=== PATIENT | male | born 1950 | race Caucasian/White ===

== ENCOUNTER → 2016-03-21 | Outpatient (CLI) | payer MEDICARE ==
[2016-03-21 10:56] LABS: ALT 33 U/L (21-72); AST 23 U/L (17-59); Alkaline Phosphatase 71 U/L (38-126); Anion Gap 16 mmol/L; Blood Urea Nitrogen 18 mg/dL (9-20); Calcium 9.8 mg/dL (8.4-10.2); Carbon Dioxide 24 mmol/L (22-30); Chloride 104 mmol/L (98-107); Cholesterol 141 mg/dL (<200); Glucose 79 mg/dL (74-99); HDL Cholesterol 33 mg/dL (40-60); Non-African American GFR(MDRD) >60 (>60 ml/min/1.73 sqM); Potassium 4.3 mmol/L (3.5-5.1); Sodium 144 mmol/L (137-145); Total Bilirubin 0.4 mg/dL (0.2-1.3); Total Protein 7.3 g/dL (6.3-8.2); Triglycerides 223 mg/dL (<150)
[2016-03-21 10:58] LABS: Hemoglobin A1C 10.4 % (4.2-6.1)
== END | disposition home or self-care (01) ==
LOC: LABWHC1 09:54
PROVIDERS: ATTEND Internal Medicine Endocrinology, Diabetes & Metabolism
DX: E11.65 Type 2 diabetes mellitus with hyperglycemia (principal); E78.5 Hyperlipidemia, unspecified; I10 Essential (primary) hypertension
CPT/HCPCS: 36415; 80053; 80061; 82043; 83036

== ENCOUNTER → 2016-07-11 | Outpatient (CLI) | payer MEDICARE ==
[2016-07-11 10:37] LABS: Anion Gap 7 mmol/L; Blood Urea Nitrogen 21 mg/dL (9-20); Calcium 9.5 mg/dL (8.4-10.2); Carbon Dioxide 26 mmol/L (22-30); Chloride 104 mmol/L (98-107); Glucose 181 mg/dL (74-99); Non-African American GFR(MDRD) >60 (>60 ml/min/1.73 sqM); Potassium 4.9 mmol/L (3.5-5.1); Sodium 137 mmol/L (137-145)
[2016-07-11 11:50] LABS: Hemoglobin A1C 9.7 % (4.2-6.1)
== END ==
LOC: LABWHC1 09:33
PROVIDERS: ATTEND Internal Medicine
DX: E11.9 Type 2 diabetes mellitus without complications (principal); Z12.5 Encounter for screening for malignant neoplasm of prostate
CPT/HCPCS: 80048; 83036; 36415; G0103

== ENCOUNTER → 2016-11-08 | Outpatient (CLI) | payer MEDICARE ==
[2016-11-08 08:34] LABS: Anisocytosis Slight; Basophils % (A) 0 %; CH 29.5; CHCM 32.5; Eosinophils % (A) 1 %; HCT 38.9 % (39.0-53.0); HDW 2.77; HGB 12.3 gm/dL (13.0-17.5); Luc % (Auto) 2; Lymphocytes # (A) 1.4 k/uL (1.0-4.8); Lymphocytes % (A) 15 %; MCH 28.8 pg (25.0-35.0); MCHC 31.6 g/dL (31.0-37.0); MCV 91.2 fL (80.0-100.0); Mean Platelet Volume 8.7; Monocytes # (A) 0.4 k/uL (0-1.0); Monocytes % (A) 5 %; Neutrophils # (A) 7.2 k/uL (1.3-7.7); Neutrophils % (A) 77 %; RBC 4.27 m/uL (4.30-5.90); RDW 16.1 % (11.5-15.5); WBC 9.3 k/uL (3.8-10.6); WBC (Perox) 9.88
[2016-11-08 08:50] LABS: Anion Gap 11 mmol/L; Blood Urea Nitrogen 17 mg/dL (9-20); Calcium 8.7 mg/dL (8.4-10.2); Carbon Dioxide 27 mmol/L (22-30); Chloride 105 mmol/L (98-107); Cholesterol 158 mg/dL (<200); Glucose 71 mg/dL (74-99); HDL Cholesterol 37 mg/dL (40-60); Non-African American GFR(MDRD) >60 (>60 ml/min/1.73 sqM); Sodium 143 mmol/L (137-145)
[2016-11-08 14:36] LABS: Hemoglobin A1C 7.2 % (4.2-6.1)
== END | disposition home or self-care (01) ==
LOC: LABWHC1 08:07
PROVIDERS: ATTEND Podiatrist
DX: E13.621 Other specified diabetes mellitus with foot ulcer (principal); E78.5 Hyperlipidemia, unspecified
CPT/HCPCS: 36415; 80048; 80061; 83036; 84134; 85025

== ENCOUNTER → 2017-05-11 | Outpatient (CLI) | payer MEDICARE ==
--- NOTE | 2017-05-11 10:55 | US ---
LOWER EXTREMITY VENOUS INSUFFICIENCY SIDE PERFORMED: bilateral Morbidly obese patient with swelling bilateral worse on left. 1) Color flow is present and patency is documented in the following vessels. No DVT or SVT is noted . EIV Common Femoral Vein Deep Femoral Vein Femoral Vein Popliteal Vein Proximal Calf Veins-not seen due to obesity and swelling Greater Saph Vein Upper Small Saph Vein 2) There is venous reflux noted at the following venous levels: Right: mild in CFV Left: DFV, Popliteal v, SSV IMPRESSION: 1. No evidence of deep venous thrombosis or superficial venous thrombosis within the bilateral lower extremities. Note there is nonvisualization of the proximal calf veins due to patient body habitus. 2. Venous reflux noted on the right within the common femoral vein and on the left within the deep fe moral vein, popliteal vein and small saphenous vein.
--- NOTE | 2017-05-13 10:37 | P.ARTDOP ---
Arterial Doppler LOWER EXTREMITY ARTERIAL DOPPLER: DATE OF SERVICE: 05/11/2017 Reason for study: Ulcers bilateral lower extremities right foot and left leg. Doppler waveforms: Multiphasic bilaterally throughout. Pulse volume recording: Normal configuration. Pressure gradients: None. Ankle-brachial indices: Greater than 1 bilaterally. Toe pressures: [] on the right, [] on the left Impression: Normal study.
== END | disposition home or self-care (01) ==
LOC: RADUSWWP 08:56
PROVIDERS: ATTEND Podiatrist
DX: I87.8 Other specified disorders of veins (principal); M86.8X8 Other osteomyelitis, other site
CPT/HCPCS: 93923; 93970

== ENCOUNTER 2017-05-15 10:10 | Inpatient (IN) | payer MEDICARE ==
[2017-05-15] MEDS ORDERED: SODIUM CHLORIDE 0.9% 500 ML IV SCH (11:15)
[2017-05-15] MEDS ORDERED: PIPERACILLIN-TAZOBACTAM 3.375 GM in DEXTROSE/WATER 1 50ML.BAG IVPB STA (11:17)
--- NOTE | 2017-05-15 11:17 | ED ---
General Adult HPI - General Chief complaint: Wound/Laceration Stated complaint: INFECTION RT FOOT Time Seen by Provider: 05/15/17 10:40 Source: patient, family, RN notes reviewed Mode of arrival: wheelchair Limitations: physical limitation - History of Present Illness Initial comments: Patient is a pleasant [age]-year-old male presenting to the emergency Department with right foot infection. Patient does have history of multiple previous foot problems. Patient did have an ulcer. Patient does go regulate to wound center. Patient had also removed today and large amount of pus came out. Patient did have tracking to almost the midfoot on the plantar portion. Patient had the foot packed by Dr. Holley. Patient was advised come to the emergency department for IV antibiotics. - Related Data Home Medications Medication Instructions Recorded Confirmed Aspirin 81 mg PO DAILY 11/10/14 05/15/17 Benazepril/Hydrochlorothiazide 1 tab PO DAILY 11/10/14 05/15/17 [Lotensin Hct 20-12.5 mg Tablet] Insulin Aspart Protam & Aspart 83 unit SQ AC-TID 11/10/14 05/15/17 [NovoLOG MIX 70-30 Flexpen] diphenhydrAMINE HCL [Benadryl] 25 mg PO DAILY 11/10/14 05/15/17 metFORMIN HCL [Glucophage] 1,000 mg PO BID 11/10/14 05/15/17 Ibuprofen [Motrin] 800 mg PO TID PRN 04/03/17 05/15/17 Atorvastatin Calcium [Lipitor] 20 mg PO DAILY 05/15/17 05/15/17 Furosemide [Lasix] 20 mg PO DAILY 05/15/17 05/15/17 Allergies Allergy/AdvReac Type Severity Reaction Status Date / Time No Known Allergies Allergy Verified 05/15/17 10:45 Review of Systems ROS Statement: Those systems with pertinent positive or pertinent negative responses have been documented in the HPI. ROS Other: All systems not noted in ROS Statement are negative. Constitutional: Denies: fever, chills Eyes: Denies: eye pain ENT: Denies: ear pain Respiratory: Denies: cough Cardiovascular: Denies: chest pain Endocrine: Denies: fatigue Gastrointestinal: Denies: abdominal pain Genitourinary: Denies: dysuria Musculoskeletal: Denies: back pain Skin: Reports: rash Past Medical History Past Medical History: Diabetes Mellitus, Hyperlipidemia, Hypertension Additional Past Medical History / Comment(s): chronic wound History of Any Multi-Drug Resistant Organisms: MRSA Date of last positivie culture/infection: 12/22/2014 MDRO Source:: left leg Past Surgical History: Heart Catheterization, Hernia Repair Additional Past Surgical History / Comment(s): bilateral great toes amputated, 2nd toe lt foot partial amputation Past Anesthesia/Blood Transfusion Reactions: No Reported Reaction Past Psychological History: No Psychological Hx Reported Smoking Status: Light tobacco smoker Past Alcohol Use History: Occasional Past Drug Use History: None Reported - Past Family History Father Family Medical History: Cancer Additional Family Medical History / Comment(s): brain cancer Mother Additional Family Medical History / Comment(s): glaucoma General Exam Limitations: physical limitation General appearance: alert, in no apparent distress, obese Head exam: Present: atraumatic Eye exam: Present: normal appearance, PERRL ENT exam: Present: normal oropharynx Neck exam: Present: normal inspection Respiratory exam: Present: normal lung sounds bilaterally Cardiovascular Exam: Present: regular rate, normal rhythm Expanded Peripheral pulses: 1+: Dorsalis Pedis (R) GI/Abdominal exam: Present: soft. Absent: tenderness Extremities exam: Present: other (Right foot with cellulitis extending to the proximal foot on the dorsal side. Plantar lateral distal foot with ulcer with packing present. Patient does have previous amputations. Cap refill less than 2 seconds.) Neurological exam: Present: alert Psychiatric exam: Present: normal affect, normal mood Skin exam: Present: erythema Course Vital Signs 05/15/17 05/15/17 10:26 11:39 Temperature 97.6 F Pulse Rate 65 Respiratory 18 Rate Blood Pressure 210/79 155/65 O2 Sat by Pulse 99 Oximetry - Reevaluation(s) Reevaluation #1: 05/15/17 12:31 Patient does not meet sepsis criteria at this time. Medical Decision Making - Medical Decision Making Case discussed in detail with Dr. Benson, who will admit his patient with consult with Dr. Greco. He does recommend continuing Zosyn and adding vancomycin. Patient updated. - Lab Data Result diagrams: 05/15/17 11:02 05/15/17 11:02 Lab Results 05/15/17 05/15/17 05/15/17 Range/Units 11:02 11:02 11:02 WBC 8.8 (3.8-10.6) k/uL RBC 4.08 L (4.30-5.90) m/uL Hgb 11.7 L (13.0-17.5) gm/dL Hct 35.4 L (39.0-53.0) % MCV 86.6 (80.0-100.0) fL MCH 28.7 (25.0-35.0) pg MCHC 33.1 (31.0-37.0) g/dL RDW 15.2 (11.5-15.5) % Plt Count 255 (150-450) k/uL Neutrophils % 73 % Lymphocytes % 16 % Monocytes % 6 % Eosinophils % 3 % Basophils % 0 % Neutrophils # 6.4 (1.3-7.7) k/uL Lymphocytes # 1.4 (1.0-4.8) k/uL Monocytes # 0.5 (0-1.0) k/uL Eosinophils # 0.2 (0-0.7) k/uL Basophils # 0.0 (0-0.2) k/uL PT (9.0-12.0) sec INR (<1.2) APTT (22.0-30.0) sec Sodium 142 (137-145) mmol/L Potassium 5.2 H (3.5-5.1) mmol/L Chloride 105 (98-107) mmol/L Carbon Dioxide 26 (22-30) mmol/L Anion Gap 11 mmol/L BUN 25 H (9-20) mg/dL Creatinine 0.80 (0.66-1.25) mg/dL Est GFR (MDRD) Af Amer >60 (>60 ml/min/1.73 sqM) Est GFR (MDRD) Non-Af >60 (>60 ml/min/1.73 sqM) Glucose 199 H (74-99) mg/dL Plasma Lactic Acid Ata 1.8 (0.7-2.0) mmol/L Calcium 9.7 (8.4-10.2) mg/dL Total Bilirubin 0.4 (0.2-1.3) mg/dL AST 18 (17-59) U/L ALT 24 (21-72) U/L Alkaline Phosphatase 87 (38-126) U/L Total Protein 7.6 (6.3-8.2) g/dL Albumin 4.1 (3.5-5.0) g/dL 05/15/17 Range/Units 11:02 WBC (3.8-10.6) k/uL RBC (4.30-5.90) m/uL Hgb (13.0-17.5) gm/dL Hct (39.0-53.0) % MCV (80.0-100.0) fL MCH (25.0-35.0) pg MCHC (31.0-37.0) g/dL RDW (11.5-15.5) % Plt Count (150-450) k/uL Neutrophils % % Lymphocytes % % Monocytes % % Eosinophils % % Basophils % % Neutrophils # (1.3-7.7) k/uL Lymphocytes # (1.0-4.8) k/uL Monocytes # (0-1.0) k/uL Eosinophils # (0-0.7) k/uL Basophils # (0-0.2) k/uL PT 10.2 (9.0-12.0) sec INR 1.0 (<1.2) APTT 24.1 (22.0-30.0) sec Sodium (137-145) mmol/L Potassium (3.5-5.1) mmol/L Chloride (98-107) mmol/L Carbon Dioxide (22-30) mmol/L Anion Gap mmol/L BUN (9-20) mg/dL Creatinine (0.66-1.25) mg/dL Est GFR (MDRD) Af Amer (>60 ml/min/1.73 sqM) Est GFR (MDRD) Non-Af (>60 ml/min/1.73 sqM) Glucose (74-99) mg/dL Plasma Lactic Acid Ata (0.7-2.0) mmol/L Calcium (8.4-10.2) mg/dL Total Bilirubin (0.2-1.3) mg/dL AST (17-59) U/L ALT (21-72) U/L Alkaline Phosphatase (38-126) U/L Total Protein (6.3-8.2) g/dL Albumin (3.5-5.0) g/dL - Radiology Data Radiology results: image reviewed (X-ray right foot: Correlate for cellulitis.) Disposition Clinical Impression: Cellulitis Disposition: ADMITTED IP TO THIS [facility] Referrals: Roscoe Benson MD [Primary Care Provider] - 1-2 days Decision Time: 12:31
[2017-05-15 11:20] LABS: Basophils % (A) 0 %; Eosinophils # (A) 0.2 k/uL (0-0.7); Eosinophils % (A) 3 %; HCT 35.4 % (39.0-53.0); HGB 11.7 gm/dL (13.0-17.5); Lymphocytes # (A) 1.4 k/uL (1.0-4.8); Lymphocytes % (A) 16 %; MCH 28.7 pg (25.0-35.0); MCHC 33.1 g/dL (31.0-37.0); MCV 86.6 fL (80.0-100.0); Mean Platelet Volume 8.3; Monocytes # (A) 0.5 k/uL (0-1.0); Monocytes % (A) 6 %; Neutrophils # (A) 6.4 k/uL (1.3-7.7); Neutrophils % (A) 73 %; Platelet Count 255 k/uL (150-450); RBC 4.08 m/uL (4.30-5.90); RDW 15.2 % (11.5-15.5); WBC 8.8 k/uL (3.8-10.6)
[2017-05-15 11:30] LABS: ALT 24 U/L (21-72); AST 18 U/L (17-59); Albumin 4.1 g/dL (3.5-5.0); Alkaline Phosphatase 87 U/L (38-126); Anion Gap 11 mmol/L; Blood Urea Nitrogen 25 mg/dL (9-20); Calcium 9.7 mg/dL (8.4-10.2); Carbon Dioxide 26 mmol/L (22-30); Chloride 105 mmol/L (98-107); Glucose 199 mg/dL (74-99); Potassium 5.2 mmol/L (3.5-5.1); Sodium 142 mmol/L (137-145); Total Bilirubin 0.4 mg/dL (0.2-1.3); Total Protein 7.6 g/dL (6.3-8.2)
--- NOTE | 2017-05-15 11:48 | XR ---
EXAMINATION TYPE: XR foot complete RT DATE OF EXAM: 05/15/2017 COMPARISON: NONE HISTORY: Infection along the plantar surface of the foot TECHNIQUE: Three views are submitted. FINDINGS: Previous amputation of the first digit noted. There is marked deformity of the third digit which appe ars chronic. Diffuse soft tissue swelling noted. Soft tissue ossification adjacent to the base of the fifth digit. Appears to be a small ulceration adjacent to the fifth digit but no osseous destruction or cortical erosion. IMPRESSION: 1. Correlate for cellulitis.
[2017-05-15 12:11] LABS: Partial Thromboplastin Time 24.1 sec (22.0-30.0); Prothrombin Time 10.2 sec (9.0-12.0)
[2017-05-15] MEDS ORDERED: NALOXONE 0.4 MG/ML 1 ML VIAL IV PRN (12:31)
[2017-05-15] MEDS ORDERED: VANCOMYCIN IV PER PHARMACY 1 EACH MISC MISCELLANE PRN (12:32)
[2017-05-15] MEDS ORDERED: IBUPROFEN 800 MG TAB PO PRN (13:46)
[2017-05-15] MEDS ORDERED: diphenhydrAMINE 25 MG CAP PO PRN (13:46)
[2017-05-15 13:53] LABS: Glucose,Whole Blood 141 mg/dL (75-99)
[2017-05-15] MEDS: SODIUM CHLORIDE 0.9% 1,000 ML IV SCH (13:58)
[2017-05-15] MEDS: VANCOMYCIN 2,250 MG in SODIUM CHLORIDE 0.9% 500 ML IVPB SCH (15:28)
--- NOTE | 2017-05-15 16:53 | CONS ---
CONSULTATION DATE OF SERVICE: 05/15/2017 REASON FOR CONSULTATION: Right diabetic foot infection. HISTORY OF PRESENT ILLNESS: The patient is a 66-year-old male who currently is being followed at [facility] by Dr. Holley for a wound on the plantar aspect of his right foot at the base of the fifth toe that apparently has been going on for almost a month. The patient did develop a blister on the right foot lateral border at the base of the fifth toe for the last 2 days. It is not very clear how it started, with no new shoes. He also has significant swelling and redness on the dorsum of his right foot. The patient was evaluated by Dr. Holley in the wound care center today, and when he took the skin of the blister off, he noted a wound that was out significantly deep to almost 5 cm. Patient did have drainage of pus. Wound cultures were obtained. Because of cellulitis, patient was sent to the [facility] ER for admission. The patient was evaluated by the ER physician, where the patient had an x-ray which showed evidence of cellulitis but no bony changes. The patient denies any high-grade fever. He did have a low-grade fever of 99 in the ER and white count normal at 8.8. He was started on broad-spectrum antibiotics in the form of vancomycin and Zosyn because of previous history of MRSA infection and admitted to hospital. ID was consulted for further recommendations regarding antibiotic therapy. The patient does have underlying diabetic neuropathy and is unable to feel any sensation on the right foot; hence no pain. REVIEW OF SYSTEMS: CONSTITUTIONAL: Positive for weakness. No high-grade fever. EYES: No complaint. ENT: No complaint. RESPIRATORY: No complaint. CARDIOVASCULAR: No complaint. GENITOURINARY: No complaint. GASTROINTESTINAL: No complaint. MUSCULOSKELETAL: As per HPI. INTEGUMENTARY: As per HPI. PSYCHOLOGICAL: No complaint. ENDOCRINE: No complaint. NEUROLOGICAL: No complaint. PAST MEDICAL HISTORY: 1. Diabetes mellitus. 2. Hypertension. 3. Hyperlipidemia. 4. Previous diabetic foot infection. 5. MRSA. PAST SURGICAL HISTORY: 1. Hernia repair. 2. Heart catheterization. 3. Bilateral great toe amputations because of osteomyelitis. SOCIAL HISTORY: He is , lives with his . Patient drinks alcohol. Light tobacco smoker cigarettes per day. FAMILY HISTORY: Father with history of brain cancer. Mother with history of glaucoma. ALLERGIES: NO KNOWN DRUG ALLERGIES. MEDICATIONS: The patient is currently on: 1. Aspirin. 2. Lipitor. 3. Benadryl. 4. Lasix. 5. Zestoretic. 6. Motrin. 7. NovoLog. 8. Glucophage. 9. Piperacillin tazobactam. 10.Vancomycin, Pharmacy to dose. PHYSICAL EXAMINATION: Blood pressure is 154/67 with a pulse of 74, temperature 97.4. He is 95% on room air. General description is a middle-aged male up in the bed in no distress. No tachypnea or accessory muscle of respiration use. HEENT examination shows slight pallor. No scleral icterus. Oral mucosa membrane is moist. No pharyngeal erythema or thrush. NECK: Trachea is central. No thyromegaly. LUNGS: Unlabored breathing. Clear to auscultation. No wheeze or crackle. HEART: S1, S2. Regular rate and rhythm. No loud murmur. ABDOMEN: Soft. No tenderness. No organomegaly. EXTREMITIES: Some trace edema of feet. EXAMINATION OF THE RIGHT FOOT: On the plantar aspect he did have a wound at the base of the fifth toe. No purulence was noticed. Slight blood drainage on pressure. Not foul- smelling. Neurologically patient is awake, alert, oriented x3. Mood and affect normal. LABS: Hemoglobin is 11.7, white count 8.8 with a BUN of 25, creatinine 0.80. Wound culture obtained and currently pending. X-rays were negative for any bony changes. DIAGNOSTIC IMPRESSION AND PLAN: Patient with right diabetic foot infection with wound on the plantar aspect and abscess, status post drainage. The patient has a previous history of MRSA infection; could be either MRSA or underlying diabetes. A polymicrobial infection is not entirely excluded, including Gram-negatives. PLAN: 1. Local wound care with Aquacel Silver packing daily, depending upon the drainage. 2. Patient will be given vancomycin, Pharmacy to dose. Target trough of 15. Also Zosyn to cover for the possible pathogen. 3. Will need to monitor his kidney function very closely to prevent any nephrotoxicity with Vancomycin. 4. Depending upon his clinical response as well as cultures, we will determine his discharge antibiotics. Thank you for this consultation. Will follow this patient along with you. MMODL / IJN: [id number] /
[2017-05-15 17:28] LABS: Glucose,Whole Blood 167 mg/dL (75-99)
[2017-05-15] MEDS: INSULN ASP PRT/INSULIN ASPART 100 UNIT/ML 10 ML VIAL SQ SCH (17:44)
[2017-05-15] MEDS: metFORMIN 500 MG TAB PO SCH (21:19)
[2017-05-15] MEDS: PIPERACILLIN-TAZOBACTAM 3.375 GM in DEXTROSE/WATER 1 50ML.BAG IVPB SCH (21:19)
[2017-05-15 21:36] LABS: Glucose,Whole Blood 142 mg/dL (75-99)
[2017-05-16] MEDS: PIPERACILLIN-TAZOBACTAM 3.375 GM in DEXTROSE/WATER 1 50ML.BAG IVPB SCH ×3 (04:32→21:01)
[2017-05-16] MEDS: SODIUM CHLORIDE 0.9% 1,000 ML IV SCH ×2 (04:34→16:40)
[2017-05-16 07:32] LABS: Glucose,Whole Blood 180 mg/dL (75-99)
[2017-05-16] MEDS: VANCOMYCIN 2,250 MG in SODIUM CHLORIDE 0.9% 500 ML IVPB SCH ×2 (07:57→17:45)
[2017-05-16] MEDS: metFORMIN 500 MG TAB PO SCH ×2 (08:00→21:01)
[2017-05-16] MEDS: ATORVASTATIN 20 MG TAB PO SCH (08:00)
[2017-05-16] MEDS: ASPIRIN 81 MG PO SCH (08:00)
[2017-05-16] MEDS: FUROSEMIDE 20 MG TAB PO SCH (08:00)
[2017-05-16] MEDS: LISINOPRIL-HCTZ 20-12.5 MG 1 EACH TAB PO SCH (08:00)
[2017-05-16] MEDS: INSULN ASP PRT/INSULIN ASPART 100 UNIT/ML 10 ML VIAL SQ SCH ×3 (08:05→17:45)
[2017-05-16 10:48] LABS: Anion Gap 14 mmol/L; Blood Urea Nitrogen 20 mg/dL (9-20); Calcium 9.4 mg/dL (8.4-10.2); Carbon Dioxide 21 mmol/L (22-30); Chloride 101 mmol/L (98-107); Glucose 238 mg/dL (74-99); Potassium 4.9 mmol/L (3.5-5.1); Sodium 136 mmol/L (137-145)
--- NOTE | 2017-05-16 11:57 | HP ---
HISTORY AND PHYSICAL DATE OF SERVICE: 05/15/2017. CHIEF COMPLAINT: Infection, right foot. HISTORY OF PRESENT ILLNESS: This gentleman has had chronic ulcerations in the feet. His daughter noticed that the patient had a blister at the base of the right fifth toe. The patient is normally seen at the Wound Center on Thursday, then he was seen there by Dr. Holley, who apparently incised and there was significant drainage. The patient had purulent drainage. The patient had some packing done and sent to the ER for admission to the hospital for IV antibiotics. The patient has some evidence of cellulitis of the right foot. The patient has history of diabetes mellitus with associated peripheral neuropathy. He also has chronic ulcerations of the feet. He has an amputation of a toe on the left foot. The patient seen in the ER. X-ray shows no evidence to suggest osteomyelitis. Suggestion of inflammation of the tissues and cellulitis. The patient had no fever, chills. No leukocytosis. He does have chronic stasis changes in the lower leg. His left leg also has an ulceration for which he has an Unna boot wrapping. PAST MEDICAL HISTORY: Significant for chronic venostasis with venostasis ulcerations. The patient has had a history of diabetes, long-standing history of hypertension, long-standing. He has had a previous history of coronary arthrosclerosis with no major interventions. No history of any liver disease, kidney disease, ulcers, TB, hepatitis, rheumatic fever, myocardial infarction, CVA. The patient does have a history of degenerative arthritis and also has a history of peripheral neuropathy related to diabetes mellitus. Previous peripheral arterial circulation evaluation on 05/11/2017 had shown right brachial index to be 1.01, left side 0.89. PAST SURGICAL HISTORY: Significant surgery for the feet. Multiple debridements. The patient has had a right first digit amputation. PERSONAL HISTORY: Ex-smoker, alcohol none. ALLERGIES: None known. MEDICATIONS INCLUDE: 1. Ibuprofen 800 t.i.d. p.r.n. 2. Metformin 1000 b.i.d. 3. Benadryl 25 daily. 4. NovoLog 70/30 eighty-three units t.i.d. 5. Lasix 20 daily. 6. Benazepril hydrochlorothiazide 20-12.5 one daily. 7. Lipitor 20 daily. 8. Aspirin 81 daily. SOCIAL HISTORY: Patient is , lives at home with his daughter. She has his house. FAMILY MEDICAL HISTORY: Had a brother, recent sudden . REVIEW OF SYSTEMS: NEURO: Denies any headaches, dizziness. No double vision, blurred vision. No symptoms of TIA, syncope, seizures. PSYCH: No anxiety, depression. CARDIAC: No chest pain, angina, palpitation. RESPIRATORY: No shortness of breath, cough, hemoptysis. GI: No nausea, vomiting, abdominal pain, diarrhea, constipation. : No symptoms of dysuria, hematuria, urgency, frequency. EXTREMITIES: No pain. CONSTITUTIONAL: No fever, chills. PHYSICAL EXAMINATION: Pleasant gentleman in no distress. Vital signs revealed temperature 97.4, pulse 74, respirations 18, blood pressure 154/67, pulse ox of 95% on room air. HEENT: Normocephalic. NECK: Supple. No JVD. No carotid bruits. Chest examination is clear to auscultation and percussion. Mild generalized decreased air flow. CARDIAC: Distant heart sounds, S1, S2 with no gallops, murmurs. ABDOMEN: Soft, obese. Bowel sounds present. Extremities reveal chronic stasis changes right leg. The patient has dry scaly skin, almost about two-thirds the way up of proximal to the ankle. The right foot has some increased erythema. Wound is not inspected. It was just dressed by Dr. Del Rosario just prior to my evaluation. The patient has some warmth and erythema on the right foot; however, minimal tenderness. The patient does have evidence of peripheral neuropathy. He does have palpable pedal dorsalis pedis. Neurologically awake, alert, oriented x3 with well-coordinated movements. Left foot is in a dry dressing, Unna boot-type. LABORATORY ASSESSMENT: White count 8.8, hemoglobin 11.7, platelets normal. PT, PTT is normal. Potassium 5.2, BUN 25, creatinine 0.8, glucose 199. Liver enzymes normal. Albumin 4.1. ASSESSMENT: 1. Infected foot ulcer/diabetic ulcer. 2. Chronic venostasis. 3. Peripheral neuropathy. 4. Diabetes mellitus. 5. Hypertension. 6. Obesity. 7. Mild anemia. PLAN: The patient at present is started on Zosyn and vancomycin. Will continue this. ID has seen the patient and recommended the same antibiotics until culture results come back. The dressings done by Dr. Del Rosario today. He has recommended Aquacel AG packings. Patient's condition is discussed with the patient. I had a long serious discussion with the patient regarding his personal hygiene. He has been noted in the past also to wear very dirty socks which are wet at times. Patient's shoes also are not in good condition. The patient needs better personal hygiene and he is in agreement with that. The patient not offended with the discussion. He is willing to change that. His daughter has not been very helpful to him and he is going to have a discussion with her regarding that and I have told the patient that I would be willing to talk to the daughter too about it. MMODETTEL / IJN: [id number] /
[2017-05-16 12:24] LABS: Glucose,Whole Blood 167 mg/dL (75-99)
--- NOTE | 2017-05-16 15:54 | PN ---
PROGRESS NOTE DATE OF SERVICE: 05/16/2017 REASON FOR FOLLOWUP: Right diabetic foot infection with an abscess. INTERVAL HISTORY: The patient is afebrile, he is breathing comfortably. Denies having any chest pain, shortness of breath, cough. No abdominal pain with some in the right foot area. PHYSICAL EXAMINATION: Blood pressure is 122/85 with a pulse of 80, temperature of 98.5. He is 95% on room air. General description is a middle-aged male, lying in bed in no distress. RESPIRATORY SYSTEM: Unlabored breathing, clear to auscultation anteriorly. HEART: S1, S2. Regular rate and rhythm. ABDOMEN: Soft, no tenderness. Right foot is currently dressed up, no obvious drainage on the dressing. LABS: BUN of 20, creatinine 0.78. Blood culture negative. Culture done in the OR showing presumptive Staph aureus. DIAGNOSTIC IMPRESSION AND PLAN: Patient with right diabetic foot infection with an abscess. The culture now showing presumptive Staph aureus, could be like methicillin-resistant Staphylococcus aureus. Currently covered with vancomycin that will be continued, watching the kidney function closely. Obtain a bone scan to measure evidence of any lying bone function and need for outpatient IV antibiotic therapy. Continue supportive care. MMODL / IJN: [id number] /
[2017-05-16 17:13] LABS: Glucose,Whole Blood 153 mg/dL (75-99)
[2017-05-16 21:35] LABS: Glucose,Whole Blood 126 mg/dL (75-99)
[2017-05-17] MEDS: PIPERACILLIN-TAZOBACTAM 3.375 GM in DEXTROSE/WATER 1 50ML.BAG IVPB SCH ×2 (04:40→12:50)
[2017-05-17] MEDS: SODIUM CHLORIDE 0.9% 1,000 ML IV SCH ×2 (04:40→17:52)
[2017-05-17 07:05] LABS: Glucose,Whole Blood 92 mg/dL (75-99)
[2017-05-17] MEDS: ATORVASTATIN 20 MG TAB PO SCH (08:09)
[2017-05-17] MEDS: LISINOPRIL-HCTZ 20-12.5 MG 1 EACH TAB PO SCH (08:09)
[2017-05-17] MEDS: FUROSEMIDE 20 MG TAB PO SCH (08:09)
[2017-05-17] MEDS: VANCOMYCIN 2,250 MG in SODIUM CHLORIDE 0.9% 500 ML IVPB SCH ×2 (08:09→16:38)
[2017-05-17] MEDS: ASPIRIN 81 MG PO SCH (08:09)
[2017-05-17] MEDS: INSULN ASP PRT/INSULIN ASPART 100 UNIT/ML 10 ML VIAL SQ SCH ×3 (08:10→17:52)
[2017-05-17 09:23] LABS: HCT 33.5 % (39.0-53.0); HGB 10.8 gm/dL (13.0-17.5); MCH 28.8 pg (25.0-35.0); MCHC 32.3 g/dL (31.0-37.0); Mean Platelet Volume 7.4; Platelet Count 241 k/uL (150-450); RBC 3.76 m/uL (4.30-5.90); RDW 15.1 % (11.5-15.5); WBC 10.5 k/uL (3.8-10.6)
[2017-05-17 09:34] LABS: Anion Gap 12 mmol/L; Blood Urea Nitrogen 24 mg/dL (9-20); C Reactive Protein 53.5 mg/L (<10.0); Calcium 9.1 mg/dL (8.4-10.2); Carbon Dioxide 23 mmol/L (22-30); Chloride 103 mmol/L (98-107); Glucose 181 mg/dL (74-99); Potassium 4.1 mmol/L (3.5-5.1); Sodium 138 mmol/L (137-145)
[2017-05-17 11:24] LABS: Erythrocyte Sedimentation Rate 101 mm/hr (0-15)
[2017-05-17 11:51] LABS: Glucose,Whole Blood 202 mg/dL (75-99)
[2017-05-17] MEDS: metFORMIN 500 MG TAB PO SCH ×2 (12:50→22:29)
--- NOTE | 2017-05-17 13:15 | P.PN ---
Subjective Progress Note Date: 05/17/17 Principal diagnosis: Cellulitis right foot diabetic ulcer 66-year-old gentleman admitted to the hospital with a right foot ulcer with significant drainage and associated cellulitis. The patient's ulcer is at the base of the fifth toe. Some very small opening. There is no drainage on squeezing around however his dressing is soaked. There is no odor. Erythema is reduced and the patient has no increased warmth. He has no pain or tenderness on because of his neuropathy. The patient does ask edema lower legs. Blood sugars adequately controlled. Is undergoing a bone scan to rule out a osteomyelitis x-ray was not indicative of REVIEW OF SYSTEMS: Neuro: Denies any headaches dizziness. Psych: Denies anxiety depression feels oriented. Cardiac: Denies chest pain and angina palpitations. Respiratory: Denies shortness of breath cough. GI: Denies nausea vomiting or abdominal pain. No diarrhea or constipation, no bowel movement yet. : Denies dysuria hematuria. Extremities: Denies pain and some vomiting Skin: Right foot ulceration. Constitutional: No fever, chills. Objective - Vital Signs Vital signs: Vital Signs Temp 97.5 F L 05/17/17 07:00 Pulse 65 05/17/17 07:00 Resp 16 05/17/17 07:00 BP 140/76 05/17/17 07:00 Pulse Ox 95 05/17/17 07:00 Intake & Output 05/16/17 05/17/17 05/17/17 18:59 06:59 18:59 Intake Total 550 1000 Balance 550 1000 Intake: Intake, IV Titration 550 1000 Amount Piperacillin-Tazobactam 3 50 .375 gm In Dextrose/Water 1 50ml.bag @ 12.5 mls/hr IVPB Q8H SINDHU Rx#: [id number] Sodium Chloride 0.9% 1, 1000 000 ml @ 75 mls/hr IV . [id number] SINDHU Rx#:[id number] Vancomycin 2,250 mg In 500 Sodium Chloride 0.9% 500 ml @ 167 mls/hr IVPB BID@ 0800,1700 SINDHU Rx#: [id number] Other: Voiding Method Toilet # Voids 1 PHYSICAL EXAMINATION: Cooperative, at present in no acute distress. HEENT: Neck supple. No JVD. Chest: Clear to auscultation percussion. Cardiac: Normal S1-S2 no gallops no murmur . Abdomen: Soft bowel sounds present. Extremities: 1+ edema right lower leg. Lower Left leg has a compressed dressing right foot ulcer as described above no tenderness Neurologically: Awake, alert, oriented with well-coordinated movements. - Labs CBC & Chem 7: 05/17/17 09:01 05/17/17 09:01 Labs: Abnormal Lab Results - Last 24 Hours (Table) 05/16/17 05/16/17 05/17/17 Range/Units 17:10 21:10 09:01 RBC 3.76 L (4.30-5.90) m/uL Hgb 10.8 L (13.0-17.5) gm/dL Hct 33.5 L (39.0-53.0) % ESR 101 H (0-15) mm/hr BUN (9-20) mg/dL Glucose (74-99) mg/dL POC Glucose (mg/dL) 153 H 126 H (75-99) mg/dL C-Reactive Protein (<10.0) mg/L 05/17/17 05/17/17 Range/Units 09:01 11:48 RBC (4.30-5.90) m/uL Hgb (13.0-17.5) gm/dL Hct (39.0-53.0) % ESR (0-15) mm/hr BUN 24 H (9-20) mg/dL Glucose 181 H (74-99) mg/dL POC Glucose (mg/dL) 202 H (75-99) mg/dL C-Reactive Protein 53.5 H (<10.0) mg/L Microbiology - Last 24 Hours (Table) 05/15/17 11:02 Blood Culture - Preliminary Blood No Growth after 24 hours Assessment and Plan Assessment: ASSESSMENT: 1. Diabetic foot ulcer with cellulitis. 2. Peripheral neuropathy. 3. Chronic venous stasis. 4. Hypertension. 5. Obesity. PLAN: Continue present medical regimen with vancomycin and Zosyn. Patient's electrolytes BUN creatinine normal. General condition remains guarded blood sugars are controlled. The cellulitis is improved this is most because of the I &D await cultures results. Gram stain suggestive of Staphylococcus aureus. Await results of the bone scan
--- NOTE | 2017-05-17 15:00 | NM ---
EXAMINATION TYPE: NM bone 3 phase DATE OF EXAM: 05/17/2017 COMPARISON: NONE HISTORY: Right foot wound Triple phase bone scintigraphy was performed following the injection of25.8 mCi Tc 99m MDP. Immediat e images and 5 hours post injection images acquired. FINDINGS: The flow study shows some hyperemia of the right forefoot compared to the left. The delayed images do not show any significant bone uptake to suggest osteomyelitis. IMPRESSION: There is some hyperemia of the right forefoot suggestive of cellulitis. No evidence of osteomyelitis.
[2017-05-17] MEDS ORDERED: MINERAL OIL-WHITE PETROLATUM 120 GM JAR TOPICAL PRN (15:45)
[2017-05-17 17:54] LABS: Glucose,Whole Blood 77 mg/dL (75-99)
[2017-05-17 17:54] LABS: Glucose,Whole Blood 62 mg/dL (75-99)
[2017-05-17 21:41] LABS: Glucose,Whole Blood 112 mg/dL (75-99)
--- NOTE | 2017-05-17 23:01 | PN ---
PROGRESS NOTE DATE OF SERVICE: 05/17/2017. REASON FOR FOLLOWUP: Right diabetic foot infection with an abscess. INTERVAL HISTORY: The patient is afebrile, he seems to be breathing comfortably. Denies having any chest pain, shortness of breath, abdominal pain. The patient did have Coban dressing on his left leg, the blisters apparently got red when he was this morning. EXAMINATION: Blood pressure 149/66 with a pulse of 69, temperature 97.9, he is 96% on room air. GENERAL DESCRIPTION: A middle-aged male lying in bed in no distress. RESPIRATORY SYSTEM: Unlabored breathing. Clear to auscultation anteriorly. HEART: S1, S2. Regular rate and rhythm. ABDOMEN: Soft, no tenderness. LABS: Hemoglobin is 10.8, white count of 10.5, creatinine 0.90. Blood culture has been negative. Wound cultures obtained showing MRSA. DIAGNOSTIC IMPRESSION AND PLAN: 1. Patient with right diabetic foot infection with an abscess. Wound culture positive for MRSA for which the patient is continued on vancomycin, pharmacy to dose. Target of 15. Bone scan has been negative for osteomyelitis. Zosyn will be discontinued. Local wound care with Aquacel Silver dressing. 2. Left leg venous stasis ulcer with 3-layer dressing, with consult for possible aspiration of the leg and wound. Has been advised to remove the right dressing, apply Aquacel Silver to the open area, followed by an Colby wrap. Continue supportive care. MMODL / IJN: [id number] /
[2017-05-18] MEDS ORDERED: VANCOMYCIN TROUGH DUE 1 EACH MISC MISCELLANE ONE (07:00)
[2017-05-18 07:10] VITALS: PULSE 76; TEMP 97.4
[2017-05-18 07:55] LABS: Glucose,Whole Blood 94 mg/dL (75-99)
[2017-05-18] MEDS: INSULN ASP PRT/INSULIN ASPART 100 UNIT/ML 10 ML VIAL SQ SCH ×2 (08:02→12:33)
[2017-05-18] MEDS: FUROSEMIDE 20 MG TAB PO SCH (08:03)
[2017-05-18] MEDS: metFORMIN 500 MG TAB PO SCH (08:03)
[2017-05-18] MEDS: LISINOPRIL-HCTZ 20-12.5 MG 1 EACH TAB PO SCH (08:03)
[2017-05-18] MEDS: ATORVASTATIN 20 MG TAB PO SCH (08:03)
[2017-05-18] MEDS: ASPIRIN 81 MG PO SCH (08:04)
[2017-05-18] MEDS: VANCOMYCIN 2,250 MG in SODIUM CHLORIDE 0.9% 500 ML IVPB SCH (08:07)
[2017-05-18] MEDS: SODIUM CHLORIDE 0.9% 1,000 ML IV SCH (08:08)
[2017-05-18 12:27] LABS: Glucose,Whole Blood 105 mg/dL (75-99)
--- NOTE | 2017-05-18 14:44 | PN ---
PROGRESS NOTE DATE OF SERVICE: 05/18/2017 REASON FOR FOLLOWUP: Right diabetic foot infection with MRSA. INTERVAL HISTORY: The patient is afebrile, he is breathing comfortably. Denies having any chest pain. No cough. No abdominal pain or any pain in the right foot area and no drainage. who changed the dressing mentioned overall wound has decreased in size and no purulence. PHYSICAL EXAMINATION: Blood pressure is 143/75 with a pulse of 76, temperature is 97.4. He is 98% on room air. General description is a middle-aged male, lying in bed in no distress. RESPIRATORY SYSTEM: Unlabored breathing, clear to auscultation anteriorly. HEART: S1, S2. Regular rate and rhythm. ABDOMEN: Soft, no tenderness. Right foot wound plantar site at the base of the fifth toe is dried out with extensive dressing with no surrounding redness or any foul smelling drainage. LABS: No new labs have been obtained today. Wound culture finalized with MRSA. DIAGNOSTIC IMPRESSION AND PLAN: Patient with methicillin-resistant Staphylococcus aureus right diabetic foot infection with an abscess, status post drainage. Patient received about 3 to 4 days of IV vancomycin, he was switched over to Bactrim DS twice a day for another 10 days to 2 weeks with weekly monitoring of BMP and follow up in the office in 1 week. Local wound care with Aquacel Silver packing. MMODL / IJN: [id number] /
[2017-05-18 15:25] VITALS: BP 149/66; RESP 16
--- NOTE | 2017-05-18 20:56 | PN ---
PROGRESS NOTE ATTENDING PHYSICIAN: Dr. Fabio Benson. CHIEF COMPLAINT: Re-evaluation. HISTORY OF PRESENT ILLNESS: This is a 66-year-old gentleman who was admitted to the hospital with a right foot ulceration with cellulitis. The patient had a significant purulent drainage. The cultures have come back showing MRSA. The patient has been on vancomycin here. His erythema has resolved. The patient has minimal drainage of purulent drainage. Some serous drainage. The patient has had no fevers. He is actually feeling fairly well. REVIEW OF SYSTEMS: NEURO: Denies any headaches, dizziness, psych no anxiety. Cardiac no chest pain, angina, palpitations. Respiratory: No shortness of breath, cough, hemoptysis. GI no nausea, vomiting, abdominal pain, diarrhea. no symptoms of dysuria or hematuria. Extremities denies pain. Does have some mild chronic edema. Constitutional: No fever or chills. PHYSICAL EXAMINATION: Pleasant gentleman in no distress. Vital signs: Temperature 97.4, pulse 76, respirations 18, blood pressure 143/75, pulse ox 98% on room air. HEENT: Normocephalic. Neck no JVD. CHEST: Clear to auscultation and percussion. Cardiac: Normal S1, S2 with no gallops, murmurs. ABDOMEN: Soft. Bowel sounds present. Protuberant. Extremities reveal chronic edema. Chronic stasis changes. Left lower leg has an Colby wrapping/Unna boot. Right leg the patient has chronic venous stasis changes on the skin with significant scaling. At the foot area the patient has no erythema. As mentioned has serosanguineous drainage. The ulceration which was looked at yesterday was very small, less than 1 cm. LABORATORY ASSESSMENT: Was microbiology showed MRSA. The patient's blood sugars are well controlled. The patient's bone scan was reported negative. ASSESSMENT: 1. Cellulitis right foot. 2. Abscess drained. 3. Peripheral neuropathy. 4. Diabetes mellitus. 5. Obesity. 6. Hypertension. PLAN: The patient at present is stable. I will continue the present medical regimen. We will await ID the final plan upon discharge. If the patient is going to be requiring IV antibiotics, then will have a PICC line. Otherwise, the patient will be discharged home probably on Bactrim. The patient's condition is discussed with the patient. Also with the daughter yesterday regarding improved hygiene and patient care. The patient will follow up on the outpatient, discharge with me as well as continued to be seen at the Wound Center. KATERINA / IJN: [id number] /
[2017-05-19] MEDS ORDERED: VANCOMYCIN 2,000 MG in SODIUM CHLORIDE 0.9% 500 ML IVPB SCH ×2
--- NOTE | 2017-05-19 19:03 | P.DS ---
Providers Date of admission: 05/15/17 12:31 Expected date of discharge: 05/18/17 Attending physician: Roscoe Benson Consults: 05/15/17 13:45 Consult Physician Urgent Consulting Provider: Juan Del Rosario Consult Reason/Comments: Right foot DM ulcer Do you want consulting provider notified?: Already Contacted Primary care physician: Roscoe Benson [facility] Hospital Course: Hospital course: This 66-year-old gentleman was admitted to the hospital from the wound care center. The patient is under the care of Dr. Holley he referred the patient to the emergency room for admission for antibiotic. The patient had presented to him in the wound center with a sudden onset of a blister at the base of his right fifth toe with some erythema and swelling. He did drain the spot in the 1 center. The patient on a small incision had significant purulent drainage which was marked out. The patient has significant peripheral neuropathy and does not have much sense of pain. The patient is underlying history of diabetes mellitus but good pedal pulses. Patient is admitted to the hospital started on IV antibiotics which included vancomycin and Zosyn pending culture results. The patient was also seen by Dr. Cartagena from infectious disease. The patient continued to have some serosanguineous drainage but not purulent. The erythema resolved swelling improved. The patient results came back as MRSA. A bone scan revealed no evidence of osteomyelitis. Patient had no fever or white count. In view of this he is discharged home on Bactrim. He' ll be followed up in the wound Center and we'll see me in the outpatient. He the hospital stay revealed good talk with the patient and daughter regarding importance of hygiene. Patient advised to clean socks and shoes modified for him. Apparently a new pressures has been in work with Dr. Holley. Final diagnosis to include 1. Abscess and cellulitis right foot 2. Diabetic foot ulceration 3. Peripheral neuropathy 4. Essential hypertension 5. Obesity 6. Previous amputation right greater toe 7. Diabetes mellitus type 2 adequately controlled 8. Dyslipidemia Plan - Discharge Summary Discharge Rx Participant: No New Discharge Prescriptions: New Sulfamethox-Tmp 800-160Mg [Bactrim DS 800-160 mg] 1 tab PO Q12HR #28 tab Continue diphenhydrAMINE HCL [Benadryl] 25 mg PO DAILY Benazepril/Hydrochlorothiazide [Lotensin Hct 20-12.5 mg Tablet] 1 tab PO DAILY Aspirin 81 mg PO DAILY metFORMIN HCL [Glucophage] 1,000 mg PO BID Insulin Aspart Protam & Aspart [NovoLOG MIX 70-30 Flexpen] 83 unit SQ AC-TID Ibuprofen [Motrin] 800 mg PO TID PRN PRN Reason: Severe Pain Furosemide [Lasix] 20 mg PO DAILY Atorvastatin Calcium [Lipitor] 20 mg PO DAILY Discharge Medication List Aspirin 81 mg PO DAILY 11/10/14 [History] Benazepril/Hydrochlorothiazide [Lotensin Hct 20-12.5 mg Tablet] 1 tab PO DAILY 11/10/14 [History] Insulin Aspart Protam & Aspart [NovoLOG MIX 70-30 Flexpen] 83 unit SQ AC-TID [History] diphenhydrAMINE HCL [Benadryl] 25 mg PO DAILY 11/10/14 [History] metFORMIN HCL [Glucophage] 1,000 mg PO BID 11/10/14 [History] Ibuprofen [Motrin] 800 mg PO TID PRN 04/03/17 [History] Atorvastatin Calcium [Lipitor] 20 mg PO DAILY 05/15/17 [History] Furosemide [Lasix] 20 mg PO DAILY 05/15/17 [History] Sulfamethox-Tmp 800-160Mg [Bactrim DS 800-160 mg] 1 tab PO Q12HR #28 tab [Rx] Follow up Appointment(s)/Referral(s): Roscoe Benson MD [Primary Care Provider] - 05/20/17 8:45 am Juan Del Rosario MD [STAFF PHYSICIAN] - 05/28/17 9:30 am Ambulatory/Diagnostic Orders: Basic Metabolic Panel [LAB.AMB] Location: Determined By Patient Patient Instructions/Handouts: Cellulitis (DC), Type 2 Diabetes in Adults (DC) Discharge Disposition: HOME SELF-CARE
== END 2017-05-18 16:21 | disposition home or self-care (01) | DRG 638 ==
LOC: EC 10:10 → 4MS4W 12:31
PROVIDERS: ADMIT Internal Medicine; ATTEND Internal Medicine
DX: E11.621 Type 2 diabetes mellitus with foot ulcer (principal); L03.115 Cellulitis of right lower limb; L97.519 Non-pressure chronic ulcer of other part of right foot with unspecified severity; E11.42 Type 2 diabetes mellitus with diabetic polyneuropathy; E11.628 Type 2 diabetes mellitus with other skin complications; B95.62 Methicillin resistant Staphylococcus aureus infection as the cause of diseases classified elsewhere; D64.9 Anemia, unspecified; E66.9 Obesity, unspecified; E78.5 Hyperlipidemia, unspecified; F17.210 Nicotine dependence, cigarettes, uncomplicated; I10 Essential (primary) hypertension; I87.2 Venous insufficiency (chronic) (peripheral); M19.90 Unspecified osteoarthritis, unspecified site; R60.9 Edema, unspecified; Z68.42 Body mass index [BMI] 45.0-49.9, adult; Z79.899 Other long term (current) drug therapy; Z79.4 Long term (current) use of insulin; Z79.82 Long term (current) use of aspirin; Z86.14 Personal history of Methicillin resistant Staphylococcus aureus infection; Z89.412 Acquired absence of left great toe; Z89.411 Acquired absence of right great toe; Z89.432 Acquired absence of left foot
CPT/HCPCS: 10060; 36415; 78315; 80048; 80053; 80202; 83605; 85025; 85027; 85610; 85652; 85730; 86140; 87040; 87070; 87075; 87077; 87186; 87205; 96365; 97597; 99284

== ENCOUNTER → 2017-09-14 | Outpatient (CLI) | payer MEDICARE ==
[2017-09-14 14:14] LABS: HCT 32.8 % (39.0-53.0); HGB 10.8 gm/dL (13.0-17.5); MCH 29.5 pg (25.0-35.0); MCV 89.4 fL (80.0-100.0); Mean Platelet Volume 6.9; Platelet Count 366 k/uL (150-450); RBC 3.67 m/uL (4.30-5.90); RDW 14.4 % (11.5-15.5); WBC 11.1 k/uL (3.8-10.6)
[2017-09-14 14:37] LABS: Albumin 4.3 g/dL (3.5-5.0); Potassium 4.4 mmol/L (3.5-5.1); Total Bilirubin 0.2 mg/dL (0.2-1.3); Total Protein 7.5 g/dL (6.3-8.2)
[2017-09-14 23:43] LABS: Hemoglobin A1C 5.2 % (4.0-6.0)
== END | disposition home or self-care (01) ==
LOC: LABWHC1 12:24
PROVIDERS: ATTEND Surgery Vascular Surgery
DX: E13.620 Other specified diabetes mellitus with diabetic dermatitis (principal); E63.8 Other specified nutritional deficiencies; I87.2 Venous insufficiency (chronic) (peripheral)
CPT/HCPCS: 36415; 80053; 83036; 84134; 85027

== ENCOUNTER 2017-11-09 16:37 | Inpatient (IN) | payer MEDICARE ==
[2017-11-09] MEDS ORDERED: NALOXONE 0.4 MG/ML 1 ML VIAL IV PRN (17:29)
[2017-11-09] MEDS ORDERED: AMPICILLIN-SULBACTAM 3 GM in SODIUM CHLORIDE 0.9% 50 ML IVPB SCH (18:00)
[2017-11-09 18:29] LABS: Basophils # (A) 0.1 k/uL (0-0.2); Basophils % (A) 0 %; Eosinophils # (A) 0.3 k/uL (0-0.7); Eosinophils % (A) 2 %; HCT 31.7 % (39.0-53.0); HGB 9.8 gm/dL (13.0-17.5); Hypochromasia Slight; Lymphocytes # (A) 1.7 k/uL (1.0-4.8); Lymphocytes % (A) 16 %; MCHC 30.8 g/dL (31.0-37.0); MCV 87.6 fL (80.0-100.0); Mean Platelet Volume 6.9; Monocytes # (A) 0.6 k/uL (0-1.0); Monocytes % (A) 6 %; Neutrophils # (A) 7.8 k/uL (1.3-7.7); Neutrophils % (A) 73 %; Platelet Count 466 k/uL (150-450); RBC 3.62 m/uL (4.30-5.90); RDW 14.6 % (11.5-15.5); WBC 10.6 k/uL (3.8-10.6)
[2017-11-09 18:40] LABS: Albumin 3.9 g/dL (3.5-5.0); Calcium 9.6 mg/dL (8.4-10.2); Potassium 5.3 mmol/L (3.5-5.1); Total Bilirubin 0.4 mg/dL (0.2-1.3)
--- NOTE | 2017-11-09 18:48 | ED ---
General Adult HPI - General Chief complaint: Skin/Abscess/Foreign Body Stated complaint: Infection on foot-sent by wound center Time Seen by Provider: 11/09/17 17:11 Source: patient Mode of arrival: wheelchair Limitations: no limitations - History of Present Illness Initial comments: Reid Frost is a 67 yo male with extensive past medical history most significant for right lower extremity amputation and chronic wounds to the left lower extremity. Patient follows in the wound care clinic for his chronic wounds. He has noted progressively worsening redness and tenderness to the left foot which prompted his wound care doctor to send the ER today with the plan for admission for IV antibiotics. Patient reports that the wound is painful, the pain has become worse lately. He denies any fevers chills. Upon arrival the patient is somewhat irritated that he skin have to be admitted to the hospital again, and addition he states that he is hungry he hasn't gone to eat since breakfast because he was at the wound care doctor all day. - Related Data Home Medications Medication Instructions Recorded Confirmed metFORMIN HCL [Glucophage] 1,000 mg PO BID 11/10/14 11/09/17 Insuln Asp Prt/Insulin Aspart 60 unit SQ BID 09/07/17 11/09/17 [NovoLOG MIX 70-30 VIAL] Sulfamethox-Tmp 800-160Mg [Bactrim 1 tab PO Q12HR 11/02/17 11/09/17 DS 800-160 mg] Cetirizine HCl [Zyrtec] 10 mg PO DAILY 11/09/17 11/09/17 Escitalopram Oxalate [Lexapro] 10 mg PO DAILY 11/09/17 11/09/17 Metoclopramide HCl [Reglan] 10 mg PO DAILY 11/09/17 11/09/17 Naproxen Sodium [Aleve] 440 mg PO Q12HR PRN 11/09/17 11/09/17 Safe Tussin 10 ml PO BID PRN 11/09/17 11/09/17 traZODone HCL 25 - 50 mg PO HS 11/09/17 11/09/17 Allergies Allergy/AdvReac Type Severity Reaction Status Date / Time No Known Allergies Allergy Verified 11/09/17 18:23 Review of Systems ROS Statement: Those systems with pertinent positive or pertinent negative responses have been documented in the HPI. ROS Other: All systems not noted in ROS Statement are negative. 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 , states patient able to stand for only a couple minutes - otherwise he is in bed or in chair., occasional GERD., Daughter states current wound on left lower leg. History of Any Multi-Drug Resistant Organisms: MRSA Date of last positivie culture/infection: JUNE 2017 MDRO Source:: RIGHT LEG Past Surgical History: Heart Catheterization Additional Past Surgical History / Comment(s): bilateral great toes amputated, 2nd toe lt foot partial amputation, multiple debridements of venous ulcers, colonoscopy, surgery as a child for undescended testicle., ABOVE THE KNEE AMPUTATION RIGHT LEG (JUNE 2017-[facility]) Past Anesthesia/Blood Transfusion Reactions: No Reported Reaction Past Psychological History: Anxiety, Depression Smoking Status: Current some day smoker Past Alcohol Use History: Occasional Past Drug Use History: None Reported - Past Family History Father Family Medical History: Cancer Additional Family Medical History / Comment(s): Father from brain cancer Mother Family Medical History: Eye Disorder Additional Family Medical History / Comment(s): Glaucoma. Mother is . General Exam Limitations: no limitations General appearance: alert, in no apparent distress Head exam: Present: atraumatic, normocephalic Eye exam: Present: normal appearance, PERRL ENT exam: Present: normal exam Neck exam: Present: full ROM Respiratory exam: Absent: respiratory distress Cardiovascular Exam: Present: regular rate, normal rhythm GI/Abdominal exam: Present: soft. Absent: distended Rectal exam: Present: deferred Extremities exam: Present: other (Right lower extremity amputation, left lower extremity with chronic wounds, worsening redness) Neurological exam: Present: alert, oriented X3 Skin exam: Present: warm, erythema. Absent: normal color Course Vital Signs 11/09/17 11/09/17 11/09/17 16:47 19:04 21:06 Temperature 97.9 F 98.0 F Pulse Rate 68 76 76 Respiratory 18 17 18 Rate Blood Pressure 133/70 177/83 149/80 O2 Sat by Pulse 99 100 98 Oximetry Medical Decision Making - Medical Decision Making Patient care was discussed with Dr. Haddad the patient's wound care doctor who is very familiar with this patient has been providing care for a long period of time - reports the patients wound is worsening and patient needs to be admitted for IV unasyn Patient seen and evaluated, workup ordered fper Dr. Haddad's recommendation Unasyn ordered CT of the foot ordered Labs reviewed, no leukocytosis, chronic anemia, mildly elevated potassium will review the morning The patient noted to be mildly hypoglycemic, again complaining having all day. Patient was given a sandwich and juice Computed tomography scan reveals chronic changes and likely osteomyelitis but no acute gas-forming infection, no abscess Patient was admitted to Dr. Haddad with Dr. Benson on consult per Dr. Haddad's request - Lab Data Result diagrams: 11/09/17 17:22 11/09/17 17:22 Lab Results 11/09/17 11/09/17 Range/Units 17:22 17:22 WBC 10.6 (3.8-10.6) k/uL RBC 3.62 L (4.30-5.90) m/uL Hgb 9.8 L (13.0-17.5) gm/dL Hct 31.7 L (39.0-53.0) % MCV 87.6 (80.0-100.0) fL MCH 27.0 (25.0-35.0) pg MCHC 30.8 L (31.0-37.0) g/dL RDW 14.6 (11.5-15.5) % Plt Count 466 H (150-450) k/uL Neutrophils % 73 % Lymphocytes % 16 % Monocytes % 6 % Eosinophils % 2 % Basophils % 0 % Neutrophils # 7.8 H (1.3-7.7) k/uL Lymphocytes # 1.7 (1.0-4.8) k/uL Monocytes # 0.6 (0-1.0) k/uL Eosinophils # 0.3 (0-0.7) k/uL Basophils # 0.1 (0-0.2) k/uL Hypochromasia Slight Sodium 139 (137-145) mmol/L Potassium 5.3 H (3.5-5.1) mmol/L Chloride 104 (98-107) mmol/L Carbon Dioxide 21 L (22-30) mmol/L Anion Gap 14 mmol/L BUN 22 H (9-20) mg/dL Creatinine 1.20 (0.66-1.25) mg/dL Est GFR (CKD-EPI)AfAm 73 (>60 ml/min/1.73 sqM) Est GFR (CKD-EPI)NonAf 63 (>60 ml/min/1.73 sqM) Glucose 54 L (74-99) mg/dL Calcium 9.6 (8.4-10.2) mg/dL Total Bilirubin 0.4 (0.2-1.3) mg/dL AST 20 (17-59) U/L ALT 25 (21-72) U/L Alkaline Phosphatase 92 (38-126) U/L Total Protein 8.0 (6.3-8.2) g/dL Albumin 3.9 (3.5-5.0) g/dL Disposition Clinical Impression: Osteomyelitis, Diabetic neuropathy, Venous insufficiency of both lower extremities, Chronic ulcer of left leg, limited to breakdown of skin, Cellulitis Disposition: ADMITTED IP TO THIS HOSP
[2017-11-09] MEDS ORDERED: AMPICILLIN-SULBACTAM 3 GM in SODIUM CHLORIDE 0.9% 100 ML IVPB STA (20:08)
[2017-11-09] MEDS ORDERED: AMPICILLIN-SULBACTAM 3 GM in SODIUM CHLORIDE 0.9% 50 ML IVPB ONE (20:15)
--- NOTE | 2017-11-09 20:18 | CT ---
EXAMINATION TYPE: CT foot LT w con DATE OF EXAM: 11/09/2017 COMPARISON: None HISTORY: Left foot pain with redness CT DLP: 282.5 mGycm Automated exposure control for dose reduction was used. CONTRAST: Performed with IV Contrast, patient injected with 100 mL of Isovue 300. FINDINGS: There is moderate plantar and Achilles calcaneal spurring. There is spurring of the anterior talonavi cular joint. There is some thickening of the second metatarsal consistent with old healed fracture. I see no acute fracture. There is spurring at the tarsometatarsal joints. I see no focal bone destruct ion. Ankle mortise is anatomic. There is subcutaneous edema around the foot and ankle. There is some destructive change involving the posterior base of the proximal phalanx of the third toe. There is si gnificant destructive change of the middle phalanx and distal phalanx of the third toe. IMPRESSION: OSTEOARTHRITIC CHANGES. HYPERTROPHIC SPURRING. SUBCUTANEOUS EDEMA. DESTRUCTIVE CHANGES IN THE THIRD T OE COULD RELATE TO OSTEOMYELITIS..
[2017-11-09 22:03] LABS: Glucose,Whole Blood 139 mg/dL (75-99)
[2017-11-10] MEDS: traZODone HCL 50 MG TAB PO SCH ×2 (00:41→21:32)
[2017-11-10] MEDS: AMPICILLIN-SULBACTAM 1.5 GM in SODIUM CHLORIDE 0.9% 50 ML IVPB SCH ×2 (06:37→14:48)
[2017-11-10 07:32] LABS: Glucose,Whole Blood 110 mg/dL (75-99)
[2017-11-10] MEDS ORDERED: VANCOMYCIN IV PER PHARMACY 1 EACH MISC MISCELLANE PRN (08:13)
[2017-11-10] MEDS: ESCITALOPRAM 10 MG TAB PO SCH (08:15)
[2017-11-10] MEDS: INSULN ASP PRT/INSULIN ASPART 100 UNIT/ML 10 ML VIAL SQ SCH ×2 (08:15→18:03)
[2017-11-10] MEDS: LORATADINE 10 MG TAB PO SCH (08:15)
[2017-11-10] MEDS: INSULIN ASPART 100 UNIT/ML 1 ML 10 ML VIAL SQ SCH ×4 (08:16→21:31)
[2017-11-10] MEDS: VANCOMYCIN 1,750 MG in SODIUM CHLORIDE 0.9% 500 ML IVPB SCH ×2 (10:54→21:33)
[2017-11-10 12:08] LABS: Glucose,Whole Blood 95 mg/dL (75-99)
[2017-11-10 13:25] LABS: Hemoglobin A1C 5.4 % (4.0-6.0)
[2017-11-10 17:21] LABS: Glucose,Whole Blood 167 mg/dL (75-99)
[2017-11-10] MEDS: PIPERACILLIN-TAZOBACTAM 3.375 GM in DEXTROSE/WATER 1 50ML.BAG IVPB SCH (18:02)
[2017-11-10 20:42] LABS: Glucose,Whole Blood 180 mg/dL (75-99)
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
--- NOTE | 2017-11-10 23:44 | CONS ---
CONSULTATION DATE OF SERVICE: 11/10/2017. REASON FOR CONSULTATION: Left diabetic foot infection. HISTORY OF PRESENT ILLNESS: The patient is a 67-year-old man with a past medical history significant for a right diabetic foot infection and having hanyp-lpy-xnqy amputation. The patient did have amputation of his left big toe previously. Apparently over the last 2 weeks he has developed a wound on his left foot at the base of the . The wound opened up and the daughter mentioned that she expressed a lot of pus out. However, there is no clear history of any of that was cultured. The patient was on antibiotic therapy with the area becoming more swollen, red and painful. Described to more of a throbbing nature, worse when the foot is down. intensity was about 7 to 8/10, and no radiation with these symptoms. The patient has been evaluated by Dr. Reynolds in the wound care center with worsening cellulitis. He has been admitted hospital and the patient was started on Unasyn and vancomycin. The patient did have a CT of the left foot which did shows osteoarthritic changes, hypertrophic spurring, subcutaneous edema 2nd toe and the 3rd toe could be related to osteomyelitis. Infectious Disease was consulted for further recommendation regarding antibiotic therapy. REVIEW OF SYSTEMS: CONSTITUTIONAL: Positive for weakness, getting cold and chills. Denies any high-grade fever. EYES: No complaint. ENT: No complaint. RESPIRATORY: No complaint. CARDIOVASCULAR: No complaint. GENITOURINARY: No complaint. GASTROINTESTINAL: No complaint. MUSCULOSKELETAL: As per HPI. INTEGUMENTARY: As per HPI. PSYCHOLOGICAL: No complaint. ENDOCRINE: No complaint. NEUROLOGICAL: No complaint. PAST MEDICAL HISTORY: Diabetes mellitus, insulin dependent, hypertension, hyperlipidemia, diabetic foot infection, osteomyelitis and gangrene. PAST SURGICAL HISTORY: Hernia repair, heart catheterization by great toe amputation and right xemvu-sgf-ekyn amputation because of osteomyelitis and diabetic foot infection. SOCIAL HISTORY: The patient is to his . Socially drinks. Does admit to smoking. No drug use. FAMILY HISTORY: Father history of brain cancer. Mother history of glaucoma. ALLERGIES: No known drug allergies. MEDICATIONS: Include the patient is currently on Lexapro, NovoLog, Claritin, Narcan, Unasyn, trazodone and vancomycin pharmacy to dose. EXAMINATION: Blood pressure 149/72 with a pulse of 74, temperature 97.6. He is 97% on room air. General description is an elderly male lying in bed in no distress. No tachypnea or accessory muscle of respiration use. HEENT examination is slight pallor. No scleral icterus. Oral mucosa is moist. No pharyngeal erythema. NECK: Trachea central. No thyromegaly. LUNGS: Unlabored breathing, clear to auscultation anteriorly. No wheeze or crackle. HEART: S1, S2, regular rate and rhythm. ABDOMEN: Soft, no tenderness. No guarding or rigidity. EXTREMITIES: No edema of feet. Examination of the left foot did have a wound at the base of the toe with some purulent drainage, surrounding swelling and redness. No foul smelling odor. NEUROLOGICAL: The patient is awake, alert, oriented x3. Mood and affect normal. LABS: Hemoglobin 9.8, white count 10.6, BUN of 22, creatinine 1.20, potassium of 5.3. Liver enzymes are normal. Cultures are currently pending. Blood cultures so far pending. CT report as mentioned above. DIAGNOSTIC IMPRESSION AND PLAN: Patient with left diabetic foot infection with drainage of an abscess spontaneous now with evidence of destructive changes likely representing osteomyelitis involving the toe. The patient did have previous history of MRSA infection and could be related to MRSA. However, he has grown Enterobacter procidentia and other resistant gram negative and gram negative infection not entirely excluded. PLAN: 1. Vancomycin pharmacy to dose target of 15 while watching his kidney function closely. 2. Discontinue Unasyn and start the patient on Zosyn 3.375 g q.8 hours. 3. Await Vascular Surgery evaluation, possible debridement and deep cultures. 4. We will follow up on his clinical condition and culture to further adjust medication if needed. Thank you for this consultation. We will follow this patient along with you. MMODL / IJN: [id number] /
[2017-11-11] MEDS: PIPERACILLIN-TAZOBACTAM 3.375 GM in DEXTROSE/WATER 1 50ML.BAG IVPB SCH ×4 (00:40→23:36)
[2017-11-11 07:34] LABS: Glucose,Whole Blood 90 mg/dL (75-99)
[2017-11-11] MEDS: INSULIN ASPART 100 UNIT/ML 1 ML 10 ML VIAL SQ SCH ×4 (07:50→21:04)
[2017-11-11] MEDS: LORATADINE 10 MG TAB PO SCH (08:03)
[2017-11-11] MEDS: INSULN ASP PRT/INSULIN ASPART 100 UNIT/ML 10 ML VIAL SQ SCH ×2 (08:03→17:00)
[2017-11-11] MEDS: ESCITALOPRAM 10 MG TAB PO SCH (08:03)
[2017-11-11] MEDS: VANCOMYCIN 1,750 MG in SODIUM CHLORIDE 0.9% 500 ML IVPB SCH ×2 (08:10→21:12)
[2017-11-11 09:09] LABS: Calcium 9.1 mg/dL (8.4-10.2); Potassium 4.4 mmol/L (3.5-5.1)
[2017-11-11 12:03] LABS: Glucose,Whole Blood 148 mg/dL (75-99)
[2017-11-11] MEDS ORDERED: LIDOCAINE 1% INJ 10MG/ML (20 ML MDV) SQ ONE (16:36)
[2017-11-11 17:09] LABS: Glucose,Whole Blood 146 mg/dL (75-99)
--- NOTE | 2017-11-11 18:36 | OP ---
OPERATIVE REPORT PREOPERATIVE DIAGNOSIS: Abscess with cellulitis, left foot base of the big toe stump with some draining pus from the small opening from the stump site of the big toe. PROCEDURE PERFORMED: Incision and debridement of the wound down to subcutaneous tissue. This patient was seen in his room. Left foot was prepped and draped in the usual manner. This patient had a toe amputation done in the past. He developed marked swelling and redness and there was some small opening which was draining pus. Lidocaine 1% was infiltrated. An elliptical incision was made and deepened through skin and subcutaneous tissue. The skin was excised and subcutaneous tissue was excised. We took some deep culture. No active bleeding was noted. Wound was irrigated with saline and Aquacel Silver was applied to the wound. Dressing applied. Patient tolerated the procedure well. PLAN: Change the dressing every 48 hours. Continue with IV antibiotic. KATERINA / CAMILA: [id number] /
--- NOTE | 2017-11-11 18:54 | P.PN ---
Subjective Progress Note Date: 11/11/17 Principal diagnosis: Cellulitis left leg This 67-year-old gentleman was admitted to the hospital with cellulitis of the left foot. He has a history of recurrent cellulitis is due to severe chronic venous stasis. He also has had previous and dictation and foot ulcerations relating to diabetes and has a right above-knee amputation. Patient is obese poor compliant with diet. The patient's is actually been afebrile feeling much better the foot is being addressed by Dr. Haddad and ID. Patient is on vancomycin. Is also on Zosyn. The patient has had no fever or chills. He is feeling better with no nausea vomiting diarrhea. Denies much pain in the left leg. Blood sugars are adequately controlled REVIEW OF SYSTEMS: Neuro: Denies any headaches dizziness. Psych: Denies anxiety depression feels oriented. Cardiac: Denies chest pain and angina palpitations. Respiratory: Denies shortness of breath cough. GI: Denies nausea vomiting or abdominal pain. No diarrhea or constipation, no bowel movement yet. : Denies dysuria hematuria. Extremities: Denies pain. No edema. Skin: Left lower leg stasis dermatitis and cellulitis left foot. Constitutional: No fever, chills. Objective - Vital Signs Vital signs: Vital Signs Temp 98.0 F 11/11/17 14:12 Pulse 65 11/11/17 14:12 Resp 20 11/11/17 14:12 BP 144/72 11/11/17 14:12 Pulse Ox 100 11/11/17 14:12 Intake & Output 11/10/17 11/11/17 11/11/17 18:59 06:59 18:59 Intake Total 550 Output Total 1400 600 725 Balance -1400 -50 -725 Intake: Intake, IV Titration 550 Amount Piperacillin-Tazobactam 3 50 .375 gm In Dextrose/Water 1 50ml.bag @ 12.5 mls/hr IVPB Q8HR SINDHU Rx#: [id number] Vancomycin 1,750 mg In 500 Sodium Chloride 0.9% 500 ml @ 167 mls/hr IVPB Q12HR SINDHU Rx#:[id number] Output: Urine 1400 600 725 Other: Voiding Method Urinal # Voids 1 1 PHYSICAL EXAMINATION: Cooperative, at present in no acute distress. HEENT: Neck supple. No JVD. Chest: Clear to auscultation percussion. Cardiac: Normal S1-S2 no gallops no murmur . Abdomen: Soft and protuberantbowel sounds present. Extremities: Right below-knee amputee. Left lower leg chronic venous stasis dermatitis with scabbed areas. Left foot not inspected as dressed by the surgeon] Neurologically: Awake, alert, oriented with well-coordinated movements upper extremities. - Labs CBC & Chem 7: 11/09/17 17:22 11/11/17 08:19 Labs: Abnormal Lab Results - Last 24 Hours (Table) 11/10/17 11/11/17 11/11/17 Range/Units 20:32 08:19 12:01 Glucose 150 H (74-99) mg/dL POC Glucose (mg/dL) 180 H 148 H (75-99) mg/dL 11/11/17 Range/Units 16:48 Glucose (74-99) mg/dL POC Glucose (mg/dL) 146 H (75-99) mg/dL Microbiology - Last 24 Hours (Table) 11/09/17 17:22 Blood Culture - Preliminary Blood No Growth after 24 hours Assessment and Plan Assessment: ASSESSMENT: 1. Diabetes mellitus with blood sugars adequately controlled at present. 2. Cellulitis left foot. 3. Chronic venous stasis left leg. 4. Chronic venous hypertension. 5. Right above-knee of dictation. 6. Peripheral neuropathy. 7. Diabetic foot ulcerations. 8. Hypertension 9. Obesity. PLAN: Continue present medical regimen patient being followed by ID for the antibiotics. Wound care per Dr. Haddad.
[2017-11-11 20:29] LABS: Glucose,Whole Blood 178 mg/dL (75-99)
[2017-11-11] MEDS: traZODone HCL 50 MG TAB PO SCH (21:11)
--- NOTE | 2017-11-11 23:21 | PN ---
PROGRESS NOTE DATE OF SERVICE: 11/11/2017. REASON FOR FOLLOWUP: Left diabetic foot infection. . INTERVAL HISTORY: The patient is currently afebrile. He is breathing comfortably. Denies having any chest pain or shortness of breath or cough. No abdominal pain or any worsening pain to the left foot area. EXAMINATION: Blood pressure is 134/68 with a pulse of 68, temperature 98.1. He is 97% on room air. General description is an elderly male lying in bed in no distress. RESPIRATORY SYSTEM: Unlabored breathing. Clear to auscultation anteriorly. HEART: S1, S2. Regular rate and rhythm. ABDOMEN: Soft. No tenderness. Left foot is currently dressed up. No obvious drainage on the dressing. LABS: BUN of 15, creatinine 1.03. The wound cultures are currently pending. Blood culture so far negative. DIAGNOSTIC IMPRESSION AND PLAN: Patient with left diabetic infection with concern for underlying osteomyelitis, currently covered with vancomycin and Unasyn. Antibiotic will be adjusted further on the basis of the culture report. The patient will likely need a PICC line and outpatient antibiotic therapy in view of the bony destruction seen on the CT. Continue with supportive care. MMODL / IJN: [id number] /
[2017-11-12 07:28] LABS: Glucose,Whole Blood 77 mg/dL (75-99)
[2017-11-12] MEDS: INSULIN ASPART 100 UNIT/ML 1 ML 10 ML VIAL SQ SCH ×4 (07:43→20:59)
[2017-11-12] MEDS: INSULN ASP PRT/INSULIN ASPART 100 UNIT/ML 10 ML VIAL SQ SCH ×2 (07:48→17:31)
[2017-11-12] MEDS: PIPERACILLIN-TAZOBACTAM 3.375 GM in DEXTROSE/WATER 1 50ML.BAG IVPB SCH (07:48)
[2017-11-12] MEDS: LORATADINE 10 MG TAB PO SCH (07:49)
[2017-11-12] MEDS: ESCITALOPRAM 10 MG TAB PO SCH (07:49)
[2017-11-12] MEDS ORDERED: VANCOMYCIN TROUGH DUE 1 EACH MISC MISCELLANE ONE (08:00)
[2017-11-12 08:37] LABS: Anion Gap 10 mmol/L; Blood Urea Nitrogen 14 mg/dL (9-20); Calcium 9.1 mg/dL (8.4-10.2); Carbon Dioxide 24 mmol/L (22-30); Chloride 107 mmol/L (98-107); Glucose 118 mg/dL (74-99); Potassium 4.6 mmol/L (3.5-5.1); Sodium 141 mmol/L (137-145)
[2017-11-12] MEDS: VANCOMYCIN 1,750 MG in SODIUM CHLORIDE 0.9% 500 ML IVPB SCH (09:49)
[2017-11-12 11:33] LABS: Glucose,Whole Blood 91 mg/dL (75-99)
--- NOTE | 2017-11-12 15:04 | PN ---
PROGRESS NOTE DATE OF SERVICE: 11/12/2017 REASON FOR FOLLOWUP: Left foot MRSA osteomyelitis. INTERVAL HISTORY: The patient is currently afebrile. He is breathing comfortably. Denies having any chest pain, shortness of breath or cough. No abdominal pain. He did have debridement at the bedside of his left foot wound currently. Denies gross abdominal pain. PHYSICAL EXAMINATION: Blood pressure is 146/70 with a pulse of 53, temperature 98, he is 99% on room air. General description is an elderly male, up in the room in no distress. RESPIRATORY SYSTEM: Unlabored breathing, clear to auscultation anteriorly. HEART: S1, S2. Regular rate and rhythm. Positive left foot is currently dressed was drainage on the dressing. LABS: Vancomycin trough 21.7. Wound culture positive for present MRSA. DIAGNOSTIC IMPRESSION AND PLAN: Patient with left foot osteomyelitis, diabetic foot infection diagnosed 05/16, culture with marginal med. Vancomycin will continue pharmacy to dose target of 15 waiting for the final sent to this pathogen. He will need a PICC line for outpatient IV antibiotic therapy. We will get a baseline sed rate. Daughter was present at bedside. Questions were answered. MMODL / IJN: [id number] /
[2017-11-12 17:11] LABS: Glucose,Whole Blood 183 mg/dL (75-99)
[2017-11-12 20:43] LABS: Glucose,Whole Blood 83 mg/dL (75-99)
[2017-11-12] MEDS: VANCOMYCIN 1,500 MG in SODIUM CHLORIDE 0.9% 250 ML IVPB SCH (21:19)
[2017-11-12] MEDS: traZODone HCL 50 MG TAB PO SCH (21:19)
[2017-11-12] MEDS ORDERED: ACETAMINOPHEN TAB 325 MG TAB PO PRN (22:36)
[2017-11-13 06:05] LABS: Glucose,Whole Blood 62 mg/dL (75-99)
[2017-11-13 06:09] LABS: Glucose,Whole Blood 83 mg/dL (75-99)
--- NOTE | 2017-11-13 06:44 | PN ---
PROGRESS NOTE CHIEF COMPLAINT: Re-evaluation. HISTORY OF PRESENT ILLNESS: This is a 67-year-old who was admitted to the hospital with cellulitis of the left foot. The patient has significant chronic venous stasis and lymphangitic stasis with chronic venous hypertension left leg. The patient also has had previous right above- knee amputation for a similar problem. The patient has had a history of peripheral neuropathy associated with diabetes. The patient has history of longstanding diabetes mellitus with poor compliance. He has had diabetic foot ulcers and treated multiple times for infection in the feet. The patient has suggestion of possible osteomyelitis. The patient had some debridement today with deep wound cultures taken. The patient has been afebrile, feeling fairly well. Otherwise, patient has no other associated symptoms. REVIEW OF SYSTEMS: NEURO: Denies any headaches, dizziness. PSYCH: No anxiety. CARDIAC: No chest pain, angina, palpitation. RESPIRATORY: Denies shortness of breath, cough. GI: No nausea, vomiting, abdominal pain, diarrhea. No bowel movement yet. : No symptoms dysuria, hematuria. EXTREMITIES: Denies much pain. CONSTITUTIONAL: No fever, chills. HEMATOLOGICAL: Chronic anemia. PHYSICAL EXAMINATION: Pleasant gentleman at present in no distress. Vital signs reveal temperature 97.5, pulse 61, respirations 18, blood pressure 161/73, pulse ox 97% on room air. HEENT: Normocephalic. NECK: Supple. No JVD. CHEST: Clear to auscultation. CARDIAC: Normal S1, S2. No gallops, murmurs. ABDOMEN: Soft. Bowel sounds present. Extremities reveal the right [id number]-bmp-fzrr amputation. Left leg has significant dressing on the left foot which is not inspected as this is postsurgical wound with bedside debridement. NEUROLOGICALLY: Awake, alert, oriented with well-coordinated movements. LABORATORY ASSESSMENT: Laboratory assessment was electrolytes which are normal. BUN 14, creatinine 0.93. Glucose 118. ASSESSMENT: 1. Diabetes mellitus, adequately controlled. 2. Cellulitis, left foot. 3. Peripheral neuropathy secondary to diabetes mellitus. 4. Status post right above-knee amputation. 5. Obesity. PLAN: The patient is stable. Continue the present medical regimen. The patient's condition discussed with the patient. Prognosis guarded. The patient is also seen by ID and patient on antibiotic. MMODL / IJN: [id number] /
[2017-11-13 07:28] LABS: Glucose,Whole Blood 123 mg/dL (75-99)
[2017-11-13] MEDS: INSULIN ASPART 100 UNIT/ML 1 ML 10 ML VIAL SQ SCH ×4 (07:31→21:02)
[2017-11-13] MEDS: INSULN ASP PRT/INSULIN ASPART 100 UNIT/ML 10 ML VIAL SQ SCH ×2 (08:16→17:47)
[2017-11-13] MEDS: LORATADINE 10 MG TAB PO SCH (08:16)
[2017-11-13] MEDS: ESCITALOPRAM 10 MG TAB PO SCH (08:16)
[2017-11-13] MEDS: VANCOMYCIN 1,500 MG in SODIUM CHLORIDE 0.9% 250 ML IVPB SCH ×2 (08:17→20:37)
[2017-11-13 08:27] LABS: Anion Gap 10 mmol/L; Blood Urea Nitrogen 11 mg/dL (9-20); Calcium 9.2 mg/dL (8.4-10.2); Carbon Dioxide 26 mmol/L (22-30); Chloride 106 mmol/L (98-107); Glucose 118 mg/dL (74-99); Sodium 142 mmol/L (137-145)
[2017-11-13 12:05] LABS: Glucose,Whole Blood 162 mg/dL (75-99)
--- NOTE | 2017-11-13 15:38 | PN ---
PROGRESS NOTE DATE OF SERVICE: 11/13/2017 REASON FOR FOLLOWUP: Left diabetic foot infection, Bebe's grade 3 with MRSA osteomyelitis. INTERVAL HISTORY: The patient is currently afebrile. He is breathing comfortably. Denies having any chest pain. No shortness of breath, no cough, no abdominal pain. The patient did get a PICC line for outpatient IV antibiotic therapy. PHYSICAL EXAMINATION: Blood pressure 152/70 with a pulse of 63, temperature is 97.5, he is 97% on room air. General description is an elderly male, lying in bed in no distress. RESPIRATORY SYSTEM: Unlabored breathing, clear to auscultation anteriorly. HEART: S1, S2. Regular rate and rhythm. ABDOMEN: Soft, no tenderness. Left foot swelling and redness has decreased. No purulence was noticed or any foul- smelling drainage. LABS: BUN of 11, creatinine 0.84. DIAGNOSTIC IMPRESSION AND PLAN: Patient with left diabetic foot infection with acute osteomyelitis secondary to methicillin-resistant Staphylococcus aureus. The patient at this time will continue on vancomycin, pharmacy to dose at target of 15 for total of 6 weeks. Prescription has been written for the patient once antibiotic arranged. He should be able to go home from ID standpoint. MMODL / IJN: [id number] /
[2017-11-13 17:36] LABS: Glucose,Whole Blood 155 mg/dL (75-99)
[2017-11-13] MEDS: traZODone HCL 50 MG TAB PO SCH (20:37)
[2017-11-13 20:43] LABS: Glucose,Whole Blood 154 mg/dL (75-99)
--- NOTE | 2017-11-13 23:35 | PN ---
PROGRESS NOTE ATTENDING PHYSICIAN: Dr. Asad Haddad. CONSULTING PHYSICIAN: Dr. Sofia Benson. DATE OF SERVICE: 11/13/2017. CHIEF COMPLAINT: Re-evaluation. HISTORY OF PRESENT ILLNESS: A 67-year-old gentleman. The patient has admitted to the hospital with cellulitis, left lower leg. He had some debridement done. Cultures have been taken. The patient did have a PICC line. The patient had deep tissue infections and is scheduled for subsequently outpatient antibiotics. He is feeling actually fairly well. He has had no fever, chills. REVIEW OF SYSTEMS: NEURO: Denies any headaches, dizziness. PSYCH: No anxiety. CARDIAC: No chest pain, angina, palpitation. RESPIRATORY: No shortness of breath, cough, hemoptysis. GI: No nausea, vomiting, abdominal pain, diarrhea. : No symptoms of dysuria, hematuria. EXTREMITIES: Some pain in the right thigh. CONSTITUTIONAL: No fever or chills. PHYSICAL EXAMINATION: Pleasant gentleman, at present in no distress. Vital signs reveal temperature 97.5, pulse 63, respirations 20, blood pressure 152/70, pulse ox of 97% on room air. HEENT: Normocephalic. NECK: No JVD. CHEST: Clear to auscultation. CARDIAC: Normal S1, S2 with no gallop. Systolic murmur 2/6 left sternal border. ABDOMEN: Soft, protuberant. Bowel sounds active. Extremities reveal no edema. Right leg above-knee amputation. Left leg dressing below the knee. Neurologically awake, alert, oriented with well-coordinated movements both upper extremities. LABORATORY ASSESSMENT: Electrolytes which were normal. Renal function was normal. The patient's blood sugar is adequately controlled. ASSESSMENT: 1. Diabetes mellitus, adequately controlled. 2. Peripheral neuropathy. 3. Chronic venous stasis and venous hypertension with cellulitis, left lower leg. 4. Status post right above-knee amputation. 5. Obesity. 6. Hypertension. PLAN: The patient is stable. Continue present medical regimen. Patient's condition discussed with the patient. Prognosis is guarded. He is scheduled for a PICC line today. Potential discharge home subsequently. Continue present regimen. Dr. Bryant will be on-call covering for me, starting today. MMODL / IJN: [id number] /
[2017-11-14 07:48] LABS: Glucose,Whole Blood 147 mg/dL (75-99)
[2017-11-14] MEDS ORDERED: VANCOMYCIN TROUGH DUE 1 EACH MISC MISCELLANE ONE (08:00)
[2017-11-14] MEDS: VANCOMYCIN 1,500 MG in SODIUM CHLORIDE 0.9% 250 ML IVPB SCH (08:07)
[2017-11-14] MEDS: INSULN ASP PRT/INSULIN ASPART 100 UNIT/ML 10 ML VIAL SQ SCH ×2 (08:07→17:51)
[2017-11-14] MEDS: INSULIN ASPART 100 UNIT/ML 1 ML 10 ML VIAL SQ SCH ×4 (08:07→21:27)
[2017-11-14] MEDS: ESCITALOPRAM 10 MG TAB PO SCH (08:08)
[2017-11-14] MEDS: LORATADINE 10 MG TAB PO SCH (08:08)
[2017-11-14 08:46] LABS: Anion Gap 8 mmol/L; Blood Urea Nitrogen 13 mg/dL (9-20); Calcium 8.9 mg/dL (8.4-10.2); Carbon Dioxide 26 mmol/L (22-30); Chloride 108 mmol/L (98-107); Glucose 135 mg/dL (74-99); Potassium 4.3 mmol/L (3.5-5.1); Sodium 142 mmol/L (137-145)
[2017-11-14 11:59] LABS: Glucose,Whole Blood 213 mg/dL (75-99)
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
[2017-11-14 17:51] LABS: Glucose,Whole Blood 197 mg/dL (75-99)
[2017-11-14 20:58] LABS: Glucose,Whole Blood 111 mg/dL (75-99)
[2017-11-14] MEDS: traZODone HCL 50 MG TAB PO SCH (21:33)
[2017-11-14] MEDS: LISINOPRIL 2.5 MG TAB PO SCH (21:34)
[2017-11-14] MEDS: VANCOMYCIN 1,250 MG in SODIUM CHLORIDE 0.9% 250 ML IVPB SCH (21:34)
--- NOTE | 2017-11-14 23:42 | PN ---
PROGRESS NOTE DATE OF SERVICE: 11/14/2017. REASON FOR FOLLOWUP: Right foot MRSA osteomyelitis, acute with associated peritonitis. INTERVAL HISTORY: The patient is currently afebrile. He is breathing comfortably. Denies having any chest pain, shortness of breath, cough, abdominal pain or any worsening pain in the right foot area. EXAMINATION: Blood pressure 175/76, pulse of 58, temperature 98.3. He is 95% on room air. General description is an elderly male lying in bed in no distress. RESPIRATORY SYSTEM: Unlabored breathing. Clear to auscultation anteriorly. HEART: S1, S2. Regular rate and rhythm. ABDOMEN: Soft. No tenderness. Left foot is currently dressed up. No obvious drainage on the dressing. LABS: BUN of 13, creatinine 0.90. Vancomycin trough slightly on the high side. DIAGNOSTIC IMPRESSION AND PLAN: Patient with left diabetic foot infection with secondary osteomyelitis, acute with associated diabetes mellitus. Plan at this time is to keep the patient on vancomycin. Dose to be adjusted down to keep the trough around 15. Once antibiotics arranged for home care, cleared to go home from ID standpoint. Continue with supportive care. MMODL / IJN: [id number] /
[2017-11-15 07:18] LABS: Glucose,Whole Blood 104 mg/dL (75-99)
[2017-11-15] MEDS: INSULIN ASPART 100 UNIT/ML 1 ML 10 ML VIAL SQ SCH ×2 (07:53→11:30)
[2017-11-15 07:58] VITALS: PULSE 60; RESP 18; TEMP 97.5
[2017-11-15] MEDS: ESCITALOPRAM 10 MG TAB PO SCH (07:59)
[2017-11-15] MEDS: LISINOPRIL 2.5 MG TAB PO SCH (07:59)
[2017-11-15] MEDS: LORATADINE 10 MG TAB PO SCH (07:59)
[2017-11-15] MEDS: VANCOMYCIN 1,250 MG in SODIUM CHLORIDE 0.9% 250 ML IVPB SCH (07:59)
[2017-11-15 08:33] LABS: Anion Gap 10 mmol/L; Blood Urea Nitrogen 13 mg/dL (9-20); Calcium 8.8 mg/dL (8.4-10.2); Carbon Dioxide 24 mmol/L (22-30); Chloride 107 mmol/L (98-107); Glucose 88 mg/dL (74-99); Potassium 3.9 mmol/L (3.5-5.1); Sodium 141 mmol/L (137-145)
[2017-11-15 09:24] LABS: Glucose,Whole Blood 158 mg/dL (75-99)
[2017-11-15] MEDS: INSULN ASP PRT/INSULIN ASPART 100 UNIT/ML 10 ML VIAL SQ SCH (09:28)
[2017-11-15 11:05] VITALS: BP 140/74
--- NOTE | 2017-11-15 11:28 | DS ---
DISCHARGE SUMMARY ATTENDING PHYSICIAN: Dr. Roscoe Benson. He is FULL CODE. NEW DATA: Height is 6 feet and the weight 113.398 kg. The BSA is 2.34 m2. BMI is 33.9 kg per square m. His allergy is unknown. FINAL DIAGNOSES: 1. Underlying left leg ulceration with the underlying MRSA with acute cellulitis on the top of chronic. 2. Left foot cellulitis. 3. Chronic venous stasis of the left leg. 4. 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 5. Diabetes mellitus type 2 on insulin dependent with complication. 6. Degenerative osteoarthritis. Wound culture was indicating MRSA with placed on precaution with the osteomyelitis associated with the cellulitis. Debridement by Dr. Haddad, vascular surgeon. Wound culture x3 indicating methicillin-resistant Staph aureus of the left foot. Consultation with Dr. Del Rosario, infectious Disease. The patient has been cleared by Infectious Disease for discharge home today. Arrangement with a visiting nurse for the dressing. Follow up with the wound clinic on the following Thursday after the . His daughter has been helping him with the dressing. Status post left arm PICC line for the continuous treatment with antibiotic and vancomycin for the MRSA. The patient of Dr. Roscoe Benson and he was admitted on 11/09/2017 and will be discharged today on November 15, 2017. He had a CT scan of the foot and with the consideration and suspicious of the osteomyelitis as well as he had Dr. Asad Haddad, the vascular surgeon who took him to the operative room and did debridement with draining of the pus and send the laboratory which was positive for the MRSA. Current laboratory on 11/15/2017 indicating sodium 141, potassium 3.9, chloride 107, carbon dioxide 24, and anion gap 10, and BUN 13 and creatinine 0.76 with the estimated glomerular filtration rate for non- more than 90. His glucose was controlled at 88 this morning and the POC glucose as was monitored and fairly well controlled and calcium was 8.8. On presentation to the emergency room, the patient presented with wheelchair as a 67 years old, has right lower extremity amputation. He had left lower extremity chronic wound and with the progressive worsening of redness and tenderness to the left foot. The wound care center physician admitted him to the hospital under the care of his primary care doctor, Dr. Roscoe Benson, and subsequently continued with the treatment with debridement. On the hospital course, the patient after debridement did well, started on vancomycin with the monitored by Infectious Disease, Dr. Del Rosario and arrangement by Dr. Del Rosario for infusion after he had the PICC line with the Vancomycin. An further followup with visiting nurse has been obtained and the patient currently the arrangement has been made and done and will be discharged home today on stable general condition. On the exam on discharge, his vital signs indicating temperature 97.5, his pulse rate 60, respiratory rate and his blood pressure improved from yesterday after small doses of lisinopril 2.5 mg twice a day, still today 175/79 blood pressure, and we will be increasing his lisinopril to 10 mg twice a day and should be monitored at home with the visiting nurse. His pulse ox 98 percent with no symptoms. On examination, patient is conscious, alert, oriented. He has significant dermatosis of the skin secondary to chronic dermopathy of diabetes. He is able to eat and drink and no neurological abnormalities. Neck was supple. The chest was clear and no wheezes, no rhonchi. The heart was regular sinus rhythm and the abdomen was soft, positive bowel sounds. He has normal genitalia with uncircumcised. Extremities: He has right above knee amputation and he has the dressing on the 2/3 of the foot and the 2/3 of the leg and a dressing as well to be continued with the silver Silvadene cream. Continue the PICC line and continue the antibiotic as per recommendation of Dr. Del Rosario and he will be followed by Dr. Del Rosario as well as Dr. Benson. Between now and the return of Dr. Benson if they have any further questions, they can contact my office for further instructions. Also follow up with Dr. Asad Haddad the vascular surgeon, and continue the wound clinic on Thursday. With the underlying diabetes has been monitored and will be continuing the medication. New medication is added is the lisinopril 10 mg twice a day and the future plan for evaluation of the renal function so far has been very well. The patient general condition is stable to be discharged home today. MMODL / MATAN: [id number] /
[2017-11-15 11:38] LABS: Glucose,Whole Blood 133 mg/dL (75-99)
--- NOTE | 2017-11-15 15:40 | PN ---
PROGRESS NOTE This is a 67-year-old diabetic male who has a history of peripheral vascular disease, post right BK amputation. He has been admitted through the wound center for infected left foot with abscess formation and cellulitis. We did the wound debridement. The patient has been treated with Aquacel silver and IV antibiotic under care of Infectious Disease. Cellulitis is improving and the base of the wound is granulating. PLAN: The patient is going home for home care and will follow in the wound clinic next Thursday. Plan to continue with Aquacel Silver which will be changed every 48 hours. MMODL / IJN: [id number] /
--- NOTE | 2017-11-17 08:51 | IR ---
PICC LINE PLACEMENT: HISTORY: Infection requiring long-term antibiotic therapy PROCEDURE: Ultrasound and fluoroscopic guidance of PICC line placement. COMPLICATIONS: None ANESTHESIA: 1. 1% Lidocaine locally. FINDINGS/TECHNIQUE: The procedure was explained to the patient. The risks, complications, benefits and alternatives were discussed and any questions were answered. Informed consent was obtained. The patient was placed supine on the fluoroscopic table and prepped and draped in the usual sterile [facility] ion. Utilizing a 21 gauge needle and sonographic and fluoroscopic guidance, access in the vein was achieved and there is placement of a 0.018 guidewire. The vein is patent. A 4-F sheath was placed o george the guidewire. The guidewire and dilator were removed and a 4-F. PICC line was placed through th e sheath with the tip at the level of the SVC. The sheath was removed, the catheter was flushed and sutured into position. The patient was stable throughout the procedure and remained stable upon disc harge from the Department of Radiology. The vein puncture was patent under ultrasound. A mireles scale image was obtained to document patency of the vein punctured. All elements of the maximal barrier technique were utilized. FLUOROSCOPY TIME: 0.6 minutes and one image submitted IMPRESSION: Successful PICC line placement under ultrasound and fluoroscopic guidance.
== END 2017-11-15 14:19 | disposition home health service (06) | DRG 623 ==
LOC: EC 16:37 → 4MS4W 17:30
PROVIDERS: ADMIT Surgery Vascular Surgery; ATTEND Surgery Vascular Surgery
PROC: 0JBR0ZZ Excision of Left Foot Subcutaneous Tissue and Fascia, Open Approach (ICD-10-PCS; principal; 2017-11-11)
PROC: 02HV33Z Insertion of Infusion Device into Superior Vena Cava, Percutaneous Approach (ICD-10-PCS; 2017-11-13 13:00)
DX: E11.69 Type 2 diabetes mellitus with other specified complication (principal); M86.172 Other acute osteomyelitis, left ankle and foot; L03.116 Cellulitis of left lower limb; L97.829 Non-pressure chronic ulcer of other part of left lower leg with unspecified severity; I87.312 Chronic venous hypertension (idiopathic) with ulcer of left lower extremity; E11.22 Type 2 diabetes mellitus with diabetic chronic kidney disease; E11.42 Type 2 diabetes mellitus with diabetic polyneuropathy; E11.621 Type 2 diabetes mellitus with foot ulcer; E11.51 Type 2 diabetes mellitus with diabetic peripheral angiopathy without gangrene; E11.36 Type 2 diabetes mellitus with diabetic cataract; N18.3 Chronic kidney disease, stage 3 (moderate); E11.649 Type 2 diabetes mellitus with hypoglycemia without coma; L97.529 Non-pressure chronic ulcer of other part of left foot with unspecified severity; B95.62 Methicillin resistant Staphylococcus aureus infection as the cause of diseases classified elsewhere; Z16.24 Resistance to multiple antibiotics; I12.9 Hypertensive chronic kidney disease with stage 1 through stage 4 chronic kidney disease, or unspecified chronic kidney disease; K21.9 Gastro-esophageal reflux disease without esophagitis; E78.5 Hyperlipidemia, unspecified; M19.041 Primary osteoarthritis, right hand; M17.0 Bilateral primary osteoarthritis of knee; M19.042 Primary osteoarthritis, left hand; F32.9 Major depressive disorder, single episode, unspecified; F41.9 Anxiety disorder, unspecified; L21.9 Seborrheic dermatitis, unspecified; K04.7 Periapical abscess without sinus; I87.2 Venous insufficiency (chronic) (peripheral); E66.9 Obesity, unspecified; Z68.33 Body mass index [BMI] 33.0-33.9, adult; Z79.4 Long term (current) use of insulin; Z79.2 Long term (current) use of antibiotics; Z79.899 Other long term (current) drug therapy; Z89.611 Acquired absence of right leg above knee; Z87.891 Personal history of nicotine dependence; Z86.14 Personal history of Methicillin resistant Staphylococcus aureus infection; Z89.412 Acquired absence of left great toe; Z80.8 Family history of malignant neoplasm of other organs or systems; Z83.511 Family history of glaucoma
CPT/HCPCS: 36415; 36569; 76937; 77001; 80048; 80053; 80202; 83036; 85025; 87040; 87070; 87075; 87077; 87186; 87205; 96365; 99213; 99285

== ENCOUNTER → 2018-05-03 | Outpatient (CLI) | payer MEDICARE ==
[2018-05-03 14:58] LABS: HCT 35.4 % (39.0-53.0); HGB 11.8 gm/dL (13.0-17.5); MCH 28.5 pg (25.0-35.0); MCHC 33.3 g/dL (31.0-37.0); MCV 85.6 fL (80.0-100.0); Mean Platelet Volume 6.8; Platelet Count 250 k/uL (150-450); RBC 4.13 m/uL (4.30-5.90); RDW 15.1 % (11.5-15.5); WBC 10.5 k/uL (3.8-10.6)
[2018-05-04 00:08] LABS: Albumin/Globulin Ratio 1.43 (1.60-3.17); Anion Gap 13.8 mmol/L (4.00-12.00); Calcium 8.8 mg/dL (8.7-10.3); Carbon Dioxide 17.2 mmol/L (21.6-31.8); Globulin 2.8 g/dL (1.6-3.3); Potassium 5.1 mmol/L (3.5-5.5); Total Bilirubin 0.2 mg/dL (0.3-1.2); Total Protein 6.8 g/dL (6.2-8.2)
[2018-05-04 02:20] LABS: Hemoglobin A1C 7.5 % (4.0-6.0)
== END ==
LOC: LABWHC1 14:14
PROVIDERS: ATTEND Surgery Vascular Surgery
DX: E13.621 Other specified diabetes mellitus with foot ulcer (principal); E63.8 Other specified nutritional deficiencies; Z12.5 Encounter for screening for malignant neoplasm of prostate
CPT/HCPCS: 84134; 80053; 85027; 82043; 82570; 83036; 36415; G0103

== ENCOUNTER 2020-04-23 15:55 | Inpatient (IN) | payer MEDICARE ==
[2020-04-23] MEDS ORDERED: HYDROmorphone 1 MG/ML 1 ML SYRINGE IVP STA (16:33)
[2020-04-23 16:58] LABS: Basophils # (A) 0.1 k/uL (0-0.2); Basophils % (A) 1 %; Eosinophils # (A) 0.3 k/uL (0-0.7); Eosinophils % (A) 3 %; HCT 35.9 % (39.0-53.0); Lymphocytes # (A) 1.3 k/uL (1.0-4.8); Lymphocytes % (A) 16 %; MCH 29.8 pg (25.0-35.0); MCHC 33.5 g/dL (31.0-37.0); MCV 88.9 fL (80.0-100.0); Mean Platelet Volume 8.1; Monocytes # (A) 0.5 k/uL (0-1.0); Monocytes % (A) 6 %; Neutrophils # (A) 6.1 k/uL (1.3-7.7); Neutrophils % (A) 73 %; Platelet Count 310 k/uL (150-450); RBC 4.03 m/uL (4.30-5.90); WBC 8.4 k/uL (3.8-10.6)
[2020-04-23 17:12] LABS: Albumin 3.6 g/dL (3.5-5.0); Calcium 9.5 mg/dL (8.4-10.2); Magnesium 1.7 mg/dL (1.6-2.3); Potassium 4.7 mmol/L (3.5-5.1); Total Bilirubin 0.5 mg/dL (0.2-1.3); Total Protein 7.3 g/dL (6.3-8.2)
[2020-04-23] MEDS ORDERED: SODIUM CHLORIDE 0.9% 1,000 ML IV STA ×2 (18:21)
[2020-04-23] MEDS ORDERED: AMPICILLIN-SULBACTAM 3 GM in SODIUM CHLORIDE 0.9% 100 ML IVPB STA (18:21)
--- NOTE | 2020-04-23 18:38 | ED ---
Wound/Laceration HPI - General Chief Complaint: Wound/Laceration Stated Complaint: infection in leg Time Seen by Provider: 04/23/20 16:01 Source: patient, family, RN notes reviewed Mode of arrival: wheelchair Limitations: no limitations - History of Present Illness Initial Comments: This is a 69-year-old male with a history of diabetes also history of a prior [id number] amputation of the right leg who years now presenting with complaints of left leg cellulitis and chronic wound. He was sent here from the wound clinic with failed treatment. Dr. Lee has seen the patient sent here for admission and inpatient evaluation and treatment. Patient self denies any fevers chills or sweats she's had increased weeping of the left leg he has a ankle wound is not healing does have cellulitic changes except for the knee down to the foot. No other complaints or modifying factors at this time - Related Data Home Medications Medication Instructions Recorded Confirmed metFORMIN HCL [Glucophage] 1,000 mg PO BID 11/10/14 06/21/18 Insuln Asp Prt/Insulin Aspart 60 unit SQ BID 09/07/17 06/21/18 [NovoLOG MIX 70-30 VIAL] Cetirizine HCl [Zyrtec] 10 mg PO DAILY 11/09/17 06/21/18 Escitalopram Oxalate [Lexapro] 10 mg PO DAILY 11/09/17 06/21/18 traZODone HCL 25 - 50 mg PO HS 11/09/17 06/21/18 Lisinopril-Hctz 20-12.5 mg 1 tab PO DAILY 11/30/17 06/21/18 [Zestoretic 20-12.5] Naproxen Sodium [Aleve] 220 mg PO Q12HR PRN 06/07/18 06/21/18 Previous Rx's Medication Instructions Recorded Amoxic-Pot Clav 875-125Mg 1 tab PO Q12HR #28 tablet 08/12/18 [Augmentin 875-125] Allergies Allergy/AdvReac Type Severity Reaction Status Date / Time No Known Allergies Allergy Verified 04/23/20 16:05 Review of Systems ROS Statement: Those systems with pertinent positive or pertinent negative responses have been documented in the HPI. ROS Other: All systems not noted in ROS Statement are negative. Past Medical History Past Medical History: Diabetes Mellitus, Eye Disorder, GERD/Reflux, Hyperlipidemia, Hypertension, Osteoarthritis (OA), Renal Disease Additional Past Medical History / Comment(s): HX of Chronic venous stasis wounds, IDDM type II, cataracts , arthritis in hands and knees, neuropathy hands and left foot., AKA right leg (june 2017- for gangrene), daughter states waiting for prothesis. , states patient able to stand for only a couple minutes- otherwise he is in bed or in chair., occasional GERD., Daughter states current wound on left lower leg. History of Any Multi-Drug Resistant Organisms: MRSA Date of last positivie culture/infection: 01/16/20 MDRO Source:: Left LEG Past Surgical History: Heart Catheterization Additional Past Surgical History / Comment(s): bilateral great toes amputated, 2nd toe lt foot partial amputation, multiple debridements of venous ulcers, colonoscopy, surgery as a child for undescended testicle., ABOVE THE KNEE AMPUTATION RIGHT LEG (JUNE 2017-[facility]) Past Anesthesia/Blood Transfusion Reactions: No Reported Reaction Past Psychological History: Anxiety, Depression Smoking Status: Current every day smoker Past Alcohol Use History: Occasional Past Drug Use History: None Reported - Past Family History Father Family Medical History: Cancer Additional Family Medical History / Comment(s): Father from brain cancer Mother Family Medical History: Eye Disorder Additional Family Medical History / Comment(s): Glaucoma. Mother is . General Exam - General Exam Comments Initial Comments: This is a well-developed well-nourished awake alert oriented times 3 male Limitations: no limitations General appearance: alert, in no apparent distress Head exam: Present: atraumatic, normocephalic, normal inspection Eye exam: Present: normal appearance, PERRL, EOMI. Absent: scleral icterus, conjunctival injection, periorbital swelling ENT exam: Present: normal exam, mucous membranes moist Neck exam: Present: normal inspection. Absent: tenderness, meningismus, lymphadenopathy Respiratory exam: Present: normal lung sounds bilaterally. Absent: respiratory distress, wheezes, rales, rhonchi, stridor Cardiovascular Exam: Present: regular rate, normal rhythm, normal heart sounds. Absent: systolic murmur, diastolic murmur, rubs, gallop, clicks GI/Abdominal exam: Present: soft, normal bowel sounds. Absent: distended, tenderness, guarding, rebound, rigid Extremities exam: Present: full ROM, normal capillary refill, other (Right-sided [id number]" with complete healing of the wound. Left lower extremity is in dressing with evidence of weeping through the dressing which was just applied recently. This was not taken down as it was just applied. No evidence of lymphangitis proximal to the left knee.). Absent: tenderness, pedal edema, joint swelling, calf tenderness Back exam: Present: normal inspection Neurological exam: Present: alert, oriented X3, CN II-XII intact Psychiatric exam: Present: normal affect, normal mood Skin exam: Present: warm, dry, intact, normal color. Absent: rash Course Vital Signs 04/23/20 04/23/20 15:59 18:31 Temperature 98.4 F Pulse Rate 96 97 Respiratory 20 17 Rate Blood Pressure 136/92 125/65 O2 Sat by Pulse 99 98 Oximetry - Reevaluation(s) Reevaluation #1: 04/23/20 18:52 The patient does have elevated lactic acid this is more than likely secondary to viral depletion as opposed to the left lower extremity cellulitis who vital signs are stable he is afebrile. Medical Decision Making - Medical Decision Making I did discuss findings with patient has as well as with Dr. Lee initially. Patient be admitted for inpatient evaluation and treatment I did discuss the case with Dr. Nails - Lab Data Result diagrams: 04/23/20 16:40 04/23/20 16:40 Lab Results 04/23/20 04/23/20 04/23/20 Range/Units 16:40 16:40 16:40 WBC 8.4 (3.8-10.6) k/uL RBC 4.03 L (4.30-5.90) m/uL Hgb 12.0 L (13.0-17.5) gm/dL Hct 35.9 L (39.0-53.0) % MCV 88.9 (80.0-100.0) fL MCH 29.8 (25.0-35.0) pg MCHC 33.5 (31.0-37.0) g/dL RDW 15.0 (11.5-15.5) % Plt Count 310 (150-450) k/uL MPV 8.1 Neutrophils % 73 % Lymphocytes % 16 % Monocytes % 6 % Eosinophils % 3 % Basophils % 1 % Neutrophils # 6.1 (1.3-7.7) k/uL Lymphocytes # 1.3 (1.0-4.8) k/uL Monocytes # 0.5 (0-1.0) k/uL Eosinophils # 0.3 (0-0.7) k/uL Basophils # 0.1 (0-0.2) k/uL Sodium 133 L (137-145) mmol/L Potassium 4.7 (3.5-5.1) mmol/L Chloride 102 (98-107) mmol/L Carbon Dioxide 18 L (22-30) mmol/L Anion Gap 13 mmol/L BUN 52 H (9-20) mg/dL Creatinine 1.40 H (0.66-1.25) mg/dL Est GFR (CKD-EPI)AfAm 60 (>60 ml/min/1.73 sqM) Est GFR (CKD-EPI)NonAf 52 (>60 ml/min/1.73 sqM) Glucose 303 H (74-99) mg/dL Plasma Lactic Acid Ata 3.4 H* (0.7-2.0) mmol/L Calcium 9.5 (8.4-10.2) mg/dL Magnesium 1.7 (1.6-2.3) mg/dL Total Bilirubin 0.5 (0.2-1.3) mg/dL AST 20 (17-59) U/L ALT 21 (4-49) U/L Alkaline Phosphatase 111 (38-126) U/L Creatine Kinase 65 (55-170) U/L Total Protein 7.3 (6.3-8.2) g/dL Albumin 3.6 (3.5-5.0) g/dL Disposition Clinical Impression: Left leg cellulitis, Failure of outpatient treatment, Lactic acidosis, Dehydration, Renal insufficiency syndrome Disposition: ADMITTED IP TO THIS HOSP Condition: Fair Referrals: Rula Leggett MD [Primary Care Provider] - 1-2 days
[2020-04-23] MEDS ORDERED: NALOXONE 0.4 MG/ML 1 ML VIAL IV PRN (18:52)
[2020-04-23] MEDS ORDERED: metFORMIN 500 MG TAB PO SCH (21:00)
[2020-04-23 22:59] LABS: Glucose,Whole Blood 301 mg/dL (75-99)
[2020-04-23] MEDS: INSULN ASP PRT/INSULIN ASPART 100 UNIT/ML 10 ML VIAL SQ SCH (23:12)
[2020-04-23] MEDS: AMPICILLIN-SULBACTAM 1.5 GM in SODIUM CHLORIDE 0.9% 50 ML IVPB SCH (23:12)
[2020-04-23] MEDS: INSULIN ASPART (NovoLOG) 100 UNIT/ML VIAL SQ SCH (23:12)
[2020-04-23] MEDS: traZODone HCL 50 MG TAB PO SCH (23:13)
[2020-04-23] MEDS: ACETAMINOPHEN TAB 325 MG TAB PO PRN (23:13)
[2020-04-23] MEDS ORDERED: VANCOMYCIN IV PER PHARMACY 1 EACH MISC MISCELLANE PRN (23:45)
[2020-04-23] MEDS ORDERED: SODIUM CHLORIDE 0.9% 1,000 ML IV ONE (23:48)
[2020-04-23] MEDS ORDERED: MAGNESIUM SULFATE-D5W PMX 1 GM in DEXTROSE/WATER 1 100ML.BAG IVPB ONE (23:49)
[2020-04-23] MEDS ORDERED: VANCOMYCIN 2,250 MG in SODIUM CHLORIDE 0.9% 500 ML 500 ML IVPB STA (23:56)
--- NOTE | 2020-04-24 00:03 | P.HPIM ---
History of Present Illness H&P Date: 04/23/20 Chief Complaint: cellulitis 69 year old male with diabetes mellitus, hypertension, obesity, peripheral vascular disease status post right AKA Patient was sent in from wound clinic where he follows up for the past couple months for left leg stasis venous ulcers he's been following up with Dr. Otto however today due to worsening symptoms worsening erythema induration and weeping wounds he was sent here due to failed outpatient therapy for further management. Patient denies any fevers or chills he denies any trouble breathing or chest pain he denies any abdominal pain or GI symptoms. He denies any GI bleeding. Patient does report worsening swelling and weeping wounds from his left leg. With increased pain with the slightest touch. For which she grew concerned regarding infections which she had experienced in the past he has not been on any antibiotics recently. Patient also complains about lower back and buttocks sores. He lives with his daughter was been taking care of him he denies any recent traveling or hospitalization. In the ED blood work showed that he has acute kidney injury, chronic anemia, lactic acidosis. He was suspected to have cellulitis started on antibiotics and was given IV fluids and admitted for further evaluation Review of Systems Pertinent positives as noted in HPI. All other systems were reviewed and are negative Past Medical History Past Medical History: Diabetes Mellitus, Eye Disorder, GERD/Reflux, Hyperlipidemia, Hypertension, Osteoarthritis (OA), Renal Disease Additional Past Medical History / Comment(s): HX of Chronic venous stasis wounds, IDDM type II, cataracts , arthritis in hands and knees, neuropathy munguia ds and left foot., AKA right leg (june 2017- for gangrene), daughter states waiting for prothesis. , states patient able to stand for only a couple minutes- otherwise he is in bed or in chair., occasional GERD., Daughter states current wound on left lower leg. History of Any Multi-Drug Resistant Organisms: MRSA Date of last positivie culture/infection: 01/16/20 MDRO Source:: Left LEG Past Surgical History: Heart Catheterization Additional Past Surgical History / Comment(s): bilateral great toes amputated, 2nd toe lt foot partial amputation, multiple debridements of venous ulcers, colonoscopy, surgery as a child for undescended testicle., ABOVE THE KNEE AMPUTATION RIGHT LEG (JUNE 2017-[facility]) Past Anesthesia/Blood Transfusion Reactions: No Reported Reaction Past Psychological History: Anxiety, Depression Additional Psychological History / Comment(s): . Smoking Status: Current every day smoker Past Alcohol Use History: Occasional Additional Past Alcohol Use History / Comment(s): Pt chews cigars and smokes them occasionally.no alcohol currently Past Drug Use History: None Reported - Past Family History Father Family Medical History: Cancer Additional Family Medical History / Comment(s): Father from brain cancer Mother Family Medical History: Eye Disorder Additional Family Medical History / Comment(s): Glaucoma. Mother is . Medications and Allergies Home Medications Medication Instructions Recorded Confirmed Type Escitalopram Oxalate [Lexapro] 15 mg PO DAILY 11/09/17 04/23/20 History traZODone HCL 50 mg PO HS 11/09/17 04/23/20 History Lisinopril-Hctz 20-12.5 mg 1 tab PO DAILY 11/30/17 04/23/20 History [Zestoretic 20-12.5] Insulin NPH Hum/Reg Insulin Hm 80 units SQ BID 04/23/20 04/23/20 History [Novolin 70-30 Flexpen] Magnesium Oxide [Mag-Ox] 250 mg PO DAILY 04/23/20 04/23/20 History diphenhydrAMINE [Benadryl] 25 mg PO DAILY 04/23/20 04/23/20 History metFORMIN HCL 1,000 mg PO BID 04/23/20 04/23/20 History Allergies Allergy/AdvReac Type Severity Reaction Status Date / Time No Known Allergies Allergy Verified 04/23/20 18:54 Physical Exam Vitals: Vital Signs Temp Pulse Pulse Resp BP BP Pulse Ox 04/23/20 22:26 98.1 F 100 135/63 94 L 04/23/20 18:31 97 17 125/65 98 04/23/20 15:59 98.4 F 96 20 136/92 99 Intake and Output 04/23/20 04/23/20 04/24/20 14:59 22:59 06:59 Output Total 50 Balance -50 Output: Urine 50 Other: # Voids 1 Weight 158.757 kg Constitutional: No acute distress, conversant, pleasant, morbidly obese Eyes: Anicteric sclerae, moist conjunctiva, Pupils equal round reactive to light ENMT: NC/AT Oropharynx clear, no erythema, or exudates Neck: Supple, FROM, no masses, or JVD No carotid bruits No thyromegaly Lungs: Clear to auscultation Clear to percussion Normal respiratory effort, no accessory muscle use Cardiovascular: Heart regular in rate and rhythm, No murmurs, gallops, or rubs Edema over the left lower leg, right AKA Abdominal: Soft, obese limiting exam Nontender, no guarding, rebound or rigidity Abdomen moving with respiration Normoactive bowel sounds No palpable mass No abdominal wall hernia noted Skin: Patient has surgical wrapping over his left lower extremity however portions of it over the lateral malleolus area looks soiled with blood, visible portion of the proximal leg shows some induration and erythema and swelling o therwise Normal temperature, tone, texture, turgor No subcutaneous nodules Extremities: Right AKA left leg is in surgical dressing No digital cyanosis No clubbing Radial pulses intact and symmetrical Tenderness over the left leg with light touch due to possible anson lulitis Psychiatric: Alert and oriented to person, place and time Appropriate affect fair judgement Neuro Muscles Strength 4/5 over bilateral upper extremities, and left lower extremity Sensation to light touch grossly present throughout Cranial nerves II-XII grossly intact No focal sensory deficits Lymphatics: no palpable cervical or supraclavicular , or inguinal lymph nodes Results CBC & Chem 7: 04/23/20 16:40 04/23/20 16:40 Labs: Abnormal Lab Results - Last 24 Hours (Table) 04/23/20 04/23/20 04/23/20 Range/Units 16:40 16:40 16:40 RBC 4.03 L (4.30-5.90) m/uL Hgb 12.0 L (13.0-17.5) gm/dL Hct 35.9 L (39.0-53.0) % Sodium 133 L (137-145) mmol/L Carbon Dioxide 18 L (22-30) mmol/L BUN 52 H (9-20) mg/dL Creatinine 1.40 H (0.66-1.25) mg/dL Glucose 303 H (74-99) mg/dL POC Glucose (mg/dL) (75-99) mg/dL Plasma Lactic Acid Ata 3.4 H* (0.7-2.0) mmol/L 04/23/20 04/23/20 04/23/20 Range/Units 20:06 22:49 22:58 RBC (4.30-5.90) m/uL Hgb (13.0-17.5) gm/dL Hct (39.0-53.0) % Sodium (137-145) mmol/L Carbon Dioxide (22-30) mmol/L BUN (9-20) mg/dL Creatinine (0.66-1.25) mg/dL Glucose (74-99) mg/dL POC Glucose (mg/dL) 301 H (75-99) mg/dL Plasma Lactic Acid Ata 4.3 H* 4.1 H* (0.7-2.0) mmol/L Thrombosis Risk Factor Assmnt - Choose All That Apply Each Factor Represents 1 point: Obesity (BMI >25) Each Risk Factor Represents 2 Points: Age 61-74 years Thrombosis Risk Factor Assessment Total Risk Factor Score: 3 Thrombosis Risk Factor Assessment Level: Moderate Risk Assessment and Plan Assessment: Cellulitis of the left leg with chronic venous stasis ulcers AK I Lactic acidosis Diabetes mellitus with hyperglycemia, A1c 1 year ago was Chronic anemia Hyponatremia Follow-up cultures Patient started on antibiotic was given Unasyn in the ED, add vancomycin IV fluid hydration with normal saline 2 L boluses and then continue with 150 mL per hour Resume home insulin long-acting Insulin sliding scale Pain control with opiates Hold JAMAR inhibitor and diuretics due to AK I Check A1c Local wound care Vascular consult to Dr. Otto who knows the patient from wound clinic Monitor sodium Follow-up lactic acid Surrogate decision-maker: noe [phone] CODE STATUS: full code DVT prophylaxis: Heparin subcu 3 times a day Discussed with: Patient, ER, RN Anticipated length of stay more than [address]: Home A total of 75 minutes was spent on the care of this complex patient more than 50% of the time was spent in counseling and care coordination.
[2020-04-24 01:25] LABS: Appearance,Urine Cloudy (Clear); Bacteria,Urine Rare /hpf; Bilirubin,Urine Negative (Negative); Blood,Urine Trace (Negative); Color,Urine Yellow; Glucose,Urine (UA) Trace (Negative); Hyaline Casts,Urine 61 /lpf (0-2); Ketones,Urine Negative (Negative); Leukocyte Esterase,Urine Small (Negative); Mucus,Urine Rare /hpf; Nitrite,Urine Negative (Negative); Protein,Urine 1+ (Negative); RBC,Urine 20 /hpf (0-5); Specific Gravity,Urine 1.027 (1.001-1.035); Squamous Epithelial Cell,Urine 1 /hpf (0-4); Urobilinogen,Urine <2.0 mg/dL (<2.0); WBC,Urine 10 /hpf (0-5)
[2020-04-24] MEDS ORDERED: SODIUM CHLORIDE 0.9% 1,000 ML IV ONE (03:00)
[2020-04-24] MEDS ORDERED: ONDANSETRON 4 MG/2 ML VIAL IVP PRN (03:02)
[2020-04-24] MEDS: MORPHINE SULFATE 4 MG/ML SYRINGE IVP PRN ×3 (03:33→16:05)
[2020-04-24] MEDS: NYSTATIN 100,000 UNIT/GM POWD 15 GM TOPICAL SCH ×4 (04:02→22:44)
[2020-04-24] MEDS: AMPICILLIN-SULBACTAM 1.5 GM in SODIUM CHLORIDE 0.9% 50 ML IVPB SCH ×3 (05:19→17:03)
[2020-04-24 07:28] LABS: Glucose,Whole Blood 156 mg/dL (75-99)
[2020-04-24] MEDS: diphenhydrAMINE 25 MG CAP PO SCH (08:17)
[2020-04-24] MEDS: INSULIN ASPART (NovoLOG) 100 UNIT/ML VIAL SQ SCH ×4 (08:17→22:43)
[2020-04-24] MEDS: INSULN ASP PRT/INSULIN ASPART 100 UNIT/ML 10 ML VIAL SQ SCH ×2 (08:18→22:49)
[2020-04-24] MEDS: HEPARIN SODIUM,PORCINE 5,000 UNIT/ML 1 ML VIAL SQ SCH ×2 (08:18→16:05)
--- NOTE | 2020-04-24 08:24 | CDI ---
Documentation Clarification Form Date: 04/24/2020 08:00:49 AM From: Abbey Willis RN CCDS Admit Date: 04/24/2020 05:08:00 AM Patient Name: Reid Frost Visit Number: [id number] Discharge Date: ATTENTION: The Clinical Documentation Specialists (CDI) and [facility] Coding Staff appreciate your assistance in clarifying documentation. Please respond to the clarification below the line at the bottom and electronically sign. The CDI & [facility] Coding staff will review the response and follow-up if needed. Please note: Queries are made part of the Legal Health Record. If you have any questions, please contact the author of this message via ITS. Dr. Carmela Nails The patient has IDDM type II, as indicated on H&P 05/03 medical history. History/Risk Factors: 69-year-old male presents to the ED with left leg cellulitis and chronic wound. Found in ED report 04/23. Medical History found in H&P 04/23: DM2, Right leg AKA and neuropathy in hands and left foot. Clinical Indicators: 04/23 H&P Skin assessment: Tenderness over the left leg with light touch due to possible cellulitis. Left lower extremity has surgical dressing over the lateral malleolus area with induration and erythema and swelling. 04/23 VSS: B/P 136/92; HR 96; Temp 98.4 F Oral; RR 20; SpO2 99% room air. 04/23 Labs: Wbc 8.4; Glucose 303; Lactic acid 3.4 Treatment: 04/23 0.9NS 3L IV bolus; 04/23 Vancomycin IVPB x 1; 04/23 Metformin HCL 1,000 mg PO x 1; Ampicillin IVPB x1; 04/23 Novolog 70/30 80 units SQ QHR SINDHU; 04/23 Novolog SQ ACHS SINDHU; 04/24 Ampicillin IVPB Q6HR; 04/24 Vancomycin IVPB Q16H. Please document any body system complications or specific manifestations related to the diabetes: Left leg cellulitis Associated with Diabetes No association with Diabetes Other condition Unable to Determine (Last Revision: December 2016) Left Leg cellulitis associated with diabetes MTDD
[2020-04-24] MEDS ORDERED: LISINOPRIL-HCTZ 20-12.5 MG 1 EACH TAB PO SCH (09:00)
[2020-04-24] MEDS ORDERED: MAGNESIUM OXIDE 400 MG TAB PO SCH (09:00)
[2020-04-24] MEDS: ESCITALOPRAM 5 MG TAB PO SCH (09:28)
[2020-04-24 09:33] LABS: MCH 28.1 pg (27.0-32.0); MCV 90.6 fL (80.0-97.0); Mean Platelet Volume 10.6 fL (9.5-12.2); Platelet Count 252 X 10*3/uL (140-440); RDW 15.1 % (11.5-14.5); WBC 8.34 X 10*3/uL (4.50-10.00)
[2020-04-24 10:24] LABS: African American GFR (CKD) 47.3 (60.0-200.0); Albumin 3.3 g/dL (3.80-4.90); Albumin/Globulin Ratio 1.57 (1.60-3.17); Anion Gap 11.2 mmol/L (4.00-12.00); BUN/Creat Ratio 34.12 Ratio (12.00-20.00); Calcium 7.8 mg/dL (8.7-10.3); Carbon Dioxide 18.8 mmol/L (21.6-31.8); Globulin 2.1 g/dL (1.6-3.3); Magnesium 1.8 mg/dL (1.5-2.4); Non-African American GFR(CKD) 40.8 (60.0-200.0); Potassium 4.3 mmol/L (3.5-5.5); Total Bilirubin 0.2 mg/dL (0.3-1.2); Total Protein 5.4 g/dL (6.2-8.2)
[2020-04-24 10:26] LABS: Basophils # (A) 0.03 X 10*3/uL (0.00-0.10); Basophils % (A) 0.4 %; Eosinophils # (A) 0.01 X 10*3/uL (0.04-0.35); Eosinophils % (A) 0.1 %; Lymphocytes # (A) 0.89 X 10*3/uL (0.90-5.00); Lymphocytes % (A) 10.7 %; Monocytes # (A) 0.89 X 10*3/uL (0.20-1.00); Monocytes % (A) 10.7 %; Neutrophils # (A) 6.45 X 10*3/uL (1.80-7.70); Neutrophils % (A) 77.3 %
[2020-04-24 11:34] LABS: Glucose,Whole Blood 107 mg/dL (75-99)
--- NOTE | 2020-04-24 13:34 | P.PN ---
<John Cruz - Last Filed: 04/24/20 12:46> Subjective Progress Note Date: 04/24/20 Principal diagnosis: Venous stasis ulcerations with surrounding cellulitis, failed outpatient treatment Hospital Course: Patient is a 69-year-old male with a past medical history of peripheral vascular disease, hypertension, insulin-dependent diabetes mellitus type 2, depression, history of MRSA and right AKA (2018). Patient presented to [facility] for evaluation of his wounds to his left lower extremity. Patient has venous stasis ulcerations to the left lower extremity with surrounding cellulitis. He has been under outpatient treatment with [facility] with Dr. Otto. Patient was sent to the hospital by wound care clinic for in itiation of IV antiobiotics after failing outpatient treatment. Patient was found to have lactic acidosis initial lactate of 4.1 resolving after sepsis bolus now down to 1.4. Physical exam: Patient seen and fully evaluated at the bedside. Reports feeling well this morning. Patient did report that he experienced some uncontrolled 10/10 pain to his left lower leg overnight and was started on Morphine at that time. Pt states that currently pain remains, but is controlled around 4/10. He denies experiencing any recent fevers, chills, diaphoresis, headache, chest pain, palpitations, shortness of breath, abdominal pain, nausea, or vomiting. General: non toxic, no distress, appears at stated age Derm: warm, dry. Venous stasis ulcerations with surrounding cellulitis to left lower extremity. Head: atraumatic, normocephalic, symmetric Eyes: No lid lag, anicteric sclera Mouth: no lip lesion, mucus membranes moist Cardiovascular: S1S2 reg rate and rhythm, no murmur, rub or gallop. Cap refill less than 2 seconds. Lungs: Respirations even, regular, and unlabored on room air. CTA bilaterally, no rhonchi, no rales, no wheezing, and no accessory muscle use Abdominal: Obese abdomen, nontender to palpation, no guarding, no appreciable organomegaly Ext: Patient has a right AKA. Left lower extremity venous stasis ulcerations with surrounding cellulitis with erythema, induration, and significant seepage. Unable to visualize entire wound area, dressing being soaked off by RN. Neuro: CN II-XI grossly intact, no focal neuro deficits Psych: Alert, oriented, appropriate affect Assessment and Plan of Care: Venous stasis ulcerations with surrounding cellulitis -Continue IV antibiotics: vancomycin and Unasyn -Consult vascular surgery, Dr. Otto -Consult wound care -Consult infectious disease, Dr. Del Rosario. -Blood cultures and wound cultures pending. -Symptomatic care and pain management. -PT/OT consult and case management notified of likely homecare assistance needed upon discharge. Acute kidney injury, worsening -Acute kidney injury with initial BUN of 52, creatinine 1.40, and GFR 52. Morning labs revealed slightly worsening renal function with BUN of 58, creatinine 1.7 and GFR of 40.8. -Patient was given sepsis bolus along with continued gentle hydration. -Lisinopril held. -Pharmacy to continue dosing vancomycin based on renal function. -Caution with nephrotoxic agents. Lactic acidosis, resolved -Initial lactate 4.1, sepsis bolus given with repeat lactate of 1.4. Normocytic Normochromic Anemia -Initial hemoglobin of 12.0 down to 9.0 this morning. Patient did receive >4L of fluid with sepsis bolus yesterday and is showing no signs of active bleeding. -3 gram drop in hemoglobin likely secondary to dilution, however we will repeat CBC this afternoon for verification and continue to monitor closely. Insulin-dependent diabetes mellitus type 2 -Resume home insulin aspart -Glycemic protocol with NovoLog sliding scale -Heart healthy carb consistent diet. Sacral/coccygeal stage II pressure ulcer with surrounding excoriation -Wound care consult placed -Patient to be encouraged to turn every 2 hours, offloading pressure to coccyx/sacral region. -PT/OT consult placed. Hyponatremia, resolved Hypertension, stable -Hypertension stable at this time. We are holding lisinopril secondary to laura nt's acute kidney injury. Depression -Patient reports stable since having his medications adjusted. We will continue daily medication regimen of Lexapro and trazodone. CODE STATUS: Full code DVT prophylaxis: Heparin Discussed with: Patient and MARIO Adhikari Anticipated discharge date: Clinical course to determine Anticipated discharge place: Home with home care A total of 35 minutes was spent on the care of this complex patient more than 50% of the time was spent in counseling and care coordination. Objective - Vital Signs Vital signs: Vital Signs Temp 98.1 F 04/24/20 07:18 Pulse 98 04/24/20 07:18 Resp 14 02/09/21 07:18 BP 164/76 04/24/20 07:18 Pulse Ox 98 04/24/20 07:18 Intake & Output 04/23/20 04/24/20 04/24/20 18:59 06:59 18:59 Output Total 500 500 Balance -500 -500 Weight 158.757 kg 158.757 kg Output: Urine 500 500 Other: Voiding Method Urinal # Voids 1 - Labs CBC & Chem 7: 04/24/20 04:18 04/24/20 04:18 Labs: Abnormal Lab Results - Last 24 Hours (Table) 04/23/20 04/23/20 04/23/20 Range/Units 16:40 16:40 16:40 RBC 4.03 L (4.30-5.90) m/uL Hgb 12.0 L (13.0-17.5) gm/dL Hct 35.9 L (39.0-53.0) % MCHC (32.0-37.0) g/dL RDW (11.5-14.5) % Immature Gran # (0.00-0.04) X 10*3/uL Lymphocytes # (0.90-5.00) X 10*3/uL Eosinophils # (0.04-0.35) X 10*3/uL Sodium 133 L (137-145) mmol/L Carbon Dioxide 18 L (22-30) mmol/L BUN 52 H (9-20) mg/dL Creatinine 1.40 H (0.66-1.25) mg/dL Est GFR (CKD-EPI)AfAm (60.0-200.0) Est GFR (CKD-EPI)NonAf (60.0-200.0) BUN/Creatinine Ratio (12.00-20.00) Ratio Glucose 303 H (74-99) mg/dL POC Glucose (mg/dL) (75-99) mg/dL Plasma Lactic Acid Ata 3.4 H* (0.7-2.0) mmol/L Calcium (8.7-10.3) mg/dL Total Bilirubin (0.3-1.2) mg/dL Total Protein (6.2-8.2) g/dL Albumin (3.80-4.90) g/dL Albumin/Globulin Ratio (1.60-3.17) g/dL Urine Protein (Negative) Urine Glucose (UA) (Negative) Urine Blood (Negative) Ur Leukocyte Esterase (Negative) Urine RBC (0-5) /hpf Urine WBC (0-5) /hpf Urine Bacteria (None) /hpf Hyaline Casts (0-2) /lpf Urine Mucus (None) /hpf 04/23/20 04/23/20 04/23/20 Range/Units 20:06 22:49 22:58 RBC (4.30-5.90) m/uL Hgb (13.0-17.5) gm/dL Hct (39.0-53.0) % MCHC (32.0-37.0) g/dL RDW (11.5-14.5) % Immature Gran # (0.00-0.04) X 10*3/uL Lymphocytes # (0.90-5.00) X 10*3/uL Eosinophils # (0.04-0.35) X 10*3/uL Sodium (137-145) mmol/L Carbon Dioxide (22-30) mmol/L BUN (9-20) mg/dL Creatinine (0.66-1.25) mg/dL Est GFR (CKD-EPI)AfAm (60.0-200.0) Est GFR (CKD-EPI)NonAf (60.0-200.0) BUN/Creatinine Ratio (12.00-20.00) Ratio Glucose (74-99) mg/dL POC Glucose (mg/dL) 301 H (75-99) mg/dL Plasma Lactic Acid Ata 4.3 H* 4.1 H* (0.7-2.0) mmol/L Calcium (8.7-10.3) mg/dL Total Bilirubin (0.3-1.2) mg/dL Total Protein (6.2-8.2) g/dL Albumin (3.80-4.90) g/dL Albumin/Globulin Ratio (1.60-3.17) g/dL Urine Protein (Negative) Urine Glucose (UA) (Negative) Urine Blood (Negative) Ur Leukocyte Esterase (Negative) Urine RBC (0-5) /hpf Urine WBC (0-5) /hpf Urine Bacteria (None) /hpf Hyaline Casts (0-2) /lpf Urine Mucus (None) /hpf 04/24/20 04/24/20 04/24/20 Range/Units 01:00 01:42 04:18 RBC 3.20 L (4.30-5.90) m/uL Hgb 9.0 L (13.0-17.5) gm/dL Hct 29.0 L (39.0-53.0) % MCHC 31.0 L (32.0-37.0) g/dL RDW 15.1 H (11.5-14.5) % Immature Gran # 0.07 H (0.00-0.04) X 10*3/uL Lymphocytes # 0.89 L (0.90-5.00) X 10*3/uL Eosinophils # 0.01 L (0.04-0.35) X 10*3/uL Sodium (137-145) mmol/L Carbon Dioxide (22-30) mmol/L BUN (9-20) mg/dL Creatinine (0.66-1.25) mg/dL Est GFR (CKD-EPI)AfAm (60.0-200.0) Est GFR (CKD-EPI)NonAf (60.0-200.0) BUN/Creatinine Ratio (12.00-20.00) Ratio Glucose (74-99) mg/dL POC Glucose (mg/dL) (75-99) mg/dL Plasma Lactic Acid Ata 4.3 H* (0.7-2.0) mmol/L Calcium (8.7-10.3) mg/dL Total Bilirubin (0.3-1.2) mg/dL Total Protein (6.2-8.2) g/dL Albumin (3.80-4.90) g/dL Albumin/Globulin Ratio (1.60-3.17) g/dL Urine Protein 1+ H (Negative) Urine Glucose (UA) Trace H (Negative) Urine Blood Trace H (Negative) Ur Leukocyte Esterase Small H (Negative) Urine RBC 20 H (0-5) /hpf Urine WBC 10 H (0-5) /hpf Urine Bacteria Rare H (None) /hpf Hyaline Casts 61 H (0-2) /lpf Urine Mucus Rare H (None) /hpf 04/24/20 04/24/20 04/24/20 Range/Units 04:18 07:17 11:33 RBC (4.30-5.90) m/uL Hgb (13.0-17.5) gm/dL Hct (39.0-53.0) % MCHC (32.0-37.0) g/dL RDW (11.5-14.5) % Immature Gran # (0.00-0.04) X 10*3/uL Lymphocytes # (0.90-5.00) X 10*3/uL Eosinophils # (0.04-0.35) X 10*3/uL Sodium (137-145) mmol/L Carbon Dioxide 18.8 L (22-30) mmol/L BUN 58.0 H (9-20) mg/dL Creatinine 1.7 H (0.66-1.25) mg/dL Est GFR (CKD-EPI)AfAm 47.3 L (60.0-200.0) Est GFR (CKD-EPI)NonAf 40.8 L (60.0-200.0) BUN/Creatinine Ratio 34.12 H (12.00-20.00) Ratio Glucose (74-99) mg/dL POC Glucose (mg/dL) 156 H 107 H (75-99) mg/dL Plasma Lactic Acid Ata (0.7-2.0) mmol/L Calcium 7.8 L (8.7-10.3) mg/dL Total Bilirubin 0.2 L (0.3-1.2) mg/dL Total Protein 5.4 L (6.2-8.2) g/dL Albumin 3.30 L (3.80-4.90) g/dL Albumin/Globulin Ratio 1.57 L (1.60-3.17) g/dL Urine Protein (Negative) Urine Glucose (UA) (Negative) Urine Blood (Negative) Ur Leukocyte Esterase (Negative) Urine RBC (0-5) /hpf Urine WBC (0-5) /hpf Urine Bacteria (None) /hpf Hyaline Casts (0-2) /lpf Urine Mucus (None) /hpf <Carmela Nails - Last Filed: 04/24/20 13:43> Objective - Vital Signs Vital signs: Vital Signs Temp 98.3 F 04/24/20 13:40 Pulse 84 04/24/20 13:40 Resp 16 04/24/20 13:40 BP 158/50 04/24/20 13:40 Pulse Ox 96 04/24/20 13:40 Intake & Output 04/23/20 04/24/20 04/24/20 18:59 06:59 18:59 Output Total 500 500 Balance -500 -500 Weight 158.757 kg 158.757 kg Output: Urine 500 500 Other: Voiding Method Urinal # Voids 1 - Labs CBC & Chem 7: 04/24/20 04:18 04/24/20 04:18 Labs: Abnormal Lab Results - Last 24 Hours (Table) 04/23/20 04/23/20 04/23/20 Range/Units 16:40 16:40 16:40 RBC 4.03 L (4.30-5.90) m/uL Hgb 12.0 L (13.0-17.5) gm/dL Hct 35.9 L (39.0-53.0) % MCHC (32.0-37.0) g/dL RDW (11.5-14.5) % Immature Gran # (0.00-0.04) X 10*3/uL Lymphocytes # (0.90-5.00) X 10*3/uL Eosinophils # (0.04-0.35) X 10*3/uL Sodium 133 L (137-145) mmol/L Carbon Dioxide 18 L (22-30) mmol/L BUN 52 H (9-20) mg/dL Creatinine 1.40 H (0.66-1.25) mg/dL Est GFR (CKD-EPI)AfAm (60.0-200.0) Est GFR (CKD-EPI)NonAf (60.0-200.0) BUN/Creatinine Ratio (12.00-20.00) Ratio Glucose 303 H (74-99) mg/dL POC Glucose (mg/dL) (75-99) mg/dL Plasma Lactic Acid Ata 3.4 H* (0.7-2.0) mmol/L Calcium (8.7-10.3) mg/dL Total Bilirubin (0.3-1.2) mg/dL Total Protein (6.2-8.2) g/dL Albumin (3.80-4.90) g/dL Albumin/Globulin Ratio (1.60-3.17) g/dL Urine Protein (Negative) Urine Glucose (UA) (Negative) Urine Blood (Negative) Ur Leukocyte Esterase (Negative) Urine RBC (0-5) /hpf Urine WBC (0-5) /hpf Urine Bacteria (None) /hpf Hyaline Casts (0-2) /lpf Urine Mucus (None) /hpf 04/23/20 04/23/20 04/23/20 Range/Units 20:06 22:49 22:58 RBC (4.30-5.90) m/uL Hgb (13.0-17.5) gm/dL Hct (39.0-53.0) % MCHC (32.0-37.0) g/dL RDW (11.5-14.5) % Immature Gran # (0.00-0.04) X 10*3/uL Lymphocytes # (0.90-5.00) X 10*3/uL Eosinophils # (0.04-0.35) X 10*3/uL Sodium (137-145) mmol/L Carbon Dioxide (22-30) mmol/L BUN (9-20) mg/dL Creatinine (0.66-1.25) mg/dL Est GFR (CKD-EPI)AfAm (60.0-200.0) Est GFR (CKD-EPI)NonAf (60.0-200.0) BUN/Creatinine Ratio (12.00-20.00) Ratio Glucose (74-99) mg/dL POC Glucose (mg/dL) 301 H (75-99) mg/dL Plasma Lactic Acid Ata 4.3 H* 4.1 H* (0.7-2.0) mmol/L Calcium (8.7-10.3) mg/dL Total Bilirubin (0.3-1.2) mg/dL Total Protein (6.2-8.2) g/dL Albumin (3.80-4.90) g/dL Albumin/Globulin Ratio (1.60-3.17) g/dL Urine Protein (Negative) Urine Glucose (UA) (Negative) Urine Blood (Negative) Ur Leukocyte Esterase (Negative) Urine RBC (0-5) /hpf Urine WBC (0-5) /hpf Urine Bacteria (None) /hpf Hyaline Casts (0-2) /lpf Urine Mucus (None) /hpf 04/24/20 04/24/20 04/24/20 Range/Units 01:00 01:42 04:18 RBC 3.20 L (4.30-5.90) m/uL Hgb 9.0 L (13.0-17.5) gm/dL Hct 29.0 L (39.0-53.0) % MCHC 31.0 L (32.0-37.0) g/dL RDW 15.1 H (11.5-14.5) % Immature Gran # 0.07 H (0.00-0.04) X 10*3/uL Lymphocytes # 0.89 L (0.90-5.00) X 10*3/uL Eosinophils # 0.01 L (0.04-0.35) X 10*3/uL Sodium (137-145) mmol/L Carbon Dioxide (22-30) mmol/L BUN (9-20) mg/dL Creatinine (0.66-1.25) mg/dL Est GFR (CKD-EPI)AfAm (60.0-200.0) Est GFR (CKD-EPI)NonAf (60.0-200.0) BUN/Creatinine Ratio (12.00-20.00) Ratio Glucose (74-99) mg/dL POC Glucose (mg/dL) (75-99) mg/dL Plasma Lactic Acid Ata 4.3 H* (0.7-2.0) mmol/L Calcium (8.7-10.3) mg/dL Total Bilirubin (0.3-1.2) mg/dL Total Protein (6.2-8.2) g/dL Albumin (3.80-4.90) g/dL Albumin/Globulin Ratio (1.60-3.17) g/dL Urine Protein 1+ H (Negative) Urine Glucose (UA) Trace H (Negative) Urine Blood Trace H (Negative) Ur Leukocyte Esterase Small H (Negative) Urine RBC 20 H (0-5) /hpf Urine WBC 10 H (0-5) /hpf Urine Bacteria Rare H (None) /hpf Hyaline Casts 61 H (0-2) /lpf Urine Mucus Rare H (None) /hpf 04/24/20 04/24/20 04/24/20 Range/Units 04:18 07:17 11:33 RBC (4.30-5.90) m/uL Hgb (13.0-17.5) gm/dL Hct (39.0-53.0) % MCHC (32.0-37.0) g/dL RDW (11.5-14.5) % Immature Gran # (0.00-0.04) X 10*3/uL Lymphocytes # (0.90-5.00) X 10*3/uL Eosinophils # (0.04-0.35) X 10*3/uL Sodium (137-145) mmol/L Carbon Dioxide 18.8 L (22-30) mmol/L BUN 58.0 H (9-20) mg/dL Creatinine 1.7 H (0.66-1.25) mg/dL Est GFR (CKD-EPI)AfAm 47.3 L (60.0-200.0) Est GFR (CKD-EPI)NonAf 40.8 L (60.0-200.0) BUN/Creatinine Ratio 34.12 H (12.00-20.00) Ratio Glucose (74-99) mg/dL POC Glucose (mg/dL) 156 H 107 H (75-99) mg/dL Plasma Lactic Acid Ata (0.7-2.0) mmol/L Calcium 7.8 L (8.7-10.3) mg/dL Total Bilirubin 0.2 L (0.3-1.2) mg/dL Total Protein 5.4 L (6.2-8.2) g/dL Albumin 3.30 L (3.80-4.90) g/dL Albumin/Globulin Ratio 1.57 L (1.60-3.17) g/dL Urine Protein (Negative) Urine Glucose (UA) (Negative) Urine Blood (Negative) Ur Leukocyte Esterase (Negative) Urine RBC (0-5) /hpf Urine WBC (0-5) /hpf Urine Bacteria (None) /hpf Hyaline Casts (0-2) /lpf Urine Mucus (None) /hpf Assessment and Plan Assessment: Patient seen and evaluated by SUGEY, the original author of this note. I am in agreement with the subjective, physical exam, and assessment and plan as doc umented with No changes of the documented plan
[2020-04-24 13:59] LABS: Hemoglobin A1C 10.3 % (4.0-6.0)
--- NOTE | 2020-04-24 14:47 | P.GSCN ---
History of Present Illness History of present illness: 69 old white male, patient has a long-standing history of venous stasis ulcer. He is been coming to the wound clinic for local wound care. Patient came to the wound clinic with the venous stasis ulcer left lower extremity and there is induration and draping of the fluid from the left lower extremity with marked redness patient has a chronic venous ulcer on the left ankle medial aspect we've been treating with local wound care did patient has been admitted for antibiotic and local wound care Past history patient had a right above-knee amputation done me in the past patient has history of diabetes hypertension obesity Neck examination neck is supple no bruit appreciated Chest clear few crackles the lung bases Abdomen soft nontender Vascular examination femorals are 1+ bilateral patient has a marked cellulitis with some venous stasis ulcer left lower extremity and a chronic ulcer on the medial aspect aspect of the left ankle. 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 , states patient able to stand for only a couple minutes- otherwise he is in bed or in chair., occasional GERD., Daughter states current wound on left lower leg. History of Any Multi-Drug Resistant Organisms: MRSA Year Discovered:: 01/16/20 MDRO Source:: Left LEG Past Surgical History: Heart Catheterization Additional Past Surgical History / Comment(s): bilateral great toes amputated, 2nd toe lt foot partial amputation, multiple debridements of venous ulcers, colonoscopy, surgery as a child for undescended testicle., ABOVE THE KNEE AMPUTATION RIGHT LEG (JUNE 2017-[facility]) Past Anesthesia/Blood Transfusion Reactions: No Reported Reaction Past Psychological History: Anxiety, Depression Additional Psychological History / Comment(s): . Smoking Status: Current every day smoker Past Alcohol Use History: Occasional Additional Past Alcohol Use History / Comment(s): Pt chews cigars and smokes them occasionally.no alcohol currently Past Drug Use History: None Reported - Past Family History Father Family Medical History: Cancer Additional Family Medical History / Comment(s): Father from brain cancer Mother Family Medical History: Eye Disorder Additional Family Medical History / Comment(s): Glaucoma. Mother is . Medications and Allergies Home Medications Medication Instructions Recorded Confirmed Type Escitalopram Oxalate [Lexapro] 15 mg PO DAILY 11/09/17 04/23/20 History traZODone HCL 50 mg PO HS 11/09/17 04/23/20 History Lisinopril-Hctz 20-12.5 mg 1 tab PO DAILY 11/30/17 04/23/20 History [Zestoretic 20-12.5] Insulin NPH Hum/Reg Insulin Hm 80 units SQ BID 04/23/20 04/23/20 History [Novolin 70-30 Flexpen] Magnesium Oxide [Mag-Ox] 250 mg PO DAILY 04/23/20 04/23/20 History diphenhydrAMINE [Benadryl] 25 mg PO DAILY 04/23/20 04/23/20 History metFORMIN HCL 1,000 mg PO BID 04/23/20 04/23/20 History Allergies Allergy/AdvReac Type Severity Reaction Status Date / Time No Known Allergies Allergy Verified 04/23/20 18:54 Surgical - Exam Vital Signs Temp Pulse Resp BP Pulse Ox 98.4 F 96 20 136/92 99 04/23/20 15:59 04/23/20 15:59 04/23/20 15:59 04/23/20 15:59 04/23/20 15:59 Results - Labs 04/24/20 04:18 04/24/20 04:18 Abnormal Lab Results - Last 24 Hours (Table) 04/23/20 04/23/20 04/23/20 Range/Units 16:40 16:40 16:40 RBC 4.03 L (4.30-5.90) m/uL Hgb 12.0 L (13.0-17.5) gm/dL Hct 35.9 L (39.0-53.0) % MCHC (32.0-37.0) g/dL RDW (11.5-14.5) % Immature Gran # (0.00-0.04) X 10*3/uL Lymphocytes # (0.90-5.00) X 10*3/uL Eosinophils # (0.04-0.35) X 10*3/uL Sodium 133 L (137-145) mmol/L Carbon Dioxide 18 L (22-30) mmol/L BUN 52 H (9-20) mg/dL Creatinine 1.40 H (0.66-1.25) mg/dL Est GFR (CKD-EPI)AfAm (60.0-200.0) Est GFR (CKD-EPI)NonAf (60.0-200.0) BUN/Creatinine Ratio (12.00-20.00) Ratio Glucose 303 H (74-99) mg/dL POC Glucose (mg/dL) (75-99) mg/dL Hemoglobin A1c (4.0-6.0) % Plasma Lactic Acid Ata 3.4 H* (0.7-2.0) mmol/L Calcium (8.7-10.3) mg/dL Total Bilirubin (0.3-1.2) mg/dL Total Protein (6.2-8.2) g/dL Albumin (3.80-4.90) g/dL Albumin/Globulin Ratio (1.60-3.17) g/dL Urine Protein (Negative) Urine Glucose (UA) (Negative) Urine Blood (Negative) Ur Leukocyte Esterase (Negative) Urine RBC (0-5) /hpf Urine WBC (0-5) /hpf Urine Bacteria (None) /hpf Hyaline Casts (0-2) /lpf Urine Mucus (None) /hpf 04/23/20 04/23/20 04/23/20 Range/Units 20:06 22:49 22:58 RBC (4.30-5.90) m/uL Hgb (13.0-17.5) gm/dL Hct (39.0-53.0) % MCHC (32.0-37.0) g/dL RDW (11.5-14.5) % Immature Gran # (0.00-0.04) X 10*3/uL Lymphocytes # (0.90-5.00) X 10*3/uL Eosinophils # (0.04-0.35) X 10*3/uL Sodium (137-145) mmol/L Carbon Dioxide (22-30) mmol/L BUN (9-20) mg/dL Creatinine (0.66-1.25) mg/dL Est GFR (CKD-EPI)AfAm (60.0-200.0) Est GFR (CKD-EPI)NonAf (60.0-200.0) BUN/Creatinine Ratio (12.00-20.00) Ratio Glucose (74-99) mg/dL POC Glucose (mg/dL) 301 H (75-99) mg/dL Hemoglobin A1c (4.0-6.0) % Plasma Lactic Acid Ata 4.3 H* 4.1 H* (0.7-2.0) mmol/L Calcium (8.7-10.3) mg/dL Total Bilirubin (0.3-1.2) mg/dL Total Protein (6.2-8.2) g/dL Albumin (3.80-4.90) g/dL Albumin/Globulin Ratio (1.60-3.17) g/dL Urine Protein (Negative) Urine Glucose (UA) (Negative) Urine Blood (Negative) Ur Leukocyte Esterase (Negative) Urine RBC (0-5) /hpf Urine WBC (0-5) /hpf Urine Bacteria (None) /hpf Hyaline Casts (0-2) /lpf Urine Mucus (None) /hpf 04/24/20 04/24/20 04/24/20 Range/Units 01:00 01:42 04:18 RBC 3.20 L (4.30-5.90) m/uL Hgb 9.0 L (13.0-17.5) gm/dL Hct 29.0 L (39.0-53.0) % MCHC 31.0 L (32.0-37.0) g/dL RDW 15.1 H (11.5-14.5) % Immature Gran # 0.07 H (0.00-0.04) X 10*3/uL Lymphocytes # 0.89 L (0.90-5.00) X 10*3/uL Eosinophils # 0.01 L (0.04-0.35) X 10*3/uL Sodium (137-145) mmol/L Carbon Dioxide (22-30) mmol/L BUN (9-20) mg/dL Creatinine (0.66-1.25) mg/dL Est GFR (CKD-EPI)AfAm (60.0-200.0) Est GFR (CKD-EPI)NonAf (60.0-200.0) BUN/Creatinine Ratio (12.00-20.00) Ratio Glucose (74-99) mg/dL POC Glucose (mg/dL) (75-99) mg/dL Hemoglobin A1c (4.0-6.0) % Plasma Lactic Acid Ata 4.3 H* (0.7-2.0) mmol/L Calcium (8.7-10.3) mg/dL Total Bilirubin (0.3-1.2) mg/dL Total Protein (6.2-8.2) g/dL Albumin (3.80-4.90) g/dL Albumin/Globulin Ratio (1.60-3.17) g/dL Urine Protein 1+ H (Negative) Urine Glucose (UA) Trace H (Negative) Urine Blood Trace H (Negative) Ur Leukocyte Esterase Small H (Negative) Urine RBC 20 H (0-5) /hpf Urine WBC 10 H (0-5) /hpf Urine Bacteria Rare H (None) /hpf Hyaline Casts 61 H (0-2) /lpf Urine Mucus Rare H (None) /hpf 04/24/20 04/24/20 04/24/20 Range/Units 04:18 04:18 07:17 RBC (4.30-5.90) m/uL Hgb (13.0-17.5) gm/dL Hct (39.0-53.0) % MCHC (32.0-37.0) g/dL RDW (11.5-14.5) % Immature Gran # (0.00-0.04) X 10*3/uL Lymphocytes # (0.90-5.00) X 10*3/uL Eosinophils # (0.04-0.35) X 10*3/uL Sodium (137-145) mmol/L Carbon Dioxide 18.8 L (22-30) mmol/L BUN 58.0 H (9-20) mg/dL Creatinine 1.7 H (0.66-1.25) mg/dL Est GFR (CKD-EPI)AfAm 47.3 L (60.0-200.0) Est GFR (CKD-EPI)NonAf 40.8 L (60.0-200.0) BUN/Creatinine Ratio 34.12 H (12.00-20.00) Ratio Glucose (74-99) mg/dL POC Glucose (mg/dL) 156 H (75-99) mg/dL Hemoglobin A1c 10.3 H (4.0-6.0) % Plasma Lactic Acid Ata (0.7-2.0) mmol/L Calcium 7.8 L (8.7-10.3) mg/dL Total Bilirubin 0.2 L (0.3-1.2) mg/dL Total Protein 5.4 L (6.2-8.2) g/dL Albumin 3.30 L (3.80-4.90) g/dL Albumin/Globulin Ratio 1.57 L (1.60-3.17) g/dL Urine Protein (Negative) Urine Glucose (UA) (Negative) Urine Blood (Negative) Ur Leukocyte Esterase (Negative) Urine RBC (0-5) /hpf Urine WBC (0-5) /hpf Urine Bacteria (None) /hpf Hyaline Casts (0-2) /lpf Urine Mucus (None) /hpf 04/24/20 Range/Units 11:33 RBC (4.30-5.90) m/uL Hgb (13.0-17.5) gm/dL Hct (39.0-53.0) % MCHC (32.0-37.0) g/dL RDW (11.5-14.5) % Immature Gran # (0.00-0.04) X 10*3/uL Lymphocytes # (0.90-5.00) X 10*3/uL Eosinophils # (0.04-0.35) X 10*3/uL Sodium (137-145) mmol/L Carbon Dioxide (22-30) mmol/L BUN (9-20) mg/dL Creatinine (0.66-1.25) mg/dL Est GFR (CKD-EPI)AfAm (60.0-200.0) Est GFR (CKD-EPI)NonAf (60.0-200.0) BUN/Creatinine Ratio (12.00-20.00) Ratio Glucose (74-99) mg/dL POC Glucose (mg/dL) 107 H (75-99) mg/dL Hemoglobin A1c (4.0-6.0) % Plasma Lactic Acid Ata (0.7-2.0) mmol/L Calcium (8.7-10.3) mg/dL Total Bilirubin (0.3-1.2) mg/dL Total Protein (6.2-8.2) g/dL Albumin (3.80-4.90) g/dL Albumin/Globulin Ratio (1.60-3.17) g/dL Urine Protein (Negative) Urine Glucose (UA) (Negative) Urine Blood (Negative) Ur Leukocyte Esterase (Negative) Urine RBC (0-5) /hpf Urine WBC (0-5) /hpf Urine Bacteria (None) /hpf Hyaline Casts (0-2) /lpf Urine Mucus (None) /hpf Diabetes panel 04/23/20 04/24/20 04/24/20 Range/Units 16:40 04:18 04:18 Sodium 133 L 138 (137-145) mmol/L Potassium 4.7 4.3 (3.5-5.1) mmol/L Chloride 102 108 (98-107) mmol/L Carbon Dioxide 18 L 18.8 L (22-30) mmol/L BUN 52 H 58.0 H (9-20) mg/dL Creatinine 1.40 H 1.7 H (0.66-1.25) mg/dL Glucose 303 H 98 (74-99) mg/dL Hemoglobin A1c 10.3 H (4.0-6.0) % Calcium 9.5 7.8 L (8.4-10.2) mg/dL AST 20 19 (17-59) U/L ALT 21 17 (4-49) U/L Alkaline Phosphatase 111 65 (38-126) U/L Total Protein 7.3 5.4 L (6.3-8.2) g/dL Albumin 3.6 3.30 L (3.5-5.0) g/dL Calcium panel 04/23/20 04/24/20 Range/Units 16:40 04:18 Calcium 9.5 7.8 L (8.4-10.2) mg/dL Albumin 3.6 3.30 L (3.5-5.0) g/dL Pituitary panel 04/23/20 04/24/20 Range/Units 16:40 04:18 Sodium 133 L 138 (137-145) mmol/L Potassium 4.7 4.3 (3.5-5.1) mmol/L Chloride 102 108 (98-107) mmol/L Carbon Dioxide 18 L 18.8 L (22-30) mmol/L BUN 52 H 58.0 H (9-20) mg/dL Creatinine 1.40 H 1.7 H (0.66-1.25) mg/dL Glucose 303 H 98 (74-99) mg/dL Calcium 9.5 7.8 L (8.4-10.2) mg/dL Adrenal panel 04/23/20 04/24/20 Range/Units 16:40 04:18 Sodium 133 L 138 (137-145) mmol/L Potassium 4.7 4.3 (3.5-5.1) mmol/L Chloride 102 108 (98-107) mmol/L Carbon Dioxide 18 L 18.8 L (22-30) mmol/L BUN 52 H 58.0 H (9-20) mg/dL Creatinine 1.40 H 1.7 H (0.66-1.25) mg/dL Glucose 303 H 98 (74-99) mg/dL Calcium 9.5 7.8 L (8.4-10.2) mg/dL Total Bilirubin 0.5 0.2 L (0.2-1.3) mg/dL AST 20 19 (17-59) U/L ALT 21 17 (4-49) U/L Alkaline Phosphatase 111 65 (38-126) U/L Total Protein 7.3 5.4 L (6.3-8.2) g/dL Albumin 3.6 3.30 L (3.5-5.0) g/dL
[2020-04-24 14:58] LABS: HCT 32.5 % (39.0-53.0); HGB 10.8 gm/dL (13.0-17.5); MCH 29.7 pg (25.0-35.0); MCHC 33.2 g/dL (31.0-37.0); MCV 89.5 fL (80.0-100.0); Mean Platelet Volume 7.7; Platelet Count 273 k/uL (150-450); RBC 3.63 m/uL (4.30-5.90); RDW 15.3 % (11.5-15.5); WBC 7.1 k/uL (3.8-10.6)
[2020-04-24 17:00] LABS: Glucose,Whole Blood 174 mg/dL (75-99)
[2020-04-24 22:26] LABS: Glucose,Whole Blood 206 mg/dL (75-99)
[2020-04-24] MEDS: traZODone HCL 50 MG TAB PO SCH (22:44)
[2020-04-25] MEDS ORDERED: VANCOMYCIN 2,250 MG in SODIUM CHLORIDE 0.9% 500 ML 500 ML IVPB SCH ×2
[2020-04-25] MEDS ORDERED: AMPICILLIN-SULBACTAM 3 GM in SODIUM CHLORIDE 0.9% 50 ML IVPB SCH ×2
[2020-04-25] MEDS: AMPICILLIN-SULBACTAM 3 GM in SODIUM CHLORIDE 0.9% 100 ML IVPB SCH ×5 (01:04→23:24)
[2020-04-25] MEDS: HEPARIN SODIUM,PORCINE 5,000 UNIT/ML 1 ML VIAL SQ SCH ×4 (01:04→23:24)
--- NOTE | 2020-04-25 01:43 | CONS ---
CONSULTATION DATE OF SERVICE: 04/24/2020 REASON FOR CONSULTATION: Left lower extremity wound and cellulitis. HISTORY OF PRESENT ILLNESS: The patient is a 69-year-old male with a past medical history significant for diabetic foot infection on the right side and bruising his right leg. This patient status post right below-knee amputation. Patient has chronic wound to the left lower extremity for which the patient treated at [facility] [place]. The patient was evaluated in the Wound Care center yesterday. He was noted to have worsening swelling and redness of the left leg with concern for cellulitis. The patient has been advised admission to the hospital. The patient mentioned he was having increasing swelling and redness and some greenish drainage to the leg that was concerning to his physician. When the patient was admitted to the hospital, the patient did have pain to the leg, especially at the time of dressing changes. Described the pain to be more of a sharp 5 to 6/10, no radiation. Did have some blood-streaked drainage. The patient did have some chills but denies high-grade fever. On presentation to the hospital, the patient was afebrile. No fever has been recorded since then. The patient did have a normal white count. Creatinine was mildly elevated at 1.40. Repeat is 1.7. Blood culture has been obtained which is currently pending. He was started on Unasyn and vancomycin. Infectious Disease was consulted for further management of antibiotic therapy. REVIEW OF SYSTEMS: Positive points have been mentioned in HPI. Rest of systems are negative. PAST MEDICAL HISTORY: Significant for diabetes mellitus, hypertension, hyperlipidemia, renal insufficiency, gastroesophageal reflux disease, chronic venous stasis ulcer, diabetic foot infection. PAST SURGICAL HISTORY: Bilateral amputation, right [id number] amputation, multiple debridements of the wound. SOCIAL HISTORY: Patient is currently smoking. Occasionally drinks. No drug use. FAMILY HISTORY: Father from brain cancer. Mother history of glaucoma. ALLERGIES: No known drug allergies. MEDICATIONS: The patient is currently on Tylenol and Unasyn 1.5 g q.8 hours. He is on , Lexapro, heparin, NovoLog, morphine sulfate, vancomycin, pharmacy to dose. PHYSICAL EXAMINATION: Blood pressure 115/50 with a pulse of 84, temperature 98.3. He is 97% on room air. General description: The patient is an elderly male lying in bed in no distress. No tachypnea or accessory muscles of respiration use. HEENT: Examination shows slight pallor. No scleral icterus. Oral mucous membranes dry. No pharyngeal erythema or thrush. NECK: Trachea central. No thyromegaly. LUNGS: Unlabored breathing, decreased breath sounds at the base. No wheeze or crackles. HEART: S1-S2 regular rate and rhythm. ABDOMEN: Soft. No tenderness. No guarding. No rigidity. EXTREMITIES: Left leg did have multiple minimal swelling and minimal blood- stained drainage. NEUROLOGICAL: The patient is awake, alert, oriented times three. Mood and affect normal. LABS: Hemoglobin is 10.8, white count 7.1, BUN of 15, creatinine 1.7, lactic acid 4.1. Liver enzymes are normal. Urine is positive. DIAGNOSTIC IMPRESSION/PLAN: 1. Patient admitted to the hospital with left lower extremity wound with secondary cellulitis in this patient who did have a history of MRSA, right diabetic foot infection with right acrjo-zti-rglo amputation. The patient did have multiple superficial ulceration of the leg and a component of secondary cellulitis more likely from a gram-positive skin monique and will need to cover for the MRSA to be likely pathogen. 2. Patient with renal insufficiency and high risk of nephrotoxicity. PLAN: 1. The patient is currently covered with vancomycin, to continue while watching his kidney function and vanco trough closely. 2. . 3. Local wound care with dry Aquacel Silver dressing and Colby wrap to change daily. 4. We will follow on clinical condition and culture to further adjust medication if needed. Thank you for this consultation. Will follow this patient along with you. MMODL / IJN: [id number] /
[2020-04-25 06:46] LABS: Glucose,Whole Blood 104 mg/dL (75-99)
[2020-04-25] MEDS: INSULIN ASPART (NovoLOG) 100 UNIT/ML VIAL SQ SCH ×4 (07:24→22:27)
[2020-04-25] MEDS: NYSTATIN 100,000 UNIT/GM POWD 15 GM TOPICAL SCH ×3 (08:18→22:29)
[2020-04-25] MEDS: ESCITALOPRAM 5 MG TAB PO SCH (08:18)
[2020-04-25] MEDS: diphenhydrAMINE 25 MG CAP PO SCH (08:18)
[2020-04-25] MEDS: INSULN ASP PRT/INSULIN ASPART 100 UNIT/ML 10 ML VIAL SQ SCH ×2 (08:20→22:28)
[2020-04-25 09:02] LABS: HCT 32.2 % (39.6-50.0); HGB 10.3 g/dL (13.0-17.0); MCH 28.9 pg (27.0-32.0); MCV 90.4 fL (80.0-97.0); Mean Platelet Volume 10.5 fL (9.5-12.2); Platelet Count 240 X 10*3/uL (140-440); RBC 3.56 X 10*6/uL (4.40-5.60); RDW 14.9 % (11.5-14.5); WBC 5.81 X 10*3/uL (4.50-10.00)
[2020-04-25 09:42] LABS: Glucose,Whole Blood 176 mg/dL (75-99)
[2020-04-25 09:45] LABS: African American GFR (CKD) 102.1 (60.0-200.0); Anion Gap 11.1 mmol/L (4.00-12.00); Calcium 8.2 mg/dL (8.7-10.3); Carbon Dioxide 20.9 mmol/L (21.6-31.8); Non-African American GFR(CKD) 88.1 (60.0-200.0); Potassium 4.1 mmol/L (3.5-5.5)
--- NOTE | 2020-04-25 11:27 | CDI ---
Documentation Clarification Form Date: 04/25/2020 10:20:27 AM From: Abbey Willis RN CCDS Admit Date: 04/24/2020 05:08:00 AM Patient Name: Reid Frost Visit Number: [id number] Discharge Date: ATTENTION: The Clinical Documentation Specialists (CDI) and [facility] Coding Staff appreciate your assistance in clarifying documentation. Please respond to the clarification below the line at the bottom and electronically sign. The CDI & [facility] Coding staff will review the response and follow-up if needed. Please note: Queries are made part of the Legal Health Record. If you have any questions, please contact the author of this message via ITS. Dr. Caridad Lobo Patient was found to have lactic acidosis initial lactate of 4.1 resolving after sepsis bolus now down to 1.4. Internal Medicine Progress Note 04/24 History/Risk Factors: 69-year old male with a medical history of: IDDM type II; AKA; Chronic venous stasis wounds; Renal disease; Neuropathy hands and left foot. Documented in H&P 04/23 The patient was sent to the ED from the wound clinic for failed outpatient treatment of left leg cellulitis and chronic wound. Documented in ED Note 04/23 Clinical Indicators: 04/24 ID Consult: The patient did have some chills but denies high grade fever. On presentation to the hospital, the patient was afebrile. 04/24 Internal Medicine Progress Note: Stage II sacral pressure ulcer. 04/23 Labs: Wbc 8.4; Lactic acid 3.4; 4.1; 4.3; 1.4. 04/23 Blood cultures: No growth after 24 hours. 04/23 Vital signs on admission: B/P 136/92; HR 96; Temp 98.4 F Oral; RR 20; SpO2 99% room air. Treatment: 04/24 ID Consult: Left lower extremity wound with secondary cellulitis, right diabetic foot infection with right above the knee amputation. Multiple superficial ulceration of the leg and a component of secondary cellulitis. Antibiotics: 04/23 Ampicillin 3gm Ivpb x 1; 04/24 Ampicillin 1.5gm Ivpb Q6HR d/c 04/24; 04/25 Ampicillin 3gm Ivpb Q6HR; 04/23 Vancomycin 2,250mg Ivpb x 1; 04/25 Vancomycin 2,250mg Ivpb Q24H. IV Bolus: 04/23 0.9NS 3L boluses. In your professional opinion, please clarify if these findings signify one of the following conditions, whether the condition is POA, and cause, if known: Sepsis poa Sepsis ruled out Other, please specify Unable to determine Identify the (suspected) organism Link or clarify if there is associated (due to/with): Organ failure Shock SIRS Criteria (2 or more of the following may indicate SIRS): -Temperature < 96.8F (36C) or > 101.0F (38.3C) -Heart Rate > 90 bpm -Respiratory Rate > 20 breaths/min or PaCO2 < 32 mmHg -White Blood Cell Count > 12,000 or < 4,000 cells/mm3 or > 10% bands -Lactate >2.0 mmol/L (>4.0 is equivalent to septic shock) (Last Revision: June 2017) MARYD
[2020-04-25 11:36] LABS: Glucose,Whole Blood 122 mg/dL (75-99)
[2020-04-25 13:49] VITALS: BMI 47.5
[2020-04-25] MEDS: MORPHINE SULFATE 4 MG/ML SYRINGE IVP PRN ×2 (14:59→19:39)
[2020-04-25 16:51] LABS: Glucose,Whole Blood 122 mg/dL (75-99)
--- NOTE | 2020-04-25 17:42 | P.PN ---
Subjective Progress Note Date: 04/25/20 Patient is doing well today. No acute events overnight. Objective - Vital Signs Vital signs: Vital Signs Temp 98 F 04/25/20 14:00 Pulse 81 04/25/20 14:00 Resp 17 04/25/20 14:00 BP 168/59 04/25/20 14:00 Pulse Ox 98 04/25/20 14:00 Intake & Output 04/24/20 04/25/20 04/25/20 18:59 06:59 18:59 Intake Total 200 Output Total 1000 500 700 Balance -800 -500 -700 Weight 158.757 kg Intake: Oral 200 Output: Urine 1000 500 700 Other: Voiding Method Urinal Urinal Urinal # Voids 2 - Exam General: The patient is awake and alert, in no distress Eye: there is normal conjunctiva bilaterally. Neck: The neck is supple, there is no JVD. Cardiovascular: Normal S1-S2, no S3-S4, no murmurs. Respiratory: Lungs clear to auscultation bilaterally Gastrointestinal: Abdomen is soft, nontender Musculoskeletal: There is AKA on the right. Left lower extremity wrapped with clean dressing and Colby wrap Neurological:. Speech is normal. Skin: Skin is warm and dry - Labs CBC & Chem 7: 04/25/20 05:45 04/25/20 05:45 Labs: Abnormal Lab Results - Last 24 Hours (Table) 04/24/20 04/25/20 04/25/20 Range/Units 22:24 05:45 05:45 RBC 3.56 L (4.40-5.60) X 10*6/uL Hgb 10.3 L (13.0-17.0) g/dL Hct 32.2 L (39.6-50.0) % RDW 14.9 H (11.5-14.5) % Carbon Dioxide 20.9 L (21.6-31.8) mmol/L BUN/Creatinine Ratio 30.00 H (12.00-20.00) Ratio POC Glucose (mg/dL) 206 H (75-99) mg/dL Calcium 8.2 L (8.7-10.3) mg/dL 04/25/20 04/25/20 04/25/20 Range/Units 06:44 09:41 11:34 RBC (4.40-5.60) X 10*6/uL Hgb (13.0-17.0) g/dL Hct (39.6-50.0) % RDW (11.5-14.5) % Carbon Dioxide (21.6-31.8) mmol/L BUN/Creatinine Ratio (12.00-20.00) Ratio POC Glucose (mg/dL) 104 H 176 H 122 H (75-99) mg/dL Calcium (8.7-10.3) mg/dL 04/25/20 Range/Units 16:50 RBC (4.40-5.60) X 10*6/uL Hgb (13.0-17.0) g/dL Hct (39.6-50.0) % RDW (11.5-14.5) % Carbon Dioxide (21.6-31.8) mmol/L BUN/Creatinine Ratio (12.00-20.00) Ratio POC Glucose (mg/dL) 122 H (75-99) mg/dL Calcium (8.7-10.3) mg/dL Microbiology - Last 24 Hours (Table) 04/24/20 16:23 Gram Stain - Preliminary Leg - Left Wound Culture - Preliminary 04/24/20 16:23 Anaerobic Culture - Preliminary Leg - Left 04/23/20 16:40 Blood Culture - Preliminary Blood No Growth after 24 hours Assessment and Plan Assessment: Patient is a 69-year-old male with a past medical history of peripheral vascular disease, hypertension, insulin-dependent diabetes mellitus type 2, depression, history of MRSA and right AKA (2018). Patient presented to [facility] for evaluation of his wounds to his left lower extremity. Patient has venous stasis ulcerations to the left lower extremity with surrounding cellulitis. He has been under outpatient treatment with disease education specialist with Dr. Otto. Patient was sent to the hospital by wound care clinic for initiation of IV antiobiotics after failing outpatient treatment. Patient was found to have lactic acidosis initial lactate of 4.1 resolving after sepsis bolus now down to 1.4. Venous stasis ulcerations with surrounding cellulitis -Continue IV antibiotics: vancomycin and Unasyn -Consult vascular surgery, Dr. Otto -Consult wound care -Consult infectious disease, Dr. Del Rosario. -Blood cultures and wound cultures pending. -Symptomatic care and pain management. -PT/OT consult and case management notified of likely homecare assistance needed upon discharge. Acute kidney injury, worsening -Acute kidney injury with initial BUN of 52, creatinine 1.40, and GFR 52. Morning labs revealed slightly worsening renal function with BUN of 58, creatinine 1.7 and GFR of 40.8. -Patient was given sepsis bolus along with continued gentle hydration. -Lisinopril held. -Pharmacy to continue dosing vancomycin based on renal function. -Caution with nephrotoxic agents. Lactic acidosis, resolved -Initial lactate 4.1, sepsis bolus given with repeat lactate of 1.4. Normocytic Normochromic Anemia -Initial hemoglobin of 12.0 down to 9.0 this morning. Patient did receive >4L of fluid with sepsis bolus yesterday and is showing no signs of active bleeding. -3 gram drop in hemoglobin likely secondary to dilution, however we will repeat CBC this afternoon for verification and continue to monitor closely. Insulin-dependent diabetes mellitus type 2 -Resume home insulin aspart -Glycemic protocol with NovoLog sliding scale -Heart healthy carb consistent diet. Sacral/coccygeal stage II pressure ulcer with surrounding excoriation -Wound care consult placed -Patient to be encouraged to turn every 2 hours, offloading pressure to coccyx/sacral region. -PT/OT consult placed. Hyponatremia, resolved Hypertension, stable -Hypertension stable at this time. We are holding lisinopril secondary to patient's acute kidney injury. Depression -Patient reports stable since having his medications adjusted. We will continue daily medication regimen of Lexapro and trazodone. CODE STATUS: Full code DVT prophylaxis: Heparin
[2020-04-25] MEDS: VANCOMYCIN 2,250 MG in SODIUM CHLORIDE 0.9% 500 ML 500 ML IVPB SCH (18:01)
--- NOTE | 2020-04-25 21:59 | PN ---
PROGRESS NOTE Reid came to the wound clinic for followup. Patient had developed marked cellulitis and drainage of fluid. The patient was admitted with IV antibiotic and local wound care. The patient has less cellulitis and less drainage. Plan is to continue with Aquacel Silver, IV antibiotic and 2-pillow elevation. MMODL / MATAN: [id number] /
[2020-04-25 22:20] LABS: Glucose,Whole Blood 153 mg/dL (75-99)
[2020-04-25] MEDS: traZODone HCL 50 MG TAB PO SCH (22:27)
--- NOTE | 2020-04-25 22:54 | PN ---
PROGRESS NOTE DATE OF SERVICE: 04/25/2020 REASON FOR FOLLOWUP: Left lower extremity wound and cellulitis. INTERVAL HISTORY: Patient is currently afebrile, has been breathing comfortably. Denies any chest pain. No shortness of breath or cough. No abdominal pain or any worsening pain to the lower extremity. PHYSICAL EXAMINATION: Blood pressure 126/69, pulse of 90, temperature 98.9. He is 97% on room air. General description: The patient is an elderly male lying in bed in no distress. Respiratory system: Unlabored breathing. Clear to auscultation anteriorly. Heart is S1, S2. Regular rate and rhythm. Abdomen soft, no tenderness. Left leg is currently dressed up. No obvious drainage on the dressing. LABS: Hemoglobin is 10.1, hematocrit 5.8, BUN of 27, creatinine 0.9. DIAGNOSTIC IMPRESSION AND PLAN: Patient with left lower extremity wound with secondary cellulitis. Covered with vancomycin. cultures to continue with Aquacel Silver dressing and continue supportive care. MMODL / IJN: [id number] /
[2020-04-26 03:39] LABS: Glucose,Whole Blood 71 mg/dL (75-99)
[2020-04-26] MEDS: AMPICILLIN-SULBACTAM 3 GM in SODIUM CHLORIDE 0.9% 100 ML IVPB SCH ×3 (05:29→20:30)
[2020-04-26 06:47] LABS: Glucose,Whole Blood 159 mg/dL (75-99)
[2020-04-26] MEDS: INSULIN ASPART (NovoLOG) 100 UNIT/ML VIAL SQ SCH ×4 (08:07→20:54)
[2020-04-26] MEDS: HEPARIN SODIUM,PORCINE 5,000 UNIT/ML 1 ML VIAL SQ SCH ×2 (08:08→16:14)
[2020-04-26] MEDS: ESCITALOPRAM 5 MG TAB PO SCH (08:08)
[2020-04-26] MEDS: diphenhydrAMINE 25 MG CAP PO SCH (08:08)
[2020-04-26] MEDS: NYSTATIN 100,000 UNIT/GM POWD 15 GM TOPICAL SCH ×3 (08:10→20:56)
[2020-04-26] MEDS: INSULN ASP PRT/INSULIN ASPART 100 UNIT/ML 10 ML VIAL SQ SCH ×2 (08:15→20:54)
[2020-04-26] MEDS: lisinopriL 10 MG TAB PO SCH (08:35)
[2020-04-26 08:48] LABS: HCT 33.1 % (39.6-50.0); HGB 10.3 g/dL (13.0-17.0); MCH 28.6 pg (27.0-32.0); MCHC 31.1 g/dL (32.0-37.0); MCV 91.9 fL (80.0-97.0); Mean Platelet Volume 10.3 fL (9.5-12.2); Platelet Count 265 X 10*3/uL (140-440); RDW 14.8 % (11.5-14.5); WBC 5.65 X 10*3/uL (4.50-10.00)
--- NOTE | 2020-04-26 09:12 | CDI ---
Documentation Clarification Form Date: 04/25/2020 10:20:27 AM From: Abbey Willis RN CCDS Admit Date: 04/24/2020 05:08:00 AM Patient Name: Reid Frost Visit Number: [id number] Discharge Date: ATTENTION: The Clinical Documentation Specialists (CDI) and [facility] Coding Staff appreciate your assistance in clarifying documentation. Please respond to the clarification below the line at the bottom and electronically sign. The CDI & [facility] Coding staff will review the response and follow-up if needed. Please note: Queries are made part of the Legal Health Record. If you have any questions, please contact the author of this message via ITS. Dr. Caridad Lobo Patient was found to have lactic acidosis initial lactate of 4.1 resolving after sepsis bolus now down to 1.4. Internal Medicine Progress Note 04/24 History/Risk Factors: 69-year old male with a medical history of: IDDM type II; AKA; Chronic venous stasis wounds; Renal disease; Neuropathy hands and left foot. Documented in H&P 04/23 The patient was sent to the ED from the wound clinic for failed outpatient treatment of left leg cellulitis and chronic wound. Documented in ED Note 04/23 Clinical Indicators: 04/24 ID Consult: The patient did have some chills but denies high grade fever. On presentation to the hospital, the patient was afebrile. 04/24 Internal Medicine Progress Note: Stage II sacral pressure ulcer. 04/23 Labs: Wbc 8.4; Lactic acid 3.4; 4.1; 4.3; 1.4. 04/23 Blood cultures: No growth after 24 hours. 04/23 Vital signs on admission: B/P 136/92; HR 96; Temp 98.4 F Oral; RR 20; SpO2 99% room air. Treatment: 04/24 ID Consult: Left lower extremity wound with secondary cellulitis, right diabetic foot infection with right above the knee amputation. Multiple superficial ulceration of the leg and a component of secondary cellulitis. Antibiotics: 04/23 Ampicillin 3gm Ivpb x 1; 04/24 Ampicillin 1.5gm Ivpb Q6HR d/c 04/24; 04/25 Ampicillin 3gm Ivpb Q6HR; 04/23 Vancomycin 2,250mg Ivpb x 1; 04/25 Vancomycin 2,250mg Ivpb Q24H. IV Bolus: 04/23 0.9NS 3L boluses. In your professional opinion, please clarify if these findings signify one of the following conditions, whether the condition is POA, and cause, if known: Sepsis poa Sepsis ruled out Other, please specify Unable to determine Identify the (suspected) organism Link or clarify if there is associated (due to/with): Organ failure Shock SIRS Criteria (2 or more of the following may indicate SIRS): -Temperature < 96.8F (36C) or > 101.0F (38.3C) -Heart Rate > 90 bpm -Respiratory Rate > 20 breaths/min or PaCO2 < 32 mmHg -White Blood Cell Count > 12,000 or < 4,000 cells/mm3 or > 10% bands -Lactate >2.0 mmol/L (>4.0 is equivalent to septic shock) (Last Revision: June 2017) NO evidence of sepsis MTDD
[2020-04-26 09:45] LABS: African American GFR (CKD) 107.1 (60.0-200.0); Anion Gap 9.8 mmol/L (4.00-12.00); Calcium 8.2 mg/dL (8.7-10.3); Carbon Dioxide 24.2 mmol/L (21.6-31.8); Non-African American GFR(CKD) 92.4 (60.0-200.0); Potassium 4.2 mmol/L (3.5-5.5)
[2020-04-26 11:03] LABS: Glucose,Whole Blood 195 mg/dL (75-99)
[2020-04-26] MEDS: VANCOMYCIN 2,250 MG in SODIUM CHLORIDE 0.9% 500 ML 500 ML IVPB SCH (11:21)
[2020-04-26] MEDS ORDERED: hydrALAZINE HCL 20 MG/ML 1 ML VIAL IVP STA (13:07)
--- NOTE | 2020-04-26 13:11 | P.PN ---
Subjective Progress Note Date: 04/26/20 Patient is doing well today. No acute events overnight. Objective - Vital Signs Vital signs: Vital Signs Temp 98.0 F 04/26/20 07:44 Pulse 72 04/26/20 07:44 Resp 16 04/26/20 07:44 BP 189/65 04/26/20 07:44 Pulse Ox 97 04/26/20 07:44 Intake & Output 04/25/20 04/26/20 04/26/20 18:59 06:59 18:59 Intake Total 220 Output Total 700 375 200 Balance -700 -375 20 Weight 158.757 kg Intake: Oral 220 Output: Urine 700 375 200 Other: Voiding Method Urinal Urinal Urinal - Exam General: The patient is awake and alert, in no distress Eye: there is normal conjunctiva bilaterally. Neck: The neck is supple, there is no JVD. Cardiovascular: Normal S1-S2, no S3-S4, no murmurs. Respiratory: Lungs clear to auscultation bilaterally Gastrointestinal: Abdomen is soft, nontender Musculoskeletal: There is AKA on the right. Left lower extremity wrapped with clean dressing and Colby wrap Neurological:. Speech is normal. Skin: Skin is warm and dry - Labs CBC & Chem 7: 04/26/20 05:48 04/26/20 05:48 Labs: Abnormal Lab Results - Last 24 Hours (Table) 04/25/20 04/25/20 04/26/20 Range/Units 16:50 22:08 03:37 RBC (4.40-5.60) X 10*6/uL Hgb (13.0-17.0) g/dL Hct (39.6-50.0) % MCHC (32.0-37.0) g/dL RDW (11.5-14.5) % POC Glucose (mg/dL) 122 H 153 H 71 L (75-99) mg/dL Calcium (8.7-10.3) mg/dL 04/26/20 04/26/20 04/26/20 Range/Units 05:48 05:48 06:46 RBC 3.60 L (4.40-5.60) X 10*6/uL Hgb 10.3 L (13.0-17.0) g/dL Hct 33.1 L (39.6-50.0) % MCHC 31.1 L (32.0-37.0) g/dL RDW 14.8 H (11.5-14.5) % POC Glucose (mg/dL) 159 H (75-99) mg/dL Calcium 8.2 L (8.7-10.3) mg/dL 04/26/20 Range/Units 11:02 RBC (4.40-5.60) X 10*6/uL Hgb (13.0-17.0) g/dL Hct (39.6-50.0) % MCHC (32.0-37.0) g/dL RDW (11.5-14.5) % POC Glucose (mg/dL) 195 H (75-99) mg/dL Calcium (8.7-10.3) mg/dL Microbiology - Last 24 Hours (Table) 04/23/20 16:40 Blood Culture - Preliminary Blood No Growth after 48 hours 04/24/20 16:23 Gram Stain - Preliminary Leg - Left Wound Culture - Preliminary Assessment and Plan Assessment: Patient is a 69-year-old male with a past medical history of peripheral vascular disease, hypertension, insulin-dependent diabetes mellitus type 2, depression, history of MRSA and right AKA (2018). Patient presented to [facility] for evaluation of his wounds to his left lower extremity. Patient has venous stasis ulcerations to the left lower extremity with surrounding cellulitis. He has been under outpatient treatment with automation controls specialist with Dr. Otto. Patient was sent to the hospital by wound care clinic for initiation of IV antiobiotics after failing outpatient treatment. Patient was found to have lactic acidosis initial lactate of 4.1 resolving after sepsis bolus now down to 1.4. Venous stasis ulcerations with surrounding cellulitis -Continue IV antibiotics: vancomycin and Unasyn -Patient was seen and evaluated by vascular surgery, infectious disease, and wound care. Appreciate recommendation -Awaiting wound cultures to finalize Acute kidney injury -Resolved with IV fluid hydration Lactic acidosis, resolved Normocytic Normochromic Anemia -Stable follow-up outpatient Essential hypertension -Blood pressure not well controlled, lisinopril is been on hold since admission secondary to a KI. Resume today. One-time dose of IV hydralazine today. Continue to monitor blood pressure closely. Insulin-dependent diabetes mellitus type 2 -Resume home insulin dose plus sliding scale -Heart healthy carb consistent diet. Sacral/coccygeal stage II pressure ulcer with surrounding excoriation -Wound care consulted, appreciate recommendation -Patient to be encouraged to turn every 2 hours, offloading pressure to coccyx/sacral region. Hyponatremia, resolved Depression CODE STATUS: Full code DVT prophylaxis: Heparin
[2020-04-26] MEDS: MORPHINE SULFATE 4 MG/ML SYRINGE IVP PRN (16:12)
[2020-04-26 17:18] LABS: Glucose,Whole Blood 154 mg/dL (75-99)
[2020-04-26 20:30] LABS: Glucose,Whole Blood 221 mg/dL (75-99)
[2020-04-26] MEDS: ACETAMINOPHEN TAB 325 MG TAB PO PRN (20:30)
[2020-04-26] MEDS: traZODone HCL 50 MG TAB PO SCH (20:54)
--- NOTE | 2020-04-26 23:27 | PN ---
PROGRESS NOTE DATE OF SERVICE: 04/26/2020 REASON FOR FOLLOWUP: Left lower extremity venostasis ulcer and cellulitis. INTERVAL HISTORY: The patient is currently afebrile. The patient is breathing comfortably. Overall pain and discomfort to the left leg has decreased. No chest pain, shortness of breath or cough. No abdominal pain or diarrhea. PHYSICAL EXAMINATION: Blood pressure 147/65 with a pulse of 82, temperature 99.4. He is 97% on room air. General description is an elderly male up in the chair in no distress. RESPIRATORY SYSTEM: Unlabored breathing. Clear to auscultation anteriorly. HEART: S1, S2. Regular rate and rhythm. ABDOMEN: Soft. No tenderness. Left leg is currently dressed up. No obvious drainage on the dressing. LABS: Hemoglobin is 10.3, white count of 5.65, creatinine 0.8. Local culture has been negative. DIAGNOSTIC IMPRESSION AND PLAN: Patient with a left lower extremity wound with secondary cellulitis. Culture has been negative for any resistant pathogen. Covered with Unasyn and vancomycin. To finish therapy with oral Augmentin on discharge and continue with supportive care. MMODL / IJN: [id number] /
[2020-04-27] MEDS: HEPARIN SODIUM,PORCINE 5,000 UNIT/ML 1 ML VIAL SQ SCH ×2 (00:51→07:21)
[2020-04-27] MEDS: VANCOMYCIN 2,250 MG in SODIUM CHLORIDE 0.9% 500 ML 500 ML IVPB SCH (00:52)
[2020-04-27] MEDS: AMPICILLIN-SULBACTAM 3 GM in SODIUM CHLORIDE 0.9% 100 ML IVPB SCH ×2 (04:15→07:20)
[2020-04-27 07:11] LABS: Glucose,Whole Blood 141 mg/dL (75-99)
[2020-04-27] MEDS: diphenhydrAMINE 25 MG CAP PO SCH (07:20)
[2020-04-27] MEDS: ACETAMINOPHEN TAB 325 MG TAB PO PRN (07:20)
[2020-04-27] MEDS: ESCITALOPRAM 5 MG TAB PO SCH (07:21)
[2020-04-27] MEDS: lisinopriL 10 MG TAB PO SCH (07:21)
[2020-04-27] MEDS: NYSTATIN 100,000 UNIT/GM POWD 15 GM TOPICAL SCH (07:22)
[2020-04-27 08:31] VITALS: PULSE 74
[2020-04-27] MEDS: INSULIN ASPART (NovoLOG) 100 UNIT/ML VIAL SQ SCH ×2 (08:35→12:32)
[2020-04-27] MEDS: INSULN ASP PRT/INSULIN ASPART 100 UNIT/ML 10 ML VIAL SQ SCH (08:49)
--- NOTE | 2020-04-27 10:33 | CDI ---
Documentation Clarification Form Date: 04/27/2020 10:10:31 AM From: Rosa Barrios RN, CCDS Admit Date: 04/24/2020 05:08:00 AM Patient Name: Reid Frost Visit Number: [id number] ATTENTION: The Clinical Documentation Specialists (CDI) and [facility] Coding Staff appreciate your assistance in clarifying documentation. Please respond to the clarification below the line at the bottom and electronically sign. The CDI & [facility] Coding staff will review the response and follow-up if needed. Please note: Queries are made part of the Legal Health Record. If you have any questions, please contact the author of this message via ITS. Dr. Caridad Lobo Diabetes is documented in the H&P Consults, and progress notes in a patient with venous stasis ulcerations with surrounding cellulitis. History/risk factors: DM2, HTN, PVD, Right AKA s/p gangrene, AMY, chronic anemia, lactic acidosis, chronic venous stasis wounds, neuropathy hands and left foot Clinical Indicators: 04/26 Attending Progress Note: "Venous stasis ulcerations with surrounding cellulitis. Insulin-dependent diabetes mellitus type 2." 04/24 ID Consult: "Significant for diabetes mellitus, hypertension, hyperlipidemia, renal insufficiency, gastroesophageal reflux disease, chronic venous stasis ulcer, diabetic foot infection. Patient admitted to the hospital with left lower extremity wound with secondary cellulitis in this patient who did have a history of MRSA, right diabetic foot infection with right [id number]-[id number] amputation." 04/23 H&P: "Diabetes mellitus with hyperglycemia." Location of ulcer: left lower extremity venous stasis ulcerations with surrounding cellulitis Treatment: 04/24 Vascular Wound care Consult: "Plan is left leg elevation, Aquacell silver to the venous ulcer at the meatus aspect of the ankle IV antibiotic follow with you and we'll change her dressing every 48 hours." IV Unasyn 3 gm IVPB Q 6 hrs. IV Vancomycin PTD In your professional opinion, can you please further clarify the etiology of the skin ulcer and cellulitis, if known? Diabetic Peripheral Vascular Disease Unable to determine Other condition, please specify AND Diabetes Type 1 Diabetes Type 2 Other, please specify AND ferry terminal supervisor Insulin Use Current Insulin Use No Insulin Use Also identify additional diabetic complications Diabetic peripheral neuropathy Other- please specify (Last Revision: December 2016) MTDD
--- NOTE | 2020-04-27 10:34 | P.DS ---
Providers Date of admission: 04/24/20 05:08 Expected date of discharge: 04/27/20 Attending physician: Carmela Nails MD Consults: 04/23/20 18:53 Consult Physician Routine Consulting Provider: Asad Haddad Consult Reason/Comments: Left lower extremity cellulitis, failed outpatient treatment Do you want consulting provider notified?: Yes 04/24/20 12:40 Consult Physician Routine Consulting Provider: Juan Del Rosario Consult Reason/Comments: venous stasis ulcerations with surrounding cellulitis, failed outpt tx. Do you want consulting provider notified?: Yes Primary care physician: Rula Leggett MD Hospital Course: Patient is a 69-year-old male with a past medical history of peripheral vascular disease, hypertension, insulin-dependent diabetes mellitus type 2, depression, history of MRSA and right AKA (2018). Patient presented to [facility] for evaluation of his wounds to his left lower extremity. Patient has venous stasis ulcerations to the left lower extremity with surrounding cellulitis. He has been under outpatient treatment with display specialist with Dr. Haddad. Patient was sent to the hospital by wound care clinic for initiation of IV antiobiotics after failing outpatient treatment. Patient was found to have lactic acidosis initial lactate of 4.1 resolving after sepsis bolu s now down to 1.4. Venous stasis ulcerations with surrounding cellulitis -Started on IV antibiotics: vancomycin and Unasyn -Patient was seen and evaluated by vascular surgery, infectious disease, and wound care. Appreciate recommendation -Wound culture showed no significant growth. Infectious disease recommended Augmentin twice daily for 10 days. Follow-up with the wound care clinic as directed. Acute kidney injury -Resolved with IV fluid hydration Hypokalemia and hypomagnesemia -Hydrochlorothiazide discontinued Lactic acidosis, resolved Normocytic Normochromic Anemia -Stable follow-up outpatient Essential hypertension -Blood pressure within acceptable range. Lisinopril dose increased to 40 mg daily follow-up closely with PCP Insulin-dependent diabetes mellitus type 2 -Not well controlled. A1c 10.3. -Resume home insulin dose and metformin. Encouraged compliance -Heart healthy carb consistent diet. Sacral/coccygeal stage II pressure ulcer with surrounding excoriation -Wound care consulted, appreciate recommendation -Patient to be encouraged to turn every 2 hours, offloading pressure to coccyx/sacral region. Hyponatremia, resolved Depression Patient will be discharged home with home healthcare services. Patient Condition at Discharge: Poor Plan - Discharge Summary New Discharge Prescriptions: New Amoxic-Pot Clav 875-125Mg [Augmentin 875-125] 1 tab PO Q12HR 10 Days #20 tab lisinopriL 40 mg PO DAILY #30 tab Nystatin 100,000 Unit/gm Powd [Mycostatin Powder] 1 applic TOPICAL TID #30 applic Continue traZODone HCL 50 mg PO HS Escitalopram Oxalate [Lexapro] 15 mg PO DAILY metFORMIN HCL 1,000 mg PO BID diphenhydrAMINE [Benadryl] 25 mg PO DAILY Magnesium Oxide [Mag-Ox] 250 mg PO DAILY Insulin NPH Hum/Reg Insulin Hm [Novolin 70-30 Flexpen] 80 units SQ BID Discontinued Lisinopril-Hctz 20-12.5 mg [Zestoretic 20-12.5] 1 tab PO DAILY Discharge Medication List Escitalopram Oxalate [Lexapro] 15 mg PO DAILY 11/09/17 [History] traZODone HCL 50 mg PO HS 11/09/17 [History] Insulin NPH Hum/Reg Insulin Hm [Novolin 70-30 Flexpen] 80 units SQ BID 04/23/20 [History] Magnesium Oxide [Mag-Ox] 250 mg PO DAILY 04/23/20 [History] diphenhydrAMINE [Benadryl] 25 mg PO DAILY 04/23/20 [History] metFORMIN HCL 1,000 mg PO BID 04/23/20 [History] Amoxic-Pot Clav 875-125Mg [Augmentin 875-125] 1 tab PO Q12HR 10 Days #20 tab 04/27/20 [Rx] Nystatin 100,000 Unit/gm Powd [Mycostatin Powder] 1 applic TOPICAL TID #30 applic 04/27/20 [Rx] lisinopriL 40 mg PO DAILY #30 tab 04/27/20 [Rx] Follow up Appointment(s)/Referral(s): Rula Leggett MD [Primary Care Provider] - 1-2 days [facility] [NON-STAFF] - As Needed (Contact when script obtained to fix or repair hospital bed. ) [facility], [NON-STAFF] - 1-2 Days Asad Haddad MD [Family Provider] - 1 Week Discharge Disposition: HOME SELF-CARE
[2020-04-27 11:20] LABS: African American GFR (CKD) 107.1 (60.0-200.0); Anion Gap 9.9 mmol/L (4.00-12.00); BUN/Creat Ratio 27.5 Ratio (12.00-20.00); Calcium 7.8 mg/dL (8.7-10.3); Carbon Dioxide 23.1 mmol/L (21.6-31.8); Non-African American GFR(CKD) 92.4 (60.0-200.0)
[2020-04-27 11:48] LABS: Glucose,Whole Blood 103 mg/dL (75-99)
[2020-04-27 12:19] VITALS: BP 166/65; RESP 19; TEMP 98.6
--- NOTE | 2020-04-27 15:13 | PN ---
PROGRESS NOTE DATE OF SERVICE: 04/27/2020 REASON FOR FOLLOWUP: Left lower extremity venostasis ulcer and cellulitis. INTERVAL HISTORY: The patient is currently afebrile. The patient is breathing comfortably. Denies having any chest pain or shortness of breath or cough. No abdominal pain or any worsening pain to the left lower extremity. PHYSICAL EXAMINATION: Blood pressure 156/65, pulse of 74, temperature 98.6. He is 98% on room air. General description is an elderly male lying in bed in no distress. RESPIRATORY SYSTEM: Unlabored breathing. Clear to auscultation anteriorly. HEART: S1, S2. Regular rate and rhythm. ABDOMEN: Soft. No tenderness. Left leg with multiple venostasis ulcers; good bleeding. Surrounding redness has improved. No foul-smelling drainage. LABS: BUN of 22, creatinine 0.8. Local culture negative for any resistant pathogen. Blood culture negative. DIAGNOSTIC IMPRESSION AND PLAN: Patient with acute left lower extremity venostasis ulcers with secondary cellulitis. Culture negative for resistant pathogen. On Unasyn, to finish therapy with a short course of oral Augmentin. Discussed with the admitting physician. MMODL / IJN: [id number] /
[2020-04-27] MEDS ORDERED: VANCOMYCIN TROUGH DUE 1 EACH MISC MISCELLANE ONE (17:00)
== END 2020-04-27 14:30 | disposition home health service (06) | DRG 300 ==
LOC: EC 15:55 → 6NMEDSUR 18:52 → OBSVTOIN 04-24 05:08 → 5NMEDONC 04-27 09:07
PROVIDERS: ADMIT Internal Medicine; ATTEND Internal Medicine
DX: E11.51 Type 2 diabetes mellitus with diabetic peripheral angiopathy without gangrene (principal); L03.116 Cellulitis of left lower limb; Z68.42 Body mass index [BMI] 45.0-49.9, adult; E87.1 Hypo-osmolality and hyponatremia; E87.2 Acidosis; N17.9 Acute kidney failure, unspecified; L97.329 Non-pressure chronic ulcer of left ankle with unspecified severity; E11.628 Type 2 diabetes mellitus with other skin complications; E11.65 Type 2 diabetes mellitus with hyperglycemia; D64.9 Anemia, unspecified; E66.9 Obesity, unspecified; E78.5 Hyperlipidemia, unspecified; E83.42 Hypomagnesemia; E86.0 Dehydration; L89.152 Pressure ulcer of sacral region, stage 2; I87.8 Other specified disorders of veins; E87.6 Hypokalemia; F17.200 Nicotine dependence, unspecified, uncomplicated; F32.9 Major depressive disorder, single episode, unspecified; F41.9 Anxiety disorder, unspecified; I10 Essential (primary) hypertension; I83.029 Varicose veins of left lower extremity with ulcer of unspecified site; Z79.4 Long term (current) use of insulin; Z79.899 Other long term (current) drug therapy; Z80.8 Family history of malignant neoplasm of other organs or systems; Z86.14 Personal history of Methicillin resistant Staphylococcus aureus infection; Z89.511 Acquired absence of right leg below knee; Z89.611 Acquired absence of right leg above knee
CPT/HCPCS: 36415; 80048; 80053; 81001; 82550; 83036; 83605; 83735; 85025; 85027; 87040; 87070; 87075; 87205; 96361; 96365; 96366; 96375; 99284

== ENCOUNTER 2022-09-29 13:42 | Inpatient (IN) | payer MEDICARE ==
[2022-09-29] MEDS ORDERED: HYDROcodone/APAP 5-325MG 1 EACH TAB PO PRN (18:40)
[2022-09-29] MEDS ORDERED: DEXTROSE 50% SYRINGE 50 ML IVP PRN ×2 (18:42)
[2022-09-29] MEDS ORDERED: SENNOSIDES 8.6 MG TAB PO PRN (18:45)
[2022-09-29] MEDS ORDERED: ONDANSETRON 4 MG/2 ML VIAL IVP PRN (18:45)
[2022-09-29] MEDS ORDERED: SODIUM CHLORIDE 0.65% NASAL SPRAY 44 ML BTL NASAL PRN (18:46)
[2022-09-29] MEDS ORDERED: ALPRAZolam 0.5 MG TAB PO PRN (18:59)
[2022-09-29] MEDS ORDERED: ASPIRIN 325 MG TAB PO STA (18:59)
[2022-09-29] MEDS ORDERED: ALPRAZolam 0.25 MG TAB PO PRN (18:59)
[2022-09-29] MEDS ORDERED: NITROGLYCERIN SL TABS 0.4 MG TAB SUBLINGUAL PRN (18:59)
[2022-09-29] MEDS: SODIUM CHLORIDE 0.9% 1,000 ML in EMPTY BAG 1 BAG IV SCH (19:20)
[2022-09-29 20:03] LABS: Glucose,Whole Blood 132 mg/dL (70-110)
[2022-09-29] MEDS: IPRATROPIUM-ALBUTEROL 3 ML NEB INHALATION SCH (20:25)
[2022-09-29] MEDS: BUDESONIDE 0.5 MG/2 ML NEBU INHALATION SCH (20:25)
[2022-09-29] MEDS: INSULIN ASPART (NovoLOG) 100 UNIT/ML VIAL SQ SCH (20:43)
[2022-09-29] MEDS: hydrALAZINE HCL 25 MG TAB PO SCH (20:46)
[2022-09-29] MEDS: CHOLECALCIFEROL 25 MCG (1000 IU) TABLET PO SCH (20:46)
[2022-09-29] MEDS: ATORVASTATIN 80 MG TAB PO SCH (20:46)
[2022-09-29] MEDS: carvediloL 6.25 MG TAB PO SCH (20:47)
[2022-09-30] MEDS: ATORVASTATIN 80 MG TAB PO SCH (04:39)
[2022-09-30] MEDS: carvediloL 6.25 MG TAB PO SCH ×2 (04:39→18:04)
[2022-09-30] MEDS: hydrALAZINE HCL 25 MG TAB PO SCH ×4 (04:40→20:08)
[2022-09-30] MEDS: SODIUM CHLORIDE 0.9% 1,000 ML in EMPTY BAG 1 BAG IV SCH ×2 (04:40→13:43)
[2022-09-30] MEDS: NIFEdipine XL 90 MG TAB.ER.24 PO SCH (05:25)
[2022-09-30 06:18] LABS: Glucose,Whole Blood 133 mg/dL (70-110)
[2022-09-30] MEDS: INSULIN ASPART (NovoLOG) 100 UNIT/ML VIAL SQ SCH ×4 (06:20→20:09)
[2022-09-30 07:27] LABS: Basophils % (A) 0 %; Eosinophils # (A) 0.1 k/uL (0-0.7); Eosinophils % (A) 1 %; HCT 28.9 % (39.0-53.0); HGB 9.1 gm/dL (13.0-17.5); Hypochromasia Moderate; Lymphocytes # (A) 0.8 k/uL (1.0-4.8); Lymphocytes % (A) 9 %; MCH 26.8 pg (25.0-35.0); MCHC 31.3 g/dL (31.0-37.0); MCV 85.6 fL (80.0-100.0); Mean Platelet Volume 8.8; Monocytes # (A) 0.5 k/uL (0-1.0); Monocytes % (A) 5 %; Neutrophils # (A) 7.7 k/uL (1.3-7.7); Neutrophils % (A) 83 %; Platelet Count 235 k/uL (150-450); RBC 3.38 m/uL (4.30-5.90); RDW 15.9 % (11.5-15.5); WBC 9.3 k/uL (3.8-10.6)
[2022-09-30 07:42] LABS: African American GFR (CKD) 64 (>60 ml/min/1.73 sqM); Anion Gap 9 mmol/L; Blood Urea Nitrogen 31 mg/dL (9-20); Carbon Dioxide 24 mmol/L (22-30); Chloride 105 mmol/L (98-107); Glucose 120 mg/dL (74-99); Non-African American GFR(CKD) 55 (>60 ml/min/1.73 sqM); Potassium 4.2 mmol/L (3.5-5.1); Sodium 138 mmol/L (137-145)
[2022-09-30] MEDS ORDERED: IV FLUID CONTINUATION 450 ML IV ONE (08:54)
[2022-09-30] MEDS ORDERED: ASPIRIN 325 MG TAB ONE (09:04)
[2022-09-30] MEDS ORDERED: ASPIRIN 325 MG TAB PO ONE (09:08)
[2022-09-30] MEDS ORDERED: HEPARIN SODIUM 1,000 UN/ML (10ML VL) ONE (09:10)
[2022-09-30] MEDS: BUDESONIDE 0.5 MG/2 ML NEBU INHALATION SCH ×2 (09:17→20:58)
[2022-09-30] MEDS: IPRATROPIUM-ALBUTEROL 3 ML NEB INHALATION SCH ×4 (09:17→20:58)
[2022-09-30] MEDS ORDERED: LIDOCAINE 1% INJ 10MG/ML (5 ML VIAL-PF) SQ ONE (09:21)
[2022-09-30] MEDS ORDERED: MIDAZOLAM 2 MG/2 ML VIAL IVP ONE (09:21)
[2022-09-30] MEDS ORDERED: VERAPAMIL SYRINGE (5 MG/10 ML) INTRAARTER ONE (09:23)
[2022-09-30] MEDS: HEPARIN SODIUM 1,000 UN/ML (10ML VL) IV ONE ×2 (09:26→10:14)
[2022-09-30] MEDS ORDERED: LIDOCAINE 1% INJ 10MG/ML (20 ML MDV) ONE (09:30)
[2022-09-30] MEDS ORDERED: LIDOCAINE 1% INJ 10MG/ML (20 ML MDV) SQ ONE (09:35)
[2022-09-30] MEDS ORDERED: fentaNYL (PF) 50 MCG/ML 2 ML AMP ONE (09:38)
[2022-09-30] MEDS ORDERED: fentaNYL (PF) 50 MCG/ML 2 ML AMP IVP ONE (09:40)
[2022-09-30] MEDS ORDERED: HYDROmorphone 0.5 MG/0.5 ML SYRINGE IVP ONE (09:47)
[2022-09-30] MEDS ORDERED: CLOPIDOGREL 75 MG TAB PO ONE (10:00)
[2022-09-30] MEDS ORDERED: CLOPIDOGREL 75 MG TAB ONE (10:00)
[2022-09-30] MEDS ORDERED: MORPHINE SULFATE 4 MG/ML SYRINGE ONE (10:10)
[2022-09-30] MEDS ORDERED: MORPHINE SULFATE 4 MG/ML SYRINGE IVP ONE (10:14)
[2022-09-30] MEDS ORDERED: IOPAMIDOL-370 100ML BTL INJ ONE (10:41)
[2022-09-30] MEDS ORDERED: NITROGLYCERIN SL TABS 0.4 MG TAB SUBLINGUAL PRN (10:58)
[2022-09-30] MEDS ORDERED: RX INFO: IV CONTRAST WAS GIVEN 1 EACH MISC MISCELLANE PRN (10:58)
[2022-09-30] MEDS ORDERED: MAG HYDROX/AL HYDROX/SIMETH 30 ML CUP PO PRN (10:58)
[2022-09-30] MEDS ORDERED: ATROPINE SULFATE 0.1 MG/ML 10ML SYRINGE IV PRN (10:58)
[2022-09-30] MEDS ORDERED: SODIUM CHLORIDE 0.9% 1,000 ML in EMPTY BAG 1 BAG IV SCH (11:00)
--- NOTE | 2022-09-30 11:06 | P.PCN ---
Date of Procedure: 09/30/22 Operative Findings: PERCUTANEOUS CORONARY INTERVENTION Performing physician Ryan Starks M.D. Procedure Performed: 1. Successful stenting of the distal RCA using 2.5 x 15 mm and 3.25 x 18 mm Xience drug-eluting stent with an excellent angiographic results. 2. Successful stending of the mid RCA using 4.0 x 28 mm Xience drug-eluting stent with an excellent angiographic result. 3. Adjunctive use of orbital atherectomy as well as intravascular ultrasound 4. Placement of transvenous temporary pacemaker in the right ventricle 5. Ultrasound-guided access of the right radial artery and ultrasound-guided access of the right common femoral vein Indication: Acute non-ST elevation myocardial infarction in this 72-year-old gentleman who is known to have diabetes and hypertension and dyslipidemia and bilateral [id number] amputations secondary to PAD. He was admitted to [facility] with increasing shortness of breath and ruled in for acute coronary syndrome. Subsequently a heart catheterization was performed yesterday and that revealed critical disease involving heavily calcified right as well as severe disease involving the mid LAD was a long tubular lesion he was brought today to undergo PCI of the RCA. Approach: Right radial artery Complications: None Level of Sedation: Moderate with a sedation length of 84 minutes Procedure Discussion: After obtaining an informed consent the patient was brought to the cardiac catheter builder. The right radial artery was cannulated using micro-puncture technique under ultrasound guidance and the micropuncture wire passed easily then I placed 6-[place] sheath and 11 cm at the right radial artery. At that point anticoagulation was initiated using heparin with continuous ACT monitoring throughout the case. Under fluoroscopy guidance I engaged the right coronary a rtery using an a.l. 0.75 guiding catheter. I chose a guide with support because the RCA is extremely tortuous and extremely calcified was a critical disease in the distal portion and severe disease in the midportion. Subsequently I decided to do atherectomy of the right coronary artery. For that reason I placed a transvenous temporary pacemaker in the right ventricle from right common femoral vein approach. The right common femoral vein was cannulated using micropuncture technique under ultrasound guidance, the micropuncture wire passed easily then I placed a 6-[place] sheath. Subsequently under fluoroscopy guidance the pacer catheter was advanced to the RV apex where I set the pacemaker to be at the backup heart rate of 60 beats per minutes. Then I did wire the right coronary artery using a whisper wire which was subsequently changed into the atherectomy wire using microcatheter. After that under fluoroscopy guidance the atherectomy catheter was advanced to the proximal right coronary artery and into the mid RCA were I did atherectomy of the right coronary artery under low speed 2. Then 4 the distal right coronary artery I did balloon angioplasty using initially 2 mm balloon and then 2.5 mm balloon. After that I deployed distally 2.5 x 15 mm stent and then 3.25 x 18 mm stents. The distal stent was postdilated using 3 mm noncompliant balloon. Therefore the mid RCA I dilated using 3.5 mm balloon. Intravascular ultrasound was performed before and showed a diameter of the RCA about 4 mm. I deployed 4.0 x 28 mm stent where the stent was positioned under fluoroscopy guidance and deployed under fluoroscopy guidance. Final angiogram was performed and showed an excellent angiographic results with FAYE-3 flow and the procedure was completed was no complication Postprocedure Management: 1. Dual antiplatelet therapy using aspirin and Plavix for at least 12 months 2. Aggressive cholesterol control 3. Follow-up with the patient
[2022-09-30 11:52] VITALS: BMI 57.8
[2022-09-30 11:52] LABS: Glucose,Whole Blood 125 mg/dL (70-110)
[2022-09-30] MEDS: TAMSULOSIN 0.4 MG CAP.ER.24H PO SCH (12:26)
[2022-09-30] MEDS: MULTIVITAMINS, THERA 1 EACH TAB PO SCH (12:26)
[2022-09-30] MEDS: CHOLECALCIFEROL 25 MCG (1000 IU) TABLET PO SCH (12:27)
[2022-09-30] MEDS: FAMOTIDINE 20 MG TAB PO SCH (12:27)
[2022-09-30] MEDS: INSULIN DETEMIR (LEVEMIR) 100 UNIT/ML SYR SQ SCH (12:27)
[2022-09-30] MEDS: ACETAMINOPHEN TAB 325 MG TAB PO PRN (13:49)
--- NOTE | 2022-09-30 13:51 | P.HPIM ---
History of Present Illness H&P Date: 09/30/22 Chief Complaint: Chest pain Patient is a 72-year-old male with a past medical history of hypertension, paroxysmal atrial fibrillation on anticoagulation with Eliquis, COPD, diabetes type 2, CHF, diabetic peripheral neuropathy, history of MRSA infection, bilateral above-knee amputation initially presented to [facility] with complaints of shortness of breath and apparently patient woke up in the middle of the night experiencing shortness of breath and chest pain and presented to ER. Patient has new onset atrial fibrillation in August 2026. 2D echocardiogram showed ejection fraction 55 to 60% with no significant valvular abnormalities. Patient was admitted to the hospital due to acute CHF exacerbation and proBNP level was 4944 at that time. Patient was diuresed with IV Lasix and was switched to oral Lasix. Patient underwent cardiac catheterizat ion on 09/29/2022 showed critical disease in the distal RCA and mid LAD. Cardiology recommends patient to be transferred to [facility] for intervention. Laboratory showed WBC 9.3 hemoglobin 9.1 and platelets 235 Sodium 138 potassium 4.2 chloride 105 bicarb is 24 BUN 31 creatinine 1.3 and a GFR 55 and calcium 8.5. Patient underwent cardiac catheterization on 09/30/2022 with successful stenting of the distal RCA and also successful stenting of the mid RCA Review of Systems Constitutional: Patient denies any fever or chills . no Generalized weakness. Abdomen: Patient denied any nausea or vomiting or abd. pain Cardiovascular: Patient denies any chest pain or short of breath no palpitations. Respiratory: patient denied any cough . no sputum production. No shortness of breath Neurologic: Patient denied any numbness or tingling headache. Musculoskeletal: Patient denies any complaints of joint swelling or deformity. Skin: Negative Psychiatric: Negative Endocrine: No heat or cold intolerance. No recent weight gain. Genitourinary: No dysuria or hematuria. All other 14 point ROS negative except the above Past Medical History Past Medical History: Diabetes Mellitus, Eye Disorder, GERD/Reflux, Hyperlipidem ia, Hypertension, Osteoarthritis (OA), Renal Disease Additional Past Medical History / Comment(s): HX of Chronic venous stasis wounds, IDDM type II, cataracts , arthritis in hands, neuropathy, AKA B/L History of Any Multi-Drug Resistant Organisms: MRSA Date of last positivie culture/infection: 01/16/20 MDRO Source:: Left LEG Past Surgical History: Heart Catheterization Additional Past Surgical History / Comment(s): bilateral great toes amputated, 2nd toe lt foot partial amputation, multiple debridements of venous ulcers, colonoscopy, surgery as a child for undescended testicle., ABOVE THE KNEE AMPUTATION RIGHT LEG (JUNE 2017-[facility]) Past Anesthesia/Blood Transfusion Reactions: No Reported Reaction Past Psychological History: Anxiety, Depression Additional Psychological History / Comment(s): . Smoking Status: Current every day smoker Past Alcohol Use History: Occasional Additional Past Alcohol Use History / Comment(s): no alcohol currently Past Drug Use History: None Reported - Past Family History Father Family Medical History: Cancer Additional Family Medical History / Comment(s): Father from brain cancer Mother Family Medical History: Eye Disorder Additional Family Medical History / Comment(s): Glaucoma. Mother is . Medications and Allergies Home Medications Medication Instructions Recorded Confirmed Type Escitalopram Oxalate [Lexapro] 10 mg PO DAILY 11/09/17 09/29/22 History traZODone HCL 50 mg PO HS 11/09/17 09/29/22 History Acetaminophen [Tylenol Arthritis] 650 mg PO Q6H PRN 09/29/22 09/29/22 History Atorvastatin [Lipitor] 80 mg PO DAILY 09/29/22 09/29/22 History Budesonide [Pulmicort] 0.5 mg INHALATION RT-BID 09/29/22 09/29/22 History Cholecalciferol [Vitamin D3 (25 25 mcg PO DAILY 09/29/22 09/29/22 History Mcg = 1000 Iu)] Famotidine [Pepcid] 20 mg PO DAILY 09/29/22 09/29/22 History Furosemide [Lasix] 40 mg PO BID 09/29/22 09/29/22 History HYDROcodone/APAP 5-325MG [[place] 1 tab PO Q6HR PRN 09/29/22 09/29/22 History 5-325] INSULIN LISPRO (HumaLOG) [humaLOG] 1 - 11 units SQ ACHS 09/29/22 09/29/22 Hi story Insulin Glargine [Lantus Vial] 20 unit SQ DAILY 09/29/22 09/29/22 History Ipratropium-Albuterol Nebulize 3 ml INHALATION RT-Q6H 09/29/22 09/29/22 History [Duoneb 0.5 mg-3 mg/3 ml Soln] Magnesium Oxide [Mag-Ox] 400 mg PO DAILY 09/29/22 09/29/22 History Multivitamins, Thera [Multivitamin 1 tab PO DAILY 09/29/22 09/29/22 History (formulary)] NIFEdipine [NIFEdipine ER 60 mg PO DAILY 09/29/22 09/29/22 History (Osmotic)] Sennosides [Senokot] 8.6 mg PO BID PRN 09/29/22 09/29/22 History Tamsulosin [Flomax] 0.4 mg PO DAILY 09/29/22 09/29/22 History carvediloL [Coreg] 6.25 mg PO BID-W/MEALS 09/29/22 09/29/22 History hydrALAZINE HCL [Apresoline] 25 mg PO TID 09/29/22 09/29/22 History Allergies Allergy/AdvReac Type Severity Reaction Status Date / Time No Known Allergies Allergy Verified 09/29/22 19:28 Physical Exam Vitals: Vital Signs Temp Pulse Pulse Resp BP BP Pulse Ox 09/30/22 12:19 60 09/30/22 12:09 56 L 98 09/30/22 08:00 97.8 F 56 L 18 155/94 98 09/30/22 04:00 98.0 F 54 L 18 154/94 96 09/30/22 01:26 59 L 20 09/29/22 23:29 59 L 20 148/92 95 09/29/22 20:42 59 L 09/29/22 20:28 54 L 100 09/29/22 20:00 98.2 F 54 L 18 136/75 95 09/29/22 18:10 54 L 16 09/29/22 17:20 96.4 F L 59 L 16 136/63 95 Intake and Output 09/29/22 09/30/22 09/30/22 22:59 06:59 14:59 Intake Total 950 420 Balance 950 420 Intake: IV 300 Intake, IV Titration 750 Amount Sodium Chloride 0.9% 1, 750 000 ml In Empty Bag 1 bag @ 1 ML/KG/HR 127 mls/hr IV .Q7H53M [facility] Rx#: [id number] Oral 200 120 Other: # Voids 3 Weight 127 kg 86 kg 86 kg PHYSICAL EXAMINATION: Patient is lying in the bed comfortably, no acute distress, awake alert and oriented.. HEENT: Normocephalic. Neck is supple. Pupils reactive. Nostrils clear. Oral cavity is moist. Neck reveals no JVD, carotid bruits, or thyromegaly. CHEST EXAMINATION: Trachea is central. Symmetrical expansion. Lung [place] clear to auscultation and percussion. CARDIAC: Normal S1, S2 with no gallops. No murmurs ABDOMEN: Soft. Bowel sounds present. Nontender. No organomegaly. No abdominal bruits. Extremities: Bilateral above-knee outpatient. No clubbing or cyanosis Neurologically awake, alert, oriented x3 with well-coordinated movements. No focal deficits noted Skin: No rash or skin lesions. Psychiatric: Coperative. Nonsuicidal, Musculoskeletal: No joint swelling or deformity. Results CBC & Chem 7: 09/30/22 06:56 09/30/22 06:56 Labs: Abnormal Lab Results - Last 24 Hours (Table) 09/29/22 09/30/22 09/30/22 Range/Units 20:02 06:16 06:56 RBC (4.30-5.90) m/uL Hgb (13.0-17.5) gm/dL Hct (39.0-53.0) % RDW (11.5-15.5) % Lymphocytes # (1.0-4.8) k/uL BUN (9-20) mg/dL Creatinine (0.66-1.25) mg/dL Glucose (74-99) mg/dL POC Glucose (mg/dL) 132 H 133 H (70-110) mg/dL Hemoglobin A1c 8.5 H (<=6.0) % 09/30/22 09/30/22 09/30/22 Range/Units 06:56 06:56 11:45 RBC 3.38 L (4.30-5.90) m/uL Hgb 9.1 L (13.0-17.5) gm/dL Hct 28.9 L (39.0-53.0) % RDW 15.9 H (11.5-15.5) % Lymphocytes # 0.8 L (1.0-4.8) k/uL BUN 31 H (9-20) mg/dL Creatinine 1.30 H (0.66-1.25) mg/dL Glucose 120 H (74-99) mg/dL POC Glucose (mg/dL) 125 H (70-110) mg/dL Hemoglobin A1c (<=6.0) % Thrombosis Risk Factor Assmnt - DVT/VTE Prophylaxis DVT/VTE Prophylaxis: Pharmacologic Prophylaxis ordered - Choose All That Apply Any of the Below Risk Factors Present?: Yes Each Factor Represents 1 point: Medical pt on bed rest, Obesity (BMI >25) Other Risk Factors: Yes Each Risk Factor Represents 2 Points: Age 61-74 years Other congenital or acquired thrombophilia - If yes, enter type in comment: No Thrombosis Risk Factor Assessment Total Risk Factor Score: 4 Thrombosis Risk Factor Assessment Level: Moderate Risk Assessment and Plan Assessment: Chest pain/ NSTEMI. Status post cardiac catheterization showed critical disease in the distal RCA and mid LAD. Acute on chronic CHF with diastolic dysfunction. Patient was diuresis with IV Lasix currently changed to by mouth. Paroxysmal atrial fibrillation on anticoagulation with Eliquis History of episodes of bradycardia COPD Chronic kidney disease History of recent non-ST elevated PR Decubitus ulcers Diabetes type 2 Obstructive sleep apnea Bilateral above-knee amputation Hypertension Osteoarthritis Currently everyday smoker Morbid obesity BMI 85.4 DVT prophylaxis patient is already on full anticoagulation with Eliquis Plan: Patient is status post cardiac catheterization and stent placement. Continue with aspirin Plavix. Patient is also on anticoagulation with Eliquis for atrial fibrillation. Continue with statins and Coreg and monitor heart rate closely. Continue with insulin sliding scale and Levemir. Cardiovascular supplementation and titrate down to 2 L via nasal cannula. Follow-up closely. Cardiology is on board. Time with Patient: Greater than 30
--- NOTE | 2022-09-30 14:40 | P.CRDCN ---
History of Present Illness Consult date: 09/30/22 History of present illness: History of present illness: This is a 72 year old male with history of recent new onset of atrial fibrillation, hypertension, diabetes, hyperlipidemia, MRSA infection, bilateral bknoc-smu-sphk amputations secondary to PAD. Patient presented initially to [facility] with shortness of breath and episode of chest pain and it resolved. Troponins were elevated and patient was diagnosed with non-ST elevated [place]. Patient underwent heart catheterization on 09/28 that revealed critical disease involving heavily calcified right as well as severe disease involving the mid LAD and a long tubular lesion. Patient was brought over to [facility] and today underwent PCI of the RCA with 2 stents, one in the distal and one in the mid regions. Patient is seen today following procedure. He denies having any chest pain and no pressure in his chest. He states he had some heartburn as he was being transported to his room and this was radiated to the back. Physical examination: Gen: This is a 72-year-old male resting in bed. He appears to be in no acute distress.] VS: reviewed HEENT: Head is atraumatic, normocephalic. Pupils equal, round. Sclerae is anicteric. NECK: Supple. No JVD. LUNGS: Clear to auscultation. No wheezes or rhonchi. No intercostal retractions. HEART: Regular rate and rhythm. No murmur. ABDOMEN: Soft No tenderness. EXTREMITIES: Bilateral omull-afu-qsyg amputations NEUROLOGICAL: Patient is awake, alert and oriented x3. Assessment: Non-ST elevated myocardial infarction status post stent of the distal RCA and of the mid RCA Atrial fibrillation Hypertension Hyperlipidemia Diabetes mellitus type 2 History of MRSA infection with bilateral vjngw-mpc-digg amputation secondary to PAD Chronic kidney disease stage III Chronic systolic heart failure COPD Plan: Continue current cardiac medications Further recommendations to follow based upon clinical course Thank you kindly for this consultation. Nurse practitioner note has been reviewed, I agree with documented findings and plan of care. Patient was seen and examined. 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 Date of last positivie culture/infection: 01/16/20 MDRO Source:: Left LEG Past Surgical History: Heart Catheterization Additional Past Surgical History / Comment(s): bilateral great toes amputated, 2nd toe lt foot partial amputation, multiple debridements of venous ulcers, colonoscopy, surgery as a child for undescended testicle., ABOVE THE KNEE AMPUTATION RIGHT LEG (JUNE 2017-[facility]) Past Anesthesia/Blood Transfusion Reactions: No Reported Reaction Past Psychological History: Anxiety, Depression Additional Psychological History / Comment(s): . Smoking Status: Current every day smoker Past Alcohol Use History: Occasional Additional Past Alcohol Use History / Comment(s): no alcohol currently Past Drug Use History: None Reported - Past Family History Father Family Medical History: Cancer Additional Family Medical History / Comment(s): Father from brain cancer Mother Family Medical History: Eye Disorder Additional Family Medical History / Comment(s): Glaucoma. Mother is . Medications and Allergies Home Medications Medication Instructions Recorded Confirmed Type Escitalopram Oxalate [Lexapro] 10 mg PO DAILY 11/09/17 09/29/22 History traZODone HCL 50 mg PO HS 11/09/17 09/29/22 History Acetaminophen [Tylenol Arthritis] 650 mg PO Q6H PRN 09/29/22 09/29/22 History Atorvastatin [Lipitor] 80 mg PO DAILY 09/29/22 09/29/22 History Budesonide [Pulmicort] 0.5 mg INHALATION RT-BID 09/29/22 09/29/22 History Cholecalciferol [Vitamin D3 (25 25 mcg PO DAILY 09/29/22 09/29/22 History Mcg = 1000 Iu)] Famotidine [Pepcid] 20 mg PO DAILY 09/29/22 09/29/22 History Furosemide [Lasix] 40 mg PO BID 09/29/22 09/29/22 History HYDROcodone/APAP 5-325MG [[place] 1 tab PO Q6HR PRN 09/29/22 09/29/22 History 5-325] INSULIN LISPRO (HumaLOG) [humaLOG] 1 - 11 units SQ ACHS 09/29/22 09/29/22 History Insulin Glargine [Lantus Vial] 20 unit SQ DAILY 09/29/22 09/29/22 History Ipratropium-Albuterol Nebulize 3 ml INHALATION RT-Q6H 09/29/22 09/29/22 History [Duoneb 0.5 mg-3 mg/3 ml Soln] Magnesium Oxide [Mag-Ox] 400 mg PO DAILY 09/29/22 09/29/22 History Multivitamins, Thera [Multivitamin 1 tab PO DAILY 09/29/22 09/29/22 History (formulary)] NIFEdipine [NIFEdipine ER 60 mg PO DAILY 09/29/22 09/29/22 History (Osmotic)] Sennosides [Senokot] 8.6 mg PO BID PRN 09/29/22 09/29/22 History Tamsulosin [Flomax] 0.4 mg PO DAILY 09/29/22 09/29/22 History carvediloL [Coreg] 6.25 mg PO BID-W/MEALS 09/29/22 09/29/22 History hydrALAZINE HCL [Apresoline] 25 mg PO TID 09/29/22 09/29/22 History Allergies Allergy/AdvReac Type Severity Reaction Status Date / Time No Known Allergies Allergy Verified 09/29/22 19:28 Physical Exam Vitals: Vital Signs Temp Pulse Pulse Resp BP BP Pulse Ox 09/30/22 08:00 97.8 F 56 L 18 155/94 98 09/30/22 04:00 98.0 F 54 L 18 154/94 96 09/30/22 01:26 59 L 20 09/29/22 23:29 59 L 20 148/92 95 09/29/22 20:42 59 L 09/29/22 20:28 54 L 100 09/29/22 20:00 98.2 F 54 L 18 136/75 95 09/29/22 18:10 54 L 16 09/29/22 17:20 96.4 F L 59 L 16 136/63 95 Intake and Output 09/29/22 09/30/22 09/30/22 22:59 06:59 14:59 Intake Total 950 300 Balance 950 300 Intake: IV 300 Intake, IV Titration 750 Amount Sodium Chloride 0.9% 1, 750 000 ml In Empty Bag 1 bag @ 1 ML/KG/HR 127 mls/hr IV .Q7H53M [facility] Rx#: [id number] Oral 200 Other: # Voids 3 Weight 127 kg 86 kg Results 09/30/22 06:56 09/30/22 06:56 CBC 09/30/22 Range/Units 06:56 WBC 9.3 (3.8-10.6) k/uL RBC 3.38 L (4.30-5.90) m/uL Hgb 9.1 L (13.0-17.5) gm/dL Hct 28.9 L (39.0-53.0) % Plt Count 235 (150-450) k/uL Comprehensive Metabolic Panel 09/30/22 Range/Units 06:56 Sodium 138 (137-145) mmol/L Potassium 4.2 (3.5-5.1) mmol/L Chloride 105 (98-107) mmol/L Carbon Dioxide 24 (22-30) mmol/L BUN 31 H (9-20) mg/dL Creatinine 1.30 H (0.66-1.25) mg/dL Glucose 120 H (74-99) mg/dL Calcium 9.0 (8.4-10.2) mg/dL Current Medications Generic Name Dose Route Start Last Admin Trade Name Freq PRN Reason Stop Dose Admin Acetaminophen 650 mg 09/29/22 18:37 Acetaminophen Tab 325 Mg Tab PO Q6HR PRN Fever and/ or Pain Hydrocodone Bitart/Acetaminophen 1 each 09/29/22 18:40 Hydrocodone/Apap 5-325mg 1 Each Tab PO Q6HR PRN Pain Al Hydroxide/Mg Hydroxide 30 ml 09/30/22 10:58 Mag Hydrox/Al Hydrox/Simeth 30 Ml Cup PO Q4HR PRN Heartburn Albuterol/Ipratropium 3 ml 09/29/22 20:00 09/30/22 09:17 Ipratropium-Albuterol 3 Ml Neb INHALATION Not Given RT-QID SINDHU Alprazolam 0.25 mg 09/29/22 18:59 Alprazolam 0.25 Mg Tab PO Q6HR PRN Mild Anxiety Alprazolam 0.5 mg 09/29/22 18:59 Alprazolam 0.5 Mg Tab PO Q6HR PRN Moderate Anxiety Atorvastatin Calcium 80 mg 09/29/22 21:00 09/30/22 04:39 Atorvastatin 80 Mg Tab PO 80 mg HS SINDHU Administration Atropine Sulfate 0.5 mg 09/30/22 10:58 Atropine Sulfate 0.1 Mg/Ml 10ml Syringe IV ONCE PRN Symptomatic Bradycardia Budesonide 0.5 mg 09/29/22 20:00 09/30/22 09:17 Budesonide 0.5 Mg/2 Ml Nebu INHALATION Not Given RT-BID [facility] Carvedilol 6.25 mg 09/29/22 19:30 09/30/22 04:39 Carvedilol 6.25 Mg Tab PO 6.25 mg BID-W/MEALS [facility] Administration Cholecalciferol 100 mcg 09/29/22 19:30 09/29/22 20:46 Cholecalciferol 25 Mcg (1000 Iu) Tablet PO 100 mcg DAILY [facility] Administration Clopidogrel Bisulfate 75 mg 10/01/22 09:00 Clopidogrel 75 Mg Tab PO DAILY SINDHU Protocol Dextrose/Water 25 ml 09/29/22 18:42 Dextrose 50% Syringe 50 Ml IVP PER PROTOCOL PRN Hypoglycemia Protocol Dextrose/Water 50 ml 09/29/22 18:42 Dextrose 50% Syringe 50 Ml IVP PER PROTOCOL PRN Hypoglycemia Protocol Famotidine 20 mg 09/30/22 09:00 Famotidine 20 Mg Tab PO DAILY [facility] Hydralazine HCl 25 mg 09/29/22 22:00 09/30/22 04:40 Hydralazine Hcl 25 Mg Tab PO 25 mg TID [facility] Administration Sodium Chloride 1,000 ml/ IV 1,000 mls @ 75 mls/hr 09/30/22 11:00 Solution IV 09/30/22 16:01 .[id number] [facility] Insulin Aspart 0 unit 09/29/22 21:00 09/30/22 06:20 Insulin Aspart (Novolog) 100 Unit/Ml Vial SQ Not Given ACHS [facility] Protocol Insulin Detemir 20 unit 09/30/22 07:00 Insulin Detemir (Levemir) 100 Unit/Ml Syr SQ DAILY@0700 [facility] Miscellaneous Information 1 each 09/30/22 10:58 Rx Info: Iv Contrast Was Given 1 Each Misc MISCELLANE 10/02/22 10:58 DAILY PRN Per Protocol Multivitamins 1 each 09/30/22 09:00 Multivitamins, Thera 1 Each Tab PO DAILY [facility] Nifedipine 90 mg 09/30/22 09:00 09/30/22 05:25 Nifedipine Xl 90 Mg Tab.Er.24 PO 90 mg DAILY [facility] Administration Nitroglycerin 0.4 mg 09/29/22 18:59 Nitroglycerin Sl Tabs 0.4 Mg Tab SUBLINGUAL Q5M PRN Chest Pain Ondansetron HCl 4 mg 09/29/22 18:45 Ondansetron 4 Mg/2 Ml Vial IVP Q6HR PRN Nausea And Vomiting Senna 8.6 mg 09/29/22 18:45 Sennosides 8.6 Mg Tab PO BID PRN Constipation Sodium Chloride 2 spray 09/29/22 18:46 Sodium Chloride 0.65% Nasal [place] 44 Ml Btl NASAL QID PRN Congestion Tamsulosin HCl 0.4 mg 09/30/22 08:30 Tamsulosin 0.4 Mg Cap.Er.24h PO PC-[id number] [facility] Zolpidem Tartrate 5 mg 09/30/22 21:00 Zolpidem 5 Mg Tab PO HS PRN Insomnia Intake and Output 09/29/22 09/30/22 09/30/22 22:59 06:59 14:59 Intake Total 950 300 Balance 950 300 Intake: IV 300 Intake, IV Titration 750 Amount Sodium Chloride 0.9% 1, 750 000 ml In Empty Bag 1 bag @ 1 ML/KG/HR 127 mls/hr IV .Q7H53M [facility] Rx#: [id number] Oral 200 Other: # Voids 3 Weight 127 kg 86 kg 09/30/22 06:56 09/30/22 06:56
[2022-09-30 16:31] LABS: Glucose,Whole Blood 228 mg/dL (70-110)
[2022-09-30 19:59] LABS: Glucose,Whole Blood 232 mg/dL (70-110)
[2022-09-30] MEDS ORDERED: ZOLPIDEM 5 MG TAB PO PRN (21:00)
[2022-10-01 05:53] LABS: Glucose,Whole Blood 110 mg/dL (70-110)
[2022-10-01] MEDS: INSULIN ASPART (NovoLOG) 100 UNIT/ML VIAL SQ SCH ×2 (06:04→12:20)
[2022-10-01] MEDS: carvediloL 6.25 MG TAB PO SCH (06:04)
[2022-10-01] MEDS: INSULIN DETEMIR (LEVEMIR) 100 UNIT/ML SYR SQ SCH (06:33)
[2022-10-01 07:50] LABS: African American GFR (CKD) 61 (>60 ml/min/1.73 sqM); Anion Gap 9 mmol/L; Blood Urea Nitrogen 29 mg/dL (9-20); Calcium 8.7 mg/dL (8.4-10.2); Carbon Dioxide 23 mmol/L (22-30); Chloride 108 mmol/L (98-107); Glucose 98 mg/dL (74-99); Non-African American GFR(CKD) 52 (>60 ml/min/1.73 sqM); Potassium 4.1 mmol/L (3.5-5.1); Sodium 140 mmol/L (137-145)
[2022-10-01] MEDS: BUDESONIDE 0.5 MG/2 ML NEBU INHALATION SCH (08:46)
[2022-10-01] MEDS: IPRATROPIUM-ALBUTEROL 3 ML NEB INHALATION SCH ×3 (08:46→15:16)
[2022-10-01] MEDS ORDERED: APIXABAN 5 MG TAB PO SCH (09:00)
[2022-10-01] MEDS ORDERED: CLOPIDOGREL 75 MG TAB PO SCH (09:00)
[2022-10-01] MEDS ORDERED: ASPIRIN 81 MG PO SCH (09:00)
[2022-10-01] MEDS: NIFEdipine XL 90 MG TAB.ER.24 PO SCH (09:38)
[2022-10-01] MEDS: MULTIVITAMINS, THERA 1 EACH TAB PO SCH (09:38)
[2022-10-01] MEDS: FAMOTIDINE 20 MG TAB PO SCH (09:38)
[2022-10-01] MEDS: TAMSULOSIN 0.4 MG CAP.ER.24H PO SCH (09:38)
[2022-10-01] MEDS: hydrALAZINE HCL 25 MG TAB PO SCH ×2 (09:38→15:22)
[2022-10-01] MEDS: CHOLECALCIFEROL 25 MCG (1000 IU) TABLET PO SCH (09:39)
[2022-10-01 10:02] VITALS: RESP 18
[2022-10-01] MEDS: ACETAMINOPHEN TAB 325 MG TAB PO PRN (10:03)
[2022-10-01 11:45] LABS: Glucose,Whole Blood 275 mg/dL (70-110)
--- NOTE | 2022-10-01 13:26 | P.PN ---
Subjective Progress Note Date: 10/01/22 History of present illness: This is a 72 year old male with history of recent new onset of atrial fibrilla tion, hypertension, diabetes, hyperlipidemia, MRSA infection, bilateral tudnm-ggv-sojz amputations secondary to PAD. Patient presented initially to [facility] with shortness of breath and episode of chest pain and it resolved. Troponins were elevated and patient was diagnosed with non-ST elevated [place]. Patient underwent heart catheterization on 09/28 that revealed critical disease involving heavily calcified right as well as severe disease involving the mid LAD and a long tubular lesion. Patient was brought over to [facility] and today underwent PCI of the RCA with 2 stents, one in the distal and one in the mid regions. Patient is seen today following procedure. He denies having any chest pain and no pressure in his chest. He states he had some heartburn as he was being transported to his room and this was radiated to the back. 10/01 There is concern the patient bradycardia in the 30s last night while he was sleeping. He denies having any chest pain or shortness of breath. Patient is normally nonambulatory. Repeat blood work reveals potassium 4.1, BUN 29 creatinine 1.36. Physical examination: Gen: This is a 72-year-old male resting in bed. He appears to be in no acute distress.] VS: reviewed HEENT: Head is atraumatic, normocephalic. Pupils equal, round. Sclerae is anicteric. NECK: Supple. No JVD. LUNGS: Clear to auscultation. No wheezes or rhonchi. No intercostal retractions. HEART: Regular rate and rhythm. No murmur. ABDOMEN: Soft No tenderness. EXTREMITIES: Bilateral rwkdy-fsi-bdsa amputations NEUROLOGICAL: Patient is awake, alert and oriented x3. Assessment: Non-ST elevated myocardial infarction status post stent of the distal RCA and of the mid RCA Atrial fibrillation Hypertension Hyperlipidemia Diabetes mellitus type 2 History of MRSA infection with bilateral [id number]-rob-[id number] amputation secondary to PAD Chronic kidney disease stage III Chronic systolic heart failure COPD Asymptomatic bradycardia Plan: Continue current cardiac medications, cleared to continue Coreg Patient is cleared for discharge from cardiology and may follow-up with Dr. Starks in the office in one week. Nurse practitioner note has been reviewed, I agree with documented findings and plan of care. Patient was seen and examined. Objective - Vital Signs Vital signs: Vital Signs Temp 98.1 F 10/01/22 08:00 Pulse 63 10/01/22 11:09 Resp 18 10/01/22 08:00 BP 174/76 10/01/22 08:00 Pulse Ox 97 10/01/22 08:48 FiO2 Intake & Output 09/30/22 10/01/22 10/01/22 18:59 06:59 18:59 Intake Total 420 118 Output Total 550 Balance 420 -550 118 Weight 86 kg Intake: IV 300 Oral 120 118 Output: Urine 550 Other: # Voids 0 # Bowel Movements 0 - Labs CBC & Chem 7: 09/30/22 06:56 10/01/22 06:57 Labs: Abnormal Lab Results - Last 24 Hours (Table) 09/30/22 09/30/22 09/30/22 Range/Units 06:56 11:45 16:26 Chloride (98-107) mmol/L BUN (9-20) mg/dL Creatinine (0.66-1.25) mg/dL POC Glucose (mg/dL) 125 H 228 H (70-110) mg/dL Hemoglobin A1c 8.5 H (<=6.0) % 09/30/22 10/01/22 Range/Units 19:58 06:57 Chloride 108 H (98-107) mmol/L BUN 29 H (9-20) mg/dL Creatinine 1.36 H (0.66-1.25) mg/dL POC Glucose (mg/dL) 232 H (70-110) mg/dL Hemoglobin A1c (<=6.0) %
[2022-10-01 13:37] VITALS: BP 145/64; PULSE 78; TEMP 98
--- NOTE | 2022-10-01 15:00 | P.DS ---
Providers Date of admission: 09/29/22 17:13 Expected date of discharge: 10/01/22 Attending physician: Karen Narayan Consults: 09/29/22 19:04 Consult Physician Urgent Consulting Provider: Ryan Starks Consult Reason/Comments: jennifer from [facility] for heart cath Do you want consulting provider notified?: Yes, Notify in am 09/30/22 10:58 Consult Physician Routine Consulting Provider: [facility] Consult Reason/Comments: Post Interventional patient Do you want consulting provider notified?: Already Contacted Primary care physician: Tiffany Brockton Hospital Course: Discharge diagnosis Chest pain/ NSTEMI. Status post cardiac catheterization showed critical disease in the distal RCA and mid LAD. Acute on chronic CHF with diastolic dysfunction. Patient was diuresis with IV Lasix at [facility].. Paroxysmal atrial fibrillation on anticoagulation with Eliquis History of episodes of bradycardia COPD Chronic kidney disease History of recent non-ST elevated AL Decubitus ulcers Diabetes type 2 Obstructive sleep apnea Bilateral above-knee amputation Hypertension Osteoarthritis Currently everyday smoker Morbid obesity BMI 85.4 DVT prophylaxis patient is [facility] Patient is a 72-year-old male with a past medical history of hypertension, paroxysmal atrial fibrillation on anticoagulation with Eliquis, COPD, diabetes type 2, CHF, diabetic peripheral neuropathy, history of MRSA infection, bilateral above-knee amputation initially presented to [facility] with complaints of shortness of breath and apparently patient woke up in the middle of the night experiencing shortness of breath and chest pain and presented to ER. Patient has new onset atrial fibrillation in August 2026. 2D echocardiogram showed ejection fraction 55 to 60% with no significant valvular abnormalities. Patient was admitted to the hospital due to acute CHF exacerbation and proBNP level was 4944 at that time. Patient was diuresed with IV Lasix and was switched to oral Lasix. Patient underwent cardiac catheterization on 09/29/2022 showed critical disease in the distal RCA and mid LAD. Cardiology recommends patient to be transferred to [facility] for intervention. Laboratory showed WBC 9.3 hemoglobin 9.1 and platelets 235 Sodium 138 potassium 4.2 chloride 105 bicarb is 24 BUN 31 creatinine 1.3 and a GFR 55 and calcium 8.5. Patient underwent cardiac catheterization on 09/30/2022 with successful stenting of the distal RCA and also successful stenting of the mid RCA 10/01/2022 Patient is currently sitting in the bed. Awake alert and oriented 3. No complaints of chest pain or shortness of breath. Feels better. Denied any complaints of dizziness or lightheadedness. Patient is on wheelchair for ambulation. No fever no chills. Overnight heart rate went down to 50s. Cardiology requested to continue Coreg at this time. Continue with dual antiplatelet therapy and follow up with Dr. Flynn as outpatient in 1 week. Patient is being discharged to [facility] today. Laboratory data showed sodium 140 potassium 4.1 chloride 100 bicarb is 23 BUN 29 and creatinine 1.36. Partial is fairly controlled. PHYSICAL EXAMINATION: Patient is lying in the bed comfortably, no acute distress, awake alert and oriented.. HEENT: Normocephalic. Neck is supple. Pupils reactive. Nostrils clear. Oral cavity is moist. Neck reveals no JVD, carotid bruits, or thyromegaly. CHEST EXAMINATION: Trachea is central. Symmetrical expansion. Lung [place] clear to auscultation and percussion. CARDIAC: Normal S1, S2 with no gallops. No murmurs ABDOMEN: Soft. Bowel sounds present. Nontender. No organomegaly. No abdominal bruits. Extremities: Bilateral above-knee outpatient. No clubbing or cyanosis Neurologically awake, alert, oriented x3 with well-coordinated movements. No focal deficits noted Skin: No rash or skin lesions. Psychiatric: Coperative. Nonsuicidal, Musculoskeletal: No joint swelling or deformity. Vital Signs - 8 hr 10/01/22 10/01/22 10/01/22 08:00 08:48 09:02 Temperature 98.1 F Pulse Rate 64 65 Pulse Rate [ 74 Right Supine Pulse Oximetery ] Respiratory 18 Rate Blood Pressure 174/76 [Left Arm] O2 Sat by Pulse 97 97 Oximetry 10/01/22 10/01/22 10/01/22 11:09 11:19 12:00 Temperature 98.0 F Pulse Rate 63 65 Pulse Rate [ 78 Right Supine Pulse Oximetery ] Respiratory 18 Rate Blood Pressure 145/64 [Left Arm] O2 Sat by Pulse 98 Oximetry 10/01/22 13:38 Temperature Pulse Rate Pulse Rate [ 78 Right Supine Pulse Oximetery ] Respiratory 18 Rate Blood Pressure [Left Arm] O2 Sat by Pulse Oximetry Total time taken greater than 35 minutes including 18 minutes for counseling and coordination of care. Patient Condition at Discharge: Stable Plan - Discharge Summary Discharge Rx Participant: No New Discharge Prescriptions: New Aspirin 81 mg PO DAILY #30 tab Apixaban [Eliquis] 5 mg PO BID tab NIFEdipine XL [Procardia XL] 90 mg PO DAILY #30 tab Furosemide [Lasix] 20 mg PO DAILY #30 tab Nitroglycerin Sl Tabs [Nitrostat] 0.4 mg SUBLINGUAL Q5M PRN #30 tab PRN Reason: Chest Pain Clopidogrel [Plavix] 75 mg PO DAILY #30 tab Continue traZODone HCL 50 mg PO HS Escitalopram Oxalate [Lexapro] 10 mg PO DAILY Multivitamins, Thera [Multivitamin (formulary)] 1 tab PO DAILY Magnesium Oxide [Mag-Ox] 400 mg PO DAILY INSULIN LISPRO (HumaLOG) [humaLOG] 1 - 11 units SQ ACHS Insulin Glargine [Lantus Vial] 20 unit SQ DAILY Cholecalciferol [Vitamin D3 (25 Mcg = 1000 Iu)] 25 mcg PO DAILY Budesonide [Pulmicort] 0.5 mg INHALATION RT-BID Atorvastatin [Lipitor] 80 mg PO DAILY Tamsulosin [Flomax] 0.4 mg PO DAILY Sennosides [Senokot] 8.6 mg PO BID PRN PRN Reason: Constipation Ipratropium-Albuterol Nebulize [Duoneb 0.5 mg-3 mg/3 ml Soln] 3 ml INHALATION RT-Q6H hydrALAZINE HCL [Apresoline] 25 mg PO TID Famotidine [Pepcid] 20 mg PO DAILY carvediloL [Coreg] 6.25 mg PO BID-W/MEALS Acetaminophen [Tylenol Arthritis] 650 mg PO Q6H PRN PRN Reason: Fever And/ Or Pain HYDROcodone/APAP 5-325MG [[place] 5-325] 1 tab PO Q6HR PRN 3 Days #12 tab PRN Reason: Pain Discontinued Furosemide [Lasix] 40 mg PO BID NIFEdipine [NIFEdipine ER (Osmotic)] 60 mg PO DAILY Discharge Medication List Escitalopram Oxalate [Lexapro] 10 mg PO DAILY 11/09/17 [History] traZODone HCL 50 mg PO HS 11/09/17 [History] Acetaminophen [Tylenol Arthritis] 650 mg PO Q6H PRN 09/29/22 [History] Atorvastatin [Lipitor] 80 mg PO DAILY 09/29/22 [History] Budesonide [Pulmicort] 0.5 mg INHALATION RT-BID 09/29/22 [History] Cholecalciferol [Vitamin D3 (25 Mcg = 1000 Iu)] 25 mcg PO DAILY 09/29/22 [History] Famotidine [Pepcid] 20 mg PO DAILY 09/29/22 [History] INSULIN LISPRO (HumaLOG) [humaLOG] 1 - 11 units SQ ACHS 09/29/22 [History] Insulin Glargine [Lantus Vial] 20 unit SQ DAILY 09/29/22 [History] Ipratropium-Albuterol Nebulize [Duoneb 0.5 mg-3 mg/3 ml Soln] 3 ml INHALATION RT-Q6H 09/29/22 [History] Magnesium Oxide [Mag-Ox] 400 mg PO DAILY 09/29/22 [History] Multivitamins, Thera [Multivitamin (formulary)] 1 tab PO DAILY 09/29/22 [History] Sennosides [Senokot] 8.6 mg PO BID PRN 09/29/22 [History] Tamsulosin [Flomax] 0.4 mg PO DAILY 09/29/22 [History] carvediloL [Coreg] 6.25 mg PO BID-W/MEALS 09/29/22 [History] hydrALAZINE HCL [Apresoline] 25 mg PO TID 09/29/22 [History] Apixaban [Eliquis] 5 mg PO BID tab 10/01/22 [Rx] Aspirin 81 mg PO DAILY #30 tab 10/01/22 [Rx] Clopidogrel [Plavix] 75 mg PO DAILY #30 tab 10/01/22 [Rx] Furosemide [Lasix] 20 mg PO DAILY #30 tab 10/01/22 [Rx] HYDROcodone/APAP 5-325MG [[place] 5-325] 1 tab PO Q6HR PRN 3 Days #12 tab 10/01/22 [Rx] NIFEdipine XL [Procardia XL] 90 mg PO DAILY #30 tab 10/01/22 [Rx] Nitroglycerin Sl Tabs [Nitrostat] 0.4 mg SUBLINGUAL Q5M PRN #30 tab 10/01/22 [Rx] Follow up Appointment(s)/Referral(s): Ryan Starks MD [STAFF PHYSICIAN] - 1 Week Discharge Disposition: TRANSFER TO SNF/ECF
== END 2022-10-01 16:22 | DRG 246 ==
LOC: 3SCARD 17:13
PROVIDERS: ADMIT Hospitalist; ATTEND Hospitalist
PROC: B241ZZ3 Ultrasonography of Multiple Coronary Arteries, Intravascular (ICD-10-PCS; 2022-09-30)
PROC: 5A1223Z Performance of Cardiac Pacing, Continuous (ICD-10-PCS; 2022-09-30)
PROC: 027136Z Dilation of Coronary Artery, Two Arteries with Three Drug-eluting Intraluminal Devices, Percutaneous Approach (ICD-10-PCS; principal; 2022-09-30 09:00)
PROC: 02C03Z7 Extirpation of Matter from Coronary Artery, One Artery, Orbital Atherectomy Technique, Percutaneous Approach (ICD-10-PCS; 2022-09-30 09:00)
DX: I21.4 Non-ST elevation (NSTEMI) myocardial infarction (principal); I50.43 Acute on chronic combined systolic (congestive) and diastolic (congestive) heart failure; I13.0 Hypertensive heart and chronic kidney disease with heart failure and stage 1 through stage 4 chronic kidney disease, or unspecified chronic kidney disease; Z68.45 Body mass index [BMI] 70 or greater, adult; N18.30 Chronic kidney disease, stage 3 unspecified; E66.01 Morbid (severe) obesity due to excess calories; Z79.01 Long term (current) use of anticoagulants; Z86.14 Personal history of Methicillin resistant Staphylococcus aureus infection; E11.42 Type 2 diabetes mellitus with diabetic polyneuropathy; E11.22 Type 2 diabetes mellitus with diabetic chronic kidney disease; I48.0 Paroxysmal atrial fibrillation; J44.9 Chronic obstructive pulmonary disease, unspecified; R00.1 Bradycardia, unspecified; M19.90 Unspecified osteoarthritis, unspecified site; E11.51 Type 2 diabetes mellitus with diabetic peripheral angiopathy without gangrene; E78.5 Hyperlipidemia, unspecified; F17.210 Nicotine dependence, cigarettes, uncomplicated; F32.A Depression, unspecified; F41.9 Anxiety disorder, unspecified; G47.33 Obstructive sleep apnea (adult) (pediatric); I25.2 Old myocardial infarction; Z98.42 Cataract extraction status, left eye; Z98.41 Cataract extraction status, right eye; I87.8 Other specified disorders of veins; M19.041 Primary osteoarthritis, right hand; M19.042 Primary osteoarthritis, left hand; Z79.4 Long term (current) use of insulin; Z79.899 Other long term (current) drug therapy; Z89.611 Acquired absence of right leg above knee; Z89.612 Acquired absence of left leg above knee
CPT/HCPCS: 80048; 83036; 85025; 92978; 94640; 94760

== ENCOUNTER 2022-10-17 11:25 | Inpatient (IN) | payer MEDICARE ==
[2022-10-17 10:21] LABS: Glucose,Whole Blood 105 mg/dL (70-110)
[2022-10-17] MEDS: SODIUM CHLORIDE 0.9% 1,000 ML in EMPTY BAG 1 BAG IV SCH ×3 (10:30→20:12)
[~2022-10-17 11:25] MED LIST: ALPRAZolam 0.25 MG TAB PO PRN; ASPIRIN 325 MG TAB PO STA; ATORVASTATIN 80 MG TAB PO STA; LORazepam 2 MG/ML INJ IV PRN; NITROGLYCERIN SL TABS 0.4 MG TAB SUBLINGUAL PRN; SODIUM CHLORIDE 0.9% 1,000 ML IV ONE
[2022-10-17] MEDS ORDERED: DEXTROSE 50% SYRINGE 50 ML IVP PRN ×2 (11:44)
[2022-10-17] MEDS ORDERED: fentaNYL (PF) 50 MCG/ML 2 ML AMP ONE (12:35)
[2022-10-17] MEDS ORDERED: HEPARIN SODIUM 1,000 UN/ML (10ML VL) ONE (12:42)
[2022-10-17] MEDS ORDERED: MIDAZOLAM 2 MG/2 ML VIAL IVP ONE ×2 (12:45→13:22)
[2022-10-17] MEDS: fentaNYL (PF) 50 MCG/ML 2 ML AMP IVP ONE ×2 (12:45→13:12)
[2022-10-17] MEDS ORDERED: HYDROmorphone 1 MG/ML 1 ML SYRINGE ONE ×2 (13:10→13:21)
[2022-10-17] MEDS ORDERED: LIDOCAINE 1% INJ 10MG/ML (5 ML VIAL-PF) SQ ONE (13:12)
[2022-10-17] MEDS ORDERED: VERAPAMIL SYRINGE (5 MG/10 ML) INTRAARTER ONE (13:13)
[2022-10-17] MEDS ORDERED: HEPARIN SODIUM 1,000 UN/ML (10ML VL) IVP ONE (13:14)
[2022-10-17] MEDS ORDERED: HYDROmorphone 1 MG/ML 1 ML SYRINGE IVP ONE ×2 (13:14→13:22)
[2022-10-17] MEDS: NITROGLYCERIN 1000MCG/10ML SYRINGE INTRAARTER ONE ×2 (13:19→13:30)
[2022-10-17] MEDS ORDERED: CLOPIDOGREL 75 MG TAB ONE (13:33)
[2022-10-17] MEDS ORDERED: CLOPIDOGREL 75 MG TAB PO ONE (13:38)
[2022-10-17] MEDS ORDERED: IOPAMIDOL-370 100ML BTL INJ ONE (13:38)
[2022-10-17] MEDS ORDERED: RX INFO: IV CONTRAST WAS GIVEN 1 EACH MISC MISCELLANE PRN (13:41)
[2022-10-17] MEDS ORDERED: MAG HYDROX/AL HYDROX/SIMETH 30 ML CUP PO PRN (13:41)
[2022-10-17] MEDS ORDERED: NITROGLYCERIN SL TABS 0.4 MG TAB SUBLINGUAL PRN (13:41)
[2022-10-17] MEDS ORDERED: ATROPINE SULFATE 0.1 MG/ML 10ML SYRINGE IV PRN (13:41)
[2022-10-17] MEDS ORDERED: SODIUM CHLORIDE 0.9% 1,000 ML in EMPTY BAG 1 BAG IV SCH (13:45)
--- NOTE | 2022-10-17 13:46 | P.PCN ---
Date of Procedure: 10/17/22 Operative Findings: PERCUTANEOUS CORONARY INTERVENTION Performing physician Ryan Starks M.D. Procedure Performed: 1. Successful stenting of the mid LAD using 2.75 x 28 Xience drug-eluting stent with an excellent angiographic results. 2. Ultrasound-guided access of the right radial artery Indication: Chest discomfort and this 72-year-old gentleman who is known to have severe two- vessel CAD. He underwent a heart catheterization a few weeks ago and that showed severe disease involving the right coronary artery which was stented as well as the LAD. He was brought today to undergo PCI of the LAD Approach: Right radial artery Complications: None Level of Sedation: Moderate with a sedation length of 21 minutes Procedure Discussion: After obtaining an informed consent the patient was brought to the cardiac laborer brooder farm. The right radial artery was cannulated using micropuncture technique under ultrasound guidance and the micropuncture wire passed easily then I placed a 6- Romansh sheath. I gave the patient 2 mg of verapamil and her arterial and 4000 use of heparin and the venous. Subsequently I did engage the left main using a CLS 3.5 guide. I did wire the LAD using a run-through wire. I did balloon angioplasty of the LAD using 2.5 x 15 mm balloon before I deployed 2.75 x 28 mm stent where the stent was positioned under fluoroscopy guidance and deployed under fluoroscopy guidance. Advancing the stent was performed using guide liner because the stent would not cross the midportion of the LAD. The procedure was completed with no complication. Postprocedure Management: 1. Dual antiplatelet therapy using aspirin and Plavix for at least 6 months 2. Aggressive cholesterol control 3. Risk factors modification
[2022-10-17] MEDS: INSULIN ASPART (NovoLOG) 100 UNIT/ML VIAL SQ SCH ×3 (16:01→20:10)
[2022-10-17 16:16] LABS: Glucose,Whole Blood 125 mg/dL (70-110)
[2022-10-17] MEDS ORDERED: SENNOSIDES 8.6 MG TAB PO PRN (16:52)
--- NOTE | 2022-10-17 16:58 | P.HPIM ---
History of Present Illness H&P Date: 10/17/22 Chief Complaint: Chest pain 72-year-old male patient with known history of diabetes mellitus controlled with insulin, hypertension, hyperlipidemia and severe 2 vessel coronary artery disease and CHF, recently underwent cardiac catheterization a few weeks ago which showed severe disease involving right coronary artery as well as LAD; patient underwent stenting of right coronary artery at that time and is brought to the hospital today to undergo PCI of LAD - Patient is status post cardiac catheterization with PCI of LAD; denies any complaint of chest pain or shortness of breath at this time Review of Systems REVIEW OF SYSTEMS: CONSTITUTIONAL: No fever, no malaise, no fatigue. HEENT: No recent visual problems or hearing problems. Denied any sore throat. CARDIOVASCULAR: No chest pain, orthopnea, PND, no palpitations, no syncope. PULMONARY: No shortness of breath, no cough, no hemoptysis. GASTROINTESTINAL: No diarrhea, no nausea, no vomiting, no abdominal pain. NEUROLOGICAL: No headaches, no weakness, no numbness. HEMATOLOGICAL: Denies any bleeding or petechiae. GENITOURINARY: Denies any burning micturition, frequency, or urgency. MUSCULOSKELETAL/RHEUMATOLOGICAL: Denies any joint pain, swelling, or any muscle pain. ENDOCRINE: Denies any polyuria or polydipsia. The rest of the 14-point review of systems is negative. 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 Date of last positivie culture/infection: 01/16/20 MDRO Source:: Left LEG Past Surgical History: Heart Catheterization Additional Past Surgical History / Comment(s): bilateral great toes amputated, 2nd toe lt foot partial amputation, multiple debridements of venous ulcers, colonoscopy, surgery as a child for undescended testicle., ABOVE THE KNEE AMPUTATION RIGHT LEG (JUNE 2017-[facility]) Past Anesthesia/Blood Transfusion Reactions: No Reported Reaction Past Psychological History: Anxiety, Depression Additional Psychological History / Comment(s): . Smoking Status: Current every day smoker Past Alcohol Use History: Occasional Additional Past Alcohol Use History / Comment(s): no alcohol currently Past Drug Use History: None Reported - Past Family History Father Family Medical History: Cancer Additional Family Medical History / Comment(s): Father from brain cancer Mother Family Medical History: Eye Disorder Additional Family Medical History / Comment(s): Glaucoma. Mother is . Medications and Allergies Home Medications Medication Instructions Recorded Confirmed Type Escitalopram Oxalate [Lexapro] 10 mg PO DAILY 11/09/17 10/17/22 History traZODone HCL 50 mg PO HS 11/09/17 10/17/22 History Acetaminophen [Tylenol Arthritis] 650 mg PO Q6H PRN 09/29/22 10/17/22 History Atorvastatin [Lipitor] 80 mg PO DAILY 09/29/22 10/17/22 History Budesonide [Pulmicort] 0.5 mg INHALATION RT-BID 09/29/22 10/17/22 History Cholecalciferol [Vitamin D3 (25 25 mcg PO DAILY 09/29/22 10/17/22 History Mcg = 1000 Iu)] Famotidine [Pepcid] 20 mg PO DAILY 09/29/22 10/17/22 History INSULIN LISPRO (HumaLOG) [humaLOG] 1 - 11 units SQ ACHS 09/29/22 10/17/22 History Insulin Glargine [Lantus Vial] 20 unit SQ BID-W/MEALS 09/29/22 10/17/22 History Ipratropium-Albuterol Nebulize 3 ml INHALATION RT-Q6H 09/29/22 10/17/22 History [Duoneb 0.5 mg-3 mg/3 ml Soln] Magnesium Oxide [Mag-Ox] 400 mg PO DAILY 09/29/22 10/17/22 History Multivitamins, Thera [Multivitamin 1 tab PO DAILY 09/29/22 10/17/22 History (formulary)] Sennosides [Senokot] 8.6 mg PO BID PRN 09/29/22 10/17/22 History Tamsulosin [Flomax] 0.4 mg PO DAILY 09/29/22 10/17/22 History carvediloL [Coreg] 6.25 mg PO BID-W/MEALS 09/29/22 10/17/22 History hydrALAZINE HCL [Apresoline] 25 mg PO TID 09/29/22 10/17/22 History Apixaban [Eliquis] 5 mg PO BID tab 10/01/22 10/17/22 Rx Aspirin 81 mg PO DAILY #30 tab 10/01/22 10/17/22 Rx Clopidogrel [Plavix] 75 mg PO DAILY #30 tab 10/01/22 10/17/22 Rx HYDROcodone/APAP 5-325MG [[place] 1 tab PO Q6HR PRN 3 Days #12 tab 10/01/22 10/17/22 Rx 5-325] NIFEdipine XL [Procardia XL] 90 mg PO DAILY #30 tab 10/01/22 10/17/22 Rx Nitroglycerin Sl Tabs [Nitrostat] 0.4 mg SUBLINGUAL Q5M PRN #30 tab 10/01/22 Rx Allergies Allergy/AdvReac Type Severity Reaction Status Date / Time No Known Allergies Allergy Verified 10/17/22 14:57 Physical Exam Vitals: Vital Signs Temp Pulse Resp BP Pulse Ox 10/17/22 10:38 98.8 F 52 L 22 155/67 93 L Intake and Output 10/16/22 10/17/22 10/17/22 22:59 06:59 14:59 Intake Total 500 Output Total 225 Balance 275 Intake: IV 500 Output: Urine 225 Other: Weight 122.4 kg - Constitutional General appearance: Present: average body habitus, cooperative, no acute distress - EENT Eyes: Present: anicteric sclerae, EOMI, PERRLA, normal appearance ENT: Present: hearing grossly normal, normal oropharynx Ears: bilateral: normal - Neck Neck: Present: normal ROM. Absent: lymphadenopathy, rigidity, thyromegaly Carotids: negative: bruit present Thyroid: bilateral: normal size, negative: enlarged, nodule - Respiratory Respiratory: bilateral: CTA, negative: rales, rhonchi, wheezing - Cardiovascular Rhythm: regular Heart sounds: normal: S1, S2 Abnormal Heart Sounds: Absent: systolic murmur, diastolic murmur - Gastrointestinal General gastrointestinal: Present: normal bowel sounds, soft. Absent: distended, organomegaly, tenderness - Genitourinary Genitourinary Comment(s): deferred - Integumentary Integumentary: Present: normal turgor. Absent: jaundiced, rash, ulcer - Neurologic Neurologic: Present: CNII-XII intact. Absent: focal deficits - Musculoskeletal Musculoskeletal: Present: gait normal, strength equal bilaterally - Psychiatric Psychiatric: Present: A&O x's 3, appropriate affect, intact judgment & insight Assessment and Plan Assessment: 1. Severe 2 vessel coronary artery disease - Patient was admitted and underwent cardiac catheterization a few weeks ago with right coronary artery stenting - Patient is status post successful stenting of mid LAD using drug-eluting stent with good angiographic results - Patient is recommended to hold antiplatelet therapy with aspirin and Plavix for at least 6 months - Aggressive control of cholesterol is recommended - Risk factor modification 2. Hypertension; patient remains on Coreg 6.25 mg twice a day; nifedipine 90 mg daily; hydralazine 25 mg 3 times a day 3. Hyperlipidemia; Lipitor 80 mg by mouth daily at bedtime 4. Diabetes mellitus2 with long-term insulin use; continue with home dose of Lantus 20 units subcu twice a day; monitor Accu-Cheks before meals and at bedtime with insulin sliding scale 5. COPD; not in exacerbation; patient remains on bronchodilator and steroid nebulizer treatments 5. Depression; Lexapro 10 mg daily 6. Urinary retention; Flomax 0.4 mg daily DVT prophylaxis; SCDs/IV heparin CODE STATUS; full code
[2022-10-17 19:53] LABS: Glucose,Whole Blood 176 mg/dL (70-110)
[2022-10-17] MEDS: carvediloL 6.25 MG TAB PO SCH (20:10)
[2022-10-17] MEDS: HYDROcodone/APAP 5-325MG 1 EACH TAB PO PRN (20:18)
[2022-10-17] MEDS: INSULIN DETEMIR (LEVEMIR) 100 UNIT/ML SYR SQ SCH (20:19)
[2022-10-17] MEDS: IPRATROPIUM-ALBUTEROL 3 ML NEB INHALATION SCH (20:26)
[2022-10-17] MEDS: BUDESONIDE 0.5 MG/2 ML NEBU INHALATION SCH (20:26)
[2022-10-17] MEDS: hydrALAZINE HCL 25 MG TAB PO SCH (23:59)
[2022-10-18] MEDS: IPRATROPIUM-ALBUTEROL 3 ML NEB INHALATION SCH ×4 (00:18→21:28)
[2022-10-18 05:48] LABS: Glucose,Whole Blood 215 mg/dL (70-110)
[2022-10-18] MEDS: INSULIN DETEMIR (LEVEMIR) 100 UNIT/ML SYR SQ SCH ×2 (06:57→17:50)
[2022-10-18] MEDS: INSULIN ASPART (NovoLOG) 100 UNIT/ML VIAL SQ SCH ×4 (06:58→20:58)
[2022-10-18] MEDS ORDERED: HEPARIN SODIUM,PORCINE 10,000 UNIT in SODIUM CHLORIDE 0.9% 1,000 ML IRRIGATION PRN (07:00)
[2022-10-18] MEDS ORDERED: HEPARIN SODIUM,PORCINE (1 ML) 2,500 UNIT in SODIUM CHLORIDE 0.9% 250 ML IRRIGATION PRN (07:00)
[2022-10-18] MEDS: BUDESONIDE 0.5 MG/2 ML NEBU INHALATION SCH ×2 (07:32→21:28)
[2022-10-18] MEDS: carvediloL 6.25 MG TAB PO SCH ×2 (09:18→16:49)
[2022-10-18] MEDS: CHOLECALCIFEROL 25 MCG (1000 IU) TABLET PO SCH (09:18)
[2022-10-18] MEDS: TAMSULOSIN 0.4 MG CAP.ER.24H PO SCH (09:18)
[2022-10-18] MEDS: CLOPIDOGREL 75 MG TAB PO SCH (09:18)
[2022-10-18] MEDS: hydrALAZINE HCL 25 MG TAB PO SCH ×3 (09:18→20:56)
[2022-10-18] MEDS: NIFEdipine XL 90 MG TAB.ER.24 PO SCH (09:18)
[2022-10-18] MEDS: ESCITALOPRAM 10 MG TAB PO SCH (09:18)
[2022-10-18] MEDS: FAMOTIDINE 20 MG TAB PO SCH (09:18)
[2022-10-18] MEDS: MAGNESIUM OXIDE 400 MG TAB PO SCH (09:18)
[2022-10-18 11:16] LABS: Glucose,Whole Blood 156 mg/dL (70-110)
--- NOTE | 2022-10-18 11:24 | P.PN ---
Subjective Progress Note Date: 10/18/22 History of present illness: This is a 72-year-old male with past medical history coronary artery disease s tatus post recent PCI to the RCA September 2022, residual critical stenosis in the proximal LAD, acute on chronic preserved EF heart failure, paroxysmal atrial fibrillation, chronic kidney disease stage III A, IVs mellitus type II, hypertension, peripheral artery disease with bilateral [id number] amputations, COPD, obstructive sleep apnea, morbid obesity. Patient presented to [facility] in early part of September with worsening shortness of breath chest pain at that time was found E and ACS with a non-ST elevated myocardial infarction and underwent cardiac catheterization and eventually had PCI done at [facility] with Dr. Starks. He received 2 stents in the RCA and had a known residual critical stenosis in the proximal LAD. Patient was discharged to [facility] and subsequently returned due to worsening shortness of breath with minimal exertion hypoxia. He was treated for acute systolic heart failure, stabilized and transferred to [facility] subsequently underwent PCI of the RCA. Patient states he is not feeling that well today with some shortness of breath. No chest pain. Echocardiogram September 2022 revealed EF 55 Physical examination: Gen: This is a morbidly obese 72-year-old male. VS: reviewed HEENT: Head is atraumatic, normocephalic. Pupils equal, round. Sclerae is anicteric. NECK: Supple. No JVD. . LUNGS: Diminished. No intercostal retractions. HEART: Regular rate and rhythm. No murmur. ABDOMEN: Soft No tenderness. EXTREMITIES: Bilateral [id number] amputations, no edema to the stumps. No edema to the upper extremities. NEUROLOGICAL: Patient is awake, alert and oriented x3. Assessment: Coronary artery disease status post stent of the LAD Recent stent to the RCA in September Acute on chronic diastolic heart failure Paroxysmal atrial fibrillation Chronic kidney disease stage III A Diabetes mellitus type 2 Hypertension Peripheral artery disease with bilateral [id number] amputations COPD Obstructive sleep apnea Morbid obesity Plan: Continue current cardiac medications Start patient on Lasix 40 mg daily and potassium 20 mg once daily Monitor I&O, daily weights, I's and O's, electrolytes and renal function Further recommendations to follow based upon clinical course Nurse practitioner note has been reviewed, I agree with documented findings and plan of care. Patient was seen and examined. Objective - Vital Signs Vital signs: Vital Signs Temp 97.8 F 10/18/22 03:56 Pulse 58 L 10/18/22 08:00 Resp 16 10/18/22 08:00 BP 155/52 10/18/22 08:00 Pulse Ox 93 L 10/18/22 08:00 FiO2 Intake & Output 10/17/22 10/18/22 10/18/22 18:59 06:59 18:59 Intake Total 500 10 110 Output Total 225 400 Balance 275 -390 110 Weight 122.4 kg Intake: IV 500 10 Invasive Line 3 10 Oral 110 Output: Urine 225 400 Other: Voiding Method Indwelling Catheter Indwelling Catheter Indwelling Catheter # Bowel Movements 0 - Labs Labs: Abnormal Lab Results - Last 24 Hours (Table) 10/17/22 10/17/22 10/18/22 Range/Units 16:12 19:51 05:46 POC Glucose (mg/dL) 125 H 176 H 215 H (70-110) mg/dL
[2022-10-18] MEDS: POTASSIUM CHLORIDE ER 20 MEQ TAB.ER PO SCH (12:53)
[2022-10-18] MEDS: FUROSEMIDE 10 MG/ML 4 ML VIAL IV SCH (12:53)
[2022-10-18 15:22] LABS: Anisocytosis Slight; HCT 29.2 % (39.0-53.0); Hypochromasia Marked; MCH 27.6 pg (25.0-35.0); MCHC 30.7 g/dL (31.0-37.0); MCV 89.8 fL (80.0-100.0); Platelet Count 224 k/uL (150-450); RBC 3.26 m/uL (4.30-5.90); RDW 16.7 % (11.5-15.5); WBC 10.1 k/uL (3.8-10.6)
[2022-10-18 15:47] LABS: Lymphocytes # (M) 0.81 k/uL (1.0-4.8); Neutrophils # (M) 8.89 k/uL (1.3-7.7); Neutrophils % (M) 88 %; Nucleated Red Blood Cells 0 /100 WBC (0-0); Total Cells Counted 100
[2022-10-18 15:52] LABS: African American GFR (CKD) 48 (>60 ml/min/1.73 sqM); Anion Gap 12 mmol/L; Blood Urea Nitrogen 41 mg/dL (9-20); Calcium 8.2 mg/dL (8.4-10.2); Carbon Dioxide 22 mmol/L (22-30); Chloride 106 mmol/L (98-107); Glucose 170 mg/dL (74-99); Non-African American GFR(CKD) 42 (>60 ml/min/1.73 sqM); Potassium 4.7 mmol/L (3.5-5.1); Sodium 140 mmol/L (137-145)
[2022-10-18 16:25] LABS: Glucose,Whole Blood 195 mg/dL (70-110)
[2022-10-18 20:04] LABS: Glucose,Whole Blood 129 mg/dL (70-110)
[2022-10-18] MEDS ORDERED: SODIUM CHLORIDE 0.65% NASAL SPRAY 44 ML BTL NASAL PRN (20:33)
[2022-10-18] MEDS: HYDROcodone/APAP 5-325MG 1 EACH TAB PO PRN (20:55)
[2022-10-18] MEDS: ZOLPIDEM 5 MG TAB PO PRN (23:28)
[2022-10-19] MEDS: IPRATROPIUM-ALBUTEROL 3 ML NEB INHALATION SCH ×4 (02:04→20:52)
[2022-10-19] MEDS: SODIUM CHLORIDE 0.9% 1,000 ML in EMPTY BAG 1 BAG IV SCH ×2 (02:18→12:14)
[2022-10-19 06:16] LABS: Glucose,Whole Blood 62 mg/dL (70-110)
[2022-10-19] MEDS: INSULIN ASPART (NovoLOG) 100 UNIT/ML VIAL SQ SCH ×4 (06:18→20:38)
[2022-10-19 06:34] LABS: Glucose,Whole Blood 93 mg/dL (70-110)
[2022-10-19] MEDS: BUDESONIDE 0.5 MG/2 ML NEBU INHALATION SCH ×2 (08:17→20:52)
[2022-10-19] MEDS: FUROSEMIDE 10 MG/ML 4 ML VIAL IV SCH (08:46)
[2022-10-19] MEDS: CHOLECALCIFEROL 25 MCG (1000 IU) TABLET PO SCH (08:47)
[2022-10-19] MEDS: POTASSIUM CHLORIDE ER 20 MEQ TAB.ER PO SCH (08:47)
[2022-10-19] MEDS: carvediloL 6.25 MG TAB PO SCH (08:47)
[2022-10-19] MEDS: NIFEdipine XL 90 MG TAB.ER.24 PO SCH (08:47)
[2022-10-19] MEDS: hydrALAZINE HCL 25 MG TAB PO SCH ×3 (08:47→20:38)
[2022-10-19] MEDS: FAMOTIDINE 20 MG TAB PO SCH (08:47)
[2022-10-19] MEDS: ESCITALOPRAM 10 MG TAB PO SCH (08:47)
[2022-10-19] MEDS: TAMSULOSIN 0.4 MG CAP.ER.24H PO SCH (08:47)
[2022-10-19] MEDS: CLOPIDOGREL 75 MG TAB PO SCH (08:47)
[2022-10-19] MEDS: MAGNESIUM OXIDE 400 MG TAB PO SCH (08:47)
[2022-10-19 11:48] LABS: Glucose,Whole Blood 109 mg/dL (70-110)
[2022-10-19] MEDS: APIXABAN 5 MG TAB PO SCH ×2 (12:19→19:57)
[2022-10-19] MEDS: INSULIN DETEMIR (LEVEMIR) 100 UNIT/ML SYR SQ SCH ×2 (12:20→17:15)
--- NOTE | 2022-10-19 12:34 | P.PN ---
Subjective Progress Note Date: 10/19/22 History of present illness: This is a 72-year-old male with past medical history coronary artery disease s tatus post recent PCI to the RCA September 2022, residual critical stenosis in the proximal LAD, acute on chronic preserved EF heart failure, paroxysmal atrial fibrillation, chronic kidney disease stage III A, IVs mellitus type II, hypertension, peripheral artery disease with bilateral yyrxi-[id number] amp utations, COPD, obstructive sleep apnea, morbid obesity. Patient presented to [facility] in early part of September with worsening shortness of breath chest pain at that time was found E and ACS with a non-ST elevated myocardial infarction and underwent cardiac catheterization and eventually had PCI done at [facility] with Dr. Starks. He received 2 stents in the RCA and had a known residual critical stenosis in the proximal LAD. Patient was discharged to [facility] and subsequently returned due to worsening shortness of breath with minimal exertion hypoxia. He was treated for acute systolic heart failure, stabilized and transferred to [facility] subsequently underwent PCI of the RCA. Patient states he is not feeling that well today with some shortness of breath. No chest pain. Echocardiogram September 2022 revealed EF 55 8/6 Patient is seen today in follow-up. He states he is feeling much better and wants to go home today. Patient's nurse noted the patient had heart rate in the 30s during the night. Patient has been on Coreg 6.25 mg twice daily. He is on IV Lasix 40 mg daily. Repeat lab work reveals BUN of 41 creatinine 1.64. Physical examination: Gen: This is a morbidly obese 72-year-old male. VS: reviewed HEENT: Head is atraumatic, normocephalic. Pupils equal, round. Sclerae is anicteric. LUNGS: Diminished. No intercostal retractions. HEART: Regular rate and rhythm. No murmur. ABDOMEN: Soft No tenderness. EXTREMITIES: Bilateral lzgsi-awc-[id number] amputations, no edema to the stumps. No edema to the upper extremities. NEUROLOGICAL: Patient is awake, alert and oriented x3. Assessment: Coronary artery disease status post stent of the LAD Recent stent to the RCA in September Acute on chronic diastolic heart failure Paroxysmal atrial fibrillation Chronic kidney disease stage III A Diabetes mellitus type 2 Hypertension Peripheral artery disease with bilateral wgfxn-faj-dikn amputations COPD Obstructive sleep apnea Morbid obesity Plan: Continue current cardiac medications Transition IV Lasix to oral Resume patient on eliquis Discontinue Coreg due to bradycardia Monitor I&O, daily weights, I's and O's, electrolytes and renal function Further recommendations to follow based upon clinical course Nurse practitioner note has been reviewed, I agree with documented findings and plan of care. Patient was seen and examined. Objective - Vital Signs Vital signs: Vital Signs Temp 98 F 10/19/22 08:00 Pulse 55 L 10/19/22 08:28 Resp 20 10/19/22 08:28 BP 121/77 10/19/22 08:00 Pulse Ox 93 L 10/19/22 08:19 FiO2 Intake & Output 10/18/22 10/19/22 10/19/22 18:59 06:59 18:59 Intake Total 330 Output Total 400 700 Balance -70 -700 Weight 122.4 kg 133 kg Intake: Oral 330 Output: Urine 400 700 Other: Voiding Method Indwelling Catheter Indwelling Catheter - Labs CBC & Chem 7: 10/18/22 14:48 10/18/22 14:48 Labs: Abnormal Lab Results - Last 24 Hours (Table) 10/18/22 10/18/22 10/18/22 Range/Units 11:15 14:48 14:48 RBC 3.26 L (4.30-5.90) m/uL Hgb 9.0 L (13.0-17.5) gm/dL Hct 29.2 L (39.0-53.0) % MCHC 30.7 L (31.0-37.0) g/dL RDW 16.7 H (11.5-15.5) % Neutrophils # (Manual) 8.89 H (1.3-7.7) k/uL Lymphocytes # (Manual) 0.81 L (1.0-4.8) k/uL BUN 41 H (9-20) mg/dL Creatinine 1.64 H (0.66-1.25) mg/dL Glucose 170 H (74-99) mg/dL POC Glucose (mg/dL) 156 H (70-110) mg/dL Calcium 8.2 L (8.4-10.2) mg/dL 10/18/22 10/18/22 10/19/22 Range/Units 16:23 20:03 06:13 RBC (4.30-5.90) m/uL Hgb (13.0-17.5) gm/dL Hct (39.0-53.0) % MCHC (31.0-37.0) g/dL RDW (11.5-15.5) % Neutrophils # (Manual) (1.3-7.7) k/uL Lymphocytes # (Manual) (1.0-4.8) k/uL BUN (9-20) mg/dL Creatinine (0.66-1.25) mg/dL Glucose (74-99) mg/dL POC Glucose (mg/dL) 195 H 129 H 62 L (70-110) mg/dL Calcium (8.4-10.2) mg/dL
[2022-10-19 16:01] LABS: Anisocytosis Slight; Basophils % (A) 0 %; Eosinophils # (A) 0.1 k/uL (0-0.7); Eosinophils % (A) 1 %; HCT 27.8 % (39.0-53.0); HGB 8.8 gm/dL (13.0-17.5); Hypochromasia Marked; Lymphocytes # (A) 0.8 k/uL (1.0-4.8); Lymphocytes % (A) 6 %; MCH 27.6 pg (25.0-35.0); MCHC 31.7 g/dL (31.0-37.0); MCV 86.9 fL (80.0-100.0); Mean Platelet Volume 9.6; Monocytes # (A) 0.7 k/uL (0-1.0); Monocytes % (A) 5 %; Neutrophils # (A) 11.1 k/uL (1.3-7.7); Neutrophils % (A) 86 %; Platelet Count 251 k/uL (150-450); RBC 3.21 m/uL (4.30-5.90); RDW 17.1 % (11.5-15.5)
[2022-10-19 16:17] LABS: African American GFR (CKD) 46 (>60 ml/min/1.73 sqM); Anion Gap 14 mmol/L; Blood Urea Nitrogen 40 mg/dL (9-20); Calcium 8.5 mg/dL (8.4-10.2); Carbon Dioxide 22 mmol/L (22-30); Chloride 102 mmol/L (98-107); Glucose 144 mg/dL (74-99); Non-African American GFR(CKD) 40 (>60 ml/min/1.73 sqM); Potassium 4.6 mmol/L (3.5-5.1); Sodium 138 mmol/L (137-145)
[2022-10-19 16:39] LABS: Glucose,Whole Blood 144 mg/dL (70-110)
--- NOTE | 2022-10-19 17:07 | P.PN ---
Subjective Progress Note Date: 10/18/22 72-year-old male patient with known history of diabetes mellitus controlled with insulin, hypertension, hyperlipidemia and severe 2 vessel coronary artery disease and CHF, recently underwent cardiac catheterization a few weeks ago which showed severe disease involving right coronary artery as well as LAD; patient underwent stenting of right coronary artery at that time and is brought to the hospital today to undergo PCI of LAD - Patient is status post cardiac catheterization with PCI of LAD; denies any complaint of chest pain or shortness of breath at this time Objective - Vital Signs Vital signs: Vital Signs Temp 97.8 F 10/18/22 03:56 Pulse 55 L 10/18/22 12:00 Resp 16 10/18/22 12:00 BP 145/61 10/18/22 12:00 Pulse Ox 90 L 10/18/22 12:00 FiO2 Intake & Output 10/17/22 10/18/22 10/18/22 18:59 06:59 18:59 Intake Total 500 10 110 Output Total 225 400 Balance 275 -390 110 Weight 122.4 kg 122.4 kg Intake: IV 500 10 Invasive Line 3 10 Oral 110 Output: Urine 225 400 Other: Voiding Method Indwelling Catheter Indwelling Catheter Indwelling Catheter # Bowel Movements 0 - Exam - Constitutional General appearance: Present: average body habitus, cooperative, no acute distress - EENT Eyes: Present: anicteric sclerae, EOMI, PERRLA, normal appearance ENT: Present: hearing grossly normal, normal oropharynx Ears: bilateral: normal - Neck Neck: Present: normal ROM. Absent: lymphadenopathy, rigidity, thyromegaly Carotids: negative: bruit present Thyroid: bilateral: normal size, negative: enlarged, nodule - Respiratory Respiratory: bilateral: CTA, negative: rales, rhonchi, wheezing - Cardiovascular Rhythm: regular Heart sounds: normal: S1, S2 Abnormal Heart Sounds: Absent: systolic murmur, diastolic murmur - Gastrointestinal General gastrointestinal: Present: normal bowel sounds, soft. Absent: dist ended, organomegaly, tenderness - Genitourinary Genitourinary Comment(s): deferred - Integumentary Integumentary: Present: normal turgor. Absent: jaundiced, rash, ulcer - Neurologic Neurologic: Present: CNII-XII intact. Absent: focal deficits - Musculoskeletal Musculoskeletal: Present: gait normal, strength equal bilaterally - Psychiatric Psychiatric: Present: A&O x's 3, appropriate affect, intact judgment & insight - Labs CBC & Chem 7: 10/19/22 15:16 10/19/22 15:16 Labs: Abnormal Lab Results - Last 24 Hours (Table) 10/17/22 10/17/22 10/18/22 Range/Units 16:12 19:51 05:46 POC Glucose (mg/dL) 125 H 176 H 215 H (70-110) mg/dL 10/18/22 Range/Units 11:15 POC Glucose (mg/dL) 156 H (70-110) mg/dL Assessment and Plan Assessment: 1. Severe 2 vessel coronary artery disease - Patient was admitted and underwent cardiac catheterization a few weeks ago with right coronary artery stenting - Patient is status post successful stenting of mid LAD using drug-eluting stent with good angiographic results - Patient is recommended to hold antiplatelet therapy with aspirin and Plavix for at least 6 months - Aggressive control of cholesterol is recommended - Risk factor modification 2. Hypertension; patient remains on Coreg 6.25 mg twice a day; nifedipine 90 mg daily; hydralazine 25 mg 3 times a day 3. Hyperlipidemia; Lipitor 80 mg by mouth daily at bedtime 4. Diabetes mellitus2 with long-term insulin use; continue with home dose of Lantus 20 units subcu twice a day; monitor Accu-Cheks before meals and at bedtime with insulin sliding scale 5. COPD; not in exacerbation; patient remains on bronchodilator and steroid nebulizer treatments 5. Depression; Lexapro 10 mg daily 6. Urinary retention; Flomax 0.4 mg daily DVT prophylaxis; SCDs/IV heparin CODE STATUS; full code
--- NOTE | 2022-10-19 17:10 | P.PN ---
Subjective Progress Note Date: 10/19/22 Principal diagnosis: Coronary artery disease, status post stent of LAD 72-year-old male patient with known history of diabetes mellitus controlled with insulin, hypertension, hyperlipidemia and severe 2 vessel coronary artery disease and CHF, recently underwent cardiac catheterization a few weeks ago which showed severe disease involving right coronary artery as well as LAD; patient underwent stenting of right coronary artery at that time and is brought to the hospital today to undergo PCI of LAD - Patient is status post cardiac catheterization with PCI of LAD; denies any complaint of chest pain or shortness of breath at this time 10/19/2022 Patient is seen and evaluated in room at bedside; discussed with nursing staff; patient had pretty significant bradycardia with heart rate dropping down in 30s during the night Vital signs are reviewed and remained stable Review of blood work reveals a BUN of 41 with creatinine of 1.64 - Asymptomatic bradycardia; cardiology is recommending to discontinue Corag given significant bradycardia; patient to be transitioned to oral Lasix; we will resume on anticoagulation -- Davidson catheter will be discontinued today -- Patient to be discharged home in next 24 hours once cleared by cardiology Objective - Vital Signs Vital signs: Vital Signs Temp 98 F 10/19/22 08:00 Pulse 46 L 10/19/22 13:39 Resp 16 10/19/22 12:00 BP 145/57 10/19/22 12:00 Pulse Ox 92 L 10/19/22 12:00 FiO2 Intake & Output 10/18/22 10/19/22 10/19/22 18:59 06:59 18:59 Intake Total 330 Output Total 400 700 300 Balance -70 -700 -300 Weight 122.4 kg 133 kg Intake: Oral 330 Output: Urine 400 700 300 Other: Voiding Method Indwelling Catheter Indwelling Catheter Indwelling Catheter - Exam - Constitutional General appearance: Present: average body habitus, cooperative, no acute distress - EENT Eyes: Present: anicteric sclerae, EOMI, PERRLA, normal appearance ENT: Present: hearing grossly normal, normal oropharynx Ears: bilateral: normal - Neck Neck: Present: normal ROM. Absent: lymphadenopathy, rigidity, thyromegaly Carotids: negative: bruit present Thyroid: bilateral: normal size, negative: enlarged, nodule - Respiratory Respiratory: bilateral: CTA, negative: rales, rhonchi, wheezing - Cardiovascular Rhythm: regular Heart sounds: normal: S1, S2 Abnormal Heart Sounds: Absent: systolic murmur, diastolic murmur - Gastrointestinal General gastrointestinal: Present: normal bowel sounds, soft. Absent: distended, organomegaly, tenderness - Genitourinary Genitourinary Comment(s): deferred - Integumentary Integumentary: Present: normal turgor. Absent: jaundiced, rash, ulcer - Neurologic Neurologic: Present: CNII-XII intact. Absent: focal deficits - Musculoskeletal Musculoskeletal: Present: gait normal, strength equal bilaterally - Psychiatric Psychiatric: Present: A&O x's 3, appropriate affect, intact judgment & insight - Labs CBC & Chem 7: 10/19/22 15:16 10/19/22 15:16 Labs: Abnormal Lab Results - Last 24 Hours (Table) 10/18/22 10/18/22 10/18/22 Range/Units 14:48 14:48 16:23 RBC 3.26 L (4.30-5.90) m/uL Hgb 9.0 L (13.0-17.5) gm/dL Hct 29.2 L (39.0-53.0) % MCHC 30.7 L (31.0-37.0) g/dL RDW 16.7 H (11.5-15.5) % Neutrophils # (Manual) 8.89 H (1.3-7.7) k/uL Lymphocytes # (Manual) 0.81 L (1.0-4.8) k/uL BUN 41 H (9-20) mg/dL Creatinine 1.64 H (0.66-1.25) mg/dL Glucose 170 H (74-99) mg/dL POC Glucose (mg/dL) 195 H (70-110) mg/dL Calcium 8.2 L (8.4-10.2) mg/dL 10/18/22 10/19/22 Range/Units 20:03 06:13 RBC (4.30-5.90) m/uL Hgb (13.0-17.5) gm/dL Hct (39.0-53.0) % MCHC (31.0-37.0) g/dL RDW (11.5-15.5) % Neutrophils # (Manual) (1.3-7.7) k/uL Lymphocytes # (Manual) (1.0-4.8) k/uL BUN (9-20) mg/dL Creatinine (0.66-1.25) mg/dL Glucose (74-99) mg/dL POC Glucose (mg/dL) 129 H 62 L (70-110) mg/dL Calcium (8.4-10.2) mg/dL Assessment and Plan Assessment: 1. Severe 2 vessel coronary artery disease - Patient was admitted and underwent cardiac catheterization a few weeks ago with right coronary artery stenting - Patient is status post successful stenting of mid LAD using drug-eluting stent with good angiographic results - Patient is recommended to hold antiplatelet therapy with aspirin and Plavix for at least 6 months - Aggressive control of cholesterol is recommended - Risk factor modification 2. Hypertension; patient remains on Coreg 6.25 mg twice a day; nifedipine 90 mg daily; hydralazine 25 mg 3 times a day 3. Hyperlipidemia; Lipitor 80 mg by mouth daily at bedtime 4. Diabetes mellitus2 with long-term insulin use; continue with home dose of Lantus 20 units subcu twice a day; monitor Accu-Cheks before meals and at bedtime with insulin sliding scale 5. COPD; not in exacerbation; patient remains on bronchodilator and steroid nebulizer treatments 5. Depression; Lexapro 10 mg daily 6. Urinary retention; Flomax 0.4 mg daily DVT prophylaxis; SCDs/IV heparin CODE STATUS; full code
[2022-10-19] MEDS ORDERED: carvediloL 3.125 MG TAB PO SCH (17:30)
[2022-10-19] MEDS: HYDROcodone/APAP 5-325MG 1 EACH TAB PO PRN (19:57)
[2022-10-19 20:28] LABS: Glucose,Whole Blood 232 mg/dL (70-110)
[2022-10-19] MEDS: ALPRAZolam 0.5 MG TAB PO PRN (20:38)
[2022-10-19] MEDS: ZOLPIDEM 5 MG TAB PO PRN (23:13)
[2022-10-20] MEDS: IPRATROPIUM-ALBUTEROL 3 ML NEB INHALATION SCH ×4 (03:09→20:17)
[2022-10-20] MEDS: SODIUM CHLORIDE 0.9% 1,000 ML in EMPTY BAG 1 BAG IV SCH (06:10)
[2022-10-20 06:25] LABS: Glucose,Whole Blood 64 mg/dL (70-110)
[2022-10-20] MEDS: INSULIN ASPART (NovoLOG) 100 UNIT/ML VIAL SQ SCH ×4 (06:26→21:31)
[2022-10-20] MEDS: INSULIN DETEMIR (LEVEMIR) 100 UNIT/ML SYR SQ SCH ×2 (06:27→16:43)
[2022-10-20 06:41] LABS: Glucose,Whole Blood 79 mg/dL (70-110)
[2022-10-20] MEDS ORDERED: FUROSEMIDE 40 MG TAB PO SCH (09:00)
[2022-10-20] MEDS: BUDESONIDE 0.5 MG/2 ML NEBU INHALATION SCH (09:09)
[2022-10-20] MEDS: ESCITALOPRAM 10 MG TAB PO SCH (09:21)
[2022-10-20] MEDS: TAMSULOSIN 0.4 MG CAP.ER.24H PO SCH (09:21)
[2022-10-20] MEDS: POTASSIUM CHLORIDE ER 20 MEQ TAB.ER PO SCH (09:21)
[2022-10-20] MEDS: NIFEdipine XL 90 MG TAB.ER.24 PO SCH (09:21)
[2022-10-20] MEDS: MAGNESIUM OXIDE 400 MG TAB PO SCH (09:21)
[2022-10-20] MEDS: hydrALAZINE HCL 25 MG TAB PO SCH ×3 (09:21→21:30)
[2022-10-20] MEDS: APIXABAN 5 MG TAB PO SCH ×2 (09:21→21:30)
[2022-10-20] MEDS: FAMOTIDINE 20 MG TAB PO SCH (09:21)
[2022-10-20] MEDS: CHOLECALCIFEROL 25 MCG (1000 IU) TABLET PO SCH (09:21)
[2022-10-20] MEDS: CLOPIDOGREL 75 MG TAB PO SCH (09:21)
--- NOTE | 2022-10-20 10:49 | P.PN ---
Subjective HISTORY OF PRESENT ILLNESS: This is a 72-year-old male with past medical history coronary artery disease status post recent PCI to the RCA September 2022, residual critical stenosis in the proximal LAD, acute on chronic preserved EF heart failure, paroxysmal atrial fibrillation, chronic kidney disease stage III A, IVs mellitus type II, hypertension, peripheral artery disease with bilateral [id number] amputations, COPD, obstructive sleep apnea, morbid obesity. Patient presented to [facility] in early part of September with worsening shortness of breath chest pain at that time was found E and ACS with a non-ST elevated myocardial infarction and underwent cardiac catheterization and eventually had PCI done at [facility] with Dr. Starks. He received 2 stents in the RCA and had a known residual critical stenosis in the proximal LAD. Patient was discharged to [facility] and subsequently returned due to worsening shortness of breath with minimal exertion hypoxia. He was treated for acute systolic heart failure, stabilized and transferred to [facility] subsequently underwent PCI of the RCA. Patient states he is not feeling that well today with some shortness of breath. No chest pain. Echocardiogram September 2022 revealed EF 55 8/6 Patient is seen today in follow-up. He states he is feeling much better and wants to go home today. Patient's nurse noted the patient had heart rate in the 30s during the night. Patient has been on Coreg 6.25 mg twice daily. He is on IV Lasix 40 mg daily. Repeat lab work reveals BUN of 41 creatinine 1.64. 10/20/2022 Patient examined this morning at the bedside. Patient denies chest pain or pressure. He reports minimal shortness of breath this morning and states his breathing is almost back to his baseline. He has been transitioned to oral diu retics. Vital signs are stable. Patient's carvedilol was discontinued yesterday secondary to bradycardia with heart rates in the 30s during the night. Telemetry reveals sinus bradycardia with heart rates in the 50s. Blood pressure stable at 149/70. PHYSICAL EXAM: VITAL SIGNS: Reviewed. GENERAL: Well-developed in no acute distress. NECK: Supple. No JVD or thyromegaly LUNGS: Respirations even and unlabored. Lungs diminished to auscultation bilaterally. HEART: Regular rate and rhythm. S1 and S2 heard. EXTREMITIES: Normal range of motion. No clubbing or cyanosis. Bilateral sincs-wuv-sgzm amputations. ASSESSMENT: Coronary artery disease status post stent of the LAD Recent stent to the RCA in September on chronic diastolic heart failure Paroxysmal atrial fibrillation Chronic kidney disease Diabetes mellitus Hypertension Peripheral artery disease with bilateral zpupz-nau-jjbe amputations COPD Obstructive sleep apnea Morbid obesity PLAN: Continue current cardiac medications Patient's beta dominguez discontinued yesterday secondary to bradycardia Patient has been transitioned to oral Lasix yesterday. Patient is currently stable from a cardiac standpoint Patient to follow-up post discharge with Dr. Starks Nurse practitioner note has been reviewed by physician. Signing provider agrees with the documented findings, assessment, and plan of care. Objective - Vital Signs Vital signs: Vital Signs Temp 97.4 F L 10/20/22 08:50 Pulse 56 L 10/20/22 09:21 Resp 18 10/20/22 08:50 BP 149/70 10/20/22 08:50 Pulse Ox 96 10/20/22 08:50 FiO2 Intake & Output 10/19/22 10/20/22 10/20/22 18:59 06:59 18:59 Intake Total 10 Output Total 550 Balance -550 10 Intake: IV 10 Invasive Line 3 10 Output: Urine 550 Other: Voiding Method Indwelling Catheter Diaper Diaper # Voids 1 - Labs CBC & Chem 7: 10/19/22 15:16 10/19/22 15:16 Labs: Abnormal Lab Results - Last 24 Hours (Table) 10/19/22 10/19/22 10/19/22 Range/Units 15:16 15:16 16:36 WBC 13.0 H (3.8-10.6) k/uL RBC 3.21 L (4.30-5.90) m/uL Hgb 8.8 L (13.0-17.5) gm/dL Hct 27.8 L (39.0-53.0) % RDW 17.1 H (11.5-15.5) % Neutrophils # 11.1 H (1.3-7.7) k/uL Lymphocytes # 0.8 L (1.0-4.8) k/uL BUN 40 H (9-20) mg/dL Creatinine 1.70 H (0.66-1.25) mg/dL Glucose 144 H (74-99) mg/dL POC Glucose (mg/dL) 144 H (70-110) mg/dL 10/19/22 10/20/22 Range/Units 20:26 06:24 WBC (3.8-10.6) k/uL RBC (4.30-5.90) m/uL Hgb (13.0-17.5) gm/dL Hct (39.0-53.0) % RDW (11.5-15.5) % Neutrophils # (1.3-7.7) k/uL Lymphocytes # (1.0-4.8) k/uL BUN (9-20) mg/dL Creatinine (0.66-1.25) mg/dL Glucose (74-99) mg/dL POC Glucose (mg/dL) 232 H 64 L (70-110) mg/dL
[2022-10-20 11:18] LABS: Glucose,Whole Blood 129 mg/dL (70-110)
[2022-10-20] MEDS: DAPAGLIFLOZIN PROPANEDIOL 10 MG TABLET PO SCH (12:07)
[2022-10-20] MEDS: LOSARTAN 25 MG TAB PO SCH (12:07)
--- NOTE | 2022-10-20 13:42 | CDI ---
Documentation Clarification Form Date: 10/20/2022 01:24:45 PM From: Abbey Willis RN CCDS Phone: [phone] Admit Date: 10/17/2022 01:06:00 PM Patient Name: Reid Frost Visit Number: [id number] Discharge Date: ATTENTION: The Clinical Documentation Specialists (CDI) and [facility] Coding Staff appreciate your assistance in clarifying documentation. Please respond to the clarification below the line at the bottom and electronically sign. The CDI & [facility] Coding staff will review the response and follow-up if needed. Please note: Queries are made part of the Legal Health Record. If you have any questions, please contact the author of this message via ITS. Dr. Jackie Lee MD Stage 1 pressure ulcer buttocks and Stage 2 posterior ear pressure ulcer stage 2 are documented in Pressure injury assessment by Nursing, 10/17. Based on this information and the findings below, is there an additional diagnosis that is clinically appropriate for this patient? History/Risk Factors: 72-year-old male presents for elective PCI. Medical History: DM2, CHF, CAD, CKD3a, COPD, Morbid Obesity and Paroxysmal atrial fibrillation. 10/17, H&P. Clinical Indicators: Location: Stage 1 pressure ulcer buttocks Wound description: Temperature - Warm, Moisture - Dry, Skin color Erythema and Turgor - rebounds quickly Treatment: Turn every 2 hours; Check absorbant under pad hourly. Zinc paste. Is there an additional diagnosis that is clinically appropriate for this patient? [ x] Buttocks Pressure Ulcer Stage 1 [ ] Other condition, please specify [ ] Unable to determine And Clinical Indicators: Location: Bilateral posterior ears Wound description: Stage 2 pressure injury to bilateral ears from oxygen tubing. Treatment: Gauze/Sponge petroleum ointment applied behind ears with gauze pad Is there an additional diagnosis that is clinically appropriate for this patient? [ ] Bilateral posterior ears Pressure Injury Stage 2 [ ] Other condition, please specify [ ] Unable to determine Clinical Definitions: Stage 1 Pressure Ulcer: intact skin, non-blanching redness of local area Stage 2 Pressure Ulcer: Partial thickness, loss of dermis, pink wound bed Stage 3 Pressure Ulcer: Full thickness tissue loss Stage 4 Pressure Ulcer: Full thickness tissue loss with exposed bone, tendon, or muscle. Unstageable pressure ulcer: Full thickness tissue loss in which the base of the ulcer is covered by slough (yellow, kumar, mireles, green or brown) and/or eschar (kumar, brown or black) in the wound bed. (Template Last Revised: May 2020) MTDD
--- NOTE | 2022-10-20 13:56 | CDI ---
Documentation Clarification Form Date: 10/20/2022 01:41:03 PM From: Abbey Willis RN CCDS Phone: [phone] Admit Date: 10/17/2022 01:06:00 PM Patient Name: Reid Frost Visit Number: [id number] Discharge Date: ATTENTION: The Clinical Documentation Specialists (CDI) and [facility] Coding Staff appreciate your assistance in clarifying documentation. Please respond to the clarification below the line at the bottom and electronically sign. The CDI & [facility] Coding staff will review the response and follow-up if needed. Please note: Queries are made part of the Legal Health Record. If you have any questions, please contact the author of this message via ITS. Dr. Tree Lee Your patient has [insert documentation of symptoms or findings, with date, location]. Based on this information and the findings below, is there an additional diagnosis that is clinically appropriate for this patient? History/Risk Factors: 72-year-old male presents for elective PCI. Medical History: DM2, CHF, CAD, CKD3a, COPD, Morbid Obesity and Paroxysmal atrial fibrillation. 10/17, H&P. Tobacco use: Current every day smoker Clinical Indicators: Vital signs, 10/17 10:38: Sitting B/P 155/67; HR 52; Temp 98.8 F Oral; RR 22 Short of breath, SpO2 93% nasal cannula 4L Vital signs, 10/18 20:00 B/P 153/48; HR 43; Temp 98.3 F Oral; SpO2 92% 6L nasal cannula Lung/Breathing assessment, 10/18 Cardiology note: Diminished. Lung/Breathing assessment, 10/20 Cardiology note: Respirations even and unlabored. Lungs diminished to auscultation bilaterally. Treatment: Breathing tx:J Duoneb Inhalation Q6H SINDHU; Pulmicort Inhalation BID SINDHU; O2 4L and 6L nasal cannula Is there an additional diagnosis that is clinically appropriate for this patient? [ ] Acute Hypoxic Respiratory Failure (pO2 <60 mm Hg or SpO2 <91% on room air) [ x ] Acute on Chronic Respiratory Failure [ ] Other Diagnosis, please specify [ ] Unable to determine (Template Last Revised: May 2020) MTDD
--- NOTE | 2022-10-20 14:04 | P.DS ---
Providers Date of admission: 10/17/22 13:06 Expected date of discharge: 10/20/22 Attending physician: Alva Sepulveda Consults: 10/17/22 13:40 Consult Physician Routine Consulting Provider: Cem Morgan Consult Reason/Comments: Post Interventional patient Do you want consulting provider notified?: Already Contacted 10/17/22 13:41 Consult Physician Routine Consulting Provider: [facility] Consult Reason/Comments: Post Interventional Patient Do you want consulting provider notified?: Already Contacted 10/17/22 14:51 Consult Physician Routine Consulting Provider: Ryan Starks Consult Reason/Comments: nstemi Do you want consulting provider notified?: Yes Primary care physician: [facility] Course: Discharge diagnoses; 1. Severe 2 vessel coronary artery disease - Patient was admitted and underwent cardiac catheterization a few weeks ago with right coronary artery stenting - Patient is status post successful stenting of mid LAD using drug-eluting stent with good angiographic results on 10/17 - Patient is recommended to continue antiplatelet therapy with aspirin and Plavix for at least 6 months. Since patient also on Eliquis, aspirin discontinued by cardiology - Aggressive control of cholesterol is recommended - Risk factor modification 2. Hypertension; Coreg discontinued secondary to bradycardia; nifedipine 90 mg daily; hydralazine 25 mg 3 times a day 3. Hyperlipidemia; Lipitor 80 mg by mouth daily at bedtime 4. Diabetes mellitus2 with long-term insulin use; continue with home dose of Lantus 20 units subcu twice a day; monitor Accu-Cheks before meals and at bedtime with insulin sliding scale 5. COPD; not in exacerbation; patient remains on bronchodilator and steroid nebulizer treatments 5. Depression; Lexapro 10 mg daily 6. Urinary retention; Flomax 0.4 mg daily Hospital course; 72-year-old male patient with known history of diabetes mellitus controlled with insulin, hypertension, hyperlipidemia and severe 2 vessel coronary artery disease and CHF, recently underwent cardiac catheterization a few weeks ago which showed severe disease involving right coronary artery as well as LAD; patient underwent stenting of right coronary artery at that time and is brought to the hospital today to undergo PCI of LAD - Patient is status post cardiac catheterization with PCI of LAD; denies any complaint of chest pain or shortness of breath at this time 10/19/2022 Patient is seen and evaluated in room at bedside; discussed with nursing staff; patient had pretty significant bradycardia with heart rate dropping down in 30s during the night Vital signs are reviewed and remained stable Review of blood work reveals a BUN of 41 with creatinine of 1.64 - Asymptomatic bradycardia; cardiology is recommending to discontinue Corag given significant bradycardia; patient to be transitioned to oral Lasix; we will resume on anticoagulation -- Davidson catheter will be discontinued today -- Patient to be discharged home in next 24 hours once cleared by cardiology 10/20. Patient seen and examined. Bradycardia improved. Discussed with cardiology, they recommended discharging patient on Plavix and Eliquis PHYSICAL EXAMINATION: GENERAL: The patient is alert and oriented x3, not in any acute distress. Well developed, well nourished. HEENT: Pupils are round and equally reacting to light. EOMI. No scleral icterus. No conjunctival pallor. Normocephalic, atraumatic. No pharyngeal erythema. No thyromegaly. CARDIOVASCULAR: S1 and S2 present. No murmurs, rubs, or gallops. PULMONARY: Chest is clear to auscultation, no wheezing or crackles. ABDOMEN: Soft, nontender, nondistended, normoactive bowel sounds. No palpable organomegaly. MUSCULOSKELETAL: No joint swelling or deformity. EXTREMITIES: Bilateral AKA noted NEUROLOGICAL: Gross neurological examination did not reveal any focal deficits. SKIN: No rashes. Dictation was produced using [employer] dictation software. please excuse any grammatical, word or spelling errors. Patient Condition at Discharge: Good Plan - Discharge Summary Discharge Rx Participant: No New Discharge Prescriptions: New RX: Losartan [Cozaar] 25 mg PO DAILY #30 tab RX: Dapagliflozin Propanediol [Farxiga] 10 mg PO DAILY #30 tab RX: Furosemide [Lasix] 40 mg PO DAILY #30 tab Continue RX: traZODone HCL 50 mg PO HS RX: Escitalopram Oxalate [Lexapro] 10 mg PO DAILY RX: Multivitamins, Thera [Multivitamin (formulary)] 1 tab PO DAILY RX: Magnesium Oxide [Mag-Ox] 400 mg PO DAILY RX: INSULIN LISPRO (HumaLOG) [humaLOG] 1 - 11 units SQ ACHS RX: Insulin Glargine [Lantus Vial] 20 unit SQ BID-W/MEALS RX: Cholecalciferol [Vitamin D3 (25 Mcg = 1000 Iu)] 25 mcg PO DAILY RX: Budesonide [Pulmicort] 0.5 mg INHALATION RT-BID RX: Atorvastatin [Lipitor] 80 mg PO DAILY RX: Apixaban [Eliquis] 5 mg PO BID tab RX: NIFEdipine XL [Procardia XL] 90 mg PO DAILY #30 tab RX: Tamsulosin [Flomax] 0.4 mg PO DAILY RX: Sennosides [Senokot] 8.6 mg PO BID PRN PRN Reason: Constipation RX: Ipratropium-Albuterol Nebulize [Duoneb 0.5 mg-3 mg/3 ml Soln] 3 ml INHALATION RT-Q6H RX: hydrALAZINE HCL [Apresoline] 25 mg PO TID RX: Famotidine [Pepcid] 20 mg PO DAILY RX: Acetaminophen [Tylenol Arthritis] 650 mg PO Q6H PRN PRN Reason: Fever And/ Or Pain RX: Nitroglycerin Sl Tabs [Nitrostat] 0.4 mg SUBLINGUAL Q5M PRN #30 tab PRN Reason: Chest Pain RX: Clopidogrel [Plavix] 75 mg PO DAILY #30 tab RX: HYDROcodone/APAP 5-325MG [[place] 5-325] 1 tab PO Q6HR PRN 3 Days #12 tab PRN Reason: Pain Discontinued RX: Aspirin 81 mg PO DAILY #30 tab RX: carvediloL [Coreg] 6.25 mg PO BID-W/MEALS Discharge Medication List RX: Escitalopram Oxalate [Lexapro] 10 mg PO DAILY 11/09/17 [History] RX: traZODone HCL 50 mg PO HS 11/09/17 [History] RX: Acetaminophen [Tylenol Arthritis] 650 mg PO Q6H PRN 09/29/22 [History] RX: Atorvastatin [Lipitor] 80 mg PO DAILY 09/29/22 [History] RX: Budesonide [Pulmicort] 0.5 mg INHALATION RT-BID 09/29/22 [History] RX: Cholecalciferol [Vitamin D3 (25 Mcg = 1000 Iu)] 25 mcg PO DAILY 09/29/22 [History] RX: Famotidine [Pepcid] 20 mg PO DAILY 09/29/22 [History] RX: INSULIN LISPRO (HumaLOG) [humaLOG] 1 - 11 units SQ ACHS 09/29/22 [History] RX: Insulin Glargine [Lantus Vial] 20 unit SQ BID-W/MEALS 09/29/22 [History] RX: Ipratropium-Albuterol Nebulize [Duoneb 0.5 mg-3 mg/3 ml Soln] 3 ml INHALATION RT-Q6H 09/29/22 [History] RX: Magnesium Oxide [Mag-Ox] 400 mg PO DAILY 09/29/22 [History] RX: Multivitamins, Thera [Multivitamin (formulary)] 1 tab PO DAILY 09/29/22 [History] RX: Sennosides [Senokot] 8.6 mg PO BID PRN 09/29/22 [History] RX: Tamsulosin [Flomax] 0.4 mg PO DAILY 09/29/22 [History] RX: hydrALAZINE HCL [Apresoline] 25 mg PO TID 09/29/22 [History] RX: Apixaban [Eliquis] 5 mg PO BID tab 10/01/22 [Rx] RX: Clopidogrel [Plavix] 75 mg PO DAILY #30 tab 10/01/22 [Rx] RX: HYDROcodone/APAP 5-325MG [[place] 5-325] 1 tab PO Q6HR PRN 3 Days #12 tab 10/01/22 [Rx] RX: NIFEdipine XL [Procardia XL] 90 mg PO DAILY #30 tab 10/01/22 [Rx] RX: Nitroglycerin Sl Tabs [Nitrostat] 0.4 mg SUBLINGUAL Q5M PRN #30 tab 10/01/22 [Rx] RX: Dapagliflozin Propanediol [Farxiga] 10 mg PO DAILY #30 tab 10/20/22 [Rx] RX: Furosemide [Lasix] 40 mg PO DAILY #30 tab 10/20/22 [Rx] RX: Losartan [Cozaar] 25 mg PO DAILY #30 tab 10/20/22 [Rx] Follow up Appointment(s)/Referral(s): Ryan Starks MD [STAFF PHYSICIAN] - 1 Week Tiffany Graham [Primary Care Provider] - 1 Week [facility] Visiting Nurse, [NON-STAFF] - Discharge Disposition: HOME WITH HOME HEALTH SERVICES
[2022-10-20 14:12] VITALS: BMI 57.2
--- NOTE | 2022-10-20 14:26 | P.PN ---
Subjective Progress Note Date: 10/20/22 72-year-old male patient with known history of diabetes mellitus controlled with insulin, hypertension, hyperlipidemia and severe 2 vessel coronary artery disease and CHF, recently underwent cardiac catheterization a few weeks ago which showed severe disease involving right coronary artery as well as LAD; patient underwent stenting of right coronary artery at that time and is brought to the hospital today to undergo PCI of LAD - Patient is status post cardiac catheterization with PCI of LAD; denies any complaint of chest pain or shortness of breath at this time 10/19/2022 Patient is seen and evaluated in room at bedside; discussed with nursing staff; patient had pretty significant bradycardia with heart rate dropping down in 30s during the night Vital signs are reviewed and remained stable Review of blood work reveals a BUN of 41 with creatinine of 1.64 - Asymptomatic bradycardia; cardiology is recommending to discontinue Corag given significant bradycardia; patient to be transitioned to oral Lasix; we will resume on anticoagulation -- Davidson catheter will be discontinued today -- Patient to be discharged home in next 24 hours once cleared by cardiology 10/20. Patient seen and examined. Bradycardia improved. Discussed with cardiology, they recommended discharging patient on Plavix and Eliquis. Patient was supposed to be discharged but he desaturated, oxygen requirement increased to 6 L. Patient was tachypneic. REVIEW OF SYSTEMS: CONSTITUTIONAL: No fever, no malaise,. CARDIOVASCULAR: No chest pain, no palpitations, no syncope. PULMONARY: No shortness of breath, no cough, GASTROINTESTINAL: No diarrhea, no nausea, no vomiting, no abdominal pain. NEUROLOGICAL: No headaches, no weakness, PHYSICAL EXAMINATION: GENERAL: The patient is alert and oriented x3, not in any acute distress. Well developed, well nourished. HEENT: Pupils are round and equally reacting to light. EOMI. No scleral icterus. No conjunctival pallor. Normocephalic, atraumatic. No pharyngeal erythema. No thyromegaly. CARDIOVASCULAR: S1 and S2 present. No murmurs, rubs, or gallops. PULMONARY: Coarse breath some bilaterally, no wheeze audible ABDOMEN: Soft, nontender, nondistended, normoactive bowel sounds. No palpable organomegaly. MUSCULOSKELETAL: No joint swelling or deformity. EXTREMITIES: Bilateral AKA noted NEUROLOGICAL: Gross neurological examination did not reveal any focal deficits. SKIN: No rashes. Assessment and plan Acute on chronic hypoxic respiratory failure Order stat chest x-ray order proBNP Monitor troponins Continue breathing treatments Consult pulmonary Severe 2 vessel coronary artery disease - Patient was admitted and underwent cardiac catheterization a few weeks ago with right coronary artery stenting - Patient is status post successful stenting of mid LAD using drug-eluting stent with good angiographic results on 10/17 - Patient is recommended to continue antiplatelet therapy with aspirin and Plavix for at least 6 months. Since patient also on Eliquis, aspirin discontinued by cardiology - Aggressive control of cholesterol is recommended - Risk factor modification 2. Hypertension; Coreg discontinued secondary to bradycardia; nifedipine 90 mg daily; hydralazine 25 mg 3 times a day 3. Hyperlipidemia; Lipitor 80 mg by mouth daily at bedtime 4. Diabetes mellitus2 with long-term insulin use; continue with home dose of Lantus 20 units subcu twice a day; monitor Accu-Cheks before meals and at bedtime with insulin sliding scale 5. COPD; not in exacerbation; patient remains on bronchodilator and steroid nebulizer treatments 5. Depression; Lexapro 10 mg daily 6. Urinary retention; Flomax 0.4 mg daily Labs and medication were reviewed.. Continue same treatment. Continue with symptomatic treatment. Resume home medication. Monitor labs and vitals. DVT and GI prophylaxis. Further recommendations as per clinical course of the patient Dictation was produced using [employer] dictation software. please excuse any grammatical, word or spelling errors. Objective - Vital Signs Vital signs: Vital Signs Temp 97.3 F L 10/20/22 12:46 Pulse 68 10/20/22 12:46 Resp 18 10/20/22 12:46 BP 154/69 10/20/22 12:46 Pulse Ox 94 L 10/20/22 12:46 FiO2 Intake & Output 10/19/22 10/20/22 10/20/22 18:59 06:59 18:59 Intake Total 10 118 Output Total 550 Balance -550 10 118 Weight 133 kg Intake: IV 10 Invasive Line 3 10 Oral 118 Output: Urine 550 Other: Voiding Method Indwelling Catheter Diaper Diaper # Voids 1 - Labs CBC & Chem 7: 10/19/22 15:16 10/19/22 15:16 Labs: Abnormal Lab Results - Last 24 Hours (Table) 10/19/22 10/19/22 10/19/22 Range/Units 15:16 15:16 16:36 WBC 13.0 H (3.8-10.6) k/uL RBC 3.21 L (4.30-5.90) m/uL Hgb 8.8 L (13.0-17.5) gm/dL Hct 27.8 L (39.0-53.0) % RDW 17.1 H (11.5-15.5) % Neutrophils # 11.1 H (1.3-7.7) k/uL Lymphocytes # 0.8 L (1.0-4.8) k/uL BUN 40 H (9-20) mg/dL Creatinine 1.70 H (0.66-1.25) mg/dL Glucose 144 H (74-99) mg/dL POC Glucose (mg/dL) 144 H (70-110) mg/dL 10/19/22 10/20/22 10/20/22 Range/Units 20:26 06:24 11:16 WBC (3.8-10.6) k/uL RBC (4.30-5.90) m/uL Hgb (13.0-17.5) gm/dL Hct (39.0-53.0) % RDW (11.5-15.5) % Neutrophils # (1.3-7.7) k/uL Lymphocytes # (1.0-4.8) k/uL BUN (9-20) mg/dL Creatinine (0.66-1.25) mg/dL Glucose (74-99) mg/dL POC Glucose (mg/dL) 232 H 64 L 129 H (70-110) mg/dL
[2022-10-20] MEDS: ALPRAZolam 0.5 MG TAB PO PRN (14:41)
[2022-10-20] MEDS: FUROSEMIDE 10 MG/ML 4 ML VIAL IV SCH ×2 (16:01→21:31)
[2022-10-20] MEDS ORDERED: IPRATROPIUM-ALBUTEROL 3 ML NEB INHALATION PRN (16:08)
--- NOTE | 2022-10-20 16:19 | P.CNPUL ---
History of Present Illness Consult date: 10/20/22 Requesting physician: Tree Lee Reason for consult: dyspnea, hypoxemia, abnormal CXR/CT Chief complaint: Shortness of breath History of present illness: This is a 72-year-old male patient with a known history of diabetes mellitus, hypertension, hyperlipidemia, bilateral [id number] amputation, anxiety/depression, chronic and ongoing tobacco dependence and coronary artery disease with previous stent placement to the RCA. He was brought in electively on 10/17/2022 for stenting to the LAD. He was being. To go home today however he developed increasing shortness of breath and increased oxygen requirements. Chest x-ray showed evidence of bilateral pleural effusions and fluid volume ove rload. ProBNP 5020. Troponin 0.030. Blood sugar 129. White count 13.0. Hemoglobin 8.8. Platelets 251. Sodium 138. Potassium 4.6. Bicarb 22. BUN 40. Creatinine 1.70. He is seen today in consultation on the selective care unit. He is currently sitting up in bed. Receiving a breathing treatment. Awake and alert. Dyspneic with minimal exertion. Dyspneic with conversation. Review of Systems REVIEW OF SYSTEMS: CONSTITUTIONAL: Denies any recent significant weight loss or weight gain. EYES: Denies change in vision. EARS, NOSE, MOUTH, THROAT: Denies headaches, denies sore throat. CARDIOVASCULAR: Denies chest pain, palpitations or syncopal episodes. RESPIRATORY: Positive for shortness of breath, cough, congestion no hemoptysis. GASTROINTESTINAL: Denies change in appetite, denies abdominal pain GENITOURINARY: Denies hematuria, denies infections. MUSKULOSKELETAL: Denies pain, denies swelling. INTEGUMENTARY: Denies rash, denies eczema. NEUROLOGICAL: Denies recent memory loss, no recent seizure activity. PSYCHIATRIC: Denies anxiety, denies depression. HEMATOLOGIC/LYMPHATIC: Denies anemia, denies enlarged lymph nodes. Past Medical History Past Medical History: Diabetes Mellitus, Eye Disorder, GERD/Reflux, Hyp erlipidemia, Hypertension, Osteoarthritis (OA), Renal Disease Additional Past Medical History / Comment(s): HX of Chronic venous stasis wounds, IDDM type II, cataracts , arthritis in hands, neuropathy, AKA B/L History of Any Multi-Drug Resistant Organisms: MRSA Date of last positivie culture/infection: 01/16/20 MDRO Source:: Left LEG Past Surgical History: Heart Catheterization Additional Past Surgical History / Comment(s): bilateral great toes amputated, 2nd toe lt foot partial amputation, multiple debridements of venous ulcers, colonoscopy, surgery as a child for undescended testicle., ABOVE THE KNEE AMPUTATION RIGHT LEG (JUNE 2017-[facility]) Past Anesthesia/Blood Transfusion Reactions: No Reported Reaction Date of Last Stent Placement:: 10/17/2022 Past Psychological History: Anxiety, Depression Additional Psychological History / Comment(s): . Smoking Status: Current every day smoker Past Alcohol Use History: Occasional Additional Past Alcohol Use History / Comment(s): no alcohol currently Past Drug Use History: None Reported - Past Family History Father Family Medical History: Cancer Additional Family Medical History / Comment(s): Father from brain cancer Mother Family Medical History: Eye Disorder Additional Family Medical History / Comment(s): Glaucoma. Mother is . Medications and Allergies Home Medications Medication Instructions Recorded Confirmed Type Escitalopram Oxalate [Lexapro] 10 mg PO DAILY 11/09/17 10/17/22 History traZODone HCL 50 mg PO HS 11/09/17 10/17/22 History Acetaminophen [Tylenol Arthritis] 650 mg PO Q6H PRN 09/29/22 10/17/22 History Atorvastatin [Lipitor] 80 mg PO DAILY 09/29/22 10/17/22 History Budesonide [Pulmicort] 0.5 mg INHALATION RT-BID 09/29/22 10/17/22 History Cholecalciferol [Vitamin D3 (25 25 mcg PO DAILY 09/29/22 10/17/22 History Mcg = 1000 Iu)] Famotidine [Pepcid] 20 mg PO DAILY 09/29/22 10/17/22 History INSULIN LISPRO (HumaLOG) [humaLOG] 1 - 11 units SQ ACHS 09/29/22 10/17/22 History Insulin Glargine [Lantus Vial] 20 unit SQ BID-W/MEALS 09/29/22 10/17/22 History Ipratropium-Albuterol Nebulize 3 ml INHALATION RT-Q6H 09/29/22 10/17/22 History [Duoneb 0.5 mg-3 mg/3 ml Soln] Magnesium Oxide [Mag-Ox] 400 mg PO DAILY 09/29/22 10/17/22 History Multivitamins, Thera [Multivitamin 1 tab PO DAILY 09/29/22 10/17/22 History (formulary)] Sennosides [Senokot] 8.6 mg PO BID PRN 09/29/22 10/17/22 History Tamsulosin [Flomax] 0.4 mg PO DAILY 09/29/22 10/17/22 History hydrALAZINE HCL [Apresoline] 25 mg PO TID 09/29/22 10/17/22 History Apixaban [Eliquis] 5 mg PO BID tab 10/01/22 10/17/22 Rx Clopidogrel [Plavix] 75 mg PO DAILY #30 tab 10/01/22 10/17/22 Rx HYDROcodone/APAP 5-325MG [[place] 1 tab PO Q6HR PRN 3 Days #12 tab 10/01/22 0 10/17/22 Rx 5-325] NIFEdipine XL [Procardia XL] 90 mg PO DAILY #30 tab 10/01/22 10/17/22 Rx Nitroglycerin Sl Tabs [Nitrostat] 0.4 mg SUBLINGUAL Q5M PRN #30 tab 10/01/22 10/17/22 Rx Dapagliflozin Propanediol [Farxiga] 10 mg PO DAILY #30 tab 10/20/22 Rx Furosemide [Lasix] 40 mg PO DAILY #30 tab 10/20/22 Rx Losartan [Cozaar] 25 mg PO DAILY #30 tab 10/20/22 Rx Allergies Allergy/AdvReac Type Severity Reaction Status Date / Time No Known Allergies Allergy Verified 10/17/22 14:57 Physical Exam Vitals: Vital Signs Temp Pulse Pulse Resp BP Pulse Ox 10/20/22 15:36 64 10/20/22 15:24 68 10/20/22 12:46 97.3 F L 68 18 154/69 94 L 10/20/22 09:21 56 L 10/20/22 09:10 56 L 10/20/22 08:50 97.4 F L 52 L 18 149/70 96 10/20/22 03:54 98.0 F 52 L 18 146/67 96 10/20/22 03:19 59 L 10/20/22 03:09 65 10/20/22 00:00 97.8 F 53 L 18 152/51 93 L 10/19/22 21:03 70 10/19/22 20:52 68 10/19/22 20:00 98.0 F 59 L 18 155/70 91 L Intake and Output 10/20/22 10/20/22 10/20/22 06:59 14:59 22:59 Intake Total 118 Balance 118 Intake: Oral 118 Other: Voiding Method Diaper Diaper # Voids 1 # Bowel Movements 0 Weight 133 kg GENERAL EXAM: Alert, 72-year-old male patient, on 4 L nasal cannula, fairly comfortable in no apparent distress. HEAD: Normocephalic. EYES: Normal reaction of pupils, equal size. NOSE: Clear with pink turbinates. THROAT: No erythema or exudates. NECK: No masses, no JVD. CHEST: No chest wall deformity. LUNGS: Equal air entry with bibasilar crackles, diminished. CVS: S1 and S2 normal with no audible murmur, regular rhythm. ABDOMEN: No hepatosplenomegaly, normal bowel sounds, no guarding or rigidity. SPINE: No scoliosis or deformity SKIN: No rash CENTRAL NERVOUS SYSTEM: No focal deficits, tone is normal in all 4 extremities. EXTREMITIES: Bilateral [id number] amputation. No clubbing, no cyanosis. Peripheral pulses are intact. Results - Laboratory Findings CBC and BMP: 10/19/22 15:16 10/19/22 15:16 Abnormal lab findings: Abnormal Labs 10/17/22 10/17/22 10/18/22 16:12 19:51 05:46 WBC RBC Hgb Hct MCHC RDW Neutrophils # Neutrophils # (Manual) Lymphocytes # Lymphocytes # (Manual) BUN Creatinine Glucose POC Glucose (mg/dL) 125 H 176 H 215 H Calcium 10/18/22 10/18/22 10/18/22 11:15 14:48 14:48 WBC RBC 3.26 L Hgb 9.0 L Hct 29.2 L MCHC 30.7 L RDW 16.7 H Neutrophils # Neutrophils # (Manual) 8.89 H Lymphocytes # Lymphocytes # (Manual) 0.81 L BUN 41 H Creatinine 1.64 H Glucose 170 H POC Glucose (mg/dL) 156 H Calcium 8.2 L 10/18/22 10/18/22 10/19/22 16:23 20:03 06:13 WBC RBC Hgb Hct MCHC RDW Neutrophils # Neutrophils # (Manual) Lymphocytes # Lymphocytes # (Manual) BUN Creatinine Glucose POC Glucose (mg/dL) 195 H 129 H 62 L Calcium 10/19/22 10/19/22 10/19/22 15:16 15:16 16:36 WBC 13.0 H RBC 3.21 L Hgb 8.8 L Hct 27.8 L MCHC RDW 17.1 H Neutrophils # 11.1 H Neutrophils # (Manual) Lymphocytes # 0.8 L Lymphocytes # (Manual) BUN 40 H Creatinine 1.70 H Glucose 144 H POC Glucose (mg/dL) 144 H Calcium 10/19/22 10/20/22 10/20/22 20:26 06:24 11:16 WBC RBC Hgb Hct MCHC RDW Neutrophils # Neutrophils # (Manual) Lymphocytes # Lymphocytes # (Manual) BUN Creatinine Glucose POC Glucose (mg/dL) 232 H 64 L 129 H Calcium - Diagnostic Findings Chest x-ray: image reviewed Assessment and Plan Assessment: Acute hypoxemic respiratory failure secondary to an acute exacerbation of suspected systolic versus diastolic congestive heart failure Coronary artery disease with stent placement to the LAD on 10/17/2022 Recent stent placement to the RCA in September 2022 Severe peripheral vascular disease status post bilateral [id number] amputee Chronic and ongoing tobacco dependence Chronic obstructive pulmonary disease Diabetes mellitus Hypertension Hyperlipidemia Obesity History of atrial fibrillation, anticoagulated with Eliquis Plan: The patient was seen and evaluated Chest x-ray, labs and medications reviewed Obtain a proBNP Give Lasix 40 mg IVP every 12 hours Continue bronchodilators Titrate the FiO2 as tolerated Follow-up chest x-ray in a.m. We will continue to follow and make further recommendations based on his clinical status I have personally seen and examined the patient, performed the documentation and the assessment and plan as written. Number of minutes spent on the visit: 20.
[2022-10-20 16:34] LABS: Glucose,Whole Blood 193 mg/dL (70-110)
--- NOTE | 2022-10-20 16:38 | XR ---
EXAMINATION TYPE: XR chest 1V portable DATE OF EXAM: 10/20/2022 3:03 PM COMPARISON: Chest radiographs from 05/03/2013 TECHNIQUE: XR chest 1V portable Frontal view of the chest. CLINICAL INDICATION:Male, 72 years old with history of dyspnea; FINDINGS: Lungs/Pleura: No evidence of focal consolidation or pneumothorax. Blunting of the costophrenic angles is present. Pulmonary vascularity: Pulmonary vascular congestion. Heart/mediastinum: Cardiomediastinal silhouette is enlarged and partially obscured. Musculoskeletal: Degenerative changes of the shoulder joints. IMPRESSION: Cardiomegaly, pulmonary vascular congestion and bilateral pleural effusions. Correlate with BNP for c ongestive heart failure.
[2022-10-20 20:17] LABS: Glucose,Whole Blood 192 mg/dL (70-110)
[2022-10-20] MEDS: FORMOTEROL FUMARATE 20 MCG/2 ML NEBU INHALATION SCH (20:17)
[2022-10-20] MEDS: BUDESONIDE 1 MG/2 ML NEBU INHALATION SCH (21:01)
[2022-10-21] MEDS: HYDROcodone/APAP 5-325MG 1 EACH TAB PO PRN
[2022-10-21 06:20] LABS: Glucose,Whole Blood 126 mg/dL (70-110)
[2022-10-21] MEDS: INSULIN ASPART (NovoLOG) 100 UNIT/ML VIAL SQ SCH ×3 (06:27→17:03)
[2022-10-21] MEDS: INSULIN DETEMIR (LEVEMIR) 100 UNIT/ML SYR SQ SCH ×2 (06:49→17:03)
[2022-10-21] MEDS: BUDESONIDE 1 MG/2 ML NEBU INHALATION SCH (08:17)
[2022-10-21] MEDS: IPRATROPIUM-ALBUTEROL 3 ML NEB INHALATION SCH ×3 (08:17→16:02)
[2022-10-21] MEDS: FORMOTEROL FUMARATE 20 MCG/2 ML NEBU INHALATION SCH (08:17)
--- NOTE | 2022-10-21 08:19 | XR ---
EXAMINATION TYPE: XR chest 1V portable DATE OF EXAM: 10/21/2022 HISTORY: Shortness of breath. COMPARISON: 10/20/2022 TECHNIQUE: Single view of the chest is submitted. FINDINGS: Demonstrated are scattered senescent parenchymal change. Increased basilar density is unchanged which may reflect atelectasis, infiltrate and pleural effusion . The heart is stable. Hilar and mediastinal structures are within normal limits. Degenerative changes are seen of the dorsal spine. IMPRESSION: 1. Stable chest
[2022-10-21] MEDS: FAMOTIDINE 20 MG TAB PO SCH (08:50)
[2022-10-21] MEDS: LOSARTAN 25 MG TAB PO SCH (08:50)
[2022-10-21] MEDS: hydrALAZINE HCL 25 MG TAB PO SCH ×2 (08:50→15:39)
[2022-10-21] MEDS: TAMSULOSIN 0.4 MG CAP.ER.24H PO SCH (08:51)
[2022-10-21] MEDS: CHOLECALCIFEROL 25 MCG (1000 IU) TABLET PO SCH (08:51)
[2022-10-21] MEDS: NIFEdipine XL 90 MG TAB.ER.24 PO SCH (08:51)
[2022-10-21] MEDS: POTASSIUM CHLORIDE ER 20 MEQ TAB.ER PO SCH (08:51)
[2022-10-21] MEDS: FUROSEMIDE 10 MG/ML 4 ML VIAL IV SCH (08:51)
[2022-10-21] MEDS: CLOPIDOGREL 75 MG TAB PO SCH (08:51)
[2022-10-21] MEDS: APIXABAN 5 MG TAB PO SCH (08:51)
[2022-10-21] MEDS: MAGNESIUM OXIDE 400 MG TAB PO SCH (08:51)
[2022-10-21] MEDS: ESCITALOPRAM 10 MG TAB PO SCH (08:51)
[2022-10-21] MEDS: DAPAGLIFLOZIN PROPANEDIOL 10 MG TABLET PO SCH (08:54)
[2022-10-21 08:56] LABS: African American GFR (CKD) 50 (>60 ml/min/1.73 sqM); Anion Gap 9 mmol/L; Blood Urea Nitrogen 37 mg/dL (9-20); Carbon Dioxide 26 mmol/L (22-30); Chloride 102 mmol/L (98-107); Glucose 185 mg/dL (74-99); Non-African American GFR(CKD) 44 (>60 ml/min/1.73 sqM); Potassium 3.9 mmol/L (3.5-5.1); Sodium 137 mmol/L (137-145)
--- NOTE | 2022-10-21 11:21 | P.PN ---
Subjective Progress Note Date: 10/21/22 HISTORY OF PRESENT ILLNESS: This is a 72-year-old male with past medical history coronary artery disease status post recent PCI to the RCA September 2022, residual critical stenosis in the proximal LAD, acute on chronic preserved EF heart failure, paroxysmal atrial fibrillation, chronic kidney disease stage III A, IVs mellitus type II, hypertension, peripheral artery disease with bilateral [id number] amputations, COPD, obstructive sleep apnea, morbid obesity. Patient presented to [facility] in early part of September with worsening shortness of breath chest pain at that time was found E and ACS with a non-ST elevated myocardial infarction and underwent cardiac catheterization and eventually had PCI done at [facility] with Dr. Starks. He received 2 stents in the RCA and had a known residual critical stenosis in the proximal LAD. Patient was discharged to [facility] and subsequently returned due to worsening shortness of breath with minimal exertion hypoxia. He was treated for acute systolic heart failure, stabilized and transferred to [facility] subsequently underwent PCI of the RCA. Patient states he is not feeling that well today with some shortness of breath. No chest pain. Echocardiogram September 2022 revealed EF 55 8/6 Patient is seen today in follow-up. He states he is feeling much better and wants to go home today. Patient's nurse noted the patient had heart rate in the 30s during the night. Patient has been on Coreg 6.25 mg twice daily. He is on IV Lasix 40 mg daily. Repeat lab work reveals BUN of 41 creatinine 1.64. 10/20/2022 Patient examined this morning at the bedside. Patient denies chest pain or pressure. He reports minimal shortness of breath this morning and states his breathing is almost back to his baseline. He has been transitioned to oral diuretics. Vital signs are stable. Patient's carvedilol was discontinued yesterday secondary to bradycardia with heart rates in the 30s during the night. Telemetry reveals sinus bradycardia with heart rates in the 50s. Blood pressure stable at 149/70. 10/21/2022 Patient examined this morning at the bedside. Patient was supposed to be discharged yesterday. However he has not episode of hypoxia yesterday and required his oxygen to be increased to 6 L. His discharge was canceled and pulmonary was consulted. Pulmonary medicine initiated IV Lasix 40 mg every 12 hours. The patient denies any chest pain or pressure this morning. He denies shortness of breath. Creatinine 1.59 today. Vital signs are stable. PHYSICAL EXAM: VITAL SIGNS: Reviewed. GENERAL: Well-developed in no acute distress. NECK: Supple. No JVD or thyromegaly LUNGS: Respirations even and unlabored. Lungs diminished to auscultation bilaterally. HEART: Regular rate and rhythm. S1 and S2 heard. EXTREMITIES: Normal range of motion. No clubbing or cyanosis. Bilateral [id number] amputations. ASSESSMENT: Coronary artery disease status post stent of the LAD Recent stent to the RCA in September Acute on chronic diastolic heart failure Paroxysmal atrial fibrillation Chronic kidney disease Diabetes mellitus Hypertension Peripheral artery disease with bilateral hbcce-gwt-glyl amputations COPD Obstructive sleep apnea Morbid obesity PLAN: Continue current cardiac medications Patient's beta dominguez discontinued yesterday secondary to bradycardia Pulmonary has started patient on IV Lasix. Recommend transition to oral diuretics. Will defer to pulmonary medicine. Patient is currently stable from a cardiac standpoint Patient to follow-up post discharge with Dr. Starks Nurse practitioner note has been reviewed by physician. Signing provider agrees with the documented findings, assessment, and plan of care. Objective - Vital Signs Vital signs: Vital Signs Temp 98.3 F 10/21/22 08:00 Pulse 54 L 10/21/22 08:42 Resp 20 10/21/22 08:00 BP 150/55 10/21/22 08:00 Pulse Ox 97 10/21/22 08:17 FiO2 Intake & Output 10/20/22 10/21/22 10/21/22 18:59 06:59 18:59 Intake Total 236 540 Output Total 350 2300 Balance -114 -2300 540 Weight 133 kg Intake: Oral 236 540 Output: Urine 350 2300 Other: Voiding Method Diaper Diaper Diaper External Catheter External Catheter # Bowel Movements 1 - Labs CBC & Chem 7: 10/19/22 15:16 10/21/22 07:48 Labs: Abnormal Lab Results - Last 24 Hours (Table) 10/20/22 10/20/22 10/21/22 Range/Units 16:22 20:16 06:18 BUN (9-20) mg/dL Creatinine (0.66-1.25) mg/dL Glucose (74-99) mg/dL POC Glucose (mg/dL) 193 H 192 H 126 H (70-110) mg/dL Calcium (8.4-10.2) mg/dL 10/21/22 Range/Units 07:48 BUN 37 H (9-20) mg/dL Creatinine 1.59 H (0.66-1.25) mg/dL Glucose 185 H (74-99) mg/dL POC Glucose (mg/dL) (70-110) mg/dL Calcium 8.0 L (8.4-10.2) mg/dL
[2022-10-21 11:33] LABS: Glucose,Whole Blood 170 mg/dL (70-110)
--- NOTE | 2022-10-21 12:26 | P.PN ---
Subjective Progress Note Date: 10/21/22 Principal diagnosis: Acute on chronic diastolic congestive heart failure This is a 72-year-old male patient with a known history of diabetes mellitus, hypertension, hyperlipidemia, bilateral brvil-dkh-crsl amputation, anxiety/depression, chronic and ongoing tobacco dependence and coronary artery disease with previous stent placement to the RCA. He was brought in electively on 10/17/2022 for stenting to the LAD. He was being. To go home today however he developed increasing shortness of breath and increased oxygen requirements. Chest x-ray showed evidence of bilateral pleural effusions and fluid volume overload. ProBNP 5020. Troponin 0.030. Blood sugar 129. White count 13.0. Hemoglobin 8.8. Platelets 251. Sodium 138. Potassium 4.6. Bicarb 22. BUN 40. Creatinine 1.70. He is seen today in consultation on the selective care unit. He is currently sitting up in bed. Receiving a breathing treatment. Awake and alert. Dyspneic with minimal exertion. Dyspneic with conversation. Patient was reevaluated today on 10/21/2022, patient feels much better today compared to how he felt yesterday. We saw the patient yesterday on consultation, and I felt that the patient was developing worsening congestive heart failure and bilateral pleural effusions, hence I recommended increasing the dose of IV Lasix. Patient is feeling better, chest x-ray however continues to show atelectasis and small bilateral pleural effusions, not much change although clinically the patient feels better. Labs today showed normal electrolytes, BUN is 37 creatinine is slightly higher at 1.59. BNP level yesterday was just over 5000 Objective - Vital Signs Vital signs: Vital Signs Temp 98.3 F 10/21/22 08:00 Pulse 56 L 10/21/22 12:14 Resp 20 10/21/22 08:00 BP 150/55 10/21/22 08:00 Pulse Ox 97 10/21/22 08:17 FiO2 Intake & Output 10/20/22 10/21/22 10/21/22 18:59 06:59 18:59 Intake Total 236 540 Output Total 350 2300 600 Balance -114 -2300 -60 Weight 133 kg Intake: Oral 236 540 Output: Urine 350 2300 600 Other: Voiding Method Diaper Diaper Diaper External Catheter External Catheter # Bowel Movements 1 - Exam Physical Exam: Revealed a 72-year-old white male in no distress, on 6 L nasal cannula HEENT:[Neck is supple.] [No neck masses.] [No thyromegaly.] [No JVD.] Chest: [Diminished breath sound bilaterally no rhonchi and no wheezes Cardiac Exam: [Normal S1 and S2, no S3 gallop, no murmur.] Abdomen: [Soft, nontender, no megaly, no rebound, no guarding, normal bowel sounds.] Extremities: [Bilateral above-knee amputations Neurological Exam: [No focal neurologic deficit.] Alert and oriented 3. Psychiatric: Normal mood affect and normal mental status examination. Skin: No rashes. - Labs CBC & Chem 7: 10/19/22 15:16 10/21/22 07:48 Labs: Abnormal Lab Results - Last 24 Hours (Table) 10/20/22 10/20/22 10/21/22 Range/Units 16:22 20:16 06:18 BUN (9-20) mg/dL Creatinine (0.66-1.25) mg/dL Glucose (74-99) mg/dL POC Glucose (mg/dL) 193 H 192 H 126 H (70-110) mg/dL Calcium (8.4-10.2) mg/dL 10/21/22 10/21/22 Range/Units 07:48 11:31 BUN 37 H (9-20) mg/dL Creatinine 1.59 H (0.66-1.25) mg/dL Glucose 185 H (74-99) mg/dL POC Glucose (mg/dL) 170 H (70-110) mg/dL Calcium 8.0 L (8.4-10.2) mg/dL Assessment and Plan Assessment: Impression: Acute hypoxemic respiratory failure secondary to an acute exacerbation of suspected diastolic congestive heart failure, with bilateral pleural effusions Coronary artery disease with stent placement to the LAD on 10/17/2022Recent stent placement to the RCA in September 2022 Severe peripheral vascular disease status post bilateral ujimp-hvc-yvfn amputee Chronic and ongoing tobacco dependence Chronic obstructive pulmonary disease, presently inactive Diabetes mellitus Hypertension Hyperlipidemia Obesity History of atrial fibrillation, anticoagulated with Eliquis Plan: Continue oxygen and titrate accordingly Continue Lasix 40 mg IV push daily Continue bronchodilators Continue to monitor electrolytes and renal profile We will continue to follow I Time with Patient: Less than 30
[2022-10-21 12:47] VITALS: TEMP 97.2
--- NOTE | 2022-10-21 13:00 | P.DS ---
Providers Date of admission: 10/17/22 13:06 Expected date of discharge: 10/21/22 Attending physician: Alva Sepulveda Consults: 10/17/22 13:40 Consult Physician Routine Consulting Provider: Cem Morgan Consult Reason/Comments: Post Interventional patient Do you want consulting provider notified?: Already Contacted 10/17/22 13:41 Consult Physician Routine Consulting Provider: [facility] Consult Reason/Comments: Post Interventional Patient Do you want consulting provider notified?: Already Contacted 10/17/22 14:51 Consult Physician Routine Consulting Provider: Ryan Starks Consult Reason/Comments: nstemi Do you want consulting provider notified?: Yes 10/20/22 14:25 Consult Physician Routine Consulting Provider: Jesus Ryder Consult Reason/Comments: resp distress Do you want consulting provider notified?: Yes Primary care physician: Tiffany [facility] Course: Discharge diagnoses; Acute on chronic hypoxic respiratory failure 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 Since patient also on Eliquis, aspirin discontinued by cardiology - Aggressive control of cholesterol is recommended - Risk factor modification Hypertension; Coreg discontinued secondary to bradycardia; nifedipine 90 mg daily; hydralazine 25 mg 3 times a day Hyperlipidemia; Lipitor 80 mg by mouth daily at bedtime Diabetes mellitus2 with long-term insulin use; continue with home dose of Lantus 20 units subcu twice a day; monitor Accu-Cheks before meals and at bedtime with insulin sliding scale COPD; not in exacerbation; patient remains on bronchodilator and steroid nebulizer treatments Depression; Lexapro 10 mg daily Urinary retention; Flomax 0.4 mg daily Hospital course; 72-year-old male patient with known history of diabetes mellitus controlled with insulin, hypertension, hyperlipidemia and severe 2 vessel coronary artery disease and CHF, recently underwent cardiac catheterization a few weeks ago which showed severe disease involving right coronary artery as well as LAD; patient underwent stenting of right coronary artery at that time and is brought to the hospital today to undergo PCI of LAD - Patient is status post cardiac catheterization with PCI of LAD; denies any complaint of chest pain or shortness of breath at this time 10/19/2022 Patient is seen and evaluated in room at bedside; discussed with nursing staff; patient had pretty significant bradycardia with heart rate dropping down in 30s during the night Vital signs are reviewed and remained stable Review of blood work reveals a BUN of 41 with creatinine of 1.64 - Asymptomatic bradycardia; cardiology is recommending to discontinue Corag given significant bradycardia; patient to be transitioned to oral Lasix; we will resume on anticoagulation -- Davidson catheter will be discontinued today -- Patient to be discharged home in next 24 hours once cleared by cardiology 10/20. Patient seen and examined. Bradycardia improved. Discussed with cardiology, they recommended discharging patient on Plavix and Eliquis. Patient was supposed to be discharged but he desaturated, oxygen requirement increased to 6 L. Patient was tachypneic. 10/21. Patient seen and examined. Patient received IV diuretics, currently oxygen requirements have improved to his baseline of 4 L. Cardiology and pulmonology cleared the patient for discharge PHYSICAL EXAMINATION: GENERAL: The patient is alert and oriented x3, not in any acute distress. Well developed, well nourished. HEENT: Pupils are round and equally reacting to light. EOMI. No scleral icterus. No conjunctival pallor. Normocephalic, atraumatic. No pharyngeal erythema. No thyromegaly. CARDIOVASCULAR: S1 and S2 present. No murmurs, rubs, or gallops. PULMONARY: Coarse breath some bilaterally, no wheeze audible ABDOMEN: Soft, nontender, nondistended, normoactive bowel sounds. No palpable organomegaly. MUSCULOSKELETAL: No joint swelling or deformity. EXTREMITIES: Bilateral AKA noted NEUROLOGICAL: Gross neurological examination did not reveal any focal deficits. SKIN: No rashes. Dictation was produced using [employer] dictation software. please excuse any grammatical, word or spelling errors. Patient Condition at Discharge: Good Plan - Discharge Summary Discharge Rx Participant: No New Discharge Prescriptions: New Losartan [Cozaar] 25 mg PO DAILY #30 tab Dapagliflozin Propanediol [Farxiga] 10 mg PO DAILY #30 tab Furosemide [Lasix] 40 mg PO DAILY #30 tab Continue traZODone HCL 50 mg PO HS Escitalopram Oxalate [Lexapro] 10 mg PO DAILY Multivitamins, Thera [Multivitamin (formulary)] 1 tab PO DAILY Magnesium Oxide [Mag-Ox] 400 mg PO DAILY INSULIN LISPRO (HumaLOG) [humaLOG] 1 - 11 units SQ ACHS Insulin Glargine [Lantus Vial] 20 unit SQ BID-W/MEALS Cholecalciferol [Vitamin D3 (25 Mcg = 1000 Iu)] 25 mcg PO DAILY Budesonide [Pulmicort] 0.5 mg INHALATION RT-BID Atorvastatin [Lipitor] 80 mg PO DAILY Apixaban [Eliquis] 5 mg PO BID tab NIFEdipine XL [Procardia XL] 90 mg PO DAILY #30 tab Tamsulosin [Flomax] 0.4 mg PO DAILY Sennosides [Senokot] 8.6 mg PO BID PRN PRN Reason: Constipation Ipratropium-Albuterol Nebulize [Duoneb 0.5 mg-3 mg/3 ml Soln] 3 ml INHALATION RT-Q6H hydrALAZINE HCL [Apresoline] 25 mg PO TID Famotidine [Pepcid] 20 mg PO DAILY Acetaminophen [Tylenol Arthritis] 650 mg PO Q6H PRN PRN Reason: Fever And/ Or Pain Nitroglycerin Sl Tabs [Nitrostat] 0.4 mg SUBLINGUAL Q5M PRN #30 tab PRN Reason: Chest Pain Clopidogrel [Plavix] 75 mg PO DAILY #30 tab HYDROcodone/APAP 5-325MG [Sterling 5-325] 1 tab PO Q6HR PRN 3 Days #12 tab PRN Reason: Pain Discontinued Aspirin 81 mg PO DAILY #30 tab carvediloL [Coreg] 6.25 mg PO BID-W/MEALS Discharge Medication List Escitalopram Oxalate [Lexapro] 10 mg PO DAILY 11/09/17 [History] traZODone HCL 50 mg PO HS 11/09/17 [History] Acetaminophen [Tylenol Arthritis] 650 mg PO Q6H PRN 09/29/22 [History] Atorvastatin [Lipitor] 80 mg PO DAILY 09/29/22 [History] Budesonide [Pulmicort] 0.5 mg INHALATION RT-BID 09/29/22 [History] Cholecalciferol [Vitamin D3 (25 Mcg = 1000 Iu)] 25 mcg PO DAILY 09/29/22 [History] Famotidine [Pepcid] 20 mg PO DAILY 09/29/22 [History] INSULIN LISPRO (HumaLOG) [humaLOG] 1 - 11 units SQ ACHS 09/29/22 [History] Insulin Glargine [Lantus Vial] 20 unit SQ BID-W/MEALS 09/29/22 [History] Ipratropium-Albuterol Nebulize [Duoneb 0.5 mg-3 mg/3 ml Soln] 3 ml INHALATION RT-Q6H 09/29/22 [History] Magnesium Oxide [Mag-Ox] 400 mg PO DAILY 09/29/22 [History] Multivitamins, Thera [Multivitamin (formulary)] 1 tab PO DAILY 09/29/22 [History] Sennosides [Senokot] 8.6 mg PO BID PRN 09/29/22 [History] Tamsulosin [Flomax] 0.4 mg PO DAILY 09/29/22 [History] hydrALAZINE HCL [Apresoline] 25 mg PO TID 09/29/22 [History] Apixaban [Eliquis] 5 mg PO BID tab 10/01/22 [Rx] Clopidogrel [Plavix] 75 mg PO DAILY #30 tab 10/01/22 [Rx] HYDROcodone/APAP 5-325MG [Sterling 5-325] 1 tab PO Q6HR PRN 3 Days #12 tab 10/01/22 [Rx] NIFEdipine XL [Procardia XL] 90 mg PO DAILY #30 tab 10/01/22 [Rx] Nitroglycerin Sl Tabs [Nitrostat] 0.4 mg SUBLINGUAL Q5M PRN #30 tab 10/01/22 [Rx] Dapagliflozin Propanediol [Farxiga] 10 mg PO DAILY #30 tab 10/20/22 [Rx] Furosemide [Lasix] 40 mg PO DAILY #30 tab 10/20/22 [Rx] Losartan [Cozaar] 25 mg PO DAILY #30 tab 10/20/22 [Rx] Follow up Appointment(s)/Referral(s): Ryan Starks MD [STAFF PHYSICIAN] - 1 Week T[facility] Graham [Primary Care Provider] - 1 Week [facility] Visiting Nurse, [NON-STAFF] - Discharge Disposition: HOME WITH HOME HEALTH SERVICES
[2022-10-21] MEDS ORDERED: FUROSEMIDE 40 MG TAB PO SCH (16:00)
[2022-10-21 16:38] LABS: Glucose,Whole Blood 162 mg/dL (70-110)
[2022-10-21] MEDS: ALPRAZolam 0.5 MG TAB PO PRN (17:03)
[2022-10-21 18:02] VITALS: BP 140/56; PULSE 94; RESP 19
== END 2022-10-21 19:24 | disposition home health service (06) | DRG 246 ==
LOC: 3SCARD 13:06
PROVIDERS: ADMIT Internal Medicine; ATTEND Internal Medicine
PROC: 027034Z Dilation of Coronary Artery, One Artery with Drug-eluting Intraluminal Device, Percutaneous Approach (ICD-10-PCS; principal; 2022-10-17 12:30)
PROC: B240ZZ3 Ultrasonography of Single Coronary Artery, Intravascular (ICD-10-PCS; 2022-10-17 12:30)
DX: I25.10 Atherosclerotic heart disease of native coronary artery without angina pectoris (principal); I50.43 Acute on chronic combined systolic (congestive) and diastolic (congestive) heart failure; J96.21 Acute and chronic respiratory failure with hypoxia; I13.0 Hypertensive heart and chronic kidney disease with heart failure and stage 1 through stage 4 chronic kidney disease, or unspecified chronic kidney disease; Z68.43 Body mass index [BMI] 50.0-59.9, adult; J98.11 Atelectasis; L89.321 Pressure ulcer of left buttock, stage 1; L89.311 Pressure ulcer of right buttock, stage 1; I48.0 Paroxysmal atrial fibrillation; R00.1 Bradycardia, unspecified; E66.01 Morbid (severe) obesity due to excess calories; E11.51 Type 2 diabetes mellitus with diabetic peripheral angiopathy without gangrene; J44.9 Chronic obstructive pulmonary disease, unspecified; R33.8 Other retention of urine; I87.8 Other specified disorders of veins; M19.90 Unspecified osteoarthritis, unspecified site; I87.2 Venous insufficiency (chronic) (peripheral); M19.041 Primary osteoarthritis, right hand; M19.042 Primary osteoarthritis, left hand; N18.31 Chronic kidney disease, stage 3a; Z79.899 Other long term (current) drug therapy; E11.22 Type 2 diabetes mellitus with diabetic chronic kidney disease; Z79.4 Long term (current) use of insulin; G47.33 Obstructive sleep apnea (adult) (pediatric); Z89.611 Acquired absence of right leg above knee; Z89.612 Acquired absence of left leg above knee; E78.5 Hyperlipidemia, unspecified; F32.A Depression, unspecified; F41.9 Anxiety disorder, unspecified; I25.2 Old myocardial infarction; Z98.41 Cataract extraction status, right eye; Z86.14 Personal history of Methicillin resistant Staphylococcus aureus infection; Z98.42 Cataract extraction status, left eye; Z79.01 Long term (current) use of anticoagulants; Z79.02 Long term (current) use of antithrombotics/antiplatelets; Z79.82 Long term (current) use of aspirin; Z79.84 Long term (current) use of oral hypoglycemic drugs; Z80.8 Family history of malignant neoplasm of other organs or systems
CPT/HCPCS: 71045; 76937; 80048; 83880; 84484; 85025; 94640; 94760

== ENCOUNTER 2022-10-26 01:12 | Inpatient (IN) | payer MEDICARE ==
[2022-10-26] MEDS ORDERED: NITROGLYCERIN OINT 1 INCH/GM PACKET TOPICAL STA (01:40)
--- NOTE | 2022-10-26 01:40 | ED ---
SOB HPI - General Chief Complaint: Shortness of Breath Stated Complaint: SOB Time Seen by Provider: 10/26/22 01:21 Source: patient, EMS Mode of arrival: EMS Limitations: no limitations - History of Present Illness Initial Comments: This patient is 72-year-old man with history of diabetes and congestive heart failure who presents to the hospital by EMS to have evaluation for shortness of breath. He states that the symptoms had come on approximately 30 minutes prior. States that his symptoms are worse if he is supine. Denies chest pain. No fever or chills. No productive cough. He has not had change in urination or bowel movements MD Complaint: shortness of breath Onset/Timin -: minutes(s) Severity scale (1-10): 0 Consistency: constant Improves With: oxygen Worsens With: lying flat Known History Of: COPD, congestive heart failure Associated Symptoms: orthopnea Treatments Prior to Arrival: oxygen - Related Data Home Oxygen Therapy: Yes Home Oxygen Amount: 2 Liters Home Medications Medication Instructions Recorded Confirmed Escitalopram Oxalate [Lexapro] 10 mg PO DAILY 11/09/17 11/04/22 traZODone HCL 50 mg PO HS 11/09/17 11/04/22 Acetaminophen [Tylenol Arthritis] 650 mg PO Q6H PRN 09/29/22 11/04/22 Atorvastatin [Lipitor] 80 mg PO DAILY 09/29/22 11/04/22 Budesonide [Pulmicort] 0.5 mg INHALATION RT-BID 09/29/22 11/04/22 Cholecalciferol [Vitamin D3 (25 25 mcg PO DAILY 09/29/22 11/04/22 Mcg = 1000 Iu)] Famotidine [Pepcid] 20 mg PO DAILY 09/29/22 11/04/22 INSULIN LISPRO (HumaLOG) [humaLOG] 1 - 11 units SQ ACHS 09/29/22 11/04/22 Insulin Glargine [Lantus Vial] 20 unit SQ BID-W/MEALS 09/29/22 11/04/22 Ipratropium-Albuterol Nebulize 3 ml INHALATION RT-Q6H 09/29/22 11/04/22 [Duoneb 0.5 mg-3 mg/3 ml Soln] Magnesium Oxide [Mag-Ox] 400 mg PO DAILY 09/29/22 11/04/22 Multivitamins, Thera [Multivitamin 1 tab PO DAILY 09/29/22 11/04/22 (formulary)] Sennosides [Senokot] 8.6 mg PO BID PRN 09/29/22 11/04/22 Tamsulosin [Flomax] 0.4 mg PO DAILY 09/29/22 11/04/22 Previous Rx's Medication Instructions Recorded Apixaban [Eliquis] 5 mg PO BID tab 10/01/22 Clopidogrel [Plavix] 75 mg PO DAILY #30 tab 10/01/22 HYDROcodone/APAP 5-325MG [[place] 1 tab PO Q6HR PRN 3 Days #12 tab 10/01/22 5-325] NIFEdipine XL [Procardia XL] 90 mg PO DAILY #30 tab 10/01/22 Nitroglycerin Sl Tabs [Nitrostat] 0.4 mg SUBLINGUAL Q5M PRN #30 tab 10/01/22 Dapagliflozin Propanediol [Farxiga] 10 mg PO DAILY #30 tab 10/20/22 Acetaminophen Tab [Tylenol] 650 mg PO Q6HR PRN tab 11/03/22 DAPTOmycin [Cubicin] 500 mg IVPB Q24H 10 Days #10 each 11/03/22 Furosemide [Lasix] 40 mg PO BID@0900,1600 #60 tab 11/03/22 Ipratropium-Albuterol Nebulize 3 ml INHALATION RT-Q2H PRN each 11/03/22 [Duoneb 0.5 mg-3 mg/3 ml Soln] Nystatin 100,000 Unit/gm Powd 1 applic TOPICAL BID 30 Days #1 11/03/22 [Mycostatin Powder] each Allergies Allergy/AdvReac Type Severity Reaction Status Date / Time No Known Allergies Allergy Verified 11/04/22 06:44 Review of Systems ROS Statement: Those systems with pertinent positive or pertinent negative responses have been documented in the HPI. ROS Other: All systems not noted in ROS Statement are negative. Constitutional: Denies: fever, chills Respiratory: Reports: dyspnea. Denies: cough, hemoptysis Cardiovascular: Reports: orthopnea. 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 Date of last positivie culture/infection: 01/16/20 MDRO Source:: Left LEG Past Surgical History: Heart Catheterization Additional Past Surgical History / Comment(s): bilateral great toes amputated, 2nd toe lt foot partial amputation, multiple debridements of venous ulcers, colonoscopy, surgery as a child for undescended testicle., ABOVE THE KNEE AMPUTATION RIGHT LEG (JUNE 2017-[facility]) Past Anesthesia/Blood Transfusion Reactions: No Reported Reaction Date of Last Stent Placement:: 10/17/2022 Past Psychological History: Anxiety, Depression Smoking Status: Current every day smoker Past Alcohol Use History: Occasional Past Drug Use History: None Reported - Past Family History Father Family Medical History: Cancer Additional Family Medical History / Comment(s): Father from brain cancer Mother Family Medical History: Eye Disorder Additional Family Medical History / Comment(s): Glaucoma. Mother is . General Exam Limitations: no limitations General appearance: alert, in no apparent distress Head exam: Present: atraumatic, normocephalic Eye exam: Present: normal appearance. Absent: scleral icterus, conjunctival injection Neck exam: Present: normal inspection Respiratory exam: Present: wheezes, rales. Absent: respiratory distress, rhonchi, stridor, accessory muscle use, decreased breath sounds Cardiovascular Exam: Present: normal rhythm, bradycardia, normal heart sounds. Absent: systolic murmur, diastolic murmur, rubs, gallop GI/Abdominal exam: Present: soft. Absent: distended, tenderness, guarding, rebound, rigid, mass Extremities exam: Present: normal inspection, normal capillary refill, other (There are bilateral above-knee amputations) Back exam: Present: normal inspection Neurological exam: Present: alert Skin exam: Present: warm, dry, intact, normal color. Absent: rash Course Vital Signs 10/26/22 10/26/22 10/26/22 01:14 01:21 01:40 Temperature 97.6 F Pulse Rate 50 L 50 L 50 L Respiratory 18 22 21 Rate Blood Pressure 126/100 126/100 141/86 O2 Sat by Pulse 100 100 93 L Oximetry 10/26/22 10/26/22 10/26/22 01:50 02:10 02:20 Temperature Pulse Rate 50 L 50 L 50 L Respiratory 22 24 26 H Rate Blood Pressure 141/86 135/68 135/68 O2 Sat by Pulse 93 L 93 L 95 Oximetry 10/26/22 10/26/22 10/26/22 03:00 04:00 04:01 Temperature Pulse Rate 43 L 50 L Respiratory 22 22 Rate Blood Pressure 146/57 149/72 O2 Sat by Pulse 93 L 91 L 93 L Oximetry 10/26/22 10/26/22 10/26/22 05:00 06:00 07:00 Temperature Pulse Rate 50 L 42 L 49 L Respiratory 14 14 18 Rate Blood Pressure 146/55 138/65 158/72 O2 Sat by Pulse 93 L 91 L 92 L Oximetry 10/26/22 10/26/22 10/26/22 09:10 09:15 09:20 Temperature 97.5 F L 97.5 F L 97.4 F L Pulse Rate 48 L 38 L 44 L Respiratory 20 20 20 Rate Blood Pressure 150/64 141/71 148/69 O2 Sat by Pulse 94 L 95 Oximetry 10/26/22 10/26/22 10/26/22 09:25 09:40 10:10 Temperature 97.5 F L 97.5 F L 97.4 F L Pulse Rate 51 L 46 L 44 L Respiratory 18 20 20 Rate Blood Pressure 116/92 155/66 152/68 O2 Sat by Pulse 94 L 94 L 94 L Oximetry Medical Decision Making - Medical Decision Making This patient is 72-year-old man presenting to have evaluation for acute onset of dyspnea. The patient found to have exacerbation of his heart failure and also is anemic. Patient be admitted for further evaluation and treatment. Was pt. sent in by a medical professional or institution (, PA, HSE ADVISOR, urgent care, hospital, or longterm...) When possible be specific @ -[No] Did you speak to anyone other than the patient for history (EMS, parent, family, police, friend...)? What history was obtained from this source @ -[No] Did you review nursing and triage notes (agree or disagree)? Why? @ -[I reviewed and agree with nursing and triage notes] Were old charts reviewed (outside hosp., previous admission, EMS record, old EKG, old radiological studies, urgent care reports/EKG's, longterm records)? Report findings @ -[No old charts were reviewed] Differential Diagnosis (chest pain, altered mental status, abdominal pain women, abdominal pain men, vaginal bleeding, weakness, fever, dyspnea, syncope, headache, dizziness, GI bleed, back pain, seizure, CVA, palpatations, mental health, musculoskeletal)? @ -[Differential Dyspnea: Coronary syndrome, arrhythmia, tamponade, asthma, COPD, pulmonary embolism, pneumonia, pneumothorax, pulmonary effusion, anaphylaxis, diabetic ketoacidosis, flailed chest, pulmonary contusion, diaphragmatic rupture, anemia, neuromuscular, this is not meant to be an all-inclusive list. EKG interpreted by me (3pts min.). @ -[As above] X-rays interpreted by me (1pt min.). @ -[As above CT interpreted by me (1pt min.). @ -[None done] U/S interpreted by me (1pt. min.). @ -[None done] What testing was considered but not performed or refused? (CT, X-rays, U/S, labs)? Why? @ -[None] What meds were considered but not given or refused? Why? @ -[None] Did you discuss the management of the patient with other professionals (prof talats i.e. , PA, HSE ADVISOR, lab, RT, psych nurse, social worker assistant, head kiln operator, teacher, morale officer, wrapper caser)? Give summary @ -[The case is discussed with the admitting physician Was smoking cessation discussed for >3mins.? @ -[No] Was critical care preformed (if so, how long)? @ -[No] Were there social determinants of health that impacted care today? How? (Homelessness, low income, unemployed, alcoholism, drug addiction, transportation, low edu. Level, literacy, decrease access to med. care, nursing home, rehab)? @ -[No] Was there de-escalation of care discussed even if they declined (Discuss DNR or withdrawal of care, Hospice)? DNR status @ -[No] What co-morbidities impacted this encounter? (DM, HTN, Smoking, COPD, CAD, Cancer, CVA, ARF, Chemo, Hep., AIDS, mental health diagnosis, sleep apnea, morbid obesity)? @ -[None] Was patient admitted / discharged? Hospital course, mention meds given and route, prescriptions, significant lab abnormalities, going to OR and other pertinent info. @ -[Patient admitted Undiagnosed new problem with uncertain prognosis? @ -[No] Drug Therapy requiring intensive monitoring for toxicity (Heparin, Nitro, Insulin, Cardizem)? @ -[No] Were any procedures done? @ -[No] Diagnosis/symptom? @ -[Acute congestive heart failure Acute anemia Acute, or Chronic, or Acute on Chronic? @ -[Acute Uncomplicated (without systemic symptoms) or Complicated (systemic symptoms)? @ -[Uncomplicated Side effects of treatment? @ -[No] Exacerbation, Progression, or Severe Exacerbation? @ -[No] Poses a threat to life or bodily function? How? (Chest pain, [place], [place], pneumonia, PE, COPD, DKA, ARF, appy, cholecystitis, CVA, Diverticulitis, Homicidal, Suicidal, threat to staff... and all critical care pts) @ -[No] - Lab Data Result diagrams: 11/02/22 09:35 11/03/22 06:06 Lab Results 10/26/22 10/26/22 10/26/22 Range/Units 01:44 01:44 01:44 WBC 9.6 (3.8-10.6) k/uL RBC 2.90 L (4.30-5.90) m/uL Hgb 7.9 L (13.0-17.5) gm/dL Hct 24.5 L (39.0-53.0) % MCV 84.3 (80.0-100.0) fL MCH 27.3 (25.0-35.0) pg MCHC 32.4 (31.0-37.0) g/dL RDW 17.0 H (11.5-15.5) % Plt Count 255 (150-450) k/uL MPV 9.2 Neutrophils % 83 % Lymphocytes % 8 % Monocytes % 6 % Eosinophils % 1 % Basophils % 0 % Neutrophils # 8.0 H (1.3-7.7) k/uL Lymphocytes # 0.7 L (1.0-4.8) k/uL Monocytes # 0.6 (0-1.0) k/uL Eosinophils # 0.1 (0-0.7) k/uL Basophils # 0.0 (0-0.2) k/uL Hypochromasia Marked Anisocytosis Slight PT 13.1 H (9.0-12.0) sec INR 1.3 H (<1.2) APTT 30.1 H (22.0-30.0) sec Sodium 140 (137-145) mmol/L Potassium 4.4 (3.5-5.1) mmol/L Chloride 103 (98-107) mmol/L Carbon Dioxide 28 (22-30) mmol/L Anion Gap 9 mmol/L BUN 49 H (9-20) mg/dL Creatinine 1.82 H (0.66-1.25) mg/dL Est GFR (CKD-EPI)AfAm 43 (>60 ml/min/1.73 sqM) Est GFR (CKD-EPI)NonAf 37 (>60 ml/min/1.73 sqM) Glucose 89 (74-99) mg/dL Estimated Ave Glu mg/dL mg/dL Hemoglobin A1c (<=6.0) % Plasma Lactic Acid Ata (0.7-2.0) mmol/L Calcium 8.6 (8.4-10.2) mg/dL Total Bilirubin 0.7 (0.2-1.3) mg/dL AST 19 (17-59) U/L ALT 20 (4-49) U/L Alkaline Phosphatase 95 (38-126) U/L Troponin I (0.000-0.034) ng/mL NT-Pro-B Natriuret Pep 4630 pg/mL Total Protein 6.6 (6.3-8.2) g/dL Albumin 3.3 L (3.5-5.0) g/dL Stool Occult Blood (Negative) Coronavirus (PCR) (Not Detectd) 10/26/22 10/26/22 10/26/22 Range/Units 01:44 01:44 01:44 WBC (3.8-10.6) k/uL RBC (4.30-5.90) m/uL Hgb (13.0-17.5) gm/dL Hct (39.0-53.0) % MCV (80.0-100.0) fL MCH (25.0-35.0) pg MCHC (31.0-37.0) g/dL RDW (11.5-15.5) % Plt Count (150-450) k/uL MPV Neutrophils % % Lymphocytes % % Monocytes % % Eosinophils % % Basophils % % Neutrophils # (1.3-7.7) k/uL Lymphocytes # (1.0-4.8) k/uL Monocytes # (0-1.0) k/uL Eosinophils # (0-0.7) k/uL Basophils # (0-0.2) k/uL Hypochromasia Anisocytosis PT (9.0-12.0) sec INR (<1.2) APTT (22.0-30.0) sec Sodium (137-145) mmol/L Potassium (3.5-5.1) mmol/L Chloride (98-107) mmol/L Carbon Dioxide (22-30) mmol/L Anion Gap mmol/L BUN (9-20) mg/dL Creatinine (0.66-1.25) mg/dL Est GFR (CKD-EPI)AfAm (>60 ml/min/1.73 sqM) Est GFR (CKD-EPI)NonAf (>60 ml/min/1.73 sqM) Glucose (74-99) mg/dL Estimated Ave Glu mg/dL 186 mg/dL Hemoglobin A1c 8.1 H (<=6.0) % Plasma Lactic Acid Ata 1.9 (0.7-2.0) mmol/L Calcium (8.4-10.2) mg/dL Total Bilirubin (0.2-1.3) mg/dL AST (17-59) U/L ALT (4-49) U/L Alkaline Phosphatase (38-126) U/L Troponin I 0.026 (0.000-0.034) ng/mL NT-Pro-B Natriuret Pep pg/mL Total Protein (6.3-8.2) g/dL Albumin (3.5-5.0) g/dL Stool Occult Blood (Negative) Coronavirus (PCR) (Not Detectd) 10/26/22 10/26/22 Range/Units 01:54 05:25 WBC (3.8-10.6) k/uL RBC (4.30-5.90) m/uL Hgb (13.0-17.5) gm/dL Hct (39.0-53.0) % MCV (80.0-100.0) fL MCH (25.0-35.0) pg MCHC (31.0-37.0) g/dL RDW (11.5-15.5) % Plt Count (150-450) k/uL MPV Neutrophils % % Lymphocytes % % Monocytes % % Eosinophils % % Basophils % % Neutrophils # (1.3-7.7) k/uL Lymphocytes # (1.0-4.8) k/uL Monocytes # (0-1.0) k/uL Eosinophils # (0-0.7) k/uL Basophils # (0-0.2) k/uL Hypochromasia Anisocytosis PT (9.0-12.0) sec INR (<1.2) APTT (22.0-30.0) sec Sodium (137-145) mmol/L Potassium (3.5-5.1) mmol/L Chloride (98-107) mmol/L Carbon Dioxide (22-30) mmol/L Anion Gap mmol/L BUN (9-20) mg/dL Creatinine (0.66-1.25) mg/dL Est GFR (CKD-EPI)AfAm (>60 ml/min/1.73 sqM) Est GFR (CKD-EPI)NonAf (>60 ml/min/1.73 sqM) Glucose (74-99) mg/dL Estimated Ave Glu mg/dL mg/dL Hemoglobin A1c (<=6.0) % Plasma Lactic Acid Ata (0.7-2.0) mmol/L Calcium (8.4-10.2) mg/dL Total Bilirubin (0.2-1.3) mg/dL AST (17-59) U/L ALT (4-49) U/L Alkaline Phosphatase (38-126) U/L Troponin I (0.000-0.034) ng/mL NT-Pro-B Natriuret Pep pg/mL Total Protein (6.3-8.2) g/dL Albumin (3.5-5.0) g/dL Stool Occult Blood Negative (Negative) Coronavirus (PCR) Not Detected (Not Detectd) - EKG Data EKG shows normal: sinus rhythm, intervals (AR interval 171 ms, QTC 452 ms, both normal. QRS duration 126 ms, prolonged consistent with intraventricular conduction delay.), QRS complexes (Intraventricular induction the left) Rate: bradycardia (Rate 50 bpm) Interpretation: nonspecific ST-T wave changes Disposition Clinical Impression: CHF (congestive heart failure), Anemia Disposition: ADMITTED IP TO THIS HOSP Condition: Fair Is patient prescribed a controlled substance at d/c from ED?: No
[2022-10-26 02:00] LABS: Anisocytosis Slight; Basophils % (A) 0 %; Eosinophils # (A) 0.1 k/uL (0-0.7); Eosinophils % (A) 1 %; HCT 24.5 % (39.0-53.0); HGB 7.9 gm/dL (13.0-17.5); Hypochromasia Marked; Lymphocytes # (A) 0.7 k/uL (1.0-4.8); Lymphocytes % (A) 8 %; MCH 27.3 pg (25.0-35.0); MCHC 32.4 g/dL (31.0-37.0); MCV 84.3 fL (80.0-100.0); Mean Platelet Volume 9.2; Monocytes # (A) 0.6 k/uL (0-1.0); Monocytes % (A) 6 %; Neutrophils % (A) 83 %; Platelet Count 255 k/uL (150-450); WBC 9.6 k/uL (3.8-10.6)
[2022-10-26 02:01] LABS: ALT 20 U/L (4-49); AST 19 U/L (17-59); African American GFR (CKD) 43 (>60 ml/min/1.73 sqM); Albumin 3.3 g/dL (3.5-5.0); Alkaline Phosphatase 95 U/L (38-126); Anion Gap 9 mmol/L; Blood Urea Nitrogen 49 mg/dL (9-20); Calcium 8.6 mg/dL (8.4-10.2); Carbon Dioxide 28 mmol/L (22-30); Chloride 103 mmol/L (98-107); Glucose 89 mg/dL (74-99); Non-African American GFR(CKD) 37 (>60 ml/min/1.73 sqM); Potassium 4.4 mmol/L (3.5-5.1); Sodium 140 mmol/L (137-145); Total Bilirubin 0.7 mg/dL (0.2-1.3); Total Protein 6.6 g/dL (6.3-8.2)
[2022-10-26] MEDS ORDERED: FUROSEMIDE 10 MG/ML 4 ML VIAL IV STA (02:08)
[2022-10-26 02:09] LABS: NT-Pro-B-Type Natriuretic Pept 4630 pg/mL
[2022-10-26 02:11] LABS: INR 1.3 (<1.2); Partial Thromboplastin Time 30.1 sec (22.0-30.0); Prothrombin Time 13.1 sec (9.0-12.0)
--- NOTE | 2022-10-26 07:44 | XR ---
EXAMINATION TYPE: XR chest 2V DATE OF EXAM: 10/26/2022 COMPARISON: 10/21/2022 HISTORY: Shortness of breath TECHNIQUE: Frontal and lateral views of the chest are obtained. FINDINGS: Scattered senescent parenchymal changes noted. Hyperinflation compatible with COPD. There is pulmonary venous congestion with effusions and scattered infiltrates. Heart size is stable. Mediastinal structures are stable and grossly unremarkable. No evidence for hilar prominence. Degenerative changes dorsal spine. IMPRESSION: 1. There is pulmonary venous congestion with effusions and scattered infiltrates.
[2022-10-26] MEDS ORDERED: DEXTROSE 50% SYRINGE 50 ML IVP PRN ×2 (09:16)
[2022-10-26] MEDS: HEPARIN SODIUM,PORCINE 5,000 UNIT/ML 1 ML VIAL SQ SCH ×2 (09:22→20:53)
[2022-10-26] MEDS: FUROSEMIDE 10 MG/ML 4 ML VIAL IV SCH ×2 (10:07→20:53)
[2022-10-26 11:25] LABS: Glucose,Whole Blood 101 mg/dL (70-110)
[2022-10-26] MEDS: INSULIN ASPART (NovoLOG) 100 UNIT/ML VIAL SQ SCH ×3 (11:31→21:24)
--- NOTE | 2022-10-26 11:34 | P.CRDCN ---
History of Present Illness Consult date: 10/26/22 Consult reason: congestive heart failure History of present illness: The patient is a 72-year-old male who multiple comorbid conditions, who follows in the office with Dr. Flynn. The patient was brought to the emergency room for increased shortness of breath. The patient had developed an acute onset of orthopnea prior to his presentation. The patient states after his recent stenting, he was in his usual state of health up until yesterday. He states he has had some nosebleeds. DIAGNOSTICS: EKG shows sinus rhythm with IVCD. No new ST or T wave abnormalities Chest x-ray shows pulmonary venous congestion with effusions and scattered inf iltrates Lab data: WBC 9.6, hemoglobin 7.9, hematocrit 24.5, platelet 255, sodium 140, potassium 4.4, BUN 49, creatinine 1.8 to, AST 19, ALT 20, BNP 4630 REVIEW OF SYSTEMS: No fever or chills. No cough or expectoration. No diaphoresis. Patient denies headache, dizziness, blurred vision, double vision. Patient denies any stomach discomfort. No nausea, vomiting. No hematochezia. No hematemesis. Denies any black stools or blood in his stools. Denies dysuria or hematuria.Positive for shortness of breath. Negative for chest pain or chest pressure. Negative for palpitations. PHYSICAL EXAMINATION: This is a 72-year-old obese male in mild respiratory distress. HEENT: Head is atraumatic, normocephalic. Pupils are equal, round. Mucous membranes of the mouth are moist. Neck is supple. There is no jugular venous distention. No carotid bruit is heard. CHEST EXAMINATION: Lungs diminished clear to auscultation. No chest wall tenderness is noted on palpation or with deep breathing. HEART EXAMINATION: Heart regular rate and rhythm. S1, S2 heard. No murmurs, gallops or rub. ABDOMEN: Soft, nontender. Bowel sounds are heard. No organomegaly noted. EXTREMITIES: Bilateral AKA. NEUROLOGIC EXAMINATION: Patient is awake, alert and oriented x3. FINAL ASSESSMENT AND PLAN: Acute on chronic congestive heart failure, unknown EF Anemia, recurrent nosebleed History of coronary artery disease, recent stenting in September and October Chronic kidney disease Bilateral amputee, AKA PLAN: Resume home cardiac medications including clopidogrel as his most recent stent was placed on 10/17/2022 Primary team to address anemia prior to resuming Eliquis Echocardiogram to assess heart structure and function Further recommendations to be based upon clinical course I am dictating on behalf of Dr Navjot Cruz's history/physical and assessment/plan. 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 Date of last positivie culture/infection: 01/16/20 MDRO Source:: Left LEG Past Surgical History: Heart Catheterization Additional Past Surgical History / Comment(s): bilateral great toes amputated, 2nd toe lt foot partial amputation, multiple debridements of venous ulcers, colonoscopy, surgery as a child for undescended testicle., ABOVE THE KNEE AMPUTATION RIGHT LEG (JUNE 2017-[facility]) Past Anesthesia/Blood Transfusion Reactions: No Reported Reaction Date of Last Stent Placement:: 10/17/2022 Past Psychological History: Anxiety, Depression Additional Psychological History / Comment(s): . Smoking Status: Former smoker Past Alcohol Use History: Occasional Additional Past Alcohol Use History / Comment(s): no alcohol currently Past Drug Use History: None Reported - Past Family History Father Family Medical History: Cancer Additional Family Medical History / Comment(s): Father from brain cancer Mother Family Medical History: Eye Disorder Additional Family Medical History / Comment(s): Glaucoma. Mother is . Medications and Allergies Home Medications Medication Instructions Recorded Confirmed Type Escitalopram Oxalate [Lexapro] 10 mg PO DAILY 11/09/17 10/26/22 History traZODone HCL 50 mg PO HS 11/09/17 10/26/22 History Acetaminophen [Tylenol Arthritis] 650 mg PO Q6H PRN 09/29/22 10/26/22 History Atorvastatin [Lipitor] 80 mg PO DAILY 09/29/22 10/26/22 History Budesonide [Pulmicort] 0.5 mg INHALATION RT-BID 09/29/22 10/26/22 History Cholecalciferol [Vitamin D3 (25 25 mcg PO DAILY 09/29/22 10/26/22 History Mcg = 1000 Iu)] Famotidine [Pepcid] 20 mg PO DAILY 09/29/22 10/26/22 History INSULIN LISPRO (HumaLOG) [humaLOG] 1 - 11 units SQ ACHS 09/29/22 10/26/22 History Insulin Glargine [Lantus Vial] 20 unit SQ BID-W/MEALS 09/29/22 10/26/22 History Ipratropium-Albuterol Nebulize 3 ml INHALATION RT-Q6H 09/29/22 10/26/22 History [Duoneb 0.5 mg-3 mg/3 ml Soln] Magnesium Oxide [Mag-Ox] 400 mg PO DAILY 09/29/22 10/26/22 History Multivitamins, Thera [Multivitamin 1 tab PO DAILY 09/29/22 10/26/22 History (formulary)] Sennosides [Senokot] 8.6 mg PO BID PRN 09/29/22 10/26/22 History Tamsulosin [Flomax] 0.4 mg PO DAILY 09/29/22 10/26/22 History hydrALAZINE HCL [Apresoline] 25 mg PO TID 09/29/22 10/26/22 History Apixaban [Eliquis] 5 mg PO BID tab 10/01/22 10/26/22 Rx Clopidogrel [Plavix] 75 mg PO DAILY #30 tab 10/01/22 10/26/22 Rx HYDROcodone/APAP 5-325MG [[place] 1 tab PO Q6HR PRN 3 Days #12 tab 10/01/22 10/26/22 Rx 5-325] NIFEdipine XL [Procardia XL] 90 mg PO DAILY #30 tab 10/01/22 10/26/22 Rx Nitroglycerin Sl Tabs [Nitrostat] 0.4 mg SUBLINGUAL Q5M PRN #30 tab 10/01/22 10/26/22 Rx Dapagliflozin Propanediol [Farxiga] 10 mg PO DAILY #30 tab 10/20/22 10/26/22 Rx Furosemide [Lasix] 40 mg PO DAILY #30 tab 10/20/22 10/26/22 Rx Losartan [Cozaar] 25 mg PO DAILY #30 tab 10/20/22 10/26/22 Rx Allergies Allergy/AdvReac Type Severity Reaction Status Date / Time No Known Allergies Allergy Verified 10/26/22 11:07 Physical Exam Vitals: Vital Signs Temp Pulse Pulse Resp BP BP Pulse Ox 10/26/22 10:43 97.4 F L 51 L 18 169/62 90 L 10/26/22 10:10 97.4 F L 44 L 20 152/68 94 L 10/26/22 09:40 97.5 F L 46 L 20 155/66 94 L 10/26/22 09:25 97.5 F L 51 L 18 116/92 94 L 10/26/22 09:20 97.4 F L 44 L 20 148/69 95 10/26/22 09:15 97.5 F L 38 L 20 141/71 94 L 10/26/22 09:10 97.5 F L 48 L 20 150/64 10/26/22 07:00 49 L 18 158/72 92 L 10/26/22 06:00 42 L 14 138/65 91 L 10/26/22 05:00 50 L 14 146/55 93 L 10/26/22 04:01 93 L 10/26/22 04:00 50 L 22 149/72 91 L 10/26/22 03:00 43 L 22 146/57 93 L 10/26/22 02:20 50 L 26 H 135/68 95 10/26/22 02:10 50 L 24 135/68 93 L 10/26/22 01:50 50 L 22 141/86 93 L 10/26/22 01:40 50 L 21 141/86 93 L 10/26/22 01:21 50 L 22 126/100 100 10/26/22 01:14 97.6 F 50 L 18 126/100 100 Intake and Output 10/25/22 10/26/22 10/26/22 22:59 06:59 14:59 Intake Total 0 Output Total 950 900 Balance -950 -900 Intake: Blood Product 0 Unit 0 Output: Urine 950 900 Other: Weight 122.47 kg 121.5 kg Results 10/26/22 01:44 10/26/22 01:44 Cardiac Enzymes 10/26/22 10/26/22 Range/Units 01:44 01:44 AST 19 (17-59) U/L Troponin I 0.026 (0.000-0.034) ng/mL Coagulation 10/26/22 Range/Units 01:44 PT 13.1 H (9.0-12.0) sec APTT 30.1 H (22.0-30.0) sec CBC 10/26/22 Range/Units 01:44 WBC 9.6 (3.8-10.6) k/uL RBC 2.90 L (4.30-5.90) m/uL Hgb 7.9 L (13.0-17.5) gm/dL Hct 24.5 L (39.0-53.0) % Plt Count 255 (150-450) k/uL Comprehensive Metabolic Panel 10/26/22 Range/Units 01:44 Sodium 140 (137-145) mmol/L Potassium 4.4 (3.5-5.1) mmol/L Chloride 103 (98-107) mmol/L Carbon Dioxide 28 (22-30) mmol/L BUN 49 H (9-20) mg/dL Creatinine 1.82 H (0.66-1.25) mg/dL Glucose 89 (74-99) mg/dL Calcium 8.6 (8.4-10.2) mg/dL AST 19 (17-59) U/L ALT 20 (4-49) U/L Alkaline Phosphatase 95 (38-126) U/L Total Protein 6.6 (6.3-8.2) g/dL Albumin 3.3 L (3.5-5.0) g/dL Current Medications Generic Name Dose Route Start Last Admin Trade Name Freq PRN Reason Stop Dose Admin Atorvastatin Calcium 80 mg 10/26/22 21:00 Atorvastatin 80 Mg Tab PO HS SINDHU Clopidogrel Bisulfate 75 mg 10/26/22 10:15 Clopidogrel 75 Mg Tab PO DAILY SINDHU Dextrose/Water 25 ml 10/26/22 09:16 Dextrose 50% Syringe 50 Ml IVP PER PROTOCOL PRN Hypoglycemia Protocol Dextrose/Water 50 ml 10/26/22 09:16 Dextrose 50% Syringe 50 Ml IVP PER PROTOCOL PRN Hypoglycemia Protocol Furosemide 40 mg 10/26/22 09:30 10/26/22 10:07 Furosemide 10 Mg/Ml 4 Ml Vial IV 40 mg Q12HR SINDHU Administration Heparin Sodium (Porcine) 5,000 unit 10/26/22 09:00 10/26/22 09:22 Heparin Sodium,Porcine 5,000 Unit/Ml 1 Ml Vial SQ 5,000 unit Q12HR SINDHU Administration Insulin Aspart 0 unit 10/26/22 12:30 Insulin Aspart (Novolog) 100 Unit/Ml Vial SQ ACHS [facility] Protocol Nifedipine 90 mg 10/26/22 10:30 Nifedipine Xl 90 Mg Tab.Er.24 PO DAILY [facility] Sodium Chloride 10 ml 10/26/22 09:00 10/26/22 09:23 Sodium Chloride 0.9% Flush 10 Ml Syringe IV Not Given BID [facility] Intake and Output 10/25/22 10/26/22 10/26/22 22:59 06:59 14:59 Intake Total 0 Output Total 950 900 Balance -950 -900 Intake: Blood Product 0 Unit 0 Output: Urine 950 900 Other: Weight 122.47 kg 121.5 kg Patient Weight 10/27/22 06:59 Weight 121.5 kg 10/26/22 01:44 10/26/22 01:44
[2022-10-26] MEDS: CLOPIDOGREL 75 MG TAB PO SCH (11:35)
[2022-10-26] MEDS: NIFEdipine XL 90 MG TAB.ER.24 PO SCH (11:35)
[2022-10-26] MEDS ORDERED: SENNOSIDES 8.6 MG TAB PO PRN (12:24)
--- NOTE | 2022-10-26 12:28 | P.HPIM ---
History of Present Illness H&P Date: 10/26/22 History of present illness; 72-year-old male patient with known history of diabetes mellitus controlled with insulin, hypertension, hyperlipidemia and severe 2 vessel coronary artery disease and CHF, recently underwent cardiac catheterization a few weeks ago which showed severe disease involving right coronary artery as well as LAD; patient underwent stenting of right coronary artery at that time followed by PCI of LAD on 10/17/22, was recently discharged. Patient was all right this morning when he woke up with worsening shortness of breath. Patient states shortness of breath is present at rest and is worsened by laying flat. Denies any chest pain. Denies any swelling of any extremities. Patient has been compliant with his diuretics. Complaining of PND. Denies any fever or chills. Denies any complaint of cough. Denies any nausea, vomiting abdominal pain. Because of this shortness of breath. Patient came to the ER Initial lab work done in the ER showed WBC 9.6, hemoglobin 7.9, platelet count 255, sodium 140, potassium 4.4, BUN 40, creatinine 1.82 Chest x-ray done in the ER showed pulmonary vascular congestion Patient admitted to medicine service REVIEW OF SYSTEMS: CONSTITUTIONAL: No fever, no malaise, no fatigue. HEENT: No recent visual problems or hearing problems. Denied any sore throat. CARDIOVASCULAR: As mentioned in HPI PULMONARY: As mentioned in HPI GASTROINTESTINAL: No diarrhea, no nausea, no vomiting, no abdominal pain. NEUROLOGICAL: No headaches, no weakness, no numbness. HEMATOLOGICAL: Denies any bleeding or petechiae. GENITOURINARY: Denies any burning micturition, frequency, or urgency. MUSCULOSKELETAL/RHEUMATOLOGICAL: Denies any joint pain, swelling, or any muscle pain. ENDOCRINE: Denies any polyuria or polydipsia. The rest of the 14-point review of systems is negative. PHYSICAL EXAMINATION: GENERAL: The patient is alert and oriented x3, not in any acute distress. Well developed, well nourished. HEENT: Pupils are round and equally reacting to light. EOMI. No scleral icterus. No conjunctival pallor. Normocephalic, atraumatic. No pharyngeal erythema. No thyromegaly. CARDIOVASCULAR: S1 and S2 present. No murmurs, rubs, or gallops. PULMONARY: Coarse breath sounds bilaterally, crackles audible bilaterally ABDOMEN: Soft, nontender, nondistended, normoactive bowel sounds. No palpable organomegaly. MUSCULOSKELETAL: No joint swelling or deformity. EXTREMITIES: Bilateral lower extremity amputation NEUROLOGICAL: Gross neurological examination did not reveal any focal deficits. SKIN: No rashes. 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 Continue same treatment. Continue with symptomatic treatment. Resume home medication. Monitor labs and vitals. DVT and GI prophylaxis. Further recommendations as per clinical course of the patient Dictation was produced using [employer] dictation software. please excuse any grammatical, word or spelling errors. 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 Date of last positivie culture/infection: 01/16/20 MDRO Source:: Left LEG Past Surgical History: Heart Catheterization Additional Past Surgical History / Comment(s): bilateral great toes amputated, 2nd toe lt foot partial amputation, multiple debridements of venous ulcers, colonoscopy, surgery as a child for undescended testicle., ABOVE THE KNEE AMPUTATION RIGHT LEG (JUNE 2017-[facility]) Past Anesthesia/Blood Transfusion Reactions: No Reported Reaction Date of Last Stent Placement:: 10/17/2022 Past Psychological History: Anxiety, Depression Smoking Status: Current every day smoker Past Alcohol Use History: Occasional Past Drug Use History: None Reported - Past Family History Father Family Medical History: Cancer Additional Family Medical History / Comment(s): Father from brain cancer Mother Family Medical History: Eye Disorder Additional Family Medical History / Comment(s): Glaucoma. Mother is . Medications and Allergies Home Medications Medication Instructions Recorded Confirmed Type Escitalopram Oxalate [Lexapro] 10 mg PO DAILY 11/09/17 10/26/22 History traZODone HCL 50 mg PO HS 11/09/17 10/26/22 History Acetaminophen [Tylenol Arthritis] 650 mg PO Q6H PRN 09/29/22 10/26/22 History Atorvastatin [Lipitor] 80 mg PO DAILY 09/29/22 10/26/22 History Budesonide [Pulmicort] 0.5 mg INHALATION RT-BID 09/29/22 10/26/22 History Cholecalciferol [Vitamin D3 (25 25 mcg PO DAILY 09/29/22 10/26/22 History Mcg = 1000 Iu)] Famotidine [Pepcid] 20 mg PO DAILY 09/29/22 10/26/22 History INSULIN LISPRO (HumaLOG) [humaLOG] 1 - 11 units SQ ACHS 09/29/22 10/26/22 History Insulin Glargine [Lantus Vial] 20 unit SQ BID-W/MEALS 09/29/22 10/26/22 History Ipratropium-Albuterol Nebulize 3 ml INHALATION RT-Q6H 09/29/22 10/26/22 History [Duoneb 0.5 mg-3 mg/3 ml Soln] Magnesium Oxide [Mag-Ox] 400 mg PO DAILY 09/29/22 10/26/22 History Multivitamins, Thera [Multivitamin 1 tab PO DAILY 09/29/22 10/26/22 History (formulary)] Sennosides [Senokot] 8.6 mg PO BID PRN 09/29/22 10/26/22 History Tamsulosin [Flomax] 0.4 mg PO DAILY 09/29/22 10/26/22 History hydrALAZINE HCL [Apresoline] 25 mg PO TID 09/29/22 10/26/22 History Apixaban [Eliquis] 5 mg PO BID tab 10/01/22 10/26/22 Rx Clopidogrel [Plavix] 75 mg PO DAILY #30 tab 10/01/22 10/26/22 Rx HYDROcodone/APAP 5-325MG [[place] 1 tab PO Q6HR PRN 3 Days #12 tab 10/01/22 10/26/22 Rx 5-325] NIFEdipine XL [Procardia XL] 90 mg PO DAILY #30 tab 10/01/22 10/26/22 Rx Nitroglycerin Sl Tabs [Nitrostat] 0.4 mg SUBLINGUAL Q5M PRN #30 tab 10/01/22 Rx Dapagliflozin Propanediol [Farxiga] 10 mg PO DAILY #30 tab 10/20/22 10/26/22 Rx Furosemide [Lasix] 40 mg PO DAILY #30 tab 10/20/22 10/26/22 Rx Losartan [Cozaar] 25 mg PO DAILY #30 tab 10/20/22 10/26/22 Rx Allergies Allergy/AdvReac Type Severity Reaction Status Date / Time No Known Allergies Allergy Verified 10/26/22 11:07 Physical Exam Vitals: Vital Signs Temp Pulse Resp BP Pulse Ox 10/26/22 07:00 49 L 18 158/72 92 L 10/26/22 06:00 42 L 14 138/65 91 L 10/26/22 05:00 50 L 14 146/55 93 L 10/26/22 04:01 93 L 10/26/22 04:00 50 L 22 149/72 91 L 10/26/22 03:00 43 L 22 146/57 93 L 10/26/22 02:20 50 L 26 H 135/68 95 10/26/22 02:10 50 L 24 135/68 93 L 10/26/22 01:50 50 L 22 141/86 93 L 10/26/22 01:40 50 L 21 141/86 93 L 10/26/22 01:21 50 L 22 126/100 100 10/26/22 01:14 97.6 F 50 L 18 126/100 100 Intake and Output 10/25/22 10/26/22 10/26/22 22:59 06:59 14:59 Output Total 950 Balance -950 Output: Urine 950 Other: Weight 122.47 kg Results CBC & Chem 7: 10/26/22 01:44 10/26/22 01:44 Labs: Abnormal Lab Results - Last 24 Hours (Table) 10/26/22 10/26/22 10/26/22 Range/Units 01:44 01:44 01:44 RBC 2.90 L (4.30-5.90) m/uL Hgb 7.9 L (13.0-17.5) gm/dL Hct 24.5 L (39.0-53.0) % RDW 17.0 H (11.5-15.5) % Neutrophils # 8.0 H (1.3-7.7) k/uL Lymphocytes # 0.7 L (1.0-4.8) k/uL PT 13.1 H (9.0-12.0) sec INR 1.3 H (<1.2) APTT 30.1 H (22.0-30.0) sec BUN 49 H (9-20) mg/dL Creatinine 1.82 H (0.66-1.25) mg/dL Albumin 3.3 L (3.5-5.0) g/dL Crossmatch 10/26/22 Range/Units 07:50 RBC (4.30-5.90) m/uL Hgb (13.0-17.5) gm/dL Hct (39.0-53.0) % RDW (11.5-15.5) % Neutrophils # (1.3-7.7) k/uL Lymphocytes # (1.0-4.8) k/uL PT (9.0-12.0) sec INR (<1.2) APTT (22.0-30.0) sec BUN (9-20) mg/dL Creatinine (0.66-1.25) mg/dL Albumin (3.5-5.0) g/dL Crossmatch See Detail
[2022-10-26] MEDS: IPRATROPIUM-ALBUTEROL 3 ML NEB INHALATION SCH ×2 (13:55→19:29)
[2022-10-26] MEDS: NYSTATIN 100,000 UNIT/GM POWD 15 GM TOPICAL SCH ×2 (14:03→20:54)
[2022-10-26] MEDS: ESCITALOPRAM 10 MG TAB PO SCH (14:03)
[2022-10-26 17:07] LABS: Glucose,Whole Blood 124 mg/dL (70-110)
[2022-10-26] MEDS: hydrALAZINE HCL 25 MG TAB PO SCH ×2 (17:36→20:54)
[2022-10-26] MEDS: INSULIN DETEMIR (LEVEMIR) 100 UNIT/ML SYR SQ SCH (17:36)
[2022-10-26] MEDS: BUDESONIDE 0.5 MG/2 ML NEBU INHALATION SCH (19:29)
[2022-10-26 20:54] LABS: Glucose,Whole Blood 179 mg/dL (70-110)
[2022-10-26] MEDS: ATORVASTATIN 80 MG TAB PO SCH (20:54)
[2022-10-26] MEDS: traZODone HCL 50 MG TAB PO SCH (20:54)
[2022-10-26 23:27] LABS: % Iron Saturation 12.19 (15.00-50.00)
[2022-10-27] MEDS: IPRATROPIUM-ALBUTEROL 3 ML NEB INHALATION SCH ×4 (00:39→20:21)
[2022-10-27] MEDS: HYDROcodone/APAP 5-325MG 1 EACH TAB PO PRN ×3 (02:06→20:48)
[2022-10-27 07:51] LABS: Glucose,Whole Blood 62 mg/dL (70-110)
[2022-10-27] MEDS: INSULIN ASPART (NovoLOG) 100 UNIT/ML VIAL SQ SCH ×4 (08:12→21:30)
[2022-10-27] MEDS: INSULIN DETEMIR (LEVEMIR) 100 UNIT/ML SYR SQ SCH ×2 (08:12→17:41)
[2022-10-27] MEDS: BUDESONIDE 0.5 MG/2 ML NEBU INHALATION SCH ×2 (08:13→20:21)
[2022-10-27 08:27] LABS: Glucose,Whole Blood 93 mg/dL (70-110)
[2022-10-27] MEDS: hydrALAZINE HCL 25 MG TAB PO SCH ×3 (08:46→20:50)
[2022-10-27] MEDS: FUROSEMIDE 10 MG/ML 4 ML VIAL IV SCH ×2 (08:46→20:50)
[2022-10-27] MEDS: CLOPIDOGREL 75 MG TAB PO SCH (08:46)
[2022-10-27] MEDS: MULTIVITAMINS, THERA 1 EACH TAB PO SCH (08:46)
[2022-10-27] MEDS: HEPARIN SODIUM,PORCINE 5,000 UNIT/ML 1 ML VIAL SQ SCH ×2 (08:46→20:51)
[2022-10-27] MEDS: TAMSULOSIN 0.4 MG CAP.ER.24H PO SCH (08:46)
[2022-10-27] MEDS: MAGNESIUM OXIDE 400 MG TAB PO SCH (08:46)
[2022-10-27] MEDS: ESCITALOPRAM 10 MG TAB PO SCH (08:46)
[2022-10-27] MEDS: CHOLECALCIFEROL 25 MCG (1000 IU) TABLET PO SCH (08:46)
[2022-10-27] MEDS: DAPAGLIFLOZIN PROPANEDIOL 10 MG TABLET PO SCH (08:46)
[2022-10-27] MEDS: NIFEdipine XL 90 MG TAB.ER.24 PO SCH (08:46)
[2022-10-27] MEDS: NYSTATIN 100,000 UNIT/GM POWD 15 GM TOPICAL SCH ×2 (08:47→21:36)
--- NOTE | 2022-10-27 10:17 | P.PN ---
Subjective HISTORY OF PRESENT ILLNESS: The patient is a 72-year-old male who multiple comorbid conditions, who follows in the office with Dr. Flynn. The patient was brought to the emergency room for increased shortness of breath. The patient had developed an acute onset of orthopnea prior to his presentation. The patient states after his recent stenting, he was in his usual state of health up until yesterday. He states he has had some nosebleeds. DIAGNOSTICS: EKG shows sinus rhythm with IVCD. No new ST or T wave abnormalities Chest x-ray shows pulmonary venous congestion with effusions and scattered infiltrates Lab data: WBC 9.6, hemoglobin 7.9, hematocrit 24.5, platelet 255, sodium 140, potassium 4.4, BUN 49, creatinine 1.8 to, AST 19, ALT 20, BNP 4630 10/27/2022 Patient examined this morning at the bedside. Patient denies chest pain or pressure. He reports mild shortness of breath. He states that he is close to feeling back to his baseline. He remains on IV Lasix. Kidney function from this morning is currently pending. Vital signs stable. Blood pressure 158/54. PHYSICAL EXAM: VITAL SIGNS: Reviewed. GENERAL: Well-developed in no acute distress. NECK: Supple. No JVD or thyromegaly LUNGS: Respirations even and unlabored. Lungs diminished to auscultation cain aterally. HEART: Regular rate and rhythm. S1 and S2 heard. EXTREMITIES: Normal range of motion. No clubbing or cyanosis. Bilateral [id number] appendectomy patient's ASSESSMENT: Acute on chronic heart failure with preserved ejection fraction Coronary artery disease with recent stenting of the LAD and also RCA in September Paroxysmal atrial for relation Chronic kidney disease Diabetes Hypertension Peripheral arterial disease with bilateral [id number] amputations COPD with home oxygen use Objective sleep apnea Morbid obesity PLAN: Continue current cardiac medications Patient's beta dominguez was discontinued on recent admission secondary to charly ycardia Continue IV Lasix 40 mg every 12 hours Daily weights, accurate I&O, and monitoring of kidney function Await kidney function from this a.m. Patients Eliquis placed on hold yesterday secondary to anemia and nosebleed. Repeat CBC this morning. Workup of anemia per primary medicine Further recommendations pending patient's course Nurse practitioner note has been reviewed by physician. Signing provider agrees with the documented findings, assessment, and plan of care. Objective - Vital Signs Vital signs: Vital Signs Temp 97.8 F 10/27/22 07:55 Pulse 89 10/27/22 08:26 Resp 20 10/27/22 07:55 BP 158/54 10/27/22 07:55 Pulse Ox 93 L 10/27/22 07:55 FiO2 Intake & Output 10/26/22 10/27/22 10/27/22 18:59 06:59 18:59 Intake Total 285 Output Total 2450 4000 Balance -2165 -4000 Weight 121.5 kg 121 kg Intake: Blood Product 285 Rc Pheresis 2 As3 Unit 285 [id number] Output: Urine 2450 4000 Condom 1000 Other: Voiding Method External Catheter External Catheter External Catheter - Labs CBC & Chem 7: 10/26/22 01:44 10/26/22 01:44 Labs: Abnormal Lab Results - Last 24 Hours (Table) 10/26/22 10/26/22 10/26/22 Range/Units 07:50 12:57 17:06 POC Glucose (mg/dL) 124 H (70-110) mg/dL Iron 34 L (65-175) UG/DL % Saturation 12.19 L (15.00-50.00) Transferrin 199.0 L (204.0-354.0) mg/dL Crossmatch See Detail 10/26/22 10/27/22 Range/Units 20:50 07:50 POC Glucose (mg/dL) 179 H 62 L (70-110) mg/dL Iron (65-175) UG/DL % Saturation (15.00-50.00) Transferrin (204.0-354.0) mg/dL Crossmatch
--- NOTE | 2022-10-27 11:48 | CA ---
Transthoracic Echo Report Name: Reid Frost Age: 72 Gender: M : 1950 Exam Date: 10/27/2022 07:28 Exam Location: [facility] Ht (in): 60 Wt (lb): 270 Ordering Physician: Tree Lee MD Attending/Referring Phys: Still Photographer Eryn Menendez RDCS Procedure CPT: Indications: Slurred speech, CVA Cardiac Hx: Technical Quality: Technically difficult study Contrast 1: Total Dose (mL): Contrast 2: Total Dose (mL): MEASUREMENTS (Male / Female) Normal Values 2D ECHO LV Diastolic Diameter PLAX 5.4 cm 4.2 - 5.9 / 3.9 - 5.3 cm LV Systolic Diameter PLAX 3.6 cm IVS Diastolic Thickness 1.7 cm 0.6 - 1.0 / 0.6 - 0.9 cm LVPW Diastolic Thickness 1.6 cm 0.6 - 1.0 / 0.6 - 0.9 cm LV Relative Wall Thickness 0.6 RV Internal Dim ED PLAX 3.4 cm LA Systolic Diameter LX 4.2 cm 3.0 - 4.0 / 2.7 - 3.8 cm LV Diastolic Volume MOD BP 111.9 cm??? 67 - 155 / 56 - 104 cm??? LV Systolic Volume MOD BP 39.7 cm??? 22 - 58 / 19 - 49 cm??? LV Ejection Fraction MOD BP 64.5 % >= 55 % LV Cardiac Index MOD BP 1558.8 cm???/min???m??? LV Diastolic Volume MOD 4C 108.8 cm??? LV Systolic Volume MOD 4C 45.8 cm??? LV Ejection Fraction MOD 4C 57.9 % LV Cardiac Index MOD 4C 1359.2 cm???/min???m??? LV Diastolic Length 4C 9.3 cm LV Systolic Length 4C 8.0 cm LV Diastolic Volume MOD 2C 113.2 cm??? LV Systolic Volume MOD 2C 33.8 cm??? LV Ejection Fraction MOD 2C 70.1 % LV Cardiac Index MOD 2C 1713.3 cm???/min???m??? LV Diastolic Length 2C 9.0 cm LV Systolic Length 2C 8.4 cm LA Volume 109.2 cm??? 18 - 58 / 22 - 52 cm??? M-MODE Aortic Root Diameter MM 3.6 cm MV E Point Septal Separation 0.5 cm AV Cusp Separation MM 2.3 cm DOPPLER AV Peak Velocity 165.3 cm/s AV Peak Gradient 10.9 mmHg AI Peak Velocity 343.2 cm/s AI Peak Gradient 47.1 mmHg AI Pressure Half Time 895.5 ms MV Area PHT 3.2 cm??? Mitral E Point Velocity 70.3 cm/s Mitral A Point Velocity 123.8 cm/s Mitral E to A Ratio 0.6 MV Deceleration Time 236.2 ms TR Peak Velocity 327.2 cm/s TR Peak Gradient 42.8 mmHg Right Ventricular Systolic Press 47.0 mmHg FINDINGS Left Ventricle Left ventricular ejection fraction is estimated at 55-60 %. Small left ventricular cavity. Severely increased septal wall thickness. Normal left ventricular wall motion. Right Ventricle Mild right ventricular dilatation. Moderate pulmonary hypertension. Right Atrium Normal right atrial size. Left Atrium Mildly increased left atrial diameter. Severely increased left atrial volume. Moderately increased left atrial area. Mitral Valve Mitral valve thickened. Mild mitral annular calcification. Aortic Valve Trileaflet aortic valve. Mild aortic regurgitation. Tricuspid Valve Structurally normal tricuspid valve. Mild tricuspid regurgitation. Pulmonic Valve Pulmonic valve not well visualized. No pulmonic regurgitation. Pericardium Normal pericardium. No pericardial effusion. Aorta Normal size aortic root and proximal ascending aorta. CONCLUSIONS Normal LV systolic function Severe mitral annular calcification with mild mitral regurgitation Mild aortic regurgitation Previewed by: Dr. Cem Morgan MD (Electronically Signed) Final Date: 27 October 2022 11:47
[2022-10-27 12:18] LABS: Glucose,Whole Blood 142 mg/dL (70-110)
[2022-10-27 13:18] VITALS: BMI 52.0
--- NOTE | 2022-10-27 14:13 | P.PN ---
Subjective Progress Note Date: 10/27/22 72-year-old male patient with known history of diabetes mellitus controlled with insulin, hypertension, hyperlipidemia and severe 2 vessel coronary artery disease and CHF, recently underwent cardiac catheterization a few weeks ago which showed severe disease involving right coronary artery as well as LAD; patient underwent stenting of right coronary artery at that time followed by PCI of LAD on 10/17/22, was recently discharged. Patient was all right this morning when he woke up with worsening shortness of breath. Patient states shortness of breath is present at rest and is worsened by laying flat. Denies any chest pain. Denies any swelling of any extremities. Patient has been compliant with his diuretics. Complaining of PND. Denies any fever or chills. Denies any complaint of cough. Denies any nausea, vomiting abdominal pain. Because of this shortness of breath. Patient came to the ER Initial lab work done in the ER showed WBC 9.6, hemoglobin 7.9, platelet count 255, sodium 140, potassium 4.4, BUN 40, creatinine 1.82 Chest x-ray done in the ER showed pulmonary vascular congestion Patient admitted to medicine service . Patient seen and examined. Denies any blood in the stools. Eliquis on hold, will get GI evaluation for anemia REVIEW OF SYSTEMS: CONSTITUTIONAL: No fever, no malaise,. CARDIOVASCULAR: No chest pain, no palpitations, no syncope. PULMONARY: No shortness of breath, no cough, GASTROINTESTINAL: No diarrhea, no nausea, no vomiting, no abdominal pain. NEUROLOGICAL: No headaches, no weakness, PHYSICAL EXAMINATION: GENERAL: The patient is alert and oriented x3, not in any acute distress. Well developed, well nourished. HEENT: Pupils are round and equally reacting to light. EOMI. No scleral icterus. No conjunctival pallor. Normocephalic, atraumatic. No pharyngeal erythema. No thyromegaly. CARDIOVASCULAR: S1 and S2 present. No murmurs, rubs, or gallops. PULMONARY: Chest is clear to auscultation, no wheezing or crackles. ABDOMEN: Soft, nontender, nondistended, normoactive bowel sounds. No palpable organomegaly. MUSCULOSKELETAL: No joint swelling or deformity. EXTREMITIES: Bilateral lower extremity amputations seen NEUROLOGICAL: Gross neurological examination did not reveal any focal deficits. SKIN: No rashes. 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 Continue same treatment. Continue with symptomatic treatment. Resume home medication. Monitor labs and vitals. DVT and GI prophylaxis. Further recommendations as per clinical course of the patient Dictation was produced using dINK dictation software. please excuse any grammatical, word or spelling errors. Objective - Vital Signs Vital signs: Vital Signs Temp 97.7 F 10/27/22 11:12 Pulse 62 10/27/22 11:12 Resp 20 10/27/22 11:12 BP 150/65 10/27/22 11:12 Pulse Ox 96 10/27/22 11:12 FiO2 Intake & Output 10/26/22 10/27/22 10/27/22 18:59 06:59 18:59 Intake Total 285 Output Total 2450 4000 Balance -2165 -4000 Weight 121.5 kg 121 kg Intake: Blood Product 285 Rc Pheresis 2 As3 Unit 285 [id number] Output: Urine 2450 4000 Condom 1000 Other: Voiding Method External Catheter External Catheter External Catheter - Labs CBC & Chem 7: 10/26/22 01:44 10/26/22 01:44 Labs: Abnormal Lab Results - Last 24 Hours (Table) 10/26/22 10/26/22 10/26/22 Range/Units 12:57 17:06 20:50 POC Glucose (mg/dL) 124 H 179 H (70-110) mg/dL Iron 34 L (65-175) UG/DL % Saturation 12.19 L (15.00-50.00) Transferrin 199.0 L (204.0-354.0) mg/dL 10/27/22 10/27/22 Range/Units 07:50 12:17 POC Glucose (mg/dL) 62 L 142 H (70-110) mg/dL Iron (65-175) UG/DL % Saturation (15.00-50.00) Transferrin (204.0-354.0) mg/dL
[2022-10-27 14:31] LABS: BUN/Creat Ratio 18.94 Ratio (12.00-20.00); Blood Urea Nitrogen 30.3 mg/dL (9.0-27.0); Calcium 8.6 mg/dL (8.7-10.3); Carbon Dioxide 27.6 mmol/L (21.6-31.8); Chloride 101 mmol/L (96-109); Glucose 100 mg/dL (70-110); Potassium 3.6 mmol/L (3.5-5.5); Sodium 142 mmol/L (135-145)
[2022-10-27] MEDS: SODIUM FERRIC GLUCONAT-SUCROSE 125 MG in SODIUM CHLORIDE 0.9% 100 ML IVPB SCH (14:38)
[2022-10-27 14:53] LABS: Basophils # (A) 0.03 X 10*3/uL (0.00-0.10); Basophils % (A) 0.3 %; Eosinophils # (A) 0.12 X 10*3/uL (0.04-0.35); HCT 28.6 % (39.6-50.0); HGB 8.5 d/dL (13.0-17.0); Lymphocytes # (A) 1.46 X 10*3/uL (0.90-5.00); Lymphocytes % (A) 12.8 %; MCH 26.4 pg (27.0-32.0); MCHC 29.7 d/dL (32.0-37.0); MCV 88.8 FL (80.0-97.0); Mean Platelet Volume 11.9 FL (9.5-12.2); Monocytes % (A) 7.9 %; NRBC Per 100 WBC 0 X 10*3/uL (0.00-0.01); Neutrophils # (A) 8.86 X 10*3/uL (1.80-7.70); Neutrophils % (A) 77.5 %; Platelet Count 311 X 10*3/uL (140-440); RBC 3.22 X 10*6/uL (4.40-5.60); RDW 16.8 % (11.5-14.5); WBC 11.43 X 10*3/uL (4.50-10.00)
[2022-10-27 15:19] LABS: Anisocytosis Slight; HCT 28.2 % (39.0-53.0); Hypochromasia Marked; MCH 27.4 pg (25.0-35.0); MCHC 31.9 g/dL (31.0-37.0); MCV 85.9 fL (80.0-100.0); Mean Platelet Volume 8.7; Platelet Count 271 k/uL (150-450); Poikilocytosis Slight; RBC 3.29 m/uL (4.30-5.90); RDW 16.8 % (11.5-15.5); WBC 11.3 k/uL (3.8-10.6)
[2022-10-27 17:12] LABS: Glucose,Whole Blood 137 mg/dL (70-110)
[2022-10-27] MEDS: ATORVASTATIN 80 MG TAB PO SCH (20:49)
[2022-10-27] MEDS: traZODone HCL 50 MG TAB PO SCH (20:50)
[2022-10-27 20:53] LABS: Glucose,Whole Blood 226 mg/dL (70-110)
[2022-10-28] MEDS: IPRATROPIUM-ALBUTEROL 3 ML NEB INHALATION SCH ×4 (03:32→19:45)
[2022-10-28] MEDS: HYDROcodone/APAP 5-325MG 1 EACH TAB PO PRN (04:11)
[2022-10-28 07:30] LABS: Glucose,Whole Blood 81 mg/dL (70-110)
[2022-10-28] MEDS: BUDESONIDE 0.5 MG/2 ML NEBU INHALATION SCH ×2 (07:41→19:45)
[2022-10-28] MEDS: INSULIN ASPART (NovoLOG) 100 UNIT/ML VIAL SQ SCH ×4 (07:47→21:03)
[2022-10-28] MEDS: INSULIN DETEMIR (LEVEMIR) 100 UNIT/ML SYR SQ SCH ×2 (07:47→17:12)
[2022-10-28] MEDS: HEPARIN SODIUM,PORCINE 5,000 UNIT/ML 1 ML VIAL SQ SCH ×2 (08:04→21:00)
[2022-10-28] MEDS: CHOLECALCIFEROL 25 MCG (1000 IU) TABLET PO SCH (08:04)
[2022-10-28] MEDS: MAGNESIUM OXIDE 400 MG TAB PO SCH (08:04)
[2022-10-28] MEDS: hydrALAZINE HCL 25 MG TAB PO SCH (08:04)
[2022-10-28] MEDS: CLOPIDOGREL 75 MG TAB PO SCH (08:04)
[2022-10-28] MEDS: MULTIVITAMINS, THERA 1 EACH TAB PO SCH (08:04)
[2022-10-28] MEDS: TAMSULOSIN 0.4 MG CAP.ER.24H PO SCH (08:04)
[2022-10-28] MEDS: ESCITALOPRAM 10 MG TAB PO SCH (08:05)
[2022-10-28] MEDS: DAPAGLIFLOZIN PROPANEDIOL 10 MG TABLET PO SCH (08:05)
[2022-10-28] MEDS: NIFEdipine XL 90 MG TAB.ER.24 PO SCH (08:05)
[2022-10-28] MEDS: FUROSEMIDE 10 MG/ML 4 ML VIAL IV SCH (08:05)
[2022-10-28] MEDS: NYSTATIN 100,000 UNIT/GM POWD 15 GM TOPICAL SCH ×2 (08:07→21:03)
[2022-10-28] MEDS: SODIUM FERRIC GLUCONAT-SUCROSE 125 MG in SODIUM CHLORIDE 0.9% 100 ML IVPB SCH (08:12)
[2022-10-28 09:12] LABS: Basophils # (A) 0.02 X 10*3/uL (0.00-0.10); Basophils % (A) 0.2 %; Eosinophils # (A) 0.04 X 10*3/uL (0.04-0.35); Eosinophils % (A) 0.4 %; HCT 28.6 % (39.6-50.0); HGB 8.7 d/dL (13.0-17.0); Lymphocytes % (A) 7.4 %; MCH 25.9 pg (27.0-32.0); MCHC 30.4 d/dL (32.0-37.0); MCV 85.1 FL (80.0-97.0); Mean Platelet Volume 11.3 FL (9.5-12.2); Monocytes # (A) 0.91 X 10*3/uL (0.20-1.00); Monocytes % (A) 8.4 %; NRBC Per 100 WBC 0 X 10*3/uL (0.00-0.01); Neutrophils # (A) 8.96 X 10*3/uL (1.80-7.70); Neutrophils % (A) 83.2 %; Platelet Count 294 X 10*3/uL (140-440); RBC 3.36 X 10*6/uL (4.40-5.60); WBC 10.77 X 10*3/uL (4.50-10.00)
[2022-10-28] MEDS ORDERED: OLANZapine 5 MG TAB PO PRN (09:29)
[2022-10-28 09:33] LABS: % Iron Saturation 10.58 (15.00-50.00); ALT 18 U/L (10-49); AST 19 U/L (14-35); Albumin 3.7 d/dL (3.8-4.9); Albumin/Globulin Ratio 1.28 Ratio (1.60-3.17); Alkaline Phosphatase 101 U/L (41-126); BUN/Creat Ratio 15.24 Ratio (12.00-20.00); Blood Urea Nitrogen 25.9 mg/dL (9.0-27.0); Calcium 8.6 mg/dL (8.7-10.3); Carbon Dioxide 28.5 mmol/L (21.6-31.8); Chloride 99 mmol/L (96-109); Globulin 2.9 d/dL (1.6-3.3); Glucose 73 mg/dL (70-110); Iron 29 UG/DL (65-175); Potassium 3.5 mmol/L (3.5-5.5); Sodium 141 mmol/L (135-145); Total Bilirubin 0.9 mg/dL (0.3-1.2); Total Iron Binding Capacity 274 UG/DL (228-460); Total Protein 6.6 d/dL (6.2-8.2)
--- NOTE | 2022-10-28 10:50 | P.PN ---
Subjective HISTORY OF PRESENT ILLNESS: The patient is a 72-year-old male who multiple comorbid conditions, who follows in the office with Dr. Flynn. The patient was brought to the emergency room for increased shortness of breath. The patient had developed an acute onset of orthopnea prior to his presentation. The patient states after his recent stenting, he was in his usual state of health up until yesterday. He states he has had some nosebleeds. DIAGNOSTICS: EKG shows sinus rhythm with IVCD. No new ST or T wave abnormalities Chest x-ray shows pulmonary venous congestion with effusions and scattered infiltrates Lab data: WBC 9.6, hemoglobin 7.9, hematocrit 24.5, platelet 255, sodium 140, potassium 4.4, BUN 49, creatinine 1.8 to, AST 19, ALT 20, BNP 4630 10/27/2022 Patient examined this morning at the bedside. Patient denies chest pain or pressure. He reports mild shortness of breath. He states that he is close to feeling back to his baseline. He remains on IV Lasix. Kidney function from this morning is currently pending. Vital signs stable. Blood pressure 158/54. 10/28/2022 Patient examined this morning at the bedside. Patient denies chest pain or pressure. He denies shortness of breath. He's feels as though his breathing is back to his baseline. Blood pressures are elevated with a systolic in the 160s. PHYSICAL EXAM: VITAL SIGNS: Reviewed. GENERAL: Well-developed in no acute distress. NECK: Supple. No JVD or thyromegaly LUNGS: Respirations even and unlabored. Lungs diminished to auscultation bilaterally. HEART: Regular rate and rhythm. S1 and S2 heard. EXTREMITIES: Normal range of motion. No clubbing or cyanosis. Bilateral ibcri-pjw-tups appendectomy patient's ASSESSMENT: Acute on chronic heart failure with preserved ejection fraction Coronary artery disease with recent stenting of the LAD and also RCA in September Paroxysmal atrial for relation Chronic kidney disease Diabetes Hypertension Peripheral arterial disease with bilateral fyfez-btj-syfe amputations COPD with home oxygen use Objective sleep apnea Morbid obesity PLAN: Continue current cardiac medications Patient's beta dominguez was discontinued on recent admission secondary to bradycardia Discontinue IV Lasix. Begin oral Lasix 40 mg twice a day Increase hydralazine to 50 mg 3 times a day for occult blood pressure control Patients Eliquis placed on hold secondary to anemia and nosebleed. Resume when cleared by primary medicine. Workup of anemia per primary medicine Further recommendations pending patient's course Nurse practitioner note has been reviewed by physician. Signing provider agrees with the documented findings, assessment, and plan of care. Objective - Vital Signs Vital signs: Vital Signs Temp 98.9 F 10/28/22 08:00 Pulse 65 10/28/22 08:00 Resp 22 10/28/22 08:00 BP 160/78 10/28/22 08:00 Pulse Ox 98 10/28/22 08:00 FiO2 Intake & Output 10/27/22 10/28/22 10/28/22 18:59 06:59 18:59 Output Total 1200 2400 Balance -1200 -2400 Weight 121 kg 117 kg Output: Urine 1200 2400 Other: Voiding Method External Catheter External Catheter External Catheter # Voids 2 - Labs CBC & Chem 7: 10/28/22 05:36 10/28/22 05:36 Labs: Abnormal Lab Results - Last 24 Hours (Table) 10/26/22 10/26/22 10/27/22 Range/Units 01:44 12:57 08:33 WBC (4.50-10.00) X 10*3/uL RBC (4.40-5.60) X 10*6/uL Hgb (13.0-17.0) d/dL Hct (39.6-50.0) % MCH (27.0-32.0) pg MCHC (32.0-37.0) d/dL RDW (11.5-14.5) % Neutrophils # (1.80-7.70) X 10*3/uL Lymphocytes # (0.90-5.00) X 10*3/uL Anion Gap 13.40 H (4.00-12.00) mmol/L BUN 30.3 H (9.0-27.0) mg/dL Creatinine 1.6 H (0.6-1.5) mg/dL Est GFR (CKD-EPI) 46 L (>=60) POC Glucose (mg/dL) (70-110) mg/dL Hemoglobin A1c 8.1 H (<=6.0) % Calcium 8.6 L (8.7-10.3) mg/dL Iron (65-175) UG/DL % Saturation (15.00-50.00) Transferrin (204.0-354.0) mg/dL Albumin (3.8-4.9) d/dL Albumin/Globulin Ratio (1.60-3.17) Ratio RBC Folate 1,208 H (280 - 791) ng/mL 10/27/22 10/27/22 10/27/22 Range/Units 08:33 12:17 14:59 WBC 11.43 H 11.3 H (4.50-10.00) X 10*3/uL RBC 3.22 L 3.29 L (4.40-5.60) X 10*6/uL Hgb 8.5 L 9.0 L (13.0-17.0) d/dL Hct 28.6 L 28.2 L (39.6-50.0) % MCH 26.4 L (27.0-32.0) pg MCHC 29.7 L (32.0-37.0) d/dL RDW 16.8 H 16.8 H (11.5-14.5) % Neutrophils # 8.86 H (1.80-7.70) X 10*3/uL Lymphocytes # (0.90-5.00) X 10*3/uL Anion Gap (4.00-12.00) mmol/L BUN (9.0-27.0) mg/dL Creatinine (0.6-1.5) mg/dL Est GFR (CKD-EPI) (>=60) POC Glucose (mg/dL) 142 H (70-110) mg/dL Hemoglobin A1c (<=6.0) % Calcium (8.7-10.3) mg/dL Iron (65-175) UG/DL % Saturation (15.00-50.00) Transferrin (204.0-354.0) mg/dL Albumin (3.8-4.9) d/dL Albumin/Globulin Ratio (1.60-3.17) Ratio RBC Folate (280 - 791) ng/mL 10/27/22 10/27/22 10/28/22 Range/Units 17:10 20:50 05:36 WBC (4.50-10.00) X 10*3/uL RBC (4.40-5.60) X 10*6/uL Hgb (13.0-17.0) d/dL Hct (39.6-50.0) % MCH (27.0-32.0) pg MCHC (32.0-37.0) d/dL RDW (11.5-14.5) % Neutrophils # (1.80-7.70) X 10*3/uL Lymphocytes # (0.90-5.00) X 10*3/uL Anion Gap 13.50 H (4.00-12.00) mmol/L BUN (9.0-27.0) mg/dL Creatinine 1.7 H (0.6-1.5) mg/dL Est GFR (CKD-EPI) 43 L (>=60) POC Glucose (mg/dL) 137 H 226 H (70-110) mg/dL Hemoglobin A1c (<=6.0) % Calcium 8.6 L (8.7-10.3) mg/dL Iron 29 L (65-175) UG/DL % Saturation 10.58 L (15.00-50.00) Transferrin 196.0 L (204.0-354.0) mg/dL Albumin 3.7 L (3.8-4.9) d/dL Albumin/Globulin Ratio 1.28 L (1.60-3.17) Ratio RBC Folate (280 - 791) ng/mL 10/28/22 Range/Units 05:36 WBC 10.77 H (4.50-10.00) X 10*3/uL RBC 3.36 L (4.40-5.60) X 10*6/uL Hgb 8.7 L (13.0-17.0) d/dL Hct 28.6 L (39.6-50.0) % MCH 25.9 L (27.0-32.0) pg MCHC 30.4 L (32.0-37.0) d/dL RDW 17.0 H (11.5-14.5) % Neutrophils # 8.96 H (1.80-7.70) X 10*3/uL Lymphocytes # 0.80 L (0.90-5.00) X 10*3/uL Anion Gap (4.00-12.00) mmol/L BUN (9.0-27.0) mg/dL Creatinine (0.6-1.5) mg/dL Est GFR (CKD-EPI) (>=60) POC Glucose (mg/dL) (70-110) mg/dL Hemoglobin A1c (<=6.0) % Calcium (8.7-10.3) mg/dL Iron (65-175) UG/DL % Saturation (15.00-50.00) Transferrin (204.0-354.0) mg/dL Albumin (3.8-4.9) d/dL Albumin/Globulin Ratio (1.60-3.17) Ratio RBC Folate (280 - 791) ng/mL
[2022-10-28 11:49] LABS: Glucose,Whole Blood 194 mg/dL (70-110)
[2022-10-28 12:26] LABS: Glucose,Whole Blood 156 mg/dL (70-110)
[2022-10-28] MEDS ORDERED: hydrALAZINE HCL 20 MG/ML 1 ML VIAL IVP PRN (12:26)
[2022-10-28] MEDS ORDERED: ACETAMINOPHEN SUPPOSITORY 650 MG SUPP RECTAL PRN (12:26)
[2022-10-28] MEDS ORDERED: OLANZapine 10 MG VIAL IM PRN (13:33)
[2022-10-28] MEDS ORDERED: OLANZapine 2.5 MG TAB PO PRN (13:34)
--- NOTE | 2022-10-28 13:37 | P.CN ---
Psychiatric Consult - . Consult date: 10/28/22 Consult:: 10/28/22 13:36 IDENTIFYING DATA: This patient is a 72-year-old male with significant history of diabetes, hypertension, hyperlipidemia, coronary artery disease, CHF with recent cardiac catheterization, and bilateral xcead-chx-vvac amputations presented to the hospital for orthopnea HISTORY OF PRESENT ILLNESS: The patient presented to the hospital for orthopnea. The patient recently had cardiac stenting of his right coronary artery and percutaneous intervention of the LAD on 10/17/2022. On the morning of 10/26/2022, the patient woke up with worsening shortness of breath. This was worsened when laying flat. He was subsequently admitted on to the medical floor. Chest x-ray in the emergency department showed pulmonary vascular congestion. Psychiatry has been consulted for altered mental status and delirium. As per discussion with the patient's nurse, the patient has been experiencing vivid visual hallucinations such as seeing animals all across the floor. Psychiatry attempted to evaluate the patient however he remains mute during the psychiatric evaluation and stares blankly. He has been noted to be febrile. PAST PSYCHIATRIC HISTORY: Review of the patient's chart reveals that the patient is prescribed trazodone and Lexapro. No previous inpatient psychiatric admissions on the electronic medical records. The patient also reportedly has a history of anxiety and depression. 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) Past Anesthesia/Blood Transfusion Reactions: No Reported Reaction Date of Last Stent Placement:: 10/17/2022 Past Psychological History: Anxiety, Depression Smoking Status: Current every day smoker Past Alcohol Use History: Occasional Past Drug Use History: None Reported ALLERGIES: NO KNOWN DRUG ALLERGIES CHEMICAL DEPENDENCY HISTORY: As per chart, the patient isn't every day smoker. FAMILY PSYCHIATRIC/SUBSTANCE USE HISTORY: Unable to assess. SOCIAL HISTORY: The patient is reportedly unemployed. He has a daughter. He is a . MENTAL STATUS EXAM: General Appearance: Patient appears to be stated age, is alert but appears to be somnolent, bilateral above-knee amputations. Appears malaised. Behavior: Patient is seated upright in his bed. Speech: Patient is mute during this interview. Mood/Affect: Unable to assess patient mood. Affect appears to be malaised and somnolent. Suicidality/Homicidality: Unable to assess Perceptions: Unable to assess Though content/process: Unable to assess Memory and concentration: Unable to assess. Appears to be grossly poor. Judgment and insight: Grossly poor at this time Vital Signs Temp 102.9 F H 10/28/22 12:27 Pulse 81 10/28/22 12:27 Resp 20 10/28/22 12:27 BP 193/54 10/28/22 12:27 Pulse Ox 98 10/28/22 12:27 FiO2 Intake & Output 10/27/22 10/28/22 10/28/22 18:59 06:59 18:59 Output Total 1200 2400 Balance -1200 -2400 Weight 121 kg 117 kg Output: Urine 1200 2400 Other: Voiding Method External Catheter External Catheter External Catheter # Voids 2 Laboratory Results WBC 10.77 X 10*3/uL (4.50-10.00) H 10/28/22 05:36 RBC 3.36 X 10*6/uL (4.40-5.60) L 10/28/22 05:36 Hgb 8.7 d/dL (13.0-17.0) L 10/28/22 05:36 Hct 28.6 % (39.6-50.0) L 10/28/22 05:36 MCV 85.1 FL (80.0-97.0) 10/28/22 05:36 MCH 25.9 pg (27.0-32.0) L 10/28/22 05:36 MCHC 30.4 d/dL (32.0-37.0) L 10/28/22 05:36 RDW 17.0 % (11.5-14.5) H 10/28/22 05:36 Plt Count 294 X 10*3/uL (140-440) 10/28/22 05:36 MPV 11.3 FL (9.5-12.2) 10/28/22 05:36 Immature Gran % (Auto) 0.40 % 10/28/22 05:36 Absolute Nucleated RBC 0 % 10/28/22 05:36 Neutrophils % 83.2 % 10/28/22 05:36 Lymphocytes % 7.4 % 10/28/22 05:36 Monocytes % 8.4 % 10/28/22 05:36 Eosinophils % 0.4 % 10/28/22 05:36 Basophils % 0.2 % 10/28/22 05:36 Immature Gran # 0.04 X 10*3/uL 10/28/22 05:36 Neutrophils # 8.96 X 10*3/uL (1.80-7.70) H 10/28/22 05:36 Lymphocytes # 0.80 X 10*3/uL (0.90-5.00) L 10/28/22 05:36 Monocytes # 0.91 X 10*3/uL (0.20-1.00) 10/28/22 05:36 Eosinophils # 0.04 X 10*3/uL (0.04-0.35) 10/28/22 05:36 Basophils # 0.02 X 10*3/uL (0.00-0.10) 10/28/22 05:36 NRBC/100 WBC Diff 0 X 10*3/uL (0.00-0.01) 10/28/22 05:36 Hypochromasia Marked 10/27/22 14:59 Poikilocytosis Slight 10/27/22 14:59 Anisocytosis Slight 10/27/22 14:59 PT 13.1 sec (9.0-12.0) H 10/26/22 01:44 INR 1.3 (<1.2) H 10/26/22 01:44 APTT 30.1 sec (22.0-30.0) H 10/26/22 01:44 Sodium 141 mmol/L (135-145) 10/28/22 05:36 Potassium 3.5 mmol/L (3.5-5.5) 10/28/22 05:36 Chloride 99 mmol/L (96-109) 10/28/22 05:36 Carbon Dioxide 28.5 mmol/L (21.6-31.8) 10/28/22 05:36 Anion Gap 13.50 mmol/L (4.00-12.00) H 10/28/22 05:36 BUN 25.9 mg/dL (9.0-27.0) 10/28/22 05:36 Creatinine 1.7 mg/dL (0.6-1.5) H 10/28/22 05:36 Est GFR (CKD-EPI) 43 (>=60) L 10/28/22 05:36 Est GFR (CKD-EPI)AfAm 43 (>60 ml/min/1.73 sqM) 10/26/22 01:44 Est GFR (CKD-EPI)NonAf 37 (>60 ml/min/1.73 sqM) 10/26/22 01:44 BUN/Creatinine Ratio 15.24 Ratio (12.00-20.00) 10/28/22 05:36 Glucose 73 mg/dL (70-110) 10/28/22 05:36 POC Glucose (mg/dL) 156 mg/dL (70-110) H 10/28/22 12:24 POC Glu Manager Logistic PENNY Bas[place] 10/28/22 12:[address] Glu mg/dL 186 mg/dL 10/26/22 01:44 Hemoglobin A1c 8.1 % (<=6.0) H 10/26/22 01:44 Plasma Lactic Acid Ata 1.9 mmol/L (0.7-2.0) 10/26/22 01:44 Calcium 8.6 mg/dL (8.7-10.3) L 10/28/22 05:36 Iron 29 UG/DL (65-175) L 10/28/22 05:36 TIBC 274 UG/DL (228-460) 10/28/22 05:36 % Saturation 10.58 (15.00-50.00) L 10/28/22 05:36 Transferrin 196.0 mg/dL (204.0-354.0) L 10/28/22 05:36 Ferritin 220.0 ng/mL (22.0-322.0) 10/28/22 05:36 Total Bilirubin 0.9 mg/dL (0.3-1.2) 10/28/22 05:36 AST 19 U/L (14-35) 10/28/22 05:36 ALT 18 U/L (10-49) 10/28/22 05:36 Alkaline Phosphatase 101 U/L (41-126) 10/28/22 05:36 Troponin I 0.026 ng/mL (0.000-0.034) 10/26/22 01:44 NT-Pro-B Natriuret Pep 4630 pg/mL 10/26/22 01:44 Total Protein 6.6 d/dL (6.2-8.2) 10/28/22 05:36 Albumin 3.7 d/dL (3.8-4.9) L 10/28/22 05:36 Globulin 2.9 d/dL (1.6-3.3) 10/28/22 05:36 Albumin/Globulin Ratio 1.28 Ratio (1.60-3.17) L 10/28/22 05:36 Vitamin B12 924.0 pg/mL (200.0-944.0) 10/28/22 05:36 RBC Folate 1,208 ng/mL (280 - 791) H 10/26/22 12:57 Stool Occult Blood Negative (Negative) 10/26/22 05:25 Coronavirus (PCR) Not Detected (Not Detectd) 10/26/22 01:54 Blood Type O Positive 10/26/22 07:50 Blood Type Confirm O Positive 10/26/22 07:45 Blood Type Recheck No Previous Record 10/26/22 07:50 Bld Type Recheck Status CABO Indicated 10/26/22 07:50 Antibody Screen NEGATIVE 10/26/22 07:50 Crossmatch See Detail 10/26/22 07:50 Spec Expiration Date 10/29/2022234910/26/22 07:50 IMPRESSIONS: Acute delirium likely secondary to acute metabolic encephalopathy versus infection Acute on chronic heart failure with preserved ejection fraction Coronary artery disease with recent stenting of the LAD and also RCA in September Paroxysmal atrial for relation Chronic kidney disease Diabetes Hypertension Peripheral arterial disease with bilateral [id number] amputations COPD with home oxygen use Objective sleep apnea PLAN: -Continue your medical management -At this time patient DOES NOT meet criteria for inpatient psychiatric admission. Suspect that patient's psychotic symptoms is secondary to acute metabolic encephalopathy. -Delirium precautions recommended with patient including - avoiding use of narcotics and CLAIM AUDITOR sedatives, limit anticholinergic medications when possible, frequent re-orientation, minimize use of restraints, open window shades during the day and close them at night -Would recommend the following medication changes/additions: Agree with Zyprexa when necessary however we will decrease the dose to 2.5 mg due to concern for oversedation. Okay to continue Lexapro and trazodone -Psychiatry will loosely follow. Please contact us should there be any acute change in mentation or when patient is more appropriate for interview. 10/28/22 13:36
--- NOTE | 2022-10-28 13:39 | P.CONS ---
History of Present Illness - Reason for Consult Consult date: 10/28/22 Anemia, questionable GI bleed Requesting physician: Tree Lee - Chief Complaint Shortness of breath - History of Present Illness This is 72-year-old male with multiple comorbidities including COPD, coronary artery disease with recent stenting on Plavix and Eliquis, congestive heart failure, diabetes mellitus, hyperlipidemia, hypertension, chronic renal disease, and chronic anemia who presented to the emergency department with complaints of shortness of breath that worsened as he was lying flat. Patient was admitted for congestive heart failure and anemia. After review all of chart patient has a long-standing history of anemia since 2013. Anemia Patient's admitting hemoglobin was 9.0 did have a drop on 10/26/2022 to 7.9 but has remained stable with a repeat today of 8.7. Patient denies any abdominal pain, nausea or vomiting. Denies any chest pain at this time but is short of breath. Patient is quite confused this morning believes that there are mice running around in his room and that it is 1971. He was aware that he was in the hospital and [place]. States he has had a prior colonoscopy although he is unsure when. Patient is not had any blood in his stool or black stool. He had a stool occult was negative. Eliquis currently on hold. Patient admitted with acute on chronic congestive heart failure. Patient denies any previous history of GI bleed. Denies any previous history of peptic ulcer disease or upper endoscopy. The patient underwent echocardiogram that showed normal LV systolic function, severe mitral annular calcification with mild mitral regurgitation and mild aortic regurgitation. Cardiology is following. Review of Systems REVIEW OF SYSTEMS: CARDIOPULMONARY: No chest pain. Patient with complaints of shortness of breath. Requiring oxygen Gastrointestinal: No abdominal pain. No nausea or vomiting. No hematemesis, coffee-ground emesis. No rectal bleeding, or melena. GENITOURINARY: No dysuria or hematuria. MUSCULOSKELETAL: Reports normal range of motion. Complaints of neck pain. SKIN: No rashes. No jaundice. ENDOCRINE: No chills, fevers. No excessive weight gain or loss. No polydipsia or polyuria. PSYCHIATRIC: Patient is confused, states there are mice running around his room. He is alert and oriented 2. NEUROLOGY: No change in mental status. Denies dizziness, headache. ENT: Vision unremarkable. CONSTITUTIONAL: No recent weight loss. No fever, chills, night sweats. 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 Year Discovered:: 01/16/20 MDRO Source:: Left LEG Past Surgical History: Heart Catheterization Additional Past Surgical History / Comment(s): bilateral great toes amputated, 2nd toe lt foot partial amputation, multiple debridements of venous ulcers, colo noscopy, surgery as a child for undescended testicle., ABOVE THE KNEE AMPUTATION RIGHT LEG (JUNE 2017-[facility]) Past Anesthesia/Blood Transfusion Reactions: No Reported Reaction Date of Last Stent Placement:: 10/17/2022 Past Psychological History: Anxiety, Depression Smoking Status: Current every day smoker Past Alcohol Use History: Occasional Past Drug Use History: None Reported - Past Family History Father Family Medical History: Cancer Additional Family Medical History / Comment(s): Father from brain cancer Mother Family Medical History: Eye Disorder Additional Family Medical History / Comment(s): Glaucoma. Mother is . Medications and Allergies Home Medications Medication Instructions Recorded Confirmed Type Escitalopram Oxalate [Lexapro] 10 mg PO DAILY 11/09/17 10/26/22 History traZODone HCL 50 mg PO HS 11/09/17 10/26/22 History Acetaminophen [Tylenol Arthritis] 650 mg PO Q6H PRN 09/29/22 10/26/22 History Atorvastatin [Lipitor] 80 mg PO DAILY 09/29/22 10/26/22 History Budesonide [Pulmicort] 0.5 mg INHALATION RT-BID 09/29/22 10/26/22 History Cholecalciferol [Vitamin D3 (25 25 mcg PO DAILY 09/29/22 10/26/22 History Mcg = 1000 Iu)] Famotidine [Pepcid] 20 mg PO DAILY 09/29/22 10/26/22 History INSULIN LISPRO (HumaLOG) [humaLOG] 1 - 11 units SQ ACHS 09/29/22 10/26/22 History Insulin Glargine [Lantus Vial] 20 unit SQ BID-W/MEALS 09/29/22 10/26/22 History Ipratropium-Albuterol Nebulize 3 ml INHALATION RT-Q6H 09/29/22 10/26/22 History [Duoneb 0.5 mg-3 mg/3 ml Soln] Magnesium Oxide [Mag-Ox] 400 mg PO DAILY 09/29/22 10/26/22 History Multivitamins, Thera [Multivitamin 1 tab PO DAILY 09/29/22 10/26/22 History (formulary)] Sennosides [Senokot] 8.6 mg PO BID PRN 09/29/22 10/26/22 History Tamsulosin [Flomax] 0.4 mg PO DAILY 09/29/22 10/26/22 History hydrALAZINE HCL [Apresoline] 25 mg PO TID 09/29/22 10/26/22 History Apixaban [Eliquis] 5 mg PO BID tab 10/01/22 10/26/22 Rx Clopidogrel [Plavix] 75 mg PO DAILY #30 tab 10/01/22 10/26/22 Rx HYDROcodone/APAP 5-325MG [[place] 1 tab PO Q6HR PRN 3 Days #12 tab 10/01/22 10/26/22 Rx 5-325] NIFEdipine XL [Procardia XL] 90 mg PO DAILY #30 tab 10/01/22 10/26/22 Rx Nitroglycerin Sl Tabs [Nitrostat] 0.4 mg SUBLINGUAL Q5M PRN #30 tab 10/01/22 10/26/22 Rx Dapagliflozin Propanediol [Farxiga] 10 mg PO DAILY #30 tab 10/20/22 10/26/22 Rx Furosemide [Lasix] 40 mg PO DAILY #30 tab 10/20/22 10/26/22 Rx Losartan [Cozaar] 25 mg PO DAILY #30 tab 10/20/22 10/26/22 Rx Allergies Allergy/AdvReac Type Severity Reaction Status Date / Time No Known Allergies Allergy Verified 10/26/22 11:07 Physical Exam Vitals: Vital Signs Temp Pulse Pulse Resp BP Pulse Ox 10/28/22 08:00 98.9 F 65 22 160/78 98 10/28/22 07:56 74 10/28/22 07:42 78 97 10/28/22 01:49 99.1 F 82 18 159/61 95 10/27/22 20:41 84 10/27/22 20:23 82 10/27/22 19:17 98.7 F 80 19 150/73 94 L 10/27/22 15:49 118/56 10/27/22 15:27 87 10/27/22 15:15 85 10/27/22 11:12 97.7 F 62 20 150/65 96 Intake and Output 10/27/22 10/28/22 10/28/22 22:59 06:59 14:59 Output Total 500 1900 Balance -500 -1900 Output: Urine 500 1900 Other: Voiding Method External Catheter # Voids 2 Weight 117 kg General appearance: The patient is alert, oriented, appears in no acute distress. Morbidly obese. 4 L nasal cannula. HET: Head is normocephalic and atraumatic. Conjunctiva pink. Sclera anicteric. Neck: Supple without lymphadenopathy. Trachea midline. Heart: S1 S2. Regular rate and rhythm. Lungs: Equal expansion, unlabored breathing. Abdomen: Soft, nontender, nondistended with bowel sounds. No guarding or rigidity. Skin: No rashes. No jaundice. Extremities: Normal skin color and turgor. No pedal edema. Neurological: No focal deficits. Alert and oriented x3. Results CBC & Chem 7: 10/28/22 05:36 10/28/22 05:36 Labs: Abnormal Lab Results - Last 24 Hours (Table) 10/26/22 10/27/22 10/27/22 Range/Units 01:44 08:33 08:33 WBC 11.43 H (4.50-10.00) X 10*3/uL RBC 3.22 L (4.40-5.60) X 10*6/uL Hgb 8.5 L (13.0-17.0) d/dL Hct 28.6 L (39.6-50.0) % MCH 26.4 L (27.0-32.0) pg MCHC 29.7 L (32.0-37.0) d/dL RDW 16.8 H (11.5-14.5) % Neutrophils # 8.86 H (1.80-7.70) X 10*3/uL Anion Gap 13.40 H (4.00-12.00) mmol/L BUN 30.3 H (9.0-27.0) mg/dL Creatinine 1.6 H (0.6-1.5) mg/dL Est GFR (CKD-EPI) 46 L (>=60) POC Glucose (mg/dL) (70-110) mg/dL Hemoglobin A1c 8.1 H (<=6.0) % Calcium 8.6 L (8.7-10.3) mg/dL 10/27/22 10/27/22 10/27/22 Range/Units 12:17 14:59 17:10 WBC 11.3 H (4.50-10.00) X 10*3/uL RBC 3.29 L (4.40-5.60) X 10*6/uL Hgb 9.0 L (13.0-17.0) d/dL Hct 28.2 L (39.6-50.0) % MCH (27.0-32.0) pg MCHC (32.0-37.0) d/dL RDW 16.8 H (11.5-14.5) % Neutrophils # (1.80-7.70) X 10*3/uL Anion Gap (4.00-12.00) mmol/L BUN (9.0-27.0) mg/dL Creatinine (0.6-1.5) mg/dL Est GFR (CKD-EPI) (>=60) POC Glucose (mg/dL) 142 H 137 H (70-110) mg/dL Hemoglobin A1c (<=6.0) % Calcium (8.7-10.3) mg/dL 10/27/22 Range/Units 20:50 WBC (4.50-10.00) X 10*3/uL RBC (4.40-5.60) X 10*6/uL Hgb (13.0-17.0) d/dL Hct (39.6-50.0) % MCH (27.0-32.0) pg MCHC (32.0-37.0) d/dL RDW (11.5-14.5) % Neutrophils # (1.80-7.70) X 10*3/uL Anion Gap (4.00-12.00) mmol/L BUN (9.0-27.0) mg/dL Creatinine (0.6-1.5) mg/dL Est GFR (CKD-EPI) (>=60) POC Glucose (mg/dL) 226 H (70-110) mg/dL Hemoglobin A1c (<=6.0) % Calcium (8.7-10.3) mg/dL Assessment and Plan (1) Chronic anemia Narrative/Plan: This is 72-year-old male who came in with shortness of breath exacerbated by supine position with multiple comorbidities. Patient has history of coronary artery disease and recent stenting on Plavix and Eliquis. Has long-standing history of chronic anemia, congestive heart failure was admitted with acute on chronic congestive heart failure. The patient was noted to be anemic with hemoglobin of 9.0 on admission with a drop to 7.9 back up to 8.7 today. Patient's occult stool negative, he has no signs or symptoms of a GI bleed. No previous history of GI bleed, peptic ulcer disease and no previous history of upper endoscopy. States he has had a colonoscopies unsure of last date. No records available at this time. Patient is confused today again with multiple comorbidities. Patient likely has anemia of chronic disease, he does have some component of iron deficiency anemia unclear etiology. Recommend iron infusion at this time. Patient with fever of unknown origin, with acute on chronic CHF. Defer endoscopic evaluation at this time. Current Visit: Yes Status: Acute Code(s): D64.9 - ANEMIA, UNSPECIFIED SNOMED Code(s): 426501771 (2) Chronic kidney disease Current Visit: Yes Status: Acute Code(s): N18.9 - CHRONIC KIDNEY DISEASE, UNSPECIFIED SNOMED Code(s): 004371799 (3) Diabetes mellitus Current Visit: Yes Status: Acute Code(s): E11.9 - TYPE 2 DIABETES MELLITUS WITHOUT COMPLICATIONS SNOMED Code(s): 52123669 (4) Coronary artery disease Current Visit: Yes Status: Acute Code(s): I25.10 - ATHSCL HEART DISEASE OF [place] CORONARY ARTERY W/O ANG PCTRS SNOMED Code(s): 77361554 (5) History of above-knee amputation of both lower extremities Current Visit: Yes Status: Acute Code(s): Z89.611 - ACQUIRED ABSENCE OF RIGHT LEG ABOVE KNEE; Z89.612 - ACQUIRED ABSENCE OF LEFT LEG ABOVE KNEE SNOMED Code(s): 404608437251497 (6) CHF (congestive heart failure) Current Visit: Yes Status: Acute Code(s): I50.9 - HEART FAILURE, UNSPECIFIED SNOMED Code(s): 96364189 Plan: 1. Continue symptomatic and supportive care and 2. Diet as tolerated 3. Iron studies were ordered and reviewed 4. Patient currently getting IV iron ordered by primary medical team 5. The patient without any signs of GI bleed, likely anemia of chronic disease. We'll defer endoscopic evaluation at this time due to patient's fever, CHF 6. Recommend outpatient follow-up with gastroenterology if patient's anemia persists or hemoglobin drops Thank you for this consultation, we will continue to follow. Dr. Justin Morgan I agree with the dictator's note, documented as a scribe by Pamela Kinney.
[2022-10-28] MEDS ORDERED: IBUPROFEN 400 MG TAB PO PRN (14:57)
--- NOTE | 2022-10-28 14:57 | P.PN ---
Subjective Progress Note Date: 10/28/22 72-year-old male patient with known history of diabetes mellitus controlled with insulin, hypertension, hyperlipidemia and severe 2 vessel coronary artery disease and CHF, recently underwent cardiac catheterization a few weeks ago which showed severe disease involving right coronary artery as well as LAD; patient underwent stenting of right coronary artery at that time followed by PCI of LAD on 10/17/22, was recently discharged. Patient was all right this morning when he woke up with worsening shortness of breath. Patient states shortness of breath is present at rest and is worsened by laying flat. Denies any chest pain. Denies any swelling of any extremities. Patient has been compliant with his diuretics. Complaining of PND. Denies any fever or chills. Denies any complaint of cough. Denies any nausea, vomiting abdominal pain. Because of this shortness of breath. Patient came to the ER Initial lab work done in the ER showed WBC 9.6, hemoglobin 7.9, platelet count 255, sodium 140, potassium 4.4, BUN 40, creatinine 1.82 Chest x-ray done in the ER showed pulmonary vascular congestion Patient admitted to medicine service . Patient seen and examined. Denies any blood in the stools. Eliquis on hold, will get GI evaluation for anemia 10/28. Patient seen and examined. Patient is confused this morning, hallucinating. Also started spiking fevers REVIEW OF SYSTEMS: Cannot be obtained from the patient's current mental status PHYSICAL EXAMINATION: GENERAL: The patient is alert to self, not in any acute distress. Well developed, well nourished. HEENT: Pupils are round and equally reacting to light. EOMI. No scleral icterus. No conjunctival pallor. Normocephalic, atraumatic. No pharyngeal erythema. No thyromegaly. CARDIOVASCULAR: S1 and S2 present. No murmurs, rubs, or gallops. PULMONARY: Chest is clear to auscultation, no wheezing or crackles. ABDOMEN: Soft, nontender, nondistended, normoactive bowel sounds. No palpable organomegaly. MUSCULOSKELETAL: No joint swelling or deformity. EXTREMITIES: Bilateral lower extremity amputations seen NEUROLOGICAL: Gross neurological examination did not reveal any focal deficits. SKIN: No rashes. 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 Continue same treatment. Continue with symptomatic treatment. Resume home medication. Monitor labs and vitals. DVT and GI prophylaxis. Further recommendations as per clinical course of the patient Dictation was produced using [employer] dictation software. please excuse any grammatical, word or spelling errors. Objective - Vital Signs Vital signs: Vital Signs Temp 102.1 F H 10/28/22 13:50 Pulse 81 10/28/22 12:27 Resp 20 10/28/22 12:27 BP 193/54 10/28/22 12:27 Pulse Ox 98 10/28/22 12:27 FiO2 Intake & Output 10/27/22 10/28/22 10/28/22 18:59 06:59 18:59 Output Total 1200 2400 Balance -1200 -2400 Weight 121 kg 117 kg Output: Urine 1200 2400 Other: Voiding Method External Catheter External Catheter External Catheter # Voids 2 - Labs CBC & Chem 7: 10/28/22 05:36 10/28/22 05:36 Labs: Abnormal Lab Results - Last 24 Hours (Table) 10/26/22 10/26/22 10/27/22 Range/Units 01:44 12:57 14:59 WBC 11.3 H (3.8-10.6) k/uL RBC 3.29 L (4.30-5.90) m/uL Hgb 9.0 L (13.0-17.5) gm/dL Hct 28.2 L (39.0-53.0) % MCH (27.0-32.0) pg MCHC (32.0-37.0) d/dL RDW 16.8 H (11.5-15.5) % Neutrophils # (1.80-7.70) X 10*3/uL Lymphocytes # (0.90-5.00) X 10*3/uL Anion Gap (4.00-12.00) mmol/L Creatinine (0.6-1.5) mg/dL Est GFR (CKD-EPI) (>=60) POC Glucose (mg/dL) (70-110) mg/dL Hemoglobin A1c 8.1 H (<=6.0) % Calcium (8.7-10.3) mg/dL Iron (65-175) UG/DL % Saturation (15.00-50.00) Transferrin (204.0-354.0) mg/dL Albumin (3.8-4.9) d/dL Albumin/Globulin Ratio (1.60-3.17) Ratio RBC Folate 1,208 H (280 - 791) ng/mL 10/27/22 10/27/22 10/28/22 Range/Units 17:10 20:50 05:36 WBC (3.8-10.6) k/uL RBC (4.30-5.90) m/uL Hgb (13.0-17.5) gm/dL Hct (39.0-53.0) % MCH (27.0-32.0) pg MCHC (32.0-37.0) d/dL RDW (11.5-15.5) % Neutrophils # (1.80-7.70) X 10*3/uL Lymphocytes # (0.90-5.00) X 10*3/uL Anion Gap 13.50 H (4.00-12.00) mmol/L Creatinine 1.7 H (0.6-1.5) mg/dL Est GFR (CKD-EPI) 43 L (>=60) POC Glucose (mg/dL) 137 H 226 H (70-110) mg/dL Hemoglobin A1c (<=6.0) % Calcium 8.6 L (8.7-10.3) mg/dL Iron 29 L (65-175) UG/DL % Saturation 10.58 L (15.00-50.00) Transferrin 196.0 L (204.0-354.0) mg/dL Albumin 3.7 L (3.8-4.9) d/dL Albumin/Globulin Ratio 1.28 L (1.60-3.17) Ratio RBC Folate (280 - 791) ng/mL 10/28/22 10/28/22 10/28/22 Range/Units 05:36 11:48 12:24 WBC 10.77 H (3.8-10.6) k/uL RBC 3.36 L (4.30-5.90) m/uL Hgb 8.7 L (13.0-17.5) gm/dL Hct 28.6 L (39.0-53.0) % MCH 25.9 L (27.0-32.0) pg MCHC 30.4 L (32.0-37.0) d/dL RDW 17.0 H (11.5-15.5) % Neutrophils # 8.96 H (1.80-7.70) X 10*3/uL Lymphocytes # 0.80 L (0.90-5.00) X 10*3/uL Anion Gap (4.00-12.00) mmol/L Creatinine (0.6-1.5) mg/dL Est GFR (CKD-EPI) (>=60) POC Glucose (mg/dL) 194 H 156 H (70-110) mg/dL Hemoglobin A1c (<=6.0) % Calcium (8.7-10.3) mg/dL Iron (65-175) UG/DL % Saturation (15.00-50.00) Transferrin (204.0-354.0) mg/dL Albumin (3.8-4.9) d/dL Albumin/Globulin Ratio (1.60-3.17) Ratio RBC Folate (280 - 791) ng/mL
--- NOTE | 2022-10-28 15:07 | XR ---
EXAMINATION TYPE: XR chest 1V DATE OF EXAM: 10/28/2022 COMPARISON: 10/26/2022 HISTORY: Cough FINDINGS: There are bilateral pleural effusions with cardiomegaly and bibasilar infiltrate. There is a diffuse interstitial pattern. Arthropathy of the AC joints. Hypertrophic and degenerative changes spine. IMPRESSION: 1. Favor CHF over pneumonia. Correlate clinically.
[2022-10-28] MEDS: hydrALAZINE HCL 50 MG TAB PO SCH ×2 (15:47→21:00)
[2022-10-28] MEDS: FUROSEMIDE 40 MG TAB PO SCH (15:47)
[2022-10-28] MEDS ORDERED: PIPERACILLIN-TAZOBACTAM 3.375 GM in SODIUM CHLORIDE 0.9% 100 ML IVPB SCH (16:15)
[2022-10-28] MEDS ORDERED: VANCOMYCIN IV PER PHARMACY 1 EACH MISC MISCELLANE PRN (16:38)
[2022-10-28 17:04] LABS: Glucose,Whole Blood 154 mg/dL (70-110)
[2022-10-28 17:43] LABS: Appearance,Urine Clear (Clear); Bacteria,Urine Rare /hpf; Bilirubin,Urine Negative (Negative); Blood,Urine Negative (Negative); Color,Urine Yellow; Glucose,Urine (UA) 4+ (Negative); Ketones,Urine Negative (Negative); Leukocyte Esterase,Urine Large (Negative); Nitrite,Urine Positive (Negative); Protein,Urine Trace (Negative); RBC,Urine <1 /hpf (0-5); Specific Gravity,Urine 1.011 (1.001-1.035); Squamous Epithelial Cell,Urine <1 /hpf (0-4); Urobilinogen,Urine <2.0 mg/dL (<2.0); WBC,Urine 100 /hpf (0-5)
[2022-10-28] MEDS ORDERED: VANCOMYCIN 1,750 MG in SODIUM CHLORIDE 0.9% 500 ML 500 ML IVPB ONE (18:00)
[2022-10-28] MEDS: ATORVASTATIN 80 MG TAB PO SCH (21:00)
[2022-10-28] MEDS: traZODone HCL 50 MG TAB PO SCH (21:00)
[2022-10-28 21:04] LABS: Glucose,Whole Blood 136 mg/dL (70-110)
--- NOTE | 2022-10-28 22:40 | P.CONS ---
History of Present Illness - Reason for Consult Consult date: 10/28/22 - History of Present Illness Patient is a 72-year-old male with a past medical history significant for diabetes mellitus hypertension hyperlipidemia in this patient with a history of diabetic foot infection requiring bilateral [id number] amputation patient recently underwent cardiac cath and did have a evidence of severe CAD status post stenting of the LAD on 10/17/2022 patient was discharged home presenting back to the hospital 10/26/2022 concerning for worsening shortness of breath which was given at rest worsened with lying flat. Denies having any chest pain or any cough and no sputum production on presentation to the hospital the patient was afebrile however the patient did spike a fever of 102.8 F this afternoon patient denies any headache or URI symptoms no chest pain still complaining of shortness of breath denies any cough. 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 Year Discovered:: 01/16/20 MDRO Source:: Left LEG Past Surgical History: Heart Catheterization Additional Past Surgical History / Comment(s): bilateral great toes amputated, 2nd toe lt foot partial amputation, multiple debridements of venous ulcers, colonoscopy, surgery as a child for undescended testicle., ABOVE THE KNEE AMPUTATION RIGHT LEG (JUNE 2017-[facility]) Past Anesthesia/Blood Transfusion Reactions: No Reported Reaction Date of Last Stent Placement:: 10/17/2022 Past Psychological History: Anxiety, Depression Smoking Status: Current every day smoker Past Alcohol Use History: Occasional Past Drug Use History: None Reported - Past Family History Father Family Medical History: Cancer Additional Family Medical History / Comment(s): Father from brain cancer Mother Family Medical History: Eye Disorder Additional Family Medical History / Comment(s): Glaucoma. Mother is . Medications and Allergies Home Medications Medication Instructions Recorded Confirmed Type Escitalopram Oxalate [Lexapro] 10 mg PO DAILY 11/09/17 10/26/22 History traZODone HCL 50 mg PO HS 11/09/17 10/26/22 History Acetaminophen [Tylenol Arthritis] 650 mg PO Q6H PRN 09/29/22 10/26/22 History Atorvastatin [Lipitor] 80 mg PO DAILY 09/29/22 10/26/22 History Budesonide [Pulmicort] 0.5 mg INHALATION RT-BID 09/29/22 10/26/22 History Cholecalciferol [Vitamin D3 (25 25 mcg PO DAILY 09/29/22 10/26/22 History Mcg = 1000 Iu)] Famotidine [Pepcid] 20 mg PO DAILY 09/29/22 10/26/22 History INSULIN LISPRO (HumaLOG) [humaLOG] 1 - 11 units SQ ACHS 09/29/22 10/26/22 History Insulin Glargine [Lantus Vial] 20 unit SQ BID-W/MEALS 09/29/22 10/26/22 History Ipratropium-Albuterol Nebulize 3 ml INHALATION RT-Q6H 09/29/22 10/26/22 History [Duoneb 0.5 mg-3 mg/3 ml Soln] Magnesium Oxide [Mag-Ox] 400 mg PO DAILY 09/29/22 10/26/22 History Multivitamins, Thera [Multivitamin 1 tab PO DAILY 09/29/22 10/26/22 History (formulary)] Sennosides [Senokot] 8.6 mg PO BID PRN 09/29/22 10/26/22 History Tamsulosin [Flomax] 0.4 mg PO DAILY 09/29/22 10/26/22 History hydrALAZINE HCL [Apresoline] 25 mg PO TID 09/29/22 10/26/22 History Apixaban [Eliquis] 5 mg PO BID tab 10/01/22 10/26/22 Rx Clopidogrel [Plavix] 75 mg PO DAILY #30 tab 10/01/22 10/26/22 Rx HYDROcodone/APAP 5-325MG [Gravelly 1 tab PO Q6HR PRN 3 Days #12 tab 10/01/22 10/26/22 Rx 5-325] NIFEdipine XL [Procardia XL] 90 mg PO DAILY #30 tab 10/01/22 10/26/22 Rx Nitroglycerin Sl Tabs [Nitrostat] 0.4 mg SUBLINGUAL Q5M PRN #30 tab 10/01/22 10/26/22 Rx Dapagliflozin Propanediol [Farxiga] 10 mg PO DAILY #30 tab 10/20/22 10/26/22 Rx Furosemide [Lasix] 40 mg PO DAILY #30 tab 10/20/22 10/26/22 Rx Losartan [Cozaar] 25 mg PO DAILY #30 tab 10/20/22 10/26/22 Rx Allergies Allergy/AdvReac Type Severity Reaction Status Date / Time No Known Allergies Allergy Verified 10/26/22 11:07 Physical Exam Vitals: Vital Signs Temp Pulse Pulse Resp BP BP Pulse Ox 10/28/22 15:45 80 129/63 10/28/22 14:57 100.3 F H 10/28/22 13:50 102.1 F H 10/28/22 12:27 102.9 F H 81 20 158/64 193/54 98 10/28/22 11:41 76 10/28/22 11:27 70 10/28/22 08:00 98.9 F 65 22 160/78 98 10/28/22 07:56 74 10/28/22 07:42 78 97 10/28/22 01:49 99.1 F 82 18 159/61 95 10/27/22 20:41 84 10/27/22 20:23 82 10/27/22 19:17 98.7 F 80 19 150/73 94 L Intake and Output 10/28/22 10/28/22 10/28/22 06:59 14:59 22:59 Output Total 1900 Balance -1900 Output: Urine 1900 Other: Voiding Method External Catheter Weight 117 kg Results CBC & Chem 7: 10/28/22 05:36 10/28/22 05:36 Labs: Abnormal Lab Results - Last 24 Hours (Table) 10/26/22 10/27/22 10/27/22 Range/Units 12:57 17:10 20:50 WBC (4.50-10.00) X 10*3/uL RBC (4.40-5.60) X 10*6/uL Hgb (13.0-17.0) d/dL Hct (39.6-50.0) % MCH (27.0-32.0) pg MCHC (32.0-37.0) d/dL RDW (11.5-14.5) % Neutrophils # (1.80-7.70) X 10*3/uL Lymphocytes # (0.90-5.00) X 10*3/uL Anion Gap (4.00-12.00) mmol/L Creatinine (0.6-1.5) mg/dL Est GFR (CKD-EPI) (>=60) POC Glucose (mg/dL) 137 H 226 H (70-110) mg/dL Calcium (8.7-10.3) mg/dL Iron (65-175) UG/DL % Saturation (15.00-50.00) Transferrin (204.0-354.0) mg/dL Albumin (3.8-4.9) d/dL Albumin/Globulin Ratio (1.60-3.17) Ratio RBC Folate 1,208 H (280 - 791) ng/mL 10/28/22 10/28/22 10/28/22 Range/Units 05:36 05:36 11:48 WBC 10.77 H (4.50-10.00) X 10*3/uL RBC 3.36 L (4.40-5.60) X 10*6/uL Hgb 8.7 L (13.0-17.0) d/dL Hct 28.6 L (39.6-50.0) % MCH 25.9 L (27.0-32.0) pg MCHC 30.4 L (32.0-37.0) d/dL RDW 17.0 H (11.5-14.5) % Neutrophils # 8.96 H (1.80-7.70) X 10*3/uL Lymphocytes # 0.80 L (0.90-5.00) X 10*3/uL Anion Gap 13.50 H (4.00-12.00) mmol/L Creatinine 1.7 H (0.6-1.5) mg/dL Est GFR (CKD-EPI) 43 L (>=60) POC Glucose (mg/dL) 194 H (70-110) mg/dL Calcium 8.6 L (8.7-10.3) mg/dL Iron 29 L (65-175) UG/DL % Saturation 10.58 L (15.00-50.00) Transferrin 196.0 L (204.0-354.0) mg/dL Albumin 3.7 L (3.8-4.9) d/dL Albumin/Globulin Ratio 1.28 L (1.60-3.17) Ratio RBC Folate (280 - 791) ng/mL 10/28/22 Range/Units 12:24 WBC (4.50-10.00) X 10*3/uL RBC (4.40-5.60) X 10*6/uL Hgb (13.0-17.0) d/dL Hct (39.6-50.0) % MCH (27.0-32.0) pg MCHC (32.0-37.0) d/dL RDW (11.5-14.5) % Neutrophils # (1.80-7.70) X 10*3/uL Lymphocytes # (0.90-5.00) X 10*3/uL Anion Gap (4.00-12.00) mmol/L Creatinine (0.6-1.5) mg/dL Est GFR (CKD-EPI) (>=60) POC Glucose (mg/dL) 156 H (70-110) mg/dL Calcium (8.7-10.3) mg/dL Iron (65-175) UG/DL % Saturation (15.00-50.00) Transferrin (204.0-354.0) mg/dL Albumin (3.8-4.9) d/dL Albumin/Globulin Ratio (1.60-3.17) Ratio RBC Folate (280 - 791) ng/mL Assessment and Plan Plan: 1patient with a nosocomial fever in this patient presenting to the hospital with shortness of breath likely related to CHF now with a fever started while in hospital source could be left upper extremity IV site cellulitis and will need to cover for the gram-positive skin monique to the likely pathogen such as MRSA. 2blood cultures obtained we will also check a CRP procalcitonin check a urine culture and marked area of the redness to left upper extremity. 3vancomycin pharmacy to dose with a target trough of 15 while watching kidney function and Vanco trough closely.. We will follow on clinical condition and cultures to further adjust medication if needed Thank you for this consultation we will follow the patient along with you Dictation was produced using [employer] dictation software. please excuse any grammatical, word or spelling errors. Time with Patient: Greater than 30
[2022-10-28] MEDS: CEFEPIME 2 GM in SODIUM CHLORIDE 0.9% 100 ML IVPB SCH (23:09)
[2022-10-29] MEDS: ACETAMINOPHEN TAB 325 MG TAB PO PRN ×3 (00:59→16:38)
[2022-10-29] MEDS: IPRATROPIUM-ALBUTEROL 3 ML NEB INHALATION SCH ×4 (01:09→20:06)
[2022-10-29] MEDS ORDERED: VANCOMYCIN 1,750 MG in SODIUM CHLORIDE 0.9% 500 ML 500 ML IVPB ONE (06:00)
[2022-10-29 06:56] LABS: African American GFR (CKD) 42 (>60 ml/min/1.73 sqM); Anion Gap 12 mmol/L; Blood Urea Nitrogen 29 mg/dL (9-20); Calcium 8.5 mg/dL (8.4-10.2); Carbon Dioxide 27 mmol/L (22-30); Chloride 100 mmol/L (98-107); Glucose 95 mg/dL (74-99); Non-African American GFR(CKD) 36 (>60 ml/min/1.73 sqM); Potassium 3.5 mmol/L (3.5-5.1); Sodium 139 mmol/L (137-145)
[2022-10-29 07:42] LABS: Glucose,Whole Blood 154 mg/dL (70-110)
[2022-10-29] MEDS: BUDESONIDE 0.5 MG/2 ML NEBU INHALATION SCH ×2 (08:42→20:06)
--- NOTE | 2022-10-29 10:16 | P.PN ---
Subjective HISTORY OF PRESENT ILLNESS: The patient is a 72-year-old male who multiple comorbid conditions, who follows in the office with Dr. Flynn. The patient was brought to the emergency room for increased shortness of breath. The patient had developed an acute onset of orthopnea prior to his presentation. The patient states after his recent stenting, he was in his usual state of health up until yesterday. He states he has had some nosebleeds. DIAGNOSTICS: EKG shows sinus rhythm with IVCD. No new ST or T wave abnormalities Chest x-ray shows pulmonary venous congestion with effusions and scattered infiltrates Lab data: WBC 9.6, hemoglobin 7.9, hematocrit 24.5, platelet 255, sodium 140, potassium 4.4, BUN 49, creatinine 1.8 to, AST 19, ALT 20, BNP 4630 10/27/2022 Patient examined this morning at the bedside. Patient denies chest pain or pressure. He reports mild shortness of breath. He states that he is close to feeling back to his baseline. He remains on IV Lasix. Kidney function from this morning is currently pending. Vital signs stable. Blood pressure 158/54. 10/28/2022 Patient examined this morning at the bedside. Patient denies chest pain or pressure. He denies shortness of breath. He's feels as though his breathing is back to his baseline. Blood pressures are elevated with a systolic in the 160s. 10/29/2022 Patient examined this morning at the bedside. Patient denies chest pain or pressure. He denies shortness of breath. The patient did develop a fever overnight. He was febrile this morning with a fever of 103.0. Infectious disease was consulted and he is receiving antibiotics for left upper extremity IV site cellulitis. PHYSICAL EXAM: VITAL SIGNS: Reviewed. GENERAL: Well-developed in no acute distress. NECK: Supple. No JVD or thyromegaly LUNGS: Respirations even and unlabored. Lungs diminished to auscultation bilaterally. HEART: Regular rate and rhythm. S1 and S2 heard. EXTREMITIES: Normal range of motion. No clubbing or cyanosis. Bilateral [id number] appendectomy. Left upper extremity erythema. ASSESSMENT: Fever Left upper extremity IV site cellulitis Acute on chronic heart failure with preserved ejection fraction euvolemic Coronary artery disease with recent stenting of the LAD and also RCA in September Paroxysmal atrial for relation Chronic kidney disease Diabetes Hypertension Peripheral arterial disease with bilateral [id number] amputations COPD with home oxygen use Objective sleep apnea Morbid obesity PLAN: Continue current cardiac medications Patient's beta dominguez was discontinued on recent admission secondary to bradycardia Patient was transitioned to oral Lasix yesterday Increase hydralazine to 75 mg 3 times a day as patient's systolic blood pressur es are ranging between [id number] Patients Eliquis placed on hold secondary to anemia and nosebleed. Resume when cleared by primary medicine. Further recommendations pending patient's course Nurse practitioner note has been reviewed by physician. Signing provider agrees with the documented findings, assessment, and plan of care. Objective - Vital Signs Vital signs: Vital Signs Temp 99.7 F H 10/29/22 08:16 Pulse 76 10/29/22 09:02 Resp 20 10/29/22 07:21 BP 158/58 10/29/22 08:16 Pulse Ox 93 L 10/29/22 07:21 FiO2 Intake & Output 10/28/22 10/29/22 10/29/22 18:59 06:59 18:59 Output Total 125 1050 Balance -125 -1050 Weight 115.5 kg Output: Urine 125 1050 Other: Voiding Method External Catheter External Catheter # Voids 1 - Labs CBC & Chem 7: 10/28/22 05:36 10/29/22 05:29 Labs: Abnormal Lab Results - Last 24 Hours (Table) 10/26/22 10/28/22 10/28/22 Range/Units 12:57 11:48 12:24 BUN (9-20) mg/dL Creatinine (0.66-1.25) mg/dL POC Glucose (mg/dL) 194 H 156 H (70-110) mg/dL RBC Folate 1,208 H (280 - 791) ng/mL Procalcitonin (0.02-0.09) ng/mL Urine Protein (Negative) Urine Glucose (UA) (Negative) Ur Leukocyte Esterase (Negative) Urine WBC (0-5) /hpf Urine Bacteria (None) /hpf 10/28/22 10/28/22 10/28/22 Range/Units 14:56 17:03 17:04 BUN (9-20) mg/dL Creatinine (0.66-1.25) mg/dL POC Glucose (mg/dL) 154 H (70-110) mg/dL RBC Folate (280 - 791) ng/mL Procalcitonin 0.35 H (0.02-0.09) ng/mL Urine Protein Trace H (Negative) Urine Glucose (UA) 4+ H (Negative) Ur Leukocyte Esterase Large H (Negative) Urine WBC 100 H (0-5) /hpf Urine Bacteria Rare H (None) /hpf 10/28/22 10/29/22 10/29/22 Range/Units 21:02 05:29 07:41 BUN 29 H (9-20) mg/dL Creatinine 1.84 H (0.66-1.25) mg/dL POC Glucose (mg/dL) 136 H 154 H (70-110) mg/dL RBC Folate (280 - 791) ng/mL Procalcitonin (0.02-0.09) ng/mL Urine Protein (Negative) Urine Glucose (UA) (Negative) Ur Leukocyte Esterase (Negative) Urine WBC (0-5) /hpf Urine Bacteria (None) /hpf
[2022-10-29] MEDS: INSULIN ASPART (NovoLOG) 100 UNIT/ML VIAL SQ SCH ×4 (10:17→22:12)
[2022-10-29] MEDS: CEFEPIME 2 GM in SODIUM CHLORIDE 0.9% 100 ML IVPB SCH ×2 (10:18→22:12)
[2022-10-29] MEDS: MAGNESIUM OXIDE 400 MG TAB PO SCH (10:19)
[2022-10-29] MEDS: HEPARIN SODIUM,PORCINE 5,000 UNIT/ML 1 ML VIAL SQ SCH (10:19)
[2022-10-29] MEDS: FUROSEMIDE 40 MG TAB PO SCH ×2 (10:19→16:37)
[2022-10-29] MEDS: hydrALAZINE HCL 50 MG TAB PO SCH ×3 (10:20→22:11)
[2022-10-29] MEDS: TAMSULOSIN 0.4 MG CAP.ER.24H PO SCH (10:20)
[2022-10-29] MEDS: CHOLECALCIFEROL 25 MCG (1000 IU) TABLET PO SCH (10:20)
[2022-10-29] MEDS: MULTIVITAMINS, THERA 1 EACH TAB PO SCH (10:21)
[2022-10-29] MEDS: CLOPIDOGREL 75 MG TAB PO SCH (10:21)
[2022-10-29] MEDS: INSULIN DETEMIR (LEVEMIR) 100 UNIT/ML SYR SQ SCH ×2 (10:26→17:49)
[2022-10-29] MEDS: ESCITALOPRAM 10 MG TAB PO SCH (10:27)
[2022-10-29] MEDS: DAPAGLIFLOZIN PROPANEDIOL 10 MG TABLET PO SCH (10:27)
[2022-10-29] MEDS: NIFEdipine XL 90 MG TAB.ER.24 PO SCH (10:27)
[2022-10-29] MEDS: SODIUM FERRIC GLUCONAT-SUCROSE 125 MG in SODIUM CHLORIDE 0.9% 100 ML IVPB SCH (10:27)
[2022-10-29] MEDS: NYSTATIN 100,000 UNIT/GM POWD 15 GM TOPICAL SCH (10:33)
[2022-10-29 12:24] LABS: Glucose,Whole Blood 142 mg/dL (70-110)
--- NOTE | 2022-10-29 14:07 | P.PN ---
Subjective Progress Note Date: 10/29/22 Principal diagnosis: Anemia This is 72-year-old male with multiple comorbidities including COPD, coronary artery disease with recent stenting on Plavix and Eliquis, congestive heart failure, diabetes mellitus, hyperlipidemia, hypertension, chronic renal disease, and chronic anemia who presented to the emergency department with complaints of shortness of breath that worsened as he was lying flat. Patient was admitted for congestive heart failure and anemia. After review all of chart patient has a long-standing history of anemia since 2013. Anemia Patient's admitting he moglobin was 9.0 did have a drop on 10/26/2022 to 7.9 but has remained stable with a repeat today of 8.7. Patient denies any abdominal pain, nausea or vomiting. Denies any chest pain at this time but is short of breath. Patient is quite confused this morning believes that there are mice running around in his room and that it is 1973. He was aware that he was in the hospital and [place]. States he has had a prior colonoscopy although he is unsure when. Patient is not had any blood in his stool or black stool. He had a stool occult was negative. Eliquis currently on hold. Patient admitted with acute on chronic congestive heart failure. Patient denies any previous history of GI ble ed. Denies any previous history of peptic ulcer disease or upper endoscopy. The patient underwent echocardiogram that showed normal LV systolic function, severe mitral annular calcification with mild mitral regurgitation and mild aortic regurgitation. Cardiology is following. 10/29/2022 Patient seen and examined today as a follow-up. Denies any abdominal pain, nausea, vomiting. Denies any shortness breath or chest pain at this time. Patient continues to be febrile with a max temp of 103.0. Patient with positive blood cultures for gram-positive cocci Objective - Vital Signs Vital signs: Vital Signs Temp 98.9 F 10/29/22 12:05 Pulse 80 10/29/22 12:15 Resp 19 10/29/22 12:05 BP 129/57 10/29/22 12:05 Pulse Ox 95 10/29/22 12:05 FiO2 Intake & Output 10/28/22 10/29/22 10/29/22 18:59 06:59 18:59 Output Total 125 1050 Balance -125 -1050 Weight 115.5 kg Output: Urine 125 1050 Other: Voiding Method External Catheter External Catheter External Catheter # Voids 1 - Exam General appearance: The patient is alert, oriented, appears in no acute distress. HET: Head is normocephalic and atraumatic. Conjunctiva pink. Sclera anicteric. Neck: Supple without lymphadenopathy. Abdomen: Soft, nontender, nondistended with bowel sounds. No guarding or rigidity. Extremities: Normal skin color and turgor. No pedal edema Skin: No rashes, no jaundice Neurological: No focal deficits. Alert and oriented. - Labs CBC & Chem 7: 10/28/22 05:36 10/29/22 05:29 Labs: Abnormal Lab Results - Last 24 Hours (Table) 10/28/22 10/28/22 10/28/22 Range/Units 14:56 17:03 17:04 BUN (9-20) mg/dL Creatinine (0.66-1.25) mg/dL POC Glucose (mg/dL) 154 H (70-110) mg/dL Procalcitonin 0.35 H (0.02-0.09) ng/mL Urine Protein Trace H (Negative) Urine Glucose (UA) 4+ H (Negative) Ur Leukocyte Esterase Large H (Negative) Urine WBC 100 H (0-5) /hpf Urine Bacteria Rare H (None) /hpf 10/28/22 10/29/22 10/29/22 Range/Units 21:02 05:29 07:41 BUN 29 H (9-20) mg/dL Creatinine 1.84 H (0.66-1.25) mg/dL POC Glucose (mg/dL) 136 H 154 H (70-110) mg/dL Procalcitonin (0.02-0.09) ng/mL Urine Protein (Negative) Urine Glucose (UA) (Negative) Ur Leukocyte Esterase (Negative) Urine WBC (0-5) /hpf Urine Bacteria (None) /hpf 10/29/22 Range/Units 12:22 BUN (9-20) mg/dL Creatinine (0.66-1.25) mg/dL POC Glucose (mg/dL) 142 H (70-110) mg/dL Procalcitonin (0.02-0.09) ng/mL Urine Protein (Negative) Urine Glucose (UA) (Negative) Ur Leukocyte Esterase (Negative) Urine WBC (0-5) /hpf Urine Bacteria (None) /hpf Microbiology - Last 24 Hours (Table) 10/28/22 14:56 Blood Culture Gram Stain - Preliminary Blood Assessment and Plan (1) Chronic anemia Narrative/Plan: This is 72-year-old male who came in with shortness of breath exacerbated by supine position with multiple comorbidities. Patient has history of coronary artery disease and recent stenting on Plavix and Eliquis. Has long-standing history of chronic anemia, congestive heart failure was admitted with acute on chronic congestive heart failure. The patient was noted to be anemic with hemoglobin of 9.0 on admission with a drop to 7.9 back up to 8.7 today. Patient's occult stool negative, he has no signs or symptoms of a GI bleed. No previous history of GI bleed, peptic ulcer disease and no previous history of upper endoscopy. States he has had a colonoscopies unsure of last date. No records available at this time. Patient is confused today again with multiple comorbidities. Patient likely has anemia of chronic disease, he does have some component of iron deficiency anemia unclear etiology. Recommend iron infusion at this time. Patient with fever of unknown origin, with acute on chronic CHF. Defer endoscopic evaluation at this time. Current Visit: Yes Status: Acute Code(s): D64.9 - ANEMIA, UNSPECIFIED SNOMED Code(s): 069512285 (2) Chronic kidney disease Current Visit: Yes Status: Acute Code(s): N18.9 - CHRONIC KIDNEY DISEASE, UNSPECIFIED SNOMED Code(s): 225390972 (3) Diabetes mellitus Current Visit: Yes Status: Acute Code(s): E11.9 - TYPE 2 DIABETES MELLITUS WITHOUT COMPLICATIONS SNOMED Code(s): 99433999 (4) Coronary artery disease Current Visit: Yes Status: Acute Code(s): I25.10 - ATHSCL HEART DISEASE OF [place] CORONARY ARTERY W/O ANG PCTRS SNOMED Code(s): 15447550 (5) History of above-knee amputation of both lower extremities Current Visit: Yes Status: Acute Code(s): Z89.611 - ACQUIRED ABSENCE OF RIGHT LEG ABOVE KNEE; Z89.612 - ACQUIRED ABSENCE OF LEFT LEG ABOVE KNEE SNOMED Code(s): 200247697526371 (6) CHF (congestive heart failure) Current Visit: Yes Status: Acute Code(s): I50.9 - HEART FAILURE, UNSPECIFIED SNOMED Code(s): 29613792 Plan: 1. Continue symptomatic and supportive care and 2. Diet as tolerated 3. Iron studies were ordered and reviewed 4. The patient without any signs of GI bleed, likely anemia of chronic disease. We'll defer endoscopic evaluation at this time due to patient's fever, CHF 5. Recommend outpatient follow-up with gastroenterology if patient's anemia persists or hemoglobin drops 6. Continue medical management per primary medical team Thank you for this consultation, we will sign off at this time. Dr. Justin Morgan I agree with the dictator's note, documented as a scribe by Pamela Kinney.
--- NOTE | 2022-10-29 14:53 | P.PN ---
Subjective Progress Note Date: 10/29/22 72-year-old male patient with known history of diabetes mellitus controlled with insulin, hypertension, hyperlipidemia and severe 2 vessel coronary artery disease and CHF, recently underwent cardiac catheterization a few weeks ago which showed severe disease involving right coronary artery as well as LAD; patient underwent stenting of right coronary artery at that time followed by PCI of LAD on 10/17/22, was recently discharged. Patient was all right this morning when he woke up with worsening shortness of breath. Patient states shortness of breath is present at rest and is worsened by laying flat. Denies any chest pain. Denies any swelling of any extremities. Patient has been compliant with his diuretics. Complaining of PND. Denies any fever or chills. Denies any complaint of cough. Denies any nausea, vomiting abdominal pain. Because of this shortness of breath. Patient came to the ER Initial lab work done in the ER showed WBC 9.6, hemoglobin 7.9, platelet count 255, sodium 140, potassium 4.4, BUN 40, creatinine 1.82 Chest x-ray done in the ER showed pulmonary vascular congestion Patient admitted to medicine service . Patient seen and examined. Denies any blood in the stools. Eliquis on hold, will get GI evaluation for anemia 10/28. Patient seen and examined. Patient is confused this morning, hallucinating. Also started spiking fevers 10/29. Patient seen and examined. Less irritable and agitated compared to yesterday. Spiking fevers overnight with T-max of 103 REVIEW OF SYSTEMS: Cannot be obtained from the patient's current mental status PHYSICAL EXAMINATION: GENERAL: The patient is alert to self, not in any acute distress. Well developed, well nourished. HEENT: Pupils are round and equally reacting to light. EOMI. No scleral icterus. No conjunctival pallor. Normocephalic, atraumatic. No pharyngeal erythema. No thyromegaly. CARDIOVASCULAR: S1 and S2 present. No murmurs, rubs, or gallops. PULMONARY: Chest is clear to auscultation, no wheezing or crackles. ABDOMEN: Soft, nontender, nondistended, normoactive bowel sounds. No palpable organomegaly. MUSCULOSKELETAL: No joint swelling or deformity. EXTREMITIES: Bilateral lower extremity amputations seen NEUROLOGICAL: Gross neurological examination did not reveal any focal deficits. SKIN: No rashes. 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 Continue same treatment. Continue with symptomatic treatment. Resume home medication. Monitor labs and vitals. DVT and GI prophylaxis. Further recommendations as per clinical course of the pat ient Dictation was produced using [employer] dictation software. please excuse any grammatical, word or spelling errors. Objective - Vital Signs Vital signs: Vital Signs Temp 98.9 F 10/29/22 12:05 Pulse 80 10/29/22 12:15 Resp 19 10/29/22 12:05 BP 129/57 10/29/22 12:05 Pulse Ox 95 10/29/22 12:05 FiO2 Intake & Output 10/28/22 10/29/22 10/29/22 18:59 06:59 18:59 Output Total 125 1050 Balance -125 -1050 Weight 115.5 kg Output: Urine 125 1050 Other: Voiding Method External Catheter External Catheter External Catheter # Voids 1 - Labs CBC & Chem 7: 10/28/22 05:36 10/29/22 05:29 Labs: Abnormal Lab Results - Last 24 Hours (Table) 10/28/22 10/28/22 10/28/22 Range/Units 14:56 17:03 17:04 BUN (9-20) mg/dL Creatinine (0.66-1.25) mg/dL POC Glucose (mg/dL) 154 H (70-110) mg/dL Procalcitonin 0.35 H (0.02-0.09) ng/mL Urine Protein Trace H (Negative) Urine Glucose (UA) 4+ H (Negative) Ur Leukocyte Esterase Large H (Negative) Urine WBC 100 H (0-5) /hpf Urine Bacteria Rare H (None) /hpf 10/28/22 10/29/22 10/29/22 Range/Units 21:02 05:29 07:41 BUN 29 H (9-20) mg/dL Creatinine 1.84 H (0.66-1.25) mg/dL POC Glucose (mg/dL) 136 H 154 H (70-110) mg/dL Procalcitonin (0.02-0.09) ng/mL Urine Protein (Negative) Urine Glucose (UA) (Negative) Ur Leukocyte Esterase (Negative) Urine WBC (0-5) /hpf Urine Bacteria (None) /hpf 10/29/22 Range/Units 12:22 BUN (9-20) mg/dL Creatinine (0.66-1.25) mg/dL POC Glucose (mg/dL) 142 H (70-110) mg/dL Procalcitonin (0.02-0.09) ng/mL Urine Protein (Negative) Urine Glucose (UA) (Negative) Ur Leukocyte Esterase (Negative) Urine WBC (0-5) /hpf Urine Bacteria (None) /hpf Microbiology - Last 24 Hours (Table) 10/28/22 14:56 Blood Culture Gram Stain - Preliminary Blood
[2022-10-29 17:14] LABS: Glucose,Whole Blood 101 mg/dL (70-110)
[2022-10-29] MEDS: HYDROcodone/APAP 5-325MG 1 EACH TAB PO PRN (18:20)
[2022-10-29 20:19] LABS: Glucose,Whole Blood 185 mg/dL (70-110)
[2022-10-29] MEDS ORDERED: IPRATROPIUM-ALBUTEROL 3 ML NEB INHALATION PRN (20:56)
[2022-10-29] MEDS: traZODone HCL 50 MG TAB PO SCH (22:11)
[2022-10-29] MEDS: ATORVASTATIN 80 MG TAB PO SCH (22:11)
[2022-10-29] MEDS: APIXABAN 5 MG TAB PO SCH (22:11)
[2022-10-30] MEDS: HYDROcodone/APAP 5-325MG 1 EACH TAB PO PRN ×4 (04:20→23:34)
[2022-10-30] MEDS: NYSTATIN 100,000 UNIT/GM POWD 15 GM TOPICAL SCH ×3 (04:21→21:05)
[2022-10-30 07:07] LABS: Glucose,Whole Blood 92 mg/dL (70-110)
[2022-10-30] MEDS: BUDESONIDE 0.5 MG/2 ML NEBU INHALATION SCH ×2 (07:32→19:58)
[2022-10-30] MEDS: IPRATROPIUM-ALBUTEROL 3 ML NEB INHALATION SCH ×4 (07:32→19:58)
[2022-10-30] MEDS: INSULIN ASPART (NovoLOG) 100 UNIT/ML VIAL SQ SCH ×4 (07:46→21:05)
[2022-10-30] MEDS: FUROSEMIDE 40 MG TAB PO SCH ×2 (08:36→15:06)
[2022-10-30] MEDS: MULTIVITAMINS, THERA 1 EACH TAB PO SCH (08:36)
[2022-10-30] MEDS: MAGNESIUM OXIDE 400 MG TAB PO SCH (08:36)
[2022-10-30] MEDS: CHOLECALCIFEROL 25 MCG (1000 IU) TABLET PO SCH (08:36)
[2022-10-30] MEDS: ESCITALOPRAM 10 MG TAB PO SCH (08:36)
[2022-10-30] MEDS: NIFEdipine XL 90 MG TAB.ER.24 PO SCH (08:37)
[2022-10-30] MEDS: hydrALAZINE HCL 50 MG TAB PO SCH ×3 (08:37→21:05)
[2022-10-30] MEDS: TAMSULOSIN 0.4 MG CAP.ER.24H PO SCH (08:37)
[2022-10-30] MEDS: CLOPIDOGREL 75 MG TAB PO SCH (08:37)
[2022-10-30] MEDS: DAPAGLIFLOZIN PROPANEDIOL 10 MG TABLET PO SCH (08:37)
[2022-10-30] MEDS: INSULIN DETEMIR (LEVEMIR) 100 UNIT/ML SYR SQ SCH ×2 (08:38→17:57)
[2022-10-30] MEDS: SODIUM FERRIC GLUCONAT-SUCROSE 125 MG in SODIUM CHLORIDE 0.9% 100 ML IVPB SCH (08:38)
[2022-10-30] MEDS: APIXABAN 5 MG TAB PO SCH ×2 (08:39→19:41)
[2022-10-30] MEDS: CEFEPIME 2 GM in SODIUM CHLORIDE 0.9% 100 ML IVPB SCH ×2 (08:39→21:04)
[2022-10-30 09:18] LABS: HCT 27.2 % (39.6-50.0); HGB 8.3 d/dL (13.0-17.0); MCH 26.3 pg (27.0-32.0); MCHC 30.5 d/dL (32.0-37.0); MCV 86.1 FL (80.0-97.0); Mean Platelet Volume 11.2 FL (9.5-12.2); NRBC Per 100 WBC 0 X 10*3/uL (0.00-0.01); Platelet Count 233 X 10*3/uL (140-440); RBC 3.16 X 10*6/uL (4.40-5.60); RDW 17.2 % (11.5-14.5); WBC 9.81 X 10*3/uL (4.50-10.00)
[2022-10-30 09:28] LABS: ALT 26 U/L (10-49); AST 61 U/L (14-35); Albumin 3.4 d/dL (3.8-4.9); Albumin/Globulin Ratio 1.17 Ratio (1.60-3.17); Alkaline Phosphatase 80 U/L (41-126); BUN/Creat Ratio 15.95 Ratio (12.00-20.00); Blood Urea Nitrogen 30.3 mg/dL (9.0-27.0); Calcium 8.2 mg/dL (8.7-10.3); Chloride 101 mmol/L (96-109); Globulin 2.9 d/dL (1.6-3.3); Glucose 84 mg/dL (70-110); Potassium 2.9 mmol/L (3.5-5.5); Sodium 141 mmol/L (135-145); Total Bilirubin 0.8 mg/dL (0.3-1.2); Total Protein 6.3 d/dL (6.2-8.2)
[2022-10-30] MEDS ORDERED: VANCOMYCIN 1,750 MG in SODIUM CHLORIDE 0.9% 500 ML 500 ML IVPB ONE (11:00)
[2022-10-30] MEDS ORDERED: Potassium Replacement Protocol 1 EACH MISC MISCELLANE PRN (11:49)
[2022-10-30 11:50] LABS: Glucose,Whole Blood 133 mg/dL (70-110)
--- NOTE | 2022-10-30 12:30 | P.PN ---
Subjective HISTORY OF PRESENT ILLNESS: The patient is a 72-year-old male who multiple comorbid conditions, who follows in the office with Dr. Flynn. The patient was brought to the emergency room for increased shortness of breath. The patient had developed an acute onset of orthopnea prior to his presentation. The patient states after his recent stenting, he was in his usual state of health up until yesterday. He states he has had some nosebleeds. DIAGNOSTICS: EKG shows sinus rhythm with IVCD. No new ST or T wave abnormalities Chest x-ray shows pulmonary venous congestion with effusions and scattered infiltrates Lab data: WBC 9.6, hemoglobin 7.9, hematocrit 24.5, platelet 255, sodium 140, potassium 4.4, BUN 49, creatinine 1.8 to, AST 19, ALT 20, BNP 4630 10/27/2022 Patient examined this morning at the bedside. Patient denies chest pain or pressure. He reports mild shortness of breath. He states that he is close to feeling back to his baseline. He remains on IV Lasix. Kidney function from this morning is currently pending. Vital signs stable. Blood pressure 158/54. 10/28/2022 Patient examined this morning at the bedside. Patient denies chest pain or pressure. He denies shortness of breath. He's feels as though his breathing is back to his baseline. Blood pressures are elevated with a systolic in the 160s. 10/29/2022 Patient examined this morning at the bedside. Patient denies chest pain or pressure. He denies shortness of breath. The patient did develop a fever overnight. He was febrile this morning with a fever of 103.0. Infectious disease was consulted and he is receiving antibiotics for left upper extremity IV site cellulitis. 10/30/2022 Patient examined this morning at the bedside. Patient denies chest pain or pressure. He denies shortness of breath. He denies dizziness or lightheadedness. Vital signs are stable. His anticoagulation has been resumed. PHYSICAL EXAM: VITAL SIGNS: Reviewed. GENERAL: Well-developed in no acute distress. NECK: Supple. No JVD or thyromegaly LUNGS: Respirations even and unlabored. Lungs diminished to auscultation bilaterally. HEART: Regular rate and rhythm. S1 and S2 heard. EXTREMITIES: Normal range of motion. No clubbing or cyanosis. Bilateral [id number] appendectomy. Left upper extremity erythema. ASSESSMENT: Fever Left upper extremity IV site cellulitis Acute on chronic heart failure with preserved ejection fraction euvolemic Coronary artery disease with recent stenting of the LAD and also RCA in September Paroxysmal atrial for relation Chronic kidney disease Diabetes Hypertension Peripheral arterial disease with bilateral yedlv-lef-lwmt amputations COPD with home oxygen use Objective sleep apnea Morbid obesity PLAN: Continue current cardiac medications Patient's beta dominguez was discontinued on recent admission secondary to bradyc ardia Patient's oral anticoagulation has been resumed Patient is stable from a cardiac standpoint with no further inpatient recommendations We will sign off. Please reconsult if needed. Nurse practitioner note has been reviewed by physician. Signing provider agrees with the documented findings, assessment, and plan of care. Objective - Vital Signs Vital signs: Vital Signs Temp 97.9 F 10/30/22 11:09 Pulse 72 10/30/22 11:13 Resp 20 10/30/22 11:09 BP 126/53 10/30/22 11:09 Pulse Ox 100 10/30/22 11:09 FiO2 Intake & Output 10/29/22 10/30/22 10/30/22 18:59 06:59 18:59 Output Total 850 750 Balance -850 -750 Weight 117 kg Output: Urine 850 750 Other: Voiding Method External Catheter External Catheter External Catheter # Voids 1 - Labs CBC & Chem 7: 10/30/22 06:03 10/30/22 06:03 Labs: Abnormal Lab Results - Last 24 Hours (Table) 10/29/22 10/30/22 10/30/22 Range/Units 20:17 06:03 06:03 RBC 3.16 L (4.40-5.60) X 10*6/uL Hgb 8.3 L (13.0-17.0) d/dL Hct 27.2 L (39.6-50.0) % MCH 26.3 L (27.0-32.0) pg MCHC 30.5 L (32.0-37.0) d/dL RDW 17.2 H (11.5-14.5) % Potassium 2.9 L (3.5-5.5) mmol/L BUN 30.3 H (9.0-27.0) mg/dL Creatinine 1.9 H (0.6-1.5) mg/dL Est GFR (CKD-EPI) 37 L (>=60) POC Glucose (mg/dL) 185 H (70-110) mg/dL Calcium 8.2 L (8.7-10.3) mg/dL AST 61 H (14-35) U/L Albumin 3.4 L (3.8-4.9) d/dL Albumin/Globulin Ratio 1.17 L (1.60-3.17) Ratio 10/30/22 Range/Units 11:48 RBC (4.40-5.60) X 10*6/uL Hgb (13.0-17.0) d/dL Hct (39.6-50.0) % MCH (27.0-32.0) pg MCHC (32.0-37.0) d/dL RDW (11.5-14.5) % Potassium (3.5-5.5) mmol/L BUN (9.0-27.0) mg/dL Creatinine (0.6-1.5) mg/dL Est GFR (CKD-EPI) (>=60) POC Glucose (mg/dL) 133 H (70-110) mg/dL Calcium (8.7-10.3) mg/dL AST (14-35) U/L Albumin (3.8-4.9) d/dL Albumin/Globulin Ratio (1.60-3.17) Ratio Microbiology - Last 24 Hours (Table) 10/28/22 14:56 Blood Culture Gram Stain - Preliminary Blood Blood Culture - Preliminary Presumptive MRSA
[2022-10-30] MEDS: POTASSIUM CHLORIDE ER 20 MEQ TAB.ER PO SCH ×2 (12:50→15:06)
--- NOTE | 2022-10-30 14:51 | P.PN ---
Subjective Progress Note Date: 10/30/22 72-year-old male patient with known history of diabetes mellitus controlled with insulin, hypertension, hyperlipidemia and severe 2 vessel coronary artery disease and CHF, recently underwent cardiac catheterization a few weeks ago which showed severe disease involving right coronary artery as well as LAD; patient underwent stenting of right coronary artery at that time followed by PCI of LAD on 10/17/22, was recently discharged. Patient was all right this morning when he woke up with worsening shortness of breath. Patient states shortness of breath is present at rest and is worsened by laying flat. Denies any chest pain. Denies any swelling of any extremities. Patient has been compliant with his diuretics. Complaining of PND. Denies any fever or chills. Denies any complaint of cough. Denies any nausea, vomiting abdominal pain. Because of this shortness of breath. Patient came to the ER Initial lab work done in the ER showed WBC 9.6, hemoglobin 7.9, platelet count 255, sodium 140, potassium 4.4, BUN 40, creatinine 1.82 Chest x-ray done in the ER showed pulmonary vascular congestion Patient admitted to medicine service . Patient seen and examined. Denies any blood in the stools. Eliquis on hold, will get GI evaluation for anemia 10/28. Patient seen and examined. Patient is confused this morning, hallucinating. Also started spiking fevers 10/29. Patient seen and examined. Less irritable and agitated compared to yesterday. Spiking fevers overnight with T-max of 103 10/30. Patient seen and examined. Daughter at the bedside. States patient is back to normal according to her. Patient is conversing well, does not look any acute distress. REVIEW OF SYSTEMS: Denies chest pain. Denies any nausea or vomiting Denies shortness of breath PHYSICAL EXAMINATION: GENERAL: The patient is alert , not in any acute distress. Well developed, well nourished. HEENT: Pupils are round and equally reacting to light. EOMI. No scleral icterus. No conjunctival pallor. Normocephalic, atraumatic. No pharyngeal erythema. No thyromegaly. CARDIOVASCULAR: S1 and S2 present. No murmurs, rubs, or gallops. PULMONARY: Chest is clear to auscultation, no wheezing or crackles. ABDOMEN: Soft, nontender, nondistended, normoactive bowel sounds. No palpable organomegaly. MUSCULOSKELETAL: No joint swelling or deformity. EXTREMITIES: Bilateral lower extremity amputations seen NEUROLOGICAL: Gross neurological examination did not reveal any focal deficits. SKIN: No rashes. 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 Continue same treatment. Continue with symptomatic treatment. Resume home medication. Monitor labs and vitals. DVT and GI prophylaxis. Further recommendations as per clinical course of the patient Dictation was produced using [employer] dictation software. please excuse any grammatical, word or spelling errors. Objective - Vital Signs Vital signs: Vital Signs Temp 97.9 F 10/30/22 11:09 Pulse 72 10/30/22 11:13 Resp 20 10/30/22 11:09 BP 126/53 10/30/22 11:09 Pulse Ox 100 10/30/22 11:09 FiO2 Intake & Output 10/29/22 10/30/22 10/30/22 18:59 06:59 18:59 Output Total 850 750 600 Balance -850 -750 -600 Weight 117 kg Output: Urine 850 750 600 Other: Voiding Method External Catheter External Catheter External Catheter # Voids 1 - Labs CBC & Chem 7: 10/30/22 06:03 10/30/22 06:03 Labs: Abnormal Lab Results - Last 24 Hours (Table) 10/29/22 10/30/22 10/30/22 Range/Units 20:17 06:03 06:03 RBC 3.16 L (4.40-5.60) X 10*6/uL Hgb 8.3 L (13.0-17.0) d/dL Hct 27.2 L (39.6-50.0) % MCH 26.3 L (27.0-32.0) pg MCHC 30.5 L (32.0-37.0) d/dL RDW 17.2 H (11.5-14.5) % Potassium 2.9 L (3.5-5.5) mmol/L BUN 30.3 H (9.0-27.0) mg/dL Creatinine 1.9 H (0.6-1.5) mg/dL Est GFR (CKD-EPI) 37 L (>=60) POC Glucose (mg/dL) 185 H (70-110) mg/dL Calcium 8.2 L (8.7-10.3) mg/dL AST 61 H (14-35) U/L Albumin 3.4 L (3.8-4.9) d/dL Albumin/Globulin Ratio 1.17 L (1.60-3.17) Ratio 10/30/22 Range/Units 11:48 RBC (4.40-5.60) X 10*6/uL Hgb (13.0-17.0) d/dL Hct (39.6-50.0) % MCH (27.0-32.0) pg MCHC (32.0-37.0) d/dL RDW (11.5-14.5) % Potassium (3.5-5.5) mmol/L BUN (9.0-27.0) mg/dL Creatinine (0.6-1.5) mg/dL Est GFR (CKD-EPI) (>=60) POC Glucose (mg/dL) 133 H (70-110) mg/dL Calcium (8.7-10.3) mg/dL AST (14-35) U/L Albumin (3.8-4.9) d/dL Albumin/Globulin Ratio (1.60-3.17) Ratio Microbiology - Last 24 Hours (Table) 10/28/22 14:56 Blood Culture Gram Stain - Preliminary Blood Blood Culture - Preliminary Presumptive MRSA
[2022-10-30 17:02] LABS: Glucose,Whole Blood 211 mg/dL (70-110)
[2022-10-30 20:09] LABS: Glucose,Whole Blood 182 mg/dL (70-110)
[2022-10-30] MEDS: ATORVASTATIN 80 MG TAB PO SCH (21:04)
[2022-10-30] MEDS: traZODone HCL 50 MG TAB PO SCH (21:05)
[2022-10-30] MEDS: ACETAMINOPHEN TAB 325 MG TAB PO PRN (21:06)
[2022-10-31 07:19] LABS: Glucose,Whole Blood 51 mg/dL (70-110)
[2022-10-31] MEDS: IPRATROPIUM-ALBUTEROL 3 ML NEB INHALATION SCH ×4 (07:32→20:53)
[2022-10-31] MEDS: BUDESONIDE 0.5 MG/2 ML NEBU INHALATION SCH ×2 (07:32→20:53)
[2022-10-31 07:50] LABS: Glucose,Whole Blood 87 mg/dL (70-110)
[2022-10-31] MEDS: INSULIN ASPART (NovoLOG) 100 UNIT/ML VIAL SQ SCH ×4 (07:51→20:46)
[2022-10-31] MEDS: INSULIN DETEMIR (LEVEMIR) 100 UNIT/ML SYR SQ SCH ×2 (07:52→17:23)
[2022-10-31 08:02] LABS: ALT 30 U/L (4-49); AST 64 U/L (17-59); African American GFR (CKD) 42 (>60 ml/min/1.73 sqM); Albumin 3.1 g/dL (3.5-5.0); Albumin/Globulin Ratio 0.9; Alkaline Phosphatase 90 U/L (38-126); Anion Gap 10 mmol/L; Blood Urea Nitrogen 34 mg/dL (9-20); Carbon Dioxide 26 mmol/L (22-30); Chloride 101 mmol/L (98-107); Globulin 3.6 g/dL; Non-African American GFR(CKD) 36 (>60 ml/min/1.73 sqM); Potassium 3.5 mmol/L (3.5-5.1); Sodium 137 mmol/L (137-145); Total Bilirubin 0.8 mg/dL (0.2-1.3); Total Protein 6.7 g/dL (6.3-8.2)
[2022-10-31 08:08] LABS: Vancomycin,Random 25.1 ug/mL
[2022-10-31 08:12] LABS: Glucose 42 mg/dL (74-99)
--- NOTE | 2022-10-31 08:22 | P.PN ---
Subjective Progress Note Date: 10/29/22 Principal diagnosis: Fever, IV site cellulitis and bacteremia Patient is a 72-year-old male with multiple comorbidities including diabetes peripheral vascular disease status post bilateral auixc-lly-phew amputation recently underwent cardiac cath subsequently present to hospital worsening shortness of breath and possible CHF patient did develop a fever and concern for left upper extremity IV site cellulitis. On today's evaluation that is 10/29/2022 patient did spike a fever this morning of 103 F patient is afebrile since then the patient is breathing comfortably a nd appreciated the cannula oxygen denies any chest pain some shortness with occasional cough no abdominal pain pain and swelling to the left upper arm has decreased in intensity Objective - Vital Signs Vital signs: Vital Signs Temp 98.9 F 10/29/22 12:05 Pulse 80 10/29/22 12:15 Resp 19 10/29/22 12:05 BP 129/57 10/29/22 12:05 Pulse Ox 95 10/29/22 12:05 FiO2 Intake & Output 10/28/22 10/29/22 10/29/22 18:59 06:59 18:59 Output Total 125 1050 Balance -125 -1050 Weight 115.5 kg Output: Urine 125 1050 Other: Voiding Method External Catheter External Catheter External Catheter # Voids 1 - Exam GENERAL DESCRIPTION: Elderly male lying in bed in no distress RESPIRATORY SYSTEM: Unlabored breathing , decreased breath sounds at bases HEART: S1 S2 regular rate and rhythm ,no loud murmurs ABDOMEN: Soft , no tenderness EXTREMITIES: Left antecubital fossa swelling and redness at the IV site has decreased in intensity - Labs CBC & Chem 7: 10/30/22 06:03 10/31/22 06:12 Labs: Abnormal Lab Results - Last 24 Hours (Table) 10/28/22 10/28/22 10/28/22 Range/Units 14:56 17:03 17:04 BUN (9-20) mg/dL Creatinine (0.66-1.25) mg/dL POC Glucose (mg/dL) 154 H (70-110) mg/dL Procalcitonin 0.35 H (0.02-0.09) ng/mL Urine Protein Trace H (Negative) Urine Glucose (UA) 4+ H (Negative) Ur Leukocyte Esterase Large H (Negative) Urine WBC 100 H (0-5) /hpf Urine Bacteria Rare H (None) /hpf 10/28/22 10/29/22 10/29/22 Range/Units 21:02 05:29 07:41 BUN 29 H (9-20) mg/dL Creatinine 1.84 H (0.66-1.25) mg/dL POC Glucose (mg/dL) 136 H 154 H (70-110) mg/dL Procalcitonin (0.02-0.09) ng/mL Urine Protein (Negative) Urine Glucose (UA) (Negative) Ur Leukocyte Esterase (Negative) Urine WBC (0-5) /hpf Urine Bacteria (None) /hpf 10/29/22 Range/Units 12:22 BUN (9-20) mg/dL Creatinine (0.66-1.25) mg/dL POC Glucose (mg/dL) 142 H (70-110) mg/dL Procalcitonin (0.02-0.09) ng/mL Urine Protein (Negative) Urine Glucose (UA) (Negative) Ur Leukocyte Esterase (Negative) Urine WBC (0-5) /hpf Urine Bacteria (None) /hpf Microbiology - Last 24 Hours (Table) 10/28/22 14:56 Blood Culture Gram Stain - Preliminary Blood Assessment and Plan (1) IV site infection Current Visit: Yes Status: Acute Code(s): T82.7XXA - INFECT/INFLM REACT D/T OTH CARDI/VASC DEV/IMPLNT/GRFT, INIT SNOMED Code(s): 298692819 (2) MRSA bacteremia Current Visit: Yes Status: Acute Code(s): R78.81 - BACTEREMIA; B95.62 - METHICILLIN RESIS STAPH INFCT CAUSING DISEASES CLASSD [facility] SNOMED Code(s): 83166568378634893 Plan: 1patient with a nosocomial fever in this patient presenting to the hospital with shortness of breath likely related to CHF now with a fever started while in hospital source could be left upper extremity IV site cellulitis and will need to cover for the gram-positive skin monique to the likely pathogen such as MRSA. 2Blood cultures coming positive with concern for MRSA patient also have a positive UA and urine cultures pending. 3we will keep the patient on vancomycin pharmacy to dose along with cefepime while waiting for the repeat cultures to be finalized Dictation was produced using [employer] dictation software. please excuse any grammatical, word or spelling errors. Time with Patient: Less than 30
--- NOTE | 2022-10-31 08:25 | P.PN ---
Subjective Progress Note Date: 10/30/22 Principal diagnosis: Fever, IV site cellulitis and bacteremia Patient is a 72-year-old male with multiple comorbidities including diabetes peripheral vascular disease status post bilateral obdxn-xka-amku amputation recently underwent cardiac cath subsequently present to hospital worsening shortness of breath and possible CHF patient did develop a fever and concern for left upper extremity IV site cellulitis. On today's evaluation that is 10/30/2022 patient is afebrile this morning, the patient is breathing comfortably on 3 L nasal cannula oxygen denies any chest pa in shortness of breath or cough no abdominal pain no diarrhea. Patient did have a creatinine of 1.84 vancomycin random is 25.1 blood culture with presumptive MRSA Objective - Vital Signs Vital signs: Vital Signs Temp 97.9 F 10/30/22 11:09 Pulse 76 10/30/22 15:46 Resp 20 10/30/22 11:09 BP 126/53 10/30/22 11:09 Pulse Ox 100 10/30/22 11:09 FiO2 Intake & Output 10/29/22 10/30/22 10/30/22 18:59 06:59 18:59 Output Total 850 750 600 Balance -850 -750 -600 Weight 117 kg Output: Urine 850 750 600 Other: Voiding Method External Catheter External Catheter External Catheter # Voids 1 - Exam GENERAL DESCRIPTION: Elderly male lying in bed in no distress RESPIRATORY SYSTEM: Unlabored breathing , decreased breath sounds at bases HEART: S1 S2 regular rate and rhythm ,no loud murmurs ABDOMEN: Soft , no tenderness EXTREMITIES: Left antecubital fossa swelling and redness at the IV site has decreased in intensity - Labs CBC & Chem 7: 10/30/22 06:03 10/31/22 06:12 Labs: Abnormal Lab Results - Last 24 Hours (Table) 10/29/22 10/30/22 10/30/22 Range/Units 20:17 06:03 06:03 RBC 3.16 L (4.40-5.60) X 10*6/uL Hgb 8.3 L (13.0-17.0) d/dL Hct 27.2 L (39.6-50.0) % MCH 26.3 L (27.0-32.0) pg MCHC 30.5 L (32.0-37.0) d/dL RDW 17.2 H (11.5-14.5) % Potassium 2.9 L (3.5-5.5) mmol/L BUN 30.3 H (9.0-27.0) mg/dL Creatinine 1.9 H (0.6-1.5) mg/dL Est GFR (CKD-EPI) 37 L (>=60) POC Glucose (mg/dL) 185 H (70-110) mg/dL Calcium 8.2 L (8.7-10.3) mg/dL AST 61 H (14-35) U/L Albumin 3.4 L (3.8-4.9) d/dL Albumin/Globulin Ratio 1.17 L (1.60-3.17) Ratio 10/30/22 Range/Units 11:48 RBC (4.40-5.60) X 10*6/uL Hgb (13.0-17.0) d/dL Hct (39.6-50.0) % MCH (27.0-32.0) pg MCHC (32.0-37.0) d/dL RDW (11.5-14.5) % Potassium (3.5-5.5) mmol/L BUN (9.0-27.0) mg/dL Creatinine (0.6-1.5) mg/dL Est GFR (CKD-EPI) (>=60) POC Glucose (mg/dL) 133 H (70-110) mg/dL Calcium (8.7-10.3) mg/dL AST (14-35) U/L Albumin (3.8-4.9) d/dL Albumin/Globulin Ratio (1.60-3.17) Ratio Microbiology - Last 24 Hours (Table) 10/28/22 14:56 Blood Culture Gram Stain - Preliminary Blood Blood Culture - Preliminary Presumptive MRSA Assessment and Plan (1) IV site infection Current Visit: Yes Status: Acute Code(s): T82.7XXA - INFECT/INFLM REACT D/T OTH CARDI/VASC DEV/IMPLNT/GRFT, INIT SNOMED Code(s): 178776884 (2) MRSA bacteremia Current Visit: Yes Status: Acute Code(s): R78.81 - BACTEREMIA; B95.62 - METHICILLIN RESIS STAPH INFCT CAUSING DISEASES CLASSD [facility] SNOMED Code(s): 37277056289439650 Plan: 1patient with a nosocomial fever in this patient presenting to the hospital with shortness of breath likely related to CHF now with a fever started while in hospital source could be left upper extremity IV site cellulitis and will need to cover for the gram-positive skin monique to the likely pathogen such as MRSA. 2Blood cultures coming positive With presumptive MRSA, sensitivities pending blood cultures will be repeated document clearance of bacteremia,. 3patient to continue vancomycin pharmacy to dose however due to monitor trough and kidney function closely because of his elevated creatinine, welfare case worker has been alerted that the patient will need IV antibiotic on discharge Dictation was produced using [employer] dictation software. please excuse any grammatical, word or spelling errors. Time with Patient: Less than 30
[2022-10-31] MEDS: SODIUM FERRIC GLUCONAT-SUCROSE 125 MG in SODIUM CHLORIDE 0.9% 100 ML IVPB SCH (08:45)
[2022-10-31] MEDS: MAGNESIUM OXIDE 400 MG TAB PO SCH (08:46)
[2022-10-31] MEDS: ESCITALOPRAM 10 MG TAB PO SCH (08:46)
[2022-10-31] MEDS: MULTIVITAMINS, THERA 1 EACH TAB PO SCH (08:46)
[2022-10-31] MEDS: APIXABAN 5 MG TAB PO SCH ×2 (08:46→20:46)
[2022-10-31] MEDS: FUROSEMIDE 40 MG TAB PO SCH ×2 (08:46→17:23)
[2022-10-31] MEDS: DAPAGLIFLOZIN PROPANEDIOL 10 MG TABLET PO SCH (08:46)
[2022-10-31] MEDS: CLOPIDOGREL 75 MG TAB PO SCH (08:46)
[2022-10-31] MEDS: TAMSULOSIN 0.4 MG CAP.ER.24H PO SCH (08:46)
[2022-10-31] MEDS: NIFEdipine XL 90 MG TAB.ER.24 PO SCH (08:46)
[2022-10-31] MEDS: CHOLECALCIFEROL 25 MCG (1000 IU) TABLET PO SCH (08:46)
[2022-10-31] MEDS: hydrALAZINE HCL 50 MG TAB PO SCH ×3 (08:46→22:36)
[2022-10-31] MEDS: CEFEPIME 2 GM in SODIUM CHLORIDE 0.9% 100 ML IVPB SCH (08:47)
[2022-10-31] MEDS: NYSTATIN 100,000 UNIT/GM POWD 15 GM TOPICAL SCH ×2 (08:49→20:46)
[2022-10-31 11:07] LABS: HCT 26.9 % (39.6-50.0); HGB 7.9 d/dL (13.0-17.0); MCH 25.7 pg (27.0-32.0); MCHC 29.4 d/dL (32.0-37.0); MCV 87.6 FL (80.0-97.0); NRBC Per 100 WBC 0 X 10*3/uL (0.00-0.01); Platelet Count 235 X 10*3/uL (140-440); RBC 3.07 X 10*6/uL (4.40-5.60); RDW 17.4 % (11.5-14.5); WBC 9.88 X 10*3/uL (4.50-10.00)
[2022-10-31 12:07] LABS: Glucose,Whole Blood 117 mg/dL (70-110)
--- NOTE | 2022-10-31 12:42 | P.PN ---
Subjective Progress Note Date: 10/31/22 72-year-old male patient with known history of diabetes mellitus controlled with insulin, hypertension, hyperlipidemia and severe 2 vessel coronary artery disease and CHF, recently underwent cardiac catheterization a few weeks ago which showed severe disease involving right coronary artery as well as LAD; patient underwent stenting of right coronary artery at that time followed by PCI of LAD on 10/17/22, was recently discharged. Patient was all right this morning when he woke up with worsening shortness of breath. Patient states shortness of breath is present at rest and is worsened by laying flat. Denies any chest pain. Denies any swelling of any extremities. Patient has been compliant with his diuretics. Complaining of PND. Denies any fever or chills. Denies any complaint of cough. Denies any nausea, vomiting abdominal pain. Because of this shortness of breath. Patient came to the ER Initial lab work done in the ER showed WBC 9.6, hemoglobin 7.9, platelet count 255, sodium 140, potassium 4.4, BUN 40, creatinine 1.82 Chest x-ray done in the ER showed pulmonary vascular congestion Patient admitted to medicine service . Patient seen and examined. Denies any blood in the stools. Eliquis on hold, will get GI evaluation for anemia 10/28. Patient seen and examined. Patient is confused this morning, hallucinating. Also started spiking fevers 10/29. Patient seen and examined. Less irritable and agitated compared to yesterday. Spiking fevers overnight with T-max of 103 10/30. Patient seen and examined. Daughter at the bedside. States patient is back to normal according to her. Patient is conversing well, does not look any acute distress. 10/31. Patient seen and examined. No acute issues overnight. Vital signs stable REVIEW OF SYSTEMS: denies any fever or chills Denies chest pain. Denies any nausea or vomiting Denies shortness of breath PHYSICAL EXAMINATION: GENERAL: The patient is alert , not in any acute distress. Well developed, well nourished. HEENT: Pupils are round and equally reacting to light. EOMI. No scleral icterus. No conjunctival pallor. Normocephalic, atraumatic. No pharyngeal erythema. No thyromegaly. CARDIOVASCULAR: S1 and S2 present. No murmurs, rubs, or gallops. PULMONARY: Chest is clear to auscultation, no wheezing or crackles. ABDOMEN: Soft, nontender, nondistended, normoactive bowel sounds. No palpable organomegaly. MUSCULOSKELETAL: No joint swelling or deformity. EXTREMITIES: Bilateral lower extremity amputations seen NEUROLOGICAL: Gross neurological examination did not reveal any focal deficits. SKIN: No rashes. 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 Continue same treatment. Continue with symptomatic treatment. Resume home medication. Monitor labs and vitals. DVT and GI prophylaxis. Further recommendations as per clinical course of the patient Dictation was produced using [employer] dictation software. please excuse any grammatical, word or spelling errors. Objective - Vital Signs Vital signs: Vital Signs Temp 98.1 F 10/31/22 07:18 Pulse 72 10/31/22 11:26 Resp 18 10/31/22 07:18 BP 149/52 10/31/22 07:18 Pulse Ox 98 10/31/22 07:34 FiO2 Intake & Output 10/30/22 10/31/22 10/31/22 18:59 06:59 18:59 Intake Total 500 Output Total 1000 600 Balance -1000 -100 Weight 117 kg Intake: Oral 500 Output: Urine 1000 600 Other: Voiding Method External Catheter External Catheter External Catheter - Labs CBC & Chem 7: 10/31/22 06:12 10/31/22 06:12 Labs: Abnormal Lab Results - Last 24 Hours (Table) 10/30/22 10/30/22 10/31/22 Range/Units 17:01 20:03 06:12 RBC (4.40-5.60) X 10*6/uL Hgb (13.0-17.0) d/dL Hct (39.6-50.0) % MCH (27.0-32.0) pg MCHC (32.0-37.0) d/dL RDW (11.5-14.5) % BUN 34 H (9-20) mg/dL Creatinine 1.84 H (0.66-1.25) mg/dL Glucose 42 L* (74-99) mg/dL POC Glucose (mg/dL) 211 H 182 H (70-110) mg/dL Calcium 8.0 L (8.4-10.2) mg/dL AST 64 H (17-59) U/L Albumin 3.1 L (3.5-5.0) g/dL 10/31/22 10/31/22 10/31/22 Range/Units 06:12 07:17 12:05 RBC 3.07 L (4.40-5.60) X 10*6/uL Hgb 7.9 L (13.0-17.0) d/dL Hct 26.9 L (39.6-50.0) % MCH 25.7 L (27.0-32.0) pg MCHC 29.4 L (32.0-37.0) d/dL RDW 17.4 H (11.5-14.5) % BUN (9-20) mg/dL Creatinine (0.66-1.25) mg/dL Glucose (74-99) mg/dL POC Glucose (mg/dL) 51 L 117 H (70-110) mg/dL Calcium (8.4-10.2) mg/dL AST (17-59) U/L Albumin (3.5-5.0) g/dL Microbiology - Last 24 Hours (Table) 10/28/22 14:56 Blood Culture Gram Stain - Preliminary Blood Blood Culture - Preliminary Presumptive MRSA
--- NOTE | 2022-10-31 16:25 | P.PN ---
Subjective Progress Note Date: 10/31/22 Principal diagnosis: Fever, IV site cellulitis and bacteremia Patient is a 72-year-old male with multiple comorbidities including diabetes peripheral vascular disease status post bilateral wxtgl-axp-kuok amputation recently underwent cardiac cath subsequently present to hospital worsening shortness of breath and possible CHF patient did develop a fever and concern for left upper extremity IV site cellulitis. On today's evaluation that is 10/31/2022, the patient denies having any fever or any chills, the patient is breathing comfortably on 4 L nasal cannula oxygen denies any chest pain or shortness of breath occasional cough no abdominal pain left upper arm swelling and redness has decreased no drainage. The patient white count is 9.8, creatinine is 1.84, vancomycin random of 25.1 Objective - Vital Signs Vital signs: Vital Signs Temp 98.1 F 10/31/22 07:18 Pulse 72 10/31/22 11:26 Resp 18 10/31/22 07:18 BP 149/52 10/31/22 07:18 Pulse Ox 98 10/31/22 07:34 FiO2 Intake & Output 10/30/22 10/31/22 10/31/22 18:59 06:59 18:59 Intake Total 500 Output Total 1000 600 Balance -1000 -100 Weight 117 kg Intake: Oral 500 Output: Urine 1000 600 Other: Voiding Method External Catheter External Catheter External Catheter - Exam GENERAL DESCRIPTION: Elderly male lying in bed in no distress RESPIRATORY SYSTEM: Unlabored breathing , decreased breath sounds at bases HEART: S1 S2 regular rate and rhythm ,no loud murmurs ABDOMEN: Soft , no tenderness EXTREMITIES: Left antecubital fossa swelling and redness at the IV site has decreased in intensity - Labs CBC & Chem 7: 10/31/22 06:12 10/31/22 06:12 Labs: Abnormal Lab Results - Last 24 Hours (Table) 10/30/22 10/30/22 10/31/22 Range/Units 17:01 20:03 06:12 RBC (4.40-5.60) X 10*6/uL Hgb (13.0-17.0) d/dL Hct (39.6-50.0) % MCH (27.0-32.0) pg MCHC (32.0-37.0) d/dL RDW (11.5-14.5) % BUN 34 H (9-20) mg/dL Creatinine 1.84 H (0.66-1.25) mg/dL Glucose 42 L* (74-99) mg/dL POC Glucose (mg/dL) 211 H 182 H (70-110) mg/dL Calcium 8.0 L (8.4-10.2) mg/dL AST 64 H (17-59) U/L Albumin 3.1 L (3.5-5.0) g/dL 10/31/22 10/31/22 10/31/22 Range/Units 06:12 07:17 12:05 RBC 3.07 L (4.40-5.60) X 10*6/uL Hgb 7.9 L (13.0-17.0) d/dL Hct 26.9 L (39.6-50.0) % MCH 25.7 L (27.0-32.0) pg MCHC 29.4 L (32.0-37.0) d/dL RDW 17.4 H (11.5-14.5) % BUN (9-20) mg/dL Creatinine (0.66-1.25) mg/dL Glucose (74-99) mg/dL POC Glucose (mg/dL) 51 L 117 H (70-110) mg/dL Calcium (8.4-10.2) mg/dL AST (17-59) U/L Albumin (3.5-5.0) g/dL Microbiology - Last 24 Hours (Table) 10/28/22 14:56 Blood Culture Gram Stain - Final Blood Blood Culture - Final Methicillin resist S. aureus Assessment and Plan (1) IV site infection Current Visit: Yes Status: Acute Code(s): T82.7XXA - INFECT/INFLM REACT D/T OTH CARDI/VASC DEV/IMPLNT/GRFT, INIT SNOMED Code(s): 467769675 (2) MRSA bacteremia Current Visit: Yes Status: Acute Code(s): R78.81 - BACTEREMIA; B95.62 - METHICILLIN RESIS STAPH INFCT CAUSING DISEASES CLASSD ELSR SNOMED Code(s): 80354051255863476 Plan: 1patient with a nosocomial fever in this patient presenting to the hospital with shortness of breath likely related to CHF now with a fever started while in hospital source could be left upper extremity IV site cellulitis and will need to cover for the gram-positive skin monique to the likely pathogen such as MRSA. 2Blood cultures coming positive With presumptive MRSA, sensitivities pending blood cultures has been repeated document clearance of bacteremia,. 3patient to continue vancomycin pharmacy to dose , which did to monitor closely because of his elevated creatinine we will discontinue cefepime as no gram-n egative, the patient will need PICC line once his blood culture negative at 72 hours for outpatient IV antibiotics Dictation was produced using [employer] dictation software. please excuse any grammatical, word or spelling errors. Time with Patient: Less than 30
[2022-10-31 17:21] LABS: Glucose,Whole Blood 132 mg/dL (70-110)
[2022-10-31] MEDS ORDERED: ONDANSETRON 4 MG/2 ML VIAL IVP PRN (17:40)
[2022-10-31] MEDS: HYDROcodone/APAP 5-325MG 1 EACH TAB PO PRN (18:19)
[2022-10-31 20:30] LABS: Glucose,Whole Blood 179 mg/dL (70-110)
[2022-10-31] MEDS: traZODone HCL 50 MG TAB PO SCH (20:46)
[2022-10-31] MEDS: ATORVASTATIN 80 MG TAB PO SCH (20:46)
[2022-11-01] MEDS: HYDROcodone/APAP 5-325MG 1 EACH TAB PO PRN ×3 (00:44→20:01)
[2022-11-01 07:20] LABS: ALT 32 U/L (4-49); AST 56 U/L (17-59); African American GFR (CKD) 47 (>60 ml/min/1.73 sqM); Albumin 3.2 g/dL (3.5-5.0); Alkaline Phosphatase 91 U/L (38-126); Anion Gap 6 mmol/L; Blood Urea Nitrogen 30 mg/dL (9-20); Calcium 7.8 mg/dL (8.4-10.2); Carbon Dioxide 30 mmol/L (22-30); Chloride 99 mmol/L (98-107); Globulin 3.2 g/dL; Glucose 130 mg/dL (74-99); Non-African American GFR(CKD) 40 (>60 ml/min/1.73 sqM); Potassium 3.4 mmol/L (3.5-5.1); Sodium 135 mmol/L (137-145); Total Bilirubin 0.7 mg/dL (0.2-1.3); Total Protein 6.4 g/dL (6.3-8.2)
[2022-11-01 07:20] LABS: Glucose,Whole Blood 137 mg/dL (70-110)
[2022-11-01] MEDS: BUDESONIDE 0.5 MG/2 ML NEBU INHALATION SCH ×2 (07:37→20:22)
[2022-11-01] MEDS: IPRATROPIUM-ALBUTEROL 3 ML NEB INHALATION SCH ×4 (07:37→20:23)
[2022-11-01] MEDS: INSULIN ASPART (NovoLOG) 100 UNIT/ML VIAL SQ SCH ×4 (07:47→21:53)
[2022-11-01] MEDS: hydrALAZINE HCL 50 MG TAB PO SCH ×3 (08:09→21:53)
[2022-11-01] MEDS: INSULIN DETEMIR (LEVEMIR) 100 UNIT/ML SYR SQ SCH ×2 (08:09→17:40)
[2022-11-01] MEDS: CHOLECALCIFEROL 25 MCG (1000 IU) TABLET PO SCH (08:10)
[2022-11-01] MEDS: MULTIVITAMINS, THERA 1 EACH TAB PO SCH (08:10)
[2022-11-01] MEDS: FUROSEMIDE 40 MG TAB PO SCH ×2 (08:10→17:38)
[2022-11-01] MEDS: APIXABAN 5 MG TAB PO SCH ×2 (08:10→20:01)
[2022-11-01] MEDS: POTASSIUM CHLORIDE ER 20 MEQ TAB.ER PO SCH (08:10)
[2022-11-01] MEDS: TAMSULOSIN 0.4 MG CAP.ER.24H PO SCH (08:10)
[2022-11-01] MEDS: CLOPIDOGREL 75 MG TAB PO SCH (08:10)
[2022-11-01] MEDS: MAGNESIUM OXIDE 400 MG TAB PO SCH (08:10)
[2022-11-01] MEDS: DAPAGLIFLOZIN PROPANEDIOL 10 MG TABLET PO SCH (08:11)
[2022-11-01] MEDS: NIFEdipine XL 90 MG TAB.ER.24 PO SCH (08:12)
[2022-11-01] MEDS: ESCITALOPRAM 10 MG TAB PO SCH (08:12)
[2022-11-01] MEDS: NYSTATIN 100,000 UNIT/GM POWD 15 GM TOPICAL SCH ×2 (08:13→20:02)
[2022-11-01] MEDS ORDERED: VANCOMYCIN 1,750 MG in SODIUM CHLORIDE 0.9% 500 ML 500 ML IVPB ONE (09:00)
[2022-11-01 09:26] LABS: Basophils # (A) 0.02 X 10*3/uL (0.00-0.10); Basophils % (A) 0.3 %; Eosinophils # (A) 0.12 X 10*3/uL (0.04-0.35); Eosinophils % (A) 1.8 %; HCT 25.1 % (39.6-50.0); HGB 7.5 d/dL (13.0-17.0); Lymphocytes # (A) 0.93 X 10*3/uL (0.90-5.00); Lymphocytes % (A) 13.6 %; MCH 25.8 pg (27.0-32.0); MCHC 29.9 d/dL (32.0-37.0); MCV 86.3 FL (80.0-97.0); Mean Platelet Volume 10.9 FL (9.5-12.2); Monocytes % (A) 8.8 %; NRBC Per 100 WBC 0 X 10*3/uL (0.00-0.01); Neutrophils # (A) 5.12 X 10*3/uL (1.80-7.70); Neutrophils % (A) 75.1 %; Platelet Count 221 X 10*3/uL (140-440); RBC 2.91 X 10*6/uL (4.40-5.60); WBC 6.82 X 10*3/uL (4.50-10.00)
[2022-11-01] MEDS: SODIUM FERRIC GLUCONAT-SUCROSE 125 MG in SODIUM CHLORIDE 0.9% 100 ML IVPB SCH (10:42)
[2022-11-01 12:16] LABS: Glucose,Whole Blood 167 mg/dL (70-110)
--- NOTE | 2022-11-01 14:48 | P.PN ---
Subjective Progress Note Date: 11/01/22 72-year-old male patient with known history of diabetes mellitus controlled with insulin, hypertension, hyperlipidemia and severe 2 vessel coronary artery disease and CHF, recently underwent cardiac catheterization a few weeks ago which showed severe disease involving right coronary artery as well as LAD; patient underwent stenting of right coronary artery at that time followed by PCI of LAD on 10/17/22, was recently discharged. Patient was all right this morning when he woke up with worsening shortness of breath. Patient states shortness of breath is present at rest and is worsened by laying flat. Denies any chest pain. Denies any swelling of any extremities. Patient has been compliant with his diuretics. Complaining of PND. Denies any fever or chills. Denies any complaint of cough. Denies any nausea, vomiting abdominal pain. Because of this shortness of breath. Patient came to the ER Initial lab work done in the ER showed WBC 9.6, hemoglobin 7.9, platelet count 255, sodium 140, potassium 4.4, BUN 40, creatinine 1.82 Chest x-ray done in the ER showed pulmonary vascular congestion Patient admitted to medicine service . Patient seen and examined. Denies any blood in the stools. Eliquis on hold, will get GI evaluation for anemia 10/28. Patient seen and examined. Patient is confused this morning, hallucinating. Also started spiking fevers 10/29. Patient seen and examined. Less irritable and agitated compared to yesterday. Spiking fevers overnight with T-max of 103 10/30. Patient seen and examined. Daughter at the bedside. States patient is back to normal according to her. Patient is conversing well, does not look any acute distress. 10/31. Patient seen and examined. No acute issues overnight. Vital signs stable 11/01. Patient seen and examined. Patient sitting upright in the bed. Denies any lightheadedness or dizziness. Answering questions appropriately REVIEW OF SYSTEMS: denies any fever or chills Denies chest pain. Denies any nausea or vomiting Denies shortness of breath PHYSICAL EXAMINATION: GENERAL: The patient is alert , not in any acute distress. Well developed, well nourished. HEENT: Pupils are round and equally reacting to light. EOMI. No scleral icterus. No conjunctival pallor. Normocephalic, atraumatic. No pharyngeal erythema. No thyromegaly. CARDIOVASCULAR: S1 and S2 present. No murmurs, rubs, or gallops. PULMONARY: Chest is clear to auscultation, no wheezing or crackles. ABDOMEN: Soft, nontender, nondistended, normoactive bowel sounds. No palpable organomegaly. MUSCULOSKELETAL: No joint swelling or deformity. EXTREMITIES: Bilateral lower extremity amputations seen NEUROLOGICAL: Gross neurological examination did not reveal any focal deficits. SKIN: No rashes. 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 Continue same treatment. Continue with symptomatic treatment. Resume home medication. Monitor labs and vitals. DVT and GI prophylaxis. Further recommendations as per clinical course of the sharee ent Dictation was produced using [employer] dictation software. please excuse any grammatical, word or spelling errors. Objective - Vital Signs Vital signs: Vital Signs Temp 98.5 F 11/01/22 13:34 Pulse 85 11/01/22 13:34 Resp 16 11/01/22 13:34 BP 138/45 11/01/22 13:34 Pulse Ox 93 L 11/01/22 13:34 FiO2 Intake & Output 10/31/22 11/01/22 11/01/22 18:59 06:59 18:59 Intake Total 220 Output Total 1100 1700 Balance -1100 -1480 Weight 117 kg Intake: Intake, IV Titration 100 Amount Cefepime 2 gm In Sodium 100 Chloride 0.9% 100 ml @ 25 mls/hr IVPB Q12HR [facility] Rx #:[id number] Oral 120 Output: Urine 1100 1700 Other: Voiding Method External Catheter External Catheter External Catheter - Labs CBC & Chem 7: 11/01/22 06:44 11/01/22 06:44 Labs: Abnormal Lab Results - Last 24 Hours (Table) 10/31/22 10/31/22 11/01/22 Range/Units 17:19 20:29 06:44 RBC (4.40-5.60) X 10*6/uL Hgb (13.0-17.0) d/dL Hct (39.6-50.0) % MCH (27.0-32.0) pg MCHC (32.0-37.0) d/dL RDW (11.5-14.5) % Sodium 135 L (137-145) mmol/L Potassium 3.4 L (3.5-5.1) mmol/L BUN 30 H (9-20) mg/dL Creatinine 1.69 H (0.66-1.25) mg/dL Glucose 130 H (74-99) mg/dL POC Glucose (mg/dL) 132 H 179 H (70-110) mg/dL Calcium 7.8 L (8.4-10.2) mg/dL Albumin 3.2 L (3.5-5.0) g/dL 11/01/22 11/01/22 11/01/22 Range/Units 06:44 07:19 12:14 RBC 2.91 L (4.40-5.60) X 10*6/uL Hgb 7.5 L (13.0-17.0) d/dL Hct 25.1 L (39.6-50.0) % MCH 25.8 L (27.0-32.0) pg MCHC 29.9 L (32.0-37.0) d/dL RDW 17.0 H (11.5-14.5) % Sodium (137-145) mmol/L Potassium (3.5-5.1) mmol/L BUN (9-20) mg/dL Creatinine (0.66-1.25) mg/dL Glucose (74-99) mg/dL POC Glucose (mg/dL) 137 H 167 H (70-110) mg/dL Calcium (8.4-10.2) mg/dL Albumin (3.5-5.0) g/dL Microbiology - Last 24 Hours (Table) 10/30/22 16:26 Blood Culture - Preliminary Blood 10/28/22 14:56 Blood Culture Gram Stain - Final Blood Blood Culture - Final Methicillin resist S. aureus
--- NOTE | 2022-11-01 15:22 | P.PN ---
Subjective Progress Note Date: 11/01/22 Principal diagnosis: Fever, IV site cellulitis and bacteremia Patient is a 72-year-old male with multiple comorbidities including diabetes peripheral vascular disease status post bilateral wofrg-leo-hqhd amputation recently underwent cardiac cath subsequently present to hospital worsening shortness of breath and possible CHF patient did develop a fever and concern for left upper extremity IV site cellulitis. On today's evaluation that is 11/01/2022 the patient remains to be afebrile, the patient is breathing comfortably on 4 L nasal cannula oxygen patient denies perea ving any chest pain or shortness with occasional cough no abdominal pain no diarrhea no urinary symptoms. Patient did have a white count of 6.82 creatinine is 1.69 blood culture repeat so far negative Objective - Vital Signs Vital signs: Vital Signs Temp 97.9 F 11/01/22 07:23 Pulse 76 11/01/22 07:49 Resp 18 11/01/22 07:23 BP 133/55 11/01/22 07:23 Pulse Ox 95 11/01/22 07:23 FiO2 Intake & Output 10/31/22 11/01/22 11/01/22 18:59 06:59 18:59 Intake Total 220 Output Total 1100 1700 Balance -1100 -1480 Weight 117 kg Intake: Intake, IV Titration 100 Amount Cefepime 2 gm In Sodium 100 Chloride 0.9% 100 ml @ 25 mls/hr IVPB Q12HR [facility] Rx #:[id number] Oral 120 Output: Urine 1100 1700 Other: Voiding Method External Catheter External Catheter External Catheter - Labs CBC & Chem 7: 11/01/22 06:44 11/01/22 06:44 Labs: Abnormal Lab Results - Last 24 Hours (Table) 10/31/22 10/31/22 10/31/22 Range/Units 06:12 12:05 17:19 RBC 3.07 L (4.40-5.60) X 10*6/uL Hgb 7.9 L (13.0-17.0) d/dL Hct 26.9 L (39.6-50.0) % MCH 25.7 L (27.0-32.0) pg MCHC 29.4 L (32.0-37.0) d/dL RDW 17.4 H (11.5-14.5) % Sodium (137-145) mmol/L Potassium (3.5-5.1) mmol/L BUN (9-20) mg/dL Creatinine (0.66-1.25) mg/dL Glucose (74-99) mg/dL POC Glucose (mg/dL) 117 H 132 H (70-110) mg/dL Calcium (8.4-10.2) mg/dL Albumin (3.5-5.0) g/dL 10/31/22 11/01/22 11/01/22 Range/Units 20:29 06:44 06:44 RBC 2.91 L (4.40-5.60) X 10*6/uL Hgb 7.5 L (13.0-17.0) d/dL Hct 25.1 L (39.6-50.0) % MCH 25.8 L (27.0-32.0) pg MCHC 29.9 L (32.0-37.0) d/dL RDW 17.0 H (11.5-14.5) % Sodium 135 L (137-145) mmol/L Potassium 3.4 L (3.5-5.1) mmol/L BUN 30 H (9-20) mg/dL Creatinine 1.69 H (0.66-1.25) mg/dL Glucose 130 H (74-99) mg/dL POC Glucose (mg/dL) 179 H (70-110) mg/dL Calcium 7.8 L (8.4-10.2) mg/dL Albumin 3.2 L (3.5-5.0) g/dL 11/01/22 Range/Units 07:19 RBC (4.40-5.60) X 10*6/uL Hgb (13.0-17.0) d/dL Hct (39.6-50.0) % MCH (27.0-32.0) pg MCHC (32.0-37.0) d/dL RDW (11.5-14.5) % Sodium (137-145) mmol/L Potassium (3.5-5.1) mmol/L BUN (9-20) mg/dL Creatinine (0.66-1.25) mg/dL Glucose (74-99) mg/dL POC Glucose (mg/dL) 137 H (70-110) mg/dL Calcium (8.4-10.2) mg/dL Albumin (3.5-5.0) g/dL Microbiology - Last 24 Hours (Table) 10/30/22 16:26 Blood Culture - Preliminary Blood 10/28/22 14:56 Blood Culture Gram Stain - Final Blood Blood Culture - Final Methicillin resist S. aureus Assessment and Plan (1) IV site infection Current Visit: Yes Status: Acute Code(s): T82.7XXA - INFECT/INFLM REACT D/T OTH CARDI/VASC DEV/IMPLNT/GRFT, INIT SNOMED Code(s): 466724461 (2) MRSA bacteremia Current Visit: Yes Status: Acute Code(s): R78.81 - BACTEREMIA; B95.62 - METHICILLIN RESIS STAPH INFCT CAUSING DISEASES CLASSD ELSWHR SNOMED Code(s): 50357424834515689 Plan: 1patient with a nosocomial fever in this patient presenting to the hospital with shortness of breath likely related to CHF now with a fever started while in hospital source could be left upper extremity IV site cellulitis and will need to cover for the gram-positive skin monique to the likely pathogen such as MRSA. 2Blood cultures coming positive With presumptive MRSA, sensitivities pending blood cultures has been repeated document clearance of bacteremia,. 3patient to continue vancomycin pharmacy to dose , repeat blood culture so far negative with remains to be negative at 72 hours we will get a PICC line for outpatient IV device therapy may consider daptomycin over vancomycin because of his kidney function will discuss with the rn case mgr Dictation was produced using [employer] dictation software. please excuse any grammatical, word or spelling errors.
[2022-11-01 17:37] LABS: Glucose,Whole Blood 172 mg/dL (70-110)
[2022-11-01] MEDS: ATORVASTATIN 80 MG TAB PO SCH (20:01)
[2022-11-01] MEDS: traZODone HCL 50 MG TAB PO SCH (20:01)
[2022-11-01 21:47] LABS: Glucose,Whole Blood 187 mg/dL (70-110)
[2022-11-02 07:50] LABS: Glucose,Whole Blood 163 mg/dL (70-110)
[2022-11-02] MEDS: IPRATROPIUM-ALBUTEROL 3 ML NEB INHALATION SCH ×4 (08:03→20:24)
[2022-11-02] MEDS: BUDESONIDE 0.5 MG/2 ML NEBU INHALATION SCH ×2 (08:04→20:24)
[2022-11-02] MEDS: INSULIN ASPART (NovoLOG) 100 UNIT/ML VIAL SQ SCH ×4 (08:31→21:47)
[2022-11-02] MEDS: CLOPIDOGREL 75 MG TAB PO SCH (08:32)
[2022-11-02] MEDS: APIXABAN 5 MG TAB PO SCH ×2 (08:32→21:47)
[2022-11-02] MEDS: NYSTATIN 100,000 UNIT/GM POWD 15 GM TOPICAL SCH ×2 (08:32→21:48)
[2022-11-02] MEDS: MAGNESIUM OXIDE 400 MG TAB PO SCH (08:32)
[2022-11-02] MEDS: TAMSULOSIN 0.4 MG CAP.ER.24H PO SCH (08:32)
[2022-11-02] MEDS: FUROSEMIDE 40 MG TAB PO SCH ×2 (08:32→17:00)
[2022-11-02] MEDS: HYDROcodone/APAP 5-325MG 1 EACH TAB PO PRN ×3 (08:32→21:51)
[2022-11-02] MEDS: MULTIVITAMINS, THERA 1 EACH TAB PO SCH (08:32)
[2022-11-02] MEDS: hydrALAZINE HCL 50 MG TAB PO SCH ×3 (08:32→21:47)
[2022-11-02] MEDS: CHOLECALCIFEROL 25 MCG (1000 IU) TABLET PO SCH (08:32)
[2022-11-02] MEDS: DAPAGLIFLOZIN PROPANEDIOL 10 MG TABLET PO SCH (08:33)
[2022-11-02] MEDS: ESCITALOPRAM 10 MG TAB PO SCH (08:33)
[2022-11-02] MEDS: INSULIN DETEMIR (LEVEMIR) 100 UNIT/ML SYR SQ SCH ×2 (08:33→17:39)
[2022-11-02] MEDS: NIFEdipine XL 90 MG TAB.ER.24 PO SCH (08:33)
[2022-11-02] MEDS: SODIUM FERRIC GLUCONAT-SUCROSE 125 MG in SODIUM CHLORIDE 0.9% 100 ML IVPB SCH (09:18)
[2022-11-02 10:22] LABS: Anisocytosis Slight; HCT 26.3 % (39.0-53.0); HGB 8.1 gm/dL (13.0-17.5); Hypochromasia Marked; MCH 26.9 pg (25.0-35.0); MCV 86.6 fL (80.0-100.0); Mean Platelet Volume 8.4; Platelet Count 215 k/uL (150-450); RBC 3.03 m/uL (4.30-5.90); RDW 16.8 % (11.5-15.5); WBC 7.2 k/uL (3.8-10.6)
[2022-11-02 10:49] LABS: ALT 31 U/L (4-49); AST 42 U/L (17-59); African American GFR (CKD) 56 (>60 ml/min/1.73 sqM); Albumin 3.2 g/dL (3.5-5.0); Albumin/Globulin Ratio 0.9; Alkaline Phosphatase 105 U/L (38-126); Anion Gap 10 mmol/L; Blood Urea Nitrogen 24 mg/dL (9-20); Calcium 8.1 mg/dL (8.4-10.2); Carbon Dioxide 30 mmol/L (22-30); Chloride 95 mmol/L (98-107); Globulin 3.4 g/dL; Glucose 180 mg/dL (74-99); Magnesium 1.9 mg/dL (1.6-2.3); Non-African American GFR(CKD) 49 (>60 ml/min/1.73 sqM); Potassium 3.5 mmol/L (3.5-5.1); Sodium 135 mmol/L (137-145); Total Bilirubin 0.7 mg/dL (0.2-1.3); Total Protein 6.6 g/dL (6.3-8.2)
[2022-11-02] MEDS: POTASSIUM CHLORIDE ER 20 MEQ TAB.ER PO SCH (12:24)
[2022-11-02 12:30] LABS: Glucose,Whole Blood 136 mg/dL (70-110)
--- NOTE | 2022-11-02 13:00 | P.PN ---
Subjective Progress Note Date: 11/02/22 72-year-old male patient with known history of diabetes mellitus controlled with insulin, hypertension, hyperlipidemia and severe 2 vessel coronary artery disease and CHF, recently underwent cardiac catheterization a few weeks ago which showed severe disease involving right coronary artery as well as LAD; patient underwent stenting of right coronary artery at that time followed by PCI of LAD on 10/17/22, was recently discharged. Patient was all right this morning when he woke up with worsening shortness of breath. Patient states shortness of breath is present at rest and is worsened by laying flat. Denies any chest pain. Denies any swelling of any extremities. Patient has been compliant with his diuretics. Complaining of PND. Denies any fever or chills. Denies any complaint of cough. Denies any nausea, vomiting abdominal pain. Because of this shortness of breath. Patient came to the ER Initial lab work done in the ER showed WBC 9.6, hemoglobin 7.9, platelet count 255, sodium 140, potassium 4.4, BUN 40, creatinine 1.82 Chest x-ray done in the ER showed pulmonary vascular congestion Patient admitted to medicine service . Patient seen and examined. Denies any blood in the stools. Eliquis on hold, will get GI evaluation for anemia 10/28. Patient seen and examined. Patient is confused this morning, hallucinating. Also started spiking fevers 10/29. Patient seen and examined. Less irritable and agitated compared to yesterday. Spiking fevers overnight with T-max of 103 10/30. Patient seen and examined. Daughter at the bedside. States patient is back to normal according to her. Patient is conversing well, does not look any acute distress. 10/31. Patient seen and examined. No acute issues overnight. Vital signs stable 11/01. Patient seen and examined. Patient sitting upright in the bed. Denies any lightheadedness or dizziness. Answering questions appropriately 11/02. Patient seen and examined. States that he is feeling tired and lethargic. REVIEW OF SYSTEMS: denies any fever or chills Denies chest pain. Denies any nausea or vomiting Denies shortness of breath PHYSICAL EXAMINATION: GENERAL: The patient is alert , not in any acute distress. Well developed, well nourished. HEENT: Pupils are round and equally reacting to light. EOMI. No scleral icterus. No conjunctival pallor. Normocephalic, atraumatic. No pharyngeal erythema. No thyromegaly. CARDIOVASCULAR: S1 and S2 present. No murmurs, rubs, or gallops. PULMONARY: Chest is clear to auscultation, no wheezing or crackles. ABDOMEN: Soft, nontender, nondistended, normoactive bowel sounds. No palpable organomegaly. MUSCULOSKELETAL: No joint swelling or deformity. EXTREMITIES: Bilateral lower extremity amputations seen NEUROLOGICAL: Gross neurological examination did not reveal any focal deficits. SKIN: No rashes. 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 Continue same treatment. Continue with symptomatic treatment. Resume home medication. Monitor labs and vitals. DVT and GI prophylaxis. Further recommendations as per clinical course of the patient Dictation was produced using [employer] dictation software. please excuse any grammatical, word or spelling errors. Objective - Vital Signs Vital signs: Vital Signs Temp 98.7 F 11/02/22 07:48 Pulse 62 11/02/22 08:21 Resp 18 11/02/22 07:48 BP 134/54 11/02/22 07:48 Pulse Ox 93 L 11/02/22 08:07 FiO2 3 11/02/22 08:07 Intake & Output 11/01/22 11/02/22 11/02/22 18:59 06:59 18:59 Intake Total 480 Output Total 2200 4300 Balance -2200 -3820 Weight 115.5 kg Intake: Oral 480 Output: Urine 2200 4300 Other: Voiding Method External Catheter External Catheter External Catheter # Bowel Movements 0 - Labs CBC & Chem 7: 11/02/22 09:35 11/02/22 09:35 Labs: Abnormal Lab Results - Last 24 Hours (Table) 11/01/22 11/01/22 11/01/22 Range/Units 12:14 17:36 21:35 POC Glucose (mg/dL) 167 H 172 H 187 H (70-110) mg/dL 11/02/22 Range/Units 07:49 POC Glucose (mg/dL) 163 H (70-110) mg/dL Microbiology - Last 24 Hours (Table) 10/30/22 16:26 Blood Culture - Preliminary Blood
[2022-11-02 17:34] LABS: Glucose,Whole Blood 211 mg/dL (70-110)
[2022-11-02 19:59] LABS: Glucose,Whole Blood 143 mg/dL (70-110)
[2022-11-02] MEDS: traZODone HCL 50 MG TAB PO SCH (21:47)
[2022-11-02] MEDS: ATORVASTATIN 80 MG TAB PO SCH (21:47)
[2022-11-03] MEDS: HYDROcodone/APAP 5-325MG 1 EACH TAB PO PRN ×2 (02:58→08:40)
[2022-11-03 07:09] LABS: Magnesium 1.9 mg/dL (1.6-2.3); Potassium 3.5 mmol/L (3.5-5.1)
[2022-11-03 07:13] LABS: African American GFR (CKD) 56 (>60 ml/min/1.73 sqM); Non-African American GFR(CKD) 48 (>60 ml/min/1.73 sqM)
[2022-11-03 07:15] LABS: Vancomycin,Random 16.5 ug/mL
[2022-11-03 07:30] LABS: Glucose,Whole Blood 136 mg/dL (70-110)
[2022-11-03 07:51] VITALS: RESP 20
[2022-11-03] MEDS: IPRATROPIUM-ALBUTEROL 3 ML NEB INHALATION SCH ×3 (08:14→15:57)
[2022-11-03] MEDS: BUDESONIDE 0.5 MG/2 ML NEBU INHALATION SCH (08:14)
[2022-11-03] MEDS: INSULIN ASPART (NovoLOG) 100 UNIT/ML VIAL SQ SCH ×2 (08:26→12:46)
[2022-11-03] MEDS: MAGNESIUM OXIDE 400 MG TAB PO SCH (08:35)
[2022-11-03] MEDS: ESCITALOPRAM 10 MG TAB PO SCH (08:35)
[2022-11-03] MEDS: MULTIVITAMINS, THERA 1 EACH TAB PO SCH (08:35)
[2022-11-03] MEDS: INSULIN DETEMIR (LEVEMIR) 100 UNIT/ML SYR SQ SCH (08:35)
[2022-11-03] MEDS: CLOPIDOGREL 75 MG TAB PO SCH (08:35)
[2022-11-03] MEDS: TAMSULOSIN 0.4 MG CAP.ER.24H PO SCH (08:35)
--- NOTE | 2022-11-03 08:35 | P.PN ---
Subjective Progress Note Date: 11/02/22 Principal diagnosis: Fever, IV site cellulitis and bacteremia Patient is a 72-year-old male with multiple comorbidities including diabetes peripheral vascular disease status post bilateral mzlli-lsk-tidy amputation recently underwent cardiac cath subsequently present to hospital worsening shortness of breath and possible CHF patient did develop a fever and concern for left upper extremity IV site cellulitis. On today's evaluation that is 11/02/2022, the patient remains to be afebrile the patient is breathing comfortably on 2 L nasal cannula oxygen patient denies perea ving any chest pain shortness of breath or cough no nausea no vomiting no abdominal pain and no diarrhea. Patient creatinine is 1.44 and a white count of 7.2 blood cultures 10/30/2022 so far negative Objective - Vital Signs Vital signs: Vital Signs Temp 99.0 F 11/02/22 19:12 Pulse 70 11/02/22 20:36 Resp 18 11/02/22 19:12 BP 155/63 11/02/22 19:12 Pulse Ox 93 L 11/02/22 19:12 FiO2 3 11/02/22 08:07 Intake & Output 11/02/22 11/02/22 11/03/22 06:59 18:59 06:59 Intake Total 480 540 Output Total 4300 1650 800 Balance -0987 -7330 -260 Weight 115.5 kg Intake: Oral 480 540 Output: Urine 4300 1650 800 Other: Voiding Method External Catheter External Catheter # Bowel Movements 0 - Exam GENERAL DESCRIPTION: Elderly male lying in bed in no distress RESPIRATORY SYSTEM: Unlabored breathing , decreased breath sounds at bases HEART: S1 S2 regular rate and rhythm ,no loud murmurs ABDOMEN: Soft , no tenderness EXTREMITIES: Left antecubital fossa swelling and redness at the IV site has decreased in intensity - Labs CBC & Chem 7: 11/02/22 09:35 11/03/22 06:06 Labs: Abnormal Lab Results - Last 24 Hours (Table) 11/02/22 11/02/22 11/02/22 Range/Units 07:49 09:35 09:35 RBC 3.03 L (4.30-5.90) m/uL Hgb 8.1 L (13.0-17.5) gm/dL Hct 26.3 L (39.0-53.0) % RDW 16.8 H (11.5-15.5) % Sodium 135 L (137-145) mmol/L Chloride 95 L (98-107) mmol/L BUN 24 H (9-20) mg/dL Creatinine 1.44 H (0.66-1.25) mg/dL Glucose 180 H (74-99) mg/dL POC Glucose (mg/dL) 163 H (70-110) mg/dL Calcium 8.1 L (8.4-10.2) mg/dL Albumin 3.2 L (3.5-5.0) g/dL 11/02/22 11/02/22 11/02/22 Range/Units 12:28 17:33 19:58 RBC (4.30-5.90) m/uL Hgb (13.0-17.5) gm/dL Hct (39.0-53.0) % RDW (11.5-15.5) % Sodium (137-145) mmol/L Chloride (98-107) mmol/L BUN (9-20) mg/dL Creatinine (0.66-1.25) mg/dL Glucose (74-99) mg/dL POC Glucose (mg/dL) 136 H 211 H 143 H (70-110) mg/dL Calcium (8.4-10.2) mg/dL Albumin (3.5-5.0) g/dL Microbiology - Last 24 Hours (Table) 10/30/22 16:26 Blood Culture - Preliminary Blood Assessment and Plan (1) IV site infection Current Visit: Yes Status: Acute Code(s): T82.7XXA - INFECT/INFLM REACT D/T OTH CARDI/VASC DEV/IMPLNT/GRFT, INIT SNOMED Code(s): 762276496 (2) MRSA bacteremia Current Visit: Yes Status: Acute Code(s): R78.81 - BACTEREMIA; B95.62 - METHICILLIN RESIS STAPH INFCT CAUSING DISEASES CLASSD ELSR SNOMED Code(s): 81906209780450227 Plan: 1patient with a nosocomial fever in this patient presenting to the hospital with shortness of breath likely related to CHF now with a fever started while in hospital source could be left upper extremity IV site cellulitis and will need to cover for the gram-positive skin monique to the likely pathogen such as MRSA. 2blood cultures positive for MRSA repeat blood culture 10/30/2022 so far negative patient has cleared his bacteremia and will be able to get a PICC line in the morning. 3patient to continue vancomycin however recommend switching over to daptomycin 6 mg/kg daily for 10 days to finish course of therapy in the outpatient setting Dictation was produced using [employer] dictation software. please excuse any grammatical, word or spelling errors. Time with Patient: Less than 30
[2022-11-03] MEDS: APIXABAN 5 MG TAB PO SCH (08:36)
[2022-11-03] MEDS: CHOLECALCIFEROL 25 MCG (1000 IU) TABLET PO SCH (08:36)
[2022-11-03] MEDS: NYSTATIN 100,000 UNIT/GM POWD 15 GM TOPICAL SCH (08:36)
[2022-11-03] MEDS: hydrALAZINE HCL 50 MG TAB PO SCH ×2 (08:36→16:43)
[2022-11-03] MEDS: FUROSEMIDE 40 MG TAB PO SCH ×2 (08:36→16:44)
[2022-11-03] MEDS: SODIUM FERRIC GLUCONAT-SUCROSE 125 MG in SODIUM CHLORIDE 0.9% 100 ML IVPB SCH (08:36)
[2022-11-03] MEDS: NIFEdipine XL 90 MG TAB.ER.24 PO SCH (08:36)
[2022-11-03] MEDS: DAPAGLIFLOZIN PROPANEDIOL 10 MG TABLET PO SCH (08:36)
--- NOTE | 2022-11-03 09:59 | CDI ---
Documentation Clarification Form Date: 11/03/2022 09:31:01 AM From: Diamond Mantilla RN,CCDS Admit Date: 10/26/2022 06:45:00 AM Patient Name: Reid Frost Visit Number: [id number] Discharge Date: ATTENTION: The Clinical Documentation Specialists (CDI) and [facility] Coding Staff appreciate your assistance in clarifying documentation. Please respond to the clarification below the line at the bottom and electronically sign. The CDI & [facility] Coding staff will review the response and follow-up if needed. Please note: Queries are made part of the Legal Health Record. If you have any questions, please contact the author of this message via ITS. Dr. Tree Lee Conflicting documentation has been found in the medical record. As attending physician, please provide clarification. Cardio consult and subsequent progress notes: Acute on chronic heart failure with preserved ejection fraction euvolemic. Attending H/P and subsequent progress notes: Acute on chronic combined systolic and diastolic heart failure 10/27 Echocardiogram: Left ventricular ejection fraction is estimated at 55-60% mild right ventricular dilation. Moderate pulmonary hypertension History/Risk Factors: COPD, congestive heart failure, Diabetes Mellitus, Eye Disorder, GERD/Reflux, Hyperlipidemia, Hypertension, Osteoarthritis (OA), Renal Disease Clinical Indicators: 72-year-old male with worsening shortness of breath and by lying flat. CXR done in ER showed pulmonary vascular congestion. 10/26 VS: 126/100 50 16 97.6 100 % on 15 % Non-rebreather 10/26 Labs: WBC 9.6 HGB 7.9 HCT 24.5 BUN 49, CR 1.82, BNP 4630 Treatment: Apresoline 25 MG PO TID Lasix 40 MG IV Q 12 HRS 10/26 -10/28 then 40 MG PO BID 10/28-11/03 Please clarify which diagnosis is most appropriate: [x ] Acute on chronic heart failure with preserved ejection fraction [ ] Acute on chronic combined systolic and diastolic heart failure [ ] Other (please specify) [ ] Unable to determine (Template Last Revised: May 2020) MTDD
[2022-11-03] MEDS ORDERED: VANCOMYCIN 1,750 MG in SODIUM CHLORIDE 0.9% 500 ML 500 ML IVPB ONE (10:00)
--- NOTE | 2022-11-03 10:30 | CDI ---
Documentation Clarification Form Date: 11/03/2022 10:01:18 AM From: Diamond Mantilla RN, CCDS Admit Date: 10/26/2022 06:45:00 AM Patient Name: Reid Frost Visit Number: [id number] Discharge Date: ATTENTION: The Clinical Documentation Specialists (CDI) and [facility] Coding Staff appreciate your assistance in clarifying documentation. Please respond to the clarification below the line at the bottom and electronically sign. The CDI & [facility] Coding staff will review the response and follow-up if needed. Please note: Queries are made part of the Legal Health Record. If you have any questions, please contact the author of this message via ITS. Dr. Tree Lee There is documentation of Sepsis in the ongoing progress notes starting on 10/29/2022 Additional clarification is requested. History/Risk Factors: COPD, congestive heart failure, Diabetes Mellitus, Eye Disorder, GERD/Reflux, Hyperlipidemia, Hypertension, Osteoarthritis (OA), renal disease Clinical Indicators: 72-year-old male with worsening shortness of breath and by lying flat. 10/28 Labs WBC 10.77, Neutrophils 8.96 HGB 8.7, BUN 25.9 Ct 1.7 UA: Ur Leukocyte Esterase Large, Urine WBC 100, urine Bacteria Rare 10/28 VS: 158/64 102.9 10/29 Attending progress notes has: Sepsis, Gram-positive bacteremia. UTI. Left upper extremity cellulitis. 10/28 ID Consult for fever spike of 102.8. Patient did have an IV to the left upper arm with significant swelling redness to that IV site which has been discontinued infectious was consulted for further management of his fever and need for antibiotic therapy. Treatment: 10/28 Blood cultures: Methicillin resist S. aureus Vancomycin 1,750 MG IVPB PTD, 10/28-11/03 Zosyn 3.375 MG IVPB Q 8 HRS 10/28-10/28 Can you please clarify Etiology of sepsis if known? [ x ] Sepsis due to UTI [ ] Sepsis due to IV site cellulitis [ ] Other, please specify [ ] Unable to determine (Template Last Revised: May 2020) MTDD
[2022-11-03] MEDS ORDERED: LIDOCAINE 1% INJ 10MG/ML (20 ML MDV) ONE (10:51)
[2022-11-03] MEDS ORDERED: LIDOCAINE 1% INJ 10MG/ML (5 ML VIAL-PF) SQ ONE (10:57)
[2022-11-03 12:04] VITALS: BP 133/54; PULSE 86; TEMP 98.5
[2022-11-03 12:21] LABS: Glucose,Whole Blood 176 mg/dL (70-110)
--- NOTE | 2022-11-03 12:37 | IR ---
PICC LINE PLACEMENT: HISTORY: Infection requiring long-term antibiotic therapy PROCEDURE: Ultrasound and fluoroscopic guidance of PICC line placement. COMPLICATIONS: None ANESTHESIA: 1. 1% Lidocaine locally. FINDINGS/TECHNIQUE: The procedure was explained to the patient. The risks, complications, benefits and alternatives were discussed and any questions were answered. Informed consent was obtained. The patient was placed supine on the fluoroscopic table and prepped and draped in the usual sterile fash ion. Utilizing a 21 gauge needle and sonographic and fluoroscopic guidance, access in the left basi lic vein was achieved and there is placement of a 0.018 guidewire. The vein is patent. A 4-F sheath was placed over the guidewire. The guidewire and dilator were removed and a 4-F. PICC line was plac ed through the sheath with the tip at the level of the SVC. The sheath was removed, the catheter was flushed and sutured into position. The patient was stable throughout the procedure and remained sta ble upon discharge from the Department of Radiology. The vein puncture was patent under ultrasound. A mireles scale image was obtained to document patency of the vein punctured. All elements of the maximal barrier technique were utilized. FLUOROSCOPY TIME: DAP 0.954Gy cm2 IMPRESSION: Successful PICC line placement under ultrasound and fluoroscopic guidance.
--- NOTE | 2022-11-03 12:41 | P.EN ---
Patient will require external catheter and necessary supplies secondary to incontinence and excoriation
[2022-11-03] MEDS ORDERED: DAPTOmycin 500 MG in SODIUM CHLORIDE 0.9% 50 ML IVPB SCH (13:00)
[2022-11-03 17:16] LABS: Glucose,Whole Blood 119 mg/dL (70-110)
--- NOTE | 2022-11-04 09:46 | P.DS ---
Providers Date of admission: 10/26/22 06:45 Expected date of discharge: 11/03/22 Attending physician: Tree Lee MD Consults: 10/28/22 09:29 Consult Physician Urgent Consulting Provider: Stef Rodney Consult Reason/Comments: hallucinations, confused Do you want consulting provider notified?: Yes 10/28/22 14:54 Consult Physician Urgent Consulting Provider: Juan Del Rosario Consult Reason/Comments: Fevers Do you want consulting provider notified?: Yes Primary care physician: Tiffany Graham Hospital Course: Final diagnosis Acute on chronic hypoxic respiratory failure secondary to CHF exacerbation Acute on chronic congestive heart failure exacerbation with preserved EF Sepsis, multifactorial secondary to urinary tract infection as well as left IV site cellulitis bacteremia secondary to above morbid obesity with BMI 51.2 Left upper extremity cellulitis Severe 2 vessel coronary artery disease Hyperlipidemia Hypertension History of bilateral AKA COPD Insulin-dependent diabetes mellitus type II, uncontrolled with hyperglycemia GI prophylaxis DVT prophylaxis Full code Discharge disposition Patient is being discharged in a stable condition with guarded prognosis to home with home care. Patient will follow-up with Dr. Graham in the outpatient setting upon discharge. Patient is to continue with IV antibiotics in the form of Daptomycin for 10 days and outpatient follow up with Dr. Del Rosario as scheduled. Total time taken is greater than 35 minutes. Hospital course This is a 72-year-old male who was recently admitted with chf exacerbation with shortness of breath. Patient with significant comorbidities also developed fevers and was found to have bacteremia and urinary tract infection. Infectious disease was following the patient was maintained on antibiotics and is receiving a PICC line and will be scheduled for IV daptomycin daily for the next 10 days to complete the course. Infectious disease recommended close outpatient follow-up. Finalized cultures were MRSA bacteremia and repeat cultures thus far have been negative for 72 hours. Patient will follow-up with consultations in the outpatient setting including cardiology. Please refer to other consultation notes for further HPI. Patient lives with sister and will be returning home with home care. Currently no reports of chest pain, shortness of breath, or palpitations. Patient is afebrile. No reports of nausea or vomiting and patient is tolerating diet. Patient will be discharged home today. Overall poor and guarded prognosis. Patient is high risk for readmissions given significant comorbidities. Patient has had multiple admissions for this. Physical exam: Gen: This is a 72-year-old male who is awake, alert and oriented 3, well- developed, well-nourished, morbidly obese HEENT: Head is atraumatic, normocephalic. Pupils equal, round. Sclerae is anicteric. NECK: Supple. No JVD. No lymphadenopathy. No thyromegaly. LUNGS: Clear to auscultation. No wheezes or rhonchi. No intercostal retractions. HEART: Regular rate and rhythm. No murmur. ABDOMEN: Soft. Obese Bowel sounds are present. No masses. No tenderness. EXTREMITIES: No pedal edema. No calf tenderness. bilateral aka noted NEUROLOGICAL: Patient is awake, alert and oriented x3. Cranial nerves 2 through 12 are grossly intact. Please refer to medication reconciliation sheet for a list of medications. The impression and plan of care has been dictated by Aliyah Hodgson, Nurse Practitioner as directed. Dr. Derick MD I have performed a history and examination and MDM of this patient, discussed the same with the dictator, and agree with the dictator's assessment and plan as written ,documented as a scribe. Based on total visit time, I have performed more than 50% of the visit. Patient Condition at Discharge: Fair Plan - Discharge Summary Discharge Rx Participant: No New Discharge Prescriptions: New DAPTOmycin [Cubicin] 500 mg IVPB Q24H 10 Days #10 each Nystatin 100,000 Unit/gm Powd [Mycostatin Powder] 1 applic TOPICAL BID 30 Days #1 each Acetaminophen Tab [Tylenol] 650 mg PO Q6HR PRN tab PRN Reason: Fever and/ or Mild Pain Ipratropium-Albuterol Nebulize [Duoneb 0.5 mg-3 mg/3 ml Soln] 3 ml INHALATION RT-Q2H PRN each PRN Reason: Shortness Of Breath Or Wheezing Furosemide [Lasix] 40 mg PO BID@0900,1600 #60 tab Continue traZODone HCL 50 mg PO HS Escitalopram Oxalate [Lexapro] 10 mg PO DAILY Multivitamins, Thera [Multivitamin (formulary)] 1 tab PO DAILY Magnesium Oxide [Mag-Ox] 400 mg PO DAILY INSULIN LISPRO (HumaLOG) [humaLOG] 1 - 11 units SQ ACHS Insulin Glargine [Lantus Vial] 20 unit SQ BID-W/MEALS Cholecalciferol [Vitamin D3 (25 Mcg = 1000 Iu)] 25 mcg PO DAILY Budesonide [Pulmicort] 0.5 mg INHALATION RT-BID Atorvastatin [Lipitor] 80 mg PO DAILY Apixaban [Eliquis] 5 mg PO BID tab NIFEdipine XL [Procardia XL] 90 mg PO DAILY #30 tab Dapagliflozin Propanediol [Farxiga] 10 mg PO DAILY #30 tab Tamsulosin [Flomax] 0.4 mg PO DAILY Sennosides [Senokot] 8.6 mg PO BID PRN PRN Reason: Constipation Ipratropium-Albuterol Nebulize [Duoneb 0.5 mg-3 mg/3 ml Soln] 3 ml INHALATION RT-Q6H Famotidine [Pepcid] 20 mg PO DAILY Acetaminophen [Tylenol Arthritis] 650 mg PO Q6H PRN PRN Reason: Fever And/ Or Pain Nitroglycerin Sl Tabs [Nitrostat] 0.4 mg SUBLINGUAL Q5M PRN #30 tab PRN Reason: Chest Pain Clopidogrel [Plavix] 75 mg PO DAILY #30 tab HYDROcodone/APAP 5-325MG [[place] 5-325] 1 tab PO Q6HR PRN 3 Days #12 tab PRN Reason: Pain Discontinued Losartan [Cozaar] 25 mg PO DAILY #30 tab Furosemide [Lasix] 40 mg PO DAILY #30 tab hydrALAZINE HCL [Apresoline] 25 mg PO TID Discharge Medication List Escitalopram Oxalate [Lexapro] 10 mg PO DAILY 11/09/17 [History] traZODone HCL 50 mg PO HS 11/09/17 [History] Acetaminophen [Tylenol Arthritis] 650 mg PO Q6H PRN 09/29/22 [History] Atorvastatin [Lipitor] 80 mg PO DAILY 09/29/22 [History] Budesonide [Pulmicort] 0.5 mg INHALATION RT-BID 09/29/22 [History] Cholecalciferol [Vitamin D3 (25 Mcg = 1000 Iu)] 25 mcg PO DAILY 09/29/22 [History] Famotidine [Pepcid] 20 mg PO DAILY 09/29/22 [History] INSULIN LISPRO (HumaLOG) [humaLOG] 1 - 11 units SQ ACHS 09/29/22 [History] Insulin Glargine [Lantus Vial] 20 unit SQ BID-W/MEALS 09/29/22 [History] Ipratropium-Albuterol Nebulize [Duoneb 0.5 mg-3 mg/3 ml Soln] 3 ml INHALATION RT-Q6H 09/29/22 [History] Magnesium Oxide [Mag-Ox] 400 mg PO DAILY 09/29/22 [History] Multivitamins, Thera [Multivitamin (formulary)] 1 tab PO DAILY 09/29/22 [History] Sennosides [Senokot] 8.6 mg PO BID PRN 09/29/22 [History] Tamsulosin [Flomax] 0.4 mg PO DAILY 09/29/22 [History] Apixaban [Eliquis] 5 mg PO BID tab 10/01/22 [Rx] Clopidogrel [Plavix] 75 mg PO DAILY #30 tab 10/01/22 [Rx] HYDROcodone/APAP 5-325MG [[place] 5-325] 1 tab PO Q6HR PRN 3 Days #12 tab 10/01/22 [Rx] NIFEdipine XL [Procardia XL] 90 mg PO DAILY #30 tab 10/01/22 [Rx] Nitroglycerin Sl Tabs [Nitrostat] 0.4 mg SUBLINGUAL Q5M PRN #30 tab 10/01/22 [Rx] Dapagliflozin Propanediol [Farxiga] 10 mg PO DAILY #30 tab 10/20/22 [Rx] Acetaminophen Tab [Tylenol] 650 mg PO Q6HR PRN tab 11/03/22 [Rx] DAPTOmycin [Cubicin] 500 mg IVPB Q24H 10 Days #10 each 11/03/22 [Rx] Furosemide [Lasix] 40 mg PO BID@0900,1600 #60 tab 11/03/22 [Rx] Ipratropium-Albuterol Nebulize [Duoneb 0.5 mg-3 mg/3 ml Soln] 3 ml INHALATION RT-Q2H PRN each 11/03/22 [Rx] Nystatin 100,000 Unit/gm Powd [Mycostatin Powder] 1 applic TOPICAL BID 30 Days #1 each 11/03/22 [Rx] Follow up Appointment(s)/Referral(s): Home Health,[facility] [NON-STAFF] - 1 Week [facility], [REFERRING] - 1 Week Tiffany Graham [Primary Care Provider] - 11/05/22 10:45 am [facility], [NON-STAFF] - 1 Week Patient Instructions/Handouts: Furosemide (By mouth), Nystatin (On the skin), Heart Failure (DC), Anemia (DC) Activity/Diet/Wound Care/Special Instructions: Activity Limited until follow-up Follow-up with primary care provider on discharge Follow-up with infectious disease outpatient Follow-up cardiology outpatient Discharge Disposition: HOME WITH HOME HEALTH SERVICES
--- NOTE | 2022-11-04 15:36 | CDI ---
Documentation Clarification Form Date: 11/04/2022 03:17:27 PM From: Sharon Ratliff Phone: Admit Date: 10/26/2022 06:45:00 AM Patient Name: Reid Frost Visit Number: [id number] Discharge Date: 11/03/2022 06:24:00 PM ATTENTION: The Clinical Documentation Specialists (CDI) and [facility] Coding Staff appreciate your assistance in clarifying documentation. Please respond to the clarification below the line at the bottom and electronically sign. The CDI & [facility] Coding staff will review the response and follow-up if needed. Please note: Queries are made part of the Legal Health Record. If you have any questions, please contact the author of this message via ITS. Dr. Alva Sepulveda Unspecified CKD is documented Progress Note 10/27. Additional clarification regarding the stage of CKD is requested. History/Risk Factors: 72yo M, ACCHF, CAD, PAF, DMII, HTN, PAD, COPD w O2, [place], morbid obesity, ACHRF Clinical Indicators: Non-: 10/26 37 10/31 36 11/01 40 11/02 49 : 10/26 43 10/31 42 11/01 47 11/02 56 BUN: 10/26 49 10/28 25.9 10/30 30.3 10/31 34 11/01 30 11/02 24 Creatinine: 10/26 1.82 10/28 1.7 10/30 1.9 10/31 1.84 11/01 1.69 11/02 1.44 Treatment: Patient to continue vancomycin pharmacy to dose however due to monitor trough and kidney function closely because of hiselevatedcreatinine, case manager specialist has been alerted that the patient will need IV antibiotic on discharge. Please clarify the stage of the CKD, if known: [ ] CKD Stage 3a (GFR 45-59) [ ] CKD Stage 3b (GFR 30-44) [ ] Other, please specify [ ] Unable to determine (Template Last revised: April 2020) Dr. eWst's Patient MTDD
--- NOTE | 2022-11-05 21:14 | CDI ---
Documentation Clarification Form Date: 11/05/2022 09:11:46 PM From: Sharon Ratliff Phone: Admit Date: 10/26/2022 06:45:00 AM Patient Name: Reid Frost Visit Number: [id number] Discharge Date: 11/03/2022 06:24:00 PM ATTENTION: The Clinical Documentation Specialists (CDI) and [facility] Coding Staff appreciate your assistance in clarifying documentation. Please respond to the clarification below the line at the bottom and electronically sign. The CDI & [facility] Coding staff will review the response and follow-up if needed. Please note: Queries are made part of the Legal Health Record. If you have any questions, please contact the author of this message via ITS. Dr. Robert Sampson documented Progress Note 10/27. Additional clarification regarding the stage ofCKDis requested. History/Risk Factors: 72yo M, ACCHF,CAD,PAF,DMII,HTN,PAD,COPDw O2,CATALINA, morbid obesity, ACHRF Clinical Indicators: Non-: 10/26 37 10/31 36 11/01 40 11/02 49 : 10/26 43 10/31 42 11/01 47 11/02 56 BUN: 10/26 49 10/28 25.9 10/30 30.3 10/31 34 11/01 30 11/02 24 Creatinine: 10/26 1.82 10/28 1.7 10/30 1.9 10/31 1.84 11/01 1.69 11/02 1.44 Treatment: Patient to continue vancomycin pharmacy to dose however due to monitor trough and kidney function closely because of hiselevatedcreatinine, bilingual case manager has been alerted that the patient will need IV antibiotic on discharge. Please clarify the stage of theCKD, if known: [ ]CKD Stage 3a(GFR 45-59) [y ]CKDStage 3b (GFR 30-44) [ ] Other, please specify [ ] Unable to determine (Template Lastrevised: April 2020) MTDD
--- NOTE | 2022-11-10 13:11 | P.PN ---
Subjective Progress Note Date: 11/03/22 Principal diagnosis: Fever, IV site cellulitis and bacteremia Patient is a 72-year-old male with multiple comorbidities including diabetes peripheral vascular disease status post bilateral [id number] amputation recently underwent cardiac cath subsequently present to hospital worsening shortness of breath and possible CHF patient did develop a fever and concern for left upper extremity IV site cellulitis. On today's evaluation that is 11/03/2022, the patient continues to be afebrile , the patient is breathing comfortably on 2 L nasal cannula oxygen , the patient denies having any chest pain shortness of breath or cough no nausea no vomiting no abdominal pain and no diarrhea. Patient creatinine is 1.4 and a white count of 7.2 as of yesterday no CBC was done today , blood cultures 10/30/2022 so far negative Objective - Vital Signs Vital signs: Vital Signs Temp 97.8 F 11/03/22 06:55 Pulse 64 11/03/22 08:32 Resp 20 11/03/22 06:55 BP 121/55 11/03/22 06:55 Pulse Ox 96 11/03/22 08:18 FiO2 3 11/02/22 08:07 Intake & Output 11/02/22 11/03/22 11/03/22 18:59 06:59 18:59 Intake Total 540 Output Total 1650 1400 Balance -1650 -860 Weight 119 kg Intake: Oral 540 Output: Urine 1650 1400 Other: Voiding Method External Catheter External Catheter # Voids 0 # Bowel Movements 0 - Exam GENERAL DESCRIPTION: Elderly male lying in bed in no distress RESPIRATORY SYSTEM: Unlabored breathing , decreased breath sounds at bases HEART: S1 S2 regular rate and rhythm ,no loud murmurs ABDOMEN: Soft , no tenderness EXTREMITIES: Left antecubital fossa swelling and redness at the IV site has decreased in intensity - Labs CBC & Chem 7: 11/02/22 09:35 11/03/22 06:06 Labs: Abnormal Lab Results - Last 24 Hours (Table) 11/02/22 11/02/22 11/02/22 Range/Units 12:28 17:33 19:58 Creatinine (0.66-1.25) mg/dL POC Glucose (mg/dL) 136 H 211 H 143 H (70-110) mg/dL 11/03/22 11/03/22 Range/Units 06:06 06:56 Creatinine 1.46 H (0.66-1.25) mg/dL POC Glucose (mg/dL) 136 H (70-110) mg/dL Microbiology - Last 24 Hours (Table) 10/30/22 16:26 Blood Culture - Preliminary Blood Assessment and Plan (1) IV site infection Status: Acute Code(s): T82.7XXA - INFECT/INFLM REACT D/T OTH CARDI/VASC DEV/IMPLNT/GRFT, INIT SNOMED Code(s): 786740791 (2) MRSA bacteremia Status: Acute Code(s): R78.81 - BACTEREMIA; B95.62 - METHICILLIN RESIS STAPH INFCT [facility] Code(s): 36113655577515773 Plan: 1patient with a nosocomial fever in this patient presenting to the hospital with shortness of breath likely related to CHF now with a fever started while in hospital source could be left upper extremity IV site cellulitis and will need to cover for the gram-positive skin monique to the likely pathogen such as MRSA. 2blood cultures positive for MRSA repeat blood culture 10/30/2022 so far negati ve patient has cleared his bacteremia and patient did got a PICC line this morning. 3patient antibiotics will be switched to daptomycin 6 mg/kg daily for 10 days to finish course of therapy in the outpatient setting and close outpatient follow-up Dictation was produced using [employer] dictation software. please excuse any grammatical, word or spelling errors. Time with Patient: Less than 30
== END 2022-11-03 18:24 | disposition home health service (06) | DRG 871 ==
LOC: EC 01:12 → 5NMEDONC 06:45
PROVIDERS: ADMIT Internal Medicine; ATTEND Internal Medicine
PROC: 6A550Z3 Pheresis of Plasma, Single (ICD-10-PCS; principal; 2022-10-28)
PROC: 02HV33Z Insertion of Infusion Device into Superior Vena Cava, Percutaneous Approach (ICD-10-PCS; 2022-11-03)
DX: A41.89 Other specified sepsis (principal); G93.41 Metabolic encephalopathy; J96.21 Acute and chronic respiratory failure with hypoxia; I50.33 Acute on chronic diastolic (congestive) heart failure; T80.29XA Infection following other infusion, transfusion and therapeutic injection, initial encounter; F05 Delirium due to known physiological condition; Z68.43 Body mass index [BMI] 50.0-59.9, adult; L03.114 Cellulitis of left upper limb; N39.0 Urinary tract infection, site not specified; I13.0 Hypertensive heart and chronic kidney disease with heart failure and stage 1 through stage 4 chronic kidney disease, or unspecified chronic kidney disease; A41.50 Gram-negative sepsis, unspecified; E11.51 Type 2 diabetes mellitus with diabetic peripheral angiopathy without gangrene; E11.22 Type 2 diabetes mellitus with diabetic chronic kidney disease; E11.40 Type 2 diabetes mellitus with diabetic neuropathy, unspecified; E66.01 Morbid (severe) obesity due to excess calories; J44.9 Chronic obstructive pulmonary disease, unspecified; E11.65 Type 2 diabetes mellitus with hyperglycemia; I48.0 Paroxysmal atrial fibrillation; Z89.612 Acquired absence of left leg above knee; Z89.611 Acquired absence of right leg above knee; Z79.4 Long term (current) use of insulin; N18.32 Chronic kidney disease, stage 3b; D63.8 Anemia in other chronic diseases classified elsewhere; Z99.81 Dependence on supplemental oxygen; I08.0 Rheumatic disorders of both mitral and aortic valves; F32.A Depression, unspecified; D50.9 Iron deficiency anemia, unspecified; I25.10 Atherosclerotic heart disease of native coronary artery without angina pectoris; E78.5 Hyperlipidemia, unspecified; G47.33 Obstructive sleep apnea (adult) (pediatric); R04.0 Epistaxis; K21.9 Gastro-esophageal reflux disease without esophagitis; M19.90 Unspecified osteoarthritis, unspecified site; M19.041 Primary osteoarthritis, right hand; M19.042 Primary osteoarthritis, left hand; I87.8 Other specified disorders of veins; F17.210 Nicotine dependence, cigarettes, uncomplicated; Z20.822 Contact with and (suspected) exposure to COVID-19; I45.9 Conduction disorder, unspecified; F41.9 Anxiety disorder, unspecified; R32 Unspecified urinary incontinence; B96.89 Other specified bacterial agents as the cause of diseases classified elsewhere; Y84.8 Other medical procedures as the cause of abnormal reaction of the patient, or of later complication, without mention of misadventure at the time of the procedure; Z86.14 Personal history of Methicillin resistant Staphylococcus aureus infection; Z79.899 Other long term (current) drug therapy; Z95.5 Presence of coronary angioplasty implant and graft; Z79.01 Long term (current) use of anticoagulants; Z79.02 Long term (current) use of antithrombotics/antiplatelets; Z79.84 Long term (current) use of oral hypoglycemic drugs
CPT/HCPCS: 36415; 36430; 36573; 71045; 71046; 80048; 80053; 80202; 81001; 82272; 82565; 82607; 82728; 82747; 83036; 83540; 83550; 83605; 83735; 83880; 84132; 84145; 84484; 85025; 85027; 85610; 85730; 86850; 86900; 86901; 86920; 87040; 87077; 87186; 87449; 87635; 93005; 93306; 94640; 94760; 96372; 96374; 96376; 99285

== ENCOUNTER 2022-11-04 01:52 | Observation (INO) | payer MEDICARE ==
--- NOTE | 2022-11-04 02:27 | ED ---
General Adult HPI - General Chief complaint: Recheck/Abnormal Lab/Rx Stated complaint: picline removal Time Seen by Provider: 11/04/22 01:55 Source: EMS Mode of arrival: EMS - History of Present Illness Initial comments: Dictation was produced using [employer] dictation software. please excuse any grammatical, word or spelling errors. Chief Complaint: 72 y Old male presents with alleged accidental PICC line displacement History of Present Illness: Patient is 72-year-old male who was just discharged from the hospital 6 PM yesterday. He is brought in by EMS. States that he hadn't H Franc's PICC line was placed. States that he was itching it all of a sudden hemolyze he had pulled his entire PICC line out of his body. Patient receiving daptomycin IV through a PICC lineby interventional radiology. Patient has no other complaints. The ROS documented in this emergency department record has been reviewed and confirmed by me. Those systems with pertinent positive or negative responses have been documented in the HPI. All other systems are other negative and/or noncontributory. - Related Data Home Medications Medication Instructions Recorded Confirmed Escitalopram Oxalate [Lexapro] 10 mg PO DAILY 11/09/17 10/26/22 traZODone HCL 50 mg PO HS 11/09/17 10/26/22 Acetaminophen [Tylenol Arthritis] 650 mg PO Q6H PRN 09/29/22 10/26/22 Atorvastatin [Lipitor] 80 mg PO DAILY 09/29/22 10/26/22 Budesonide [Pulmicort] 0.5 mg INHALATION RT-BID 09/29/22 10/26/22 Cholecalciferol [Vitamin D3 (25 25 mcg PO DAILY 09/29/22 10/26/22 Mcg = 1000 Iu)] Famotidine [Pepcid] 20 mg PO DAILY 09/29/22 10/26/22 INSULIN LISPRO (HumaLOG) [humaLOG] 1 - 11 units SQ ACHS 09/29/22 10/26/22 Insulin Glargine [Lantus Vial] 20 unit SQ BID-W/MEALS 09/29/22 10/26/22 Ipratropium-Albuterol Nebulize 3 ml INHALATION RT-Q6H 09/29/22 10/26/22 [Duoneb 0.5 mg-3 mg/3 ml Soln] Magnesium Oxide [Mag-Ox] 400 mg PO DAILY 09/29/22 10/26/22 Multivitamins, Thera [Multivitamin 1 tab PO DAILY 09/29/22 10/26/22 (formulary)] Sennosides [Senokot] 8.6 mg PO BID PRN 09/29/22 10/26/22 Tamsulosin [Flomax] 0.4 mg PO DAILY 09/29/22 10/26/22 Previous Rx's Medication Instructions Recorded Apixaban [Eliquis] 5 mg PO BID tab 10/01/22 Clopidogrel [Plavix] 75 mg PO DAILY #30 tab 10/01/22 HYDROcodone/APAP 5-325MG [[place] 1 tab PO Q6HR PRN 3 Days #12 tab 10/01/22 5-325] NIFEdipine XL [Procardia XL] 90 mg PO DAILY #30 tab 10/01/22 Nitroglycerin Sl Tabs [Nitrostat] 0.4 mg SUBLINGUAL Q5M PRN #30 tab 10/01/22 Dapagliflozin Propanediol [Farxiga] 10 mg PO DAILY #30 tab 10/20/22 Acetaminophen Tab [Tylenol] 650 mg PO Q6HR PRN tab 11/03/22 DAPTOmycin [Cubicin] 500 mg IVPB Q24H 10 Days #10 each 11/03/22 Furosemide [Lasix] 40 mg PO BID@0900,1600 #60 tab 11/03/22 Ipratropium-Albuterol Nebulize 3 ml INHALATION RT-Q2H PRN each 11/03/22 [Duoneb 0.5 mg-3 mg/3 ml Soln] Nystatin 100,000 Unit/gm Powd 1 applic TOPICAL BID 30 Days #1 11/03/22 [Mycostatin Powder] each Allergies Allergy/AdvReac Type Severity Reaction Status Date / Time No Known Allergies Allergy Verified 11/04/22 02:06 Review of Systems ROS Statement: Those systems with pertinent positive or pertinent negative responses have been documented in the HPI. ROS Other: All systems not noted in ROS Statement are negative. 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 Date of last positivie culture/infection: 10/31/22 MDRO Source:: Blood Past Surgical History: Heart Catheterization Additional Past Surgical History / Comment(s): bilateral great toes amputated, 2nd toe lt foot partial amputation, multiple debridements of venous ulcers, colonoscopy, surgery as a child for undescended testicle., ABOVE THE KNEE AMPUTATION RIGHT LEG (JUNE 2017-[facility]) Past Anesthesia/Blood Transfusion Reactions: No Reported Reaction Date of Last Stent Placement:: 10/17/2022 Past Psychological History: Anxiety, Depression Smoking Status: Current every day smoker Past Alcohol Use History: Occasional Past Drug Use History: None Reported - Past Family History Father Family Medical History: Cancer Additional Family Medical History / Comment(s): Father from brain cancer Mother Family Medical History: Eye Disorder Additional Family Medical History / Comment(s): Glaucoma. Mother is . General Exam - General Exam Comments Initial Comments: PHYSICAL EXAM: General Impression: Alert and oriented x3, not in acute distress HEENT: Normocephalic atraumatic, extra-ocular movements intact, pupils equal and reactive to light bilaterally, mucous membranes moist. Cardiovascular: Heart regular rate and rhythm Chest: Able to complete full sentences, no retractions, no tachypnea Abdomen: abdomen soft, non-tender, non-distended, no organomegaly Musculoskeletal: Bilateral lower extremity amputee Neurological: CN II-XII grossly intact, no focal motor or sensory deficits noted Skin: Intact with no visualized rashes Psych: Normal affect and mood Course Vital Signs 11/04/22 02:01 Temperature 98 F Pulse Rate 87 Respiratory 18 Rate Blood Pressure 125/94 O2 Sat by Pulse 97 Oximetry Medical Decision Making - Medical Decision Making Was pt. sent in by a medical professional or institution (, PA, MANAGING PRINCIPAL, urgent care, hospital, or fdc...) When possible be specific @ -No Did you speak to anyone other than the patient for history (EMS, parent, family, police, friend...)? What history was obtained from this source @ -No Did you review nursing and triage notes (agree or disagree)? Why? @ -I reviewed and agree with nursing and triage notes Were old charts reviewed (outside hosp., previous admission, EMS record, old EKG, old radiological studies, urgent care reports/EKG's, fdc records)? Report findings @ -Prior admission notes reviewed stated that patient had PICC line placed by interventional radiology for infection Differential Diagnosis (chest pain, altered mental status, abdominal pain women, abdominal pain men, vaginal bleeding, musculoskeletal, weakness, fever, dyspnea, syncope, headache, dizziness, GI bleed, back pain, seizure, CVA, palpatations, mental health)? @ -not applicable EKG interpreted by me (3pts min.). @ -None done X-rays interpreted by me (1pt min.). @ -None done CT interpreted by me (1pt min.). @ -None done U/S interpreted by me (1pt. min.). @ -None done What testing was considered but not performed or refused? (CT, X-rays, U/S, labs)? Why? @ -None What meds were considered but not given or refused? Why? @ -None Did you discuss the management of the patient with other professionals (professionals i.e. , PA, MANAGING PRINCIPAL, lab, RT, psych nurse, social sciences instructor, gis software engineer, teacher, debt recovery officer, catalytic case operator)? Give summary @ -Case discussed with Hal Lee for admission Was smoking cessation discussed for >3mins.? @ -No Was critical care preformed (if so, how long)? @ -No Were there social determinants of health that impacted care today? How? (Homelessness, low income, unemployed, alcoholism, drug addiction, transportation, low edu. Level, literacy, decrease access to med. care, penitentiary, rehab)? @ -No Was there de-escalation of care discussed even if they declined (Discuss DNR or withdrawal of care, Hospice)? DNR status @ -No What co-morbidities impacted this encounter? (DM, HTN, Smoking, COPD, CAD, Cancer, CVA, ARF, Chemo, Hep., AIDS, mental health diagnosis, sleep apnea, morbid obesity)? @ -None Was patient admitted / discharged? Hospital course, mention meds given and route, prescriptions, significant lab abnormalities, going to OR and other pertinent info. @ -72 Year-old male presents emergency department for PICC line displacement. Vital signs stable. Patient well-appearing. Patient requiring outpatient IV antibiotics. Patient be admitted observation for placement of PICC line Undiagnosed new problem with uncertain prognosis? @ -No Drug Therapy requiring intensive monitoring for toxicity (Heparin, Nitro, Insulin, Cardizem)? @ -No Were any procedures done? @ -No Diagnosis/symptom? Acute, or Chronic, or Acute on Chronic? Uncomplicated (without systemic symptoms) or Complicated (systemic symptoms)? @ -PICC line displacement Side effects of treatment? @ -No Exacerbation, Progression, or Severe Exacerbation? @ -No Poses a threat to life or bodily function? How? (Chest pain, [place], [place], pneumonia, PE, COPD, DKA, ARF, appy, cholecystitis, CVA, Diverticulitis, Homicidal, Suicidal, threat to staff... and all critical care pts) @ -No Disposition Clinical Impression: PIC line (peripherally inserted central catheter) removal Disposition: ADMITTED IP TO THIS HOSP Condition: Fair Referrals: Tiffany Graham [Primary Care Provider] - 1-2 days Decision Time: 02:39
[2022-11-04] MEDS ORDERED: NALOXONE 0.4 MG/ML 1 ML VIAL IV PRN (02:35)
[2022-11-04] MEDS ORDERED: HEPARIN SODIUM,PORCINE 5,000 UNIT/ML 1 ML VIAL SQ SCH (08:00)
[2022-11-04 08:10] LABS: Glucose,Whole Blood 125 mg/dL (70-110)
[2022-11-04 09:05] LABS: Calcium 8.5 mg/dL (8.7-10.3); Carbon Dioxide 30.4 mmol/L (21.6-31.8); Chloride 97 mmol/L (96-109); Glucose 113 mg/dL (70-110); Sodium 140 mmol/L (135-145)
[2022-11-04] MEDS ORDERED: ACETAMINOPHEN TAB 325 MG TAB PO PRN (09:32)
[2022-11-04] MEDS ORDERED: DAPTOmycin 500 MG VIAL IVPB SCH (09:45)
[2022-11-04] MEDS: APIXABAN 5 MG TAB PO SCH ×2 (10:13→20:12)
[2022-11-04] MEDS ORDERED: LIDOCAINE 1% INJ 10MG/ML (5 ML VIAL-PF) SQ ONE (10:31)
[2022-11-04 10:56] LABS: Glucose,Whole Blood 242 mg/dL (70-110)
[2022-11-04] MEDS: DAPAGLIFLOZIN PROPANEDIOL 10 MG TABLET PO SCH (10:56)
[2022-11-04] MEDS: INSULIN DETEMIR (LEVEMIR) 100 UNIT/ML SYR SQ SCH ×2 (10:56→18:17)
[2022-11-04] MEDS: CLOPIDOGREL 75 MG TAB PO SCH (10:56)
[2022-11-04] MEDS: FAMOTIDINE 20 MG TAB PO SCH (10:56)
[2022-11-04] MEDS: TAMSULOSIN 0.4 MG CAP.ER.24H PO SCH (10:57)
[2022-11-04] MEDS: CHOLECALCIFEROL 25 MCG (1000 IU) TABLET PO SCH (10:57)
[2022-11-04] MEDS: ATORVASTATIN 80 MG TAB PO SCH (10:57)
[2022-11-04] MEDS: NIFEdipine XL 90 MG TAB.ER.24 PO SCH (10:57)
[2022-11-04] MEDS: ESCITALOPRAM 10 MG TAB PO SCH (10:57)
--- NOTE | 2022-11-04 11:01 | IR ---
PICC LINE PLACEMENT: HISTORY: Infection requiring long-term antibiotic therapy. Patient has inadvertently pulled out his left-sided PICC line. PROCEDURE: Ultrasound and fluoroscopic guidance of PICC line placement. COMPLICATIONS: None ANESTHESIA: 1. 1% Lidocaine locally. FINDINGS/TECHNIQUE: The procedure was explained to the patient. The risks, complications, benefits and alternatives were discussed and any questions were answered. Informed consent was obtained. The patient was placed supine on the fluoroscopic table and prepped and draped in the usual sterile fash ion. Utilizing a 21 gauge needle and sonographic and fluoroscopic guidance, access in the right cep halic vein was achieved and there is placement of a 0.018 guidewire. The vein is patent. A 4-F farooq th was placed over the guidewire. The guidewire and dilator were removed and a 4-F. PICC line was pl aced through the sheath with the tip at the level of the SVC. The sheath was removed, the catheter w as flushed and sutured into position. The patient was stable throughout the procedure and remained s table upon discharge from the Department of Radiology. The vein puncture was patent under ultrasound. A mireles scale image was obtained to document patency of the vein punctured. All elements of the maximal barrier technique were utilized. FLUOROSCOPY TIME: DAP 0.453Gy cm2 IMPRESSION: Successful PICC line placement under ultrasound and fluoroscopic guidance.
[2022-11-04 13:00] LABS: Glucose,Whole Blood 230 mg/dL (70-110)
--- NOTE | 2022-11-04 13:08 | P.HPIM ---
History of Present Illness H&P Date: 11/04/22 * 72-year-old gentleman with past medical history significant for chronic hypoxic respiratory failure history of congestive heart failure preserved ejection fraction, who was recently discharged on 11/03/22 admitted for sepsis secondary to urinary tract infection. Patient was noted to have left upper extremity cellulitis. During the hospital stay patient was seen by infectious disease and had a PICC line placed and was discharged on IV daptomycin to complete 10 day course * Patient went home and was itching on the PICC line site and started having bleeding. Patient noted he had displaced the PICC line site and called his daughter who called EMS and was brought back to the hospital * Workup obtained upon admission include basic metabolic panel which showed mild hypokalemia. * Consult was obtained from radiology for PICC line placement * Patient was given dose of daptomycin * Home medications were reviewed and reconciled REVIEW OF SYSTEMS: CONSTITUTIONAL: No fever, no malaise, no fatigue. HEENT: No recent visual problems or hearing problems. Denied any sore throat. CARDIOVASCULAR: No chest pain, orthopnea, PND, no palpitations, no syncope. PULMONARY: No shortness of breath, no cough, no hemoptysis. GASTROINTESTINAL: No diarrhea, no nausea, no vomiting, no abdominal pain. NEUROLOGICAL: No headaches, no weakness, no numbness. HEMATOLOGICAL: Denies any bleeding or petechiae. GENITOURINARY: Denies any burning micturition, frequency, or urgency. MUSCULOSKELETAL/RHEUMATOLOGICAL: Denies any joint pain, swelling, or any muscle pain. ENDOCRINE: Denies any polyuria or polydipsia. The rest of the 14-point review of systems is negative. PHYSICAL EXAMINATION: GENERAL: The patient is alert and oriented x3, not in any acute distress. Well developed, well nourished. Bilateral amputation lower extremity, obese, ill appearance HEENT: Pupils are round and equally reacting to light. EOMI. No scleral icterus. No conjunctival pallor. Normocephalic, atraumatic. No pharyngeal erythema. No thyromegaly. CARDIOVASCULAR: S1 and S2 present. No murmurs, rubs, or gallops. PULMONARY: Chest is clear to auscultation, no wheezing or crackles. ABDOMEN: Soft, nontender, nondistended, normoactive bowel sounds. No palpable organomegaly. MUSCULOSKELETAL: No joint swelling or deformity. EXTREMITIES: No cyanosis, clubbing, or pedal edema. NEUROLOGICAL: Gross neurological examination did not reveal any focal deficits. . 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 Date of last positivie culture/infection: 10/31/22 MDRO Source:: Blood Past Surgical History: Heart Catheterization Additional Past Surgical History / Comment(s): bilateral great toes amputated, 2nd toe lt foot partial amputation, multiple debridements of venous ulcers, colonoscopy, surgery as a child for undescended testicle., ABOVE THE KNEE AMPUTATION RIGHT LEG (JUNE 2017-[facility]) Past Anesthesia/Blood Transfusion Reactions: No Reported Reaction Date of Last Stent Placement:: 10/17/2022 Past Psychological History: Anxiety, Depression Additional Psychological History / Comment(s): . Smoking Status: Current every day smoker Past Alcohol Use History: Occasional Additional Past Alcohol Use History / Comment(s): no alcohol currently Past Drug Use History: None Reported - Past Family History Father Family Medical History: Cancer Additional Family Medical History / Comment(s): Father from brain cancer Mother Family Medical History: Eye Disorder Additional Family Medical History / Comment(s): Glaucoma. Mother is . Medications and Allergies Home Medications Medication Instructions Recorded Confirmed Type Escitalopram Oxalate [Lexapro] 10 mg PO DAILY 11/09/17 11/04/22 History traZODone HCL 50 mg PO HS 11/09/17 11/04/22 History Acetaminophen [Tylenol Arthritis] 650 mg PO Q6H PRN 09/29/22 11/04/22 History Atorvastatin [Lipitor] 80 mg PO DAILY 09/29/22 11/04/22 History Budesonide [Pulmicort] 0.5 mg INHALATION RT-BID 09/29/22 11/04/22 History Cholecalciferol [Vitamin D3 (25 25 mcg PO DAILY 09/29/22 11/04/22 History Mcg = 1000 Iu)] Famotidine [Pepcid] 20 mg PO DAILY 09/29/22 11/04/22 History INSULIN LISPRO (HumaLOG) [humaLOG] 1 - 11 units SQ ACHS 09/29/22 11/04/22 History Insulin Glargine [Lantus Vial] 20 unit SQ BID-W/MEALS 09/29/22 11/04/22 History Ipratropium-Albuterol Nebulize 3 ml INHALATION RT-Q6H 09/29/22 11/04/22 History [Duoneb 0.5 mg-3 mg/3 ml Soln] Magnesium Oxide [Mag-Ox] 400 mg PO DAILY 09/29/22 11/04/22 History Multivitamins, Thera [Multivitamin 1 tab PO DAILY 09/29/22 11/04/22 History (formulary)] Sennosides [Senokot] 8.6 mg PO BID PRN 09/29/22 11/04/22 History Tamsulosin [Flomax] 0.4 mg PO DAILY 09/29/22 11/04/22 History Apixaban [Eliquis] 5 mg PO BID tab 10/01/22 11/04/22 Rx Clopidogrel [Plavix] 75 mg PO DAILY #30 tab 10/01/22 11/04/22 Rx HYDROcodone/APAP 5-325MG [[place] 1 tab PO Q6HR PRN 3 Days #12 tab 10/01/22 11/04/22 Rx 5-325] NIFEdipine XL [Procardia XL] 90 mg PO DAILY #30 tab 10/01/22 11/04/22 Rx Nitroglycerin Sl Tabs [Nitrostat] 0.4 mg SUBLINGUAL Q5M PRN #30 tab 10/01/22 11/04/22 Rx Dapagliflozin Propanediol [Farxiga] 10 mg PO DAILY #30 tab 10/20/22 11/04/22 Rx Acetaminophen Tab [Tylenol] 650 mg PO Q6HR PRN tab 11/03/22 11/04/22 Rx DAPTOmycin [Cubicin] 500 mg IVPB Q24H 10 Days #10 each 11/03/22 11/04/22 Rx Furosemide [Lasix] 40 mg PO BID@0900,1600 #60 tab 11/03/22 11/04/22 Rx Ipratropium-Albuterol Nebulize 3 ml INHALATION RT-Q2H PRN each 11/03/22 11/04/22 Rx [Duoneb 0.5 mg-3 mg/3 ml Soln] Nystatin 100,000 Unit/gm Powd 1 applic TOPICAL BID 30 Days #1 11/03/22 11/04/22 Rx [Mycostatin Powder] each Allergies Allergy/AdvReac Type Severity Reaction Status Date / Time No Known Allergies Allergy Verified 11/04/22 06:44 Physical Exam Vitals: Vital Signs Temp Pulse Pulse Resp BP BP BP 11/04/22 07:00 99.3 F 17 135/54 11/04/22 04:00 57 L 18 11/04/22 03:25 98.1 F 57 L 16 166/55 11/04/22 02:01 98 F 87 18 125/94 Pulse Ox 11/04/22 07:00 99 11/04/22 04:00 11/04/22 03:25 98 11/04/22 02:01 97 Intake and Output 11/03/22 11/04/22 11/04/22 22:59 06:59 14:59 Intake Total 118 Balance 118 Intake: Oral 118 Other: Voiding Method External Catheter External Catheter # Voids 1 Weight 122 kg Results CBC & Chem 7: 11/04/22 05:26 Labs: Abnormal Lab Results - Last 24 Hours (Table) 11/04/22 11/04/22 11/04/22 Range/Units 05:26 08:08 10:54 Potassium 3.0 L (3.5-5.5) mmol/L Anion Gap 12.60 H (4.00-12.00) mmol/L Est GFR (CKD-EPI) 54 L (>=60) BUN/Creatinine Ratio 10.00 L (12.00-20.00) Ratio Glucose 113 H (70-110) mg/dL POC Glucose (mg/dL) 125 H 242 H (70-110) mg/dL Calcium 8.5 L (8.7-10.3) mg/dL 11/04/22 Range/Units 12:58 Potassium (3.5-5.5) mmol/L Anion Gap (4.00-12.00) mmol/L Est GFR (CKD-EPI) (>=60) BUN/Creatinine Ratio (12.00-20.00) Ratio Glucose (70-110) mg/dL POC Glucose (mg/dL) 230 H (70-110) mg/dL Calcium (8.7-10.3) mg/dL Thrombosis Risk Factor Assmnt - Choose All That Apply Any of the Below Risk Factors Present?: Yes Each Factor Represents 1 point: Obesity (BMI >25) Other Risk Factors: Yes Each Risk Factor Represents 2 Points: Age 61-74 years Other congenital or acquired thrombophilia - If yes, enter type in comment: No Thrombosis Risk Factor Assessment Total Risk Factor Score: 3 Thrombosis Risk Factor Assessment Level: Moderate Risk Assessment and Plan Assessment: Assessment and plan * Status post PICC line malfunction, dislodged * Recent sepsis with urinary tract infection and bacteremia * Morbid obesity * History of BK bilateral lower extremity * Diabetes mellitus type 2 * COPD * Home medications reviewed and reconciled * Potassium replaced * Cardiology consulted for PICC line placement * Case management consulted to coordinate discharge, to continue with daptomycin outpatient and complete 10 day course as previously scheduled * Plan to discharge home after PICC line placement
[2022-11-04] MEDS ORDERED: POTASSIUM CHLORIDE ER 20 MEQ TAB.ER PO STA (13:11)
--- NOTE | 2022-11-04 13:11 | P.DS ---
Providers Date of admission: 11/04/22 02:36 Expected date of discharge: 11/04/22 Attending physician: Karen Narayan Primary care physician: [facility] Hospital Course: 72-year-old gentleman with past medical history significant for chronic hypoxic respiratory failure history of congestive heart failure preserved ejection fraction, who was recently discharged on 11/03/22 admitted for sepsis secondary to urinary tract infection. Patient was noted to have left upper extremity cellulitis. During the hospital stay patient was seen by infectious disease and had a PICC line placed and was discharged on IV daptomycin to complete 10 day course * Patient went home and was itching on the PICC line site and started having bleeding. Patient noted he had displaced the PICC line site and called his daughter who called EMS and was brought back to the hospital * Workup obtained upon admission include basic metabolic panel which showed mild hypokalemia. * Consult was obtained from radiology for PICC line placement * Patient was given dose of daptomycin * Home medications were reviewed and reconciled REVIEW OF SYSTEMS: CONSTITUTIONAL: No fever, no malaise, no fatigue. HEENT: No recent visual problems or hearing problems. Denied any sore throat. CARDIOVASCULAR: No chest pain, orthopnea, PND, no palpitations, no syncope. PULMONARY: No shortness of breath, no cough, no hemoptysis. GASTROINTESTINAL: No diarrhea, no nausea, no vomiting, no abdominal pain. NEUROLOGICAL: No headaches, no weakness, no numbness. HEMATOLOGICAL: Denies any bleeding or petechiae. GENITOURINARY: Denies any burning micturition, frequency, or urgency. MUSCULOSKELETAL/RHEUMATOLOGICAL: Denies any joint pain, swelling, or any muscle pain. ENDOCRINE: Denies any polyuria or polydipsia. The rest of the 14-point review of systems is negative. PHYSICAL EXAMINATION: GENERAL: The patient is alert and oriented x3, not in any acute distress. Well developed, well nourished. Bilateral amputation lower extremity, obese, ill appearance HEENT: Pupils are round and equally reacting to light. EOMI. No scleral icterus. No conjunctival pallor. Normocephalic, atraumatic. No pharyngeal erythema. No thyromegaly. CARDIOVASCULAR: S1 and S2 present. No murmurs, rubs, or gallops. PULMONARY: Chest is clear to auscultation, no wheezing or crackles. ABDOMEN: Soft, nontender, nondistended, normoactive bowel sounds. No palpable organomegaly. MUSCULOSKELETAL: No joint swelling or deformity. EXTREMITIES: No cyanosis, clubbing, or pedal edema. NEUROLOGICAL: Gross neurological examination did not reveal any focal deficits. . Assessment: Assessment and plan * Status post PICC line malfunction, dislodged * Recent sepsis with urinary tract infection and bacteremia * MRSA bacteremia * Morbid obesity * History of BK bilateral lower extremity * Diabetes mellitus type 2 * COPD * Hx of atrial fibrillation * Home medications reviewed and reconciled * Potassium replaced * Cardiology consulted for PICC line placement * Case management consulted to coordinate discharge, to continue with daptomycin outpatient and complete 10 day course as previously scheduled * Plan to discharge home after PICC line placement Patient Condition at Discharge: Fair Plan - Discharge Summary Discharge Rx Participant: Yes New Discharge Prescriptions: Continue traZODone HCL 50 mg PO HS Escitalopram Oxalate [Lexapro] 10 mg PO DAILY Multivitamins, Thera [Multivitamin (formulary)] 1 tab PO DAILY Magnesium Oxide [Mag-Ox] 400 mg PO DAILY INSULIN LISPRO (HumaLOG) [humaLOG] 1 - 11 units SQ ACHS Insulin Glargine [Lantus Vial] 20 unit SQ BID-W/MEALS Cholecalciferol [Vitamin D3 (25 Mcg = 1000 Iu)] 25 mcg PO DAILY Budesonide [Pulmicort] 0.5 mg INHALATION RT-BID Atorvastatin [Lipitor] 80 mg PO DAILY Apixaban [Eliquis] 5 mg PO BID tab NIFEdipine XL [Procardia XL] 90 mg PO DAILY #30 tab Dapagliflozin Propanediol [Farxiga] 10 mg PO DAILY #30 tab DAPTOmycin [Cubicin] 500 mg IVPB Q24H 10 Days #10 each Nystatin 100,000 Unit/gm Powd [Mycostatin Powder] 1 applic TOPICAL BID 30 Days #1 each Acetaminophen Tab [Tylenol] 650 mg PO Q6HR PRN tab PRN Reason: Fever and/ or Mild Pain Tamsulosin [Flomax] 0.4 mg PO DAILY Sennosides [Senokot] 8.6 mg PO BID PRN PRN Reason: Constipation Ipratropium-Albuterol Nebulize [Duoneb 0.5 mg-3 mg/3 ml Soln] 3 ml INHALATION RT-Q6H Famotidine [Pepcid] 20 mg PO DAILY Acetaminophen [Tylenol Arthritis] 650 mg PO Q6H PRN PRN Reason: Fever And/ Or Pain Nitroglycerin Sl Tabs [Nitrostat] 0.4 mg SUBLINGUAL Q5M PRN #30 tab PRN Reason: Chest Pain Clopidogrel [Plavix] 75 mg PO DAILY #30 tab HYDROcodone/APAP 5-325MG [[place] 5-325] 1 tab PO Q6HR PRN 3 Days #12 tab PRN Reason: Pain Ipratropium-Albuterol Nebulize [Duoneb 0.5 mg-3 mg/3 ml Soln] 3 ml INHALATION RT-Q2H PRN each PRN Reason: Shortness Of Breath Or Wheezing Furosemide [Lasix] 40 mg PO BID@0900,1600 #60 tab Discharge Medication List Escitalopram Oxalate [Lexapro] 10 mg PO DAILY 11/09/17 [History] traZODone HCL 50 mg PO HS 11/09/17 [History] Acetaminophen [Tylenol Arthritis] 650 mg PO Q6H PRN 09/29/22 [History] Atorvastatin [Lipitor] 80 mg PO DAILY 09/29/22 [History] Budesonide [Pulmicort] 0.5 mg INHALATION RT-BID 09/29/22 [History] Cholecalciferol [Vitamin D3 (25 Mcg = 1000 Iu)] 25 mcg PO DAILY 09/29/22 [History] Famotidine [Pepcid] 20 mg PO DAILY 09/29/22 [History] INSULIN LISPRO (HumaLOG) [humaLOG] 1 - 11 units SQ ACHS 09/29/22 [History] Insulin Glargine [Lantus Vial] 20 unit SQ BID-W/MEALS 09/29/22 [History] Ipratropium-Albuterol Nebulize [Duoneb 0.5 mg-3 mg/3 ml Soln] 3 ml INHALATION RT-Q6H 09/29/22 [History] Magnesium Oxide [Mag-Ox] 400 mg PO DAILY 09/29/22 [History] Multivitamins, Thera [Multivitamin (formulary)] 1 tab PO DAILY 09/29/22 [History] Sennosides [Senokot] 8.6 mg PO BID PRN 09/29/22 [History] Tamsulosin [Flomax] 0.4 mg PO DAILY 09/29/22 [History] Apixaban [Eliquis] 5 mg PO BID tab 10/01/22 [Rx] Clopidogrel [Plavix] 75 mg PO DAILY #30 tab 10/01/22 [Rx] HYDROcodone/APAP 5-325MG [[place] 5-325] 1 tab PO Q6HR PRN 3 Days #12 tab 10/01/22 [Rx] NIFEdipine XL [Procardia XL] 90 mg PO DAILY #30 tab 10/01/22 [Rx] Nitroglycerin Sl Tabs [Nitrostat] 0.4 mg SUBLINGUAL Q5M PRN #30 tab 10/01/22 [Rx] Dapagliflozin Propanediol [Farxiga] 10 mg PO DAILY #30 tab 10/20/22 [Rx] Acetaminophen Tab [Tylenol] 650 mg PO Q6HR PRN tab 11/03/22 [Rx] DAPTOmycin [Cubicin] 500 mg IVPB Q24H 10 Days #10 each 11/03/22 [Rx] Furosemide [Lasix] 40 mg PO BID@0900,1600 #60 tab 11/03/22 [Rx] Ipratropium-Albuterol Nebulize [Duoneb 0.5 mg-3 mg/3 ml Soln] 3 ml INHALATION RT-Q2H PRN each 11/03/22 [Rx] Nystatin 100,000 Unit/gm Powd [Mycostatin Powder] 1 applic TOPICAL BID 30 Days #1 each 11/03/22 [Rx] Follow up Appointment(s)/Referral(s): [facility], [REFERRING] - 1 Week Tiffany Graham [Primary Care Provider] - 1-2 days [facility] [NON-STAFF] - 1 Week [facility], [NON-STAFF] - 1 Week Discharge Disposition: HOME WITH HOME HEALTH SERVICES
[2022-11-04] MEDS: DAPTOmycin 500 MG in SODIUM CHLORIDE 0.9% 50 ML IVPB SCH (13:14)
[2022-11-04] MEDS: SODIUM CHLORIDE 0.9% 1,000 ML IV SCH (13:14)
[2022-11-04] MEDS: IPRATROPIUM-ALBUTEROL 3 ML NEB INHALATION SCH ×3 (15:06→20:10)
[2022-11-04 17:00] LABS: Glucose,Whole Blood 276 mg/dL (70-110)
[2022-11-04] MEDS: FUROSEMIDE 40 MG TAB PO SCH (18:17)
[2022-11-04] MEDS: BUDESONIDE 0.5 MG/2 ML NEBU INHALATION SCH (19:57)
[2022-11-04] MEDS ORDERED: IPRATROPIUM-ALBUTEROL 3 ML NEB INHALATION PRN (20:00)
[2022-11-04] MEDS: traZODone HCL 50 MG TAB PO SCH (20:28)
[2022-11-04] MEDS: HYDROcodone/APAP 5-325MG 1 EACH TAB PO PRN (20:28)
[2022-11-05 04:28] LABS: Glucose,Whole Blood 129 mg/dL (70-110)
[2022-11-05] MEDS: INSULIN DETEMIR (LEVEMIR) 100 UNIT/ML SYR SQ SCH ×2 (06:01→18:24)
[2022-11-05] MEDS: BUDESONIDE 0.5 MG/2 ML NEBU INHALATION SCH ×3 (08:11→20:30)
[2022-11-05] MEDS: IPRATROPIUM-ALBUTEROL 3 ML NEB INHALATION SCH ×5 (08:11→20:30)
[2022-11-05] MEDS: APIXABAN 5 MG TAB PO SCH ×2 (08:55→20:48)
[2022-11-05] MEDS: ESCITALOPRAM 10 MG TAB PO SCH (09:11)
[2022-11-05] MEDS: TAMSULOSIN 0.4 MG CAP.ER.24H PO SCH (09:11)
[2022-11-05] MEDS: ATORVASTATIN 80 MG TAB PO SCH (09:11)
[2022-11-05] MEDS: FAMOTIDINE 20 MG TAB PO SCH (09:11)
[2022-11-05] MEDS: FUROSEMIDE 40 MG TAB PO SCH ×2 (09:11→18:24)
[2022-11-05] MEDS: MAGNESIUM OXIDE 400 MG TAB PO SCH (09:11)
[2022-11-05] MEDS: DAPAGLIFLOZIN PROPANEDIOL 10 MG TABLET PO SCH (09:11)
[2022-11-05] MEDS: CLOPIDOGREL 75 MG TAB PO SCH (09:11)
[2022-11-05] MEDS: CHOLECALCIFEROL 25 MCG (1000 IU) TABLET PO SCH (09:11)
[2022-11-05] MEDS: NIFEdipine XL 90 MG TAB.ER.24 PO SCH (09:11)
[2022-11-05] MEDS: SODIUM CHLORIDE 0.9% 1,000 ML IV SCH (11:08)
[2022-11-05] MEDS ORDERED: DEXTROSE 50% SYRINGE 50 ML IVP PRN ×2 (12:01)
--- NOTE | 2022-11-05 12:04 | P.PN ---
Subjective Progress Note Date: 11/05/22 * 72-year-old gentleman with past medical history significant for chronic hypoxic respiratory failure history of congestive heart failure preserved ejection fraction, who was recently discharged on 11/03/22 admitted for sepsis secondary to urinary tract infection. Patient was noted to have left upper extremity cellulitis. During the hospital stay patient was seen by infectious disease and had a PICC line placed and was discharged on IV daptomycin to complete 10 day course * Patient went home and was itching on the PICC line site and started having bleeding. Patient noted he had displaced the PICC line site and called his daughter who called EMS and was brought back to the hospital * Workup obtained upon admission include basic metabolic panel which showed mild hypokalemia. * Consult was obtained from radiology for PICC line placement * Patient was given dose of daptomycin to be continued for management of MRSA bacteremia * 11/04/22 : Patient had PICC line placed and was working fairly well. With plan to discharge home however later in the day patient started to have bleeding from PICC line site hence Eliquis was held nursing staff was notified. And plan was to monitor overnight and discharged the next morning * 11/05/2022: Patient dislodged his PICC line again. Requested Family Nurse to ladan ce a midline since antibiotic will be 7 more days post discharge. RN instructed to hold Eliquis once midline is Lea patient to receive his nighttime dose of Eliquis and be monitored overnight with plan to discharge on 11/06 if no issues Objective - Vital Signs Vital signs: Vital Signs Temp 98.1 F 11/05/22 07:00 Pulse 64 11/05/22 11:08 Resp 18 11/05/22 07:00 BP 162/61 11/05/22 07:00 Pulse Ox 100 11/05/22 08:16 FiO2 Intake & Output 11/04/22 11/05/22 11/05/22 18:59 06:59 18:59 Intake Total 236 118 Output Total 1200 650 Balance -964 -650 118 Intake: Oral 236 118 Output: Urine 1200 650 Other: Voiding Method External Catheter External Catheter External Catheter # Bowel Movements 0 - Exam GENERAL: The patient is alert and oriented x3, not in any acute distress. Well developed, well nourished. Bilateral amputation lower extremity, obese, ill appearance HEENT: Pupils are round and equally reacting to light. EOMI. No scleral icterus. No conjunctival pallor. Normocephalic, atraumatic. No pharyngeal erythema. No thyromegaly. CARDIOVASCULAR: S1 and S2 present. No murmurs, rubs, or gallops. PULMONARY: Chest is clear to auscultation, no wheezing or crackles. ABDOMEN: Soft, nontender, nondistended, normoactive bowel sounds. No palpable organomegaly. MUSCULOSKELETAL: No joint swelling or deformity. EXTREMITIES: No cyanosis, clubbing, or pedal edema. NEUROLOGICAL: Gross neurological examination did not reveal any focal deficits. . - Labs CBC & Chem 7: 11/04/22 05:26 Labs: Abnormal Lab Results - Last 24 Hours (Table) 11/04/22 11/04/22 11/05/22 Range/Units 12:58 16:59 04:27 POC Glucose (mg/dL) 230 H 276 H 129 H (70-110) mg/dL Assessment and Plan Assessment: Assessment and plan * Status post PICC line malfunction, dislodged * Recent admission sepsis with urinary tract infection and bacteremia with MRSA * Coronary artery disease with PCI to LAD * Peripheral arterial disease * Morbid obesity * History of below-knee amputation bilateral lower extremity * Diabetes mellitus type 2 * COPD * History of atrial fibrillation * In regards to dislodgment of PICC line, requested a midline placement now since antibiotic will be less than 7 days. Patient was discharged on 11/03 with plan to complete 10 day course of daptomycin outpatient with home infusions and home care * In regards to history of diabetes mellitus, Accu-Cheks before meals at bedtime. Continue patient on 5 L, continue Levemir. Continue patient on sliding scale insulin * Regards to COPD this is a chronic problem stable at this point * In regards to history of coronary artery disease, patient had PCI 10/17/2022 2 LAD. Continue Plavix. Continue Eliquis * Case management consulted to coordinate discharge, to continue with daptomycin outpatient and complete 7 day course as previously scheduled * Plan to discharge home after midline placement and working well
[2022-11-05 12:22] LABS: Glucose,Whole Blood 174 mg/dL (70-110)
[2022-11-05] MEDS: INSULIN ASPART (NovoLOG) 100 UNIT/ML VIAL SQ SCH ×3 (12:44→20:48)
[2022-11-05] MEDS: DAPTOmycin 500 MG in SODIUM CHLORIDE 0.9% 50 ML IVPB SCH (13:51)
[2022-11-05] MEDS: HYDROcodone/APAP 5-325MG 1 EACH TAB PO PRN (14:42)
[2022-11-05 16:55] LABS: Glucose,Whole Blood 174 mg/dL (70-110)
[2022-11-05 20:23] LABS: Glucose,Whole Blood 283 mg/dL (70-110)
[2022-11-05] MEDS: traZODone HCL 50 MG TAB PO SCH (20:48)
[2022-11-06 06:08] LABS: Glucose,Whole Blood 97 mg/dL (70-110)
[2022-11-06] MEDS: INSULIN ASPART (NovoLOG) 100 UNIT/ML VIAL SQ SCH ×2 (06:09→12:35)
[2022-11-06] MEDS: INSULIN DETEMIR (LEVEMIR) 100 UNIT/ML SYR SQ SCH (06:26)
[2022-11-06] MEDS: BUDESONIDE 0.5 MG/2 ML NEBU INHALATION SCH (07:53)
[2022-11-06] MEDS: IPRATROPIUM-ALBUTEROL 3 ML NEB INHALATION SCH ×3 (07:54→15:23)
[2022-11-06] MEDS: ESCITALOPRAM 10 MG TAB PO SCH (09:10)
[2022-11-06] MEDS: CLOPIDOGREL 75 MG TAB PO SCH (09:10)
[2022-11-06] MEDS: FAMOTIDINE 20 MG TAB PO SCH (09:10)
[2022-11-06] MEDS: APIXABAN 5 MG TAB PO SCH (09:10)
[2022-11-06] MEDS: TAMSULOSIN 0.4 MG CAP.ER.24H PO SCH (09:10)
[2022-11-06] MEDS: ATORVASTATIN 80 MG TAB PO SCH (09:10)
[2022-11-06] MEDS: MAGNESIUM OXIDE 400 MG TAB PO SCH (09:10)
[2022-11-06] MEDS: CHOLECALCIFEROL 25 MCG (1000 IU) TABLET PO SCH (09:10)
[2022-11-06] MEDS: FUROSEMIDE 40 MG TAB PO SCH ×2 (09:10→15:59)
[2022-11-06] MEDS: NIFEdipine XL 90 MG TAB.ER.24 PO SCH (09:11)
[2022-11-06] MEDS: DAPAGLIFLOZIN PROPANEDIOL 10 MG TABLET PO SCH (09:11)
[2022-11-06] MEDS: SODIUM CHLORIDE 0.9% 1,000 ML IV SCH (09:15)
[2022-11-06] MEDS: DAPTOmycin 500 MG in SODIUM CHLORIDE 0.9% 50 ML IVPB SCH (12:28)
[2022-11-06 12:29] LABS: Glucose,Whole Blood 133 mg/dL (70-110)
[2022-11-06 14:08] VITALS: BP 168/54; PULSE 57; RESP 16; TEMP 98.8
[2022-11-06 14:37] LABS: HCT 25.8 % (39.6-50.0); HGB 7.8 d/dL (13.0-17.0); MCH 26.7 pg (27.0-32.0); MCHC 30.2 d/dL (32.0-37.0); MCV 88.4 FL (80.0-97.0); Mean Platelet Volume 10.4 FL (9.5-12.2); NRBC Per 100 WBC 0 X 10*3/uL (0.00-0.01); Platelet Count 353 X 10*3/uL (140-440); RBC 2.92 X 10*6/uL (4.40-5.60); RDW 17.8 % (11.5-14.5); WBC 7.28 X 10*3/uL (4.50-10.00)
[2022-11-06 17:17] LABS: Glucose,Whole Blood 301 mg/dL (70-110)
[2022-11-07 00:54] LABS: Blood Urea Nitrogen 13.2 mg/dL (9.0-27.0); Calcium 8.6 mg/dL (8.7-10.3); Carbon Dioxide 30.5 mmol/L (21.6-31.8); Chloride 99 mmol/L (96-109); Glucose 86 mg/dL (70-110); Potassium 3.1 mmol/L (3.5-5.5); Sodium 141 mmol/L (135-145)
--- NOTE | 2022-11-07 01:33 | P.DS ---
Providers Date of admission: 11/04/22 02:36 Attending physician: Karen Narayan Primary care physician: Tiffany Sanct[place] Maria Hospital Course: Diagnoses Status post PICC line malfunction, dislodged Recent admission sepsis with urinary tract infection and bacteremia with MRSA Coronary artery disease with PCI to LAD Peripheral arterial disease, status post bilateral AKA Morbid obesity History of below-knee amputation bilateral lower extremity Diabetes mellitus type 2 COPD History of atrial fibrillation Hospital course: 72-year-old gentleman with past medical history significant for chronic hypoxic respiratory failure history of congestive heart failure preserved ejection fraction, who was recently discharged on 11/03/22 admitted for sepsis secondary to urinary tract infection. Patient was noted to have left upper extremity cellulitis. During the hospital stay patient was seen by infectious disease and had a PICC line placed and was discharged on IV daptomycin to complete 10 day course for MRSA bacteremia and other infections. Patient accidentally pulled his PICC line. Bleeding controlled. Patient was admitted to the hospital and midline was placed as 7 days of therapy remains. Patient denies any other new complaints Discussed the case with social services assistant, patient has antibiotic upon discharge already setup since last admission, no further needs. I discussed the case with the daughter upon patient request and discussed the plan of care with her and she is agreeable patient says that last colonoscopy was about 10 years ago, I discussed with the patient and daughter to be referred out patient to GI service Dr. Morgan or surgeon Dr. Casiano for evaluation possible colonoscopy. Patient denies any other new complaints. Problems and management plan were discussed with the patient and he verbalized understanding and acceptance Patient was found stable and can be discharged home in guarded prognosis however he needs follow-up as an outpatient. Patient was instructed to follow up with PCP within one week and patient agrees Physical exam Gen: patient is a AAOx3, no distress CVS: S1-S2, RRR, no murmur Lungs: B/L CTA, no wheezing Abdomen: soft, no distention, no tenderness, positive bowel sounds -Extremity: no leg edema or induration. Bilateral AKA. Midline in a Place Time spent more than 35 minutes Assessment: Assessment and plan * Status post PICC line malfunction, dislodged * Recent sepsis with urinary tract infection and bacteremia * MRSA bacteremia * Morbid obesity * History of BK bilateral lower extremity * Diabetes mellitus type 2 * COPD * Hx of atrial fibrillation * Home medications reviewed and reconciled * Potassium replaced * Cardiology consulted for PICC line placement * Case management consulted to coordinate discharge, to continue with daptomycin outpatient and complete 10 day course as previously scheduled * Plan to discharge home after PICC line placement Patient Condition at Discharge: Fair Plan - Discharge Summary Discharge Rx Participant: Yes New Discharge Prescriptions: Continue traZODone HCL 50 mg PO HS Escitalopram Oxalate [Lexapro] 10 mg PO DAILY Multivitamins, Thera [Multivitamin (formulary)] 1 tab PO DAILY Magnesium Oxide [Mag-Ox] 400 mg PO DAILY INSULIN LISPRO (HumaLOG) [humaLOG] 1 - 11 units SQ ACHS Insulin Glargine [Lantus Vial] 20 unit SQ BID-W/MEALS Cholecalciferol [Vitamin D3 (25 Mcg = 1000 Iu)] 25 mcg PO DAILY Budesonide [Pulmicort] 0.5 mg INHALATION RT-BID Atorvastatin [Lipitor] 80 mg PO DAILY Apixaban [Eliquis] 5 mg PO BID tab NIFEdipine XL [Procardia XL] 90 mg PO DAILY #30 tab Dapagliflozin Propanediol [Farxiga] 10 mg PO DAILY #30 tab DAPTOmycin [Cubicin] 500 mg IVPB Q24H 10 Days #10 each Nystatin 100,000 Unit/gm Powd [Mycostatin Powder] 1 applic TOPICAL BID 30 Days #1 each Acetaminophen Tab [Tylenol] 650 mg PO Q6HR PRN tab PRN Reason: Fever and/ or Mild Pain Tamsulosin [Flomax] 0.4 mg PO DAILY Sennosides [Senokot] 8.6 mg PO BID PRN PRN Reason: Constipation Ipratropium-Albuterol Nebulize [Duoneb 0.5 mg-3 mg/3 ml Soln] 3 ml INHALATION RT-Q6H Famotidine [Pepcid] 20 mg PO DAILY Acetaminophen [Tylenol Arthritis] 650 mg PO Q6H PRN PRN Reason: Fever And/ Or Pain Nitroglycerin Sl Tabs [Nitrostat] 0.4 mg SUBLINGUAL Q5M PRN #30 tab PRN Reason: Chest Pain Clopidogrel [Plavix] 75 mg PO DAILY #30 tab HYDROcodone/APAP 5-325MG [[place] 5-325] 1 tab PO Q6HR PRN 3 Days #12 tab PRN Reason: Pain Ipratropium-Albuterol Nebulize [Duoneb 0.5 mg-3 mg/3 ml Soln] 3 ml INHALATION RT-Q2H PRN each PRN Reason: Shortness Of Breath Or Wheezing Furosemide [Lasix] 40 mg PO BID@0900,1600 #60 tab Discharge Medication List Escitalopram Oxalate [Lexapro] 10 mg PO DAILY 11/09/17 [History] traZODone HCL 50 mg PO HS 11/09/17 [History] Acetaminophen [Tylenol Arthritis] 650 mg PO Q6H PRN 09/29/22 [History] Atorvastatin [Lipitor] 80 mg PO DAILY 09/29/22 [History] Budesonide [Pulmicort] 0.5 mg INHALATION RT-BID 09/29/22 [History] Cholecalciferol [Vitamin D3 (25 Mcg = 1000 Iu)] 25 mcg PO DAILY 09/29/22 [History] Famotidine [Pepcid] 20 mg PO DAILY 09/29/22 [History] INSULIN LISPRO (HumaLOG) [humaLOG] 1 - 11 units SQ ACHS 09/29/22 [History] Insulin Glargine [Lantus Vial] 20 unit SQ BID-W/MEALS 09/29/22 [History] Ipratropium-Albuterol Nebulize [Duoneb 0.5 mg-3 mg/3 ml Soln] 3 ml INHALATION RT-Q6H 09/29/22 [History] Magnesium Oxide [Mag-Ox] 400 mg PO DAILY 09/29/22 [History] Multivitamins, Thera [Multivitamin (formulary)] 1 tab PO DAILY 09/29/22 [History] Sennosides [Senokot] 8.6 mg PO BID PRN 09/29/22 [History] Tamsulosin [Flomax] 0.4 mg PO DAILY 09/29/22 [History] Apixaban [Eliquis] 5 mg PO BID tab 10/01/22 [Rx] Clopidogrel [Plavix] 75 mg PO DAILY #30 tab 10/01/22 [Rx] HYDROcodone/APAP 5-325MG [[place] 5-325] 1 tab PO Q6HR PRN 3 Days #12 tab 10/01/22 [Rx] NIFEdipine XL [Procardia XL] 90 mg PO DAILY #30 tab 10/01/22 [Rx] Nitroglycerin Sl Tabs [Nitrostat] 0.4 mg SUBLINGUAL Q5M PRN #30 tab 10/01/22 [Rx] Dapagliflozin Propanediol [Farxiga] 10 mg PO DAILY #30 tab 10/20/22 [Rx] Acetaminophen Tab [Tylenol] 650 mg PO Q6HR PRN tab 11/03/22 [Rx] DAPTOmycin [Cubicin] 500 mg IVPB Q24H 10 Days #10 each 11/03/22 [Rx] Furosemide [Lasix] 40 mg PO BID@0900,1600 #60 tab 11/03/22 [Rx] Ipratropium-Albuterol Nebulize [Duoneb 0.5 mg-3 mg/3 ml Soln] 3 ml INHALATION RT-Q2H PRN each 11/03/22 [Rx] Nystatin 100,000 Unit/gm Powd [Mycostatin Powder] 1 applic TOPICAL BID 30 Days #1 each 11/03/22 [Rx] Follow up Appointment(s)/Referral(s): Geovani Casiano MD [Medical Doctor] - 1 Week Janet Morgan MD [STAFF PHYSICIAN] - 1 Week (gi doctor ) [facility], [REFERRING] - 1 Week Tiffany Graham [Primary Care Provider] - 1-2 days [facility] [NON-STAFF] - 1 Week [facility], [NON-STAFF] - 1 Week Activity/Diet/Wound Care/Special Instructions: heart healthy diet activity is restricted till you see your doctor
== END 2022-11-06 18:18 | disposition home or self-care (01) ==
LOC: EC 01:52 → 6NMEDSUR 02:36 → INTOOBSV 11-06 11:35 → OBSVTOIN 11-06 11:35 → UNDODISIN 11-06 18:18
PROVIDERS: ADMIT Hospitalist; ATTEND Hospitalist
DX: T82.524A Displacement of infusion catheter, initial encounter (principal); R78.81 Bacteremia; Z80.8 Family history of malignant neoplasm of other organs or systems; Z89.519 Acquired absence of unspecified leg below knee; N39.0 Urinary tract infection, site not specified; I10 Essential (primary) hypertension; E87.6 Hypokalemia; B95.62 Methicillin resistant Staphylococcus aureus infection as the cause of diseases classified elsewhere; I25.10 Atherosclerotic heart disease of native coronary artery without angina pectoris; E66.01 Morbid (severe) obesity due to excess calories; E11.51 Type 2 diabetes mellitus with diabetic peripheral angiopathy without gangrene; J44.9 Chronic obstructive pulmonary disease, unspecified; Z96.653 Presence of artificial knee joint, bilateral; J96.11 Chronic respiratory failure with hypoxia
CPT/HCPCS: 99285; 94640 ×5; 94760 ×2; 36410; 76937; 36573; 80048 ×2; 85027; G0378 ×4; C1751 ×2; C1769; J2001; J0878 ×3

== ENCOUNTER 2023-05-24 21:25 | Inpatient (IN) | payer MEDICARE ==
--- NOTE | 2023-05-24 21:48 | ED ---
General Adult HPI - General Chief complaint: Nausea/Vomiting/Diarrhea Stated complaint: SOB Time Seen by Provider: 05/24/23 21:34 Source: patient, EMS, RN notes reviewed, old records reviewed Mode of arrival: EMS Limitations: no limitations - History of Present Illness Initial comments: 72-year-old male presenting for evaluation of dyspnea, and several episodes of diarrhea. Paramedics were called secondary to diarrhea after the patient had taken stool softeners today. He states that he did have a momentary episode of dyspnea and does currently wear 5 L of home oxygen. He states that he feels fine now. He has no chest pain no abdominal pain. No fever. No cough. - Related Data Home Medications Medication Instructions Recorded Confirmed Escitalopram Oxalate [Lexapro] 10 mg PO DAILY 11/09/17 12/06/22 traZODone HCL 50 mg PO HS 11/09/17 12/06/22 Acetaminophen [Tylenol Arthritis] 650 mg PO Q6H PRN 09/29/22 12/06/22 Atorvastatin [Lipitor] 80 mg PO DAILY 09/29/22 12/06/22 Budesonide [Pulmicort] 0.5 mg INHALATION RT-BID 09/29/22 12/06/22 Cholecalciferol [Vitamin D3 (25 25 mcg PO DAILY 09/29/22 12/06/22 Mcg = 1000 Iu)] Famotidine [Pepcid] 20 mg PO DAILY 09/29/22 12/06/22 INSULIN LISPRO (HumaLOG) [humaLOG] 1 - 11 units SQ ACHS 09/29/22 12/06/22 Insulin Glargine [Lantus Vial] 20 unit SQ BID-W/MEALS 09/29/22 12/06/22 Magnesium Oxide [Mag-Ox] 400 mg PO DAILY 09/29/22 12/06/22 Multivitamins, Thera [Multivitamin 1 tab PO DAILY 09/29/22 12/06/22 (formulary)] Sennosides [Senokot] 8.6 mg PO BID PRN 09/29/22 12/06/22 Tamsulosin [Flomax] 0.4 mg PO DAILY 09/29/22 12/06/22 Previous Rx's Medication Instructions Recorded Clopidogrel [Plavix] 75 mg PO DAILY #30 tab 10/01/22 HYDROcodone/APAP 5-325MG [[place] 1 tab PO Q6HR PRN 3 Days #12 tab 10/01/22 5-325] NIFEdipine XL [Procardia XL] 90 mg PO DAILY #30 tab 10/01/22 Nitroglycerin Sl Tabs [Nitrostat] 0.4 mg SUBLINGUAL Q5M PRN #30 tab 10/01/22 Dapagliflozin Propanediol [Farxiga] 10 mg PO DAILY #30 tab 10/20/22 Ipratropium-Albuterol Nebulize 3 ml INHALATION RT-Q2H PRN each 11/03/22 [Duoneb 0.5 mg-3 mg/3 ml Soln] Apixaban [Eliquis] 5 mg PO BID 30 Days #30 tab 12/10/22 Furosemide [Lasix] 40 mg PO 1600 30 Days #30 tab 12/10/22 Furosemide [Lasix] 80 mg PO DAILY 30 Days #30 tab 12/10/22 Ipratropium-Albuterol Nebulize 3 ml INHALATION RT-Q6H #1 each 12/10/22 [Duoneb 0.5 mg-3 mg/3 ml Soln] Allergies Allergy/AdvReac Type Severity Reaction Status Date / Time No Known Allergies Allergy Verified 12/06/22 15:00 Review of Systems ROS Statement: Those systems with pertinent positive or pertinent negative responses have been documented in the HPI. ROS Other: All systems not noted in ROS Statement are negative. 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 Date of last positivie culture/infection: 10/28/22 MDRO Source:: Blood Past Surgical History: Heart Catheterization Additional Past Surgical History / Comment(s): bilateral great toes amputated, 2nd toe lt foot partial amputation, multiple debridements of venous ulcers, colonoscopy, surgery as a child for undescended testicle., ABOVE THE KNEE AMPUTATION RIGHT LEG (JUNE 2017-[facility]) Past Anesthesia/Blood Transfusion Reactions: No Reported Reaction Date of Last Stent Placement:: 10/17/2022 Past Psychological History: Anxiety, Depression Smoking Status: Former smoker - Past Family History Father Family Medical History: Cancer Additional Family Medical History / Comment(s): Father from brain cancer Mother Family Medical History: Eye Disorder Additional Family Medical History / Comment(s): Glaucoma. Mother is . General Exam Limitations: no limitations General appearance: alert, in no apparent distress Head exam: Present: atraumatic, normocephalic Eye exam: Present: normal appearance, PERRL ENT exam: Present: mucous membranes dry Neck exam: Present: normal inspection. Absent: tenderness, meningismus Respiratory exam: Present: decreased breath sounds (Minimal air entry on the right). Absent: respiratory distress, wheezes Cardiovascular Exam: Present: regular rate, normal rhythm GI/Abdominal exam: Present: soft. Absent: distended, tenderness, guarding Extremities exam: Present: other (Bilateral [id number] amputation) Course Vital Signs 05/24/23 05/24/23 05/24/23 21:32 22:00 23:00 Temperature 98.5 F Pulse Rate 79 77 78 Respiratory 16 22 22 Rate Blood Pressure 167/65 167/65 183/94 O2 Sat by Pulse 97 98 98 Oximetry Medical Decision Making - Medical Decision Making Was pt. sent in by a medical professional or institution (, PA, SOAKERS SUPERVISOR, urgent care, hospital, or intermediate...) When possible be specific @ -No Did you speak to anyone other than the patient for history (EMS, parent, family, police, friend...)? What history was obtained from this source @ -No Did you review nursing and triage notes (agree or disagree)? Why? @ -I reviewed and agree with nursing and triage notes Were old charts reviewed (outside hosp., previous admission, EMS record, old EKG, old radiological studies, urgent care reports/EKG's, intermediate records)? Report findings @ -No old charts were reviewed Differential Diagnosis (chest pain, altered mental status, abdominal pain women, abdominal pain men, vaginal bleeding, weakness, fever, dyspnea, syncope, headache, dizziness, GI bleed, back pain, seizure, CVA, palpatations, mental health, musculoskeletal)? @ -Differential Dyspnea: Coronary syndrome, arrhythmia, tamponade, asthma, COPD, pulmonary embolism, pneumonia, pneumothorax, pulmonary effusion, anaphylaxis, diabetic ketoacidosis, flailed chest, pulmonary contusion, diaphragmatic rupture, anemia, neuromuscular, this is not meant to be an all-inclusive list. EKG interpreted by me (3pts min.). @EKG: Regular rhythm, suspect sinus mechanism, baseline artifact limiting assessment, rate of 79, PA interval 140, QRS duration 124, QTc 442 similar QRS morphology compared to prior EKG. X-rays interpreted by me (1pt min.). @ -Chest x-ray showing large right pleural effusion CT interpreted by me (1pt min.). @ -None done U/S interpreted by me (1pt. min.). @ -None done What testing was considered but not performed or refused? (CT, X-rays, U/S, labs)? Why? @ -None What meds were considered but not given or refused? Why? @ -None Did you discuss the management of the patient with other professionals (professionals i.e. , PA, SOAKERS SUPERVISOR, lab, RT, psych nurse, dialysis social worker, ethanol operations manager, teacher, contract officer, block and case maker)? Give summary @ -EMH Was smoking cessation discussed for >3mins.? @ -No Was critical care preformed (if so, how long)? @ -No Were there social determinants of health that impacted care today? How? (Homeles sness, low income, unemployed, alcoholism, drug addiction, transportation, low edu. Level, literacy, decrease access to med. care, [place] [facility], rehab)? @ -No Was there de-escalation of care discussed even if they declined (Discuss DNR or withdrawal of care, Hospice)? DNR status @ -No What co-morbidities impacted this encounter? (DM, HTN, Smoking, COPD, CAD, Cancer, CVA, ARF, Chemo, Hep., AIDS, mental health diagnosis, sleep apnea, morbid obesity)? @ -[CHF, COPD Was patient admitted / discharged? Hospital course, mention meds given and route, prescriptions, significant lab abnormalities, going to OR and other pertinent info. @ -72-year-old male with dyspnea, several episodes of diarrhea. There is no abdominal tenderness on exam. The diarrhea likely secondary to stool softeners that the patient took. He does appear dyspneic on exam, tachypneic and decreased air entry bilaterally, worse on the right. Chest x-ray shows a large pleural effusion. This is significantly worsened from previous x-ray in November 2022. Patient has white blood cell count 12.5, stable chronic anemia 9.9. He has a minimal troponin elevation at 0.57 and of elevated BNP at 5700. He will be admitted with both cardiology and pulmonology on consult. Undiagnosed new problem with uncertain prognosis? @ -No Drug Therapy requiring intensive monitoring for toxicity (Heparin, Nitro, Insulin, Cardizem)? @ -No Were any procedures done? @ -No Diagnosis/symptom? @Dyspnea, pleural effusion, CHF Acute, or Chronic, or Acute on Chronic? @ -Acute Uncomplicated (without systemic symptoms) or Complicated (systemic symptoms)? @ -Default Side effects of treatment? @ -No Exacerbation, Progression, or Severe Exacerbation? @ -No Poses a threat to life or bodily function? How? (Chest pain, [place], [place], pneumonia, PE, COPD, DKA, ARF, appy, cholecystitis, CVA, Diverticulitis, Homicidal, Suicidal, threat to staff... and all critical care pts) @Yes, CHF - Lab Data Result diagrams: 05/24/23 21:49 05/24/23 22:01 Lab Results 05/24/23 05/24/23 05/24/23 Range/Units 21:49 21:49 22:01 WBC 12.5 H (3.8-10.6) k/uL RBC 3.43 L (4.30-5.90) m/uL Hgb 9.9 L (13.0-17.5) gm/dL Hct 29.2 L (39.0-53.0) % MCV 85.2 (80.0-100.0) fL MCH 28.8 (25.0-35.0) pg MCHC 33.8 (31.0-37.0) g/dL RDW 15.3 (11.5-15.5) % Plt Count 307 (150-450) k/uL MPV 8.1 Neutrophils % 83 % Lymphocytes % 9 % Monocytes % 5 % Eosinophils % 1 % Basophils % 0 % Neutrophils # 10.3 H (1.3-7.7) k/uL Lymphocytes # 1.2 (1.0-4.8) k/uL Monocytes # 0.7 (0-1.0) k/uL Eosinophils # 0.1 (0-0.7) k/uL Basophils # 0.0 (0-0.2) k/uL Sodium 137 (137-145) mmol/L Potassium 3.2 L (3.5-5.1) mmol/L Chloride 99 (98-107) mmol/L Carbon Dioxide 34 H (22-30) mmol/L Anion Gap 4 mmol/L BUN 22 H (9-20) mg/dL Creatinine 1.18 (0.66-1.25) mg/dL Est GFR (CKD-EPI)AfAm 72 (>60 ml/min/1.73 sqM) Est GFR (CKD-EPI)NonAf 62 (>60 ml/min/1.73 sqM) Glucose 151 H (74-99) mg/dL Calcium 8.7 (8.4-10.2) mg/dL Magnesium 2.0 (1.6-2.3) mg/dL Total Bilirubin 0.5 (0.2-1.3) mg/dL AST 23 (17-59) U/L ALT 14 (4-49) U/L Alkaline Phosphatase 95 (38-126) U/L Troponin I 0.057 H* (0.000-0.034) ng/mL NT-Pro-B Natriuret Pep 5750 pg/mL Total Protein 6.5 (6.3-8.2) g/dL Albumin 3.4 L (3.5-5.0) g/dL Influenza Type A (PCR) (Not Detectd) Influenza Type B (PCR) (Not Detectd) RSV (PCR) (Not Detectd) SARS-CoV-2 (PCR) (Not Detectd) 05/24/23 Range/Units 22:06 WBC (3.8-10.6) k/uL RBC (4.30-5.90) m/uL Hgb (13.0-17.5) gm/dL Hct (39.0-53.0) % MCV (80.0-100.0) fL MCH (25.0-35.0) pg MCHC (31.0-37.0) g/dL RDW (11.5-15.5) % Plt Count (150-450) k/uL MPV Neutrophils % % Lymphocytes % % Monocytes % % Eosinophils % % Basophils % % Neutrophils # (1.3-7.7) k/uL Lymphocytes # (1.0-4.8) k/uL Monocytes # (0-1.0) k/uL Eosinophils # (0-0.7) k/uL Basophils # (0-0.2) k/uL Sodium (137-145) mmol/L Potassium (3.5-5.1) mmol/L Chloride (98-107) mmol/L Carbon Dioxide (22-30) mmol/L Anion Gap mmol/L BUN (9-20) mg/dL Creatinine (0.66-1.25) mg/dL Est GFR (CKD-EPI)AfAm (>60 ml/min/1.73 sqM) Est GFR (CKD-EPI)NonAf (>60 ml/min/1.73 sqM) Glucose (74-99) mg/dL Calcium (8.4-10.2) mg/dL Magnesium (1.6-2.3) mg/dL Total Bilirubin (0.2-1.3) mg/dL AST (17-59) U/L ALT (4-49) U/L Alkaline Phosphatase (38-126) U/L Troponin I (0.000-0.034) ng/mL NT-Pro-B Natriuret Pep pg/mL Total Protein (6.3-8.2) g/dL Albumin (3.5-5.0) g/dL Influenza Type A (PCR) Not Detected (Not Detectd) Influenza Type B (PCR) Not Detected (Not Detectd) RSV (PCR) Not Detected (Not Detectd) SARS-CoV-2 (PCR) Not Detected (Not Detectd) Disposition Clinical Impression: CHF (congestive heart failure), Anemia, Pleural effusion Disposition: ADMITTED IP TO THIS HOSP Condition: Stable Is patient prescribed a controlled substance at d/c from ED?: No Referrals: Tiffany Graham [Primary Care Provider] - 1-2 days Time of Disposition: 23:33
[2023-05-24 22:15] LABS: Basophils % (A) 0 %; Eosinophils # (A) 0.1 k/uL (0-0.7); Eosinophils % (A) 1 %; HCT 29.2 % (39.0-53.0); HGB 9.9 gm/dL (13.0-17.5); Lymphocytes # (A) 1.2 k/uL (1.0-4.8); Lymphocytes % (A) 9 %; MCH 28.8 pg (25.0-35.0); MCHC 33.8 g/dL (31.0-37.0); MCV 85.2 fL (80.0-100.0); Mean Platelet Volume 8.1; Monocytes # (A) 0.7 k/uL (0-1.0); Monocytes % (A) 5 %; Neutrophils # (A) 10.3 k/uL (1.3-7.7); Neutrophils % (A) 83 %; Platelet Count 307 k/uL (150-450); RBC 3.43 m/uL (4.30-5.90); RDW 15.3 % (11.5-15.5); WBC 12.5 k/uL (3.8-10.6)
--- NOTE | 2023-05-24 22:37 | XR ---
EXAMINATION TYPE: XR chest 1V portable DATE OF EXAM: 05/24/2023 COMPARISON: Prior chest x-ray December 06, 2022 HISTORY: Shortness of breath TECHNIQUE: Single frontal view of the chest is obtained. FINDINGS: There is now moderate to large sized right-sided pleural effusion silhouetting the right h eart border and hemidiaphragm. Left lung is clear. The cardiac silhouette size is presumed stable and mildly enlarged. The osseous structures are intact. IMPRESSION: Cardiomegaly with Moderate to large size right pleural effusion with associated right ba silar atelectasis. Progress study advised.
[2023-05-24 23:03] LABS: ALT 14 U/L (4-49); AST 23 U/L (17-59); African American GFR (CKD) 72 (>60 ml/min/1.73 sqM); Albumin 3.4 g/dL (3.5-5.0); Alkaline Phosphatase 95 U/L (38-126); Anion Gap 4 mmol/L; Blood Urea Nitrogen 22 mg/dL (9-20); Calcium 8.7 mg/dL (8.4-10.2); Carbon Dioxide 34 mmol/L (22-30); Chloride 99 mmol/L (98-107); Glucose 151 mg/dL (74-99); Non-African American GFR(CKD) 62 (>60 ml/min/1.73 sqM); Potassium 3.2 mmol/L (3.5-5.1); Sodium 137 mmol/L (137-145); Total Bilirubin 0.5 mg/dL (0.2-1.3); Total Protein 6.5 g/dL (6.3-8.2)
[2023-05-24 23:11] LABS: NT-Pro-B-Type Natriuretic Pept 5750 pg/mL
[2023-05-24] MEDS ORDERED: NALOXONE 0.4 MG/ML 1 ML VIAL IV PRN (23:34)
[2023-05-24 23:44] LABS: Partial Thromboplastin Time 26.6 sec (22.0-30.0); Prothrombin Time 10.8 sec (10.0-12.5)
[2023-05-24] MEDS: ASPIRIN 325 MG TAB PO STA (23:53)
[2023-05-24] MEDS: FUROSEMIDE 10 MG/ML 4 ML VIAL IV STA (23:54)
[2023-05-25] MEDS ORDERED: IPRATROPIUM-ALBUTEROL 3 ML NEB INHALATION PRN (02:29)
--- NOTE | 2023-05-25 02:47 | P.CNPUL ---
History of Present Illness Consult date: 05/25/23 Requesting physician: Theo Garrett Reason for consult: dyspnea, pleural effusion Chief complaint: Shortness of breath History of present illness: I am seeing this patient in new consultation today 05/25/2023 in the emergency room after he presented with worsening acute on chronic shortness of breath over the last 24 hours. He was noted to have a moderate to large size right-sided pleural effusion on his admission chest x-ray, and for this reason we were consulted. Patient is a 72-year-old white male with past medical history significant for Diabetes mellitus, hypertension, hyperlipidemia, bilateral cqmif-hyt-wvbd amputation, former tobacco smoker, COPD, atrial fibrillation (ant icoagulated on Eliquis), and coronary artery disease with previous PCI/stents. Patient had a admission for congestive heart failure November,. He was noted to have bilateral pleural effusions at that time, he was diuresed, and discharged home. Patient returned to the emergency room late last night complaining of progressively worsening acute on chronic shortness of breath over the last 24 hours. He is chronically oxygen dependent on 5 L/min nasal cannula at home. He is currently sitting up in bed, on 5 L/min nasal cannula, and he is dyspneic at rest. He speaks in phrases. SpO2 97%. Chest x-ray on arrival shows cardiomegaly with a moderate to large size right pleural effusion with associated right basilar atelectasis and possible left trace pleural effusion. He denies ever having a thoracentesis in the past. He does take Lasix twice a day at home. He states that he has not been peeing as much as normal. No other urinary complaints. Denies any chest pain. He does endorse orthopnea. NT proBNP on arrival was 5750. Most recent available echocardiogram, was done 10/26/22, showing a preserved left ventricular ejection fraction estimated at 55 to 60%. There was also mild mitral regurgitation and mild aortic regurgitation. He denies any change in his chronic cough. Occasional clear sputum production. Denies any fevers. Negative for influenza, RSV, COVID. The patient was also concerned about constipation for the last 3 days, which resolved yesterday after his daughter gave him a combination of stool softeners and other medications. He does report some associated nausea, denies any emesis. Denies any diarrhea since yesterday. Denies any abdominal pain. CBC on arrival: WBC count 12.5, hemoglobin 9.9, hematocrit 29.2, platelets 307. Coagulation profile WDL. BMP on arrival: Sodium 137, potassium 3.2, chloride 99, serum bicarb 34, BUN 22, creatinine 1.18, glucose 151. LFTs not elevated. Initial Troponin was elevated at 0.057. EKG done on arrival shows an accelerated junctional rhythm with similar QRS morphology to baseline. No obvious acute ischemic changes. Currently afebrile. Vital signs are stable. Review of Systems REVIEW OF SYSTEMS: CONSTITUTIONAL: Denies any recent significant weight loss or weight gain. EYES: Denies change in vision. EARS, NOSE, MOUTH, THROAT: Denies headaches, denies sore throat. Admits clear rhinorrhea. CARDIOVASCULAR: Denies chest pain, palpitations or syncopal episodes. RESPIRATORY: See HPI. GASTROINTESTINAL: Denies change in appetite, abdominal pain, vomiting. Does admit 3 days of constipation followed by resolution with sfbi-qlm-[id number] stool softeners. Denies any bright red blood or melena. GENITOURINARY: Denies hematuria, denies infections. MUSKULOSKELETAL: Denies pain, denies swelling. INTEGUMENTARY: Denies rash, denies eczema. NEUROLOGICAL: Denies recent memory loss, no recent seizure activity. PSYCHIATRIC: Denies anxiety, denies depression. 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 Date of last positivie culture/infection: 10/28/22 MDRO Source:: Blood Past Surgical History: Heart Catheterization Additional Past Surgical History / Comment(s): bilateral great toes amputated, 2nd toe lt foot partial amputation, multiple debridements of venous ulcers, colonoscopy, surgery as a child for undescended testicle., ABOVE THE KNEE AMPUTATION RIGHT LEG (JUNE 2017-[facility]) Past Anesthesia/Blood Transfusion Reactions: No Reported Reaction Date of Last Stent Placement:: 10/17/2022 Past Psychological History: Anxiety, Depression Smoking Status: Former smoker - Past Family History Father Family Medical History: Cancer Additional Family Medical History / Comment(s): Father from brain cancer Mother Family Medical History: Eye Disorder Additional Family Medical History / Comment(s): Glaucoma. Mother is . Medications and Allergies Home Medications Medication Instructions Recorded Confirmed Type Escitalopram Oxalate [Lexapro] 10 mg PO DAILY 11/09/17 12/06/22 History traZODone HCL 50 mg PO HS 11/09/17 12/06/22 History Acetaminophen [Tylenol Arthritis] 650 mg PO Q6H PRN 09/29/22 12/06/22 History Atorvastatin [Lipitor] 80 mg PO DAILY 09/29/22 12/06/22 History Budesonide [Pulmicort] 0.5 mg INHALATION RT-BID 09/29/22 12/06/22 History Cholecalciferol [Vitamin D3 (25 25 mcg PO DAILY 09/29/22 12/06/22 History Mcg = 1000 Iu)] Famotidine [Pepcid] 20 mg PO DAILY 09/29/22 12/06/22 History INSULIN LISPRO (HumaLOG) [humaLOG] 1 - 11 units SQ ACHS 09/29/22 12/06/22 Histor y Insulin Glargine [Lantus Vial] 20 unit SQ BID-W/MEALS 09/29/22 12/06/22 History Magnesium Oxide [Mag-Ox] 400 mg PO DAILY 09/29/22 12/06/22 History Multivitamins, Thera [Multivitamin 1 tab PO DAILY 09/29/22 12/06/22 History (formulary)] Sennosides [Senokot] 8.6 mg PO BID PRN 09/29/22 12/06/22 History Tamsulosin [Flomax] 0.4 mg PO DAILY 09/29/22 12/06/22 History Clopidogrel [Plavix] 75 mg PO DAILY #30 tab 10/01/22 12/06/22 Rx HYDROcodone/APAP 5-325MG [[place] 1 tab PO Q6HR PRN 3 Days #12 tab 10/01/22 12/06/22 Rx 5-325] NIFEdipine XL [Procardia XL] 90 mg PO DAILY #30 tab 10/01/22 12/06/22 Rx Nitroglycerin Sl Tabs [Nitrostat] 0.4 mg SUBLINGUAL Q5M PRN #30 tab 10/01/22 12/06/22 Rx Dapagliflozin Propanediol [Farxiga] 10 mg PO DAILY #30 tab 10/20/22 12/06/22 Rx Ipratropium-Albuterol Nebulize 3 ml INHALATION RT-Q2H PRN each 11/03/22 12/06/22 Rx [Duoneb 0.5 mg-3 mg/3 ml Soln] Apixaban [Eliquis] 5 mg PO BID 30 Days #30 tab 12/10/22 Rx Furosemide [Lasix] 40 mg PO 1600 30 Days #30 tab 12/10/22 Rx Furosemide [Lasix] 80 mg PO DAILY 30 Days #30 tab 12/10/22 Rx Ipratropium-Albuterol Nebulize 3 ml INHALATION RT-Q6H #1 each 12/10/22 Rx [Duoneb 0.5 mg-3 mg/3 ml Soln] Allergies Allergy/AdvReac Type Severity Reaction Status Date / Time No Known Allergies Allergy Verified 12/06/22 15:00 Physical Exam Vitals: Vital Signs Temp Pulse Resp BP Pulse Ox 05/25/23 00:00 78 16 132/101 97 05/24/23 23:00 78 22 183/94 98 05/24/23 22:00 77 22 167/65 98 05/24/23 21:32 98.5 F 79 16 167/65 97 Intake and Output 05/24/23 05/24/23 05/25/23 14:59 22:59 06:59 Other: Weight 90.718 kg GENERAL EXAM: Alert, 72-year-old white male, sitting up in bed, speaks in phrases, mildly dyspneic. HEAD: Normocephalic and atraumatic EYES: Normal reaction of pupils, equal size. NOSE: Clear with pink turbinates. THROAT: No erythema or exudates. NECK: No masses, no JVD. CHEST: No chest wall deformity. LUNGS: Equal air entry with mostly clear lung sounds throughout and right basilar dullness. On 5 L/min nasal cannula. SpO2 97%. CVS: S1 and S2 normal with no audible murmur, regular rhythm. No extra heart sounds ABDOMEN: No hepatosplenomegaly, active bowel sounds, no guarding or rigidity. SPINE: No scoliosis or deformity SKIN: Nonblanchable bilateral buttock erythema CENTRAL NERVOUS SYSTEM: No focal deficits, tone is normal in all 4 extremities. EXTREMITIES: Bilateral gakdj-yho-sbhm amputee, bilateral femoral and peripheral upper extremity pulses are intact. Results - Laboratory Findings CBC and BMP: 05/24/23 21:49 05/24/23 22:01 PT/INR, D-dimer PT 10.8 sec (10.0-12.5) 05/24/23 23:03 INR 1.0 (<1.2) 05/24/23 23:03 Abnormal lab findings: Abnormal Labs 05/24/23 05/24/23 05/24/23 21:49 21:49 22:01 WBC 12.5 H RBC 3.43 L Hgb 9.9 L Hct 29.2 L Neutrophils # 10.3 H Potassium 3.2 L Carbon Dioxide 34 H BUN 22 H Glucose 151 H Troponin I 0.057 H* Albumin 3.4 L - Diagnostic Findings Chest x-ray: image reviewed Assessment and Plan Assessment: Acute on chronic hypoxemic respiratory failure, secondary to suspected acute exacerbation of diastolic congestive heart failure. Chest x-ray on admission shows cardiomegaly with a moderate to large size right pleural effusion and associated right basilar atelectasis, Right sided pleural effusion is chronic, but larger than on previous imaging. There is also a possible left trace pleural effusion. NT proBNP elevated at 5750 Elevated troponins, rule out non-ST elevation [place] Coronary artery disease, with history of previous PCI/stents to the RCA and LAD, most recent intervention done 10/17/22 Peripheral vascular disease, with history of bilateral glloq-zbo-eypl amputations Former tobacco dependence Chronic obstructive pulmonary disease, stable Chronic hypoxemic respiratory failure, normally maintained on 5 L/min nasal cannula History of atrial fibrillation, anticoagulated on Eliquis Anemia of chronic disease, hemoglobin stable Diabetes mellitus type 2, insulin-dependent Hypertension Hyperlipidemia Morbid obesity, with a BMI of 52 kg/m Plan: Patient's medications, labs, chest x-ray reviewed Continue supplemental oxygen, and wean FiO2 as tolerated Patient does have chronic pleural effusions, however, right-sided pleural effusion appears to be larger than previous imaging. Ultrasound of the chest pending.. Eliquis will need to be placed on hold if thoracentesis is planned. I will discuss this with Dr. Bo later this morning. In the meantime, continue diuretics. Continue COPD maintenance nebulizers including budesonide and also DuoNebs [id number]. Negative for influenza, RSV, COVID We will continue to follow, and further recommendations are forthcoming. I have personally seen and examined the patient, performed the documentation and the assessment and plan as written. Number of minutes spent on the visit:20 Time with Patient: Greater than 30
[2023-05-25] MEDS: ACETAMINOPHEN TAB 325 MG TAB PO PRN (05:07)
[2023-05-25 06:52] LABS: Glucose,Whole Blood 162 mg/dL (70-110)
[2023-05-25] MEDS: BUDESONIDE 0.5 MG/2 ML NEBU INHALATION SCH (07:30)
[2023-05-25] MEDS: IPRATROPIUM-ALBUTEROL 3 ML NEB INHALATION SCH (07:30)
--- NOTE | 2023-05-25 09:00 | US ---
EXAMINATION TYPE: US chest DATE OF EXAM: 05/25/2023 COMPARISON: NONE CLINICAL INDICATION: Male, 72 years old with history of right sided pleural effusion; TECHNIQUE: Targeted ultrasound of the posterior lower right posterior back EXAM MEASUREMENTS: Right Pleural Effusion pocket size: 13.7 cm Right skin surface to fluid distance: 3.5 cm Right side marked for possible thoracentesis outside the dept. Pulmonologists are able to review the images in the patient?s EMR. IMPRESSIONS: Right side marked for possible thoracentesis.
[2023-05-25 09:04] LABS: African American GFR (CKD) 61 (>60 ml/min/1.73 sqM); Anion Gap 11 mmol/L; Blood Urea Nitrogen 21 mg/dL (9-20); Calcium 9.1 mg/dL (8.4-10.2); Carbon Dioxide 28 mmol/L (22-30); Chloride 97 mmol/L (98-107); Glucose 125 mg/dL (74-99); Non-African American GFR(CKD) 52 (>60 ml/min/1.73 sqM); Potassium 3.3 mmol/L (3.5-5.1); Sodium 136 mmol/L (137-145)
[2023-05-25] MEDS: FUROSEMIDE 10 MG/ML 4 ML VIAL IV SCH (09:11)
[2023-05-25] MEDS: POTASSIUM CHLORIDE ER 20 MEQ TAB.ER PO SCH (09:12)
[2023-05-25] MEDS ORDERED: DEXTROSE 50% SYRINGE 50 ML IVP PRN ×2 (09:48)
[2023-05-25] MEDS: HALOPERIDOL LACTATE 5 MG/ML 1 ML VIAL IM PRN (11:25)
[2023-05-25] MEDS: lisinopriL 5 MG TAB PO SCH ×2 (11:30→20:51)
--- NOTE | 2023-05-25 11:43 | P.CRDCN ---
History of Present Illness Consult date: 05/25/23 Consult reason: congestive heart failure History of present illness: History of present illness: This is a 72-year-old male patient of Dr. Starks (has not followed up in the office since 2014) with past medical history of coronary artery disease with previous stents to the RCA and LAD, hypertension, dyslipidemia, diabetes, paroxysmal atrial fibrillation, chronic diastolic heart failure, severe peripheral vascular disease with bilateral zyrfn-lbs-pxff amputations, COPD, chronic hypoxic respiratory failure on home O2, chronic kidney disease, remote history of tobacco use. We have been asked to evaluate the patient for CHF. Patient does not know why he is here. But he does deny chest pain. No dizziness. No palpitations. No cough or wheezing. He complains of diarrhea apparently occurred following stool softeners.. Patient is seen today in the emergency center waiting for a bed on the cardiac stepdown unit. Patient is status post IV Lasix 40 mg x 1 and maintained on IV Lasix 40 mg every [address] with pulmonary medicine with plan for thoracentesis, Eliquis is on hold. EKG junctional rhythm with ventricular rate of 79 bpm, Chest x-ray: Cardiomegaly with moderate to large size right pleural effusion with associated right basilar atelectasis. WBC 12.5, hemoglobin 9.9, platelet count 307. INR 1. Sodium 137, potassium 3.2, chloride 99, CO2 34, BUN 22 creatinine 1.18. Blood sugar 151. Calcium 8.7, magnesium 2. Liver function test are normal. proBNP 5750. Troponin 0.057 and 0.065. Influenza A, influenza B, RSV, COVID-19 not detected. Home cardiac medications: Eliquis 5 mg twice daily, atorvastatin 80 mg daily, Plavix 75 mg daily, Farxiga 10 mg daily, Lasix 80 mg in the morning and 40 mg at 4 PM, magnesium oxide 400 mg daily, Procardia XL 90 mg daily, Nitrostat as needed. Echocardiogram performed 10/26/2022 revealed EF 55 to 60%, severe mitral annular calcification and mild mitral regurgitation, mild aortic regurgitation. Cardiac catheterization 10/17/2022 successful stenting of the mid LAD with JEFFERY. Cardiac catheterization performed at [facility] 09/2022 that revealed critical disease in the involving the heavily calcified right as well as severe disease involving the mid LAD. PCI performed at [facility] 09/30/2022 distal RCA stent, mid RCA stent. Review Of Systems: At the time of my exam: CONSTITUTIONAL: Denies fever or chills. HEENT: Denies blurred vision, vision changes, or eye pain. Denies hemoptysis CARDIOVASCULAR: Denies chest pain. Denies orthopnea. Denies PND. Denies palpitations RESPIRATORY: Denies shortness of breath. GASTROINTESTINAL: Denies abdominal pain. Denies nausea or vomiting. Reports diarrhea. HEMATOLOGIC: Denies bleeding disorders. GENITOURINARY: Denies any blood in urine. SKIN: Denies pruitis. Denies rash. Physical examination: Gen: This is a 72-year-old male, mild confusion no acute respiratory distress VS: reviewed HEENT: Head is atraumatic, normocephalic. Pupils equal, round. Sclerae is anicteric. NECK: Supple. No JVD. LUNGS: Diminished breath sounds. No intercostal retractions. HEART: Regular rate and rhythm. No murmur. ABDOMEN: Soft No tenderness. EXTREMITIES: Bilateral uykvm-kyo-plcb amputations. NEUROLOGICAL: Patient is awake, alert and oriented x3. Assessment: Large right pleural effusion Acute hypoxic respiratory failure secondary to acute diastolic heart failure and large right pleural effusion Elevated troponin, possible non-ST elevated [place] Paroxysmal atrial fibrillation Coronary artery disease with previous stent to the LAD 10/17/2022, RCA stentx2 09/30/2022 Severe peripheral vascular disease status post bilateral khkev-icu-iafk amputations COPD Diabetes Hypertension Hyperlipidemia Remote history of tobacco use Plan: Resume patient's home cardiac medications Obtain 2-D echocardiogram and Doppler study to assess cardiac structure and function Start patient on Farxiga 10 mg daily and lisinopril 5 mg daily Continue patient on IV Lasix 40 mg every 12 hours Monitor MAX, daily weights, electrolytes and renal function Margretis is on hold for thoracentesis Further recommendations to follow based upon clinical course Thank you kindly for this consultation. Nurse practitioner note has been reviewed, I agree with documented findings and plan of care. Patient was seen and examined. 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 Date of last positivie culture/infection: 10/28/22 MDRO Source:: Blood Past Surgical History: Heart Catheterization Additional Past Surgical History / Comment(s): bilateral great toes amputated, 2nd toe lt foot partial amputation, multiple debridements of venous ulcers, colonoscopy, surgery as a child for undescended testicle., ABOVE THE KNEE AMPUTATION RIGHT LEG (JUNE 2017-[facility]) Past Anesthesia/Blood Transfusion Reactions: No Reported Reaction Date of Last Stent Placement:: 10/17/2022 Past Psychological History: Anxiety, Depression Smoking Status: Former smoker - Past Family History Father Family Medical History: Cancer Additional Family Medical History / Comment(s): Father from brain cancer Mother Family Medical History: Eye Disorder Additional Family Medical History / Comment(s): Glaucoma. Mother is . Medications and Allergies Home Medications Medication Instructions Recorded Confirmed Type traZODone HCL 50 mg PO HS 11/09/17 05/25/23 History Acetaminophen [Tylenol Arthritis] 650 mg PO Q6H PRN 09/29/22 05/25/23 History Atorvastatin [Lipitor] 80 mg PO DAILY 09/29/22 05/25/23 History Budesonide [Pulmicort] 0.5 mg INHALATION RT-BID 09/29/22 05/25/23 History Cholecalciferol [Vitamin D3 (25 25 mcg PO DAILY 09/29/22 05/25/23 History Mcg = 1000 Iu)] Famotidine [Pepcid] 20 mg PO BID 09/29/22 05/25/23 History Magnesium Oxide [Mag-Ox] 400 mg PO DAILY 09/29/22 05/25/23 History Multivitamins, Thera [Multivitamin 1 tab PO DAILY 09/29/22 05/25/23 History (formulary)] Sennosides [Senokot] 8.6 mg PO BID PRN 09/29/22 05/25/23 History Tamsulosin [Flomax] 0.4 mg PO DAILY 09/29/22 05/25/23 History Clopidogrel [Plavix] 75 mg PO DAILY #30 tab 10/01/22 05/25/23 Rx HYDROcodone/APAP 5-325MG [[place] 1 tab PO Q6HR PRN 3 Days #12 tab 10/01/22 05/25/23 Rx 5-325] NIFEdipine XL [Procardia XL] 90 mg PO DAILY #30 tab 10/01/22 05/25/23 Rx Dapagliflozin Propanediol [Farxiga] 10 mg PO DAILY #30 tab 10/20/22 05/25/23 Rx Ipratropium-Albuterol Nebulize 3 ml INHALATION RT-Q2H PRN each 11/03/22 05/25/23 Rx [Duoneb 0.5 mg-3 mg/3 ml Soln] Apixaban [Eliquis] 5 mg PO BID 30 Days #30 tab 12/10/22 05/25/23 Rx Furosemide [Lasix] 80 mg PO DAILY 30 Days #30 tab 12/10/22 05/25/23 Rx Escitalopram [Lexapro] 20 mg PO DAILY 05/25/23 05/25/23 History Furosemide [Lasix] 40 mg PO DAILY@1600 05/25/23 05/25/23 History Insulin Glargine,Hum.rec.anlog 20 units SQ BID 05/25/23 05/25/23 History [Lantus Solostar Pen] Insulin Lispro [humaLOG Kwikpen] See Protocol SQ ACHS 05/25/23 05/25/23 History Ipratropium-Albuterol Nebulize 3 ml INHALATION RT-QID 05/25/23 05/25/23 History [Duoneb 0.5 mg-3 mg/3 ml Soln] Nitroglycerin Sl Tabs [Nitrostat] 0.4 mg SL Q5M PRN 05/25/23 05/25/23 History Allergies Allergy/AdvReac Type Severity Reaction Status Date / Time No Known Allergies Allergy Verified 05/25/23 10:26 Physical Exam Vitals: Vital Signs Temp Pulse Pulse Resp BP BP Pulse Ox 05/25/23 07:41 77 05/25/23 07:31 84 96 05/25/23 07:29 99.5 F 79 16 148/105 96 05/25/23 05:14 84 20 157/73 97 05/25/23 04:00 79 16 167/72 98 05/25/23 02:00 78 16 110/65 99 05/25/23 01:00 79 14 140/70 98 05/25/23 00:00 78 16 132/101 97 05/24/23 23:00 78 22 183/94 98 05/24/23 22:00 77 22 167/65 98 05/24/23 21:32 98.5 F 79 16 167/65 97 Intake and Output 05/24/23 05/25/23 05/25/23 22:59 06:59 14:59 Other: Weight 90.718 kg Results 05/24/23 21:49 05/25/23 08:24 Cardiac Enzymes 05/24/23 05/24/23 05/25/23 Range/Units 21:49 22:01 03:24 AST 23 (17-59) U/L Troponin I 0.057 H* 0.065 H* (0.000-0.034) ng/mL Coagulation 05/24/23 Range/Units 23:03 PT 10.8 (10.0-12.5) sec APTT 26.6 (22.0-30.0) sec CBC 05/24/23 Range/Units 21:49 WBC 12.5 H (3.8-10.6) k/uL RBC 3.43 L (4.30-5.90) m/uL Hgb 9.9 L (13.0-17.5) gm/dL Hct 29.2 L (39.0-53.0) % Plt Count 307 (150-450) k/uL Comprehensive Metabolic Panel 05/24/23 Range/Units 22:01 Sodium 137 (137-145) mmol/L Potassium 3.2 L (3.5-5.1) mmol/L Chloride 99 (98-107) mmol/L Carbon Dioxide 34 H (22-30) mmol/L BUN 22 H (9-20) mg/dL Creatinine 1.18 (0.66-1.25) mg/dL Glucose 151 H (74-99) mg/dL Calcium 8.7 (8.4-10.2) mg/dL AST 23 (17-59) U/L ALT 14 (4-49) U/L Alkaline Phosphatase 95 (38-126) U/L Total Protein 6.5 (6.3-8.2) g/dL Albumin 3.4 L (3.5-5.0) g/dL Current Medications Generic Name Dose Route Start Last Admin Trade Name Freq PRN Reason Stop Dose Admin Acetaminophen 650 mg 05/24/23 23:34 05/25/23 05:07 Acetaminophen Tab 325 Mg Tab PO 650 mg Q6HR PRN Administration Mild Pain or Fever > 100.5 Albuterol/Ipratropium 3 ml 05/25/23 08:00 05/25/23 07:30 Ipratropium-Albuterol 3 Ml Neb INHALATION 3 ml RT-QID SINDHU Administration Albuterol/Ipratropium 3 ml 05/25/23 02:29 Ipratropium-Albuterol 3 Ml Neb INHALATION RT-Q4H PRN Shortness Of Breath Or Wheezing Budesonide 0.5 mg 05/25/23 08:00 05/25/23 07:30 Budesonide 0.5 Mg/2 Ml Nebu INHALATION 0.5 mg RT-BID SINDHU Administration Furosemide 40 mg 05/25/23 09:00 Furosemide 10 Mg/Ml 4 Ml Vial IV Q12HR SINDHU Naloxone HCl 0.2 mg 05/24/23 23:34 Naloxone 0.4 Mg/Ml 1 Ml Vial IV Q2M PRN Opioid Reversal Potassium Chloride 40 meq 05/25/23 08:00 Potassium Chloride Er 20 Meq Tab.Er PO 05/25/23 10:01 Q2HR SINDHU Intake and Output 05/24/23 05/25/23 05/25/23 22:59 06:59 14:59 Other: Weight 90.718 kg 05/24/23 21:49 05/24/23 22:01
[2023-05-25 12:27] LABS: Glucose,Whole Blood 423 mg/dL (70-110)
[2023-05-25] MEDS: DAPAGLIFLOZIN PROPANEDIOL 10 MG TABLET PO SCH (12:43)
[2023-05-25] MEDS: INSULIN ASPART (NovoLOG) 100 UNIT/ML VIAL SQ SCH (12:43)
[2023-05-25] MEDS: CLOPIDOGREL 75 MG TAB PO SCH (12:43)
[2023-05-25 14:55] LABS: Glucose,Whole Blood 225 mg/dL (70-110)
[2023-05-25 16:36] LABS: Glucose,Whole Blood 169 mg/dL (70-110)
[2023-05-25] MEDS: HEPARIN SODIUM,PORCINE 5,000 UNIT/ML 1 ML VIAL SQ SCH ×2 (17:15→23:07)
[2023-05-25] MEDS: NITROGLYCERIN OINT 1 INCH/GM PACKET TOPICAL SCH (17:15)
[2023-05-25 20:47] LABS: Glucose,Whole Blood 226 mg/dL (70-110)
[2023-05-25] MEDS ORDERED: SENNOSIDES 8.6 MG TAB PO PRN (21:38)
[2023-05-25] MEDS: traZODone HCL 50 MG TAB PO SCH (22:05)
[2023-05-25] MEDS: POTASSIUM CHLORIDE ER 20 MEQ TAB.ER PO STA (22:05)
[2023-05-25] MEDS: APIXABAN 5 MG TAB PO SCH (22:05)
[2023-05-25] MEDS: HYDROcodone/APAP 5-325MG 1 EACH TAB PO PRN (22:06)
--- NOTE | 2023-05-25 22:23 | P.HPIM ---
History of Present Illness H&P Date: 05/25/23 Chief Complaint: Shortness of breath Patient is a 72-year-old male presents to ER with the complaints of worsening shortness of breath since yesterday and is also complaining of diarrhea which was thought to be due to patient taking stool softeners on daily basis. Patient does have a history of chronic hypoxic respiratory failure on 5 L oxygen via nasal cannula, hypertension, diabetes type 2, osteoarthritis, history of chronic venous stasis wounds and bilateral AKA, atrial fibrillation on anticoagulation with Eliquis, anxiety/depression prior history of smoking. Otherwise patient denied any complaints of fever or chills. Does have congested cough. No sputum production. No complaints of chest pain. No headache or dizziness or lightheadedness. Patient has been agitated at times in the ER and also requiring Haldol dose. On admission chest x-ray showed cardiomegaly with moderate to large size right pleural effusion with associated right basilar atelectasis. EKG showed possible right ventricular hypertrophy, junctional rhythm. Laboratory data showed WBC 12.4 hemoglobin 9.9 and platelets 15.3 Sodium 137 potassium 3.2 chloride 99 bicarb is 34 BUN 2020 creatinine 1.18 and blood sugar 151 Liver enzymes are not elevated. Troponin 0.057, 0.065 and albumin 3.4, proBNP 5750 COVID-19, influenza and RSV PCR not detected. Review of Systems Constitutional: Patient denies any fever or chills . Does have weight gain. Abdomen: Patient denied nausea vomiting and diarrhea and abdominal pain. Cardiovascular: Patient denies any chest pain. Patient does have short of breath no palpitations. Respiratory: patient does have cough without sputum production. Worsening shortness of breath Complete review of systems could not be obtained from the patient. 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 Date of last positivie culture/infection: 10/28/22 MDRO Source:: Blood Past Surgical History: Heart Catheterization Additional Past Surgical History / Comment(s): bilateral great toes amputated, 2nd toe lt foot partial amputation, multiple debridements of venous ulcers, colonoscopy, surgery as a child for undescended testicle., ABOVE THE KNEE AMPUTATION RIGHT LEG (JUNE 2017-[facility]) Past Anesthesia/Blood Transfusion Reactions: No Reported Reaction Date of Last Stent Placement:: 10/17/2022 Past Psychological History: Anxiety, Depression Smoking Status: Former smoker - Past Family History Father Family Medical History: Cancer Additional Family Medical History / Comment(s): Father from brain cancer Mother Family Medical History: Eye Disorder Additional Family Medical History / Comment(s): Glaucoma. Mother is . Medications and Allergies Home Medications Medication Instructions Recorded Confirmed Type traZODone HCL 50 mg PO HS 11/09/17 05/25/23 History Acetaminophen [Tylenol Arthritis] 650 mg PO Q6H PRN 09/29/22 05/25/23 History Atorvastatin [Lipitor] 80 mg PO DAILY 09/29/22 05/25/23 History Budesonide [Pulmicort] 0.5 mg INHALATION RT-BID 09/29/22 05/25/23 History Cholecalciferol [Vitamin D3 (25 25 mcg PO DAILY 09/29/22 05/25/23 History Mcg = 1000 Iu)] Famotidine [Pepcid] 20 mg PO BID 09/29/22 05/25/23 History Magnesium Oxide [Mag-Ox] 400 mg PO DAILY 09/29/22 05/25/23 History Multivitamins, Thera [Multivitamin 1 tab PO DAILY 09/29/22 05/25/23 History (formulary)] Sennosides [Senokot] 8.6 mg PO BID PRN 09/29/22 05/25/23 History Tamsulosin [Flomax] 0.4 mg PO DAILY 09/29/22 05/25/23 History Clopidogrel [Plavix] 75 mg PO DAILY #30 tab 10/01/22 05/25/23 Rx HYDROcodone/APAP 5-325MG [Delta 1 tab PO Q6HR PRN 3 Days #12 tab 10/01/22 05/25/23 Rx 5-325] NIFEdipine XL [Procardia XL] 90 mg PO DAILY #30 tab 10/01/22 05/25/23 Rx Dapagliflozin Propanediol [Farxiga] 10 mg PO DAILY #30 tab 10/20/22 05/25/23 Rx Ipratropium-Albuterol Nebulize 3 ml INHALATION RT-Q2H PRN each 11/03/22 05/25/23 Rx [Duoneb 0.5 mg-3 mg/3 ml Soln] Apixaban [Eliquis] 5 mg PO BID 30 Days #30 tab 12/10/22 05/25/23 Rx Furosemide [Lasix] 80 mg PO DAILY 30 Days #30 tab 12/10/22 05/25/23 Rx Escitalopram [Lexapro] 20 mg PO DAILY 05/25/23 05/25/23 History Furosemide [Lasix] 40 mg PO DAILY@1600 05/25/23 05/25/23 History Insulin Glargine,Hum.rec.anlog 20 units SQ BID 05/25/23 05/25/23 History [Lantus Solostar Pen] Insulin Lispro [humaLOG Kwikpen] See Protocol SQ ACHS 05/25/23 05/25/23 History Ipratropium-Albuterol Nebulize 3 ml INHALATION RT-QID 05/25/23 05/25/23 History [Duoneb 0.5 mg-3 mg/3 ml Soln] Nitroglycerin Sl Tabs [Nitrostat] 0.4 mg SL Q5M PRN 05/25/23 05/25/23 History Allergies Allergy/AdvReac Type Severity Reaction Status Date / Time No Known Allergies Allergy Verified 05/25/23 10:26 Physical Exam Vitals: Vital Signs Temp Pulse Pulse Resp BP BP Pulse Ox 05/25/23 07:41 77 05/25/23 07:31 84 96 05/25/23 07:29 99.5 F 79 16 148/105 96 05/25/23 05:14 84 20 157/73 97 05/25/23 04:00 79 16 167/72 98 05/25/23 02:00 78 16 110/65 99 05/25/23 01:00 79 14 140/70 98 05/25/23 00:00 78 16 132/101 97 05/24/23 23:00 78 22 183/94 98 05/24/23 22:00 77 22 167/65 98 05/24/23 21:32 98.5 F 79 16 167/65 97 Intake and Output 05/24/23 05/25/23 05/25/23 22:59 06:59 14:59 Other: Weight 90.718 kg PHYSICAL EXAMINATION: Patient is sitting on the side of the bed. Agitated and distressed., awake alert and oriented.. HEENT: Normocephalic. Neck is supple. Pupils reactive. Nostrils clear. Oral cavity is moist. Neck reveals no JVD, carotid bruits, or thyromegaly. CHEST EXAMINATION: Trachea is central. Symmetrical expansion. Left basilar crackles send right basilar diminished sounds.. No wheezing. CARDIAC: Normal S1, S2 with no gallops. No murmurs ABDOMEN: Soft. Bowel sounds normal. No organomegaly. No abdominal bruits. Extremities: Bilateral BKA a. No clubbing or cyanosis Neurologically awake, alert, oriented x 2-3 able to move upper extremities.. No gross focal deficits noted Skin: No rash or skin lesions. Psychiatric: Noncooperative, could not be assessed completely. Musculoskeletal: No joint swelling or deformity. Results CBC & Chem 7: 05/24/23 21:49 05/25/23 08:24 Labs: Abnormal Lab Results - Last 24 Hours (Table) 05/24/23 05/24/23 05/24/23 Range/Units 21:49 21:49 22:01 WBC 12.5 H (3.8-10.6) k/uL RBC 3.43 L (4.30-5.90) m/uL Hgb 9.9 L (13.0-17.5) gm/dL Hct 29.2 L (39.0-53.0) % Neutrophils # 10.3 H (1.3-7.7) k/uL Sodium (137-145) mmol/L Potassium 3.2 L (3.5-5.1) mmol/L Chloride (98-107) mmol/L Carbon Dioxide 34 H (22-30) mmol/L BUN 22 H (9-20) mg/dL Creatinine (0.66-1.25) mg/dL Glucose 151 H (74-99) mg/dL POC Glucose (mg/dL) (70-110) mg/dL Troponin I 0.057 H* (0.000-0.034) ng/mL Albumin 3.4 L (3.5-5.0) g/dL 05/25/23 05/25/23 05/25/23 Range/Units 03:24 06:50 08:24 WBC (3.8-10.6) k/uL RBC (4.30-5.90) m/uL Hgb (13.0-17.5) gm/dL Hct (39.0-53.0) % Neutrophils # (1.3-7.7) k/uL Sodium 136 L (137-145) mmol/L Potassium 3.3 L (3.5-5.1) mmol/L Chloride 97 L (98-107) mmol/L Carbon Dioxide (22-30) mmol/L BUN 21 H (9-20) mg/dL Creatinine 1.36 H (0.66-1.25) mg/dL Glucose 125 H (74-99) mg/dL POC Glucose (mg/dL) 162 H (70-110) mg/dL Troponin I 0.065 H* (0.000-0.034) ng/mL Albumin (3.5-5.0) g/dL Thrombosis Risk Factor Assmnt - DVT/VTE Prophylaxis DVT/VTE Prophylaxis: Pharmacologic Prophylaxis ordered Assessment and Plan Assessment: Acute on chronic hypoxemic respiratory failure due to CHF and large right-sided pleural effusion and trace left sided pleural effusion. Acute on chronic CHF with diastolic dysfunction Elevated troponin level possible type II WI Coronary artery history of stent placement to RCA and LAD in 2022 Paroxysmal atrial fibrillation on anticoagulation with Eliquis at home Peripheral vascular disease with history of bilateral BKA COPD not in exacerbation Diabetes type 2 insulin-dependent Peripheral neuropathy diabetic Hypertension uncontrolled Hyperlipidemia Prior history of smoking Anxiety/depression GERD DVT prophylaxis patient is already on Eliquis GI prophylaxis on Pepcid Plan: Patient being continued on IV Lasix 40 mg twice daily. Continue with telemetry and serial troponins. Patient was started back on aspirin, Plavix and lisinopril. Patient is also on Procardia XL 90 mg daily at home. Cardiology is on board. Continue the trazodone and Lexapro. Due to large right-sided pleural effusion pulmonary was consulted. Planning for thoracentesis. Eliquis is on hold. Continued pain management and follow-up closely. Prognosis guarded with multiple medical problems and comorbid conditions. Time with Patient: Greater than 30
[2023-05-25] MEDS: INSULIN DETEMIR (LEVEMIR) 100 UNIT/ML SYR SQ SCH (23:07)
[2023-05-26 06:20] LABS: Glucose,Whole Blood 126 mg/dL (70-110)
[2023-05-26] MEDS: FAMOTIDINE 20 MG TAB PO SCH (08:53)
[2023-05-26] MEDS: TAMSULOSIN 0.4 MG CAP.ER.24H PO SCH (08:53)
[2023-05-26] MEDS: ESCITALOPRAM 20 MG TAB PO SCH (08:53)
[2023-05-26 09:13] LABS: Basophils % (A) 0 %; Eosinophils # (A) 0.2 k/uL (0-0.7); Eosinophils % (A) 2 %; HCT 30.8 % (39.0-53.0); HGB 10.4 gm/dL (13.0-17.5); Hypochromasia Slight; Lymphocytes # (A) 1.2 k/uL (1.0-4.8); Lymphocytes % (A) 13 %; MCH 29.3 pg (25.0-35.0); MCHC 33.8 g/dL (31.0-37.0); MCV 86.5 fL (80.0-100.0); Mean Platelet Volume 8.9; Monocytes # (A) 0.6 k/uL (0-1.0); Monocytes % (A) 7 %; Neutrophils # (A) 6.5 k/uL (1.3-7.7); Neutrophils % (A) 75 %; Platelet Count 262 k/uL (150-450); RBC 3.56 m/uL (4.30-5.90); RDW 15.4 % (11.5-15.5); WBC 8.7 k/uL (3.8-10.6)
[2023-05-26 09:28] LABS: African American GFR (CKD) 69 (>60 ml/min/1.73 sqM); Anion Gap 8 mmol/L; Blood Urea Nitrogen 22 mg/dL (9-20); Calcium 8.6 mg/dL (8.4-10.2); Carbon Dioxide 30 mmol/L (22-30); Chloride 99 mmol/L (98-107); Glucose 137 mg/dL (74-99); Non-African American GFR(CKD) 60 (>60 ml/min/1.73 sqM); Potassium 3.6 mmol/L (3.5-5.1); Sodium 137 mmol/L (137-145)
--- NOTE | 2023-05-26 09:53 | CA ---
Transthoracic Echo Report Name: Reid Frost Age: 72 Gender: M : 1950 Exam Date: 05/25/2023 14:12 Exam Location: [place] [facility] Ht (in): 76 Wt (lb): 200 Ordering Physician: Becky Sidhu Attending/Referring Phys: [id number], [employer] Eryn Menendez, EMILY Procedure CPT: Indications: LVF Cardiac Hx: Technical Quality: Good Contrast 1: Definity Total Dose (mL): 2 Contrast 2: Total Dose (mL): MEASUREMENTS (Male / Female) Normal Values 2D ECHO LV Diastolic Diameter PLAX 5.0 cm 4.2 - 5.9 / 3.9 - 5.3 cm LV Systolic Diameter PLAX 3.7 cm IVS Diastolic Thickness 1.6 cm 0.6 - 1.0 / 0.6 - 0.9 cm LVPW Diastolic Thickness 1.5 cm 0.6 - 1.0 / 0.6 - 0.9 cm LV Relative Wall Thickness 0.6 RV Internal Dim ED PLAX 3.1 cm LA Systolic Diameter LX 4.2 cm 3.0 - 4.0 / 2.7 - 3.8 cm LV Diastolic Volume MOD BP 59.2 cm??? 67 - 155 / 56 - 104 cm??? LV Systolic Volume MOD BP 32.2 cm??? - / 19 - 49 cm??? LV Ejection Fraction MOD BP 45.5 % >= 55 % LV Cardiac Index MOD BP 988.7 cm???/min???m??? LV Diastolic Volume MOD 4C 57.1 cm??? LV Systolic Volume MOD 4C 33.4 cm??? LV Ejection Fraction MOD 4C 41.5 % LV Cardiac Index MOD 4C 870.3 cm???/min???m??? LV Diastolic Length 4C 8.1 cm LV Systolic Length 4C 7.9 cm LV Diastolic Volume MOD 2C 61.6 cm??? LV Systolic Volume MOD 2C 31.3 cm??? LV Ejection Fraction MOD 2C 49.2 % LV Cardiac Index MOD 2C 1113.3 cm???/min???m??? LV Diastolic Length 2C 8.0 cm LV Systolic Length 2C 7.3 cm LA Volume 78.9 cm??? - 58 / 22 - 52 cm??? LA Volume Index 35.7 cm???/m??? 16 - 28 cm???/m??? M-MODE Aortic Root Diameter MM 3.6 cm MV E Point Septal Separation 0.3 cm AV Cusp Separation MM 2.1 cm DOPPLER AV Peak Velocity 163.8 cm/s AV Peak Gradient 10.7 mmHg MV Area PHT 3.9 cm??? Mitral E Point Velocity 122.4 cm/s Mitral A Point Velocity 70.7 cm/s Mitral E to A Ratio 1.7 MV Deceleration Time 194.0 ms FINDINGS Left Ventricle Left ventricular ejection fraction is estimated at 40-45 %. Left ventricular cavity size normal. Moderately increased septal wall thickness. Mildly decreased left ventricular ejection fraction. Right Ventricle Normal right ventricular size. Unable to estimate the right ventricular systolic pressure. Right Atrium Right atrium not well visualized. Left Atrium Mildly increased left atrial diameter. Moderately increased left atrial volume. Mildly increased left atrial area. Mitral Valve Mitral valve thickened. Mild mitral annular calcification. Aortic Valve Trileaflet aortic valve. Thickened aortic valve without stenosis. Tricuspid Valve Tricuspid valve not well visualized. No tricuspid regurgitation. Pulmonic Valve Pulmonic valve not well visualized. Pericardium No pericardial effusion. Aorta Normal size aortic root and proximal ascending aorta. CONCLUSIONS Technically difficult study for interpretation Normal on the systolic function Mitral annular calcification and aortic sclerosis Previewed by: Dr. Ryan Starks MD (Electronically Signed) Final Date: 26 May 2023 09:52
[2023-05-26 11:37] LABS: Glucose,Whole Blood 235 mg/dL (70-110)
--- NOTE | 2023-05-26 12:04 | PCN ---
PROCEDURE NOTE PROCEDURE: Right thoracentesis. PREOPERATIVE DIAGNOSIS: Right pleural effusion. POSTOPERATIVE DIAGNOSIS: Right pleural effusion. The posterior chest on the right was marked. There was informed consent and universal timeout. The patient's procedure took place in room #378. LD TEACHER: Dr. Bo. FIRST REBAR BENDER: Dr. Brittanie Guerrero. DESCRIPTION OF PROCEDURE: The fluid will be sent for analysis including cytology, chemistry, and microbiology. 2 L total of bloody fluid was removed from the right pleural space. The patient tolerated the procedure well. There was no immediate complication. A chest x-ray was ordered to rule out pneumothorax. The fluid was sent for analysis. MMODL / IJN: [id number] /
--- NOTE | 2023-05-26 13:02 | P.PN ---
Subjective Progress Note Date: 05/26/23 Principal diagnosis: Shortness of breath. I am seeing this patient in new consultation today 05/25/2023 in the emergency room after he presented with worsening acute on chronic shortness of breath over the last 24 hours. He was noted to have a moderate to large size right-sided pleural effusion on his admission chest x-ray, and for this reason we were consulted. Patient is a 72-year-old white male with past medical history significant for Diabetes mellitus, hypertension, hyperlipidemia, bilateral [id number] amputation, former tobacco smoker, COPD, atrial fibrillation (anticoagulated on Eliquis), and coronary artery disease with previous PCI/stents. Patient had a admission for congestive heart failure November,. He was noted to have bilateral pleural effusions at that time, he was diuresed, and discharged home. Patient returned to the emergency room late last night complaining of progressively worsening acute on chronic shortness of breath over the last 24 hours. He is chronically oxygen dependent on 5 L/min nasal cannula at home. He is currently sitting up in bed, on 5 L/min nasal cannula, and he is dyspneic at rest. He speaks in phrases. SpO2 97%. Chest x- ray on arrival shows cardiomegaly with a moderate to large size right pleural effusion with associated right basilar atelectasis and possible left trace pleural effusion. He denies ever having a thoracentesis in the past. He does take Lasix twice a day at home. He states that he has not been peeing as much as normal. No other urinary complaints. Denies any chest pain. He does endorse orthopnea. NT proBNP on arrival was 5750. Most recent available echocardiogram, was done 10/26/22, showing a preserved left ventricular ejection fraction estimated at 55 to 60%. There was also mild mitral regurgitation and mild aortic regurgitation. He denies any change in his chronic cough. Occasional clear sputum production. Denies any fevers. Negative for influenza, RSV, COVID. The patient was also concerned about constipation for the last 3 days, which resolved yesterday after his daughter gave him a combination of stool softeners and other medications. He does report some associated nausea, denies any emesis. Denies any diarrhea since yesterday. Denies any abdominal pain. CBC on arrival: WBC count 12.5, hemoglobin 9.9, hematocrit 29.2, platelets 307. Coagulation profile WDL. BMP on arrival: Sodium 137, potassium 3.2, chloride 99, serum bicarb 34, BUN 22, creatinine 1.18, glucose 151. LFTs not elevated. Initial Troponin was elevated at 0.057. EKG done on arrival shows an accelerated junctional rhythm with similar QRS morphology to baseline. No obvious acute ischemic changes. Currently afebrile. Vital signs are stable. Progress note dated May 26, 2023. The patient is seen today in room 378. He continues on oxygen, at 2 L. He is not receiving any IV fluids. Today, we did a right-sided thoracentesis on the patient. 2 L of bloody fluid was removed from the right pleural space. It was sent for cytology, chemistry, and microbiology. The patient tolerated the procedure well. The post-thoracentesis chest x-ray revealed some residual right-sided effusion. White count is 8.7, hemoglobin 10.4, hematocrit 30.8, platelet count 362,000. Sodium 137, potassium 3.6, chloride 99, CO2 30, BUN 22, creatinine 1.22. Glucose is 137. Calcium 8.6. Chest x-ray showed a large right-sided pleural effusion. It was confirmed on ultrasound. Objective - Vital Signs Vital signs: Vital Signs Temp 98.2 F 05/26/23 12:00 Pulse 79 05/26/23 12:00 Resp 18 05/26/23 12:00 BP 143/63 05/26/23 12:00 Pulse Ox 99 05/26/23 12:00 FiO2 Intake & Output 05/25/23 05/26/23 05/26/23 18:59 06:59 18:59 Intake Total 240 360 Output Total 900 1000 1200 Balance -900 -760 -840 Weight 90.718 kg Intake: Oral 240 360 Output: Urine 900 1000 1200 Other: Voiding Method External Catheter External Catheter External Catheter - Exam No acute distress, oriented 3. The patient is currently on 2 L of oxygen. No respiratory distress. HEENT examination is grossly unremarkable. Mucous membranes are moist. No oral lesions. Neck supple. Full range of motion. No adenopathy thyromegaly or neck vein distention. Cardiovascular examination reveals regular rhythm rate. S1-S2 normal. No S3 or S4. No discernible murmur noted. Heart sounds are distant. Heart rate 79 bpm. Lungs reveal dullness and diminished breath sounds on the right. Left breath sounds are clear. 2 L saturation is 94%. No crackles. No wheezes. Abdomen soft bowel sounds are heard. No masses or tenderness. Extremities reveal bilateral [id number] amputations. Skin is without rash or lesion. Neurologic examination is brief but nonfocal. - Labs CBC & Chem 7: 05/26/23 08:38 05/26/23 08:38 Labs: Abnormal Lab Results - Last 24 Hours (Table) 05/25/23 05/25/23 05/25/23 Range/Units 14:53 16:32 20:40 RBC (4.30-5.90) m/uL Hgb (13.0-17.5) gm/dL Hct (39.0-53.0) % BUN (9-20) mg/dL Glucose (74-99) mg/dL POC Glucose (mg/dL) 225 H 169 H 226 H (70-110) mg/dL 05/26/23 05/26/23 05/26/23 Range/Units 06:15 08:38 08:38 RBC 3.56 L (4.30-5.90) m/uL Hgb 10.4 L (13.0-17.5) gm/dL Hct 30.8 L (39.0-53.0) % BUN 22 H (9-20) mg/dL Glucose 137 H (74-99) mg/dL POC Glucose (mg/dL) 126 H (70-110) mg/dL 05/26/23 Range/Units 11:34 RBC (4.30-5.90) m/uL Hgb (13.0-17.5) gm/dL Hct (39.0-53.0) % BUN (9-20) mg/dL Glucose (74-99) mg/dL POC Glucose (mg/dL) 235 H (70-110) mg/dL Assessment and Plan Assessment: Acute on chronic hypoxemic respiratory failure, secondary to suspected acute exacerbation of diastolic congestive heart failure. Elevated troponins, rule out non-ST elevation MT. Coronary artery disease, with history of previous PCI/stents to the RCA and LAD, most recent intervention done 10/17/22. Peripheral vascular disease, with history of bilateral [id number] amputations. Former tobacco dependence. Chronic obstructive pulmonary disease, stable. Chronic hypoxemic respiratory failure, normally maintained on 5 L/min nasal cannula. History of atrial fibrillation, anticoagulated on Eliquis. Anemia of chronic disease. Diabetes mellitus type 2, insulin-dependent. Hypertension. Hyperlipidemia. Morbid obesity, with a BMI of 52 kg/m. Plan: Plan dated May 26, 2023. The patient underwent a right-sided thoracentesis today. It was done in his room, and he tolerated the procedure very well. 2 L of bloody fluid was removed from the right pleural space. The posterior chest was marked by ultrasound. The fluid will be sent for analysis including chemistry, cytology, and microbiology. A post-thoracentesis chest x-ray showed residual fluid in the right pleural space. We will continue to follow the patient, make recommendations along the way. Prognosis is guarded. Time with Patient: Less than 30
--- NOTE | 2023-05-26 14:43 | P.PN ---
Subjective Progress Note Date: 05/26/23 Consult reason: congestive heart failure History of present illness: History of present illness: This is a 72-year-old male patient of Dr. Starks (has not followed up in the office since 2014) with past medical history of coronary artery disease with previous stents to the RCA and LAD, hypertension, dyslipidemia, diabetes, paroxysmal atrial fibrillation, chronic diastolic heart failure, severe peripheral vascular disease with bilateral jyvoj-[id number]-dile amputations, COPD, chronic hypoxic respiratory failure on home O2, chronic kidney disease, remote history of tobacco use. We have been asked to evaluate the patient for CHF. Patient does not know why he is here. But he does deny chest pain. No dizziness. No palpitations. No cough or wheezing. He complains of diarrhea apparently occurred following stool softeners.. Patient is seen today in the emergency center waiting for a bed on the cardiac stepdown unit. Patient is status post IV Lasix 40 mg x 1 and maintained on IV Lasix 40 mg every [address] with pulmonary medicine with plan for thoracentesis, Eliquis is on hold. EKG junctional rhythm with ventricular rate of 79 bpm, Chest x-ray: Cardiomegaly with moderate to large size right pleural effusion with associated right basilar atelectasis. WBC 12.5, hemoglobin 9.9, platelet count 307. INR 1. Sodium 137, potassium 3.2, chloride 99, CO2 34, BUN 22 creatinine 1.18. Blood sugar 151. Calcium 8.7, magnesium 2. Liver function test are normal. proBNP 5750. Troponin 0.057 and 0.065. Influenza A, influenza B, RSV, COVID-19 not detected. Home cardiac medications: Eliquis 5 mg twice daily, atorvastatin 80 mg daily, Plavix 75 mg daily, Farxiga 10 mg daily, Lasix 80 mg in the morning and 40 mg at 4 PM, magnesium oxide 400 mg daily, Procardia XL 90 mg daily, Nitrostat as needed. Echocardiogram performed 10/26/2022 revealed EF 55 to 60%, severe mitral annular calcification and mild mitral regurgitation, mild aortic regurgitation. Cardiac catheterization 10/17/2022 successful stenting of the mid LAD with JEFFERY. Cardiac catheterization performed at [facility] 09/2022 that revealed critical disease in the involving the heavily calcified right as well as severe disease involving the mid LAD. PCI performed at [facility] 09/30/2022 distal RCA stent, mid RCA stent. 05/25 Patient is seen today on the cardiac stepdown unit. He states that he is just now starting to catch his breath. He may have thoracentesis today with pulmonary medicine. He has been continued on IV Lasix 40 mg every 12 hours. Cardiology received call yesterday afternoon about high blood pressure and nitro paste and lisinopril added. Blood pressure remains high at 183/74, heart rate 73, pulse ox 98% on 3 L nasal cannula. Repeat blood work reveals hemoglobin 10.4. BUN 22 creatinine 1.22. Echocardiogram reveals EF of 40 to 45%, mitral annular calcification and aortic sclerosis. Physical examination: Gen: This is a 72-year-old male, no acute respiratory distress VS: reviewed HEENT: Head is atraumatic, normocephalic. Pupils equal, round. Sclerae is anicteric. LUNGS: Diminished breath sounds. No intercostal retractions. HEART: Regular rate and rhythm. No murmur. EXTREMITIES: Bilateral eigal-xch-kxfs amputations. NEUROLOGICAL: Patient is awake, alert and oriented x3. Assessment: Large right pleural effusion, possible thoracentesis today. Acute hypoxic respiratory failure secondary to acute diastolic heart failure and large right pleural effusion Elevated troponin, possible non-ST elevated [place] Paroxysmal atrial fibrillation Coronary artery disease with previous stent to the LAD 10/17/2022, RCA stentx2 09/30/2022 Severe peripheral vascular disease status post bilateral [id number] amputations COPD Diabetes Hypertension Hyperlipidemia Remote history of tobacco use Plan: Continue patient's home cardiac medications Patient started on Nitropaste 1 inch every 8 hours Continue patient on Farxiga 10 mg daily and lisinopril increased to 10 mg twice daily Continue patient on IV Lasix 40 mg every 12 hours Monitor MAX, daily weights, electrolytes and renal function Lenny is on hold for thoracentesis Further recommendations to follow based upon clinical course Nurse practitioner note has been reviewed, I agree with documented findings and plan of care. Patient was seen and examined. Objective - Vital Signs Vital signs: Vital Signs Temp 98.2 F 05/26/23 12:00 Pulse 79 05/26/23 12:00 Resp 18 05/26/23 12:00 BP 143/63 05/26/23 12:00 Pulse Ox 99 05/26/23 12:00 FiO2 Intake & Output 05/25/23 05/26/23 05/26/23 18:59 06:59 18:59 Intake Total 240 360 Output Total 900 1000 1200 Balance -517 -851 -840 Weight 90.718 kg Intake: Oral 240 360 Output: Urine 900 1000 1200 Other: Voiding Method External Catheter External Catheter External Catheter - Labs CBC & Chem 7: 05/26/23 08:38 05/26/23 08:38 Labs: Abnormal Lab Results - Last 24 Hours (Table) 05/25/23 05/25/23 05/25/23 Range/Units 14:53 16:32 20:40 RBC (4.30-5.90) m/uL Hgb (13.0-17.5) gm/dL Hct (39.0-53.0) % BUN (9-20) mg/dL Glucose (74-99) mg/dL POC Glucose (mg/dL) 225 H 169 H 226 H (70-110) mg/dL 05/26/23 05/26/23 05/26/23 Range/Units 06:15 08:38 08:38 RBC 3.56 L (4.30-5.90) m/uL Hgb 10.4 L (13.0-17.5) gm/dL Hct 30.8 L (39.0-53.0) % BUN 22 H (9-20) mg/dL Glucose 137 H (74-99) mg/dL POC Glucose (mg/dL) 126 H (70-110) mg/dL 05/26/23 Range/Units 11:34 RBC (4.30-5.90) m/uL Hgb (13.0-17.5) gm/dL Hct (39.0-53.0) % BUN (9-20) mg/dL Glucose (74-99) mg/dL POC Glucose (mg/dL) 235 H (70-110) mg/dL
[2023-05-26 16:22] LABS: Glucose,Whole Blood 232 mg/dL (70-110)
--- NOTE | 2023-05-26 16:28 | XR ---
EXAMINATION TYPE: XR chest 1V portable DATE OF EXAM: 05/26/2023 11:36 AM CLINICAL INDICATION:Male, 72 years old with history of S/P right thoracentesis; COMPARISON: Chest radiographs from 05/24/2023 TECHNIQUE: XR chest 1V portable Frontal view of the chest. FINDINGS: Lungs/Pleura: Moderate blunting of costophrenic angle on the right There is no evidence of left pleur al effusion, focal consolidation, or pneumothorax. Pulmonary vascularity: Unremarkable. Heart/mediastinum: Cardiomediastinal silhouette is enlarged and stable. Musculoskeletal: No acute osseous pathology. IMPRESSION: Status post right thoracentesis without evidence for pneumothorax. There remains moderate right pleur al effusion.
[2023-05-26 20:16] LABS: Glucose,Whole Blood 205 mg/dL (70-110)
[2023-05-26] MEDS: INSULIN DETEMIR (LEVEMIR) 100 UNIT/ML SYR SQ SCH (21:24)
[2023-05-26] MEDS: lisinopriL 10 MG TAB PO SCH (21:26)
[2023-05-26 21:47] LABS: Appearance,BF Bloody (Clear)
[2023-05-27 04:01] LABS: Glucose, BF Source Pleural fluid; Glucose, Body Fluid 148 mg/dL; LDH, Body Fluid Source Pleural fluid; T. Protein, Body Fluid Source Pleural fluid; Total Protein, Body Fluid >3600 mg/dL
[2023-05-27 06:14] LABS: Glucose,Whole Blood 89 mg/dL (70-110)
[2023-05-27] MEDS: FAMOTIDINE 20 MG TAB PO SCH (08:20)
[2023-05-27 10:00] LABS: Basophils % (A) 0 %; Eosinophils # (A) 0.2 k/uL (0-0.7); Eosinophils % (A) 3 %; HCT 31.5 % (39.0-53.0); HGB 10.4 gm/dL (13.0-17.5); Hypochromasia Slight; Lymphocytes % (A) 11 %; MCH 29.1 pg (25.0-35.0); MCV 87.9 fL (80.0-100.0); Mean Platelet Volume 8.4; Monocytes # (A) 0.6 k/uL (0-1.0); Monocytes % (A) 6 %; Neutrophils % (A) 78 %; Platelet Count 311 k/uL (150-450); RBC 3.58 m/uL (4.30-5.90); RDW 15.2 % (11.5-15.5)
[2023-05-27 10:06] LABS: African American GFR (CKD) 57 (>60 ml/min/1.73 sqM); Anion Gap 10 mmol/L; Blood Urea Nitrogen 28 mg/dL (9-20); Calcium 8.7 mg/dL (8.4-10.2); Carbon Dioxide 31 mmol/L (22-30); Chloride 99 mmol/L (98-107); Glucose 149 mg/dL (74-99); Non-African American GFR(CKD) 50 (>60 ml/min/1.73 sqM); Potassium 3.4 mmol/L (3.5-5.1); Sodium 140 mmol/L (137-145)
[2023-05-27 11:16] LABS: Glucose,Whole Blood 273 mg/dL (70-110)
[2023-05-27] MEDS ORDERED: Potassium Replacement Protocol 1 EACH MISC MISCELLANE PRN (11:16)
--- NOTE | 2023-05-27 11:18 | P.PN ---
Subjective Progress Note Date: 05/26/23 Patient is a 72-year-old male presents to ER with the complaints of worsening shortness of breath since yesterday and is also complaining of diarrhea which was thought to be due to patient taking stool softeners on daily basis. Patient does have a history of chronic hypoxic respiratory failure on 5 L oxygen via nasal cannula, hypertension, diabetes type 2, osteoarthritis, history of chronic venous stasis wounds and bilateral AKA, atrial fibrillation on anticoagulation with Eliquis, anxiety/depression prior history of smoking. Otherwise patient denied any complaints of fever or chills. Does have congested cough. No sputum production. No complaints of chest pain. No headache or dizziness or lightheadedness. Patient has been agitated at times in the ER and also requiring Haldol dose. On admission chest x-ray showed cardiomegaly with moderate to large size right pleural effusion with associated right basilar atelectasis. EKG showed possible right ventricular hypertrophy, junctional rhythm. Laboratory data showed WBC 12.4 hemoglobin 9.9 and platelets 15.3 Sodium 137 potassium 3.2 chloride 99 bicarb is 34 BUN 2020 creatinine 1.18 and blood sugar 151 Liver enzymes are not elevated. Troponin 0.057, 0.065 and albumin 3.4, proBNP 5750 COVID-19, influenza and RSV PCR not detected. 05/26/2023 Patient is sitting in the bed. Awake alert and oriented. Breathing status is better today. Patient is status post right thoracentesis with 2 L fluid removal. No complaints of worsening shortness of breath or chest pain. Afebrile. No nausea vomiting abdominal pain or diarrhea. Apparently patient has not been taking any oral anticoagulation at home due to insurance issues and co-pay. Currently being continued on Lasix IV 40 mg every 12 and Plavix. Continue on home medications. No further episodes of agitation overnight. Laboratory data showed WBC 8.7 hemoglobin 10.4 and platelets 262 Sodium 137 potassium 3.6 chloride 98 bicarb 30 BUN 2020 creatinine 1.22 and A1c level 8.5 Pulmonary and cardiology is on board. Current medications reviewed. Objective - Vital Signs Vital signs: Vital Signs Temp 98.1 F 05/26/23 16:00 Pulse 88 05/26/23 16:00 Resp 14 05/26/23 16:00 BP 129/58 05/26/23 16:00 Pulse Ox 94 L 05/26/23 16:00 FiO2 Intake & Output 05/26/23 05/26/23 05/27/23 06:59 18:59 06:59 Intake Total 240 1200 Output Total 1000 1800 Balance -760 -600 Intake: Oral 240 1200 Output: Urine 1000 1800 Other: Voiding Method External Catheter External Catheter - Exam PHYSICAL EXAMINATION: Patient is sitting on the side of the bed. Agitated and distressed., awake alert and oriented.. HEENT: Normocephalic. Neck is supple. Pupils reactive. Nostrils clear. Oral cavity is moist. Neck reveals no JVD, carotid bruits, or thyromegaly. CHEST EXAMINATION: Trachea is central. Symmetrical expansion. Left basilar crackles send right basilar diminished sounds.. No wheezing. CARDIAC: Normal S1, S2 with no gallops. No murmurs ABDOMEN: Soft. Bowel sounds normal. No organomegaly. No abdominal bruits. Extremities: Bilateral BKA a. No clubbing or cyanosis Neurologically awake, alert, oriented x 2-3 able to move upper extremities.. No gross focal deficits noted Skin: No rash or skin lesions. Psychiatric: Noncooperative, could not be assessed completely. Musculoskeletal: No joint swelling or deformity. - Labs CBC & Chem 7: 05/27/23 08:18 05/27/23 08:18 Labs: Abnormal Lab Results - Last 24 Hours (Table) 05/25/23 05/26/23 05/26/23 Range/Units 20:40 06:15 08:38 RBC (4.30-5.90) m/uL Hgb (13.0-17.5) gm/dL Hct (39.0-53.0) % BUN (9-20) mg/dL Glucose (74-99) mg/dL POC Glucose (mg/dL) 226 H 126 H (70-110) mg/dL Hemoglobin A1c 8.5 H (<=6.0) % 05/26/23 05/26/23 05/26/23 Range/Units 08:38 08:38 11:34 RBC 3.56 L (4.30-5.90) m/uL Hgb 10.4 L (13.0-17.5) gm/dL Hct 30.8 L (39.0-53.0) % BUN 22 H (9-20) mg/dL Glucose 137 H (74-99) mg/dL POC Glucose (mg/dL) 235 H (70-110) mg/dL Hemoglobin A1c (<=6.0) % 05/26/23 Range/Units 16:21 RBC (4.30-5.90) m/uL Hgb (13.0-17.5) gm/dL Hct (39.0-53.0) % BUN (9-20) mg/dL Glucose (74-99) mg/dL POC Glucose (mg/dL) 232 H (70-110) mg/dL Hemoglobin A1c (<=6.0) % Assessment and Plan Assessment: Acute on chronic hypoxemic respiratory failure due to CHF and large right-sided pleural effusion and trace left sided pleural effusion. S/p right thoracentesis on 05/26/2023 with 2 L removal. On 3 L oxygen via nasal cannula. Acute on chronic CHF with diastolic dysfunction Elevated troponin level possible type II [place] Coronary artery history of stent placement to RCA and LAD in 2022 Paroxysmal atrial fibrillation on anticoagulation with Eliquis at home Peripheral vascular disease with history of bilateral BKA COPD not in exacerbation Diabetes type 2 insulin-dependent Peripheral neuropathy diabetic Hypertension uncontrolled Hyperlipidemia Prior history of smoking Anxiety/depression GERD DVT prophylaxis patient is already on Eliquis GI prophylaxis on Pepcid Plan: Patient being continued on IV Lasix 40 mg twice daily. Continue with telemetry and serial troponins. Continue with oxygen supplementation. Patient was started back on aspirin, Plavix and lisinopril. Patient is also on Procardia XL 90 mg daily at home. Continue the trazodone and Lexapro. s/p rt thoracentesis. Pt. has not been taking Eliquis at home Continued pain management and follow-up closely. Prognosis guarded with multiple medical problems and comorbid conditions. Time with Patient: Greater than 30
--- NOTE | 2023-05-27 11:29 | P.PN ---
Subjective Progress Note Date: 05/27/23 Principal diagnosis: Shortness of breath. I am seeing this patient in new consultation today 05/25/2023 in the emergency room after he presented with worsening acute on chronic shortness of breath over the last 24 hours. He was noted to have a moderate to large size right-sided pleural effusion on his admission chest x-ray, and for this reason we were consulted. Patient is a 72-year-old white male with past medical history significant for Diabetes mellitus, hypertension, hyperlipidemia, bilateral mqbox-[id number] amputation, former tobacco smoker, COPD, atrial fibrillation (anticoagulated on Eliquis), and coronary artery disease with previous PCI/stents. Patient had a admission for congestive heart failure November,. He was noted to have bilateral pleural effusions at that time, he was diuresed, and discharged home. Patient returned to the emergency room late last night complaining of progressively worsening acute on chronic shortness of breath over the last 24 hours. He is chronically oxygen dependent on 5 L/min nasal cannula at home. He is currently sitting up in bed, on 5 L/min nasal cannula, and he is dyspneic at rest. He speaks in phrases. SpO2 97%. Chest x- ray on arrival shows cardiomegaly with a moderate to large size right pleural effusion with associated right basilar atelectasis and possible left trace pleural effusion. He denies ever having a thoracentesis in the past. He does take Lasix twice a day at home. He states that he has not been peeing as much as normal. No other urinary complaints. Denies any chest pain. He does endorse orthopnea. NT proBNP on arrival was 5750. Most recent available echocardiogram, was done 10/26/22, showing a preserved left ventricular ejection fraction estimated at 55 to 60%. There was also mild mitral regurgitation and mild aortic regurgitation. He denies any change in his chronic cough. Occasional clear sputum production. Denies any fevers. Negative for influenza, RSV, COVID. The patient was also concerned about constipation for the last 3 days, which resolved yesterday after his daughter gave him a combination of stool softeners and other medications. He does report some associated nausea, denies any emesis. Denies any diarrhea since yesterday. Denies any abdominal pain. CBC on arrival: WBC count 12.5, hemoglobin 9.9, hematocrit 29.2, platelets 307. Coagulation profile WDL. BMP on arrival: Sodium 137, potassium 3.2, chloride 99, serum bicarb 34, BUN 22, creatinine 1.18, glucose 151. LFTs not elevated. Initial Troponin was elevated at 0.057. EKG done on arrival shows an accelerated junctional rhythm with similar QRS morphology to baseline. No obvious acute ischemic changes. Currently afebrile. Vital signs are stable. Progress note dated May 26, 2023. The patient is seen today in room 378. He continues on oxygen, at 2 L. He is not receiving any IV fluids. Today, we did a right-sided thoracentesis on the patient. 2 L of bloody fluid was removed from the right pleural space. It was sent for cytology, chemistry, and microbiology. The patient tolerated the procedure well. The post-thoracentesis chest x-ray revealed some residual right-sided effusion. White count is 8.7, hemoglobin 10.4, hematocrit 30.8, platelet count 362,000. Sodium 137, potassium 3.6, chloride 99, CO2 30, BUN 22, creatinine 1.22. Glucose is 137. Calcium 8.6. Chest x-ray showed a large right-sided pleural effusion. It was confirmed on ultrasound. Progress note dated May 27, 2023. 72-year-old male who was seen today in room 378. The patient is currently on 3 L of oxygen. He had a high-volume thoracentesis done yesterday, on the right side. 2 L of bloody fluid was removed. The patient is improved. The patient will have a follow-up chest x-ray tomorrow. He is not receiving any IV fluids. Current laboratory data includes a white count 9, hemoglobin 10.4, hematocrit 31.5, and a platelet count of 311,000. Sodium 140, potassium 3.4, chlorides 99, CO2 31, BUN 28, and creatinine 1.43. Glucose is 149. Objective - Vital Signs Vital signs: Vital Signs Temp 98.1 F 05/27/23 08:12 Pulse 84 05/27/23 09:36 Resp 18 05/27/23 08:12 BP 129/59 05/27/23 08:12 Pulse Ox 98 05/27/23 08:12 FiO2 Intake & Output 05/26/23 05/27/23 05/27/23 18:59 06:59 18:59 Intake Total 1200 310 Output Total 1800 850 Balance -600 -850 310 Intake: Oral 1200 310 Output: Urine 1800 850 Other: Voiding Method External Catheter External Catheter External Catheter # Bowel Movements 1 - Exam No acute distress, oriented 3. The patient is currently on 2 L of oxygen. No respiratory distress. HEENT examination is grossly unremarkable. Mucous membranes are moist. No oral lesions. Neck supple. Full range of motion. No adenopathy thyromegaly or neck vein distention. Cardiovascular examination reveals regular rhythm rate. S1-S2 normal. No S3 or S4. No discernible murmur noted. Heart sounds are distant. Heart rate 84 bpm. Lungs reveal improved, but somewhat diminished breath sounds on the right. Breath sounds are clear. 3 L saturation is 98%. No crackles. No wheezes. Abdomen soft bowel sounds are heard. No masses or tenderness. Extremities reveal bilateral [id number] amputations. Skin is without rash or lesion. Neurologic examination is brief but nonfocal. - Labs CBC & Chem 7: 05/27/23 08:18 05/27/23 08:18 Labs: Abnormal Lab Results - Last 24 Hours (Table) 05/26/23 05/26/23 05/26/23 Range/Units 08:38 11:00 11:34 RBC (4.30-5.90) m/uL Hgb (13.0-17.5) gm/dL Hct (39.0-53.0) % Potassium (3.5-5.1) mmol/L Carbon Dioxide (22-30) mmol/L BUN (9-20) mg/dL Creatinine (0.66-1.25) mg/dL Glucose (74-99) mg/dL POC Glucose (mg/dL) 235 H (70-110) mg/dL Hemoglobin A1c 8.5 H (<=6.0) % Fluid Appearance Bloody A (Clear) 05/26/23 05/26/23 05/27/23 Range/Units 16:21 20:14 08:18 RBC 3.58 L (4.30-5.90) m/uL Hgb 10.4 L (13.0-17.5) gm/dL Hct 31.5 L (39.0-53.0) % Potassium (3.5-5.1) mmol/L Carbon Dioxide (22-30) mmol/L BUN (9-20) mg/dL Creatinine (0.66-1.25) mg/dL Glucose (74-99) mg/dL POC Glucose (mg/dL) 232 H 205 H (70-110) mg/dL Hemoglobin A1c (<=6.0) % Fluid Appearance (Clear) 05/27/23 05/27/23 Range/Units 08:18 11:12 RBC (4.30-5.90) m/uL Hgb (13.0-17.5) gm/dL Hct (39.0-53.0) % Potassium 3.4 L (3.5-5.1) mmol/L Carbon Dioxide 31 H (22-30) mmol/L BUN 28 H (9-20) mg/dL Creatinine 1.43 H (0.66-1.25) mg/dL Glucose 149 H (74-99) mg/dL POC Glucose (mg/dL) 273 H (70-110) mg/dL Hemoglobin A1c (<=6.0) % Fluid Appearance (Clear) Microbiology - Last 24 Hours (Table) 05/26/23 11:00 Gram Stain - Preliminary Pleural Fluid Body Fluid Culture - Preliminary Assessment and Plan Assessment: Acute on chronic hypoxemic respiratory failure, secondary to suspected acute exacerbation of diastolic congestive heart failure. Elevated troponins, rule out non-ST elevation NE. Coronary artery disease, with history of previous PCI/stents to the RCA and LAD, most recent intervention done 10/17/22. Peripheral vascular disease, with history of bilateral fjgxk-[id number]-[id number] amputations. Former tobacco dependence. Chronic obstructive pulmonary disease, stable. Chronic hypoxemic respiratory failure, normally maintained on 5 L/min nasal cannula. History of atrial fibrillation, anticoagulated on Eliquis. Anemia of chronic disease. Diabetes mellitus type 2, insulin-dependent. Hypertension. Hyperlipidemia. Morbid obesity, with a BMI of 52 kg/m. Plan: Plan dated May 26, 2023. The patient underwent a right-sided thoracentesis today. It was done in his room, and he tolerated the procedure very well. 2 L of bloody fluid was removed from the right pleural space. The posterior chest was marked by ultrasound. The fluid will be sent for analysis including chemistry, cytology, and microbiology. A post-thoracentesis chest x-ray showed residual fluid in the right pleural space. We will continue to follow the patient, make recommendations along the way. Prognosis is guarded. Plan dated May 27, 2023. The patient did have a right-sided thoracentesis performed yesterday. 2 L of bloody fluid was removed from the right pleural space. It was sent to the laboratory for analysis including chemistry, cytology, and microbiology. The patient is currently on 3 L. His breathing is much improved. Labs, x-rays, and medications are reviewed. We will continue to follow the patient, make recommendations along the way. Patient's overall prognosis remains guarded. Time with Patient: Less than 30
[2023-05-27] MEDS: POTASSIUM CHLORIDE ER 20 MEQ TAB.ER PO STA (11:50)
--- NOTE | 2023-05-27 14:02 | P.PN ---
Subjective Progress Note Date: 05/27/23 Consult reason: congestive heart failure History of present illness: History of present illness: This is a 72-year-old male patient of Dr. Starks (has not followed up in the office since 2014) with past medical history of coronary artery disease with previous stents to the RCA and LAD, hypertension, dyslipidemia, diabetes, paroxysmal atrial fibrillation, chronic diastolic heart failure, severe peripheral vascular disease with bilateral [id number] amputations, COPD, chronic hypoxic respiratory failure on home O2, chronic kidney disease, remote history of tobacco use. We have been asked to evaluate the patient for CHF. Patient does not know why he is here. But he does deny chest pain. No dizziness. No palpitations. No cough or wheezing. He complains of diarrhea apparently occurred following stool softeners.. Patient is seen today in the emergency center waiting for a bed on the cardiac stepdown unit. Patient is status post IV Lasix 40 mg x 1 and maintained on IV Lasix 40 mg every [address] with pulmonary medicine with plan for thoracentesis, Eliquis is on hold. EKG junctional rhythm with ventricular rate of 79 bpm, Chest x-ray: Cardiomegaly with moderate to large size right pleural effusion with associated right basilar atelectasis. WBC 12.5, hemoglobin 9.9, platelet count 307. INR 1. Sodium 137, potassium 3.2, chloride 99, CO2 34, BUN 22 creatinine 1.18. Blood sugar 151. Calcium 8.7, magnesium 2. Liver function test are normal. proBNP 5750. Troponin 0.057 and 0.065. Influenza A, influenza B, RSV, COVID-19 not detected. Home cardiac medications: Eliquis 5 mg twice daily, atorvastatin 80 mg daily, Plavix 75 mg daily, Farxiga 10 mg daily, Lasix 80 mg in the morning and 40 mg at 4 PM, magnesium oxide 400 mg daily, Procardia XL 90 mg daily, Nitrostat as needed. Echocardiogram performed 10/26/2022 revealed EF 55 to 60%, severe mitral annular calcification and mild mitral regurgitation, mild aortic regurgitation. Cardiac catheterization 10/17/2022 successful stenting of the mid LAD with JEFFERY. Cardiac catheterization performed at [facility] 09/2022 that revealed critical disease in the involving the heavily calcified right as well as severe disease involving the mid LAD. PCI performed at [facility] 09/30/2022 distal RCA stent, mid RCA stent. 05/25 Patient is seen today on the cardiac stepdown unit. He states that he is just now starting to catch his breath. He may have thoracentesis today with pulmonary medicine. He has been continued on IV Lasix 40 mg every 12 hours. Cardiology received call yesterday afternoon about high blood pressure and nitro paste and lisinopril added. Blood pressure remains high at 183/74, heart rate 73, pulse ox 98% on 3 L nasal cannula. Repeat blood work reveals hemoglobin 10.4. BUN 22 creatinine 1.22. Echocardiogram reveals EF of 40 to 45%, mitral annular calcification and aortic sclerosis. 05/26 Yesterday, patient underwent thoracentesis with pulmonary medicine on the right side with removal of 2 L of bloody fluid. Patient states that his breathing is improved today from yesterday. He denies having any chest pain. He states he has a little cough. Repeat chest x-ray reveals status post right thoracentesis without evidence of pneumothorax. There remains moderate right pleural effusion. Blood pressure 165/71, heart rate 56, pulse ox 99% on 3 L nasal cannula. Repeat blood work reveals WBC 9, hemoglobin 10.4, platelet count 311. Sodium 140, potassium 3.4 and was replaced, CO2 31, BUN 28 creatinine 1.43. Physical examination: Gen: This is a 72-year-old male, no acute respiratory distress VS: reviewed HEENT: Head is atraumatic, normocephalic. Pupils equal, round. Sclerae is anicteric. LUNGS: Diminished breath sounds. No intercostal retractions. HEART: Regular rate and rhythm. No murmur. EXTREMITIES: Bilateral ieofd-[id number]-[id number] amputations. NEUROLOGICAL: Patient is awake, alert and oriented x3. Assessment: Large right pleural effusion, status post thoracentesis Acute hypoxic respiratory failure secondary to acute diastolic heart failure and large right pleural effusion Elevated troponin, possible non-ST elevated GA Paroxysmal atrial fibrillation Coronary artery disease with previous stent to the LAD 10/17/2022, RCA stentx2 09/30/2022 Severe peripheral vascular disease status post bilateral [id number] amputations COPD Diabetes Hypertension Hyperlipidemia Remote history of tobacco use Plan: Continue patient's home cardiac medications Patient started on Nitropaste 1 inch every 8 hours Continue patient on Farxiga 10 mg daily and lisinopril increased to 10 mg twice daily Discontinue IV Lasix and resume patient on home dose of oral Lasix 80 mg morning 40 mg in the afternoon Monitor MAX, daily weights, electrolytes and renal function Resume Eliquis Further recommendations to follow based upon clinical course Nurse practitioner note has been reviewed, I agree with documented findings and plan of care. Patient was seen and examined. Objective - Vital Signs Vital signs: Vital Signs Temp 98.1 F 05/27/23 08:12 Pulse 84 05/27/23 09:36 Resp 18 05/27/23 08:12 BP 129/59 05/27/23 08:12 Pulse Ox 98 05/27/23 08:12 FiO2 Intake & Output 05/26/23 05/27/23 05/27/23 18:59 06:59 18:59 Intake Total 1200 310 Output Total 1800 850 Balance -600 -850 310 Intake: Oral 1200 310 Output: Urine 1800 850 Other: Voiding Method External Catheter External Catheter External Catheter # Bowel Movements 1 - Labs CBC & Chem 7: 05/27/23 08:18 05/27/23 08:18 Labs: Abnormal Lab Results - Last 24 Hours (Table) 05/26/23 05/26/23 05/26/23 Range/Units 08:38 11:00 16:21 RBC (4.30-5.90) m/uL Hgb (13.0-17.5) gm/dL Hct (39.0-53.0) % Potassium (3.5-5.1) mmol/L Carbon Dioxide (22-30) mmol/L BUN (9-20) mg/dL Creatinine (0.66-1.25) mg/dL Glucose (74-99) mg/dL POC Glucose (mg/dL) 232 H (70-110) mg/dL Hemoglobin A1c 8.5 H (<=6.0) % Fluid Appearance Bloody A (Clear) 05/26/23 05/27/23 05/27/23 Range/Units 20:14 08:18 08:18 RBC 3.58 L (4.30-5.90) m/uL Hgb 10.4 L (13.0-17.5) gm/dL Hct 31.5 L (39.0-53.0) % Potassium 3.4 L (3.5-5.1) mmol/L Carbon Dioxide 31 H (22-30) mmol/L BUN 28 H (9-20) mg/dL Creatinine 1.43 H (0.66-1.25) mg/dL Glucose 149 H (74-99) mg/dL POC Glucose (mg/dL) 205 H (70-110) mg/dL Hemoglobin A1c (<=6.0) % Fluid Appearance (Clear) 05/27/23 Range/Units 11:12 RBC (4.30-5.90) m/uL Hgb (13.0-17.5) gm/dL Hct (39.0-53.0) % Potassium (3.5-5.1) mmol/L Carbon Dioxide (22-30) mmol/L BUN (9-20) mg/dL Creatinine (0.66-1.25) mg/dL Glucose (74-99) mg/dL POC Glucose (mg/dL) 273 H (70-110) mg/dL Hemoglobin A1c (<=6.0) % Fluid Appearance (Clear) Microbiology - Last 24 Hours (Table) 05/26/23 11:00 Gram Stain - Preliminary Pleural Fluid Body Fluid Culture - Preliminary
[2023-05-27] MEDS: APIXABAN 5 MG TAB PO SCH (15:17)
[2023-05-27] MEDS: FUROSEMIDE 40 MG TAB PO SCH (15:20)
[2023-05-27 16:18] LABS: Glucose,Whole Blood 133 mg/dL (70-110)
[2023-05-27 20:06] LABS: Glucose,Whole Blood 254 mg/dL (70-110)
[2023-05-28 00:01] LABS: Glucose,Whole Blood 208 mg/dL (70-110)
[2023-05-28] MEDS: POTASSIUM CHLORIDE ER 20 MEQ TAB.ER PO SCH (01:08)
[2023-05-28 06:00] LABS: African American GFR (CKD) 61 (>60 ml/min/1.73 sqM); Anion Gap 9 mmol/L; Blood Urea Nitrogen 29 mg/dL (9-20); Carbon Dioxide 28 mmol/L (22-30); Chloride 102 mmol/L (98-107); Glucose 144 mg/dL (74-99); Non-African American GFR(CKD) 53 (>60 ml/min/1.73 sqM); Potassium 4.4 mmol/L (3.5-5.1); Sodium 139 mmol/L (137-145)
[2023-05-28 07:22] LABS: Glucose,Whole Blood 151 mg/dL (70-110)
[2023-05-28] MEDS: FUROSEMIDE 80 MG TAB PO SCH (08:39)
--- NOTE | 2023-05-28 10:01 | P.PN ---
Subjective HISTORY OF PRESENT ILLNESS: This is a 72-year-old male patient of Dr. Starks (has not followed up in the office since 2014) with past medical history of coronary artery disease with previous stents to the RCA and LAD, hypertension, dyslipidemia, diabetes, paroxysmal atrial fibrillation, chronic diastolic heart failure, severe peripheral vascular disease with bilateral kfhvi-hmb-[id number] amputations, COPD, chronic hypoxic respiratory failure on home O2, chronic kidney disease, remote history of tobacco use. We have been asked to evaluate the patient for CHF. Patient does not know why he is here. But he does deny chest pain. No dizziness. No palpitations. No cough or wheezing. He complains of diarrhea apparently occurred following stool softeners.. Patient is seen today in the emergency center waiting for a bed on the cardiac stepdown unit. Patient is status post IV Lasix 40 mg x 1 and maintained on IV Lasix 40 mg every [address] with pulmonary medicine with plan for thoracentesis, Eliquis is on hold. EKG junctional rhythm with ventricular rate of 79 bpm, Chest x-ray: Cardiomegaly with moderate to large size right pleural effusion with associated right basilar atelectasis. WBC 12.5, hemoglobin 9.9, platelet count 307. INR 1. Sodium 137, potassium 3.2, chloride 99, CO2 34, BUN 22 creatinine 1.18. Blood sugar 151. Calcium 8.7, magnesium 2. Liver function test are normal. proBNP 5750. Troponin 0.057 and 0.065. Influenza A, influenza B, RSV, COVID-19 not detected. Home cardiac medications: Eliquis 5 mg twice daily, atorvastatin 80 mg daily, Plavix 75 mg daily, Farxiga 10 mg daily, Lasix 80 mg in the morning and 40 mg at 4 PM, magnesium oxide 400 mg daily, Procardia XL 90 mg daily, Nitrostat as needed. Echocardiogram performed 10/26/2022 revealed EF 55 to 60%, severe mitral annular calcification and mild mitral regurgitation, mild aortic regurgitation. Cardiac catheterization 10/17/2022 successful stenting of the mid LAD with JEFFERY. Cardiac catheterization performed at [facility] 09/2022 that revealed critical disease in the involving the heavily calcified right as well as severe disease involving the mid LAD. PCI performed at [facility] 09/30/2022 distal RCA stent, mid RCA stent. 05/25 Patient is seen today on the cardiac stepdown unit. He states that he is just n ow starting to catch his breath. He may have thoracentesis today with pulmonary medicine. He has been continued on IV Lasix 40 mg every 12 hours. Cardiology received call yesterday afternoon about high blood pressure and nitro paste and lisinopril added. Blood pressure remains high at 183/74, heart rate 73, pulse ox 98% on 3 L nasal cannula. Repeat blood work reveals hemoglobin 10.4. BUN 22 creatinine 1.22. Echocardiogram reveals EF of 40 to 45%, mitral annular calcification and aortic sclerosis. 05/26 Yesterday, patient underwent thoracentesis with pulmonary medicine on the right side with removal of 2 L of bloody fluid. Patient states that his breathing is improved today from yesterday. He denies having any chest pain. He states he has a little cough. Repeat chest x-ray reveals status post right thoracentesis without evidence of pneumothorax. There remains moderate right pleural effusion. Blood pressure 165/71, heart rate 56, pulse ox 99% on 3 L nasal cannula. Repeat blood work reveals WBC 9, hemoglobin 10.4, platelet count 311. Sodium 140, potassium 3.4 and was replaced, CO2 31, BUN 28 creatinine 1.43. 05/28/2023 Patient examined this morning at the bedside. Patient currently denies chest pain or pressure. He denies shortness of breath. He is sitting up in the bed eating breakfast and appears to be in no acute distress. Vital signs are stable. He remains on oral diuretics. PHYSICAL EXAM: VITAL SIGNS: Reviewed. GENERAL: Well-developed in no acute distress. NECK: Supple. No JVD or thyromegaly LUNGS: Respirations even and unlabored. Lungs diminished, right more than left. HEART: Regular rate and rhythm. S1 and S2 heard. EXTREMITIES: Normal range of motion. No clubbing or cyanosis. Bilateral fhbbo-gaz-[id number] amputations. ASSESSMENT: Large right pleural effusion, status post thoracentesis Acute hypoxic respiratory failure secondary to acute diastolic heart failure and large right pleural effusion Elevated troponin, likely type II [place] Paroxysmal atrial fibrillation Coronary artery disease with previous stent to the LAD 10/17/2022, RCA stentx2 09/30/2022 Severe peripheral vascular disease status post bilateral wptrq-bfl-yylc amputations COPD Diabetes Hypertension Hyperlipidemia Remote history of tobacco use PLAN: Continue current cardiac medications Discontinue Nitropaste Pulmonary following. Chest x-ray ordered for this morning. Patient is currently stable from a cardiac perspective Further recommendations pending patient course Nurse practitioner note has been reviewed by physician. Signing provider agrees with the documented findings, assessment, and plan of care documented by NATIONAL ACCOUNT REPRESENTATIVE as a scribe. Objective - Vital Signs Vital signs: Vital Signs Temp 97.9 F 05/28/23 07:19 Pulse 80 05/28/23 08:00 Resp 16 05/28/23 07:19 BP 150/65 05/28/23 07:19 Pulse Ox 100 05/28/23 07:43 FiO2 Intake & Output 05/27/23 05/28/23 05/28/23 18:59 06:59 18:59 Intake Total 530 590 Output Total 900 400 Balance -370 190 Intake: Oral 530 590 Output: Urine 900 400 Other: Voiding Method External Catheter External Catheter External Catheter # Bowel Movements 1 - Labs CBC & Chem 7: 05/27/23 08:18 05/28/23 04:40 Labs: Abnormal Lab Results - Last 24 Hours (Table) 05/27/23 05/27/23 05/27/23 Range/Units 08:18 08:18 11:12 RBC 3.58 L (4.30-5.90) m/uL Hgb 10.4 L (13.0-17.5) gm/dL Hct 31.5 L (39.0-53.0) % Potassium 3.4 L (3.5-5.1) mmol/L Carbon Dioxide 31 H (22-30) mmol/L BUN 28 H (9-20) mg/dL Creatinine 1.43 H (0.66-1.25) mg/dL Glucose 149 H (74-99) mg/dL POC Glucose (mg/dL) 273 H (70-110) mg/dL 05/27/23 05/27/23 05/28/23 Range/Units 16:15 20:04 00:00 RBC (4.30-5.90) m/uL Hgb (13.0-17.5) gm/dL Hct (39.0-53.0) % Potassium (3.5-5.1) mmol/L Carbon Dioxide (22-30) mmol/L BUN (9-20) mg/dL Creatinine (0.66-1.25) mg/dL Glucose (74-99) mg/dL POC Glucose (mg/dL) 133 H 254 H 208 H (70-110) mg/dL 05/28/23 05/28/23 Range/Units 04:40 07:21 RBC (4.30-5.90) m/uL Hgb (13.0-17.5) gm/dL Hct (39.0-53.0) % Potassium (3.5-5.1) mmol/L Carbon Dioxide (22-30) mmol/L BUN 29 H (9-20) mg/dL Creatinine 1.35 H (0.66-1.25) mg/dL Glucose 144 H (74-99) mg/dL POC Glucose (mg/dL) 151 H (70-110) mg/dL Microbiology - Last 24 Hours (Table) 05/26/23 11:00 Acid Fast Bacilli Smear - Preliminary Pleural Fluid 05/26/23 11:00 Gram Stain - Preliminary Pleural Fluid Body Fluid Culture - Preliminary
--- NOTE | 2023-05-28 10:27 | P.PN ---
Subjective Progress Note Date: 05/27/23 Patient is a 72-year-old male presents to ER with the complaints of worsening shortness of breath since yesterday and is also complaining of diarrhea which was thought to be due to patient taking stool softeners on daily basis. Patient does have a history of chronic hypoxic respiratory failure on 5 L oxygen via nasal cannula, hypertension, diabetes type 2, osteoarthritis, history of chronic venous stasis wounds and bilateral AKA, atrial fibrillation on anticoagulation with Eliquis, anxiety/depression prior history of smoking. Otherwise patient denied any complaints of fever or chills. Does have congested cough. No sputum production. No complaints of chest pain. No headache or dizziness or lightheadedness. Patient has been agitated at times in the ER and also requiring Haldol dose. On admission chest x-ray showed cardiomegaly with moderate to large size right pleural effusion with associated right basilar atelectasis. EKG showed possible right ventricular hypertrophy, junctional rhythm. Laboratory data showed WBC 12.4 hemoglobin 9.9 and platelets 15.3 Sodium 137 potassium 3.2 chloride 99 bicarb is 34 BUN 2020 creatinine 1.18 and blood sugar 151 Liver enzymes are not elevated. Troponin 0.057, 0.065 and albumin 3.4, proBNP 5750 COVID-19, influenza and RSV PCR not detected. 05/26/2023 Patient is sitting in the bed. Awake alert and oriented. Breathing status is better today. Patient is status post right thoracentesis with 2 L fluid removal. No complaints of worsening shortness of breath or chest pain. Afebrile. No nausea vomiting abdominal pain or diarrhea. Apparently patient has not been taking any oral anticoagulation at home due to insurance issues and co-pay. Currently being continued on Lasix IV 40 mg every 12 and Plavix. Continue on home medications. No further episodes of agitation overnight. Laboratory data showed WBC 8.7 hemoglobin 10.4 and platelets 262 Sodium 137 potassium 3.6 chloride 98 bicarb 30 BUN 2020 creatinine 1.22 and A1c level 8.5 Pulmonary and cardiology is on board. 05/27/2023 Patient is sitting in the bed. Awake alert and orient x 3. On 3 L oxygen via nasal cannula. No complaints of chest pain. Shortness of breath is much improved. Patient is s/p right thoracentesis with 2 L fluid removal. Repeat chest x-ray showed status post right thoracentesis without evidence for pneumothorax. There remains moderate right pleural effusion. Patient was continued on IV diuretics and currently changed to by mouth. Patient has been afebrile. Laboratory data showed WBC 9.0 hemoglobin 10.4 and platelets 311 Sodium 140 potassium 3.4 chloride 99 bicarb 31 BUN 28 and creatinine increased to 1.43 and blood sugar is 149. Family is at bedside and patient's status has been updated. Current medications reviewed. Objective - Vital Signs Vital signs: Vital Signs Temp 98.1 F 05/27/23 08:12 Pulse 84 05/27/23 09:36 Resp 18 05/27/23 08:12 BP 129/59 05/27/23 08:12 Pulse Ox 98 05/27/23 08:12 FiO2 Intake & Output 05/26/23 05/27/23 05/27/23 18:59 06:59 18:59 Intake Total 1200 310 Output Total 1800 850 Balance -600 -850 310 Intake: Oral 1200 310 Output: Urine 1800 850 Other: Voiding Method External Catheter External Catheter External Catheter # Bowel Movements 1 - Exam PHYSICAL EXAMINATION: Patient is sitting on the side of the bed. Agitated and distressed., awake alert and oriented.. HEENT: Normocephalic. Neck is supple. Pupils reactive. Nostrils clear. Oral cavity is moist. Neck reveals no JVD, carotid bruits, or thyromegaly. CHEST EXAMINATION: Trachea is central. Symmetrical expansion. Left basilar crackles send right basilar diminished sounds.. No wheezing. CARDIAC: Normal S1, S2 with no gallops. No murmurs ABDOMEN: Soft. Bowel sounds normal. No organomegaly. No abdominal bruits. Extremities: Bilateral BKA a. No clubbing or cyanosis Neurologically awake, alert, oriented x 2-3 able to move upper extremities.. No gross focal deficits noted Skin: No rash or skin lesions. Psychiatric: Noncooperative, could not be assessed completely. Musculoskeletal: No joint swelling or deformity. - Labs CBC & Chem 7: 05/27/23 08:18 05/28/23 04:40 Labs: Abnormal Lab Results - Last 24 Hours (Table) 05/26/23 05/26/23 05/26/23 Range/Units 08:38 11:00 11:34 RBC (4.30-5.90) m/uL Hgb (13.0-17.5) gm/dL Hct (39.0-53.0) % Potassium (3.5-5.1) mmol/L Carbon Dioxide (22-30) mmol/L BUN (9-20) mg/dL Creatinine (0.66-1.25) mg/dL Glucose (74-99) mg/dL POC Glucose (mg/dL) 235 H (70-110) mg/dL Hemoglobin A1c 8.5 H (<=6.0) % Fluid Appearance Bloody A (Clear) 05/26/23 05/26/23 05/27/23 Range/Units 16:21 20:14 08:18 RBC 3.58 L (4.30-5.90) m/uL Hgb 10.4 L (13.0-17.5) gm/dL Hct 31.5 L (39.0-53.0) % Potassium (3.5-5.1) mmol/L Carbon Dioxide (22-30) mmol/L BUN (9-20) mg/dL Creatinine (0.66-1.25) mg/dL Glucose (74-99) mg/dL POC Glucose (mg/dL) 232 H 205 H (70-110) mg/dL Hemoglobin A1c (<=6.0) % Fluid Appearance (Clear) 05/27/23 05/27/23 Range/Units 08:18 11:12 RBC (4.30-5.90) m/uL Hgb (13.0-17.5) gm/dL Hct (39.0-53.0) % Potassium 3.4 L (3.5-5.1) mmol/L Carbon Dioxide 31 H (22-30) mmol/L BUN 28 H (9-20) mg/dL Creatinine 1.43 H (0.66-1.25) mg/dL Glucose 149 H (74-99) mg/dL POC Glucose (mg/dL) 273 H (70-110) mg/dL Hemoglobin A1c (<=6.0) % Fluid Appearance (Clear) Microbiology - Last 24 Hours (Table) 05/26/23 11:00 Gram Stain - Preliminary Pleural Fluid Body Fluid Culture - Preliminary Assessment and Plan Assessment: Acute on chronic hypoxemic respiratory failure due to CHF and large right-sided pleural effusion and trace left sided pleural effusion. S/p right thoracentesis on 05/26/2023 with 2 L removal. On 3 L oxygen via nasal cannula. Acute on chronic CHF with diastolic dysfunction Elevated troponin level possible type II [place] Coronary artery history of stent placement to RCA and LAD in 2022 Paroxysmal atrial fibrillation on anticoagulation with Eliquis at home Peripheral vascular disease with history of bilateral BKA COPD not in exacerbation Diabetes type 2 insulin-dependent Peripheral neuropathy diabetic Hypertension uncontrolled Hyperlipidemia Prior history of smoking Anxiety/depression GERD DVT prophylaxis patient is already on Eliquis GI prophylaxis on Pepcid Plan: Patient was continued on IV Lasix 40 mg twice daily. Changed to Lasix p.o. twice daily. Continue with telemetry.. Continue with oxygen supplementation 3 etravirine nasal cannula.. Patient was started back on aspirin, Plavix and lisinopril. Patient is also on Procardia XL 90 mg daily at home. Continue the trazodone and Lexapro. s/p rt thoracentesis. Pt. has not been taking Eliquis at home due to high co- pay. Social work is following for possible changing to Xarelto. Continued pain management and follow-up closely. Prognosis guarded with multiple medical problems and comorbid conditions. Time with Patient: Greater than 30
--- NOTE | 2023-05-28 11:09 | P.PN ---
Subjective Progress Note Date: 05/28/23 I am seeing this patient in new consultation today 05/25/2023 in the emergency room after he presented with worsening acute on chronic shortness of breath over the last 24 hours. He was noted to have a moderate to large size right-sided pleural effusion on his admission chest x-ray, and for this reason we were consulted. Patient is a 72-year-old white male with past medical history significant for Diabetes mellitus, hypertension, hyperlipidemia, bilateral [id number] amputation, former tobacco smoker, COPD, atrial fibrillation (anticoagulated on Eliquis), and coronary artery disease with previous PCI/stents. Patient had a admission for congestive heart failure November,. He was noted to have bilateral pleural effusions at that time, he was diuresed, and discharged home. Patient returned to the emergency room late last night complaining of progressively worsening acute on chronic shortness of breath over the last 24 hours. He is chronically oxygen dependent on 5 L/min nasal cannula at home. He is currently sitting up in bed, on 5 L/min nasal cannula, and he is dyspneic at rest. He speaks in phrases. SpO2 97%. Chest x- ray on arrival shows cardiomegaly with a moderate to large size right pleural effusion with associated right basilar atelectasis and possible left trace pleural effusion. He denies ever having a thoracentesis in the past. He does take Lasix twice a day at home. He states that he has not been peeing as much as normal. No other urinary complaints. Denies any chest pain. He does endorse orthopnea. NT proBNP on arrival was 5750. Most recent available echocardiogram, was done 10/26/22, showing a preserved left ventricular ejection fraction estimated at 55 to 60%. There was also mild mitral regurgitation and mild aortic regurgitation. He denies any change in his chronic cough. Occasional clear sputum production. Denies any fevers. Negative for influenza, RSV, COVID. The patient was also concerned about constipation for the last 3 days, which resolved yesterday after his daughter gave him a combination of stool softeners and other medications. He does report some associated nausea, denies any emesis. Denies any diarrhea since yesterday. Denies any abdominal pain. CBC on arrival: WBC count 12.5, hemoglobin 9.9, hematocrit 29.2, platelets 307. Coagulation profile WDL. BMP on arrival: Sodium 137, potassium 3.2, chloride 99, serum bicarb 34, BUN 22, creatinine 1.18, glucose 151. LFTs not elevated. Initial Troponin was elevated at 0.057. EKG done on arrival shows an accelerated junctional rhythm with similar QRS morphology to baseline. No obvious acute ischemic changes. Currently afebrile. Vital signs are stable. Progress note dated May 26, 2023. The patient is seen today in room 378. He continues on oxygen, at 2 L. He is not receiving any IV fluids. Today, we did a right-sided thoracentesis on the patient. 2 L of bloody fluid was removed from the right pleural space. It was sent for cytology, chemistry, and microbiology. The patient tolerated the procedure well. The post-thoracentesis chest x-ray revealed some residual right-sided effusion. White count is 8.7, hemoglobin 10.4, hematocrit 30.8, p latelet count 362,000. Sodium 137, potassium 3.6, chloride 99, CO2 30, BUN 22, creatinine 1.22. Glucose is 137. Calcium 8.6. Chest x-ray showed a large right-sided pleural effusion. It was confirmed on ultrasound. Progress note dated May 27, 2023. 72-year-old male who was seen today in room 378. The patient is currently on 3 L of oxygen. He had a high-volume thoracentesis done yesterday, on the right side. 2 L of bloody fluid was removed. The patient is improved. The patient will have a follow-up chest x-ray tomorrow. He is not receiving any IV fluids. Current laboratory data includes a white count 9, hemoglobin 10.4, hematocrit 31.5, and a platelet count of 311,000. Sodium 140, potassium 3.4, chlorides 99, CO2 31, BUN 28, and creatinine 1.43. Glucose is 149. The patient is seen today May 28, 2023 in follow-up on the regular medical floor. He is awake and alert in no acute distress. Currently sitting up in bed. He denies any worsening shortness of breath, cough or congestion. He is breathing easier today compared to yesterday. He is maintaining O2 saturations in the 90s on 3 L/min per nasal cannula. Pleural fluid cultures revealed no growth. Sodium 139. Potassium 4.4. Bicarb 28. BUN 29. Creatinine 1.35. Glucose 144. He remains on oral diuretics. Currently in a negative balance. Eliquis has been resumed. Follow-up chest x-ray is pending. Objective - Vital Signs Vital signs: Vital Signs Temp 97.9 F 05/28/23 07:19 Pulse 82 05/28/23 10:55 Resp 16 05/28/23 07:19 BP 150/65 05/28/23 07:19 Pulse Ox 100 05/28/23 07:43 FiO2 Intake & Output 05/27/23 05/28/23 05/28/23 18:59 06:59 18:59 Intake Total 530 590 Output Total 900 400 Balance -370 190 Intake: Oral 530 590 Output: Urine 900 400 Other: Voiding Method External Catheter External Catheter External Catheter # Bowel Movements 1 - Exam GENERAL EXAM: Alert, pleasant 72-year-old male, on 3 L nasal cannula, co mfortable in no apparent distress. HEAD: Normocephalic. EYES: Normal reaction of pupils, equal size. NOSE: Clear with pink turbinates. THROAT: No erythema or exudates. NECK: No masses, no JVD. CHEST: No chest wall deformity. LUNGS: Equal air entry with crackles in the right base. Diminished. CVS: S1 and S2 normal with no audible murmur, regular rhythm. ABDOMEN: No hepatosplenomegaly, normal bowel sounds, no guarding or rigidity. SPINE: No scoliosis or deformity SKIN: No rashes CENTRAL NERVOUS SYSTEM: No focal deficits, tone is normal in all 4 extremities. EXTREMITIES: Bilateral jhrpj-aqo-qstm amputee. - Labs CBC & Chem 7: 05/27/23 08:18 05/28/23 04:40 Labs: Abnormal Lab Results - Last 24 Hours (Table) 05/27/23 05/27/23 05/27/23 Range/Units 11:12 16:15 20:04 BUN (9-20) mg/dL Creatinine (0.66-1.25) mg/dL Glucose (74-99) mg/dL POC Glucose (mg/dL) 273 H 133 H 254 H (70-110) mg/dL 05/28/23 05/28/23 05/28/23 Range/Units 00:00 04:40 07:21 BUN 29 H (9-20) mg/dL Creatinine 1.35 H (0.66-1.25) mg/dL Glucose 144 H (74-99) mg/dL POC Glucose (mg/dL) 208 H 151 H (70-110) mg/dL Microbiology - Last 24 Hours (Table) 05/26/23 11:00 Gram Stain - Preliminary Pleural Fluid Body Fluid Culture - Preliminary 05/26/23 11:00 Acid Fast Bacilli Smear - Preliminary Pleural Fluid Assessment and Plan Assessment: Acute on chronic hypoxemic respiratory failure, secondary to suspected acute exacerbation of diastolic congestive heart failure Elevated troponins, rule out non-ST elevation [place] Coronary artery disease, with history of previous PCI/stents to the RCA and LAD, most recent intervention done 10/17/22 Peripheral vascular disease, with history of bilateral [id number] amputations Former tobacco dependence Chronic obstructive pulmonary disease, stable Chronic hypoxemic respiratory failure, normally maintained on 5 L/min nasal cannula History of atrial fibrillation, anticoagulated on Eliquis Anemia of chronic disease Diabetes mellitus type 2, insulin-dependent Hypertension Hyperlipidemia Morbid obesity, with a BMI of 52 kg/m Plan: The patient was seen and evaluated Labs and medications reviewed Follow-up chest x-ray pending Continue the current treatment plan Eliquis has been resumed Transitioned to oral diuretics Plan is home with home care and visiting physicians at discharge I have personally seen and examined the patient, performed the documentation and the assessment and plan as written. Number of minutes spent on the visit: 10.
[2023-05-28 11:57] LABS: Glucose,Whole Blood 188 mg/dL (70-110)
--- NOTE | 2023-05-28 13:21 | XR ---
EXAMINATION TYPE: XR chest 1V portable DATE OF EXAM: 05/28/2023 1:09 PM CLINICAL INDICATION:Male, 72 years old with history of Pleural effusion; [facility] COMPARISON: Chest radiographs from 05/26/2023. TECHNIQUE: XR chest 1V portable Frontal view of the chest. FINDINGS: Lungs/Pleura: Small moderate right pleural effusion remains. There is no evidence of left pleural eff usion, focal consolidation, or pneumothorax. Pulmonary vascularity: Unremarkable. Heart/mediastinum: Cardiomediastinal silhouette is unremarkable. Musculoskeletal: No acute osseous pathology. Other findings: None IMPRESSION: Small to moderate right pleural effusion with cardiomegaly similar to prior.
[2023-05-28 17:23] LABS: Glucose,Whole Blood 210 mg/dL (70-110)
[2023-05-28 20:05] LABS: Glucose,Whole Blood 206 mg/dL (70-110)
[2023-05-28] MEDS: LORazepam 0.5 MG TAB PO PRN (22:13)
[2023-05-28] MEDS: ZINC OXIDE PASTE (Z-GUARD) 1 APPLIC TOPICAL PRN (22:16)
--- NOTE | 2023-05-29 01:10 | P.PN ---
Subjective Progress Note Date: 05/28/23 Patient is a 72-year-old male presents to ER with the complaints of worsening shortness of breath since yesterday and is also complaining of diarrhea which was thought to be due to patient taking stool softeners on daily basis. Patient does have a history of chronic hypoxic respiratory failure on 5 L oxygen via nasal cannula, hypertension, diabetes type 2, osteoarthritis, history of chronic venous stasis wounds and bilateral AKA, atrial fibrillation on anticoagulation with Eliquis, anxiety/depression prior history of smoking. Otherwise patient denied any complaints of fever or chills. Does have congested cough. No sputum production. No complaints of chest pain. No headache or dizziness or lightheadedness. Patient has been agitated at times in the ER and also requiring Haldol dose. On admission chest x-ray showed cardiomegaly with moderate to large size right pleural effusion with associated right basilar atelectasis. EKG showed possible right ventricular hypertrophy, junctional rhythm. Laboratory data showed WBC 12.4 hemoglobin 9.9 and platelets 15.3 Sodium 137 potassium 3.2 chloride 99 bicarb is 34 BUN 2020 creatinine 1.18 and blood sugar 151 Liver enzymes are not elevated. Troponin 0.057, 0.065 and albumin 3.4, proBNP 5750 COVID-19, influenza and RSV PCR not detected. 05/26/2023 Patient is sitting in the bed. Awake alert and oriented. Breathing status is better today. Patient is status post right thoracentesis with 2 L fluid removal. No complaints of worsening shortness of breath or chest pain. Afebrile. No nausea vomiting abdominal pain or diarrhea. Apparently patient has not been taking any oral anticoagulation at home due to insurance issues and co-pay. Currently being continued on Lasix IV 40 mg every 12 and Plavix. Continue on home medications. No further episodes of agitation overnight. Laboratory data showed WBC 8.7 hemoglobin 10.4 and platelets 262 Sodium 137 potassium 3.6 chloride 98 bicarb 30 BUN 2020 creatinine 1.22 and A1c level 8.5 Pulmonary and cardiology is on board. 05/27/2023 Patient is sitting in the bed. Awake alert and orient x 3. On 3 L oxygen via nasal cannula. No complaints of chest pain. Shortness of breath is much improved. Patient is s/p right thoracentesis with 2 L fluid removal. Repeat chest x-ray showed status post right thoracentesis without evidence for pneumothorax. There remains moderate right pleural effusion. Patient was continued on IV diuretics and currently changed to by mouth. Patient has been afebrile. Laboratory data showed WBC 9.0 hemoglobin 10.4 and platelets 311 Sodium 140 potassium 3.4 chloride 99 bicarb 31 BUN 28 and creatinine increased to 1.43 and blood sugar is 149. Family is at bedside and patient's status has been updated. 05/28/2023 Patient is currently sitting in the bed. Awake alert and oriented. No complaints of chest pain. Still complains of shortness of breath but improvin g.. No cough or sputum production. No nausea vomiting abdominal pain or diarrhea. Patient is being continued on oral diuretics. Laboratory data showed a sodium 139 potassium 4.4 chloride 102 bicarb is 28 BUN 29 and creatinine 1.35 and blood sugar 144. Pulmonary and cardiology is on board. Anticipate discharge to home with home PT in the next 24 hours. Current medications reviewed. Objective - Vital Signs Vital signs: Vital Signs Temp 98.4 F 05/28/23 20:00 Pulse 80 05/28/23 21:10 Resp 16 05/28/23 20:00 BP 144/94 05/28/23 20:00 Pulse Ox 97 05/28/23 20:00 FiO2 Intake & Output 05/28/23 05/28/23 05/29/23 06:59 18:59 06:59 Intake Total 590 Output Total 400 1200 Balance 190 -1200 Intake: Oral 590 Output: Urine 400 1200 Other: Voiding Method External Catheter External Catheter # Bowel Movements 1 - Exam PHYSICAL EXAMINATION: Patient is sitting on the side of the bed. Agitated and distressed., awake a lert and oriented.. HEENT: Normocephalic. Neck is supple. Pupils reactive. Nostrils clear. Oral cav ity is moist. Neck reveals no JVD, carotid bruits, or thyromegaly. CHEST EXAMINATION: Trachea is central. Symmetrical expansion. Right basilar crackles... No wheezing or rhonchi. Nonlabored breathing. CARDIAC: Normal S1, S2 with no gallops. No murmurs ABDOMEN: Soft. Bowel sounds normal. No organomegaly. No abdominal bruits. Extremities: Bilateral BKA. No clubbing or cyanosis Neurologically awake, alert, oriented x 2-3 able to move upper extremities.. No gross focal deficits noted Skin: No rash or skin lesions. Psychiatric: Noncooperative, could not be assessed completely. Musculoskeletal: No joint swelling or deformity. - Labs CBC & Chem 7: 05/27/23 08:18 05/28/23 04:40 Labs: Abnormal Lab Results - Last 24 Hours (Table) 05/28/23 05/28/23 05/28/23 Range/Units 04:40 07:21 11:56 BUN 29 H (9-20) mg/dL Creatinine 1.35 H (0.66-1.25) mg/dL Glucose 144 H (74-99) mg/dL POC Glucose (mg/dL) 151 H 188 H (70-110) mg/dL 05/28/23 05/28/23 Range/Units 17:22 20:05 BUN (9-20) mg/dL Creatinine (0.66-1.25) mg/dL Glucose (74-99) mg/dL POC Glucose (mg/dL) 210 H 206 H (70-110) mg/dL Microbiology - Last 24 Hours (Table) 05/26/23 11:00 Gram Stain - Preliminary Pleural Fluid Body Fluid Culture - Preliminary 05/26/23 11:00 Acid Fast Bacilli Smear - Preliminary Pleural Fluid Assessment and Plan Assessment: Acute on chronic hypoxemic respiratory failure due to CHF and large right-sided pleural effusion and trace left sided pleural effusion. S/p right thoracentesis on 05/26/2023 with 2 L removal. On 3 L oxygen via nasal cannula. Acute on chronic CHF with diastolic dysfunction Elevated troponin level possible type II [place] Coronary artery history of stent placement to RCA and LAD in 2022 Paroxysmal atrial fibrillation on anticoagulation with Eliquis at home Peripheral vascular disease with history of bilateral BKA COPD not in exacerbation Diabetes type 2 insulin-dependent Peripheral neuropathy diabetic Hypertension uncontrolled Hyperlipidemia Prior history of smoking Anxiety/depression GERD DVT prophylaxis patient is already on Eliquis GI prophylaxis on Pepcid Plan: Patient was continued on IV Lasix 40 mg twice daily. Changed to Lasix p.o. twice daily. Continue with telemetry.. Continue with oxygen supplementation 3 liters nasal cannula.. Patient was started back on aspirin, Plavix and lisinopril. Continue the trazodone and Lexapro. s/p rt thoracentesis. Pt. has not been taking Eliquis at home due to high co- pay. Social work is following for possible changing to Xarelto. Continued pain management and follow-up closely. Prognosis guarded with multiple medical problems and comorbid conditions. Time with Patient: Greater than 30
[2023-05-29 07:11] LABS: Glucose,Whole Blood 188 mg/dL (70-110)
[2023-05-29 08:35] VITALS: TEMP 98
[2023-05-29 09:11] VITALS: BMI 52.0
--- NOTE | 2023-05-29 11:06 | P.PN ---
Subjective Progress Note Date: 05/29/23 I am seeing this patient in new consultation today 05/25/2023 in the emergency room after he presented with worsening acute on chronic shortness of breath over the last 24 hours. He was noted to have a moderate to large size right-sided pleural effusion on his admission chest x-ray, and for this reason we were consulted. Patient is a 72-year-old white male with past medical history significant for Diabetes mellitus, hypertension, hyperlipidemia, bilateral [id number] amputation, former tobacco smoker, COPD, atrial fibrillation (anticoagulated on Eliquis), and coronary artery disease with previous PCI/stents. Patient had a admission for congestive heart failure November,. He was noted to have bilateral pleural effusions at that time, he was diuresed, and discharged home. Patient returned to the emergency room late last night complaining of progressively worsening acute on chronic shortness of breath over the last 24 hours. He is chronically oxygen dependent on 5 L/min nasal cannula at home. He is currently sitting up in bed, on 5 L/min nasal cannula, and he is dyspneic at rest. He speaks in phrases. SpO2 97%. Chest x- ray on arrival shows cardiomegaly with a moderate to large size right pleural effusion with associated right basilar atelectasis and possible left trace pleural effusion. He denies ever having a thoracentesis in the past. He does take Lasix twice a day at home. He states that he has not been peeing as much as normal. No other urinary complaints. Denies any chest pain. He does endorse orthopnea. NT proBNP on arrival was 5750. Most recent available echocardiogram, was done 10/26/22, showing a preserved left ventricular ejection fraction estimated at 55 to 60%. There was also mild mitral regurgitation and mild aortic regurgitation. He denies any change in his chronic cough. Occasional clear sputum production. Denies any fevers. Negative for influenza, RSV, COVID. The patient was also concerned about constipation for the last 3 days, which resolved yesterday after his daughter gave him a combination of stool softeners and other medications. He does report some associated nausea, denies any emesis. Denies any diarrhea since yesterday. Denies any abdominal pain. CBC on arrival: WBC count 12.5, hemoglobin 9.9, hematocrit 29.2, platelets 307. Coagulation profile WDL. BMP on arrival: Sodium 137, potassium 3.2, chloride 99, serum bicarb 34, BUN 22, creatinine 1.18, glucose 151. LFTs not elevated. Initial Troponin was elevated at 0.057. EKG done on arrival shows an accelerated junctional rhythm with similar QRS morphology to baseline. No obvious acute ischemic changes. Currently afebrile. Vital signs are stable. Progress note dated May 26, 2023. The patient is seen today in room 378. He continues on oxygen, at 2 L. He is not receiving any IV fluids. Today, we did a right-sided thoracentesis on the patient. 2 L of bloody fluid was removed from the right pleural space. It was sent for cytology, chemistry, and microbiology. The patient tolerated the procedure well. The post-thoracentesis chest x-ray revealed some residual right-sided effusion. White count is 8.7, hemoglobin 10.4, hematocrit 30.8, p latelet count 362,000. Sodium 137, potassium 3.6, chloride 99, CO2 30, BUN 22, creatinine 1.22. Glucose is 137. Calcium 8.6. Chest x-ray showed a large right-sided pleural effusion. It was confirmed on ultrasound. Progress note dated May 27, 2023. 72-year-old male who was seen today in room 378. The patient is currently on 3 L of oxygen. He had a high-volume thoracentesis done yesterday, on the right side. 2 L of bloody fluid was removed. The patient is improved. The patient will have a follow-up chest x-ray tomorrow. He is not receiving any IV fluids. Current laboratory data includes a white count 9, hemoglobin 10.4, hematocrit 31.5, and a platelet count of 311,000. Sodium 140, potassium 3.4, chlorides 99, CO2 31, BUN 28, and creatinine 1.43. Glucose is 149. The patient is seen today May 28, 2023 in follow-up on the regular medical floor. He is awake and alert in no acute distress. Currently sitting up in bed. He denies any worsening shortness of breath, cough or congestion. He is breathing easier today compared to yesterday. He is maintaining O2 saturations in the 90s on 3 L/min per nasal cannula. Pleural fluid cultures revealed no growth. Sodium 139. Potassium 4.4. Bicarb 28. BUN 29. Creatinine 1.35. Glucose 144. He remains on oral diuretics. Currently in a negative balance. Eliquis has been resumed. Follow-up chest x-ray is pending. The patient is seen today May 29, 2023 in follow-up on the regular medical floor. He is currently resting in bed. Awake and alert in no acute distress. Denies any worsening shortness of breath, cough or congestion. He is maintaining good O2 saturations in the 90s on room air. He has been afebrile. Hemodynamically stable. X-ray reveals a small to moderate right-sided pleural effusion with cardiomegaly similar to previous. Pleural fluid cytology still pending. Fluid was exudate with the serum protein of 3.6. He remains on bronchodilators. Anticoagulated with Eliquis. Remains on oral diuretics. Objective - Vital Signs Vital signs: Vital Signs Temp 98.0 F 05/29/23 07:12 Pulse 80 05/29/23 07:34 Resp 20 05/29/23 07:12 BP 134/72 05/29/23 07:12 Pulse Ox 94 L 05/29/23 07:12 FiO2 Intake & Output 05/28/23 05/29/23 05/29/23 18:59 06:59 18:59 Intake Total 590 Output Total 1200 600 Balance -1200 -10 Weight 90.718 kg Intake: Oral 590 Output: Urine 1200 600 Other: Voiding Method External Catheter External Catheter # Bowel Movements 1 - Exam GENERAL EXAM: Alert, pleasant 72-year-old male, resting comfortably in bed, on 3 L nasal cannula, in no apparent distress. HEAD: Normocephalic. EYES: Normal reaction of pupils, equal size. NOSE: Clear with pink turbinates. THROAT: No erythema or exudates. NECK: No masses, no JVD. CHEST: No chest wall deformity. LUNGS: Equal air entry with crackles in the right base. Diminished. CVS: S1 and S2 normal with no audible murmur, regular rhythm. ABDOMEN: No hepatosplenomegaly, normal bowel sounds, no guarding or rigidity. SPINE: No scoliosis or deformity SKIN: No rashes CENTRAL NERVOUS SYSTEM: No focal deficits, tone is normal in all 4 extremities. EXTREMITIES: Bilateral [id number] amputee. - Labs CBC & Chem 7: 05/27/23 08:18 05/28/23 04:40 Labs: Abnormal Lab Results - Last 24 Hours (Table) 05/28/23 05/28/23 05/28/23 Range/Units 11:56 17:22 20:05 POC Glucose (mg/dL) 188 H 210 H 206 H (70-110) mg/dL 05/29/23 Range/Units 07:10 POC Glucose (mg/dL) 188 H (70-110) mg/dL Microbiology - Last 24 Hours (Table) 05/26/23 11:00 Gram Stain - Preliminary Pleural Fluid Body Fluid Culture - Preliminary Assessment and Plan Assessment: Acute on chronic hypoxemic respiratory failure, secondary to suspected acute exacerbation of diastolic congestive heart failure Right-sided pleural effusion secondary to above status post thoracentesis on 05/26/2023, cytology pending Elevated troponins, rule out non-ST elevation [place] Coronary artery disease, with history of previous PCI/stents to the RCA and LAD, most recent intervention done 10/17/22 Peripheral vascular disease, with history of bilateral brern-jui-yuou amputations Former tobacco dependence Chronic obstructive pulmonary disease, stable Chronic hypoxemic respiratory failure, normally maintained on 5 L/min nasal ca nnula History of atrial fibrillation, anticoagulated on Eliquis Anemia of chronic disease Diabetes mellitus type 2, insulin-dependent Hypertension Hyperlipidemia Morbid obesity, with a BMI of 52 kg/m Plan: The patient was seen and evaluated Labs and medications reviewed Continue the current treatment plan Cleared for discharge from the pulmonary standpoint Plan is home with home care and visiting physicians at discharge I have personally seen and examined the patient, performed the documentation and the assessment and plan as written. Number of minutes spent on the visit: 10.
[2023-05-29 12:15] LABS: Glucose,Whole Blood 137 mg/dL (70-110)
--- NOTE | 2023-05-29 12:53 | P.PN ---
Subjective HISTORY OF PRESENT ILLNESS: This is a 72-year-old male patient of Dr. Starks (has not followed up in the office since 2014) with past medical history of coronary artery disease with previous stents to the RCA and LAD, hypertension, dyslipidemia, diabetes, paroxysmal atrial fibrillation, chronic diastolic heart failure, severe peripheral vascular disease with bilateral [id number] amputations, COPD, chronic hypoxic respiratory failure on home O2, chronic kidney disease, remote history of tobacco use. We have been asked to evaluate the patient for CHF. Patient does not know why he is here. But he does deny chest pain. No dizziness. No palpitations. No cough or wheezing. He complains of diarrhea apparently occurred following stool softeners.. Patient is seen today in the emergency center waiting for a bed on the cardiac stepdown unit. Patient is status post IV Lasix 40 mg x 1 and maintained on IV Lasix 40 mg every [address] with pulmonary medicine with plan for thoracentesis, Eliquis is on hold. EKG junctional rhythm with ventricular rate of 79 bpm, Chest x-ray: Cardiomegaly with moderate to large size right pleural effusion with associated right basilar atelectasis. WBC 12.5, hemoglobin 9.9, platelet count 307. INR 1. Sodium 137, potassium 3.2, chloride 99, CO2 34, BUN 22 creatinine 1.18. Blood sugar 151. Calcium 8.7, magnesium 2. Liver function test are normal. proBNP 5750. Troponin 0.057 and 0.065. Influenza A, influenza B, RSV, COVID-19 not detected. Home cardiac medications: Eliquis 5 mg twice daily, atorvastatin 80 mg daily, Plavix 75 mg daily, Farxiga 10 mg daily, Lasix 80 mg in the morning and 40 mg at 4 PM, magnesium oxide 400 mg daily, Procardia XL 90 mg daily, Nitrostat as needed. Echocardiogram performed 10/26/2022 revealed EF 55 to 60%, severe mitral annular calcification and mild mitral regurgitation, mild aortic regurgitation. Cardiac catheterization 10/17/2022 successful stenting of the mid LAD with JEFFERY. Cardiac catheterization performed at [facility] 09/2022 that revealed critical disease in the involving the heavily calcified right as well as severe disease involving the mid LAD. PCI performed at [facility] 09/30/2022 distal RCA stent, mid RCA stent. 05/25 Patient is seen today on the cardiac stepdown unit. He states that he is just n ow starting to catch his breath. He may have thoracentesis today with pulmonary medicine. He has been continued on IV Lasix 40 mg every 12 hours. Cardiology received call yesterday afternoon about high blood pressure and nitro paste and lisinopril added. Blood pressure remains high at 183/74, heart rate 73, pulse ox 98% on 3 L nasal cannula. Repeat blood work reveals hemoglobin 10.4. BUN 22 creatinine 1.22. Echocardiogram reveals EF of 40 to 45%, mitral annular calcification and aortic sclerosis. 05/26 Yesterday, patient underwent thoracentesis with pulmonary medicine on the right side with removal of 2 L of bloody fluid. Patient states that his breathing is improved today from yesterday. He denies having any chest pain. He states he has a little cough. Repeat chest x-ray reveals status post right thoracentesis without evidence of pneumothorax. There remains moderate right pleural effusion. Blood pressure 165/71, heart rate 56, pulse ox 99% on 3 L nasal cannula. Repeat blood work reveals WBC 9, hemoglobin 10.4, platelet count 311. Sodium 140, potassium 3.4 and was replaced, CO2 31, BUN 28 creatinine 1.43. 05/28/2023 Patient examined this morning at the bedside. Patient currently denies chest pain or pressure. He denies shortness of breath. He is sitting up in the bed eating breakfast and appears to be in no acute distress. Vital signs are stable. He remains on oral diuretics. 05/29/2023 Patient examined this morning at bedside. Patient denies chest pain or pressure. He denies shortness of breath. Chest x-ray obtained yesterday revealed small to moderate pleural effusion. Patient remains on oral diuretics. PHYSICAL EXAM: VITAL SIGNS: Reviewed. GENERAL: Well-developed in no acute distress. NECK: Supple. No JVD or thyromegaly LUNGS: Respirations even and unlabored. Lungs diminished, right more than left with a few crackles at the right lung base. HEART: Regular rate and rhythm. S1 and S2 heard. EXTREMITIES: Normal range of motion. No clubbing or cyanosis. Bilateral [id number] amputations. ASSESSMENT: Large right pleural effusion, status post thoracentesis Acute hypoxic respiratory failure secondary to acute diastolic heart failure and large right pleural effusion Elevated troponin, likely type II RI Paroxysmal atrial fibrillation Coronary artery disease with previous stent to the LAD 10/17/2022, RCA stentx2 09/30/2022 Severe peripheral vascular disease status post bilateral [id number] amputations COPD Diabetes Hypertension Hyperlipidemia Remote history of tobacco use PLAN: Continue current cardiac medications Patient is currently stable from a cardiac perspective We will sign off. Please reconsult if needed. Nurse practitioner note has been reviewed by physician. Signing provider agrees with the documented findings, assessment, and plan of care documented by BLEACH CHLORINATOR as a scribe. Objective - Vital Signs Vital signs: Vital Signs Temp 98.0 F 05/29/23 07:12 Pulse 76 05/29/23 11:33 Resp 20 05/29/23 07:12 BP 134/72 05/29/23 07:12 Pulse Ox 94 L 05/29/23 07:12 FiO2 Intake & Output 05/28/23 05/29/23 05/29/23 18:59 06:59 18:59 Intake Total 590 Output Total 1200 600 Balance -1200 -10 Weight 90.718 kg Intake: Oral 590 Output: Urine 1200 600 Other: Voiding Method External Catheter External Catheter External Catheter # Bowel Movements 1 - Labs CBC & Chem 7: 05/27/23 08:18 05/28/23 04:40 Labs: Abnormal Lab Results - Last 24 Hours (Table) 05/28/23 05/28/23 05/29/23 Range/Units 17:22 20:05 07:10 POC Glucose (mg/dL) 210 H 206 H 188 H (70-110) mg/dL 05/29/23 Range/Units 12:13 POC Glucose (mg/dL) 137 H (70-110) mg/dL Microbiology - Last 24 Hours (Table) 05/26/23 11:00 Gram Stain - Preliminary Pleural Fluid Body Fluid Culture - Preliminary
[2023-05-29 13:10] VITALS: BP 136/69; PULSE 84; RESP 21
[2023-05-29 17:17] LABS: Glucose,Whole Blood 252 mg/dL (70-110)
== END 2023-05-29 20:08 | disposition home health service (06) | DRG 280 ==
LOC: EC 21:25 → 3SCARD 23:36 → 5NMEDONC 05-28 00:07
PROVIDERS: ADMIT Hospitalist; ATTEND Hospitalist
PROC: 0W993ZX Drainage of Right Pleural Cavity, Percutaneous Approach, Diagnostic (ICD-10-PCS; principal; 2023-05-26)
DX: I11.0 Hypertensive heart disease with heart failure (principal); I21.A1 Myocardial infarction type 2; I50.33 Acute on chronic diastolic (congestive) heart failure; Z68.43 Body mass index [BMI] 50.0-59.9, adult; J90 Pleural effusion, not elsewhere classified; I08.0 Rheumatic disorders of both mitral and aortic valves; F41.9 Anxiety disorder, unspecified; D63.8 Anemia in other chronic diseases classified elsewhere; E11.42 Type 2 diabetes mellitus with diabetic polyneuropathy; E11.51 Type 2 diabetes mellitus with diabetic peripheral angiopathy without gangrene; E66.01 Morbid (severe) obesity due to excess calories; J44.9 Chronic obstructive pulmonary disease, unspecified; E78.5 Hyperlipidemia, unspecified; F32.A Depression, unspecified; I25.10 Atherosclerotic heart disease of native coronary artery without angina pectoris; M19.042 Primary osteoarthritis, left hand; M19.041 Primary osteoarthritis, right hand; I48.0 Paroxysmal atrial fibrillation; I87.8 Other specified disorders of veins; K21.9 Gastro-esophageal reflux disease without esophagitis; Z99.81 Dependence on supplemental oxygen; Z89.612 Acquired absence of left leg above knee; Z89.611 Acquired absence of right leg above knee; Z11.52 Encounter for screening for COVID-19; Z89.412 Acquired absence of left great toe; Z89.411 Acquired absence of right great toe; Z89.422 Acquired absence of other left toe(s); Z86.14 Personal history of Methicillin resistant Staphylococcus aureus infection; Z79.4 Long term (current) use of insulin; Z79.02 Long term (current) use of antithrombotics/antiplatelets; Z79.51 Long term (current) use of inhaled steroids; K59.00 Constipation, unspecified
CPT/HCPCS: 36415; 71045; 76604; 80048; 80053; 82945; 83036; 83615; 83735; 83880; 84132; 84157; 84484; 85025; 85610; 85730; 87070; 87102; 87116; 87205; 87206; 87496; 87498; 87502; 87529; 87634; 87635; 87636; 87798; 88108; 88305; 89050; 93005; 93306; 94640; 94760; 96372; 96374; 96375; 96376; 99285

== ENCOUNTER 2023-06-25 13:43 | Inpatient (IN) | payer MEDICARE ==
[2023-06-25] MEDS: SODIUM CHLORIDE 0.9% 1,000 ML IV ONE ×3 (13:55→16:23)
--- NOTE | 2023-06-25 13:57 | ED ---
Altered Mental Status HPI - General Chief Complaint: Altered Mental Status Stated Complaint: ams Time Seen by Provider: 06/25/23 13:49 Source: EMS Mode of arrival: EMS Limitations: altered mental status - History of Present Illness Initial Comments: 72-year-old male with past medical history of diabetes, dementia who presents to the emergency department for altered mental status. The patient went to respite care this past weekend. When he returned home and the patient was not his normal self. It was reported that the patient had a fall with possible head injury however was never sent in for evaluation. Patient has not been eating or drinking much. He has low urine output. Patient does have Davidson catheter in place. Patient is alert and oriented x 2. Patient arrives hypotensive. No reported fevers. He does have some bruising noted to his lower abdomen. No signs of head injury appreciated. Patient denies any pain. He does wear 2-4 L of oxygen at all times. No other alleviating, precipitating modifying factors - Related Data Home Medications Medication Instructions Recorded Confirmed traZODone HCL 50 mg PO HS 11/09/17 06/25/23 Acetaminophen [Tylenol Arthritis] 650 mg PO Q6H PRN 09/29/22 06/25/23 Budesonide [Pulmicort] 0.5 mg INHALATION RT-BID 09/29/22 06/25/23 Cholecalciferol [Vitamin D3 (25 25 mcg PO DAILY 09/29/22 06/25/23 Mcg = 1000 Iu)] Famotidine [Pepcid] 20 mg PO BID 09/29/22 06/25/23 Tamsulosin [Flomax] 0.4 mg PO DAILY 09/29/22 06/25/23 Escitalopram [Lexapro] 20 mg PO DAILY 05/25/23 06/25/23 Furosemide [Lasix] 40 mg PO DAILY@1600 05/25/23 06/25/23 Insulin Glargine,Hum.rec.anlog 20 units SQ BID 05/25/23 06/25/23 [Lantus Solostar Pen] Insulin Lispro [humaLOG Kwikpen] See Protocol SQ ACHS 05/25/23 06/25/23 Ipratropium-Albuterol Nebulize 3 ml INHALATION RT-QID 05/25/23 06/25/23 [Duoneb 0.5 mg-3 mg/3 ml Soln] Nitroglycerin Sl Tabs [Nitrostat] 0.4 mg SL Q5M PRN 05/25/23 06/25/23 Acetaminophen Suppository [Tylenol 650 mg RECTAL Q4H PRN 06/25/23 06/25/23 Suppository] Haloperidol Oral Soln [Haldol Oral 0.5 - 1 mg PO Q4H PRN 06/25/23 06/25/23 Soln] Hyoscyamine Sulfate [Levsin-Sl] 0.125 mg SL Q4H PRN 06/25/23 06/25/23 LORazepam [Ativan] 0.5 - 1 mg PO Q4H PRN 06/25/23 06/25/23 MORPHINE ORAL JUSTYNA CONC 20mg/mL 5 - 20 mg PO Q4HR PRN 06/25/23 06/25/23 [Roxanol Oral Soln Conc 20MG/ML] Prochlorperazine Suppository 25 mg RECTAL Q12H PRN 06/25/23 06/25/23 [Compazine] Sennosides/Docusate Sodium 1 tab PO BID PRN 06/25/23 06/25/23 [Senna-S 8.6-50 mg Tablet] bisacodyL [Dulcolax] 10 mg RECTAL Q72H PRN 06/25/23 06/25/23 Previous Rx's Medication Instructions Recorded Clopidogrel [Plavix] 75 mg PO DAILY #30 tab 10/01/22 HYDROcodone/APAP 5-325MG [[place] 1 tab PO Q6HR PRN 3 Days #12 tab 10/01/22 5-325] Dapagliflozin Propanediol [Farxiga] 10 mg PO DAILY #30 tab 10/20/22 Ipratropium-Albuterol Nebulize 3 ml INHALATION RT-Q2H PRN each 11/03/22 [Duoneb 0.5 mg-3 mg/3 ml Soln] Apixaban [Eliquis] 5 mg PO BID 30 Days #30 tab 12/10/22 Furosemide [Lasix] 80 mg PO DAILY 30 Days #30 tab 12/10/22 lisinopriL [Zestril] 10 mg PO BID 30 Days #30 tab 05/29/23 Allergies Allergy/AdvReac Type Severity Reaction Status Date / Time No Known Allergies Allergy Verified 06/25/23 15:50 Review of Systems ROS Statement: Those systems with pertinent positive or pertinent negative responses have been documented in the HPI. ROS Other: All systems not noted in ROS Statement are negative. 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 Date of last positivie culture/infection: 10/28/22 MDRO Source:: Blood Past Surgical History: Heart Catheterization Additional Past Surgical History / Comment(s): bilateral great toes amputated, 2nd toe lt foot partial amputation, multiple debridements of venous ulcers, colonoscopy, surgery as a child for undescended testicle., ABOVE THE KNEE AMPUTATION RIGHT LEG (JUNE 2017-[facility]) Past Anesthesia/Blood Transfusion Reactions: No Reported Reaction Date of Last Stent Placement:: 10/17/2022 Past Psychological History: Anxiety, Depression Smoking Status: Former smoker - Past Family History Father Family Medical History: Cancer Additional Family Medical History / Comment(s): Father from brain cancer Mother Family Medical History: Eye Disorder Additional Family Medical History / Comment(s): Glaucoma. Mother is . General Exam Limitations: altered mental status General appearance: lethargic Head exam: Present: atraumatic, normocephalic, normal inspection Eye exam: Present: normal appearance, PERRL, EOMI. Absent: scleral icterus, conjunctival injection, periorbital swelling ENT exam: Present: mucous membranes dry Respiratory exam: Present: decreased breath sounds (Right base) Cardiovascular Exam: Present: regular rate, normal rhythm, normal heart sounds. Absent: systolic murmur, diastolic murmur, rubs, gallop, clicks GI/Abdominal exam: Present: soft, normal bowel sounds. Absent: distended, tenderness, guarding, rebound, rigid Extremities exam: Present: other (Bilateral AKA's) Back exam: Present: other (Mild sacral breakdown skin) Neurological exam: Present: altered Psychiatric exam: Present: flat affect Skin exam: Present: warm, dry Course Vital Signs 06/25/23 06/25/23 06/25/23 13:45 14:03 14:50 Temperature 98.1 F Pulse Rate 80 80 77 Respiratory 22 22 16 Rate Blood Pressure 82/44 85/51 111/47 O2 Sat by Pulse 100 100 99 Oximetry 06/25/23 06/25/23 06/25/23 15:05 15:15 15:46 Temperature Pulse Rate 77 77 76 Respiratory 20 14 20 Rate Blood Pressure 76/39 74/38 84/66 O2 Sat by Pulse 97 100 100 Oximetry 06/25/23 06/25/23 06/25/23 16:00 16:27 16:31 Temperature 97.8 F Pulse Rate 74 75 75 Respiratory 16 16 14 Rate Blood Pressure 71/55 90/43 83/54 O2 Sat by Pulse 99 99 99 Oximetry 06/25/23 06/25/23 06/25/23 17:00 17:15 17:33 Temperature 98.0 F Pulse Rate 73 77 76 Respiratory 16 20 16 Rate Blood Pressure 92/48 125/48 114/54 O2 Sat by Pulse 99 98 95 Oximetry 06/25/23 06/25/23 06/25/23 17:46 18:00 18:15 Temperature 97.6 F Pulse Rate 76 76 76 Respiratory 17 16 18 Rate Blood Pressure 125/59 114/40 117/80 O2 Sat by Pulse 97 98 96 Oximetry 06/25/23 06/25/23 06/25/23 18:40 18:45 19:45 Temperature Pulse Rate 77 76 77 Respiratory 19 16 18 Rate Blood Pressure 107/47 106/40 122/48 O2 Sat by Pulse 96 96 97 Oximetry 06/25/23 06/25/23 20:00 20:19 Temperature 96.5 F L Pulse Rate 77 78 Respiratory 18 18 Rate Blood Pressure 85/64 86/59 O2 Sat by Pulse 98 89 L Oximetry - Reevaluation(s) Reevaluation #1: 06/25/23 16:[address] Paulino who is agreeable to take the patient to the ICU. He is present in the emergency department and evaluates the patient Medical Decision Making - Medical Decision Making Was pt. sent in by a medical professional or institution (, PA, LAPPING MACHINE TENDER, urgent care, hospital, or care home...) When possible be specific @ -No Did you speak to anyone other than the patient for history (EMS, parent, family, police, friend...)? What history was obtained from this source @ -Spoke with EMS and the daughter for history Did you review nursing and triage notes (agree or disagree)? Why? @ -I reviewed and agree with nursing and triage notes Were old charts reviewed (outside hosp., previous admission, EMS record, old EKG, old radiological studies, urgent care reports/EKG's, care home records)? Report findings @ -I reviewed patient's recent hospitalization discharge summary where he was hospitalized for CHF Differential Diagnosis (chest pain, altered mental status, abdominal pain women, abdominal pain men, vaginal bleeding, weakness, fever, dyspnea, syncope, headache, dizziness, GI bleed, back pain, seizure, CVA, palpatations, mental health, musculoskeletal)? @ -Differential Altered Mental Status: Hypoglycemia, DKA, hypercapnia, ETOH, overdose, CO poisoning, trauma, myxedema coma, HTN encephalopathy, infection, encephalitis, psychosis, intercranial hemorrhage, hepatic encephalopathy, meningitis, CVA, this is not meant to be an all-inclusive list EKG interpreted by me (3pts min.). @ -Yes and demonstrates sinus rhythm with a rate of 79. PA interval 153. QRS 135. QTc of 438. Peaked T waves V2V3. No ST segment elevation X-rays interpreted by me (1pt min.). @ -Yes and demonstrates continued pleural effusion on the right CT interpreted by me (1pt min.). @ -Yes and demonstrates no acute intracranial process U/S interpreted by me (1pt. min.). @ -None done What testing was considered but not performed or refused? (CT, X-rays, U/S, labs)? Why? @ -None What meds were considered but not given or refused? Why? @ -None Did you discuss the management of the patient with other professionals (professionals i.e. , PA, LAPPING MACHINE TENDER, lab, RT, psych nurse, social worker delinquency prevention, reeling operator, teacher, security flex officer, foster care case manager)? Give summary @ -Spoke with Dr. Paulino and Dr. Huff. Dr. Ramirez was agreeable to taking the patient to the ICU due to his hypotension Was smoking cessation discussed for >3mins.? @ -No Was critical care preformed (if so, how long)? @ -Yes, 35 minutes for management of hypotension and vasopressors Were there social determinants of health that impacted care today? How? (Homelessness, low income, unemployed, alcoholism, drug addiction, transportation, low edu. Level, literacy, decrease access to med. care, care home, rehab)? @ -No Was there de-escalation of care discussed even if they declined (Discuss DNR or withdrawal of care, Hospice)? DNR status @ -Yes and the patient's daughter wants the patient to remain a full code What co-morbidities impacted this encounter? (DM, HTN, Smoking, COPD, CAD, Cancer, CVA, ARF, Chemo, Hep., AIDS, mental health diagnosis, sleep apnea, morbid obesity)? @ -Dementia, diabetes, chronic urinary retention Was patient admitted / discharged? Hospital course, mention meds given and route, prescriptions, significant lab abnormalities, going to OR and other pertinent info. @ -Upon arrival patient was placed in trauma 2. Thorough history was obtained from EMS. Patient cannot provide much history and therefore we did contact the patient's daughter. IV had been established. Patient was given 2 L bolus normal saline due to his hypotension. Laboratory studies are conducted. CT was performed the patient's brain. Chest x-ray was also performed. Patient does have marked decline in his kidney function. This is suspected due to dehydration due to elevated BUN therefore patient did receive the IV fluids. He does have a known history of CHF with a right-sided pleural effusion and therefore Levophed is started after 2 L in an attempt to not overload the patient. Urine is grossly infected and therefore he was given 1 mg of Rocephin. Due to persistent hypotension I did speak with Dr. Paulino who was present in the emergency department. He was agreeable to admitting the patient to the ICU. I did speak with the patient's daughter who would like to keep him a full code. He will be admitted to Dr. Lewis agreeable to admission Undiagnosed new problem with uncertain prognosis? @ -Yes Drug Therapy requiring intensive monitoring for toxicity (Heparin, Nitro, Insulin, Cardizem)? @ -Levophed Were any procedures done? @ -No Diagnosis/symptom? @ -Acute encephalopathy, acute hypotension, AMY, acute UTI, chronic urinary retention with Davidson placement, chronic right pleural effusion Acute, or Chronic, or Acute on Chronic? @ -Acute Uncomplicated (without systemic symptoms) or Complicated (systemic symptoms)? @ -Complicated Side effects of treatment? @ -No Exacerbation, Progression, or Severe Exacerbation? @ -No Poses a threat to life or bodily function? How? (Chest pain, [place], [place], pneumonia, PE, COPD, DKA, ARF, appy, cholecystitis, CVA, Diverticulitis, Homicidal, Suicidal, threat to staff... and all critical care pts) @ -Yes as patient is requiring vasopressors - Lab Data Result diagrams: 06/25/23 13:54 06/25/23 13:54 Lab Results 06/25/23 06/25/23 06/25/23 Range/Units 13:54 13:54 13:54 WBC 15.6 H (3.8-10.6) k/uL RBC 3.68 L (4.30-5.90) m/uL Hgb 10.3 L (13.0-17.5) gm/dL Hct 32.2 L (39.0-53.0) % MCV 87.5 (80.0-100.0) fL MCH 27.9 (25.0-35.0) pg MCHC 31.9 (31.0-37.0) g/dL RDW 15.0 (11.5-15.5) % Plt Count 392 (150-450) k/uL MPV 9.1 Neutrophils % 83 % Lymphocytes % 9 % Monocytes % 5 % Eosinophils % 1 % Basophils % 0 % Neutrophils # 13.0 H (1.3-7.7) k/uL Lymphocytes # 1.4 (1.0-4.8) k/uL Monocytes # 0.7 (0-1.0) k/uL Eosinophils # 0.2 (0-0.7) k/uL Basophils # 0.1 (0-0.2) k/uL Hypochromasia Slight PT 11.8 (10.0-12.5) sec INR 1.1 (<1.2) APTT 29.4 (22.0-30.0) sec Sodium (137-145) mmol/L Potassium (3.5-5.1) mmol/L Chloride (98-107) mmol/L Carbon Dioxide (22-30) mmol/L Anion Gap mmol/L BUN (9-20) mg/dL Creatinine (0.66-1.25) mg/dL Est GFR (CKD-EPI)AfAm (>60 ml/min/1.73 sqM) Est GFR (CKD-EPI)NonAf (>60 ml/min/1.73 sqM) Glucose (74-99) mg/dL POC Glucose (mg/dL) (70-110) mg/dL POC Glu Animal Control Officer ID Calcium (8.4-10.2) mg/dL Total Bilirubin (0.2-1.3) mg/dL AST (17-59) U/L ALT (4-49) U/L Alkaline Phosphatase (38-126) U/L Ammonia (<30) umol/L Troponin I (0.000-0.034) ng/mL Total Protein (6.3-8.2) g/dL Albumin (3.5-5.0) g/dL Urine Color Colorless Urine Appearance Turbid (Clear) Urine pH 6.0 (5.0-8.0) Ur Specific [place] 1.014 (1.001-1.035) Urine Protein Trace H (Negative) Urine Glucose (UA) Negative (Negative) Urine Ketones Negative (Negative) Urine Blood Moderate H (Negative) Urine Nitrite Negative (Negative) Urine Bilirubin Negative (Negative) Urine Urobilinogen <2.0 (<2.0) mg/dL Ur Leukocyte Esterase Large H (Negative) Urine RBC >182 H (0-5) /hpf Urine WBC >182 H (0-5) /hpf Urine WBC Clumps Many H (None) /hpf Urine Bacteria Many H (None) /hpf Urine Opiates Screen Cancelled Ur Oxycodone Screen Cancelled Urine Methadone Screen Cancelled Ur Barbiturates Screen Cancelled U Tricyclic Antidepress Cancelled Ur Phencyclidine Scrn Cancelled Ur Amphetamines Screen Cancelled U Methamphetamines Scrn Cancelled U Benzodiazepines Scrn Cancelled Urine Cocaine Screen Cancelled U Marijuana (THC) Screen Cancelled Serum Alcohol mg/dL 06/25/23 06/25/23 06/25/23 Range/Units 13:54 13:54 13:54 WBC (3.8-10.6) k/uL RBC (4.30-5.90) m/uL Hgb (13.0-17.5) gm/dL Hct (39.0-53.0) % MCV (80.0-100.0) fL MCH (25.0-35.0) pg MCHC (31.0-37.0) g/dL RDW (11.5-15.5) % Plt Count (150-450) k/uL MPV Neutrophils % % Lymphocytes % % Monocytes % % Eosinophils % % Basophils % % Neutrophils # (1.3-7.7) k/uL Lymphocytes # (1.0-4.8) k/uL Monocytes # (0-1.0) k/uL Eosinophils # (0-0.7) k/uL Basophils # (0-0.2) k/uL Hypochromasia PT (10.0-12.5) sec INR (<1.2) APTT (22.0-30.0) sec Sodium 139 (137-145) mmol/L Potassium 4.7 (3.5-5.1) mmol/L Chloride 103 (98-107) mmol/L Carbon Dioxide 17 L (22-30) mmol/L Anion Gap 19 mmol/L BUN 111 H* (9-20) mg/dL Creatinine 6.55 H (0.66-1.25) mg/dL Est GFR (CKD-EPI)AfAm 9 (>60 ml/min/1.73 sqM) Est GFR (CKD-EPI)NonAf 8 (>60 ml/min/1.73 sqM) Glucose 164 H (74-99) mg/dL POC Glucose (mg/dL) (70-110) mg/dL POC Glu Animal Control Officer ID Calcium 8.9 (8.4-10.2) mg/dL Total Bilirubin 0.6 (0.2-1.3) mg/dL AST 34 (17-59) U/L ALT 15 (4-49) U/L Alkaline Phosphatase 91 (38-126) U/L Ammonia <9 (<30) umol/L Troponin I 0.095 H* (0.000-0.034) ng/mL Total Protein 7.5 (6.3-8.2) g/dL Albumin 3.9 (3.5-5.0) g/dL Urine Color Urine Appearance (Clear) Urine pH (5.0-8.0) Ur Specific [place] (1.001-1.035) Urine Protein (Negative) Urine Glucose (UA) (Negative) Urine Ketones (Negative) Urine Blood (Negative) Urine Nitrite (Negative) Urine Bilirubin (Negative) Urine Urobilinogen (<2.0) mg/dL Ur Leukocyte Esterase (Negative) Urine RBC (0-5) /hpf Urine WBC (0-5) /hpf Urine WBC Clumps (None) /hpf Urine Bacteria (None) /hpf Urine Opiates Screen Ur Oxycodone Screen Urine Methadone Screen Ur Barbiturates Screen U Tricyclic Antidepress Ur Phencyclidine Scrn Ur Amphetamines Screen U Methamphetamines Scrn U Benzodiazepines Scrn Urine Cocaine Screen U Marijuana (THC) Screen Serum Alcohol <10 mg/dL 06/25/23 Range/Units 14:01 WBC (3.8-10.6) k/uL RBC (4.30-5.90) m/uL Hgb (13.0-17.5) gm/dL Hct (39.0-53.0) % MCV (80.0-100.0) fL MCH (25.0-35.0) pg MCHC (31.0-37.0) g/dL RDW (11.5-15.5) % Plt Count (150-450) k/uL MPV Neutrophils % % Lymphocytes % % Monocytes % % Eosinophils % % Basophils % % Neutrophils # (1.3-7.7) k/uL Lymphocytes # (1.0-4.8) k/uL Monocytes # (0-1.0) k/uL Eosinophils # (0-0.7) k/uL Basophils # (0-0.2) k/uL Hypochromasia PT (10.0-12.5) sec INR (<1.2) APTT (22.0-30.0) sec Sodium (137-145) mmol/L Potassium (3.5-5.1) mmol/L Chloride (98-107) mmol/L Carbon Dioxide (22-30) mmol/L Anion Gap mmol/L BUN (9-20) mg/dL Creatinine (0.66-1.25) mg/dL Est GFR (CKD-EPI)AfAm (>60 ml/min/1.73 sqM) Est GFR (CKD-EPI)NonAf (>60 ml/min/1.73 sqM) Glucose (74-99) mg/dL POC Glucose (mg/dL) 170 H (70-110) mg/dL POC Glu Animal Control Officer ID Lunaeusebio Ashlee Calcium (8.4-10.2) mg/dL Total Bilirubin (0.2-1.3) mg/dL AST (17-59) U/L ALT (4-49) U/L Alkaline Phosphatase (38-126) U/L Ammonia (<30) umol/L Troponin I (0.000-0.034) ng/mL Total Protein (6.3-8.2) g/dL Albumin (3.5-5.0) g/dL Urine Color Urine Appearance (Clear) Urine pH (5.0-8.0) Ur Specific [place] (1.001-1.035) Urine Protein (Negative) Urine Glucose (UA) (Negative) Urine Ketones (Negative) Urine Blood (Negative) Urine Nitrite (Negative) Urine Bilirubin (Negative) Urine Urobilinogen (<2.0) mg/dL Ur Leukocyte Esterase (Negative) Urine RBC (0-5) /hpf Urine WBC (0-5) /hpf Urine WBC Clumps (None) /hpf Urine Bacteria (None) /hpf Urine Opiates Screen Ur Oxycodone Screen Urine Methadone Screen Ur Barbiturates Screen U Tricyclic Antidepress Ur Phencyclidine Scrn Ur Amphetamines Screen U Methamphetamines Scrn U Benzodiazepines Scrn Urine Cocaine Screen U Marijuana (THC) Screen Serum Alcohol mg/dL Disposition Clinical Impression: AMY (acute kidney injury), NSTEMI (non-ST elevated myocardial infarction), Hypotension Disposition: ADMITTED IP TO THIS [facility] Condition: Serious Is patient prescribed a controlled substance at d/c from ED?: No Time of Disposition: 16:41 Decision to Admit Reason: Admit from EC Decision Date: 06/25/23 Decision Time: 16:41
[2023-06-25 14:03] LABS: Glucose,Whole Blood 170 mg/dL (70-110)
[2023-06-25 14:06] LABS: Basophils # (A) 0.1 k/uL (0-0.2); Basophils % (A) 0 %; Eosinophils # (A) 0.2 k/uL (0-0.7); Eosinophils % (A) 1 %; HCT 32.2 % (39.0-53.0); HGB 10.3 gm/dL (13.0-17.5); Hypochromasia Slight; Lymphocytes # (A) 1.4 k/uL (1.0-4.8); Lymphocytes % (A) 9 %; MCH 27.9 pg (25.0-35.0); MCHC 31.9 g/dL (31.0-37.0); MCV 87.5 fL (80.0-100.0); Mean Platelet Volume 9.1; Monocytes # (A) 0.7 k/uL (0-1.0); Monocytes % (A) 5 %; Neutrophils % (A) 83 %; Platelet Count 392 k/uL (150-450); RBC 3.68 m/uL (4.30-5.90); WBC 15.6 k/uL (3.8-10.6)
[2023-06-25 14:13] LABS: INR 1.1 (<1.2); Partial Thromboplastin Time 29.4 sec (22.0-30.0); Prothrombin Time 11.8 sec (10.0-12.5)
[2023-06-25 14:16] LABS: ALT 15 U/L (4-49); AST 34 U/L (17-59); African American GFR (CKD) 9 (>60 ml/min/1.73 sqM); Albumin 3.9 g/dL (3.5-5.0); Alcohol <10 mg/dL; Alkaline Phosphatase 91 U/L (38-126); Anion Gap 19 mmol/L; Calcium 8.9 mg/dL (8.4-10.2); Carbon Dioxide 17 mmol/L (22-30); Chloride 103 mmol/L (98-107); Glucose 164 mg/dL (74-99); Non-African American GFR(CKD) 8 (>60 ml/min/1.73 sqM); Potassium 4.7 mmol/L (3.5-5.1); Sodium 139 mmol/L (137-145); Total Bilirubin 0.6 mg/dL (0.2-1.3); Total Protein 7.5 g/dL (6.3-8.2)
[2023-06-25 14:18] LABS: Blood Urea Nitrogen 111 mg/dL (9-20)
[2023-06-25 14:23] LABS: Appearance,Urine Turbid (Clear); Bacteria,Urine Many /hpf; Bilirubin,Urine Negative (Negative); Blood,Urine Moderate (Negative); Color,Urine Colorless; Glucose,Urine (UA) Negative (Negative); Ketones,Urine Negative (Negative); Leukocyte Esterase,Urine Large (Negative); Nitrite,Urine Negative (Negative); Protein,Urine Trace (Negative); RBC,Urine >182 /hpf (0-5); Specific Gravity,Urine 1.014 (1.001-1.035); Urobilinogen,Urine <2.0 mg/dL (<2.0); WBC,Urine >182 /hpf (0-5)
--- NOTE | 2023-06-25 15:24 | CT ---
EXAMINATION TYPE: CT brain sundar sood DATE OF EXAM: 06/25/2023 COMPARISON: 12/07/2022 HISTORY: FALL, AMS CT DLP: 1602.4 mGycm, Automated exposure control for dose reduction was used. CONTRAST: Patient injected with 0 mL of Isovue 300. CT of the brain is performed utilizing 3 mm thick sections through the posterior fossa and 3 mm thick sections through the remaining calvarium. Study is performed within 24 hours of arrival to the hospital. No abnormal hyperdensity is present to suggest an acute intracranial hemorrhage. No mass lesion is evident. No acute infarcts are evident. Mild periventricular white matter hypodensity is present, likely on t he basis of chronic white matter ischemic changes. Ventricles and sulci are prominent for the patient age. Paranasal sinuses and mastoid air cells within the [id number] are clear. IMPRESSIONS: 1. Atrophy with chronic appearing periventricular white matter ischemic changes CT cervical spine. COMPARISON: None CT of the cervical spine is performed in the axial plane at 2 mm thick sections. Reconstructed image s in the coronal, and sagittal plane are reviewed on the computer. No acute fractures are evident. Vertebral body alignment is normal. Disc heights are preserved. Vertebral body heights are preserved. Large anterior vertebral body spurs are present C5-6-7. Small a nterior acute by spurs are noted in the upper thoracic spine. No spinal canal stenosis is evident. No neural foraminal stenosis is evident. IMPRESSION: 1. No acute osseous abnormality cervical spine. 2. Large anterior vertebral body spurs at C5-C7.
--- NOTE | 2023-06-25 15:27 | XR ---
EXAMINATION TYPE: XR chest 2V DATE OF EXAM: 06/25/2023 COMPARISON: 05/28/2023 HISTORY: Shortness of breath TECHNIQUE: Frontal and lateral views of the chest are obtained. FINDINGS: Scattered senescent parenchymal changes noted. Hyperinflation compatible with COPD. Right basilar pleural-parenchymal opacity with small effusion persists and may be slightly improved f rom prior study however persists. Heart size is stable. Mediastinal structures are stable and grossly unremarkable. No evidence for hilar prominence. Degenerative changes dorsal spine. IMPRESSION: 1. Right basilar pleural-parenchymal opacity with small effusion persists and may be slightly improve d from prior study however persists.
[2023-06-25] MEDS: cefTRIAXone IN SWFI 1,000 MG/10 ML SYRINGE IVP STA (15:42)
[2023-06-25] MEDS: fentaNYL (PF) 50 MCG/ML 2 ML AMP IVP STA (16:24)
[2023-06-25] MEDS ORDERED: Phosphorus Replacement Protoco 1 EACH MISC MISCELLANE PRN (16:42)
[2023-06-25] MEDS ORDERED: Magnesium Replacement Protocol 1 EACH MISC MISCELLANE PRN (16:42)
[2023-06-25] MEDS ORDERED: NALOXONE 0.4 MG/ML 1 ML VIAL IV PRN (16:42)
[2023-06-25] MEDS ORDERED: Potassium Replacement Protocol 1 EACH MISC MISCELLANE PRN (16:42)
[2023-06-25] MEDS: NOREPINEPHRINE 4 MG in SODIUM CHLORIDE 0.9% 250 ML IV SCH (17:04)
[2023-06-25] MEDS: ACETAMINOPHEN IV (For NPO) 1,000 MG in SALINE 1 100ML.BAG IVPB ONE (17:31)
--- NOTE | 2023-06-25 20:39 | P.CNPUL ---
History of Present Illness Consult date: 06/25/23 Chief complaint: altered mental status History of present illness: 72-year-old female patient admitted to the intensive care because of altered m entation, acute kidney injury and hypotension. The patient came into the emergency department because of mental status change. The patient went to respite care for the past weekend. He returned home and his condition was altered. He was feeling weak and had a fall and possibly a head injury. His oral intake was quite diminished. He has a low urine output. In the emergency, the patient was found to be hypotensive. Given a total of 3 L of IV fluid and he continues to be hypotensive with a systolic blood pressure ranging between 70 and 80 and following that he was started on pressors and admitted to the intensive care unit. No nausea. No emesis. No chest pain. No focal neurological deficits. The patient was awake however alert and oriented x 2. Davidson catheter was inserted and the urine output was diminished and it was quite cloudy. UA was abnormal with many bacteria and white cells and a highly elevated white cell count. Blood work showed a white cell count of 15.6 with a hemoglobin of 10.3. The electrolytes showed a BUN of 111 with a creatinine of 6.55 and a sodium level of 139 and a potassium level of 4.7. The patient has anion gap metabolic acidosis with a gap of 19 and a serum bicarb of 17. LFTs were normal. Troponin was 0.095. Coagulation profile was within normal limits. CAT scan of the brain and cervical spine showed no acute osseous abnormality involving the cervical spine and large anterior vertebral bodies. At the level of C5/C7. The chest x-ray revealed a right basilar pleural-parenchymal opacity and right-sided pleural effusion and this has been smaller in size compared to the chest x-ray from 05/28/2023. EKG showed normal sinus rhythm with LVH criteria and old Q waves involving the inferior leads. The patient is currently in the intensive care unit. His past medical history includes peripheral vascular disease and the patient has bilateral above-knee amputation. He is known to have COPD,chronic hypoxic respiratory failure and he is on home 02 at 5 liters/min, chronic A-fib, paroxysmal and coronary artery disease with previous PCI and stenting. He is known to have also diabetes mellitus type 2, hypertension hyperlipidemia and he has history of a right-sided pleural effusion that was noted on earlier chest x-rays. Most recent echocardiogram from May 2023 showed mild impairment of systolic function with an ejection fraction of 40 to 45%.. Home medications include an JAMAR inhibitor that include Zestril. Patient also takes Flomax for symptoms of BPH. No intake of any form of nonsteroidal anti-inflammatory medication. Most recent creatinine was at 1.35 from 05/28/23. Review of Systems REVIEW OF SYSTEMS: CONSTITUTIONAL: Denies any recent significant weight loss or weight gain. EYES: Denies change in vision. EARS, NOSE, MOUTH, THROAT: Denies headaches, denies sore throat. CARDIOVASCULAR: Denies chest pain, palpitations or syncopal episodes. RESPIRATORY: Positive for shortness of breath, no cough, congestion or hemoptysis. GASTROINTESTINAL: Denies change in appetite, denies abdominal pain GENITOURINARY: Denies hematuria, denies infections. Diminished urine output. He has symptoms of BPH. Patient has been maintained on Flomax. MUSKULOSKELETAL: Denies pain, denies swelling. Nonambulatory and the patient has bilateral above-knee amputations. INTEGUMENTARY: Denies rash, denies eczema. NEUROLOGICAL: Denies recent memory loss, no recent seizure activity. He has some altered mentation underlying confusion at this point in time. Stage I sacral decub ulcer. PSYCHIATRIC: Denies anxiety, denies depression. HEMATOLOGIC/LYMPHATIC: Denies anemia, denies enlarged lymph nodes. 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 Date of last positivie culture/infection: 10/28/22 MDRO Source:: Blood Past Surgical History: Heart Catheterization Additional Past Surgical History / Comment(s): bilateral great toes amputated, 2nd toe lt foot partial amputation, multiple debridements of venous ulcers, colonoscopy, surgery as a child for undescended testicle., ABOVE THE KNEE AMPUTATION RIGHT LEG (JUNE 2017-[facility]) Past Anesthesia/Blood Transfusion Reactions: No Reported Reaction Date of Last Stent Placement:: 10/17/2022 Past Psychological History: Anxiety, Depression Smoking Status: Former smoker - Past Family History Father Family Medical History: Cancer Additional Family Medical History / Comment(s): Father from brain cancer Mother Family Medical History: Eye Disorder Additional Family Medical History / Comment(s): Glaucoma. Mother is . Medications and Allergies Home Medications Medication Instructions Recorded Confirmed Type traZODone HCL 50 mg PO HS 11/09/17 06/25/23 History Acetaminophen [Tylenol Arthritis] 650 mg PO Q6H PRN 09/29/22 06/25/23 History Budesonide [Pulmicort] 0.5 mg INHALATION RT-BID 09/29/22 06/25/23 History Cholecalciferol [Vitamin D3 (25 25 mcg PO DAILY 09/29/22 06/25/23 History Mcg = 1000 Iu)] Famotidine [Pepcid] 20 mg PO BID 09/29/22 06/25/23 History Tamsulosin [Flomax] 0.4 mg PO DAILY 09/29/22 06/25/23 History Clopidogrel [Plavix] 75 mg PO DAILY #30 tab 10/01/22 06/25/23 Rx HYDROcodone/APAP 5-325MG [Santa 1 tab PO Q6HR PRN 3 Days #12 tab 10/01/22 06/25/23 Rx 5-325] Dapagliflozin Propanediol [Farxiga] 10 mg PO DAILY #30 tab 10/20/22 06/25/23 Rx Ipratropium-Albuterol Nebulize 3 ml INHALATION RT-Q2H PRN each 11/03/22 06/25/23 Rx [Duoneb 0.5 mg-3 mg/3 ml Soln] Apixaban [Eliquis] 5 mg PO BID 30 Days #30 tab 12/10/22 06/25/23 Rx Furosemide [Lasix] 80 mg PO DAILY 30 Days #30 tab 12/10/22 06/25/23 Rx Escitalopram [Lexapro] 20 mg PO DAILY 05/25/23 06/25/23 History Furosemide [Lasix] 40 mg PO DAILY@1600 05/25/23 06/25/23 History Insulin Glargine,Hum.rec.anlog 20 units SQ BID 05/25/23 06/25/23 History [Lantus Solostar Pen] Insulin Lispro [humaLOG Kwikpen] See Protocol SQ ACHS 05/25/23 06/25/23 History Ipratropium-Albuterol Nebulize 3 ml INHALATION RT-QID 05/25/23 06/25/23 History [Duoneb 0.5 mg-3 mg/3 ml Soln] Nitroglycerin Sl Tabs [Nitrostat] 0.4 mg SL Q5M PRN 05/25/23 06/25/23 History lisinopriL [Zestril] 10 mg PO BID 30 Days #30 tab 05/29/23 06/25/23 Rx Acetaminophen Suppository [Tylenol 650 mg RECTAL Q4H PRN 06/25/23 06/25/23 History Suppository] Haloperidol Oral Soln [Haldol Oral 0.5 - 1 mg PO Q4H PRN 06/25/23 06/25/23 History Soln] Hyoscyamine Sulfate [Levsin-Sl] 0.125 mg SL Q4H PRN 06/25/23 06/25/23 History LORazepam [Ativan] 0.5 - 1 mg PO Q4H PRN 06/25/23 06/25/23 History MORPHINE ORAL JUSTYNA CONC 20mg/mL 5 - 20 mg PO Q4HR PRN 06/25/23 06/25/23 History [Roxanol Oral Soln Conc 20MG/ML] Prochlorperazine Suppository 25 mg RECTAL Q12H PRN 06/25/23 06/25/23 History [Compazine] Sennosides/Docusate Sodium 1 tab PO BID PRN 06/25/23 06/25/23 History [Senna-S 8.6-50 mg Tablet] bisacodyL [Dulcolax] 10 mg RECTAL Q72H PRN 06/25/23 06/25/23 History Allergies Allergy/AdvReac Type Severity Reaction Status Date / Time No Known Allergies Allergy Verified 06/25/23 15:50 Physical Exam Vitals: Vital Signs Temp Pulse Resp BP Pulse Ox 06/25/23 20:19 96.5 F L 78 18 86/59 89 L 06/25/23 20:00 77 18 85/64 98 06/25/23 19:45 77 18 122/48 97 06/25/23 18:45 76 16 106/40 96 06/25/23 18:40 77 19 107/47 96 06/25/23 18:15 76 18 117/80 96 06/25/23 18:00 97.6 F 76 16 114/40 98 06/25/23 17:46 76 17 125/59 97 06/25/23 17:33 76 16 114/54 95 06/25/23 17:15 77 20 125/48 98 06/25/23 17:00 98.0 F 73 16 92/48 99 06/25/23 16:31 75 14 83/54 99 06/25/23 16:27 75 16 90/43 99 06/25/23 16:00 97.8 F 74 16 71/55 99 06/25/23 15:46 76 20 84/66 100 06/25/23 15:15 77 14 74/38 100 06/25/23 15:05 77 20 76/39 97 06/25/23 14:50 77 16 111/47 99 06/25/23 14:03 80 22 85/51 100 06/25/23 13:45 98.1 F 80 22 82/44 100 Intake and Output 06/25/23 06/25/23 06/25/23 06:59 14:59 22:59 Intake Total 53.359 Output Total 160 Balance -160 53.359 Intake: Intake, IV Titration 53.359 Amount Norepinephrine 4 mg In 53.359 Sodium Chloride 0.9% 250 ml @ 0.05 MCG/KG/MIN 16. 418 mls/hr IV .[id number] [facility] Rx#:[id number] Output: Urine 160 Uretheral (Davidson) 160 Other: Weight 86.183 kg GENERAL EXAM: Alert, pleasant 72-year-old male, resting comfortably in bed, C urrently on 2 L of oxygen by nasal cannula. HEAD: Normocephalic. EYES: Normal reaction of pupils, equal size. NOSE: Clear with pink turbinates. THROAT: No erythema or exudates. NECK: No masses, no JVD. CHEST: No chest wall deformity. LUNGS: Equal air entry with crackles in the right base. Diminished breath sounds right lung base along with dullness to percussion. CVS: S1 and S2 normal with no audible murmur, regular rhythm. ABDOMEN: No hepatosplenomegaly, normal bowel sounds, no guarding or rigidity. SPINE: No scoliosis or deformity SKIN: No rashes, stage I sacral decub ulceration. CENTRAL NERVOUS SYSTEM: No focal deficits, tone is normal in all 4 extremities. Baseline confusion and alert and oriented x 1-2. EXTREMITIES: Bilateral [id number] amputee. Results - Laboratory Findings CBC and BMP: 06/25/23 13:54 06/25/23 13:54 PT/INR, D-dimer PT 11.8 sec (10.0-12.5) 06/25/23 13:54 INR 1.1 (<1.2) 06/25/23 13:54 Abnormal lab findings: Abnormal Labs 06/25/23 06/25/23 06/25/23 13:54 13:54 13:54 WBC 15.6 H RBC 3.68 L Hgb 10.3 L Hct 32.2 L Neutrophils # 13.0 H Carbon Dioxide 17 L BUN 111 H* Creatinine 6.55 H Glucose 164 H POC Glucose (mg/dL) Troponin I Urine Protein Trace H Urine Blood Moderate H Ur Leukocyte Esterase Large H Urine RBC >182 H Urine WBC >182 H Urine WBC Clumps Many H Urine Bacteria Many H 06/25/23 06/25/23 13:54 14:01 WBC RBC Hgb Hct Neutrophils # Carbon Dioxide BUN Creatinine Glucose POC Glucose (mg/dL) 170 H Troponin I 0.095 H* Urine Protein Urine Blood Ur Leukocyte Esterase Urine RBC Urine WBC Urine WBC Clumps Urine Bacteria - Diagnostic Findings Chest x-ray: image reviewed Assessment and Plan Plan: Acute on top of chronic kidney injury. Consider underlying urine tract infection/sepsis. Patient is intravascularly depleted with diminished oral intake and the patient has been taking a JAMAR inhibitor and lasix on outpatient basis. Altered mental status likely secondary to underlying sepsis/metabolic encephalopathy induced by an acute kidney injury and electrolyte disturbances. CAT scan of the brain was essentially negative for any acute process Acute hypotension, post resuscitation with a total of 3 L of IV fluids and the patient is currently on low-dose norepinephrine Acute urinary tract infection, likely underlying sepsis Chronic hypoxic respiratory failure and the patient is currently on 2 L of oxygen by nasal cannula Chronic systolic heart failure with an ejection fraction of 40 to 45% based on echocardiogram from May 2023 Right-sided pleural effusion secondary to above status post thoracentesis on 05/26/2023, exudate on the protein criteria and bloody with elevated RBC count and cytology was essentially negative for malignancy. A total of 2 L of fluid was aspirated and a previous thoracentesis was done on 05/26/2023. Chest x-ray shows recurrence of residual right-sided pleural effusion. Coronary artery disease, with history of previous PCI/stents to the RCA and LAD, most recent intervention done 10/17/22 Troponin leak likely secondary to type II ischemia Peripheral vascular disease, with history of bilateral [id number] amputations Former tobacco dependence Chronic obstructive pulmonary disease, stable Chronic hypoxemic respiratory failure, normally maintained on 2 to 3 L nasal cannula History of atrial fibrillation, anticoagulated on Eliquis, current rhythm is sinus Anemia of chronic disease Diabetes mellitus type 2, insulin-dependent Hypertension Hyperlipidemia Morbid obesity, with a BMI of 52 kg/m Stage I sacral decub ulcer Plan Oxygen 2 L/min nasal cannula Patient was given a total of 3 L of normal saline. The patient will be started on a bicarb infusion at rate of 125 cc an hour IV Rocephin given in the emergency and this will be continued Urine cultures Blood cultures Ultrasound of the kidneys to rule out hydronephrosis Nephrology consultation Davidson catheter is in place Continue norepinephrine to support patient's blood pressure. Keep the mean arterial pressure above 65 Avoid nephrotoxic agents Stop JAMAR inhibitors Will reconcile the patient's medications Admit to the ICU for further monitoring Monitor troponins Will continue to follow
[2023-06-25 20:48] LABS: Glucose,Whole Blood 254 mg/dL (70-110)
[2023-06-25] MEDS ORDERED: FAMOTIDINE 20 MG TAB PO SCH (21:00)
[2023-06-25] MEDS: DEXTROSE 5% IN WATER 1,000 ML with SODIUM BICARB (1 MEQ/ML) 150 ML IV SCH (21:48)
[2023-06-25] MEDS: FAMOTIDINE 20 MG/2 ML VIAL IV SCH (21:49)
[2023-06-25] MEDS ORDERED: bisacodyL 10 MG SUPP RECTAL PRN (22:30)
--- NOTE | 2023-06-25 22:44 | US ---
EXAMINATION TYPE: US kidneys/renal and bladder DATE OF EXAM: 06/25/2023 COMPARISON: NONE CLINICAL INDICATION: Male, 72 years old with history of shanell; shanell EXAM MEASUREMENTS: Right Kidney: 12.1 x 7.0 x 5.8 cm Left Kidney: 10.5 x 5.3 x 5.8 cm Right Kidney: No hydronephrosis or masses seen Left Kidney: Limited due to body habitus and pt unable to roll on side. Echogenic focus seen mid pole measuring 0.5 x 0.4cm Bladder: Not seen. Pt has burnett Bilateral Jets seen: No IMPRESSION: 1. Echogenic focus mid left kidney may represent calculus. 2. No evidence of hydronephrosis bilaterally. 3. Bladder is decompressed with a Burnett and not well seen/evaluated.
[2023-06-25] MEDS: APIXABAN 5 MG TAB PO SCH (23:15)
[2023-06-26 03:02] LABS: Basophils % (A) 0 %; Eosinophils # (A) 0.1 k/uL (0-0.7); Eosinophils % (A) 1 %; HCT 29.5 % (39.0-53.0); HGB 9.2 gm/dL (13.0-17.5); Hypochromasia Slight; Lymphocytes # (A) 1.2 k/uL (1.0-4.8); Lymphocytes % (A) 12 %; MCH 28.1 pg (25.0-35.0); MCHC 31.3 g/dL (31.0-37.0); MCV 89.9 fL (80.0-100.0); Mean Platelet Volume 8.6; Monocytes # (A) 0.7 k/uL (0-1.0); Monocytes % (A) 7 %; Neutrophils # (A) 8.1 k/uL (1.3-7.7); Neutrophils % (A) 79 %; Platelet Count 280 k/uL (150-450); RBC 3.28 m/uL (4.30-5.90); RDW 15.2 % (11.5-15.5); WBC 10.3 k/uL (3.8-10.6)
[2023-06-26 03:12] LABS: African American GFR (CKD) 12 (>60 ml/min/1.73 sqM); Anion Gap 11 mmol/L; Calcium 7.9 mg/dL (8.4-10.2); Carbon Dioxide 22 mmol/L (22-30); Chloride 104 mmol/L (98-107); Glucose 252 mg/dL (74-99); Non-African American GFR(CKD) 11 (>60 ml/min/1.73 sqM); Potassium 4.4 mmol/L (3.5-5.1); Sodium 137 mmol/L (137-145)
[2023-06-26 03:16] LABS: Blood Urea Nitrogen 108 mg/dL (9-20)
[2023-06-26] MEDS: LACTATED RINGERS 1,000 ML IV SCH (08:47)
[2023-06-26] MEDS: TAMSULOSIN 0.4 MG CAP.ER.24H PO SCH (08:48)
[2023-06-26] MEDS: CLOPIDOGREL 75 MG TAB PO SCH (08:48)
[2023-06-26] MEDS: ESCITALOPRAM 20 MG TAB PO SCH (08:48)
[2023-06-26] MEDS: IPRATROPIUM-ALBUTEROL 3 ML NEB INHALATION SCH (09:14)
[2023-06-26] MEDS: BUDESONIDE 0.5 MG/2 ML NEBU INHALATION SCH (09:15)
--- NOTE | 2023-06-26 09:52 | P.CRDCN ---
History of Present Illness Consult date: 06/26/23 Reason for Consult (text): Elevated troponins History of present illness: The patient is a 72-year-old male who previously followed in the office with Dr. Flynn, who presented to the emergency room with mental status changes after recent fall. There was concern for head injury as the patient is on anticoagulation for atrial fibrillation. Cardiology has been consulted for AV block, however reevaluation of initial EKG shows atrial fibrillation. The patient does have mildly elevated troponins, likely type II myocardial infarction with his acute kidney injury. DIAGNOSTICS: EKG shows atrial fibrillation Telemetry shows A-fib with rate control in the 80s CT scan of the brain/C-spine shows no acute osseous abnormality. Atrophy with chronic periventricular white matter changes noted. X-ray shows right basilar pleural-parenchymal opacity with small effusion Ultrasound kidneys shows echogenic focus in the mid left kidney, likely calculus without evidence of hydronephrosis Echocardiogram in May reveals EF of 40-45% with mitral annular calcifications and aortic sclerosis Lab data WBC 10.3, hemoglobin 9.2, hematocrit 29.5, platelet 280, sodium 137, potassium 4.4, BUN 108, creatinine 5.12, CK6 129, troponin 0.09, 0.06, positive for urinary tract infection REVIEW OF SYSTEMS: No fever or chills. No cough or expectoration. No diaph oresis. Patient denies headache, dizziness, blurred vision, double vision. Patient denies any stomach discomfort. No nausea, vomiting. No hematochezia. No hematemesis. Denies any black stools or blood in his stools. Denies dysuria or hematuria. No muscle weakness or numbness. Denies chest pain or pressure. Denies difficulty breathing PHYSICAL EXAMINATION: This is a 72-year-old male in no apparent distress at the time of my examination. HEENT: Head is atraumatic, normocephalic. Pupils are equal, round. There is no jugular venous distention. No carotid bruit is heard. CHEST EXAMINATION: Lungs are diminished to auscultation. No chest wall tenderness is noted on palpation or with deep breathing. HEART EXAMINATION: Irregular rate and rhythm. S1, S2 heard. No murmurs, gallops or rub. ABDOMEN: Soft, nontender. Bowel sounds are heard. No organomegaly noted. Bruising noted across abdomen EXTREMITIES: Bilateral [id number] amputee. NEUROLOGIC EXAMINATION: Patient is awake, alert and oriented x1. FINAL ASSESSMENT AND PLAN: Persistent atrial fibrillation, rate controlled Elevated troponins, type II myocardial infarction Acute on chronic kidney injury Rhabdomyolysis Metabolic encephalopathy Urinary tract infection History of CAD History of heart failure, last EF 45 to 5% Diabetes Morbid obesity PLAN: Resume home cardiac medications including anticoagulation No need for repeat echo as it was recently performed in May No plans for coronary intervention at this time Further recommendations to be based upon clinical course I am dictating on behalf of Dr Navjot Cruz's history/physical and assessment/plan. 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 Date of last positivie culture/infection: 10/28/22 MDRO Source:: Blood Past Surgical History: Heart Catheterization Additional Past Surgical History / Comment(s): bilateral great toes amputated, 2nd toe lt foot partial amputation, multiple debridements of venous ulcers, colonoscopy, surgery as a child for undescended testicle., ABOVE THE KNEE AMPUTATION RIGHT LEG (JUNE 2017-[facility]) Past Anesthesia/Blood Transfusion Reactions: No Reported Reaction Date of Last Stent Placement:: 10/17/2022 Past Psychological History: Anxiety, Depression Smoking Status: Former smoker - Past Family History Father Family Medical History: Cancer Additional Family Medical History / Comment(s): Father from brain cancer Mother Family Medical History: Eye Disorder Additional Family Medical History / Comment(s): Glaucoma. Mother is . Medications and Allergies Home Medications Medication Instructions Recorded Confirmed Type traZODone HCL 50 mg PO HS 11/09/17 06/25/23 History Acetaminophen [Tylenol Arthritis] 650 mg PO Q6H PRN 09/29/22 06/25/23 History Budesonide [Pulmicort] 0.5 mg INHALATION RT-BID 09/29/22 06/25/23 History Cholecalciferol [Vitamin D3 (25 25 mcg PO DAILY 09/29/22 06/25/23 History Mcg = 1000 Iu)] Famotidine [Pepcid] 20 mg PO BID 09/29/22 06/25/23 History Tamsulosin [Flomax] 0.4 mg PO DAILY 09/29/22 06/25/23 History Clopidogrel [Plavix] 75 mg PO DAILY #30 tab 10/01/22 06/25/23 Rx HYDROcodone/APAP 5-325MG [[place] 1 tab PO Q6HR PRN 3 Days #12 tab 10/01/22 06/25/23 Rx 5-325] Dapagliflozin Propanediol [Farxiga] 10 mg PO DAILY #30 tab 10/20/22 06/25/23 Rx Ipratropium-Albuterol Nebulize 3 ml INHALATION RT-Q2H PRN each 11/03/22 06/25/23 Rx [Duoneb 0.5 mg-3 mg/3 ml Soln] Apixaban [Eliquis] 5 mg PO BID 30 Days #30 tab 12/10/22 06/25/23 Rx Furosemide [Lasix] 80 mg PO DAILY 30 Days #30 tab 12/10/22 06/25/23 Rx Escitalopram [Lexapro] 20 mg PO DAILY 05/25/23 06/25/23 History Furosemide [Lasix] 40 mg PO DAILY@1600 05/25/23 06/25/23 History Insulin Glargine,Hum.rec.anlog 20 units SQ BID 05/25/23 06/25/23 History [Lantus Solostar Pen] Insulin Lispro [humaLOG Kwikpen] See Protocol SQ ACHS 05/25/23 06/25/23 History Ipratropium-Albuterol Nebulize 3 ml INHALATION RT-QID 05/25/23 06/25/23 History [Duoneb 0.5 mg-3 mg/3 ml Soln] Nitroglycerin Sl Tabs [Nitrostat] 0.4 mg SL Q5M PRN 05/25/23 06/25/23 History lisinopriL [Zestril] 10 mg PO BID 30 Days #30 tab 05/29/23 06/25/23 Rx Acetaminophen Suppository [Tylenol 650 mg RECTAL Q4H PRN 06/25/23 06/25/23 History Suppository] Haloperidol Oral Soln [Haldol Oral 0.5 - 1 mg PO Q4H PRN 06/25/23 06/25/23 History Soln] Hyoscyamine Sulfate [Levsin-Sl] 0.125 mg SL Q4H PRN 06/25/23 06/25/23 History LORazepam [Ativan] 0.5 - 1 mg PO Q4H PRN 06/25/23 06/25/23 History MORPHINE ORAL JUSTYNA CONC 20mg/mL 5 - 20 mg PO Q4HR PRN 06/25/23 06/25/23 History [Roxanol Oral Soln Conc 20MG/ML] Prochlorperazine Suppository 25 mg RECTAL Q12H PRN 06/25/23 06/25/23 History [Compazine] Sennosides/Docusate Sodium 1 tab PO BID PRN 06/25/23 06/25/23 History [Senna-S 8.6-50 mg Tablet] bisacodyL [Dulcolax] 10 mg RECTAL Q72H PRN 06/25/23 06/25/23 History Allergies Allergy/AdvReac Type Severity Reaction Status Date / Time No Known Allergies Allergy Verified 06/25/23 15:50 Physical Exam Vitals: Vital Signs Temp Pulse Resp BP BP Pulse Ox 06/26/23 09:25 70 06/26/23 09:17 98 06/26/23 09:16 63 06/26/23 09:00 68 18 123/61 97 06/26/23 08:00 99.1 F 51 L 12 90/39 98 06/26/23 07:00 50 L 12 111/50 98 06/26/23 06:45 55 L 13 113/76 99 06/26/23 06:30 73 14 116/47 99 06/26/23 06:15 48 L 12 113/47 100 06/26/23 06:00 48 L 14 114/66 100 06/26/23 05:45 48 L 12 117/45 100 06/26/23 05:30 48 L 14 110/43 100 06/26/23 05:15 48 L 13 114/44 100 06/26/23 05:00 48 L 17 116/44 100 06/26/23 04:45 48 L 16 127/47 100 06/26/23 04:30 49 L 14 118/52 100 06/26/23 04:15 49 L 8 L 120/47 97 06/26/23 04:00 99 F 49 L 14 120/44 97 06/26/23 03:45 49 L 9 L 117/45 99 06/26/23 03:30 49 L 14 111/55 98 06/26/23 03:15 50 L 13 135/53 99 06/26/23 03:00 49 L 15 126/46 99 06/26/23 02:45 51 L 12 147/66 99 06/26/23 02:30 76 12 129/50 99 06/26/23 02:15 61 17 139/50 98 06/26/23 02:00 56 L 17 135/52 99 06/26/23 01:45 59 L 12 131/54 99 06/26/23 01:30 74 14 105/53 97 06/26/23 01:15 77 16 123/56 98 06/26/23 01:00 58 L 13 110/51 100 06/26/23 00:45 59 L 15 195/60 100 06/26/23 00:30 55 L 12 126/49 99 06/26/23 00:15 77 13 130/49 99 06/26/23 00:00 97.9 F 77 14 139/52 99 06/25/23 23:45 78 12 124/69 99 06/25/23 23:30 78 13 133/50 99 06/25/23 23:15 79 12 153/54 98 06/25/23 23:00 78 14 145/56 100 06/25/23 22:45 78 20 144/52 100 06/25/23 22:30 78 13 140/58 100 06/25/23 22:15 86 12 142/48 99 06/25/23 22:00 78 12 133/52 99 06/25/23 21:45 79 12 128/60 100 06/25/23 21:30 78 15 135/51 99 06/25/23 21:15 79 16 145/53 100 06/25/23 21:00 97.7 F 78 20 158/73 100 06/25/23 20:19 96.5 F L 78 18 86/59 89 L 06/25/23 20:00 77 18 85/64 98 06/25/23 19:45 77 18 122/48 97 06/25/23 18:45 76 16 106/40 96 06/25/23 18:40 77 19 107/47 96 06/25/23 18:15 76 18 117/80 96 04/11/24 18:00 97.6 F 76 16 114/40 98 06/25/23 17:46 76 17 125/59 97 06/25/23 17:33 76 16 114/54 95 06/25/23 17:28 97.7 F 12 140/58 06/25/23 17:15 77 20 125/48 98 06/25/23 17:00 98.0 F 73 16 92/48 99 06/25/23 16:31 75 14 83/54 99 06/25/23 16:27 75 16 90/43 99 06/25/23 16:00 97.8 F 74 16 71/55 99 06/25/23 15:46 76 20 84/66 100 06/25/23 15:15 77 14 74/38 100 06/25/23 15:05 77 20 76/39 97 06/25/23 14:50 77 16 111/47 99 06/25/23 14:03 80 22 85/51 100 06/25/23 13:45 98.1 F 80 22 82/44 100 Intake and Output 06/25/23 06/26/23 06/26/23 22:59 06:59 14:59 Intake Total 943.287 4150.869 350 Output Total 100 695 150 Balance 78.359 458.869 200 Intake: IV 125 1050 250 Dextrose 5% in Water 1, 125 1000 250 000 ml @ 125 mls/hr IV . Q9H12M [facility] with Sodium Bicarb (1 Meq/ml) 150 ml Rx#:[id number] cefTRIAXone 2 gm In 50 Sodium Chloride 0.9% 50 ml @ 100 mls/hr IVPB Q24H [facility] Rx#:[id number] Intake, IV Titration 53.359 103.869 100 Amount Lactated Ringers 1,000 ml 100 @ 100 mls/hr IV .Q10H [facility] Rx#:[id number] Norepinephrine 4 mg In 53.359 103.869 Sodium Chloride 0.9% 250 ml @ 0.05 MCG/KG/MIN 16. 418 mls/hr IV .[id number] [facility] Rx#:[id number] Output: Urine 100 695 150 Other: Voiding Method Indwelling Catheter Indwelling Catheter Indwelling Catheter Weight 86.183 kg Results 06/26/23 02:32 06/26/23 02:32 Cardiac Enzymes 06/25/23 06/25/23 06/26/23 Range/Units 13:54 13:54 02:32 AST 34 (17-59) U/L Troponin I 0.095 H* 0.060 H* (0.000-0.034) ng/mL Coagulation 06/25/23 Range/Units 13:54 PT 11.8 (10.0-12.5) sec APTT 29.4 (22.0-30.0) sec CBC 06/25/23 06/26/23 Range/Units 13:54 02:32 WBC 15.6 H 10.3 (3.8-10.6) k/uL RBC 3.68 L 3.28 L (4.30-5.90) m/uL Hgb 10.3 L 9.2 L (13.0-17.5) gm/dL Hct 32.2 L 29.5 L (39.0-53.0) % Plt Count 392 280 (150-450) k/uL Comprehensive Metabolic Panel 06/25/23 06/26/23 Range/Units 13:54 02:32 Sodium 139 137 (137-145) mmol/L Potassium 4.7 4.4 (3.5-5.1) mmol/L Chloride 103 104 (98-107) mmol/L Carbon Dioxide 17 L 22 (22-30) mmol/L BUN 111 H* 108 H* (9-20) mg/dL Creatinine 6.55 H 5.12 H (0.66-1.25) mg/dL Glucose 164 H 252 H (74-99) mg/dL Calcium 8.9 7.9 L (8.4-10.2) mg/dL AST 34 (17-59) U/L ALT 15 (4-49) U/L Alkaline Phosphatase 91 (38-126) U/L Total Protein 7.5 (6.3-8.2) g/dL Albumin 3.9 (3.5-5.0) g/dL Current Medications Generic Name Dose Route Start Last Admin Trade Name Freq PRN Reason Stop Dose Admin Hydrocodone Bitart/Acetaminophen 1 each 06/25/23 20:34 Hydrocodone/Apap 5-325mg 1 Each Tab PO Q6HR PRN Pain Albuterol/Ipratropium 3 ml 06/26/23 08:00 06/26/23 09:14 Ipratropium-Albuterol 3 Ml Neb INHALATION 3 ml RT-QID [facility]HU Administration Apixaban 5 mg 06/25/23 22:30 06/26/23 08:48 Apixaban 5 Mg Tab PO 5 mg BID SINDHU Administration Protocol Bisacodyl 10 mg 06/25/23 22:30 Bisacodyl 10 Mg Supp RECTAL Q72H PRN Constipation Budesonide 0.5 mg 06/26/23 08:00 06/26/23 09:15 Budesonide 0.5 Mg/2 Ml Nebu INHALATION 0.5 mg RT-BID SINDHU Administration Clopidogrel Bisulfate 75 mg 06/26/23 09:00 06/26/23 08:48 Clopidogrel 75 Mg Tab PO 75 mg DAILY SINDHU Administration Escitalopram Oxalate 20 mg 06/26/23 09:00 06/26/23 08:48 Escitalopram 20 Mg Tab PO 20 mg DAILY SINDHU Administration Famotidine 20 mg 06/25/23 21:00 06/26/23 08:48 Famotidine 20 Mg/2 Ml Vial IV 20 mg DAILY SINDHU Administration Norepinephrine Bitartrate 4 mg 254 mls @ 16.418 mls/hr 06/25/23 16:45 06/26/23 04:32 / Sodium Chloride IV 0 mcg/kg/min .[id number] SINDHU 0 mls/hr Titration Protocol 0.05 MCG/KG/MIN Ceftriaxone Sodium 2 gm/ 50 mls @ 100 mls/hr 06/26/23 06:00 06/26/23 05:12 Sodium Chloride IVPB 100 mls/hr Q24H SINDHU Administration Protocol Lactated Ringer's 1,000 mls @ 100 mls/hr 06/26/23 07:45 06/26/23 08:47 Lactated Ringers IV 100 mls/hr .Q10H SINDHU Administration Miscellaneous Information 1 each 06/25/23 16:42 Potassium Replacement Protocol 1 Each Misc MISCELLANE DAILY PRN Per Protocol Miscellaneous Information 1 each 06/25/23 16:42 Magnesium Replacement Protocol 1 Each Misc MISCELLANE DAILY PRN Per Protocol Protocol Miscellaneous Information 1 each 06/25/23 16:42 Phosphorus Replacement Protoco 1 Each Misc MISCELLANE DAILY PRN Per Protocol Protocol Naloxone HCl 0.2 mg 06/25/23 16:42 Naloxone 0.4 Mg/Ml 1 Ml Vial IV Q2M PRN Opioid Reversal Tamsulosin HCl 0.4 mg 06/26/23 09:00 06/26/23 08:48 Tamsulosin 0.4 Mg Cap.Er.24h PO 0.4 mg DAILY SINDHU Administration Intake and Output 06/25/23 06/26/23 06/26/23 22:59 06:59 14:59 Intake Total 470.900 3316.869 350 Output Total 100 695 150 Balance 78.359 458.869 200 Intake: IV 125 1050 250 Dextrose 5% in Water 1, 125 1000 250 000 ml @ 125 mls/hr IV . Q9H12M [facility] with Sodium Bicarb (1 Meq/ml) 150 ml Rx#:[id number] cefTRIAXone 2 gm In 50 Sodium Chloride 0.9% 50 ml @ 100 mls/hr IVPB Q24H [facility] Rx#:[id number] Intake, IV Titration 53.359 103.869 100 Amount Lactated Ringers 1,000 ml 100 @ 100 mls/hr IV .Q10H [facility] Rx#:[id number] Norepinephrine 4 mg In 53.359 103.869 Sodium Chloride 0.9% 250 ml @ 0.05 MCG/KG/MIN 16. 418 mls/hr IV .[id number] [facility] Rx#:[id number] Output: Urine 100 695 150 Other: Voiding Method Indwelling Catheter Indwelling Catheter Indwelling Catheter Weight 86.183 kg 06/26/23 02:32 06/26/23 02:32
[2023-06-26] MEDS ORDERED: DEXTROSE 50% SYRINGE 50 ML IVP PRN ×2 (10:00)
--- NOTE | 2023-06-26 10:48 | P.NPCON ---
History of Present Illness - Reason for Consult acute renal failure, chronic renal failure - History of Present Illness Reason for consultation: Acute kidney injury on chronic kidney disease History of present illness: Patient is a 72-year-old male seen in renal consultation for acute kidney injury on chronic kidney disease. Patient has chronic kidney disease stage IIIa with baseline creatinine 1.2-1.3. Patient came to the hospital due to altered mental status. It is noted from records that patient was initially at hospice house but for some reason was taken home by family. Patient deteriorated and was also noted to have altered mental status and was brought back to the hospital. He is currently a full code. Patient has history of lower extremity amputations. He did receive 3 L of normal saline and is currently maintained on LR at 100 cc an hour. He received bicarb drip overnight with improvement in acidosis. He is off vasopressors at this time. Patient is not a very reliable historian. Creatinine was 6.55 on admission and is 5.12 today. I do see lisinopril on his home medication list as well as Lasix and both are currently held at this time. Patient has history of diabetes. Patient has history of systolic CHF with ejection fraction of 45 to 50%. Also on antibiotics for UTI. Vital signs are stable. General: No acute distress. HEENT: Head exam is unremarkable. LUNGS: No audible rhonchi or wheezes. HEART: Rate and Rhythm are regular. ABDOMEN: No distention. EXTREMITITES: Lower extremity amputations noted. 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 Date of last positivie culture/infection: 10/28/22 MDRO Source:: Blood Past Surgical History: Heart Catheterization Additional Past Surgical History / Comment(s): bilateral great toes amputated, 2nd toe lt foot partial amputation, multiple debridements of venous ulcers, colonoscopy, surgery as a child for undescended testicle., ABOVE THE KNEE AMPUTATION RIGHT LEG (JUNE 2017-[facility]) Past Anesthesia/Blood Transfusion Reactions: No Reported Reaction Date of Last Stent Placement:: 10/17/2022 Past Psychological History: Anxiety, Depression Smoking Status: Former smoker - Past Family History Father Family Medical History: Cancer Additional Family Medical History / Comment(s): Father from brain cancer Mother Family Medical History: Eye Disorder Additional Family Medical History / Comment(s): Glaucoma. Mother is . Medications and Allergies Home Medications Medication Instructions Recorded Confirmed Type traZODone HCL 50 mg PO HS 11/09/17 06/25/23 History Acetaminophen [Tylenol Arthritis] 650 mg PO Q6H PRN 09/29/22 06/25/23 History Budesonide [Pulmicort] 0.5 mg INHALATION RT-BID 09/29/22 06/25/23 History Cholecalciferol [Vitamin D3 (25 25 mcg PO DAILY 09/29/22 06/25/23 History Mcg = 1000 Iu)] Famotidine [Pepcid] 20 mg PO BID 09/29/22 06/25/23 History Tamsulosin [Flomax] 0.4 mg PO DAILY 09/29/22 06/25/23 History Clopidogrel [Plavix] 75 mg PO DAILY #30 tab 10/01/22 06/25/23 Rx HYDROcodone/APAP 5-325MG [[place] 1 tab PO Q6HR PRN 3 Days #12 tab 10/01/22 06/25/23 Rx 5-325] Dapagliflozin Propanediol [Farxiga] 10 mg PO DAILY #30 tab 10/20/22 06/25/23 Rx Ipratropium-Albuterol Nebulize 3 ml INHALATION RT-Q2H PRN each 11/03/22 06/25/23 Rx [Duoneb 0.5 mg-3 mg/3 ml Soln] Apixaban [Eliquis] 5 mg PO BID 30 Days #30 tab 12/10/22 06/25/23 Rx Furosemide [Lasix] 80 mg PO DAILY 30 Days #30 tab 12/10/22 06/25/23 Rx Escitalopram [Lexapro] 20 mg PO DAILY 05/25/23 06/25/23 History Furosemide [Lasix] 40 mg PO DAILY@1600 05/25/23 06/25/23 History Insulin Glargine,Hum.rec.anlog 20 units SQ BID 05/25/23 06/25/23 History [Lantus Solostar Pen] Insulin Lispro [humaLOG Kwikpen] See Protocol SQ ACHS 05/25/23 06/25/23 History Ipratropium-Albuterol Nebulize 3 ml INHALATION RT-QID 05/25/23 06/25/23 History [Duoneb 0.5 mg-3 mg/3 ml Soln] Nitroglycerin Sl Tabs [Nitrostat] 0.4 mg SL Q5M PRN 05/25/23 06/25/23 History lisinopriL [Zestril] 10 mg PO BID 30 Days #30 tab 05/29/23 06/25/23 Rx Acetaminophen Suppository [Tylenol 650 mg RECTAL Q4H PRN 06/25/23 06/25/23 History Suppository] Haloperidol Oral Soln [Haldol Oral 0.5 - 1 mg PO Q4H PRN 06/25/23 06/25/23 History Soln] Hyoscyamine Sulfate [Levsin-Sl] 0.125 mg SL Q4H PRN 06/25/23 06/25/23 History LORazepam [Ativan] 0.5 - 1 mg PO Q4H PRN 06/25/23 06/25/23 History MORPHINE ORAL JUSTYNA CONC 20mg/mL 5 - 20 mg PO Q4HR PRN 06/25/23 06/25/23 History [Roxanol Oral Soln Conc 20MG/ML] Prochlorperazine Suppository 25 mg RECTAL Q12H PRN 06/25/23 06/25/23 History [Compazine] Sennosides/Docusate Sodium 1 tab PO BID PRN 06/25/23 06/25/23 History [Senna-S 8.6-50 mg Tablet] bisacodyL [Dulcolax] 10 mg RECTAL Q72H PRN 06/25/23 06/25/23 History Allergies Allergy/AdvReac Type Severity Reaction Status Date / Time No Known Allergies Allergy Verified 06/25/23 15:50 Physical Exam Vitals: Vital Signs Temp Pulse Resp BP BP Pulse Ox 06/26/23 10:00 75 16 96/50 97 06/26/23 09:25 70 06/26/23 09:17 98 06/26/23 09:16 63 06/26/23 09:00 68 18 123/61 97 06/26/23 08:00 99.1 F 51 L 12 90/39 98 06/26/23 07:00 50 L 12 111/50 98 06/26/23 06:45 55 L 13 113/76 99 06/26/23 06:30 73 14 116/47 99 06/26/23 06:15 48 L 12 113/47 100 06/26/23 06:00 48 L 14 114/66 100 06/26/23 05:45 48 L 12 117/45 100 06/26/23 05:30 48 L 14 110/43 100 06/26/23 05:15 48 L 13 114/44 100 06/26/23 05:00 48 L 17 116/44 100 06/26/23 04:45 48 L 16 127/47 100 06/26/23 04:30 49 L 14 118/52 100 06/26/23 04:15 49 L 8 L 120/47 97 06/26/23 04:00 99 F 49 L 14 120/44 97 06/26/23 03:45 49 L 9 L 117/45 99 06/26/23 03:30 49 L 14 111/55 98 06/26/23 03:15 50 L 13 135/53 99 06/26/23 03:00 49 L 15 126/46 99 06/26/23 02:45 51 L 12 147/66 99 06/26/23 02:30 76 12 129/50 99 06/26/23 02:15 61 17 139/50 98 06/26/23 02:00 56 L 17 135/52 99 06/26/23 01:45 59 L 12 131/54 99 06/26/23 01:30 74 14 105/53 97 06/26/23 01:15 77 16 123/56 98 06/26/23 01:00 58 L 13 110/51 100 06/26/23 00:45 59 L 15 195/60 100 06/26/23 00:30 55 L 12 126/49 99 06/26/23 00:15 77 13 130/49 99 06/26/23 00:00 97.9 F 77 14 139/52 99 06/25/23 23:45 78 12 124/69 99 06/25/23 23:30 78 13 133/50 99 06/25/23 23:15 79 12 153/54 98 06/25/23 23:00 78 14 145/56 100 06/25/23 22:45 78 20 144/52 100 06/25/23 22:30 78 13 140/58 100 06/25/23 22:15 86 12 142/48 99 06/25/23 22:00 78 12 133/52 99 06/25/23 21:45 79 12 128/60 100 06/25/23 21:30 78 15 135/51 99 06/25/23 21:15 79 16 145/53 100 06/25/23 21:00 97.7 F 78 20 158/73 100 06/25/23 20:19 96.5 F L 78 18 86/59 89 L 06/25/23 20:00 77 18 85/64 98 06/25/23 19:45 77 18 122/48 97 06/25/23 18:45 76 16 106/40 96 06/25/23 18:40 77 19 107/47 96 06/25/23 18:15 76 18 117/80 96 06/25/23 18:00 97.6 F 76 16 114/40 98 06/25/23 17:46 76 17 125/59 97 06/25/23 17:33 76 16 114/54 95 06/25/23 17:28 97.7 F 12 140/58 06/25/23 17:15 77 20 125/48 98 06/25/23 17:00 98.0 F 73 16 92/48 99 06/25/23 16:31 75 14 83/54 99 06/25/23 16:27 75 16 90/43 99 06/25/23 16:00 97.8 F 74 16 71/55 99 06/25/23 15:46 76 20 84/66 100 06/25/23 15:15 77 14 74/38 100 06/25/23 15:05 77 20 76/39 97 06/25/23 14:50 77 16 111/47 99 06/25/23 14:03 80 22 85/51 100 06/25/23 13:45 98.1 F 80 22 82/44 100 Intake and Output 06/25/23 06/26/23 06/26/23 22:59 06:59 14:59 Intake Total 256.686 8476.869 450 Output Total 100 695 250 Balance 78.359 458.869 200 Intake: IV 125 1050 250 Dextrose 5% in Water 1, 125 1000 250 000 ml @ 125 mls/hr IV . Q9H12M [facility] with Sodium Bicarb (1 Meq/ml) 150 ml Rx#:[id number] cefTRIAXone 2 gm In 50 Sodium Chloride 0.9% 50 ml @ 100 mls/hr IVPB Q24H [facility] Rx#:[id number] Intake, IV Titration 53.359 103.869 200 Amount Lactated Ringers 1,000 ml 200 @ 100 mls/hr IV .Q10H [facility] Rx#:[id number] Norepinephrine 4 mg In 53.359 103.869 Sodium Chloride 0.9% 250 ml @ 0.05 MCG/KG/MIN 16. 418 mls/hr IV .[id number] [facility] Rx#:[id number] Output: Urine 100 695 250 Other: Voiding Method Indwelling Catheter Indwelling Catheter Indwelling Catheter Weight 86.183 kg 86.183 kg Results - Lab Results Most recent lab results Calcium 7.9 mg/dL (8.4-10.2) L 06/26/23 02:32 06/26/23 02:32 06/26/23 02:32 Assessment and Plan Plan: Assessment: 1. Acute kidney injury secondary to ATN secondary to hypotension/shock. Creatinine 6.55 on admission and is 5.12 today. No hydronephrosis noted on kidney ultrasound. 2. Chronic kidney disease stage IIIa with baseline creatinine 1.2-1.3 secondary to nephrosclerosis. 3. Metabolic acidosis secondary to acute kidney injury improved with bicarb drip. 4. UTI maintained on antibiotics. 5. Chronic systolic CHF ejection fraction of 45 to 50%. 6. Diabetes mellitus. Plan: Maintain IV fluids. Avoid nephrotoxins. Continue to monitor renal function and urine output. No need for renal replacement therapy at this time. Thank you for the consultation. I will continue to follow the patient with you during his hospital stay.
[2023-06-26 11:55] LABS: Glucose,Whole Blood 160 mg/dL (70-110)
[2023-06-26] MEDS: INSULIN ASPART (NovoLOG) 100 UNIT/ML VIAL SQ SCH (12:47)
[2023-06-26] MEDS: HYDROcodone/APAP 5-325MG 1 EACH TAB PO PRN (12:47)
--- NOTE | 2023-06-26 13:58 | P.HPIM ---
History of Present Illness H&P Date: 06/26/23 Chief Complaint: Altered mental status 72-year-old male with past medical history of diabetes, dementia who presents to the emergency department for altered mental status. The patient went to respite care this past weekend. When he returned home and the patient was not his normal self. It was reported that the patient had a fall with possible head injury however was never sent in for evaluation. Patient has not been eating or drinking much. He has low urine output. Patient does have Davidson catheter in place. Patient is alert and oriented x 2. Patient arrives hypotensive. No reported fevers. He does have some bruising noted to his lower abdomen. No signs of head injury appreciated. Patient denies any pain. He does wear 2-4 L of oxygen at all times. No other alleviating, precipitating modifying factors UA was abnormal with many bacteria and white cells and a highly elevated white cell count. Blood work showed a white cell count of 15.6 with a hemoglobin of 10.3. The electrolytes showed a BUN of 111 with a creatinine of 6.55 and a sodium level of 139 and a potassium level of 4.7. The patient has anion gap metabolic acidosis with a gap of 19 and a serum bicarb of 17. LFTs were normal. Troponin was 0.095. Coagulation profile was within normal limits. CAT scan of the brain and cervical spine showed no acute osseous abnormality involving the cervical spine and large anterior vertebral bodies. At the level of C5/C7. The chest x-ray revealed a right basilar pleural-parenchymal opacity and right- sided pleural effusion and this has been smaller in size compared to the chest x-ray from 05/28/2023. EKG showed normal sinus rhythm with LVH criteria and old Q waves involving the inferior leads. 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 [place] [facility]) Past Anesthesia/Blood Transfusion Reactions: No Reported Reaction Date of Last Stent Placement:: 10/17/2022 Past Psychological History: Anxiety, Depression Smoking Status: Former smoker - Past Family History Father Family Medical History: Cancer Additional Family Medical History / Comment(s): Father from brain cancer Mother Family Medical History: Eye Disorder Additional Family Medical History / Comment(s): Glaucoma. Mother is . Medications and Allergies Home Medications Medication Instructions Recorded Confirmed Type traZODone HCL 50 mg PO HS 11/09/17 06/25/23 History Acetaminophen [Tylenol Arthritis] 650 mg PO Q6H PRN 09/29/22 06/25/23 History Budesonide [Pulmicort] 0.5 mg INHALATION RT-BID 09/29/22 06/25/23 History Cholecalciferol [Vitamin D3 (25 25 mcg PO DAILY 09/29/22 06/25/23 History Mcg = 1000 Iu)] Famotidine [Pepcid] 20 mg PO BID 09/29/22 06/25/23 History Tamsulosin [Flomax] 0.4 mg PO DAILY 09/29/22 06/25/23 History Clopidogrel [Plavix] 75 mg PO DAILY #30 tab 10/01/22 06/25/23 Rx HYDROcodone/APAP 5-325MG [[place] 1 tab PO Q6HR PRN 3 Days #12 tab 10/01/22 Rx 5-325] Dapagliflozin Propanediol [Farxiga] 10 mg PO DAILY #30 tab 10/20/22 06/25/23 Rx Ipratropium-Albuterol Nebulize 3 ml INHALATION RT-Q2H PRN each 11/03/22 06/25/23 Rx [Duoneb 0.5 mg-3 mg/3 ml Soln] Apixaban [Eliquis] 5 mg PO BID 30 Days #30 tab 12/10/22 06/25/23 Rx Furosemide [Lasix] 80 mg PO DAILY 30 Days #30 tab 12/10/22 06/25/23 Rx Escitalopram [Lexapro] 20 mg PO DAILY 05/25/23 06/25/23 History Furosemide [Lasix] 40 mg PO DAILY@1600 05/25/23 06/25/23 History Insulin Glargine,Hum.rec.anlog 20 units SQ BID 05/25/23 06/25/23 History [Lantus Solostar Pen] Insulin Lispro [humaLOG Kwikpen] See Protocol SQ ACHS 05/25/23 06/25/23 History Ipratropium-Albuterol Nebulize 3 ml INHALATION RT-QID 05/25/23 06/25/23 History [Duoneb 0.5 mg-3 mg/3 ml Soln] Nitroglycerin Sl Tabs [Nitrostat] 0.4 mg SL Q5M PRN 05/25/23 06/25/23 History lisinopriL [Zestril] 10 mg PO BID 30 Days #30 tab 05/29/23 06/25/23 Rx Acetaminophen Suppository [Tylenol 650 mg RECTAL Q4H PRN 06/25/23 06/25/23 History Suppository] Haloperidol Oral Soln [Haldol Oral 0.5 - 1 mg PO Q4H PRN 06/25/23 06/25/23 History Soln] Hyoscyamine Sulfate [Levsin-Sl] 0.125 mg SL Q4H PRN 06/25/23 06/25/23 History LORazepam [Ativan] 0.5 - 1 mg PO Q4H PRN 06/25/23 06/25/23 History MORPHINE ORAL JUSTYNA CONC 20mg/mL 5 - 20 mg PO Q4HR PRN 06/25/23 06/25/23 History [Roxanol Oral Soln Conc 20MG/ML] Prochlorperazine Suppository 25 mg RECTAL Q12H PRN 06/25/23 06/25/23 History [Compazine] Sennosides/Docusate Sodium 1 tab PO BID PRN 06/25/23 06/25/23 History [Senna-S 8.6-50 mg Tablet] bisacodyL [Dulcolax] 10 mg RECTAL Q72H PRN 06/25/23 06/25/23 History Allergies Allergy/AdvReac Type Severity Reaction Status Date / Time No Known Allergies Allergy Verified 06/25/23 15:50 Physical Exam Vitals: Vital Signs Temp Pulse Resp BP BP Pulse Ox 06/26/23 10:00 75 16 96/50 97 06/26/23 09:25 70 06/26/23 09:17 98 06/26/23 09:16 63 06/26/23 09:00 68 18 123/61 97 06/26/23 08:00 99.1 F 51 L 12 90/39 98 06/26/23 07:00 50 L 12 111/50 98 06/26/23 06:45 55 L 13 113/76 99 06/26/23 06:30 73 14 116/47 99 06/26/23 06:15 48 L 12 113/47 100 06/26/23 06:00 48 L 14 114/66 100 06/26/23 05:45 48 L 12 117/45 100 06/26/23 05:30 48 L 14 110/43 100 06/26/23 05:15 48 L 13 114/44 100 06/26/23 05:00 48 L 17 116/44 100 06/26/23 04:45 48 L 16 127/47 100 06/26/23 04:30 49 L 14 118/52 100 06/26/23 04:15 49 L 8 L 120/47 97 06/26/23 04:00 99 F 49 L 14 120/44 97 06/26/23 03:45 49 L 9 L 117/45 99 06/26/23 03:30 49 L 14 111/55 98 06/26/23 03:15 50 L 13 135/53 99 06/26/23 03:00 49 L 15 126/46 99 06/26/23 02:45 51 L 12 147/66 99 06/26/23 02:30 76 12 129/50 99 06/26/23 02:15 61 17 139/50 98 06/26/23 02:00 56 L 17 135/52 99 06/26/23 01:45 59 L 12 131/54 99 06/26/23 01:30 74 14 105/53 97 06/26/23 01:15 77 16 123/56 98 06/26/23 01:00 58 L 13 110/51 100 06/26/23 00:45 59 L 15 195/60 100 06/26/23 00:30 55 L 12 126/49 99 06/26/23 00:15 77 13 130/49 99 06/26/23 00:00 97.9 F 77 14 139/52 99 06/25/23 23:45 78 12 124/69 99 06/25/23 23:30 78 13 133/50 99 06/25/23 23:15 79 12 153/54 98 06/25/23 23:00 78 14 145/56 100 06/25/23 22:45 78 20 144/52 100 06/25/23 22:30 78 13 140/58 100 06/25/23 22:15 86 12 142/48 99 06/25/23 22:00 78 12 133/52 99 06/25/23 21:45 79 12 128/60 100 06/25/23 21:30 78 15 135/51 99 06/25/23 21:15 79 16 145/53 100 06/25/23 21:00 97.7 F 78 20 158/73 100 06/25/23 20:19 96.5 F L 78 18 86/59 89 L 06/25/23 20:00 77 18 85/64 98 06/25/23 19:45 77 18 122/48 97 06/25/23 18:45 76 16 106/40 96 06/25/23 18:40 77 19 107/47 96 06/25/23 18:15 76 18 117/80 96 06/25/23 18:00 97.6 F 76 16 114/40 98 06/25/23 17:46 76 17 125/59 97 06/25/23 17:33 76 16 114/54 95 06/25/23 17:28 97.7 F 12 140/58 06/25/23 17:15 77 20 125/48 98 06/25/23 17:00 98.0 F 73 16 92/48 99 06/25/23 16:31 75 14 83/54 99 06/25/23 16:27 75 16 90/43 99 06/25/23 16:00 97.8 F 74 16 71/55 99 06/25/23 15:46 76 20 84/66 100 06/25/23 15:15 77 14 74/38 100 06/25/23 15:05 77 20 76/39 97 06/25/23 14:50 77 16 111/47 99 06/25/23 14:03 80 22 85/51 100 06/25/23 13:45 98.1 F 80 22 82/44 100 Intake and Output 06/25/23 06/26/23 06/26/23 22:59 06:59 14:59 Intake Total 707.290 1852.869 450 Output Total 100 695 250 Balance 78.359 458.869 200 Intake: IV 125 1050 250 Dextrose 5% in Water 1, 125 1000 250 000 ml @ 125 mls/hr IV . Q9H12M SINDHU with Sodium Bicarb (1 Meq/ml) 150 ml Rx#:[id number] cefTRIAXone 2 gm In 50 Sodium Chloride 0.9% 50 ml @ 100 mls/hr IVPB Q24H SINDHU Rx#:[id number] Intake, IV Titration 53.359 103.869 200 Amount Lactated Ringers 1,000 ml 200 @ 100 mls/hr IV .Q10H SINDHU Rx#:[id number] Norepinephrine 4 mg In 53.359 103.869 Sodium Chloride 0.9% 250 ml @ 0.05 MCG/KG/MIN 16. 418 mls/hr IV .[id number] SINDHU Rx#:[id number] Output: Urine 100 695 250 Other: Voiding Method Indwelling Catheter Indwelling Catheter Indwelling Catheter Weight 86.183 kg 86.183 kg GENERAL EXAM: Alert, pleasant 72-year-old male, resting comfortably in bed, Currently on 2 L of oxygen by nasal cannula. HEAD: Normocephalic. EYES: Normal reaction of pupils, equal size. NECK: No masses, no JVD. CHEST: No chest wall deformity. LUNGS: Equal air entry with crackles in the right base. Diminished breath sounds right lung base along with dullness to percussion. CVS: S1 and S2 normal with no audible murmur, regular rhythm. ABDOMEN: No hepatosplenomegaly, normal bowel sounds, no guarding or rigidity. SPINE: No scoliosis or deformity SKIN: No rashes, stage I sacral decub ulceration. CENTRAL NERVOUS SYSTEM: No focal deficits, tone is normal in all 4 extremities. Baseline confusion and alert and oriented x 1-2. EXTREMITIES: Bilateral [id number] amputee. Results CBC & Chem 7: 06/26/23 02:32 06/26/23 02:32 Labs: Abnormal Lab Results - Last 24 Hours (Table) 06/25/23 06/25/23 06/25/23 Range/Units 13:54 13:54 13:54 WBC 15.6 H (3.8-10.6) k/uL RBC 3.68 L (4.30-5.90) m/uL Hgb 10.3 L (13.0-17.5) gm/dL Hct 32.2 L (39.0-53.0) % Neutrophils # 13.0 H (1.3-7.7) k/uL Carbon Dioxide 17 L (22-30) mmol/L BUN 111 H* (9-20) mg/dL Creatinine 6.55 H (0.66-1.25) mg/dL Glucose 164 H (74-99) mg/dL POC Glucose (mg/dL) (70-110) mg/dL Calcium (8.4-10.2) mg/dL Creatine Kinase (55-170) U/L Troponin I (0.000-0.034) ng/mL Urine Protein Trace H (Negative) Urine Blood Moderate H (Negative) Ur Leukocyte Esterase Large H (Negative) Urine RBC >182 H (0-5) /hpf Urine WBC >182 H (0-5) /hpf Urine WBC Clumps Many H (None) /hpf Urine Bacteria Many H (None) /hpf 06/25/23 06/25/23 06/25/23 Range/Units 13:54 14:01 20:47 WBC (3.8-10.6) k/uL RBC (4.30-5.90) m/uL Hgb (13.0-17.5) gm/dL Hct (39.0-53.0) % Neutrophils # (1.3-7.7) k/uL Carbon Dioxide (22-30) mmol/L BUN (9-20) mg/dL Creatinine (0.66-1.25) mg/dL Glucose (74-99) mg/dL POC Glucose (mg/dL) 170 H 254 H (70-110) mg/dL Calcium (8.4-10.2) mg/dL Creatine Kinase (55-170) U/L Troponin I 0.095 H* (0.000-0.034) ng/mL Urine Protein (Negative) Urine Blood (Negative) Ur Leukocyte Esterase (Negative) Urine RBC (0-5) /hpf Urine WBC (0-5) /hpf Urine WBC Clumps (None) /hpf Urine Bacteria (None) /hpf 06/26/23 06/26/23 06/26/23 Range/Units 02:32 02:32 02:32 WBC (3.8-10.6) k/uL RBC 3.28 L (4.30-5.90) m/uL Hgb 9.2 L (13.0-17.5) gm/dL Hct 29.5 L (39.0-53.0) % Neutrophils # 8.1 H (1.3-7.7) k/uL Carbon Dioxide (22-30) mmol/L BUN 108 H* (9-20) mg/dL Creatinine 5.12 H (0.66-1.25) mg/dL Glucose 252 H (74-99) mg/dL POC Glucose (mg/dL) (70-110) mg/dL Calcium 7.9 L (8.4-10.2) mg/dL Creatine Kinase (55-170) U/L Troponin I 0.060 H* (0.000-0.034) ng/mL Urine Protein (Negative) Urine Blood (Negative) Ur Leukocyte Esterase (Negative) Urine RBC (0-5) /hpf Urine WBC (0-5) /hpf Urine WBC Clumps (None) /hpf Urine Bacteria (None) /hpf 06/26/23 Range/Units 02:32 WBC (3.8-10.6) k/uL RBC (4.30-5.90) m/uL Hgb (13.0-17.5) gm/dL Hct (39.0-53.0) % Neutrophils # (1.3-7.7) k/uL Carbon Dioxide (22-30) mmol/L BUN (9-20) mg/dL Creatinine (0.66-1.25) mg/dL Glucose (74-99) mg/dL POC Glucose (mg/dL) (70-110) mg/dL Calcium (8.4-10.2) mg/dL Creatine Kinase 629 H (55-170) U/L Troponin I (0.000-0.034) ng/mL Urine Protein (Negative) Urine Blood (Negative) Ur Leukocyte Esterase (Negative) Urine RBC (0-5) /hpf Urine WBC (0-5) /hpf Urine WBC Clumps (None) /hpf Urine Bacteria (None) /hpf Thrombosis Risk Factor Assmnt - Choose All That Apply Each Risk Factor Represents 2 Points: Age 61-74 years Thrombosis Risk Factor Assessment Total Risk Factor Score: 2 Thrombosis Risk Factor Assessment Level: Low Risk Assessment and Plan Assessment: 1. Acute on chronic kidney disease; likely related to dehydration due to intravascular volume depletion resulting from poor oral intake with patient taking JAMAR inhibitor and Lasix on daily basis --Patient received IV fluid hydration in ED; received 3 L of IV fluid; patient started on a bicarb infusion at rate of 125 cc an hourwe will continue with IV fluid hydration; will monitor strict MAX's, daily weights, renal function electrolytes; avoid nephrotoxins and hypotension 2. UTI/sepsis; Rocephin 1 g IV daily; blood cultures and urine cultures were obtained and pending 3. Acute hypotension, post resuscitation with a total of 3 L of IV fluids and the patient is currently on low-dose norepinephrine 4. Troponin leak likely secondary to type II ischemia/systolic CHF Coronary artery disease, with history of previous PCI/stents to the RCA and LAD, most recent intervention done 10/17/22 Chronic systolic heart failure with an ejection fraction of 40 to 45% based on echocardiogram from May 2023 5. COPD/chronic hypoxic respiratory failure; in exacerbation; patient uses O2 at 2 L per nasal cannula at home; currently at baseline at 2 L 6. Peripheral arterial disease; s/p history of bilateral [id number] amputations 7. Atrial fibrillation; patient rate controlled on anticoagulated on Eliquis, current rhythm is sinus 8. Diabetes mellitus type 2, insulin-dependent; monitor Accu-Cheks before every meal and at bedtime with insulin sliding scale 9. Hypertension; patient takes Lasix and lisinopril at home; which have been placed on hold for hypotension 10. Morbid obesity, with a BMI of 52 kg/m 11. Stage I sacral decub ulcer; wound care DVT prophylaxis; SCDs/Eliquis CODE STATUS; full code
--- NOTE | 2023-06-26 14:00 | P.PN ---
Subjective Progress Note Date: 06/26/23 72-year-old female patient admitted to the intensive care because of altered mentation, acute kidney injury and hypotension. The patient came into the emergency department because of mental status change. The patient went to respite care for the past weekend. He returned home and his condition was alt ered. He was feeling weak and had a fall and possibly a head injury. His oral intake was quite diminished. He has a low urine output. In the emergency, the patient was found to be hypotensive. Given a total of 3 L of IV fluid and he continues to be hypotensive with a systolic blood pressure ranging between 70 and 80 and following that he was started on pressors and admitted to the intensive care unit. No nausea. No emesis. No chest pain. No focal neurological deficits. The patient was awake however alert and oriented x 2. Davidson catheter was inserted and the urine output was diminished and it was quite cloudy. UA was abnormal with many bacteria and white cells and a highly elevate d white cell count. Blood work showed a white cell count of 15.6 with a hemoglobin of 10.3. The electrolytes showed a BUN of 111 with a creatinine of 6.55 and a sodium level of 139 and a potassium level of 4.7. The patient has anion gap metabolic acidosis with a gap of 19 and a serum bicarb of 17. LFTs were normal. Troponin was 0.095. Coagulation profile was within normal limits. CAT scan of the brain and cervical spine showed no acute osseous abnormality involving the cervical spine and large anterior vertebral bodies. At the level of C5/C7. The chest x-ray revealed a right basilar pleural-parenchymal opacity and right-sided pleural effusion and this has been smaller in size compared to the chest x-ray from 05/28/2023. EKG showed normal sinus rhythm with LVH criteria and old Q waves involving the inferior leads. The patient is currently in the intensive care unit. His past medical history includes peripheral vascular disease and the patient has bilateral above-knee amputation. He is known to have COPD,chronic hypoxic respiratory failure and he is on home 02 at 5 liters/min, chronic A-fib, paroxysmal and coronary artery disease with previous PCI and stenting. He is known to have also diabetes mellitus type 2, hypertension hyperlipidemia and he has history of a right-sided pleural effusion that was noted on earlier chest x-rays. Most recent echocardiogram from May 2023 showed mild impairment of systolic function with an ejection fraction of 40 to 45%.. Home medications include an JAMAR inhibitor that include Zestril. Patient also takes Flomax for symptoms of BPH. No intake of any form of nonsteroidal anti-inflammatory medication. Most recent creatinine was at 1.35 from 05/28/23. General on today's evaluation of 06/26/2023, the patient is being seen for a follow-up. The patient is still confused. He does have underlying dementia and there may be also some metabolic encephalopathy. He is pleasantly confused. He is not seeing squirrels in his room. He is not oriented to place and time. He knows his name. As mentioned, the patient presented to us with an acute kidney injury and intravascular volume depletion. He was started on IV fluids. He was started on a bicarb infusion and patient shows to recovery his metabolic acidosis and the patient is currently on lactated Ringer at rate of 100 cc an hour. Remains on IV Rocephin. JAMAR inhibitors and diuretics have been discontinued. Ultrasound kidney shows no evidence of an hydronephrosis. BUN is down to 108 and the creatinine is down to 5.1. The urine output over the past 24 hours has been in the order of 1000 mL. The risk is at 10.3 with hemoglobin 9.2. Sodium is at 137 with a potassium level of 4.4. Troponins are 0.09 and 0.06 respectively. CPK level is 629. Urine cultures are still pending for now. The patient remains on 2 L of oxygen by nasal cannula with a pulse ox of 94%. No signs of any significant respiratory distress at this point in time. No focal neurological deficits. Objective - Vital Signs Vital signs: Vital Signs Temp 99.1 F 06/26/23 08:00 Pulse 75 06/26/23 10:00 Resp 16 06/26/23 10:00 BP 96/50 06/26/23 10:00 Pulse Ox 97 06/26/23 10:00 FiO2 Intake & Output 06/25/23 06/26/23 06/26/23 18:59 06:59 18:59 Intake Total 1332.228 450 Output Total 160 795 250 Balance -160 537.228 200 Weight 86.183 kg 86.183 kg Intake: IV 1175 250 Dextrose 5% in Water 1, 1125 250 000 ml @ 125 mls/hr IV . Q9H12M SINDHU with Sodium Bicarb (1 Meq/ml) 150 ml Rx#:[id number] cefTRIAXone 2 gm In 50 Sodium Chloride 0.9% 50 ml @ 100 mls/hr IVPB Q24H SINDHU Rx#:[id number] Intake, IV Titration 157.228 200 Amount Lactated Ringers 1,000 ml 200 @ 100 mls/hr IV .Q10H SINDHU Rx#:[id number] Norepinephrine 4 mg In 157.228 Sodium Chloride 0.9% 250 ml @ 0.05 MCG/KG/MIN 16. 418 mls/hr IV .Q63P58L SINDHU Rx#:[id number] Output: Urine 160 795 250 Uretheral (Davidson) 160 Other: Voiding Method Indwelling Catheter Indwelling Catheter - Exam GENERAL EXAM: Alert, pleasant 72-year-old male, resting comfortably in bed, Currently on 2 L of oxygen by nasal cannula. HEAD: Normocephalic. EYES: Normal reaction of pupils, equal size. NOSE: Clear with pink turbinates. THROAT: No erythema or exudates. NECK: No masses, no JVD. CHEST: No chest wall deformity. LUNGS: Equal air entry with crackles in the right base. Diminished breath sounds right lung base along with dullness to percussion. CVS: S1 and S2 normal with no audible murmur, regular rhythm. ABDOMEN: No hepatosplenomegaly, normal bowel sounds, no guarding or rigidity. SPINE: No scoliosis or deformity SKIN: No rashes, stage I sacral decub ulceration. CENTRAL NERVOUS SYSTEM: No focal deficits, tone is normal in all 4 extremities. Baseline confusion and alert and oriented x 1-2. EXTREMITIES: Bilateral [id number] amputee. - Labs CBC & Chem 7: 06/26/23 02:32 06/26/23 02:32 Labs: Abnormal Lab Results - Last 24 Hours (Table) 06/25/23 06/25/23 06/25/23 Range/Units 13:54 13:54 13:54 WBC 15.6 H (3.8-10.6) k/uL RBC 3.68 L (4.30-5.90) m/uL Hgb 10.3 L (13.0-17.5) gm/dL Hct 32.2 L (39.0-53.0) % Neutrophils # 13.0 H (1.3-7.7) k/uL Carbon Dioxide 17 L (22-30) mmol/L BUN 111 H* (9-20) mg/dL Creatinine 6.55 H (0.66-1.25) mg/dL Glucose 164 H (74-99) mg/dL POC Glucose (mg/dL) (70-110) mg/dL Calcium (8.4-10.2) mg/dL Creatine Kinase (55-170) U/L Troponin I (0.000-0.034) ng/mL Urine Protein Trace H (Negative) Urine Blood Moderate H (Negative) Ur Leukocyte Esterase Large H (Negative) Urine RBC >182 H (0-5) /hpf Urine WBC >182 H (0-5) /hpf Urine WBC Clumps Many H (None) /hpf Urine Bacteria Many H (None) /hpf 06/25/23 06/25/23 06/25/23 Range/Units 13:54 14:01 20:47 WBC (3.8-10.6) k/uL RBC (4.30-5.90) m/uL Hgb (13.0-17.5) gm/dL Hct (39.0-53.0) % Neutrophils # (1.3-7.7) k/uL Carbon Dioxide (22-30) mmol/L BUN (9-20) mg/dL Creatinine (0.66-1.25) mg/dL Glucose (74-99) mg/dL POC Glucose (mg/dL) 170 H 254 H (70-110) mg/dL Calcium (8.4-10.2) mg/dL Creatine Kinase (55-170) U/L Troponin I 0.095 H* (0.000-0.034) ng/mL Urine Protein (Negative) Urine Blood (Negative) Ur Leukocyte Esterase (Negative) Urine RBC (0-5) /hpf Urine WBC (0-5) /hpf Urine WBC Clumps (None) /hpf Urine Bacteria (None) /hpf 06/26/23 06/26/23 06/26/23 Range/Units 02:32 02:32 02:32 WBC (3.8-10.6) k/uL RBC 3.28 L (4.30-5.90) m/uL Hgb 9.2 L (13.0-17.5) gm/dL Hct 29.5 L (39.0-53.0) % Neutrophils # 8.1 H (1.3-7.7) k/uL Carbon Dioxide (22-30) mmol/L BUN 108 H* (9-20) mg/dL Creatinine 5.12 H (0.66-1.25) mg/dL Glucose 252 H (74-99) mg/dL POC Glucose (mg/dL) (70-110) mg/dL Calcium 7.9 L (8.4-10.2) mg/dL Creatine Kinase (55-170) U/L Troponin I 0.060 H* (0.000-0.034) ng/mL Urine Protein (Negative) Urine Blood (Negative) Ur Leukocyte Esterase (Negative) Urine RBC (0-5) /hpf Urine WBC (0-5) /hpf Urine WBC Clumps (None) /hpf Urine Bacteria (None) /hpf 06/26/23 Range/Units 02:32 WBC (3.8-10.6) k/uL RBC (4.30-5.90) m/uL Hgb (13.0-17.5) gm/dL Hct (39.0-53.0) % Neutrophils # (1.3-7.7) k/uL Carbon Dioxide (22-30) mmol/L BUN (9-20) mg/dL Creatinine (0.66-1.25) mg/dL Glucose (74-99) mg/dL POC Glucose (mg/dL) (70-110) mg/dL Calcium (8.4-10.2) mg/dL Creatine Kinase 629 H (55-170) U/L Troponin I (0.000-0.034) ng/mL Urine Protein (Negative) Urine Blood (Negative) Ur Leukocyte Esterase (Negative) Urine RBC (0-5) /hpf Urine WBC (0-5) /hpf Urine WBC Clumps (None) /hpf Urine Bacteria (None) /hpf Assessment and Plan Plan: Acute on top of chronic kidney injury. Consider underlying urine tract infection/sepsis. Patient is intravascularly depleted with diminished oral intake and the patient has been taking a JAMAR inhibitor and lasix on outpatient basis. The patient is being resuscitated IV fluids. No evidence of any hydronephrosis. There may be underlying urine tract infection. Creatinine is improving. Urine output is also improving. Nephrology on the case. Altered mental status likely secondary to underlying sepsis/metabolic encephalopathy induced by an acute kidney injury and electrolyte disturbances. CAT scan of the brain was essentially negative for any acute process Acute hypotension, post resuscitation with a total of 3 L of IV fluids and the patient is currently off pressors and the patient has been off pressors since 4:00 this morning. Acute urinary tract infection, likely underlying sepsis Chronic hypoxic respiratory failure and the patient is currently on 2 L of oxygen by nasal cannula Chronic systolic heart failure with an ejection fraction of 40 to 45% based on echocardiogram from May 2023 Right-sided pleural effusion secondary to above status post thoracentesis on 05/26/2023, exudate on the protein criteria and bloody with elevated RBC count and cytology was essentially negative for malignancy. A total of 2 L of fluid was aspirated and a previous thoracentesis was done on 05/26/2023. Chest x-ray shows recurrence of residual right-sided pleural effusion. Coronary artery disease, with history of previous PCI/stents to the RCA and LAD, most recent intervention done 10/17/22 Troponin leak likely secondary to type II ischemia Peripheral vascular disease, with history of bilateral [id number]-[id number] amput ations Former tobacco dependence Chronic obstructive pulmonary disease, stable Chronic hypoxemic respiratory failure, normally maintained on 2 to 3 L nasal cannula History of atrial fibrillation, anticoagulated on Eliquis, current rhythm is sinus Anemia of chronic disease Diabetes mellitus type 2, insulin-dependent Hypertension Hyperlipidemia Morbid obesity, with a BMI of 52 kg/m Stage I sacral decub ulcer Plan Oxygen 2 L/min nasal cannula Patient will be started on lactated Ringer at a rate of 100 cc an hour. IV Rocephin given in the emergency and this will be continued Urine cultures Blood cultures Ultrasound of the kidneys shows no evidence of any hydronephrosis Nephrology consultation appreciated CPK levels are minimally elevated Davidson catheter is in place Continue norepinephrine to support patient's blood pressure. Keep the mean arterial pressure above 65 Avoid nephrotoxic agents Stop JAMAR inhibitors Will continue to follow
[2023-06-26] MEDS ORDERED: SENNOSIDES 8.6 MG TAB PO PRN (14:57)
[2023-06-26 16:08] LABS: Glucose,Whole Blood 156 mg/dL (70-110)
[2023-06-26 20:32] LABS: Glucose,Whole Blood 145 mg/dL (70-110)
[2023-06-27] MEDS ORDERED: QUEtiapine 25 MG TAB PO STA (00:10)
[2023-06-27] MEDS: QUEtiapine 25 MG TAB PO STA (00:22)
[2023-06-27 06:37] LABS: Glucose,Whole Blood 109 mg/dL (70-110)
[2023-06-27 07:38] LABS: African American GFR (CKD) 32 (>60 ml/min/1.73 sqM); Anion Gap 10 mmol/L; Blood Urea Nitrogen 78 mg/dL (9-20); Calcium 8.4 mg/dL (8.4-10.2); Carbon Dioxide 26 mmol/L (22-30); Chloride 107 mmol/L (98-107); Glucose 109 mg/dL (74-99); Magnesium 1.7 mg/dL (1.6-2.3); Non-African American GFR(CKD) 28 (>60 ml/min/1.73 sqM); Potassium 3.4 mmol/L (3.5-5.1); Sodium 143 mmol/L (137-145)
[2023-06-27] MEDS: POTASSIUM CHLORIDE ER 20 MEQ TAB.ER PO STA (09:20)
[2023-06-27] MEDS: MAGNESIUM SULFATE-D5W PMX 1 GM in DEXTROSE/WATER 1 100ML.BAG IVPB ONE (09:20)
--- NOTE | 2023-06-27 09:41 | P.PN ---
Subjective Patient is seen in follow-up for acute kidney injury on chronic kidney disease. Renal function improving. Nonoliguric. On IV fluids. Oral intake fair. Sitter present at bedside. Vital signs are stable. General: No acute distress. HEENT: Head exam is unremarkable. LUNGS: No audible rhonchi or wheezes. HEART: Rate and Rhythm are regular. ABDOMEN: Nontender. EXTREMITITES: Lower extremity amputations noted. Objective - Vital Signs Vital signs: Vital Signs Temp 101 F H 06/27/23 04:00 Pulse 50 L 06/27/23 08:15 Resp 30 H 06/27/23 04:00 BP 158/78 06/27/23 04:00 Pulse Ox 94 L 06/27/23 04:00 FiO2 Intake & Output 06/26/23 06/27/23 06/27/23 18:59 06:59 18:59 Intake Total 850 800 100 Output Total 650 2650 350 Balance 200 -1850 -250 Weight 86.183 kg Intake: IV 250 Dextrose 5% in Water 1, 250 000 ml @ 125 mls/hr IV . Q9H12M SINDHU with Sodium Bicarb (1 Meq/ml) 150 ml Rx#:[id number] Intake, IV Titration 600 800 100 Amount Lactated Ringers 1,000 ml 600 800 100 @ 100 mls/hr IV .Q10H SINDHU Rx#:[id number] Output: Urine 650 2650 350 Other: Voiding Method Indwelling Catheter Indwelling Catheter - Labs CBC & Chem 7: 06/26/23 02:32 06/27/23 07:03 Labs: Abnormal Lab Results - Last 24 Hours (Table) 06/26/23 06/26/23 06/26/23 Range/Units 11:54 16:04 20:31 Potassium (3.5-5.1) mmol/L BUN (9-20) mg/dL Creatinine (0.66-1.25) mg/dL Glucose (74-99) mg/dL POC Glucose (mg/dL) 160 H 156 H 145 H (70-110) mg/dL 06/27/23 Range/Units 07:03 Potassium 3.4 L (3.5-5.1) mmol/L BUN 78 H (9-20) mg/dL Creatinine 2.28 H (0.66-1.25) mg/dL Glucose 109 H (74-99) mg/dL POC Glucose (mg/dL) (70-110) mg/dL Microbiology - Last 24 Hours (Table) 06/25/23 14:00 Blood Culture - Preliminary Blood 06/25/23 14:20 Blood Culture - Preliminary Blood Assessment and Plan Plan: Assessment: 1. Acute kidney injury secondary to ATN secondary to hypotension/shock. Creatinine 6.55 on admission and is 2.28 today. No hydronephrosis noted on kidney ultrasound. 2. Chronic kidney disease stage IIIa with baseline creatinine 1.2-1.3 secondary to nephrosclerosis. 3. Metabolic acidosis secondary to acute kidney injury improved with bicarb drip. 4. UTI maintained on antibiotics. 5. Chronic systolic CHF ejection fraction of 45 to 50%. 6. Diabetes mellitus. 7. Hypokalemia from poor intake and post ATN diuresis. Being replaced. Plan: Maintain IV fluids. Avoid nephrotoxins. Continue to monitor renal function and urine output. Replace electrolytes as needed.
[2023-06-27 11:10] LABS: Glucose,Whole Blood 231 mg/dL (70-110)
[2023-06-27] MEDS: HALOPERIDOL ORAL SOLN 10 MG/5 ML CUP PO PRN (12:09)
--- NOTE | 2023-06-27 13:01 | P.PN ---
Subjective Progress Note Date: 06/27/23 The patient is a 72-year-old male who follows in the office with Dr. Starks. He is currently admitted status post mechanical fall and rhabdomyolysis. Cardiology was consulted for arrhythmia as well as elevated troponins. Patient was interviewed and examined resting comfortably in bed. He is more alert today. He denies any chest pain or difficulty breathing. GENERAL: Well-appearing, well-nourished and in no acute distress. NECK: Supple without JVD or thyromegaly. LUNGS: Breath sounds clear to auscultation bilaterally. Respiration equal and unlabored. No wheezes, rales or rhonchi. HEART: Regular rate and rhythm without murmurs, rubs or gallops. S1 and S2 heard. EXTREMITIES: Bilateral mzkml-weo-kzli amputee TELEMETRY: Sinus rhythm overnight IMPRESSION: Persistent atrial fibrillation, rate controlled Elevated troponins, type II myocardial infarction Acute on chronic kidney injury Rhabdomyolysis Metabolic encephalopathy Urinary tract infection History of CAD History of heart failure, last EF 45 to 50% Diabetes Morbid obesity PLAN: Continue supportive treatment Aggressive pulmonary hygiene Outpatient follow-up with primary commercial attache for ischemia workup Further recommendations to be based upon clinical course I am dictating on behalf of Dr Navjot Cruz's history/physical and assess ment/plan. Objective - Vital Signs Vital signs: Vital Signs Temp 98.9 F 06/27/23 12:00 Pulse 78 06/27/23 12:00 Resp 19 06/27/23 12:00 BP 152/78 06/27/23 12:00 Pulse Ox 99 06/27/23 12:00 FiO2 Intake & Output 06/26/23 06/27/23 06/27/23 18:59 06:59 18:59 Intake Total 850 800 100 Output Total 650 2650 350 Balance 200 -1850 -250 Weight 86.183 kg Intake: IV 250 Dextrose 5% in Water 1, 250 000 ml @ 125 mls/hr IV . Q9H12M SINDHU with Sodium Bicarb (1 Meq/ml) 150 ml Rx#:[id number] Intake, IV Titration 600 800 100 Amount Lactated Ringers 1,000 ml 600 800 100 @ 100 mls/hr IV .Q10H SINDHU Rx#:[id number] Output: Urine 650 2650 350 Other: Voiding Method Indwelling Catheter Indwelling Catheter Indwelling Catheter - Labs CBC & Chem 7: 06/26/23 02:32 06/27/23 07:03 Labs: Abnormal Lab Results - Last 24 Hours (Table) 06/26/23 06/26/23 06/27/23 Range/Units 16:04 20:31 07:03 Potassium 3.4 L (3.5-5.1) mmol/L BUN 78 H (9-20) mg/dL Creatinine 2.28 H (0.66-1.25) mg/dL Glucose 109 H (74-99) mg/dL POC Glucose (mg/dL) 156 H 145 H (70-110) mg/dL 06/27/23 Range/Units 11:09 Potassium (3.5-5.1) mmol/L BUN (9-20) mg/dL Creatinine (0.66-1.25) mg/dL Glucose (74-99) mg/dL POC Glucose (mg/dL) 231 H (70-110) mg/dL Microbiology - Last 24 Hours (Table) 06/25/23 14:00 Blood Culture - Preliminary Blood 06/25/23 14:20 Blood Culture - Preliminary Blood
--- NOTE | 2023-06-27 14:24 | P.PN ---
Subjective Progress Note Date: 06/27/23 72-year-old female patient admitted to the intensive care because of altered mentation, acute kidney injury and hypotension. The patient came into the emergency department because of mental status change. The patient went to respite care for the past weekend. He returned home and his condition was alt ered. He was feeling weak and had a fall and possibly a head injury. His oral intake was quite diminished. He has a low urine output. In the emergency, the patient was found to be hypotensive. Given a total of 3 L of IV fluid and he continues to be hypotensive with a systolic blood pressure ranging between 70 and 80 and following that he was started on pressors and admitted to the intensive care unit. No nausea. No emesis. No chest pain. No focal neurological deficits. The patient was awake however alert and oriented x 2. Davidson catheter was inserted and the urine output was diminished and it was quite cloudy. UA was abnormal with many bacteria and white cells and a highly elevate d white cell count. Blood work showed a white cell count of 15.6 with a hemoglobin of 10.3. The electrolytes showed a BUN of 111 with a creatinine of 6.55 and a sodium level of 139 and a potassium level of 4.7. The patient has anion gap metabolic acidosis with a gap of 19 and a serum bicarb of 17. LFTs were normal. Troponin was 0.095. Coagulation profile was within normal limits. CAT scan of the brain and cervical spine showed no acute osseous abnormality involving the cervical spine and large anterior vertebral bodies. At the level of C5/C7. The chest x-ray revealed a right basilar pleural-parenchymal opacity and right-sided pleural effusion and this has been smaller in size compared to the chest x-ray from 05/28/2023. EKG showed normal sinus rhythm with LVH criteria and old Q waves involving the inferior leads. The patient is currently in the intensive care unit. His past medical history includes peripheral vascular disease and the patient has bilateral above-knee amputation. He is known to have COPD,chronic hypoxic respiratory failure and he is on home 02 at 5 liters/min, chronic A-fib, paroxysmal and coronary artery disease with previous PCI and stenting. He is known to have also diabetes mellitus type 2, hypertension hyperlipidemia and he has history of a right-sided pleural effusion that was noted on earlier chest x-rays. Most recent echocardiogram from May 2023 showed mild impairment of systolic function with an ejection fraction of 40 to 45%.. Home medications include an JAMAR inhibitor that include Zestril. Patient also takes Flomax for symptoms of BPH. No intake of any form of nonsteroidal anti-inflammatory medication. Most recent creatinine was at 1.35 from 05/28/23. General on today's evaluation of 06/26/2023, the patient is being seen for a follow-up. The patient is still confused. He does have underlying dementia and there may be also some metabolic encephalopathy. He is pleasantly confused. He is not seeing squirrels in his room. He is not oriented to place and time. He knows his name. As mentioned, the patient presented to us with an acute kidney injury and intravascular volume depletion. He was started on IV fluids. He was started on a bicarb infusion and patient shows to recovery his metabolic acidosis and the patient is currently on lactated Ringer at rate of 100 cc an hour. Remains on IV Rocephin. JAMAR inhibitors and diuretics have been discontinued. Ultrasound kidney shows no evidence of an hydronephrosis. BUN is down to 108 and the creatinine is down to 5.1. The urine output over the past 24 hours has been in the order of 1000 mL. The risk is at 10.3 with hemoglobin 9.2. Sodium is at 137 with a potassium level of 4.4. Troponins are 0.09 and 0.06 respectively. CPK level is 629. Urine cultures are still pending for now. The patient remains on 2 L of oxygen by nasal cannula with a pulse ox of 94%. No signs of any significant respiratory distress at this point in time. No focal neurological deficits. On today's evaluation of 06/27/2023, the patient is being seen for a follow-up. The patient remains confused and the patient has baseline dementia. No agitation. There is a sitter at the bedside. Haldol will be restarted. Meanwhile, the patient continues to improve in terms of his acute kidney injury. The patient is responding to IV fluids. The creatinine is down to 2.28 with a BUN of 78. Rest of the electrolytes show a low potassium level of 3.4 which will be replaced. Sodium levels at 143. CBC from today still pending. Davidson catheter still in place. The patient was started on IV Rocephin regarding the possibility of underlying urine tract infection. Culture still pending for now. No other significant vents over the past 24 hours. Patient remains on room air oxygen with a pulse ox of 99%. Objective - Vital Signs Vital signs: Vital Signs Temp 101 F H 06/27/23 04:00 Pulse 50 L 06/27/23 08:15 Resp 30 H 06/27/23 04:00 BP 158/78 06/27/23 04:00 Pulse Ox 94 L 06/27/23 04:00 FiO2 Intake & Output 06/26/23 06/27/23 06/27/23 18:59 06:59 18:59 Intake Total 850 800 100 Output Total 650 2650 350 Balance 200 -1850 -250 Weight 86.183 kg Intake: IV 250 Dextrose 5% in Water 1, 250 000 ml @ 125 mls/hr IV . Q9H12M [facility] with Sodium Bicarb (1 Meq/ml) 150 ml Rx#:[id number] Intake, IV Titration 600 800 100 Amount Lactated Ringers 1,000 ml 600 800 100 @ 100 mls/hr IV .Q10H [facility] Rx#:[id number] Output: Urine 650 2650 350 Other: Voiding Method Indwelling Catheter Indwelling Catheter - Exam GENERAL EXAM: Alert, pleasant 72-year-old male, resting comfortably in bed, Currently on room air oxygen. HEAD: Normocephalic. EYES: Normal reaction of pupils, equal size. NOSE: Clear with pink turbinates. THROAT: No erythema or exudates. NECK: No masses, no JVD. CHEST: No chest wall deformity. LUNGS: Equal air entry with crackles in the right base. Diminished breath sounds right lung base along with dullness to percussion. CVS: S1 and S2 normal with no audible murmur, regular rhythm. ABDOMEN: No hepatosplenomegaly, normal bowel sounds, no guarding or rigidity. SPINE: No scoliosis or deformity SKIN: No rashes, stage I sacral decub ulceration. CENTRAL NERVOUS SYSTEM: No focal deficits, tone is normal in all 4 extremities. Baseline confusion and alert and oriented x 1-2. EXTREMITIES: Bilateral lfxbz-qjw-diot amputee. - Labs CBC & Chem 7: 06/26/23 02:32 06/27/23 07:03 Labs: Abnormal Lab Results - Last 24 Hours (Table) 06/26/23 06/26/23 06/26/23 Range/Units 11:54 16:04 20:31 Potassium (3.5-5.1) mmol/L BUN (9-20) mg/dL Creatinine (0.66-1.25) mg/dL Glucose (74-99) mg/dL POC Glucose (mg/dL) 160 H 156 H 145 H (70-110) mg/dL 06/27/23 Range/Units 07:03 Potassium 3.4 L (3.5-5.1) mmol/L BUN 78 H (9-20) mg/dL Creatinine 2.28 H (0.66-1.25) mg/dL Glucose 109 H (74-99) mg/dL POC Glucose (mg/dL) (70-110) mg/dL Microbiology - Last 24 Hours (Table) 06/25/23 14:00 Blood Culture - Preliminary Blood 06/25/23 14:20 Blood Culture - Preliminary Blood Assessment and Plan Plan: Acute on top of chronic kidney injury. Consider underlying urine tract infection/sepsis. Patient is intravascularly depleted with diminished oral intake and the patient has been taking a JAMAR inhibitor and lasix on outpatient basis. The patient is being resuscitated IV fluids. No evidence of any hydronephrosis. Renal function continues to improve. Patient is producing adequate amount of urine output. Altered mental status likely secondary to underlying sepsis/metabolic encephalopathy induced by an acute kidney injury and electrolyte disturbances. CAT scan of the brain was essentially negative for any acute process. Noted the patient does have underlying dementia. As such, the confusion and altered menta tion cannot be completely acute and some of it is probably chronic. Acute hypotension, post resuscitation fluids and pressors and the patient is currently off pressors. Acute urinary tract infection, likely underlying sepsis, currently on Rocephin Chronic hypoxic respiratory failure and the patient is currently on room air oxygen Chronic systolic heart failure with an ejection fraction of 40 to 45% based on echocardiogram from May 2023 Right-sided pleural effusion secondary to above status post thoracentesis on 05/26/2023, exudate on the protein criteria and bloody with elevated RBC count and cytology was essentially negative for malignancy. A total of 2 L of fluid was aspirated and a previous thoracentesis was done on 05/26/2023. Chest x-ray shows recurrence of residual right-sided pleural effusion. Coronary artery disease, with history of previous PCI/stents to the RCA and LAD, most recent intervention done 10/17/22 Troponin leak likely secondary to type II ischemia Peripheral vascular disease, with history of bilateral kqnqm-vje-rndk amputations Former tobacco dependence Chronic obstructive pulmonary disease, stable Chronic hypoxemic respiratory failure, normally maintained on 2 to 3 L nasal cannula History of atrial fibrillation, anticoagulated on Eliquis, current rhythm is sinus Anemia of chronic disease Diabetes mellitus type 2, insulin-dependent Hypertension Hyperlipidemia Morbid obesity, with a BMI of 52 kg/m Stage I sacral decub ulcer Plan Patient currently on room air oxygen. Patient will be started on lactated Ringer at a rate of 100 cc an hour. IV Rocephin given in the emergency and this will be continued Urine cultures Blood cultures Ultrasound of the kidneys shows no evidence of any hydronephrosis Nephrology consultation appreciated CPK levels are minimally elevated Davidson catheter is in place patient is currently off pressors Avoid nephrotoxic agents Stop JAMAR inhibitors Will continue to follow, may be transferred to medical floor with bedside sitter Will restart Haldol to be utilized on an as-needed basis.
--- NOTE | 2023-06-27 15:06 | P.PN ---
Subjective Progress Note Date: 06/27/23 72-year-old male with past medical history of diabetes, dementia who presents to the emergency department for altered mental status. The patient went to respite care this past weekend. When he returned home and the patient was not his normal self. It was reported that the patient had a fall with possible head injury however was never sent in for evaluation. Patient has not been eating or drinking much. He has low urine output. Patient does have Davidson catheter in place. Patient is alert and oriented x 2. Patient arrives hypotensive. No reported fevers. He does have some bruising noted to his lower abdomen. No signs of head injury appreciated. Patient denies any pain. He does wear 2-4 L of oxygen at all times. No other alleviating, precipitating modifying factors UA was abnormal with many bacteria and white cells and a highly elevated white cell count. Blood work showed a white cell count of 15.6 with a hemoglobin of 10.3. The electrolytes showed a BUN of 111 with a creatinine of 6.55 and a sodium level of 139 and a potassium level of 4.7. The patient has anion gap metabolic acidosis with a gap of 19 and a serum bicarb of 17. LFTs were normal. Troponin was 0.095. Coagulation profile was within normal limits. CAT scan of the brain and cervical spine showed no acute osseous abnormality involving the cervical spine and large anterior vertebral bodies. At the level of C5/C7. The chest x-ray revealed a right basilar pleural-parenchymal opacity and right- sided pleural effusion and this has been smaller in size compared to the chest x-ray from 05/28/2023. EKG showed normal sinus rhythm with LVH criteria and old Q waves involving the inferior leads. Objective - Vital Signs Vital signs: Vital Signs Temp 101 F H 06/27/23 04:00 Pulse 50 L 06/27/23 08:15 Resp 30 H 06/27/23 04:00 BP 158/78 06/27/23 04:00 Pulse Ox 94 L 06/27/23 04:00 FiO2 Intake & Output 06/26/23 06/27/23 06/27/23 18:59 06:59 18:59 Intake Total 850 800 100 Output Total 650 2650 350 Balance 200 -1850 -250 Weight 86.183 kg Intake: IV 250 Dextrose 5% in Water 1, 250 000 ml @ 125 mls/hr IV . Q9H12M [facility] with Sodium Bicarb (1 Meq/ml) 150 ml Rx#:[id number] Intake, IV Titration 600 800 100 Amount Lactated Ringers 1,000 ml 600 800 100 @ 100 mls/hr IV .Q10H [facility] Rx#:[id number] Output: Urine 650 2650 350 Other: Voiding Method Indwelling Catheter Indwelling Catheter - Exam GENERAL EXAM: Alert, pleasant 72-year-old male, resting comfortably in bed, Cu rrently on 2 L of oxygen by nasal cannula. Sitter at bedside HEAD: Normocephalic. EYES: Normal reaction of pupils, equal size. NECK: No masses, no JVD. CHEST: No chest wall deformity. LUNGS: Equal air entry with crackles in the right base. Diminished breath sounds right lung base along with dullness to percussion. CVS: S1 and S2 normal with no audible murmur, regular rhythm. ABDOMEN: No hepatosplenomegaly, normal bowel sounds, no guarding or rigidity. SPINE: No scoliosis or deformity SKIN: No rashes, stage I sacral decub ulceration. CENTRAL NERVOUS SYSTEM: No focal deficits, tone is normal in all 4 extremities. Baseline confusion and alert and oriented x 1-2. EXTREMITIES: Bilateral augwi-bcy-cyzp amputee. - Labs CBC & Chem 7: 06/26/23 02:32 06/27/23 07:03 Labs: Abnormal Lab Results - Last 24 Hours (Table) 06/26/23 06/26/23 06/26/23 Range/Units 11:54 16:04 20:31 Potassium (3.5-5.1) mmol/L BUN (9-20) mg/dL Creatinine (0.66-1.25) mg/dL Glucose (74-99) mg/dL POC Glucose (mg/dL) 160 H 156 H 145 H (70-110) mg/dL 06/27/23 Range/Units 07:03 Potassium 3.4 L (3.5-5.1) mmol/L BUN 78 H (9-20) mg/dL Creatinine 2.28 H (0.66-1.25) mg/dL Glucose 109 H (74-99) mg/dL POC Glucose (mg/dL) (70-110) mg/dL Microbiology - Last 24 Hours (Table) 06/25/23 14:00 Blood Culture - Preliminary Blood 06/25/23 14:20 Blood Culture - Preliminary Blood Assessment and Plan Assessment: 1. Acute on chronic kidney disease; likely related to dehydration due to intravascular volume depletion resulting from poor oral intake with patient taking JAMAR inhibitor and Lasix on daily basis --Patient received IV fluid hydration in ED; received 3 L of IV fluid; patient started on a bicarb infusion at rate of 125 cc an hourwe will continue with IV fluid hydration; will monitor strict MAX's, daily weights, renal function electrolytes; avoid nephrotoxins and hypotension 2. UTI/sepsis; Rocephin 1 g IV daily; blood cultures and urine cultures were obtained and pending 3. Acute hypotension, post resuscitation with a total of 3 L of IV fluids and the patient is currently on low-dose norepinephrine 4. Troponin leak likely secondary to type II ischemia/systolic CHF Coronary artery disease, with history of previous PCI/stents to the RCA and LAD, most recent intervention done 10/17/22 Chronic systolic heart failure with an ejection fraction of 40 to 45% based on echocardiogram from May 2023 5. COPD/chronic hypoxic respiratory failure; in exacerbation; patient uses O2 at 2 L per nasal cannula at home; currently at baseline at 2 L 6. Peripheral arterial disease; s/p history of bilateral dxfup-wiw-qcqf amputations 7. Atrial fibrillation; patient rate controlled on anticoagulated on Eliquis, current rhythm is sinus 8. Diabetes mellitus type 2, insulin-dependent; monitor Accu-Cheks before every meal and at bedtime with insulin sliding scale 9. Hypertension; patient takes Lasix and lisinopril at home; which have been placed on hold for hypotension 10. Morbid obesity, with a BMI of 52 kg/m 11. Stage I sacral decub ulcer; wound care DVT prophylaxis; SCDs/Eliquis CODE STATUS; full code
[2023-06-27] MEDS: LORazepam 0.5 MG TAB PO PRN (15:43)
[2023-06-27 16:28] LABS: Glucose,Whole Blood 114 mg/dL (70-110)
[2023-06-27] MEDS: traZODone HCL 50 MG TAB PO SCH (20:20)
[2023-06-27] MEDS: HALOPERIDOL LACTATE 5 MG/ML 1 ML VIAL IM PRN (21:27)
[2023-06-27 21:43] LABS: Glucose,Whole Blood 190 mg/dL (70-110)
[2023-06-28] MEDS: hydrALAZINE HCL 20 MG/ML 1 ML VIAL IVP PRN (01:20)
[2023-06-28 05:53] LABS: Basophils % (A) 0 %; Eosinophils % (A) 0 %; HCT 29.7 % (39.0-53.0); HGB 9.5 gm/dL (13.0-17.5); Lymphocytes # (A) 0.8 k/uL (1.0-4.8); Lymphocytes % (A) 11 %; MCH 27.6 pg (25.0-35.0); MCHC 31.9 g/dL (31.0-37.0); MCV 86.7 fL (80.0-100.0); Mean Platelet Volume 8.7; Monocytes # (A) 0.5 k/uL (0-1.0); Monocytes % (A) 7 %; Neutrophils # (A) 6.3 k/uL (1.3-7.7); Neutrophils % (A) 81 %; Platelet Count 282 k/uL (150-450); RBC 3.43 m/uL (4.30-5.90); RDW 15.3 % (11.5-15.5); WBC 7.7 k/uL (3.8-10.6)
[2023-06-28 06:07] LABS: African American GFR (CKD) 58 (>60 ml/min/1.73 sqM); Anion Gap 10 mmol/L; Blood Urea Nitrogen 43 mg/dL (9-20); Calcium 8.9 mg/dL (8.4-10.2); Carbon Dioxide 22 mmol/L (22-30); Chloride 112 mmol/L (98-107); Glucose 194 mg/dL (74-99); Non-African American GFR(CKD) 50 (>60 ml/min/1.73 sqM); Potassium 3.6 mmol/L (3.5-5.1); Sodium 144 mmol/L (137-145)
[2023-06-28 06:38] LABS: Glucose,Whole Blood 201 mg/dL (70-110)
[2023-06-28] MEDS ORDERED: ZINC OXIDE PASTE (Z-GUARD) 1 APPLIC TOPICAL PRN (08:39)
--- NOTE | 2023-06-28 09:39 | P.PN ---
Subjective Progress Note Date: 06/28/23 The patient is a 72-year-old male who follows in the office with Dr. Starks. He is currently admitted status post mechanical fall and rhabdomyolysis. Cardiology was consulted for arrhythmia as well as elevated troponins. Patient was interviewed and examined resting comfortably in bed. He is more alert today. He denies any chest pain or difficulty breathing. Patient is seen today on the cardiac stepdown unit. Blood pressure remains elevated 161/67, heart rate is in the 80s, pulse ox 98% on room air. Hemoglobin is 9.5. Kidney function is improving with BUN of 43 creatinine 1.43. GENERAL: Well-appearing, well-nourished and in no acute distress. NECK: Supple without JVD or thyromegaly. LUNGS: Breath sounds clear to auscultation bilaterally. Respiration equal and unlabored. No wheezes, rales or rhonchi. HEART: Regular rate and rhythm without murmurs, rubs or gallops. S1 and S2 heard. EXTREMITIES: Bilateral qwweu-juc-igxs amputee TELEMETRY: Sinus rhythm overnight IMPRESSION: Persistent atrial fibrillation, rate controlled Elevated troponins, type II myocardial infarction Acute on chronic kidney injury Rhabdomyolysis Metabolic encephalopathy Urinary tract infection History of CAD History of heart failure, last EF 45 to 50% Diabetes Dementia Obesity PLAN: Continue supportive treatment Aggressive pulmonary hygiene Add amlodipine 5 mg daily for blood pressure control Outpatient follow-up with primary residence manager for ischemia workup Further recommendations to be based upon clinical course Nurse practitioner note has been reviewed, I agree with documented findings and plan of care. Patient was seen and examined. Objective - Vital Signs Vital signs: Vital Signs Temp 97.8 F 06/28/23 07:49 Pulse 80 06/28/23 09:03 Resp 16 06/28/23 07:49 BP 161/67 06/28/23 07:49 Pulse Ox 98 06/28/23 07:49 FiO2 Intake & Output 06/27/23 06/28/23 06/28/23 18:59 06:59 18:59 Intake Total 1600 Output Total 1850 1850 Balance -250 -1850 Weight 96 kg Intake: IV 1000 Lactated Ringers 1,000 ml 1000 @ 100 mls/hr IV .Q10H [facility] Rx#:[id number] Intake, IV Titration 100 Amount Lactated Ringers 1,000 ml 100 @ 100 mls/hr IV .Q10H [facility] Rx#:[id number] Oral 500 Output: Urine 1850 1850 Other: Voiding Method Indwelling Catheter Indwelling Catheter Indwelling Catheter - Labs CBC & Chem 7: 06/28/23 05:32 06/28/23 05:32 Labs: Abnormal Lab Results - Last 24 Hours (Table) 06/27/23 06/27/23 06/27/23 Range/Units 11:09 16:26 21:41 RBC (4.30-5.90) m/uL Hgb (13.0-17.5) gm/dL Hct (39.0-53.0) % Lymphocytes # (1.0-4.8) k/uL Chloride (98-107) mmol/L BUN (9-20) mg/dL Creatinine (0.66-1.25) mg/dL Glucose (74-99) mg/dL POC Glucose (mg/dL) 231 H 114 H 190 H (70-110) mg/dL 06/28/23 06/28/23 06/28/23 Range/Units 05:32 05:32 06:36 RBC 3.43 L (4.30-5.90) m/uL Hgb 9.5 L (13.0-17.5) gm/dL Hct 29.7 L (39.0-53.0) % Lymphocytes # 0.8 L (1.0-4.8) k/uL Chloride 112 H (98-107) mmol/L BUN 43 H (9-20) mg/dL Creatinine 1.42 H (0.66-1.25) mg/dL Glucose 194 H (74-99) mg/dL POC Glucose (mg/dL) 201 H (70-110) mg/dL Microbiology - Last 24 Hours (Table) 06/25/23 14:00 Blood Culture - Preliminary Blood 06/25/23 14:20 Blood Culture - Preliminary Blood
--- NOTE | 2023-06-28 10:13 | P.PN ---
Subjective Patient is seen in follow-up for acute kidney injury on chronic kidney disease. Renal function improving. Nonoliguric. On IV fluids. Oral intake fair. Now transferred out of ICU. Vital signs are stable. General: No acute distress. HEENT: Head exam is unremarkable. LUNGS: No audible rhonchi or wheezes. HEART: Rate and Rhythm are regular. ABDOMEN: Nontender. EXTREMITITES: Lower extremity amputations noted. Objective - Vital Signs Vital signs: Vital Signs Temp 97.8 F 06/28/23 07:49 Pulse 80 06/28/23 09:03 Resp 16 06/28/23 07:49 BP 161/67 06/28/23 07:49 Pulse Ox 98 06/28/23 07:49 FiO2 Intake & Output 06/27/23 06/28/23 06/28/23 18:59 06:59 18:59 Intake Total 1600 Output Total 1850 1850 Balance -250 -1850 Weight 96 kg Intake: IV 1000 Lactated Ringers 1,000 ml 1000 @ 100 mls/hr IV .Q10H [facility] Rx#:[id number] Intake, IV Titration 100 Amount Lactated Ringers 1,000 ml 100 @ 100 mls/hr IV .Q10H [facility] Rx#:[id number] Oral 500 Output: Urine 1850 1850 Other: Voiding Method Indwelling Catheter Indwelling Catheter Indwelling Catheter - Labs CBC & Chem 7: 06/28/23 05:32 06/28/23 05:32 Labs: Abnormal Lab Results - Last 24 Hours (Table) 06/27/23 06/27/23 06/27/23 Range/Units 11:09 16:26 21:41 RBC (4.30-5.90) m/uL Hgb (13.0-17.5) gm/dL Hct (39.0-53.0) % Lymphocytes # (1.0-4.8) k/uL Chloride (98-107) mmol/L BUN (9-20) mg/dL Creatinine (0.66-1.25) mg/dL Glucose (74-99) mg/dL POC Glucose (mg/dL) 231 H 114 H 190 H (70-110) mg/dL 06/28/23 06/28/23 06/28/23 Range/Units 05:32 05:32 06:36 RBC 3.43 L (4.30-5.90) m/uL Hgb 9.5 L (13.0-17.5) gm/dL Hct 29.7 L (39.0-53.0) % Lymphocytes # 0.8 L (1.0-4.8) k/uL Chloride 112 H (98-107) mmol/L BUN 43 H (9-20) mg/dL Creatinine 1.42 H (0.66-1.25) mg/dL Glucose 194 H (74-99) mg/dL POC Glucose (mg/dL) 201 H (70-110) mg/dL Microbiology - Last 24 Hours (Table) 06/25/23 14:00 Blood Culture - Preliminary Blood 06/25/23 14:20 Blood Culture - Preliminary Blood Assessment and Plan Plan: Assessment: 1. Acute kidney injury secondary to ATN secondary to hypotension/shock. Creatinine 6.55 on admission and is 1.42 today. No hydronephrosis noted on kidney ultrasound. 2. Chronic kidney disease stage IIIa with baseline creatinine 1.2-1.3 secondary to nephrosclerosis. 3. Metabolic acidosis secondary to acute kidney injury s/p bicarb drip. Improved. 4. UTI maintained on antibiotics. 5. Chronic systolic CHF ejection fraction of 45 to 50%. 6. Diabetes mellitus. 7. Hypokalemia from poor intake and post ATN diuresis. 8. Anemia. Rule out iron deficiency. Plan: Maintain IV fluids. Avoid nephrotoxins. Continue to monitor renal function and urine output. Replace potassium. Check iron studies.
[2023-06-28 10:53] LABS: Magnesium 1.7 mg/dL (1.6-2.3)
[2023-06-28 11:36] LABS: Glucose,Whole Blood 142 mg/dL (70-110)
[2023-06-28] MEDS: POTASSIUM CHLORIDE ER 20 MEQ TAB.ER PO STA (11:44)
[2023-06-28] MEDS: METOPROLOL TARTRATE 25 MG TAB PO SCH (11:45)
[2023-06-28] MEDS: amLODIPine 5 MG TAB PO SCH (11:45)
[2023-06-28] MEDS: MAGNESIUM SULFATE-D5W PMX 1 GM in DEXTROSE/WATER 1 100ML.BAG IVPB SCH (11:46)
--- NOTE | 2023-06-28 14:27 | P.PN ---
Subjective Progress Note Date: 06/28/23 72-year-old female patient admitted to the intensive care because of altered mentation, acute kidney injury and hypotension. The patient came into the emergency department because of mental status change. The patient went to respite care for the past weekend. He returned home and his condition was alt ered. He was feeling weak and had a fall and possibly a head injury. His oral intake was quite diminished. He has a low urine output. In the emergency, the patient was found to be hypotensive. Given a total of 3 L of IV fluid and he continues to be hypotensive with a systolic blood pressure ranging between 70 and 80 and following that he was started on pressors and admitted to the intensive care unit. No nausea. No emesis. No chest pain. No focal neurological deficits. The patient was awake however alert and oriented x 2. Davidson catheter was inserted and the urine output was diminished and it was quite cloudy. UA was abnormal with many bacteria and white cells and a highly elevate d white cell count. Blood work showed a white cell count of 15.6 with a hemoglobin of 10.3. The electrolytes showed a BUN of 111 with a creatinine of 6.55 and a sodium level of 139 and a potassium level of 4.7. The patient has anion gap metabolic acidosis with a gap of 19 and a serum bicarb of 17. LFTs were normal. Troponin was 0.095. Coagulation profile was within normal limits. CAT scan of the brain and cervical spine showed no acute osseous abnormality involving the cervical spine and large anterior vertebral bodies. At the level of C5/C7. The chest x-ray revealed a right basilar pleural-parenchymal opacity and right-sided pleural effusion and this has been smaller in size compared to the chest x-ray from 05/28/2023. EKG showed normal sinus rhythm with LVH criteria and old Q waves involving the inferior leads. The patient is currently in the intensive care unit. His past medical history includes peripheral vascular disease and the patient has bilateral above-knee amputation. He is known to have COPD,chronic hypoxic respiratory failure and he is on home 02 at 5 liters/min, chronic A-fib, paroxysmal and coronary artery disease with previous PCI and stenting. He is known to have also diabetes mellitus type 2, hypertension hyperlipidemia and he has history of a right-sided pleural effusion that was noted on earlier chest x-rays. Most recent echocardiogram from May 2023 showed mild impairment of systolic function with an ejection fraction of 40 to 45%.. Home medications include an JAMAR inhibitor that include Zestril. Patient also takes Flomax for symptoms of BPH. No intake of any form of nonsteroidal anti-inflammatory medication. Most recent creatinine was at 1.35 from 05/28/23. General on today's evaluation of 06/26/2023, the patient is being seen for a follow-up. The patient is still confused. He does have underlying dementia and there may be also some metabolic encephalopathy. He is pleasantly confused. He is not seeing squirrels in his room. He is not oriented to place and time. He knows his name. As mentioned, the patient presented to us with an acute kidney injury and intravascular volume depletion. He was started on IV fluids. He was started on a bicarb infusion and patient shows to recovery his metabolic acidosis and the patient is currently on lactated Ringer at rate of 100 cc an hour. Remains on IV Rocephin. JAMAR inhibitors and diuretics have been discontinued. Ultrasound kidney shows no evidence of an hydronephrosis. BUN is down to 108 and the creatinine is down to 5.1. The urine output over the past 24 hours has been in the order of 1000 mL. The risk is at 10.3 with hemoglobin 9.2. Sodium is at 137 with a potassium level of 4.4. Troponins are 0.09 and 0.06 respectively. CPK level is 629. Urine cultures are still pending for now. The patient remains on 2 L of oxygen by nasal cannula with a pulse ox of 94%. No signs of any significant respiratory distress at this point in time. No focal neurological deficits. On today's evaluation of 06/27/2023, the patient is being seen for a follow-up. The patient remains confused and the patient has baseline dementia. No agitation. There is a sitter at the bedside. Haldol will be restarted. Meanwhile, the patient continues to improve in terms of his acute kidney injury. The patient is responding to IV fluids. The creatinine is down to 2.28 with a BUN of 78. Rest of the electrolytes show a low potassium level of 3.4 which will be replaced. Sodium levels at 143. CBC from today still pending. Davidson catheter still in place. The patient was started on IV Rocephin regarding the possibility of underlying urine tract infection. Culture still pending for now. No other significant vents over the past 24 hours. Patient remains on room air oxygen with a pulse ox of 99%. On today's evaluation of 06/28/2023, the patient is doing essentially the same. Confused. At times agitated. Restarted on Haldol and the patient is seeming haloperidol 1 mg IM every 4 hours on a as needed basis. In terms of his renal function, the creatinine is been improving. The BUN currently is at 43 with a creatinine of 1.42 and the patient is producing adequate amount of urine output. Sodium is at 144 with a potassium level of 3.6. Serum bicarb is at 22. The risk is at 7.7 with a hemoglobin of 9.5. Rest of the medication have been unchanged. The patient remains on lactated Ringer at a rate of 100 cc an hour. Objective - Vital Signs Vital signs: Vital Signs Temp 97.8 F 06/28/23 07:49 Pulse 80 06/28/23 09:03 Resp 16 06/28/23 07:49 BP 161/67 06/28/23 07:49 Pulse Ox 98 06/28/23 07:49 FiO2 Intake & Output 06/27/23 06/28/23 06/28/23 18:59 06:59 18:59 Intake Total 1600 Output Total 1850 1850 Balance -250 -1850 Weight 96 kg Intake: IV 1000 Lactated Ringers 1,000 ml 1000 @ 100 mls/hr IV .Q10H SINDHU Rx#:[id number] Intake, IV Titration 100 Amount Lactated Ringers 1,000 ml 100 @ 100 mls/hr IV .Q10H SINDHU Rx#:[id number] Oral 500 Output: Urine 1850 1850 Other: Voiding Method Indwelling Catheter Indwelling Catheter Indwelling Catheter - Exam GENERAL EXAM: Alert, pleasant 72-year-old male, resting comfortably in bed, Currently on room air oxygen. HEAD: Normocephalic. EYES: Normal reaction of pupils, equal size. NOSE: Clear with pink turbinates. THROAT: No erythema or exudates. NECK: No masses, no JVD. CHEST: No chest wall deformity. LUNGS: Equal air entry with crackles in the right base. Diminished breath sounds right lung base along with dullness to percussion. CVS: S1 and S2 normal with no audible murmur, regular rhythm. ABDOMEN: No hepatosplenomegaly, normal bowel sounds, no guarding or rigidity. SPINE: No scoliosis or deformity SKIN: No rashes, stage I sacral decub ulceration. CENTRAL NERVOUS SYSTEM: No focal deficits, tone is normal in all 4 extremities. Baseline confusion and alert and oriented x 1-2. EXTREMITIES: Bilateral [id number] amputee. - Labs CBC & Chem 7: 06/28/23 05:32 06/28/23 05:32 Labs: Abnormal Lab Results - Last 24 Hours (Table) 06/27/23 06/27/23 06/27/23 Range/Units 11:09 16:26 21:41 RBC (4.30-5.90) m/uL Hgb (13.0-17.5) gm/dL Hct (39.0-53.0) % Lymphocytes # (1.0-4.8) k/uL Chloride (98-107) mmol/L BUN (9-20) mg/dL Creatinine (0.66-1.25) mg/dL Glucose (74-99) mg/dL POC Glucose (mg/dL) 231 H 114 H 190 H (70-110) mg/dL 06/28/23 06/28/23 06/28/23 Range/Units 05:32 05:32 06:36 RBC 3.43 L (4.30-5.90) m/uL Hgb 9.5 L (13.0-17.5) gm/dL Hct 29.7 L (39.0-53.0) % Lymphocytes # 0.8 L (1.0-4.8) k/uL Chloride 112 H (98-107) mmol/L BUN 43 H (9-20) mg/dL Creatinine 1.42 H (0.66-1.25) mg/dL Glucose 194 H (74-99) mg/dL POC Glucose (mg/dL) 201 H (70-110) mg/dL Microbiology - Last 24 Hours (Table) 06/25/23 14:00 Blood Culture - Preliminary Blood 06/25/23 14:20 Blood Culture - Preliminary Blood Assessment and Plan Plan: Acute on top of chronic kidney injury. Consider underlying urine tract infection/sepsis. Patient is intravascularly depleted with diminished oral intake and the patient has been taking a JAMAR inhibitor and lasix on outpatient basis. The patient is being resuscitated IV fluids. No evidence of any hydronephrosis. Renal function continues to improve. Patient is producing adequate amount of urine output. Creatinine is improved and the patient remains on lactated Ringer at rate of 100 cc an hour. Nephrology is on the case. Altered mental status likely secondary to underlying sepsis/metabolic encephalopathy induced by an acute kidney injury and electrolyte disturbances. CAT scan of the brain was essentially negative for any acute process. Noted the patient does have underlying dementia. As such, the confusion and altered ment ation cannot be completely acute and some of it is probably chronic. The patient is currently on Haldol 1 mg IM every 4 hours Acute hypotension, post resuscitation fluids and pressors and the patient is currently off pressors. Acute urinary tract infection, likely underlying sepsis, currently on Rocephin Chronic hypoxic respiratory failure and the patient is currently on room air oxygen Chronic systolic heart failure with an ejection fraction of 40 to 45% based on echocardiogram from May 2023 Right-sided pleural effusion secondary to above status post thoracentesis on 05/26/2023, exudate on the protein criteria and bloody with elevated RBC count and cytology was essentially negative for malignancy. A total of 2 L of fluid was aspirated and a previous thoracentesis was done on 05/26/2023. Chest x-ray shows recurrence of residual right-sided pleural effusion. Coronary artery disease, with history of previous PCI/stents to the RCA and LAD, most recent intervention done 10/17/22 Troponin leak likely secondary to type II ischemia Peripheral vascular disease, with history of bilateral [id number] amputations Former tobacco dependence Chronic obstructive pulmonary disease, stable Chronic hypoxemic respiratory failure, normally maintained on 2 to 3 L nasal cannula History of atrial fibrillation, anticoagulated on Eliquis, current rhythm is sinus Anemia of chronic disease Diabetes mellitus type 2, insulin-dependent Hypertension Hyperlipidemia Morbid obesity, with a BMI of 52 kg/m Stage I sacral decub ulcer Plan Patient currently on room air oxygen. Patient will be started on lactated Ringer at a rate of 100 cc an hour. Creatinine continues to improve IV Rocephin given in the emergency and this will be continued Urine cultures negative negative Blood cultures Ultrasound of the kidneys shows no evidence of any hydronephrosis Nephrology consultation appreciated CPK levels are minimally elevated Davidson catheter is in place patient is currently off pressors Avoid nephrotoxic agents Stop JAMAR inhibitors Haldol 1 mg IM every 4 hours as needed for agitation Transferred to medical floor and he has a sitter at the bedside.
--- NOTE | 2023-06-28 15:51 | P.PN ---
Subjective Progress Note Date: 06/28/23 72-year-old male with past medical history of diabetes, dementia who presents to the emergency department for altered mental status. The patient went to respite care this past weekend. When he returned home and the patient was not his normal self. It was reported that the patient had a fall with possible head injury however was never sent in for evaluation. Patient has not been eating or drinking much. He has low urine output. Patient does have Davidson catheter in place. Patient is alert and oriented x 2. Patient arrives hypotensive. No reported fevers. He does have some bruising noted to his lower abdomen. No signs of head injury appreciated. Patient denies any pain. He does wear 2-4 L of oxygen at all times. No other alleviating, precipitating modifying factors UA was abnormal with many bacteria and white cells and a highly elevated white cell count. Blood work showed a white cell count of 15.6 with a hemoglobin of 10.3. The electrolytes showed a BUN of 111 with a creatinine of 6.55 and a sodium level of 139 and a potassium level of 4.7. The patient has anion gap metabolic acidosis with a gap of 19 and a serum bicarb of 17. LFTs were normal. Troponin was 0.095. Coagulation profile was within normal limits. CAT scan of the brain and cervical spine showed no acute osseous abnormality involving the cervical spine and large anterior vertebral bodies. At the level of C5/C7. The chest x-ray revealed a right basilar pleural-parenchymal opacity and right- sided pleural effusion and this has been smaller in size compared to the chest x-ray from 05/28/2023. EKG showed normal sinus rhythm with LVH criteria and old Q waves involving the inferior leads. 06/28/2023 -the patient is seen and evaluated in room at bedside; transferred out of ICU; remains confused and agitated. -- Restarted on Haldol and the patient is seeming haloperidol 1 mg IM every 4 hours on a as needed basis. Lab review shows -- BUN currently is at 43 with a creatinine of 1.42 and the patient is producing adequate amount of urine output. Sodium is at 144 with a potassium level of 3.6. Serum bicarb is at 22. The risk is at 7.7 with a hemoglobin of 9.5. Rest of the medication have been unchanged. The patient remains on lactated Ringer at a rate of 100 cc an hour. Blood pressure remains markedly elevated; lisinopril has been discontinued due to acute renal failure --We will add metoprolol 25 mg twice daily and titrate dosage as needed Objective - Vital Signs Vital signs: Vital Signs Temp 97.8 F 06/28/23 07:49 Pulse 80 06/28/23 09:03 Resp 16 06/28/23 07:49 BP 161/67 06/28/23 07:49 Pulse Ox 98 06/28/23 07:49 FiO2 Intake & Output 06/27/23 06/28/23 06/28/23 18:59 06:59 18:59 Intake Total 1600 Output Total 1850 1850 Balance -250 -1850 Weight 96 kg Intake: IV 1000 Lactated Ringers 1,000 ml 1000 @ 100 mls/hr IV .Q10H SINDHU Rx#:[id number] Intake, IV Titration 100 Amount Lactated Ringers 1,000 ml 100 @ 100 mls/hr IV .Q10H SINDHU Rx#:[id number] Oral 500 Output: Urine 1849 1850 Other: Voiding Method Indwelling Catheter Indwelling Catheter Indwelling Catheter - Exam GENERAL EXAM: Alert, pleasant 72-year-old male, resting comfortably in bed, Currently on 2 L of oxygen by nasal cannula. Sitter at bedside HEAD: Normocephalic. EYES: Normal reaction of pupils, equal size. NECK: No masses, no JVD. CHEST: No chest wall deformity. LUNGS: Equal air entry with crackles in the right base. Diminished breath s ounds right lung base along with dullness to percussion. CVS: S1 and S2 normal with no audible murmur, regular rhythm. ABDOMEN: No hepatosplenomegaly, normal bowel sounds, no guarding or rigidity. SPINE: No scoliosis or deformity SKIN: No rashes, stage I sacral decub ulceration. CENTRAL NERVOUS SYSTEM: No focal deficits, tone is normal in all 4 extremities. Baseline confusion and alert and oriented x 1-2. EXTREMITIES: Bilateral [id number] amputee. - Labs CBC & Chem 7: 06/28/23 05:32 06/28/23 05:32 Labs: Abnormal Lab Results - Last 24 Hours (Table) 06/27/23 06/27/23 06/27/23 Range/Units 11:09 16:26 21:41 RBC (4.30-5.90) m/uL Hgb (13.0-17.5) gm/dL Hct (39.0-53.0) % Lymphocytes # (1.0-4.8) k/uL Chloride (98-107) mmol/L BUN (9-20) mg/dL Creatinine (0.66-1.25) mg/dL Glucose (74-99) mg/dL POC Glucose (mg/dL) 231 H 114 H 190 H (70-110) mg/dL 06/28/23 06/28/23 06/28/23 Range/Units 05:32 05:32 06:36 RBC 3.43 L (4.30-5.90) m/uL Hgb 9.5 L (13.0-17.5) gm/dL Hct 29.7 L (39.0-53.0) % Lymphocytes # 0.8 L (1.0-4.8) k/uL Chloride 112 H (98-107) mmol/L BUN 43 H (9-20) mg/dL Creatinine 1.42 H (0.66-1.25) mg/dL Glucose 194 H (74-99) mg/dL POC Glucose (mg/dL) 201 H (70-110) mg/dL Microbiology - Last 24 Hours (Table) 06/25/23 14:00 Blood Culture - Preliminary Blood 06/25/23 14:20 Blood Culture - Preliminary Blood Assessment and Plan Assessment: 1. Acute on chronic kidney disease; likely related to dehydration due to intravascular volume depletion resulting from poor oral intake with patient taking JAMAR inhibitor and Lasix on daily basis --Patient received IV fluid hydration in ED; received 3 L of IV fluid; patient started on a bicarb infusion at rate of 125 cc an hourwe will continue with IV fluid hydration; will monitor strict MAX's, daily weights, renal function electrolytes; avoid nephrotoxins and hypotension 2. UTI/sepsis; Rocephin 1 g IV daily; blood cultures and urine cultures were obtained and pending 3. Acute hypotension, post resuscitation with a total of 3 L of IV fluids and the patient is currently on low-dose norepinephrine 4. Troponin leak likely secondary to type II ischemia/systolic CHF Coronary artery disease, with history of previous PCI/stents to the RCA and LAD, most recent intervention done 10/17/22 Chronic systolic heart failure with an ejection fraction of 40 to 45% based on echocardiogram from May 2023 5. COPD/chronic hypoxic respiratory failure; in exacerbation; patient uses O2 at 2 L per nasal cannula at home; currently at baseline at 2 L 6. Peripheral arterial disease; s/p history of bilateral [id number] amputations 7. Atrial fibrillation; patient rate controlled on anticoagulated on Eliquis, current rhythm is sinus 8. Diabetes mellitus type 2, insulin-dependent; monitor Accu-Cheks before every meal and at bedtime with insulin sliding scale 9. Hypertension; patient takes Lasix and lisinopril at home; which have been placed on hold for hypotension 10. Morbid obesity, with a BMI of 52 kg/m 11. Stage I sacral decub ulcer; wound care DVT prophylaxis; SCDs/Eliquis CODE STATUS; full code
[2023-06-28 16:31] LABS: Glucose,Whole Blood 252 mg/dL (70-110)
[2023-06-28 20:03] LABS: Glucose,Whole Blood 135 mg/dL (70-110)
[2023-06-29 05:56] LABS: Glucose,Whole Blood 184 mg/dL (70-110)
[2023-06-29 07:56] LABS: % Iron Saturation 10.53 (15.00-50.00)
[2023-06-29 08:12] LABS: African American GFR (CKD) 73 (>60 ml/min/1.73 sqM); Anion Gap 11 mmol/L; Blood Urea Nitrogen 28 mg/dL (9-20); Carbon Dioxide 21 mmol/L (22-30); Chloride 112 mmol/L (98-107); Glucose 183 mg/dL (74-99); Non-African American GFR(CKD) 63 (>60 ml/min/1.73 sqM); Potassium 3.3 mmol/L (3.5-5.1); Sodium 144 mmol/L (137-145)
[2023-06-29] MEDS: DAPAGLIFLOZIN PROPANEDIOL 10 MG TABLET PO SCH (08:22)
[2023-06-29] MEDS: CHOLECALCIFEROL 25 MCG (1000 IU) TABLET PO SCH (08:23)
[2023-06-29] MEDS: lisinopriL 10 MG TAB PO SCH (09:34)
[2023-06-29] MEDS: amLODIPine 5 MG TAB PO STA (09:34)
--- NOTE | 2023-06-29 11:25 | P.PN ---
Subjective HISTORY OF PRESENT ILLNESS: The patient is a 72-year-old male who follows in the office with Dr. Starks. He is currently admitted status post mechanical fall and rhabdomyolysis. Cardiology was consulted for arrhythmia as well as elevated troponins. Patient was interviewed and examined resting comfortably in bed. He is more alert today. He denies any chest pain or difficulty breathing. Patient is seen today on the cardiac stepdown unit. Blood pressure remains elevated 161/67, heart rate is in the 80s, pulse ox 98% on room air. Hemoglobin is 9.5. Kidney function is improving with BUN of 43 creatinine 1.43. 06/29/2023 Patient examined this morning at the bedside. Patient denies chest pain or pressure. He denies shortness of breath. Patient's blood pressures remain elevated with a systolic between [id number]. Telemetry reveals atrial fibrillation with controlled ventricular rate. Patient's kidney function has normalized with a creatinine of 1.17 this morning. PHYSICAL EXAM: VITAL SIGNS: Reviewed. GENERAL: Well-developed in no acute distress. NECK: Supple. No JVD or thyromegaly LUNGS: Respirations even and unlabored. Lungs essentially clear to auscultation bilaterally. HEART: Irregular rate and rhythm. S1 and S2 heard. EXTREMITIES: Normal range of motion. No clubbing or cyanosis. Peripheral pulses intact. Bilateral AKA ASSESSMENT: Persistent atrial fibrillation, rate controlled Elevated troponins, type II AK Acute on chronic kidney injury Rhabdomyolysis Metabolic encephalopathy Urinary tract infection History of CAD History of heart failure, last EF 45 to 50% Bilateral AKA Diabetes Dementia Obesity PLAN: Continue current cardiac medications Increase amlodipine to 10 mg daily Resume lisinopril as AMY has resolved Continue to monitor blood pressure Further recommendations pending patient course Nurse practitioner note has been reviewed by physician. Signing provider agrees with the documented findings, assessment, and plan of care documented by PST MANAGER as a scribe. Objective - Vital Signs Vital signs: Vital Signs Temp 98.2 F 06/29/23 08:00 Pulse 55 L 06/29/23 08:00 Resp 18 06/29/23 08:00 BP 191/66 06/29/23 08:00 Pulse Ox 98 06/29/23 08:00 FiO2 Intake & Output 06/28/23 06/29/23 06/29/23 18:59 06:59 18:59 Intake Total 720 Output Total 650 Balance 720 -650 Weight 92 kg Intake: Oral 720 Output: Urine 650 Other: Voiding Method Indwelling Catheter Indwelling Catheter Indwelling Catheter # Bowel Movements 6 3 - Labs CBC & Chem 7: 06/28/23 05:32 06/29/23 06:23 Labs: Abnormal Lab Results - Last 24 Hours (Table) 06/28/23 06/28/23 06/28/23 Range/Units 06:53 11:34 16:30 Potassium (3.5-5.1) mmol/L Chloride (98-107) mmol/L Carbon Dioxide (22-30) mmol/L BUN (9-20) mg/dL Glucose (74-99) mg/dL POC Glucose (mg/dL) 142 H 252 H (70-110) mg/dL Iron 22 L (65-175) UG/DL TIBC 209 L (228-460) UG/DL % Saturation 10.53 L (15.00-50.00) Transferrin 149.0 L (204.0-354.0) mg/dL Ferritin 365.0 H (22.0-322.0) ng/mL 06/28/23 06/29/23 06/29/23 Range/Units 20:02 05:54 06:23 Potassium 3.3 L (3.5-5.1) mmol/L Chloride 112 H (98-107) mmol/L Carbon Dioxide 21 L (22-30) mmol/L BUN 28 H (9-20) mg/dL Glucose 183 H (74-99) mg/dL POC Glucose (mg/dL) 135 H 184 H (70-110) mg/dL Iron (65-175) UG/DL TIBC (228-460) UG/DL % Saturation (15.00-50.00) Transferrin (204.0-354.0) mg/dL Ferritin (22.0-322.0) ng/mL Microbiology - Last 24 Hours (Table) 06/25/23 14:00 Blood Culture - Preliminary Blood 06/25/23 14:20 Blood Culture - Preliminary Blood
--- NOTE | 2023-06-29 11:26 | P.PN ---
Subjective patient is seen for follow-up for acute kidney injuryand chronic kidney disease. Renal function has been stable. maintained on IV fluids. Patient has been confused and was agitated earlier this morning. He has received Ativan and is currently resting. Objective - Vital Signs Vital signs: Vital Signs Temp 98.2 F 06/29/23 08:00 Pulse 55 L 06/29/23 08:00 Resp 18 06/29/23 08:00 BP 191/66 06/29/23 08:00 Pulse Ox 98 06/29/23 08:00 FiO2 Intake & Output 06/28/23 06/29/23 06/29/23 18:59 06:59 18:59 Intake Total 720 Output Total 650 Balance 720 -650 Weight 92 kg Intake: Oral 720 Output: Urine 650 Other: Voiding Method Indwelling Catheter Indwelling Catheter Indwelling Catheter # Bowel Movements 6 3 - Exam sleeping but arousable. Comfortable Examination of the heart S1 and S2 Examination of the lungs bilateral breath sounds are heard Abdomen is soft nontender Examination of lower extremities shows bilateral amputations - Labs CBC & Chem 7: 06/28/23 05:32 06/29/23 06:23 Labs: Abnormal Lab Results - Last 24 Hours (Table) 06/28/23 06/28/23 06/28/23 Range/Units 06:53 11:34 16:30 Potassium (3.5-5.1) mmol/L Chloride (98-107) mmol/L Carbon Dioxide (22-30) mmol/L BUN (9-20) mg/dL Glucose (74-99) mg/dL POC Glucose (mg/dL) 142 H 252 H (70-110) mg/dL Iron 22 L (65-175) UG/DL TIBC 209 L (228-460) UG/DL % Saturation 10.53 L (15.00-50.00) Transferrin 149.0 L (204.0-354.0) mg/dL Ferritin 365.0 H (22.0-322.0) ng/mL 06/28/23 06/29/23 06/29/23 Range/Units 20:02 05:54 06:23 Potassium 3.3 L (3.5-5.1) mmol/L Chloride 112 H (98-107) mmol/L Carbon Dioxide 21 L (22-30) mmol/L BUN 28 H (9-20) mg/dL Glucose 183 H (74-99) mg/dL POC Glucose (mg/dL) 135 H 184 H (70-110) mg/dL Iron (65-175) UG/DL TIBC (228-460) UG/DL % Saturation (15.00-50.00) Transferrin (204.0-354.0) mg/dL Ferritin (22.0-322.0) ng/mL Microbiology - Last 24 Hours (Table) 06/25/23 14:00 Blood Culture - Preliminary Blood 06/25/23 14:20 Blood Culture - Preliminary Blood Assessment and Plan Assessment: 1. Acute kidney injury secondary to ATN secondary to hypotension/shock. Creatinine 6.55 on admission and is 1.1 today. No hydronephrosis noted on kidney ultrasound. 2. Chronic kidney disease stage IIIa with baseline creatinine 1.2-1.3 secondary to nephrosclerosis. 3. Metabolic acidosis secondary to acute kidney injury s/p bicarb drip. Improved. 4. UTI maintained on antibiotics. 5. Chronic systolic CHF ejection fraction of 45 to 50%. 6. Diabetes mellitus. 7. Hypokalemia from poor intake and post ATN diuresis. 8. Anemia. iron deficiency noted Plan: continue to encourage increase oral intake. Continue with IV fluids Add IV iron
[2023-06-29 11:52] LABS: Glucose,Whole Blood 131 mg/dL (70-110)
[2023-06-29] MEDS: FAMOTIDINE 20 MG TAB PO SCH (12:26)
[2023-06-29] MEDS: SODIUM FERRIC GLUCONAT-SUCROSE 125 MG in SODIUM CHLORIDE 0.9% 100 ML IVPB SCH (12:51)
--- NOTE | 2023-06-29 14:03 | P.PN ---
Subjective Progress Note Date: 06/29/23 72-year-old male with past medical history of diabetes, dementia who presents to the emergency department for altered mental status. The patient went to respite care this past weekend. When he returned home and the patient was not his normal self. It was reported that the patient had a fall with possible head injury however was never sent in for evaluation. Patient has not been eating or drinking much. He has low urine output. Patient does have Davidson catheter in place. Patient is alert and oriented x 2. Patient arrives hypotensive. No reported fevers. He does have some bruising noted to his lower abdomen. No signs of head injury appreciated. Patient denies any pain. He does wear 2-4 L of oxygen at all times. No other alleviating, precipitating modifying factors UA was abnormal with many bacteria and white cells and a highly elevated white cell count. Blood work showed a white cell count of 15.6 with a hemoglobin of 10.3. The electrolytes showed a BUN of 111 with a creatinine of 6.55 and a sodium level of 139 and a potassium level of 4.7. The patient has anion gap metabolic acidosis with a gap of 19 and a serum bicarb of 17. LFTs were normal. Troponin was 0.095. Coagulation profile was within normal limits. CAT scan of the brain and cervical spine showed no acute osseous abnormality involving the cervical spine and large anterior vertebral bodies. At the level of C5/C7. The chest x-ray revealed a right basilar pleural-parenchymal opacity and right- sided pleural effusion and this has been smaller in size compared to the chest x-ray from 05/28/2023. EKG showed normal sinus rhythm with LVH criteria and old Q waves involving the inferior leads. 06/28/2023 -the patient is seen and evaluated in room at bedside; transferred out of ICU; remains confused and agitated. -- Restarted on Haldol and the patient is seeming haloperidol 1 mg IM every 4 hours on a as needed basis. Lab review shows -- BUN currently is at 43 with a creatinine of 1.42 and the patient is producing adequate amount of urine output. Sodium is at 144 with a potassium level of 3.6. Serum bicarb is at 22. The risk is at 7.7 with a hemoglobin of 9.5. Rest of the medication have been unchanged. The patient remains on lactated Ringer at a rate of 100 cc an hour. Blood pressure remains markedly elevated; lisinopril has been discontinued due to acute renal failure --We will add metoprolol 25 mg twice daily and titrate dosage as needed 06/28. Patient seen and examined. Patient is confused, only alert to self. Does not look in any acute distress. REVIEW OF SYSTEMS: CONSTITUTIONAL: No fever, no malaise,. CARDIOVASCULAR: No chest pain, no palpitations, no syncope. PULMONARY: No shortness of breath, no cough, GASTROINTESTINAL: No diarrhea, no nausea, no vomiting, no abdominal pain. NEUROLOGICAL: No headaches, no weakness, PHYSICAL EXAMINATION: GENERAL: The patient is alert to self, not in any acute distress. Well developed, well nourished. HEENT: Pupils are round and equally reacting to light. EOMI. No scleral icterus. No conjunctival pallor. Normocephalic, atraumatic. No pharyngeal erythema. No thyromegaly. CARDIOVASCULAR: S1 and S2 present. No murmurs, rubs, or gallops. PULMONARY: Chest is clear to auscultation, no wheezing or crackles. ABDOMEN: Soft, nontender, nondistended, normoactive bowel sounds. No palpable organomegaly. MUSCULOSKELETAL: No joint swelling or deformity. EXTREMITIES: Bilateral AKA NEUROLOGICAL: Gross neurological examination did not reveal any focal deficits. SKIN: No rashes. Assessment and plan Acute on chronic kidney disease UTI/sepsis Acute hypotension Troponin leak likely secondary to type II ischemia/systolic CHF Coronary artery disease, with history of previous PCI/stents to the RCA and LAD, most recent intervention done 10/17/22 Chronic systolic heart failure with an ejection fraction of 40 to 45% based on echocardiogram from May 2023 COPD/chronic hypoxic respiratory failure; in exacerbation; Peripheral arterial disease; s/p history of bilateral [id number] am putations Atrial fibrillation; patient rate controlled on anticoagulated on Eliquis, current rhythm is sinus Diabetes mellitus type 2, insulin-dependent; monitor Accu-Cheks before every meal and at bedtime with insulin sliding scale Hypertension Morbid obesity, with a BMI of 52 kg/m Stage I sacral decub ulcer; wound care Monitor vital sign Monitor CBC Monitor CMP Continue Eliquis Continue Norvasc Continue IV Rocephin Continue Plavix Cardiology following Pulmonology following Labs and medication were reviewed.. Continue same treatment. Continue with symptomatic treatment. Resume home medication. Monitor labs and vitals. DVT and GI prophylaxis. Further recommendations as per clinical course of the patient Dictation was produced using [employer] dictation software. please excuse any grammatical, word or spelling errors. Objective - Vital Signs Vital signs: Vital Signs Temp 98.2 F 06/29/23 08:00 Pulse 55 L 06/29/23 08:00 Resp 18 06/29/23 08:00 BP 191/66 06/29/23 08:00 Pulse Ox 98 06/29/23 08:00 FiO2 Intake & Output 06/28/23 06/29/23 06/29/23 18:59 06:59 18:59 Intake Total 720 Output Total 650 Balance 720 -650 Weight 92 kg Intake: Oral 720 Output: Urine 650 Other: Voiding Method Indwelling Catheter Indwelling Catheter Indwelling Catheter # Bowel Movements 6 3 - Labs CBC & Chem 7: 06/28/23 05:32 06/29/23 06:23 Labs: Abnormal Lab Results - Last 24 Hours (Table) 06/28/23 06/28/23 06/28/23 Range/Units 06:53 11:34 16:30 Potassium (3.5-5.1) mmol/L Chloride (98-107) mmol/L Carbon Dioxide (22-30) mmol/L BUN (9-20) mg/dL Glucose (74-99) mg/dL POC Glucose (mg/dL) 142 H 252 H (70-110) mg/dL Iron 22 L (65-175) UG/DL TIBC 209 L (228-460) UG/DL % Saturation 10.53 L (15.00-50.00) Transferrin 149.0 L (204.0-354.0) mg/dL Ferritin 365.0 H (22.0-322.0) ng/mL 06/28/23 06/29/23 06/29/23 Range/Units 20:02 05:54 06:23 Potassium 3.3 L (3.5-5.1) mmol/L Chloride 112 H (98-107) mmol/L Carbon Dioxide 21 L (22-30) mmol/L BUN 28 H (9-20) mg/dL Glucose 183 H (74-99) mg/dL POC Glucose (mg/dL) 135 H 184 H (70-110) mg/dL Iron (65-175) UG/DL TIBC (228-460) UG/DL % Saturation (15.00-50.00) Transferrin (204.0-354.0) mg/dL Ferritin (22.0-322.0) ng/mL Microbiology - Last 24 Hours (Table) 06/25/23 14:00 Blood Culture - Preliminary Blood 06/25/23 14:20 Blood Culture - Preliminary Blood
[2023-06-29 17:05] LABS: Glucose,Whole Blood 133 mg/dL (70-110)
[2023-06-29 20:28] LABS: Glucose,Whole Blood 200 mg/dL (70-110)
--- NOTE | 2023-06-29 21:36 | P.CONS ---
History of Present Illness - Reason for Consult Consult date: 06/29/23 UTI, sepsis Requesting physician: Tree Lee - Chief Complaint Mental status changes X 1 day - History of Present Illness Patient is a 72-year-old male with a past medical history significant for diabetes mellitus hypertension hyperlipidemia osteoarthritis peripheral arterial disease in this patient who status post bilateral [id number] amputation patient presenting to the hospital 4 days ago for evaluation of mental status changes apparently the patient has not be himself and did have a fall not eating drinking and the patient did have a chronic indwelling Davidson catheter with the symptoms the patient was evaluated on presentation to the hospital the patient was afebrile however he did spike a fever of 101 F on 06/27/2023 patient was not tachycardic hypotensive or hypoxic and no need for supplemental oxygen therapy patient did have white count of 15.6 on admission that is down to 7.7 as of yesterday BUN ankle has been mildly elevated liver isms are normal urine was positive urine drug screen not done serum alcohol was less than 10 stool for C. difficile negative blood cultures pending patient has been treated empirically with the ceftriaxone infectious disease was consulted today for further management of antibiotic therapy, patient currently denies having any further fever or any chills denies any headache or URI symptoms no chest pain some shortness of breath no cough no nausea no vomiting no abdominal pain did have some diarrhea but no blood or mucus in the stool not very clear about when the Davidson catheter was changed Review of Systems Positive point and negatives has been mentioned in the HPI, complete review of systems was performed and all other systems are negative Past Medical History Past Medical History: Diabetes Mellitus, Eye Disorder, GERD/Reflux, H yperlipidemia, Hypertension, Osteoarthritis (OA), Renal Disease Additional Past Medical History / Comment(s): HX of Chronic venous stasis wounds, IDDM type II, cataracts , arthritis in hands, neuropathy, AKA B/L History of Any Multi-Drug Resistant Organisms: MRSA Year Discovered:: 10/28/22 MDRO Source:: Blood Past Surgical History: Heart Catheterization Additional Past Surgical History / Comment(s): bilateral great toes amputated, 2nd toe lt foot partial amputation, multiple debridements of venous ulcers, colonoscopy, surgery as a child for undescended testicle., ABOVE THE KNEE AMPUTATION RIGHT LEG (JUNE 2017-[facility]) Past Anesthesia/Blood Transfusion Reactions: No Reported Reaction Date of Last Stent Placement:: 10/17/2022 Past Psychological History: Anxiety, Depression Smoking Status: Former smoker - Past Family History Father Family Medical History: Cancer Additional Family Medical History / Comment(s): Father from brain cancer Mother Family Medical History: Eye Disorder Additional Family Medical History / Comment(s): Glaucoma. Mother is . Medications and Allergies Home Medications Medication Instructions Recorded Confirmed Type traZODone HCL 50 mg PO HS 11/09/17 06/25/23 History Acetaminophen [Tylenol Arthritis] 650 mg PO Q6H PRN 09/29/22 06/25/23 History Budesonide [Pulmicort] 0.5 mg INHALATION RT-BID 09/29/22 06/25/23 History Cholecalciferol [Vitamin D3 (25 25 mcg PO DAILY 09/29/22 06/25/23 History Mcg = 1000 Iu)] Famotidine [Pepcid] 20 mg PO BID 09/29/22 06/25/23 History Tamsulosin [Flomax] 0.4 mg PO DAILY 09/29/22 06/25/23 History Clopidogrel [Plavix] 75 mg PO DAILY #30 tab 10/01/22 06/25/23 Rx HYDROcodone/APAP 5-325MG [[place] 1 tab PO Q6HR PRN 3 Days #12 tab 10/01/22 06/25/23 Rx 5-325] Dapagliflozin Propanediol [Farxiga] 10 mg PO DAILY #30 tab 10/20/22 06/25/23 Rx Ipratropium-Albuterol Nebulize 3 ml INHALATION RT-Q2H PRN each 11/03/22 06/25/23 Rx [Duoneb 0.5 mg-3 mg/3 ml Soln] Apixaban [Eliquis] 5 mg PO BID 30 Days #30 tab 12/10/22 06/25/23 Rx Escitalopram [Lexapro] 20 mg PO DAILY 05/25/23 06/25/23 History Insulin Glargine,Hum.rec.anlog 20 units SQ BID 05/25/23 06/25/23 History [Lantus Solostar Pen] Insulin Lispro [humaLOG Kwikpen] See Protocol SQ ACHS 05/25/23 06/25/23 History Ipratropium-Albuterol Nebulize 3 ml INHALATION RT-QID 05/25/23 06/25/23 History [Duoneb 0.5 mg-3 mg/3 ml Soln] Nitroglycerin Sl Tabs [Nitrostat] 0.4 mg SL Q5M PRN 05/25/23 06/25/23 History Acetaminophen Suppository [Tylenol 650 mg RECTAL Q4H PRN 06/25/23 06/25/23 History Suppository] Haloperidol Oral Soln [Haldol Oral 0.5 - 1 mg PO Q4H PRN 06/25/23 06/25/23 History Soln] Hyoscyamine Sulfate [Levsin-Sl] 0.125 mg SL Q4H PRN 06/25/23 06/25/23 History LORazepam [Ativan] 0.5 - 1 mg PO Q4H PRN 06/25/23 06/25/23 History MORPHINE ORAL JUSTYNA CONC 20mg/mL 5 - 20 mg PO Q4HR PRN 06/25/23 06/25/23 History [Roxanol Oral Soln Conc 20MG/ML] Prochlorperazine Suppository 25 mg RECTAL Q12H PRN 06/25/23 06/25/23 History [Compazine] Sennosides/Docusate Sodium 1 tab PO BID PRN 06/25/23 06/25/23 History [Senna-S 8.6-50 mg Tablet] bisacodyL [Dulcolax] 10 mg RECTAL Q72H PRN 06/25/23 06/25/23 History Metoprolol Tartrate [Lopressor] 25 mg PO BID 30 Days #60 tab 07/03/23 Rx Sodium Bicarbonate Tab 650 mg PO BID #60 tab 07/03/23 Rx Spironolactone [Aldactone] 25 mg PO DAILY 30 Days #30 tab 07/03/23 Rx amLODIPine [Norvasc] 10 mg PO DAILY #30 tab 07/03/23 Rx cefUROXime axetiL [Ceftin] 500 mg PO BID 3 Days #6 tab 07/03/23 Rx hydrALAZINE HCL [Apresoline] 75 mg PO TID 30 Days #90 tab 07/03/23 Rx hydroCHLOROthiazide [Hydrodiuril] 25 mg PO DAILY #30 tab 07/03/23 Rx lisinopriL [Zestril] 20 mg PO BID 30 Days #60 tab 07/03/23 Rx Allergies Allergy/AdvReac Type Severity Reaction Status Date / Time No Known Allergies Allergy Verified 06/25/23 15:50 Physical Exam Vitals: Vital Signs Temp Pulse Pulse Resp BP Pulse Ox 06/29/23 20:00 97.6 F 57 L 20 170/61 97 06/29/23 16:07 68 06/29/23 16:00 56 L 18 197/77 99 06/29/23 15:57 68 06/29/23 14:00 69 06/29/23 12:05 60 06/29/23 12:00 69 18 132/44 94 L 06/29/23 11:49 56 L 06/29/23 08:00 98.2 F 55 L 18 191/66 98 06/29/23 04:00 98.3 F 54 L 18 181/79 99 06/29/23 02:00 54 L 18 06/28/23 23:39 98.0 F 56 L 18 178/62 98 Intake and Output 06/29/23 06/29/23 06/29/23 06:59 14:59 22:59 Intake Total 360 360 Output Total 650 900 Balance -650 -540 360 Intake: Oral 360 360 Output: Urine 650 900 Other: Voiding Method Indwelling Catheter Indwelling Catheter # Bowel Movements 3 Weight 92 kg GENERAL DESCRIPTION: Elderly male lying in bed, no distress. No tachypnea or accessory muscle of respiration use. HEENT: Shows Pallor , no scleral icterus. Oral mucous membrane is dry. NECK: Trachea central, no thyromegaly. LUNGS: Unlabored breathing. Clear to auscultation anteriorly. No wheeze or crackle. HEART: S1, S2, regular rate and rhythm. No loud murmur ABDOMEN: Soft, no tenderness , guarding or rigidity, no organomegaly EXTREMITIES: Bilateral AKA stump incisions are healed no redness no drainage SKIN: No rash, no masses palpable. NEUROLOGICAL: The patient is awake, alert mood and affect normal. Results CBC & Chem 7: 07/02/23 12:31 07/02/23 12:31 Labs: Abnormal Lab Results - Last 24 Hours (Table) 06/28/23 06/29/23 06/29/23 Range/Units 06:53 05:54 06:23 Potassium 3.3 L (3.5-5.1) mmol/L Chloride 112 H (98-107) mmol/L Carbon Dioxide 21 L (22-30) mmol/L BUN 28 H (9-20) mg/dL Glucose 183 H (74-99) mg/dL POC Glucose (mg/dL) 184 H (70-110) mg/dL Iron 22 L (65-175) UG/DL TIBC 209 L (228-460) UG/DL % Saturation 10.53 L (15.00-50.00) Transferrin 149.0 L (204.0-354.0) mg/dL Ferritin 365.0 H (22.0-322.0) ng/mL 06/29/23 06/29/23 06/29/23 Range/Units 11:51 17:04 20:23 Potassium (3.5-5.1) mmol/L Chloride (98-107) mmol/L Carbon Dioxide (22-30) mmol/L BUN (9-20) mg/dL Glucose (74-99) mg/dL POC Glucose (mg/dL) 131 H 133 H 200 H (70-110) mg/dL Iron (65-175) UG/DL TIBC (228-460) UG/DL % Saturation (15.00-50.00) Transferrin (204.0-354.0) mg/dL Ferritin (22.0-322.0) ng/mL Microbiology - Last 24 Hours (Table) 06/25/23 14:00 Blood Culture - Preliminary Blood 06/25/23 14:20 Blood Culture - Preliminary Blood Assessment and Plan (1) Catheter-associated urinary tract infection Status: Acute Code(s): T83.511A - I/I REACT D/T INDWELLING URETHRAL CATHETER, INIT; N39.0 - URINARY TRACT INFECTION, SITE NOT SPECIFIED SNOMED Code(s): 136505816 Plan: 1patient presented hospital mental status changes which is likely multifactorial in this patient who did have a positive UA fever concerning for possible catheter associated UTI 2-Davidson catheter needs to be changed if not done during this hospital stay 3-unfortunately no urine culture ordered had patient already has been on antibiotic For the last few days hence we will continue the patient on Rocephin for now keeping in mind clinical response We will follow on clinical condition and cultures to further adjust medication if needed Thank you for this consultation we will follow the patient along with you Dictation was produced using [employer] software. please excuse any grammatical, word or spelling errors. Time with Patient: Greater than 30
[2023-06-29 23:04] LABS: Appearance,Urine Cloudy (Clear); Bilirubin,Urine Negative (Negative); Blood,Urine Small (Negative); Color,Urine Colorless; Glucose,Urine (UA) 4+ (Negative); Ketones,Urine 1+ (Negative); Leukocyte Esterase,Urine Large (Negative); Mucus,Urine Rare /hpf; Nitrite,Urine Negative (Negative); PH, Urine 5.5 (5.0-8.0); Protein,Urine 1+ (Negative); RBC,Urine 19 /hpf (0-5); Specific Gravity,Urine 1.024 (1.001-1.035); Squamous Epithelial Cell,Urine <1 /hpf (0-4); Urobilinogen,Urine <2.0 mg/dL (<2.0); WBC,Urine 147 /hpf (0-5)
[2023-06-30 06:17] LABS: Glucose,Whole Blood 110 mg/dL (70-110)
[2023-06-30] MEDS: amLODIPine 10 MG TAB PO SCH (08:54)
[2023-06-30 10:59] LABS: Basophils % (A) 0 %; Eosinophils # (A) 0.1 k/uL (0-0.7); Eosinophils % (A) 1 %; HCT 28.6 % (39.0-53.0); HGB 8.8 gm/dL (13.0-17.5); Hypochromasia Slight; Lymphocytes # (A) 1.1 k/uL (1.0-4.8); Lymphocytes % (A) 11 %; MCHC 30.7 g/dL (31.0-37.0); MCV 88.1 fL (80.0-100.0); Mean Platelet Volume 8.8; Monocytes # (A) 0.6 k/uL (0-1.0); Monocytes % (A) 7 %; Neutrophils # (A) 7.4 k/uL (1.3-7.7); Neutrophils % (A) 79 %; Platelet Count 303 k/uL (150-450); RBC 3.25 m/uL (4.30-5.90); RDW 15.3 % (11.5-15.5); WBC 9.5 k/uL (3.8-10.6)
[2023-06-30 11:01] LABS: ALT 13 U/L (4-49); AST 17 U/L (17-59); African American GFR (CKD) 74 (>60 ml/min/1.73 sqM); Albumin 3.1 g/dL (3.5-5.0); Alkaline Phosphatase 91 U/L (38-126); Anion Gap 13 mmol/L; Blood Urea Nitrogen 20 mg/dL (9-20); Calcium 8.6 mg/dL (8.4-10.2); Carbon Dioxide 18 mmol/L (22-30); Chloride 110 mmol/L (98-107); Glucose 157 mg/dL (74-99); Non-African American GFR(CKD) 64 (>60 ml/min/1.73 sqM); Potassium 3.1 mmol/L (3.5-5.1); Sodium 141 mmol/L (137-145); Total Bilirubin 0.4 mg/dL (0.2-1.3); Total Protein 6.3 g/dL (6.3-8.2)
--- NOTE | 2023-06-30 11:32 | P.PN ---
Subjective patient is seen for follow-up for acute kidney injuryand chronic kidney disease. Renal function has been stable. maintained on IV fluids. mentation seems to be much improved today. Objective - Vital Signs Vital signs: Vital Signs Temp 97.4 F L 06/30/23 08:00 Pulse 76 06/30/23 08:48 Resp 18 06/30/23 08:00 BP 160/68 06/30/23 08:00 Pulse Ox 98 06/30/23 08:00 FiO2 Intake & Output 06/29/23 06/30/23 06/30/23 18:59 06:59 18:59 Intake Total 720 20 370 Output Total 900 200 300 Balance -180 -180 70 Intake: IV 20 10 Invasive Line 2 10 Invasive Line 5 10 10 Oral 720 360 Output: Urine 900 200 300 Other: Voiding Method Indwelling Catheter Indwelling Catheter Indwelling Catheter - Exam sleeping but arousable. Comfortable Examination of the heart S1 and S2 Examination of the lungs bilateral breath sounds are heard Abdomen is soft nontender Examination of lower extremities shows bilateral above-knee amputations - Labs CBC & Chem 7: 06/30/23 10:14 06/30/23 10:14 Labs: Abnormal Lab Results - Last 24 Hours (Table) 06/29/23 06/29/23 06/29/23 Range/Units 11:51 17:04 20:23 RBC (4.30-5.90) m/uL Hgb (13.0-17.5) gm/dL Hct (39.0-53.0) % MCHC (31.0-37.0) g/dL Potassium (3.5-5.1) mmol/L Chloride (98-107) mmol/L Carbon Dioxide (22-30) mmol/L Glucose (74-99) mg/dL POC Glucose (mg/dL) 131 H 133 H 200 H (70-110) mg/dL Albumin (3.5-5.0) g/dL Urine Protein (Negative) Urine Glucose (UA) (Negative) Urine Ketones (Negative) Urine Blood (Negative) Ur Leukocyte Esterase (Negative) Urine RBC (0-5) /hpf Urine WBC (0-5) /hpf Urine WBC Clumps (None) /hpf Urine Mucus (None) /hpf 06/29/23 06/30/23 06/30/23 Range/Units 22:48 10:14 10:14 RBC 3.25 L (4.30-5.90) m/uL Hgb 8.8 L (13.0-17.5) gm/dL Hct 28.6 L (39.0-53.0) % MCHC 30.7 L (31.0-37.0) g/dL Potassium 3.1 L (3.5-5.1) mmol/L Chloride 110 H (98-107) mmol/L Carbon Dioxide 18 L (22-30) mmol/L Glucose 157 H (74-99) mg/dL POC Glucose (mg/dL) (70-110) mg/dL Albumin 3.1 L (3.5-5.0) g/dL Urine Protein 1+ H (Negative) Urine Glucose (UA) 4+ H (Negative) Urine Ketones 1+ H (Negative) Urine Blood Small H (Negative) Ur Leukocyte Esterase Large H (Negative) Urine RBC 19 H (0-5) /hpf Urine WBC 147 H (0-5) /hpf Urine WBC Clumps Moderate H (None) /hpf Urine Mucus Rare H (None) /hpf Assessment and Plan Assessment: 1. Acute kidney injury secondary to ATN secondary to hypotension/shock. Creatinine 6.55 on admission and is 1.1 today. No hydronephrosis noted on kidney ultrasound. 2. Chronic kidney disease stage IIIa with baseline creatinine 1.2-1.3 secondary to nephrosclerosis. 3. Metabolic acidosis secondary to acute kidney injury s/p bicarb drip. 4. UTI maintained on antibiotics. 5. Chronic systolic CHF ejection fraction of 45 to 50%. 6. Diabetes mellitus. 7. Hypokalemia from poor intake and post ATN diuresis. 8. Anemia. iron deficiency noted. Maintained on IV iron Plan: continue to encourage increase oral intake. Continue with IV fluids Add oral sodium bicarb
[2023-06-30 11:59] LABS: Glucose,Whole Blood 145 mg/dL (70-110)
--- NOTE | 2023-06-30 12:11 | P.PN ---
Subjective Progress Note Date: 06/30/23 Principal diagnosis: Reason for follow-up is catheter associated UTI Patient is a 72-year-old male with a past medical history significant for diabetes mellitus hypertension hyperlipidemia osteoarthritis peripheral arterial disease in this patient who status post bilateral [id number] amputation patient presenting to the hospital for evaluation of mental status c hanges, patient did have a fever positive UA concerning for catheter assisted UTI. On today's evaluation that is 06/30/2023, the patient continues to be afebrile, the patient is on room air and breathing comfortably, the Pt denies having any chest pain or cough, the patient denies having any abdominal pain no vomiting or any diarrhea, however has been complaining of not getting any food or any water patient Davidson catheter was changed by the nursing staff last night. Patient white count is 9.5, creatinine is 1.1 6 repeat UA positive culture pending Objective - Vital Signs Vital signs: Vital Signs Temp 97.4 F L 06/30/23 08:00 Pulse 76 06/30/23 11:50 Resp 18 06/30/23 08:00 BP 160/68 06/30/23 08:00 Pulse Ox 98 06/30/23 08:00 FiO2 Intake & Output 06/29/23 06/30/23 06/30/23 18:59 06:59 18:59 Intake Total 720 20 370 Output Total 900 200 300 Balance -180 -180 70 Intake: IV 20 10 Invasive Line 2 10 Invasive Line 5 10 10 Oral 720 360 Output: Urine 900 200 300 Other: Voiding Method Indwelling Catheter Indwelling Catheter Indwelling Catheter - Exam GENERAL DESCRIPTION: An elderly male lying in bed in no distress RESPIRATORY SYSTEM: Unlabored breathing , decreased breath sounds at bases HEART: S1 S2 regular rate and rhythm , ABDOMEN: Soft , no tenderness EXTREMITIES: Bilateral AKA stump incision intact - Labs CBC & Chem 7: 06/30/23 10:14 06/30/23 10:14 Labs: Abnormal Lab Results - Last 24 Hours (Table) 06/29/23 06/29/23 06/29/23 Range/Units 17:04 20:23 22:48 RBC (4.30-5.90) m/uL Hgb (13.0-17.5) gm/dL Hct (39.0-53.0) % MCHC (31.0-37.0) g/dL Potassium (3.5-5.1) mmol/L Chloride (98-107) mmol/L Carbon Dioxide (22-30) mmol/L Glucose (74-99) mg/dL POC Glucose (mg/dL) 133 H 200 H (70-110) mg/dL Albumin (3.5-5.0) g/dL Urine Protein 1+ H (Negative) Urine Glucose (UA) 4+ H (Negative) Urine Ketones 1+ H (Negative) Urine Blood Small H (Negative) Ur Leukocyte Esterase Large H (Negative) Urine RBC 19 H (0-5) /hpf Urine WBC 147 H (0-5) /hpf Urine WBC Clumps Moderate H (None) /hpf Urine Mucus Rare H (None) /hpf 06/30/23 06/30/23 06/30/23 Range/Units 10:14 10:14 11:51 RBC 3.25 L (4.30-5.90) m/uL Hgb 8.8 L (13.0-17.5) gm/dL Hct 28.6 L (39.0-53.0) % MCHC 30.7 L (31.0-37.0) g/dL Potassium 3.1 L (3.5-5.1) mmol/L Chloride 110 H (98-107) mmol/L Carbon Dioxide 18 L (22-30) mmol/L Glucose 157 H (74-99) mg/dL POC Glucose (mg/dL) 145 H (70-110) mg/dL Albumin 3.1 L (3.5-5.0) g/dL Urine Protein (Negative) Urine Glucose (UA) (Negative) Urine Ketones (Negative) Urine Blood (Negative) Ur Leukocyte Esterase (Negative) Urine RBC (0-5) /hpf Urine WBC (0-5) /hpf Urine WBC Clumps (None) /hpf Urine Mucus (None) /hpf Assessment and Plan (1) Catheter-associated urinary tract infection Current Visit: Yes Status: Acute Code(s): T83.511A - I/I REACT D/T INDWELLING URETHRAL CATHETER, INIT; N39.0 - URINARY TRACT INFECTION, SITE NOT SPECIFIED SNOMED Code(s): 215419807 Plan: 1patient presented hospital mental status changes which is likely multifactorial in this patient who did have a positive UA fever concerning for possible catheter associated UTI 2-patient Davidson catheter has been changed 06/29/2023 repeat UA positive cultures pending 3-patient will be treated with Rocephin while waiting for repeat culture to be finalized Dictation was produced using [employer] dictation software. please excuse any grammatical, word or spelling errors. Time with Patient: Less than 30
--- NOTE | 2023-06-30 12:52 | P.PN ---
Subjective HISTORY OF PRESENT ILLNESS: The patient is a 72-year-old male who follows in the office with Dr. Starks. He is currently admitted status post mechanical fall and rhabdomyolysis. Cardiology was consulted for arrhythmia as well as elevated troponins. Patient was interviewed and examined resting comfortably in bed. He is more alert today. He denies any chest pain or difficulty breathing. Patient is seen today on the cardiac stepdown unit. Blood pressure remains elevated 161/67, heart rate is in the 80s, pulse ox 98% on room air. Hemoglobin is 9.5. Kidney function is improving with BUN of 43 creatinine 1.43. 06/29/2023 Patient examined this morning at the bedside. Patient denies chest pain or pressure. He denies shortness of breath. Patient's blood pressures remain elevated with a systolic between [id number]. Telemetry reveals atrial fibrillation with controlled ventricular rate. Patient's kidney function has normalized with a creatinine of 1.17 this morning. 06/30/2023 Patient examined this morning at the bedside. Patient currently denies chest pain or pressure. He denies shortness of breath. Blood pressure remains elev ated with a systolic in the [id number]. PHYSICAL EXAM: VITAL SIGNS: Reviewed. GENERAL: Well-developed in no acute distress. NECK: Supple. No JVD or thyromegaly LUNGS: Respirations even and unlabored. Lungs essentially clear to auscultation bilaterally. HEART: Irregular rate and rhythm. S1 and S2 heard. EXTREMITIES: Normal range of motion. No clubbing or cyanosis. Peripheral pulses intact. Bilateral AKA ASSESSMENT: Persistent atrial fibrillation, rate controlled Elevated troponins, type II IL Acute on chronic kidney injury Rhabdomyolysis Metabolic encephalopathy Urinary tract infection History of CAD History of heart failure, last EF 45 to 50% Bilateral AKA Diabetes Dementia Obesity PLAN: Continue current cardiac medications Increase lisinopril to 20 mg twice a day Add hydralazine 25 mg 3 times a day Discontinue PRN hydralazine as this makes it difficult to determine appropriate oral regimen Continue to monitor blood pressure Further recommendations pending patient course Nurse practitioner note has been reviewed by physician. Signing provider agrees with the documented findings, assessment, and plan of care documented by BRIDGE CARPENTER as a scribe. Objective - Vital Signs Vital signs: Vital Signs Temp 97.4 F L 06/30/23 08:00 Pulse 72 06/30/23 11:39 Resp 18 06/30/23 08:00 BP 160/68 06/30/23 08:00 Pulse Ox 98 06/30/23 08:00 FiO2 Intake & Output 06/29/23 06/30/23 06/30/23 18:59 06:59 18:59 Intake Total 720 20 370 Output Total 900 200 300 Balance -180 -180 70 Intake: IV 20 10 Invasive Line 2 10 Invasive Line 5 10 10 Oral 720 360 Output: Urine 900 200 300 Other: Voiding Method Indwelling Catheter Indwelling Catheter Indwelling Catheter - Labs CBC & Chem 7: 06/30/23 10:14 06/30/23 10:14 Labs: Abnormal Lab Results - Last 24 Hours (Table) 06/29/23 06/29/23 06/29/23 Range/Units 11:51 17:04 20:23 RBC (4.30-5.90) m/uL Hgb (13.0-17.5) gm/dL Hct (39.0-53.0) % MCHC (31.0-37.0) g/dL Potassium (3.5-5.1) mmol/L Chloride (98-107) mmol/L Carbon Dioxide (22-30) mmol/L Glucose (74-99) mg/dL POC Glucose (mg/dL) 131 H 133 H 200 H (70-110) mg/dL Albumin (3.5-5.0) g/dL Urine Protein (Negative) Urine Glucose (UA) (Negative) Urine Ketones (Negative) Urine Blood (Negative) Ur Leukocyte Esterase (Negative) Urine RBC (0-5) /hpf Urine WBC (0-5) /hpf Urine WBC Clumps (None) /hpf Urine Mucus (None) /hpf 06/29/23 06/30/23 06/30/23 Range/Units 22:48 10:14 10:14 RBC 3.25 L (4.30-5.90) m/uL Hgb 8.8 L (13.0-17.5) gm/dL Hct 28.6 L (39.0-53.0) % MCHC 30.7 L (31.0-37.0) g/dL Potassium 3.1 L (3.5-5.1) mmol/L Chloride 110 H (98-107) mmol/L Carbon Dioxide 18 L (22-30) mmol/L Glucose 157 H (74-99) mg/dL POC Glucose (mg/dL) (70-110) mg/dL Albumin 3.1 L (3.5-5.0) g/dL Urine Protein 1+ H (Negative) Urine Glucose (UA) 4+ H (Negative) Urine Ketones 1+ H (Negative) Urine Blood Small H (Negative) Ur Leukocyte Esterase Large H (Negative) Urine RBC 19 H (0-5) /hpf Urine WBC 147 H (0-5) /hpf Urine WBC Clumps Moderate H (None) /hpf Urine Mucus Rare H (None) /hpf
--- NOTE | 2023-06-30 13:33 | P.PN ---
Subjective Progress Note Date: 06/30/23 72-year-old male with past medical history of diabetes, dementia who presents to the emergency department for altered mental status. The patient went to respite care this past weekend. When he returned home and the patient was not his normal self. It was reported that the patient had a fall with possible head injury however was never sent in for evaluation. Patient has not been eating or drinking much. He has low urine output. Patient does have Davidson catheter in place. Patient is alert and oriented x 2. Patient arrives hypotensive. No reported fevers. He does have some bruising noted to his lower abdomen. No signs of head injury appreciated. Patient denies any pain. He does wear 2-4 L of oxygen at all times. No other alleviating, precipitating modifying factors UA was abnormal with many bacteria and white cells and a highly elevated white cell count. Blood work showed a white cell count of 15.6 with a hemoglobin of 10.3. The electrolytes showed a BUN of 111 with a creatinine of 6.55 and a sodium level of 139 and a potassium level of 4.7. The patient has anion gap metabolic acidosis with a gap of 19 and a serum bicarb of 17. LFTs were normal. Troponin was 0.095. Coagulation profile was within normal limits. CAT scan of the brain and cervical spine showed no acute osseous abnormality involving the cervical spine and large anterior vertebral bodies. At the level of C5/C7. The chest x-ray revealed a right basilar pleural-parenchymal opacity and right- sided pleural effusion and this has been smaller in size compared to the chest x-ray from 05/28/2023. EKG showed normal sinus rhythm with LVH criteria and old Q waves involving the inferior leads. 06/28/2023 -the patient is seen and evaluated in room at bedside; transferred out of ICU; remains confused and agitated. -- Restarted on Haldol and the patient is seeming haloperidol 1 mg IM every 4 hours on a as needed basis. Lab review shows -- BUN currently is at 43 with a creatinine of 1.42 and the patient is producing adequate amount of urine output. Sodium is at 144 with a potassium level of 3.6. Serum bicarb is at 22. The risk is at 7.7 with a hemoglobin of 9.5. Rest of the medication have been unchanged. The patient remains on lactated Ringer at a rate of 100 cc an hour. Blood pressure remains markedly elevated; lisinopril has been discontinued due to acute renal failure --We will add metoprolol 25 mg twice daily and titrate dosage as needed 06/28. Patient seen and examined. Patient is confused, only alert to self. Does not look in any acute distress. 06/29. Patient seen and examined. Mental status has improved. Does not look any acute distress. Has good appetite. [facility] Blood work done this morning showed WBC 9.5, hemoglobin 8.8, sodium 141, potassium 3.1, BUN 20, creatinine 1.16 REVIEW OF SYSTEMS: CONSTITUTIONAL: No fever, no malaise,. CARDIOVASCULAR: No chest pain, no palpitations, no syncope. PULMONARY: No shortness of breath, no cough, GASTROINTESTINAL: No diarrhea, no nausea, no vomiting, no abdominal pain. NEUROLOGICAL: No headaches, no weakness, PHYSICAL EXAMINATION: GENERAL: The patient is alert to self, not in any acute distress. Well developed, well nourished. HEENT: Pupils are round and equally reacting to light. EOMI. No scleral icterus. No conjunctival pallor. Normocephalic, atraumatic. No pharyngeal erythema. No thyromegaly. CARDIOVASCULAR: S1 and S2 present. No murmurs, rubs, or gallops. PULMONARY: Chest is clear to auscultation, no wheezing or crackles. ABDOMEN: Soft, nontender, nondistended, normoactive bowel sounds. No palpable organomegaly. MUSCULOSKELETAL: No joint swelling or deformity. EXTREMITIES: Bilateral AKA NEUROLOGICAL: Gross neurological examination did not reveal any focal deficits. SKIN: No rashes. Assessment and plan Acute on chronic kidney disease UTI/sepsis Acute hypotension Troponin leak likely secondary to type II ischemia/systolic CHF Coronary artery disease, with history of previous PCI/stents to the RCA and LAD, most recent intervention done 10/17/22 Chronic systolic heart failure with an ejection fraction of 40 to 45% based on echocardiogram from May 2023 COPD/chronic hypoxic respiratory failure; in exacerbation; Peripheral arterial disease; s/p history of bilateral [id number] amputations Atrial fibrillation; patient rate controlled on anticoagulated on Eliquis, current rhythm is sinus Diabetes mellitus type 2, insulin-dependent; monitor Accu-Cheks before every meal and at bedtime with insulin sliding scale Hypertension Morbid obesity, with a BMI of 52 kg/m Stage I sacral decub ulcer; wound care Monitor vital sign Monitor CBC Monitor CMP Continue Eliquis Continue Norvasc Continue IV Rocephin Potassium replacement ordered Continue Plavix Cardiology following Pulmonology following Downgraded to MedSurg Labs and medication were reviewed.. Continue same treatment. Continue with symptomatic treatment. Resume home medication. Monitor labs and vitals. DVT and GI prophylaxis. Further recommendations as per clinical course of the patient Dictation was produced using [employer] dictation software. please excuse any grammatical, word or spelling errors. Objective - Vital Signs Vital signs: Vital Signs Temp 97.4 F L 06/30/23 08:00 Pulse 76 06/30/23 11:50 Resp 18 06/30/23 08:00 BP 160/68 06/30/23 08:00 Pulse Ox 98 06/30/23 08:00 FiO2 Intake & Output 06/29/23 06/30/23 06/30/23 18:59 06:59 18:59 Intake Total 720 20 370 Output Total 900 200 300 Balance -180 -180 70 Intake: IV 20 10 Invasive Line 2 10 Invasive Line 5 10 10 Oral 720 360 Output: Urine 900 200 300 Other: Voiding Method Indwelling Catheter Indwelling Catheter Indwelling Catheter - Labs CBC & Chem 7: 06/30/23 10:14 06/30/23 10:14 Labs: Abnormal Lab Results - Last 24 Hours (Table) 06/29/23 06/29/23 06/29/23 Range/Units 17:04 20:23 22:48 RBC (4.30-5.90) m/uL Hgb (13.0-17.5) gm/dL Hct (39.0-53.0) % MCHC (31.0-37.0) g/dL Potassium (3.5-5.1) mmol/L Chloride (98-107) mmol/L Carbon Dioxide (22-30) mmol/L Glucose (74-99) mg/dL POC Glucose (mg/dL) 133 H 200 H (70-110) mg/dL Albumin (3.5-5.0) g/dL Urine Protein 1+ H (Negative) Urine Glucose (UA) 4+ H (Negative) Urine Ketones 1+ H (Negative) Urine Blood Small H (Negative) Ur Leukocyte Esterase Large H (Negative) Urine RBC 19 H (0-5) /hpf Urine WBC 147 H (0-5) /hpf Urine WBC Clumps Moderate H (None) /hpf Urine Mucus Rare H (None) /hpf 06/30/23 06/30/23 06/30/23 Range/Units 10:14 10:14 11:51 RBC 3.25 L (4.30-5.90) m/uL Hgb 8.8 L (13.0-17.5) gm/dL Hct 28.6 L (39.0-53.0) % MCHC 30.7 L (31.0-37.0) g/dL Potassium 3.1 L (3.5-5.1) mmol/L Chloride 110 H (98-107) mmol/L Carbon Dioxide 18 L (22-30) mmol/L Glucose 157 H (74-99) mg/dL POC Glucose (mg/dL) 145 H (70-110) mg/dL Albumin 3.1 L (3.5-5.0) g/dL Urine Protein (Negative) Urine Glucose (UA) (Negative) Urine Ketones (Negative) Urine Blood (Negative) Ur Leukocyte Esterase (Negative) Urine RBC (0-5) /hpf Urine WBC (0-5) /hpf Urine WBC Clumps (None) /hpf Urine Mucus (None) /hpf
[2023-06-30 13:56] VITALS: BMI 24.7
[2023-06-30] MEDS: POTASSIUM CHLORIDE ER 20 MEQ TAB.ER PO STA (15:29)
[2023-06-30] MEDS: hydrALAZINE HCL 25 MG TAB PO SCH (15:29)
[2023-06-30 17:15] LABS: Glucose,Whole Blood 201 mg/dL (70-110)
[2023-06-30 20:25] LABS: Glucose,Whole Blood 136 mg/dL (70-110)
[2023-06-30] MEDS: lisinopriL 20 MG TAB PO SCH (21:44)
[2023-06-30] MEDS: SODIUM BICARBONATE TAB 650 MG TAB PO SCH (21:44)
[2023-07-01 06:21] LABS: Glucose,Whole Blood 115 mg/dL (70-110)
--- NOTE | 2023-07-01 11:22 | P.PN ---
Subjective patient is seen for follow-up for acute kidney injuryand chronic kidney disease. Renal function has been stable. status post IV fluids. mentation seems to be much improved today. Objective - Vital Signs Vital signs: Vital Signs Temp 98.3 F 07/01/23 07:51 Pulse 74 07/01/23 08:51 Resp 18 07/01/23 07:51 BP 181/81 07/01/23 07:51 Pulse Ox 97 07/01/23 08:38 FiO2 Intake & Output 06/30/23 07/01/23 07/01/23 18:59 06:59 18:59 Intake Total 740 10 118 Output Total 300 1250 Balance 440 -1240 118 Weight 92 kg Intake: IV 20 10 Invasive Line 5 20 Invasive Line 6 10 Oral 720 118 Output: Urine 300 1250 Other: Voiding Method Indwelling Catheter Indwelling Catheter - Exam sleeping but arousable. Comfortable Examination of the heart S1 and S2 Examination of the lungs bilateral breath sounds are heard Abdomen is soft nontender Examination of lower extremities shows bilateral above-knee amputations - Labs CBC & Chem 7: 06/30/23 10:14 06/30/23 10:14 Labs: Abnormal Lab Results - Last 24 Hours (Table) 06/30/23 06/30/23 06/30/23 Range/Units 11:51 17:14 20:22 POC Glucose (mg/dL) 145 H 201 H 136 H (70-110) mg/dL 07/01/23 Range/Units 06:19 POC Glucose (mg/dL) 115 H (70-110) mg/dL Microbiology - Last 24 Hours (Table) 06/29/23 22:48 Urine Culture - Final Urine,Catheterized 06/25/23 14:00 Blood Culture - Final Blood 06/25/23 14:20 Blood Culture - Final Blood Assessment and Plan Assessment: 1. Acute kidney injury secondary to ATN secondary to hypotension/shock. Creatinine 6.55 on admission and is down to 1.1 . No hydronephrosis noted on kidney ultrasound. status post IV fluids. 2. Chronic kidney disease stage IIIa with baseline creatinine 1.2-1.3 secondary to nephrosclerosis. 3. Metabolic acidosis secondary to acute kidney injury s/p bicarb drip. 4. UTI maintained on antibiotics. 5. Chronic systolic CHF ejection fraction of 45 to 50%. 6. Diabetes mellitus. 7. Hypokalemia from poor intake and post ATN diuresis. 8. Anemia. iron deficiency noted. Maintained on IV iron Plan: continue to encourage increase oral intake. replace potassium if still low from today. continue oral sodium bicarb
[2023-07-01 11:26] LABS: Glucose,Whole Blood 212 mg/dL (70-110)
[2023-07-01 11:35] LABS: Basophils % (A) 0 %; Eosinophils # (A) 0.2 k/uL (0-0.7); Eosinophils % (A) 2 %; Hypochromasia Slight; Lymphocytes # (A) 1.1 k/uL (1.0-4.8); Lymphocytes % (A) 11 %; MCH 27.4 pg (25.0-35.0); MCHC 31.1 g/dL (31.0-37.0); MCV 88.2 fL (80.0-100.0); Mean Platelet Volume 9.2; Monocytes # (A) 0.7 k/uL (0-1.0); Monocytes % (A) 7 %; Neutrophils # (A) 7.4 k/uL (1.3-7.7); Neutrophils % (A) 78 %; Platelet Count 319 k/uL (150-450); RBC 3.29 m/uL (4.30-5.90); RDW 15.5 % (11.5-15.5); WBC 9.6 k/uL (3.8-10.6)
[2023-07-01 11:38] LABS: ALT 13 U/L (4-49); AST 17 U/L (17-59); African American GFR (CKD) 83 (>60 ml/min/1.73 sqM); Albumin 3.1 g/dL (3.5-5.0); Alkaline Phosphatase 90 U/L (38-126); Anion Gap 10 mmol/L; Blood Urea Nitrogen 16 mg/dL (9-20); Calcium 8.4 mg/dL (8.4-10.2); Carbon Dioxide 21 mmol/L (22-30); Chloride 110 mmol/L (98-107); Glucose 189 mg/dL (74-99); Non-African American GFR(CKD) 72 (>60 ml/min/1.73 sqM); Potassium 3.5 mmol/L (3.5-5.1); Sodium 141 mmol/L (137-145); Total Bilirubin 0.3 mg/dL (0.2-1.3); Total Protein 6.3 g/dL (6.3-8.2)
--- NOTE | 2023-07-01 11:54 | P.PN ---
Subjective HISTORY OF PRESENT ILLNESS: The patient is a 72-year-old male who follows in the office with Dr. Starks. He is currently admitted status post mechanical fall and rhabdomyolysis. Cardiology was consulted for arrhythmia as well as elevated troponins. Patient was interviewed and examined resting comfortably in bed. He is more alert today. He denies any chest pain or difficulty breathing. Patient is seen today on the cardiac stepdown unit. Blood pressure remains elevated 161/67, heart rate is in the 80s, pulse ox 98% on room air. Hemoglobin is 9.5. Kidney function is improving with BUN of 43 creatinine 1.43. 06/29/2023 Patient examined this morning at the bedside. Patient denies chest pain or pressure. He denies shortness of breath. Patient's blood pressures remain elevated with a systolic between [id number]. Telemetry reveals atrial fibrillation with controlled ventricular rate. Patient's kidney function has normalized with a creatinine of 1.17 this morning. 06/30/2023 Patient examined this morning at the bedside. Patient currently denies chest pain or pressure. He denies shortness of breath. Blood pressure remains elev ated with a systolic in the [id number]. 07/01/2023 Patient examined this morning at the bedside. Patient currently denies chest pain or pressure. He denies shortness of breath. Blood pressure remains elevated with a systolic in the [id number]. PHYSICAL EXAM: VITAL SIGNS: Reviewed. GENERAL: Well-developed in no acute distress. NECK: Supple. No JVD or thyromegaly LUNGS: Respirations even and unlabored. Lungs essentially clear to auscultation bilaterally. HEART: Irregular rate and rhythm. S1 and S2 heard. EXTREMITIES: Normal range of motion. No clubbing or cyanosis. Peripheral pulses intact. Bilateral AKA ASSESSMENT: Persistent atrial fibrillation, rate controlled Elevated troponins, type II VT Acute on chronic kidney injury Rhabdomyolysis Metabolic encephalopathy Urinary tract infection History of CAD History of heart failure, last EF 45 to 50% Bilateral AKA Diabetes Dementia Obesity PLAN: Continue current cardiac medications Increase hydralazine to 50 mg 3 times a day Lasix remains on hold. Begin Aldactone 25 mg daily and hydrochlorothiazide 25 mg daily for optimal blood pressure control Discontinue PRN hydralazine as this makes it difficult to determine appropriate oral regimen Obtain renal artery ultrasound to rule out renal artery stenosis Continue to monitor blood pressure Patient may be discharged today from a cardiac standpoint Further recommendations pending patient course Nurse practitioner note has been reviewed by physician. Signing provider agrees with the documented findings, assessment, and plan of care documented by SYSTEM ARCHIVE ANALYST as a scribe. Objective - Vital Signs Vital signs: Vital Signs Temp 98.3 F 07/01/23 07:51 Pulse 74 07/01/23 08:51 Resp 18 07/01/23 07:51 BP 181/81 07/01/23 07:51 Pulse Ox 97 07/01/23 08:38 FiO2 Intake & Output 06/30/23 07/01/23 07/01/23 18:59 06:59 18:59 Intake Total 740 10 118 Output Total 300 1250 Balance 440 -1240 118 Weight 92 kg Intake: IV 20 10 Invasive Line 5 20 Invasive Line 6 10 Oral 720 118 Output: Urine 300 1250 Other: Voiding Method Indwelling Catheter Indwelling Catheter - Labs CBC & Chem 7: 07/01/23 10:04 07/01/23 10:21 Labs: Abnormal Lab Results - Last 24 Hours (Table) 06/30/23 06/30/23 06/30/23 Range/Units 11:51 17:14 20:22 RBC (4.30-5.90) m/uL Hgb (13.0-17.5) gm/dL Hct (39.0-53.0) % Chloride (98-107) mmol/L Carbon Dioxide (22-30) mmol/L Glucose (74-99) mg/dL POC Glucose (mg/dL) 145 H 201 H 136 H (70-110) mg/dL Albumin (3.5-5.0) g/dL 07/01/23 07/01/23 07/01/23 Range/Units 06:19 10:04 10:21 RBC 3.29 L (4.30-5.90) m/uL Hgb 9.0 L (13.0-17.5) gm/dL Hct 29.0 L (39.0-53.0) % Chloride 110 H (98-107) mmol/L Carbon Dioxide 21 L (22-30) mmol/L Glucose 189 H (74-99) mg/dL POC Glucose (mg/dL) 115 H (70-110) mg/dL Albumin 3.1 L (3.5-5.0) g/dL 07/01/23 Range/Units 11:24 RBC (4.30-5.90) m/uL Hgb (13.0-17.5) gm/dL Hct (39.0-53.0) % Chloride (98-107) mmol/L Carbon Dioxide (22-30) mmol/L Glucose (74-99) mg/dL POC Glucose (mg/dL) 212 H (70-110) mg/dL Albumin (3.5-5.0) g/dL Microbiology - Last 24 Hours (Table) 06/29/23 22:48 Urine Culture - Final Urine,Catheterized 06/25/23 14:00 Blood Culture - Final Blood 06/25/23 14:20 Blood Culture - Final Blood
[2023-07-01] MEDS: SPIRONOLACTONE 25 MG TAB PO SCH (12:38)
[2023-07-01] MEDS: hydroCHLOROthiazide 25 MG TAB PO SCH (12:38)
--- NOTE | 2023-07-01 13:07 | P.PN ---
Subjective Progress Note Date: 07/01/23 72-year-old male with past medical history of diabetes, dementia who presents to the emergency department for altered mental status. The patient went to respite care this past weekend. When he returned home and the patient was not his normal self. It was reported that the patient had a fall with possible head injury however was never sent in for evaluation. Patient has not been eating or drinking much. He has low urine output. Patient does have Davidson catheter in place. Patient is alert and oriented x 2. Patient arrives hypotensive. No reported fevers. He does have some bruising noted to his lower abdomen. No signs of head injury appreciated. Patient denies any pain. He does wear 2-4 L of oxygen at all times. No other alleviating, precipitating modifying factors UA was abnormal with many bacteria and white cells and a highly elevated white cell count. Blood work showed a white cell count of 15.6 with a hemoglobin of 10.3. The electrolytes showed a BUN of 111 with a creatinine of 6.55 and a sodium level of 139 and a potassium level of 4.7. The patient has anion gap metabolic acidosis with a gap of 19 and a serum bicarb of 17. LFTs were normal. Troponin was 0.095. Coagulation profile was within normal limits. CAT scan of the brain and cervical spine showed no acute osseous abnormality involving the cervical spine and large anterior vertebral bodies. At the level of C5/C7. The chest x-ray revealed a right basilar pleural-parenchymal opacity and right- sided pleural effusion and this has been smaller in size compared to the chest x-ray from 05/28/2023. EKG showed normal sinus rhythm with LVH criteria and old Q waves involving the inferior leads. 06/28/2023 -the patient is seen and evaluated in room at bedside; transferred out of ICU; remains confused and agitated. -- Restarted on Haldol and the patient is seeming haloperidol 1 mg IM every 4 hours on a as needed basis. Lab review shows -- BUN currently is at 43 with a creatinine of 1.42 and the patient is producing adequate amount of urine output. Sodium is at 144 with a potassium level of 3.6. Serum bicarb is at 22. The risk is at 7.7 with a hemoglobin of 9.5. Rest of the medication have been unchanged. The patient remains on lactated Ringer at a rate of 100 cc an hour. Blood pressure remains markedly elevated; lisinopril has been discontinued due to acute renal failure --We will add metoprolol 25 mg twice daily and titrate dosage as needed 06/28. Patient seen and examined. Patient is confused, only alert to self. Does not look in any acute distress. 06/29. Patient seen and examined. Mental status has improved. Does not look any acute distress. Has good appetite. [facility] Blood work done this morning showed WBC 9.5, hemoglobin 8.8, sodium 141, potassium 3.1, BUN 20, creatinine 1.16 06/30. Patient seen and examined. Patient blood pressure medications were adjusted by cardiology as blood pressure is suboptimally controlled. REVIEW OF SYSTEMS: CONSTITUTIONAL: No fever, no malaise,. CARDIOVASCULAR: No chest pain, no palpitations, no syncope. PULMONARY: No shortness of breath, no cough, GASTROINTESTINAL: No diarrhea, no nausea, no vomiting, no abdominal pain. NEUROLOGICAL: No headaches, no weakness, PHYSICAL EXAMINATION: GENERAL: The patient is alert to self, not in any acute distress. Well developed, well nourished. HEENT: Pupils are round and equally reacting to light. EOMI. No scleral icterus. No conjunctival pallor. Normocephalic, atraumatic. No pharyngeal erythema. No thyromegaly. CARDIOVASCULAR: S1 and S2 present. No murmurs, rubs, or gallops. PULMONARY: Chest is clear to auscultation, no wheezing or crackles. ABDOMEN: Soft, nontender, nondistended, normoactive bowel sounds. No palpable organomegaly. MUSCULOSKELETAL: No joint swelling or deformity. EXTREMITIES: Bilateral AKA NEUROLOGICAL: Gross neurological examination did not reveal any focal deficits. SKIN: No rashes. Assessment and plan Acute on chronic kidney disease UTI/sepsis Acute hypotension Troponin leak likely secondary to type II ischemia/systolic CHF Coronary artery disease, with history of previous PCI/stents to the RCA and LAD, most recent intervention done 10/17/22 Chronic systolic heart failure with an ejection fraction of 40 to 45% based on echocardiogram from May 2023 COPD/chronic hypoxic respiratory failure; in exacerbation; Peripheral arterial disease; s/p history of bilateral [id number] amputations Atrial fibrillation; patient rate controlled on anticoagulated on Eliquis, current rhythm is sinus Diabetes mellitus type 2, insulin-dependent; monitor Accu-Cheks before every m eal and at bedtime with insulin sliding scale Hypertension Morbid obesity, with a BMI of 52 kg/m Stage I sacral decub ulcer; wound care Monitor vital sign Monitor CBC Monitor CMP Continue Eliquis Continue Norvasc Continue IV Rocephin Continue hydralazine, added HCTZ, continue lisinopril Continue Plavix Cardiology following Pulmonology following Nephrology following Labs and medication were reviewed.. Continue same treatment. Continue with symptomatic treatment. Resume home medication. Monitor labs and vitals. DVT and GI prophylaxis. Further recommendations as per clinical course of the patient Dictation was produced using [employer] dictation software. please excuse any grammatical, word or spelling errors. Objective - Vital Signs Vital signs: Vital Signs Temp 98.3 F 07/01/23 07:51 Pulse 74 07/01/23 08:51 Resp 18 07/01/23 07:51 BP 181/81 07/01/23 07:51 Pulse Ox 97 07/01/23 08:38 FiO2 Intake & Output 06/30/23 07/01/23 07/01/23 18:59 06:59 18:59 Intake Total 740 10 118 Output Total 300 1250 Balance 440 -1240 118 Weight 92 kg Intake: IV 20 10 Invasive Line 5 20 Invasive Line 6 10 Oral 720 118 Output: Urine 300 1250 Other: Voiding Method Indwelling Catheter Indwelling Catheter - Labs CBC & Chem 7: 07/01/23 10:04 07/01/23 10:21 Labs: Abnormal Lab Results - Last 24 Hours (Table) 06/30/23 06/30/23 06/30/23 Range/Units 10:14 10:14 11:51 RBC 3.25 L (4.30-5.90) m/uL Hgb 8.8 L (13.0-17.5) gm/dL Hct 28.6 L (39.0-53.0) % MCHC 30.7 L (31.0-37.0) g/dL Potassium 3.1 L (3.5-5.1) mmol/L Chloride 110 H (98-107) mmol/L Carbon Dioxide 18 L (22-30) mmol/L Glucose 157 H (74-99) mg/dL POC Glucose (mg/dL) 145 H (70-110) mg/dL Albumin 3.1 L (3.5-5.0) g/dL 06/30/23 06/30/23 07/01/23 Range/Units 17:14 20:22 06:19 RBC (4.30-5.90) m/uL Hgb (13.0-17.5) gm/dL Hct (39.0-53.0) % MCHC (31.0-37.0) g/dL Potassium (3.5-5.1) mmol/L Chloride (98-107) mmol/L Carbon Dioxide (22-30) mmol/L Glucose (74-99) mg/dL POC Glucose (mg/dL) 201 H 136 H 115 H (70-110) mg/dL Albumin (3.5-5.0) g/dL Microbiology - Last 24 Hours (Table) 06/29/23 22:48 Urine Culture - Final Urine,Catheterized 06/25/23 14:00 Blood Culture - Final Blood 06/25/23 14:20 Blood Culture - Final Blood
--- NOTE | 2023-07-01 16:32 | US ---
EXAMINATION TYPE: US renal artery duplex complet DATE OF EXAM: 07/01/2023 COMPARISON: CLINICAL INDICATION: Male, 72 years old with history of r/o stenosis; Poor historian. AMS. Antonio fuentes MEASUREMENTS: RENAL SIZE: Right Kidney: 10.9 x 5.9 x 5.6 Left Kidney: 9.7 x 4.2 x 6.0 Right Kidney: No hydronephrosis or lesions seen Left Kidney: No hydronephrosis or lesions seen Abd Aorta: No AAA visualized at time of scan, limited due to bowel gas RESISTANCE INDEX Right: 0.8 Left: 0.7 RA/AO RATIO (< 3.5 ) Right: 2.4 Left: 1.3 RENAL ARTERY VELOCITY ( < 180 cm/s) Right: 120.0 Left: 64.7 Animal Physiology Teacher Notes: Extremely limited exam due to patient position, unable to hold breath and body habitus Incidental finding: gallbladder sludge IMPRESSION: No evidence for renal artery stenosis.
[2023-07-01 16:42] LABS: Glucose,Whole Blood 80 mg/dL (70-110)
[2023-07-01] MEDS: hydrALAZINE HCL 25 MG TAB PO SCH (17:24)
[2023-07-01 20:01] LABS: Glucose,Whole Blood 88 mg/dL (70-110)
[2023-07-02 06:21] LABS: Glucose,Whole Blood 93 mg/dL (70-110)
--- NOTE | 2023-07-02 08:58 | P.PN ---
Subjective Progress Note Date: 07/01/23 Principal diagnosis: Reason for follow-up is catheter associated UTI Patient is a 72-year-old male with a past medical history significant for diabetes mellitus hypertension hyperlipidemia osteoarthritis peripheral arterial disease in this patient who status post bilateral [id number] amputation patient presenting to the hospital for evaluation of mental status c hanges, patient did have a fever positive UA concerning for catheter assisted UTI. On today's evaluation that is 07/01/2023, Patient is afebrile patient is currently on room air and denies having any shortness of breath, the patient denies any chest pain or cough, the patient denies any nausea vomiting did not have any abdominal pain and no diarrhea Patient creatinine is 1.0 5 repeat urine after change of catheter has been positive with the cultures pending Objective - Vital Signs Vital signs: Vital Signs Temp 98.1 F 07/01/23 12:45 Pulse 67 07/01/23 12:45 Resp 16 07/01/23 12:45 BP 184/56 07/01/23 12:45 Pulse Ox 98 07/01/23 12:45 FiO2 Intake & Output 06/30/23 07/01/23 07/01/23 18:59 06:59 18:59 Intake Total 740 10 118 Output Total 300 1250 Balance 440 -1240 118 Weight 92 kg Intake: IV 20 10 Invasive Line 5 20 Invasive Line 6 10 Oral 720 118 Output: Urine 300 1250 Other: Voiding Method Indwelling Catheter Indwelling Catheter - Exam GENERAL DESCRIPTION: An elderly male lying in bed in no distress RESPIRATORY SYSTEM: Unlabored breathing , decreased breath sounds at bases HEART: S1 S2 regular rate and rhythm , ABDOMEN: Soft , no tenderness EXTREMITIES: Bilateral AKA stump incision intact - Labs CBC & Chem 7: 07/01/23 10:04 07/01/23 10:21 Labs: Abnormal Lab Results - Last 24 Hours (Table) 06/30/23 06/30/23 07/01/23 Range/Units 17:14 20:22 06:19 RBC (4.30-5.90) m/uL Hgb (13.0-17.5) gm/dL Hct (39.0-53.0) % Chloride (98-107) mmol/L Carbon Dioxide (22-30) mmol/L Glucose (74-99) mg/dL POC Glucose (mg/dL) 201 H 136 H 115 H (70-110) mg/dL Albumin (3.5-5.0) g/dL 07/01/23 07/01/23 07/01/23 Range/Units 10:04 10:21 11:24 RBC 3.29 L (4.30-5.90) m/uL Hgb 9.0 L (13.0-17.5) gm/dL Hct 29.0 L (39.0-53.0) % Chloride 110 H (98-107) mmol/L Carbon Dioxide 21 L (22-30) mmol/L Glucose 189 H (74-99) mg/dL POC Glucose (mg/dL) 212 H (70-110) mg/dL Albumin 3.1 L (3.5-5.0) g/dL Microbiology - Last 24 Hours (Table) 06/29/23 22:48 Urine Culture - Final Urine,Catheterized 06/25/23 14:00 Blood Culture - Final Blood 06/25/23 14:20 Blood Culture - Final Blood Assessment and Plan (1) Catheter-associated urinary tract infection Current Visit: Yes Status: Acute Code(s): T83.511A - I/I REACT D/T INDWELLING URETHRAL CATHETER, INIT; N39.0 - URINARY TRACT INFECTION, SITE NOT SPECIFIED SNOMED Code(s): 719094716 Plan: 1patient presented hospital mental status changes which is likely multifactorial in this patient who did have a positive UA fever concerning for possible catheter associated UTI 2-patient Davidson catheter has been changed 06/29/2023 repeat UA positive cultures pending 3-patient did have some clinical improvement with Rocephin to continue while waiting for repeat culture to be finalized Dictation was produced using [employer] dictation software. please excuse any gra mmatical, word or spelling errors. Time with Patient: Less than 30
--- NOTE | 2023-07-02 11:30 | P.PN ---
Subjective patient is seen for follow-up for acute kidney injury and chronic kidney disease. Renal function has been stable. status post IV fluids. mentation seems to be much improved. Objective - Vital Signs Vital signs: Vital Signs Temp 97.8 F 07/01/23 19:51 Pulse 75 07/02/23 08:37 Resp 18 07/02/23 08:00 BP 134/62 07/02/23 08:00 Pulse Ox 99 07/02/23 08:18 FiO2 Intake & Output 07/01/23 07/02/23 07/02/23 18:59 06:59 18:59 Intake Total 118 10 120 Output Total 700 575 Balance -582 -565 120 Weight 92 kg Intake: IV 10 Invasive Line 6 10 Oral 118 120 Output: Urine 700 575 Other: Voiding Method Indwelling Catheter Indwelling Catheter - Exam sleeping but arousable. Comfortable Examination of the heart S1 and S2 Examination of the lungs bilateral breath sounds are heard Abdomen is soft nontender Examination of lower extremities shows bilateral above-knee amputations - Labs CBC & Chem 7: 07/01/23 10:04 07/01/23 10:21 Labs: Abnormal Lab Results - Last 24 Hours (Table) 07/01/23 07/01/23 07/01/23 Range/Units 10:04 10:21 11:24 RBC 3.29 L (4.30-5.90) m/uL Hgb 9.0 L (13.0-17.5) gm/dL Hct 29.0 L (39.0-53.0) % Chloride 110 H (98-107) mmol/L Carbon Dioxide 21 L (22-30) mmol/L Glucose 189 H (74-99) mg/dL POC Glucose (mg/dL) 212 H (70-110) mg/dL Albumin 3.1 L (3.5-5.0) g/dL Assessment and Plan Assessment: 1. Acute kidney injury secondary to ATN secondary to hypotension/shock. Creatinine 6.55 on admission and is down to 1.1 . No hydronephrosis noted on kidney ultrasound. status post IV fluids. 2. Chronic kidney disease stage IIIa with baseline creatinine 1.2-1.3 secondary to nephrosclerosis. 3. Metabolic acidosis secondary to acute kidney injury s/p bicarb drip. 4. UTI maintained on antibiotics. 5. Chronic systolic CHF ejection fraction of 45 to 50%. 6. Diabetes mellitus. 7. Hypokalemia from poor intake and post ATN diuresis. 8. Anemia. iron deficiency noted. status post IV iron Plan: continue to encourage increase oral intake. . continue oral sodium bicarb
[2023-07-02 11:43] LABS: Glucose,Whole Blood 116 mg/dL (70-110)
[2023-07-02] MEDS: POTASSIUM CHLORIDE ER 20 MEQ TAB.ER PO STA (11:55)
--- NOTE | 2023-07-02 13:00 | P.PN ---
Subjective HISTORY OF PRESENT ILLNESS: The patient is a 72-year-old male who follows in the office with Dr. Starks. He is currently admitted status post mechanical fall and rhabdomyolysis. Cardiology was consulted for arrhythmia as well as elevated troponins. Patient was interviewed and examined resting comfortably in bed. He is more alert today. He denies any chest pain or difficulty breathing. Patient is seen today on the cardiac stepdown unit. Blood pressure remains elevated 161/67, heart rate is in the 80s, pulse ox 98% on room air. Hemoglobin is 9.5. Kidney function is improving with BUN of 43 creatinine 1.43. 06/29/2023 Patient examined this morning at the bedside. Patient denies chest pain or pressure. He denies shortness of breath. Patient's blood pressures remain elevated with a systolic between [id number]. Telemetry reveals atrial fibrillation with controlled ventricular rate. Patient's kidney function has normalized with a creatinine of 1.17 this morning. 06/30/2023 Patient examined this morning at the bedside. Patient currently denies chest pain or pressure. He denies shortness of breath. Blood pressure remains elev ated with a systolic in the [id number]. 07/01/2023 Patient examined this morning at the bedside. Patient currently denies chest pain or pressure. He denies shortness of breath. Blood pressure remains elevated with a systolic in the [id number]. 07/02/2023 Patient examined this morning at the bedside. Patient denies chest pain or pressure. He denies shortness of breath. Blood pressure has improved today. Renal artery Doppler completed negative for renal artery stenosis. PHYSICAL EXAM: VITAL SIGNS: Reviewed. GENERAL: Well-developed in no acute distress. NECK: Supple. No JVD or thyromegaly LUNGS: Respirations even and unlabored. Lungs essentially clear to auscultation bilaterally. HEART: Irregular rate and rhythm. S1 and S2 heard. EXTREMITIES: Normal range of motion. No clubbing or cyanosis. Peripheral pulses intact. Bilateral AKA ASSESSMENT: Persistent atrial fibrillation, rate controlled Elevated troponins, type II [place] Acute on chronic kidney injury Rhabdomyolysis Metabolic encephalopathy Urinary tract infection History of CAD History of heart failure, last EF 45 to 50% Bilateral AKA Diabetes Dementia Obesity PLAN: Continue current cardiac medications Patient may be discharged today from a cardiac standpoint We will follow on a as needed basis. Please reconsult if needed. Nurse practitioner note has been reviewed by physician. Signing provider agrees with the documented findings, assessment, and plan of care documented by LADLE HANDLER as a scribe. Objective - Vital Signs Vital signs: Vital Signs Temp 97.8 F 07/01/23 19:51 Pulse 60 07/02/23 12:23 Resp 18 07/02/23 08:00 BP 134/62 07/02/23 08:00 Pulse Ox 99 07/02/23 08:18 FiO2 Intake & Output 07/01/23 07/02/23 07/02/23 18:59 06:59 18:59 Intake Total 118 10 120 Output Total 700 575 Balance -582 -565 120 Weight 92 kg Intake: IV 10 Invasive Line 6 10 Oral 118 120 Output: Urine 700 575 Other: Voiding Method Indwelling Catheter Indwelling Catheter - Labs CBC & Chem 7: 07/01/23 10:04 07/01/23 10:21 Labs: Abnormal Lab Results - Last 24 Hours (Table) 07/02/23 Range/Units 11:42 POC Glucose (mg/dL) 116 H (70-110) mg/dL
--- NOTE | 2023-07-02 13:01 | P.PN ---
Subjective Progress Note Date: 07/02/23 72-year-old male with past medical history of diabetes, dementia who presents to the emergency department for altered mental status. The patient went to respite care this past weekend. When he returned home and the patient was not his normal self. It was reported that the patient had a fall with possible head injury however was never sent in for evaluation. Patient has not been eating or drinking much. He has low urine output. Patient does have Davidson catheter in place. Patient is alert and oriented x 2. Patient arrives hypotensive. No reported fevers. He does have some bruising noted to his lower abdomen. No signs of head injury appreciated. Patient denies any pain. He does wear 2-4 L of oxygen at all times. No other alleviating, precipitating modifying factors UA was abnormal with many bacteria and white cells and a highly elevated white cell count. Blood work showed a white cell count of 15.6 with a hemoglobin of 10.3. The electrolytes showed a BUN of 111 with a creatinine of 6.55 and a sodium level of 139 and a potassium level of 4.7. The patient has anion gap metabolic acidosis with a gap of 19 and a serum bicarb of 17. LFTs were normal. Troponin was 0.095. Coagulation profile was within normal limits. CAT scan of the brain and cervical spine showed no acute osseous abnormality involving the cervical spine and large anterior vertebral bodies. At the level of C5/C7. The chest x-ray revealed a right basilar pleural-parenchymal opacity and right- sided pleural effusion and this has been smaller in size compared to the chest x-ray from 05/28/2023. EKG showed normal sinus rhythm with LVH criteria and old Q waves involving the inferior leads. 06/28/2023 -the patient is seen and evaluated in room at bedside; transferred out of ICU; remains confused and agitated. -- Restarted on Haldol and the patient is seeming haloperidol 1 mg IM every 4 hours on a as needed basis. Lab review shows -- BUN currently is at 43 with a creatinine of 1.42 and the patient is producing adequate amount of urine output. Sodium is at 144 with a potassium level of 3.6. Serum bicarb is at 22. The risk is at 7.7 with a hemoglobin of 9.5. Rest of the medication have been unchanged. The patient remains on lactated Ringer at a rate of 100 cc an hour. Blood pressure remains markedly elevated; lisinopril has been discontinued due to acute renal failure --We will add metoprolol 25 mg twice daily and titrate dosage as needed 06/28. Patient seen and examined. Patient is confused, only alert to self. Does not look in any acute distress. 06/29. Patient seen and examined. Mental status has improved. Does not look any acute distress. Has good appetite. [facility] Blood work done this morning showed WBC 9.5, hemoglobin 8.8, sodium 141, potassium 3.1, BUN 20, creatinine 1.16 06/30. Patient seen and examined. Patient blood pressure medications were adjusted by cardiology as blood pressure is suboptimally controlled. . Patient seen and examined. Laying comfortably in the bed. Blood pressure has improved compared to yesterday REVIEW OF SYSTEMS: CONSTITUTIONAL: No fever, no malaise,. CARDIOVASCULAR: No chest pain, no palpitations, no syncope. PULMONARY: No shortness of breath, no cough, GASTROINTESTINAL: No diarrhea, no nausea, no vomiting, no abdominal pain. NEUROLOGICAL: No headaches, no weakness, PHYSICAL EXAMINATION: GENERAL: The patient is alert to self, not in any acute distress. Well developed, well nourished. HEENT: Pupils are round and equally reacting to light. EOMI. No scleral icterus. No conjunctival pallor. Normocephalic, atraumatic. No pharyngeal erythema. No thyromegaly. CARDIOVASCULAR: S1 and S2 present. No murmurs, rubs, or gallops. PULMONARY: Chest is clear to auscultation, no wheezing or crackles. ABDOMEN: Soft, nontender, nondistended, normoactive bowel sounds. No palpable organomegaly. MUSCULOSKELETAL: No joint swelling or deformity. EXTREMITIES: Bilateral AKA NEUROLOGICAL: Gross neurological examination did not reveal any focal deficits. SKIN: No rashes. Assessment and plan Acute on chronic kidney disease UTI/sepsis Acute hypotension Troponin leak likely secondary to type II ischemia/systolic CHF Coronary artery disease, with history of previous PCI/stents to the RCA and LAD, most recent intervention done 10/17/22 Chronic systolic heart failure with an ejection fraction of 40 to 45% based on echocardiogram from May 2023 COPD/chronic hypoxic respiratory failure; in exacerbation; Peripheral arterial disease; s/p history of bilateral [id number] amputations Atrial fibrillation; patient rate controlled on anticoagulated on Eliquis, current rhythm is sinus Diabetes mellitus type 2, insulin-dependent; monitor Accu-Cheks before every meal and at bedtime with insulin sliding scale Hypertension Morbid obesity, with a BMI of 52 kg/m Stage I sacral decub ulcer; wound care Monitor vital sign Monitor CBC Monitor CMP Continue Eliquis Continue Norvasc Continue IV Rocephin Continue hydralazine, HCTZ, continue lisinopril Continue Plavix Cardiology following Pulmonology following Nephrology following Labs and medication were reviewed.. Continue same treatment. Continue with symptomatic treatment. Resume home medication. Monitor labs and vitals. DVT and GI prophylaxis. Further recommendations as per clinical course of the patient Dictation was produced using [employer] dictation software. please excuse any grammatical, word or spelling errors. Objective - Vital Signs Vital signs: Vital Signs Temp 97.8 F 07/01/23 19:51 Pulse 60 07/02/23 12:23 Resp 18 07/02/23 08:00 BP 134/62 07/02/23 08:00 Pulse Ox 99 07/02/23 08:18 FiO2 Intake & Output 07/01/23 07/02/23 07/02/23 18:59 06:59 18:59 Intake Total 118 10 120 Output Total 700 575 Balance -582 -565 120 Weight 92 kg Intake: IV 10 Invasive Line 6 10 Oral 118 120 Output: Urine 700 575 Other: Voiding Method Indwelling Catheter Indwelling Catheter - Labs CBC & Chem 7: 07/01/23 10:04 07/01/23 10:21 Labs: Abnormal Lab Results - Last 24 Hours (Table) 07/02/23 Range/Units 11:42 POC Glucose (mg/dL) 116 H (70-110) mg/dL
[2023-07-02 13:06] LABS: Basophils % (A) 0 %; Eosinophils # (A) 0.2 k/uL (0-0.7); Eosinophils % (A) 2 %; HCT 28.5 % (39.0-53.0); HGB 9.1 gm/dL (13.0-17.5); Lymphocytes # (A) 1.3 k/uL (1.0-4.8); Lymphocytes % (A) 11 %; MCH 28.1 pg (25.0-35.0); MCV 87.7 fL (80.0-100.0); Mean Platelet Volume 8.4; Monocytes # (A) 0.5 k/uL (0-1.0); Monocytes % (A) 4 %; Neutrophils # (A) 9.3 k/uL (1.3-7.7); Neutrophils % (A) 80 %; Platelet Count 294 k/uL (150-450); RBC 3.25 m/uL (4.30-5.90); RDW 15.7 % (11.5-15.5); WBC 11.6 k/uL (3.8-10.6)
[2023-07-02 13:10] LABS: ALT 13 U/L (4-49); AST 19 U/L (17-59); African American GFR (CKD) 85 (>60 ml/min/1.73 sqM); Albumin 3.1 g/dL (3.5-5.0); Alkaline Phosphatase 86 U/L (38-126); Anion Gap 10 mmol/L; Blood Urea Nitrogen 13 mg/dL (9-20); Calcium 8.5 mg/dL (8.4-10.2); Carbon Dioxide 20 mmol/L (22-30); Chloride 109 mmol/L (98-107); Glucose 114 mg/dL (74-99); Magnesium 1.7 mg/dL (1.6-2.3); Non-African American GFR(CKD) 74 (>60 ml/min/1.73 sqM); Potassium 3.6 mmol/L (3.5-5.1); Sodium 139 mmol/L (137-145); Total Bilirubin 0.3 mg/dL (0.2-1.3); Total Protein 6.3 g/dL (6.3-8.2)
[2023-07-02 13:29] LABS: Rouleaux Present
--- NOTE | 2023-07-02 15:03 | P.PN ---
Subjective Progress Note Date: 07/02/23 Principal diagnosis: Reason for follow-up is catheter associated UTI Patient is a 72-year-old male with a past medical history significant for diabetes mellitus hypertension hyperlipidemia osteoarthritis peripheral arterial disease in this patient who status post bilateral vpihj-bho-kabh amputation patient presenting to the hospital for evaluation of mental status c hangcora, patient did have a fever positive UA concerning for catheter assisted UTI. On today's evaluation that is 07/02/2023, patient has been afebrile, patient is breathing comfortably and is currently on room air, patient denies having any significant cough no chest pain shortness of breath, patient denies nausea vomiting or diarrhea and no abdominal pain, patient feeling better wants to go home. Patient white count is 11.6, creatinine is 1.03 urine cultures so far negative Objective - Vital Signs Vital signs: Vital Signs Temp 97.8 F 07/01/23 19:51 Pulse 60 07/02/23 12:23 Resp 18 07/02/23 08:00 BP 134/62 07/02/23 08:00 Pulse Ox 99 07/02/23 08:18 FiO2 Intake & Output 07/01/23 07/02/23 07/02/23 18:59 06:59 18:59 Intake Total 118 10 120 Output Total 700 575 Balance -582 -565 120 Weight 92 kg Intake: IV 10 Invasive Line 6 10 Oral 118 120 Output: Urine 700 575 Other: Voiding Method Indwelling Catheter Indwelling Catheter - Exam GENERAL DESCRIPTION: An elderly male lying in bed in no distress RESPIRATORY SYSTEM: Unlabored breathing , decreased breath sounds at bases HEART: S1 S2 regular rate and rhythm , ABDOMEN: Soft , no tenderness EXTREMITIES: Bilateral AKA stump incision intact - Labs CBC & Chem 7: 07/02/23 12:31 07/02/23 12:31 Labs: Abnormal Lab Results - Last 24 Hours (Table) 07/02/23 07/02/23 07/02/23 Range/Units 11:42 12:31 12:31 WBC 11.6 H (3.8-10.6) k/uL RBC 3.25 L (4.30-5.90) m/uL Hgb 9.1 L (13.0-17.5) gm/dL Hct 28.5 L (39.0-53.0) % RDW 15.7 H (11.5-15.5) % Neutrophils # 9.3 H (1.3-7.7) k/uL Chloride 109 H (98-107) mmol/L Carbon Dioxide 20 L (22-30) mmol/L Glucose 114 H (74-99) mg/dL POC Glucose (mg/dL) 116 H (70-110) mg/dL Albumin 3.1 L (3.5-5.0) g/dL Assessment and Plan (1) Catheter-associated urinary tract infection Current Visit: Yes Status: Acute Code(s): T83.511A - I/I REACT D/T INDWELLING URETHRAL CATHETER, INIT; N39.0 - URINARY TRACT INFECTION, SITE NOT SPECIFIED SNOMED Code(s): 719484893 Plan: 1patient presented hospital mental status changes which is likely multifactorial in this patient who did have a positive UA fever concerning for possible catheter associated UTI 2-patient Davidson catheter has been changed 06/29/2023 repeat UA positive cultures pending 3-patient did have some clinical improvement with Rocephin plan is to continue with Rocephin while inpatient finishing therapy with Ceftin Dictation was produced using [employer] dictation software. please excuse any grammatical, word or spelling errors. Time with Patient: Less than 30
[2023-07-02] MEDS: hydrALAZINE HCL 25 MG TAB PO SCH (16:28)
[2023-07-02 16:33] LABS: Glucose,Whole Blood 111 mg/dL (70-110)
[2023-07-02 20:24] LABS: Glucose,Whole Blood 242 mg/dL (70-110)
[2023-07-03 06:07] LABS: Glucose,Whole Blood 107 mg/dL (70-110)
--- NOTE | 2023-07-03 10:39 | P.DS ---
Providers Date of admission: 06/25/23 16:43 Expected date of discharge: 07/03/23 Attending physician: Karen Narayan Consults: 06/25/23 16:42 Consult Physician Stat Consulting Provider: Aileen Ramirez Consult Reason/Comments: hypotension, shanell Do you want consulting provider notified?: Already Contacted Consult Physician Urgent Consulting Provider: Jean-Paul Bello Consult Reason/Comments: shanell Do you want consulting provider notified?: Yes 06/29/23 14:02 Consult Physician Routine Consulting Provider: Juan Del Rosario Consult Reason/Comments: UTI, sepsis Do you want consulting provider notified?: Yes Primary care physician: Stated None Hospital Course: Discharge diagnoses; Acute on chronic kidney disease UTI/sepsis Acute hypotension Troponin leak likely secondary to type II ischemia/systolic CHF Coronary artery disease, with history of previous PCI/stents to the RCA and LAD, most recent intervention done 10/17/22 Chronic systolic heart failure with an ejection fraction of 40 to 45% based on echocardiogram from May 2023 COPD/chronic hypoxic respiratory failure; in exacerbation; Peripheral arterial disease; s/p history of bilateral ookog-gfc-choi ampu tations Atrial fibrillation; patient rate controlled on anticoagulated on Eliquis, current rhythm is sinus Diabetes mellitus type 2, insulin-dependent; monitor Accu-Cheks before every meal and at bedtime with insulin sliding scale Hypertension Morbid obesity, with a BMI of 52 kg/m Stage I sacral decub ulcer; wound care Hospital course; 72-year-old male with past medical history of diabetes, dementia who presents to the emergency department for altered mental status. The patient went to respite care this past weekend. When he returned home and the patient was not his normal self. It was reported that the patient had a fall with possible head injury however was never sent in for evaluation. Patient has not been eating or drinking much. He has low urine output. Patient does have Davidosn catheter in place. Patient is alert and oriented x 2. Patient arrives hypotensive. No reported fevers. He does have some bruising noted to his lower abdomen. No signs of head injury appreciated. Patient denies any pain. He does wear 2-4 L of oxygen at all times. No other alleviating, precipitating modifying factors UA was abnormal with many bacteria and white cells and a highly elevated white cell count. Blood work showed a white cell count of 15.6 with a hemoglobin of 10.3. The electrolytes showed a BUN of 111 with a creatinine of 6.55 and a sodium level of 139 and a potassium level of 4.7. The patient has anion gap metabolic acidosis with a gap of 19 and a serum bicarb of 17. LFTs were normal. Troponin was 0.095. Coagulation profile was within normal limits. CAT scan of the brain and cervical spine showed no acute osseous abnormality involving the cervical spine and large anterior vertebral bodies. At the level of C5/C7. The chest x-ray revealed a right basilar pleural-parenchymal opacity and right- sided pleural effusion and this has been smaller in size compared to the chest x-ray from 05/28/2023. EKG showed normal sinus rhythm with LVH criteria and old Q waves involving the inferior leads. 06/28/2023 -the patient is seen and evaluated in room at bedside; transferred out of ICU; remains confused and agitated. -- Restarted on Haldol and the patient is seeming haloperidol 1 mg IM every 4 hours on a as needed basis. Lab review shows -- BUN currently is at 43 with a creatinine of 1.42 and the patient is producin g adequate amount of urine output. Sodium is at 144 with a potassium level of 3.6. Serum bicarb is at 22. The risk is at 7.7 with a hemoglobin of 9.5. Rest of the medication have been unchanged. The patient remains on lactated Ringer at a rate of 100 cc an hour. Blood pressure remains markedly elevated; lisinopril has been discontinued due to acute renal failure --We will add metoprolol 25 mg twice daily and titrate dosage as needed 06/28. Patient seen and examined. Patient is confused, only alert to self. Does not look in any acute distress. 06/29. Patient seen and examined. Mental status has improved. Does not look any acute distress. Has good appetite. Will be downgraded to MedSurg. Blood work done this morning showed WBC 9.5, hemoglobin 8.8, sodium 141, potassium 3.1, BUN 20, creatinine 1.16 06/30. Patient seen and examined. Patient blood pressure medications were adjusted by cardiology as blood pressure is suboptimally controlled. . Patient seen and examined. Laying comfortably in the bed. Blood pressure has improved compared to yesterday 07/02. Patient seen and examined. Being discharged in stable condition. Outpatient follow-up with cardiology and nephrology. ID recommend 3 more days of Ceftin. PHYSICAL EXAMINATION: GENERAL: The patient is alert to self, not in any acute distress. Well developed, well nourished. HEENT: Pupils are round and equally reacting to light. EOMI. No scleral icterus. No conjunctival pallor. Normocephalic, atraumatic. No pharyngeal erythema. No thyromegaly. CARDIOVASCULAR: S1 and S2 present. No murmurs, rubs, or gallops. PULMONARY: Chest is clear to auscultation, no wheezing or crackles. ABDOMEN: Soft, nontender, nondistended, normoactive bowel sounds. No palpable organomegaly. MUSCULOSKELETAL: No joint swelling or deformity. EXTREMITIES: Bilateral AKA NEUROLOGICAL: Gross neurological examination did not reveal any focal deficits. SKIN: No rashes. Dictation was produced using [email or web address] dictation software. please excuse any grammatical, word or spelling errors. Patient Condition at Discharge: Fair Plan - Discharge Summary Discharge Rx Participant: Yes New Discharge Prescriptions: New hydrALAZINE HCL [Apresoline] 75 mg PO TID 30 Days #90 tab cefUROXime axetiL [Ceftin] 500 mg PO BID 3 Days #6 tab hydroCHLOROthiazide [Hydrodiuril] 25 mg PO DAILY #30 tab Metoprolol Tartrate [Lopressor] 25 mg PO BID 30 Days #60 tab Spironolactone [Aldactone] 25 mg PO DAILY 30 Days #30 tab amLODIPine [Norvasc] 10 mg PO DAILY #30 tab Sodium Bicarbonate Tab 650 mg PO BID #60 tab lisinopriL [Zestril] 20 mg PO BID 30 Days #60 tab Continue traZODone HCL 50 mg PO HS Cholecalciferol [Vitamin D3 (25 Mcg = 1000 Iu)] 25 mcg PO DAILY Budesonide [Pulmicort] 0.5 mg INHALATION RT-BID Dapagliflozin Propanediol [Farxiga] 10 mg PO DAILY #30 tab Apixaban [Eliquis] 5 mg PO BID 30 Days #30 tab Insulin Glargine,Hum.rec.anlog [Lantus Solostar Pen] 20 units SQ BID Ipratropium-Albuterol Nebulize [Duoneb 0.5 mg-3 mg/3 ml Soln] 3 ml INHALATION RT-QID Nitroglycerin Sl Tabs [Nitrostat] 0.4 mg SL Q5M PRN PRN Reason: Chest Pain bisacodyL [Dulcolax] 10 mg RECTAL Q72H PRN PRN Reason: Constipation Haloperidol Oral Soln [Haldol Oral Soln] 0.5 - 1 mg PO Q4H PRN PRN Reason: restless/agitation/hiccups Prochlorperazine Suppository [Compazine] 25 mg RECTAL Q12H PRN PRN Reason: Nausea And Vomiting Tamsulosin [Flomax] 0.4 mg PO DAILY Famotidine [Pepcid] 20 mg PO BID Acetaminophen [Tylenol Arthritis] 650 mg PO Q6H PRN PRN Reason: Fever And/ Or Pain Clopidogrel [Plavix] 75 mg PO DAILY #30 tab HYDROcodone/APAP 5-325MG [[place] 5-325] 1 tab PO Q6HR PRN 3 Days #12 tab PRN Reason: Pain Ipratropium-Albuterol Nebulize [Duoneb 0.5 mg-3 mg/3 ml Soln] 3 ml INHALATION RT-Q2H PRN each PRN Reason: Shortness Of Breath Or Wheezing Escitalopram [Lexapro] 20 mg PO DAILY Insulin Lispro [humaLOG Kwikpen] See Protocol SQ ACHS Acetaminophen Suppository [Tylenol Suppository] 650 mg RECTAL Q4H PRN PRN Reason: Fever Hyoscyamine Sulfate [Levsin-Sl] 0.125 mg SL Q4H PRN PRN Reason: excess secretions LORazepam [Ativan] 0.5 - 1 mg PO Q4H PRN PRN Reason: Anxiety MORPHINE ORAL JUSTYNA CONC 20mg/mL [Roxanol Oral Soln Conc 20MG/ML] 5 - 20 mg PO Q4HR PRN PRN Reason: Pain Sennosides/Docusate Sodium [Senna-S 8.6-50 mg Tablet] 1 tab PO BID PRN PRN Reason: Constipation Discontinued Furosemide [Lasix] 80 mg PO DAILY 30 Days #30 tab Furosemide [Lasix] 40 mg PO DAILY@1600 lisinopriL [Zestril] 10 mg PO BID 30 Days #30 tab Discharge Medication List traZODone HCL 50 mg PO HS 11/09/17 [History] Acetaminophen [Tylenol Arthritis] 650 mg PO Q6H PRN 09/29/22 [History] Budesonide [Pulmicort] 0.5 mg INHALATION RT-BID 09/29/22 [History] Cholecalciferol [Vitamin D3 (25 Mcg = 1000 Iu)] 25 mcg PO DAILY 09/29/22 [History] Famotidine [Pepcid] 20 mg PO BID 09/29/22 [History] Tamsulosin [Flomax] 0.4 mg PO DAILY 09/29/22 [History] Clopidogrel [Plavix] 75 mg PO DAILY #30 tab 10/01/22 [Rx] HYDROcodone/APAP 5-325MG [[place] 5-325] 1 tab PO Q6HR PRN 3 Days #12 tab 10/01/22 [Rx] Dapagliflozin Propanediol [Farxiga] 10 mg PO DAILY #30 tab 10/20/22 [Rx] Ipratropium-Albuterol Nebulize [Duoneb 0.5 mg-3 mg/3 ml Soln] 3 ml INHALATION RT-Q2H PRN each 11/03/22 [Rx] Apixaban [Eliquis] 5 mg PO BID 30 Days #30 tab 12/10/22 [Rx] Escitalopram [Lexapro] 20 mg PO DAILY 05/25/23 [History] Insulin Glargine,Hum.rec.anlog [Lantus Solostar Pen] 20 units SQ BID 05/25/23 [History] Insulin Lispro [humaLOG Kwikpen] See Protocol SQ ACHS 05/25/23 [History] Ipratropium-Albuterol Nebulize [Duoneb 0.5 mg-3 mg/3 ml Soln] 3 ml INHALATION RT-QID 05/25/23 [History] Nitroglycerin Sl Tabs [Nitrostat] 0.4 mg SL Q5M PRN 05/25/23 [History] Acetaminophen Suppository [Tylenol Suppository] 650 mg RECTAL Q4H PRN 06/25/23 [History] Haloperidol Oral Soln [Haldol Oral Soln] 0.5 - 1 mg PO Q4H PRN 06/25/23 [History] Hyoscyamine Sulfate [Levsin-Sl] 0.125 mg SL Q4H PRN 06/25/23 [History] LORazepam [Ativan] 0.5 - 1 mg PO Q4H PRN 06/25/23 [History] MORPHINE ORAL JUSTYNA CONC 20mg/mL [Roxanol Oral Soln Conc 20MG/ML] 5 - 20 mg PO Q4HR PRN 06/25/23 [History] Prochlorperazine Suppository [Compazine] 25 mg RECTAL Q12H PRN 06/25/23 [History] Sennosides/Docusate Sodium [Senna-S 8.6-50 mg Tablet] 1 tab PO BID PRN 06/25/23 [History] bisacodyL [Dulcolax] 10 mg RECTAL Q72H PRN 06/25/23 [History] Metoprolol Tartrate [Lopressor] 25 mg PO BID 30 Days #60 tab 07/03/23 [Rx] Sodium Bicarbonate Tab 650 mg PO BID #60 tab 07/03/23 [Rx] Spironolactone [Aldactone] 25 mg PO DAILY 30 Days #30 tab 07/03/23 [Rx] amLODIPine [Norvasc] 10 mg PO DAILY #30 tab 07/03/23 [Rx] cefUROXime axetiL [Ceftin] 500 mg PO BID 3 Days #6 tab 07/03/23 [Rx] hydrALAZINE HCL [Apresoline] 75 mg PO TID 30 Days #90 tab 07/03/23 [Rx] hydroCHLOROthiazide [Hydrodiuril] 25 mg PO DAILY #30 tab 07/03/23 [Rx] lisinopriL [Zestril] 20 mg PO BID 30 Days #60 tab 07/03/23 [Rx] Follow up Appointment(s)/Referral(s): [facility] [NON-STAFF] - 1-2 Days [facility] Visiting Nurse, [NON-STAFF] - Crystal Louise MD [STAFF PHYSICIAN] - 1 Week Cem Morgan MD [STAFF PHYSICIAN] - 1 Week Activity/Diet/Wound Care/Special Instructions: Ambulance form placed in chart. Discharge/Stand Alone Forms: Who Do I Call?, Help In The Home, Personal Delivery Analyst Discharge Disposition: HOME SELF-CARE
--- NOTE | 2023-07-03 10:40 | P.PN ---
Subjective patient is seen for follow-up for acute kidney injury and chronic kidney disease. Renal function has been stable. mentation seems to be much improved. Objective - Vital Signs Vital signs: Vital Signs Temp 96.6 F L 07/02/23 23:05 Pulse 60 07/03/23 09:41 Resp 16 07/03/23 04:00 BP 155/70 07/03/23 04:00 Pulse Ox 99 07/03/23 09:30 FiO2 Intake & Output 07/02/23 07/03/23 07/03/23 18:59 06:59 18:59 Intake Total 360 5 240 Output Total 1250 500 Balance -890 -495 240 Weight 92 kg Intake: IV 5 Invasive Line 6 5 Oral 360 240 Output: Urine 1250 500 Other: Voiding Method Indwelling Catheter Indwelling Catheter - Exam sleeping but arousable. Comfortable Examination of the heart S1 and S2 Examination of the lungs bilateral breath sounds are heard Abdomen is soft nontender Examination of lower extremities shows bilateral above-knee amputations - Labs CBC & Chem 7: 07/02/23 12:31 07/02/23 12:31 Labs: Abnormal Lab Results - Last 24 Hours (Table) 07/02/23 07/02/23 07/02/23 Range/Units 11:42 12:31 12:31 WBC 11.6 H (3.8-10.6) k/uL RBC 3.25 L (4.30-5.90) m/uL Hgb 9.1 L (13.0-17.5) gm/dL Hct 28.5 L (39.0-53.0) % RDW 15.7 H (11.5-15.5) % Neutrophils # 9.3 H (1.3-7.7) k/uL Chloride 109 H (98-107) mmol/L Carbon Dioxide 20 L (22-30) mmol/L Glucose 114 H (74-99) mg/dL POC Glucose (mg/dL) 116 H (70-110) mg/dL Albumin 3.1 L (3.5-5.0) g/dL 07/02/23 07/02/23 Range/Units 16:32 20:23 WBC (3.8-10.6) k/uL RBC (4.30-5.90) m/uL Hgb (13.0-17.5) gm/dL Hct (39.0-53.0) % RDW (11.5-15.5) % Neutrophils # (1.3-7.7) k/uL Chloride (98-107) mmol/L Carbon Dioxide (22-30) mmol/L Glucose (74-99) mg/dL POC Glucose (mg/dL) 111 H 242 H (70-110) mg/dL Albumin (3.5-5.0) g/dL Assessment and Plan Assessment: 1. Acute kidney injury secondary to ATN secondary to hypotension/shock. Creatinine 6.55 on admission and is down to 1.0 . No hydronephrosis noted on kidney ultrasound. status post IV fluids. 2. Chronic kidney disease stage IIIa with baseline creatinine 1.2-1.3 secondary to nephrosclerosis. 3. Metabolic acidosis secondary to acute kidney injury s/p bicarb drip. 4. UTI maintained on antibiotics. 5. Chronic systolic CHF ejection fraction of 45 to 50%. 6. Diabetes mellitus. 7. Hypokalemia from poor intake and post ATN diuresis. 8. Anemia. iron deficiency noted. status post IV iron Plan: continue to encourage increase oral intake. continue oral sodium bicarb post discharge.
[2023-07-03 11:28] VITALS: BP 125/57; RESP 18; TEMP 97.7
[2023-07-03 11:41] LABS: Glucose,Whole Blood 163 mg/dL (70-110)
[2023-07-03 12:56] VITALS: PULSE 62
--- NOTE | 2023-07-03 14:43 | P.PN ---
Subjective Progress Note Date: 07/03/23 Principal diagnosis: Reason for follow-up is catheter associated UTI Patient is a 72-year-old male with a past medical history significant for diabetes mellitus hypertension hyperlipidemia osteoarthritis peripheral arterial disease in this patient who status post bilateral [id number] amputation patient presenting to the hospital for evaluation of mental status c hangcora, patient did have a fever positive UA concerning for catheter assisted UTI. On today's evaluation that is 07/03/2023,the patient denies any fever or any chills, patient is breathing comfortably on room air, the patient denies chest pain shortness of breath and no significant cough, patient denies abdominal pain, no nausea vomiting or diarrhea. Feeling better wants to go home no labs were obtained today culture has been negative Objective - Vital Signs Vital signs: Vital Signs Temp 96.6 F L 07/02/23 23:05 Pulse 60 07/03/23 04:00 Resp 16 07/03/23 04:00 BP 155/70 07/03/23 04:00 Pulse Ox 97 07/03/23 04:00 FiO2 Intake & Output 07/02/23 07/03/23 07/03/23 18:59 06:59 18:59 Intake Total 360 5 Output Total 1250 500 Balance -890 -495 Weight 92 kg Intake: IV 5 Invasive Line 6 5 Oral 360 Output: Urine 1250 500 Other: Voiding Method Indwelling Catheter Indwelling Catheter - Exam GENERAL DESCRIPTION: An elderly male lying in bed in no distress RESPIRATORY SYSTEM: Unlabored breathing , decreased breath sounds at bases HEART: S1 S2 regular rate and rhythm , ABDOMEN: Soft , no tenderness EXTREMITIES: Bilateral AKA stump incision intact - Labs CBC & Chem 7: 07/02/23 12:31 07/02/23 12:31 Labs: Abnormal Lab Results - Last 24 Hours (Table) 07/02/23 07/02/23 07/02/23 Range/Units 11:42 12:31 12:31 WBC 11.6 H (3.8-10.6) k/uL RBC 3.25 L (4.30-5.90) m/uL Hgb 9.1 L (13.0-17.5) gm/dL Hct 28.5 L (39.0-53.0) % RDW 15.7 H (11.5-15.5) % Neutrophils # 9.3 H (1.3-7.7) k/uL Chloride 109 H (98-107) mmol/L Carbon Dioxide 20 L (22-30) mmol/L Glucose 114 H (74-99) mg/dL POC Glucose (mg/dL) 116 H (70-110) mg/dL Albumin 3.1 L (3.5-5.0) g/dL 07/02/23 07/02/23 Range/Units 16:32 20:23 WBC (3.8-10.6) k/uL RBC (4.30-5.90) m/uL Hgb (13.0-17.5) gm/dL Hct (39.0-53.0) % RDW (11.5-15.5) % Neutrophils # (1.3-7.7) k/uL Chloride (98-107) mmol/L Carbon Dioxide (22-30) mmol/L Glucose (74-99) mg/dL POC Glucose (mg/dL) 111 H 242 H (70-110) mg/dL Albumin (3.5-5.0) g/dL Assessment and Plan (1) Catheter-associated urinary tract infection Status: Acute Code(s): T83.511A - I/I REACT D/T INDWELLING URETHRAL CATHETER, INIT; N39.0 - URINARY TRACT INFECTION, SITE NOT SPECIFIED SNOMED Code(s): 624183606 Plan: 1patient presented hospital mental status changes which is likely multifactorial in this patient who did have a positive UA fever concerning for possible catheter associated UTI 2-patient Davidson catheter has been changed 06/29/2023 repeat UA positive cultures pending 3-patient did have clinical improvement, blood culture negative urine culture so far negative as well short course of oral Ceftin on discharge discussed with admitting team Dictation was produced using [employer] dictation software. please excuse any grammatical, word or spelling errors. Time with Patient: Less than 30
== END 2023-07-03 13:42 | disposition home or self-care (01) | DRG 698 ==
LOC: EC 13:43 → 2SICU 16:43 → 3SCARD 06-28 06:40
PROVIDERS: ADMIT Hospitalist; ATTEND Hospitalist
DX: T83.518A Infection and inflammatory reaction due to other urinary catheter, initial encounter (principal); A41.9 Sepsis, unspecified organism; G93.41 Metabolic encephalopathy; I21.A1 Myocardial infarction type 2; N17.0 Acute kidney failure with tubular necrosis; R65.20 Severe sepsis without septic shock; N39.0 Urinary tract infection, site not specified; I13.0 Hypertensive heart and chronic kidney disease with heart failure and stage 1 through stage 4 chronic kidney disease, or unspecified chronic kidney disease; I50.22 Chronic systolic (congestive) heart failure; J96.11 Chronic respiratory failure with hypoxia; R57.9 Shock, unspecified; Z68.43 Body mass index [BMI] 50.0-59.9, adult; E87.20 Acidosis, unspecified; I48.19 Other persistent atrial fibrillation; J44.1 Chronic obstructive pulmonary disease with (acute) exacerbation; F03.94 Unspecified dementia, unspecified severity, with anxiety; E78.5 Hyperlipidemia, unspecified; I48.0 Paroxysmal atrial fibrillation; N18.31 Chronic kidney disease, stage 3a; Z99.81 Dependence on supplemental oxygen; L89.151 Pressure ulcer of sacral region, stage 1; E66.01 Morbid (severe) obesity due to excess calories; E11.22 Type 2 diabetes mellitus with diabetic chronic kidney disease; E11.51 Type 2 diabetes mellitus with diabetic peripheral angiopathy without gangrene; T79.6XXA Traumatic ischemia of muscle, initial encounter; E11.649 Type 2 diabetes mellitus with hypoglycemia without coma; E87.6 Hypokalemia; E86.0 Dehydration; X58.XXXA Exposure to other specified factors, initial encounter; D50.9 Iron deficiency anemia, unspecified; F32.A Depression, unspecified; I25.10 Atherosclerotic heart disease of native coronary artery without angina pectoris; I87.8 Other specified disorders of veins; E11.42 Type 2 diabetes mellitus with diabetic polyneuropathy; M19.90 Unspecified osteoarthritis, unspecified site; K21.9 Gastro-esophageal reflux disease without esophagitis; Z86.14 Personal history of Methicillin resistant Staphylococcus aureus infection; M19.041 Primary osteoarthritis, right hand; M19.042 Primary osteoarthritis, left hand; W19.XXXA Unspecified fall, initial encounter; Y84.6 Urinary catheterization as the cause of abnormal reaction of the patient, or of later complication, without mention of misadventure at the time of the procedure; E11.36 Type 2 diabetes mellitus with diabetic cataract; Z79.01 Long term (current) use of anticoagulants; Z79.02 Long term (current) use of antithrombotics/antiplatelets; Z79.4 Long term (current) use of insulin; Z79.84 Long term (current) use of oral hypoglycemic drugs; Z79.899 Other long term (current) drug therapy; Z89.611 Acquired absence of right leg above knee; Z89.612 Acquired absence of left leg above knee; Z95.5 Presence of coronary angioplasty implant and graft
CPT/HCPCS: 36415; 70450; 71046; 72125; 76770; 80048; 80053; 80320; 81001; 82140; 82272; 82550; 82728; 83540; 83550; 83735; 84132; 84484; 85025; 85610; 85730; 87040; 87086; 87324; 93005; 93975; 94640; 94760; 96361; 96374; 96375; 99291

== ENCOUNTER 2023-10-02 16:37 | Inpatient (IN) | payer MEDICARE ==
--- NOTE | 2023-10-02 16:59 | ED ---
General Adult HPI - General Chief complaint: Shortness of Breath Stated complaint: weakness Time Seen by Provider: 10/02/23 16:40 Source: EMS Mode of arrival: EMS - History of Present Illness Initial comments: History is limited by patient's dementia. Patient is a 73-year-old male HX BILATERAL AKA, COPD, presenting via EMS for generalized weakness. - Related Data Home Medications Medication Instructions Recorded Confirmed traZODone HCL 50 mg PO HS 11/09/17 10/02/23 Famotidine [Pepcid] 20 mg PO BID 09/29/22 10/02/23 Tamsulosin [Flomax] 0.4 mg PO DAILY 09/29/22 10/02/23 Escitalopram [Lexapro] 20 mg PO DAILY 05/25/23 10/02/23 Insulin Glargine,Hum.rec.anlog 15 units SQ BID 05/25/23 10/02/23 [Lantus Solostar Pen] LORazepam [Ativan] 0.5 mg PO BID PRN 06/25/23 10/02/23 Clopidogrel [Plavix] 75 mg PO DAILY 10/02/23 10/02/23 Glycopyrrolate 1 mg PO TID PRN 10/02/23 10/02/23 HYDROcodone/APAP 7.5-325MG [Felda 1 tab PO Q6HR PRN 10/02/23 10/02/23 7.5-325] Sennosides [Senokot] 8.6 mg PO DAILY 10/02/23 10/02/23 Previous Rx's Medication Instructions Recorded Sodium Bicarbonate Tab 650 mg PO BID #60 tab 07/03/23 Spironolactone [Aldactone] 25 mg PO DAILY 30 Days #30 tab 07/03/23 amLODIPine [Norvasc] 10 mg PO DAILY #30 tab 07/03/23 Amoxic-Pot Clav 875-125Mg 1 tab PO Q12HR 4 Days #8 tab 10/06/23 [Augmentin 875-125] Allergies Allergy/AdvReac Type Severity Reaction Status Date / Time No Known Allergies Allergy Verified 10/02/23 16:59 Review of Systems ROS Statement: Those systems with pertinent positive or pertinent negative responses have been documented in the HPI. Review of systems limited due to patient's current mental status, possible dementia reported by EMS. Patient is able to shake head "no" when asked about chest and abdominal pain ROS Other: All systems not noted in ROS Statement are negative. 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 Date of last positivie culture/infection: 10/28/22 MDRO Source:: Blood Past Surgical History: Heart Catheterization Additional Past Surgical History / Comment(s): bilateral great toes amputated, 2nd toe lt foot partial amputation, multiple debridements of venous ulcers, colonoscopy, surgery as a child for undescended testicle., ABOVE THE KNEE AMPUTATION RIGHT LEG (JUNE 2017-[facility]) Past Anesthesia/Blood Transfusion Reactions: No Reported Reaction Date of Last Stent Placement:: 10/17/2022 Past Psychological History: Anxiety, Depression Smoking Status: Former smoker - Past Family History Father Family Medical History: Cancer Additional Family Medical History / Comment(s): Father from brain cancer Mother Family Medical History: Eye Disorder Additional Family Medical History / Comment(s): Glaucoma. Mother is . General Exam - General Exam Comments Initial Comments: PE: CONSTITUTIONAL: no apparent distress, ill-appearing, disheveled SKIN: warm, dry, no jaundice, hives or petechiae. Erythematous stage II decubitus ulcer with skin sloughing, no crepitus, no discharge EYES: pupils are equally round, extraocular movements intact without nystagmus, clear conjunctiva, non-icteric sclera HENT: normocephalic, atraumatic, dry mucus membranes, oropharynx clear without exudates NECK: Nontender and supple with no nuchal rigidity, ull range of motion PULMONARY: Rhonchi and rales in the bilateral lower-mid lung [place], worse on the right than the left, normal excursion, no accessory muscle use and no stridor CARDIOVASCULAR: regular rate, rhythm, normal S1 and S2. No appreciated murmurs. Strong radial pulses with intact distal perfusion GASTROINTESTINAL: soft, non-tender, non-distended, no palpable masses, no rebound or guarding MUSCULOSKELETAL: Upper extremities have no gross deformity, no edema, redness, or swelling, bilateral AKA NEUROLOGIC: _a/o x 2, oriented to self and place, GCS 14, shakes head and nods head to answer questions, gives some one-word answers. Moves all extremities x 4 without motor or sensory deficit PSYCHIATRIC: _limited by current mental status, dementia, is calm and cooperative Course Vital Signs 10/02/23 10/02/23 10/02/23 16:40 18:16 23:34 Temperature 100.4 F H Pulse Rate 63 79 87 Respiratory 20 18 20 Rate Blood Pressure 129/83 160/73 146/55 O2 Sat by Pulse 94 L 95 97 Oximetry - Reevaluation(s) Reevaluation #1: Labs significant for leukocytosis, white blood cell count 15.2, hemoglobin 10.7, neutrophils 13.1, BUN 22 creatinine 1.03, GFR 1 83, troponin 0.057, I suspect secondary to demand ischemia from sepsis. 500 cc IV fluid ordered, full 30 cc/kg bolus has not been ordered due to decreased ejection fraction of 40 to 45%, to prevent fluid overload. 10/02/23 18:27 10/07/23 12:56 Reevaluation #2: CT chest abdomen pelvis performed, significant report for patchy airspace opacities in the left lung concerning for pneumonia, moderate right pleural effusion with associated atelectasis, no acute abdominal process. I reviewed patient's CT scan and agree with radiologist interpretation, noted moderate right-sided pleural effusion, atelectasis in the left lung. No acute abdominal process noted 10/02/23 19:40 10/07/23 12:55 EKG Findings - EKG Comments: EKG Findings:: EKG interpretation. Ectopic atrial bradycardia. heart rate 47 bpm, first-degree AV the block. NV interval 271, QRS 130 ms. QT/QTc 499/461 ms. Normal axis. Artifact present throughout, no ST elevation, no significant ST depression compared to EKG performed on 10/26/2022, patient appears to be in sinus bradycardia Medical Decision Making - Medical Decision Making Was pt. sent in by a medical professional or institution (, PA, [employer], urgent care, hospital, or [place] health [place] facility...) When possible be specific @ -No Did you speak to anyone other than the patient for history (EMS, parent, family, police, friend...)? What history was obtained from this source @ -Spoke with EMS who state that they were called to the patient's home due to worsening weakness and difficulty in breathing. They state that patient was recently started on home oxygen therapy, they are unsure how much patient wears at baseline, stated he has had a wet cough and coarse breath sounds on the right side concerning for possible pneumonia Did you review nursing and triage notes (agree or disagree)? Why? @ -I reviewed and agree with nursing and triage notes Were old charts reviewed (outside hosp., previous admission, EMS record, old EKG, old radiological studies, urgent care reports/EKG's, [place] health care facility records)? Report findings @ -Patient reportedly admitted to [facility] recently for pneumonia. No records visible from [facility]. Last medical note was from 06/29/2023 for which it appears patient was admitted for UTI, sepsis and altered mental status. Differential Diagnosis (chest pain, altered mental status, abdominal pain women, abdominal pain men, vaginal bleeding, weakness, fever, dyspnea, syncope, headache, dizziness, GI bleed, back pain, seizure, CVA, palpatations, mental health, musculoskeletal)? @ -Differential Weakness: Hypoglycemia, sepsis, hyponatremia, anemia, infection, ACS ETOH, adverse medicine reaction this is not meant to be an all-inclusive list. EKG interpreted by me (3pts min.). @ -As above X-rays interpreted by me (1pt min.). @ -None done CT interpreted by me (1pt min.). @ -Please see ED course U/S interpreted by me (1pt. min.). @ -None done What testing was considered but not performed or refused? (CT, X-rays, U/S, labs)? Why? @ -Consider chest x-ray however out of unclear etiology for patient's generalized weakness and suspected sepsis CT chest abdomen and pelvis were obtained instead to evaluate for sources of sepsis, considered CT brain however upon further discussion with patient's daughter, who arrived at bedside shortly after patient's arrival patient is at his baseline mental status but EMS was called 2/2 generalized weakness and increasingly productive cough, as reported by EMS, additionally patient has no focal neurologic deficits, strength in the bilateral upper extremities is equal, no evidence of head trauma so at this point CT brain was not indicated What meds were considered but not given or refused? Why? @ -Consider administering entire 30 cc/kg bolus however reviewed patient's most recent echocardiogram which showed ejection fraction of 40 to 45% so in order to avoid volume overload 1 L bolus given Did you discuss the management of the patient with other professionals (professionals i.e. , PA, [employer], lab, RT, psych nurse, social studies teacher, color straining bag washer, teacher, banking services officer, clinical case manager)? Give summary @ -No Was smoking cessation discussed for >3mins.? @ -No Was critical care preformed (if so, how long)? @ -Yes 35 minutes, performed examining patient, obtaining hx from surrogate (daughter and EMS), ordering and interpreting labs and imaging, ordering treatment Were there social determinants of health that impacted care today? How? (Homelessness, low income, unemployed, alcoholism, drug addiction, t ransportation, low edu. Level, literacy, decrease access to med. care, nursing home, rehab)? @ -No Was there de-escalation of care discussed even if they declined (Discuss DNR or withdrawal of care, Hospice)? DNR status @ -No What co-morbidities impacted this encounter? (DM, HTN, Smoking, COPD, CAD, Cancer, CVA, ARF, Chemo, Hep., AIDS, mental health diagnosis, sleep apnea, morbid obesity)? @ -Dementia ,COPD, AKA amputtee Was patient admitted / discharged? Hospital course, mention meds given and route, prescriptions, significant lab abnormalities, going to OR and other pertinent info. @ -Hospital course Patient is a 73-year-old gentleman presenting via EMS after they were called to the patient's home by patient's family for worsening weakness, worsening cough productive of increasing amounts of sputum. Patient seen and assessed on arrival. He is sitting upright, awake and alert, able to follow commands, able to communicate that he is more comfortable sitting upright as opposed to lying flat, shakes his head no when asked if having chest or abdominal pain. Rectal temperature was obtained and patient was noted to be febrile. Patient noted of dry mucous membranes, rhonchi and rales in bilateral lung [place] worse on the right than the left, sacral wound, stage 1-2, RN, Alfreda, present as process control technician, appears disheveled. Oriented to self, unsure of date, knows that he is in [facility]. Patient arrives on 4L NC, downtitrated to 2L on arrival. Plan for sepsis workup, suspect source is pneumonia, Rocephin and azithromycin ordered, EKG, sputum culture, 500 cc bolus, troponin, coagulation studies, CBC, influenza testing, urinalysis, TSH, lactic, blood cultures x 2. Please see ED course for results and interpretation of labs and imaging. Daughter later arrived to bedside, reported that patient has had worsening weakness, cough productive of sputum, shortness of breath and diarrhea over the last 2 to 3 days. He typically did not wear oxygen continuously however daughter applied oxygen today 2/2 patient's shortness of breath. She reports that patient is currently at his mental baseline with the exception of his generalized weakness. We discussed plan for admission. Patient's daughter agree with plan of care. Patient admitted for sepsis secondary to pneumonia vs UTI. Patient admitted to [facility]. Spoke with Dr. Luke. Admission orders placed. Home meds ordered. Undiagnosed new problem with uncertain prognosis? @ -Yes, sepsis secondary to pneumonia versus Drug Therapy requiring intensive monitoring for toxicity (Heparin, Nitro, Insulin, Cardizem)? @ -No Were any procedures done? @ -No Diagnosis/symptom? @ -Sepsis Acute, or Chronic, or Acute on Chronic? @ -Acute Uncomplicated (without systemic symptoms) or Complicated (systemic symptoms)? @ -Complicated Side effects of treatment? @ -No Exacerbation, Progression, or Severe Exacerbation? @ -No Poses a threat to life or bodily function? How? (Chest pain, USA, RI, pneumonia, PE, COPD, DKA, ARF, appy, cholecystitis, CVA, Diverticulitis, Homicidal, Suicidal, threat to staff... and all critical care pts) @ -Yes, if sepsis allowed to progress untreated could lead to septic shock and - Lab Data Result diagrams: 10/06/23 07:41 10/06/23 07:26 Lab Results 10/02/23 10/02/23 10/02/23 Range/Units 17:08 17:08 17:08 WBC 15.2 H (3.8-10.6) k/uL RBC 3.89 L (4.30-5.90) m/uL Hgb 10.7 L (13.0-17.5) gm/dL Hct 33.2 L (39.0-53.0) % MCV 85.2 (80.0-100.0) fL MCH 27.4 (25.0-35.0) pg MCHC 32.2 (31.0-37.0) g/dL RDW 15.5 (11.5-15.5) % Plt Count 305 (150-450) k/uL MPV 8.2 Neutrophils % 86 % Lymphocytes % 7 % Monocytes % 5 % Eosinophils % 1 % Basophils % 0 % Neutrophils # 13.1 H (1.3-7.7) k/uL Lymphocytes # 1.1 (1.0-4.8) k/uL Monocytes # 0.8 (0-1.0) k/uL Eosinophils # 0.2 (0-0.7) k/uL Basophils # 0.0 (0-0.2) k/uL Hypochromasia Slight PT 11.3 (10.0-12.5) sec INR 1.0 (<1.2) APTT 26.6 (22.0-30.0) sec Sodium (137-145) mmol/L Potassium (3.5-5.1) mmol/L Chloride (98-107) mmol/L Carbon Dioxide (22-30) mmol/L Anion Gap mmol/L BUN (9-20) mg/dL Creatinine (0.66-1.25) mg/dL Est GFR (CKD-EPI)AfAm (>60 ml/min/1.73 sqM) Est GFR (CKD-EPI)NonAf (>60 ml/min/1.73 sqM) Glucose (74-99) mg/dL Estimated Ave Glu mg/dL mg/dL Hemoglobin A1c (<=6.0) % Plasma Lactic Acid Ata (0.7-2.0) mmol/L Calcium (8.4-10.2) mg/dL Total Bilirubin (0.2-1.3) mg/dL AST (17-59) U/L ALT (4-49) U/L Alkaline Phosphatase (38-126) U/L Troponin I (0.000-0.034) ng/mL Total Protein (6.3-8.2) g/dL Albumin (3.5-5.0) g/dL TSH (0.465-4.680) mIU/L Urine Color Colorless Urine Appearance Cloudy (Clear) Urine pH 6.0 (5.0-8.0) Ur Specific [place] 1.017 (1.001-1.035) Urine Protein 2+ H (Negative) Urine Glucose (UA) Negative (Negative) Urine Ketones Negative (Negative) Urine Blood Moderate H (Negative) Urine Nitrite Negative (Negative) Urine Bilirubin Negative (Negative) Urine Urobilinogen <2.0 (<2.0) mg/dL Ur Leukocyte Esterase Large H (Negative) Urine RBC 38 H (0-5) /hpf Urine WBC 76 H (0-5) /hpf Urine WBC Clumps Rare H (None) /hpf Ur Squamous Epith Cells <1 (0-4) /hpf Urine Bacteria Rare H (None) /hpf Urine Mucus Rare H (None) /hpf Influenza Type A RNA (Not Detectd) Influenza Type B (PCR) (Not Detectd) 10/02/23 10/02/23 10/02/23 Range/Units 17:08 17:08 17:08 WBC (3.8-10.6) k/uL RBC (4.30-5.90) m/uL Hgb (13.0-17.5) gm/dL Hct (39.0-53.0) % MCV (80.0-100.0) fL MCH (25.0-35.0) pg MCHC (31.0-37.0) g/dL RDW (11.5-15.5) % Plt Count (150-450) k/uL MPV Neutrophils % % Lymphocytes % % Monocytes % % Eosinophils % % Basophils % % Neutrophils # (1.3-7.7) k/uL Lymphocytes # (1.0-4.8) k/uL Monocytes # (0-1.0) k/uL Eosinophils # (0-0.7) k/uL Basophils # (0-0.2) k/uL Hypochromasia PT (10.0-12.5) sec INR (<1.2) APTT (22.0-30.0) sec Sodium 137 (137-145) mmol/L Potassium 4.5 (3.5-5.1) mmol/L Chloride 103 (98-107) mmol/L Carbon Dioxide 25 (22-30) mmol/L Anion Gap 9 mmol/L BUN 22 H (9-20) mg/dL Creatinine 1.03 (0.66-1.25) mg/dL Est GFR (CKD-EPI)AfAm 84 (>60 ml/min/1.73 sqM) Est GFR (CKD-EPI)NonAf 73 (>60 ml/min/1.73 sqM) Glucose 143 H (74-99) mg/dL Estimated Ave Glu mg/dL mg/dL Hemoglobin A1c (<=6.0) % Plasma Lactic Acid Ata 1.1 (0.7-2.0) mmol/L Calcium 9.1 (8.4-10.2) mg/dL Total Bilirubin 1.0 (0.2-1.3) mg/dL AST 27 (17-59) U/L ALT 51 H (4-49) U/L Alkaline Phosphatase 202 H (38-126) U/L Troponin I (0.000-0.034) ng/mL Total Protein 7.1 (6.3-8.2) g/dL Albumin 3.6 (3.5-5.0) g/dL TSH 1.170 (0.465-4.680) mIU/L Urine Color Urine Appearance (Clear) Urine pH (5.0-8.0) Ur Specific [place] (1.001-1.035) Urine Protein (Negative) Urine Glucose (UA) (Negative) Urine Ketones (Negative) Urine Blood (Negative) Urine Nitrite (Negative) Urine Bilirubin (Negative) Urine Urobilinogen (<2.0) mg/dL Ur Leukocyte Esterase (Negative) Urine RBC (0-5) /hpf Urine WBC (0-5) /hpf Urine WBC Clumps (None) /hpf Ur Squamous Epith Cells (0-4) /hpf Urine Bacteria (None) /hpf Urine Mucus (None) /hpf Influenza Type A RNA Not Detected (Not Detectd) Influenza Type B (PCR) Not Detected (Not Detectd) 10/02/23 10/02/23 Range/Units 17:08 17:08 WBC (3.8-10.6) k/uL RBC (4.30-5.90) m/uL Hgb (13.0-17.5) gm/dL Hct (39.0-53.0) % MCV (80.0-100.0) fL MCH (25.0-35.0) pg MCHC (31.0-37.0) g/dL RDW (11.5-15.5) % Plt Count (150-450) k/uL MPV Neutrophils % % Lymphocytes % % Monocytes % % Eosinophils % % Basophils % % Neutrophils # (1.3-7.7) k/uL Lymphocytes # (1.0-4.8) k/uL Monocytes # (0-1.0) k/uL Eosinophils # (0-0.7) k/uL Basophils # (0-0.2) k/uL Hypochromasia PT (10.0-12.5) sec INR (<1.2) APTT (22.0-30.0) sec Sodium (137-145) mmol/L Potassium (3.5-5.1) mmol/L Chloride (98-107) mmol/L Carbon Dioxide (22-30) mmol/L Anion Gap mmol/L BUN (9-20) mg/dL Creatinine (0.66-1.25) mg/dL Est GFR (CKD-EPI)AfAm (>60 ml/min/1.73 sqM) Est GFR (CKD-EPI)NonAf (>60 ml/min/1.73 sqM) Glucose (74-99) mg/dL Estimated Ave Glu mg/dL 186 mg/dL Hemoglobin A1c 8.1 H (<=6.0) % Plasma Lactic Acid Ata (0.7-2.0) mmol/L Calcium (8.4-10.2) mg/dL Total Bilirubin (0.2-1.3) mg/dL AST (17-59) U/L ALT (4-49) U/L Alkaline Phosphatase (38-126) U/L Troponin I 0.057 H* (0.000-0.034) ng/mL Total Protein (6.3-8.2) g/dL Albumin (3.5-5.0) g/dL TSH (0.465-4.680) mIU/L Urine Color Urine Appearance (Clear) Urine pH (5.0-8.0) Ur Specific [place] (1.001-1.035) Urine Protein (Negative) Urine Glucose (UA) (Negative) Urine Ketones (Negative) Urine Blood (Negative) Urine Nitrite (Negative) Urine Bilirubin (Negative) Urine Urobilinogen (<2.0) mg/dL Ur Leukocyte Esterase (Negative) Urine RBC (0-5) /hpf Urine WBC (0-5) /hpf Urine WBC Clumps (None) /hpf Ur Squamous Epith Cells (0-4) /hpf Urine Bacteria (None) /hpf Urine Mucus (None) /hpf Influenza Type A RNA (Not Detectd) Influenza Type B (PCR) (Not Detectd) Disposition Clinical Impression: Sepsis, Pneumonia, Urinary tract infection Disposition: ADMITTED IP TO THIS HOSP Condition: Stable
[2023-10-02 17:36] LABS: Basophils % (A) 0 %; Eosinophils # (A) 0.2 k/uL (0-0.7); Eosinophils % (A) 1 %; HCT 33.2 % (39.0-53.0); HGB 10.7 gm/dL (13.0-17.5); Hypochromasia Slight; Lymphocytes # (A) 1.1 k/uL (1.0-4.8); Lymphocytes % (A) 7 %; MCH 27.4 pg (25.0-35.0); MCHC 32.2 g/dL (31.0-37.0); MCV 85.2 fL (80.0-100.0); Mean Platelet Volume 8.2; Monocytes # (A) 0.8 k/uL (0-1.0); Monocytes % (A) 5 %; Neutrophils # (A) 13.1 k/uL (1.3-7.7); Neutrophils % (A) 86 %; Platelet Count 305 k/uL (150-450); RBC 3.89 m/uL (4.30-5.90); RDW 15.5 % (11.5-15.5); WBC 15.2 k/uL (3.8-10.6)
[2023-10-02 17:46] LABS: Partial Thromboplastin Time 26.6 sec (22.0-30.0); Prothrombin Time 11.3 sec (10.0-12.5)
[2023-10-02 17:48] LABS: ALT 51 U/L (4-49); AST 27 U/L (17-59); African American GFR (CKD) 84 (>60 ml/min/1.73 sqM); Albumin 3.6 g/dL (3.5-5.0); Alkaline Phosphatase 202 U/L (38-126); Anion Gap 9 mmol/L; Blood Urea Nitrogen 22 mg/dL (9-20); Calcium 9.1 mg/dL (8.4-10.2); Carbon Dioxide 25 mmol/L (22-30); Chloride 103 mmol/L (98-107); Glucose 143 mg/dL (74-99); Non-African American GFR(CKD) 73 (>60 ml/min/1.73 sqM); Potassium 4.5 mmol/L (3.5-5.1); Sodium 137 mmol/L (137-145); Total Protein 7.1 g/dL (6.3-8.2)
[2023-10-02] MEDS: SODIUM CHLORIDE 0.9% 500 ML 500 ML IV SCH (18:20)
[2023-10-02 18:28] LABS: Appearance,Urine Cloudy (Clear); Bacteria,Urine Rare /hpf; Bilirubin,Urine Negative (Negative); Blood,Urine Moderate (Negative); Color,Urine Colorless; Glucose,Urine (UA) Negative (Negative); Ketones,Urine Negative (Negative); Leukocyte Esterase,Urine Large (Negative); Mucus,Urine Rare /hpf; Nitrite,Urine Negative (Negative); Protein,Urine 2+ (Negative); RBC,Urine 38 /hpf (0-5); Specific Gravity,Urine 1.017 (1.001-1.035); Squamous Epithelial Cell,Urine <1 /hpf (0-4); Urobilinogen,Urine <2.0 mg/dL (<2.0); WBC,Urine 76 /hpf (0-5)
--- NOTE | 2023-10-02 19:10 | CT ---
EXAMINATION TYPE: CT ChestAbdPelvis w con CT DLP: 2145.7 mGycm, Automated exposure control for dose reduction was used. DATE OF EXAM: 10/02/2023 6:54 PM COMPARISON: None. CLINICAL INDICATION:Male, 73 years old with history of sepsis; PHH, Cough. Sepsis. Technique: CT ChestAbdPelvis w con; Multiple axial images were obtained. Two-dimensional coronal and sagittal reconstructions were obtained. Contrast used:100 mL of Isovue 300 with IV Contrast, Oral contrast used: without Oral Contrast Findings: CHEST: LUNGS/ PLEURA: Right pleural effusion with associated atelectasis. Patchy airspace opacities are seen in the e left upper and lower lobes. AIRWAY: Patent and unremarkable. HEART: Heart is enlarged for size. Mitral valve annular cusp patient's. Coronary artery calcification s. MEDIASTINUM: No gross evidence of adenopathy. VASCULATURE: No aortic aneurysm. MUSCULOSKELETAL: No acute osseous abnormalities. SOFT TISSUES/LYMPH NODES: Unremarkable. LOWER NECK: No significant findings. ABDOMEN: ABDOMEN LIVER: Unremarkable GALLBLADDER AND BILE DUCTS: Unremarkable. PANCREAS: Unremarkable. SPLEEN: Unremarkable. ADRENAL GLANDS: Unremarkable. KIDNEYS AND URETERS: No evidence of hydronephrosis or renal calculus. The ureters are unremarkable. PELVIS BLADDER: Davidson catheter in place. REPRODUCTIVE: Unremarkable. ABDOMEN & PELVIS STOMACH AND BOWEL: No evidence of bowel obstruction. PERITONEUM: No evidence of pneumoperitoneum or free fluid. VASCULATURE: No evidence of aortic aneurysm. MUSCULOSKELETAL: No acute osseous abnormalities LYMPH NODES: No gross evidence for lymphadenopathy. SOFT TISSUE/ABDOMINAL WALL: Fat-containing inguinal hernia on the left. IMPRESSION: 1. Patchy airspace opacities in the left lung correlate for pneumonia. 2. Moderate right pleural effusion with associated atelectasis. 3. Davidson catheter in appropriate position. 4. No acute abdominal process. .
[2023-10-02] MEDS: SODIUM CHLORIDE 0.9% 1,000 ML IV STA (19:40)
[2023-10-02] MEDS ORDERED: NALOXONE 0.4 MG/ML 1 ML VIAL IV PRN (20:45)
[2023-10-02] MEDS: AZITHROMYCIN 500 MG in SODIUM CHLORIDE 0.9% 250 ML IVPB STA (20:48)
[2023-10-02] MEDS ORDERED: GLYCOPYRROLATE 1 MG TAB PO PRN (20:49)
[2023-10-02] MEDS ORDERED: FAMOTIDINE 20 MG TAB PO SCH (21:00)
--- NOTE | 2023-10-02 21:46 | P.HPIM ---
History of Present Illness H&P Date: 10/02/23 Chief Complaint: Generalized weakness Patient is a 73-year-old male with PMH of IDDM, hypertension, chronic kidney disease stage II, chronic indwelling burnett catheter, systolic CHF with ejection fraction 40 to 45%, dementia, COPD with chronic hypoxemic respiratory failure ( on 2 L home oxygen continuously) and bilateral AKA presents to the ER with generalized weakness and altered mental status. Unable to get history from the patient secondary to AMS. History was provided by his daughter over the phone and the ED provider. Per daughter, patient was at his baseline and was doing fine last night. Daughter noticed that patient was desaturating in his 80s at 9 AM in the morning and was making gurgling sounds. Patient was confused and was short of breath. Patient was unable to eat or drink during the day. Daughter reached out to his PCP who advised her to take the patient to ER for urgent medical evaluation. Per daughter, patient was discharged on 05 September 2023 from [facility] where he was admitted for treatment of pneumonia. Patient has been doing generally well since he was discharged and was without the need for home oxygen until he started to desaturate today. Per daughter, patient denied chest pain, abdominal pain, fever, chills, nausea and vomiting. Patient has been taking his prescribed medications on time and as directed. He lives with his daughter at home who is his primary career services officer. CT chest, abdomen and pelvis in the ER shows patchy airspace opacities in the left lung correlate for pneumonia. Moderate right pleural effusion with associated atelectasis. Burnett catheter is in appropriate position. No acute abdominal process. Laboratory evaluation shows WBC 15.2, hemoglobin 10.7, hematocrit 33.2 PT 11.3, INR 1.0, APTT 26.6, sodium 137, potassium 4.5, chloride 103, bicarb 25, BUN 22, creatinine 1.03, EGFR 73, glucose 143, lactic acid 1.1, ALT 51, alkaline phos at 202, troponin one 0.057. Urinalysis show leukocyte Estrace positive with rare bacteria with negative Nitrites and 76 WBCs with 38 RBCs. Vitals: Tmax 100.4 F, heart rate 79, respiratory 18, blood pressure 160/73, oxygen 97% on 2 L by nasal cannula. Review of systems: Pertinent positives and negatives as discussed in HPI, a complete review of systems was performed and all other systems are negative. Social history: Tobacco: None Alcohol: None Recreational drugs: None Travel: None Occupation: None Family History: Noncontributory Physical examination: Vital signs reviewed General: patient looks somewhat uncomfortable, mild distress, appears older than stated age, normal weight Derm: No unusual rashes/lesions, warm Head: atraumatic, normocephalic, symmetric Eyes: EOMI, no lid lag, anicteric sclera, pupils equal round reactive to light ENT: Nose and ears atraumatic Neck: No cervical lymphadenopathy, trachea midline, supple Mouth: no lip lesion, mucus membranes moist Cardiovascular: S1S2 reg, no murmur, no edema Lungs: Decreased breath sounds bilaterally in lower lungs, no rhonchi, no rales, no accessory muscle use Abdominal: soft, nontender to palpation, no guarding Ext: Bilateral AKA Neuro: CN II-XI grossly intact, no gross focal neuro deficits Psych: patient answering basic questions and only oriented to self, not oriented to time or place, appropriate affect Assessment/Plan: 73-year-old male with PMH of IDDM, hypertension, acute kidney disease, CHF with ejection fraction 40 to 45%, dementia, and bilateral AKA presents to the ER with generalized weakness and altered mental status. #Community-acquired pneumonia CT chest, abdomen and pelvis in the ER shows patchy airspace opacities luz rning for pneumonia Continue on Ceftriaxone 1 mg IV q24 Continue on azithromycin 500mg IV q24h F/u blood cultures, legionella testing, and sputum cultures #Abnormal UA, suspect colonization in light of patient chronically indwelling burnett catheter #Normocytic anemia (above baseline) Hemoglobin 10.7, hematocrit 33.2 and MCV 85.2 Baseline hemoglobin 9.1 mg/dL in June 2023 #Insulin-dependent diabetes mellitus with hyperglycemia Glucose 143 Check HbA1c Started on sliding scale short acting insulin Resume his home medication: Levemir 15 U qhs (takes Lantus 15 U bid at home) #Elevated troponin, suspect due to demand ischemia, at baseline Troponin I trended down from 0.057 --> 0.041 Those are baseline compared to troponin level since May 2023 #Prerenal azotemia, likely secondary to dehydration BUN 22, creatinine 1.03, EGFR 73 Continue monitor CMP #Elevated alkaline phosphatase and ALT, likely due to on-going infection Alkaline phosphate 202, ALT 51, AST 27 Continue monitor CMP #Chronic conditions: BPH: C/w Flomax 0.04 mg p.o. daily, Aldactone 25 mg p.o. daily Anxiety: C/w Trazodone 50 mg p.o. nightly, Ativan 0.5 mg p.o. twice daily, Lexapro 20 mg p.o. daily Hypertension: C/w Amlodipine 10 mg p.o. daily Systolic CHF (EF 40-45%): Judicious use of IVFs DVT prophylaxis: Lovenox 40 mg subcu daily The patient is admitted with an anticipated greater than 2 midnight stay for evaluation of community-acquired pneumonia CODE STATUS: Full code Discussed with: Daughter Anticipated discharge place: Home 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 Date of last positivie culture/infection: 10/28/22 MDRO Source:: Blood Past Surgical History: Heart Catheterization Additional Past Surgical History / Comment(s): bilateral great toes amputated, 2nd toe lt foot partial amputation, multiple debridements of venous ulcers, colonoscopy, surgery as a child for undescended testicle., ABOVE THE KNEE AMPUTATION RIGHT LEG (JUNE 2017-[facility]) Past Anesthesia/Blood Transfusion Reactions: No Reported Reaction Date of Last Stent Placement:: 10/17/2022 Past Psychological History: Anxiety, Depression Smoking Status: Former smoker - Past Family History Father Family Medical History: Cancer Additional Family Medical History / Comment(s): Father from brain cancer Mother Family Medical History: Eye Disorder Additional Family Medical History / Comment(s): Glaucoma. Mother is . Medications and Allergies Home Medications Medication Instructions Recorded Confirmed Type traZODone HCL 50 mg PO HS 11/09/17 10/02/23 History Famotidine [Pepcid] 20 mg PO BID 09/29/22 10/02/23 History Tamsulosin [Flomax] 0.4 mg PO DAILY 09/29/22 10/02/23 History Escitalopram [Lexapro] 20 mg PO DAILY 05/25/23 10/02/23 History Insulin Glargine,Hum.rec.anlog 15 units SQ BID 05/25/23 10/02/23 History [Lantus Solostar Pen] LORazepam [Ativan] 0.5 mg PO BID PRN 06/25/23 10/02/23 History Sodium Bicarbonate Tab 650 mg PO BID #60 tab 07/03/23 10/02/23 Rx Spironolactone [Aldactone] 25 mg PO DAILY 30 Days #30 tab 07/03/23 10/02/23 Rx amLODIPine [Norvasc] 10 mg PO DAILY #30 tab 07/03/23 10/02/23 Rx Clopidogrel [Plavix] 75 mg PO DAILY 10/02/23 10/02/23 History Glycopyrrolate 1 mg PO TID PRN 10/02/23 10/02/23 History HYDROcodone/APAP 7.5-325MG [[place] 1 tab PO Q6HR PRN 10/02/23 10/02/23 History 7.5-325] Sennosides [Senokot] 8.6 mg PO DAILY 10/02/23 10/02/23 History Allergies Allergy/AdvReac Type Severity Reaction Status Date / Time No Known Allergies Allergy Verified 10/02/23 16:59 Physical Exam Vitals: Vital Signs Temp Pulse Resp BP Pulse Ox 10/02/23 18:16 79 18 160/73 95 10/02/23 16:40 100.4 F H 63 20 129/83 94 L Intake and Output 10/02/23 10/02/23 10/02/23 06:59 14:59 22:59 Other: Weight 79.379 kg Results CBC & Chem 7: 10/02/23 17:08 10/02/23 17:08 Labs: Abnormal Lab Results - Last 24 Hours (Table) 10/02/23 10/02/23 10/02/23 Range/Units 17:08 17:08 17:08 WBC 15.2 H (3.8-10.6) k/uL RBC 3.89 L (4.30-5.90) m/uL Hgb 10.7 L (13.0-17.5) gm/dL Hct 33.2 L (39.0-53.0) % Neutrophils # 13.1 H (1.3-7.7) k/uL BUN 22 H (9-20) mg/dL Glucose 143 H (74-99) mg/dL ALT 51 H (4-49) U/L Alkaline Phosphatase 202 H (38-126) U/L Troponin I (0.000-0.034) ng/mL Urine Protein 2+ H (Negative) Urine Blood Moderate H (Negative) Ur Leukocyte Esterase Large H (Negative) Urine RBC 38 H (0-5) /hpf Urine WBC 76 H (0-5) /hpf Urine WBC Clumps Rare H (None) /hpf Urine Bacteria Rare H (None) /hpf Urine Mucus Rare H (None) /hpf 10/02/23 Range/Units 17:08 WBC (3.8-10.6) k/uL RBC (4.30-5.90) m/uL Hgb (13.0-17.5) gm/dL Hct (39.0-53.0) % Neutrophils # (1.3-7.7) k/uL BUN (9-20) mg/dL Glucose (74-99) mg/dL ALT (4-49) U/L Alkaline Phosphatase (38-126) U/L Troponin I 0.057 H* (0.000-0.034) ng/mL Urine Protein (Negative) Urine Blood (Negative) Ur Leukocyte Esterase (Negative) Urine RBC (0-5) /hpf Urine WBC (0-5) /hpf Urine WBC Clumps (None) /hpf Urine Bacteria (None) /hpf Urine Mucus (None) /hpf
[2023-10-02] MEDS: INSULIN DETEMIR (LEVEMIR) 100 UNIT/ML SYR SQ SCH (23:38)
[2023-10-02] MEDS: SODIUM BICARBONATE TAB 650 MG TAB PO SCH (23:39)
[2023-10-02] MEDS: FAMOTIDINE 20 MG TAB PO SCH (23:39)
[2023-10-02] MEDS: traZODone HCL 50 MG TAB PO SCH (23:40)
[2023-10-03] MEDS: ENOXAPARIN 40 MG/0.4 ML SYRINGE SQ ONE (01:33)
[2023-10-03] MEDS: SODIUM CHLORIDE 0.9% 1,000 ML IV SCH (05:53)
[2023-10-03 06:37] LABS: Glucose,Whole Blood 92 mg/dL (70-110)
[2023-10-03] MEDS: INSULIN ASPART (NovoLOG) 100 UNIT/ML VIAL SQ SCH (06:52)
[2023-10-03] MEDS ORDERED: ZINC OXIDE PASTE (Z-GUARD) 1 APPLIC TOPICAL PRN (06:53)
[2023-10-03 07:18] LABS: Basophils % (A) 0 %; Eosinophils # (A) 0.1 k/uL (0-0.7); Eosinophils % (A) 1 %; Hypochromasia Moderate; Lymphocytes # (A) 1.2 k/uL (1.0-4.8); Lymphocytes % (A) 8 %; MCH 26.8 pg (25.0-35.0); MCHC 31.3 g/dL (31.0-37.0); MCV 85.5 fL (80.0-100.0); Mean Platelet Volume 9.4; Monocytes # (A) 0.9 k/uL (0-1.0); Monocytes % (A) 6 %; Neutrophils # (A) 12.4 k/uL (1.3-7.7); Neutrophils % (A) 84 %; Platelet Count 259 k/uL (150-450); RBC 3.39 m/uL (4.30-5.90); RDW 15.7 % (11.5-15.5); WBC 14.8 k/uL (3.8-10.6)
[2023-10-03 07:25] LABS: HGB 9.1 gm/dL (13.0-17.5)
[2023-10-03 07:26] LABS: African American GFR (CKD) 84 (>60 ml/min/1.73 sqM); Albumin 2.8 g/dL (3.5-5.0); Anion Gap 4 mmol/L; Blood Urea Nitrogen 18 mg/dL (9-20); Calcium 8.5 mg/dL (8.4-10.2); Carbon Dioxide 26 mmol/L (22-30); Chloride 109 mmol/L (98-107); Glucose 74 mg/dL (74-99); Non-African American GFR(CKD) 73 (>60 ml/min/1.73 sqM); Potassium 3.6 mmol/L (3.5-5.1); Sodium 139 mmol/L (137-145); Total Protein 5.9 g/dL (6.3-8.2)
[2023-10-03 07:27] LABS: ALT 35 U/L (4-49); AST 20 U/L (17-59); Alkaline Phosphatase 158 U/L (38-126); Total Bilirubin 0.5 mg/dL (0.2-1.3)
[2023-10-03] MEDS: TAMSULOSIN 0.4 MG CAP.ER.24H PO SCH (09:08)
[2023-10-03] MEDS: ESCITALOPRAM 20 MG TAB PO SCH (09:08)
[2023-10-03] MEDS: SPIRONOLACTONE 25 MG TAB PO SCH (09:08)
[2023-10-03] MEDS: amLODIPine 10 MG TAB PO SCH (09:09)
[2023-10-03] MEDS: CLOPIDOGREL 75 MG TAB PO SCH (09:09)
[2023-10-03] MEDS: SENNOSIDES 8.6 MG TAB PO SCH (09:09)
--- NOTE | 2023-10-03 11:18 | US ---
EXAMINATION TYPE: US chest DATE OF EXAM: 10/03/2023 COMPARISON: None CLINICAL INDICATION: Male, 73 years old with history of right pleural effusion. yash for possible tho ra; TECHNIQUE: Targeted ultrasound of the posterior lower right hemithorax EXAM MEASUREMENTS: Right Pleural Effusion pocket size: 11.4 cm Right skin surface to fluid distance: 3.5 cm Right side marked for possible thoracentesis outside the dept. Pulmonologists are able to review the images in the patient?s EMR. IMPRESSIONS: Right pleural effusion marked for thoracentesis.
[2023-10-03] MEDS: HYDROcodone/APAP 7.5-325MG 1 EACH TAB PO PRN (11:53)
[2023-10-03 11:59] LABS: Glucose,Whole Blood 108 mg/dL (70-110)
--- NOTE | 2023-10-03 12:02 | P.CNPUL ---
History of Present Illness Consult date: 10/03/23 Requesting physician: Jordon Luke Reason for consult: pneumonia, pleural effusion, abnormal CXR/CT Chief complaint: Pleural effusion, questionable pneumonia. History of present illness: Pulmonary consult dated October 11, 2023. 73-year-old male seen in the emergency department on October 01, for weakness. The patient apparently was not able to give them much in the way of history. Anyway, the best I can gather is that we are consulted for possible pleural effusion and pneumonia. The patient presented with weakness, and possibly some shortness of breath. The patient has a history of diabetes mellitus, GERD, hyperlipidemia, hypertension, osteoarthritis, and bilateral [id number] amputation. The patient is currently on saline at 75 cc an hour. The patient is getting oxygen by nasal cannula at 2 L. The patient is also a former smoker. Current labs include a white count 14.8, hemoglobin 9.1, hematocrit 29, platelet count 259,000. Coagulation studies were normal. Sodium 139, potassium 3.6, chlorides 109, CO2 26, BUN 18, creatinine 1.03. Calcium 8.5, albumin 2.8. Troponins were 0.057, 0.041, 0.042. TSH was normal. Urine had 2+ protein, was large positive for leukocyte esterase, had 38 red blood cells, 76 white blood cells, rare white blood cell clumps, and rare bacteria. The patient tested negative for influenza A and influenza B. The patient had a CT scan which shows some patchy airspace opacities in the left lung, moderate right-sided pleural effusion, but no additional acute process. The patient's right-sided pleural effusion measures 11.4 cm. Review of Systems REVIEW OF SYSTEMS: CONSTITUTIONAL: Weakness. NEUROLOGIC: [ Negative.] HEENT: [ Negative.] CARDIAC: [Negative.] PULMONARY: Shortness of breath. GI: [Negative.] : [Negative.] RHEUMATOLOGIC: [ Negative.] IMMUNOLOGIC: [ Negative.] ENDOCRINE: [Negative. ] DERMATOLOGIC: [Negative.] Past Medical History Past Medical History: Diabetes Mellitus, Eye Disorder, GERD/Reflux, Hyperlipidemia, Hypertension, Osteoarthritis (OA), Pneumonia, Renal Disease Additional Past Medical History / Comment(s): HX of Chronic venous stasis wounds, IDDM type II, cataracts , arthritis in hands, neuropathy, AKA B/L History of Any Multi-Drug Resistant Organisms: MRSA Date of last positivie culture/infection: 10/28/22 MDRO Source:: Blood Past Surgical History: Heart Catheterization Additional Past Surgical History / Comment(s): bilateral great toes amputated, 2nd toe lt foot partial amputation, multiple debridements of venous ulcers, colonoscopy, surgery as a child for undescended testicle., ABOVE THE KNEE AMPUTATION RIGHT LEG (JUNE 2017-[facility]) Past Anesthesia/Blood Transfusion Reactions: No Reported Reaction Date of Last Stent Placement:: 10/17/2022 Past Psychological History: Anxiety, Depression Additional Psychological History / Comment(s): . Smoking Status: Former smoker Past Alcohol Use History: None Reported Additional Past Alcohol Use History / Comment(s): no alcohol currently Past Drug Use History: None Reported - Past Family History Father Family Medical History: Cancer Additional Family Medical History / Comment(s): Father from brain cancer Mother Family Medical History: Eye Disorder Additional Family Medical History / Comment(s): Glaucoma. Mother is . Medications and Allergies Home Medications Medication Instructions Recorded Confirmed Type traZODone HCL 50 mg PO HS 11/09/17 10/02/23 History Famotidine [Pepcid] 20 mg PO BID 09/29/22 10/02/23 History Tamsulosin [Flomax] 0.4 mg PO DAILY 09/29/22 10/02/23 History Escitalopram [Lexapro] 20 mg PO DAILY 05/25/23 10/02/23 History Insulin Glargine,Hum.rec.anlog 15 units SQ BID 05/25/23 10/02/23 History [Lantus Solostar Pen] LORazepam [Ativan] 0.5 mg PO BID PRN 06/25/23 10/02/23 History Sodium Bicarbonate Tab 650 mg PO BID #60 tab 07/03/23 10/02/23 Rx Spironolactone [Aldactone] 25 mg PO DAILY 30 Days #30 tab 07/03/23 10/02/23 Rx amLODIPine [Norvasc] 10 mg PO DAILY #30 tab 07/03/23 10/02/23 Rx Clopidogrel [Plavix] 75 mg PO DAILY 10/02/23 10/02/23 History Glycopyrrolate 1 mg PO TID PRN 10/02/23 10/02/23 History HYDROcodone/APAP 7.5-325MG [[place] 1 tab PO Q6HR PRN 10/02/23 10/02/23 History 7.5-325] Sennosides [Senokot] 8.6 mg PO DAILY 10/02/23 10/02/23 History Allergies Allergy/AdvReac Type Severity Reaction Status Date / Time No Known Allergies Allergy Verified 10/02/23 16:59 Physical Exam Osteopathic Statement: *. No significant issues noted on an osteopathic structural exam other than those noted in the History and Physical/Consult. Vitals: Vital Signs Temp Pulse Pulse Resp BP BP Pulse Ox 10/03/23 08:19 96 10/03/23 08:00 99.4 F 76 19 174/66 97 10/03/23 03:32 98.3 F 58 L 20 169/56 96 10/03/23 00:00 99.3 F 72 20 139/66 98 10/02/23 23:34 87 20 146/55 97 10/02/23 18:16 79 18 160/73 95 10/02/23 16:40 100.4 F H 63 20 129/83 94 L Intake and Output 10/02/23 10/03/23 10/03/23 22:59 06:59 14:59 Intake Total 358 Output Total 150 500 Balance -150 -142 Intake: Oral 358 Output: Urine 150 500 Other: Voiding Method Indwelling Catheter Indwelling Catheter Weight 79.379 kg 92 kg 92 kg No acute distress, quiet, with saturations of 97% on 2 L. HEENT examination is grossly unremarkable. Neck supple. Full range of motion. No adenopathy thyromegaly or neck vein distention. Cardiovascular examination reveals regular rhythm rate. S1-S2 normal. No S3 or S4. No discernible murmur noted. Heart sounds are distant. Heart rate 76 bpm. Lungs reveal scattered rhonchi. Breath sounds are diminished at the right base. 2 L saturation is 96%. Left lung is essentially clear. Abdomen soft bowel sounds are heard. No masses or tenderness. Extremities reveal bilateral [id number] amputation. Skin is without rash or lesion. Neurologic examination is difficult to assess. Results - Laboratory Findings CBC and BMP: 10/03/23 07:01 10/03/23 07:01 PT/INR, D-dimer PT 11.3 sec (10.0-12.5) 10/02/23 17:08 INR 1.0 (<1.2) 10/02/23 17:08 Abnormal lab findings: Abnormal Labs 10/02/23 10/02/23 10/02/23 17:08 17:08 17:08 WBC 15.2 H RBC 3.89 L Hgb 10.7 L Hct 33.2 L RDW Neutrophils # 13.1 H Chloride BUN 22 H Glucose 143 H Hemoglobin A1c ALT 51 H Alkaline Phosphatase 202 H Troponin I Total Protein Albumin Urine Protein 2+ H Urine Blood Moderate H Ur Leukocyte Esterase Large H Urine RBC 38 H Urine WBC 76 H Urine WBC Clumps Rare H Urine Bacteria Rare H Urine Mucus Rare H 10/02/23 10/02/23 10/02/23 17:08 17:08 21:29 WBC RBC Hgb Hct RDW Neutrophils # Chloride BUN Glucose Hemoglobin A1c 8.1 H ALT Alkaline Phosphatase Troponin I 0.057 H* 0.041 H* Total Protein Albumin Urine Protein Urine Blood Ur Leukocyte Esterase Urine RBC Urine WBC Urine WBC Clumps Urine Bacteria Urine Mucus 10/03/23 10/03/23 10/03/23 00:11 07:01 07:01 WBC 14.8 H RBC 3.39 L Hgb 9.1 L D Hct 29.0 L RDW 15.7 H Neutrophils # 12.4 H Chloride 109 H BUN Glucose Hemoglobin A1c ALT Alkaline Phosphatase 158 H Troponin I 0.042 H* Total Protein 5.9 L Albumin 2.8 L Urine Protein Urine Blood Ur Leukocyte Esterase Urine RBC Urine WBC Urine WBC Clumps Urine Bacteria Urine Mucus - Diagnostic Findings Chest x-ray: image reviewed Assessment and Plan Assessment: Shortness of breath, secondary to right-sided pleural effusion, and possible pneumonia left lung. Bilateral [id number] amputation. History of diabetes mellitus. History of hypertension. History of hyperlipidemia. History of gastroesophageal reflux disease. History of osteoarthritis. Plan: Plan dated October 03, 2023. The patient is seen today in room 384. The patient himself was not able to give much history. An ultrasound was ordered. In addition, we ordered a procalcitonin level. Currently, the patient is on Rocephin and azithromycin. Additional recommendations and suggestions are forthcoming. Prognosis is certainly guarded. Will continue to follow make recommendations along the way. If the ultrasound shows a free-flowing effusion, that is large enough, we will attempt thoracentesis. Time with Patient: Greater than 30
--- NOTE | 2023-10-03 12:15 | P.PN ---
Subjective Progress Note Date: 10/03/23 Subjective: Patient seen at bedside. No significant overnight events. Pertinent positives and negatives discussed above, a complete review of systems was preformed and all the other sytems were negative. Vitals Signs Reveiwed. Physical examination: Vital signs reviewed General: patient looks somewhat uncomfortable, mild distress, appears older than stated age, normal weight Derm: No unusual rashes/lesions, warm Head: atraumatic, normocephalic, symmetric Eyes: EOMI, no lid lag, anicteric sclera, pupils equal round reactive to light ENT: Nose and ears atraumatic Neck: No cervical lymphadenopathy, trachea midline, supple Mouth: no lip lesion, mucus membranes moist Cardiovascular: S1S2 reg, no murmur, no edema Lungs: Decreased breath sounds bilaterally in lower lungs, no rhonchi, no rales, no accessory muscle use Abdominal: soft, nontender to palpation, no guarding Ext: Bilateral AKA Neuro: CN II-XI grossly intact, no gross focal neuro deficits Psych: patient answering basic questions and only oriented to self, not oriented to time or place, appropriate affect Assessment/Plan: 73-year-old male with PMH of IDDM, hypertension, acute kidney disease, CHF with ejection fraction 40 to 45%, dementia, and bilateral AKA presents to the ER with generalized weakness and altered mental status. Community-acquired versus aspiration pneumonia CT chest, abdomen and pelvis in the ER shows patchy airspace opacities concerning for pneumonia Continue on Ceftriaxone 1 mg IV q24 Continue on azithromycin 500mg IV q24h F/u blood cultures, legionella testing, and sputum cultures Discussed management with pulmonology, ordered chest ultrasound and proca lcitonin, and per pulmonology if there is enough fluid in the lung they will consider thoracentesis. Ordered speech therapy consult to investigate if pneumonia potentially came via aspiration Altered mental status: Likely secondary to pneumonia and UTI Discussed with patient's daughter on the phone who confirmed patient's baseline mentation. Patient has returned to baseline in regards to mentation. Abnormal UA, suspect colonization in light of patient chronically indwelling fo papo catheter Replace Davidson catheter Normocytic anemia (above baseline) Hemoglobin 10.7, hematocrit 33.2 and MCV 85.2 Baseline hemoglobin 9.1 mg/dL in June 2023 Insulin-dependent diabetes mellitus with hyperglycemia Glucose 74 and Hemoglobin A1c 8.1 Continue insulin sliding scale and we have resumed his home medication: Levemir 15 U qhs (takes Lantus 15 U bid at home) Elevated troponin, suspect due to demand ischemia, at baseline: Stabilized Troponin I trended down from 0.057 --> 0.041 --> 0.042 Those are baseline compared to troponin level since May 2023 Prerenal azotemia, likely secondary to dehydration: Resolved BUN 22, creatinine 1.03, EGFR 73 Continue NS 75 mL. Continue monitor CMP Elevated alkaline phosphatase and ALT, likely due to on-going infection Alkaline phosphatase and ALT now 158 and 35 respectively have down trended since admission Continue monitor CMP Atrial fibrillation, rate controlled -New diagnosis -Started on telemetry -Consider anticoagulation Chronic conditions: BPH: C/w Flomax 0.04 mg p.o. daily, Aldactone 25 mg p.o. daily Anxiety: C/w Trazodone 50 mg p.o. nightly, Ativan 0.5 mg p.o. twice daily, Lexapro 20 mg p.o. daily Hypertension: C/w Amlodipine 10 mg p.o. daily, amlodipine 10 mg p.o. daily, spironolactone 25 mg p.o. daily. Systolic CHF (EF 40-45%): Judicious use of IVFs DVT prophylaxis: Lovenox 40 mg subcu daily Anticipated discharge place: Home Disposition: Pending clinical course I have seen and evaluated the patient today. Discussed with the resident and agree with the residents finding and plan as documented in the resident's note. Changes highlighted in blue font. Objective - Vital Signs Vital signs: Vital Signs Temp 98.3 F 10/03/23 03:32 Pulse 58 L 10/03/23 03:32 Resp 20 10/03/23 03:32 BP 169/56 10/03/23 03:32 Pulse Ox 96 10/03/23 03:32 FiO2 Intake & Output 10/02/23 10/03/23 10/03/23 18:59 06:59 18:59 Output Total 150 Balance -150 Weight 79.379 kg 92 kg Output: Urine 150 Other: Voiding Method Indwelling Catheter - Labs CBC & Chem 7: 10/03/23 07:01 10/03/23 07:01 Labs: Abnormal Lab Results - Last 24 Hours (Table) 10/02/23 10/02/23 10/02/23 Range/Units 17:08 17:08 17:08 WBC 15.2 H (3.8-10.6) k/uL RBC 3.89 L (4.30-5.90) m/uL Hgb 10.7 L (13.0-17.5) gm/dL Hct 33.2 L (39.0-53.0) % Neutrophils # 13.1 H (1.3-7.7) k/uL BUN 22 H (9-20) mg/dL Glucose 143 H (74-99) mg/dL ALT 51 H (4-49) U/L Alkaline Phosphatase 202 H (38-126) U/L Troponin I (0.000-0.034) ng/mL Urine Protein 2+ H (Negative) Urine Blood Moderate H (Negative) Ur Leukocyte Esterase Large H (Negative) Urine RBC 38 H (0-5) /hpf Urine WBC 76 H (0-5) /hpf Urine WBC Clumps Rare H (None) /hpf Urine Bacteria Rare H (None) /hpf Urine Mucus Rare H (None) /hpf 10/02/23 10/02/23 10/03/23 Range/Units 17:08 21:29 00:11 WBC (3.8-10.6) k/uL RBC (4.30-5.90) m/uL Hgb (13.0-17.5) gm/dL Hct (39.0-53.0) % Neutrophils # (1.3-7.7) k/uL BUN (9-20) mg/dL Glucose (74-99) mg/dL ALT (4-49) U/L Alkaline Phosphatase (38-126) U/L Troponin I 0.057 H* 0.041 H* 0.042 H* (0.000-0.034) ng/mL Urine Protein (Negative) Urine Blood (Negative) Ur Leukocyte Esterase (Negative) Urine RBC (0-5) /hpf Urine WBC (0-5) /hpf Urine WBC Clumps (None) /hpf Urine Bacteria (None) /hpf Urine Mucus (None) /hpf
[2023-10-03 12:53] LABS: Magnesium 1.4 mg/dL (1.6-2.3)
[2023-10-03] MEDS: MAGNESIUM SULFATE-D5W PMX 1 GM in DEXTROSE/WATER 1 100ML.BAG IVPB SCH (13:47)
[2023-10-03 16:43] LABS: Glucose,Whole Blood 195 mg/dL (70-110)
[2023-10-03 20:17] LABS: Glucose,Whole Blood 226 mg/dL (70-110)
[2023-10-03] MEDS: INSULIN DETEMIR (LEVEMIR) 100 UNIT/ML SYR SQ SCH (20:50)
[2023-10-03] MEDS: AZITHROMYCIN 500 MG in SODIUM CHLORIDE 0.9% 250 ML IVPB SCH (22:24)
[2023-10-03] MEDS: LORazepam 0.5 MG TAB PO PRN (23:03)
[2023-10-04] MEDS: cloNIDine HCL 0.1 MG TAB PO STA (03:57)
[2023-10-04 05:31] LABS: Basophils % (A) 0 %; Eosinophils # (A) 0.1 k/uL (0-0.7); Eosinophils % (A) 1 %; HCT 27.5 % (39.0-53.0); HGB 8.9 gm/dL (13.0-17.5); Hypochromasia Moderate; Lymphocytes # (A) 0.6 k/uL (1.0-4.8); Lymphocytes % (A) 5 %; MCH 27.5 pg (25.0-35.0); MCHC 32.3 g/dL (31.0-37.0); MCV 85.2 fL (80.0-100.0); Mean Platelet Volume 8.6; Monocytes # (A) 0.6 k/uL (0-1.0); Monocytes % (A) 5 %; Neutrophils # (A) 10.8 k/uL (1.3-7.7); Neutrophils % (A) 88 %; Platelet Count 254 k/uL (150-450); RBC 3.22 m/uL (4.30-5.90); RDW 15.6 % (11.5-15.5); WBC 12.2 k/uL (3.8-10.6)
[2023-10-04 05:44] LABS: ALT 28 U/L (4-49); AST 23 U/L (17-59); African American GFR (CKD) >90 (>60 ml/min/1.73 sqM); Alkaline Phosphatase 168 U/L (38-126); Anion Gap 7 mmol/L; Blood Urea Nitrogen 17 mg/dL (9-20); Calcium 8.5 mg/dL (8.4-10.2); Carbon Dioxide 22 mmol/L (22-30); Chloride 108 mmol/L (98-107); Glucose 77 mg/dL (74-99); Non-African American GFR(CKD) 87 (>60 ml/min/1.73 sqM); Potassium 3.5 mmol/L (3.5-5.1); Sodium 137 mmol/L (137-145); Total Bilirubin 0.5 mg/dL (0.2-1.3)
[2023-10-04 06:11] LABS: Glucose,Whole Blood 78 mg/dL (70-110)
--- NOTE | 2023-10-04 08:12 | P.PN ---
Subjective Progress Note Date: 10/04/23 Principal diagnosis: Pleural effusion. Pulmonary consult dated October 03, 2023. 73-year-old male seen in the emergency department on October 01, for weakness. The patient apparently was not able to give them much in the way of history. Anyway, the best I can gather is that we are consulted for possible pleural effusion and pneumonia. The patient presented with weakness, and possibly some shortness of breath. The patient has a history of diabetes mellitus, GERD, hyperlipidemia, hypertension, osteoarthritis, and bilateral xnlxm-udn-nymh amputation. The patient is currently on saline at 75 cc an hour. The patient is getting oxygen by nasal cannula at 2 L. The patient is also a former smoker. Current labs include a white count 14.8, hemoglobin 9.1, hematocrit 29, plate let count 259,000. Coagulation studies were normal. Sodium 139, potassium 3.6, chlorides 109, CO2 26, BUN 18, creatinine 1.03. Calcium 8.5, albumin 2.8. Troponins were 0.057, 0.041, 0.042. TSH was normal. Urine had 2+ protein, was large positive for leukocyte esterase, had 38 red blood cells, 76 white blood cells, rare white blood cell clumps, and rare bacteria. The patient tested negative for influenza A and influenza B. The patient had a CT scan which shows some patchy airspace opacities in the left lung, moderate right-sided pleural effusion, but no additional acute process. The patient's right-sided pleural effusion measures 11.4 cm. Progress note dated October 04, 2023. 73-year-old male seen yesterday in consultation. Today, the patient is seen again in room 384. He is on 2 L of oxygen. Saline at 75 cc an hour. I was consulted for pleural effusion. Clinically, the patient looks relatively stable. CAT scan of the chest shows some patchy airspace opacities in the left lung, and a moderate right-sided pleural effusion. Laboratory data includes a white count 12.2, hemoglobin 8.9, hematocrit 27.5, and platelet count 254,000. Sodium 137, potassium 3.5, chlorides 108, CO2 22, BUN 17, and creatinine 0.87. Objective - Vital Signs Vital signs: Vital Signs Temp 98.2 F 10/04/23 03:10 Pulse 82 10/04/23 03:10 Resp 18 10/04/23 03:10 BP 136/49 10/04/23 05:21 Pulse Ox 95 10/04/23 03:10 FiO2 Intake & Output 10/03/23 10/04/23 10/04/23 18:59 06:59 18:59 Intake Total 594 Output Total 825 600 Balance -231 -600 Weight 92 kg 95 kg Intake: Oral 594 Output: Urine 825 600 Other: Voiding Method Indwelling Catheter Indwelling Catheter - Exam No acute distress, quiet, with saturations of 97% on 2 L. HEENT examination is grossly unremarkable. Neck supple. Full range of motion. No adenopathy thyromegaly or neck vein distention. Cardiovascular examination reveals regular rhythm rate. S1-S2 normal. No S3 or S4. No discernible murmur noted. Heart sounds are distant. Heart rate 2 bpm. Lungs reveal scattered rhonchi. Breath sounds are diminished at the right base. 2 L saturation is 5 %. Left lung is essentially clear. Abdomen soft bowel sounds are heard. No masses or tenderness. Extremities reveal bilateral wnpnv-css-luct amputation. Skin is without rash or lesion. Neurologic examination is difficult to assess. - Labs CBC & Chem 7: 10/04/23 04:50 10/04/23 04:50 Labs: Abnormal Lab Results - Last 24 Hours (Table) 10/02/23 10/03/23 10/03/23 Range/Units 17:08 07:01 16:40 WBC (3.8-10.6) k/uL RBC (4.30-5.90) m/uL Hgb (13.0-17.5) gm/dL Hct (39.0-53.0) % RDW (11.5-15.5) % Neutrophils # (1.3-7.7) k/uL Lymphocytes # (1.0-4.8) k/uL Chloride (98-107) mmol/L POC Glucose (mg/dL) 195 H (70-110) mg/dL Hemoglobin A1c 8.1 H (<=6.0) % Magnesium 1.4 L (1.6-2.3) mg/dL Alkaline Phosphatase (38-126) U/L Total Protein (6.3-8.2) g/dL Albumin (3.5-5.0) g/dL 10/03/23 10/04/23 10/04/23 Range/Units 20:16 04:50 04:50 WBC 12.2 H (3.8-10.6) k/uL RBC 3.22 L (4.30-5.90) m/uL Hgb 8.9 L (13.0-17.5) gm/dL Hct 27.5 L (39.0-53.0) % RDW 15.6 H (11.5-15.5) % Neutrophils # 10.8 H (1.3-7.7) k/uL Lymphocytes # 0.6 L (1.0-4.8) k/uL Chloride 108 H (98-107) mmol/L POC Glucose (mg/dL) 226 H (70-110) mg/dL Hemoglobin A1c (<=6.0) % Magnesium (1.6-2.3) mg/dL Alkaline Phosphatase 168 H (38-126) U/L Total Protein 6.0 L (6.3-8.2) g/dL Albumin 3.0 L (3.5-5.0) g/dL Microbiology - Last 24 Hours (Table) 10/02/23 19:30 Blood Culture - Preliminary Blood 10/02/23 19:10 Blood Culture - Preliminary Blood 10/02/23 17:08 Urine Culture - Preliminary Urine,Voided Assessment and Plan Assessment: Shortness of breath, secondary to right-sided pleural effusion, and possible pneumonia left lung. Bilateral xrpcj-cso-adid amputation. History of diabetes mellitus. History of hypertension. History of hyperlipidemia. History of gastroesophageal reflux disease. History of osteoarthritis. Plan: Plan dated October 03, 2023. The patient is seen today in room 384. The patient himself was not able to give much history. An ultrasound was ordered. In addition, we ordered a procalcitonin level. Currently, the patient is on Rocephin and azithromycin. Additional recommendations and suggestions are forthcoming. Prognosis is certainly guarded. Will continue to follow make recommendations along the way. If the ultrasound shows a free-flowing effusion, that is large enough, we will attempt thoracentesis. Plan dated October 04, 2023. The patient is not in any respiratory distress. I likely will plan on doing the thoracentesis, if I can properly position the patient, tomorrow, when I have help from my residents and nurse practitioner. Labs, x-rays, and medications are reviewed. No additional recommendations are made. Time with Patient: Less than 30
--- NOTE | 2023-10-04 11:32 | P.PN ---
Subjective Progress Note Date: 10/04/23 Subjective: Patient seen at bedside. No significant overnight events. Denies any respiratory complaints Pertinent positives and negatives discussed above, a complete review of systems was preformed and all the other sytems were negative. Vitals Signs Reveiwed. Physical examination: Vital signs reviewed General: No acute distress, appears older than stated age, normal weight Derm: No unusual rashes/lesions, warm Head: atraumatic, normocephalic, symmetric Eyes: EOMI, no lid lag, anicteric sclera, pupils equal round reactive to light ENT: Nose and ears atraumatic Neck: No cervical lymphadenopathy, trachea midline, supple Mouth: no lip lesion, mucus membranes moist Cardiovascular: S1S2 reg, no murmur, no edema Lungs: Decreased breath sounds bilaterally in lower lungs, no rhonchi, no rales, no accessory muscle use Abdominal: soft, nontender to palpation, no guarding Ext: Bilateral AKA Neuro: CN II-XI grossly intact, no gross focal neuro deficits Psych: patient answering basic questions and only oriented to self, not oriented to time or place, appropriate affect Assessment/Plan: 73-year-old male with PMH of IDDM, hypertension, acute kidney disease, CHF with ejection fraction 40 to 45%, dementia, and bilateral AKA presents to the ER with generalized weakness and altered mental status. Patient admitted for pneumonia, possibly aspiration. Also has a right-sided pleural effusion. Pulmonology also following. Community-acquired versus aspiration pneumonia Continue on Ceftriaxone 1 mg IV q24 Continue on azithromycin 500mg IV q24h Cultures no growth to date, Legionella negative Pulmonology note reviewed, likely thoracentesis tomorrow Speech therapy consulted -On 2 L nasal cannula, continue to wean oxygen Acute encephalopathy, likely secondary to infection History of dementia Reorientation if needed, delirium precautions Abnormal UA, suspect colonization in light of patient chronically indwelling burnett catheter Replace Burnett catheter Normocytic anemia, around baseline -No active bleeding -Continue to monitor Insulin-dependent diabetes mellitus with hyperglycemia Continue insulin sliding scale and we have resumed his home medication: Levemir 15 U qhs (takes Lantus 15 U bid at home) -Monitor for hypoglycemia Elevated troponin, ACS ruled out -No active chest pain -Continue on telemetry Atrial fibrillation, rate controlled -New diagnosis -Started on telemetry -Consider anticoagulation after thoracentesis Prerenal azotemia, resolved Transaminitis, resolved Chronic conditions: BPH: C/w Flomax 0.04 mg p.o. daily, Aldactone 25 mg p.o. daily Anxiety: C/w Trazodone 50 mg p.o. nightly, Ativan 0.5 mg p.o. twice daily, Lexapro 20 mg p.o. daily Hypertension: C/w Amlodipine 10 mg p.o. daily, spironolactone 25 mg p.o. daily. Systolic CHF (EF 40-45%): Consider low-dose beta-dominguez, JAMAR inhibitor/ARB DVT prophylaxis: Lovenox 40 mg subcu daily Anticipated discharge place: Home Disposition: Pending clinical course Objective - Vital Signs Vital signs: Vital Signs Temp 98.1 F 10/04/23 08:00 Pulse 55 L 10/04/23 08:00 Resp 18 10/04/23 08:00 BP 148/57 10/04/23 08:00 Pulse Ox 97 10/04/23 08:00 FiO2 Intake & Output 10/03/23 10/04/23 10/04/23 18:59 06:59 18:59 Intake Total 594 358 Output Total 825 600 500 Balance -231 -600 -142 Weight 92 kg 95 kg Intake: Oral 594 358 Output: Urine 825 600 500 Other: Voiding Method Indwelling Catheter Indwelling Catheter Indwelling Catheter - Labs CBC & Chem 7: 10/04/23 04:50 10/04/23 04:50 Labs: Abnormal Lab Results - Last 24 Hours (Table) 10/03/23 10/03/23 10/03/23 Range/Units 07:01 07:01 16:40 WBC (3.8-10.6) k/uL RBC (4.30-5.90) m/uL Hgb (13.0-17.5) gm/dL Hct (39.0-53.0) % RDW (11.5-15.5) % Neutrophils # (1.3-7.7) k/uL Lymphocytes # (1.0-4.8) k/uL Chloride (98-107) mmol/L POC Glucose (mg/dL) 195 H (70-110) mg/dL Magnesium 1.4 L (1.6-2.3) mg/dL Alkaline Phosphatase (38-126) U/L Total Protein (6.3-8.2) g/dL Albumin (3.5-5.0) g/dL Procalcitonin 0.14 H (0.02-0.09) ng/mL 10/03/23 10/04/23 10/04/23 Range/Units 20:16 04:50 04:50 WBC 12.2 H (3.8-10.6) k/uL RBC 3.22 L (4.30-5.90) m/uL Hgb 8.9 L (13.0-17.5) gm/dL Hct 27.5 L (39.0-53.0) % RDW 15.6 H (11.5-15.5) % Neutrophils # 10.8 H (1.3-7.7) k/uL Lymphocytes # 0.6 L (1.0-4.8) k/uL Chloride 108 H (98-107) mmol/L POC Glucose (mg/dL) 226 H (70-110) mg/dL Magnesium (1.6-2.3) mg/dL Alkaline Phosphatase 168 H (38-126) U/L Total Protein 6.0 L (6.3-8.2) g/dL Albumin 3.0 L (3.5-5.0) g/dL Procalcitonin (0.02-0.09) ng/mL Microbiology - Last 24 Hours (Table) 10/02/23 19:30 Blood Culture - Preliminary Blood 10/02/23 19:10 Blood Culture - Preliminary Blood 10/02/23 17:08 Urine Culture - Preliminary Urine,Voided
[2023-10-04 11:35] LABS: Glucose,Whole Blood 97 mg/dL (70-110)
[2023-10-04 16:52] LABS: Glucose,Whole Blood 206 mg/dL (70-110)
[2023-10-04 20:04] LABS: Glucose,Whole Blood 205 mg/dL (70-110)
[2023-10-05 05:59] LABS: Glucose,Whole Blood 84 mg/dL (70-110)
[2023-10-05 08:08] LABS: Basophils % (A) 0 %; Eosinophils # (A) 0.2 k/uL (0-0.7); Eosinophils % (A) 2 %; HCT 29.6 % (39.0-53.0); HGB 9.2 gm/dL (13.0-17.5); Hypochromasia Moderate; Lymphocytes # (A) 0.9 k/uL (1.0-4.8); Lymphocytes % (A) 9 %; MCH 26.5 pg (25.0-35.0); MCHC 31.1 g/dL (31.0-37.0); MCV 85.2 fL (80.0-100.0); Mean Platelet Volume 7.6; Monocytes # (A) 0.8 k/uL (0-1.0); Monocytes % (A) 8 %; Neutrophils # (A) 8.2 k/uL (1.3-7.7); Neutrophils % (A) 79 %; Platelet Count 309 k/uL (150-450); RBC 3.47 m/uL (4.30-5.90); RDW 15.5 % (11.5-15.5); WBC 10.4 k/uL (3.8-10.6)
[2023-10-05 08:35] LABS: African American GFR (CKD) >90 (>60 ml/min/1.73 sqM); Anion Gap 9 mmol/L; Blood Urea Nitrogen 15 mg/dL (9-20); Calcium 8.6 mg/dL (8.4-10.2); Carbon Dioxide 22 mmol/L (22-30); Chloride 109 mmol/L (98-107); Glucose 63 mg/dL (74-99); Non-African American GFR(CKD) 86 (>60 ml/min/1.73 sqM); Potassium 3.8 mmol/L (3.5-5.1); Sodium 140 mmol/L (137-145)
--- NOTE | 2023-10-05 10:27 | XR ---
EXAMINATION TYPE: XR chest 1V portable DATE OF EXAM: 10/05/2023 COMPARISON: 06/25/2023 HISTORY: Post right thoracentesis TECHNIQUE: Single frontal view of the chest is obtained. FINDINGS: There is a pneumothorax along the lateral lower right lung field measuring approximately 1 5-20%. Minimal residual pleural fluid. The heart is enlarged with an area of consolidation in the right retrocardiac density. No overt failu re. Underlying COPD and pulmonary fibrosis. Diffuse osteopenia and degenerative changes IMPRESSION: 1. There is a small right-sided pneumothorax postthoracentesis. Trapped lung in the differential diag nosis. 2. Retrocardiac consolidation may be on the basis of atelectasis or infiltrate. A [place] critical message alert has been initiated for Jordon Luke MD via the [employer] on 10/05/2023 10:24 AM. This message alert has been sent to Jordon Luke MD via the preferences provided by the clinician for the receipt of Radiology Critical Findings. Message ID [id number].
--- NOTE | 2023-10-05 10:36 | PCN ---
PROCEDURE NOTE PROCEDURE: Right-sided thoracentesis. PREOPERATIVE DIAGNOSIS: Right pleural effusion. POSTOPERATIVE DIAGNOSIS: Right pleural effusion. GAS COMPRESSOR TURBINE OPERATOR: Dr. Bo. SURGICAL ASSISTANTS: Dr. Guerrero, Dr. Dye, and Dr. Morris The patient's procedure took place in room 384. There was informed consent and universal timeout. The posterior chest was marked by ultrasound. Indication Pleural effusion. A time-out was completed verifying correct patient, procedure, site, positioning , and implant (s) or special equipment if applicable. Ultrasound guidance was/was not used and appropriate fluid pocket was identified and marked. Patient was positioned, prepped and draped in usual sterile fashion. Lidocaine was used to anesthetize the area. A Thoracentesis catheter was introduced into the pleural space and fluid was removed. Blood loss was none. A chest x-ray was ordered to evaluate for pneumothorax. We removed roughly 950 mL of dark bloody fluid from the right pleural space. The patient tolerated the procedure well. The fluid was previously sent for analysis, so this fluid will not be sent for analysis. A chest x-ray was ordered. There was no immediate complication. MMODL / IJN: [id number] / MTDD
[2023-10-05 11:12] LABS: Glucose,Whole Blood 132 mg/dL (70-110)
--- NOTE | 2023-10-05 11:41 | P.PN ---
Subjective Progress Note Date: 10/05/23 Pulmonary consult dated October 03, 2023. 73-year-old male seen in the emergency department on October 01, for weakness. The patient apparently was not able to give them much in the way of history. Anyway, the best I can gather is that we are consulted for possible pleural effusion and pneumonia. The patient presented with weakness, and possibly some shortness of breath. The patient has a history of diabetes mellitus, GERD, hyperlipidemia, hypertension, osteoarthritis, and bilateral [id number]-qgc-pvpt ampu tation. The patient is currently on saline at 75 cc an hour. The patient is getting oxygen by nasal cannula at 2 L. The patient is also a former smoker. Current labs include a white count 14.8, hemoglobin 9.1, hematocrit 29, platelet count 259,000. Coagulation studies were normal. Sodium 139, potassium 3.6, chlorides 109, CO2 26, BUN 18, creatinine 1.03. Calcium 8.5, albumin 2.8. Troponins were 0.057, 0.041, 0.042. TSH was normal. Urine had 2+ protein, was large positive for leukocyte esterase, had 38 red blood cells, 76 white blood cells, rare white blood cell clumps, and rare bacteria. The patient tested negative for influenza A and influenza B. The patient had a CT scan which shows some patchy airspace opacities in the left lung, moderate right-sided pleural effusion, but no additional acute process. The patient's right-sided pleural effusion measures 11.4 cm. Progress note dated October 04, 2023. 73-year-old male seen yesterday in consultation. Today, the patient is seen again in room 384. He is on 2 L of oxygen. Saline at 75 cc an hour. I was consulted for pleural effusion. Clinically, the patient looks relatively stable. CAT scan of the chest shows some patchy airspace opacities in the left lung, and a moderate right-sided pleural effusion. Laboratory data includes a white count 12.2, hemoglobin 8.9, hematocrit 27.5, and platelet count 254,000. Sodium 137, potassium 3.5, chlorides 108, CO2 22, BUN 17, and creatinine 0.87. The patient is seen today October 05, 2023 in follow-up on the selective care unit. He is currently awake and alert in no acute distress. Resting in bed. Maintaining O2 saturations in the 90s on room air. Urine culture positive for E. coli, Enterobacter cloacae. Blood cultures pending. White count 10.4. Hemoglobin 9.2. Platelets 309. Sodium 140. Potassium 3.8. Bicarb 22. BUN 15. Creatinine 0.90. Glucose 132. Ultrasound of the chest did reveal a an 11.4 cm pocket. He did undergo a right-sided thoracentesis today with Dr. Bo with 950 mL of fluid removed. Fluid analysis and cytology not repeated today. He is continued on ceftriaxone and azithromycin. Normal saline at 75 MLS per hour. Objective - Vital Signs Vital signs: Vital Signs Temp 97.5 F L 10/05/23 08:10 Pulse 82 10/05/23 08:10 Resp 16 10/05/23 08:10 BP 175/61 10/05/23 08:10 Pulse Ox 98 10/05/23 09:30 FiO2 Intake & Output 10/04/23 10/05/23 10/05/23 18:59 06:59 18:59 Intake Total 1134 240 Output Total 800 575 Balance 334 -575 240 Weight 96.5 kg Intake: Oral 1134 240 Output: Urine 800 575 Other: Voiding Method Indwelling Catheter Indwelling Catheter Indwelling Catheter - Exam GENERAL EXAM: Alert, 73-year-old male patient, on room air, comfortable in no apparent distress. HEAD: Normocephalic. EYES: Normal reaction of pupils, equal size. NOSE: Clear with pink turbinates. THROAT: No erythema or exudates. NECK: No masses, no JVD. CHEST: No chest wall deformity. LUNGS: Equal air entry with crackles, diminished in the right lung. CVS: S1 and S2 normal with no audible murmur, regular rhythm. ABDOMEN: No hepatosplenomegaly, normal bowel sounds, no guarding or rigidity. SPINE: No scoliosis or deformity SKIN: No rashes CENTRAL NERVOUS SYSTEM: No focal deficits, tone is normal in all 4 extremities. EXTREMITIES: Bilateral above the knee amputee no clubbing, no cyanosis. Peripheral pulses are intact. - Labs CBC & Chem 7: 10/05/23 06:55 10/05/23 06:55 Labs: Abnormal Lab Results - Last 24 Hours (Table) 10/04/23 10/04/23 10/05/23 Range/Units 16:50 20:03 06:55 RBC 3.47 L (4.30-5.90) m/uL Hgb 9.2 L (13.0-17.5) gm/dL Hct 29.6 L (39.0-53.0) % Neutrophils # 8.2 H (1.3-7.7) k/uL Lymphocytes # 0.9 L (1.0-4.8) k/uL Chloride (98-107) mmol/L Glucose (74-99) mg/dL POC Glucose (mg/dL) 206 H 205 H (70-110) mg/dL 10/05/23 10/05/23 Range/Units 06:55 11:11 RBC (4.30-5.90) m/uL Hgb (13.0-17.5) gm/dL Hct (39.0-53.0) % Neutrophils # (1.3-7.7) k/uL Lymphocytes # (1.0-4.8) k/uL Chloride 109 H (98-107) mmol/L Glucose 63 L (74-99) mg/dL POC Glucose (mg/dL) 132 H (70-110) mg/dL Microbiology - Last 24 Hours (Table) 10/02/23 19:30 Blood Culture - Preliminary Blood 10/02/23 19:10 Blood Culture - Preliminary Blood 10/02/23 17:08 Urine Culture - Final Urine,Voided Escherichia coli Enterobacter cloacae Assessment and Plan Assessment: Shortness of breath, secondary to right-sided pleural effusion, and possible pneumonia left lung. Status post right-sided thoracentesis today October 05, 2023 with 950 mL of fluid removed. Not sent for analysis or cytology Bilateral kzxzz-qtr-bano amputation History of diabetes mellitus History of hypertension History of hyperlipidemia History of gastroesophageal reflux disease History of osteoarthritis Plan: The patient was seen and evaluated Chest x-ray, labs and medications reviewed Right-sided thoracentesis performed today 950 mL of fluid removed Not sent for fluid analysis or cytology again Post procedure chest x-ray with small pneumothorax Possible trapped lung Follow-up chest x-ray in a.m. We will continue to follow I have personally seen and examined the patient, performed the documentation and the assessment and plan as written. Number of minutes spent on the visit: 10.
--- NOTE | 2023-10-05 14:08 | CDI ---
Documentation Clarification Form Date: 10/05/2023 From: Brittanie Malcolm Phone: [phone] Admit Date: 10/02/2023 08:51:00 PM Patient Name: Reid Frost Visit Number: [id number] Discharge Date: ATTENTION: The Clinical Documentation Specialists (CDI) and [facility] Coding Staff appreciate your assistance in clarifying documentation. Please respond to the clarification below the line at the bottom and electronically sign. The CDI & [facility] Coding staff will review the response and follow-up if needed. Please note: Queries are made part of the Legal Health Record. If you have any questions, please contact the author of this message via ITS. Doctor/Provider: Giuliano Guzman MD: Encephalopathy is documented in the IM progress note 09/14. Additional clarification regarding the type of encephalopathy is requested. History/Risk Factors: 73-year-old make with a history of dementia, DM2, HTN, CKD2 who presents with generalized weakness, possible pneumonia Clinical Indicators: 10/03 IM PN, Assessment/Plan: "Acute encephalopathy, likely secondary to infection. History of dementia. Abnormal UA, Suspect colonization in light of patient chronically indwelling burnett catheter." 10/01 Urine Culture: Escherichia coli, Enterobacter cloacae 10/01 CT Chest/abdomen/pelvis, Impression: "1. Patchy airspace opacities in the left lung correlate for pneumonia." Treatment: Normal Saline IV 1000cc bolus x3 on 10/01 then 75cc/hour start 10/02 Rocephin 1gram IV once 10/01 then [id number] start 10/02 Zithromax 500mg IV once 10/01 then daily for 3 doses start 10/02 Please clarify the type of encephalopathy, if known: [ x ] Metabolic Encephalopathy superimposed on dementia due to PNA [ ] Other, please specify [ ] Unable to determine MTDD
--- NOTE | 2023-10-05 14:30 | P.PN ---
Subjective Progress Note Date: 10/05/23 Patient seen at bedside. No significant overnight events. Denies any respiratory complaints. Pertinent positives and negatives discussed above, a complete review of systems was preformed and all the other sytems were negative. Vitals Signs Reveiwed. Physical examination: Vital signs reviewed General: No acute distress, appears older than stated age, normal weight Derm: No unusual rashes/lesions, warm Head: atraumatic, normocephalic, symmetric Eyes: EOMI, no lid lag, anicteric sclera, pupils equal round reactive to light ENT: Nose and ears atraumatic Neck: No cervical lymphadenopathy, trachea midline, supple Mouth: no lip lesion, mucus membranes moist Cardiovascular: S1S2 reg, no murmur, no edema Lungs: Decreased breath sounds bilaterally in lower lungs, no rhonchi, no rales, no accessory muscle use Abdominal: soft, nontender to palpation, no guarding Ext: Bilateral AKA Neuro: CN II-XI grossly intact, no gross focal neuro deficits Psych: patient answering basic questions and only oriented to self, not oriented to time or place, appropriate affect Labs today: Sodium 140, potassium 3.8, chloride 109, glucose 63, WBC 10.4, and hemoglobin 9.2. Imaging today: Independently interpreted Postthoracentesis CXR: Small right- sided pneumothorax. Assessment/Plan: 73-year-old male with PMH of IDDM, hypertension, acute kidney disease, CHF with ejection fraction 40 to 45%, dementia, and bilateral AKA presents to the ER with generalized weakness and altered mental status. Patient admitted for pneumonia, possibly aspiration. Also has a right-sided pleural effusion. Pulmonology also following. Community-acquired versus aspiration pneumonia: Pleural effusion on the right status post thoracentesis Pneumothorax Continue on Ceftriaxone 1 mg IV q24 (day 3) Continue on azithromycin 500mg IV q24h (day 3) Cultures no growth to date, Legionella negative As discussed with pulmonology patient received thoracentesis today draining roughly 950 mL of dark bloody fluid from the right pleural space. Small pneumothorax noted on postthoracentesis chest x-ray. Will repeat chest x-ray in a.m. Per speech therapy patient showed no overt signs or symptoms of aspiration with any trials presented. Recommended dysphagia II (ground) diet. Patient no longer requiring supplemental oxygen Acute encephalopathy, likely secondary to infection: History of dementia Reorientation if needed, delirium precautions Patient remains near baseline of A&O x 12 (alert to self and sometimes alert to location) Abnormal UA, suspect colonization in light of patient chronically indwelling burnett catheter Burnett replaced before admission in the ED Normocytic anemia, around baseline -No active bleeding -Continue to monitor Insulin-dependent diabetes mellitus with hyperglycemia Continue insulin sliding scale and we have resumed his home medication: Levemir 15 U qhs (takes Lantus 15 U bid at home) -Monitor for hypoglycemia Elevated troponin, ACS ruled out -No active chest pain -Continue on telemetry Atrial fibrillation, with SVR -New diagnosis -on telemetry -Consider anticoagulation, if no other procedures planned Prerenal azotemia, resolved Transaminitis, resolved Chronic conditions: BPH: C/w Flomax 0.04 mg p.o. daily, Aldactone 25 mg p.o. daily Anxiety: C/w Trazodone 50 mg p.o. nightly, Ativan 0.5 mg p.o. twice daily, Lexapro 20 mg p.o. daily Hypertension: C/w Amlodipine 10 mg p.o. daily, spironolactone 25 mg p.o. daily. Systolic CHF (EF 40-45%): Consider low-dose beta-dominguez, JAMAR inhibitor/ARB DVT prophylaxis: Lovenox 40 mg subcu daily Anticipated discharge place: Home Disposition: Pending clinical course I have seen and evaluated the patient today. Discussed with the resident and agree with resident's findings and plan as documented in the resident's note. Changes highlighted in blue font. Objective - Vital Signs Vital signs: Vital Signs Temp 98.4 F 10/05/23 03:25 Pulse 50 L 10/05/23 03:25 Resp 16 10/05/23 03:25 BP 168/68 10/05/23 03:25 Pulse Ox 98 10/05/23 03:25 FiO2 Intake & Output 10/04/23 10/04/23 10/05/23 06:59 18:59 06:59 Intake Total 1134 Output Total 600 800 575 Balance -600 334 -575 Weight 95 kg 96.5 kg Intake: Oral 1134 Output: Urine 600 800 575 Other: Voiding Method Indwelling Catheter Indwelling Catheter Indwelling Catheter - Labs CBC & Chem 7: 10/05/23 06:55 10/05/23 06:55 Labs: Abnormal Lab Results - Last 24 Hours (Table) 10/03/23 10/04/23 10/04/23 Range/Units 07:01 16:50 20:03 POC Glucose (mg/dL) 206 H 205 H (70-110) mg/dL Procalcitonin 0.14 H (0.02-0.09) ng/mL Microbiology - Last 24 Hours (Table) 10/02/23 19:30 Blood Culture - Preliminary Blood 10/02/23 19:10 Blood Culture - Preliminary Blood 10/02/23 17:08 Urine Culture - Final Urine,Voided Escherichia coli Enterobacter cloacae
[2023-10-05 16:23] LABS: Glucose,Whole Blood 200 mg/dL (70-110)
[2023-10-05 19:58] LABS: Glucose,Whole Blood 220 mg/dL (70-110)
[2023-10-06 05:42] LABS: Glucose,Whole Blood 78 mg/dL (70-110)
[2023-10-06 06:27] VITALS: RESP 19
[2023-10-06 07:47] LABS: Basophils % (A) 0 %; Eosinophils % (A) 0 %; HCT 24.7 % (39.0-53.0); HGB 7.8 gm/dL (13.0-17.5); Hypochromasia Moderate; Lymphocytes % (A) 10 %; MCH 26.8 pg (25.0-35.0); MCHC 31.7 g/dL (31.0-37.0); MCV 84.6 fL (80.0-100.0); Mean Platelet Volume 8.1; Monocytes # (A) 0.7 k/uL (0-1.0); Monocytes % (A) 7 %; Neutrophils # (A) 7.6 k/uL (1.3-7.7); Neutrophils % (A) 80 %; Platelet Count 304 k/uL (150-450); RBC 2.93 m/uL (4.30-5.90); RDW 15.6 % (11.5-15.5); WBC 9.6 k/uL (3.8-10.6)
[2023-10-06 08:07] LABS: ALT 20 U/L (4-49); AST 22 U/L (17-59); African American GFR (CKD) >90 (>60 ml/min/1.73 sqM); Alkaline Phosphatase 129 U/L (38-126); Anion Gap 8 mmol/L; Blood Urea Nitrogen 11 mg/dL (9-20); Calcium 8.5 mg/dL (8.4-10.2); Carbon Dioxide 21 mmol/L (22-30); Chloride 110 mmol/L (98-107); Glucose 75 mg/dL (74-99); Non-African American GFR(CKD) 88 (>60 ml/min/1.73 sqM); Potassium 3.8 mmol/L (3.5-5.1); Sodium 139 mmol/L (137-145); Total Bilirubin 0.5 mg/dL (0.2-1.3); Total Protein 6.2 g/dL (6.3-8.2)
[2023-10-06] MEDS: ACETAMINOPHEN TAB 325 MG TAB PO PRN (08:27)
--- NOTE | 2023-10-06 09:43 | XR ---
EXAMINATION TYPE: XR chest 1V portable DATE OF EXAM: 10/06/2023 COMPARISON: 10/05/2023 HISTORY: Shortness of breath TECHNIQUE: Single frontal view of the chest is obtained. FINDINGS: There is a pneumothorax along the lateral lower right lung field measuring approximately 1 5-20%. Small amount of residual pleural fluid. The heart is enlarged with an area of consolidation in the right retrocardiac density. No overt failure. Underlying COPD and pulmonary fibrosis. Diffuse os teopenia and degenerative changes IMPRESSION: 1. There is a small right-sided hydropneumothorax. Trapped lung in the differential diagnosis. 2. Retrocardiac consolidation may be on the basis of atelectasis or infiltrate.
--- NOTE | 2023-10-06 11:16 | P.PN ---
Subjective Progress Note Date: 10/06/23 Pulmonary consult dated October 03, 2023. 73-year-old male seen in the emergency department on October 01, for weakness. The patient apparently was not able to give them much in the way of history. Anyway, the best I can gather is that we are consulted for possible pleural effusion and pneumonia. The patient presented with weakness, and possibly some shortness of breath. The patient has a history of diabetes mellitus, GERD, hyperlipidemia, hypertension, osteoarthritis, and bilateral [id number] ampu tation. The patient is currently on saline at 75 cc an hour. The patient is getting oxygen by nasal cannula at 2 L. The patient is also a former smoker. Current labs include a white count 14.8, hemoglobin 9.1, hematocrit 29, platelet count 259,000. Coagulation studies were normal. Sodium 139, potassium 3.6, chlorides 109, CO2 26, BUN 18, creatinine 1.03. Calcium 8.5, albumin 2.8. Troponins were 0.057, 0.041, 0.042. TSH was normal. Urine had 2+ protein, was large positive for leukocyte esterase, had 38 red blood cells, 76 white blood cells, rare white blood cell clumps, and rare bacteria. The patient tested negative for influenza A and influenza B. The patient had a CT scan which shows some patchy airspace opacities in the left lung, moderate right-sided pleural effusion, but no additional acute process. The patient's right-sided pleural effusion measures 11.4 cm. Progress note dated October 04, 2023. 73-year-old male seen yesterday in consultation. Today, the patient is seen again in room 384. He is on 2 L of oxygen. Saline at 75 cc an hour. I was consulted for pleural effusion. Clinically, the patient looks relatively stable. CAT scan of the chest shows some patchy airspace opacities in the left lung, and a moderate right-sided pleural effusion. Laboratory data includes a white count 12.2, hemoglobin 8.9, hematocrit 27.5, and platelet count 254,000. Sodium 137, potassium 3.5, chlorides 108, CO2 22, BUN 17, and creatinine 0.87. The patient is seen today October 05, 2023 in follow-up on the selective care unit. He is currently awake and alert in no acute distress. Resting in bed. Maintaining O2 saturations in the 90s on room air. Urine culture positive for E. coli, Enterobacter cloacae. Blood cultures pending. White count 10.4. Hemoglobin 9.2. Platelets 309. Sodium 140. Potassium 3.8. Bicarb 22. BUN 15. Creatinine 0.90. Glucose 132. Ultrasound of the chest did reveal a an 11.4 cm pocket. He did undergo a right-sided thoracentesis today with Dr. Bo with 950 mL of fluid removed. Fluid analysis and cytology not repeated today. He is continued on ceftriaxone and azithromycin. Normal saline at 75 MLS per hour. The patient is seen today October 06, 2023 in follow-up on the selective care unit. He is currently resting comfortably in bed. Awake and alert in no acute distress. Maintaining good O2 saturations in the 90s on room air. He has normal saline at 75 MLS per hour. He is continued on ceftriaxone. His chest x- ray reveals a small right-sided hydropneumothorax. Measuring 15 to 20%. Trapped lung is in the differential. Retro-cardiac atelectasis. White count 9.6. Hemoglobin 7.8. Platelets 304. Sodium 139. Potassium 3.8. Bicarb 21. BUN 11. Creatinine 0.84. Urine culture was positive for E. coli and Enterobacter Cloacae. Objective - Vital Signs Vital signs: Vital Signs Temp 98.2 F 10/06/23 08:21 Pulse 84 10/06/23 08:22 Resp 19 10/06/23 08:22 BP 152/60 10/06/23 08:21 Pulse Ox 97 10/06/23 08:21 FiO2 Intake & Output 10/05/23 10/06/23 10/06/23 18:59 06:59 18:59 Intake Total 1320 780 Output Total 1200 300 650 Balance 120 480 -650 Weight 96 kg Intake: Intake, IV Titration 600 Amount Sodium Chloride 0.9% 1, 600 000 ml @ 75 mls/hr IV . [id number] [facility] Rx#:[id number] Oral 720 780 Output: Urine 1200 300 650 Other: Voiding Method Indwelling Catheter Indwelling Catheter Indwelling Catheter - Exam GENERAL EXAM: Alert, 73-year-old male patient, on room air, resting in bed, in no apparent distress. HEAD: Normocephalic. EYES: Normal reaction of pupils, equal size. NOSE: Clear with pink turbinates. THROAT: No erythema or exudates. NECK: No masses, no JVD. CHEST: No chest wall deformity. LUNGS: Equal air entry with crackles, diminished in the right lung. CVS: S1 and S2 normal with no audible murmur, regular rhythm. ABDOMEN: No hepatosplenomegaly, normal bowel sounds, no guarding or rigidity. SPINE: No scoliosis or deformity SKIN: No rashes CENTRAL NERVOUS SYSTEM: No focal deficits, tone is normal in all 4 extremities. EXTREMITIES: Bilateral above the knee amputee no clubbing, no cyanosis. Peripheral pulses are intact. - Labs CBC & Chem 7: 10/06/23 07:41 10/06/23 07:26 Labs: Abnormal Lab Results - Last 24 Hours (Table) 10/05/23 10/05/23 10/05/23 Range/Units 11:11 16:16 19:56 RBC (4.30-5.90) m/uL Hgb (13.0-17.5) gm/dL Hct (39.0-53.0) % RDW (11.5-15.5) % Chloride (98-107) mmol/L Carbon Dioxide (22-30) mmol/L POC Glucose (mg/dL) 132 H 200 H 220 H (70-110) mg/dL Alkaline Phosphatase (38-126) U/L Total Protein (6.3-8.2) g/dL Albumin (3.5-5.0) g/dL 10/06/23 10/06/23 Range/Units 07:26 07:41 RBC 2.93 L (4.30-5.90) m/uL Hgb 7.8 L (13.0-17.5) gm/dL Hct 24.7 L (39.0-53.0) % RDW 15.6 H (11.5-15.5) % Chloride 110 H (98-107) mmol/L Carbon Dioxide 21 L (22-30) mmol/L POC Glucose (mg/dL) (70-110) mg/dL Alkaline Phosphatase 129 H (38-126) U/L Total Protein 6.2 L (6.3-8.2) g/dL Albumin 3.0 L (3.5-5.0) g/dL Microbiology - Last 24 Hours (Table) 10/02/23 19:30 Blood Culture - Preliminary Blood 10/02/23 19:10 Blood Culture - Preliminary Blood 10/02/23 17:08 Urine Culture - Final Urine,Voided Escherichia coli Enterobacter cloacae Assessment and Plan Assessment: Shortness of breath, secondary to right-sided pleural effusion, and possible pneumonia left lung. Status post right-sided thoracentesis October 05, 2023 with 950 mL of fluid removed. Not sent for analysis or cytology Bilateral [id number]-[id number] amputation History of diabetes mellitus History of hypertension History of hyperlipidemia History of gastroesophageal reflux disease History of osteoarthritis Plan: The patient was seen and evaluated Chest x-ray, labs and medications reviewed Post procedure chest x-ray with small pneumothorax Possible trapped lung Stable and on room air Plan is for home with home care I have personally seen and examined the patient, performed the documentation and the assessment and plan as written. Number of minutes spent on the visit: 10.
[2023-10-06 11:27] VITALS: PULSE 82
[2023-10-06 11:30] LABS: Glucose,Whole Blood 79 mg/dL (70-110)
--- NOTE | 2023-10-06 15:10 | P.DS ---
Providers Date of admission: 10/02/23 20:51 Discharge Diagnosis: Community-acquired pneumonia Acute encephalopathy likely secondary to infection Normocytic anemia Insulin-dependent diabetes mellitus with hyperglycemia Elevated troponin Atrial fibrillation with SVR Prerenal azotemia BPH Anxiety Hypertension Systolic CHF (EF 40 to 45%) Hospital Course: Patient is a 73-year-old male with PMH of IDDM, hypertension, chronic kidney disease stage II, chronic indwelling burnett catheter, systolic CHF with ejection fraction 40 to 45%, dementia, COPD with chronic hypoxemic respiratory failure (on 2 L home oxygen continuously) and bilateral AKA presented to the ER with generalized weakness and altered mental status. Due to patient's altered status in the ED, he was unable to provide pertinent positives or negatives to his current condition at that time. In the ED patient's vitals were significant for temperature of 100.4, blood pressure 160/73, and oxygen 97% on 2 L nasal cannula usually on room air at home. Labs in the ED were significant for WBC 15.2, hemoglobin 10.7, hematocrit 33.2 PT 11.3, INR 1.0, APTT 26.6, sodium 137, potassium 4.5, chloride 103, bicarb 25, BUN 22, creatinine 1.03, EGFR 73, glucose 143, lactic acid 1.1, ALT 51, alkaline phos at 202, troponin one 0.057. Patient also received EKG in the ED significant for atrial fibrillation with slow ventricular response, ventricular rate 54, QTc 447 MS. In addition urinalysis showed leukocyte esterase positive with rare bacteria with negative Nitrites and 76 WBCs with 38 RBCs. Patient received imaging in the ED including CT chest, abdomen and pelvis which showed patchy airspace opacities in the left lung correlate for pneumonia, moderate right pleural effusion with associated atelectasis, burnett catheter is in appropriate position, no acute abdominal process. Patient was admitted for workup and treatment of generalized weakness and altered mental status likely secondary to infection. While admitted, patient received a chest ultrasound which identified an area of effusion which would be a good candidate for a thoracentesis procedure. Patient received th oracentesis with approximately 950 mL of dark bloody fluid from the right pleural space was removed. While in the hospital patient received ceftriaxone and azithromycin for treatment of his community-acquired pneumonia, and as treatment continued patient's mental status returned to baseline. Patient's baseline was confirmed with daughter while patient was in the hospital. Once patient had received thoracentesis and had regained his normal mentation from his baseline in addition to being hemodynamically stable including within normal limits lab work, he was deemed cleared medically for discharge. Patient is discharged to home with family care. Patient is recommended to follow-up with his PCP and his purchasing director. Patient and family are recommended to read patient instructions including information on pneumonia. Pt seen and with unknown etiology examined at bedside: Patient seen this morning sitting up in bed, with mentation at baseline of A & O x 12. Vital signs reveiwed and stable: General: patient looks somewhat uncomfortable, mild distress, appears older than stated age, normal weight Derm: No unusual rashes/lesions, warm Head: atraumatic, normocephalic, symmetric Eyes: EOMI, no lid lag, anicteric sclera, pupils equal round reactive to light ENT: Nose and ears atraumatic Neck: No cervical lymphadenopathy, trachea midline, supple Mouth: no lip lesion, mucus membranes moist Cardiovascular: S1S2 reg, no murmur, no edema Lungs: Decreased breath sounds bilaterally in lower lungs, no rhonchi, no rales, no accessory muscle use Abdominal: soft, nontender to palpation, no guarding Ext: Bilateral AKA Neuro: CN II-XI grossly intact, no gross focal neuro deficits Psych: patient answering basic questions and only oriented to self, not oriented to time or place, appropriate affect A total of [] minutes were spent preparing this complex discarge summary. Patient was discharged on []. Attending physician: Jordon Luke MD Consults: 10/03/23 09:28 Consult Physician Routine Consulting Provider: Theo Bo Consult Reason/Comments: pleural effusion Do you want consulting provider notified?: Yes Primary care physician: Kei Rene MD Hospital Course: I have seen and evaluated the patient today. Discussed with the resident and agree with the residents subjective and objective as documented in the resident's note. The assessment and plan was discussed and outlined as below. Breathing back to baseline. On room air. Unfortunately no cultures collected on thoracentesis. Cleared by Pulmonary. Complete 4 days of Augmentin (total 7 days). Borderline hemoglobin, defer start of anticoagulation to PCP, risks versus benefits. Follow up with PCP within 1-2 days and Pulmonary within 1 week of discharge. Discharge Diagnosis: Community-acquired versus aspiration pneumonia: Rocephin 1g IV QD (D3) and Azithromycin 500 mg IV QD (D3). ST no overt signs of aspiration. 4 more days of Augmentin. Pleural effusion on the right status post thoracentesis: No cultures sent from thoracentesis. Pneumothorax: CXR stable. Acute encephalopathy in the setting of dementia: AO 1-2 at baseline. Abnormal UA: Suspect colonization secondary to chronically indwelling burnett catheter. Burnett replaced before admission in the ED. Normocytic anemia: At baseline. No signs of active bleeding. Insulin-dependent diabetes mellitus with hyperglycemia Elevated troponin: Mildly elevated. No chest pain. ACS ruled out. Atrial fibrillation, with SVR: New diagnosis. Rate controlled. This complex discharge took 35 minutes to complete. Patient Condition at Discharge: Stable Plan - Discharge Summary Discharge Rx Participant: No New Discharge Prescriptions: New Amoxic-Pot Clav 875-125Mg [Augmentin 875-125] 1 tab PO Q12HR 4 Days #8 tab Continue traZODone HCL 50 mg PO HS Insulin Glargine,Hum.rec.anlog [Lantus Solostar Pen] 15 units SQ BID HYDROcodone/APAP 7.5-325MG [Milton 7.5-325] 1 tab PO Q6HR PRN PRN Reason: Pain Sennosides [Senokot] 8.6 mg PO DAILY Tamsulosin [Flomax] 0.4 mg PO DAILY Famotidine [Pepcid] 20 mg PO BID Escitalopram [Lexapro] 20 mg PO DAILY LORazepam [Ativan] 0.5 mg PO BID PRN PRN Reason: Anxiety Spironolactone [Aldactone] 25 mg PO DAILY 30 Days #30 tab amLODIPine [Norvasc] 10 mg PO DAILY #30 tab Sodium Bicarbonate Tab 650 mg PO BID #60 tab Glycopyrrolate 1 mg PO TID PRN PRN Reason: drooling Clopidogrel [Plavix] 75 mg PO DAILY Discharge Medication List traZODone HCL 50 mg PO HS 11/09/17 [History] Famotidine [Pepcid] 20 mg PO BID 09/29/22 [History] Tamsulosin [Flomax] 0.4 mg PO DAILY 09/29/22 [History] Escitalopram [Lexapro] 20 mg PO DAILY 05/25/23 [History] Insulin Glargine,Hum.rec.anlog [Lantus Solostar Pen] 15 units SQ BID 05/25/23 [History] LORazepam [Ativan] 0.5 mg PO BID PRN 06/25/23 [History] Sodium Bicarbonate Tab 650 mg PO BID #60 tab 07/03/23 [Rx] Spironolactone [Aldactone] 25 mg PO DAILY 30 Days #30 tab 07/03/23 [Rx] amLODIPine [Norvasc] 10 mg PO DAILY #30 tab 07/03/23 [Rx] Clopidogrel [Plavix] 75 mg PO DAILY 10/02/23 [History] Glycopyrrolate 1 mg PO TID PRN 10/02/23 [History] HYDROcodone/APAP 7.5-325MG [Milton 7.5-325] 1 tab PO Q6HR PRN 10/02/23 [History] Sennosides [Senokot] 8.6 mg PO DAILY 10/02/23 [History] Amoxic-Pot Clav 875-125Mg [Augmentin 875-125] 1 tab PO Q12HR 4 Days #8 tab 10/06/23 [Rx] Follow up Appointment(s)/Referral(s): Jesus Ryder MD [STAFF PHYSICIAN] - 10/19/23 8:30 am Kei Rene MD [Primary Care Provider] - 10/07/23 [facility] Visiting Nurse, [NON-STAFF] - Patient Instructions/Handouts: Pneumonia (DC) Activity/Diet/Wound Care/Special Instructions: Ambulance for in chart, call [facility] when ready for d/c. [phone] Discharge Disposition: HOME SELF-CARE
[2023-10-06 16:43] LABS: Glucose,Whole Blood 106 mg/dL (70-110)
[2023-10-06 17:25] VITALS: BP 138/70; TEMP 98.5
== END 2023-10-06 17:50 | disposition home or self-care (01) | DRG 193 ==
LOC: EC 16:37 → 3SCARD 20:51
PROVIDERS: ADMIT Internal Medicine; ATTEND Internal Medicine
PROC: 0W993ZZ Drainage of Right Pleural Cavity, Percutaneous Approach (ICD-10-PCS; principal; 2023-10-05)
DX: J18.9 Pneumonia, unspecified organism (principal); G93.41 Metabolic encephalopathy; I13.0 Hypertensive heart and chronic kidney disease with heart failure and stage 1 through stage 4 chronic kidney disease, or unspecified chronic kidney disease; J96.11 Chronic respiratory failure with hypoxia; J44.0 Chronic obstructive pulmonary disease with (acute) lower respiratory infection; I50.22 Chronic systolic (congestive) heart failure; F03.94 Unspecified dementia, unspecified severity, with anxiety; J94.8 Other specified pleural conditions; I24.89 Other forms of acute ischemic heart disease; J90 Pleural effusion, not elsewhere classified; J93.9 Pneumothorax, unspecified; J98.11 Atelectasis; Z89.612 Acquired absence of left leg above knee; Z89.611 Acquired absence of right leg above knee; E11.22 Type 2 diabetes mellitus with diabetic chronic kidney disease; E11.42 Type 2 diabetes mellitus with diabetic polyneuropathy; E11.65 Type 2 diabetes mellitus with hyperglycemia; I48.91 Unspecified atrial fibrillation; Z79.4 Long term (current) use of insulin; D63.1 Anemia in chronic kidney disease; Z99.81 Dependence on supplemental oxygen; Z79.02 Long term (current) use of antithrombotics/antiplatelets; Z96.0 Presence of urogenital implants; N18.2 Chronic kidney disease, stage 2 (mild); E86.0 Dehydration; B96.20 Unspecified Escherichia coli [E. coli] as the cause of diseases classified elsewhere; B95.2 Enterococcus as the cause of diseases classified elsewhere; N40.0 Benign prostatic hyperplasia without lower urinary tract symptoms; K21.9 Gastro-esophageal reflux disease without esophagitis; M19.041 Primary osteoarthritis, right hand; M19.042 Primary osteoarthritis, left hand; E78.5 Hyperlipidemia, unspecified; I87.8 Other specified disorders of veins; Z86.14 Personal history of Methicillin resistant Staphylococcus aureus infection; Z87.891 Personal history of nicotine dependence; Z79.899 Other long term (current) drug therapy
CPT/HCPCS: 36415; 71045; 71260; 74177; 76604; 80048; 80053; 81001; 83036; 83605; 83735; 84145; 84443; 84484; 85025; 85610; 85730; 87040; 87077; 87086; 87186; 87449; 87502; 93005; 94760; 96365; 96366; 96367; 99291

== ENCOUNTER → 2023-10-27 | Outpatient (CLI) | payer MEDICARE | END | disposition home or self-care (01) | LOC: LABPRL 17:30 | PROVIDERS: ATTEND General Practice | CPT/HCPCS: 87077; 87086; 87186 ==

== ENCOUNTER 2023-11-10 09:01 | Inpatient (IN) | payer MEDICARE ==
[2023-11-10] MEDS ORDERED: VANCOMYCIN IV PER PHARMACY 1 EACH MISC MISCELLANE PRN (09:22)
[2023-11-10] MEDS: SODIUM CHLORIDE 0.9% 1,000 ML IV ONE (09:42)
[2023-11-10] MEDS: SODIUM CHLORIDE 0.9% 1,000 ML IV STA (09:42)
[2023-11-10] MEDS: ACETAMINOPHEN SUPPOSITORY 650 MG SUPP RECTAL STA (09:43)
[2023-11-10 10:02] LABS: Basophils % (A) 0 %; Eosinophils % (A) 0 %; HCT 37.3 % (39.0-53.0); Hypochromasia Marked; Lymphocytes # (A) 0.8 k/uL (1.0-4.8); Lymphocytes % (A) 4 %; MCHC 31.4 g/dL (31.0-37.0); MCV 82.9 fL (80.0-100.0); Monocytes # (A) 0.7 k/uL (0-1.0); Monocytes % (A) 4 %; Neutrophils # (A) 16.2 k/uL (1.3-7.7); Neutrophils % (A) 91 %; Platelet Count 471 k/uL (150-450); RBC 4.49 m/uL (4.30-5.90); RDW 15.9 % (11.5-15.5); WBC 17.8 k/uL (3.8-10.6)
[2023-11-10 10:04] LABS: Glucose,Whole Blood 312 mg/dL (70-110)
--- NOTE | 2023-11-10 10:08 | XR ---
EXAMINATION TYPE: XR chest 1V portable DATE OF EXAM: 11/10/2023 9:58 AM CLINICAL INDICATION: Male, 73 years old with history of altered mental status; [facility] COMPARISON: Chest radiographs from 10/06/2023 TECHNIQUE: XR chest 1V portable Frontal view of the chest. FINDINGS: Lungs/Pleura: Reading of the right costophrenic angle. There is no evidence of pleural effusion, foca l consolidation, or pneumothorax. Pulmonary vascularity: Unremarkable. Heart/mediastinum: Cardiomediastinal silhouette is unremarkable. Musculoskeletal: No acute osseous pathology. Other findings: None IMPRESSION: Small right pleural effusion and/or elevated diaphragm with large bowel coursing over the liver under the diaphragm.
[2023-11-10] MEDS: VANCOMYCIN 1,000 MG in SODIUM CHLORIDE 0.9% 250 ML IVPB STA (10:09)
[2023-11-10 10:11] LABS: ALT 19 U/L (4-49); AST 32 U/L (17-59); African American GFR (CKD) 44 (>60 ml/min/1.73 sqM); Albumin 3.3 g/dL (3.5-5.0); Alcohol <10 mg/dL; Alkaline Phosphatase 92 U/L (38-126); Anion Gap 13 mmol/L; Blood Urea Nitrogen 48 mg/dL (9-20); Calcium 8.8 mg/dL (8.4-10.2); Carbon Dioxide 23 mmol/L (22-30); Chloride 110 mmol/L (98-107); Glucose 326 mg/dL (74-99); Non-African American GFR(CKD) 38 (>60 ml/min/1.73 sqM); Potassium 3.3 mmol/L (3.5-5.1); Sodium 146 mmol/L (137-145); Total Bilirubin 0.7 mg/dL (0.2-1.3)
[2023-11-10] MEDS: CEFEPIME 2 GM in SODIUM CHLORIDE 0.9% 100 ML IVPB SCH ×2 (10:11→19:57)
[2023-11-10 10:12] LABS: Lactic Acid, Venous 2.5 mmol/L (0.7-2.0)
[2023-11-10 10:13] LABS: Appearance,Urine Turbid (Clear); Bacteria,Urine Few /hpf; Bilirubin,Urine Negative (Negative); Blood,Urine Moderate (Negative); Budding Yeast,Urine Many /hpf; Color,Urine Yellow; Glucose,Urine (UA) Negative (Negative); Hyphae Yeast, Urine Few /hpf; Ketones,Urine 1+ (Negative); Leukocyte Esterase,Urine Large (Negative); Mucus,Urine Few /hpf; Nitrite,Urine Positive (Negative); Protein,Urine 3+ (Negative); RBC,Urine >182 /hpf (0-5); Specific Gravity,Urine 1.026 (1.001-1.035); Squamous Epithelial Cell,Urine 2 /hpf (0-4); Urobilinogen,Urine <2.0 mg/dL (<2.0); WBC,Urine 111 /hpf (0-5)
[2023-11-10 10:15] LABS: Amphetamine Screen,Urine Not Detected (NotDetected); Barbiturate Screen,Urine Not Detected (NotDetected); Benzodiazepines Screen,Urine Detected (NotDetected); Cocaine Screen,Urine Not Detected (NotDetected); Methadone Screen, Urine Not Detected (NotDetected); Opiate Screen,Urine Detected (NotDetected); Oxycodone Screen, Urine Not Detected (NotDetected); Phencyclidine Screen,Urine Not Detected (NotDetected); Tricyclic Antidepressant,Urine Not Detected (NotDetected); Urn Cannabinoid Scrn Not Detected (NotDetected)
[2023-11-10 10:22] LABS: INR 1.2 (<1.2); Partial Thromboplastin Time 23.8 sec (22.0-30.0); Prothrombin Time 13.1 sec (10.0-12.5)
[2023-11-10 10:25] LABS: HGB 11.7 gm/dL (13.0-17.5)
--- NOTE | 2023-11-10 11:03 | CT ---
EXAMINATION TYPE: CT brain wo con DATE OF EXAM: 11/10/2023 COMPARISON: 06/25/2023 HISTORY: Altered mental status CT DLP: 1243.1 mGycm Automated exposure control for dose reduction was used. FINDINGS: Moderate to severe ventricular dilation of the greater central component. Normal pressure hydrocephal us or hydrocephalus in the differential diagnosis. Calcification in the sylvian fissure on the left is stable from prior exam. Atherosclerotic change of the vasculature. Hypoattenuation within the white matter is nonspecific but most typical remote microvascular ischemia . Calvarium intact. Nasal septal deviation. Orbits symmetric. IMPRESSION: 1 degenerative and nonspecific white matter findings most typical remote chronic vascular ischemia.
--- NOTE | 2023-11-10 11:16 | CT ---
EXAMINATION TYPE: CT ChestAbdPelvis wo con DATE OF EXAM: 11/10/2023 COMPARISON: 10/02/2023. HISTORY: Constipation CT DLP: 1371.8 mGycm. Automated Exposure Control for Dose Reduction was Utilized. TECHNIQUE: CT scan of the thorax, abdomen and pelvis is performed without IV contrast. FINDINGS: Large right hydropneumothorax. Consolidation in the right lung. Intermediate density within the pleur al fluid may represent hemorrhagic component. Patchy infiltrate in the posterior segment left lower lobe of the lung. No definite acute displaced rib fracture.. Air within the soft tissues of the left neck likely iatrog enic. Extensive retained fecal debris with findings suggestive of fecal impaction the rectum. Assessment fo r organ injury limited by lack of contrast. Cannot exclude gallstones. Atrophy of the pancreas. Nodul arity and thickening of the adrenal gland likely the basis of benign hyperplasia or adenoma. No aorti c aneurysm. Moderate atherosclerotic changes. Left kidney atrophic. No nephrolithiasis or hydronephro sis. Nonspecific bilateral perinephric edema can be associated with the chronic infection or chronic medical renal disease. Multilevel hypertrophic and degenerative changes spine. Hypertrophic facet joint arthropathy Bilatera l hip arthropathy. Davidson catheter noted with apparent bladder wall thickening correlate for mild cyst itis. Bilateral glenohumeral joint arthropathy. There is coronary artery calcification. Cardiomegaly is seen. Assessment for adenopathy limited by no ncontrast technique. Critical test results discussed with Dr. Saldana 11:10 AM 11/10/2023. IMPRESSION: 1. Large right hydropneumothorax. Adjacent right lower lobe consolidation could be related to compre ssive atelectasis. Underlying neoplasm or infectious etiology not excluded. 2. Assessment for organ injury limited by lack of contrast. No free fluid or free air. 3. Fecal impaction the rectum. 4. Patchy somewhat nodular groundglass changes left lower lobe favor inflammatory or infectious pneum onitis.
[2023-11-10] MEDS ORDERED: NALOXONE 0.4 MG/ML 1 ML VIAL IV PRN (11:49)
[2023-11-10] MEDS ORDERED: ONDANSETRON 4 MG/2 ML VIAL IVP PRN (11:49)
--- NOTE | 2023-11-10 12:00 | ED ---
General Adult HPI - General Chief complaint: Altered Mental Status Stated complaint: Sepsis Time Seen by Provider: 11/10/23 09:15 Source: patient, EMS, RN notes reviewed, old records reviewed Mode of arrival: EMS Limitations: no limitations - History of Present Illness Initial comments: Patient is a 73-year-old male who presents emergency department for altered mentation. Has been receiving treatment for pneumonia outpatient but seems to be getting more more confused and worse. Patient has a history of diabetes, hypertension, hyperlipidemia, chronic indwelling Davidson catheter, chronic bilateral lower extremity amputations. Normally has a note x 2-3 with a history of dementia. Currently ANO x 0-1 at best. Unable provide any history. History obtained via daughter. States patient is still full code. Concern is for UTI at this time.Patient's daughter states patient has not had a bowel movement in a few days either. Confusion started on Thursday or Thursday. Symptoms overall started Thursday or Thursday. Is currently Thursday. - Related Data Home Medications Medication Instructions Recorded Confirmed traZODone HCL 50 mg PO HS 11/09/17 11/10/23 Famotidine [Pepcid] 20 mg PO BID 09/29/22 11/10/23 Tamsulosin [Flomax] 0.4 mg PO DAILY 09/29/22 11/10/23 Insulin Glargine,Hum.rec.anlog 20 units SQ BID 05/25/23 11/10/23 [Lantus Solostar Pen] LORazepam [Ativan] 0.5 mg PO BID PRN 06/25/23 11/10/23 Clopidogrel [Plavix] 75 mg PO DAILY 10/02/23 11/10/23 Glycopyrrolate 1 mg PO TID PRN 10/02/23 11/10/23 HYDROcodone/APAP 7.5-325MG [[place] 1 tab PO Q6HR PRN 10/02/23 11/10/23 7.5-325] Sennosides [Senokot] 8.6 mg PO DAILY 10/02/23 11/10/23 Acetaminophen Tab [Tylenol Tab] 500 mg PO Q6H PRN 11/10/23 11/10/23 Atorvastatin Calcium [Lipitor] 80 mg PO HS 11/10/23 11/10/23 Gabapentin [Neurontin] 300 mg PO BID 11/10/23 11/10/23 Insulin Lispro [humaLOG Kwikpen] 2 - 20 unit SQ ACHS 11/10/23 11/10/23 Magnesium Citrate [Citrate of 296 ml PO RING 11/10/23 11/10/23 Magnesia] Nystatin 100,000 Unit/gm Powd 1 applic TOPICAL BID 11/10/23 11/10/23 [Mycostatin Powder] Previous Rx's Medication Instructions Recorded Sodium Bicarbonate Tab 650 mg PO BID #60 tab 07/03/23 Spironolactone [Aldactone] 25 mg PO DAILY 30 Days #30 tab 07/03/23 amLODIPine [Norvasc] 10 mg PO DAILY #30 tab 07/03/23 Allergies Allergy/AdvReac Type Severity Reaction Status Date / Time No Known Allergies Allergy Verified 11/10/23 11:35 Review of Systems ROS Statement: Those systems with pertinent positive or pertinent negative responses have been documented in the HPI. ROS Other: All systems not noted in ROS Statement are negative. 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 Date of last positivie culture/infection: 10/28/22 MDRO Source:: Blood Past Surgical History: Heart Catheterization Additional Past Surgical History / Comment(s): bilateral great toes amputated, 2nd toe lt foot partial amputation, multiple debridements of venous ulcers, colonoscopy, surgery as a child for undescended testicle., ABOVE THE KNEE AMPUTATION RIGHT LEG (JUNE 2017-[facility]) Past Anesthesia/Blood Transfusion Reactions: No Reported Reaction Date of Last Stent Placement:: 10/17/2022 Past Psychological History: Anxiety, Depression Smoking Status: Former smoker Past Alcohol Use History: Unable to Obtain Past Drug Use History: Unable to Obtain - Past Family History Father Family Medical History: Cancer Additional Family Medical History / Comment(s): Father from brain cancer Mother Family Medical History: Eye Disorder Additional Family Medical History / Comment(s): Glaucoma. Mother is . General Exam - General Exam Comments Initial Comments: General: Patient is alert but not oriented. Febrile. Altered. HEAD: Normal with no signs of head trauma. EYES: PERRLA, EOMI, conjunctiva normal, no discharge. Pupils 3 mm and equal bilaterally. ENT: Hearing grossly intact, normal oropharynx. Significantly dry mucous membranes. RESPIRATORY: Clear breath sounds bilaterally. No wheezes, rales, or rhonchi. No hypoxia. No respiratory distress. C/V: Mild tachycardia with regular rhythm. S1 and S2 auscultated, no edema, peripheral pulses 2+ and intact throughout ABD: Abd is soft, nontender, nondistended EXT: Normal range of motion, no obvious deformity SKIN: No rashes or lesions observed on exposed skin. NEURO: Alert but not oriented. GCS is approximately 11 at this time. No obvious focal deficits. Limitations: no limitations Course Vital Signs 11/10/23 11/10/23 11/10/23 09:03 11:24 11:59 Temperature 101 F H 101.6 F H Pulse Rate 101 H 89 90 Respiratory 18 18 16 Rate Blood Pressure 130/109 132/70 155/91 O2 Sat by Pulse 97 97 95 Oximetry 11/10/23 11/10/23 13:17 13:49 Temperature 100.0 F H Pulse Rate 76 67 Respiratory 18 18 Rate Blood Pressure 151/63 164/77 O2 Sat by Pulse 99 99 Oximetry Medical Decision Making - Medical Decision Making Was pt. sent in by a medical professional or institution (KIM Raygoza, DIV[employer] SUPERVISOR, urgent care, hospital, or usp...) When possible be specific @ -No Did you speak to anyone other than the patient for history (EMS, parent, family, police, friend...)? What history was obtained from this source @ -Spoke with patient's daughter who updates me that patient is still full code, as well as recent past medical history including history of thoracentesis, recent treatment for pneumonia, as well as altered mentation for multiple days. Did you review nursing and triage notes (agree or disagree)? Why? @ -I reviewed and agree with nursing and triage notes Were old charts reviewed (outside hosp., previous admission, EMS record, old EKG, old radiological studies, urgent care reports/EKG's, usp records)? Report findings @ -Old charts reviewed including CT imaging from September for comparison studies which shows that current hydropneumothorax present in the right thorax occupies a very similar footprint as the previous pleural effusion from September 2023. Differential Diagnosis (chest pain, altered mental status, abdominal pain women, abdominal pain men, vaginal bleeding, weakness, fever, dyspnea, syncope, h eadache, dizziness, GI bleed, back pain, seizure, CVA, palpatations, mental health, musculoskeletal)? @ -Differential Altered Mental Status: Hypoglycemia, DKA, hypercapnia, ETOH, overdose, CO poisoning, trauma, myxedema coma, HTN encephalopathy, infection, encephalitis, psychosis, intercranial hem orrhage, hepatic encephalopathy, meningitis, CVA, this is not meant to be an all-inclusive list EKG interpreted by me (3pts min.). @ -As above X-rays interpreted by me (1pt min.). @ -Chest x-ray reveals no obvious acute cardiopulmonary process. Small right pleural effusion present which has been noted on prior exams. CT interpreted by me (1pt min.). @ -CT brain reveals no obvious acute cardiopulmonary process. CT chest abdomen pelvis reveals constipation as well as a right hydropneumothorax. I was made aware of this by Dr. Brumfield of radiology. U/S interpreted by me (1pt. min.). @ -None done What testing was considered but not performed or refused? (CT, X-rays, U/S, labs)? Why? @ -None What meds were considered but not given or refused? Why? @ -None Did you discuss the management of the patient with other professionals (professionals i.e. , PA, DIV[employer] SUPERVISOR, lab, RT, psych nurse, elementary school social worker, relay repairer, teacher, customer service officer, major case detective)? Give summary @ -Discussed the CT findings with Dr. Stern of pulmonology. He was in agreement with plan for deferring any chest tube placement at this time based on the fact that the hydropneumothorax appears to be located in the similar fo otprint as the previous pleural effusion that had thoracentesis done approximately 2 months ago. Without any obvious respiratory distress. With this being an incidental finding. Was in agreement the plan for deferring chest tube at this time and they will evaluate the patient and help make that d etermination. I spoke with the admitting provider, Dr. Banks who accepted the admission. Was smoking cessation discussed for >3mins.? @ -No Was critical care preformed (if so, how long)? @ -Yes, 33 minutes. Were there social determinants of health that impacted care today? How? (Homelessness, low income, unemployed, alcoholism, drug addiction, transportation, low edu. Level, literacy, decrease access to med. care, [place] [facility], rehab)? @ -No Was there de-escalation of care discussed even if they declined (Discuss DNR or withdrawal of care, Hospice)? DNR status @ -Discussed with the daughter, however she states that patient wishes to remain full code at this time. What co-morbidities impacted this encounter? (DM, HTN, Smoking, COPD, CAD, Cancer, CVA, ARF, Chemo, Hep., AIDS, mental health diagnosis, sleep apnea, morbid obesity)? @ -Dementia, chronic indwelling Davidson catheter Was patient admitted / discharged? Hospital course, mention meds given and route, prescriptions, significant lab abnormalities, going to OR and other pertinent info. @ -Based on the patient's presentation and physical exam, presents for altered mentation and suspected UTI. Patient has multiple SIRS criteria and will be started on sepsis workup. Sepsis criteria met at 0920. Broad-spectrum antibiotics initiated. Patient received 1 L fluid bolus as well as maintenance fluids, as he does have a history of CHF and I do not want to volume overload the patient. Will continue to monitor. Blood culture sent. Urinalysis obtained on a fresh urine after Davidson catheter swapped and urine culture sent as well. CTs of the brain, chest abdomen pelvis were also be obtained. Patient and family in agreement this plan. EKG shows no signs of acute ischemia. Laboratory studies remarkable for leukocytosis of 17.8. Patient has an AMY with BUN of 48 and creatinine of 1.78. Lactic acidosis of 2.5. Urinalysis remarkable for UTI. Remainder the workup unremarkable. Patient's CT imaging of the chest abdomen pelvis shows constipation but also a large hydropneumothorax on the right chest. Appears to be in the same footprint as previous pleural effusion that had drainage via thoracentesis back in September 2023. There is a nearly identical footprint for the hydropneumothorax. Patient has no respiratory distress. This is an incidental finding. I discussed with Dr. Bo of pulmonology the findings on CT as well as the patient's current clinical state. Was in agreement plan for deferring chest tube placement and drainage of the hydropneumothorax at this time based on clinical presentation. They will evaluate the patient and make that determination farther. I spoke with Dr. Banks accepted the admission. Patient's daughter updated. Imaging remarkable for brain CT that is within normal limits, chest x-ray unremarkable. Undiagnosed new problem with uncertain prognosis? @ -No Drug Therapy requiring intensive monitoring for toxicity (Heparin, Nitro, Insulin, Cardizem)? @ -No Were any procedures done? @ -No Diagnosis/symptom? @ -Altered mentation, sepsis secondary to UTI, AMY, hydropneumothorax Acute, or Chronic, or Acute on Chronic? @ -Acute Uncomplicated (without systemic symptoms) or Complicated (systemic symptoms)? @ -Complicated Side effects of treatment? @ -No Exacerbation, Progression, or Severe Exacerbation? @ -No Poses a threat to life or bodily function? How? (Chest pain, [place], [place], pneumonia, PE, COPD, DKA, ARF, appy, cholecystitis, CVA, Diverticulitis, Homicidal, [place] m[place], threat to staff... and all critical care pts) @ -Yes - Lab Data Result diagrams: 11/10/23 09:29 11/10/23 09:29 Lab Results 11/10/23 11/10/23 11/10/23 Range/Units 09:29 09:29 09:29 WBC 17.8 H (3.8-10.6) k/uL RBC 4.49 (4.30-5.90) m/uL Hgb 11.7 L D (13.0-17.5) gm/dL Hct 37.3 L (39.0-53.0) % MCV 82.9 (80.0-100.0) fL MCH 26.0 (25.0-35.0) pg MCHC 31.4 (31.0-37.0) g/dL RDW 15.9 H (11.5-15.5) % Plt Count 471 H (150-450) k/uL MPV 8.0 Neutrophils % 91 % Lymphocytes % 4 % Monocytes % 4 % Eosinophils % 0 % Basophils % 0 % Neutrophils # 16.2 H (1.3-7.7) k/uL Lymphocytes # 0.8 L (1.0-4.8) k/uL Monocytes # 0.7 (0-1.0) k/uL Eosinophils # 0.0 (0-0.7) k/uL Basophils # 0.0 (0-0.2) k/uL Hypochromasia Marked PT 13.1 H (10.0-12.5) sec INR 1.2 H (<1.2) APTT 23.8 (22.0-30.0) sec Sodium (137-145) mmol/L Potassium (3.5-5.1) mmol/L Chloride (98-107) mmol/L Carbon Dioxide (22-30) mmol/L Anion Gap mmol/L BUN (9-20) mg/dL Creatinine (0.66-1.25) mg/dL Est GFR (CKD-EPI)AfAm (>60 ml/min/1.73 sqM) Est GFR (CKD-EPI)NonAf (>60 ml/min/1.73 sqM) Glucose (74-99) mg/dL POC Glucose (mg/dL) (70-110) mg/dL POC Glu Meter Tester ID Lactic Ac Sepsis Rflx Plasma Lactic Acid Ata (0.7-2.0) mmol/L Calcium (8.4-10.2) mg/dL Total Bilirubin (0.2-1.3) mg/dL AST (17-59) U/L ALT (4-49) U/L Alkaline Phosphatase (38-126) U/L Ammonia (<30) umol/L Total Protein (6.3-8.2) g/dL Albumin (3.5-5.0) g/dL Urine Color Yellow Urine Appearance Turbid (Clear) Urine pH 6.0 (5.0-8.0) Ur Specific [place] 1.026 (1.001-1.035) Urine Protein 3+ H (Negative) Urine Glucose (UA) Negative (Negative) Urine Ketones 1+ H (Negative) Urine Blood Moderate H (Negative) Urine Nitrite Positive (Negative) Urine Bilirubin Negative (Negative) Urine Urobilinogen <2.0 (<2.0) mg/dL Ur Leukocyte Esterase Large H (Negative) Urine RBC >182 H (0-5) /hpf Urine WBC 111 H (0-5) /hpf Ur Squamous Epith Cells 2 (0-4) /hpf Urine Bacteria Few H (None) /hpf Urine Mucus Few H (None) /hpf Ur Yeast w Hyphae Few (None) /hpf Urine Yeast (Budding) Many H (None) /hpf Urine Opiates Screen Detected H (NotDetected) Ur Oxycodone Screen Not Detected (NotDetected) Urine Methadone Screen Not Detected (NotDetected) Ur Barbiturates Screen Not Detected (NotDetected) U Tricyclic Antidepress Not Detected (NotDetected) Ur Phencyclidine Scrn Not Detected (NotDetected) Ur Amphetamines Screen Not Detected (NotDetected) U Methamphetamines Scrn Not Detected (NotDetected) U Benzodiazepines Scrn Detected H (NotDetected) Urine Cocaine Screen Not Detected (NotDetected) U Marijuana (THC) Screen Not Detected (NotDetected) Serum Alcohol mg/dL Influenza Type A (PCR) (Not Detectd) Influenza Type B (PCR) (Not Detectd) RSV (PCR) (Not Detectd) SARS-CoV-2 (PCR) (Not Detectd) 11/10/23 11/10/23 11/10/23 Range/Units 09:29 09:29 09:29 WBC (3.8-10.6) k/uL RBC (4.30-5.90) m/uL Hgb (13.0-17.5) gm/dL Hct (39.0-53.0) % MCV (80.0-100.0) fL MCH (25.0-35.0) pg MCHC (31.0-37.0) g/dL RDW (11.5-15.5) % Plt Count (150-450) k/uL MPV Neutrophils % % Lymphocytes % % Monocytes % % Eosinophils % % Basophils % % Neutrophils # (1.3-7.7) k/uL Lymphocytes # (1.0-4.8) k/uL Monocytes # (0-1.0) k/uL Eosinophils # (0-0.7) k/uL Basophils # (0-0.2) k/uL Hypochromasia PT (10.0-12.5) sec INR (<1.2) APTT (22.0-30.0) sec Sodium 146 H (137-145) mmol/L Potassium 3.3 L (3.5-5.1) mmol/L Chloride 110 H (98-107) mmol/L Carbon Dioxide 23 (22-30) mmol/L Anion Gap 13 mmol/L BUN 48 H (9-20) mg/dL Creatinine 1.78 H (0.66-1.25) mg/dL Est GFR (CKD-EPI)AfAm 44 (>60 ml/min/1.73 sqM) Est GFR (CKD-EPI)NonAf 38 (>60 ml/min/1.73 sqM) Glucose 326 H (74-99) mg/dL POC Glucose (mg/dL) (70-110) mg/dL POC Glu Meter Tester ID Lactic Ac Sepsis Rflx Plasma Lactic Acid Ata 2.5 H* (0.7-2.0) mmol/L Calcium 8.8 (8.4-10.2) mg/dL Total Bilirubin 0.7 (0.2-1.3) mg/dL AST 32 (17-59) U/L ALT 19 (4-49) U/L Alkaline Phosphatase 92 (38-126) U/L Ammonia 10 (<30) umol/L Total Protein 7.0 (6.3-8.2) g/dL Albumin 3.3 L (3.5-5.0) g/dL Urine Color Urine Appearance (Clear) Urine pH (5.0-8.0) Ur Specific [place] (1.001-1.035) Urine Protein (Negative) Urine Glucose (UA) (Negative) Urine Ketones (Negative) Urine Blood (Negative) Urine Nitrite (Negative) Urine Bilirubin (Negative) Urine Urobilinogen (<2.0) mg/dL Ur Leukocyte Esterase (Negative) Urine RBC (0-5) /hpf Urine WBC (0-5) /hpf Ur Squamous Epith Cells (0-4) /hpf Urine Bacteria (None) /hpf Urine Mucus (None) /hpf Ur Yeast w Hyphae (None) /hpf Urine Yeast (Budding) (None) /hpf Urine Opiates Screen (NotDetected) Ur Oxycodone Screen (NotDetected) Urine Methadone Screen (NotDetected) Ur Barbiturates Screen (NotDetected) U Tricyclic Antidepress (NotDetected) Ur Phencyclidine Scrn (NotDetected) Ur Amphetamines Screen (NotDetected) U Methamphetamines Scrn (NotDetected) U Benzodiazepines Scrn (NotDetected) Urine Cocaine Screen (NotDetected) U Marijuana (THC) Screen (NotDetected) Serum Alcohol <10 mg/dL Influenza Type A (PCR) Not Detected (Not Detectd) Influenza Type B (PCR) Not Detected (Not Detectd) RSV (PCR) Not Detected (Not Detectd) SARS-CoV-2 (PCR) Not Detected (Not Detectd) 11/10/23 11/10/23 Range/Units 10:03 10:12 WBC (3.8-10.6) k/uL RBC (4.30-5.90) m/uL Hgb (13.0-17.5) gm/dL Hct (39.0-53.0) % MCV (80.0-100.0) fL MCH (25.0-35.0) pg MCHC (31.0-37.0) g/dL RDW (11.5-15.5) % Plt Count (150-450) k/uL MPV Neutrophils % % Lymphocytes % % Monocytes % % Eosinophils % % Basophils % % Neutrophils # (1.3-7.7) k/uL Lymphocytes # (1.0-4.8) k/uL Monocytes # (0-1.0) k/uL Eosinophils # (0-0.7) k/uL Basophils # (0-0.2) k/uL Hypochromasia PT (10.0-12.5) sec INR (<1.2) APTT (22.0-30.0) sec Sodium (137-145) mmol/L Potassium (3.5-5.1) mmol/L Chloride (98-107) mmol/L Carbon Dioxide (22-30) mmol/L Anion Gap mmol/L BUN (9-20) mg/dL Creatinine (0.66-1.25) mg/dL Est GFR (CKD-EPI)AfAm (>60 ml/min/1.73 sqM) Est GFR (CKD-EPI)NonAf (>60 ml/min/1.73 sqM) Glucose (74-99) mg/dL POC Glucose (mg/dL) 312 H (70-110) mg/dL POC Glu Meter Tester ID Belval, Rekha Lactic Ac Sepsis Rflx Y Plasma Lactic Acid Ata (0.7-2.0) mmol/L Calcium (8.4-10.2) mg/dL Total Bilirubin (0.2-1.3) mg/dL AST (17-59) U/L ALT (4-49) U/L Alkaline Phosphatase (38-126) U/L Ammonia (<30) umol/L Total Protein (6.3-8.2) g/dL Albumin (3.5-5.0) g/dL Urine Color Urine Appearance (Clear) Urine pH (5.0-8.0) Ur Specific [place] (1.001-1.035) Urine Protein (Negative) Urine Glucose (UA) (Negative) Urine Ketones (Negative) Urine Blood (Negative) Urine Nitrite (Negative) Urine Bilirubin (Negative) Urine Urobilinogen (<2.0) mg/dL Ur Leukocyte Esterase (Negative) Urine RBC (0-5) /hpf Urine WBC (0-5) /hpf Ur Squamous Epith Cells (0-4) /hpf Urine Bacteria (None) /hpf Urine Mucus (None) /hpf Ur Yeast w Hyphae (None) /hpf Urine Yeast (Budding) (None) /hpf Urine Opiates Screen (NotDetected) Ur Oxycodone Screen (NotDetected) Urine Methadone Screen (NotDetected) Ur Barbiturates Screen (NotDetected) U Tricyclic Antidepress (NotDetected) Ur Phencyclidine Scrn (NotDetected) Ur Amphetamines Screen (NotDetected) U Methamphetamines Scrn (NotDetected) U Benzodiazepines Scrn (NotDetected) Urine Cocaine Screen (NotDetected) U Marijuana (THC) Screen (NotDetected) Serum Alcohol mg/dL Influenza Type A (PCR) (Not Detectd) Influenza Type B (PCR) (Not Detectd) RSV (PCR) (Not Detectd) SARS-CoV-2 (PCR) (Not Detectd) - EKG Data -: EKG Interpreted by Me EKG Comments: 12-lead Electrocardiogram Interpretation Note EKG was reviewed and interpreted by myself. 12-lead ECG performed at 1103 is interpreted by me as revealing normal sinus rhythm at a rate of 92 beats per minute. [place] is normal. VT interval is 200 ms, QRS durations 158 ms, QTc is 504 ms.. There were no ST or T wave abnormalities to suggest myocardial ischemia or injury. R wave progression across the precordium was satisfactory. By my interpretation this EKG is non-diagnostic for acute ischemia. Critical Care Time Critical Care Time: Yes Total Critical Care Time: 33 Disposition Clinical Impression: Sepsis, Altered mental status, UTI (urinary tract infection), Hydropneumothorax, AMY (acute kidney injury) Disposition: ADMITTED IP TO THIS HOSP Condition: Serious Time of Disposition: 11:55
[2023-11-10] MEDS: GLYCERIN ADULT SUPPOSITORY 1 EACH RECTAL STA (13:31)
[2023-11-10] MEDS ORDERED: DEXTROSE 50% SYRINGE 50 ML IVP PRN (14:06)
[2023-11-10] MEDS: HEPARIN SODIUM,PORCINE 5,000 UNIT/ML 1 ML VIAL SQ SCH (15:47)
--- NOTE | 2023-11-10 16:19 | P.HPIM ---
History of Present Illness H&P Date: 11/10/23 Chief Complaint: Altered mentation This is a 73-year-old patient, follows with visiting physicians Dr. Rene. Chronic stable medical conditions include diabetes, GERD, hypertension, hyperlipidemia, chronic venous stasis wounds. Arthritis. Neuropathy. Bilateral above-knee amputation. CHF EF 40 to 45%, dementia, home oxygen 2 L chronic Davidson catheter. Patient is taking care of by his daughter. Per the EMS report 70 9 PM patient became unresponsive. From his normal alert self. She tried sternal rubs with no real success. Patient had not had a bowel movement for 16 days. Per PCP magnesium citrate was ordered. Also for last several days poor oral intake. Had a recent pneumonia and a UTI. Temperature recorded was 101. Was found to be rather unkempt and fall ordered by the EMS. They gave IV fluids. EKG showed sinus tachycardia. In the ER patient somewhat delirious. Really cannot give any history. No family at the bedside. On October 04 950 cc of dark bloody fluid from the right pleural space was taken out by Dr. BLANC. ER physician called Dr. BLANC from pulmonary regarding the large right hydropneumothorax. Present time nothing further was to be done. Review of systems cannot be done patient somewhat delirious . Social history: Former smoker. Cared for by his daughter. Physical examination: VITAL SIGNS: 101.6, 90, 16, 155/91, 95% room air GENERAL: BMI 51. Laying in bed. Somewhat delirious. Unkempt EYES: [Pupils equal. Conjunctiva pale l. HEENT: External appearance of nose and ears normal, oral cavity dry mucous membrane. NECK: JVD not raised; masses not palpable. HEART: First and second heart sounds are normal; no edema. LUNGS: Respiratory rate increased; decreased breath sounds. ABDOMEN: Soft, nontender, liver spleen not palpable, no masses palpable. Davidson catheter PSYCH: Patient delirious l. MUSCULOSKELETAL:No Clubbing/cyanosis;muscles-grossly intact. Lower back decubitus wound pictures in the chart NEUROLOGICAL: [Cranial nerves grossly intact; no facial asymmetry, moving all 4 limbs LYMPHATICS: No lymph nodes palpable in the axilla and neck INVESTIGATIONS, reviewed in the clinical context: November 10, 2023: White count 7.8 hemoglobin 11.7 platelets 471 sodium 146 potassium 3.3 BUN 48 creatinine 1.78 lactic acid 2.5 UA positive for leukoesterase, WBC 111 nitrite positive [place] Urine drug screen: Positive for opiates benzodiazepine Influenza type A, type B, RSV, COVID-19: Not detected EKG tracing personally reviewed by me-intraventricular block. Ectopic atrial focus Chest abdomen pelvis CT: Large right hydropneumothorax. Consolidation in the right lung. Patchy infiltrate in the posterior segment left lower lobe. Extensive retained fecal debris. Atrophy of the pancreas. Stable adenoma /hyperplasia of the adrenal gland. Left kidney atrophic DJD changes of spine. Cardiomegaly Previous labs: Creatinine 0.8 on October 06, 2023 Assessment plan: -Severe sepsis. Source pneumonia, UTI. Rule out empyema IV cefepime. Given IV vancomycin in the ER.-Because of renal function hold off. Urine culture. Blood culture. -Right-sided large hydropneumothorax. On October 04 950 cc of dark bloody fluid from the right pleural space was aspirated by Dr. BLANC Pulmonary Dr. BLANC consulted -Lactic acidosis from sepsis -Pneumonia multilobar suspect gram-negative organism IV cefepime -Acute UTI with cystitis secondary to Davidson catheter IV cefepime -Acute delirium metabolic encephalopathy multifactorial -Acute kidney injury combination of prerenal and ATN multifactorial Hold Aldactone. Cut back dose of Neurontin. IV fluids. -Hyperlipidemia Lipitor 80 mg nightly -Chronic congestive heart failure systolic dysfunction EF 40 to 45% Follow cardiovascular status. IV hydration. -Peripheral neuropathy Given kidney injury will cut back dose of Neurontin -Chronic bladder outflow obstruction/BPH Flomax 0.4 mg a day. 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 Follow Accu-Cheks -Full code 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 Date of last positivie culture/infection: 10/28/22 MDRO Source:: Blood Past Surgical History: Heart Catheterization Additional Past Surgical History / Comment(s): bilateral great toes amputated, 2nd toe lt foot partial amputation, multiple debridements of venous ulcers, colonoscopy, surgery as a child for undescended testicle., ABOVE THE KNEE AMPUTATION RIGHT LEG (JUNE 2017-[facility]) Past Anesthesia/Blood Transfusion Reactions: No Reported Reaction Date of Last Stent Placement:: 10/17/2022 Past Psychological History: Anxiety, Depression Smoking Status: Former smoker Past Alcohol Use History: Unable to Obtain Past Drug Use History: Unable to Obtain - Past Family History Father Family Medical History: Cancer Additional Family Medical History / Comment(s): Father from brain cancer Mother Family Medical History: Eye Disorder Additional Family Medical History / Comment(s): Glaucoma. Mother is . Medications and Allergies Home Medications Medication Instructions Recorded Confirmed Type traZODone HCL 50 mg PO HS 11/09/17 11/10/23 History Famotidine [Pepcid] 20 mg PO BID 09/29/22 11/10/23 History Tamsulosin [Flomax] 0.4 mg PO DAILY 09/29/22 11/10/23 History Insulin Glargine,Hum.rec.anlog 20 units SQ BID 05/25/23 11/10/23 History [Lantus Solostar Pen] LORazepam [Ativan] 0.5 mg PO BID PRN 06/25/23 11/10/23 History Sodium Bicarbonate Tab 650 mg PO BID #60 tab 07/03/23 11/10/23 Rx Spironolactone [Aldactone] 25 mg PO DAILY 30 Days #30 tab 07/03/23 11/10/23 Rx amLODIPine [Norvasc] 10 mg PO DAILY #30 tab 07/03/23 11/10/23 Rx Clopidogrel [Plavix] 75 mg PO DAILY 10/02/23 11/10/23 History Glycopyrrolate 1 mg PO TID PRN 10/02/23 11/10/23 History HYDROcodone/APAP 7.5-325MG [[place] 1 tab PO Q6HR PRN 10/02/23 11/10/23 History 7.5-325] Sennosides [Senokot] 8.6 mg PO DAILY 10/02/23 11/10/23 History Acetaminophen Tab [Tylenol Tab] 500 mg PO Q6H PRN 11/10/23 11/10/23 History Atorvastatin Calcium [Lipitor] 80 mg PO HS 11/10/23 11/10/23 History Gabapentin [Neurontin] 300 mg PO BID 11/10/23 11/10/23 History Insulin Lispro [humaLOG Kwikpen] 2 - 20 unit SQ ACHS 11/10/23 11/10/23 History Magnesium Citrate [Citrate of 296 ml PO RING 11/10/23 11/10/23 History Magnesia] Nystatin 100,000 Unit/gm Powd 1 applic TOPICAL BID 11/10/23 11/10/23 History [Mycostatin Powder] Allergies Allergy/AdvReac Type Severity Reaction Status Date / Time No Known Allergies Allergy Verified 11/10/23 11:35 Physical Exam Vitals: Vital Signs Temp Pulse Resp BP Pulse Ox 11/10/23 13:49 100.0 F H 67 18 164/77 99 11/10/23 13:17 76 18 151/63 99 11/10/23 11:59 101.6 F H 90 16 155/91 95 11/10/23 11:24 89 18 132/70 97 11/10/23 09:03 101 F H 101 H 18 130/109 97 Intake and Output 11/10/23 11/10/23 11/10/23 06:59 14:59 22:59 Other: Weight 60.781 kg Results CBC & Chem 7: 11/10/23 09:29 11/10/23 09:29 Labs: Abnormal Lab Results - Last 24 Hours (Table) 11/10/23 11/10/23 11/10/23 Range/Units 09:29 09:29 09:29 WBC 17.8 H (3.8-10.6) k/uL Hgb 11.7 L D (13.0-17.5) gm/dL Hct 37.3 L (39.0-53.0) % RDW 15.9 H (11.5-15.5) % Plt Count 471 H (150-450) k/uL Neutrophils # 16.2 H (1.3-7.7) k/uL Lymphocytes # 0.8 L (1.0-4.8) k/uL PT 13.1 H (10.0-12.5) sec INR 1.2 H (<1.2) Sodium (137-145) mmol/L Potassium (3.5-5.1) mmol/L Chloride (98-107) mmol/L BUN (9-20) mg/dL Creatinine (0.66-1.25) mg/dL Glucose (74-99) mg/dL POC Glucose (mg/dL) (70-110) mg/dL Plasma Lactic Acid Ata (0.7-2.0) mmol/L Albumin (3.5-5.0) g/dL Urine Protein 3+ H (Negative) Urine Ketones 1+ H (Negative) Urine Blood Moderate H (Negative) Ur Leukocyte Esterase Large H (Negative) Urine RBC >182 H (0-5) /hpf Urine WBC 111 H (0-5) /hpf Urine Bacteria Few H (None) /hpf Urine Mucus Few H (None) /hpf Urine Yeast (Budding) Many H (None) /hpf Urine Opiates Screen Detected H (NotDetected) U Benzodiazepines Scrn Detected H (NotDetected) 11/10/23 11/10/23 11/10/23 Range/Units 09:29 09:29 10:03 WBC (3.8-10.6) k/uL Hgb (13.0-17.5) gm/dL Hct (39.0-53.0) % RDW (11.5-15.5) % Plt Count (150-450) k/uL Neutrophils # (1.3-7.7) k/uL Lymphocytes # (1.0-4.8) k/uL PT (10.0-12.5) sec INR (<1.2) Sodium 146 H (137-145) mmol/L Potassium 3.3 L (3.5-5.1) mmol/L Chloride 110 H (98-107) mmol/L BUN 48 H (9-20) mg/dL Creatinine 1.78 H (0.66-1.25) mg/dL Glucose 326 H (74-99) mg/dL POC Glucose (mg/dL) 312 H (70-110) mg/dL Plasma Lactic Acid Ata 2.5 H* (0.7-2.0) mmol/L Albumin 3.3 L (3.5-5.0) g/dL Urine Protein (Negative) Urine Ketones (Negative) Urine Blood (Negative) Ur Leukocyte Esterase (Negative) Urine RBC (0-5) /hpf Urine WBC (0-5) /hpf Urine Bacteria (None) /hpf Urine Mucus (None) /hpf Urine Yeast (Budding) (None) /hpf Urine Opiates Screen (NotDetected) U Benzodiazepines Scrn (NotDetected)
[2023-11-10 16:32] LABS: Glucose,Whole Blood 282 mg/dL (70-110)
[2023-11-10] MEDS: INSULIN ASPART (NovoLOG) 100 UNIT/ML VIAL SQ SCH (16:34)
[2023-11-10] MEDS: ENOXAPARIN 40 MG/0.4 ML SYRINGE SQ SCH (16:34)
[2023-11-10] MEDS: SODIUM CHLORIDE 0.9% 1,000 ML IV SCH (16:35)
[2023-11-10 20:10] LABS: Glucose,Whole Blood 138 mg/dL (70-110)
[2023-11-10] MEDS: INSULIN DETEMIR (LEVEMIR) 100 UNIT/ML SYR SQ SCH (20:10)
--- NOTE | 2023-11-11 01:43 | P.CNPUL ---
History of Present Illness Consult date: 11/11/23 Requesting physician: Theo Bo Reason for consult: pleural effusion, pneumothorax Chief complaint: Altered mental status History of present illness: Patient is a 73-year-old male with multiple complex comorbidities including diabetes mellitus, hypertension, hyperlipidemia, coronary disease with previous PCI/stenting, chronic indwelling Davidson catheter, bilateral AKA, decubitus pressure ulcer, and recurrent right-sided pleural effusion. He has had previous right-sided thoracentesis May,. Fluid was cytologically negative for malignancy at this time. Also, during a recent hospitalization to September,. He was noted to have a large right-sided pleural effusion, underwent right-sided thoracentesis on 10/05/2023, draining approximately 950 mL of bloody fluid. Not sent for cytology this occasion. Patient did develop a hydropneumothorax postoperatively. Concerns for trapped lung. He was also treated for a urinary tract infection this admission. Isolated organisms were E. coli and Enterobacter cloacae. He was treated with IV antibiotics. He was ultimately discharged home with home care. Never followed up in the pulmonary office. He returns to the emergency department yesterday morning. He is lethargic and a poor historian. Oriented to self only. Most of this information is taken from chart review. He is febrile, there are concerns for recurrent urinary tract infection. Reportedly has a chronic indwelling urinary catheter with recurrent urinary tract infections. CT of the chest/abdomen/pelvis without contrast shows a large right-sided hydropneumothorax, adjacent right lower lobe consolidation could be related to compressive atelectasis. Underlying neoplasm or infectious etiology was not entirely excluded. There was patchy somewhat nodular ground glass changes in the left lower lobe, favoring infectious per inflammatory process. Incidental fecal impaction noted. He was recently treated for possible left lower lobe pneumonia on his previous admission. Does not appear to be any respiratory distress at the moment. On room air. SpO2 reading 92%. No tachypnea or accessory muscle use.. Blood pressure 146/63, heart rate 70 bpm, febrile with a Tmax of 101.6 F. CBC: WBC count 17.8, hemoglobin 11.7, hematocrit 37.3, platelets 471. CMP: Sodium 146, potassium 3.3, chloride 110, serum bicarb 23, BUN 48, creatinine 1.78, glucose 326. Lactic 2.5 and down to 1.3. LFTs unremarkable. Urinalysis positive for leukocyte esterase and few bacteria. Urine toxicology screen positive for opiates and benzodiazepines. CT of the brain without contrast negative for any intracranial hemorrhage or mass effect. There was moderate to severe ventricular dilation of the greater central component. Normal pressure hydrocephalus or hydrocephalus was c onsidered. Negative for influenza, RSV, COVID. Empirically covered on a combination of cefepime and vancomycin. No immediate signs of hemodynamic compromise. Chest tube was not inserted in the emergency department. Review of Systems ROS unobtainable: due to mental status 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 Date of last positivie culture/infection: 10/28/22 MDRO Source:: Blood Past Surgical History: Heart Catheterization Additional Past Surgical History / Comment(s): bilateral great toes amputated, 2nd toe lt foot partial amputation, multiple debridements of venous ulcers, colonoscopy, surgery as a child for undescended testicle., ABOVE THE KNEE AMPUTATION RIGHT LEG (JUNE 2017-[facility]) Past Anesthesia/Blood Transfusion Reactions: No Reported Reaction Date of Last Stent Placement:: 10/17/2022 Past Psychological History: Anxiety, Depression Additional Psychological History / Comment(s): . Smoking Status: Former smoker Past Alcohol Use History: Unable to Obtain Additional Past Alcohol Use History / Comment(s): no alcohol currently Past Drug Use History: Unable to Obtain - Past Family History Father Family Medical History: Cancer Additional Family Medical History / Comment(s): Father from brain cancer Mother Family Medical History: Eye Disorder Additional Family Medical History / Comment(s): Glaucoma. Mother is . Medications and Allergies Home Medications Medication Instructions Recorded Confirmed Type traZODone HCL 50 mg PO HS 11/09/17 11/10/23 History Famotidine [Pepcid] 20 mg PO BID 09/29/22 11/10/23 History Tamsulosin [Flomax] 0.4 mg PO DAILY 09/29/22 11/10/23 History Insulin Glargine,Hum.rec.anlog 20 units SQ BID 05/25/23 11/10/23 History [Lantus Solostar Pen] LORazepam [Ativan] 0.5 mg PO BID PRN 06/25/23 11/10/23 History Sodium Bicarbonate Tab 650 mg PO BID #60 tab 07/03/23 11/10/23 Rx Spironolactone [Aldactone] 25 mg PO DAILY 30 Days #30 tab 07/03/23 11/10/23 Rx amLODIPine [Norvasc] 10 mg PO DAILY #30 tab 07/03/23 11/10/23 Rx Clopidogrel [Plavix] 75 mg PO DAILY 10/02/23 11/10/23 History Glycopyrrolate 1 mg PO TID PRN 10/02/23 11/10/23 History HYDROcodone/APAP 7.5-325MG [[place] 1 tab PO Q6HR PRN 10/02/23 11/10/23 History 7.5-325] Sennosides [Senokot] 8.6 mg PO DAILY 10/02/23 11/10/23 History Acetaminophen Tab [Tylenol Tab] 500 mg PO Q6H PRN 11/10/23 11/10/23 History Atorvastatin Calcium [Lipitor] 80 mg PO HS 11/10/23 11/10/23 History Gabapentin [Neurontin] 300 mg PO BID 11/10/23 11/10/23 History Insulin Lispro [humaLOG Kwikpen] 2 - 20 unit SQ ACHS 11/10/23 11/10/23 History Magnesium Citrate [Citrate of 296 ml PO RING 11/10/23 11/10/23 History Magnesia] Nystatin 100,000 Unit/gm Powd 1 applic TOPICAL BID 11/10/23 11/10/23 History [Mycostatin Powder] Allergies Allergy/AdvReac Type Severity Reaction Status Date / Time No Known Allergies Allergy Verified 11/10/23 11:35 Physical Exam Vitals: Vital Signs Temp Pulse Resp BP Pulse Ox 11/10/23 21:19 56 L 20 144/63 99 11/10/23 20:00 55 L 14 115/51 99 11/10/23 18:32 60 18 153/69 99 11/10/23 17:50 59 L 18 148/62 99 11/10/23 16:36 55 L 18 166/70 98 11/10/23 13:49 100.0 F H 67 18 164/77 99 11/10/23 13:17 76 18 151/63 99 11/10/23 11:59 101.6 F H 90 16 155/91 95 11/10/23 11:24 89 18 132/70 97 11/10/23 09:03 101 F H 101 H 18 130/109 97 Intake and Output 11/10/23 11/10/23 11/11/23 14:59 22:59 06:59 Other: Weight 60.781 kg 60.781 kg GENERAL EXAM: Lethargic, wakes up and answer some questions, disheveled, bilateral AKA HEAD: Normocephalic and atraumatic EYES: Normal reaction of pupils, equal size. NOSE: Clear with pink turbinates. THROAT: No erythema or exudates. NECK: No masses, no JVD. No tracheal deviation. CHEST: No chest wall deformity. LUNGS: Diminished right-sided lung sounds. No wheezes, rhonchi, crackles. Hyperresonance to precussion right side. On room air. SpO2 92%. No conversational dyspnea or accessory muscle use.. CVS: S1 and S2 normal with no audible murmur, regular rhythm. No extra heart sounds ABDOMEN: No hepatosplenomegaly, active bowel sounds, no guarding or rigidity. SPINE: No scoliosis or deformity SKIN: No rashes CENTRAL NERVOUS SYSTEM: No focal deficits, tone is normal in all 4 extremities. EXTREMITIES: Bilateral AKA. No significant edema. Results - Laboratory Findings CBC and BMP: 11/10/23 09:29 11/10/23 09:29 PT/INR, D-dimer PT 13.1 sec (10.0-12.5) H 11/10/23 09:29 INR 1.2 (<1.2) H 11/10/23 09:29 Abnormal lab findings: Abnormal Labs 11/10/23 11/10/23 11/10/23 09:29 09:29 09:29 WBC 17.8 H Hgb 11.7 L D Hct 37.3 L RDW 15.9 H Plt Count 471 H Neutrophils # 16.2 H Lymphocytes # 0.8 L PT 13.1 H INR 1.2 H Sodium Potassium Chloride BUN Creatinine Glucose POC Glucose (mg/dL) Plasma Lactic Acid Ata Albumin Urine Protein 3+ H Urine Ketones 1+ H Urine Blood Moderate H Ur Leukocyte Esterase Large H Urine RBC >182 H Urine WBC 111 H Urine Bacteria Few H Urine Mucus Few H Urine Yeast (Budding) Many H Urine Opiates Screen Detected H U Benzodiazepines Scrn Detected H 11/10/23 11/10/23 11/10/23 09:29 09:29 10:03 WBC Hgb Hct RDW Plt Count Neutrophils # Lymphocytes # PT INR Sodium 146 H Potassium 3.3 L Chloride 110 H BUN 48 H Creatinine 1.78 H Glucose 326 H POC Glucose (mg/dL) 312 H Plasma Lactic Acid Ata 2.5 H* Albumin 3.3 L Urine Protein Urine Ketones Urine Blood Ur Leukocyte Esterase Urine RBC Urine WBC Urine Bacteria Urine Mucus Urine Yeast (Budding) Urine Opiates Screen U Benzodiazepines Scrn 11/10/23 11/10/23 16:31 20:08 WBC Hgb Hct RDW Plt Count Neutrophils # Lymphocytes # PT INR Sodium Potassium Chloride BUN Creatinine Glucose POC Glucose (mg/dL) 282 H 138 H Plasma Lactic Acid Ata Albumin Urine Protein Urine Ketones Urine Blood Ur Leukocyte Esterase Urine RBC Urine WBC Urine Bacteria Urine Mucus Urine Yeast (Budding) Urine Opiates Screen U Benzodiazepines Scrn - Diagnostic Findings Chest x-ray: image reviewed CT scan - chest: image reviewed Assessment and Plan Assessment: Persistent large right-sided hydropneumothorax, Patient did recently undergo right-sided thoracentesis on 10/05/2023, draining approximately 950 mL of bloody fluid. Not sent for cytology this occasion, but fluid previously cytologically unremarkable for malignant cells. Patient did develop a hydropneumothorax postoperatively. Concerns for trapped lung. Possible left lower lobe pneumonia. Recent inpatient treatment for presumptive left lower lobe community-acquired pneumonia. CT of the chest, abdomen, pelvis now showing a large right-sided hydropneumothorax. Adjacent right lower lobe consolidation could be related to compressive atelectasis. Underlying neoplasm or infectious etiology was not entirely excluded. There is also patchy somewhat nodular groundglass changes within the left lower lobe, favoring inflammatory vs infectious pneumonitis. Possible urinary tract infection, with history of chronic indwelling urinary catheter and recurrent UTIs. Most recent isolated organism from his hospitalization in September, E. coli and Enterobacter cloacae. Altered mental status, concerns for metabolic encephalopathy and sepsis Acute febrile illness AMY Severe constipation/fecal impaction Chronic systolic congestive heart failure, with a ejection fraction of 40 to 45% Bilateral AKA Chronic decubitus pressure ulcer History of diabetes mellitus History of hypertension History of hyperlipidemia History of coronary artery disease with multiple previous PCI/stenting History of gastroesophageal reflux disease Plan: Patient's medications, labs, imaging reviewed No signs of hemodynamic compromise. No tension features or mediastinal shift. Trachea midline. Patient is on room air. No significant respiratory distress. No thoracotomy tube placed at this time. Findings possibly representing trapped lung with incomplete reexpansion status post recent thoracentesis. Patient continues to be febrile. Blood and urine cultures are pending. Covered on empiric antibiotics in the form of cefepime and vancomycin. Obtain ABG. Prognosis is guarded secondary to above-mentioned comorbidities. Will continue to follow, and further recommendations are forthcoming. I have personally seen and examined the patient, performed the documentation and the assessment and plan as written. Number of minutes spent on the visit:20 Time with Patient: Greater than 30
[2023-11-11 02:09] LABS: ABG HCO3 25 mmol/L (21-25); ABG Oxygen Saturation 99.7 % (94-97); ABG PCO2 32 mmHg (35-45); ABG PO2 124 mmHg (83-108); ABG TCO2 26 mmol/L (19-24); Allen Test Performed? Yes
[2023-11-11 06:21] LABS: Glucose,Whole Blood 113 mg/dL (70-110)
[2023-11-11 06:48] LABS: Basophils % (A) 0 %; Eosinophils % (A) 0 %; HCT 33.6 % (39.0-53.0); HGB 10.2 gm/dL (13.0-17.5); Hypochromasia Marked; Lymphocytes # (A) 0.9 k/uL (1.0-4.8); Lymphocytes % (A) 6 %; MCH 25.8 pg (25.0-35.0); MCHC 30.4 g/dL (31.0-37.0); MCV 84.8 fL (80.0-100.0); Mean Platelet Volume 7.8; Monocytes # (A) 0.6 k/uL (0-1.0); Monocytes % (A) 4 %; Neutrophils # (A) 14.3 k/uL (1.3-7.7); Neutrophils % (A) 89 %; Platelet Count 339 k/uL (150-450); RBC 3.96 m/uL (4.30-5.90); RDW 15.8 % (11.5-15.5)
[2023-11-11 06:58] LABS: ALT 16 U/L (4-49); AST 28 U/L (17-59); African American GFR (CKD) 59 (>60 ml/min/1.73 sqM); Albumin 2.7 g/dL (3.5-5.0); Alkaline Phosphatase 75 U/L (38-126); Anion Gap 6 mmol/L; Blood Urea Nitrogen 44 mg/dL (9-20); Calcium 8.1 mg/dL (8.4-10.2); Carbon Dioxide 25 mmol/L (22-30); Chloride 118 mmol/L (98-107); Glucose 110 mg/dL (74-99); Non-African American GFR(CKD) 51 (>60 ml/min/1.73 sqM); Sodium 149 mmol/L (137-145); Total Bilirubin 0.6 mg/dL (0.2-1.3); Total Protein 5.9 g/dL (6.3-8.2)
[2023-11-11 07:00] LABS: Potassium 2.5 mmol/L (3.5-5.1)
[2023-11-11] MEDS ORDERED: Potassium Replacement Protocol 1 EACH MISC MISCELLANE PRN (07:04)
[2023-11-11] MEDS: POTASSIUM CHLORIDE 20 MEQ in WATER FOR INJECTION 1 100ML.BAG IVPB SCH (08:12)
[2023-11-11] MEDS: amLODIPine 10 MG TAB PO SCH (08:13)
[2023-11-11] MEDS: SPIRONOLACTONE 25 MG TAB PO SCH (08:14)
[2023-11-11] MEDS: TAMSULOSIN 0.4 MG CAP.ER.24H PO SCH (08:14)
[2023-11-11] MEDS: POTASSIUM CHLORIDE ER 20 MEQ TAB.ER PO SCH (08:14)
[2023-11-11] MEDS: CLOPIDOGREL 75 MG TAB PO SCH (08:14)
[2023-11-11] MEDS ORDERED: VANCOMYCIN 1,000 MG in SODIUM CHLORIDE 0.9% 250 ML IVPB SCH (10:00)
[2023-11-11 13:28] LABS: Glucose,Whole Blood 88 mg/dL (70-110)
[2023-11-11] MEDS: ACETAMINOPHEN TAB 325 MG TAB PO PRN (14:02)
[2023-11-11] MEDS: LACTATED RINGERS 1,000 ML IV SCH (15:50)
--- NOTE | 2023-11-11 16:38 | P.PN ---
Progress Note - Text Progress Note Date: 11/11/23 Chief Complaint: Altered mentation This is a 73-year-old patient, follows with visiting physicians Dr. Rene. Chronic stable medical conditions include diabetes, GERD, hypertension, hyperlipidemia, chronic venous stasis wounds. Arthritis. Neuropathy. Bilateral above-knee amputation. CHF EF 40 to 45%, dementia, home oxygen 2 L chronic Davidson catheter. Patient is taking care of by his daughter. Per the EMS report 70 9 PM patient became unresponsive. From his normal alert self. She tried sternal rubs with no real success. Patient had not had a bowel movement for 16 days. Per PCP magnesium citrate was ordered. Also for last several days poor oral intake. Had a recent pneumonia and a UTI. Temperature recorded was 101. Was found to be rather unkempt and fall ordered by the EMS. They gave IV fluids. EKG showed sinus tachycardia. In the ER patient somewhat delirious. Really cannot give any history. No family at the bedside. On October 04 950 cc of dark bloody fluid from the right pleural space was taken out by Dr. BLANC. ER physician called Dr. BLANC from pulmonary regarding the large right hydropneumothorax. Present time nothing further was to be done. November 10: Patient was seen in the ER earlier today. On IV cefepime. A bit more awake. Though still delirious. Dry oral cavity. Oral tolerate ordered. NG tube for medications. Some improvement in renal function. Febrile Active Medications Acetaminophen (Acetaminophen Tab 325 Mg Tab) 650 mg PO Q6HR PRN PRN Reason: Mild Pain or Fever > 100.5 Last Admin: 11/11/23 14:02 Dose: 650 mg Amlodipine Besylate (Amlodipine 10 Mg Tab) 10 mg PO DAILY [facility] Last Admin: 11/11/23 08:13 Dose: 10 mg Clopidogrel Bisulfate (Clopidogrel 75 Mg Tab) 75 mg PO DAILY [facility] Last Admin: 11/11/23 08:14 Dose: 75 mg Dextrose/Water (Dextrose 50% Syringe 50 Ml) 25 ml IVP PER PROTOCOL PRN; Protocol PRN Reason: Hypoglycemia Dextrose/Water (Dextrose 50% Syringe 50 Ml) 50 ml IVP PER PROTOCOL PRN; Protocol PRN Reason: Hypoglycemia Enoxaparin Sodium (Enoxaparin 40 Mg/0.4 Ml Syringe) 40 mg SQ DAILY [facility] Last Admin: 11/11/23 08:11 Dose: 40 mg Cefepime HCl 2 gm/ Sodium (Chloride) 100 mls @ 25 mls/hr IVPB Q12HR [facility]; Protocol Last Admin: 11/11/23 08:11 Dose: 25 mls/hr Lactated Ringer's (Lactated Ringers) 1,000 mls @ 100 mls/hr IV .Q10H [facility] Last Admin: 11/11/23 15:50 Dose: 100 mls/hr Insulin Aspart (Insulin Aspart (Novolog) 100 Unit/Ml Vial) 0 unit SQ AC-TID [facility]; Protocol Last Admin: 11/11/23 14:16 Dose: Not Given Insulin Detemir (Insulin Detemir (Levemir) 100 Unit/Ml Syr) 20 unit SQ HS [facility] Last Admin: 11/10/23 20:10 Dose: Not Given Magnesium Citrate (Magnesium Citrate 296 Ml Bottle) 296 ml PO RING [facility] Miscellaneous Information (Potassium Replacement Protocol 1 Each Misc) 1 each MISCELLANE DAILY PRN; Protocol PRN Reason: Per Protocol Multi-Ingredient Ointment (Zinc Oxide 20% Oint 28.4 Gm Tube) 1 applic TOPICAL BID PRN; Protocol PRN Reason: Wound Healing Naloxone HCl (Naloxone 0.4 Mg/Ml 1 Ml Vial) 0.2 mg IV Q2M PRN PRN Reason: Opioid Reversal Ondansetron HCl (Ondansetron 4 Mg/2 Ml Vial) 4 mg IVP Q8HR PRN PRN Reason: Nausea And Vomiting Spironolactone (Spironolactone 25 Mg Tab) 25 mg PO DAILY [facility] Last Admin: 11/11/23 08:14 Dose: 25 mg Tamsulosin HCl (Tamsulosin 0.4 Mg Cap.Er.24h) 0.4 mg PO DAILY [facility] Last Admin: 11/11/23 08:14 Dose: 0.4 mg Social history: Former smoker. Cared for by his daughter. Physical examination: VITAL SIGNS: 102.2, 70, 24, 167 x 66, 97% room air GENERAL: Laying in bed. Delirious which she had improvement. Unkempt EYES: [Pupils equal. Conjunctiva pale HEENT: External appearance of nose and ears normal, oral cavity dry mucous membrane. NECK: JVD not raised; masses not palpable. HEART: First and second heart sounds are normal; no edema. LUNGS: Respiratory rate increased; decreased breath sounds. ABDOMEN: Soft, nontender, liver spleen not palpable, no masses palpable. Davidson catheter PSYCH: Delirious MUSCULOSKELETAL:No Clubbing/cyanosis;muscles-grossly intact. Lower back decubitus wound pictures in the chart NEUROLOGICAL: [Cranial nerves grossly intact; no facial asymmetry, moving all 4 limbs INVESTIGATIONS, reviewed in the clinical context: Urine culture: Negative November 10: White count 16 hemoglobin 10.2 platelets 339 sodium 149 potassium 2.5 BUN 44 creatinine 1.38 November 10, 2023: White count 7.8 hemoglobin 11.7 platelets 471 sodium 146 potassium 3.3 BUN 48 creatinine 1.78 lactic acid 2.5 UA positive for leukoesterase, WBC 111 nitrite positive [place] Urine drug screen: Positive for opiates benzodiazepine Influenza type A, type B, RSV, COVID-19: Not detected EKG tracing personally reviewed by me-intraventricular block. Ectopic atrial focus Chest abdomen pelvis CT: Large right hydropneumothorax. Consolidation in the right lung. Patchy infiltrate in the posterior segment left lower lobe. Extensive retained fecal debris. Atrophy of the pancreas. Stable adenoma/hyperplasia of the adrenal gland. Left kidney atrophic DJD changes of spine. Cardiomegaly Previous labs: Creatinine 0.8 on October 06, 2023 Assessment plan: -Severe sepsis. Source pneumonia, UTI. Rule out empyema: Not improving IV cefepime. Given IV vancomycin in the ER.-Because of renal function hold off. Urine culture-negative. Blood culture. -Right-sided large hydropneumothorax. With possible compression atelectasis On October 04 950 cc of dark bloody fluid from the right pleural space was aspirated by Dr. BLANC Pulmonary Dr. BLANC following -Lactic acidosis from sepsis -Pneumonia multilobar suspect gram-negative organism IV cefepime -Acute UTI with cystitis secondary to Davidson catheter IV cefepime -Acute delirium metabolic encephalopathy multifactorial: Slow to respond -Acute kidney injury combination of prerenal and ATN multifactorial Hold Aldactone. Cut back dose of Neurontin. IV fluids. -Hyperlipidemia Lipitor 80 mg nightly -Chronic congestive heart failure systolic dysfunction EF 40 to 45% Follow cardiovascular status. IV hydration. -Peripheral neuropathy Given kidney injury will cut back dose of Neurontin -Chronic bladder outflow obstruction/BPH Flomax 0.4 mg a day. 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 Follow Accu-Cheks -Full code IV cefepime. Change IV fluids to lactated Ringer's. Replace potassium. ID on the case. NG tube for medications 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 Date of last positivie culture/infection: 10/28/22 MDRO Source:: Blood Past Surgical History: Heart Catheterization Additional Past Surgical History / Comment(s): bilateral great toes amputated, 2nd toe lt foot partial amputation, multiple debridements of venous ulcers, colonoscopy, surgery as a child for undescended testicle., ABOVE THE KNEE AMPUTATION RIGHT LEG (JUNE 2017-[facility]) Past Anesthesia/Blood Transfusion Reactions: No Reported Reaction Date of Last Stent Placement:: 10/17/2022 Past Psychological History: Anxiety, Depression Smoking Status: Former smoker Past Alcohol Use History: Unable to Obtain Past Drug Use History: Unable to Obtain
[2023-11-11 20:20] LABS: Glucose,Whole Blood 166 mg/dL (70-110)
--- NOTE | 2023-11-11 21:25 | P.CONS ---
History of Present Illness - Reason for Consult Consult date: 11/11/23 Sepsis Requesting physician: Gerson Banks - Chief Complaint Mental status changes x 1 day - History of Present Illness Patient is a 73-year-old male with a past medical history significant for diabetes mellitus hypertension hyperlipidemia osteoarthritis did have history of diabetic foot infection and is status post bilateral [id number] amputation apparently the patient was treated in the outpatient setting for UTI and pneumonia and the patient was getting more confused and weak for the patient has been brought into the hospital apparently the patient confusion started over the weekend about 2 to 3 days before presentation to the hospital becoming more weak and the patient was running a fever no clear history of any headache nausea vomiting or any diarrhea he did have a chronic indwelling Davidson catheter that has been changed in the on presentation to the hospital the patient was febrile with a temperature of 101 F patient was tachycardic but not hypotensive or hypoxic patient did have a white count of 17.8 with a left shift BUN/creatinine has been mildly elevated patient did have a positive UA with large leukocyte Estrace more than 1-2 WBC urine testing was positive for opiates and benzo influenza RSV COVID testing was negative blood urine culture troponins are currently pending patient did have a chest x-ray small right effusion or el evated diaphragm with large bowel coursing over the liver and at the diaphragm patient did have a CT of the chest abdominal pelvis large right hydropneumothorax adjacent right lower lobe consolidation fecal impaction to the rectum patient was started on cefepime also received a dose of vancomycin in fectious he was consulted for further management of antibiotic therapy most information has been obtained from review the chart talking nursing staff as the patient could not provide any reliable history Review of Systems Positive points has been mentioned in HPI complete review could not be obtained because of his underlying mental status 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 Year Discovered:: 10/28/22 MDRO Source:: Blood Past Surgical History: Heart Catheterization Additional Past Surgical History / Comment(s): bilateral great toes amputated, 2nd toe lt foot partial amputation, multiple debridements of venous ulcers, colonoscopy, surgery as a child for undescended testicle., ABOVE THE KNEE AMPUTATION RIGHT LEG (JUNE 2017-[facility]) Past Anesthesia/Blood Transfusion Reactions: No Reported Reaction Date of Last Stent Placement:: 10/17/2022 Past Psychological History: Anxiety, Depression Additional Psychological History / Comment(s): . Smoking Status: Former smoker Past Alcohol Use History: Unable to Obtain Additional Past Alcohol Use History / Comment(s): no alcohol currently Past Drug Use History: Unable to Obtain - Past Family History Father Family Medical History: Cancer Additional Family Medical History / Comment(s): Father from brain cancer Mother Family Medical History: Eye Disorder Additional Family Medical History / Comment(s): Glaucoma. Mother is . Medications and Allergies Home Medications Medication Instructions Recorded Confirmed Type traZODone HCL 50 mg PO HS 11/09/17 11/10/23 History Famotidine [Pepcid] 20 mg PO BID 09/29/22 11/10/23 History Tamsulosin [Flomax] 0.4 mg PO DAILY 09/29/22 11/10/23 History Insulin Glargine,Hum.rec.anlog 20 units SQ BID 05/25/23 11/10/23 History [Lantus Solostar Pen] LORazepam [Ativan] 0.5 mg PO BID PRN 06/25/23 11/10/23 History Sodium Bicarbonate Tab 650 mg PO BID #60 tab 07/03/23 11/10/23 Rx Spironolactone [Aldactone] 25 mg PO DAILY 30 Days #30 tab 07/03/23 11/10/23 Rx amLODIPine [Norvasc] 10 mg PO DAILY #30 tab 07/03/23 11/10/23 Rx Clopidogrel [Plavix] 75 mg PO DAILY 10/02/23 11/10/23 History Glycopyrrolate 1 mg PO TID PRN 10/02/23 11/10/23 History HYDROcodone/APAP 7.5-325MG [[place] 1 tab PO Q6HR PRN 10/02/23 11/10/23 History 7.5-325] Sennosides [Senokot] 8.6 mg PO DAILY 10/02/23 11/10/23 History Acetaminophen Tab [Tylenol Tab] 500 mg PO Q6H PRN 11/10/23 11/10/23 History Atorvastatin Calcium [Lipitor] 80 mg PO HS 11/10/23 11/10/23 History Gabapentin [Neurontin] 300 mg PO BID 11/10/23 11/10/23 History Insulin Lispro [humaLOG Kwikpen] 2 - 20 unit SQ ACHS 11/10/23 11/10/23 History Magnesium Citrate [Citrate of 296 ml PO RING 11/10/23 11/10/23 History Magnesia] Nystatin 100,000 Unit/gm Powd 1 applic TOPICAL BID 11/10/23 11/10/23 History [Mycostatin Powder] Allergies Allergy/AdvReac Type Severity Reaction Status Date / Time No Known Allergies Allergy Verified 11/10/23 11:35 Physical Exam Vitals: Vital Signs Temp Pulse Resp BP Pulse Ox 11/11/23 08:00 77 18 171/70 96 11/11/23 05:42 61 20 152/71 100 11/11/23 04:44 64 16 158/69 100 11/11/23 01:58 56 L 19 163/53 100 11/11/23 01:00 60 20 152/63 98 11/10/23 22:00 61 15 146/63 97 11/10/23 21:19 56 L 20 144/63 99 11/10/23 20:00 56 L 23 154/63 100 11/10/23 18:32 60 18 153/69 99 11/10/23 18:00 67 21 148/62 99 11/10/23 17:50 59 L 18 148/62 99 11/10/23 16:36 55 L 18 166/70 98 11/10/23 16:00 67 11 L 164/77 97 11/10/23 14:00 79 14 164/77 99 11/10/23 13:49 100.0 F H 67 18 164/77 99 11/10/23 13:17 76 18 151/63 99 11/10/23 12:19 88 32 H 155/91 95 11/10/23 11:59 101.6 F H 90 16 155/91 95 11/10/23 11:24 89 18 132/70 97 Intake and Output 11/10/23 11/11/23 11/11/23 22:59 06:59 14:59 Output Total 975 Balance -975 Output: Urine 975 Other: Weight 60.781 kg GENERAL DESCRIPTION: Elderly male lying in bed, no distress. No tachypnea or accessory muscle of respiration use. HEENT: Shows Pallor , no scleral icterus. Oral mucous membrane is dry. NECK: Trachea central, no thyromegaly. LUNGS: Unlabored breathing. Coarse breath sounds bilaterally no wheeze or crac kle. HEART: S1, S2, regular rate and rhythm. No loud murmur ABDOMEN: Soft, no tenderness , guarding or rigidity, no organomegaly EXTREMITIES: Bilateral AKA stump healed with no drainage SKIN: Did have stage II sacral ulcer with mostly excoriation no significant slough tissue NEUROLOGICAL: The patient is lethargic orientation could not be determined Results CBC & Chem 7: 11/11/23 06:14 11/11/23 06:14 Labs: Abnormal Lab Results - Last 24 Hours (Table) 11/10/23 11/10/23 11/11/23 Range/Units 16:31 20:08 02:01 WBC (3.8-10.6) k/uL RBC (4.30-5.90) m/uL Hgb (13.0-17.5) gm/dL Hct (39.0-53.0) % MCHC (31.0-37.0) g/dL RDW (11.5-15.5) % Neutrophils # (1.3-7.7) k/uL Lymphocytes # (1.0-4.8) k/uL ABG pH 7.50 H (7.35-7.45) ABG pCO2 32 L (35-45) mmHg ABG pO2 124 H (83-108) mmHg ABG Total CO2 26 H (19-24) mmol/L ABG O2 Saturation 99.7 H (94-97) % Sodium (137-145) mmol/L Potassium (3.5-5.1) mmol/L Chloride (98-107) mmol/L BUN (9-20) mg/dL Creatinine (0.66-1.25) mg/dL Glucose (74-99) mg/dL POC Glucose (mg/dL) 282 H 138 H (70-110) mg/dL Calcium (8.4-10.2) mg/dL Total Protein (6.3-8.2) g/dL Albumin (3.5-5.0) g/dL 11/11/23 11/11/23 11/11/23 Range/Units 06:14 06:14 06:19 WBC 16.0 H (3.8-10.6) k/uL RBC 3.96 L (4.30-5.90) m/uL Hgb 10.2 L (13.0-17.5) gm/dL Hct 33.6 L (39.0-53.0) % MCHC 30.4 L (31.0-37.0) g/dL RDW 15.8 H (11.5-15.5) % Neutrophils # 14.3 H (1.3-7.7) k/uL Lymphocytes # 0.9 L (1.0-4.8) k/uL ABG pH (7.35-7.45) ABG pCO2 (35-45) mmHg ABG pO2 (83-108) mmHg ABG Total CO2 (19-24) mmol/L ABG O2 Saturation (94-97) % Sodium 149 H (137-145) mmol/L Potassium 2.5 L* (3.5-5.1) mmol/L Chloride 118 H (98-107) mmol/L BUN 44 H (9-20) mg/dL Creatinine 1.38 H (0.66-1.25) mg/dL Glucose 110 H (74-99) mg/dL POC Glucose (mg/dL) 113 H (70-110) mg/dL Calcium 8.1 L (8.4-10.2) mg/dL Total Protein 5.9 L (6.3-8.2) g/dL Albumin 2.7 L (3.5-5.0) g/dL Assessment and Plan (1) Sepsis Current Visit: Yes Status: Acute Code(s): A41.9 - SEPSIS, UNSPECIFIED ORGANISM SNOMED Code(s): 66738618 (2) Urinary tract infection Current Visit: Yes Status: Acute Code(s): N39.0 - URINARY TRACT INFECTION, SITE NOT SPECIFIED SNOMED Code(s): 76237647 (3) Pneumonia Current Visit: No Status: Acute Code(s): J18.9 - PNEUMONIA, UNSPECIFIED ORGANISM SNOMED Code(s): 843483798 Plan: 1patient was in the hospital with sepsis in this patient who did have fever tachycardia elevated white count source is likely combination of catheters has been tach infection and is concern for large hydropneumothorax and possible pneumonia questionable aspiration or gram-negative less likely gram-positive pathogen 2-at this point we will wait for the blood urine culture to finalize try to obtain a sputum for Gram stain and culture 3-with the patient persistent fever despite being on cefepime we will switch him to Zosyn and see clinical response we will follow on clinical condition and cultures to further adjust medication if needed Thank you for this consultation we will follow the patient along with you Dictation was produced using [employer] dictation software. please excuse any grammatical, word or spelling errors. Time with Patient: Greater than 30
[2023-11-11] MEDS: PIPERACILLIN-TAZOBACTAM 3.375 GM in SODIUM CHLORIDE 0.9% 100 ML IVPB SCH (21:38)
[2023-11-12 06:13] LABS: Anisocytosis Slight; Basophils % (A) 0 %; Eosinophils % (A) 0 %; HCT 31.9 % (39.0-53.0); HGB 9.8 gm/dL (13.0-17.5); Hypochromasia Marked; Lymphocytes # (A) 0.9 k/uL (1.0-4.8); Lymphocytes % (A) 7 %; MCH 25.7 pg (25.0-35.0); MCHC 30.6 g/dL (31.0-37.0); MCV 84.2 fL (80.0-100.0); Mean Platelet Volume 8.2; Monocytes # (A) 0.6 k/uL (0-1.0); Monocytes % (A) 5 %; Neutrophils # (A) 11.3 k/uL (1.3-7.7); Neutrophils % (A) 88 %; Platelet Count 305 k/uL (150-450); RBC 3.79 m/uL (4.30-5.90); WBC 12.9 k/uL (3.8-10.6)
[2023-11-12 06:17] LABS: Glucose,Whole Blood 122 mg/dL (70-110)
[2023-11-12 07:46] LABS: African American GFR (CKD) 64 (>60 ml/min/1.73 sqM); Anion Gap 9 mmol/L; Blood Urea Nitrogen 40 mg/dL (9-20); Calcium 8.4 mg/dL (8.4-10.2); Carbon Dioxide 19 mmol/L (22-30); Chloride 123 mmol/L (98-107); Glucose 115 mg/dL (74-99); Non-African American GFR(CKD) 55 (>60 ml/min/1.73 sqM); Sodium 151 mmol/L (137-145)
[2023-11-12] MEDS ORDERED: Potassium Replacement Protocol 1 EACH MISC MISCELLANE PRN (08:05)
[2023-11-12] MEDS: POTASSIUM CHLORIDE ER 20 MEQ TAB.ER PO SCH (09:21)
[2023-11-12 11:16] LABS: Glucose,Whole Blood 166 mg/dL (70-110)
--- NOTE | 2023-11-12 12:25 | P.PN ---
Subjective Progress Note Date: 11/12/23 Principal diagnosis: Hydropneumothorax. Patient is a 73-year-old male with multiple complex comorbidities including diabetes mellitus, hypertension, hyperlipidemia, coronary disease with previous PCI/stenting, chronic indwelling Davidson catheter, bilateral AKA, decubitus pressure ulcer, and recurrent right-sided pleural effusion. He has had previous right-sided thoracentesis May,. Fluid was cytologically negative for malignancy at this time. Also, during a recent hospitalization to September,. He was noted to have a large right-sided pleural effusion, underwent right-sided thoracentesis on 10/05/2023, draining approximately 950 mL of bloody fluid. Not sent for cytology this occasion. Patient did develop a hydropneumothorax postoperatively. Concerns for trapped lung. He was also treated for a urinary tract infection this admission. Isolated organisms were E. coli and Enterobacter cloacae. He was treated with IV antibiotics. He was ultimately discharged home with home care. Never followed up in the pulmonary office. He returns to the emergency department yesterday morning. He is lethargic and a poor historian. Oriented to self only. Most of this information is taken from chart review. He is febrile, there are concerns for recurrent urinary tract infection. Reportedly has a chronic indwelling urinary catheter with recurrent urinary tract infections. CT of the chest/abdomen/pelvis without contrast shows a large right-sided hydropneumothorax, adjacent right lower lobe consolidation could be related to compressive atelectasis. Underlying neoplasm or infectious etiology was not entirely excluded. There was patchy somewhat nodular grou ndglass changes in the left lower lobe, favoring infectious per inflammatory process. Incidental fecal impaction noted. He was recently treated for possible left lower lobe pneumonia on his previous admission. Does not appear to be any respiratory distress at the moment. On room air. SpO2 reading 92%. No tachypnea or accessory muscle use.. Blood pressure 146/63, heart rate 70 bpm, febrile with a Tmax of 101.6 F. CBC: WBC count 17.8, hemoglobin 11.7, hematocrit 37.3, platelets 471. CMP: Sodium 146, potassium 3.3, chloride 110, serum bicarb 23, BUN 48, creatinine 1.78, glucose 326. Lactic 2.5 and down to 1.3. LFTs unremarkable. Urinalysis positive for leukocyte esterase and few bacteria. Urine toxicology screen positive for opiates and benzodiazepines. CT of the brain without contrast negative for any intracranial hemorrhage or mass effect. There was moderate to severe ventricular dilation of the greater central component. Normal pressure hydrocephalus or hydrocephalus was considered. Negative for influenza, RSV, COVID. Empirically covered on a combination of cefepime and vancomycin. No immediate signs of hemodynamic compromise. Chest tube was not inserted in the emergency department. Progress note dated November 12, 2023. The patient is seen today in room 373. His daughter was at the bedside. She provided most of the history. The patient is currently on room air. Saturations are 98%. The patient is on lactated Ringer's at 100 cc an hour. The patient is receiving Zosyn IV piggyback. Current labs include a white count 12.9, hemoglobin 9.8, hematocrit 31.9, and a normal platelet count. Sodium 151, potassium 3, chlorides 123, CO2 19, BUN 40, creatinine 1.3. Glucose is 166. Calcium is 8.4. Blood cultures are positive. Cultures are positive for gram- positive cocci in clusters. Objective - Vital Signs Vital signs: Vital Signs Temp 97.8 F 11/12/23 08:00 Pulse 87 11/12/23 08:00 Resp 18 11/12/23 08:00 BP 174/94 11/12/23 08:00 Pulse Ox 98 11/12/23 08:00 FiO2 Intake & Output 11/11/23 11/12/23 11/12/23 18:59 06:59 18:59 Intake Total 1260 0 Output Total 975 1000 Balance -975 260 0 Weight 85 kg Intake: Intake, IV Titration 900 Amount Lactated Ringers 1,000 ml 800 @ 100 mls/hr IV .Q10H [facility]HU Rx#:[id number] Piperacillin-Tazobactam 3 100 .375 gm In Sodium Chloride 0.9% 100 ml @ 25 mls/hr IVPB Q8H [facility]HU Rx#: [id number] Oral 360 0 Output: Urine 975 1000 Other: Voiding Method Indwelling Catheter Indwelling Catheter Indwelling Catheter - Exam No acute distress, confused, somewhat disoriented. HEENT examination is grossly unremarkable. Mucous membranes are moist. No oral lesions. Neck supple. Full range of motion. No adenopathy thyromegaly or neck vein distention. Cardiovascular examination reveals regular rhythm rate. S1-S2 normal. No S3 or S4. No discernible murmur noted. Lungs reveal scattered bilateral rhonchi. No wheezes or crackles. Breath sounds equal. Abdomen soft bowel sounds are heard. No masses or tenderness. Extremities are intact. No cyanosis clubbing or edema. Skin is without rash or lesion. Neurologic examination is difficult to evaluate. - Labs CBC & Chem 7: 11/12/23 05:04 11/12/23 05:04 Labs: Abnormal Lab Results - Last 24 Hours (Table) 11/11/23 11/12/23 11/12/23 Range/Units 20:16 05:04 05:04 WBC 12.9 H (3.8-10.6) k/uL RBC 3.79 L (4.30-5.90) m/uL Hgb 9.8 L (13.0-17.5) gm/dL Hct 31.9 L (39.0-53.0) % MCHC 30.6 L (31.0-37.0) g/dL RDW 16.0 H (11.5-15.5) % Neutrophils # 11.3 H (1.3-7.7) k/uL Lymphocytes # 0.9 L (1.0-4.8) k/uL Sodium 151 H (137-145) mmol/L Potassium 3.0 L (3.5-5.1) mmol/L Chloride 123 H (98-107) mmol/L Carbon Dioxide 19 L (22-30) mmol/L BUN 40 H (9-20) mg/dL Creatinine 1.30 H (0.66-1.25) mg/dL Glucose 115 H (74-99) mg/dL POC Glucose (mg/dL) 166 H (70-110) mg/dL 11/12/23 11/12/23 Range/Units 06:13 11:14 WBC (3.8-10.6) k/uL RBC (4.30-5.90) m/uL Hgb (13.0-17.5) gm/dL Hct (39.0-53.0) % MCHC (31.0-37.0) g/dL RDW (11.5-15.5) % Neutrophils # (1.3-7.7) k/uL Lymphocytes # (1.0-4.8) k/uL Sodium (137-145) mmol/L Potassium (3.5-5.1) mmol/L Chloride (98-107) mmol/L Carbon Dioxide (22-30) mmol/L BUN (9-20) mg/dL Creatinine (0.66-1.25) mg/dL Glucose (74-99) mg/dL POC Glucose (mg/dL) 122 H 166 H (70-110) mg/dL Microbiology - Last 24 Hours (Table) 11/10/23 09:29 Blood Culture Gram Stain - Preliminary Blood Blood Culture - Preliminary Molecular ID 11/10/23 09:29 Urine Culture - Final Urine,Voided Assessment and Plan Assessment: Persistent large right-sided hydropneumothorax. Possible left lower lobe pneumonia. Possible urinary tract infection. Altered mental status, concerns for metabolic encephalopathy and sepsis. Acute febrile illness. AMY. Severe constipation/fecal impaction. Chronic systolic congestive heart failure, with a ejection fraction of 40 to 45%. Bilateral AKA. Chronic decubitus pressure ulcer. History of diabetes mellitus. History of hypertension. History of hyperlipidemia. History of coronary artery disease with multiple previous PCI/stenting. History of gastroesophageal reflux disease. Plan: Plan dated November 12, 2023. 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 The patient is not having any respiratory compromise, or respiratory symptoms, and his saturations are in the high 90s, on room air. No additional treatment for this hydropneumothorax at this time. Labs, x-rays, medications are reviewed. We will continue to follow make recommendations along the way. I did speak to the patient's daughter today. Time with Patient: Less than 30
--- NOTE | 2023-11-12 15:13 | P.PN ---
Subjective Progress Note Date: 11/12/23 Principal diagnosis: Reason for follow up with UTI sacral pressure ulcer possible pneumonia Patient is a 73-year-old male with a past medical history significant for diabetes mellitus hypertension hyperlipidemia osteoarthritis did have history of diabetic foot infection and is status post bilateral [id number] amputation, patient has been brought to the hospital concerning for increasing confusion fever failing outpatient treatment for pneumonia and UTI. On today's evaluation that is 11/12/2023, patient did have improvement in his fever pattern with a low-grade fever 100.1 degree forehead at noon patient remains to be sleepy lethargic unable provide any history but is currently on room air no vomiting diarrhea related changes reported by nursing staff. Patient white count is down to 12.9, platelets 1.30 blood culture with coagulase-negative staph urine cultures pending Objective - Vital Signs Vital signs: Vital Signs Temp 100.1 F H 11/12/23 12:00 Pulse 67 11/12/23 12:00 Resp 18 11/12/23 12:00 BP 161/77 11/12/23 12:00 Pulse Ox 99 11/12/23 12:00 FiO2 Intake & Output 11/11/23 11/12/23 11/12/23 18:59 06:59 18:59 Intake Total 1260 0 Output Total 975 1000 350 Balance -975 260 -350 Weight 85 kg Intake: Intake, IV Titration 900 Amount Lactated Ringers 1,000 ml 800 @ 125 mls/hr IV .Q8H SIND[facility] Rx#:[id number] Piperacillin-Tazobactam 3 100 .375 gm In Sodium Chloride 0.9% 100 ml @ 25 mls/hr IVPB Q8H SIND[facility] Rx#: [id number] Oral 360 0 Output: Urine 975 1000 350 Other: Voiding Method Indwelling Catheter Indwelling Catheter Indwelling Catheter - Exam GENERAL DESCRIPTION: An elderly male lying in bed in no distress RESPIRATORY SYSTEM: Unlabored breathing , coarse breath sounds at bases HEART: S1 S2 regular rate and rhythm , ABDOMEN: Soft , no tenderness EXTREMITIES: Bilateral BKA stump with no swelling or redness - Labs CBC & Chem 7: 11/12/23 05:04 11/12/23 05:04 Labs: Abnormal Lab Results - Last 24 Hours (Table) 11/11/23 11/12/23 11/12/23 Range/Units 20:16 05:04 05:04 WBC 12.9 H (3.8-10.6) k/uL RBC 3.79 L (4.30-5.90) m/uL Hgb 9.8 L (13.0-17.5) gm/dL Hct 31.9 L (39.0-53.0) % MCHC 30.6 L (31.0-37.0) g/dL RDW 16.0 H (11.5-15.5) % Neutrophils # 11.3 H (1.3-7.7) k/uL Lymphocytes # 0.9 L (1.0-4.8) k/uL Sodium 151 H (137-145) mmol/L Potassium 3.0 L (3.5-5.1) mmol/L Chloride 123 H (98-107) mmol/L Carbon Dioxide 19 L (22-30) mmol/L BUN 40 H (9-20) mg/dL Creatinine 1.30 H (0.66-1.25) mg/dL Glucose 115 H (74-99) mg/dL POC Glucose (mg/dL) 166 H (70-110) mg/dL 11/12/23 11/12/23 Range/Units 06:13 11:14 WBC (3.8-10.6) k/uL RBC (4.30-5.90) m/uL Hgb (13.0-17.5) gm/dL Hct (39.0-53.0) % MCHC (31.0-37.0) g/dL RDW (11.5-15.5) % Neutrophils # (1.3-7.7) k/uL Lymphocytes # (1.0-4.8) k/uL Sodium (137-145) mmol/L Potassium (3.5-5.1) mmol/L Chloride (98-107) mmol/L Carbon Dioxide (22-30) mmol/L BUN (9-20) mg/dL Creatinine (0.66-1.25) mg/dL Glucose (74-99) mg/dL POC Glucose (mg/dL) 122 H 166 H (70-110) mg/dL Microbiology - Last 24 Hours (Table) 11/10/23 09:29 Blood Culture Gram Stain - Preliminary Blood Blood Culture - Preliminary Molecular ID Assessment and Plan (1) Sepsis Current Visit: Yes Status: Acute Code(s): A41.9 - SEPSIS, UNSPECIFIED ORGANISM SNOMED Code(s): 83526243 (2) Urinary tract infection Current Visit: Yes Status: Acute Code(s): N39.0 - URINARY TRACT INFECTION, SITE NOT SPECIFIED SNOMED Code(s): 46184944 (3) Pneumonia Current Visit: No Status: Acute Code(s): J18.9 - PNEUMONIA, UNSPECIFIED ORGANISM SNOMED Code(s): 499585351 Plan: 1patient was in the hospital with sepsis in this patient who did have fever tachycardia elevated white count source is likely combination of catheters has been tach infection and is concern for large hydropneumothorax and possible pneumonia questionable aspiration or gram-negative less likely gram-positive pathogen 2-positive blood culture with coagulase-negative staph possible ischemic evaluat ion 3-patient did have improvement in his fever pattern and white count is trending down continue with Zosyn and monitor clinical course closely Dictation was produced using [employer] dictation software. please excuse any grammatical, word or spelling errors.
[2023-11-12 16:05] LABS: Glucose,Whole Blood 117 mg/dL (70-110)
--- NOTE | 2023-11-12 16:55 | P.PN ---
Progress Note - Text Progress Note Date: 11/12/23 Chief Complaint: Altered mentation This is a 73-year-old patient, follows with visiting physicians Dr. Rene. Chronic stable medical conditions include diabetes, GERD, hypertension, hyperlipidemia, chronic venous stasis wounds. Arthritis. Neuropathy. Bilateral above-knee amputation. CHF EF 40 to 45%, dementia, home oxygen 2 L chronic Davidson catheter. Patient is taking care of by his daughter. Per the EMS report 70 9 PM patient became unresponsive. From his normal alert self. She tried sternal rubs with no real success. Patient had not had a bowel movement for 16 days. Per PCP magnesium citrate was ordered. Also for last several days poor oral intake. Had a recent pneumonia and a UTI. Temperature recorded was 101. Was found to be rather unkempt and fall ordered by the EMS. They gave IV fluids. EKG showed sinus tachycardia. In the ER patient somewhat delirious. Really cannot give any history. No family at the bedside. On October 04 950 cc of dark bloody fluid from the right pleural space was taken out by Dr. BLANC. ER physician called Dr. BLANC from pulmonary regarding the large right hydropneumothorax. Present time nothing further was to be done. November 10: Patient was seen in the ER earlier today. On IV cefepime. A bit more awake. Though still delirious. Dry oral cavity. Oral tolerate ordered. NG tube for medications. Some improvement in renal function. Febrile November 11: Patient still delirious but doing a bit better. . Able to take his medications. Oral hygiene was done yesterday. Diet is being changed to pured. No fever since yesterday evening. Continue IV Zosyn. Sodium up to 151. Increase IV fluids. Attempted to speak. Active Medications Acetaminophen (Acetaminophen Tab 325 Mg Tab) 650 mg PO Q6HR PRN PRN Reason: Mild Pain or Fever > 100.5 Last Admin: 11/11/23 14:02 Dose: 650 mg Amlodipine Besylate (Amlodipine 10 Mg Tab) 10 mg PO DAILY [facility] Last Admin: 11/12/23 09:21 Dose: 10 mg Clopidogrel Bisulfate (Clopidogrel 75 Mg Tab) 75 mg PO DAILY [facility] Last Admin: 11/12/23 09:21 Dose: 75 mg Dextrose/Water (Dextrose 50% Syringe 50 Ml) 25 ml IVP PER PROTOCOL PRN; Protocol PRN Reason: Hypoglycemia Dextrose/Water (Dextrose 50% Syringe 50 Ml) 50 ml IVP PER PROTOCOL PRN; Protocol PRN Reason: Hypoglycemia Enoxaparin Sodium (Enoxaparin 40 Mg/0.4 Ml Syringe) 40 mg SQ DAILY [facility] Last Admin: 11/12/23 09:21 Dose: 40 mg Lactated Ringer's (Lactated Ringers) 1,000 mls @ 125 mls/hr IV .Q8H [facility] Last Admin: 11/12/23 12:35 Dose: Not Given Piperacillin Sod/Tazobactam (Sod 3.375 gm/ Sodium Chloride) 100 mls @ 25 mls/hr IVPB Q8H [facility]; Protocol Last Admin: 11/12/23 13:12 Dose: 25 mls/hr Insulin Aspart (Insulin Aspart (Novolog) 100 Unit/Ml Vial) 0 unit SQ AC-TID [facility]; Protocol Last Admin: 11/12/23 13:12 Dose: 2 unit Insulin Detemir (Insulin Detemir (Levemir) 100 Unit/Ml Syr) 20 unit SQ HS [facility] Last Admin: 11/11/23 21:38 Dose: 20 unit Magnesium Citrate (Magnesium Citrate 296 Ml Bottle) 296 ml PO RING [facility] Miscellaneous Information (Potassium Replacement Protocol 1 Each Misc) 1 each MISCELLANE DAILY PRN; Protocol PRN Reason: Per Protocol Miscellaneous Information (Potassium Replacement Protocol 1 Each Misc) 1 each MISCELLANE DAILY PRN; Protocol PRN Reason: Per Protocol Multi-Ingredient Ointment (Zinc Oxide 20% Oint 28.4 Gm Tube) 1 applic TOPICAL BID PRN; Protocol PRN Reason: Wound Healing Naloxone HCl (Naloxone 0.4 Mg/Ml 1 Ml Vial) 0.2 mg IV Q2M PRN PRN Reason: Opioid Reversal Ondansetron HCl (Ondansetron 4 Mg/2 Ml Vial) 4 mg IVP Q8HR PRN PRN Reason: Nausea And Vomiting Tamsulosin HCl (Tamsulosin 0.4 Mg Cap.Er.24h) 0.4 mg PO DAILY [facility] Last Admin: 11/12/23 09:21 Dose: 0.4 mg Social history: Former smoker. Cared for by his daughter. Physical examination: VITAL SIGNS: 100.1, 67, 18, 161 x 77, 99% room air GENERAL: Laying in bed. Still delirious but a bit better. EYES: [Pupils equal. Conjunctiva pale HEENT: External appearance of nose and ears normal, oral cavity less dry mucous membrane. NECK: JVD not raised; masses not palpable. HEART: First and second heart sounds are normal; no edema. LUNGS: Respiratory rate increased; decreased breath sounds. ABDOMEN: Soft, nontender, liver spleen not palpable, no masses palpable. Davidson catheter PSYCH: Still delirious but a bit better MUSCULOSKELETAL:No Clubbing/cyanosis;muscles-grossly intact. Lower back decubitus wound pictures in the chart NEUROLOGICAL: [Cranial nerves grossly intact; no facial asymmetry, moving all 4 limbs INVESTIGATIONS, reviewed in the clinical context: November 11: White count 12.9 hemoglobin 9.8 platelets 305 sodium 151 potassium 3 BUN 40 creatinine 1.3 Urine culture: Negative November 10: White count 16 hemoglobin 10.2 platelets 339 sodium 149 potassium 2.5 BUN 44 creatinine 1.38 November 10, 2023: White count 7.8 hemoglobin 11.7 platelets 471 sodium 146 potassium 3.3 BUN 48 creatinine 1.78 lactic acid 2.5 UA positive for leukoesterase, WBC 111 nitrite positive [place] Urine drug screen: Positive for opiates benzodiazepine Influenza type A, type B, RSV, COVID-19: Not detected EKG tracing personally reviewed by me-intraventricular block. Ectopic atrial focus Chest abdomen pelvis CT: Large right hydropneumothorax. Consolidation in the right lung. Patchy infiltrate in the posterior segment left lower lobe. Extensive retained fecal debris. Atrophy of the pancreas. Stable adenoma/hyperplasia of the adrenal gland. Left kidney atrophic DJD changes of spine. Cardiomegaly Previous labs: Creatinine 0.8 on October 06, 2023 Assessment plan: -Severe sepsis. Source pneumonia, UTI. Rule out empyema: Slow to respond IV Zosyn. Given IV vancomycin in the ER.-Because of renal function hold off. Urine culture-negative. Blood [id number] cocci in clusters. -Right-sided large hydropneumothorax. With possible trapped lung On October 04 950 cc of dark bloody fluid from the right pleural space was aspirated by Dr. BLANC Pulmonary Dr. BLANC following -Hypernatremia from free water deficit Increase IV fluids -Lactic acidosis from sepsis -Pneumonia multilobar suspect gram-negative organism IV Zosyn -Acute UTI with cystitis secondary to Davidson catheter IV Zosyn -Acute delirium metabolic encephalopathy multifactorial: Slow to respond -Acute kidney injury combination of prerenal and ATN multifactorial Hold Aldactone. Cut back dose of Neurontin. IV fluids. -Hyperlipidemia Lipitor 80 mg nightly -Chronic congestive heart failure systolic dysfunction EF 40 to 45% Follow cardiovascular status. IV hydration. -Peripheral neuropathy Given kidney injury will cut back dose of Neurontin -Chronic bladder outflow obstruction/BPH Flomax 0.4 mg a day. 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 Follow Accu-Cheks -Full code IV Zosyn. IV fluids. Pured diet. Supervised. Updated patient's daughter on the phone. She understands prognosis guarded. She takes care of him. 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 Date of last positivie culture/infection: 10/28/22 MDRO Source:: Blood Past Surgical History: Heart Catheterization Additional Past Surgical History / Comment(s): bilateral great toes amputated, 2nd toe lt foot partial amputation, multiple debridements of venous ulcers, colonoscopy, surgery as a child for undescended testicle., ABOVE THE KNEE AMPUTATION RIGHT LEG (JUNE 2017-[facility]) Past Anesthesia/Blood Transfusion Reactions: No Reported Reaction Date of Last Stent Placement:: 10/17/2022 Past Psychological History: Anxiety, Depression Smoking Status: Former smoker Past Alcohol Use History: Unable to Obtain Past Drug Use History: Unable to Obtain
[2023-11-12] MEDS: HYDROcodone/APAP 7.5-325MG 1 EACH TAB PO PRN (17:43)
[2023-11-12] MEDS: SENNOSIDES 8.6 MG TAB PO SCH (17:43)
[2023-11-12] MEDS: POTASSIUM CHLORIDE ER 20 MEQ TAB.ER PO STA (19:02)
[2023-11-12] MEDS: SODIUM BICARBONATE TAB 650 MG TAB PO SCH (19:57)
[2023-11-12] MEDS: traZODone HCL 50 MG TAB PO SCH (19:57)
[2023-11-12] MEDS: ATORVASTATIN 80 MG TAB PO SCH (19:57)
[2023-11-12] MEDS: GABAPENTIN 300 MG CAP PO SCH (19:57)
[2023-11-12] MEDS: NYSTATIN 100,000 UNIT/GM POWD 15 GM TOPICAL SCH (20:05)
[2023-11-12 20:11] LABS: Glucose,Whole Blood 169 mg/dL (70-110)
[2023-11-13 06:08] LABS: Glucose,Whole Blood 62 mg/dL (70-110)
[2023-11-13] MEDS: INSULIN ASPART (NovoLOG) 100 UNIT/ML VIAL SQ SCH (06:08)
[2023-11-13] MEDS: DEXTROSE 50% SYRINGE 50 ML IVP PRN (06:10)
[2023-11-13 10:26] LABS: Anisocytosis Slight; Basophils % (A) 0 %; Eosinophils % (A) 0 %; HCT 31.9 % (39.0-53.0); HGB 9.4 gm/dL (13.0-17.5); Hypochromasia Marked; Lymphocytes % (A) 7 %; MCH 25.2 pg (25.0-35.0); MCHC 29.5 g/dL (31.0-37.0); MCV 85.6 fL (80.0-100.0); Mean Platelet Volume 8.1; Monocytes # (A) 0.7 k/uL (0-1.0); Monocytes % (A) 4 %; Neutrophils # (A) 13.6 k/uL (1.3-7.7); Neutrophils % (A) 87 %; Platelet Count 323 k/uL (150-450); RBC 3.73 m/uL (4.30-5.90); RDW 16.1 % (11.5-15.5); WBC 15.6 k/uL (3.8-10.6)
[2023-11-13 10:33] LABS: African American GFR (CKD) 63 (>60 ml/min/1.73 sqM); Anion Gap 7 mmol/L; Blood Urea Nitrogen 42 mg/dL (9-20); Calcium 8.6 mg/dL (8.4-10.2); Carbon Dioxide 22 mmol/L (22-30); Chloride 129 mmol/L (98-107); Glucose 55 mg/dL (74-99); Non-African American GFR(CKD) 55 (>60 ml/min/1.73 sqM); Sodium 158 mmol/L (137-145)
[2023-11-13 11:37] LABS: Glucose,Whole Blood 70 mg/dL (70-110)
--- NOTE | 2023-11-13 12:21 | P.PN ---
Subjective Progress Note Date: 11/13/23 Principal diagnosis: Reason for follow up with UTI sacral pressure ulcer possible pneumonia Patient is a 73-year-old male with a past medical history significant for diabetes mellitus hypertension hyperlipidemia osteoarthritis did have history of diabetic foot infection and is status post bilateral [id number] amputation, patient has been brought to the hospital concerning for increasing confusion fever failing outpatient treatment for pneumonia and UTI. On today's evaluation that is 11/13/2023, Patient is afebrile this morning patient is slightly more awake alert today compared to last 2 days he is currently on room air denies any chest pain no vomiting diarrhea or any changes reported by the nursing staff. Patient white count slightly up to 15.6 today, creatinine is 1.31 urine reported negative for culture with coagulase-negative staph Objective - Vital Signs Vital signs: Vital Signs Temp 97.6 F 11/13/23 08:10 Pulse 68 11/13/23 08:10 Resp 18 11/13/23 08:10 BP 178/82 11/13/23 08:10 Pulse Ox 98 11/13/23 08:10 FiO2 Intake & Output 11/12/23 11/13/23 11/13/23 18:59 06:59 18:59 Intake Total 0 0 118 Output Total 350 600 225 Balance -350 -600 -107 Weight 86.5 kg Intake: Oral 0 0 118 Output: Urine 350 600 225 Other: Voiding Method Indwelling Catheter Indwelling Catheter Indwelling Catheter - Exam GENERAL DESCRIPTION: An elderly male lying in bed in no distress RESPIRATORY SYSTEM: Unlabored breathing , coarse breath sounds at bases HEART: S1 S2 regular rate and rhythm , ABDOMEN: Soft , no tenderness EXTREMITIES: Bilateral BKA stump with no swelling or redness - Labs CBC & Chem 7: 11/13/23 09:32 11/13/23 09:32 Labs: Abnormal Lab Results - Last 24 Hours (Table) 11/12/23 11/12/23 11/13/23 Range/Units 16:04 20:10 06:07 WBC (3.8-10.6) k/uL RBC (4.30-5.90) m/uL Hgb (13.0-17.5) gm/dL Hct (39.0-53.0) % MCHC (31.0-37.0) g/dL RDW (11.5-15.5) % Neutrophils # (1.3-7.7) k/uL Sodium (137-145) mmol/L Potassium (3.5-5.1) mmol/L Chloride (98-107) mmol/L BUN (9-20) mg/dL Creatinine (0.66-1.25) mg/dL Glucose (74-99) mg/dL POC Glucose (mg/dL) 117 H 169 H 62 L (70-110) mg/dL 11/13/23 11/13/23 Range/Units 09:32 09:32 WBC 15.6 H (3.8-10.6) k/uL RBC 3.73 L (4.30-5.90) m/uL Hgb 9.4 L (13.0-17.5) gm/dL Hct 31.9 L (39.0-53.0) % MCHC 29.5 L (31.0-37.0) g/dL RDW 16.1 H (11.5-15.5) % Neutrophils # 13.6 H (1.3-7.7) k/uL Sodium 158 H (137-145) mmol/L Potassium 3.0 L (3.5-5.1) mmol/L Chloride 129 H (98-107) mmol/L BUN 42 H (9-20) mg/dL Creatinine 1.31 H (0.66-1.25) mg/dL Glucose 55 L (74-99) mg/dL POC Glucose (mg/dL) (70-110) mg/dL Microbiology - Last 24 Hours (Table) 11/10/23 09:29 Blood Culture Gram Stain - Preliminary Blood Blood Culture - Preliminary Molecular ID Assessment and Plan (1) Sepsis Current Visit: Yes Status: Acute Code(s): A41.9 - SEPSIS, UNSPECIFIED ORGANISM SNOMED Code(s): 43353992 (2) Urinary tract infection Current Visit: Yes Status: Acute Code(s): N39.0 - URINARY TRACT INFECTION, SITE NOT SPECIFIED SNOMED Code(s): 85717169 (3) Pneumonia Current Visit: No Status: Acute Code(s): J18.9 - PNEUMONIA, UNSPECIFIED ORGANISM SNOMED Code(s): 505828381 Plan: 1patient was in the hospital with sepsis in this patient who did have fever tachycardia elevated white count source is likely combination of catheters has been tach infection and is concern for large hydropneumothorax and possible pneumonia questionable aspiration or gram-negative less likely gram-positive pathogen 2-positive blood culture with coagulase-negative staph possible contamination 3-patient did have improvement in his fever pattern and white count is still up initially and culture reported negative he did have significant yeast on the UA we will repeat a UA also add Diflucan and see clinical response Dictation was produced using [employer] dictation software. please excuse any grammatical, word or spelling errors. Time with Patient: Less than 30
[2023-11-13] MEDS: DEXTROSE 5% IN WATER 1,000 ML IV SCH (12:58)
[2023-11-13] MEDS: POTASSIUM BICARBONATE/CIT AC 20 MEQ TABLET.EFF PO ONE (13:01)
[2023-11-13] MEDS: FLUCONAZOLE 100 MG TAB PO SCH (13:01)
[2023-11-13 13:27] LABS: Appearance,Urine Turbid (Clear); Bacteria,Urine Rare /hpf; Bilirubin,Urine Negative (Negative); Blood,Urine Moderate (Negative); Budding Yeast,Urine Many /hpf; Color,Urine Light Yellow; Glucose,Urine (UA) Negative (Negative); Hyphae Yeast, Urine Occasional /hpf; Ketones,Urine Negative (Negative); Leukocyte Esterase,Urine Large (Negative); Mucus,Urine Rare /hpf; Nitrite,Urine Negative (Negative); Protein,Urine 2+ (Negative); RBC,Urine 67 /hpf (0-5); Specific Gravity,Urine 1.024 (1.001-1.035); Squamous Epithelial Cell,Urine <1 /hpf (0-4); Uric Acid Crystals,Urine Few /hpf; Urobilinogen,Urine <2.0 mg/dL (<2.0); WBC,Urine 71 /hpf (0-5)
--- NOTE | 2023-11-13 13:46 | P.PN ---
Subjective Progress Note Date: 11/13/23 Principal diagnosis: Hydropneumothorax. Patient is a 73-year-old male with multiple complex comorbidities including diabetes mellitus, hypertension, hyperlipidemia, coronary disease with previous PCI/stenting, chronic indwelling Davidson catheter, bilateral AKA, decubitus pressure ulcer, and recurrent right-sided pleural effusion. He has had previous right-sided thoracentesis May,. Fluid was cytologically negative for malignancy at this time. Also, during a recent hospitalization to September,. He was noted to have a large right-sided pleural effusion, underwent right-sided thoracentesis on 10/05/2023, draining approximately 950 mL of bloody fluid. Not sent for cytology this occasion. Patient did develop a hydropneumothorax postoperatively. Concerns for trapped lung. He was also treated for a urinary tract infection this admission. Isolated organisms were E. coli and Enterobacter cloacae. He was treated with IV antibiotics. He was ultimately discharged home with home care. Never followed up in the pulmonary office. He returns to the emergency department yesterday morning. He is lethargic and a poor historian. Oriented to self only. Most of this information is taken from chart review. He is febrile, there are concerns for recurrent urinary tract infection. Reportedly has a chronic indwelling urinary catheter with recurrent urinary tract infections. CT of the chest/abdomen/pelvis without contrast shows a large right-sided hydropneumothorax, adjacent right lower lobe consolidation could be related to compressive atelectasis. Underlying neoplasm or infectious etiology was not entirely excluded. There was patchy somewhat nodular grou ndglass changes in the left lower lobe, favoring infectious per inflammatory process. Incidental fecal impaction noted. He was recently treated for possible left lower lobe pneumonia on his previous admission. Does not appear to be any respiratory distress at the moment. On room air. SpO2 reading 92%. No tachypnea or accessory muscle use.. Blood pressure 146/63, heart rate 70 bpm, febrile with a Tmax of 101.6 F. CBC: WBC count 17.8, hemoglobin 11.7, hematocrit 37.3, platelets 471. CMP: Sodium 146, potassium 3.3, chloride 110, serum bicarb 23, BUN 48, creatinine 1.78, glucose 326. Lactic 2.5 and down to 1.3. LFTs unremarkable. Urinalysis positive for leukocyte esterase and few bacteria. Urine toxicology screen positive for opiates and benzodiazepines. CT of the brain without contrast negative for any intracranial hemorrhage or mass effect. There was moderate to severe ventricular dilation of the greater central component. Normal pressure hydrocephalus or hydrocephalus was considered. Negative for influenza, RSV, COVID. Empirically covered on a combination of cefepime and vancomycin. No immediate signs of hemodynamic compromise. Chest tube was not inserted in the emergency department. Progress note dated November 12, 2023. The patient is seen today in room 373. His daughter was at the bedside. She provided most of the history. The patient is currently on room air. Saturations are 98%. The patient is on lactated Ringer's at 100 cc an hour. The patient is receiving Zosyn IV piggyback. Current labs include a white count 12.9, hemoglobin 9.8, hematocrit 31.9, and a normal platelet count. Sodium 151, potassium 3, chlorides 123, CO2 19, BUN 40, creatinine 1.3. Glucose is 166. Calcium is 8.4. Blood cultures are positive. Cultures are positive for gram- positive cocci in clusters. Progress note dated November 13, 2023. 73-year-old male seen today in room 373. The patient is currently on room air. No respiratory issues. No IV fluids. The patient denies all pulmonary issues. We were consulted because of the persistent right-sided hydropneumothorax. Again, the patient is not having any respiratory issues whatsoever. Current labs include a white count 15.6, hemoglobin 9.4, hematocrit 31.9, and platelet count 323,000. Sodium is 158, potassium 3, chlorides 129, CO2 22, BUN 42, creatinine 1.31. Blood cultures are positive for gram-positive cocci in clusters. Objective - Vital Signs Vital signs: Vital Signs Temp 97.6 F 11/13/23 08:10 Pulse 68 11/13/23 08:10 Resp 18 11/13/23 08:10 BP 178/82 11/13/23 08:10 Pulse Ox 98 11/13/23 08:10 FiO2 Intake & Output 11/12/23 11/13/23 11/13/23 18:59 06:59 18:59 Intake Total 0 0 118 Output Total 350 600 225 Balance -350 -600 -107 Weight 86.5 kg Intake: Oral 0 0 118 Output: Urine 350 600 225 Other: Voiding Method Indwelling Catheter Indwelling Catheter Indwelling Catheter - Exam No acute distress, confused, somewhat disoriented. HEENT examination is grossly unremarkable. Mucous membranes are moist. No oral lesions. Neck supple. Full range of motion. No adenopathy thyromegaly or neck vein distention. Cardiovascular examination reveals regular rhythm rate. S1-S2 normal. No S3 or S4. No discernible murmur noted. Lungs reveal scattered bilateral rhonchi. No wheezes or crackles. Breath so unds equal. Abdomen soft bowel sounds are heard. No masses or tenderness. Extremities are intact. No cyanosis clubbing or edema. Patient is a bilateral amputee. Skin is without rash or lesion. Neurologic examination is difficult to evaluate. - Labs CBC & Chem 7: 11/13/23 09:11/13/23 09:32 Labs: Abnormal Lab Results - Last 24 Hours (Table) 11/12/23 11/12/23 11/13/23 Range/Units 16:04 20:10 06:07 WBC (3.8-10.6) k/uL RBC (4.30-5.90) m/uL Hgb (13.0-17.5) gm/dL Hct (39.0-53.0) % MCHC (31.0-37.0) g/dL RDW (11.5-15.5) % Neutrophils # (1.3-7.7) k/uL Sodium (137-145) mmol/L Potassium (3.5-5.1) mmol/L Chloride (98-107) mmol/L BUN (9-20) mg/dL Creatinine (0.66-1.25) mg/dL Glucose (74-99) mg/dL POC Glucose (mg/dL) 117 H 169 H 62 L (70-110) mg/dL Urine Protein (Negative) Urine Blood (Negative) Ur Leukocyte Esterase (Negative) Urine RBC (0-5) /hpf Urine WBC (0-5) /hpf Uric Acid Crystals (None) /hpf Urine Bacteria (None) /hpf Urine Mucus (None) /hpf Urine Yeast (Budding) (None) /hpf 11/13/23 11/13/23 11/13/23 Range/Units 09:32 09:32 12:25 WBC 15.6 H (3.8-10.6) k/uL RBC 3.73 L (4.30-5.90) m/uL Hgb 9.4 L (13.0-17.5) gm/dL Hct 31.9 L (39.0-53.0) % MCHC 29.5 L (31.0-37.0) g/dL RDW 16.1 H (11.5-15.5) % Neutrophils # 13.6 H (1.3-7.7) k/uL Sodium 158 H (137-145) mmol/L Potassium 3.0 L (3.5-5.1) mmol/L Chloride 129 H (98-107) mmol/L BUN 42 H (9-20) mg/dL Creatinine 1.31 H (0.66-1.25) mg/dL Glucose 55 L (74-99) mg/dL POC Glucose (mg/dL) (70-110) mg/dL Urine Protein 2+ H (Negative) Urine Blood Moderate H (Negative) Ur Leukocyte Esterase Large H (Negative) Urine RBC 67 H (0-5) /hpf Urine WBC 71 H (0-5) /hpf Uric Acid Crystals Few H (None) /hpf Urine Bacteria Rare H (None) /hpf Urine Mucus Rare H (None) /hpf Urine Yeast (Budding) Many H (None) /hpf Microbiology - Last 24 Hours (Table) 11/10/23 09:29 Blood Culture Gram Stain - Preliminary Blood Blood Culture - Preliminary Molecular ID Assessment and Plan Assessment: Persistent large right-sided hydropneumothorax. Possible left lower lobe pneumonia. Blood cultures positive for gram-positive cocci in clusters. Hypernatremia. Possible urinary tract infection. Altered mental status, concerns for metabolic encephalopathy and sepsis. Acute febrile illness. AMY. Severe constipation/fecal impaction. Chronic systolic congestive heart failure, with a ejection fraction of 40 to 45%. Bilateral AKA. Chronic decubitus pressure ulcer. History of diabetes mellitus. History of hypertension. History of hyperlipidemia. History of coronary artery disease with multiple previous PCI/stenting. History of gastroesophageal reflux disease. Plan: Plan dated November 12, 2023. 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 The patient is not having any respiratory compromise, or respiratory symptoms, and his saturations are in the high 90s, on room air. No additional treatment for this hydropneumothorax at this time. Labs, x-rays, medications are reviewed. We will continue to follow make recommendations along the way. I did speak to the patient's daughter today. Plan dated November 13, 2023. The patient needs to be placed on D5W, at 100 to 125 cc an hour, for the developing hypernatremia. In addition, blood cultures were positive for gram- positive cocci in clusters. The patient should receive vancomycin until the organism has been identified. Will leave this up to the primary service. From the pulmonary standpoint, the patient is stable. He is on room air. The persistent right-sided pneumothorax, needs no treatment at this time. Time with Patient: Less than 30
[2023-11-13 16:21] LABS: Glucose,Whole Blood 124 mg/dL (70-110)
--- NOTE | 2023-11-13 16:24 | P.PN ---
Progress Note - Text Progress Note Date: 11/13/23 Chief Complaint: Altered mentation This is a 73-year-old patient, follows with visiting physicians Dr. Rene. Chronic stable medical conditions include diabetes, GERD, hypertension, hyperlipidemia, chronic venous stasis wounds. Arthritis. Neuropathy. Bilateral above-knee amputation. CHF EF 40 to 45%, dementia, home oxygen 2 L chronic Davidson catheter. Patient is taking care of by his daughter. Per the EMS report 70 9 PM patient became unresponsive. From his normal alert self. She tried sternal rubs with no real success. Patient had not had a bowel movement for 16 days. Per PCP magnesium citrate was ordered. Also for last several days poor oral intake. Had a recent pneumonia and a UTI. Temperature recorded was 101. Was found to be rather unkempt and fall ordered by the EMS. They gave IV fluids. EKG showed sinus tachycardia. In the ER patient somewhat delirious. Really cannot give any history. No family at the bedside. On October 04 950 cc of dark bloody fluid from the right pleural space was taken out by Dr. BLANC. ER physician called Dr. BLANC from pulmonary regarding the large right hydropneumothorax. Present time nothing further was to be done. November 10: Patient was seen in the ER earlier today. On IV cefepime. A bit more awake. Though still delirious. Dry oral cavity. Oral tolerate ordered. NG tube for medications. Some improvement in renal function. Febrile November 11: Patient still delirious but doing a bit better. . Able to take his medications. Oral hygiene was done yesterday. Diet is being changed to pured. No fever since yesterday evening. Continue IV Zosyn. Sodium up to 151. Increase IV fluids. Attempted to speak. November 12: Patient remained lethargic. Delirious. Sodium is gone to 158. Blood glucose low. Decreased oral intake. Will change IV fluids to D5W at 150 cc an hour. On IV Zosyn. No further fever. Active Medications Acetaminophen (Acetaminophen Tab 325 Mg Tab) 650 mg PO Q6HR PRN PRN Reason: Mild Pain or Fever > 100.5 Last Admin: 11/11/23 14:02 Dose: 650 mg Hydrocodone Bitart/Acetaminophen (Hydrocodone/Apap 7.5-325mg 1 Each Tab) 1 each PO Q6HR PRN PRN Reason: Pain Last Admin: 11/13/23 13:00 Dose: 1 each Amlodipine Besylate (Amlodipine 10 Mg Tab) 10 mg PO DAILY COUNTS INCLUDE 234 BEDS AT THE [facility] Last Admin: 11/13/23 09:46 Dose: 10 mg Atorvastatin Calcium (Atorvastatin 80 Mg Tab) 80 mg PO HS COUNTS INCLUDE 234 BEDS AT THE [facility] Last Admin: 11/12/23 19:57 Dose: 80 mg Clopidogrel Bisulfate (Clopidogrel 75 Mg Tab) 75 mg PO DAILY COUNTS INCLUDE 234 BEDS AT THE [facility] Last Admin: 11/13/23 09:46 Dose: 75 mg Dextrose/Water (Dextrose 50% Syringe 50 Ml) 25 ml IVP PER PROTOCOL PRN; Protocol PRN Reason: Hypoglycemia Last Admin: 11/13/23 06:10 Dose: 25 ml Dextrose/Water (Dextrose 50% Syringe 50 Ml) 50 ml IVP PER PROTOCOL PRN; Protocol PRN Reason: Hypoglycemia Enoxaparin Sodium (Enoxaparin 40 Mg/0.4 Ml Syringe) 40 mg SQ DAILY COUNTS INCLUDE 234 BEDS AT THE [facility] Last Admin: 11/13/23 09:46 Dose: 40 mg Fluconazole (Fluconazole 100 Mg Tab) 100 mg PO DAILY COUNTS INCLUDE 234 BEDS AT THE [facility]; Protocol Last Admin: 11/13/23 13:01 Dose: 100 mg Gabapentin (Gabapentin 300 Mg Cap) 300 mg PO BID COUNTS INCLUDE 234 BEDS AT THE [facility] Last Admin: 11/13/23 09:46 Dose: 300 mg Piperacillin Sod/Tazobactam (Sod 3.375 gm/ Sodium Chloride) 100 mls @ 25 mls/hr IVPB Q8H COUNTS INCLUDE 234 BEDS AT THE [facility]; Protocol Last Admin: 11/13/23 15:52 Dose: 25 mls/hr Dextrose/Water (Dextrose 5%-Water Iv Soln) 1,000 mls @ 150 mls/hr IV .Q6H40M COUNTS INCLUDE 234 BEDS AT THE [facility] Last Admin: 11/13/23 12:58 Dose: 150 mls/hr Insulin Aspart (Insulin Aspart (Novolog) 100 Unit/Ml Vial) 0 unit SQ AC-TID COUNTS INCLUDE 234 BEDS AT THE [facility]; Protocol Last Admin: 11/13/23 12:57 Dose: Not Given Insulin Detemir (Insulin Detemir (Levemir) 100 Unit/Ml Syr) 20 unit SQ HS COUNTS INCLUDE 234 BEDS AT THE [facility] Last Admin: 11/12/23 20:41 Dose: 20 unit Magnesium Citrate (Magnesium Citrate 296 Ml Bottle) 296 ml PO RING COUNTS INCLUDE 234 BEDS AT THE [facility] Miscellaneous Information (Potassium Replacement Protocol 1 Each Misc) 1 each MISCELLANE DAILY PRN; Protocol PRN Reason: Per Protocol Miscellaneous Information (Potassium Replacement Protocol 1 Each Misc) 1 each MISCELLANE DAILY PRN; Protocol PRN Reason: Per Protocol Multi-Ingredient Ointment (Zinc Oxide 20% Oint 28.4 Gm Tube) 1 applic TOPICAL BID PRN; Protocol PRN Reason: Wound Healing Naloxone HCl (Naloxone 0.4 Mg/Ml 1 Ml Vial) 0.2 mg IV Q2M PRN PRN Reason: Opioid Reversal Nystatin (Nystatin 100,000 Unit/Gm Powd 15 Gm) 1 applic TOPICAL BID SINDHU; Protocol Last Admin: 11/13/23 09:48 Dose: 1 applic Ondansetron HCl (Ondansetron 4 Mg/2 Ml Vial) 4 mg IVP Q8HR PRN PRN Reason: Nausea And Vomiting Senna (Sennosides 8.6 Mg Tab) 8.6 mg PO DAILY COUNTS INCLUDE 234 BEDS AT THE [facility] Last Admin: 11/13/23 09:46 Dose: 8.6 mg Sodium Bicarbonate (Sodium Bicarbonate Tab 650 Mg Tab) 650 mg PO BID COUNTS INCLUDE 234 BEDS AT THE [facility] Last Admin: 11/13/23 09:46 Dose: 650 mg Tamsulosin HCl (Tamsulosin 0.4 Mg Cap.Er.24h) 0.4 mg PO DAILY COUNTS INCLUDE 234 BEDS AT THE [facility] Last Admin: 11/13/23 09:46 Dose: 0.4 mg Trazodone HCl (Trazodone Hcl 50 Mg Tab) 50 mg PO HS COUNTS INCLUDE 234 BEDS AT THE [facility] Last Admin: 11/12/23 19:57 Dose: 50 mg Social history: Former smoker. Cared for by his daughter. Physical examination: VITAL SIGNS: 97.6, 71, 18, 167 x 85, 98% room air GENERAL: Laying in bed. Delirious EYES: [Pupils equal. Conjunctiva pale HEENT: External appearance of nose and ears normal, oral cavity less dry mucous membrane. NECK: JVD not raised; masses not palpable. HEART: First and second heart sounds are normal; no edema. LUNGS: Respiratory rate increased; decreased breath sounds. ABDOMEN: Soft, nontender, liver spleen not palpable, no masses palpable. Davidson catheter PSYCH: T delirious MUSCULOSKELETAL:No Clubbing/cyanosis;muscles-grossly intact. Lower back decubitus wound pictures in the chart NEUROLOGICAL: [Cranial nerves grossly intact; no facial asymmetry, moving all 4 limbs INVESTIGATIONS, reviewed in the clinical context: November 12: White count 15.6 hemoglobin 9.4 platelets 323 sodium 158 potassium 3 BUN 42 creatinine 1.31 glucose 55 November 11: White count 12.9 hemoglobin 9.8 platelets 305 sodium 151 potassium 3 BUN 40 creatinine 1.3 Urine culture: Negative November 10: White count 16 hemoglobin 10.2 platelets 339 sodium 149 potassium 2.5 BUN 44 creatinine 1.38 November 10, 2023: White count 7.8 hemoglobin 11.7 platelets 471 sodium 146 potassium 3.3 BUN 48 creatinine 1.78 lactic acid 2.5 UA positive for leukoesterase, WBC 111 nitrite positive [place] Urine drug screen: Positive for opiates benzodiazepine Influenza type A, type B, RSV, COVID-19: Not detected EKG tracing personally reviewed by me-intraventricular block. Ectopic atrial focus Chest abdomen pelvis CT: Large right hydropneumothorax. Consolidation in the right lung. Patchy infiltrate in the posterior segment left lower lobe. Extensive retained fecal debris. Atrophy of the pancreas. Stable adenoma/hyperplasia of the adrenal gland. Left kidney atrophic DJD changes of spine. Cardiomegaly Previous labs: Creatinine 0.8 on October 06, 2023 Assessment plan: -Severe sepsis. Source pneumonia, UTI. Rule out empyema: Slow to respond IV Zosyn. Given IV vancomycin in the ER.-Because of renal function hold off. Urine culture-negative. Blood [id number] cocci in clusters. -Right-sided large hydropneumothorax. With possible trapped lung On October 04 950 cc of dark bloody fluid from the right pleural space was aspirated by Dr. BLANC Pulmonary Dr. BLANC following -Hypernatremia from free water deficit: Worsening Increase/change IV fluids to D5W at 150 cc an hour -Lactic acidosis from sepsis -Pneumonia multilobar suspect gram-negative organism IV Zosyn -Acute UTI with cystitis secondary to Davidson catheter IV Zosyn -Acute delirium metabolic encephalopathy multifactorial: Not improving -Acute kidney injury combination of prerenal and ATN multifactorial: Slow to respond Hold Aldactone. Cut back dose of Neurontin. IV fluids. -Hyperlipidemia Lipitor 80 mg nightly -Chronic congestive heart failure systolic dysfunction EF 40 to 45% Follow cardiovascular status. IV hydration. -Peripheral neuropathy Given kidney injury will cut back dose of Neurontin -Chronic bladder outflow obstruction/BPH Flomax 0.4 mg a day. 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 Follow Accu-Cheks -Full code IV Zosyn. Change IV fluids to D5W. Follow labs closely. Antibiotics to cont inue. 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 Date of last positivie culture/infection: 10/28/22 MDRO Source:: Blood Past Surgical History: Heart Catheterization Additional Past Surgical History / Comment(s): bilateral great toes amputated, 2nd toe lt foot partial amputation, multiple debridements of venous ulcers, colonoscopy, surgery as a child for undescended testicle., ABOVE THE KNEE AMPUTATION RIGHT LEG (JUNE 2017-[facility]) Past Anesthesia/Blood Transfusion Reactions: No Reported Reaction Date of Last Stent Placement:: 10/17/2022 Past Psychological History: Anxiety, Depression Smoking Status: Former smoker Past Alcohol Use History: Unable to Obtain Past Drug Use History: Unable to Obtain
[2023-11-13 20:09] LABS: Glucose,Whole Blood 146 mg/dL (70-110)
[2023-11-14 06:18] LABS: Glucose,Whole Blood 277 mg/dL (70-110)
[2023-11-14 10:00] LABS: African American GFR (CKD) 76 (>60 ml/min/1.73 sqM); Anion Gap 5 mmol/L; Blood Urea Nitrogen 36 mg/dL (9-20); Calcium 7.5 mg/dL (8.4-10.2); Carbon Dioxide 21 mmol/L (22-30); Chloride 120 mmol/L (98-107); Glucose 211 mg/dL (74-99); Non-African American GFR(CKD) 66 (>60 ml/min/1.73 sqM); Potassium 3.3 mmol/L (3.5-5.1); Sodium 146 mmol/L (137-145)
[2023-11-14 10:16] LABS: Anisocytosis Slight; Basophils % (A) 0 %; Eosinophils # (A) 0.2 k/uL (0-0.7); Eosinophils % (A) 1 %; HCT 28.9 % (39.0-53.0); HGB 8.7 gm/dL (13.0-17.5); Hypochromasia Marked; Lymphocytes # (A) 0.7 k/uL (1.0-4.8); Lymphocytes % (A) 5 %; MCH 26.6 pg (25.0-35.0); MCHC 30.2 g/dL (31.0-37.0); MCV 88.1 fL (80.0-100.0); Mean Platelet Volume 9.4; Monocytes # (A) 1.1 k/uL (0-1.0); Monocytes % (A) 8 %; Neutrophils # (A) 10.7 k/uL (1.3-7.7); Neutrophils % (A) 83 %; Platelet Count 222 k/uL (150-450); RBC 3.28 m/uL (4.30-5.90); RDW 16.1 % (11.5-15.5)
--- NOTE | 2023-11-14 11:26 | P.PN ---
Subjective Progress Note Date: 11/14/23 Principal diagnosis: Hydropneumothorax. Patient is a 73-year-old male with multiple complex comorbidities including diabetes mellitus, hypertension, hyperlipidemia, coronary disease with previous PCI/stenting, chronic indwelling Davidson catheter, bilateral AKA, decubitus pressure ulcer, and recurrent right-sided pleural effusion. He has had previous right-sided thoracentesis May,. Fluid was cytologically negative for malignancy at this time. Also, during a recent hospitalization to September,. He was noted to have a large right-sided pleural effusion, underwent right-sided thoracentesis on 10/05/2023, draining approximately 950 mL of bloody fluid. Not sent for cytology this occasion. Patient did develop a hydropneumothorax postoperatively. Concerns for trapped lung. He was also treated for a urinary tract infection this admission. Isolated organisms were E. coli and Enterobacter cloacae. He was treated with IV antibiotics. He was ultimately discharged home with home care. Never followed up in the pulmonary office. He returns to the emergency department yesterday morning. He is lethargic and a poor historian. Oriented to self only. Most of this information is taken from chart review. He is febrile, there are concerns for recurrent urinary tract infection. Reportedly has a chronic indwelling urinary catheter with recurrent urinary tract infections. CT of the chest/abdomen/pelvis without contrast shows a large right-sided hydropneumothorax, adjacent right lower lobe consolidation could be related to compressive atelectasis. Underlying neoplasm or infectious etiology was not entirely excluded. There was patchy somewhat nodular grou ndglass changes in the left lower lobe, favoring infectious per inflammatory process. Incidental fecal impaction noted. He was recently treated for possible left lower lobe pneumonia on his previous admission. Does not appear to be any respiratory distress at the moment. On room air. SpO2 reading 92%. No tachypnea or accessory muscle use.. Blood pressure 146/63, heart rate 70 bpm, febrile with a Tmax of 101.6 F. CBC: WBC count 17.8, hemoglobin 11.7, hematocrit 37.3, platelets 471. CMP: Sodium 146, potassium 3.3, chloride 110, serum bicarb 23, BUN 48, creatinine 1.78, glucose 326. Lactic 2.5 and down to 1.3. LFTs unremarkable. Urinalysis positive for leukocyte esterase and few bacteria. Urine toxicology screen positive for opiates and benzodiazepines. CT of the brain without contrast negative for any intracranial hemorrhage or mass effect. There was moderate to severe ventricular dilation of the greater central component. Normal pressure hydrocephalus or hydrocephalus was considered. Negative for influenza, RSV, COVID. Empirically covered on a combination of cefepime and vancomycin. No immediate signs of hemodynamic compromise. Chest tube was not inserted in the emergency department. Progress note dated November 12, 2023. The patient is seen today in room 373. His daughter was at the bedside. She provided most of the history. The patient is currently on room air. Saturations are 98%. The patient is on lactated Ringer's at 100 cc an hour. The patient is receiving Zosyn IV piggyback. Current labs include a white count 12.9, hemoglobin 9.8, hematocrit 31.9, and a normal platelet count. Sodium 151, potassium 3, chlorides 123, CO2 19, BUN 40, creatinine 1.3. Glucose is 166. Calcium is 8.4. Blood cultures are positive. Cultures are positive for gram- positive cocci in clusters. Progress note dated November 13, 2023. 73-year-old male seen today in room 373. The patient is currently on room air. No respiratory issues. No IV fluids. The patient denies all pulmonary issues. We were consulted because of the persistent right-sided hydropneumothorax. Again, the patient is not having any respiratory issues whatsoever. Current labs include a white count 15.6, hemoglobin 9.4, hematocrit 31.9, and platelet count 323,000. Sodium is 158, potassium 3, chlorides 129, CO2 22, BUN 42, creatinine 1.31. Blood cultures are positive for gram-positive cocci in clusters. Progress note dated November 14, 2023. 73-year-old male seen today in room 373. Patient is currently on room air. He is getting D5W at 150 cc an hour. His procalcitonin level is 0.2. He continues on Zosyn. Blood cultures were apparently positive for gram-positive cocci in clusters. Patient is without any respiratory difficulty or distress. White count 13, hemoglobin 8.7, hematocrit 28.9, platelet count 222,000. Sodium is down to 146. Potassium 3.3, chlorides 120, CO2 21, BUN 36, creatinine 1.12. Glucose is 277. Calcium was 7.5. Objective - Vital Signs Vital signs: Vital Signs Temp 99.2 F 11/14/23 09:10 Pulse 55 L 11/14/23 09:10 Resp 16 11/14/23 09:10 BP 143/54 11/14/23 09:10 Pulse Ox 98 11/14/23 09:10 FiO2 Intake & Output 11/13/23 11/14/23 11/14/23 18:59 06:59 18:59 Intake Total 118 240 118 Output Total 225 600 Balance -107 -360 118 Weight 85.5 kg Intake: Oral 118 240 118 Output: Urine 225 600 Other: Voiding Method Indwelling Catheter Indwelling Catheter Indwelling Catheter - Exam No acute distress, confused, somewhat disoriented. Currently on room air. HEENT examination is grossly unremarkable. Mucous membranes are moist. No oral lesions. Neck supple. Full range of motion. No adenopathy thyromegaly or neck vein distention. Cardiovascular examination reveals regular rhythm rate. S1-S2 normal. No S3 or S4. No discernible murmur noted. Lungs reveal scattered bilateral rhonchi. No wheezes or crackles. Breath sounds equal. Abdomen soft bowel sounds are heard. No masses or tenderness. Extremities are intact. No cyanosis clubbing or edema. Patient is a bilateral amputee. Skin is without rash or lesion. Neurologic examination is difficult to evaluate. - Labs CBC & Chem 7: 11/14/23 08:04 11/14/23 08:04 Labs: Abnormal Lab Results - Last 24 Hours (Table) 11/13/23 11/13/23 11/13/23 Range/Units 12:25 16:19 20:07 WBC (3.8-10.6) k/uL RBC (4.30-5.90) m/uL Hgb (13.0-17.5) gm/dL Hct (39.0-53.0) % MCHC (31.0-37.0) g/dL RDW (11.5-15.5) % Neutrophils # (1.3-7.7) k/uL Lymphocytes # (1.0-4.8) k/uL Monocytes # (0-1.0) k/uL Sodium (137-145) mmol/L Potassium (3.5-5.1) mmol/L Chloride (98-107) mmol/L Carbon Dioxide (22-30) mmol/L BUN (9-20) mg/dL Glucose (74-99) mg/dL POC Glucose (mg/dL) 124 H 146 H (70-110) mg/dL Calcium (8.4-10.2) mg/dL Urine Protein 2+ H (Negative) Urine Blood Moderate H (Negative) Ur Leukocyte Esterase Large H (Negative) Urine RBC 67 H (0-5) /hpf Urine WBC 71 H (0-5) /hpf Uric Acid Crystals Few H (None) /hpf Urine Bacteria Rare H (None) /hpf Urine Mucus Rare H (None) /hpf Urine Yeast (Budding) Many H (None) /hpf 11/14/23 11/14/23 11/14/23 Range/Units 06:16 08:04 08:04 WBC 13.0 H (3.8-10.6) k/uL RBC 3.28 L (4.30-5.90) m/uL Hgb 8.7 L (13.0-17.5) gm/dL Hct 28.9 L (39.0-53.0) % MCHC 30.2 L (31.0-37.0) g/dL RDW 16.1 H (11.5-15.5) % Neutrophils # 10.7 H (1.3-7.7) k/uL Lymphocytes # 0.7 L (1.0-4.8) k/uL Monocytes # 1.1 H (0-1.0) k/uL Sodium 146 H (137-145) mmol/L Potassium 3.3 L (3.5-5.1) mmol/L Chloride 120 H (98-107) mmol/L Carbon Dioxide 21 L (22-30) mmol/L BUN 36 H (9-20) mg/dL Glucose 211 H (74-99) mg/dL POC Glucose (mg/dL) 277 H (70-110) mg/dL Calcium 7.5 L (8.4-10.2) mg/dL Urine Protein (Negative) Urine Blood (Negative) Ur Leukocyte Esterase (Negative) Urine RBC (0-5) /hpf Urine WBC (0-5) /hpf Uric Acid Crystals (None) /hpf Urine Bacteria (None) /hpf Urine Mucus (None) /hpf Urine Yeast (Budding) (None) /hpf Microbiology - Last 24 Hours (Table) 11/10/23 09:29 Blood Culture Gram Stain - Final Blood Blood Culture - Final Staph hominis sub sp. hominis Molecular ID Assessment and Plan Assessment: Persistent large right-sided hydropneumothorax. Possible left lower lobe pneumonia. Blood cultures positive for gram-positive cocci in clusters. Hypernatremia. Possible urinary tract infection. Altered mental status, concerns for metabolic encephalopathy and sepsis. Acute febrile illness. AMY. Severe constipation/fecal impaction. Chronic systolic congestive heart failure, with a ejection fraction of 40 to 45%. Bilateral AKA. Chronic decubitus pressure ulcer. History of diabetes mellitus. History of hypertension. History of hyperlipidemia. History of coronary artery disease with multiple previous PCI/stenting. History of gastroesophageal reflux disease. Plan: Plan dated November 12, 2023. 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 The patient is not having any respiratory compromise, or respiratory symptoms, and his saturations are in the high 90s, on room air. No additional treatment for this hydropneumothorax at this time. Labs, x-rays, medications are reviewed. We will continue to follow make recommendations along the way. I did speak to the patient's daughter today. Plan dated November 13, 2023. The patient needs to be placed on D5W, at 100 to 125 cc an hour, for the developing hypernatremia. In addition, blood cultures were positive for gram- positive cocci in clusters. The patient should receive vancomycin until the organism has been identified. Will leave this up to the primary service. From the pulmonary standpoint, the patient is stable. He is on room air. The persistent right-sided pneumothorax, needs no treatment at this time. Plan dated November 14, 2023. The patient was placed on D5W, for his hypernatremia. His sodium is improving. His procalcitonin level was only 0.2. He remains on Zosyn. The patient is not having any respiratory issues or compromise. He is on room air. Labs, x-rays, and all medications are reviewed. The patient will be seen moving forward, only as needed. Nothing to do about the chronic hydropneumothorax on the right side. Time with Patient: Less than 30
[2023-11-14 11:42] LABS: Glucose,Whole Blood 258 mg/dL (70-110)
[2023-11-14] MEDS: DEXTROSE 5%-0.45% NACL 1,000 ML IV SCH (12:54)
--- NOTE | 2023-11-14 15:36 | P.PN ---
Progress Note - Text Progress Note Date: 11/14/23 Chief Complaint: Altered mentation This is a 73-year-old patient, follows with visiting physicians Dr. Rene. Chronic stable medical conditions include diabetes, GERD, hypertension, hyperlipidemia, chronic venous stasis wounds. Arthritis. Neuropathy. Bilateral above-knee amputation. CHF EF 40 to 45%, dementia, home oxygen 2 L chronic Davidson catheter. Patient is taking care of by his daughter. Per the EMS report 70 9 PM patient became unresponsive. From his normal alert self. She tried sternal rubs with no real success. Patient had not had a bowel movement for 16 days. Per PCP magnesium citrate was ordered. Also for last several days poor oral intake. Had a recent pneumonia and a UTI. Temperature recorded was 101. Was found to be rather unkempt and fall ordered by the EMS. They gave IV fluids. EKG showed sinus tachycardia. In the ER patient somewhat delirious. Really cannot give any history. No family at the bedside. On October 04 950 cc of dark bloody fluid from the right pleural space was taken out by Dr. BLANC. ER physician called Dr. BLANC from pulmonary regarding the large right hydropneumothorax. Present time nothing further was to be done. November 10: Patient was seen in the ER earlier today. On IV cefepime. A bit more awake. Though still delirious. Dry oral cavity. Oral tolerate ordered. NG tube for medications. Some improvement in renal function. Febrile November 11: Patient still delirious but doing a bit better. . Able to take his medications. Oral hygiene was done yesterday. Diet is being changed to pured. No fever since yesterday evening. Continue IV Zosyn. Sodium up to 151. Increase IV fluids. Attempted to speak. November 12: Patient remained lethargic. Delirious. Sodium is gone to 158. Blood glucose low. Decreased oral intake. Will change IV fluids to D5W at 150 cc an hour. On IV Zosyn. No further fever. November 13: Doing better. Sodium has come down. Accu-Cheks are better running high. Change IV fluids to D5.45. Cut back IV fluid rate. Throat secretions. For deep suctioning. Tolerating pured diet. Active Medications Acetaminophen (Acetaminophen Tab 325 Mg Tab) 650 mg PO Q6HR PRN PRN Reason: Mild Pain or Fever > 100.5 Last Admin: 11/11/23 14:02 Dose: 650 mg Hydrocodone Bitart/Acetaminophen (Hydrocodone/Apap 7.5-325mg 1 Each Tab) 1 each PO Q6HR PRN PRN Reason: Pain Last Admin: 11/14/23 12:01 Dose: 1 each Amlodipine Besylate (Amlodipine 10 Mg Tab) 10 mg PO DAILY [facility] Last Admin: 11/14/23 09:11 Dose: 10 mg Atorvastatin Calcium (Atorvastatin 80 Mg Tab) 80 mg PO HS [facility] Last Admin: 11/13/23 19:49 Dose: 80 mg Clopidogrel Bisulfate (Clopidogrel 75 Mg Tab) 75 mg PO DAILY [facility] Last Admin: 11/14/23 09:11 Dose: 75 mg Dextrose/Water (Dextrose 50% Syringe 50 Ml) 25 ml IVP PER PROTOCOL PRN; Protocol PRN Reason: Hypoglycemia Last Admin: 11/13/23 06:10 Dose: 25 ml Dextrose/Water (Dextrose 50% Syringe 50 Ml) 50 ml IVP PER PROTOCOL PRN; Protocol PRN Reason: Hypoglycemia Enoxaparin Sodium (Enoxaparin 40 Mg/0.4 Ml Syringe) 40 mg SQ DAILY [facility] Last Admin: 11/14/23 09:11 Dose: 40 mg Fluconazole (Fluconazole 100 Mg Tab) 100 mg PO DAILY [facility]; Protocol Last Admin: 11/14/23 09:11 Dose: 100 mg Gabapentin (Gabapentin 300 Mg Cap) 300 mg PO BID [facility] Last Admin: 11/14/23 09:11 Dose: 300 mg Piperacillin Sod/Tazobactam (Sod 3.375 gm/ Sodium Chloride) 100 mls @ 25 mls/hr IVPB Q8H [facility]; Protocol Last Admin: 11/14/23 13:00 Dose: 25 mls/hr Dextrose/Sodium Chloride (Dextrose 5%-1/2ns Iv Soln) 1,000 mls @ 75 mls/hr IV .[id number] [facility] Last Admin: 11/14/23 12:54 Dose: 75 mls/hr Insulin Aspart (Insulin Aspart (Novolog) 100 Unit/Ml Vial) 0 unit SQ AC-TID [facility]; Protocol Last Admin: 11/14/23 12:02 Dose: 6 unit Insulin Detemir (Insulin Detemir (Levemir) 100 Unit/Ml Syr) 20 unit SQ HS [facility] Last Admin: 11/13/23 20:13 Dose: Not Given Magnesium Citrate (Magnesium Citrate 296 Ml Bottle) 296 ml PO [facility] Miscellaneous Information (Potassium Replacement Protocol 1 Each Misc) 1 each MISCELLANE DAILY PRN; Protocol PRN Reason: Per Protocol Miscellaneous Information (Potassium Replacement Protocol 1 Each Misc) 1 each MISCELLANE DAILY PRN; Protocol PRN Reason: Per Protocol Multi-Ingredient Ointment (Zinc Oxide 20% Oint 28.4 Gm Tube) 1 applic TOPICAL BID PRN; Protocol PRN Reason: Wound Healing Naloxone HCl (Naloxone 0.4 Mg/Ml 1 Ml Vial) 0.2 mg IV Q2M PRN PRN Reason: Opioid Reversal Nystatin (Nystatin 100,000 Unit/Gm Powd 15 Gm) 1 applic TOPICAL BID [facility]; Protocol Last Admin: 11/14/23 09:11 Dose: 1 applic Ondansetron HCl (Ondansetron 4 Mg/2 Ml Vial) 4 mg IVP Q8HR PRN PRN Reason: Nausea And Vomiting Senna (Sennosides 8.6 Mg Tab) 8.6 mg PO DAILY [facility] Last Admin: 11/14/23 09:11 Dose: 8.6 mg Sodium Bicarbonate (Sodium Bicarbonate Tab 650 Mg Tab) 650 mg PO BID [facility] Last Admin: 11/14/23 12:55 Dose: 650 mg Tamsulosin HCl (Tamsulosin 0.4 Mg Cap.Er.24h) 0.4 mg PO DAILY [facility] Last Admin: 11/14/23 09:11 Dose: 0.4 mg Trazodone HCl (Trazodone Hcl 50 Mg Tab) 50 mg PO HS [facility] Last Admin: 11/13/23 19:49 Dose: 50 mg Social history: Former smoker. Cared for by his daughter. Physical examination: VITAL SIGNS: 39.2, 60, 16, 157 x 80, 97% room air GENERAL: Laying in bed. Bit more awake. EYES: [Pupils equal. Conjunctiva pale HEENT: External appearance of nose and ears normal, oral cavity less dry mucous membrane. NECK: JVD not raised; masses not palpable. HEART: First and second heart sounds are normal; no edema. LUNGS: Respiratory rate increased; decreased breath sounds. ABDOMEN: Soft, nontender, liver spleen not palpable, no masses palpable. Davidson catheter PSYCH: Less delirious MUSCULOSKELETAL:No Clubbing/cyanosis;muscles-grossly intact. Lower back decubitus wound pictures in the chart NEUROLOGICAL: [Cranial nerves grossly intact; no facial asymmetry, moving all 4 limbs. Tolerating pured diet INVESTIGATIONS, reviewed in the clinical context: November 13: White count 13 hemoglobin 8.7 sodium 146 potassium 3.3 BUN 36 creatinine 1.12 November 12: White count 15.6 hemoglobin 9.4 platelets 323 sodium 158 potassium 3 BUN 42 creatinine 1.31 glucose 55 November 11: White count 12.9 hemoglobin 9.8 platelets 305 sodium 151 potassium 3 BUN 40 creatinine 1.3 Urine culture: Negative November 10: White count 16 hemoglobin 10.2 platelets 339 sodium 149 potassium 2.5 BUN 44 creatinine 1.38 November 10, 2023: White count 7.8 hemoglobin 11.7 platelets 471 sodium 146 potassium 3.3 BUN 48 creatinine 1.78 lactic acid 2.5 UA positive for leukoesterase, WBC 111 nitrite positive [place] Urine drug screen: Positive for opiates benzodiazepine Influenza type A, type B, RSV, COVID-19: Not detected EKG tracing personally reviewed by me-intraventricular block. Ectopic atrial focus Chest abdomen pelvis CT: Large right hydropneumothorax. Consolidation in the right lung. Patchy infiltrate in the posterior segment left lower lobe. Extensive retained fecal debris. Atrophy of the pancreas. Stable adenoma/hyperplasia of the adrenal gland. Left kidney atrophic DJD changes of spine. Cardiomegaly Previous labs: Creatinine 0.8 on October 06, 2023 Assessment plan: -Severe sepsis. Source pneumonia, UTI. Rule out empyema: Better IV Zosyn. Given IV vancomycin in the ER.-Because of renal function hold off. Urine culture-negative. Blood [id number] cocci in clusters. -Right-sided large hydropneumothorax. With possible trapped lung On October 04 950 cc of dark bloody fluid from the right pleural space was aspirated by Dr. BLANC Pulmonary Dr. BLANC following -Hypernatremia from free water deficit: Improving I decrease IV fluids -Lactic acidosis from sepsis -Pneumonia multilobar suspect gram-negative organism IV Zosyn -Acute UTI with cystitis secondary to Davidson catheter IV Zosyn -Acute delirium metabolic encephalopathy multifactorial: Some improvement -Acute kidney injury combination of prerenal and ATN multifactorial: Some improvement Hold Aldactone. Cut back dose of Neurontin. IV fluids. -Hyperlipidemia Lipitor 80 mg nightly -Chronic congestive heart failure systolic dysfunction EF 40 to 45% Follow cardiovascular status. IV hydration. -Peripheral neuropathy Given kidney injury will cut back dose of Neurontin -Chronic bladder outflow obstruction/BPH Flomax 0.4 mg a day. 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 Follow Accu-Cheks -Full code IV Zosyn. Change IV fluids to D5.45.. Continue pured diet. Spoke to the nurse Natasha about deep suctioning for throat secretions. 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 Date of last positivie culture/infection: 10/28/22 MDRO Source:: Blood Past Surgical History: Heart Catheterization Additional Past Surgical History / Comment(s): bilateral great toes amputated, 2nd toe lt foot partial amputation, multiple debridements of venous ulcers, colonoscopy, surgery as a child for undescended testicle., ABOVE THE KNEE AMPUTATION RIGHT LEG (JUNE 2017-[facility]) Past Anesthesia/Blood Transfusion Reactions: No Reported Reaction Date of Last Stent Placement:: 10/17/2022 Past Psychological History: Anxiety, Depression Smoking Status: Former smoker Past Alcohol Use History: Unable to Obtain Past Drug Use History: Unable to Obtain
[2023-11-14] MEDS: ZINC OXIDE 20% OINT 28.4 GM TUBE TOPICAL PRN (16:31)
[2023-11-14] MEDS: POTASSIUM BICARBONATE/CIT AC 20 MEQ TABLET.EFF PO ONE (16:31)
[2023-11-14 16:54] LABS: Glucose,Whole Blood 286 mg/dL (70-110)
--- NOTE | 2023-11-14 19:12 | P.PN ---
Subjective Progress Note Date: 11/14/23 Principal diagnosis: Reason for follow up with UTI sacral pressure ulcer possible pneumonia Patient is a 73-year-old male with a past medical history significant for diabetes mellitus hypertension hyperlipidemia osteoarthritis did have history of diabetic foot infection and is status post bilateral [id number] amputation, patient has been brought to the hospital concerning for increasing confusion fever failing outpatient treatment for pneumonia and UTI. On today's evaluation that is 11/14/2023,the patient slightly more awake alert today patient has been afebrile he is breathing comfortably on room air however did have a congested cough not bringing up any sputum no vomiting diarrhea or any changes has been reported. Patient white count is down to 13,000, creatinine is 1.1 2 repeat UA positive with cultures pending Objective - Vital Signs Vital signs: Vital Signs Temp 98.8 F 11/13/23 23:33 Pulse 50 L 11/14/23 03:57 Resp 16 11/14/23 03:57 BP 161/68 11/14/23 03:57 Pulse Ox 98 11/14/23 03:57 FiO2 Intake & Output 11/13/23 11/14/23 11/14/23 18:59 06:59 18:59 Intake Total 118 240 Output Total 225 600 Balance -107 -360 Weight 85.5 kg Intake: Oral 118 240 Output: Urine 225 600 Other: Voiding Method Indwelling Catheter Indwelling Catheter - Exam GENERAL DESCRIPTION: An elderly male lying in bed in no distress RESPIRATORY SYSTEM: Unlabored breathing , coarse breath sounds at bases HEART: S1 S2 regular rate and rhythm , ABDOMEN: Soft , no tenderness EXTREMITIES: Bilateral BKA stump with no swelling or redness - Labs CBC & Chem 7: 11/14/23 08:04 11/14/23 08:04 Labs: Abnormal Lab Results - Last 24 Hours (Table) 11/13/23 11/13/23 11/13/23 Range/Units 09:32 09:32 12:25 WBC 15.6 H (3.8-10.6) k/uL RBC 3.73 L (4.30-5.90) m/uL Hgb 9.4 L (13.0-17.5) gm/dL Hct 31.9 L (39.0-53.0) % MCHC 29.5 L (31.0-37.0) g/dL RDW 16.1 H (11.5-15.5) % Neutrophils # 13.6 H (1.3-7.7) k/uL Sodium 158 H (137-145) mmol/L Potassium 3.0 L (3.5-5.1) mmol/L Chloride 129 H (98-107) mmol/L BUN 42 H (9-20) mg/dL Creatinine 1.31 H (0.66-1.25) mg/dL Glucose 55 L (74-99) mg/dL POC Glucose (mg/dL) (70-110) mg/dL Urine Protein 2+ H (Negative) Urine Blood Moderate H (Negative) Ur Leukocyte Esterase Large H (Negative) Urine RBC 67 H (0-5) /hpf Urine WBC 71 H (0-5) /hpf Uric Acid Crystals Few H (None) /hpf Urine Bacteria Rare H (None) /hpf Urine Mucus Rare H (None) /hpf Urine Yeast (Budding) Many H (None) /hpf 11/13/23 11/13/23 11/14/23 Range/Units 16:19 20:07 06:16 WBC (3.8-10.6) k/uL RBC (4.30-5.90) m/uL Hgb (13.0-17.5) gm/dL Hct (39.0-53.0) % MCHC (31.0-37.0) g/dL RDW (11.5-15.5) % Neutrophils # (1.3-7.7) k/uL Sodium (137-145) mmol/L Potassium (3.5-5.1) mmol/L Chloride (98-107) mmol/L BUN (9-20) mg/dL Creatinine (0.66-1.25) mg/dL Glucose (74-99) mg/dL POC Glucose (mg/dL) 124 H 146 H 277 H (70-110) mg/dL Urine Protein (Negative) Urine Blood (Negative) Ur Leukocyte Esterase (Negative) Urine RBC (0-5) /hpf Urine WBC (0-5) /hpf Uric Acid Crystals (None) /hpf Urine Bacteria (None) /hpf Urine Mucus (None) /hpf Urine Yeast (Budding) (None) /hpf Microbiology - Last 24 Hours (Table) 11/10/23 09:29 Blood Culture Gram Stain - Preliminary Blood Blood Culture - Preliminary Staph hominis sub sp. hominis Molecular ID Assessment and Plan (1) Sepsis Current Visit: Yes Status: Acute Code(s): A41.9 - SEPSIS, UNSPECIFIED O RGANISM SNOMED Code(s): 84680711 (2) Urinary tract infection Current Visit: Yes Status: Acute Code(s): N39.0 - URINARY TRACT INFECTION, SITE NOT SPECIFIED SNOMED Code(s): 08760174 (3) Pneumonia Current Visit: No Status: Acute Code(s): J18.9 - PNEUMONIA, UNSPECIFIED ORGANISM SNOMED Code(s): 933529000 Plan: 1patient was in the hospital with sepsis in this patient who did have fever tachycardia elevated white count source is likely combination of catheters has been tach infection and is concern for large hydropneumothorax and possible pneumonia questionable aspiration or gram-negative less likely gram-positive pathogen 2-positive blood culture with coagulase-negative staph possible contamination will repeat blood culture with a.m. lab to document clearance 3-patient did have improvement in his fever pattern and white count is trending down with addition of Diflucan yesterday to continue while waiting for the repeat urine culture to finalize Dictation was produced using [employer] dictation software. please excuse any grammatical, word or spelling errors. Time with Patient: Less than 30
[2023-11-14 20:09] LABS: Glucose,Whole Blood 254 mg/dL (70-110)
[2023-11-15 06:14] LABS: Glucose,Whole Blood 161 mg/dL (70-110)
[2023-11-15 11:41] LABS: Glucose,Whole Blood 121 mg/dL (70-110)
--- NOTE | 2023-11-15 15:54 | P.PN ---
Progress Note - Text Progress Note Date: 11/15/23 Chief Complaint: Altered mentation This is a 73-year-old patient, follows with visiting physicians Dr. Rene. Chronic stable medical conditions include diabetes, GERD, hypertension, hyperlipidemia, chronic venous stasis wounds. Arthritis. Neuropathy. Bilateral above-knee amputation. CHF EF 40 to 45%, dementia, home oxygen 2 L chronic Davidson catheter. Patient is taking care of by his daughter. Per the EMS report 70 9 PM patient became unresponsive. From his normal alert self. She tried sternal rubs with no real success. Patient had not had a bowel movement for 16 days. Per PCP magnesium citrate was ordered. Also for last several days poor oral intake. Had a recent pneumonia and a UTI. Temperature recorded was 101. Was found to be rather unkempt and fall ordered by the EMS. They gave IV fluids. EKG showed sinus tachycardia. In the ER patient somewhat delirious. Really cannot give any history. No family at the bedside. On October 04 950 cc of dark bloody fluid from the right pleural space was taken out by Dr. BLANC. ER physician called Dr. BLANC from pulmonary regarding the large right hydropneumothorax. Present time nothing further was to be done. November 10: Patient was seen in the ER earlier today. On IV cefepime. A bit more awake. Though still delirious. Dry oral cavity. Oral tolerate ordered. NG tube for medications. Some improvement in renal function. Febrile November 11: Patient still delirious but doing a bit better. . Able to take his medications. Oral hygiene was done yesterday. Diet is being changed to pured. No fever since yesterday evening. Continue IV Zosyn. Sodium up to 151. Increase IV fluids. Attempted to speak. November 12: Patient remained lethargic. Delirious. Sodium is gone to 158. Blood glucose low. Decreased oral intake. Will change IV fluids to D5W at 150 cc an hour. On IV Zosyn. No further fever. November 13: Doing better. Sodium has come down. Accu-Cheks are better running high. Change IV fluids to D5.45. Cut back IV fluid rate. Throat secretions. For deep suctioning. Tolerating pured diet. November 14: Ate fairly okay yesterday. Not keen for breakfast today. No gurgling in the chest. Remains on IV Zosyn. Tired. Active Medications Acetaminophen (Acetaminophen Tab 325 Mg Tab) 650 mg PO Q6HR PRN PRN Reason: Mild Pain or Fever > 100.5 Last Admin: 11/11/23 14:02 Dose: 650 mg Hydrocodone Bitart/Acetaminophen (Hydrocodone/Apap 7.5-325mg 1 Each Tab) 1 each PO Q6HR PRN PRN Reason: Pain Last Admin: 11/14/23 12:01 Dose: 1 each Amlodipine Besylate (Amlodipine 10 Mg Tab) 10 mg PO DAILY [facility] [place] Last Admin: 11/15/23 09:08 Dose: 10 mg Atorvastatin Calcium (Atorvastatin 80 Mg Tab) 80 mg PO HS [facility] [place] Last Admin: 11/14/23 19:35 Dose: 80 mg Clopidogrel Bisulfate (Clopidogrel 75 Mg Tab) 75 mg PO DAILY [facility] [place] Last Admin: 11/15/23 09:08 Dose: 75 mg Dextrose/Water (Dextrose 50% Syringe 50 Ml) 25 ml IVP PER PROTOCOL PRN; Protocol PRN Reason: Hypoglycemia Last Admin: 11/13/23 06:10 Dose: 25 ml Dextrose/Water (Dextrose 50% Syringe 50 Ml) 50 ml IVP PER PROTOCOL PRN; Protocol PRN Reason: Hypoglycemia Enoxaparin Sodium (Enoxaparin 40 Mg/0.4 Ml Syringe) 40 mg SQ DAILY [facility] [place] Last Admin: 11/15/23 09:08 Dose: 40 mg Fluconazole (Fluconazole 100 Mg Tab) 100 mg PO DAILY [facility] [place]; Protocol Last Admin: 11/15/23 09:08 Dose: 100 mg Gabapentin (Gabapentin 300 Mg Cap) 300 mg PO BID [facility] [place] Last Admin: 11/15/23 09:08 Dose: 300 mg Piperacillin Sod/Tazobactam (Sod 3.375 gm/ Sodium Chloride) 100 mls @ 25 mls/hr IVPB Q8H SINDHU; Protocol Last Admin: 11/15/23 15:37 Dose: 25 mls/hr Dextrose/Sodium Chloride (Dextrose 5%-1/2ns Iv Soln) 1,000 mls @ 75 mls/hr IV .[id number] [facility] [place] Last Admin: 11/14/23 23:32 Dose: 75 mls/hr Insulin Aspart (Insulin Aspart (Novolog) 100 Unit/Ml Vial) 0 unit SQ AC-TID [facility] [place]; Protocol Last Admin: 11/15/23 11:43 Dose: Not Given Insulin Detemir (Insulin Detemir (Levemir) 100 Unit/Ml Syr) 20 unit SQ [facility] Last Admin: 11/14/23 20:15 Dose: 20 unit Magnesium Citrate (Magnesium Citrate 296 Ml Bottle) 296 ml PO [facility] Miscellaneous Information (Potassium Replacement Protocol 1 Each Misc) 1 each MISCELLANE DAILY PRN; Protocol PRN Reason: Per Protocol Multi-Ingredient Ointment (Zinc Oxide 20% Oint 28.4 Gm Tube) 1 applic TOPICAL BID PRN; Protocol PRN Reason: Wound Healing Last Admin: 11/14/23 16:31 Dose: 1 applic Naloxone HCl (Naloxone 0.4 Mg/Ml 1 Ml Vial) 0.2 mg IV Q2M PRN PRN Reason: Opioid Reversal Nystatin (Nystatin 100,000 Unit/Gm Powd 15 Gm) 1 applic TOPICAL BID [facility]; Protocol Last Admin: 11/15/23 09:08 Dose: 1 applic Ondansetron HCl (Ondansetron 4 Mg/2 Ml Vial) 4 mg IVP Q8HR PRN PRN Reason: Nausea And Vomiting Senna (Sennosides 8.6 Mg Tab) 8.6 mg PO DAILY [facility] [place] Last Admin: 11/15/23 09:08 Dose: 8.6 mg Sodium Bicarbonate (Sodium Bicarbonate Tab 650 Mg Tab) 650 mg PO BID [facility] [place] Last Admin: 11/15/23 09:08 Dose: 650 mg Tamsulosin HCl (Tamsulosin 0.4 Mg Cap.Er.24h) 0.4 mg PO DAILY [facility] [place] Last Admin: 11/15/23 09:08 Dose: 0.4 mg Trazodone HCl (Trazodone Hcl 50 Mg Tab) 50 mg PO [facility] Last Admin: 11/14/23 19:35 Dose: 50 mg Social history: Former smoker. Cared for by his daughter. Physical examination: VITAL SIGNS: 98.8, 72, 22, 170 x 60, 94% room air GENERAL: Laying in bed. Tired EYES: [Pupils equal. Conjunctiva pale HEENT: External appearance of nose and ears normal, oral cavity less dry mucous membrane. NECK: JVD not raised; masses not palpable. HEART: First and second heart sounds are normal; no edema. LUNGS: Respiratory rate increased; decreased breath sounds. ABDOMEN: Soft, nontender, liver spleen not palpable, no masses palpable. Davidson catheter PSYCH: Sleepy MUSCULOSKELETAL:No Clubbing/cyanosis;muscles-grossly intact. Lower back decubitus wound pictures in the chart NEUROLOGICAL: [Cranial nerves grossly intact; no facial asymmetry, moving all 4 limbs. Tolerating pured diet INVESTIGATIONS, reviewed in the clinical context: November 13: White count 13 hemoglobin 8.7 sodium 146 potassium 3.3 BUN 36 cr eatinine 1.12 November 12: White count 15.6 hemoglobin 9.4 platelets 323 sodium 158 potassium 3 BUN 42 creatinine 1.31 glucose 55 November 11: White count 12.9 hemoglobin 9.8 platelets 305 sodium 151 potassium 3 BUN 40 creatinine 1.3 Urine culture: Negative November 10: White count 16 hemoglobin 10.2 platelets 339 sodium 149 potassium 2.5 BUN 44 creatinine 1.38 November 10, 2023: White count 7.8 hemoglobin 11.7 platelets 471 sodium 146 potassium 3.3 BUN 48 creatinine 1.78 lactic acid 2.5 UA positive for leukoesterase, WBC 111 nitrite positive [place] Urine drug screen: Positive for opiates benzodiazepine Influenza type A, type B, RSV, COVID-19: Not detected EKG tracing personally reviewed by me-intraventricular block. Ectopic atrial focus Chest abdomen pelvis CT: Large right hydropneumothorax. Consolidation in the right lung. Patchy infiltrate in the posterior segment left lower lobe. Extensive retained fecal debris. Atrophy of the pancreas. Stable adenoma/hyperplasia of the adrenal gland. Left kidney atrophic DJD changes of spine. Cardiomegaly Previous labs: Creatinine 0.8 on October 06, 2023 Assessment plan: -Severe sepsis. Source pneumonia, UTI. Rule out empyema: Better IV Zosyn. Given IV vancomycin in the ER.-Because of renal function hold off. Urine culture-negative. Blood chhrtic-mlaj-pwmriovs cocci in clusters. -Right-sided large hydropneumothorax. With possible trapped lung On October 04 950 cc of dark bloody fluid from the right pleural space was aspirated by Dr. BLANC Pulmonary Dr. BLANC following -Hypernatremia from free water deficit: Improving I decrease IV fluids -Lactic acidosis from sepsis -Pneumonia multilobar suspect gram-negative organism IV Zosyn -Acute UTI with cystitis secondary to Davidson catheter IV Zosyn -Acute delirium metabolic encephalopathy multifactorial: Some improvement -Acute kidney injury combination of prerenal and ATN multifactorial: Some improvement Hold Aldactone. Cut back dose of Neurontin. IV fluids. -Hyperlipidemia Lipitor 80 mg nightly -Chronic congestive heart failure systolic dysfunction EF 40 to 45% Follow cardiovascular status. IV hydration. -Peripheral neuropathy Given kidney injury will cut back dose of Neurontin -Chronic bladder outflow obstruction/BPH Flomax 0.4 mg a day. 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 Follow Accu-Cheks -Full code IV Zosyn. Continue with pured diet. Check labs in the morning. 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 Date of last positivie culture/infection: 10/28/22 MDRO Source:: Blood Past Surgical History: Heart Catheterization Additional Past Surgical History / Comment(s): bilateral great toes amputated, 2nd toe lt foot partial amputation, multiple debridements of venous ulcers, colonoscopy, surgery as a child for undescended testicle., ABOVE THE KNEE AMPUTATION RIGHT LEG (JUNE 2017-[facility]) Past Anesthesia/Blood Transfusion Reactions: No Reported Reaction Date of Last Stent Placement:: 10/17/2022 Past Psychological History: Anxiety, Depression Smoking Status: Former smoker Past Alcohol Use History: Unable to Obtain Past Drug Use History: Unable to Obtain
[2023-11-15 16:55] LABS: Glucose,Whole Blood 95 mg/dL (70-110)
[2023-11-15] MEDS: MAGNESIUM CITRATE 296 ML BOTTLE PO SCH (17:18)
--- NOTE | 2023-11-15 18:14 | P.PN ---
Subjective Progress Note Date: 11/15/23 Principal diagnosis: Reason for follow up with UTI sacral pressure ulcer possible pneumonia Patient is a 73-year-old male with a past medical history significant for diabetes mellitus hypertension hyperlipidemia osteoarthritis did have history of diabetic foot infection and is status post bilateral bbboz-[id number]-[id number] amputation, patient has been brought to the hospital concerning for increasing confusion fever failing outpatient treatment for pneumonia and UTI. On today's evaluation that is 11/15/2023,the patient remains to be afebrile, patient is on room air not requiring supplemental oxygen and in no respiratory distress patient is more sleepy today and did not answer any question no vomiting diarrhea in the change reported by nursing staff. No new labs has been obtained today urine showing Barbie tropicalis Objective - Vital Signs Vital signs: Vital Signs Temp 98.1 F 11/15/23 15:45 Pulse 57 L 11/15/23 15:45 Resp 20 11/15/23 15:45 BP 149/67 11/15/23 15:45 Pulse Ox 92 L 11/15/23 15:45 FiO2 Intake & Output 11/14/23 11/15/23 11/15/23 18:59 06:59 18:59 Intake Total 236 240 100 Output Total 400 Balance -164 240 100 Weight 86.5 kg 86.5 kg Intake: Oral 236 240 100 Output: Urine 400 Other: Voiding Method Indwelling Catheter Indwelling Catheter Indwelling Catheter # Bowel Movements 1 - Exam GENERAL DESCRIPTION: An elderly male lying in bed in no distress RESPIRATORY SYSTEM: Unlabored breathing , coarse breath sounds at bases HEART: S1 S2 regular rate and rhythm , ABDOMEN: Soft , no tenderness EXTREMITIES: Bilateral BKA stump with no swelling or redness - Labs CBC & Chem 7: 11/14/23 08:04 11/14/23 08:04 Labs: Abnormal Lab Results - Last 24 Hours (Table) 11/14/23 11/15/23 11/15/23 Range/Units 20:07 06:12 11:39 POC Glucose (mg/dL) 254 H 161 H 121 H (70-110) mg/dL Microbiology - Last 24 Hours (Table) 11/13/23 12:25 Urine Culture - Final Urine,Voided Barbie tropicalis Assessment and Plan (1) Sepsis Current Visit: Yes Status: Acute Code(s): A41.9 - SEPSIS, UNSPECIFIED ORGANISM SNOMED Code(s): 27763995 (2) Urinary tract infection Current Visit: Yes Status: Acute Code(s): N39.0 - URINARY TRACT INFECTION, SITE NOT SPECIFIED SNOMED Code(s): 14768476 (3) Pneumonia Current Visit: No Status: Acute Code(s): J18.9 - PNEUMONIA, UNSPECIFIED ORGANISM SNOMED Code(s): 146833823 Plan: 1patient was in the hospital with sepsis in this patient who did have fever tachycardia elevated white count source is likely combination of catheters has been tach infection and is concern for large hydropneumothorax and possible pneumonia questionable aspiration or gram-negative less likely gram-positive pathogen 2-positive blood culture with coagulase-negative staph possible contamination, blood cultures repeated 3-patient did have improvement in his fever pattern and white count is trending down urine is growing Barbie tropicalis for which the patient is covered with the Diflucan Dictation was produced using [employer] dictation software. please excuse any grammatical, word or spelling errors. Time with Patient: Less than 30
[2023-11-15 20:20] LABS: Glucose,Whole Blood 143 mg/dL (70-110)
[2023-11-15] MEDS: INSULIN DETEMIR (LEVEMIR) 100 UNIT/ML SYR SQ SCH (20:40)
[2023-11-16 06:01] LABS: Glucose,Whole Blood 209 mg/dL (70-110)
[2023-11-16 08:17] LABS: African American GFR (CKD) 76 (>60 ml/min/1.73 sqM); Anion Gap 1 mmol/L; Blood Urea Nitrogen 29 mg/dL (9-20); Calcium 6.9 mg/dL (8.4-10.2); Carbon Dioxide 25 mmol/L (22-30); Chloride 118 mmol/L (98-107); Glucose 182 mg/dL (74-99); Non-African American GFR(CKD) 66 (>60 ml/min/1.73 sqM); Potassium 3.7 mmol/L (3.5-5.1); Sodium 144 mmol/L (137-145)
[2023-11-16 08:29] LABS: Basophils % (A) 0 %; Eosinophils # (A) 0.2 k/uL (0-0.7); Eosinophils % (A) 2 %; HCT 27.7 % (39.0-53.0); HGB 8.4 gm/dL (13.0-17.5); Hypochromasia Marked; Lymphocytes # (A) 0.7 k/uL (1.0-4.8); Lymphocytes % (A) 7 %; MCH 25.7 pg (25.0-35.0); MCHC 30.2 g/dL (31.0-37.0); MCV 85.2 fL (80.0-100.0); Mean Platelet Volume 9.2; Monocytes # (A) 0.6 k/uL (0-1.0); Monocytes % (A) 7 %; Neutrophils % (A) 83 %; Platelet Count 250 k/uL (150-450); RBC 3.25 m/uL (4.30-5.90); WBC 9.6 k/uL (3.8-10.6)
[2023-11-16 11:50] LABS: Glucose,Whole Blood 180 mg/dL (70-110)
--- NOTE | 2023-11-16 14:07 | P.PN ---
Progress Note - Text Progress Note Date: 11/16/23 Chief Complaint: Altered mentation This is a 73-year-old patient, follows with visiting physicians Dr. Rene. Chronic stable medical conditions include diabetes, GERD, hypertension, hyperlipidemia, chronic venous stasis wounds. Arthritis. Neuropathy. Bilateral above-knee amputation. CHF EF 40 to 45%, dementia, home oxygen 2 L chronic Davidson catheter. Patient is taking care of by his daughter. Per the EMS report 70 9 PM patient became unresponsive. From his normal alert self. She tried sternal rubs with no real success. Patient had not had a bowel movement for 16 days. Per PCP magnesium citrate was ordered. Also for last several days poor oral intake. Had a recent pneumonia and a UTI. Temperature recorded was 101. Was found to be rather unkempt and fall ordered by the EMS. They gave IV fluids. EKG showed sinus tachycardia. In the ER patient somewhat delirious. Really cannot give any history. No family at the bedside. On October 04 950 cc of dark bloody fluid from the right pleural space was taken out by Dr. BLANC. ER physician called Dr. BLANC from pulmonary regarding the large right hydropneumothorax. Present time nothing further was to be done. November 10: Patient was seen in the ER earlier today. On IV cefepime. A bit more awake. Though still delirious. Dry oral cavity. Oral tolerate ordered. NG tube for medications. Some improvement in renal function. Febrile November 11: Patient still delirious but doing a bit better. . Able to take his medications. Oral hygiene was done yesterday. Diet is being changed to pured. No fever since yesterday evening. Continue IV Zosyn. Sodium up to 151. Increase IV fluids. Attempted to speak. November 12: Patient remained lethargic. Delirious. Sodium is gone to 158. Blood glucose low. Decreased oral intake. Will change IV fluids to D5W at 150 cc an hour. On IV Zosyn. No further fever. November 13: Doing better. Sodium has come down. Accu-Cheks are better running high. Change IV fluids to D5.45. Cut back IV fluid rate. Throat secretions. For deep suctioning. Tolerating pured diet. November 14: Ate fairly okay yesterday. Not keen for breakfast today. No gurgling in the chest. Remains on IV Zosyn. Tired. Juliet 2: Awake. Laying in bed. Patient had most of his pured lunch. I also fed him a whole chocolate pured container. Drinking fluids. Afebrile. Patient on Diflucan for candiduria. Will DC D5.45. Change Levemir to 20 units at night. Sacral wound vascular is consulted. He will be reminded about the consult Active Medications Acetaminophen (Acetaminophen Tab 325 Mg Tab) 650 mg PO Q6HR PRN PRN Reason: Mild Pain or Fever > 100.5 Last Admin: 11/16/23 12:31 Dose: 650 mg Hydrocodone Bitart/Acetaminophen (Hydrocodone/Apap 7.5-325mg 1 Each Tab) 1 each PO Q6HR PRN PRN Reason: Pain Last Admin: 11/16/23 09:10 Dose: 1 each Amlodipine Besylate (Amlodipine 10 Mg Tab) 10 mg PO DAILY [facility] Last Admin: 11/16/23 09:10 Dose: 10 mg Atorvastatin Calcium (Atorvastatin 80 Mg Tab) 80 mg PO HS [facility] Last Admin: 11/15/23 19:52 Dose: 80 mg Clopidogrel Bisulfate (Clopidogrel 75 Mg Tab) 75 mg PO DAILY [facility] Last Admin: 11/16/23 09:10 Dose: 75 mg Dextrose/Water (Dextrose 50% Syringe 50 Ml) 25 ml IVP PER PROTOCOL PRN; Protocol PRN Reason: Hypoglycemia Last Admin: 11/13/23 06:10 Dose: 25 ml Dextrose/Water (Dextrose 50% Syringe 50 Ml) 50 ml IVP PER PROTOCOL PRN; Protocol PRN Reason: Hypoglycemia Enoxaparin Sodium (Enoxaparin 40 Mg/0.4 Ml Syringe) 40 mg SQ DAILY [facility] Last Admin: 11/16/23 09:11 Dose: 40 mg Fluconazole (Fluconazole 100 Mg Tab) 100 mg PO DAILY [facility]; Protocol Last Admin: 11/16/23 09:10 Dose: 100 mg Gabapentin (Gabapentin 300 Mg Cap) 300 mg PO BID [facility] Last Admin: 11/16/23 09:10 Dose: 300 mg Piperacillin Sod/Tazobactam (Sod 3.375 gm/ Sodium Chloride) 100 mls @ 25 mls/hr IVPB Q8H [facility]; Protocol Last Admin: 11/16/23 06:28 Dose: 25 mls/hr Dextrose/Sodium Chloride (Dextrose 5%-1/2ns Iv Soln) 1,000 mls @ 75 mls/hr IV .[id number] [facility] Last Admin: 11/16/23 09:14 Dose: 75 mls/hr Insulin Aspart (Insulin Aspart (Novolog) 100 Unit/Ml Vial) 0 unit SQ AC-TID [facility]; Protocol Last Admin: 11/16/23 12:29 Dose: 2 unit Insulin Detemir (Insulin Detemir (Levemir) 100 Unit/Ml Syr) 16 unit SQ HS [facility] Last Admin: 11/15/23 20:40 Dose: 16 unit Magnesium Citrate (Magnesium Citrate 296 Ml Bottle) 296 ml PO RING [facility] Last Admin: 11/15/23 17:18 Dose: 296 ml Miscellaneous Information (Potassium Replacement Protocol 1 Each Misc) 1 each MISCELLANE DAILY PRN; Protocol PRN Reason: Per Protocol Multi-Ingredient Ointment (Zinc Oxide 20% Oint 28.4 Gm Tube) 1 applic TOPICAL BID PRN; Protocol PRN Reason: Wound Healing Last Admin: 11/14/23 16:31 Dose: 1 applic Naloxone HCl (Naloxone 0.4 Mg/Ml 1 Ml Vial) 0.2 mg IV Q2M PRN PRN Reason: Opioid Reversal Nystatin (Nystatin 100,000 Unit/Gm Powd 15 Gm) 1 applic TOPICAL BID [facility]; Protocol Last Admin: 11/16/23 09:11 Dose: 1 applic Ondansetron HCl (Ondansetron 4 Mg/2 Ml Vial) 4 mg IVP Q8HR PRN PRN Reason: Nausea And Vomiting Senna (Sennosides 8.6 Mg Tab) 8.6 mg PO DAILY [facility] Last Admin: 11/16/23 09:04 Dose: Not Given Sodium Bicarbonate (Sodium Bicarbonate Tab 650 Mg Tab) 650 mg PO BID [facility] Last Admin: 11/16/23 09:10 Dose: 650 mg Tamsulosin HCl (Tamsulosin 0.4 Mg Cap.Er.24h) 0.4 mg PO DAILY [facility] Last Admin: 11/16/23 09:10 Dose: 0.4 mg Trazodone HCl (Trazodone Hcl 50 Mg Tab) 50 mg PO [facility] Last Admin: 11/15/23 19:52 Dose: 50 mg Social history: Former smoker. Cared for by his daughter. Physical examination: VITAL SIGNS: 98, 61, 20, 150/50, 96% room air GENERAL: Laying in bed. More awake EYES: [Pupils equal. Conjunctiva pale HEENT: External appearance of nose and ears normal, oral cavity less dry mucous membrane. NECK: JVD not raised; masses not palpable. HEART: First and second heart sounds are normal; no edema. LUNGS: Respiratory rate increased; decreased breath sounds. ABDOMEN: Soft, nontender, liver spleen not palpable, no masses palpable. Davidson catheter PSYCH: More awake. Answer some questions MUSCULOSKELETAL:No Clubbing/cyanosis;muscles-grossly intact. Lower back decubitus wound pictures in the chart NEUROLOGICAL: [Cranial nerves grossly intact; no facial asymmetry, moving all 4 limbs. Tolerating pured diet INVESTIGATIONS, reviewed in the clinical context: November 13: White count 13 hemoglobin 8.7 sodium 146 potassium 3.3 BUN 36 creati nine 1.12 November 12: White count 15.6 hemoglobin 9.4 platelets 323 sodium 158 potassium 3 BUN 42 creatinine 1.31 glucose 55 November 11: White count 12.9 hemoglobin 9.8 platelets 305 sodium 151 potassium 3 BUN 40 creatinine 1.3 Urine culture: Negative November 10: White count 16 hemoglobin 10.2 platelets 339 sodium 149 potassium 2.5 BUN 44 creatinine 1.38 November 10, 2023: White count 7.8 hemoglobin 11.7 platelets 471 sodium 146 potassium 3.3 BUN 48 creatinine 1.78 lactic acid 2.5 UA positive for leukoesterase, WBC 111 nitrite positive [place] Urine drug screen: Positive for opiates benzodiazepine Influenza type A, type B, RSV, COVID-19: Not detected EKG tracing personally reviewed by me-intraventricular block. Ectopic atrial focus Chest abdomen pelvis CT: Large right hydropneumothorax. Consolidation in the right lung. Patchy infiltrate in the posterior segment left lower lobe. Extensive retained fecal debris. Atrophy of the pancreas. Stable adenoma/hyperplasia of the adrenal gland. Left kidney atrophic DJD changes of spine. Cardiomegaly Previous labs: Creatinine 0.8 on October 06, 2023 Assessment plan: -Severe sepsis. Source pneumonia, UTI. Rule out empyema: Improving IV Zosyn. Given IV vancomycin in the ER.-Because of renal function hold off. Urine culture-negative. Blood culture-g Staphylococcus hominis likely contaminant -Blood cultures positive for Staphylococcus hominis, likely contaminant -Right-sided large hydropneumothorax. With possible trapped lung On October 04 950 cc of dark bloody fluid from the right pleural space was aspirated by Dr. BLANC Pulmonary Dr. BLANC following -Hypernatremia from free water deficit: Corrected Miguel Ángel IV fluids -Lactic acidosis from sepsis -Pneumonia multilobar suspect gram-negative organism IV Zosyn -Acute UTI with cystitis secondary to Davidson catheter IV Zosyn -Acute delirium metabolic encephalopathy multifactorial: Improving -Acute kidney injury combination of prerenal and ATN multifactorial: Some improvement Hold Aldactone. Cut back dose of Neurontin. IV fluids. Admission creatinine 1.78. Now down to 1.12 -Hyperlipidemia Lipitor 80 mg nightly -Chronic congestive heart failure systolic dysfunction EF 40 to 45% Follow cardiovascular status. IV hydration given IV fluids being discontinued. -Peripheral neuropathy Given kidney injury will cut back dose of Neurontin -Chronic bladder outflow obstruction/BPH Flomax 0.4 mg a day. 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 Follow Accu-Cheks -Full code IV Zosyn. Continue with pured diet. Remind vascular to consult. 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 Date of last positivie culture/infection: 10/28/22 MDRO Source:: Blood Past Surgical History: Heart Catheterization Additional Past Surgical History / Comment(s): bilateral great toes amputated, 2nd toe lt foot partial amputation, multiple debridements of venous ulcers, colonoscopy, surgery as a child for undescended testicle., ABOVE THE KNEE AMPUTATION RIGHT LEG (JUNE 2017-[facility]) Past Anesthesia/Blood Transfusion Reactions: No Reported Reaction Date of Last Stent Placement:: 10/17/2022 Past Psychological History: Anxiety, Depression Smoking Status: Former smoker Past Alcohol Use History: Unable to Obtain Past Drug Use History: Unable to Obtain
[2023-11-16 16:54] LABS: Glucose,Whole Blood 215 mg/dL (70-110)
[2023-11-16 20:23] LABS: Glucose,Whole Blood 256 mg/dL (70-110)
[2023-11-16] MEDS: INSULIN DETEMIR (LEVEMIR) 100 UNIT/ML SYR SQ SCH (21:09)
--- NOTE | 2023-11-16 21:25 | P.PN ---
Subjective Progress Note Date: 11/16/23 Principal diagnosis: Reason for follow up with UTI sacral pressure ulcer possible pneumonia Patient is a 73-year-old male with a past medical history significant for diabetes mellitus hypertension hyperlipidemia osteoarthritis did have history of diabetic foot infection and is status post bilateral [id number] amputation, patient has been brought to the hospital concerning for increasing confusion fever failing outpatient treatment for pneumonia and UTI. On today's evaluation that is 11/16/2023, the patient continues to be afebrile, the patient is on room air and breathing comfortably, the Pt denies having any chest pain or any worsening cough, the patient denies having any abdominal pain no vomiting or any diarrhea has been reported by the nursing staff, patient is more awake and alert today. The patient white count normalized, creatinine is 1.112 Objective - Vital Signs Vital signs: Vital Signs Temp 98.0 F 11/16/23 12:40 Pulse 61 11/16/23 12:40 Resp 20 11/16/23 12:40 BP 150/50 11/16/23 12:40 Pulse Ox 96 11/16/23 12:40 FiO2 Intake & Output 11/15/23 11/16/23 11/16/23 18:59 06:59 18:59 Intake Total 100 240 480 Output Total 425 Balance -325 240 480 Weight 86.5 kg 88 kg Intake: Oral 100 240 480 Output: Urine 425 Other: Voiding Method Indwelling Catheter Indwelling Catheter Indwelling Catheter # Bowel Movements 1 1 - Exam GENERAL DESCRIPTION: An elderly male lying in bed in no distress RESPIRATORY SYSTEM: Unlabored breathing , coarse breath sounds at bases HEART: S1 S2 regular rate and rhythm , ABDOMEN: Soft , no tenderness EXTREMITIES: Bilateral BKA stump with no swelling or redness - Labs CBC & Chem 7: 11/16/23 07:32 11/16/23 07:32 Labs: Abnormal Lab Results - Last 24 Hours (Table) 11/15/23 11/16/23 11/16/23 Range/Units 20:18 05:59 07:32 RBC 3.25 L (4.30-5.90) m/uL Hgb 8.4 L (13.0-17.5) gm/dL Hct 27.7 L (39.0-53.0) % MCHC 30.2 L (31.0-37.0) g/dL RDW 16.0 H (11.5-15.5) % Neutrophils # 8.0 H (1.3-7.7) k/uL Lymphocytes # 0.7 L (1.0-4.8) k/uL Chloride (98-107) mmol/L BUN (9-20) mg/dL Glucose (74-99) mg/dL POC Glucose (mg/dL) 143 H 209 H (70-110) mg/dL Calcium (8.4-10.2) mg/dL 11/16/23 11/16/23 Range/Units 07:32 11:49 RBC (4.30-5.90) m/uL Hgb (13.0-17.5) gm/dL Hct (39.0-53.0) % MCHC (31.0-37.0) g/dL RDW (11.5-15.5) % Neutrophils # (1.3-7.7) k/uL Lymphocytes # (1.0-4.8) k/uL Chloride 118 H (98-107) mmol/L BUN 29 H (9-20) mg/dL Glucose 182 H (74-99) mg/dL POC Glucose (mg/dL) 180 H (70-110) mg/dL Calcium 6.9 L (8.4-10.2) mg/dL Assessment and Plan (1) Sepsis Current Visit: Yes Status: Acute Code(s): A41.9 - SEPSIS, UNSPECIFIED ORGANISM SNOMED Code(s): 50229030 (2) Urinary tract infection Current Visit: Yes Status: Acute Code(s): N39.0 - URINARY TRACT INFECTION, SITE NOT SPECIFIED SNOMED Code(s): 99705762 (3) Pneumonia Current Visit: No Status: Acute Code(s): J18.9 - PNEUMONIA, UNSPECIFIED ORGANISM SNOMED Code(s): 072996507 Plan: 1patient was in the hospital with sepsis in this patient who did have fever tachycardia elevated white count source is likely combination of catheters has been tach infection and is concern for large hydropneumothorax and possible pneumonia questionable aspiration or gram-negative less likely gram-positive pathogen, patient has received adequate Zosyn and can be discontinued on discharge 2-positive blood culture with coagulase-negative staph possible contamination, blood cultures repeated 3-patient did have improvement in his fever pattern and white count i has normalized patient to continue with the Diflucan will consider short 3-day course on discharge Dictation was produced using [employer] dictation software. please excuse any gramma tical, word or spelling errors. Time with Patient: Less than 30
[2023-11-17 06:25] LABS: Glucose,Whole Blood 128 mg/dL (70-110)
[2023-11-17 11:49] LABS: Glucose,Whole Blood 171 mg/dL (70-110)
--- NOTE | 2023-11-17 16:13 | P.PN ---
Subjective Progress Note Date: 11/17/23 Principal diagnosis: Reason for follow up with UTI sacral pressure ulcer possible pneumonia Patient is a 73-year-old male with a past medical history significant for diabetes mellitus hypertension hyperlipidemia osteoarthritis did have history of diabetic foot infection and is status post bilateral oldyv-xbw-acms amputation, patient has been brought to the hospital concerning for increasing confusion fever failing outpatient treatment for pneumonia and UTI. On today's evaluation that is 11/17/2023, Patient is afebrile patient is currently on room air and denies having any shortness of breath, the patient denies any chest pain or cough, the patient denies any nausea vomiting did not have any abdominal pain and no diarrhea, no new symptoms. No new lab has been repeated today Objective - Vital Signs Vital signs: Vital Signs Temp 97.8 F 11/17/23 11:31 Pulse 73 11/17/23 11:31 Resp 16 11/17/23 11:31 BP 144/59 11/17/23 11:31 Pulse Ox 96 11/17/23 11:31 FiO2 Intake & Output 11/16/23 11/17/23 11/17/23 18:59 06:59 18:59 Intake Total 480 190 Output Total 575 Balance 480 -575 190 Intake: Oral 480 190 Output: Urine 575 Other: Voiding Method Indwelling Catheter Indwelling Catheter Indwelling Catheter - Exam GENERAL DESCRIPTION: An elderly male lying in bed in no distress RESPIRATORY SYSTEM: Unlabored breathing , coarse breath sounds at bases HEART: S1 S2 regular rate and rhythm , ABDOMEN: Soft , no tenderness EXTREMITIES: Bilateral BKA stump with no swelling or redness - Labs CBC & Chem 7: 11/16/23 07:32 11/16/23 07:32 Labs: Abnormal Lab Results - Last 24 Hours (Table) 11/16/23 11/16/23 11/17/23 Range/Units 16:52 20:18 06:20 POC Glucose (mg/dL) 215 H 256 H 128 H (70-110) mg/dL 11/17/23 Range/Units 11:48 POC Glucose (mg/dL) 171 H (70-110) mg/dL Assessment and Plan (1) Sepsis Current Visit: Yes Status: Acute Code(s): A41.9 - SEPSIS, UNSPECIFIED ORGANISM SNOMED Code(s): 90073316 (2) Urinary tract infection Current Visit: Yes Status: Acute Code(s): N39.0 - URINARY TRACT INFECTION, SITE NOT SPECIFIED SNOMED Code(s): 63262562 (3) Pneumonia Current Visit: No Status: Acute Code(s): J18.9 - PNEUMONIA, UNSPECIFIED ORGANISM SNOMED Code(s): 528883171 Plan: 1patient was in the hospital with sepsis in this patient who did have fever tachycardia elevated white count source is likely combination of catheters has been tach infection and is concern for large hydropneumothorax and possible pneumonia questionable aspiration or gram-negative less likely gram-positive pathogen, patient has received adequate Zosyn and can be discontinued on discharge 2-positive blood culture with coagulase-negative staph possible contamination, blood cultures repeated 3-patient did have improvement in his fever pattern and white count i has normalized patient to continue with the Diflucan x 3-day course on discharge Dictation was produced using [employer] dictation software. please excuse any grammatical, word or spelling errors.
[2023-11-17 16:42] LABS: Glucose,Whole Blood 205 mg/dL (70-110)
--- NOTE | 2023-11-17 18:38 | P.CON ---
Consult Note - . Consult date: 11/17/23 Assessment/Plan:: Patient is a 73-year-old male who originally presented to the emergency department for altered mentation. Has been receiving treatment for pneumonia outpatient but seemed to be getting more confused. Patient has a history of diabetes, hypertension, hyperlipidemia, chronic indwelling Davidson catheter, chronic bilateral lower extremity amputations. He was found to be septic and found to have hydropneumothorax and possible empyema. He is being treated for PNA and UTI. Surgery consulted for sacral decubitus ulcer possibly involving rectum. Review of Systems ROS Statement: Those systems with pertinent positive or pertinent negative responses have been documented in the HPI. ROS Other: All systems not noted in ROS Statement are negative. 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 Date of last positivie culture/infection: 10/28/22 MDRO Source:: Blood Past Surgical History: Heart Catheterization Additional Past Surgical History / Comment(s): bilateral great toes amputated, 2nd toe lt foot partial amputation, multiple debridements of venous ulcers, colonoscopy, surgery as a child for undescended testicle., ABOVE THE KNEE AMPUTATION RIGHT LEG (JUNE 2017-[facility]) Past Anesthesia/Blood Transfusion Reactions: No Reported Reaction Date of Last Stent Placement:: 10/17/2022 Past Psychological History: Anxiety, Depression Smoking Status: Former smoker Past Alcohol Use History: Unable to Obtain Past Drug Use History: Unable to Obtain - Past Family History Father Family Medical History: Cancer Additional Family Medical History / Comment(s): Father from brain cancer Mother Family Medical History: Eye Disorder Additional Family Medical History / Comment(s): Glaucoma. Mother is . General Exam - General Exam Comments Initial Comments: General: Patient is alert but not oriented. Febrile. Altered. HEAD: Normal with no signs of head trauma. EYES: PERRLA, EOMI, conjunctiva normal, no discharge. Pupils 3 mm and equal bilaterally. ENT: Hearing grossly intact, normal oropharynx. Significantly dry mucous membranes. RESPIRATORY: Clear breath sounds bilaterally. No wheezes, rales, or rhonchi. No hypoxia. No respiratory distress. C/V: Mild tachycardia with regular rhythm. S1 and S2 auscultated, no edema, peripheral pulses 2+ and intact throughout ABD: Abd is soft, nontender, nondistended EXT: Normal range of motion, no obvious deformity SKIN: No rashes or lesions observed on exposed skin. NEURO: Alert but not oriented. GCS is approximately 11 at this time. No obvious focal deficits. Assessment and Plan: -Sacral Decubitus Ulcer: Ulcer is nonstageable and possible involving rectum. Will plan for debridement and all indicated procedures in the Operating Room 11/18 pending patients clinical course. Do not think patient will be able to tolerate bedside debridement. -Severe sepsis. Source pneumonia, UTI. Rule out empyema IV Zosyn. -Right-sided large hydropneumothorax. With possible trapped lung -Lactic acidosis from sepsis -Pneumonia multilobar suspect gram-negative organism IV Zosyn -Acute UTI with cystitis secondary to Davidson catheter IV Zosyn Jt Alves DO [facility] [phone]
[2023-11-17 20:23] LABS: Glucose,Whole Blood 228 mg/dL (70-110)
[2023-11-18 06:28] LABS: Glucose,Whole Blood 91 mg/dL (70-110)
[2023-11-18 08:02] LABS: Anisocytosis Slight; Basophils % (A) 0 %; Eosinophils # (A) 0.3 k/uL (0-0.7); Eosinophils % (A) 3 %; HCT 26.6 % (39.0-53.0); HGB 8.3 gm/dL (13.0-17.5); Hypochromasia Slight; Lymphocytes # (A) 0.8 k/uL (1.0-4.8); Lymphocytes % (A) 7 %; MCH 25.7 pg (25.0-35.0); MCHC 31.3 g/dL (31.0-37.0); MCV 82.2 fL (80.0-100.0); Mean Platelet Volume 9.4; Monocytes # (A) 1.3 k/uL (0-1.0); Monocytes % (A) 11 %; Neutrophils # (A) 8.8 k/uL (1.3-7.7); Neutrophils % (A) 77 %; Platelet Count 295 k/uL (150-450); RBC 3.24 m/uL (4.30-5.90); RDW 16.6 % (11.5-15.5); WBC 11.4 k/uL (3.8-10.6)
[2023-11-18 08:40] LABS: ALT 44 U/L (4-49); AST 51 U/L (17-59); African American GFR (CKD) 84 (>60 ml/min/1.73 sqM); Albumin 2.2 g/dL (3.5-5.0); Alkaline Phosphatase 232 U/L (38-126); Anion Gap 4 mmol/L; Blood Urea Nitrogen 40 mg/dL (9-20); Calcium 7.7 mg/dL (8.4-10.2); Carbon Dioxide 23 mmol/L (22-30); Chloride 117 mmol/L (98-107); Glucose 80 mg/dL (74-99); Non-African American GFR(CKD) 73 (>60 ml/min/1.73 sqM); Sodium 144 mmol/L (137-145); Total Bilirubin 0.5 mg/dL (0.2-1.3); Total Protein 5.2 g/dL (6.3-8.2)
--- NOTE | 2023-11-18 10:05 | P.CON ---
Consult Note - . Consult date: 11/17/23 Assessment/Plan:: wound care consultation: Reason for consultation: Ulceration sacral area. History chief complaint. This patient has multiple rather severe comorbidities. He is status post bilateral AKA. He is currently admitted for change of mental status and metabolic encephalopathy. He is diabetic and hypertensive. He is status post PCI. About 6 weeks ago he had a thoracentesis and currently does have a hydropneumothorax. Given the patient's debilitated status and altered mental status the patient is dependent on utilizing incontinence garments and a chronic indwelling Davidson catheter. Physical examination: the patient has a large area of excoriation just above the rectum posteriorly. He has some areas of necrosis. The area appears to be chronically soiled. Recommendation: At this point the patient is scheduled for debridement by general surgery. I would currently recommend simply using triad to protect the area. I think it is most likely that the patient will require a colostomy to fully treat this problem given its proximity to the rectum and is debilitated status. However, in view of his multiple severe comorbidities, this will probably require some medical stabilization. Hospice might even be considered. I appreciate the opportunity participate in this unfortunate gentleman scare. If further assistance is needed please feel free to contact us.
[2023-11-18 11:19] LABS: Glucose,Whole Blood 86 mg/dL (70-110)
[2023-11-18 14:02] VITALS: BMI 76.6
--- NOTE | 2023-11-18 15:01 | CONS ---
DATE OF CONSULTATION: 11/10/2023 HISTORY OF PRESENT ILLNESS: This is a 73-year-old gentleman, well known to me from the past. The patient has been admitted with history of shortness of breath and some confusion. I was consulted this patient has some pressure ulcer noted on the sacral area. The patient also has been complaining of constipation for the last 10 days. PAST SURGICAL HISTORY: The patient had bilateral above-knee amputation done by me in the past. PAST MEDICAL HISTORY: History of diabetes, peripheral vascular disease. PHYSICAL EXAMINATION: GENERAL: The patient was seen in the emergency room. NECK: Supple. No bruit appreciated. CHEST: Clear. Few crackles at the lung bases. First and second sounds present. ABDOMEN: Soft, nontender. The patient has a Davidson catheter. VASCULAR: Femorals are 1+. The patient has bilateral above-knee amputation stump site is healing. No evidence of any wound or any surgical issues. PLAN: Zinc oxide. The dressing should be changed on a daily basis, air mattress bed if it is possible. We will follow with you. MIKAELL / IJN: [id number] / NIVIA
--- NOTE | 2023-11-18 16:47 | P.PN ---
Progress Note - Text Progress Note Date: 11/18/23 MARY. Resting comfortable VSS General-NAD Abdomen-soft, NTND Sacrum-Nonstageable Sacral Decub -Sacral Decubitus Ulcer: Ulcer is nonstageable and possible involving rectum. Will plan for debridement and all indicated procedures in the Operating Room 11/18 pending patients clinical course. Do not think patient will be able to tolerate bedside debridement. -Severe sepsis. Source pneumonia, UTI. Rule out empyema IV Zosyn. -Right-sided large hydropneumothorax. With possible trapped lung -Lactic acidosis from sepsis -Pneumonia multilobar suspect gram-negative organism IV Zosyn -Acute UTI with cystitis secondary to Davidson catheter IV Zosyn Jt Alves DO [facility] [phone]
[2023-11-18 16:56] LABS: Glucose,Whole Blood 63 mg/dL (70-110)
[2023-11-18 16:56] LABS: Glucose,Whole Blood 63 mg/dL (70-110)
[2023-11-18 17:01] LABS: Glucose,Whole Blood 64 mg/dL (70-110)
[2023-11-18 17:30] LABS: Glucose,Whole Blood 116 mg/dL (70-110)
[2023-11-18 20:12] LABS: Glucose,Whole Blood 272 mg/dL (70-110)
[2023-11-18] MEDS: LACTATED RINGERS 1,000 ML IV SCH (21:49)
--- NOTE | 2023-11-18 21:53 | P.PN ---
Progress Note - Text Progress Note Date: 11/17/23 Chief Complaint: Altered mentation This is a 73-year-old patient, follows with visiting physicians Dr. Rene. Chronic stable medical conditions include diabetes, GERD, hypertension, hyperlipidemia, chronic venous stasis wounds. Arthritis. Neuropathy. Bilateral above-knee amputation. CHF EF 40 to 45%, dementia, home oxygen 2 L chronic Davidson catheter. Patient is taking care of by his daughter. Per the EMS report 70 9 PM patient became unresponsive. From his normal alert self. She tried sternal rubs with no real success. Patient had not had a bowel movement for 16 days. Per PCP magnesium citrate was ordered. Also for last several days poor oral intake. Had a recent pneumonia and a UTI. Temperature recorded was 101. Was found to be rather unkempt and fall ordered by the EMS. They gave IV fluids. EKG showed sinus tachycardia. In the ER patient somewhat delirious. Really cannot give any history. No family at the bedside. On October 04 950 cc of dark bloody fluid from the right pleural space was taken out by Dr. BLANC. ER physician called Dr. BLANC from pulmonary regarding the large right hydropneumothorax. Present time nothing further was to be done. November 10: Patient was seen in the ER earlier today. On IV cefepime. A bit more awake. Though still delirious. Dry oral cavity. Oral tolerate ordered. NG tube for medications. Some improvement in renal function. Febrile November 11: Patient still delirious but doing a bit better. . Able to take his medications. Oral hygiene was done yesterday. Diet is being changed to pured. No fever since yesterday evening. Continue IV Zosyn. Sodium up to 151. Increase IV fluids. Attempted to speak. November 12: Patient remained lethargic. Delirious. Sodium is gone to 158. Blood glucose low. Decreased oral intake. Will change IV fluids to D5W at 150 cc an hour. On IV Zosyn. No further fever. November 13: Doing better. Sodium has come down. Accu-Cheks are better running high. Change IV fluids to D5.45. Cut back IV fluid rate. Throat secretions. For deep suctioning. Tolerating pured diet. November 14: Ate fairly okay yesterday. Not keen for breakfast today. No gurgling in the chest. Remains on IV Zosyn. Tired. November 15: Awake. Laying in bed. Patient had most of his pured lunch. I also fed him a whole chocolate pured container. Drinking fluids. Afebrile. Patient on Diflucan for candiduria. Will DC D5.45. Change Levemir to 20 units at night. Sacral wound vascular is consulted. He will be reminded about the consult November 16: Discussed with Dr. Haddad. Patient has a deeper wound close to rectum. General surgery consulted. Earlier today care was discussed in detail with patient daughter at the bedside. Will hold off discharge for now. Until further evaluation by surgery. Will probably need debridement. Wound appears to be chronic Medications reviewed Social history: Former smoker. Cared for by his daughter. Physical examination: VITAL SIGNS: 98.2, 63, 20, 159 x 72, 98% room air GENERAL: Laying in bed. Tired EYES: [Pupils equal. Conjunctiva pale HEENT: External appearance of nose and ears normal, oral cavity less dry mucous membrane. NECK: JVD not raised; masses not palpable. HEART: First and second heart sounds are normal; no edema. LUNGS: Respiratory rate increased; decreased breath sounds. ABDOMEN: Soft, nontender, liver spleen not palpable, no masses palpable. Davidson catheter PSYCH: More awake. Answer some questions MUSCULOSKELETAL:No Clubbing/cyanosis;muscles-grossly intact. Perianal decubitus wound NEUROLOGICAL: [Cranial nerves grossly intact; no facial asymmetry, moving all 4 limbs. Tolerating pured diet INVESTIGATIONS, reviewed in the clinical context: November 13: White count 13 hemoglobin 8.7 sodium 146 potassium 3.3 BUN 36 creatinine 1.12 November 12: White count 15.6 hemoglobin 9.4 platelets 323 sodium 158 potassium 3 BUN 42 creatinine 1.31 glucose 55 November 11: White count 12.9 hemoglobin 9.8 platelets 305 sodium 151 potassium 3 BUN 40 creatinine 1.3 Urine culture: Negative November 10: White count 16 hemoglobin 10.2 platelets 339 sodium 149 potassium 2.5 BUN 44 creatinine 1.38 November 10, 2023: White count 7.8 hemoglobin 11.7 platelets 471 sodium 146 potassium 3.3 BUN 48 creatinine 1.78 lactic acid 2.5 UA positive for leukoesterase, WBC 111 nitrite positive [place] Urine drug screen: Positive for opiates benzodiazepine Influenza type A, type B, RSV, COVID-19: Not detected EKG tracing personally reviewed by me-intraventricular block. Ectopic atrial focus Chest abdomen pelvis CT: Large right hydropneumothorax. Consolidation in the right lung. Patchy infiltrate in the posterior segment left lower lobe. Extensive retained fecal debris. Atrophy of the pancreas. Stable adenoma/hyperplasia of the adrenal gland. Left kidney atrophic DJD changes of spine. Cardiomegaly Previous labs: Creatinine 0.8 on October 06, 2023 Assessment plan: -Severe sepsis. Source pneumonia, UTI. Rule out empyema: Improving IV Zosyn. Urine culture-negative. Blood culture-g Staphylococcus hominis likely contaminant -Blood cultures positive for Staphylococcus hominis, likely contaminant -Perirectal wound. Likely chronic General surgery consulted. -Right-sided large hydropneumothorax. With possible trapped lung On October 04 950 cc of dark bloody fluid from the right pleural space was aspirated by Dr. BLANC Pulmonary Dr. BLANC following -Hypernatremia from free water deficit: Corrected Miguel Ángel IV fluids -Lactic acidosis from sepsis -Pneumonia multilobar suspect gram-negative organism IV Zosyn -Acute UTI with cystitis secondary to Davidson catheter IV Zosyn -Acute delirium metabolic encephalopathy multifactorial: Improving -Acute kidney injury combination of prerenal and ATN multifactorial: Improved Hold Aldactone. Cut back dose of Neurontin. IV fluids. Admission creatinine 1.78. Now down to 1.12 -Hyperlipidemia Lipitor 80 mg nightly -Chronic congestive heart failure systolic dysfunction EF 40 to 45% Follow cardiovascular status. IV hydration given IV fluids being discontinued. -Peripheral neuropathy Given kidney injury will cut back dose of Neurontin -Chronic bladder outflow obstruction/BPH Flomax 0.4 mg a day. 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 Follow Accu-Cheks -Full code IV Zosyn. Lengthy discussion with the daughter at the bedside. Surgery consulted. Advance care planning [November 17, 2023] This was discussed lives with daughter at the bedside who cares for the patient. Patient has multiple comorbidities. At this point patient remain full code. Daughter wishes discussed this with her brother. Understands what full code means. Time spent with this about 25 minutes 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 Date of last positivie culture/infection: 10/28/22 MDRO Source:: Blood Past Surgical History: Heart Catheterization Additional Past Surgical History / Comment(s): bilateral great toes amputated, 2nd toe lt foot partial amputation, multiple debridements of venous ulcers, colonoscopy, surgery as a child for undescended testicle., ABOVE THE KNEE AMPUTATION RIGHT LEG (JUNE 2017-[facility]) Past Anesthesia/Blood Transfusion Reactions: No Reported Reaction Date of Last Stent Placement:: 10/17/2022 Past Psychological History: Anxiety, Depression Smoking Status: Former smoker Past Alcohol Use History: Unable to Obtain Past Drug Use History: Unable to Obtain
--- NOTE | 2023-11-18 21:56 | P.PN ---
Progress Note - Text Progress Note Date: 11/18/23 Chief Complaint: Altered mentation This is a 73-year-old patient, follows with visiting physicians Dr. Rene. Chronic stable medical conditions include diabetes, GERD, hypertension, hyperlipidemia, chronic venous stasis wounds. Arthritis. Neuropathy. Bilateral above-knee amputation. CHF EF 40 to 45%, dementia, home oxygen 2 L chronic Davidson catheter. Patient is taking care of by his daughter. Per the EMS report 70 9 PM patient became unresponsive. From his normal alert self. She tried sternal rubs with no real success. Patient had not had a bowel movement for 16 days. Per PCP magnesium citrate was ordered. Also for last several days poor oral intake. Had a recent pneumonia and a UTI. Temperature recorded was 101. Was found to be rather unkempt and fall ordered by the EMS. They gave IV fluids. EKG showed sinus tachycardia. In the ER patient somewhat delirious. Really cannot give any history. No family at the bedside. On October 04 950 cc of dark bloody fluid from the right pleural space was taken out by Dr. BLANC. ER physician called Dr. BLANC from pulmonary regarding the large right hydropneumothorax. Present time nothing further was to be done. November 10: Patient was seen in the ER earlier today. On IV cefepime. A bit more awake. Though still delirious. Dry oral cavity. Oral tolerate ordered. NG tube for medications. Some improvement in renal function. Febrile November 11: Patient still delirious but doing a bit better. . Able to take his medications. Oral hygiene was done yesterday. Diet is being changed to pured. No fever since yesterday evening. Continue IV Zosyn. Sodium up to 151. Increase IV fluids. Attempted to speak. November 12: Patient remained lethargic. Delirious. Sodium is gone to 158. Blood glucose low. Decreased oral intake. Will change IV fluids to D5W at 150 cc an hour. On IV Zosyn. No further fever. November 13: Doing better. Sodium has come down. Accu-Cheks are better running high. Change IV fluids to D5.45. Cut back IV fluid rate. Throat secretions. For deep suctioning. Tolerating pured diet. November 14: Ate fairly okay yesterday. Not keen for breakfast today. No gurgling in the chest. Remains on IV Zosyn. Tired. November 15: Awake. Laying in bed. Patient had most of his pured lunch. I also fed him a whole chocolate pured container. Drinking fluids. Afebrile. Patient on Diflucan for candiduria. Will DC D5.45. Change Levemir to 20 units at night. Sacral wound vascular is consulted. He will be reminded about the consult November 16: Discussed with Dr. Haddad. Patient has a deeper wound close to rectum. General surgery consulted. Earlier today care was discussed in detail with patient daughter at the bedside. Will hold off discharge for now. Until further evaluation by surgery. Will probably need debridement. Wound appears to be chronic November 17: Patient was seen by me this morning. Daughter at the bedside. Patient will be taken to the OR by surgery tomorrow. Questions answered. Active Medications Acetaminophen (Acetaminophen Tab 325 Mg Tab) 650 mg PO Q6HR PRN PRN Reason: Mild Pain or Fever > 100.5 Last Admin: 11/16/23 12:31 Dose: 650 mg Hydrocodone Bitart/Acetaminophen (Hydrocodone/Apap 7.5-325mg 1 Each Tab) 1 each PO Q6HR PRN PRN Reason: Pain Last Admin: 11/18/23 18:52 Dose: 1 each Amlodipine Besylate (Amlodipine 10 Mg Tab) 10 mg PO DAILY [facility] Last Admin: 11/18/23 09:08 Dose: 10 mg Atorvastatin Calcium (Atorvastatin 80 Mg Tab) 80 mg PO HS [facility] Last Admin: 11/18/23 21:48 Dose: 80 mg Clopidogrel Bisulfate (Clopidogrel 75 Mg Tab) 75 mg PO DAILY [facility] Last Admin: 11/18/23 09:13 Dose: 75 mg Dextrose/Water (Dextrose 50% Syringe 50 Ml) 25 ml IVP PER PROTOCOL PRN; Protocol PRN Reason: Hypoglycemia Last Admin: 11/13/23 06:10 Dose: 25 ml Dextrose/Water (Dextrose 50% Syringe 50 Ml) 50 ml IVP PER PROTOCOL PRN; Protocol PRN Reason: Hypoglycemia Enoxaparin Sodium (Enoxaparin 40 Mg/0.4 Ml Syringe) 40 mg SQ DAILY [facility] Last Admin: 11/18/23 09:09 Dose: 40 mg Fluconazole (Fluconazole 100 Mg Tab) 100 mg PO DAILY [facility]; Protocol Last Admin: 11/18/23 09:10 Dose: 100 mg Gabapentin (Gabapentin 300 Mg Cap) 300 mg PO BID [facility] Last Admin: 11/18/23 21:48 Dose: 300 mg Hydromorphone HCl (Hydromorphone 0.5 Mg/0.5 Ml Syringe) 0.5 mg IVP Q5M PRN PRN Reason: Phase 1 or 2 - Pain Control Stop: 11/19/23 23:00 Piperacillin Sod/Tazobactam (Sod 3.375 gm/ Sodium Chloride) 100 mls @ 25 mls/hr IVPB Q8H [facility]; Protocol Last Admin: 11/18/23 21:49 Dose: 25 mls/hr Lactated Ringer's (Lactated Ringers) 1,000 mls @ 20 mls/hr IV .Q24H [facility] Last Admin: 11/18/23 21:49 Dose: 20 mls/hr Insulin Aspart (Insulin Aspart (Novolog) 100 Unit/Ml Vial) 0 unit SQ AC-TID [facility]; Protocol Last Admin: 11/18/23 19:01 Dose: Not Given Insulin Detemir (Insulin Detemir (Levemir) 100 Unit/Ml Syr) 20 unit SQ HS [facility] Last Admin: 11/18/23 21:45 Dose: Not Given Magnesium Citrate (Magnesium Citrate 296 Ml Bottle) 296 ml PO RING [facility] Last Admin: 11/15/23 17:18 Dose: 296 ml Miscellaneous Information (Potassium Replacement Protocol 1 Each Misc) 1 each MISCELLANE DAILY PRN; Protocol PRN Reason: Per Protocol Multi-Ingredient Ointment (Zinc Oxide 20% Oint 28.4 Gm Tube) 1 applic TOPICAL BID PRN; Protocol PRN Reason: Wound Healing Last Admin: 11/17/23 08:52 Dose: 1 applic Naloxone HCl (Naloxone 0.4 Mg/Ml 1 Ml Vial) 0.2 mg IV Q2M PRN PRN Reason: Opioid Reversal Nystatin (Nystatin 100,000 Unit/Gm Powd 15 Gm) 1 applic TOPICAL BID [facility]; Protocol Last Admin: 11/18/23 21:49 Dose: 1 applic Ondansetron HCl (Ondansetron 4 Mg/2 Ml Vial) 4 mg IVP Q8HR PRN PRN Reason: Nausea And Vomiting Senna (Sennosides 8.6 Mg Tab) 8.6 mg PO DAILY [facility] Last Admin: 11/18/23 09:10 Dose: 8.6 mg Sodium Bicarbonate (Sodium Bicarbonate Tab 650 Mg Tab) 650 mg PO BID [facility] Last Admin: 11/18/23 21:48 Dose: 650 mg Tamsulosin HCl (Tamsulosin 0.4 Mg Cap.Er.24h) 0.4 mg PO DAILY [facility] Last Admin: 11/18/23 09:10 Dose: Not Given Trazodone HCl (Trazodone Hcl 50 Mg Tab) 50 mg PO HS [facility] Last Admin: 11/18/23 21:49 Dose: 50 mg Social history: Former smoker. Cared for by his daughter. Physical examination: VITAL SIGNS: 98.6, 61, 20, 152 x 53, 97% room air GENERAL: Laying in bed. Tired EYES: [Pupils equal. Conjunctiva pale HEENT: External appearance of nose and ears normal, oral cavity less dry mucous membrane. NECK: JVD not raised; masses not palpable. HEART: First and second heart sounds are normal; no edema. LUNGS: Respiratory rate increased; decreased breath sounds. ABDOMEN: Soft, nontender, liver spleen not palpable, no masses palpable. Davidson catheter PSYCH: More awake. Answer some questions MUSCULOSKELETAL:No Clubbing/cyanosis;muscles-grossly intact. Sacral decubitus wound NEUROLOGICAL: [Cranial nerves grossly intact; no facial asymmetry, moving all 4 limbs. Tolerating pured diet INVESTIGATIONS, reviewed in the clinical context: November 17: White count 9.4 hemoglobin 8.3 potassium 4 creatinine zero 1.03 November 13: White count 13 hemoglobin 8.7 sodium 146 potassium 3.3 BUN 36 creatinine 1.12 November 12: White count 15.6 hemoglobin 9.4 platelets 323 sodium 158 potassium 3 BUN 42 creatinine 1.31 glucose 55 November 11: White count 12.9 hemoglobin 9.8 platelets 305 sodium 151 potassium 3 BUN 40 creatinine 1.3 Urine culture: Negative November 10: White count 16 hemoglobin 10.2 platelets 339 sodium 149 potassium 2.5 BUN 44 creatinine 1.38 November 10, 2023: White count 7.8 hemoglobin 11.7 platelets 471 sodium 146 potassium 3.3 BUN 48 creatinine 1.78 lactic acid 2.5 UA positive for leukoesterase, WBC 111 nitrite positive [place] Urine drug screen: Positive for opiates benzodiazepine Influenza type A, type B, RSV, COVID-19: Not detected EKG tracing personally reviewed by me-intraventricular block. Ectopic atrial focus Chest abdomen pelvis CT: Large right hydropneumothorax. Consolidation in the right lung. Patchy infiltrate in the posterior segment left lower lobe. Extensive retained fecal debris. Atrophy of the pancreas. Stable adenoma/hyperplasia of the adrenal gland. Left kidney atrophic DJD changes of spine. Cardiomegaly Previous labs: Creatinine 0.8 on October 06, 2023 Assessment plan: -Severe sepsis. Source pneumonia, UTI. Rule out empyema: Improving IV Zosyn. Urine culture-negative. Blood culture-g Staphylococcus hominis likely contaminant -Blood cultures positive for Staphylococcus hominis, likely contaminant -Sacral decubitus wound. Unstageable. For debridement of wound with Dr. Alves from general surgery -Right-sided large hydropneumothorax. With possible trapped lung On October 04 950 cc of dark bloody fluid from the right pleural space was aspirated by Dr. BLANC Pulmonary Dr. BLANC following -Hypernatremia from free water deficit: Corrected Miguel Ángel IV fluids -Lactic acidosis from sepsis -Pneumonia multilobar suspect gram-negative organism IV Zosyn -Acute UTI with cystitis secondary to Davidson catheter IV Zosyn -Acute delirium metabolic encephalopathy multifactorial: Improving -Acute kidney injury combination of prerenal and ATN multifactorial: Improved Hold Aldactone. Cut back dose of Neurontin. IV fluids. Admission creatinine 1.78. Now down to 1.12 -Hyperlipidemia Lipitor 80 mg nightly -Chronic congestive heart failure systolic dysfunction EF 40 to 45% Follow cardiovascular status. IV hydration given IV fluids being discontinued. -Peripheral neuropathy Given kidney injury will cut back dose of Neurontin -Chronic bladder outflow obstruction/BPH Flomax 0.4 mg a day. 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 Follow Accu-Cheks -Full code Advance care planning [November 17, 2023] This was discussed lives with daughter at the bedside who cares for the patient. Patient has multiple comorbidities. At this point patient remain full code. Daughter wishes discussed this with her brother. Understands what full code means. Time spent with this about 25 minutes For surgical debridement tomorrow. Discussed with patient and daughter at the bedside. 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 Date of last positivie culture/infection: 10/28/22 MDRO Source:: Blood Past Surgical History: Heart Catheterization Additional Past Surgical History / Comment(s): bilateral great toes amputated, 2nd toe lt foot partial amputation, multiple debridements of venous ulcers, colonoscopy, surgery as a child for undescended testicle., ABOVE THE KNEE AMPUTATION RIGHT LEG (JUNE 2017-[facility]) Past Anesthesia/Blood Transfusion Reactions: No Reported Reaction Date of Last Stent Placement:: 10/17/2022 Past Psychological History: Anxiety, Depression Smoking Status: Former smoker Past Alcohol Use History: Unable to Obtain Past Drug Use History: Unable to Obtain
[2023-11-19 03:11] VITALS: RESP 16
[2023-11-19 05:14] LABS: Glucose,Whole Blood 87 mg/dL (70-110)
[2023-11-19] MEDS ORDERED: HYDROmorphone 0.5 MG/0.5 ML SYRINGE IVP PRN (07:00)
[2023-11-19 11:36] LABS: Glucose,Whole Blood 118 mg/dL (70-110)
--- NOTE | 2023-11-19 12:11 | P.PN ---
Progress Note - Text Progress Note Date: 11/19/23 MARY. Resting comfortable VSS General-NAD Abdomen-soft, NTND Sacrum-Nonstageable Sacral Decub -Sacral Decubitus Ulcer: Ulcer is nonstageable and possible involving rectum. Will plan for debridement and all indicated procedures in the Operating Room 11/18 pending patients clinical course. Do not think patient will be able to tolerate bedside debridement. -Severe sepsis. Source pneumonia, UTI. Rule out empyema IV Zosyn. -Right-sided large hydropneumothorax. With possible trapped lung -Lactic acidosis from sepsis -Pneumonia multilobar suspect gram-negative organism IV Zosyn -Acute UTI with cystitis secondary to Davidson catheter IV Zosyn Jt Alves DO [facility] [phone]
[2023-11-19] MEDS: IV FLUID CONTINUATION 900 ML IV ONE (14:49)
[2023-11-19 15:06] LABS: Glucose,Whole Blood 134 mg/dL (70-110)
--- NOTE | 2023-11-19 15:15 | P.PN ---
Subjective Progress Note Date: 11/18/23 Principal diagnosis: Reason for follow up with UTI sacral pressure ulcer possible pneumonia Patient is a 73-year-old male with a past medical history significant for diabetes mellitus hypertension hyperlipidemia osteoarthritis did have history of diabetic foot infection and is status post bilateral [id number] amputation, patient has been brought to the hospital concerning for increasing confusion fever failing outpatient treatment for pneumonia and UTI. On today's evaluation that is 11/18/2023, patient has been afebrile, patient is breathing comfortably and is currently on room air, patient denies having any significant cough no chest pain shortness of breath, patient denies nausea vomiting or abdominal pain no diarrhea has been reported by nursing staff. Patient white count is 11.4, creatinine 1.03 Objective - Vital Signs Vital signs: Vital Signs Temp 98 F 11/18/23 08:00 Pulse 64 11/18/23 08:00 Resp 16 11/18/23 08:00 BP 173/54 11/18/23 08:00 Pulse Ox 99 11/18/23 08:00 FiO2 Intake & Output 11/17/23 11/18/23 11/18/23 18:59 06:59 18:59 Intake Total 1308 Output Total 1450 100 Balance 1308 -1450 -100 Weight 91.5 kg Intake: Oral 1308 Output: Urine 1450 100 Other: Voiding Method Indwelling Catheter Indwelling Catheter # Bowel Movements 0 - Exam GENERAL DESCRIPTION: An elderly male lying in bed in no distress RESPIRATORY SYSTEM: Unlabored breathing , coarse breath sounds at bases HEART: S1 S2 regular rate and rhythm , ABDOMEN: Soft , no tenderness EXTREMITIES: Bilateral BKA stump with no swelling or redness - Labs CBC & Chem 7: 11/18/23 07:31 11/18/23 07:31 Labs: Abnormal Lab Results - Last 24 Hours (Table) 11/17/23 11/17/23 11/18/23 Range/Units 16:40 20:19 07:31 WBC 11.4 H (3.8-10.6) k/uL RBC 3.24 L (4.30-5.90) m/uL Hgb 8.3 L (13.0-17.5) gm/dL Hct 26.6 L (39.0-53.0) % RDW 16.6 H (11.5-15.5) % Neutrophils # 8.8 H (1.3-7.7) k/uL Lymphocytes # 0.8 L (1.0-4.8) k/uL Monocytes # 1.3 H (0-1.0) k/uL Chloride (98-107) mmol/L BUN (9-20) mg/dL POC Glucose (mg/dL) 205 H 228 H (70-110) mg/dL Calcium (8.4-10.2) mg/dL Alkaline Phosphatase (38-126) U/L Total Protein (6.3-8.2) g/dL Albumin (3.5-5.0) g/dL 11/18/23 Range/Units 07:31 WBC (3.8-10.6) k/uL RBC (4.30-5.90) m/uL Hgb (13.0-17.5) gm/dL Hct (39.0-53.0) % RDW (11.5-15.5) % Neutrophils # (1.3-7.7) k/uL Lymphocytes # (1.0-4.8) k/uL Monocytes # (0-1.0) k/uL Chloride 117 H (98-107) mmol/L BUN 40 H (9-20) mg/dL POC Glucose (mg/dL) (70-110) mg/dL Calcium 7.7 L (8.4-10.2) mg/dL Alkaline Phosphatase 232 H (38-126) U/L Total Protein 5.2 L (6.3-8.2) g/dL Albumin 2.2 L (3.5-5.0) g/dL Assessment and Plan (1) Sepsis Current Visit: Yes Status: Acute Code(s): A41.9 - SEPSIS, UNSPECIFIED ORGANISM SNOMED Code(s): 16082052 (2) Urinary tract infection Current Visit: Yes Status: Acute Code(s): N39.0 - URINARY TRACT INFECTION, SITE NOT SPECIFIED SNOMED Code(s): 60972420 (3) Pneumonia Current Visit: No Status: Acute Code(s): J18.9 - PNEUMONIA, UNSPECIFIED ORGANISM SNOMED Code(s): 352192966 Plan: 1patient was in the hospital with sepsis in this patient who did have fever tachycardia elevated white count source is likely combination of catheters has been tach infection and is concern for large hydropneumothorax and possible pneumonia questionable aspiration or gram-negative less likely gram-positive pathogen, patient has received adequate Zosyn and can be discontinued on discharge 2-positive blood culture with coagulase-negative staph possible contamination, blood cultures repeated 3-patient did have improvement in his fever pattern and white count has normalized patient to continue with the Diflucan 4-patient noticed to have worsening of his sacral wound surgery has been consulted awaiting for possible debridement Dictation was produced using [employer] dictation software. please excuse any grammatical, word or spelling errors. Time with Patient: Less than 30
--- NOTE | 2023-11-19 15:15 | P.PN ---
Subjective Progress Note Date: 11/19/23 Principal diagnosis: Reason for follow up with UTI sacral pressure ulcer possible pneumonia Patient is a 73-year-old male with a past medical history significant for diabetes mellitus hypertension hyperlipidemia osteoarthritis did have history of diabetic foot infection and is status post bilateral lvbph-jhr-lzts amputation, patient has been brought to the hospital concerning for increasing confusion fever failing outpatient treatment for pneumonia and UTI. On today's evaluation that is 11/19/2023, Patient is afebrile this morning patient denies having any chest pain shortness of breath did have occasional cough, the patient is breathing comfortably and currently on room air, patient denies any abdominal pain no diarrhea no nausea no vomiting, No new lab has been obtained today Objective - Vital Signs Vital signs: Vital Signs Temp 98.8 F 11/19/23 14:49 Pulse 69 11/19/23 14:49 Resp 16 11/19/23 14:49 BP 170/74 11/19/23 14:49 Pulse Ox 98 11/19/23 14:49 FiO2 Intake & Output 11/18/23 11/19/23 11/19/23 18:59 06:59 18:59 Intake Total 500 1480 Output Total 3240 138 0228 Balance -500 780 -1200 Weight 91.5 kg 91 kg Intake: IV 100 Piperacillin-Tazobactam 3 100 .375 gm In Sodium Chloride 0.9% 100 ml @ 25 mls/hr IVPB Q8H [facility] Rx#: [id number] Oral 400 1480 Output: Urine 0519 206 4323 Other: Voiding Method Indwelling Catheter Indwelling Catheter Indwelling Catheter - Exam GENERAL DESCRIPTION: An elderly male lying in bed in no distress RESPIRATORY SYSTEM: Unlabored breathing , coarse breath sounds at bases HEART: S1 S2 regular rate and rhythm , ABDOMEN: Soft , no tenderness EXTREMITIES: Bilateral BKA stump with no swelling or redness - Labs CBC & Chem 7: 11/18/23 07:31 11/18/23 07:31 Labs: Abnormal Lab Results - Last 24 Hours (Table) 11/18/23 11/18/23 11/18/23 Range/Units 16:53 16:55 17:01 POC Glucose (mg/dL) 63 L 63 L 64 L (70-110) mg/dL 11/18/23 11/18/23 11/19/23 Range/Units 17:28 20:03 11:34 POC Glucose (mg/dL) 116 H 272 H 118 H (70-110) mg/dL 11/19/23 Range/Units 15:05 POC Glucose (mg/dL) 134 H (70-110) mg/dL Microbiology - Last 24 Hours (Table) 11/17/23 09:01 Blood Culture - Preliminary Blood Assessment and Plan (1) Sepsis Current Visit: Yes Status: Acute Code(s): A41.9 - SEPSIS, UNSPECIFIED ORGANISM SNOMED Code(s): 71551268 (2) Urinary tract infection Current Visit: Yes Status: Acute Code(s): N39.0 - URINARY TRACT INFECTION, SITE NOT SPECIFIED SNOMED Code(s): 12684475 (3) Pneumonia Current Visit: No Status: Acute Code(s): J18.9 - PNEUMONIA, UNSPECIFIED ORGANISM SNOMED Code(s): 146074166 Plan: 1patient was in the hospital with sepsis in this patient who did have fever tachycardia elevated white count source is likely combination of catheters has been tach infection and is concern for large hydropneumothorax and possible pneumonia questionable aspiration or gram-negative less likely gram-positive pathogen, patient has received adequate Zosyn and can be discontinued on discharge 2-positive blood culture with coagulase-negative staph possible contamination, blood cultures repeated 3-patient did have improvement in his fever pattern and white count has normalized patient to continue with the Diflucan 4-patient noticed to have worsening of his sacral wound surgery has been consulted awaiting for possible debridement scheduled for this afternoon would recommend any deep cultures to be obtained if evidence of infection Dictation was produced using [employer] dictation software. please excuse any grammatical, word or spelling errors. Time with Patient: Less than 30
[2023-11-19] MEDS ORDERED: MIDAZOLAM 2 MG/2 ML VIAL ONE (15:28)
[2023-11-19] MEDS ORDERED: SUGAMMADEX SODIUM 200 MG/2 ML SDV IV ONE (15:28)
[2023-11-19] MEDS ORDERED: LIDOCAINE 1% INJ 10MG/ML (20 ML MDV) ONE (15:28)
[2023-11-19] MEDS ORDERED: ROCURONIUM 10 MG/ML (5 ML VIAL) IV ONE (15:28)
[2023-11-19] MEDS ORDERED: PROPOFOL 10 MG/ML 20 ML VIAL IV ONE (15:28)
[2023-11-19 17:37] LABS: Glucose,Whole Blood 127 mg/dL (70-110)
--- NOTE | 2023-11-19 18:34 | P.OP ---
Date of Procedure: 11/19/23 Preoperative Diagnosis: Nonstageable Sacral Decubitus Ulcer Postoperative Diagnosis: Nonstageable Sacral Decubitus Ulcer Procedure(s) Performed: Sharp Excisional Debridement Decubitus Ulcer Anesthesia: MAC Surgeon: Jt Alves Estimated Blood Loss (ml): 50 Pathology: none sent Condition: stable Disposition: PACU Description of Procedure: The patient was taken to the operating room and placed in prone position after anesthesia was given. The sacral area was prepped and draped. A timeout was performed. The area was probed and there was no communication with the rectal area. Sharp excisional debridement was performed with an #11 blade down to the muscle level until healthy bleeding tissue was encountered. This was performed in 4 distinct areas. The bleeding was controlled with cautery. Once the devitalized tissue was removed and bleeding was controlled, a sterile dressing was applied.
[2023-11-19 19:59] LABS: Glucose,Whole Blood 104 mg/dL (70-110)
--- NOTE | 2023-11-19 20:43 | P.PN ---
Progress Note - Text Progress Note Date: 11/19/23 Chief Complaint: Altered mentation This is a 73-year-old patient, follows with visiting physicians Dr. Rene. Chronic stable medical conditions include diabetes, GERD, hypertension, hyperlipidemia, chronic venous stasis wounds. Arthritis. Neuropathy. Bilateral above-knee amputation. CHF EF 40 to 45%, dementia, home oxygen 2 L chronic Davidson catheter. Patient is taking care of by his daughter. Per the EMS report 70 9 PM patient became unresponsive. From his normal alert self. She tried sternal rubs with no real success. Patient had not had a bowel movement for 16 days. Per PCP magnesium citrate was ordered. Also for last several days poor oral intake. Had a recent pneumonia and a UTI. Temperature recorded was 101. Was found to be rather unkempt and fall ordered by the EMS. They gave IV fluids. EKG showed sinus tachycardia. In the ER patient somewhat delirious. Really cannot give any history. No family at the bedside. On October 04 950 cc of dark bloody fluid from the right pleural space was taken out by Dr. BLANC. ER physician called Dr. BLANC from pulmonary regarding the large right hydropneumothorax. Present time nothing further was to be done. November 10: Patient was seen in the ER earlier today. On IV cefepime. A bit more awake. Though still delirious. Dry oral cavity. Oral tolerate ordered. NG tube for medications. Some improvement in renal function. Febrile November 11: Patient still delirious but doing a bit better. . Able to take his medications. Oral hygiene was done yesterday. Diet is being changed to pured. No fever since yesterday evening. Continue IV Zosyn. Sodium up to 151. Increase IV fluids. Attempted to speak. November 12: Patient remained lethargic. Delirious. Sodium is gone to 158. Blood glucose low. Decreased oral intake. Will change IV fluids to D5W at 150 cc an hour. On IV Zosyn. No further fever. November 13: Doing better. Sodium has come down. Accu-Cheks are better running high. Change IV fluids to D5.45. Cut back IV fluid rate. Throat secretions. For deep suctioning. Tolerating pured diet. November 14: Ate fairly okay yesterday. Not keen for breakfast today. No gurgling in the chest. Remains on IV Zosyn. Tired. November 15: Awake. Laying in bed. Patient had most of his pured lunch. I also fed him a whole chocolate pured container. Drinking fluids. Afebrile. Patient on Diflucan for candiduria. Will DC D5.45. Change Levemir to 20 units at night. Sacral wound vascular is consulted. He will be reminded about the consult November 16: Discussed with Dr. Haddad. Patient has a deeper wound close to rectum. General surgery consulted. Earlier today care was discussed in detail with patient daughter at the bedside. Will hold off discharge for now. Until further evaluation by surgery. Will probably need debridement. Wound appears to be chronic November 17: Patient was seen by me this morning. Daughter at the bedside. Patient will be taken to the OR by surgery tomorrow. Questions answered. November 18: Patient underwent debridement of the wound by Dr. Alves. No communication of the rectum. Patient is otherwise stable. Active Medications Acetaminophen (Acetaminophen Tab 325 Mg Tab) 650 mg PO Q6HR PRN PRN Reason: Mild Pain or Fever > 100.5 Last Admin: 11/16/23 12:31 Dose: 650 mg Hydrocodone Bitart/Acetaminophen (Hydrocodone/Apap 7.5-325mg 1 Each Tab) 1 each PO Q6HR PRN PRN Reason: Pain Last Admin: 11/19/23 10:33 Dose: 1 each Amlodipine Besylate (Amlodipine 10 Mg Tab) 10 mg PO DAILY [facility] Last Admin: 11/19/23 10:03 Dose: 10 mg Atorvastatin Calcium (Atorvastatin 80 Mg Tab) 80 mg PO HS [facility] Last Admin: 11/19/23 20:05 Dose: 80 mg Clopidogrel Bisulfate (Clopidogrel 75 Mg Tab) 75 mg PO DAILY [facility] Last Admin: 11/19/23 18:11 Dose: Not Given Dextrose/Water (Dextrose 50% Syringe 50 Ml) 25 ml IVP PER PROTOCOL PRN; Protocol PRN Reason: Hypoglycemia Last Admin: 11/13/23 06:10 Dose: 25 ml Dextrose/Water (Dextrose 50% Syringe 50 Ml) 50 ml IVP PER PROTOCOL PRN; Protocol PRN Reason: Hypoglycemia Enoxaparin Sodium (Enoxaparin 40 Mg/0.4 Ml Syringe) 40 mg SQ DAILY [facility] Last Admin: 11/19/23 18:10 Dose: Not Given Fluconazole (Fluconazole 100 Mg Tab) 100 mg PO DAILY [facility]; Protocol Last Admin: 11/19/23 10:03 Dose: 100 mg Gabapentin (Gabapentin 300 Mg Cap) 300 mg PO BID [facility] Last Admin: 11/19/23 20:05 Dose: 300 mg Hydromorphone HCl (Hydromorphone 0.5 Mg/0.5 Ml Syringe) 0.5 mg IVP Q5M PRN PRN Reason: Phase 1 or 2 - Pain Control Stop: 11/19/23 23:00 Piperacillin Sod/Tazobactam (Sod 3.375 gm/ Sodium Chloride) 100 mls @ 25 mls/hr IVPB Q8H [facility]; Protocol Last Admin: 11/19/23 20:06 Dose: 25 mls/hr Lactated Ringer's (Lactated Ringers) 1,000 mls @ 20 mls/hr IV .Q24H [facility] Last Admin: 11/19/23 15:19 Dose: Not Given Insulin Aspart (Insulin Aspart (Novolog) 100 Unit/Ml Vial) 0 unit SQ AC-TID [facility]; Protocol Last Admin: 11/19/23 18:11 Dose: Not Given Insulin Detemir (Insulin Detemir (Levemir) 100 Unit/Ml Syr) 20 unit SQ HS [facility] Last Admin: 11/18/23 21:45 Dose: Not Given Magnesium Citrate (Magnesium Citrate 296 Ml Bottle) 296 ml PO RING [facility] Last Admin: 11/15/23 17:18 Dose: 296 ml Miscellaneous Information (Potassium Replacement Protocol 1 Each Misc) 1 each MISCELLANE DAILY PRN; Protocol PRN Reason: Per Protocol Multi-Ingredient Ointment (Zinc Oxide 20% Oint 28.4 Gm Tube) 1 applic TOPICAL BID PRN; Protocol PRN Reason: Wound Healing Last Admin: 11/19/23 10:05 Dose: 1 applic Naloxone HCl (Naloxone 0.4 Mg/Ml 1 Ml Vial) 0.2 mg IV Q2M PRN PRN Reason: Opioid Reversal Nystatin (Nystatin 100,000 Unit/Gm Powd 15 Gm) 1 applic TOPICAL BID [facility]; Protocol Last Admin: 11/19/23 20:05 Dose: 1 applic Ondansetron HCl (Ondansetron 4 Mg/2 Ml Vial) 4 mg IVP Q8HR PRN PRN Reason: Nausea And Vomiting Senna (Sennosides 8.6 Mg Tab) 8.6 mg PO DAILY [facility] Last Admin: 11/19/23 18:11 Dose: Not Given Sodium Bicarbonate (Sodium Bicarbonate Tab 650 Mg Tab) 650 mg PO BID [facility] Last Admin: 11/19/23 20:05 Dose: 650 mg Tamsulosin HCl (Tamsulosin 0.4 Mg Cap.Er.24h) 0.4 mg PO DAILY [facility] Last Admin: 11/19/23 10:03 Dose: 0.4 mg Trazodone HCl (Trazodone Hcl 50 Mg Tab) 50 mg PO HS [facility] Last Admin: 11/19/23 20:05 Dose: 50 mg Social history: Former smoker. Cared for by his daughter. Physical examination: VITAL SIGNS: 98.8, 60, 16, 149 x 66, 100% on 3 L GENERAL: Laying in bed. Tired EYES: [Pupils equal. Conjunctiva pale HEENT: External appearance of nose and ears normal, oral cavity less dry mucous membrane. NECK: JVD not raised; masses not palpable. HEART: First and second heart sounds are normal; no edema. LUNGS: Respiratory rate increased; decreased breath sounds. ABDOMEN: Soft, nontender, liver spleen not palpable, no masses palpable. Davidson catheter PSYCH: More awake. Answer some questions MUSCULOSKELETAL:No Clubbing/cyanosis;muscles-grossly intact. Sacral decubitus wound NEUROLOGICAL: [Cranial nerves grossly intact; no facial asymmetry, moving all 4 limbs. Tolerating pured diet INVESTIGATIONS, reviewed in the clinical context: November 17: White count 9.4 hemoglobin 8.3 potassium 4 creatinine zero 1.03 November 13: White count 13 hemoglobin 8.7 sodium 146 potassium 3.3 BUN 36 creatinine 1.12 November 12: White count 15.6 hemoglobin 9.4 platelets 323 sodium 158 potassium 3 BUN 42 creatinine 1.31 glucose 55 November 11: White count 12.9 hemoglobin 9.8 platelets 305 sodium 151 potassium 3 BUN 40 creatinine 1.3 Urine culture: Negative November 10: White count 16 hemoglobin 10.2 platelets 339 sodium 149 potassium 2.5 BUN 44 creatinine 1.38 November 10, 2023: White count 7.8 hemoglobin 11.7 platelets 471 sodium 146 potassium 3.3 BUN 48 creatinine 1.78 lactic acid 2.5 UA positive for leukoesterase, WBC 111 nitrite positive [place] Urine drug screen: Positive for opiates benzodiazepine Influenza type A, type B, RSV, COVID-19: Not detected EKG tracing personally reviewed by me-intraventricular block. Ectopic atrial focus Chest abdomen pelvis CT: Large right hydropneumothorax. Consolidation in the right lung. Patchy infiltrate in the posterior segment left lower lobe. Extensive retained fecal debris. Atrophy of the pancreas. Stable adenoma/hyperplasia of the adrenal gland. Left kidney atrophic DJD changes of spine. Cardiomegaly Previous labs: Creatinine 0.8 on October 06, 2023 Assessment plan: -Severe sepsis. Source pneumonia, UTI. Rule out empyema: Improving IV Zosyn. Urine culture-negative. Blood culture-g Staphylococcus hominis likely contaminant -Blood cultures positive for Staphylococcus hominis, likely contaminant -Sacral decubitus wound. Unstageable. Debridement done November 18: Dr. Alves from general surgery -Right-sided large hydropneumothorax. With possible trapped lung On October 04 950 cc of dark bloody fluid from the right pleural space was a spirated by Dr. BLANC Pulmonary Dr. BLANC following -Hypernatremia from free water deficit: Corrected Miguel Ángel IV fluids -Lactic acidosis from sepsis -Pneumonia multilobar suspect gram-negative organism IV Zosyn -Acute UTI with cystitis secondary to Davidson catheter IV Zosyn -Acute delirium metabolic encephalopathy multifactorial: Improving -Acute kidney injury combination of prerenal and ATN multifactorial: Improved Hold Aldactone. Cut back dose of Neurontin. IV fluids. Admission creatinine 1.78. Now down to 1.12 -Hyperlipidemia Lipitor 80 mg nightly -Chronic congestive heart failure systolic dysfunction EF 40 to 45% Follow cardiovascular status. IV hydration given IV fluids being discontinued. -Peripheral neuropathy Given kidney injury will cut back dose of Neurontin -Chronic bladder outflow obstruction/BPH Flomax 0.4 mg a day. 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 Follow Accu-Cheks -Full code Advance care planning [November 17, 2023] This was discussed lives with daughter at the bedside who cares for the patient. Patient has multiple comorbidities. At this point patient remain full code. Daughter wishes discussed this with her brother. Understands what full code means. Time spent with this about 25 minutes Continue current medication treatment plan. Hopefully can be discharged tomorrow.. 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 Date of last positivie culture/infection: 10/28/22 MDRO Source:: Blood Past Surgical History: Heart Catheterization Additional Past Surgical History / Comment(s): bilateral great toes amputated, 2nd toe lt foot partial amputation, multiple debridements of venous ulcers, colonoscopy, surgery as a child for undescended testicle., ABOVE THE KNEE AMPUTATION RIGHT LEG (JUNE 2017-[facility]) Past Anesthesia/Blood Transfusion Reactions: No Reported Reaction Date of Last Stent Placement:: 10/17/2022 Past Psychological History: Anxiety, Depression Smoking Status: Former smoker Past Alcohol Use History: Unable to Obtain Past Drug Use History: Unable to Obtain
[2023-11-19 23:14] LABS: Glucose,Whole Blood 103 mg/dL (70-110)
[2023-11-20 06:02] LABS: Glucose,Whole Blood 98 mg/dL (70-110)
[2023-11-20 10:53] VITALS: BP 165/61; PULSE 62; TEMP 97.5
[2023-11-20 11:43] LABS: Glucose,Whole Blood 116 mg/dL (70-110)
--- NOTE | 2023-11-20 13:05 | P.PN ---
Subjective Progress Note Date: 11/20/23 Principal diagnosis: Reason for follow up with UTI sacral pressure ulcer possible pneumonia Patient is a 73-year-old male with a past medical history significant for diabetes mellitus hypertension hyperlipidemia osteoarthritis did have history of diabetic foot infection and is status post bilateral hwvva-yuz-ueod amputation, patient has been brought to the hospital concerning for increasing confusion fever failing outpatient treatment for pneumonia and UTI. On today's evaluation that is 11/20/2023,the patient denies any fever or any chills, patient is breathing comfortably on 2 L nasal cannula oxygen, the patient denies chest pain shortness of breath and no significant cough, patient denies abdominal pain, no nausea vomiting did have some diarrhea. No new lab has been obtained today blood culture repeat has been negative Objective - Vital Signs Vital signs: Vital Signs Temp 97.5 F L 11/20/23 08:40 Pulse 62 11/20/23 08:40 Resp 16 11/20/23 08:40 BP 165/61 11/20/23 08:40 Pulse Ox 98 11/20/23 08:40 FiO2 Intake & Output 11/19/23 11/20/23 11/20/23 18:59 06:59 18:59 Intake Total 200 Output Total 1515 600 Balance -1315 -600 Weight 90.8 kg Intake: IV 200 Output: Urine 1500 600 Estimated Blood Loss 15 Other: Voiding Method Indwelling Catheter Indwelling Catheter Indwelling Catheter # Bowel Movements 1 - Exam GENERAL DESCRIPTION: An elderly male lying in bed in no distress RESPIRATORY SYSTEM: Unlabored breathing , coarse breath sounds at bases HEART: S1 S2 regular rate and rhythm , ABDOMEN: Soft , no tenderness, sacral wound which is not significantly deep however did have stool contamination EXTREMITIES: Bilateral BKA stump with no swelling or redness - Labs CBC & Chem 7: 11/18/23 07:31 11/18/23 07:31 Labs: Abnormal Lab Results - Last 24 Hours (Table) 11/19/23 11/19/23 11/20/23 Range/Units 15:05 17:33 11:42 POC Glucose (mg/dL) 134 H 127 H 116 H (70-110) mg/dL Microbiology - Last 24 Hours (Table) 11/17/23 09:01 Blood Culture - Preliminary Blood Assessment and Plan (1) Sepsis Current Visit: Yes Status: Acute Code(s): A41.9 - SEPSIS, UNSPECIFIED ORGANISM SNOMED Code(s): 30318917 (2) Urinary tract infection Current Visit: Yes Status: Acute Code(s): N39.0 - URINARY TRACT INFECTION, SITE NOT SPECIFIED SNOMED Code(s): 19348521 (3) Pneumonia Current Visit: No Status: Acute Code(s): J18.9 - PNEUMONIA, UNSPECIFIED ORGANISM SNOMED Code(s): 702341304 Plan: 1patient was in the hospital with sepsis in this patient who did have fever tachycardia elevated white count source is likely combination of catheters has been tach infection and is concern for large hydropneumothorax and possible pneumonia questionable aspiration or gram-negative less likely gram-positive pathogen, patient has received adequate Zosyn and can be discontinued on discharge 2-positive blood culture with coagulase-negative staph possible contamination, blood cultures repeat has been negative more likely contamination 3-patient did have improvement in his fever pattern and white count has normalized patient to continue with the Diflucan x 3 days on discharge 4-patient noticed to have worsening of his sacral wound surgery status post surgical debridement overall wound does not look infected however high risk of second infection because it was contaminated with stool resistant has been advised to keep the area clean and of the pressure Dictation was produced using [employer] dictation software. please excuse any grammatical, word or spelling errors. Time with Patient: Less than 30
--- NOTE | 2023-11-20 15:11 | P.PN ---
Progress Note - Text Progress Note Date: 11/20/23 MARY. Resting comfortable VSS General-NAD Abdomen-soft, NTND Sacrum-Nonstageable Sacral Decub 73 year old male POD #1 Sharp Excisional Debridement Decubitus Ulcer -Local Wound Care per Nursing/Wound Care -No further surgical intervention planned -Rest of Care per Primary Jt Alves [facility] [phone]
--- NOTE | 2023-11-20 16:33 | P.DS ---
Providers Date of admission: 11/10/23 11:49 Expected date of discharge: 11/20/23 Attending physician: Gerson Banks Consults: 11/10/23 11:49 Consult Physician Urgent Consulting Provider: Theo Bo Consult Reason/Comments: hydropneumothorax Do you want consulting provider notified?: Yes 11/10/23 14:07 Consult Physician Routine Consulting Provider: Asad Haddad Consult Reason/Comments: Decub wound Do you want consulting provider notified?: Yes 11/10/23 16:13 Consult Physician Routine Consulting Provider: Juan Del Rosario Consult Reason/Comments: Sepsis Do you want consulting provider notified?: Yes 11/17/23 15:52 Consult Physician Routine Consulting Provider: Jt Alves Consult Reason/Comments: rectal wound Do you want consulting provider notified?: Yes Primary care physician: Kei Rene MD Hospital Course: Chief Complaint: Altered mentation This is a 73-year-old patient, follows with visiting physicians Dr. Rene. Chronic stable medical conditions include diabetes, GERD, hypertension, hyperlipidemia, chronic venous stasis wounds. Arthritis. Neuropathy. Bilateral above-knee amputation. CHF EF 40 to 45%, dementia, home oxygen 2 L chronic Davidson catheter. Patient is taking care of by his daughter. Per the EMS report 70 9 PM patient became unresponsive. From his normal alert self. She tried sternal rubs with no real success. Patient had not had a bowel movement for 16 days. Per PCP magnesium citrate was ordered. Also for last several days poor oral intake. Had a recent pneumonia and a UTI. Temperature recorded was 101. Was found to be rather unkempt and fall ordered by the EMS. They gave IV fluids. EKG showed sinus tachycardia. In the ER patient somewhat delirious. Really cannot give any history. No family at the bedside. On October 04 950 cc of dark bloody fluid from the right pleural space was taken out by Dr. BO. ER physician called Dr. BO from pulmonary regarding the large right hydropneumothorax. Present time nothing further was to be done. November 10: Patient was seen in the ER earlier today. On IV cefepime. A bit more awake. Though still delirious. Dry oral cavity. Oral tolerate ordered. NG tube for medications. Some improvement in renal function. Febrile November 11: Patient still delirious but doing a bit better. . Able to take his medications. Oral hygiene was done yesterday. Diet is being changed to pured. No fever since yesterday evening. Continue IV Zosyn. Sodium up to 151. Increase IV fluids. Attempted to speak. November 12: Patient remained lethargic. Delirious. Sodium is gone to 158. Blood glucose low. Decreased oral intake. Will change IV fluids to D5W at 150 cc an hour. On IV Zosyn. No further fever. November 13: Doing better. Sodium has come down. Accu-Cheks are better running high. Change IV fluids to D5.45. Cut back IV fluid rate. Throat secretions. For deep suctioning. Tolerating pured diet. November 14: Ate fairly okay yesterday. Not keen for breakfast today. No gurgling in the chest. Remains on IV Zosyn. Tired. November 15: Awake. Laying in bed. Patient had most of his pured lunch. I also fed him a whole chocolate pured container. Drinking fluids. Afebrile. Patient on Diflucan for candiduria. Will DC D5.45. Change Levemir to 20 units at night. Sacral wound vascular is consulted. He will be reminded about the consult November 16: Discussed with Dr. Haddad. Patient has a deeper wound close to rectum. General surgery consulted. Earlier today care was discussed in detail with patient daughter at the bedside. Will hold off discharge for now. Until further evaluation by surgery. Will probably need debridement. Wound appears to be chronic November 17: Patient was seen by me this morning. Daughter at the bedside. Patient will be taken to the OR by surgery tomorrow. Questions answered. November 18: Patient underwent debridement of the wound by Dr. Alves. No communication of the rectum. Patient is otherwise stable. November 19: Patient tolerating diet well. Answering questions. Discussed with ID Dr. Del Rosario: Patient's culture may not contribute to much to the decision making of antibiotics. Will complete a short course of Flagyl. No need for further IV antibiotics. Discussed with protective services social worker Marbin: Patient does not have any obvious indications for rehab. No IV antibiotics. He stated patient may qualify for long-term care. Discussed with daughter over the phone: She does not want long-term care. Antibiotics per my discussion with ID was done. Wound care orders per Dr. Hewitt obtained. Patient will follow-up with the wound care center with Dr. Haddad. Discussed with nurse. Discussion and discharge planning more than 35 minutes. Prognosis guarded Social history: Former smoker. Cared for by his daughter. Physical examination: VITAL SIGNS: 97.5, 62, 16, 165 x 61, 98% on 2 L GENERAL: Laying in bed. Comfortable EYES: [Pupils equal. Conjunctiva pale HEENT: External appearance of nose and ears normal, oral cavity less dry mucous membrane. NECK: JVD not raised; masses not palpable. HEART: First and second heart sounds are normal; no edema. LUNGS: Respiratory rate increased; decreased breath sounds. ABDOMEN: Soft, nontender, liver spleen not palpable, no masses palpable. Davidson catheter PSYCH: Answering simple questions MUSCULOSKELETAL:No Clubbing/cyanosis;muscles-grossly intact. Sacral decubitus wound NEUROLOGICAL: [Cranial nerves grossly intact; no facial asymmetry, moving all 4 limbs. Tolerating pured diet INVESTIGATIONS, reviewed in the clinical context: November 17: White count 9.4 hemoglobin 8.3 potassium 4 creatinine zero 1.03 Urine culture: Negative November 10: White count 16 hemoglobin 10.2 platelets 339 sodium 149 potassium 2.5 BUN 44 creatinine 1.38 November 10, 2023: White count 7.8 hemoglobin 11.7 platelets 471 sodium 146 potassium 3.3 BUN 48 creatinine 1.78 lactic acid 2.5 UA positive for leukoesterase, WBC 111 nitrite positive [place] Urine drug screen: Positive for opiates benzodiazepine Influenza type A, type B, RSV, COVID-19: Not detected EKG tracing personally reviewed by me-intraventricular block. Ectopic atrial focus Chest abdomen pelvis CT: Large right hydropneumothorax. Consolidation in the right lung. Patchy infiltrate in the posterior segment left lower lobe. Extensive retained fecal debris. Atrophy of the pancreas. Stable adenoma/hyperplasia of the adrenal gland. Left kidney atrophic DJD changes of spine. Cardiomegaly Previous labs: Creatinine 0.8 on October 06, 2023 Assessment plan: -Severe sepsis. Source pneumonia, UTI. Rule out empyema: Improved IV Zosyn.-Completed course Urine culture-negative. Blood culture-g Staphylococcus hominis likely contaminant -Blood cultures positive for Staphylococcus hominis, likely contaminant -Sacral decubitus wound. Unstageable. Debridement done November 18: Dr. Alves from general surgery Wound care per Dr. Alves. Follow-up wound center with Dr. Haddad -Right-sided large hydropneumothorax. With possible trapped lung On October 04 950 cc of dark bloody fluid from the right pleural space was aspirated by Dr. BO Pulmonary Dr. BO following -Hypernatremia from free water deficit: Corrected Miguel Ángel IV fluids -Lactic acidosis from sepsis -Pneumonia multilobar suspect gram-negative organism IV Zosyn-completed course -Acute UTI with cystitis secondary to Davidson catheter IV Zosyn-completed course -Acute delirium metabolic encephalopathy multifactorial: Improved -Acute kidney injury combination of prerenal and ATN multifactorial: Improved Hold Aldactone. Cut back dose of Neurontin. IV fluids. Admission creatinine 1.78. Now down to 1.03 -Hyperlipidemia Lipitor 80 mg nightly -Chronic congestive heart failure systolic dysfunction EF 40 to 45% Follow cardiovascular status. IV hydration given IV fluids being discontinued. -Peripheral neuropathy Given kidney injury will cut back dose of Neurontin -Chronic bladder outflow obstruction/BPH Flomax 0.4 mg a day. 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 Follow Accu-Cheks -Full code Advance care planning [November 17, 2023] This was discussed lives with daughter at the bedside who cares for the patient. Patient has multiple comorbidities. At this point patient remain full code. Daughter wishes discussed this with her brother. Understands what full code means. Time spent with this about 25 minutes Disposition: Home with daughter 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 Date of last positivie culture/infection: 10/28/22 MDRO Source:: Blood Past Surgical History: Heart Catheterization Additional Past Surgical History / Comment(s): bilateral great toes amputated, 2nd toe lt foot partial amputation, multiple debridements of venous ulcers, colonoscopy, surgery as a child for undescended testicle., ABOVE THE KNEE AMPUTATION RIGHT LEG (JUNE 2017-[facility]) Past Anesthesia/Blood Transfusion Reactions: No Reported Reaction Date of Last Stent Placement:: 10/17/2022 Past Psychological History: Anxiety, Depression Smoking Status: Former smoker Past Alcohol Use History: Unable to Obtain Past Drug Use History: Unable to Obtain Plan - Discharge Summary New Discharge Prescriptions: New Fluconazole [Diflucan] 100 mg PO DAILY #3 tab Zinc Oxide 20% Oint 1 applic TOPICAL BID PRN each PRN Reason: Wound Healing Continue traZODone HCL 50 mg PO HS HYDROcodone/APAP 7.5-325MG [[place] 7.5-325] 1 tab PO Q6HR PRN PRN Reason: Pain Sennosides [Senokot] 8.6 mg PO DAILY Insulin Lispro [humaLOG Kwikpen] 2 - 20 unit SQ ACHS Magnesium Citrate [Citrate of Magnesia] 296 ml PO RING Gabapentin [Neurontin] 300 mg PO BID Tamsulosin [Flomax] 0.4 mg PO DAILY Famotidine [Pepcid] 20 mg PO BID amLODIPine [Norvasc] 10 mg PO DAILY #30 tab Sodium Bicarbonate Tab 650 mg PO BID #60 tab Glycopyrrolate 1 mg PO TID PRN PRN Reason: drooling Clopidogrel [Plavix] 75 mg PO DAILY Acetaminophen Tab [Tylenol] 500 mg PO Q6H PRN PRN Reason: Fever And/ Or Pain Nystatin 100,000 Unit/gm Powd [Mycostatin Powder] 1 applic TOPICAL BID Atorvastatin Calcium [Lipitor] 80 mg PO HS Changed Insulin Glargine,Hum.rec.anlog [Lantus Solostar Pen] 20 units SQ HS #0 Discontinued LORazepam [Ativan] 0.5 mg PO BID PRN PRN Reason: Anxiety Spironolactone [Aldactone] 25 mg PO DAILY 30 Days #30 tab Discharge Medication List traZODone HCL 50 mg PO HS 11/09/17 [History] Famotidine [Pepcid] 20 mg PO BID 09/29/22 [History] Tamsulosin [Flomax] 0.4 mg PO DAILY 09/29/22 [History] Sodium Bicarbonate Tab 650 mg PO BID #60 tab 07/03/23 [Rx] amLODIPine [Norvasc] 10 mg PO DAILY #30 tab 07/03/23 [Rx] Clopidogrel [Plavix] 75 mg PO DAILY 10/02/23 [History] Glycopyrrolate 1 mg PO TID PRN 10/02/23 [History] HYDROcodone/APAP 7.5-325MG [[place] 7.5-325] 1 tab PO Q6HR PRN 10/02/23 [History] Sennosides [Senokot] 8.6 mg PO DAILY 10/02/23 [History] Acetaminophen Tab [Tylenol] 500 mg PO Q6H PRN 11/10/23 [History] Atorvastatin Calcium [Lipitor] 80 mg PO HS 11/10/23 [History] Gabapentin [Neurontin] 300 mg PO BID 11/10/23 [History] Insulin Lispro [humaLOG Kwikpen] 2 - 20 unit SQ ACHS 11/10/23 [History] Magnesium Citrate [Citrate of Magnesia] 296 ml PO RING 11/10/23 [History] Nystatin 100,000 Unit/gm Powd [Mycostatin Powder] 1 applic TOPICAL BID 11/10/23 [History] Fluconazole [Diflucan] 100 mg PO DAILY #3 tab 11/17/23 [Rx] Insulin Glargine,Hum.rec.anlog [Lantus Solostar Pen] 20 units SQ HS #0 11/17/23 [Rx] Zinc Oxide 20% Oint 1 applic TOPICAL BID PRN each 11/17/23 [Rx] Follow up Appointment(s)/Referral(s): Kei Rene MD [Primary Care Provider] - 1-2 days (Left mesage with office to call you to make follow up appointment, please call office 11/22 if you do not hear from them.) Yemi dacosta [facility], [NON-STAFF] - 1 Week Asad Haddad MD [STAFF PHYSICIAN] - 11/25/23 1:15 pm [facility], [NON-STAFF] - 1 Week Patient Instructions/Handouts: Davidson Catheter Placement and Care (DC), Sepsis (DC), Catheter-associated Urinary Tract Infection (DC) Activity/Diet/Wound Care/Special Instructions: Per Dr. Alves: Keep buttocks dry, clean, and apply dressing daily. Roll patient multiple times a day to keep pressure off of the wound. Discharge Disposition: HOME SELF-CARE
== END 2023-11-20 15:48 | disposition home or self-care (01) | DRG 673 ==
LOC: EC 09:01 → 3SCARD 11:49
PROVIDERS: ADMIT Hospitalist; ATTEND Hospitalist
PROC: 0JB70ZZ Excision of Back Subcutaneous Tissue and Fascia, Open Approach (ICD-10-PCS; principal; 2023-11-19 07:30)
DX: T83.511A Infection and inflammatory reaction due to indwelling urethral catheter, initial encounter (principal); A41.50 Gram-negative sepsis, unspecified; G93.41 Metabolic encephalopathy; J15.69 Pneumonia due to other Gram-negative bacteria; R65.20 Severe sepsis without septic shock; N17.0 Acute kidney failure with tubular necrosis; F03.93 Unspecified dementia, unspecified severity, with mood disturbance; B37.49 Other urogenital candidiasis; E87.0 Hyperosmolality and hypernatremia; E87.20 Acidosis, unspecified; F03.94 Unspecified dementia, unspecified severity, with anxiety; I50.22 Chronic systolic (congestive) heart failure; N30.00 Acute cystitis without hematuria; J94.8 Other specified pleural conditions; N13.8 Other obstructive and reflux uropathy; J93.9 Pneumothorax, unspecified; L89.150 Pressure ulcer of sacral region, unstageable; E10.42 Type 1 diabetes mellitus with diabetic polyneuropathy; E10.51 Type 1 diabetes mellitus with diabetic peripheral angiopathy without gangrene; E10.69 Type 1 diabetes mellitus with other specified complication; E10.649 Type 1 diabetes mellitus with hypoglycemia without coma; K86.89 Other specified diseases of pancreas; I11.0 Hypertensive heart disease with heart failure; Z89.611 Acquired absence of right leg above knee; Z89.612 Acquired absence of left leg above knee; Z99.81 Dependence on supplemental oxygen; K56.41 Fecal impaction; F32.A Depression, unspecified; Z79.4 Long term (current) use of insulin; E78.5 Hyperlipidemia, unspecified; K21.9 Gastro-esophageal reflux disease without esophagitis; I25.10 Atherosclerotic heart disease of native coronary artery without angina pectoris; N40.1 Benign prostatic hyperplasia with lower urinary tract symptoms; M19.041 Primary osteoarthritis, right hand; M19.042 Primary osteoarthritis, left hand; N26.1 Atrophy of kidney (terminal); Y73.2 Prosthetic and other implants, materials and accessory gastroenterology and urology devices associated with adverse incidents; Y84.6 Urinary catheterization as the cause of abnormal reaction of the patient, or of later complication, without mention of misadventure at the time of the procedure; Z79.899 Other long term (current) drug therapy; Z95.5 Presence of coronary angioplasty implant and graft; Z87.891 Personal history of nicotine dependence; Z79.02 Long term (current) use of antithrombotics/antiplatelets
CPT/HCPCS: 36415; 36600; 70450; 71045; 71250; 74176; 80048; 80053; 80306; 80320; 81001; 82140; 82805; 83036; 83605; 83735; 84145; 85025; 85610; 85730; 87040; 87077; 87086; 87186; 87636; 93005; 96361; 96365; 96366; 96368; 96372; 99291

== ENCOUNTER 2023-11-24 08:56 | Inpatient (IN) | payer MEDICARE ==
--- NOTE | 2023-11-24 09:45 | ED ---
General Adult HPI - General Chief complaint: Skin/Abscess/Foreign Body Stated complaint: Hypertension Time Seen by Provider: 11/24/23 09:01 Source: patient, EMS Mode of arrival: EMS Limitations: no limitations - History of Present Illness Initial comments: Dictation was produced using [employer] dictation software. please excuse any grammatical, word or spelling errors. Chief Complaint: 73-year-old debilitated male presents to the ER for decubitus wound History of Present Illness: Patient 73-year-old male he is a poor historian. History obtained from EMS states that he was brought in from home for worsening buttocks wounds. Patient has history of dementia. Apparently EMS was called by patient's . Unable to obtain ROS secondary to mental status - Related Data Home Medications Medication Instructions Recorded Confirmed traZODone HCL 50 mg PO HS 11/09/17 11/24/23 Famotidine [Pepcid] 20 mg PO BID 09/29/22 11/24/23 Tamsulosin [Flomax] 0.4 mg PO DAILY 09/29/22 11/24/23 Clopidogrel [Plavix] 75 mg PO DAILY 10/02/23 11/24/23 Glycopyrrolate 1 mg PO TID PRN 10/02/23 11/24/23 HYDROcodone/APAP 7.5-325MG [Davis 1 tab PO Q6HR PRN 10/02/23 11/24/23 7.5-325] Sennosides [Senokot] 8.6 mg PO DAILY 10/02/23 11/24/23 Acetaminophen Tab [Tylenol] 500 mg PO Q6H PRN 11/10/23 11/24/23 Atorvastatin Calcium [Lipitor] 80 mg PO HS 11/10/23 11/24/23 Gabapentin [Neurontin] 300 mg PO BID 11/10/23 11/24/23 Insulin Lispro [humaLOG Kwikpen] 2 - 20 unit SQ ACHS 11/10/23 11/24/23 Magnesium Citrate [Citrate of 296 ml PO RING 11/10/23 11/24/23 Magnesia] Nystatin 100,000 Unit/gm Powd 1 applic TOPICAL BID 11/10/23 11/24/23 [Mycostatin Powder] Insulin Glargine,Hum.rec.anlog 20 units SQ BID 11/24/23 11/24/23 [Lantus Solostar Pen] Previous Rx's Medication Instructions Recorded Sodium Bicarbonate Tab 650 mg PO BID #60 tab 07/03/23 amLODIPine [Norvasc] 10 mg PO DAILY #30 tab 07/03/23 Zinc Oxide 20% Oint 1 applic TOPICAL BID PRN each 11/17/23 Allergies Allergy/AdvReac Type Severity Reaction Status Date / Time No Known Allergies Allergy Verified 11/24/23 10:48 Review of Systems ROS Statement: Those systems with pertinent positive or pertinent negative responses have been documented in the HPI. ROS Other: All systems not noted in ROS Statement are negative. 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 Date of last positivie culture/infection: 10/28/22 MDRO Source:: Blood Past Surgical History: Heart Catheterization Additional Past Surgical History / Comment(s): bilateral great toes amputated, 2nd toe lt foot partial amputation, multiple debridements of venous ulcers, colonoscopy, surgery as a child for undescended testicle., ABOVE THE KNEE AMPUTATION RIGHT LEG (JUNE 2017-[facility]) Past Anesthesia/Blood Transfusion Reactions: No Reported Reaction Date of Last Stent Placement:: 10/17/2022 Past Psychological History: Anxiety, Depression Smoking Status: Former smoker Past Alcohol Use History: Unable to Obtain Past Drug Use History: Unable to Obtain - Past Family History Father Family Medical History: Cancer Additional Family Medical History / Comment(s): Father from brain cancer Mother Family Medical History: Eye Disorder Additional Family Medical History / Comment(s): Glaucoma. Mother is . General Exam - General Exam Comments Initial Comments: PHYSICAL EXAM: General Impression: Alert and oriented x2/4, not in acute distress HEENT: Normocephalic atraumatic, extra-ocular movements intact, pupils equal and reactive to light bilaterally, mucous membranes moist. Cardiovascular: Heart regular rate and rhythm Chest: Able to complete full sentences, no retractions, no tachypnea Abdomen: abdomen soft, non-tender, non-distended, no organomegaly Musculoskeletal: Bilateral lower extremity above-knee amputations Motor: no focal deficits noted Neurological: CN II-XII grossly intact, no focal motor or sensory deficits noted Skin: Severe decubitus wounds to the sacrum with surrounding erythema drainage Psych: Normal affect and mood Limitations: no limitations Course Vital Signs 11/24/23 11/24/23 09:02 09:56 Temperature 99.8 F H 98.9 F Pulse Rate 82 Respiratory 18 Rate Blood Pressure 165/73 O2 Sat by Pulse 98 Oximetry Medical Decision Making - Medical Decision Making Was pt. sent in by a medical professional or institution (, PA, ACCOUNT SERVICES ASSOCIATE, urgent care, hospital, or fdc...) When possible be specific @ -No Did you speak to anyone other than the patient for history (EMS, parent, family, police, friend...)? What history was obtained from this source @ -EMS as described above Did you review nursing and triage notes (agree or disagree)? Why? @ -I reviewed and agree with nursing and triage notes Were old charts reviewed (outside hosp., previous admission, EMS record, old EKG, old radiological studies, urgent care reports/EKG's, fdc records)? Report findings @ -No old charts were reviewed Differential Diagnosis (chest pain, altered mental status, abdominal pain women, abdominal pain men, vaginal bleeding, musculoskeletal, weakness, fever, dyspnea, syncope, headache, dizziness, GI bleed, back pain, seizure, CVA, palpatations, mental health)? @ - gangrene, necrotizing fasciitis, cellulitis EKG interpreted by me (3pts min.). @ -My EKG interpretation: Ventricular rate 75 sinus rhythm, FL interval 115, cures 126, QTc 439. No FL prolongation, no QTC prolongation, no ST or T-wave changes noted. Overall, this EKG is unremarkable X-rays interpreted by me (1pt min.). @ -None done CT interpreted by me (1pt min.). @ -None done U/S interpreted by me (1pt. min.). @ -None done What testing was considered but not performed or refused? (CT, X-rays, U/S, labs)? Why? @ -None What meds were considered but not given or refused? Why? @ -None Was smoking cessation discussed for >3mins.? @ -No Were there social determinants of health that impacted care today? How? (Homelessness, low income, unemployed, alcoholism, drug addiction, transportation, low edu. Level, literacy, decrease access to med. care, penitentiary, rehab)? @ -No Was there de-escalation of care discussed even if they declined (Discuss DNR or withdrawal of care, Hospice)? DNR status @ -No What co-morbidities impacted this encounter? (DM, HTN, Smoking, COPD, CAD, Cancer, CVA, ARF, Chemo, Hep., AIDS, mental health diagnosis, sleep apnea, morbid obesity)? @ -None Was patient admitted / discharged? Hospital course, mention meds given and route, prescriptions, significant lab abnormalities, going to OR and other pertinent info. @ -73-year-old male sent to the emergency department for worsening sacral wound. Vital signs upon arrival shows low-grade temperature. Rest of vitals within acceptable limits. Wound appears to be draining with surrounding erythem a. Laboratory evaluation obtained. Labs unremarkable. Given patient's gross wound evaluation there is concern of worsening skin infection started on broad- spectrum antibiotics will be admitted with consultation to infectious disease and general surgery. Case discussed with Dr. Garcia for admission Did you discuss the management of the patient with other professionals (professionals i.e. , PA, ACCOUNT SERVICES ASSOCIATE, lab, RT, psych nurse, manager social services, quartz mounter, teacher, senior loan officer, registered nurse hh case manager)? Give summary @ -See above Was critical care preformed (if so, how long)? @ -No Undiagnosed new problem with uncertain prognosis? @ -No Drug Therapy requiring intensive monitoring for toxicity (Heparin, Nitro, Insulin, Cardizem)? @ -No Were any procedures done? @ -No Diagnosis/symptom? Acute, or Chronic, or Acute on Chronic? Uncomplicated (without systemic symptoms) or Complicated (systemic symptoms)? @ -Sacral wound Side effects of treatment? @ -No Exacerbation, Progression, or Severe Exacerbation? @ -No Poses a threat to life or bodily function? How? (Chest pain, USA, AK, pneumonia, PE, COPD, DKA, ARF, appy, cholecystitis, CVA, Diverticulitis, Homicidal, Suicidal, threat to staff... and all critical care pts) @ -yes - Lab Data Result diagrams: 11/24/23 10:21 11/24/23 10:21 Lab Results 11/24/23 11/24/23 11/24/23 Range/Units 10:21 10:21 10:21 WBC 10.0 (3.8-10.6) k/uL RBC 3.71 L (4.30-5.90) m/uL Hgb 9.3 L (13.0-17.5) gm/dL Hct 30.4 L (39.0-53.0) % MCV 82.0 (80.0-100.0) fL MCH 25.2 (25.0-35.0) pg MCHC 30.7 L (31.0-37.0) g/dL RDW 16.2 H (11.5-15.5) % Plt Count 536 H (150-450) k/uL MPV 8.0 Neutrophils % 81 % Lymphocytes % 12 % Monocytes % 6 % Eosinophils % 1 % Basophils % 0 % Neutrophils # 8.1 H (1.3-7.7) k/uL Lymphocytes # 1.2 (1.0-4.8) k/uL Monocytes # 0.6 (0-1.0) k/uL Eosinophils # 0.1 (0-0.7) k/uL Basophils # 0.0 (0-0.2) k/uL Hypochromasia Marked Anisocytosis Slight PT 11.1 (10.0-12.5) sec INR 1.0 (<1.2) APTT 29.2 (22.0-30.0) sec Sodium 134 L (137-145) mmol/L Potassium 5.1 (3.5-5.1) mmol/L Chloride 106 (98-107) mmol/L Carbon Dioxide 25 (22-30) mmol/L Anion Gap 3 mmol/L BUN 13 (9-20) mg/dL Creatinine 0.74 (0.66-1.25) mg/dL Est GFR (CKD-EPI)AfAm >90 (>60 ml/min/1.73 sqM) Est GFR (CKD-EPI)NonAf >90 (>60 ml/min/1.73 sqM) Glucose 104 H (74-99) mg/dL Plasma Lactic Acid Ata (0.7-2.0) mmol/L Calcium 8.3 L (8.4-10.2) mg/dL Magnesium 1.6 (1.6-2.3) mg/dL Total Bilirubin 0.6 (0.2-1.3) mg/dL AST 44 (17-59) U/L ALT 15 (4-49) U/L Alkaline Phosphatase 183 H (38-126) U/L C-Reactive Protein 5.5 H (<1.0) mg/dL Total Protein 6.5 (6.3-8.2) g/dL Albumin 2.8 L (3.5-5.0) g/dL 11/24/23 Range/Units 10:21 WBC (3.8-10.6) k/uL RBC (4.30-5.90) m/uL Hgb (13.0-17.5) gm/dL Hct (39.0-53.0) % MCV (80.0-100.0) fL MCH (25.0-35.0) pg MCHC (31.0-37.0) g/dL RDW (11.5-15.5) % Plt Count (150-450) k/uL MPV Neutrophils % % Lymphocytes % % Monocytes % % Eosinophils % % Basophils % % Neutrophils # (1.3-7.7) k/uL Lymphocytes # (1.0-4.8) k/uL Monocytes # (0-1.0) k/uL Eosinophils # (0-0.7) k/uL Basophils # (0-0.2) k/uL Hypochromasia Anisocytosis PT (10.0-12.5) sec INR (<1.2) APTT (22.0-30.0) sec Sodium (137-145) mmol/L Potassium (3.5-5.1) mmol/L Chloride (98-107) mmol/L Carbon Dioxide (22-30) mmol/L Anion Gap mmol/L BUN (9-20) mg/dL Creatinine (0.66-1.25) mg/dL Est GFR (CKD-EPI)AfAm (>60 ml/min/1.73 sqM) Est GFR (CKD-EPI)NonAf (>60 ml/min/1.73 sqM) Glucose (74-99) mg/dL Plasma Lactic Acid Ata 1.9 (0.7-2.0) mmol/L Calcium (8.4-10.2) mg/dL Magnesium (1.6-2.3) mg/dL Total Bilirubin (0.2-1.3) mg/dL AST (17-59) U/L ALT (4-49) U/L Alkaline Phosphatase (38-126) U/L C-Reactive Protein (<1.0) mg/dL Total Protein (6.3-8.2) g/dL Albumin (3.5-5.0) g/dL Disposition Clinical Impression: Sacral decubitus ulcer Disposition: ADMITTED IP TO THIS HOSP Condition: Fair Referrals: Kei Rene MD [Primary Care Provider] - 1-2 days Decision Time: 12:20
[2023-11-24] MEDS ORDERED: VANCOMYCIN IV PER PHARMACY 1 EACH MISC MISCELLANE PRN (10:44)
[2023-11-24 10:48] LABS: Anisocytosis Slight; Basophils % (A) 0 %; Eosinophils # (A) 0.1 k/uL (0-0.7); Eosinophils % (A) 1 %; HCT 30.4 % (39.0-53.0); HGB 9.3 gm/dL (13.0-17.5); Hypochromasia Marked; Lymphocytes # (A) 1.2 k/uL (1.0-4.8); Lymphocytes % (A) 12 %; MCH 25.2 pg (25.0-35.0); MCHC 30.7 g/dL (31.0-37.0); Monocytes # (A) 0.6 k/uL (0-1.0); Monocytes % (A) 6 %; Neutrophils # (A) 8.1 k/uL (1.3-7.7); Neutrophils % (A) 81 %; Platelet Count 536 k/uL (150-450); RBC 3.71 m/uL (4.30-5.90); RDW 16.2 % (11.5-15.5)
[2023-11-24 11:04] LABS: ALT 15 U/L (4-49); AST 44 U/L (17-59); African American GFR (CKD) >90 (>60 ml/min/1.73 sqM); Albumin 2.8 g/dL (3.5-5.0); Alkaline Phosphatase 183 U/L (38-126); Anion Gap 3 mmol/L; Blood Urea Nitrogen 13 mg/dL (9-20); C Reactive Protein 5.5 mg/dL (<1.0); Calcium 8.3 mg/dL (8.4-10.2); Carbon Dioxide 25 mmol/L (22-30); Chloride 106 mmol/L (98-107); Glucose 104 mg/dL (74-99); Magnesium 1.6 mg/dL (1.6-2.3); Non-African American GFR(CKD) >90 (>60 ml/min/1.73 sqM); Potassium 5.1 mmol/L (3.5-5.1); Sodium 134 mmol/L (137-145); Total Bilirubin 0.6 mg/dL (0.2-1.3); Total Protein 6.5 g/dL (6.3-8.2)
[2023-11-24 11:34] LABS: Partial Thromboplastin Time 29.2 sec (22.0-30.0); Prothrombin Time 11.1 sec (10.0-12.5)
[2023-11-24] MEDS: CEFEPIME 2 GM in SODIUM CHLORIDE 0.9% 100 ML IVPB STA (11:52)
[2023-11-24] MEDS: VANCOMYCIN 1,000 MG in SODIUM CHLORIDE 0.9% 250 ML IVPB STA (12:11)
[2023-11-24] MEDS ORDERED: ONDANSETRON 4 MG/2 ML VIAL IVP PRN (12:15)
[2023-11-24] MEDS ORDERED: NALOXONE 0.4 MG/ML 1 ML VIAL IV PRN (12:15)
[2023-11-24] MEDS: SODIUM CHLORIDE 0.9% 1,000 ML IV SCH (12:25)
--- NOTE | 2023-11-24 15:55 | P.HPIM ---
History of Present Illness H&P Date: 11/24/23 Chief Complaint: sacral decubitus ulcer Patient is a 73-year-old male with PMH of IDDM, hypertension, CKD stage II, chronic indwelling Davidson catheter, systolic CHF with ejection fraction of 40 to 45%, dementia, COPD with chronic hypoxemic respiratory failure not on home oxyg en and bilateral AKA was brought to the ER by EMS for sacral decubitus ulcers. Patient has dementia and altered mental status and is not able to provide any reasonable history at the time of interview. History was mainly obtained from his daughter via phone call. According to his daughter, patient was doing generally well until this morning when he woke up seemingly confused and out of place. Patient was recently hospitalized for altered mentation on 11/10/2023 and was discharged after a month-long hospital course on 11/20/2023. Patient was discharged home with wound care provided by the visiting nurse. It was day one of the nurse visiting the patient for the wound care when she alerted the daughter to infectious sacral decubitus ulcers. Patient had fever and chills with poor appetite this morning. Patient did have debridement done on November [address] Alves from general surgery during the course of previous admission. Per ID Dr. Cartagena patient was at high risk for second infection because of its location and probability of getting contaminated with stool and was advised to keep the area clean and of pressure. Patient was not discharged on any oral antibiotics. Vitals: Tmax 99.8 F, heart rate 82, respirate 18, blood pressure 165/73, oxygen saturation 98 % on room air Laboratory evaluation shows WBC 10.0, hemoglobin 9.3, platelet count 536, sodium 134, potassium 5.1, chloride 106, bicarb 25, BUN 13, creatinine 0.74, calcium 8.3, alkaline phosphatase 83, C-reactive protein 5.5, albumin 2.8 EKG done in the ER shows junctional rhythm with ventricular rate of 75, AL int erval 115 not prolonged, QRS 126 not prolonged, QTc 439 not prolonged. Poor R wave progression. Left bundle branch block. Review of systems: Pertinent positives and negatives as discussed in HPI, a complete review of systems was performed and all other systems are negative. Social history: Tobacco: None Alcohol: None Recreational drugs: None Travel: None Occupation: None Family History: None Physical examination: Vital signs reviewed General: patient looks somewhat uncomfortable, mild distress, appears older than stated age, normal weight Derm: There are 4 stage III sacral decubitus ulcers contaminated with feces Head: atraumatic, normocephalic, symmetric Eyes: EOMI, no lid lag, anicteric sclera, pupils equal round reactive to light ENT: Nose and ears atraumatic Neck: No cervical lymphadenopathy, trachea midline, supple Mouth: no lip lesion, mucus membranes moist Cardiovascular: S1S2 reg, no murmur, no edema Lungs: CTABL, no rhonchi, no rales, no accessory muscle use Abdominal: soft, nontender to palpation, no guarding Ext: Bilateral AKA Neuro: CN II-XI grossly intact, no gross focal neuro deficits Psych: patient answering basic questions and only oriented to self, not oriented to time or place, appropriate affect Assessment/Plan: 73-year-old male with PMH of IDDM, hypertension, CKD stage II, chronic indwelling Davidson catheter, systolic CHF with ejection fraction of 40 to 45%, dementia, COPD with chronic hypoxemic respiratory failure not on home oxygen and bilateral AKA was brought to the ER by EMS for sacral decubitus ulcers. #Sacral decubitus ulcer Patient does not meet SIRS criteria IV vancomycin IVPB every 12 hours Zosyn 3.375 g IVPB every 12 hours IV normal saline at 75 cc/h Order blood culture Consult surgery for debridement Consult infectious disease #Normocytic anemia Hemoglobin 9.3, MCV 82 Hemoglobin is at baseline Continue monitor CBC No active bleeding #Hypovolemic hyponatremia likely due to poor intake IV normal saline 75 cc/h Continue monitor cmp #Hypoglycemia Serum glucose 104 Continue monitor serum glucose level #Elevated alkaline phosphatase #Elevated CRP Likely in the setting of ongoing infection Alkaline phos 183 CRP 5.5 Continue monitor CMP Chronic conditions: Resume home medications DVT prophylaxis: Lovenox 40 mg subcu daily The patient is admitted with an anticipated more than 2 midnight stay for evaluation of sacral decubitus ulcer CODE STATUS: Full code Discussed with: Daughter Anticipated discharge place: Home I have seen and evaluated the patient today. Discussed with the resident and agree with the residents finding and plan as documented in the resident's note. Changes as below. Patient presents with sacral decubitus ulcer started on Vancomycin and Zosyn (switched from BID to TID dosing). Monitor renal function while on Vancomycin. Surgery and ID is consulted. Add Conner and Morphine PRN for pain. Normocytic anemia with thrombocytosis likely related to Fe def appears at baseline. Discussed with RN, daughter was here earlier and according to her his mentation is at baseline. Glucose 104 on admission, stop Levemir and start ISS with accuchecks ACHS and hypoglycemic precautions. Seems like she has a difficult time taking care of him at home will need to look into intermediate accountant placement. 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 Date of last positivie culture/infection: 10/28/22 MDRO Source:: Blood Past Surgical History: Heart Catheterization Additional Past Surgical History / Comment(s): bilateral great toes amputated, 2nd toe lt foot partial amputation, multiple debridements of venous ulcers, colonoscopy, surgery as a child for undescended testicle., ABOVE THE KNEE AMPUTATION RIGHT LEG (JUNE 2017-[facility]) Past Anesthesia/Blood Transfusion Reactions: No Reported Reaction Date of Last Stent Placement:: 10/17/2022 Past Psychological History: Anxiety, Depression Smoking Status: Former smoker Past Alcohol Use History: Unable to Obtain Past Drug Use History: Unable to Obtain - Past Family History Father Family Medical History: Cancer Additional Family Medical History / Comment(s): Father from brain cancer Mother Family Medical History: Eye Disorder Additional Family Medical History / Comment(s): Glaucoma. Mother is . Medications and Allergies Home Medications Medication Instructions Recorded Confirmed Type traZODone HCL 50 mg PO HS 11/09/17 11/24/23 History Famotidine [Pepcid] 20 mg PO BID 09/29/22 11/24/23 History Tamsulosin [Flomax] 0.4 mg PO DAILY 09/29/22 11/24/23 History Sodium Bicarbonate Tab 650 mg PO BID #60 tab 07/03/23 11/24/23 Rx amLODIPine [Norvasc] 10 mg PO DAILY #30 tab 07/03/23 11/24/23 Rx Clopidogrel [Plavix] 75 mg PO DAILY 10/02/23 11/24/23 History Glycopyrrolate 1 mg PO TID PRN 10/02/23 11/24/23 History HYDROcodone/APAP 7.5-325MG [Conner 1 tab PO Q6HR PRN 10/02/23 11/24/23 History 7.5-325] Sennosides [Senokot] 8.6 mg PO DAILY 10/02/23 11/24/23 History Acetaminophen Tab [Tylenol] 500 mg PO Q6H PRN 11/10/23 11/24/23 History Atorvastatin Calcium [Lipitor] 80 mg PO HS 11/10/23 11/24/23 History Gabapentin [Neurontin] 300 mg PO BID 11/10/23 11/24/23 History Insulin Lispro [humaLOG Kwikpen] 2 - 20 unit SQ ACHS 11/10/23 11/24/23 History Magnesium Citrate [Citrate of 296 ml PO RING 11/10/23 11/24/23 History Magnesia] Nystatin 100,000 Unit/gm Powd 1 applic TOPICAL BID 11/10/23 11/24/23 History [Mycostatin Powder] Zinc Oxide 20% Oint 1 applic TOPICAL BID PRN each 11/17/23 11/24/23 Rx Insulin Glargine,Hum.rec.anlog 20 units SQ BID 11/24/23 11/24/23 History [Lantus Solostar Pen] Allergies Allergy/AdvReac Type Severity Reaction Status Date / Time No Known Allergies Allergy Verified 11/24/23 10:48 Physical Exam Vitals: Vital Signs Temp Pulse Resp BP Pulse Ox 11/24/23 12:31 80 18 178/72 95 11/24/23 09:56 98.9 F 11/24/23 09:02 99.8 F H 82 18 165/73 98 Intake and Output 11/24/23 11/24/23 11/24/23 06:59 14:59 22:59 Other: Weight 60.8 kg Results CBC & Chem 7: 11/24/23 10:21 11/24/23 10:21 Labs: Abnormal Lab Results - Last 24 Hours (Table) 11/24/23 11/24/23 Range/Units 10:21 10:21 RBC 3.71 L (4.30-5.90) m/uL Hgb 9.3 L (13.0-17.5) gm/dL Hct 30.4 L (39.0-53.0) % MCHC 30.7 L (31.0-37.0) g/dL RDW 16.2 H (11.5-15.5) % Plt Count 536 H (150-450) k/uL Neutrophils # 8.1 H (1.3-7.7) k/uL Sodium 134 L (137-145) mmol/L Glucose 104 H (74-99) mg/dL Calcium 8.3 L (8.4-10.2) mg/dL Alkaline Phosphatase 183 H (38-126) U/L C-Reactive Protein 5.5 H (<1.0) mg/dL Albumin 2.8 L (3.5-5.0) g/dL
[2023-11-24] MEDS ORDERED: DEXTROSE 50% SYRINGE 50 ML IVP PRN ×2 (16:53)
[2023-11-24] MEDS: CLOPIDOGREL 75 MG TAB PO SCH (17:22)
[2023-11-24] MEDS: TAMSULOSIN 0.4 MG CAP.ER.24H PO SCH (17:22)
[2023-11-24] MEDS: amLODIPine 10 MG TAB PO SCH (17:22)
[2023-11-24] MEDS: INSULIN ASPART (NovoLOG) 100 UNIT/ML VIAL SQ SCH (17:27)
[2023-11-24 17:28] LABS: Glucose,Whole Blood 91 mg/dL (70-110)
[2023-11-24] MEDS: ENOXAPARIN 40 MG/0.4 ML SYRINGE SQ SCH (17:28)
[2023-11-24] MEDS: MORPHINE SULFATE 2 MG/ML SYRINGE IVP PRN (18:16)
[2023-11-24] MEDS: PIPERACILLIN-TAZOBACTAM 3.375 GM in SODIUM CHLORIDE 0.9% 100 ML IVPB SCH (18:18)
[2023-11-24] MEDS ORDERED: INSULIN DETEMIR (LEVEMIR) 100 UNIT/ML SYR SQ SCH (21:00)
[2023-11-24] MEDS ORDERED: PIPERACILLIN-TAZOBACTAM 3.375 GM in SODIUM CHLORIDE 0.9% 100 ML IVPB SCH (21:00)
[2023-11-24 21:47] LABS: Glucose,Whole Blood 232 mg/dL (70-110)
[2023-11-24] MEDS: FAMOTIDINE 20 MG TAB PO SCH (21:58)
[2023-11-24] MEDS: traZODone HCL 50 MG TAB PO SCH (21:58)
[2023-11-24] MEDS: ATORVASTATIN 80 MG TAB PO SCH (21:58)
[2023-11-25] MEDS: VANCOMYCIN 1,000 MG in SODIUM CHLORIDE 0.9% 250 ML IVPB SCH (01:03)
[2023-11-25 06:19] LABS: Anisocytosis Slight; Basophils % (A) 0 %; Eosinophils # (A) 0.1 k/uL (0-0.7); Eosinophils % (A) 1 %; HCT 28.9 % (39.0-53.0); HGB 8.7 gm/dL (13.0-17.5); Hypochromasia Marked; Lymphocytes # (A) 1.3 k/uL (1.0-4.8); Lymphocytes % (A) 15 %; MCH 25.6 pg (25.0-35.0); MCHC 30.1 g/dL (31.0-37.0); MCV 85.2 fL (80.0-100.0); Monocytes # (A) 0.5 k/uL (0-1.0); Monocytes % (A) 6 %; Neutrophils # (A) 6.8 k/uL (1.3-7.7); Neutrophils % (A) 76 %; Platelet Count 481 k/uL (150-450); RBC 3.39 m/uL (4.30-5.90); RDW 16.4 % (11.5-15.5); WBC 8.9 k/uL (3.8-10.6)
[2023-11-25 06:38] LABS: African American GFR (CKD) >90 (>60 ml/min/1.73 sqM); Anion Gap 8 mmol/L; Blood Urea Nitrogen 11 mg/dL (9-20); Calcium 8.1 mg/dL (8.4-10.2); Carbon Dioxide 19 mmol/L (22-30); Chloride 109 mmol/L (98-107); Glucose 81 mg/dL (74-99); Non-African American GFR(CKD) >90 (>60 ml/min/1.73 sqM); Potassium 4.2 mmol/L (3.5-5.1); Sodium 136 mmol/L (137-145)
[2023-11-25 07:13] LABS: Glucose,Whole Blood 86 mg/dL (70-110)
--- NOTE | 2023-11-25 07:45 | P.CONS ---
History of Present Illness - Reason for Consult Consult date: 11/24/23 Sacral pressure ulcer Requesting physician: Sabas Garcia - Chief Complaint Worsening sacral wound x days - History of Present Illness Patient is a 73-year-old male with a past medical history significant for diabetes mellitus hypertension hyperlipidemia osteoarthritis history of diabetic foot infection requiring bilateral lwvio-mjb-sold amputation recent admission to the hospital treated for pneumonia UTI and also have a sacral pressure ulcer that was debrided by surgical team and subsequently has been discharged home patient has not been brought back to the hospital concerning for worsening wound as reported by the daughter and inability to take care of the patient at home and possible placement patient on arrival to the ER was afebrile and no fever have been called subsequently patient was nontachycardic hypotensive or hypoxic and no need for supplemental oxygen patient did have a white count of 10.0 with a left shift creatinine was normal CRP mildly elevated liver enzymes are normal patient was started on vancomycin and Zosyn infectious disease was consulted for further management of antibiotic therapy most information has been pain from review the chart as patient was an adequate good historian has been complaining of pain to the sacral wound area unable to quantify it any further and did have pain on movement or shifting position that was done at the time of the evaluation of the wound Review of Systems Positive points has been mentioned in HPI complete review could not be obtained because of his underlying mental status 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 Year Discovered:: 10/28/22 MDRO Source:: Blood Past Surgical History: Heart Catheterization Additional Past Surgical History / Comment(s): bilateral great toes amputated, 2nd toe lt foot partial amputation, multiple debridements of venous ulcers, colonoscopy, surgery as a child for undescended testicle., ABOVE THE KNEE AM PUTATION RIGHT LEG (JUNE 2017-[facility]) Past Anesthesia/Blood Transfusion Reactions: No Reported Reaction Date of Last Stent Placement:: 10/17/2022 Past Psychological History: Anxiety, Depression Smoking Status: Former smoker Past Alcohol Use History: Unable to Obtain Past Drug Use History: Unable to Obtain - Past Family History Father Family Medical History: Cancer Additional Family Medical History / Comment(s): Father from brain cancer Mother Family Medical History: Eye Disorder Additional Family Medical History / Comment(s): Glaucoma. Mother is . Medications and Allergies Home Medications Medication Instructions Recorded Confirmed Type traZODone HCL 50 mg PO HS 11/09/17 11/24/23 History Famotidine [Pepcid] 20 mg PO BID 09/29/22 11/24/23 History Tamsulosin [Flomax] 0.4 mg PO DAILY 09/29/22 11/24/23 History Sodium Bicarbonate Tab 650 mg PO BID #60 tab 07/03/23 11/24/23 Rx amLODIPine [Norvasc] 10 mg PO DAILY #30 tab 07/03/23 11/24/23 Rx Clopidogrel [Plavix] 75 mg PO DAILY 10/02/23 11/24/23 History Glycopyrrolate 1 mg PO TID PRN 10/02/23 11/24/23 History HYDROcodone/APAP 7.5-325MG [[place] 1 tab PO Q6HR PRN 10/02/23 11/24/23 History 7.5-325] Sennosides [Senokot] 8.6 mg PO DAILY 10/02/23 11/24/23 History Acetaminophen Tab [Tylenol] 500 mg PO Q6H PRN 11/10/23 11/24/23 History Atorvastatin Calcium [Lipitor] 80 mg PO HS 11/10/23 11/24/23 History Gabapentin [Neurontin] 300 mg PO BID 11/10/23 11/24/23 History Insulin Lispro [humaLOG Kwikpen] 2 - 20 unit SQ ACHS 11/10/23 11/24/23 History Magnesium Citrate [Citrate of 296 ml PO RING 11/10/23 11/24/23 History Magnesia] Nystatin 100,000 Unit/gm Powd 1 applic TOPICAL BID 11/10/23 11/24/23 History [Mycostatin Powder] Zinc Oxide 20% Oint 1 applic TOPICAL BID PRN each 11/17/23 11/24/23 Rx Insulin Glargine,Hum.rec.anlog 20 units SQ BID 11/24/23 11/24/23 History [Lantus Solostar Pen] Allergies Allergy/AdvReac Type Severity Reaction Status Date / Time No Known Allergies Allergy Verified 11/24/23 10:48 Physical Exam Vitals: Vital Signs Temp Pulse Resp BP Pulse Ox 11/24/23 12:31 80 18 178/72 95 11/24/23 09:56 98.9 F 11/24/23 09:02 99.8 F H 82 18 165/73 98 Intake and Output 11/23/23 11/24/23 11/24/23 22:59 06:59 14:59 Other: Weight 60.8 kg GENERAL DESCRIPTION: Elderly male lying in bed, no distress. No tachypnea or accessory muscle of respiration use. HEENT: Shows Pallor , no scleral icterus. Oral mucous membrane is dry. No pharyngeal erythema or thrush NECK: Trachea central, no thyromegaly. LUNGS: Unlabored breathing. Clear to auscultation anteriorly. No wheeze or crackle. HEART: S1, S2, regular rate and rhythm. No loud murmur ABDOMEN: Soft, no tenderness , EXTREMITIES: No edema of feet. SKIN: Sacral pressure ulcer did have some slough tissue stool contamination of the wound NEUROLOGICAL: The patient is lethargic orientation could not be determined Results CBC & Chem 7: 11/25/23 05:26 11/25/23 05:26 Labs: Abnormal Lab Results - Last 24 Hours (Table) 11/24/23 11/24/23 Range/Units 10:21 10:21 RBC 3.71 L (4.30-5.90) m/uL Hgb 9.3 L (13.0-17.5) gm/dL Hct 30.4 L (39.0-53.0) % MCHC 30.7 L (31.0-37.0) g/dL RDW 16.2 H (11.5-15.5) % Plt Count 536 H (150-450) k/uL Neutrophils # 8.1 H (1.3-7.7) k/uL Sodium 134 L (137-145) mmol/L Glucose 104 H (74-99) mg/dL Calcium 8.3 L (8.4-10.2) mg/dL Alkaline Phosphatase 183 H (38-126) U/L C-Reactive Protein 5.5 H (<1.0) mg/dL Albumin 2.8 L (3.5-5.0) g/dL Assessment and Plan (1) Sacral decubitus ulcer Current Visit: Yes Status: Acute Code(s): L89.159 - PRESSURE ULCER OF SACRAL REGION, UNSPECIFIED STAGE SNOMED Code(s): 382390982 Plan: 1patient presented to the hospital with worsening sacral wound which was recently debrided by surgical team there were no culture done currently wound b ase with minimal slough tissue culture have been obtained to guide further labile therapy consult for possible mild wound infection, keeping in mind close proximity to the anal canal and stool contamination will need to cover for the enteric gram-negative both aerobes and anaerobes. 2we will keep the patient on Zosyn 3.375 g every hour however discontinue vancomycin to decrease risk of nephrotoxicity 3await surgical evaluation of possible repeat debridement and deep culture We will follow on clinical condition and cultures to further adjust medication if needed Thank you for this consultation we will follow the patient along with you Dictation was produced using [employer] dictation software. please excuse any grammatical, word or spelling errors. Time with Patient: Greater than 30
[2023-11-25] MEDS: HYDROcodone/APAP 5-325MG 1 EACH TAB PO PRN (08:32)
--- NOTE | 2023-11-25 08:45 | P.GSCN ---
History of Present Illness Consult date: 11/25/23 History of present illness: 73-year-old male presents to the emergency department by patient's daughter secondary to altered mental status and confusion. He has significant medical history with insulin-dependent diabetes mellitus, hypertension, chronic kidney disease, chronic indwelling Davidson catheter, systolic CHF and COPD along with bilateral above-knee amputations. He was recently evaluated by our group with concern of infected sacral decubitus ulcer and did undergo debridement. This ulcer is notably surrounding the anal canal and is high risk for contaminating infection due to stool output in this area. Patient does have a visiting nurse currently. Review of Systems ROS unobtainable: due to mental status Past Medical History Past Medical History: Dementia, Diabetes Mellitus, Eye Disorder, GERD/Reflux, Hyperlipidemia, Hypertension, Osteoarthritis (OA), Renal Disease Additional Past Medical History / Comment(s): HX of Chronic venous stasis woun ds, IDDM type II, cataracts , arthritis in hands, neuropathy, AKA B/L History of Any Multi-Drug Resistant Organisms: MRSA Year Discovered:: 10/28/22 MDRO Source:: Blood Past Surgical History: Heart Catheterization Additional Past Surgical History / Comment(s): bilateral great toes amputated, 2nd toe lt foot partial amputation, multiple debridements of venous ulcers, colonoscopy, surgery as a child for undescended testicle., ABOVE THE KNEE AMPUTATION RIGHT LEG (JUNE 2017-[facility]) Past Anesthesia/Blood Transfusion Reactions: No Reported Reaction Date of Last Stent Placement:: 10/17/2022 Past Psychological History: Anxiety, Depression Smoking Status: Former smoker Past Alcohol Use History: Unable to Obtain Past Drug Use History: Unable to Obtain - Past Family History Father Family Medical History: Cancer Additional Family Medical History / Comment(s): Father from brain cancer Mother Family Medical History: Eye Disorder Additional Family Medical History / Comment(s): Glaucoma. Mother is . Medications and Allergies Home Medications Medication Instructions Recorded Confirmed Type RX: traZODone HCL 50 mg PO HS 11/09/17 11/24/23 History RX: Famotidine [Pepcid] 20 mg PO BID 09/29/22 11/24/23 History RX: Tamsulosin [Flomax] 0.4 mg PO DAILY 09/29/22 11/24/23 History RX: Sodium Bicarbonate Tab 650 mg PO BID #60 tab 07/03/23 11/24/23 Rx RX: amLODIPine [Norvasc] 10 mg PO DAILY #30 tab 07/03/23 11/24/23 Rx RX: Clopidogrel [Plavix] 75 mg PO DAILY 10/02/23 11/24/23 History RX: Glycopyrrolate 1 mg PO TID PRN 10/02/23 11/24/23 History RX: HYDROcodone/APAP 7.5-325MG 1 tab PO Q6HR PRN 10/02/23 11/24/23 History [[place] 7.5-325] RX: Sennosides [Senokot] 8.6 mg PO DAILY 10/02/23 11/24/23 History RX: Acetaminophen Tab [Tylenol] 500 mg PO Q6H PRN 11/10/23 11/24/23 History RX: Atorvastatin Calcium [Lipitor] 80 mg PO HS 11/10/23 11/24/23 History RX: Gabapentin [Neurontin] 300 mg PO BID 11/10/23 11/24/23 History RX: Insulin Lispro [humaLOG 2 - 20 unit SQ ACHS 11/10/23 11/24/23 History Kwikpen] RX: Magnesium Citrate [Citrate of 296 ml PO RING 11/10/23 11/24/23 History Magnesia] RX: Nystatin 100,000 Unit/gm Powd 1 applic TOPICAL BID 11/10/23 11/24/23 History [Mycostatin Powder] RX: Zinc Oxide 20% Oint 1 applic TOPICAL BID PRN each 11/17/23 11/24/23 Rx RX: Insulin Glargine,Hum.rec.anlog 20 units SQ BID 11/24/23 11/24/23 History [Lantus Solostar Pen] Allergies Allergy/AdvReac Type Severity Reaction Status Date / Time No Known Allergies Allergy Verified 11/24/23 10:48 Surgical - Exam Osteopathic Statement: *. No significant issues noted on an osteopathic structural exam other than those noted in the History and Physical/Consult. Vital Signs Temp Pulse Resp BP Pulse Ox 99.8 F H 82 18 165/73 98 11/24/23 09:02 11/24/23 09:02 11/24/23 09:02 11/24/23 09:02 11/24/23 09:02 - General no distress - Eyes PERRL - Neck trachea midline - Respiratory normal respiratory effort - Abdomen Abdomen: soft, non tender - Integumentary Stage III versus stage IV laceration and wound surrounding the anus and rectum with stool contaminating the area Results - Labs 11/25/23 05:26 11/25/23 05:26 Abnormal Lab Results - Last 24 Hours (Table) 11/24/23 11/24/23 11/24/23 Range/Units 10:21 10:21 21:46 RBC 3.71 L (4.30-5.90) m/uL Hgb 9.3 L (13.0-17.5) gm/dL Hct 30.4 L (39.0-53.0) % MCHC 30.7 L (31.0-37.0) g/dL RDW 16.2 H (11.5-15.5) % Plt Count 536 H (150-450) k/uL Neutrophils # 8.1 H (1.3-7.7) k/uL Sodium 134 L (137-145) mmol/L Chloride (98-107) mmol/L Carbon Dioxide (22-30) mmol/L Glucose 104 H (74-99) mg/dL POC Glucose (mg/dL) 232 H (70-110) mg/dL Calcium 8.3 L (8.4-10.2) mg/dL Alkaline Phosphatase 183 H (38-126) U/L C-Reactive Protein 5.5 H (<1.0) mg/dL Albumin 2.8 L (3.5-5.0) g/dL 11/25/23 11/25/23 Range/Units 05:26 05:26 RBC 3.39 L (4.30-5.90) m/uL Hgb 8.7 L (13.0-17.5) gm/dL Hct 28.9 L (39.0-53.0) % MCHC 30.1 L (31.0-37.0) g/dL RDW 16.4 H (11.5-15.5) % Plt Count 481 H (150-450) k/uL Neutrophils # (1.3-7.7) k/uL Sodium 136 L (137-145) mmol/L Chloride 109 H (98-107) mmol/L Carbon Dioxide 19 L (22-30) mmol/L Glucose (74-99) mg/dL POC Glucose (mg/dL) (70-110) mg/dL Calcium 8.1 L (8.4-10.2) mg/dL Alkaline Phosphatase (38-126) U/L C-Reactive Protein (<1.0) mg/dL Albumin (3.5-5.0) g/dL Diabetes panel 11/24/23 11/25/23 Range/Units 10:21 05:26 Sodium 134 L 136 L (137-145) mmol/L Potassium 5.1 4.2 (3.5-5.1) mmol/L Chloride 106 109 H (98-107) mmol/L Carbon Dioxide 25 19 L (22-30) mmol/L BUN 13 11 (9-20) mg/dL Creatinine 0.74 0.75 (0.66-1.25) mg/dL Glucose 104 H 81 (74-99) mg/dL Calcium 8.3 L 8.1 L (8.4-10.2) mg/dL AST 44 (17-59) U/L ALT 15 (4-49) U/L Alkaline Phosphatase 183 H (38-126) U/L Total Protein 6.5 (6.3-8.2) g/dL Albumin 2.8 L (3.5-5.0) g/dL Calcium panel 11/24/23 11/25/23 Range/Units 10:21 05:26 Calcium 8.3 L 8.1 L (8.4-10.2) mg/dL Albumin 2.8 L (3.5-5.0) g/dL Pituitary panel 11/24/23 11/25/23 Range/Units 10:21 05:26 Sodium 134 L 136 L (137-145) mmol/L Potassium 5.1 4.2 (3.5-5.1) mmol/L Chloride 106 109 H (98-107) mmol/L Carbon Dioxide 25 19 L (22-30) mmol/L BUN 13 11 (9-20) mg/dL Creatinine 0.74 0.75 (0.66-1.25) mg/dL Glucose 104 H 81 (74-99) mg/dL Calcium 8.3 L 8.1 L (8.4-10.2) mg/dL Adrenal panel 11/24/23 11/25/23 Range/Units 10:21 05:26 Sodium 134 L 136 L (137-145) mmol/L Potassium 5.1 4.2 (3.5-5.1) mmol/L Chloride 106 109 H (98-107) mmol/L Carbon Dioxide 25 19 L (22-30) mmol/L BUN 13 11 (9-20) mg/dL Creatinine 0.74 0.75 (0.66-1.25) mg/dL Glucose 104 H 81 (74-99) mg/dL Calcium 8.3 L 8.1 L (8.4-10.2) mg/dL Total Bilirubin 0.6 (0.2-1.3) mg/dL AST 44 (17-59) U/L ALT 15 (4-49) U/L Alkaline Phosphatase 183 H (38-126) U/L Total Protein 6.5 (6.3-8.2) g/dL Albumin 2.8 L (3.5-5.0) g/dL Assessment and Plan Plan: 73-year-old male with wound surrounding the anus and rectum with continued contamination. At this point, further debridement would likely injure the rectum and create concern for fistula creation. Goals of care discussion should be had with family as it is likely that patient would require diverting ostomy for appropriate wound healing at this wound site. Currently, on evaluation of the wound it is difficult to diagnose active infection, however with continued contamination it is likely that patient will develop a chronically infected area. Continue with IV antibiotics at this point. Okay to have diet. Further discussion based on patient's goals of care.
--- NOTE | 2023-11-25 11:21 | P.CONS ---
History of Present Illness - Reason for Consult Consult date: 11/25/23 wound care - History of Present Illness This is a 73-year-old patient being seen by the wound care center for nonhealing ulceration to the sacrum. Patient was seen approximately 1 week ago for the same ulceration. At that time it was discussed that ulceration will not heal because it is consistently soiled. Consideration for a colostomy to help with healing. Unable to apply negative pressure wound VAC due to the location. Concerns for frequent debridements related to possible development of fistula. Discussion for possible hospice consideration also given at that time. History chief complaint. This patient has multiple rather severe comorbidities. He is status post bilateral AKA. He is currently admitted for change of mental status and metabolic encephalopathy. He is diabetic and hypertensive. He is status post PCI. About 6 weeks ago he had a thoracentesis and currently does have a hydropneumothorax. Given the patient's debilitated status and altered mental status the patient is dependent on utilizing incontinence garments and a chronic indwelling Davidson catheter. Physical examination: the patient has a large area of excoriation just above the rectum posteriorly. He has some areas of necrosis. The area appears to be chronically soiled. Recommendation: Utilize zinc barrier cream to excoriated areas. Wet to dry dressing. I think it is most likely that the patient will require a colostomy to fully treat this problem given its proximity to the rectum and is debilitated status. However, in view of his multiple severe comorbidities, this will probably require some medical stabilization. Hospice might even be considered. Thank you for the consultation any questions please contact the wound care center DNP note has been reviewed and discussed with Dr. Rebolledo and the impression and plan of care has been directed as dictated. 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 Year Discovered:: 10/28/22 MDRO Source:: Blood Past Surgical History: Heart Catheterization Additional Past Surgical History / Comment(s): bilateral great toes amputated, 2nd toe lt foot partial amputation, multiple debridements of venous ulcers, colonoscopy, surgery as a child for undescended testicle., ABOVE THE KNEE AMPUTATION RIGHT LEG (JUNE 2017-[facility]) Past Anesthesia/Blood Transfusion Reactions: No Reported Reaction Date of Last Stent Placement:: 10/17/2022 Past Psychological History: Anxiety, Depression Smoking Status: Former smoker Past Alcohol Use History: Unable to Obtain Past Drug Use History: Unable to Obtain - Past Family History Father Family Medical History: Cancer Additional Family Medical History / Comment(s): Father from brain cancer Mother Family Medical History: Eye Disorder Additional Family Medical History / Comment(s): Glaucoma. Mother is . Medications and Allergies Home Medications Medication Instructions Recorded Confirmed Type traZODone HCL 50 mg PO HS 11/09/17 11/24/23 History Famotidine [Pepcid] 20 mg PO BID 09/29/22 11/24/23 History Tamsulosin [Flomax] 0.4 mg PO DAILY 09/29/22 11/24/23 History Sodium Bicarbonate Tab 650 mg PO BID #60 tab 07/03/23 11/24/23 Rx amLODIPine [Norvasc] 10 mg PO DAILY #30 tab 07/03/23 11/24/23 Rx Clopidogrel [Plavix] 75 mg PO DAILY 10/02/23 11/24/23 History Glycopyrrolate 1 mg PO TID PRN 10/02/23 11/24/23 History HYDROcodone/APAP 7.5-325MG [[place] 1 tab PO Q6HR PRN 10/02/23 11/24/23 History 7.5-325] Sennosides [Senokot] 8.6 mg PO DAILY 10/02/23 11/24/23 History Acetaminophen Tab [Tylenol] 500 mg PO Q6H PRN 11/10/23 11/24/23 History Atorvastatin Calcium [Lipitor] 80 mg PO HS 11/10/23 11/24/23 History Gabapentin [Neurontin] 300 mg PO BID 11/10/23 11/24/23 History Insulin Lispro [humaLOG Kwikpen] 2 - 20 unit SQ ACHS 11/10/23 11/24/23 History Magnesium Citrate [Citrate of 296 ml PO RING 11/10/23 11/24/23 History Magnesia] Nystatin 100,000 Unit/gm Powd 1 applic TOPICAL BID 11/10/23 11/24/23 History [Mycostatin Powder] Zinc Oxide 20% Oint 1 applic TOPICAL BID PRN each 11/17/23 11/24/23 Rx Insulin Glargine,Hum.rec.anlog 20 units SQ BID 11/24/23 11/24/23 History [Lantus Solostar Pen] Allergies Allergy/AdvReac Type Severity Reaction Status Date / Time No Known Allergies Allergy Verified 11/24/23 10:48 Physical Exam Vitals: Vital Signs Temp Pulse Pulse Resp BP BP Pulse Ox 11/25/23 07:11 98.5 F 80 17 180/65 99 11/25/23 02:40 68 16 11/25/23 00:57 98.1 F 68 16 163/79 97 11/24/23 22:20 98.3 F 76 18 183/78 91 L 11/24/23 21:57 79 18 174/73 95 11/24/23 18:12 98 F 89 18 167/54 98 11/24/23 12:31 80 18 178/72 95 Intake and Output 11/24/23 11/25/23 11/25/23 22:59 06:59 14:59 Intake Total 220 240 Output Total 1600 Balance -1380 240 Intake: Intake, IV Titration 100 Amount Piperacillin-Tazobactam 3 100 .375 gm In Sodium Chloride 0.9% 100 ml @ 25 mls/hr IVPB Q8H [facility] Rx#: [id number] Oral 120 240 Output: Urine 1600 Other: Voiding Method Indwelling Catheter Indwelling Catheter Weight 60.8 kg Results CBC & Chem 7: 11/25/23 05:26 11/25/23 05:26 Labs: Abnormal Lab Results - Last 24 Hours (Table) 11/24/23 11/25/23 11/25/23 Range/Units 21:46 05:26 05:26 RBC 3.39 L (4.30-5.90) m/uL Hgb 8.7 L (13.0-17.5) gm/dL Hct 28.9 L (39.0-53.0) % MCHC 30.1 L (31.0-37.0) g/dL RDW 16.4 H (11.5-15.5) % Plt Count 481 H (150-450) k/uL Sodium 136 L (137-145) mmol/L Chloride 109 H (98-107) mmol/L Carbon Dioxide 19 L (22-30) mmol/L POC Glucose (mg/dL) 232 H (70-110) mg/dL Calcium 8.1 L (8.4-10.2) mg/dL Assessment and Plan (1) Unstageable pressure ulcer of sacral region Current Visit: Yes Status: Acute Code(s): L89.150 - PRESSURE ULCER OF SACRAL REGION, UNSTAGEABLE SNOMED Code(s): 20319537819220513
[2023-11-25 12:02] VITALS: BMI 50.9
[2023-11-25 12:29] LABS: Glucose,Whole Blood 95 mg/dL (70-110)
--- NOTE | 2023-11-25 12:32 | P.PN ---
Subjective Progress Note Date: 11/25/23 Principal diagnosis: Reason for follow-up is infected sacral ulcer and diarrhea Patient is a 73-year-old male with a past medical history significant for diabetes mellitus hypertension hyperlipidemia osteoarthritis history of diabetic foot infection requiring bilateral [id number] amputation recent admission to the hospital treated for pneumonia UTI and also have a sacral pressure ulcer that was debrided, patient brought back to the hospital concerning for worsening wound and unable to be taken care of at home. On today's evaluation that is 11/25/2023, Patient is afebrile this morning patient slightly more awake and alert but not a very good historian no vomiting has been reported still have diarrhea has reported by the daughter at the bedside no worsening pain to the sacral wound. Patient white count is 8.9, creatinine 0.75 Objective - Vital Signs Vital signs: Vital Signs Temp 98.5 F 11/25/23 07:11 Pulse 80 11/25/23 07:11 Resp 17 11/25/23 07:11 BP 180/65 11/25/23 07:11 Pulse Ox 99 11/25/23 07:11 FiO2 Intake & Output 11/24/23 11/25/23 11/25/23 18:59 06:59 18:59 Intake Total 220 240 Output Total 1600 Balance -1380 240 Weight 60.8 kg 60.8 kg 60.8 kg Intake: Intake, IV Titration 100 Amount Piperacillin-Tazobactam 3 100 .375 gm In Sodium Chloride 0.9% 100 ml @ 25 mls/hr IVPB Q8H [facility] Rx#: [id number] Oral 120 240 Output: Urine 1600 Other: Voiding Method Indwelling Catheter Indwelling Catheter - Exam GENERAL DESCRIPTION: An elderly male lying in bed in no distress RESPIRATORY SYSTEM: Unlabored breathing , decreased breath sounds at bases HEART: S1 S2 regular rate and rhythm , ABDOMEN: Soft , no tenderness EXTREMITIES: Bilateral AKA stumps are currently healed - Labs CBC & Chem 7: 11/25/23 05:26 11/25/23 05:26 Labs: Abnormal Lab Results - Last 24 Hours (Table) 11/24/23 11/25/23 11/25/23 Range/Units 21:46 05:26 05:26 RBC 3.39 L (4.30-5.90) m/uL Hgb 8.7 L (13.0-17.5) gm/dL Hct 28.9 L (39.0-53.0) % MCHC 30.1 L (31.0-37.0) g/dL RDW 16.4 H (11.5-15.5) % Plt Count 481 H (150-450) k/uL Sodium 136 L (137-145) mmol/L Chloride 109 H (98-107) mmol/L Carbon Dioxide 19 L (22-30) mmol/L POC Glucose (mg/dL) 232 H (70-110) mg/dL Calcium 8.1 L (8.4-10.2) mg/dL Assessment and Plan (1) Sacral decubitus ulcer Current Visit: Yes Status: Acute Code(s): L89.159 - PRESSURE ULCER OF SACRAL REGION, UNSPECIFIED STAGE SNOMED Code(s): 911840929 (2) Diarrhea Current Visit: Yes Status: Acute Code(s): R19.7 - [place], UNSPECIFIED SNOMED Code(s): 70318143 Plan: 1patient presented to the hospital with worsening sacral wound which was recently debrided by surgical team there were no culture done currently wound base with minimal slough tissue culture have been obtained to guide further labile therapy consult for possible mild wound infection, keeping in mind close proximity to the anal canal and stool contamination will need to cover for the enteric gram-negative both aerobes and anaerobes. 2patient to continue Zosyn 3.375 g every hour 3we will check a stool for C. difficile keeping in mind significant diarrhea Daughter at the bedside questions answered Dictation was produced using [employer] dictation software. please excuse any grammatical, word or spelling errors. Time with Patient: Less than 30
[2023-11-25] MEDS ORDERED: GLYCOPYRROLATE 1 MG TAB PO PRN (13:00)
[2023-11-25] MEDS: NYSTATIN 100,000 UNIT/GM POWD 15 GM TOPICAL SCH (13:32)
[2023-11-25] MEDS: GABAPENTIN 300 MG CAP PO SCH (13:32)
[2023-11-25 17:13] LABS: Glucose,Whole Blood 133 mg/dL (70-110)
[2023-11-25 20:12] LABS: Glucose,Whole Blood 279 mg/dL (70-110)
[2023-11-25] MEDS: HYDROcodone/APAP 7.5-325MG 1 EACH TAB PO PRN (20:49)
[2023-11-26 06:52] LABS: Glucose,Whole Blood 149 mg/dL (70-110)
[2023-11-26 07:58] LABS: African American GFR (CKD) >90 (>60 ml/min/1.73 sqM); Non-African American GFR(CKD) >90 (>60 ml/min/1.73 sqM)
[2023-11-26] MEDS ORDERED: VANCOMYCIN TROUGH DUE 1 EACH MISC MISCELLANE ONE (08:00)
[2023-11-26] MEDS ORDERED: ZINC OXIDE PASTE (Z-GUARD) 1 APPLIC TOPICAL PRN (09:21)
--- NOTE | 2023-11-26 10:46 | P.PN ---
Progress Note - Text Progress Note Date: 11/25/23 Chief Complaint: sacral decubitus ulcer Patient is a 73-year-old male with PMH of IDDM, hypertension, CKD stage II, chronic indwelling Davidson catheter, systolic CHF with ejection fraction of 40 to 45%, dementia, COPD with chronic hypoxemic respiratory failure not on home oxygen and bilateral AKA was brought to the ER by EMS for sacral decubitus ulcers. Patient has dementia and altered mental status and is not able to provide any reasonable history at the time of interview. History was mainly obtained from his daughter via phone call. According to his daughter, patient was doing generally well until this morning when he woke up seemingly confused and out of place. Patient was recently hospitalized for altered mentation on 11/10/2023 and was discharged after a month-long hospital course on 11/20/2023. Patient was discharged home with wound care provided by the visiting nurse. It was day one of the nurse visiting the patient for the wound care when she alerted the daughter to infectious sacral decubitus ulcers. Patient had fever and chills with poor appetite this morning. Patient did have debridement done on November [address] Alves from general surgery during the course of previous admission. Per ID Sayed patient was at high risk for second infection because of its location and probability of getting contaminated with stool and was advised to keep the area clean and of pressure. Patient was not discharged on any oral antibiotics. November 24: Laying in bed. Comfortable. Answering some question. Patient on IV Zosyn. Eating about 50%. Appears comfortable. Spoke to Dr. Lambert the surgeon and he agrees that diverting colostomy and the only option if any sacral wound has not improved. Also spoke at length with patient's daughter Gennaro on the phone. Antibiotics will frankly not help much. She will talk to her brother small battery plate assembler and get back to us. I did also then talk about hospice. At this point they are leaning towards continued care. Total time spent today about 50 minutes with over 30 minutes of discussion. Active Medications Acetaminophen (Acetaminophen Tab 325 Mg Tab) 650 mg PO Q6HR PRN PRN Reason: Mild Pain or Fever > 100.5 Hydrocodone Bitart/Acetaminophen (Hydrocodone/Apap 5-325mg 1 Each Tab) 1 each PO Q4HR PRN PRN Reason: Pain Last Admin: 11/25/23 13:31 Dose: 1 each Hydrocodone Bitart/Acetaminophen (Hydrocodone/Apap 7.5-325mg 1 Each Tab) 1 each PO Q6HR PRN PRN Reason: Pain Amlodipine Besylate (Amlodipine 10 Mg Tab) 10 mg PO DAILY [facility] Last Admin: 11/25/23 08:32 Dose: 10 mg Atorvastatin Calcium (Atorvastatin 80 Mg Tab) 80 mg PO HS [facility] Last Admin: 11/24/23 21:58 Dose: 80 mg Clopidogrel Bisulfate (Clopidogrel 75 Mg Tab) 75 mg PO DAILY [facility] Last Admin: 11/25/23 08:32 Dose: 75 mg Dextrose/Water (Dextrose 50% Syringe 50 Ml) 25 ml IVP PER PROTOCOL PRN; Protocol PRN Reason: Hypoglycemia Dextrose/Water (Dextrose 50% Syringe 50 Ml) 50 ml IVP PER PROTOCOL PRN; Protocol PRN Reason: Hypoglycemia Enoxaparin Sodium (Enoxaparin 40 Mg/0.4 Ml Syringe) 40 mg SQ DAILY [facility] Last Admin: 11/25/23 08:33 Dose: 40 mg Famotidine (Famotidine 20 Mg Tab) 20 mg PO BID [facility] Last Admin: 11/25/23 08:33 Dose: 20 mg Gabapentin (Gabapentin 300 Mg Cap) 300 mg PO BID [facility] Last Admin: 11/25/23 13:32 Dose: 300 mg Glycopyrrolate (Glycopyrrolate 1 Mg Tab) 1 mg PO TID PRN PRN Reason: drooling Sodium Chloride (Saline 0.9%) 1,000 mls @ 75 mls/hr IV .[id number] [facility] Last Admin: 11/25/23 17:13 Dose: Not Given Piperacillin Sod/Tazobactam (Sod 3.375 gm/ Sodium Chloride) 100 mls @ 25 mls/hr IVPB Q8H [facility]; Protocol Last Admin: 11/25/23 17:32 Dose: 25 mls/hr Insulin Aspart (Insulin Aspart (Novolog) 100 Unit/Ml Vial) 0 unit SQ ACHS [facility]; Protocol Last Admin: 11/25/23 17:16 Dose: Not Given Morphine Sulfate (Morphine Sulfate 2 Mg/Ml Syringe) 2 mg IVP Q4HR PRN PRN Reason: Pain/Discomfort Last Admin: 11/24/23 18:16 Dose: 2 mg Naloxone HCl (Naloxone 0.4 Mg/Ml 1 Ml Vial) 0.2 mg IV Q2M PRN PRN Reason: Opioid Reversal Nystatin (Nystatin 100,000 Unit/Gm Powd 15 Gm) 1 applic TOPICAL BID [facility]; Protocol Last Admin: 11/25/23 13:32 Dose: 1 applic Ondansetron HCl (Ondansetron 4 Mg/2 Ml Vial) 4 mg IVP Q8HR PRN PRN Reason: Nausea And Vomiting Tamsulosin HCl (Tamsulosin 0.4 Mg Cap.Er.24h) 0.4 mg PO DAILY [facility] Last Admin: 11/25/23 08:32 Dose: 0.4 mg Trazodone HCl (Trazodone Hcl 50 Mg Tab) 50 mg PO HS [facility] Last Admin: 11/24/23 21:58 Dose: 50 mg Social history: Former smoker. Cared for by his daughter. Physical examination: VITAL SIGNS: 98.1, 76, 16, 156 x 64, 99% room air GENERAL: Laying in bed. Comfortable EYES: [Pupils equal. Conjunctiva pale HEENT: External appearance of nose and ears normal, oral cavity less dry mucous membrane. NECK: JVD not raised; masses not palpable. HEART: First and second heart sounds are normal; no edema. LUNGS: Respiratory rate increased; decreased breath sounds. ABDOMEN: Soft, nontender, liver spleen not palpable, no masses palpable. Davidson catheter PSYCH: Answering simple questions MUSCULOSKELETAL:No Clubbing/cyanosis;muscles-grossly intact. Sacral decubitus wound NEUROLOGICAL: [Cranial nerves grossly intact; no facial asymmetry, bilateral above-knee amputation INVESTIGATIONS, reviewed in the clinical context: November 25, 2023: White count 8.9 hemoglobin 8.7 platelets 41 potassium 4.2 BUN 11 creatinine 0.75 Assessment plan: #Sacral decubitus ulcer, unstageable On last admission patient had debridement done by Dr. Alves. Discussed with Dr. Lambert from surgery. Diverting colostomy will be the only option. Antibiotics will really not serve much. Spoke to the daughter today. She will get back to us. After talking to her brother. 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 Follow Accu-Cheks -Chronic left kidney atrophy -Chronic bilateral above-knee amputation -Primary osteoarthritis -Essential hypertension -Chronic bladder outflow obstruction BPH, with chronic Davidson catheter Flomax -Chronic congestive heart failure from systolic dysfunction EF 40 to 45% -Peripheral neuropathy -Moderate protein calorie malnutrition decreased oral intake Ensure -Full code 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 Date of last positivie culture/infection: 10/28/22 MDRO Source:: Blood Past Surgical History: Heart Catheterization Additional Past Surgical History / Comment(s): bilateral great toes amputated, 2nd toe lt foot partial amputation, multiple debridements of venous ulcers, colonoscopy, surgery as a child for undescended testicle., ABOVE THE KNEE AMPUTATION RIGHT LEG (JUNE 2017-[facility]) Past Anesthesia/Blood Transfusion Reactions: No Reported Reaction Date of Last Stent Placement:: 10/17/2022 Past Psychological History: Anxiety, Depression Smoking Status: Former smoker Past Alcohol Use History: Unable to Obtain Past Drug Use History: Unable to Obtain
--- NOTE | 2023-11-26 11:52 | P.CRDCN ---
History of Present Illness History of present illness: HISTORY OF PRESENT ILLNESS: This is a 73-year-old male with a past medical history significant for paroxysmal atrial fibrillation, coronary artery disease, severe peripheral vascular disease, bilateral iwwpl-wns-pwkr amputations, COPD, hypertension, hyperlipidemia, and diabetes. Patient follows in the office with Dr. Starks. We have been asked to see the patient in consultation for preop clearance. Patient examined at the bedside. Patient currently denies any chest pain or pressure. He denies shortness of breath. Patient's blood pressures are elevated with a recent reading in the 180s. Patient is admitted to the hospital due to a large sacral ulcer. General surgery is apparently planning for diverting colostomy tomorrow. DIAGNOSTICS: - EKG reveals sinus mechanism with no signs of acute ischemia - Laboratory data: WBC 8.9. Hemoglobin 8.7. Platelet count 481. Sodium 136. Potassium 4.2. BUN 11. Creatinine 0.75. Magnesium 1.6. - Current home cardiac medications include amlodipine 10 mg daily, Plavix 75 mg daily, Lipitor 80 mg at night - Most recent echocardiogram obtained in May 2023 revealed ejection fraction 40 to 45% - Cardiac catheterization history: October 2022 with stenting of the mid LAD REVIEW OF SYSTEMS: At the time of my exam: CONSTITUTIONAL: Denies fever or chills. HEENT: Denies blurred vision, vision changes, or eye pain. Denies hemoptysis CARDIOVASCULAR: Denies chest pain. Denies orthopnea. Denies PND. Denies palpitations RESPIRATORY: Denies shortness of breath. GASTROINTESTINAL: Denies abdominal pain. Denies nausea or vomiting. HEMATOLOGIC: Denies bleeding disorders. GENITOURINARY: Denies any blood in urine. SKIN: Denies pruitis. Denies rash. PHYSICAL EXAM: VITAL SIGNS: Reviewed. GENERAL: Well-developed in no acute distress. HEENT: Head is normocephalic. Pupils are equal, round. Sclerae anicteric. Mucous membranes of the mouth are moist. Neck supple. No JVD or thyromegaly LUNGS: Respirations even and unlabored. Lungs essentially clear to auscultation bilaterally. HEART: Regular rate and rhythm. S1 and S2 heard. ABDOMEN: Soft. Nondistended. Nontender. EXTREMITIES: Normal range of motion. No clubbing or cyanosis. Bilateral lffop-nwc-evuq amputations NEUROLOGIC: Awake and alert. Oriented x 3. ASSESSMENT: Large sacral wound, s/p debridement 11/19/2023 Coronary artery disease with previous stenting of the RCA and most recently LAD, October 2022 Paroxysmal atrial fibrillation Peripheral vascular disease History of bilateral sguop-msw-kuab amputations Chronic heart failure with reduced EF, 40 to 45%, currently euvolemic Hypertension, currently uncontrolled with systolic blood pressure of 180 Hyperlipidemia COPD Diabetes Former nicotine dependence PLAN: Obtain 2D echo to assess cardiac structure and function Continue current cardiac medications Patient's last stent placement was greater than 12 months ago. Will discontinue Plavix. Begin aspirin 81 mg daily. Patient was previously on anticoagulation for atrial fibrillation. However when patient was admitted to the hospital he is no longer on anticoagulation. The reason for this is unknown. Postoperatively, patient will need to be reevaluated to be initiated on anticoagulation for thromboembolic protection Add losartan 25 mg daily for optimal blood pressure control Patient is currently euvolemic upon examination with no complaints of angina. P atient is at intermediate risk to undergo surgery from a cardiac standpoint. However there are no absolute contraindications. Further recommendations pending patient course Nurse practitioner note has been reviewed by physician. 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 Date of last positivie culture/infection: 10/28/22 MDRO Source:: Blood Past Surgical History: Heart Catheterization Additional Past Surgical History / Comment(s): bilateral great toes amputated, 2nd toe lt foot partial amputation, multiple debridements of venous ulcers, colonoscopy, surgery as a child for undescended testicle., ABOVE THE KNEE AMPUTATION RIGHT LEG (JUNE 2017-[facility]) Past Anesthesia/Blood Transfusion Reactions: No Reported Reaction Date of Last Stent Placement:: 10/17/2022 Past Psychological History: Anxiety, Depression Smoking Status: Former smoker Past Alcohol Use History: Unable to Obtain Past Drug Use History: Unable to Obtain - Past Family History Father Family Medical History: Cancer Additional Family Medical History / Comment(s): Father from brain cancer Mother Family Medical History: Eye Disorder Additional Family Medical History / Comment(s): Glaucoma. Mother is . Medications and Allergies Home Medications Medication Instructions Recorded Confirmed Type traZODone HCL 50 mg PO HS 11/09/17 11/24/23 History Famotidine [Pepcid] 20 mg PO BID 09/29/22 11/24/23 History Tamsulosin [Flomax] 0.4 mg PO DAILY 09/29/22 11/24/23 History Sodium Bicarbonate Tab 650 mg PO BID #60 tab 07/03/23 11/24/23 Rx amLODIPine [Norvasc] 10 mg PO DAILY #30 tab 07/03/23 11/24/23 Rx Clopidogrel [Plavix] 75 mg PO DAILY 10/02/23 11/24/23 History Glycopyrrolate 1 mg PO TID PRN 10/02/23 11/24/23 History HYDROcodone/APAP 7.5-325MG [[place] 1 tab PO Q6HR PRN 10/02/23 11/24/23 History 7.5-325] Sennosides [Senokot] 8.6 mg PO DAILY 10/02/23 11/24/23 History Acetaminophen Tab [Tylenol] 500 mg PO Q6H PRN 11/10/23 11/24/23 History Atorvastatin Calcium [Lipitor] 80 mg PO HS 11/10/23 11/24/23 History Gabapentin [Neurontin] 300 mg PO BID 11/10/23 11/24/23 History Insulin Lispro [humaLOG Kwikpen] 2 - 20 unit SQ ACHS 11/10/23 11/24/23 History Magnesium Citrate [Citrate of 296 ml PO RING 11/10/23 11/24/23 History Magnesia] Nystatin 100,000 Unit/gm Powd 1 applic TOPICAL BID 11/10/23 11/24/23 History [Mycostatin Powder] Zinc Oxide 20% Oint 1 applic TOPICAL BID PRN each 11/17/23 11/24/23 Rx Insulin Glargine,Hum.rec.anlog 20 units SQ BID 11/24/23 11/24/23 History [Lantus Solostar Pen] Allergies Allergy/AdvReac Type Severity Reaction Status Date / Time No Known Allergies Allergy Verified 11/24/23 10:48 Physical Exam Vitals: Vital Signs Temp Pulse Resp BP BP Pulse Ox 11/26/23 06:47 97.5 F L 74 15 181/68 99 11/26/23 01:02 97.7 F 77 16 174/71 96 11/25/23 19:19 98.0 F 76 18 175/50 98 11/25/23 14:00 98.1 F 76 16 156/64 99 Intake and Output 11/25/23 11/26/23 11/26/23 22:59 06:59 14:59 Intake Total 1020 240 Output Total 700 1000 Balance 320 -1000 240 Intake: Oral 1020 240 Output: Urine 1000 Urine/Stool Mix 700 Other: Voiding Method Indwelling Catheter Indwelling Catheter # Bowel Movements 1 1 Results 11/25/23 05:26 11/26/23 07:01 Comprehensive Metabolic Panel 11/26/23 Range/Units 07:01 Creatinine 0.73 (0.66-1.25) mg/dL Current Medications Generic Name Dose Route Start Last Admin Trade Name Freq PRN Reason Stop Dose Admin Acetaminophen 650 mg 11/24/23 12:15 Acetaminophen Tab 325 Mg Tab PO Q6HR PRN Mild Pain or Fever > 100.5 Hydrocodone Bitart/Acetaminophen 1 each 11/24/23 17:09 11/25/23 13:31 Hydrocodone/Apap 5-325mg 1 Each Tab PO 1 each Q4HR PRN Administration Pain Hydrocodone Bitart/Acetaminophen 1 each 11/25/23 13:00 11/26/23 09:03 Hydrocodone/Apap 7.5-325mg 1 Each Tab PO 1 each Q6HR PRN Administration Pain Amlodipine Besylate 10 mg 11/24/23 16:00 11/26/23 09:03 Amlodipine 10 Mg Tab PO 10 mg DAILY [facility] Administration Atorvastatin Calcium 80 mg 11/24/23 21:00 11/25/23 20:49 Atorvastatin 80 Mg Tab PO 80 mg HS [facility] Administration Clopidogrel Bisulfate 75 mg 11/24/23 16:00 11/26/23 09:03 Clopidogrel 75 Mg Tab PO 75 mg DAILY [facility] Administration Dextrose/Water 25 ml 11/24/23 16:53 Dextrose 50% Syringe 50 Ml IVP PER PROTOCOL PRN Hypoglycemia Protocol Dextrose/Water 50 ml 11/24/23 16:53 Dextrose 50% Syringe 50 Ml IVP PER PROTOCOL PRN Hypoglycemia Protocol Enoxaparin Sodium 40 mg 11/24/23 16:00 11/26/23 09:03 Enoxaparin 40 Mg/0.4 Ml Syringe SQ 40 mg DAILY [facility] Administration Famotidine 20 mg 11/24/23 21:00 11/26/23 09:03 Famotidine 20 Mg Tab PO 20 mg BID [facility] Administration Gabapentin 300 mg 11/25/23 13:15 11/26/23 09:03 Gabapentin 300 Mg Cap PO 300 mg BID [facility] Administration Glycopyrrolate 1 mg 11/25/23 13:00 Glycopyrrolate 1 Mg Tab PO TID PRN drooling Sodium Chloride 1,000 mls @ 75 mls/hr 11/24/23 12:15 11/26/23 03:55 Saline 0.9% IV 75 mls/hr .[id number] [facility] Administration Piperacillin Sod/Tazobactam 100 mls @ 25 mls/hr 11/24/23 18:00 11/26/23 03:54 Sod 3.375 gm/ Sodium Chloride IVPB 25 mls/hr Q8H [facility] Administration Protocol Insulin Aspart 0 unit 11/24/23 17:30 11/26/23 07:45 Insulin Aspart (Novolog) 100 Unit/Ml Vial SQ Not Given ACHS [facility] Protocol Morphine Sulfate 2 mg 11/24/23 17:09 11/24/23 18:16 Morphine Sulfate 2 Mg/Ml Syringe IVP 2 mg Q4HR PRN Administration Pain/Discomfort Naloxone HCl 0.2 mg 11/24/23 12:15 Naloxone 0.4 Mg/Ml 1 Ml Vial IV Q2M PRN Opioid Reversal Nystatin 1 applic 11/25/23 13:00 11/26/23 09:04 Nystatin 100,000 Unit/Gm Powd 15 Gm TOPICAL 1 applic BID [facility] Administration Protocol Ondansetron HCl 4 mg 11/24/23 12:15 Ondansetron 4 Mg/2 Ml Vial IVP Q8HR PRN Nausea And Vomiting Petrolatum 1 applic 11/26/23 09:21 Zinc Oxide Paste (Z-Guard) 1 Applic TOPICAL BID PRN [facility] Protocol Tamsulosin HCl 0.4 mg 11/24/23 16:00 11/26/23 09:03 Tamsulosin 0.4 Mg Cap.Er.24h PO 0.4 mg DAILY [facility] Administration Trazodone HCl 50 mg 11/24/23 21:00 11/25/23 20:49 Trazodone Hcl 50 Mg Tab PO 50 mg HS [facility] Administration Intake and Output 11/25/23 11/26/23 11/26/23 22:59 06:59 14:59 Intake Total 1020 240 Output Total 700 1000 Balance 320 -1000 240 Intake: Oral 1020 240 Output: Urine 1000 Urine/Stool Mix 700 Other: Voiding Method Indwelling Catheter Indwelling Catheter # Bowel Movements 1 1 11/25/23 05:26 11/26/23 07:01
[2023-11-26 11:55] LABS: Glucose,Whole Blood 209 mg/dL (70-110)
--- NOTE | 2023-11-26 12:12 | XR ---
EXAMINATION TYPE: XR chest 1V portable DATE OF EXAM: 11/26/2023 Comparison: 11/10/2023 Clinical History: 73-year-old male pre-op Findings: Heart borderline enlarged. Mild interstitial density may be slightly increased. Underlying right basi lar pleural-parenchymal opacity likely corresponding to a loculated hydropneumothorax. Impression: 1. Similar prominent right lower lung opacity, likely corresponding to a loculated hydropneumothorax. 2. There may be developing mild pulmonary vascular congestion.
[2023-11-26] MEDS: ASPIRIN 81 MG PO SCH (13:16)
[2023-11-26] MEDS: ACETAMINOPHEN TAB 325 MG TAB PO PRN (13:30)
[2023-11-26] MEDS: LOSARTAN 25 MG TAB PO SCH (13:30)
--- NOTE | 2023-11-26 14:22 | P.PN ---
Subjective Progress Note Date: 11/26/23 Principal diagnosis: Reason for follow-up is infected sacral ulcer and diarrhea Patient is a 73-year-old male with a past medical history significant for diabetes mellitus hypertension hyperlipidemia osteoarthritis history of diabetic foot infection requiring bilateral pnqpb-qhq-wjvy amputation recent admission to the hospital treated for pneumonia UTI and also have a sacral pressure ulcer that was debrided, patient brought back to the hospital concerning for worsening wound and unable to be taken care of at home. On today's evaluation that is 11/26/2023,the patient has been afebrile and is breathing comfortably on room air slightly sleepy lethargic though arousable did not answer any question no vomiting or any worsening diarrhea reported by the nursing staff. Patient did have a creatinine 0.73 Vanco trough for less than 5 no CBC was done today Objective - Vital Signs Vital signs: Vital Signs Temp 97.5 F L 11/26/23 06:47 Pulse 74 11/26/23 06:47 Resp 15 11/26/23 06:47 BP 181/68 11/26/23 06:47 Pulse Ox 99 11/26/23 06:47 FiO2 Intake & Output 11/25/23 11/26/23 11/26/23 18:59 06:59 18:59 Intake Total 1260 Output Total 700 1000 Balance 560 -1000 Weight 60.8 kg Intake: Oral 1260 Output: Urine 1000 Urine/Stool Mix 700 Other: Voiding Method Indwelling Catheter Indwelling Catheter # Bowel Movements 1 1 - Exam GENERAL DESCRIPTION: An elderly male lying in bed in no distress RESPIRATORY SYSTEM: Unlabored breathing , decreased breath sounds at bases HEART: S1 S2 regular rate and rhythm , ABDOMEN: Soft , no tenderness EXTREMITIES: Bilateral AKA stumps are currently healed - Labs CBC & Chem 7: 11/25/23 05:26 11/26/23 07:01 Labs: Abnormal Lab Results - Last 24 Hours (Table) 11/25/23 11/25/23 11/26/23 Range/Units 17:12 20:11 06:51 POC Glucose (mg/dL) 133 H 279 H 149 H (70-110) mg/dL Microbiology - Last 24 Hours (Table) 11/24/23 22:47 Gram Stain - Preliminary Buttock 11/24/23 11:53 Blood Culture - Preliminary Blood Assessment and Plan (1) Sacral decubitus ulcer Current Visit: Yes Status: Acute Code(s): L89.159 - PRESSURE ULCER OF SACRAL REGION, UNSPECIFIED STAGE SNOMED Code(s): 902658901 (2) Diarrhea Current Visit: Yes Status: Acute Code(s): R19.7 - DIARRHEA, UNSPECIFIED SNOMED Code(s): 17905088 Plan: 1patient presented to the hospital with worsening sacral wound which was recently debrided by surgical team there were no culture done currently wound base with minimal slough tissue culture have been obtained to guide further labile therapy consult for possible mild wound infection, keeping in mind close proximity to the anal canal and stool contamination will need to cover for the enteric gram-negative both aerobes and anaerobes. 2patient to continue Zosyn 3.375 g every hour, admitting team has discussed with the patient family and they seem to have agreed for diverting colostomy which will help healing of this wound. 3diarrhea stool for C. difficile requested never collected Dictation was produced using [employer] dictation software. please excuse any grammatical, word or spelling errors. Time with Patient: Less than 30
[2023-11-26 16:52] LABS: Glucose,Whole Blood 265 mg/dL (70-110)
--- NOTE | 2023-11-26 17:22 | P.PN ---
Progress Note - Text Progress Note Date: 11/26/23 Chief Complaint: sacral decubitus ulcer Patient is a 73-year-old male with PMH of IDDM, hypertension, CKD stage II, chronic indwelling Davidson catheter, systolic CHF with ejection fraction of 40 to 45%, dementia, COPD with chronic hypoxemic respiratory failure not on home oxygen and bilateral AKA was brought to the ER by EMS for sacral decubitus ulcers. Patient has dementia and altered mental status and is not able to provide any reasonable history at the time of interview. History was mainly obtained from his daughter via phone call. According to his daughter, patient was doing generally well until this morning when he woke up seemingly confused and out of place. Patient was recently hospitalized for altered mentation on 11/10/2023 and was discharged after a month-long hospital course on 11/20/2023. Patient was discharged home with wound care provided by the visiting nurse. It was day one of the nurse visiting the patient for the wound care when she alerted the daughter to infectious sacral decubitus ulcers. Patient had fever and chills with poor appetite this morning. Patient did have debridement done on November [address] Alves from general surgery during the course of previous admission. Per ID Sayed patient was at high risk for second infection because of its location and probability of getting contaminated with stool and was advised to keep the area clean and of pressure. Patient was not discharged on any oral antibiotics. November 24: Laying in bed. Comfortable. Answering some question. Patient on IV Zosyn. Eating about 50%. Appears comfortable. Spoke to Dr. Lambert the surgeon and he agrees that diverting colostomy and the only option if any sacral wound has not improved. Also spoke at length with patient's daughter Gennaro on the phone. Antibiotics will frankly not help much. She will talk to her brother occupational health manager and get back to us. I did also then talk about hospice. At this point they are leaning towards continued care. Total time spent today about 50 minutes with over 30 minutes of discussion. November 25: Laying in bed. Comfortable. On pured diet. Spoke to patient's daughter over the phone. She had discussed with her brother this morning has agreed to proceed for surgery. She was informed about moderate cardiovascular risk. 2D echo ordered. Cardiology consulted. Discussed with Dr. Mcknight from general surgery. Return about the patient for tomorrow. Patient is medically stable to proceed with surgery without moderate perioperative cardiovascular risk. For blood pressure controlled Cozaar has been added. I spent over 50 minutes today with over 30 minutes of discussion Active Medications Acetaminophen (Acetaminophen Tab 325 Mg Tab) 650 mg PO Q6HR PRN PRN Reason: Mild Pain or Fever > 100.5 Last Admin: 11/26/23 13:30 Dose: 650 mg Hydrocodone Bitart/Acetaminophen (Hydrocodone/Apap 5-325mg 1 Each Tab) 1 each PO Q4HR PRN PRN Reason: Pain Last Admin: 11/25/23 13:31 Dose: 1 each Hydrocodone Bitart/Acetaminophen (Hydrocodone/Apap 7.5-325mg 1 Each Tab) 1 each PO Q6HR PRN PRN Reason: Pain Last Admin: 11/26/23 09:03 Dose: 1 each Amlodipine Besylate (Amlodipine 10 Mg Tab) 10 mg PO DAILY [facility] Last Admin: 11/26/23 09:03 Dose: 10 mg Aspirin (Aspirin 81 Mg) 81 mg PO DAILY [facility] Last Admin: 11/26/23 13:16 Dose: Not Given Atorvastatin Calcium (Atorvastatin 80 Mg Tab) 80 mg PO HS [facility] Last Admin: 11/25/23 20:49 Dose: 80 mg Dextrose/Water (Dextrose 50% Syringe 50 Ml) 25 ml IVP PER PROTOCOL PRN; Protocol PRN Reason: Hypoglycemia Dextrose/Water (Dextrose 50% Syringe 50 Ml) 50 ml IVP PER PROTOCOL PRN; Protocol PRN Reason: Hypoglycemia Enoxaparin Sodium (Enoxaparin 40 Mg/0.4 Ml Syringe) 40 mg SQ DAILY [facility] Last Admin: 11/26/23 09:03 Dose: 40 mg Famotidine (Famotidine 20 Mg Tab) 20 mg PO BID [facility] Last Admin: 11/26/23 09:03 Dose: 20 mg Gabapentin (Gabapentin 300 Mg Cap) 300 mg PO BID [facility] Last Admin: 11/26/23 09:03 Dose: 300 mg Glycopyrrolate (Glycopyrrolate 1 Mg Tab) 1 mg PO TID PRN PRN Reason: drooling Sodium Chloride (Saline 0.9%) 1,000 mls @ 75 mls/hr IV .[id number] [facility] Last Admin: 11/26/23 03:55 Dose: 75 mls/hr Piperacillin Sod/Tazobactam (Sod 3.375 gm/ Sodium Chloride) 100 mls @ 25 mls/hr IVPB Q8H [facility]; Protocol Last Admin: 11/26/23 11:24 Dose: 25 mls/hr Insulin Aspart (Insulin Aspart (Novolog) 100 Unit/Ml Vial) 0 unit SQ ACHS [facility]; Protocol Last Admin: 11/26/23 13:31 Dose: 2 unit Losartan Potassium (Losartan 25 Mg Tab) 25 mg PO DAILY [facility] Last Admin: 11/26/23 13:30 Dose: 25 mg Morphine Sulfate (Morphine Sulfate 2 Mg/Ml Syringe) 2 mg IVP Q4HR PRN PRN Reason: Pain/Discomfort Last Admin: 11/24/23 18:16 Dose: 2 mg Naloxone HCl (Naloxone 0.4 Mg/Ml 1 Ml Vial) 0.2 mg IV Q2M PRN PRN Reason: Opioid Reversal Nystatin (Nystatin 100,000 Unit/Gm Powd 15 Gm) 1 applic TOPICAL BID [facility]; Protocol Last Admin: 11/26/23 09:04 Dose: 1 applic Ondansetron HCl (Ondansetron 4 Mg/2 Ml Vial) 4 mg IVP Q8HR PRN PRN Reason: Nausea And Vomiting Petrolatum (Zinc Oxide Paste (Z-Guard) 1 Applic) 1 applic TOPICAL BID PRN; Protocol PRN Reason: Wound Healing Tamsulosin HCl (Tamsulosin 0.4 Mg Cap.Er.24h) 0.4 mg PO DAILY [facility] Last Admin: 11/26/23 09:03 Dose: 0.4 mg Trazodone HCl (Trazodone Hcl 50 Mg Tab) 50 mg PO HS [facility] Last Admin: 11/25/23 20:49 Dose: 50 mg Social history: Former smoker. Cared for by his daughter. Physical examination: VITAL SIGNS: 98.5, 72, 16, 188 x 70, GENERAL: Laying in bed. Comfortable EYES: [Pupils equal. Conjunctiva pale HEENT: External appearance of nose and ears normal, oral cavity less dry mucous membrane. NECK: JVD not raised; masses not palpable. HEART: First and second heart sounds are normal; no edema. LUNGS: Respiratory rate increased; decreased breath sounds. ABDOMEN: Soft, nontender, liver spleen not palpable, no masses palpable. Davidson catheter PSYCH: Answering occasional questions MUSCULOSKELETAL:No Clubbing/cyanosis;muscles-grossly intact. Sacral decubitus wound NEUROLOGICAL: [Cranial nerves grossly intact; no facial asymmetry, bilateral above-knee amputation INVESTIGATIONS, reviewed in the clinical context: November 25, 2023: White count 8.9 hemoglobin 8.7 platelets 41 potassium 4.2 BUN 11 creatinine 0.75 Assessment plan: #Sacral decubitus ulcer, unstageable On last admission patient had debridement done by Dr. Alves. Spoke to daughter today. Agreeable to proceed with surgery she has spoken to her brother. Communicated with Dr. Maya from surgery. Patient being boarded for tomorrow. Moderate perioperative cardiovascular risk. Stable to proceed for surgery. 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 Follow Accu-Cheks -Chronic left kidney atrophy -Chronic bilateral above-knee amputation -Primary osteoarthritis [place] as needed -Essential hypertension, uncontrolled Increase Cozaar to 50 mg nightly. Add Aldactone 12.5 daily -Chronic bladder outflow obstruction BPH, with chronic Davidson catheter Flomax -Chronic congestive heart failure from systolic dysfunction EF 40 to 45% Cozaar. Aldactone added. 2D echo pending. Telemetry. -Peripheral neuropathy -Moderate protein calorie malnutrition decreased oral intake Ensure -Full code Cozaar 50 mg nightly added. Aldactone added. 2D echo. Telemetry. Cardiology consulted., For perioperative management 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 Date of last positivie culture/infection: 10/28/22 MDRO Source:: Blood Past Surgical History: Heart Catheterization Additional Past Surgical History / Comment(s): bilateral great toes amputated, 2nd toe lt foot partial amputation, multiple debridements of venous ulcers, colonoscopy, surgery as a child for undescended testicle., ABOVE THE KNEE AMPUTATION RIGHT LEG (JUNE 2017-[facility]) Past Anesthesia/Blood Transfusion Reactions: No Reported Reaction Date of Last Stent Placement:: 10/17/2022 Past Psychological History: Anxiety, Depression Smoking Status: Former smoker Past Alcohol Use History: Unable to Obtain Past Drug Use History: Unable to Obtain
--- NOTE | 2023-11-26 17:28 | CA ---
Transthoracic Echo Report Name: Reid Frost Age: 73 Gender: M : 1950 Exam Date: 11/26/2023 15:15 Exam Location: [facility] Ht (in): 43 Wt (lb): 134 Ordering Physician: Gerson Banks MD Attending/Referring Phys: Brilliandeer Lopper Eryn Menendez RDCS Procedure CPT: Indications: chf Cardiac Hx: Technical Quality: Fair Contrast 1: Total Dose (mL): Contrast 2: Total Dose (mL): MEASUREMENTS (Male / Female) Normal Values 2D ECHO LV Diastolic Diameter PLAX 5.3 cm 4.2 - 5.9 / 3.9 - 5.3 cm LV Systolic Diameter PLAX 4.4 cm IVS Diastolic Thickness 1.4 cm 0.6 - 1.0 / 0.6 - 0.9 cm LVPW Diastolic Thickness 1.6 cm 0.6 - 1.0 / 0.6 - 0.9 cm LV Relative Wall Thickness 0.6 RV Internal Dim ED PLAX 4.0 cm LA Systolic Diameter LX 4.2 cm 3.0 - 4.0 / 2.7 - 3.8 cm LA Volume 110.9 cm??? 18 - 58 / 22 - 52 cm??? LA Volume Index 78.1 cm???/m??? 16 - 28 cm???/m??? M-MODE Aortic Root Diameter MM 3.5 cm AV Cusp Separation MM 2.3 cm DOPPLER AV Peak Velocity 176.9 cm/s AV Peak Gradient 12.5 mmHg AI Peak Velocity 371.1 cm/s AI Peak Gradient 55.1 mmHg AI Pressure Half Time 605.4 ms MV Area PHT 2.3 cm??? Mitral E Point Velocity 103.7 cm/s Mitral A Point Velocity 106.2 cm/s Mitral E to A Ratio 1.0 MV Deceleration Time 325.8 ms FINDINGS Left Ventricle Left ventricular ejection fraction is estimated at 50-55%. Left ventricular cavity size normal. Left ventricular cavity size normal. Moderate concentric left ventricular hypertrophy. No obvious regional wall motion abnormalities. Right Ventricle Moderate right ventricular dilatation. Unable to estimate the right ventricular systolic pressure. Right Atrium Normal right atrial size. No right atrial thrombus or mass seen. Left Atrium Mildly increased left atrial diameter. Severely increased left atrial volume. Mildly increased left atrial area. Mitral Valve Mitral valve thickened. Mitral annular calcification. Aortic Valve Trileaflet aortic valve. Thickened aortic valve without stenosis. Mild aortic regurgitation. Tricuspid Valve Structurally normal tricuspid valve. No tricuspid prolapse. Pulmonic Valve Structurally normal pulmonic valve. Mild pulmonic regurgitation. Pericardium Small pericardial effusion. Aorta Normal size aortic root and proximal ascending aorta. CONCLUSIONS Normal LVF 50-55%. Moderate RV enlaregment. Mild AOV regurgitation. Severe LA valume increse. Small pericardial effusion Previewed by: Dr. Cem Morgan MD (Electronically Signed) Final Date: 26 November 2023 17:27
[2023-11-26] MEDS: SPIRONOLACTONE 25 MG TAB PO SCH (18:00)
[2023-11-26 20:19] LABS: Glucose,Whole Blood 114 mg/dL (70-110)
[2023-11-26] MEDS: LOSARTAN 50 MG TAB PO SCH (22:39)
--- NOTE | 2023-11-27 00:08 | P.PN ---
Subjective Patient seen and evaluated at bedside. No acute events Objective - Vital Signs Vital signs: Vital Signs Temp 98.0 F 11/26/23 18:58 Pulse 69 11/26/23 18:58 Resp 17 11/26/23 18:58 BP 155/63 11/26/23 18:58 Pulse Ox 98 11/26/23 18:58 FiO2 Intake & Output 11/26/23 11/26/23 11/27/23 06:59 18:59 06:59 Intake Total 2160 Output Total 1000 2000 Balance -1000 160 Intake: Oral 2160 Output: Urine 1000 2000 Other: Voiding Method Indwelling Catheter Indwelling Catheter # Bowel Movements 1 - Exam gen: nad cv: rrr pul: non labored abd: soft, distended, non tender to palpation rectum: ulcerated with large sacral decubitus ulcer - Labs CBC & Chem 7: 11/25/23 05:26 11/26/23 07:01 Labs: Abnormal Lab Results - Last 24 Hours (Table) 11/26/23 11/26/23 11/26/23 Range/Units 06:51 11:54 16:51 POC Glucose (mg/dL) 149 H 209 H 265 H (70-110) mg/dL 11/26/23 Range/Units 20:16 POC Glucose (mg/dL) 114 H (70-110) mg/dL Microbiology - Last 24 Hours (Table) 11/24/23 22:47 Anaerobic Culture - Final Buttock Bacteroides thetaiotaomicron 11/24/23 22:47 Gram Stain - Preliminary Buttock Wound Culture - Preliminary Enterococcus faecium 11/24/23 11:53 Blood Culture - Preliminary Blood Assessment and Plan Assessment: 73 yo male w/ large sacral decubitus ulcer with exposed rectum -will take to the OR tomorrow -npo after midnight -surgery around 12 on 11/27/23
[2023-11-27 03:55] LABS: ALT 10 U/L (4-49); AST 17 U/L (17-59); African American GFR (CKD) >90 (>60 ml/min/1.73 sqM); Albumin 2.2 g/dL (3.5-5.0); Albumin/Globulin Ratio 0.7; Alkaline Phosphatase 156 U/L (38-126); Anion Gap 7 mmol/L; Blood Urea Nitrogen 12 mg/dL (9-20); Calcium 7.9 mg/dL (8.4-10.2); Carbon Dioxide 21 mmol/L (22-30); Chloride 112 mmol/L (98-107); Globulin 3.3 g/dL; Glucose 89 mg/dL (74-99); Non-African American GFR(CKD) >90 (>60 ml/min/1.73 sqM); Potassium 3.7 mmol/L (3.5-5.1); Sodium 140 mmol/L (137-145); Total Bilirubin 0.5 mg/dL (0.2-1.3); Total Protein 5.5 g/dL (6.3-8.2)
[2023-11-27 07:05] LABS: Glucose,Whole Blood 103 mg/dL (70-110)
--- NOTE | 2023-11-27 09:24 | P.PN ---
Subjective HISTORY OF PRESENT ILLNESS: This is a 73-year-old male with a past medical history significant for paroxysmal atrial fibrillation, coronary artery disease, severe peripheral vascular disease, bilateral [id number] amputations, COPD, hypertension, hyperlipidemia, and diabetes. Patient follows in the office with Dr. Starks. We have been asked to see the patient in consultation for preop clearance. Patient examined at the bedside. Patient currently denies any chest pain or pressure. He denies shortness of breath. Patient's blood pressures are elevated with a recent reading in the 180s. Patient is admitted to the hospital due to a large sacral ulcer. General surgery is apparently planning for diverting colostomy tomorrow. DIAGNOSTICS: - EKG reveals sinus mechanism with no signs of acute ischemia - Laboratory data: WBC 8.9. Hemoglobin 8.7. Platelet count 481. Sodium 136. Potassium 4.2. BUN 11. Creatinine 0.75. Magnesium 1.6. - Current home cardiac medications include amlodipine 10 mg daily, Plavix 75 mg daily, Lipitor 80 mg at night - Most recent echocardiogram obtained in May 2023 revealed ejection fraction 40 to 45% - Cardiac catheterization history: October 2022 with stenting of the mid LAD 11/27/2023 Patient examined this morning the bedside. Patient currently denies chest pain or pressure. He denies shortness of breath. Blood pressure remains elevated this morning. He was started on losartan yesterday. Echocardiogram completed revealing ejection fraction 50 to 55% with mild aortic regurgitation and small pericardial effusion PHYSICAL EXAM: VITAL SIGNS: Reviewed. GENERAL: Well-developed in no acute distress. HEENT: Head is normocephalic. Pupils are equal, round. Sclerae anicteric. Mucous membranes of the mouth are moist. Neck supple. No JVD or thyromegaly LUNGS: Respirations even and unlabored. Lungs essentially clear to auscultation bilaterally. HEART: Regular rate and rhythm. S1 and S2 heard. ABDOMEN: Soft. Nondistended. Nontender. EXTREMITIES: Normal range of motion. No clubbing or cyanosis. Bilateral [id number] amputations NEUROLOGIC: Awake and alert. Oriented x 3. ASSESSMENT: Large sacral wound, s/p debridement 11/19/2023 Coronary artery disease with previous stenting of the RCA and most recently LAD, October 2022 Paroxysmal atrial fibrillation Peripheral vascular disease History of bilateral [id number] amputations Chronic heart failure with reduced EF, 40 to 45%, currently euvolemic Hypertension, currently uncontrolled with systolic blood pressure of 180 Hyperlipidemia COPD Diabetes Former nicotine dependence PLAN: Continue current cardiac medications Patient's last stent placement was greater than 12 months ago. Will discontinue Plavix. Begin aspirin 81 mg daily. Patient was previously on anticoagulation for atrial fibrillation. However when patient was admitted to the hospital he is no longer on anticoagulation. The reason for this is unknown. Postoperatively, patient will need to be reevaluated to be initiated on anticoagulation for thromboembolic protection Increase losartan to 100 mg daily for optimal blood pressure control Patient is currently euvolemic upon examination with no complaints of angina. Patient is at intermediate risk to undergo surgery from a cardiac standpoint. However there are no absolute contraindications. Further recommendations pending patient course Nurse practitioner note has been reviewed by physician. Signing provider agrees with the documented findings, assessment, and plan of care documented by CHEMIC MANGLER as a scribe. Objective - Vital Signs Vital signs: Vital Signs Temp 97.7 F 11/27/23 07:05 Pulse 74 11/27/23 07:05 Resp 16 11/27/23 07:05 BP 170/68 11/27/23 07:05 Pulse Ox 98 11/27/23 07:05 FiO2 Intake & Output 11/26/23 11/27/23 11/27/23 18:59 06:59 18:59 Intake Total 2160 Output Total 2000 900 Balance 160 -900 Weight 60.8 kg Intake: Oral 2160 Output: Urine 2000 900 Other: Voiding Method Indwelling Catheter Indwelling Catheter # Bowel Movements 1 - Labs CBC & Chem 7: 11/25/23 05:26 11/27/23 03:12 Labs: Abnormal Lab Results - Last 24 Hours (Table) 11/26/23 11/26/23 11/26/23 Range/Units 11:54 16:51 20:16 Chloride (98-107) mmol/L Carbon Dioxide (22-30) mmol/L POC Glucose (mg/dL) 209 H 265 H 114 H (70-110) mg/dL Calcium (8.4-10.2) mg/dL Alkaline Phosphatase (38-126) U/L Total Protein (6.3-8.2) g/dL Albumin (3.5-5.0) g/dL 11/27/23 Range/Units 03:12 Chloride 112 H (98-107) mmol/L Carbon Dioxide 21 L (22-30) mmol/L POC Glucose (mg/dL) (70-110) mg/dL Calcium 7.9 L (8.4-10.2) mg/dL Alkaline Phosphatase 156 H (38-126) U/L Total Protein 5.5 L (6.3-8.2) g/dL Albumin 2.2 L (3.5-5.0) g/dL Microbiology - Last 24 Hours (Table) 11/24/23 22:47 Anaerobic Culture - Final Buttock Bacteroides thetaiotaomicron 11/24/23 22:47 Gram Stain - Preliminary Buttock Wound Culture - Preliminary Enterococcus faecium 11/24/23 11:53 Blood Culture - Preliminary Blood
[2023-11-27] MEDS: IV FLUID CONTINUATION 400 ML IV ONE (12:10)
[2023-11-27] MEDS: MIDAZOLAM 2 MG/2 ML VIAL IV ONE (12:18)
[2023-11-27] MEDS: fentaNYL (PF) 50 MCG/ML 2 ML AMP IVP PRN (12:34)
[2023-11-27 12:38] LABS: Glucose,Whole Blood 98 mg/dL (70-110)
[2023-11-27] MEDS ORDERED: PHENYLEPHRINE 10 MG/ML VIAL ONE (12:50)
[2023-11-27] MEDS ORDERED: PROPOFOL 10 MG/ML 20 ML VIAL IV ONE (12:50)
[2023-11-27] MEDS ORDERED: MIDAZOLAM 2 MG/2 ML VIAL ONE (12:50)
[2023-11-27] MEDS ORDERED: WATER FOR INJECTION, STERILE 10 ML VIAL IV ONE (12:50)
[2023-11-27] MEDS ORDERED: GLYCOPYRROLATE 0.2 MG/ML 2 ML VIAL ONE (12:50)
[2023-11-27] MEDS ORDERED: ROCURONIUM 10 MG/ML (5 ML VIAL) IV ONE (12:50)
[2023-11-27] MEDS ORDERED: fentaNYL (PF) 50 MCG/ML 2 ML AMP ONE (12:50)
[2023-11-27] MEDS ORDERED: NEOSTIGMINE 1 MG/ML 10 ML VIAL ONE (12:50)
[2023-11-27] MEDS ORDERED: LIDOCAINE 1% INJ 10MG/ML (20 ML MDV) ONE (12:50)
[2023-11-27] MEDS ORDERED: ePHEDrine 50 MG/ML 1 ML VIAL ONE (12:50)
[2023-11-27] MEDS: SODIUM CHLORIDE 0.9% 1,000 ML IV ONE (13:10)
--- NOTE | 2023-11-27 13:45 | P.ANPRN ---
Procedure Note - Anesthesia - Nerve Block Performed Bilateral Rectus Abdominis Single Time Out Performed: Yes (1217) Date of Procedure: 11/27/23 Procedure Start Time: :18 Procedure Stop Time: Location of Patient: PreOp Indication: Acute Post-Operative Pain, Requested by Surgeon Specifically requested for management of pain by DrGibson: Sachin Maya Sedation Type: Sedate with meaningful contact maintained Preparation: Sterile Prep Position: Supine Catheter: None Needle Types: Pajunk Needle Gauge: 21 (x2) Ultrasound used to visualize needle placement: Yes Ultrasound used to observe medication spread: Yes Injectate: 0.5% Ropivacaine (see comment for volume) (15cc+10cc nacl pf each side) Blood Aspirated: No Pain Paresthesia on Injection Noted: No Resistance on Injection: Normal Image Stored and Saved: Yes Events: Uneventful and Well Tolerated
--- NOTE | 2023-11-27 15:56 | P.PN ---
Subjective Progress Note Date: 11/27/23 Principal diagnosis: Reason for follow-up is infected sacral ulcer and diarrhea Patient is a 73-year-old male with a past medical history significant for diabetes mellitus hypertension hyperlipidemia osteoarthritis history of diabetic foot infection requiring bilateral udmcy-rjg-ddoe amputation recent admission to the hospital treated for pneumonia UTI and also have a sacral pressure ulcer that was debrided, patient brought back to the hospital concerning for worsening wound and unable to be taken care of at home. On today's evaluation that is 11/27/2023,the patient remains to be afebrile, patient is on room air not requiring supplemental oxygen and denies any shortness of breath no chest pain or cough.Patient denies having any nausea or vomiting, no abdominal pain or worsening pain to the sacral wound. Patient did have a creatinine 0.70 culture showing Bacteroides Enterococcus Objective - Vital Signs Vital signs: Vital Signs Temp 97.7 F 11/27/23 07:05 Pulse 74 11/27/23 07:05 Resp 16 11/27/23 07:05 BP 170/68 11/27/23 07:05 Pulse Ox 98 11/27/23 07:05 FiO2 Intake & Output 11/26/23 11/27/23 11/27/23 18:59 06:59 18:59 Intake Total 2160 Output Total 2000 900 Balance 160 -900 Weight 60.8 kg Intake: Oral 2160 Output: Urine 1999 900 Other: Voiding Method Indwelling Catheter Indwelling Catheter Indwelling Catheter # Bowel Movements 1 1 - Exam GENERAL DESCRIPTION: An elderly male lying in bed in no distress RESPIRATORY SYSTEM: Unlabored breathing , decreased breath sounds at bases HEART: S1 S2 regular rate and rhythm , ABDOMEN: Soft , no tenderness EXTREMITIES: Bilateral AKA stumps are currently healed - Labs CBC & Chem 7: 11/25/23 05:26 11/27/23 03:12 Labs: Abnormal Lab Results - Last 24 Hours (Table) 11/26/23 11/26/23 11/26/23 Range/Units 11:54 16:51 20:16 Chloride (98-107) mmol/L Carbon Dioxide (22-30) mmol/L POC Glucose (mg/dL) 209 H 265 H 114 H (70-110) mg/dL Calcium (8.4-10.2) mg/dL Alkaline Phosphatase (38-126) U/L Total Protein (6.3-8.2) g/dL Albumin (3.5-5.0) g/dL 11/27/23 Range/Units 03:12 Chloride 112 H (98-107) mmol/L Carbon Dioxide 21 L (22-30) mmol/L POC Glucose (mg/dL) (70-110) mg/dL Calcium 7.9 L (8.4-10.2) mg/dL Alkaline Phosphatase 156 H (38-126) U/L Total Protein 5.5 L (6.3-8.2) g/dL Albumin 2.2 L (3.5-5.0) g/dL Microbiology - Last 24 Hours (Table) 11/24/23 22:47 Anaerobic Culture - Final Buttock Bacteroides thetaiotaomicron 11/24/23 22:47 Gram Stain - Preliminary Buttock Wound Culture - Preliminary Enterococcus faecium 11/24/23 11:53 Blood Culture - Preliminary Blood Assessment and Plan (1) Sacral decubitus ulcer Current Visit: Yes Status: Acute Code(s): L89.159 - PRESSURE ULCER OF SACRAL REGION, UNSPECIFIED STAGE SNOMED Code(s): 372752666 (2) Diarrhea Current Visit: Yes Status: Acute Code(s): R19.7 - DIARRHEA, UNSPECIFIED SNOMED Code(s): 61319327 Plan: 1patient presented to the hospital with worsening sacral wound which was recently debrided by surgical team there were no culture done currently wound base with minimal slough tissue culture have been obtained to guide further labile therapy consult for possible mild wound infection, keeping in mind close proximity to the anal canal and stool contamination will need to cover for the enteric gram-negative both aerobes and anaerobes. 2patient currently waiting for diverting colostomy local culture growing Bacteroides Enterococcus with sensitivities pending continue with the Zosyn Dictation was produced using [employer] dictation software. please excuse any grammatical, word or spelling errors. Time with Patient: Less than 30
--- NOTE | 2023-11-27 16:08 | P.OP ---
Date of Procedure: 11/27/23 Preoperative Diagnosis: sacral decubitus ulcer Postoperative Diagnosis: sacral decubitus ulcer Procedure(s) Performed: Loop sigmoid colostomy creation Anesthesia: RAFA Surgeon: Sachin Maya Pathology: none sent Condition: stable Disposition: PACU Indications for Procedure: sacral decubitus ulcer Operative Findings: patient is brought to the operating room where he was cleaned draped in sterile fashion a timeout was performed and everyone agreed with mages headed next a left lower quadrant incision was made over the palpated sigmoid colon. A #15 blade was used to make a 4 cm incision. I then used electrocautery to dissect down to the fascia. Once encountered using a Lea to dissect through the muscle entering the peritoneum. Once I entered the peritoneum a incision was then elongated using electrocautery.a Goldvein was then used to grasp the sigmoid colon which was identified by the tinea of the colon as well as the epiploica. Once the sigmoid colon was retracted I made a window in the sigmoid colon mesentery and used a red rubber catheter to keep this in place. I use electrocautery to make a linear incision creating a loop colostomy. A finger was used to verify the lumen and make sure that the fascia was not too tight. 3-0 Vicryl pop offs were used to secure the sigmoid colon to the dermis. The rarer upper catheter was sutured in place. The patient was clean and covered and transported to PACU in stable condition the patient tolerated the procedure well Description of Procedure: patient is brought to the operating room where he was cleaned draped in sterile fashion a timeout was performed and everyone agreed with mages headed next a left lower quadrant incision was made over the palpated sigmoid colon. A #15 blade was used to make a 4 cm incision. I then used electrocautery to dissect down to the fascia. Once encountered using a Lea to dissect through the muscle entering the peritoneum. Once I entered the peritoneum a incision was then elongated using electrocautery.a Goldvein was then used to grasp the sigmoid colon which was identified by the tinea of the colon as well as the epiploica. Once the sigmoid colon was retracted I made a window in the sigmoid colon mesentery and used a red rubber catheter to keep this in place. I use electrocautery to make a linear incision creating a loop colostomy. A finger was used to verify the lumen and make sure that the fascia was not too tight. 3-0 Vicryl pop offs were used to secure the sigmoid colon to the dermis. The rarer upper catheter was sutured in place. The patient was clean and covered and transported to PACU in stable condition the patient tolerated the procedure well
[2023-11-27 16:22] LABS: Anisocytosis Slight; Basophils % (A) 0 %; Eosinophils % (A) 0 %; HCT 27.9 % (39.0-53.0); HGB 8.3 gm/dL (13.0-17.5); Hypochromasia Marked; Lymphocytes # (A) 0.9 k/uL (1.0-4.8); Lymphocytes % (A) 10 %; MCH 25.6 pg (25.0-35.0); MCHC 29.9 g/dL (31.0-37.0); MCV 85.9 fL (80.0-100.0); Mean Platelet Volume 8.3; Monocytes # (A) 0.4 k/uL (0-1.0); Monocytes % (A) 5 %; Neutrophils # (A) 7.2 k/uL (1.3-7.7); Neutrophils % (A) 83 %; Platelet Count 425 k/uL (150-450); RBC 3.25 m/uL (4.30-5.90); RDW 16.6 % (11.5-15.5); WBC 8.7 k/uL (3.8-10.6)
[2023-11-27 16:29] LABS: INR 1.2 (<1.2); Prothrombin Time 12.4 sec (10.0-12.5)
[2023-11-27 17:03] LABS: Glucose,Whole Blood 117 mg/dL (70-110)
--- NOTE | 2023-11-27 17:25 | P.PN ---
Progress Note - Text Progress Note Date: 11/27/23 Chief Complaint: sacral decubitus ulcer Patient is a 73-year-old male with PMH of IDDM, hypertension, CKD stage II, chronic indwelling Davidson catheter, systolic CHF with ejection fraction of 40 to 45%, dementia, COPD with chronic hypoxemic respiratory failure not on home oxygen and bilateral AKA was brought to the ER by EMS for sacral decubitus ulcers. Patient has dementia and altered mental status and is not able to provide any reasonable history at the time of interview. History was mainly obtained from his daughter via phone call. According to his daughter, patient was doing generally well until this morning when he woke up seemingly confused and out of place. Patient was recently hospitalized for altered mentation on 11/10/2023 and was discharged after a month-long hospital course on 11/20/2023. Patient was discharged home with wound care provided by the visiting nurse. It was day one of the nurse visiting the patient for the wound care when she alerted the daughter to infectious sacral decubitus ulcers. Patient had fever and chills with poor appetite this morning. Patient did have debridement done on November [address] Alves from general surgery during the course of previous admission. Per ID Sayed patient was at high risk for second infection because of its location and probability of getting contaminated with stool and was advised to keep the area clean and of pressure. Patient was not discharged on any oral antibiotics. November 24: Laying in bed. Comfortable. Answering some question. Patient on IV Zosyn. Eating about 50%. Appears comfortable. Spoke to Dr. Lambert the surgeon and he agrees that diverting colostomy and the only option if any sacral wound has not improved. Also spoke at length with patient's daughter Gennaro on the phone. Antibiotics will frankly not help much. She will talk to her brother early childhood education coordinator and get back to us. I did also then talk about hospice. At this point they are leaning towards continued care. Total time spent today about 50 minutes with over 30 minutes of discussion. November 25: Laying in bed. Comfortable. On pured diet. Spoke to patient's daughter over the phone. She had discussed with her brother this morning has agreed to proceed for surgery. She was informed about moderate cardiovascular risk. 2D echo ordered. Cardiology consulted. Discussed with Dr. Mcknight from general surgery. Return about the patient for tomorrow. Patient is medically stable to proceed with surgery without moderate perioperative cardiovascular risk. For blood pressure controlled Cozaar has been added. I spent over 50 minutes today with over 30 minutes of discussion November 26: Saw the patient this morning. Was n.p.o. for procedure. This afternoon underwent loop colostomy by Dr. Lopez. Postprocedure clear liquid diet has been ordered. I spoke to Dr. Maya. Surgery went well. Social history: Former smoker. At home. Cared for by his daughter. Physical examination: VITAL SIGNS: 97.8, 67, 16, 157 x 68, 98% room air GENERAL: Laying in bed. Comfortable EYES: [Pupils equal. Conjunctiva pale HEENT: External appearance of nose and ears normal, oral cavity less dry mucous membrane. NECK: JVD not raised; masses not palpable. HEART: First and second heart sounds are normal; no edema. LUNGS: Respiratory rate increased; decreased breath sounds. ABDOMEN: Soft, nontender, liver spleen not palpable, no masses palpable. Davidson catheter PSYCH: Answering occasional questions MUSCULOSKELETAL:No Clubbing/cyanosis;muscles-grossly intact. Sacral decubitus wound NEUROLOGICAL: [Cranial nerves grossly intact; no facial asymmetry, bilateral above-knee amputation INVESTIGATIONS, reviewed in the clinical context: November 26: White count 8.7 hemoglobin 8.3 platelets 425 November 25, 2023: White count 8.9 hemoglobin 8.7 platelets 41 potassium 4.2 BUN 11 creatinine 0.75 Assessment plan: #Sacral decubitus ulcer, unstageable On last admission patient had debridement done by Dr. Alves. Patient underwent diverting loop colostomy today. 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 Follow Accu-Cheks -Chronic left kidney atrophy -Chronic bilateral above-knee amputation -Primary osteoarthritis [place] as needed -Essential hypertension, uncontrolled Cozaar to 50 mg nightly. Aldactone 12.5 daily -Chronic bladder outflow obstruction BPH, with chronic Davidson catheter Flomax -Chronic congestive heart failure from systolic dysfunction EF 40 to 45% Cozaar. Aldactone added. Telemetry. -Peripheral neuropathy -Moderate protein calorie malnutrition decreased oral intake Ensure -Full code Spoke to Dr. Maya. Surgery went well. Clear liquid diet. Spoke to patient's daughter after procedure on the phone. 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 Date of last positivie culture/infection: 10/28/22 MDRO Source:: Blood Past Surgical History: Heart Catheterization Additional Past Surgical History / Comment(s): bilateral great toes amputated, 2nd toe lt foot partial amputation, multiple debridements of venous ulcers, colonoscopy, surgery as a child for undescended testicle., ABOVE THE KNEE AMPUTATION RIGHT LEG (JUNE 2017-[facility]) Past Anesthesia/Blood Transfusion Reactions: No Reported Reaction Date of Last Stent Placement:: 10/17/2022 Past Psychological History: Anxiety, Depression Smoking Status: Former smoker Past Alcohol Use History: Unable to Obtain Past Drug Use History: Unable to Obtain
[2023-11-27 20:32] LABS: Glucose,Whole Blood 206 mg/dL (70-110)
[2023-11-27] MEDS: LOSARTAN 50 MG TAB PO SCH (22:38)
[2023-11-27] MEDS: metroNIDAZOLE 500 MG TAB PO SCH (22:52)
[2023-11-28 07:15] LABS: Glucose,Whole Blood 90 mg/dL (70-110)
[2023-11-28 11:51] LABS: Glucose,Whole Blood 134 mg/dL (70-110)
--- NOTE | 2023-11-28 14:40 | P.PN ---
Subjective Progress Note Date: 11/28/23 The patient was seen and evaluated this morning with he is asymptomatic but he does have significantly low functional capacity. The pressure remains elevated and consistent with stage II hypertension in spite of increasing the dose and currently maximum dose of losartan and also maximum dose of amlodipine. He is on Aldactone at 12.5 mg p.o. daily which I am going to increase to 25 mg p.o. daily. Examination is remarkable for regular rhythm with a systolic murmur at the right upper sternal border and diminished breathing sounds bilaterally and bilateral [id number] amputation Assessment Paroxysmal atrial fibrillation not on anticoagulation for unknown reason Coronary artery disease with prior PCI more than a year ago Hypertension not well-controlled Multiple comorbid conditions Plan Continue the current medical regimen Increase the dose of Aldactone Follow-up with the patient Objective - Vital Signs Vital signs: Vital Signs Temp 98.6 F 11/28/23 13:43 Pulse 74 11/28/23 13:43 Resp 14 11/28/23 13:43 BP 169/62 11/28/23 13:43 Pulse Ox 98 11/28/23 13:43 FiO2 Intake & Output 11/27/23 11/28/23 11/28/23 18:59 06:59 18:59 Intake Total 1200 322 Output Total 465 425 Balance 735 -425 322 Weight 60.8 kg Intake: IV 1200 Oral 322 Output: Urine 425 425 Estimated Blood Loss 40 Other: Voiding Method Indwelling Catheter Indwelling Catheter Indwelling Catheter # Bowel Movements 1 1 1 - Labs CBC & Chem 7: 11/27/23 16:09 11/27/23 03:12 Labs: Abnormal Lab Results - Last 24 Hours (Table) 11/27/23 11/27/23 11/27/23 Range/Units 16:09 16:09 17:01 RBC 3.25 L (4.30-5.90) m/uL Hgb 8.3 L (13.0-17.5) gm/dL Hct 27.9 L (39.0-53.0) % MCHC 29.9 L (31.0-37.0) g/dL RDW 16.6 H (11.5-15.5) % Lymphocytes # 0.9 L (1.0-4.8) k/uL INR 1.2 H (<1.2) POC Glucose (mg/dL) 117 H (70-110) mg/dL 11/27/23 11/28/23 Range/Units 20:30 11:49 RBC (4.30-5.90) m/uL Hgb (13.0-17.5) gm/dL Hct (39.0-53.0) % MCHC (31.0-37.0) g/dL RDW (11.5-15.5) % Lymphocytes # (1.0-4.8) k/uL INR (<1.2) POC Glucose (mg/dL) 206 H 134 H (70-110) mg/dL Microbiology - Last 24 Hours (Table) 11/24/23 22:47 Gram Stain - Final Buttock Wound Culture - Final Enterococcus faecium VRE 11/24/23 11:53 Blood Culture - Preliminary Blood
[2023-11-28 17:04] LABS: Glucose,Whole Blood 130 mg/dL (70-110)
--- NOTE | 2023-11-28 17:58 | P.PN ---
Progress Note - Text Progress Note Date: 11/28/23 ALLIEO. Tolerating CLD. Minimal output from colostomy General-NAD Abdomen-soft, NTND, ostomy with minimal output 73 year old male s/p Diverting Loop Sigmoid Colostomy for Sacral Decubitus Ulcer -Continue CLD -Pain and Nausea Control -Monitor Ostomy output -Local Wound Care for Decub Jt Alves [facility] [phone]
--- NOTE | 2023-11-28 19:25 | P.PN ---
Progress Note - Text Progress Note Date: 11/28/23 Chief Complaint: sacral decubitus ulcer Patient is a 73-year-old male with PMH of IDDM, hypertension, CKD stage II, chronic indwelling Davidson catheter, systolic CHF with ejection fraction of 40 to 45%, dementia, COPD with chronic hypoxemic respiratory failure not on home oxygen and bilateral AKA was brought to the ER by EMS for sacral decubitus ulcers. Patient has dementia and altered mental status and is not able to provide any reasonable history at the time of interview. History was mainly obtained from his daughter via phone call. According to his daughter, patient was doing generally well until this morning when he woke up seemingly confused and out of place. Patient was recently hospitalized for altered mentation on 11/10/2023 and was discharged after a month-long hospital course on 11/20/2023. Patient was discharged home with wound care provided by the visiting nurse. It was day one of the nurse visiting the patient for the wound care when she alerted the daughter to infectious sacral decubitus ulcers. Patient had fever and chills with poor appetite this morning. Patient did have debridement done on November [address] Alves from general surgery during the course of previous admission. Per ID Sayed patient was at high risk for second infection because of its location and probability of getting contaminated with stool and was advised to keep the area clean and of pressure. Patient was not discharged on any oral antibiotics. November 24: Laying in bed. Comfortable. Answering some question. Patient on IV Zosyn. Eating about 50%. Appears comfortable. Spoke to Dr. Lambert the surgeon and he agrees that diverting colostomy and the only option if any sacral wound has not improved. Also spoke at length with patient's daughter Gennaro on the phone. Antibiotics will frankly not help much. She will talk to her brother geomorphology teacher and get back to us. I did also then talk about hospice. At this point they are leaning towards continued care. Total time spent today about 50 minutes with over 30 minutes of discussion. November 25: Laying in bed. Comfortable. On pured diet. Spoke to patient's daughter over the phone. She had discussed with her brother this morning has agreed to proceed for surgery. She was informed about moderate cardiovascular risk. 2D echo ordered. Cardiology consulted. Discussed with Dr. Mcknight from general surgery. Return about the patient for tomorrow. Patient is medically stable to proceed with surgery without moderate perioperative cardiovascular risk. For blood pressure controlled Cozaar has been added. I spent over 50 minutes today with over 30 minutes of discussion November 26: Saw the patient this morning. Was n.p.o. for procedure. This afternoon underwent loop colostomy by Dr. Lopez. Postprocedure clear liquid diet has been ordered. I spoke to Dr. Maya. Surgery went well. November 27: Patient remains on clear liquid per surgery. Has a fresh loop colostomy from yesterday. Comfortable. Answering questions. Active Medications Acetaminophen (Acetaminophen Tab 325 Mg Tab) 650 mg PO Q6HR PRN PRN Reason: Mild Pain or Fever > 100.5 Last Admin: 11/26/23 13:30 Dose: 650 mg Hydrocodone Bitart/Acetaminophen (Hydrocodone/Apap 5-325mg 1 Each Tab) 1 each PO Q4HR PRN PRN Reason: Pain Last Admin: 11/28/23 14:58 Dose: 1 each Hydrocodone Bitart/Acetaminophen (Hydrocodone/Apap 7.5-325mg 1 Each Tab) 1 each PO Q6HR PRN PRN Reason: Pain Last Admin: 11/27/23 18:32 Dose: 1 each Amlodipine Besylate (Amlodipine 10 Mg Tab) 10 mg PO DAILY [facility] Last Admin: 11/28/23 08:54 Dose: 10 mg Aspirin (Aspirin 81 Mg) 81 mg PO DAILY [facility] Last Admin: 11/28/23 08:54 Dose: 81 mg Dextrose/Water (Dextrose 50% Syringe 50 Ml) 25 ml IVP PER PROTOCOL PRN; Protocol PRN Reason: Hypoglycemia Dextrose/Water (Dextrose 50% Syringe 50 Ml) 50 ml IVP PER PROTOCOL PRN; Protocol PRN Reason: Hypoglycemia Enoxaparin Sodium (Enoxaparin 40 Mg/0.4 Ml Syringe) 40 mg SQ DAILY [facility] Last Admin: 11/28/23 08:53 Dose: 40 mg Famotidine (Famotidine 20 Mg Tab) 20 mg PO BID [facility] Last Admin: 11/28/23 08:54 Dose: 20 mg Gabapentin (Gabapentin 300 Mg Cap) 300 mg PO BID [facility] Last Admin: 11/28/23 08:53 Dose: 300 mg Glycopyrrolate (Glycopyrrolate 1 Mg Tab) 1 mg PO TID PRN PRN Reason: drooling Sodium Chloride (Saline 0.9%) 1,000 mls @ 75 mls/hr IV .[id number] [facility] Last Admin: 11/28/23 08:59 Dose: 75 mls/hr Daptomycin 250 mg/ Sodium (Chloride) 50 mls @ 100 mls/hr IVPB Q24H [facility]; Protocol Last Admin: 11/28/23 03:23 Dose: 100 mls/hr Ceftriaxone Sodium 2 gm/ (Sodium Chloride) 50 mls @ 100 mls/hr IVPB Q24HR [facility]; Protocol Last Admin: 11/28/23 08:53 Dose: 100 mls/hr Insulin Aspart (Insulin Aspart (Novolog) 100 Unit/Ml Vial) 0 unit SQ ACHS [facility]; Protocol Last Admin: 11/28/23 17:48 Dose: Not Given Losartan Potassium (Losartan 50 Mg Tab) 100 mg PO [facility] Last Admin: 11/27/23 22:38 Dose: 100 mg Metronidazole (Metronidazole 500 Mg Tab) 500 mg PO TID [facility]; Protocol Last Admin: 11/28/23 14:58 Dose: 500 mg Morphine Sulfate (Morphine Sulfate 2 Mg/Ml Syringe) 2 mg IVP Q4HR PRN PRN Reason: Pain/Discomfort Last Admin: 11/24/23 18:16 Dose: 2 mg Naloxone HCl (Naloxone 0.4 Mg/Ml 1 Ml Vial) 0.2 mg IV Q2M PRN PRN Reason: Opioid Reversal Nystatin (Nystatin 100,000 Unit/Gm Powd 15 Gm) 1 applic TOPICAL BID [facility]; Protocol Last Admin: 11/28/23 08:54 Dose: 1 applic Ondansetron HCl (Ondansetron 4 Mg/2 Ml Vial) 4 mg IVP Q8HR PRN PRN Reason: Nausea And Vomiting Petrolatum (Zinc Oxide Paste (Z-Guard) 1 Applic) 1 applic TOPICAL BID PRN; Protocol PRN Reason: Wound Healing Spironolactone (Spironolactone 25 Mg Tab) 25 mg PO DAILY [facility] Tamsulosin HCl (Tamsulosin 0.4 Mg Cap.Er.24h) 0.4 mg PO DAILY [facility] Last Admin: 11/28/23 08:53 Dose: 0.4 mg Trazodone HCl (Trazodone Hcl 50 Mg Tab) 50 mg PO [facility] Last Admin: 11/27/23 22:38 Dose: 50 mg Social history: Former smoker. At home. Cared for by his daughter. Physical examination: VITAL SIGNS: 98.2, 73, 18, 177 x 67, 97% room air GENERAL: Laying in bed. Comfortable EYES: [Pupils equal. Conjunctiva pale HEENT: External appearance of nose and ears normal, oral cavity less dry mucous membrane. NECK: JVD not raised; masses not palpable. HEART: First and second heart sounds are normal; no edema. LUNGS: Respiratory rate increased; decreased breath sounds. ABDOMEN: Soft, nontender, liver spleen not palpable, no masses palpable. Davidson catheter PSYCH: Answering occasional questions MUSCULOSKELETAL:No Clubbing/cyanosis;muscles-grossly intact. Sacral decubitus wound NEUROLOGICAL: [Cranial nerves grossly intact; no facial asymmetry, bilateral above-knee amputation INVESTIGATIONS, reviewed in the clinical context: November 26: White count 8.7 hemoglobin 8.3 platelets 425 November 25, 2023: White count 8.9 hemoglobin 8.7 platelets 41 potassium 4.2 BUN 11 creatinine 0.75 Assessment plan: #Sacral decubitus ulcer, unstageable last admission patient had debridement done by Dr. Alves. 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 Follow Accu-Cheks -Chronic left kidney atrophy -Chronic bilateral above-knee amputation -Primary osteoarthritis [place] as needed -Essential hypertension, uncontrolled Cozaar t100 mg nightly. Aldactone 12.5 daily -Chronic bladder outflow obstruction BPH, with chronic Davidson catheter Flomax -Chronic congestive heart failure from systolic dysfunction EF 40 to 45% Cozaar. Aldactone added. Telemetry. -Peripheral neuropathy -Moderate protein calorie malnutrition decreased oral intake Ensure -Full code Diet to be advanced per surgery. Other medications to continue. 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 Date of last positivie culture/infection: 10/28/22 MDRO Source:: Blood Past Surgical History: Heart Catheterization Additional Past Surgical History / Comment(s): bilateral great toes amputated, 2nd toe lt foot partial amputation, multiple debridements of venous ulcers, colonoscopy, surgery as a child for undescended testicle., ABOVE THE KNEE AMPUTATION RIGHT LEG (JUNE 2017-[facility]) Past Anesthesia/Blood Transfusion Reactions: No Reported Reaction Date of Last Stent Placement:: 10/17/2022 Past Psychological History: Anxiety, Depression Smoking Status: Former smoker Past Alcohol Use History: Unable to Obtain Past Drug Use History: Unable to Obtain
[2023-11-28 20:19] LABS: Glucose,Whole Blood 126 mg/dL (70-110)
--- NOTE | 2023-11-28 22:36 | P.PN ---
Subjective Progress Note Date: 11/28/23 Principal diagnosis: Reason for follow-up is infected sacral ulcer and diarrhea Patient is a 73-year-old male with a past medical history significant for diabetes mellitus hypertension hyperlipidemia osteoarthritis history of diabetic foot infection requiring bilateral [id number]-nzt-utme amputation recent admission to the hospital treated for pneumonia UTI and also have a sacral pressure ulcer that was debrided, patient brought back to the hospital concerning for worsening wound and unable to be taken care of at home, Patient is status post diverting colostomy completed on 11/27/2023 On today's evaluation 11/28/2023, the patient continues to be afebrile, the patient is on room air and breathing comfortably, in no distress patient noticed to be sleepy lethargic and did not answer any question no vomiting or diarrhea reported by the nursing staff. No new lab has been obtained today cultures from his gluteal wound has been finalized with the VRE sensitive daptomycin Objective - Vital Signs Vital signs: Vital Signs Temp 98.6 F 11/28/23 13:43 Pulse 74 11/28/23 13:43 Resp 14 11/28/23 13:43 BP 169/62 11/28/23 13:43 Pulse Ox 98 11/28/23 13:43 FiO2 Intake & Output 11/27/23 11/28/23 11/28/23 18:59 06:59 18:59 Intake Total 1200 322 Output Total 465 425 Balance 735 -425 322 Weight 60.8 kg Intake: IV 1200 Oral 322 Output: Urine 425 425 Estimated Blood Loss 40 Other: Voiding Method Indwelling Catheter Indwelling Catheter Indwelling Catheter # Bowel Movements 1 1 1 - Exam GENERAL DESCRIPTION: An elderly male lying in bed in no distress RESPIRATORY SYSTEM: Unlabored breathing , decreased breath sounds at bases HEART: S1 S2 regular rate and rhythm , ABDOMEN: Soft , no tenderness EXTREMITIES: Bilateral AKA stumps are currently healed - Labs CBC & Chem 7: 11/27/23 16:09 11/27/23 03:12 Labs: Abnormal Lab Results - Last 24 Hours (Table) 11/27/23 11/27/23 11/27/23 Range/Units 16:09 16:09 17:01 RBC 3.25 L (4.30-5.90) m/uL Hgb 8.3 L (13.0-17.5) gm/dL Hct 27.9 L (39.0-53.0) % MCHC 29.9 L (31.0-37.0) g/dL RDW 16.6 H (11.5-15.5) % Lymphocytes # 0.9 L (1.0-4.8) k/uL INR 1.2 H (<1.2) POC Glucose (mg/dL) 117 H (70-110) mg/dL 11/27/23 11/28/23 Range/Units 20:30 11:49 RBC (4.30-5.90) m/uL Hgb (13.0-17.5) gm/dL Hct (39.0-53.0) % MCHC (31.0-37.0) g/dL RDW (11.5-15.5) % Lymphocytes # (1.0-4.8) k/uL INR (<1.2) POC Glucose (mg/dL) 206 H 134 H (70-110) mg/dL Microbiology - Last 24 Hours (Table) 11/24/23 22:47 Gram Stain - Final Buttock Wound Culture - Final Enterococcus faecium VRE 11/24/23 11:53 Blood Culture - Preliminary Blood Assessment and Plan (1) Sacral decubitus ulcer Current Visit: Yes Status: Acute Code(s): L89.159 - PRESSURE ULCER OF SACRAL REGION, UNSPECIFIED STAGE SNOMED Code(s): 185927733 (2) Diarrhea Current Visit: Yes Status: Acute Code(s): R19.7 - DIARRHEA, UNSPECIFIED SNOMED Code(s): 60445377 Plan: 1patient presented to the hospital with worsening sacral wound which was recently debrided by surgical team there were no culture done currently wound base with minimal slough tissue culture have been obtained to guide further labile therapy consult for possible mild wound infection, keeping in mind close proximity to the anal canal and stool contamination will need to cover for the enteric gram-negative both aerobes and anaerobes. 2patient is status post diverting colostomy local culture growing Bacteroides and VRE sensitive to daptomycin patient antibiotic has been adjusted Rocephin Flagyl and daptomycin to continue and monitor clinical course closely Dictation was produced using [employer] dictation software. please excuse any grammatical, word or spelling errors. Time with Patient: Less than 30
[2023-11-29 07:30] LABS: Glucose,Whole Blood 100 mg/dL (70-110)
--- NOTE | 2023-11-29 09:22 | P.PN ---
Progress Note - Text Progress Note Date: 11/29/23 ALLIEO. Tolerating CLD. Minimal output from colostomy General-NAD Abdomen-soft, NTND, ostomy with minimal output 73 year old male s/p Diverting Loop Sigmoid Colostomy for Sacral Decubitus Ulcer -Advanced to FLD -Pain and Nausea Control -Monitor Ostomy output -Local Wound Care for Decub Jt Alves [facility] [phone]
[2023-11-29 09:33] LABS: Blood Urea Nitrogen 7.5 mg/dL (9.0-27.0); Calcium 7.1 mg/dL (8.7-10.3); Carbon Dioxide 18.5 mmol/L (21.6-31.8); Chloride 113 mmol/L (96-109); Glucose 100 mg/dL (70-110); Potassium 3.2 mmol/L (3.5-5.5); Sodium 141 mmol/L (135-145)
[2023-11-29] MEDS: SPIRONOLACTONE 25 MG TAB PO SCH (09:40)
[2023-11-29 09:49] LABS: Basophils # (A) 0.03 X 10*3/uL (0.00-0.10); Basophils % (A) 0.3 %; Eosinophils # (A) 0.07 X 10*3/uL (0.04-0.35); Eosinophils % (A) 0.7 %; HCT 28.3 % (39.6-50.0); HGB 8.1 g/dL (13.0-17.0); Lymphocytes # (A) 0.73 X 10*3/uL (0.90-5.00); Lymphocytes % (A) 7.8 %; MCH 24.6 pg (27.0-32.0); MCHC 28.6 g/dL (32.0-37.0); Mean Platelet Volume 10.5 FL (9.5-12.2); Monocytes # (A) 0.57 X 10*3/uL (0.20-1.00); Monocytes % (A) 6.1 %; NRBC Per 100 WBC 0 X 10*3/uL (0.00-0.01); Neutrophils % (A) 84.6 %; Platelet Count 363 X 10*3/uL (140-440); RBC 3.29 X 10*6/uL (4.40-5.60); RDW 16.7 % (11.5-14.5); WBC 9.35 X 10*3/uL (4.50-10.00)
--- NOTE | 2023-11-29 12:13 | P.PN ---
Subjective Progress Note Date: 11/29/23 The patient was seen and evaluated this morning with he is asymptomatic but he does have significantly low functional capacity. The pressure remains elevated and consistent with stage II hypertension in spite of increasing the dose and currently maximum dose of losartan and also maximum dose of amlodipine. He is on Aldactone at 12.5 mg p.o. daily which I am going to increase to 25 mg p.o. daily. Examination is remarkable for regular rhythm with a systolic murmur at the right upper sternal border and diminished breathing sounds bilaterally and bilateral jtjor-mbf-ywme amputation November 29, 2023 The patient was seen and evaluated this morning. He is asymptomatic from a cardiovascular standpoint of view. The pressure remains elevated but Aldactone dose was just increased yesterday. I would monitor the patient for additional 24 hours and if the pressure remains elevated I would consider adding hydralazine to the current medical regimen. The physical examination is remarkable for regular rhythm with a systolic murmur at right upper sternal border with clear breathing sounds bilaterally and bilateral jmofo-lzk-hmru amputation Assessment Paroxysmal atrial fibrillation not on anticoagulation for unknown reason Coronary artery disease with prior PCI more than a year ago Hypertension not well-controlled Multiple comorbid conditions Plan Continue the current medical regimen Monitor the blood pressure for additional 24 hours Consider adding hydralazine if the pressure remains elevated Objective - Vital Signs Vital signs: Vital Signs Temp 99.8 F H 11/29/23 07:44 Pulse 80 11/29/23 07:44 Resp 18 11/29/23 07:44 BP 174/65 11/29/23 07:44 Pulse Ox 95 11/29/23 07:44 FiO2 Intake & Output 11/28/23 11/29/23 11/29/23 18:59 06:59 18:59 Intake Total 1222 60 Output Total 400 900 Balance 822 -900 60 Intake: Intake, IV Titration 900 Amount Sodium Chloride 0.9% 1, 900 000 ml @ 75 mls/hr IV . [id number] [facility] Rx#:[id number] Oral 322 60 Output: Urine 400 900 Other: Voiding Method Indwelling Catheter Indwelling Catheter Indwelling Catheter # Bowel Movements 1 1 - Labs CBC & Chem 7: 11/29/23 06:44 11/29/23 06:44 Labs: Abnormal Lab Results - Last 24 Hours (Table) 11/28/23 11/28/23 11/29/23 Range/Units 17:03 20:17 06:44 RBC 3.29 L (4.40-5.60) X 10*6/uL Hgb 8.1 L (13.0-17.0) g/dL Hct 28.3 L (39.6-50.0) % MCH 24.6 L (27.0-32.0) pg MCHC 28.6 L (32.0-37.0) g/dL RDW 16.7 H (11.5-14.5) % Immature Gran # 0.05 H (0.00-0.04) X 10*3/uL Neutrophils # 7.90 H (1.80-7.70) X 10*3/uL Lymphocytes # 0.73 L (0.90-5.00) X 10*3/uL Potassium (3.5-5.5) mmol/L Chloride (96-109) mmol/L Carbon Dioxide (21.6-31.8) mmol/L BUN (9.0-27.0) mg/dL Creatinine (0.6-1.5) mg/dL POC Glucose (mg/dL) 130 H 126 H (70-110) mg/dL Calcium (8.7-10.3) mg/dL 11/29/23 Range/Units 06:44 RBC (4.40-5.60) X 10*6/uL Hgb (13.0-17.0) g/dL Hct (39.6-50.0) % MCH (27.0-32.0) pg MCHC (32.0-37.0) g/dL RDW (11.5-14.5) % Immature Gran # (0.00-0.04) X 10*3/uL Neutrophils # (1.80-7.70) X 10*3/uL Lymphocytes # (0.90-5.00) X 10*3/uL Potassium 3.2 L (3.5-5.5) mmol/L Chloride 113 H (96-109) mmol/L Carbon Dioxide 18.5 L (21.6-31.8) mmol/L BUN 7.5 L (9.0-27.0) mg/dL Creatinine 0.5 L (0.6-1.5) mg/dL POC Glucose (mg/dL) (70-110) mg/dL Calcium 7.1 L (8.7-10.3) mg/dL
[2023-11-29 12:36] LABS: Glucose,Whole Blood 121 mg/dL (70-110)
--- NOTE | 2023-11-29 13:59 | P.PN ---
Progress Note - Text Progress Note Date: 11/29/23 Chief Complaint: sacral decubitus ulcer Patient is a 73-year-old male with PMH of IDDM, hypertension, CKD stage II, chronic indwelling Davidson catheter, systolic CHF with ejection fraction of 40 to 45%, dementia, COPD with chronic hypoxemic respiratory failure not on home oxygen and bilateral AKA was brought to the ER by EMS for sacral decubitus ulcers. Patient has dementia and altered mental status and is not able to provide any reasonable history at the time of interview. History was mainly obtained from his daughter via phone call. According to his daughter, patient was doing generally well until this morning when he woke up seemingly confused and out of place. Patient was recently hospitalized for altered mentation on 11/10/2023 and was discharged after a month-long hospital course on 11/20/2023. Patient was discharged home with wound care provided by the visiting nurse. It was day one of the nurse visiting the patient for the wound care when she alerted the daughter to infectious sacral decubitus ulcers. Patient had fever and chills with poor appetite this morning. Patient did have debridement done on November [address] Alves from general surgery during the course of previous admission. Per ID Sayed patient was at high risk for second infection because of its location and probability of getting contaminated with stool and was advised to keep the area clean and of pressure. Patient was not discharged on any oral antibiotics. November 24: Laying in bed. Comfortable. Answering some question. Patient on IV Zosyn. Eating about 50%. Appears comfortable. Spoke to Dr. Lambert the surgeon and he agrees that diverting colostomy and the only option if any sacral wound has not improved. Also spoke at length with patient's daughter Gennaro on the phone. Antibiotics will frankly not help much. She will talk to her brother etl architect and get back to us. I did also then talk about hospice. At this point they are leaning towards continued care. Total time spent today about 50 minutes with over 30 minutes of discussion. November 25: Laying in bed. Comfortable. On pured diet. Spoke to patient's daughter over the phone. She had discussed with her brother this morning has agreed to proceed for surgery. She was informed about moderate cardiovascular risk. 2D echo ordered. Cardiology consulted. Discussed with Dr. Mcknight from general surgery. Return about the patient for tomorrow. Patient is medically stable to proceed with surgery without moderate perioperative cardiovascular risk. For blood pressure controlled Cozaar has been added. I spent over 50 minutes today with over 30 minutes of discussion November 26: Saw the patient this morning. Was n.p.o. for procedure. This afternoon underwent loop colostomy by Dr. Lopez. Postprocedure clear liquid diet has been ordered. I spoke to Dr. Maya. Surgery went well. November 27: Patient remains on clear liquid per surgery. Has a fresh loop colostomy from yesterday. Comfortable. Answering questions. November 28: In bed. Comfortable. On clear liquid diet. Diet advanced to full liquid per surgery. Looking into discharge to [facility]CF tomorrow. Active Medications Acetaminophen (Acetaminophen Tab 325 Mg Tab) 650 mg PO Q6HR PRN PRN Reason: Mild Pain or Fever > 100.5 Last Admin: 11/26/23 13:30 Dose: 650 mg Hydrocodone Bitart/Acetaminophen (Hydrocodone/Apap 5-325mg 1 Each Tab) 1 each PO Q4HR PRN PRN Reason: Pain Last Admin: 11/28/23 14:58 Dose: 1 each Hydrocodone Bitart/Acetaminophen (Hydrocodone/Apap 7.5-325mg 1 Each Tab) 1 each PO Q6HR PRN PRN Reason: Pain Last Admin: 11/29/23 13:25 Dose: 1 each Amlodipine Besylate (Amlodipine 10 Mg Tab) 10 mg PO DAILY [facility] Last Admin: 11/29/23 09:41 Dose: 10 mg Aspirin (Aspirin 81 Mg) 81 mg PO DAILY [facility] Last Admin: 11/29/23 09:40 Dose: 81 mg Dextrose/Water (Dextrose 50% Syringe 50 Ml) 25 ml IVP PER PROTOCOL PRN; Protocol PRN Reason: Hypoglycemia Dextrose/Water (Dextrose 50% Syringe 50 Ml) 50 ml IVP PER PROTOCOL PRN; Protocol PRN Reason: Hypoglycemia Enoxaparin Sodium (Enoxaparin 40 Mg/0.4 Ml Syringe) 40 mg SQ DAILY [facility] Last Admin: 11/29/23 09:40 Dose: 40 mg Famotidine (Famotidine 20 Mg Tab) 20 mg PO BID [facility] Last Admin: 11/29/23 09:41 Dose: 20 mg Gabapentin (Gabapentin 300 Mg Cap) 300 mg PO BID [facility] Last Admin: 11/29/23 09:41 Dose: 300 mg Glycopyrrolate (Glycopyrrolate 1 Mg Tab) 1 mg PO TID PRN PRN Reason: drooling Sodium Chloride (Saline 0.9%) 1,000 mls @ 75 mls/hr IV .[id number] [facility] Last Admin: 11/29/23 13:34 Dose: 75 mls/hr Daptomycin 250 mg/ Sodium (Chloride) 50 mls @ 100 mls/hr IVPB Q24H [facility]; Protocol Last Admin: 11/28/23 22:05 Dose: 100 mls/hr Ceftriaxone Sodium 2 gm/ (Sodium Chloride) 50 mls @ 100 mls/hr IVPB Q24HR [facility]; Protocol Last Admin: 11/29/23 09:41 Dose: 100 mls/hr Insulin Aspart (Insulin Aspart (Novolog) 100 Unit/Ml Vial) 0 unit SQ ACHS [facility]; Protocol Last Admin: 11/29/23 13:24 Dose: Not Given Losartan Potassium (Losartan 50 Mg Tab) 100 mg PO [facility] Last Admin: 11/28/23 20:43 Dose: 100 mg Metronidazole (Metronidazole 500 Mg Tab) 500 mg PO TID [facility]; Protocol Last Admin: 11/29/23 09:41 Dose: 500 mg Naloxone HCl (Naloxone 0.4 Mg/Ml 1 Ml Vial) 0.2 mg IV Q2M PRN PRN Reason: Opioid Reversal Nystatin (Nystatin 100,000 Unit/Gm Powd 15 Gm) 1 applic TOPICAL BID [facility]; Protocol Last Admin: 11/29/23 09:42 Dose: 1 applic Ondansetron HCl (Ondansetron 4 Mg/2 Ml Vial) 4 mg IVP Q8HR PRN PRN Reason: Nausea And Vomiting Petrolatum (Zinc Oxide Paste (Z-Guard) 1 Applic) 1 applic TOPICAL BID PRN; Protocol PRN Reason: Wound Healing Spironolactone (Spironolactone 25 Mg Tab) 25 mg PO DAILY [facility] Last Admin: 11/29/23 09:40 Dose: 25 mg Tamsulosin HCl (Tamsulosin 0.4 Mg Cap.Er.24h) 0.4 mg PO DAILY [facility] Last Admin: 11/29/23 09:40 Dose: 0.4 mg Trazodone HCl (Trazodone Hcl 50 Mg Tab) 50 mg PO [facility] Last Admin: 11/28/23 20:44 Dose: 50 mg Social history: Former smoker. At home. Cared for by his daughter. Physical examination: VITAL SIGNS: 98, 71, 18, 160 x 61, 97% room air GENERAL: Laying in bed. Comfortable EYES: [Pupils equal. Conjunctiva pale HEENT: External appearance of nose and ears normal, oral cavity less dry mucous membrane. NECK: JVD not raised; masses not palpable. HEART: First and second heart sounds are normal; no edema. LUNGS: Respiratory rate increased; decreased breath sounds. ABDOMEN: Soft, nontender, liver spleen not palpable, no masses palpable. Davidson catheter PSYCH: Answering simple l questions MUSCULOSKELETAL:No Clubbing/cyanosis;muscles-grossly intact. Sacral decubitus wound NEUROLOGICAL: [Cranial nerves grossly intact; no facial asymmetry, bilateral above-knee amputation INVESTIGATIONS, reviewed in the clinical context: November 28: White count 9.3 hemoglobin 8.1 platelets 363 potassium 3.2 cre atinine 0.5 November 26: White count 8.7 hemoglobin 8.3 platelets 425 November 25, 2023: White count 8.9 hemoglobin 8.7 platelets 41 potassium 4.2 BUN 11 creatinine 0.75 Assessment plan: #Sacral decubitus ulcer, unstageable last admission patient had debridement done by Dr. Alves. 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 Follow Accu-Cheks -Chronic left kidney atrophy -Chronic bilateral above-knee amputation -Primary osteoarthritis [place] as needed -Essential hypertension, uncontrolled Cozaar t100 mg nightly. Aldactone 12.5 daily -Chronic bladder outflow obstruction BPH, with chronic Davidson catheter Flomax -Chronic congestive heart failure from systolic dysfunction EF 40 to 45% Cozaar. Aldactone added. Telemetry. -Peripheral neuropathy -Moderate protein calorie malnutrition decreased oral intake Ensure -Full code Full liquid diet. Will discuss antibiotics with ID. 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 Date of last positivie culture/infection: 10/28/22 MDRO Source:: Blood Past Surgical History: Heart Catheterization Additional Past Surgical History / Comment(s): bilateral great toes amputated, 2nd toe lt foot partial amputation, multiple debridements of venous ulcers, colonoscopy, surgery as a child for undescended testicle., ABOVE THE KNEE AMPUTATION RIGHT LEG (JUNE 2017-[facility]) Past Anesthesia/Blood Transfusion Reactions: No Reported Reaction Date of Last Stent Placement:: 10/17/2022 Past Psychological History: Anxiety, Depression Smoking Status: Former smoker Past Alcohol Use History: Unable to Obtain Past Drug Use History: Unable to Obtain
--- NOTE | 2023-11-29 15:32 | P.PN ---
Subjective Progress Note Date: 11/29/23 Principal diagnosis: Reason for follow-up is infected sacral ulcer and diarrhea Patient is a 73-year-old male with a past medical history significant for diabetes mellitus hypertension hyperlipidemia osteoarthritis history of diabetic foot infection requiring bilateral [id number]-uvxf amputation recent admission to the hospital treated for pneumonia UTI and also have a sacral pressure ulcer that was debrided, patient brought back to the hospital concerning for worsening wound and unable to be taken care of at home, Patient is status post diverting colostomy completed on 11/27/2023 On today's evaluation that is 11/29/2023, Patient did have a low-grade fever of 99.8 F this morning the patient is afebrile since then, patient is currently on room air and denies having any shortness of breath, the patient denies any chest pain or cough, the patient denies any nausea vomiting abdominal pain is currently controlled did have minimal output in his colostomy. The patient white count is 9.35, creatinine 0.5 Objective - Vital Signs Vital signs: Vital Signs Temp 98 F 11/29/23 12:48 Pulse 71 11/29/23 12:48 Resp 18 11/29/23 12:48 BP 160/61 11/29/23 12:48 Pulse Ox 97 11/29/23 12:48 FiO2 Intake & Output 11/28/23 11/29/23 11/29/23 18:59 06:59 18:59 Intake Total 1222 60 Output Total 400 900 Balance 822 -900 60 Intake: Intake, IV Titration 900 Amount Sodium Chloride 0.9% 1, 900 000 ml @ 75 mls/hr IV . [id number] [facility] Rx#:[id number] Oral 322 60 Output: Urine 400 900 Other: Voiding Method Indwelling Catheter Indwelling Catheter Indwelling Catheter # Bowel Movements 1 1 - Exam GENERAL DESCRIPTION: An elderly male lying in bed in no distress RESPIRATORY SYSTEM: Unlabored breathing , decreased breath sounds at bases HEART: S1 S2 regular rate and rhythm , ABDOMEN: Soft , no tenderness EXTREMITIES: Bilateral AKA stumps are currently healed - Labs CBC & Chem 7: 11/29/23 06:44 11/29/23 06:44 Labs: Abnormal Lab Results - Last 24 Hours (Table) 11/28/23 11/28/23 11/29/23 Range/Units 17:03 20:17 06:44 RBC 3.29 L (4.40-5.60) X 10*6/uL Hgb 8.1 L (13.0-17.0) g/dL Hct 28.3 L (39.6-50.0) % MCH 24.6 L (27.0-32.0) pg MCHC 28.6 L (32.0-37.0) g/dL RDW 16.7 H (11.5-14.5) % Immature Gran # 0.05 H (0.00-0.04) X 10*3/uL Neutrophils # 7.90 H (1.80-7.70) X 10*3/uL Lymphocytes # 0.73 L (0.90-5.00) X 10*3/uL Potassium (3.5-5.5) mmol/L Chloride (96-109) mmol/L Carbon Dioxide (21.6-31.8) mmol/L BUN (9.0-27.0) mg/dL Creatinine (0.6-1.5) mg/dL POC Glucose (mg/dL) 130 H 126 H (70-110) mg/dL Calcium (8.7-10.3) mg/dL 11/29/23 11/29/23 Range/Units 06:44 12:31 RBC (4.40-5.60) X 10*6/uL Hgb (13.0-17.0) g/dL Hct (39.6-50.0) % MCH (27.0-32.0) pg MCHC (32.0-37.0) g/dL RDW (11.5-14.5) % Immature Gran # (0.00-0.04) X 10*3/uL Neutrophils # (1.80-7.70) X 10*3/uL Lymphocytes # (0.90-5.00) X 10*3/uL Potassium 3.2 L (3.5-5.5) mmol/L Chloride 113 H (96-109) mmol/L Carbon Dioxide 18.5 L (21.6-31.8) mmol/L BUN 7.5 L (9.0-27.0) mg/dL Creatinine 0.5 L (0.6-1.5) mg/dL POC Glucose (mg/dL) 121 H (70-110) mg/dL Calcium 7.1 L (8.7-10.3) mg/dL Assessment and Plan (1) Sacral decubitus ulcer Current Visit: Yes Status: Acute Code(s): L89.159 - PRESSURE ULCER OF SACRAL REGION, UNSPECIFIED STAGE SNOMED Code(s): 685273658 (2) Diarrhea Current Visit: Yes Status: Acute Code(s): R19.7 - DIARRHEA, UNSPECIFIED SNOMED Code(s): 91165659 Plan: 1patient presented to the hospital with worsening sacral wound which was recently debrided by surgical team there were no culture done currently wound base with minimal slough tissue culture have been obtained to guide further labile therapy consult for possible mild wound infection, keeping in mind close proximity to the anal canal and stool contamination will need to cover for the enteric gram-negative both aerobes and anaerobes. 2patient is status post diverting colostomy local culture growing Bacteroides and VRE sensitive to daptomycin 3plan is for midline and a 2-week course of Rocephin Flagyl and daptomycin on discharge Care discussed with the daughter at the bedside Dictation was produced using [employer] dictation software. please excuse any grammatical, word or spelling errors. Time with Patient: Less than 30
[2023-11-29 17:15] LABS: Glucose,Whole Blood 196 mg/dL (70-110)
[2023-11-29 20:14] LABS: Glucose,Whole Blood 179 mg/dL (70-110)
[2023-11-30 07:41] LABS: Glucose,Whole Blood 140 mg/dL (70-110)
--- NOTE | 2023-11-30 07:49 | P.PN ---
Progress Note - Text Progress Note Date: 11/30/23 MARY. Tolerating FLD. Minimal output from colostomy General-NAD Abdomen-soft, NTND, ostomy with minimal output 73 year old male s/p Diverting Loop Sigmoid Colostomy for Sacral Decubitus Ulcer -Advanced to Regular Diet -Pain and Nausea Control -Monitor Ostomy output -Local Wound Care for Decub Jt Alves [facility] [phone]
[2023-11-30 12:12] LABS: Glucose,Whole Blood 205 mg/dL (70-110)
[2023-11-30 17:17] LABS: Glucose,Whole Blood 227 mg/dL (70-110)
[2023-11-30 20:01] LABS: Glucose,Whole Blood 222 mg/dL (70-110)
--- NOTE | 2023-11-30 20:46 | P.PN ---
Progress Note - Text Progress Note Date: 11/30/23 Chief Complaint: sacral decubitus ulcer Patient is a 73-year-old male with PMH of IDDM, hypertension, CKD stage II, chronic indwelling Davidson catheter, systolic CHF with ejection fraction of 40 to 45%, dementia, COPD with chronic hypoxemic respiratory failure not on home oxygen and bilateral AKA was brought to the ER by EMS for sacral decubitus ulcers. Patient has dementia and altered mental status and is not able to provide any reasonable history at the time of interview. History was mainly obtained from his daughter via phone call. According to his daughter, patient was doing generally well until this morning when he woke up seemingly confused and out of place. Patient was recently hospitalized for altered mentation on 11/10/2023 and was discharged after a month-long hospital course on 11/20/2023. Patient was discharged home with wound care provided by the visiting nurse. It was day one of the nurse visiting the patient for the wound care when she alerted the daughter to infectious sacral decubitus ulcers. Patient had fever and chills with poor appetite this morning. Patient did have debridement done on November [address] Alves from general surgery during the course of previous admission. Per ID Sayed patient was at high risk for second infection because of its location and probability of getting contaminated with stool and was advised to keep the area clean and of pressure. Patient was not discharged on any oral antibiotics. November 24: Laying in bed. Comfortable. Answering some question. Patient on IV Zosyn. Eating about 50%. Appears comfortable. Spoke to Dr. Lambert the surgeon and he agrees that diverting colostomy and the only option if any sacral wound has not improved. Also spoke at length with patient's daughter Gennaro on the phone. Antibiotics will frankly not help much. She will talk to her brother car runner and get back to us. I did also then talk about hospice. At this point they are leaning towards continued care. Total time spent today about 50 minutes with over 30 minutes of discussion. November 25: Laying in bed. Comfortable. On pured diet. Spoke to patient's daughter over the phone. She had discussed with her brother this morning has agreed to proceed for surgery. She was informed about moderate cardiovascular risk. 2D echo ordered. Cardiology consulted. Discussed with Dr. Mcknight from general surgery. Return about the patient for tomorrow. Patient is medically stable to proceed with surgery without moderate perioperative cardiovascular risk. For blood pressure controlled Cozaar has been added. I spent over 50 minutes today with over 30 minutes of discussion November 26: Saw the patient this morning. Was n.p.o. for procedure. This afternoon underwent loop colostomy by Dr. Lopez. Postprocedure clear liquid diet has been ordered. I spoke to Dr. Maya. Surgery went well. November 27: Patient remains on clear liquid per surgery. Has a fresh loop colostomy from yesterday. Comfortable. Answering questions. November 28: In bed. Comfortable. On clear liquid diet. Diet advanced to full liquid per surgery. Looking into discharge to ECF tomorrow. November 29: In bed. Answering simple questions. Regular diet. Very little output through the colostomy. Authorization for ECF has been resubmitted. Spoke to social services designee. Eating better today. Add Metamucil discussed with ID for another week of antibiotics Active Medications Acetaminophen (Acetaminophen Tab 325 Mg Tab) 650 mg PO Q6HR PRN PRN Reason: Mild Pain or Fever > 100.5 Last Admin: 11/26/23 13:30 Dose: 650 mg Hydrocodone Bitart/Acetaminophen (Hydrocodone/Apap 5-325mg 1 Each Tab) 1 each PO Q4HR PRN PRN Reason: Pain Last Admin: 11/28/23 14:58 Dose: 1 each Hydrocodone Bitart/Acetaminophen (Hydrocodone/Apap 7.5-325mg 1 Each Tab) 1 each PO Q6HR PRN PRN Reason: Pain Last Admin: 11/30/23 12:17 Dose: 1 each Amlodipine Besylate (Amlodipine 10 Mg Tab) 10 mg PO DAILY [facility] Last Admin: 11/30/23 07:52 Dose: 10 mg Aspirin (Aspirin 81 Mg) 81 mg PO DAILY [facility] Last Admin: 11/30/23 07:52 Dose: 81 mg Dextrose/Water (Dextrose 50% Syringe 50 Ml) 25 ml IVP PER PROTOCOL PRN; Protocol PRN Reason: Hypoglycemia Dextrose/Water (Dextrose 50% Syringe 50 Ml) 50 ml IVP PER PROTOCOL PRN; Protocol PRN Reason: Hypoglycemia Enoxaparin Sodium (Enoxaparin 40 Mg/0.4 Ml Syringe) 40 mg SQ DAILY [facility] Last Admin: 11/30/23 07:51 Dose: 40 mg Famotidine (Famotidine 20 Mg Tab) 20 mg PO BID [facility] Last Admin: 11/30/23 07:52 Dose: 20 mg Gabapentin (Gabapentin 300 Mg Cap) 300 mg PO BID [facility] Last Admin: 11/30/23 07:52 Dose: 300 mg Glycopyrrolate (Glycopyrrolate 1 Mg Tab) 1 mg PO TID PRN PRN Reason: drooling Sodium Chloride (Saline 0.9%) 1,000 mls @ 10 mls/hr IV .Q24H [facility] Last Admin: 11/30/23 17:38 Dose: 75 mls/hr Daptomycin 250 mg/ Sodium (Chloride) 50 mls @ 100 mls/hr IVPB Q24H [facility]; Protocol Last Admin: 11/29/23 22:32 Dose: 100 mls/hr Ceftriaxone Sodium 2 gm/ (Sodium Chloride) 50 mls @ 100 mls/hr IVPB Q24HR [facility]; Protocol Last Admin: 11/30/23 07:53 Dose: 100 mls/hr Insulin Aspart (Insulin Aspart (Novolog) 100 Unit/Ml Vial) 0 unit SQ ACHS [facility]; Protocol Last Admin: 11/30/23 17:37 Dose: 4 unit Metronidazole (Metronidazole 500 Mg Tab) 500 mg PO TID [facility]; Protocol Last Admin: 11/30/23 17:38 Dose: 500 mg Naloxone HCl (Naloxone 0.4 Mg/Ml 1 Ml Vial) 0.2 mg IV Q2M PRN PRN Reason: Opioid Reversal Nystatin (Nystatin 100,000 Unit/Gm Powd 15 Gm) 1 applic TOPICAL BID [facility]; Protocol Last Admin: 11/30/23 07:53 Dose: 1 applic Ondansetron HCl (Ondansetron 4 Mg/2 Ml Vial) 4 mg IVP Q8HR PRN PRN Reason: Nausea And Vomiting Petrolatum (Zinc Oxide Paste (Z-Guard) 1 Applic) 1 applic TOPICAL BID PRN; Protocol PRN Reason: Wound Healing Spironolactone (Spironolactone 25 Mg Tab) 25 mg PO DAILY [facility] Last Admin: 11/30/23 07:52 Dose: 25 mg Tamsulosin HCl (Tamsulosin 0.4 Mg Cap.Er.24h) 0.4 mg PO DAILY [facility] Last Admin: 11/30/23 07:52 Dose: 0.4 mg Trazodone HCl (Trazodone Hcl 50 Mg Tab) 50 mg PO HS [facility] Last Admin: 11/29/23 20:30 Dose: 50 mg Valsartan (Valsartan 160 Mg Tab) 320 mg PO DAILY [facility] Social history: Former smoker. At home. Cared for by his daughter. Physical examination: VITAL SIGNS: 98.3, 82, 16, 158 with 75, 99% room air GENERAL: Laying in bed. Comfortable EYES: [Pupils equal. Conjunctiva pale HEENT: External appearance of nose and ears normal, oral cavity less dry mucous membrane. NECK: JVD not raised; masses not palpable. HEART: First and second heart sounds are normal; no edema. LUNGS: Respiratory rate increased; decreased breath sounds. ABDOMEN: Soft, nontender, liver spleen not palpable, no masses palpable. Davidson catheter PSYCH: Answering simple l questions MUSCULOSKELETAL:No Clubbing/cyanosis;muscles-grossly intact. Sacral decubitus wound NEUROLOGICAL: [Cranial nerves grossly intact; no facial asymmetry, bilateral above-knee amputation INVESTIGATIONS, reviewed in the clinical context: November 28: White count 9.3 hemoglobin 8.1 platelets 363 potassium 3.2 creatinine 0.5 November 26: White count 8.7 hemoglobin 8.3 platelets 425 November 25, 2023: White count 8.9 hemoglobin 8.7 platelets 41 potassium 4.2 BUN 11 creatinine 0.75 Assessment plan: #Sacral decubitus ulcer, unstageable last admission patient had debridement done by Dr. Alves. 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 Follow Accu-Cheks -Chronic left kidney atrophy -Chronic bilateral above-knee amputation -Primary osteoarthritis Viola as needed -Essential hypertension, uncontrolled Cozaar t100 mg nightly. Aldactone 12.5 daily -Chronic bladder outflow obstruction BPH, with chronic Davidson catheter Flomax -Chronic congestive heart failure from systolic dysfunction EF 40 to 45% Cozaar. Aldactone added. Telemetry. -Peripheral neuropathy -Moderate protein calorie malnutrition decreased oral intake Ensure -Full code Chopped diet. Very little output from the colostomy. Authorization submitted for ECF 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 Date of last positivie culture/infection: 10/28/22 MDRO Source:: Blood Past Surgical History: Heart Catheterization Additional Past Surgical History / Comment(s): bilateral great toes amputated, 2nd toe lt foot partial amputation, multiple debridements of venous ulcers, colonoscopy, surgery as a child for undescended testicle., ABOVE THE KNEE AMPUTATION RIGHT LEG (JUNE 2017-[facility]) Past Anesthesia/Blood Transfusion Reactions: No Reported Reaction Date of Last Stent Placement:: 10/17/2022 Past Psychological History: Anxiety, Depression Smoking Status: Former smoker Past Alcohol Use History: Unable to Obtain Past Drug Use History: Unable to Obtain
[2023-12-01 03:23] LABS: Anisocytosis Slight; Basophils % (A) 0 %; Eosinophils # (A) 0.1 k/uL (0-0.7); Eosinophils % (A) 2 %; HCT 26.1 % (39.0-53.0); HGB 8.1 gm/dL (13.0-17.5); Hypochromasia Marked; Lymphocytes # (A) 1.2 k/uL (1.0-4.8); Lymphocytes % (A) 19 %; MCH 25.9 pg (25.0-35.0); MCV 83.8 fL (80.0-100.0); Mean Platelet Volume 8.7; Monocytes # (A) 0.5 k/uL (0-1.0); Monocytes % (A) 8 %; Neutrophils # (A) 4.2 k/uL (1.3-7.7); Neutrophils % (A) 68 %; Platelet Count 377 k/uL (150-450); RBC 3.12 m/uL (4.30-5.90); RDW 16.8 % (11.5-15.5); WBC 6.1 k/uL (3.8-10.6)
[2023-12-01 03:33] LABS: African American GFR (CKD) >90 (>60 ml/min/1.73 sqM); Anion Gap 5 mmol/L; Blood Urea Nitrogen 6 mg/dL (9-20); Calcium 7.6 mg/dL (8.4-10.2); Carbon Dioxide 20 mmol/L (22-30); Chloride 116 mmol/L (98-107); Glucose 94 mg/dL (74-99); Non-African American GFR(CKD) >90 (>60 ml/min/1.73 sqM); Potassium 3.5 mmol/L (3.5-5.1); Sodium 141 mmol/L (137-145)
[2023-12-01 07:05] LABS: Glucose,Whole Blood 96 mg/dL (70-110)
--- NOTE | 2023-12-01 08:49 | P.PN ---
Subjective Progress Note Date: 11/30/23 Principal diagnosis: Reason for follow-up is infected sacral ulcer and diarrhea Patient is a 73-year-old male with a past medical history significant for diabetes mellitus hypertension hyperlipidemia osteoarthritis history of diabetic foot infection requiring bilateral [id number] amputation recent admission to the hospital treated for pneumonia UTI and also have a sacral pressure ulcer that was debrided, patient brought back to the hospital concerning for worsening wound and unable to be taken care of at home, Patient is status post diverting colostomy completed on 11/27/2023 On today's evaluation that is 11/30/2023, patient has been afebrile, patient is breathing comfortably and is currently on room air, patient denies having any significant cough no chest pain shortness of breath, patient denies nausea vomiting abdominal and sacral pain is currently controlled. Patient white count 6.1, creatinine 0.54 Objective - Vital Signs Vital signs: Vital Signs Temp 98.1 F 11/30/23 07:18 Pulse 76 11/30/23 07:18 Resp 15 11/30/23 07:18 BP 160/99 11/30/23 07:18 Pulse Ox 98 11/30/23 07:18 FiO2 Intake & Output 11/29/23 11/30/23 11/30/23 18:59 06:59 18:59 Intake Total 600 1260 240 Output Total 600 570 Balance 0 690 240 Intake: Intake, IV Titration 900 Amount DAPTOmycin 250 mg In 50 Sodium Chloride 0.9% 50 ml @ 100 mls/hr IVPB Q24H [facility] Rx#:[id number] Sodium Chloride 0.9% 1, 850 000 ml @ 75 mls/hr IV . [id number] [facility] Rx#:[id number] Oral 600 360 240 Output: Urine 600 570 Other: Voiding Method Indwelling Catheter Indwelling Catheter Indwelling Catheter # Bowel Movements 1 1 - Exam GENERAL DESCRIPTION: An elderly male lying in bed in no distress RESPIRATORY SYSTEM: Unlabored breathing , decreased breath sounds at bases HEART: S1 S2 regular rate and rhythm , ABDOMEN: Soft , no tenderness EXTREMITIES: Bilateral AKA stumps are currently healed - Labs CBC & Chem 7: 12/01/23 03:00 12/01/23 03:00 Labs: Abnormal Lab Results - Last 24 Hours (Table) 11/29/23 11/29/23 11/30/23 Range/Units 17:07 20:13 07:39 POC Glucose (mg/dL) 196 H 179 H 140 H (70-110) mg/dL 11/30/23 Range/Units 12:11 POC Glucose (mg/dL) 205 H (70-110) mg/dL Microbiology - Last 24 Hours (Table) 11/24/23 11:53 Blood Culture - Final Blood Assessment and Plan (1) Sacral decubitus ulcer Current Visit: Yes Status: Acute Code(s): L89.159 - PRESSURE ULCER OF SACRAL REGION, UNSPECIFIED STAGE SNOMED Code(s): 630069805 (2) Diarrhea Current Visit: Yes Status: Acute Code(s): R19.7 - DIARRHEA, UNSPECIFIED SNOMED Code(s): 89113353 Plan: 1patient presented to the hospital with worsening sacral wound which was recently debrided by surgical team there were no culture done currently wound base with minimal slough tissue culture have been obtained to guide further labile therapy consult for possible mild wound infection, keeping in mind close proximity to the anal canal and stool contamination will need to cover for the enteric gram-negative both aerobes and anaerobes. 2patient is status post diverting colostomy local culture growing Bacteroides and VRE sensitive to daptomycin 3plan is for midline continue with Rocephin Flagyl and daptomycin on discharge to finish a 2-week course of therapy Care discussed with the admitting physician on the floor Dictation was produced using [employer] dictation software. please excuse any grammatical, word or spelling errors. Time with Patient: Less than 30
[2023-12-01] MEDS: VALSARTAN 160 MG TAB PO SCH (09:23)
[2023-12-01 12:15] LABS: Glucose,Whole Blood 242 mg/dL (70-110)
--- NOTE | 2023-12-01 12:17 | P.PN ---
Subjective Progress Note Date: 12/01/23 CHIEF COMPLAINT: Sacral decubitus ulcer HISTORY OF PRESENT ILLNESS: Patient is postop day #3 status post diverting loop sigmoid colostomy for sacral decubitus ulcer. Patient has minimal liquidy light brownish output from ostomy. No stool. Does complain of pain in his buttocks. Denies any nausea or vomiting. PHYSICAL EXAM: VITAL SIGNS: Reviewed. GENERAL: no acute distress. ABDOMEN: Soft. Nondistended. Nontender. Ostomy with brownish liquid, no stool NEUROLOGIC: Alert and oriented. Cranial nerves II through XII grossly intact. ASSESSMENT: 1. Sacral decubitus ulcer status post diverting loop sigmoid colostomy PLAN: -Continue regular diet -Continue to monitor ostomy output -Continue local wound care for decubitus ulcer Physician Geriatrician note has been reviewed by physician. Signing provider agrees with the documented findings, assessment, and plan of care. Objective - Vital Signs Vital signs: Vital Signs Temp 96.9 F L 12/01/23 06:57 Pulse 89 12/01/23 06:57 Resp 16 12/01/23 06:57 BP 159/65 12/01/23 06:57 Pulse Ox 98 12/01/23 06:57 FiO2 Intake & Output 11/30/23 12/01/23 12/01/23 18:59 06:59 18:59 Intake Total 1200 Output Total 850 1400 Balance 350 -1400 Intake: Oral 1200 Output: Urine 850 1400 Other: Voiding Method Indwelling Catheter Indwelling Catheter Indwelling Catheter - Labs CBC & Chem 7: 12/01/23 03:00 12/01/23 03:00 Labs: Abnormal Lab Results - Last 24 Hours (Table) 11/30/23 11/30/23 12/01/23 Range/Units 17:16 19:57 03:00 RBC 3.12 L (4.30-5.90) m/uL Hgb 8.1 L (13.0-17.5) gm/dL Hct 26.1 L (39.0-53.0) % RDW 16.8 H (11.5-15.5) % Chloride (98-107) mmol/L Carbon Dioxide (22-30) mmol/L BUN (9-20) mg/dL Creatinine (0.66-1.25) mg/dL POC Glucose (mg/dL) 227 H 222 H (70-110) mg/dL Calcium (8.4-10.2) mg/dL 12/01/23 Range/Units 03:00 RBC (4.30-5.90) m/uL Hgb (13.0-17.5) gm/dL Hct (39.0-53.0) % RDW (11.5-15.5) % Chloride 116 H (98-107) mmol/L Carbon Dioxide 20 L (22-30) mmol/L BUN 6 L (9-20) mg/dL Creatinine 0.54 L (0.66-1.25) mg/dL POC Glucose (mg/dL) (70-110) mg/dL Calcium 7.6 L (8.4-10.2) mg/dL
--- NOTE | 2023-12-01 13:21 | P.PN ---
Subjective Progress Note Date: 12/01/23 Principal diagnosis: Reason for follow-up is infected sacral ulcer and diarrhea Patient is a 73-year-old male with a past medical history significant for diabetes mellitus hypertension hyperlipidemia osteoarthritis history of diabetic foot infection requiring bilateral [id number] amputation recent admission to the hospital treated for pneumonia UTI and also have a sacral pressure ulcer that was debrided, patient brought back to the hospital concerning for worsening wound and unable to be taken care of at home, Patient is status post diverting colostomy completed on 11/27/2023 On today's evaluation that is 12/01/2023, Patient is afebrile this morning patient denies having any chest pain shortness of breath or cough, the patient is breathing comfortably on room air, patient denies any abdominal pain, nausea no vomiting pain to the sacral area is currently controlled. Patient white count 6.1, urine creatinine 0.54 Objective - Vital Signs Vital signs: Vital Signs Temp 96.9 F L 12/01/23 06:57 Pulse 89 12/01/23 06:57 Resp 16 12/01/23 06:57 BP 159/65 12/01/23 06:57 Pulse Ox 98 12/01/23 06:57 FiO2 Intake & Output 11/30/23 12/01/23 12/01/23 18:59 06:59 18:59 Intake Total 1200 Output Total 850 1400 Balance 350 -1400 Intake: Oral 1200 Output: Urine 850 1400 Other: Voiding Method Indwelling Catheter Indwelling Catheter - Exam GENERAL DESCRIPTION: An elderly male lying in bed in no distress RESPIRATORY SYSTEM: Unlabored breathing , decreased breath sounds at bases HEART: S1 S2 regular rate and rhythm , ABDOMEN: Soft , no tenderness EXTREMITIES: Bilateral AKA stumps are currently healed - Labs CBC & Chem 7: 12/01/23 03:00 12/01/23 03:00 Labs: Abnormal Lab Results - Last 24 Hours (Table) 11/30/23 11/30/23 11/30/23 Range/Units 12:11 17:16 19:57 RBC (4.30-5.90) m/uL Hgb (13.0-17.5) gm/dL Hct (39.0-53.0) % RDW (11.5-15.5) % Chloride (98-107) mmol/L Carbon Dioxide (22-30) mmol/L BUN (9-20) mg/dL Creatinine (0.66-1.25) mg/dL POC Glucose (mg/dL) 205 H 227 H 222 H (70-110) mg/dL Calcium (8.4-10.2) mg/dL 12/01/23 12/01/23 Range/Units 03:00 03:00 RBC 3.12 L (4.30-5.90) m/uL Hgb 8.1 L (13.0-17.5) gm/dL Hct 26.1 L (39.0-53.0) % RDW 16.8 H (11.5-15.5) % Chloride 116 H (98-107) mmol/L Carbon Dioxide 20 L (22-30) mmol/L BUN 6 L (9-20) mg/dL Creatinine 0.54 L (0.66-1.25) mg/dL POC Glucose (mg/dL) (70-110) mg/dL Calcium 7.6 L (8.4-10.2) mg/dL Assessment and Plan (1) Sacral decubitus ulcer Current Visit: Yes Status: Acute Code(s): L89.159 - PRESSURE ULCER OF SACRAL REGION, UNSPECIFIED STAGE SNOMED Code(s): 182950070 (2) Diarrhea Current Visit: Yes Status: Acute Code(s): R19.7 - DIARRHEA, UNSPECIFIED SNOMED Code(s): 67509772 Plan: 1patient presented to the hospital with worsening sacral wound which was recently debrided by surgical team there were no culture done currently wound base with minimal slough tissue culture have been obtained to guide further labile therapy consult for possible mild wound infection, keeping in mind close proximity to the anal canal and stool contamination will need to cover for the enteric gram-negative both aerobes and anaerobes. 2patient is status post diverting colostomy local culture growing Bacteroides and VRE sensitive to daptomycin 3plan is for midline continue with Rocephin Flagyl and daptomycin on discharge x 10 days to finish a total of 2-week course of therapy Currently waiting for placement Dictation was produced using [employer] DDation software. please excuse any grammatical, word or spelling errors. Time with Patient: Less than 30
[2023-12-01] MEDS: lisinopriL 10 MG TAB PO SCH (13:41)
[2023-12-01 16:54] LABS: Glucose,Whole Blood 185 mg/dL (70-110)
[2023-12-01 20:26] LABS: Glucose,Whole Blood 155 mg/dL (70-110)
--- NOTE | 2023-12-01 22:36 | P.PN ---
Progress Note - Text Progress Note Date: 12/01/23 Chief Complaint: sacral decubitus ulcer Patient is a 73-year-old male with PMH of IDDM, hypertension, CKD stage II, chronic indwelling Davidson catheter, systolic CHF with ejection fraction of 40 to 45%, dementia, COPD with chronic hypoxemic respiratory failure not on home oxygen and bilateral AKA was brought to the ER by EMS for sacral decubitus ulcers. Patient has dementia and altered mental status and is not able to provide any reasonable history at the time of interview. History was mainly obtained from his daughter via phone call. According to his daughter, patient was doing generally well until this morning when he woke up seemingly confused and out of place. Patient was recently hospitalized for altered mentation on 11/10/2023 and was discharged after a month-long hospital course on 11/20/2023. Patient was discharged home with wound care provided by the visiting nurse. It was day one of the nurse visiting the patient for the wound care when she alerted the daughter to infectious sacral decubitus ulcers. Patient had fever and chills with poor appetite this morning. Patient did have debridement done on November [address] Alves from general surgery during the course of previous admission. Per ID Sayed patient was at high risk for second infection because of its location and probability of getting contaminated with stool and was advised to keep the area clean and of pressure. Patient was not discharged on any oral antibiotics. November 24: Laying in bed. Comfortable. Answering some question. Patient on IV Zosyn. Eating about 50%. Appears comfortable. Spoke to Dr. Lambert the surgeon and he agrees that diverting colostomy and the only option if any sacral wound has not improved. Also spoke at length with patient's daughter Gennaro on the phone. Antibiotics will frankly not help much. She will talk to her brother inter fold roll cutter and get back to us. I did also then talk about hospice. At this point they are leaning towards continued care. Total time spent today about 50 minutes with over 30 minutes of discussion. November 25: Laying in bed. Comfortable. On pured diet. Spoke to patient's daughter over the phone. She had discussed with her brother this morning has agreed to proceed for surgery. She was informed about moderate cardiovascular risk. 2D echo ordered. Cardiology consulted. Discussed with Dr. Mcknight from general surgery. Return about the patient for tomorrow. Patient is medically stable to proceed with surgery without moderate perioperative cardiovascular risk. For blood pressure controlled Cozaar has been added. I spent over 50 minutes today with over 30 minutes of discussion November 26: Saw the patient this morning. Was n.p.o. for procedure. This afternoon underwent loop colostomy by Dr. Lopez. Postprocedure clear liquid diet has been ordered. I spoke to Dr. Maya. Surgery went well. November 27: Patient remains on clear liquid per surgery. Has a fresh loop colostomy from yesterday. Comfortable. Answering questions. November 28: In bed. Comfortable. On clear liquid diet. Diet advanced to full liquid per surgery. Looking into discharge to ECF tomorrow. November 29: In bed. Answering simple questions. Regular diet. Very little output through the colostomy. Authorization for ECF has been resubmitted. Spoke to social contact worker. Eating better today. Add Metamucil discussed with ID for another week of antibiotics November 30: Patient was seen this morning. Comfortable. Had a little bit of liquid stool. Eating some. Later spoke to Dr. Maya from surgery. The rubber tubing between the 2 ostomy and the loop colostomy will be taken out in a few days. Patient could be discharged tomorrow. Active Medications Acetaminophen (Acetaminophen Tab 325 Mg Tab) 650 mg PO Q6HR PRN PRN Reason: Mild Pain or Fever > 100.5 Last Admin: 11/26/23 13:30 Dose: 650 mg Hydrocodone Bitart/Acetaminophen (Hydrocodone/Apap 5-325mg 1 Each Tab) 1 each PO Q4HR PRN PRN Reason: Pain Last Admin: 12/01/23 10:24 Dose: 1 each Hydrocodone Bitart/Acetaminophen (Hydrocodone/Apap 7.5-325mg 1 Each Tab) 1 each PO Q6HR PRN PRN Reason: Pain Last Admin: 11/30/23 12:17 Dose: 1 each Amlodipine Besylate (Amlodipine 10 Mg Tab) 10 mg PO DAILY [facility] Last Admin: 12/01/23 09:23 Dose: 10 mg Aspirin (Aspirin 81 Mg) 81 mg PO DAILY [facility] Last Admin: 12/01/23 09:23 Dose: 81 mg Dextrose/Water (Dextrose 50% Syringe 50 Ml) 25 ml IVP PER PROTOCOL PRN; Protocol PRN Reason: Hypoglycemia Dextrose/Water (Dextrose 50% Syringe 50 Ml) 50 ml IVP PER PROTOCOL PRN; Protocol PRN Reason: Hypoglycemia Enoxaparin Sodium (Enoxaparin 40 Mg/0.4 Ml Syringe) 40 mg SQ DAILY [facility] Last Admin: 11/30/23 07:51 Dose: 40 mg Famotidine (Famotidine 20 Mg Tab) 20 mg PO BID [facility] Last Admin: 12/01/23 21:15 Dose: 20 mg Gabapentin (Gabapentin 300 Mg Cap) 300 mg PO BID [facility] Last Admin: 12/01/23 21:15 Dose: 300 mg Glycopyrrolate (Glycopyrrolate 1 Mg Tab) 1 mg PO TID PRN PRN Reason: drooling Sodium Chloride (Saline 0.9%) 1,000 mls @ 10 mls/hr IV .Q24H [facility] Last Admin: 12/01/23 13:42 Dose: 10 mls/hr Daptomycin 250 mg/ Sodium (Chloride) 50 mls @ 100 mls/hr IVPB Q24H [facility]; Protocol Last Admin: 11/30/23 23:53 Dose: 100 mls/hr Ceftriaxone Sodium 2 gm/ (Sodium Chloride) 50 mls @ 100 mls/hr IVPB Q24HR [facility]; Protocol Last Admin: 12/01/23 09:21 Dose: 100 mls/hr Insulin Aspart (Insulin Aspart (Novolog) 100 Unit/Ml Vial) 0 unit SQ ACHS [facility]; Protocol Last Admin: 12/01/23 21:15 Dose: 2 unit Lisinopril (Lisinopril 10 Mg Tab) 10 mg PO BID [facility] Last Admin: 12/01/23 21:15 Dose: 10 mg Metronidazole (Metronidazole 500 Mg Tab) 500 mg PO TID [facility]; Protocol Last Admin: 12/01/23 21:15 Dose: 500 mg Naloxone HCl (Naloxone 0.4 Mg/Ml 1 Ml Vial) 0.2 mg IV Q2M PRN PRN Reason: Opioid Reversal Nystatin (Nystatin 100,000 Unit/Gm Powd 15 Gm) 1 applic TOPICAL BID [facility]; Protocol Last Admin: 12/01/23 21:16 Dose: 1 applic Ondansetron HCl (Ondansetron 4 Mg/2 Ml Vial) 4 mg IVP Q8HR PRN PRN Reason: Nausea And Vomiting Petrolatum (Zinc Oxide Paste (Z-Guard) 1 Applic) 1 applic TOPICAL BID PRN; Protocol PRN Reason: Wound Healing Spironolactone (Spironolactone 25 Mg Tab) 25 mg PO DAILY [facility] Last Admin: 12/01/23 09:23 Dose: 25 mg Tamsulosin HCl (Tamsulosin 0.4 Mg Cap.Er.24h) 0.4 mg PO DAILY [facility] Last Admin: 12/01/23 09:23 Dose: 0.4 mg Trazodone HCl (Trazodone Hcl 50 Mg Tab) 50 mg PO HS [facility] Last Admin: 12/01/23 21:15 Dose: 50 mg Valsartan (Valsartan 160 Mg Tab) 320 mg PO DAILY [facility] Last Admin: 12/01/23 09:23 Dose: 320 mg Social history: Former smoker. At home. Cared for by his daughter. Physical examination: VITAL SIGNS: 98.2, 56, 16, 143 x 64, 97% room air GENERAL: Laying in bed. Comfortable EYES: [Pupils equal. Conjunctiva pale HEENT: External appearance of nose and ears normal, oral cavity less dry mucous membrane. NECK: JVD not raised; masses not palpable. HEART: First and second heart sounds are normal; no edema. LUNGS: Respiratory rate increased; decreased breath sounds. ABDOMEN: Soft, nontender, liver spleen not palpable, no masses palpable. Davidson catheter. Loop colostomy.-With rubber tube between the 2 ostomy. Some liquid stool PSYCH: Answering questions MUSCULOSKELETAL:No Clubbing/cyanosis;muscles-grossly intact. Sacral decubitus wound NEUROLOGICAL: [Cranial nerves grossly intact; no facial asymmetry, bilateral above-knee amputation INVESTIGATIONS, reviewed in the clinical context: November 30: White count 6.1 hemoglobin 8.1 platelets 377 potassium 3.5 BUN 6 creatinine 0.54 November 28: White count 9.3 hemoglobin 8.1 platelets 363 potassium 3.2 crea tinine 0.5 November 26: White count 8.7 hemoglobin 8.3 platelets 425 November 25, 2023: White count 8.9 hemoglobin 8.7 platelets 41 potassium 4.2 BUN 11 creatinine 0.75 Assessment plan: #Sacral decubitus ulcer, unstageable last admission patient had debridement done by Dr. Alves. diverting loop colostomy-November 27, 2023 Daptomycin, Flagyl -Diverting loop colostomy created November 26 Chopped diet. Rubber tubing between the 2 ostomy to be removed in a few days. 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 Follow Accu-Cheks -Chronic left kidney atrophy -Chronic bilateral above-knee amputation -Primary osteoarthritis [place] as needed -Essential hypertension, uncontrolled Cozaar t100 mg nightly. Aldactone 12.5 daily -Chronic bladder outflow obstruction BPH, with chronic Davidson catheter Flomax -Chronic congestive heart failure from systolic dysfunction EF 40 to 45% Cozaar. Aldactone added. Telemetry. -Peripheral neuropathy -Moderate protein calorie malnutrition decreased oral intake Ensure -Full code Discussed with Dr. Maya from general surgery. Patient okay to be discharged. [place] tubing will be removed in a few days. 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 Date of last positivie culture/infection: 10/28/22 MDRO Source:: Blood Past Surgical History: Heart Catheterization Additional Past Surgical History / Comment(s): bilateral great toes amputated, 2nd toe lt foot partial amputation, multiple debridements of venous ulcers, colonoscopy, surgery as a child for undescended testicle., ABOVE THE KNEE AMPUTATION RIGHT LEG (JUNE 2017-[facility]) Past Anesthesia/Blood Transfusion Reactions: No Reported Reaction Date of Last Stent Placement:: 10/17/2022 Past Psychological History: Anxiety, Depression Smoking Status: Former smoker Past Alcohol Use History: Unable to Obtain Past Drug Use History: Unable to Obtain
[2023-12-02 07:07] LABS: Glucose,Whole Blood 120 mg/dL (70-110)
[2023-12-02 11:59] LABS: Glucose,Whole Blood 290 mg/dL (70-110)
[2023-12-02 12:21] VITALS: BP 160/71; PULSE 68; RESP 16; TEMP 97.9
--- NOTE | 2023-12-02 13:26 | P.PN ---
Subjective Progress Note Date: 12/02/23 CHIEF COMPLAINT: Sacral decubitus ulcer HISTORY OF PRESENT ILLNESS: Patient is postop day #4 status post diverting loop sigmoid colostomy for sacral decubitus ulcer. Patient is now having stool output through his ostomy. He denies any nausea or vomiting. No new complaints. Patient being discharged today PHYSICAL EXAM: VITAL SIGNS: Reviewed. GENERAL: no acute distress. ABDOMEN: Soft. Nondistended. Nontender. Ostomy with stool present NEUROLOGIC: Alert and oriented. Cranial nerves II through XII grossly intact. ASSESSMENT: 1. Sacral decubitus ulcer status post diverting loop sigmoid colostomy PLAN: -Patient is stable for discharge from surgical standpoint -Continue regular diet -Continue local wound care for decubitus ulcer Physician Diversional Therapist note has been reviewed by physician. Signing provider agrees with the documented findings, assessment, and plan of care. Objective - Vital Signs Vital signs: Vital Signs Temp 97.9 F 12/02/23 11:56 Pulse 68 12/02/23 11:56 Resp 16 12/02/23 11:56 BP 160/71 12/02/23 11:56 Pulse Ox 96 12/02/23 11:56 FiO2 Intake & Output 12/01/23 12/02/23 12/02/23 18:59 06:59 18:59 Intake Total 50 Output Total 800 701 Balance -750 -701 Weight 60.8 kg Intake: Intake, IV Titration 50 Amount cefTRIAXone 2 gm In 50 Sodium Chloride 0.9% 50 ml @ 100 mls/hr IVPB Q24HR [facility] Rx#:[id number] Output: Urine 800 700 Urine/Stool Mix 1 Other: Voiding Method Indwelling Catheter Indwelling Catheter Indwelling Catheter - Labs CBC & Chem 7: 12/01/23 03:00 12/01/23 03:00 Labs: Abnormal Lab Results - Last 24 Hours (Table) 12/01/23 12/01/23 12/02/23 Range/Units 16:52 20:24 07:06 POC Glucose (mg/dL) 185 H 155 H 120 H (70-110) mg/dL 12/02/23 Range/Units 11:58 POC Glucose (mg/dL) 290 H (70-110) mg/dL
--- NOTE | 2023-12-02 14:06 | P.DS ---
Providers Date of admission: 11/26/23 16:00 Expected date of discharge: 12/02/23 Attending physician: Gerson Banks Consults: 11/24/23 12:15 Consult Physician Routine Consulting Provider: Leandra Lambert Consult Reason/Comments: sacral ulcer Do you want consulting provider notified?: Yes Consult Physician Routine Consulting Provider: Juan Pruett Consult Reason/Comments: sacral wound Do you want consulting provider notified?: Yes 11/26/23 10:53 Consult Physician Routine Consulting Provider: Rula Grimm Consult Reason/Comments: pre-op Surgery 11/26 Do you want consulting provider notified?: Yes Primary care physician: Kei Rene MD Hospital Course: Chief Complaint: sacral decubitus ulcer Patient is a 73-year-old male with PMH of IDDM, hypertension, CKD stage II, chronic indwelling Davidson catheter, systolic CHF with ejection fraction of 40 to 45%, dementia, COPD with chronic hypoxemic respiratory failure not on home oxygen and bilateral AKA was brought to the ER by EMS for sacral decubitus ulcers. Patient has dementia and altered mental status and is not able to provide any reasonable history at the time of interview. History was mainly obtained from his daughter via phone call. According to his daughter, patient was doing generally well until this morning when he woke up seemingly confused and out of place. Patient was recently hospitalized for altered mentation on 11/10/2023 and was discharged after a month-long hospital course on 11/20/2023. Patient was discharged home with wound care provided by the visiting nurse. It was day one of the nurse visiting the patient for the wound care when she alerted the daughter to infectious sacral decubitus ulcers. Patient had fever and chills with poor appetite this morning. Patient did have debridement done on November [address] Alves from general surgery during the course of previous admission. Per ID Sayed patient was at high risk for second infection b ecause of its location and probability of getting contaminated with stool and was advised to keep the area clean and of pressure. Patient was not discharged on any oral antibiotics. November 24: Laying in bed. Comfortable. Answering some question. Patient on IV Zosyn. Eating about 50%. Appears comfortable. Spoke to Dr. Lambert the surgeon and he agrees that diverting colostomy and the only option if any sacral wound has not improved. Also spoke at length with patient's daughter Gennaro on the phone. Antibiotics will frankly not help much. She will talk to her brother early childhood associate teacher and get back to us. I did also then talk about hospice. At this point they are leaning towards continued care. Total time spent today about 50 minutes with over 30 minutes of discussion. November 25: Laying in bed. Comfortable. On pured diet. Spoke to patient's daughter over the phone. She had discussed with her brother this morning has agreed to proceed for surgery. She was informed about moderate cardiovascular risk. 2D echo ordered. Cardiology consulted. Discussed with Dr. Mcknight from general surgery. Return about the patient for tomorrow. Patient is medically stable to proceed with surgery without moderate perioperative cardiovascular risk. For blood pressure controlled Cozaar has been added. I spent over 50 minutes today with over 30 minutes of discussion November 26: Saw the patient this morning. Was n.p.o. for procedure. This afternoon underwent loop colostomy by Dr. Lopez. Postprocedure clear liquid diet has been ordered. I spoke to Dr. Maya. Surgery went well. November 27: Patient remains on clear liquid per surgery. Has a fresh loop colostomy from yesterday. Comfortable. Answering questions. November 15: In bed. Comfortable. On clear liquid diet. Diet advanced to full liquid per surgery. Looking into discharge to ECF tomorrow. November 16: In bed. Answering simple questions. Regular diet. Very little output through the colostomy. Authorization for ECF has been resubmitted. Spoke to clinical social work aide. Eating better today. Add Metamucil discussed with ID for another week of antibiotics November 30: Patient was seen this morning. Comfortable. Had a little bit of liquid stool. Eating some. Later spoke to Dr. Maya from surgery. The rubber tubing between the 2 ostomy and the loop colostomy will be taken out in a few days. Patient could be discharged tomorrow. December 01: Soft stool in the colostomy bag. Rahbar tubing joint needed to ostomy. Colostomy red rubber catheter can be removed in 2 weeks. Patient to follow-up with surgeon. Patient's daughter at the bedside. She has spoken to her brother Amilcar. They do not want any CPR and no intubation. They do not want patient's care to be compromised because of tach. I referred understanding of DNR. That all care will be provided except if the heart and lung stops. Patient had more surface breakfast today. Patient follow-up with the wound care center Dr. Haddad. Also Dr. Maya for the colostomy. Discussion and discharge planning more than 35 minutes Social history: Former smoker. At home. Cared for by his daughter. Physical examination: VITAL SIGNS: 97.9, 68, 16, 160% 1, 96% room GENERAL: Laying in bed. Comfortable EYES: [Pupils equal. Conjunctiva pale HEENT: External appearance of nose and ears normal, oral cavity less dry mucous membrane. NECK: JVD not raised; masses not palpable. HEART: First and second heart sounds are normal; no edema. LUNGS: Respiratory rate increased; decreased breath sounds. ABDOMEN: Soft, nontender, liver spleen not palpable, no masses palpable. Davidson catheter. Loop colostomy.-With rubber tube between the 2 ostomy. Soft stool- mushy PSYCH: Walking, appears cheerful MUSCULOSKELETAL:No Clubbing/cyanosis;muscles-grossly intact. Sacral decubitus wound NEUROLOGICAL: [Cranial nerves grossly intact; no facial asymmetry, bilateral above-knee amputation INVESTIGATIONS, reviewed in the clinical context: November 30: White count 6.1 hemoglobin 8.1 platelets 377 potassium 3.5 BUN 6 creatinine 0.54 November 28: White count 9.3 hemoglobin 8.1 platelets 363 potassium 3.2 creatinine 0.5 November 26: White count 8.7 hemoglobin 8.3 platelets 425 November 25, 2023: White count 8.9 hemoglobin 8.7 platelets 41 potassium 4.2 BUN 11 creatinine 0.75 Assessment plan: #Sacral decubitus ulcer, unstageable last admission patient had debridement done by Dr. Alves. diverting loop colostomy-November 27, [address] Sachin Lopez Patient received daptomycin and Flagyl for 10 more days -Diverting loop colostomy created November 26 Chopped diet. 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 Levemir-12 units nightly follow Accu-Cheks -Chronic left kidney atrophy -Chronic bilateral above-knee amputation -Primary osteoarthritis Midway as needed -Essential hypertension, uncontrolled Amlodipine lisinopril -Chronic bladder outflow obstruction BPH, with chronic Davidson catheter Flomax -Chronic congestive heart failure from systolic dysfunction EF 40 to 45% Aldactone -Peripheral neuropathy -Moderate protein calorie malnutrition decreased oral intake Ensure -DNR, as per patient's daughter Doe and she spoke to her brother Amilcar Disposition: [facility] on the [facility] 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 Date of last positivie culture/infection: 10/28/22 MDRO Source:: Blood Past Surgical History: Heart Catheterization Additional Past Surgical History / Comment(s): bilateral great toes amputated, 2nd toe lt foot partial amputation, multiple debridements of venous ulcers, colonoscopy, surgery as a child for undescended testicle., ABOVE THE KNEE AMPUTATION RIGHT LEG (JUNE 2017-[facility]) Past Anesthesia/Blood Transfusion Reactions: No Reported Reaction Date of Last Stent Placement:: 10/17/2022 Past Psychological History: Anxiety, Depression Smoking Status: Former smoker Past Alcohol Use History: Unable to Obtain Past Drug Use History: Unable to Obtain Plan - Discharge Summary Discharge Rx Participant: No New Discharge Prescriptions: New Spironolactone [Aldactone] 25 mg PO DAILY tab INSULIN ASPART (NovoLOG) [NovoLOG (formulary)] 0 unit SQ ACHS each lisinopriL [Zestril] 10 mg PO BID tab DAPTOmycin 350 mg IV DAILY #10 each cefTRIAXone [Rocephin] 2,000 mg IVP Q24HR #10 each Aspirin 81 mg PO DAILY tab Valsartan [Diovan] 320 mg PO DAILY tab metroNIDAZOLE [Flagyl] 500 mg PO TID #30 tab Continue traZODone HCL 50 mg PO HS Sennosides [Senokot] 8.6 mg PO DAILY Magnesium Citrate [Citrate of Magnesia] 296 ml PO RING Gabapentin [Neurontin] 300 mg PO BID #0 Tamsulosin [Flomax] 0.4 mg PO DAILY Famotidine [Pepcid] 20 mg PO BID amLODIPine [Norvasc] 10 mg PO DAILY #30 tab Glycopyrrolate 1 mg PO TID PRN PRN Reason: drooling Clopidogrel [Plavix] 75 mg PO DAILY Acetaminophen Tab [Tylenol] 500 mg PO Q6H PRN PRN Reason: Fever And/ Or Pain Nystatin 100,000 Unit/gm Powd [Mycostatin Powder] 1 applic TOPICAL BID Atorvastatin Calcium [Lipitor] 80 mg PO HS Zinc Oxide 20% Oint 1 applic TOPICAL BID PRN each PRN Reason: Wound Healing HYDROcodone/APAP 7.5-325MG [Midway 7.5-325] 1 tab PO Q6HR PRN #12 tab PRN Reason: Pain Changed Insulin Glargine,Hum.rec.anlog [Lantus Solostar Pen] 12 units SQ HS #0 Discontinued Sodium Bicarbonate Tab 650 mg PO BID #60 tab No Action Insulin Lispro [humaLOG Kwikpen] 2 - 20 unit SQ ACHS Discharge Medication List traZODone HCL 50 mg PO HS 11/09/17 [History] Famotidine [Pepcid] 20 mg PO BID 09/29/22 [History] Tamsulosin [Flomax] 0.4 mg PO DAILY 09/29/22 [History] amLODIPine [Norvasc] 10 mg PO DAILY #30 tab 07/03/23 [Rx] Clopidogrel [Plavix] 75 mg PO DAILY 10/02/23 [History] Glycopyrrolate 1 mg PO TID PRN 10/02/23 [History] Sennosides [Senokot] 8.6 mg PO DAILY 10/02/23 [History] Acetaminophen Tab [Tylenol] 500 mg PO Q6H PRN 11/10/23 [History] Atorvastatin Calcium [Lipitor] 80 mg PO HS 11/10/23 [History] Insulin Lispro [humaLOG Kwikpen] 2 - 20 unit SQ ACHS 11/10/23 [History] Magnesium Citrate [Citrate of Magnesia] 296 ml PO RING 11/10/23 [History] Nystatin 100,000 Unit/gm Powd [Mycostatin Powder] 1 applic TOPICAL BID 11/10/23 [History] Zinc Oxide 20% Oint 1 applic TOPICAL BID PRN each 11/17/23 [Rx] Aspirin 81 mg PO DAILY tab 12/02/23 [Rx] DAPTOmycin 350 mg IV DAILY #10 each 12/02/23 [Rx] Gabapentin [Neurontin] 300 mg PO BID #0 12/02/23 [Rx] HYDROcodone/APAP 7.5-325MG [Midway 7.5-325] 1 tab PO Q6HR PRN #12 tab 12/02/23 [Rx] INSULIN ASPART (NovoLOG) [NovoLOG (formulary)] 0 unit SQ ACHS each 12/02/23 [Rx] Insulin Glargine,Hum.rec.anlog [Lantus Solostar Pen] 12 units SQ HS #0 12/02/23 [Rx] Spironolactone [Aldactone] 25 mg PO DAILY tab 12/02/23 [Rx] Valsartan [Diovan] 320 mg PO DAILY tab 12/02/23 [Rx] cefTRIAXone [Rocephin] 2,000 mg IVP Q24HR #10 each 12/02/23 [Rx] lisinopriL [Zestril] 10 mg PO BID tab 12/02/23 [Rx] metroNIDAZOLE [Flagyl] 500 mg PO TID #30 tab 12/02/23 [Rx] Follow up Appointment(s)/Referral(s): Kei Rene MD [Primary Care Provider] - 1-2 days Asad Haddad MD [STAFF PHYSICIAN] - 1 Week Patient Instructions/Handouts: Colostomy Care (DC), Pressure Injury (DC) Activity/Diet/Wound Care/Special Instructions: Colostomy: [place] 1 piece cut to fit #[id number] Change every 3 to 5 days and with any leaking; empty appliance when no more than half full Last Changed:12/01/23 Colostomy red rubber catheter can be removed in two weeks Follow up with surgeon in two weeks wound center -dr haddad antibiotics per dr pruett
[2023-12-02 16:59] LABS: Glucose,Whole Blood 269 mg/dL (70-110)
--- NOTE | 2023-12-04 08:36 | P.PN ---
Subjective Progress Note Date: 12/02/23 Principal diagnosis: Reason for follow-up is infected sacral ulcer and diarrhea Patient is a 73-year-old male with a past medical history significant for diabetes mellitus hypertension hyperlipidemia osteoarthritis history of diabetic foot infection requiring bilateral [id number] amputation recent admission to the hospital treated for pneumonia UTI and also have a sacral pressure ulcer that was debrided, patient brought back to the hospital concerning for worsening wound and unable to be taken care of at home, Patient is status post diverting colostomy completed on 11/27/2023 On today's evaluation that is 12/02/2023,the patient denies any fever or any chills, patient is breathing comfortably on room air, the patient denies chest pain shortness of breath and no significant cough, patient denies abdominal pain, no nausea vomiting did have one point in his colostomy. No new lab has been obtained today Objective - Vital Signs Vital signs: Vital Signs Temp 99.8 F H 12/02/23 07:05 Pulse 64 12/02/23 07:05 Resp 18 12/02/23 07:05 BP 167/50 12/02/23 07:05 Pulse Ox 97 12/02/23 07:05 FiO2 Intake & Output 12/01/23 12/02/23 12/02/23 18:59 06:59 18:59 Intake Total 50 Output Total 800 701 Balance -750 -701 Weight 60.8 kg Intake: Intake, IV Titration 50 Amount cefTRIAXone 2 gm In 50 Sodium Chloride 0.9% 50 ml @ 100 mls/hr IVPB Q24HR [facility] Rx#:[id number] Output: Urine 800 700 Urine/Stool Mix 1 Other: Voiding Method Indwelling Catheter Indwelling Catheter - Exam GENERAL DESCRIPTION: An elderly male lying in bed in no distress RESPIRATORY SYSTEM: Unlabored breathing , decreased breath sounds at bases HEART: S1 S2 regular rate and rhythm , ABDOMEN: Soft , no tenderness EXTREMITIES: Bilateral AKA stumps are currently healed - Labs CBC & Chem 7: 12/01/23 03:00 12/01/23 03:00 Labs: Abnormal Lab Results - Last 24 Hours (Table) 12/01/23 12/01/23 12/01/23 Range/Units 12:14 16:52 20:24 POC Glucose (mg/dL) 242 H 185 H 155 H (70-110) mg/dL 12/02/23 Range/Units 07:06 POC Glucose (mg/dL) 120 H (70-110) mg/dL Assessment and Plan (1) Sacral decubitus ulcer Status: Acute Code(s): L89.159 - PRESSURE ULCER OF SACRAL REGION, UNSPECIFIED STAGE SNOMED Code(s): 337939866 (2) Diarrhea Status: Acute Code(s): R19.7 - DIARRHEA, UNSPECIFIED SNOMED Code(s): 16491328 Plan: 1patient presented to the hospital with worsening sacral wound which was recently debrided by surgical team there were no culture done currently wound base with minimal slough tissue culture have been obtained to guide further l abile therapy consult for possible mild wound infection, keeping in mind close proximity to the anal canal and stool contamination will need to cover for the enteric gram-negative both aerobes and anaerobes. 2patient is status post diverting colostomy local culture growing Bacteroides and VRE sensitive to daptomycin 3patient to continue with Rocephin Flagyl and daptomycin on discharge x 10 days to finish a total of 2-week course of therapy and close outpatient follow-up discussed with admitting physician Dictation was produced using [employer] dictation software. please excuse any grammatical, word or spelling errors. Time with Patient: Less than 30
== END 2023-12-02 19:01 | DRG 981 ==
LOC: EC 08:56 → 5NMEDONC 12:17 → OBSVTOIN 11-26 16:00
PROVIDERS: ADMIT Hospitalist; ATTEND Hospitalist
PROC: 0D1N0Z4 Bypass Sigmoid Colon to Cutaneous, Open Approach (ICD-10-PCS; principal; 2023-11-27 12:30)
DX: L89.150 Pressure ulcer of sacral region, unstageable (principal); G93.41 Metabolic encephalopathy; F03.93 Unspecified dementia, unspecified severity, with mood disturbance; F03.94 Unspecified dementia, unspecified severity, with anxiety; I13.0 Hypertensive heart and chronic kidney disease with heart failure and stage 1 through stage 4 chronic kidney disease, or unspecified chronic kidney disease; I50.22 Chronic systolic (congestive) heart failure; J98.11 Atelectasis; J94.8 Other specified pleural conditions; J96.11 Chronic respiratory failure with hypoxia; E11.22 Type 2 diabetes mellitus with diabetic chronic kidney disease; D64.9 Anemia, unspecified; E11.51 Type 2 diabetes mellitus with diabetic peripheral angiopathy without gangrene; E61.1 Iron deficiency; E78.5 Hyperlipidemia, unspecified; I48.0 Paroxysmal atrial fibrillation; M19.042 Primary osteoarthritis, left hand; Z89.612 Acquired absence of left leg above knee; B35.9 Dermatophytosis, unspecified; D75.839 Thrombocytosis, unspecified; F32.A Depression, unspecified; I25.10 Atherosclerotic heart disease of native coronary artery without angina pectoris; I44.7 Left bundle-branch block, unspecified; I87.8 Other specified disorders of veins; J44.9 Chronic obstructive pulmonary disease, unspecified; M19.041 Primary osteoarthritis, right hand; N18.2 Chronic kidney disease, stage 2 (mild); R32 Unspecified urinary incontinence; Z66 Do not resuscitate; Z79.02 Long term (current) use of antithrombotics/antiplatelets; Z79.4 Long term (current) use of insulin; Z79.82 Long term (current) use of aspirin; Z79.899 Other long term (current) drug therapy; Z87.891 Personal history of nicotine dependence; Z89.611 Acquired absence of right leg above knee; Z95.5 Presence of coronary angioplasty implant and graft
CPT/HCPCS: 36410; 36415; 71045; 76937; 80048; 80053; 80202; 82565; 83605; 83735; 85025; 85610; 85730; 86140; 86850; 86900; 86901; 87040; 87070; 87075; 87077; 87186; 87205; 93005; 93306; 96365; 96368; 96372; 96374; 96375; 99285

== ENCOUNTER 2023-12-29 10:03 | Inpatient (IN) | payer MEDICARE ==
[2023-12-29] MEDS ORDERED: VANCOMYCIN IV PER PHARMACY 1 EACH MISC MISCELLANE PRN (10:19)
[2023-12-29] MEDS: SODIUM CHLORIDE 0.9% 1,000 ML IV STA ×2 (10:50)
[2023-12-29] MEDS: ONDANSETRON 4 MG/2 ML VIAL IVP STA (10:51)
[2023-12-29] MEDS: MORPHINE SULFATE 4 MG/ML SYRINGE IVP STA (10:53)
--- NOTE | 2023-12-29 11:01 | ED ---
General Adult HPI - General Chief complaint: Wound/Laceration Stated complaint: Fever Time Seen by Provider: 12/29/23 10:10 Source: patient, RN notes reviewed, old records reviewed Mode of arrival: EMS Limitations: no limitations - History of Present Illness Initial comments: Patient is a 73-year-old male with history of bilateral lower extremity amputation, dementia, diabetes, hypertension with a history of chronic sacral ulcer who presents emergency department complaining of worsening appearance of his sacral ulcer. Is black with some purulent discharge. Sent by home nurse for evaluation for possible infection. Patient states that it hurts. Denies any other acute complaints at this time. Denies chest pain, shortness of breath, abdominal pain. Denies fevers or chills. Presents for further evaluation at this time. - Related Data Home Medications Medication Instructions Recorded Confirmed traZODone HCL 50 mg PO HS 11/09/17 11/24/23 Famotidine [Pepcid] 20 mg PO BID 09/29/22 11/24/23 Tamsulosin [Flomax] 0.4 mg PO DAILY 09/29/22 11/24/23 Clopidogrel [Plavix] 75 mg PO DAILY 10/02/23 11/24/23 Glycopyrrolate 1 mg PO TID PRN 10/02/23 11/24/23 Sennosides [Senokot] 8.6 mg PO BID 10/02/23 11/24/23 Atorvastatin Calcium [Lipitor] 80 mg PO HS 11/10/23 11/24/23 Insulin Lispro [humaLOG Kwikpen] See Protocol SQ ACHS 11/10/23 11/24/23 Nystatin 100,000 Unit/gm Powd 1 applic TOPICAL BID 11/10/23 11/24/23 [Mycostatin Powder] Acetaminophen Tab [Tylenol] 650 mg PO Q6H PRN MDD 4000mg 12/29/23 Dextrose Gel [Glutose 15 Gel] 1 unit PO BID PRN 12/29/23 Escitalopram Oxalate [Lexapro] 20 mg PO DAILY 12/29/23 Ferrous Sulfate [Feosol] 325 mg PO DAILY 12/29/23 Gabapentin [Neurontin] 300 mg PO BID PRN 12/29/23 Insulin Glargine,Hum.rec.anlog 20 units SQ HS 12/29/23 [Lantus Solostar Pen] LORazepam [Ativan] 0.5 mg PO BID PRN 12/29/23 Lactose-Reduced Food [Ensure Plus 237 ml PO DAILY 12/29/23 High Protein] Metoprolol Tartrate [Lopressor] 12.5 mg PO BID 12/29/23 Nitroglycerin Sl Tabs [Nitrostat] 0.4 mg SUBLINGUAL Q5M PRN 12/29/23 guaiFENesin-DM 100-10MG/5ML 5 ml PO Q6H PRN 12/29/23 [Robitussin DM] hydrALAZINE HCL [Apresoline] 75 mg PO TID 12/29/23 hydroCHLOROthiazide 25 mg PO DAILY 12/29/23 Previous Rx's Medication Instructions Recorded amLODIPine [Norvasc] 10 mg PO DAILY #30 tab 07/03/23 HYDROcodone/APAP 7.5-325MG [[place] 1 tab PO Q6HR PRN #12 tab 12/02/23 7.5-325] Spironolactone [Aldactone] 25 mg PO DAILY tab 12/02/23 Valsartan [Diovan] 320 mg PO DAILY tab 12/02/23 Allergies Allergy/AdvReac Type Severity Reaction Status Date / Time No Known Allergies Allergy Verified 12/29/23 13:51 Review of Systems ROS Statement: Those systems with pertinent positive or pertinent negative responses have been documented in the HPI. Review of Systems: CONST: Denies fever EYES: Denies blurry vision ENT: Denies nasal congestion C/V: Denies Chest pain RESP: Denies shortness of breath GI: Denies abdominal pain : Denies dysuria SKIN: Endorses painful sacral wound MSK: Denies joint pain. NEURO: Denies headache ROS Other: All systems not noted in ROS Statement are negative. 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 Date of last positivie culture/infection: 10/28/22 MDRO Source:: Blood Past Surgical History: Heart Catheterization Additional Past Surgical History / Comment(s): bilateral great toes amputated, 2nd toe lt foot partial amputation, multiple debridements of venous ulcers, colonoscopy, surgery as a child for undescended testicle., ABOVE THE KNEE AMPUTATION RIGHT LEG (JUNE 2017-[facility]) Past Anesthesia/Blood Transfusion Reactions: No Reported Reaction Date of Last Stent Placement:: 10/17/2022 Past Psychological History: Anxiety, Depression Smoking Status: Former smoker Past Alcohol Use History: Unable to Obtain Past Drug Use History: Unable to Obtain - Past Family History Father Family Medical History: Cancer Additional Family Medical History / Comment(s): Father from brain cancer Mother Family Medical History: Eye Disorder Additional Family Medical History / Comment(s): Glaucoma. Mother is . General Exam - General Exam Comments Initial Comments: General: Appears in mild distress secondary to pain. HEAD: Normal with no signs of head trauma. EYES: PERRLA, EOMI, conjunctiva normal, no discharge. ENT: Hearing grossly intact, normal oropharynx. RESPIRATORY: Clear breath sounds bilaterally. No wheezes, rales, or rhonchi. C/V: Regular rate and rhythm. S1 and S2 auscultated, peripheral pulses 2+ and intact throughout ABD: Abd is soft, nontender, nondistended EXT: No obvious deformity. Bilateral lower extremity amputee SKIN: Sacral ulcer has black skin surrounding it with purulent discharge. Unknown how deep. Appears to be stage II-III. Approximately 6 to 8 cm in diameter. NEURO: Alert and oriented x 3. Limitations: no limitations Course Vital Signs 12/29/23 12/29/23 12/29/23 10:06 10:30 11:30 Temperature 98.7 F Pulse Rate 96 Respiratory 18 24 Rate Blood Pressure 100/89 97/52 137/56 O2 Sat by Pulse 99 Oximetry 12/29/23 13:50 Temperature 98.2 F Pulse Rate 72 Respiratory 18 Rate Blood Pressure 111/78 O2 Sat by Pulse 100 Oximetry Medical Decision Making - Medical Decision Making Was pt. sent in by a medical professional or institution (, PA, [employer], urgent care, hospital, or [place] health care facility...) When possible be specific @ -No Did you speak to anyone other than the patient for history (EMS, parent, family, police, friend...)? What history was obtained from this source @ -No Did you review nursing and triage notes (agree or disagree)? Why? @ -I reviewed and agree with nursing and triage notes Were old charts reviewed (outside hosp., previous admission, EMS record, old EKG, old radiological studies, urgent care reports/EKG's, [place] health care facility records)? Report findings @ -Old charts reviewed which showed patient was just here recently for sepsis and a UTI. Differential Diagnosis (chest pain, altered mental status, abdominal pain women, abdominal pain men, vaginal bleeding, weakness, fever, dyspnea, syncope, headache, dizziness, GI bleed, back pain, seizure, CVA, palpatations, mental health, musculoskeletal)? @ -Infected decubitus ulcer, cellulitis, sepsis, abscess. This list is not all inclusive. EKG interpreted by me (3pts min.). @ -None done X-rays interpreted by me (1pt min.). @ -None done CT interpreted by me (1pt min.). @ -CT abdomen pelvis reveals decubitus ulcer with no evidence of osteomyelitis patient has the chronic hydropneumothorax that has been present for months. U/S interpreted by me (1pt. min.). @ -None done What testing was considered but not performed or refused? (CT, X-rays, U/S, labs)? Why? @ -None What meds were considered but not given or refused? Why? @ -None Did you discuss the management of the patient with other professionals (professionals i.e. , PA, [employer], lab, RT, psych nurse, renal social worker, nursing secretary, teacher, grants officer, case supervisor)? Give summary @ - I spoke with Dr. Banks who accepted the admission. Spoke with Mathieu aTte under Dr. Maya who states he can evaluate the patient for his decubitus ulcer. Was smoking cessation discussed for >3mins.? @ -No Was critical care preformed (if so, how long)? @ -No Were there social determinants of health that impacted care today? How? (Homelessness, low income, unemployed, alcoholism, drug addiction, transportation, low edu. Level, literacy, decrease access to med. care, senior living, rehab)? @ -No Was there de-escalation of care discussed even if they declined (Discuss DNR or withdrawal of care, Hospice)? DNR status @ -No What co-morbidities impacted this encounter? (DM, HTN, Smoking, COPD, CAD, Cancer, CVA, ARF, Chemo, Hep., AIDS, mental health diagnosis, sleep apnea, morbid obesity)? @ -None Was patient admitted / discharged? Hospital course, mention meds given and route, prescriptions, significant lab abnormalities, going to OR and other pertinent info. @ -Patient presents over concern for infected sacral wound. We will obtain infectious labs, as well as CT imaging. Blood cultures and wound cultures obtained and sent. Patient empirically started on vancomycin and given IV fluids. Patient also given IV Zofran and analgesia medications. Patient was in agreement this plan. Imaging unremarkable for any obvious acute process. Patient's labs remarkable for lactic acid of 3.3, as well as a UTI and fresh urine and a new Davidson bag. No leukocytosis. Patient was started on IV fluids as well as broad-spectrum antibiotics. Updated patient as well as family. He is feeling improved. Patient will be admitted at this time. Consult placed to surgery as well as infectious disease. They were in agreement this plan. I spoke with Dr. Banks who accepted the admission. Undiagnosed new problem with uncertain prognosis? @ -No Drug Therapy requiring intensive monitoring for toxicity (Heparin, Nitro, Insulin, Cardizem)? @ -No Were any procedures done? @ -No Diagnosis/symptom? @ -Sacral decubitus wound with concern for infection and need for debridement, UTI Acute, or Chronic, or Acute on Chronic? @ -Acute Uncomplicated (without systemic symptoms) or Complicated (systemic symptoms)? @ -Complicated Side effects of treatment? @ -None Exacerbation, Progression, or Severe Exacerbation] @ -No Poses a threat to life or bodily function? @ -Yes - Lab Data Result diagrams: 12/29/23 10:12/29/23 10:24 Lab Results 12/29/23 12/29/23 12/29/23 Range/Units 10:24 10: 10:24 WBC 10.3 (3.8-10.6) k/uL RBC 3.80 L (4.30-5.90) m/uL Hgb 10.2 L (13.0-17.5) gm/dL Hct 33.4 L (39.0-53.0) % MCV 88.0 (80.0-100.0) fL MCH 26.8 (25.0-35.0) pg MCHC 30.5 L (31.0-37.0) g/dL RDW 17.4 H (11.5-15.5) % Plt Count 475 H (150-450) k/uL MPV 8.7 Neutrophils % 69 % Lymphocytes % 21 % Monocytes % 5 % Eosinophils % 2 % Basophils % 0 % Neutrophils # 7.1 (1.3-7.7) k/uL Lymphocytes # 2.2 (1.0-4.8) k/uL Monocytes # 0.5 (0-1.0) k/uL Eosinophils # 0.2 (0-0.7) k/uL Basophils # 0.0 (0-0.2) k/uL Hypochromasia Marked Anisocytosis Slight PT 11.2 (10.0-12.5) sec INR 1.0 (<1.2) APTT 23.9 (22.0-30.0) sec Sodium (137-145) mmol/L Potassium (3.5-5.1) mmol/L Chloride (98-107) mmol/L Carbon Dioxide (22-30) mmol/L Anion Gap mmol/L BUN (9-20) mg/dL Creatinine (0.66-1.25) mg/dL Est GFR (CKD-EPI)AfAm (>60 ml/min/1.73 sqM) Est GFR (CKD-EPI)NonAf (>60 ml/min/1.73 sqM) Glucose (74-99) mg/dL Lactic Ac Sepsis Rflx Plasma Lactic Acid Ata (0.7-2.0) mmol/L Calcium (8.4-10.2) mg/dL Total Bilirubin (0.2-1.3) mg/dL AST (17-59) U/L ALT (4-49) U/L Alkaline Phosphatase (38-126) U/L Total Protein (6.3-8.2) g/dL Albumin (3.5-5.0) g/dL Urine Color Yellow Urine Appearance Turbid (Clear) Urine pH 5.5 (5.0-8.0) Ur Specific [employer] 1.024 (1.001-1.035) Urine Protein 2+ H (Negative) Urine Glucose (UA) Negative (Negative) Urine Ketones Negative (Negative) Urine Blood Moderate H (Negative) Urine Nitrite Negative (Negative) Urine Bilirubin Negative (Negative) Urine Urobilinogen <2.0 (<2.0) mg/dL Ur Leukocyte Esterase Large H (Negative) Urine RBC 44 H (0-5) /hpf Urine WBC >182 H (0-5) /hpf Ur Squamous Epith Cells 1 (0-4) /hpf Urine Bacteria Many H (None) /hpf Hyaline Casts 74 H (0-2) /lpf Urine Mucus Many H (None) /hpf 12/29/23 12/29/23 12/29/23 Range/Units 10: 10: 11:21 WBC (3.8-10.6) k/uL RBC (4.30-5.90) m/uL Hgb (13.0-17.5) gm/dL Hct (39.0-53.0) % MCV (80.0-100.0) fL MCH (25.0-35.0) pg MCHC (31.0-37.0) g/dL RDW (11.5-15.5) % Plt Count (150-450) k/uL MPV Neutrophils % % Lymphocytes % % Monocytes % % Eosinophils % % Basophils % % Neutrophils # (1.3-7.7) k/uL Lymphocytes # (1.0-4.8) k/uL Monocytes # (0-1.0) k/uL Eosinophils # (0-0.7) k/uL Basophils # (0-0.2) k/uL Hypochromasia Anisocytosis PT (10.0-12.5) sec INR (<1.2) APTT (22.0-30.0) sec Sodium 137 (137-145) mmol/L Potassium 4.8 (3.5-5.1) mmol/L Chloride 109 H (98-107) mmol/L Carbon Dioxide 17 L (22-30) mmol/L Anion Gap 11 mmol/L BUN 20 (9-20) mg/dL Creatinine 0.86 (0.66-1.25) mg/dL Est GFR (CKD-EPI)AfAm >90 (>60 ml/min/1.73 sqM) Est GFR (CKD-EPI)NonAf 87 (>60 ml/min/1.73 sqM) Glucose 142 H (74-99) mg/dL Lactic Ac Sepsis Rflx Y Plasma Lactic Acid Ata 3.3 H* (0.7-2.0) mmol/L Calcium 9.0 (8.4-10.2) mg/dL Total Bilirubin 0.8 (0.2-1.3) mg/dL AST 29 (17-59) U/L ALT 16 (4-49) U/L Alkaline Phosphatase 102 (38-126) U/L Total Protein 6.7 (6.3-8.2) g/dL Albumin 3.2 L (3.5-5.0) g/dL Urine Color Urine Appearance (Clear) Urine pH (5.0-8.0) Ur Specific [employer] [employer] (1.001-1.035) Urine Protein (Negative) Urine Glucose (UA) (Negative) Urine Ketones (Negative) Urine Blood (Negative) Urine Nitrite (Negative) Urine Bilirubin (Negative) Urine Urobilinogen (<2.0) mg/dL Ur Leukocyte Esterase (Negative) Urine RBC (0-5) /hpf Urine WBC (0-5) /hpf Ur Squamous Epith Cells (0-4) /hpf Urine Bacteria (None) /hpf Hyaline Casts (0-2) /lpf Urine Mucus (None) /hpf Disposition Clinical Impression: Ulcer of sacral region, Cellulitis, UTI (urinary tract infection) Disposition: ADMITTED IP TO THIS HOSP Condition: Stable Time of Disposition: 13:21
[2023-12-29 11:07] LABS: Anisocytosis Slight; Basophils % (A) 0 %; Eosinophils # (A) 0.2 k/uL (0-0.7); Eosinophils % (A) 2 %; HCT 33.4 % (39.0-53.0); HGB 10.2 gm/dL (13.0-17.5); Hypochromasia Marked; Lymphocytes # (A) 2.2 k/uL (1.0-4.8); Lymphocytes % (A) 21 %; MCH 26.8 pg (25.0-35.0); MCHC 30.5 g/dL (31.0-37.0); Mean Platelet Volume 8.7; Monocytes # (A) 0.5 k/uL (0-1.0); Monocytes % (A) 5 %; Neutrophils # (A) 7.1 k/uL (1.3-7.7); Neutrophils % (A) 69 %; Platelet Count 475 k/uL (150-450); RDW 17.4 % (11.5-15.5); WBC 10.3 k/uL (3.8-10.6)
[2023-12-29 11:19] LABS: ALT 16 U/L (4-49); African American GFR (CKD) >90 (>60 ml/min/1.73 sqM); Albumin 3.2 g/dL (3.5-5.0); Anion Gap 11 mmol/L; Blood Urea Nitrogen 20 mg/dL (9-20); Carbon Dioxide 17 mmol/L (22-30); Chloride 109 mmol/L (98-107); Glucose 142 mg/dL (74-99); Non-African American GFR(CKD) 87 (>60 ml/min/1.73 sqM); Sodium 137 mmol/L (137-145); Total Bilirubin 0.8 mg/dL (0.2-1.3); Total Protein 6.7 g/dL (6.3-8.2)
[2023-12-29 11:22] LABS: AST 29 U/L (17-59); Alkaline Phosphatase 102 U/L (38-126); Potassium 4.8 mmol/L (3.5-5.1)
[2023-12-29 11:23] LABS: Partial Thromboplastin Time 23.9 sec (22.0-30.0); Prothrombin Time 11.2 sec (10.0-12.5)
[2023-12-29] MEDS: VANCOMYCIN 1,000 MG in SODIUM CHLORIDE 0.9% 250 ML IVPB STA (11:45)
[2023-12-29 12:21] LABS: Appearance,Urine Turbid (Clear); Bacteria,Urine Many /hpf; Bilirubin,Urine Negative (Negative); Blood,Urine Moderate (Negative); Color,Urine Yellow; Glucose,Urine (UA) Negative (Negative); Hyaline Casts,Urine 74 /lpf (0-2); Ketones,Urine Negative (Negative); Leukocyte Esterase,Urine Large (Negative); Mucus,Urine Many /hpf; Nitrite,Urine Negative (Negative); PH, Urine 5.5 (5.0-8.0); Protein,Urine 2+ (Negative); RBC,Urine 44 /hpf (0-5); Specific Gravity,Urine 1.024 (1.001-1.035); Squamous Epithelial Cell,Urine 1 /hpf (0-4); Urobilinogen,Urine <2.0 mg/dL (<2.0); WBC,Urine >182 /hpf (0-5)
--- NOTE | 2023-12-29 12:34 | CT ---
EXAMINATION TYPE: CT abdomen pelvis w con CT DLP: 1148.4 mGycm, Automated exposure control for dose reduction was used. DATE OF EXAM: 12/29/2023 12:20 PM COMPARISON: CT chest abdomen pelvis 11/10/2023 CLINICAL INDICATION:Male, 73 years old with history of sacral ulcer; Sacral ulcer TECHNIQUE: Standard CT of the abdomen and pelvis following the administration of 100 cc of Isovue 3 00 IV contrast material. Coronal and sagittal reformats were performed. FINDINGS: LOWER CHEST: Partial visualization of least moderate size right hydropneumothorax. Increased fluid co mponent from prior examination with decreased air component. Partial atelectasis of the right lower a nd middle lobes. Stable left lower lobe 8 mm pulmonary nodule (series 204, image 19). Partial visuali zation of left gynecomastia. At least moderate coronary artery calcifications. Trace anterior pericar dial effusion. ABDOMEN LIVER: Unremarkable GALLBLADDER AND BILE DUCTS: Layering increased densities within the lumen consistent with gallstones are present. PANCREAS: Mild fatty atrophy. SPLEEN: Unremarkable. ADRENAL GLANDS: Unremarkable. KIDNEYS AND URETERS: No evidence of hydronephrosis or renal calculus. The kidneys enhance symmetrical ly. Atrophy of the left kidney compared to the right. PELVIS BLADDER: Nondistended with Davidson catheter in place. Nondependent gas likely from catheter placement. REPRODUCTIVE: Unremarkable. ABDOMEN & PELVIS STOMACH AND BOWEL: Small hiatal hernia, duodenum is unremarkable. Lower quadrant diverging ostomy. No focal bowel wall thickening or surrounding inflammatory changes. No evidence of bowel obstruction. PERITONEUM: No evidence of pneumoperitoneum or free fluid. VASCULATURE: Mild atherosclerotic calcifications are present throughout the abdominal aorta and its b ranches. No evidence of aortic aneurysm. MUSCULOSKELETAL: No acute osseous abnormalities . Degenerative changes of bilateral SI joints with pa rtial fusion. Multilevel degenerative changes of the visualized spine. DISH of the lower thoracic and upper lumbar spine. Bilateral hip osteoarthritic change. LYMPH NODES: No evidence for lymphadenopathy. SOFT TISSUE/ABDOMINAL WALL: Few regions of stranding within the anterior abdominal wall likely from m edication injection. Left lower quadrant diverting ostomy. Suggested surgical drain within the left o stomy. No surrounding organized fluid collection. Posterior sacral soft tissue fat stranding with ski n thickening. Mild sacral soft tissue defect. Presacral fat strain. No organized fluid collection. No soft tissue gas identified. No surrounding osseous erosion to suggest osteomyelitis. IMPRESSION: 1. Mild sacral decubitus ulcer without evidence of organized fluid collection or osteomyelitis. 2. Postsurgical changes from a left lower quadrant diverting ostomy. 3. Cholelithiasis. 4. Similar at least moderate sized right hydropneumothorax with surrounding consolidation/atelectasis . Stable left lower lobe 8 mm pulmonary nodule. Attention on follow-up exam. [facility], , 12/29/2023 12:32 PM
[2023-12-29] MEDS ORDERED: NALOXONE 0.4 MG/ML 1 ML VIAL IV PRN (13:21)
[2023-12-29] MEDS ORDERED: ACETAMINOPHEN TAB 325 MG TAB PO PRN (13:21)
[2023-12-29] MEDS ORDERED: ONDANSETRON 4 MG/2 ML VIAL IVP PRN (13:21)
--- NOTE | 2023-12-29 14:53 | P.GSCN ---
History of Present Illness Consult date: 12/29/23 History of present illness: CHIEF COMPLAINT: Sacral decubitus ulcer HISTORY OF PRESENT ILLNESS: This is a 73-year-old male with a known history of a chronic sacral decubitus ulcer. He had a recent debridement in November of the sacral decubitus ulcer. And had a diverting colostomy on November 26. Patient currently living at home and has been seen regularly by home care service. The home care nurse noted purulent drainage and odor from the sacral decubitus [facility]. The ulcer also had increase in necrotic tissue. Patient is a diabetic. He does take Plavix. Last dose of Plavix was probably yesterday. CT scan of the abdomen pelvis had reported no fluid collection white count of 10. Home care nurse also reported that the stoma was retracting. Ostomy is functioning. PAST MEDICAL HISTORY: See below PAST SURGICAL HISTORY: Bilateral lower extremity amputation MEDICATIONS: See below ALLERGIES: See below SOCIAL HISTORY: No illicit drug use. REVIEW OF SYSTEMS: CONSTITUTIONAL: Denies fever or chills. HEENT: Denies blurred vision, vision changes, or eye pain. Denies hemoptysis CARDIOVASCULAR: Denies chest pain or pressure. RESPIRATORY: No shortness of breath. GASTROINTESTINAL: See HPI for pertinent findings HEMATOLOGIC: Denies bleeding disorders. GENITOURINARY: Denies any blood in urine or increased urinary frequency. SKIN: Denies pruitis. Denies rash. PHYSICAL EXAM: VITAL SIGNS: Reviewed GENERAL: Well-developed in no acute distress. HEENT: No sclera icterus. Extraocular movements grossly intact. Moist buccal mucosa. Head is atraumatic, normocephalic. No nasal drainage. ABDOMEN: Soft. Nondistended. Nontender. Ostomy with stool in colostomy bag noted. Unable to visualize stoma due to stool NEUROLOGIC: Alert and oriented. Cranial nerves II through XII grossly intact. Skin: Large sacral decubitus ulcer with eschar tissue purulent drainage LABORATORY DATA: WBC 10.3 Hgb 10.2 platelets 475 Sodium 137 potassium is 4.8 creatinine 0.86 Lactic acid 3.3 down to 1.5, Glucose 142 IMAGING: CT scan abdomen pelvis reports mild sacral decubitus ulcer without evidence of organized fluid collection or osteomyelitis. Postsurgical changes from a left lower quadrant diverting ostomy. Cholelithiasis. Similar at least moderate- sized right hydropneumothorax with surrounding consolidation/atelectasis. Stable left lower lobe 8 mm pulmonary nodule. ASSESSMENT: 1. Large sacral decubitus ulcer 2. Recent diverting colostomy on 11/27/2023 3. Diabetes mellitus PLAN: -Patient scheduled for debridement of the sacral decubitus ulcer on with Dr. Alves -Continue to hold Plavix -Antibiotics per infectious disease Physician [employer] note has been reviewed by physician. Signing provider agrees with the documented findings, assessment, and plan of care. 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 Year Discovered:: 10/28/22 MDRO Source:: Blood Past Surgical History: Heart Catheterization Additional Past Surgical History / Comment(s): bilateral great toes amputated, 2nd toe lt foot partial amputation, multiple debridements of venous ulcers, colonoscopy, surgery as a child for undescended testicle., ABOVE THE KNEE AMPUTATION RIGHT LEG (JUNE 2017-[facility]) Past Anesthesia/Blood Transfusion Reactions: No Reported Reaction Date of Last Stent Placement:: 10/17/2022 Past Psychological History: Anxiety, Depression Smoking Status: Former smoker Past Alcohol Use History: Unable to Obtain Past Drug Use History: Unable to Obtain - Past Family History Father Family Medical History: Cancer Additional Family Medical History / Comment(s): Father from brain cancer Mother Family Medical History: Eye Disorder Additional Family Medical History / Comment(s): Glaucoma. Mother is . Medications and Allergies Home Medications Medication Instructions Recorded Confirmed Type traZODone HCL 50 mg PO HS 11/09/17 12/29/23 History Tamsulosin [Flomax] 0.4 mg PO DAILY 09/29/22 12/29/23 History amLODIPine [Norvasc] 10 mg PO DAILY #30 tab 07/03/23 12/29/23 Rx Clopidogrel [Plavix] 75 mg PO DAILY 10/02/23 12/29/23 History Glycopyrrolate 1 mg PO TID PRN 10/02/23 12/29/23 History Sennosides [Senokot] 8.6 mg PO DAILY 10/02/23 12/29/23 History Atorvastatin Calcium [Lipitor] 80 mg PO HS 11/10/23 12/29/23 History Insulin Lispro [humaLOG Kwikpen] See Protocol SQ AC-TID 11/10/23 12/29/23 History HYDROcodone/APAP 7.5-325MG [[place] 1 tab PO Q6HR PRN #12 tab 12/02/23 12/29/23 Rx 7.5-325] Spironolactone [Aldactone] 25 mg PO DAILY tab 12/02/23 12/29/23 Rx Valsartan [Diovan] 320 mg PO DAILY tab 12/02/23 12/29/23 Rx Acetaminophen Tab [Tylenol Tab] 500 mg PO Q6H PRN 12/29/23 12/29/23 History Aspirin 81 mg PO DAILY 12/29/23 12/29/23 History Famotidine [Pepcid] 20 mg PO BID 12/29/23 12/29/23 History Ferrous Sulfate [Feosol] 325 mg PO DAILY 12/29/23 12/29/23 History Gabapentin [Neurontin] 300 mg PO BID 12/29/23 12/29/23 History Insulin Glargine,Hum.rec.anlog 12 units SQ HS 12/29/23 12/29/23 History [Lantus Solostar Pen] Magnesium Citrate [Citrate of 296 ml PO RING 12/29/23 12/29/23 History Magnesia] hydrALAZINE HCL 10 mg PO TID 12/29/23 12/29/23 History Allergies Allergy/AdvReac Type Severity Reaction Status Date / Time No Known Allergies Allergy Verified 12/29/23 13:51 Surgical - Exam Osteopathic Statement: *. No significant issues noted on an osteopathic structural exam other than those noted in the History and Physical/Consult. Vital Signs Temp Pulse Resp BP Pulse Ox 98.7 F 96 18 100/89 99 12/29/23 10:06 12/29/23 10:06 12/29/23 10:06 12/29/23 10:06 12/29/23 10:06 Results - Labs 12/29/23 10:24 12/29/23 10:24 Abnormal Lab Results - Last 24 Hours (Table) 12/29/23 12/29/23 12/29/23 Range/Units 10:24 10:24 10:24 RBC 3.80 L (4.30-5.90) m/uL Hgb 10.2 L (13.0-17.5) gm/dL Hct 33.4 L (39.0-53.0) % MCHC 30.5 L (31.0-37.0) g/dL RDW 17.4 H (11.5-15.5) % Plt Count 475 H (150-450) k/uL Chloride 109 H (98-107) mmol/L Carbon Dioxide 17 L (22-30) mmol/L Glucose 142 H (74-99) mg/dL Plasma Lactic Acid Ata (0.7-2.0) mmol/L Albumin 3.2 L (3.5-5.0) g/dL Urine Protein 2+ H (Negative) Urine Blood Moderate H (Negative) Ur Leukocyte Esterase Large H (Negative) Urine RBC 44 H (0-5) /hpf Urine WBC >182 H (0-5) /hpf Urine Bacteria Many H (None) /hpf Hyaline Casts 74 H (0-2) /lpf Urine Mucus Many H (None) /hpf 12/29/23 Range/Units 10:24 RBC (4.30-5.90) m/uL Hgb (13.0-17.5) gm/dL Hct (39.0-53.0) % MCHC (31.0-37.0) g/dL RDW (11.5-15.5) % Plt Count (150-450) k/uL Chloride (98-107) mmol/L Carbon Dioxide (22-30) mmol/L Glucose (74-99) mg/dL Plasma Lactic Acid Ata 3.3 H* (0.7-2.0) mmol/L Albumin (3.5-5.0) g/dL Urine Protein (Negative) Urine Blood (Negative) Ur Leukocyte Esterase (Negative) Urine RBC (0-5) /hpf Urine WBC (0-5) /hpf Urine Bacteria (None) /hpf Hyaline Casts (0-2) /lpf Urine Mucus (None) /hpf Diabetes panel 12/29/23 Range/Units 10:24 Sodium 137 (137-145) mmol/L Potassium 4.8 (3.5-5.1) mmol/L Chloride 109 H (98-107) mmol/L Carbon Dioxide 17 L (22-30) mmol/L BUN 20 (9-20) mg/dL Creatinine 0.86 (0.66-1.25) mg/dL Glucose 142 H (74-99) mg/dL Calcium 9.0 (8.4-10.2) mg/dL AST 29 (17-59) U/L ALT 16 (4-49) U/L Alkaline Phosphatase 102 (38-126) U/L Total Protein 6.7 (6.3-8.2) g/dL Albumin 3.2 L (3.5-5.0) g/dL Calcium panel 12/29/23 Range/Units 10:24 Calcium 9.0 (8.4-10.2) mg/dL Albumin 3.2 L (3.5-5.0) g/dL Pituitary panel 12/29/23 Range/Units 10:24 Sodium 137 (137-145) mmol/L Potassium 4.8 (3.5-5.1) mmol/L Chloride 109 H (98-107) mmol/L Carbon Dioxide 17 L (22-30) mmol/L BUN 20 (9-20) mg/dL Creatinine 0.86 (0.66-1.25) mg/dL Glucose 142 H (74-99) mg/dL Calcium 9.0 (8.4-10.2) mg/dL Adrenal panel 12/29/23 Range/Units 10:24 Sodium 137 (137-145) mmol/L Potassium 4.8 (3.5-5.1) mmol/L Chloride 109 H (98-107) mmol/L Carbon Dioxide 17 L (22-30) mmol/L BUN 20 (9-20) mg/dL Creatinine 0.86 (0.66-1.25) mg/dL Glucose 142 H (74-99) mg/dL Calcium 9.0 (8.4-10.2) mg/dL Total Bilirubin 0.8 (0.2-1.3) mg/dL AST 29 (17-59) U/L ALT 16 (4-49) U/L Alkaline Phosphatase 102 (38-126) U/L Total Protein 6.7 (6.3-8.2) g/dL Albumin 3.2 L (3.5-5.0) g/dL Assessment and Plan Assessment: imaging reviewed, ct does not demonstrate acute infection, currently on plavix. last does yesterday. will wait for x 2 days prior to debridement. In the meantime recommend wound care for chemical debridement (medihoney/enzamatic) Time with Patient: Less than 30
[2023-12-29] MEDS: PIPERACILLIN-TAZOBACTAM 3.375 GM in SODIUM CHLORIDE 0.9% 100 ML IVPB SCH (14:56)
[2023-12-29] MEDS ORDERED: GLYCOPYRROLATE 1 MG TAB PO PRN (15:22)
[2023-12-29] MEDS ORDERED: DEXTROSE 50% SYRINGE 50 ML IVP PRN ×2 (15:24)
[2023-12-29 17:20] LABS: Glucose,Whole Blood 173 mg/dL (70-110)
[2023-12-29] MEDS: hydrALAZINE HCL 10 MG TAB PO SCH (17:27)
--- NOTE | 2023-12-29 17:55 | P.CNPUL ---
History of Present Illness Consult date: 12/29/23 Reason for consult: pneumothorax History of present illness: 73-year-old male patient was hospitalized for ongoing issues with an infected sacral decub ulcer. The patient is currently living at home and he has been followed up by home care. It was noted that the patient was having purulent discharge and foul smelling odor from his sacral decubitus ulceration. The ulcer was necrotic then based on that the patient was brought into the hospital. CAT scan of the abdomen pelvis was done and it showed a chronic right-sided hydropneumothorax which was noted on previous CAT scan of the chest and this is a complication of the previous thoracentesis was done in September 2023. At that time, the patient developed a loculated hydropneumothorax in the right lung base and the findings have been stable since. No intervention was done as the right lower lobe was thought to be trapped and the patient himself declined any further intervention. Fortunately, the patient has not had any major respiratory complication respiratory compromise along with his right-sided hydropneumothorax. The CAT scan of the abdomen showed a stable moderate-sized right-sided hydropneumothorax along with some atelectatic changes in the right lung base in addition to a stable left lower lobe 8 mm pulmonary nodule. There was also evidence of cholelithiasis, mild sacral decubitus ulcer without evidence of organizing fluid collection or osteomyelitis and a diverting ostomy was also noted over the anterior abdominal wall in addition to cholelithiasis. The patient accordingly was hospitalized. The patient is being seen by general surgery and the patient is going to require another surgical debridement and this is being planned to be done under general anesthesia. Based on that, a pulmonary clearance was requested. On today's evaluation, the patient is on room air oxygen. Denies having any significant respiratory distress. He is known to have multiple medical problems and comorbidities. He is known to have diabetes mellitus type 1, chronically atrophic left kidney, he is got bilateral above-knee amputations, hypertension, mild systolic heart failure with ejection fraction 40 to 45%, peripheral neuropathy, and he has a diverting loop colostomy that was created back in November 2023. 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 E. coli and Enterococcus was also cultured from his urine in addition to Enterobacter on previous evaluations. The patient currently is on room air oxygen. He is hemodynamically stable. He is afebrile. He was started on IV vancomycin and Zosyn. ID is to follow-up with the case. Surgery is also on the case for surgical debridement. 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 Date of last positivie culture/infection: 10/28/22 MDRO Source:: Blood Past Surgical History: Heart Catheterization Additional Past Surgical History / Comment(s): bilateral great toes amputated, 2nd toe lt foot partial amputation, multiple debridements of venous ulcers, colonoscopy, surgery as a child for undescended testicle., ABOVE THE KNEE AMPUTATION RIGHT LEG (JUNE 2017-[facility]) Past Anesthesia/Blood Transfusion Reactions: No Reported Reaction Date of Last Stent Placement:: 10/17/2022 Past Psychological History: Anxiety, Depression Smoking Status: Former smoker Past Alcohol Use History: Unable to Obtain Past Drug Use History: Unable to Obtain - Past Family History Father Family Medical History: Cancer Additional Family Medical History / Comment(s): Father from brain cancer Mother Family Medical History: Eye Disorder Additional Family Medical History / Comment(s): Glaucoma. Mother is . Medications and Allergies Home Medications Medication Instructions Recorded Confirmed Type RX: traZODone HCL 50 mg PO HS 11/09/17 12/29/23 History RX: Tamsulosin [Flomax] 0.4 mg PO DAILY 09/29/22 12/29/23 History RX: amLODIPine [Norvasc] 10 mg PO DAILY #30 tab 07/03/23 12/29/23 Rx RX: Clopidogrel [Plavix] 75 mg PO DAILY 10/02/23 12/29/23 History RX: Glycopyrrolate 1 mg PO TID PRN 10/02/23 12/29/23 History RX: Sennosides [Senokot] 8.6 mg PO DAILY 10/02/23 12/29/23 History RX: Atorvastatin Calcium [Lipitor] 80 mg PO HS 11/10/23 12/29/23 History RX: Insulin Lispro [humaLOG See Protocol SQ AC-TID 11/10/23 12/29/23 History Kwikpen] RX: HYDROcodone/APAP 7.5-325MG 1 tab PO Q6HR PRN #12 tab 12/02/23 12/29/23 Rx [[place] 7.5-325] RX: Spironolactone [Aldactone] 25 mg PO DAILY tab 12/02/23 12/29/23 Rx RX: Valsartan [Diovan] 320 mg PO DAILY tab 12/02/23 12/29/23 Rx Acetaminophen Tab [Tylenol Tab] 500 mg PO Q6H PRN 12/29/23 12/29/23 History Famotidine [Pepcid] 20 mg PO BID 12/29/23 12/29/23 History Ferrous Sulfate [Feosol] 325 mg PO DAILY 12/29/23 12/29/23 History Magnesium Citrate [Citrate of 296 ml PO RING 12/29/23 12/29/23 History Magnesia] RX: Aspirin 81 mg PO DAILY 12/29/23 12/29/23 History RX: Gabapentin [Neurontin] 300 mg PO BID 12/29/23 12/29/23 History RX: Insulin Glargine,Hum.rec.anlog 12 units SQ HS 12/29/23 12/29/23 History [Lantus Solostar Pen] RX: hydrALAZINE HCL 10 mg PO TID 12/29/23 12/29/23 History Allergies Allergy/AdvReac Type Severity Reaction Status Date / Time No Known Allergies Allergy Verified 12/29/23 13:51 Physical Exam Vitals: Vital Signs Temp Pulse Resp BP Pulse Ox 12/29/23 15:02 98.8 F 89 18 139/83 100 12/29/23 13:50 98.2 F 72 18 111/78 100 12/29/23 11:30 137/56 12/29/23 10:30 24 97/52 12/29/23 10:06 98.7 F 96 18 100/89 99 Intake and Output 12/29/23 12/29/23 12/29/23 06:59 14:59 22:59 Other: Weight 78.5 kg GENERAL EXAM: Lethargic, wakes up and answer some questions, confused and disheveled, bilateral AKA HEAD: Normocephalic and atraumatic EYES: Normal reaction of pupils, equal size. NOSE: Clear with pink turbinates. THROAT: No erythema or exudates. NECK: No masses, no JVD. No tracheal deviation. CHEST: No chest wall deformity. LUNGS: Diminished right-sided lung sounds. No wheezes, rhonchi, crackles. Hyperresonance to precussion right side. On room air. No conversational dyspnea or accessory muscle use.. CVS: S1 and S2 normal with no audible murmur, regular rhythm. No extra heart sounds ABDOMEN: No hepatosplenomegaly, active bowel sounds, no guarding or rigidity. The patient has has functional colostomy SPINE: No scoliosis or deformity SKIN: No rashes, decub ulcer CENTRAL NERVOUS SYSTEM: No focal deficits, tone is normal in all 4 extremities.confused. EXTREMITIES: Bilateral AKA. No significant edema. Results - Laboratory Findings CBC and BMP: 12/29/23 10:24 12/29/23 10:24 PT/INR, D-dimer PT 11.2 sec (10.0-12.5) 12/29/23 10:24 INR 1.0 (<1.2) 12/29/23 10:24 Abnormal lab findings: Abnormal Labs 12/29/23 12/29/23 12/29/23 10:24 10:24 10:24 RBC 3.80 L Hgb 10.2 L Hct 33.4 L MCHC 30.5 L RDW 17.4 H Plt Count 475 H Chloride 109 H Carbon Dioxide 17 L Glucose 142 H Plasma Lactic Acid Ata Albumin 3.2 L Urine Protein 2+ H Urine Blood Moderate H Ur Leukocyte Esterase Large H Urine RBC 44 H Urine WBC >182 H Urine Bacteria Many H Hyaline Casts 74 H Urine Mucus Many H 12/29/23 10:24 RBC Hgb Hct MCHC RDW Plt Count Chloride Carbon Dioxide Glucose Plasma Lactic Acid Ata 3.3 H* Albumin Urine Protein Urine Blood Ur Leukocyte Esterase Urine RBC Urine WBC Urine Bacteria Hyaline Casts Urine Mucus Assessment and Plan Plan: Moderate size right-sided hydropneumothorax, a chronic finding that has not changed up on follow-up CAT scan of the abdomen that was done during this current admission on 12/29/2023. Noted this patient underwent a previous right-sided thoracentesis on 10/05/2023, draining approximately 950 mL of bloody fluid. Not sent for cytology this occasion, but fluid previously cytologically unremarkable for malignant cells. Patient did develop a hydropneumothorax postoperatively. Concerns for trapped lung. Subsequent CAT scans showed stable findings and the patient remains on room air oxygen. No signs of any respiratory compromise. Infected sacral decubitus ulcer with ongoing drainage awaiting surgical debridement sacral decub back in November 2023., the patient has had VRE cultures from the Previous history of urinary tract infection, with history of chronic indwelling urinary catheter and recurrent UTIs. Most recent isolated organism from his hospitalization in September, E. coli and Enterobacter cloacae. Repeat cultures are still pending for now the patient is currently on a combination of Zosyn and vancomycin Diverting loop colostomy, performed for a sacral decub ulcer on 11/27/2023 History of constipation/fecal impaction Chronic systolic congestive heart failure, with a ejection fraction of 40 to 45% Bilateral AKA Chronic decubitus pressure ulcer History of diabetes mellitus History of hypertension History of hyperlipidemia History of coronary artery disease with multiple previous PCI/stenting History of gastroesophageal reflux disease Plan Overall pulmonary status is stable. I do not see the need for chest tube insertion or repeat drainage of the right sided hydropneumothorax. I am going to clear this patient for surgery and general anesthesia. I am going to follow- up his postoperative course closely. Repeat chest x-ray will be done following his intubation and general anesthesia to confirm the stability of this right-s ided pneumothorax. Will intervene only if needed. He is currently on room air oxygen. In my opinion, right-sided hydropneumothorax is stable and warrants no immediate attention at this point in time. The pleural fluid that was cultured from the right lung was negative for infection and malignancy.
[2023-12-29] MEDS: INSULIN ASPART (NovoLOG) 100 UNIT/ML VIAL SQ SCH (18:04)
[2023-12-29] MEDS: HEPARIN SODIUM,PORCINE 5,000 UNIT/ML 1 ML VIAL SQ SCH (18:05)
[2023-12-29 20:17] LABS: Glucose,Whole Blood 129 mg/dL (70-110)
[2023-12-29] MEDS: HYDROcodone/APAP 7.5-325MG 1 EACH TAB PO PRN (20:54)
[2023-12-29] MEDS: ATORVASTATIN 80 MG TAB PO SCH (20:55)
[2023-12-29] MEDS: traZODone HCL 50 MG TAB PO SCH (20:55)
[2023-12-29] MEDS: INSULIN DETEMIR (LEVEMIR) 100 UNIT/ML SYR SQ SCH (20:55)
[2023-12-29] MEDS: FAMOTIDINE 20 MG TAB PO SCH (20:55)
[2023-12-29] MEDS: GABAPENTIN 300 MG CAP PO SCH (20:55)
[2023-12-29] MEDS ORDERED: ESCITALOPRAM 20 MG TAB PO SCH (21:00)
--- NOTE | 2023-12-29 21:58 | P.HPIM ---
History of Present Illness H&P Date: 12/29/23 Chief Complaint: Decub ulcer Patient is a 73-year-old male with PMH of IDDM, hypertension, CKD stage II, chronic indwelling Davidson catheter, systolic CHF with ejection fraction of 40 to 45%, dementia, COPD with chronic hypoxemic respiratory failure not on home oxygen and bilateral AKA was sent to the hospital for sacral decubitus ulcers. Patient has dementia and is not able to provide any reasonable history . November 27, 2023 patient underwent loop colostomy by Dr. Maya, to prevent soiling of the decubitus ulcer. As per last admission patient is a DNR. Patient brought to the ER by the EMS as this coccygeal wound was getting black in color with green-yellow pus from the wound. Colostomy bag otherwise working well. Review of systems: Cannot obtain because of patient's cognitive impairment Social history: Former smoker. At home. Cared for by his daughter. Physical examination: VITAL SIGNS: 98.6, 89, 17, 145 x 61, 100% room air GENERAL: Laying in bed. Not in distress EYES: [Pupils equal. Conjunctiva pale HEENT: External appearance of nose and ears normal, oral cavity less dry mucous membrane. NECK: JVD not raised; masses not palpable. HEART: First and second heart sounds are normal; no edema. LUNGS: Respiratory rate increased; decreased breath sounds. ABDOMEN: Soft, nontender, liver spleen not palpable, no masses palpable. Davidson catheter. Loop colostomy.-Soft stool PSYCH: Awake. Can tell his name MUSCULOSKELETAL:No Clubbing/cyanosis;muscles-grossly intact. Sacral decubitus wound NEUROLOGICAL: [Cranial nerves grossly intact; no facial asymmetry, bilateral above-knee amputation INVESTIGATIONS, reviewed in the clinical context: December 28: White count 10.3 hemoglobin 10.2 platelets 475 sodium 137 potassium 4.8 BUN 20 creatinine 0.86 glucose [address] abdomen pelvis: Gallstones. Moderate right hydropneumothorax with surrounding consolidation atelectasis. Assessment plan: # Acute on chronic infected sacral decubitus ulcer, unstageable, now presenting with darkening in color and draining pus Has had previous debridements diverting loop colostomy-November 27, [address] Sachin Maya As previously stated he received antibiotics for the same. 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 They are planning for a debridement under anesthesia. Given patient's chronic hydropneumothorax, which was managed c onservatively pulmonary was consulted as patient will need to get intubated for the procedure. ID consulted 2. 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 Date of last positivie culture/infection: 10/28/22 MDRO Source:: Blood Past Surgical History: Heart Catheterization Additional Past Surgical History / Comment(s): bilateral great toes amputated, 2nd toe lt foot partial amputation, multiple debridements of venous ulcers, colonoscopy, surgery as a child for undescended testicle., ABOVE THE KNEE AMPUTATION RIGHT LEG (JUNE 2017-[facility]) Past Anesthesia/Blood Transfusion Reactions: No Reported Reaction Date of Last Stent Placement:: 10/17/2022 Past Psychological History: Anxiety, Depression Smoking Status: Former smoker Past Alcohol Use History: Unable to Obtain Past Drug Use History: Unable to Obtain - Past Family History Father Family Medical History: Cancer Additional Family Medical History / Comment(s): Father from brain cancer Mother Family Medical History: Eye Disorder Additional Family Medical History / Comment(s): Glaucoma. Mother is . Medications and Allergies Home Medications Medication Instructions Recorded Confirmed Type traZODone HCL 50 mg PO HS 11/09/17 12/29/23 History Tamsulosin [Flomax] 0.4 mg PO DAILY 09/29/22 12/29/23 History amLODIPine [Norvasc] 10 mg PO DAILY #30 tab 07/03/23 12/29/23 Rx Clopidogrel [Plavix] 75 mg PO DAILY 10/02/23 12/29/23 History Glycopyrrolate 1 mg PO TID PRN 10/02/23 12/29/23 History Sennosides [Senokot] 8.6 mg PO DAILY 10/02/23 12/29/23 History Atorvastatin Calcium [Lipitor] 80 mg PO HS 11/10/23 12/29/23 History Insulin Lispro [humaLOG Kwikpen] See Protocol SQ AC-TID 11/10/23 12/29/23 History HYDROcodone/APAP 7.5-325MG [[place] 1 tab PO Q6HR PRN #12 tab 12/02/23 12/29/23 Rx 7.5-325] Spironolactone [Aldactone] 25 mg PO DAILY tab 12/02/23 12/29/23 Rx Valsartan [Diovan] 320 mg PO DAILY tab 12/02/23 12/29/23 Rx Acetaminophen Tab [Tylenol Tab] 500 mg PO Q6H PRN 12/29/23 12/29/23 History Aspirin 81 mg PO DAILY 12/29/23 12/29/23 History Famotidine [Pepcid] 20 mg PO BID 12/29/23 12/29/23 History Ferrous Sulfate [Feosol] 325 mg PO DAILY 12/29/23 12/29/23 History Gabapentin [Neurontin] 300 mg PO BID 12/29/23 12/29/23 History Insulin Glargine,Hum.rec.anlog 12 units SQ HS 12/29/23 12/29/23 History [Lantus Solostar Pen] Magnesium Citrate [Citrate of 296 ml PO RING 12/29/23 12/29/23 History Magnesia] hydrALAZINE HCL 10 mg PO TID 12/29/23 12/29/23 History Allergies Allergy/AdvReac Type Severity Reaction Status Date / Time No Known Allergies Allergy Verified 12/29/23 13:51 Physical Exam Vitals: Vital Signs Temp Pulse Pulse Resp BP BP Pulse Ox 12/29/23 19:16 98.6 F 89 17 145/61 100 12/29/23 15:35 98.2 F 92 20 107/63 100 12/29/23 15:02 98.8 F 89 18 139/83 100 12/29/23 13:50 98.2 F 72 18 111/78 100 12/29/23 11:30 137/56 12/29/23 10:30 24 97/52 12/29/23 10:06 98.7 F 96 18 100/89 99 Intake and Output 12/29/23 12/29/23 12/29/23 06:59 14:59 22:59 Intake Total 658 Output Total 300 Balance 358 Intake: Oral 658 Output: Urine 300 Other: Weight 78.5 kg 78.5 kg Results CBC & Chem 7: 12/29/23 10:24 12/29/23 10:24 Labs: Abnormal Lab Results - Last 24 Hours (Table) 12/29/23 12/29/23 12/29/23 Range/Units 10:24 10:24 10:24 RBC 3.80 L (4.30-5.90) m/uL Hgb 10.2 L (13.0-17.5) gm/dL Hct 33.4 L (39.0-53.0) % MCHC 30.5 L (31.0-37.0) g/dL RDW 17.4 H (11.5-15.5) % Plt Count 475 H (150-450) k/uL Chloride 109 H (98-107) mmol/L Carbon Dioxide 17 L (22-30) mmol/L Glucose 142 H (74-99) mg/dL POC Glucose (mg/dL) (70-110) mg/dL Plasma Lactic Acid Ata (0.7-2.0) mmol/L Albumin 3.2 L (3.5-5.0) g/dL Urine Protein 2+ H (Negative) Urine Blood Moderate H (Negative) Ur Leukocyte Esterase Large H (Negative) Urine RBC 44 H (0-5) /hpf Urine WBC >182 H (0-5) /hpf Urine Bacteria Many H (None) /hpf Hyaline Casts 74 H (0-2) /lpf Urine Mucus Many H (None) /hpf 12/29/23 12/29/23 12/29/23 Range/Units 10:24 17:19 20:15 RBC (4.30-5.90) m/uL Hgb (13.0-17.5) gm/dL Hct (39.0-53.0) % MCHC (31.0-37.0) g/dL RDW (11.5-15.5) % Plt Count (150-450) k/uL Chloride (98-107) mmol/L Carbon Dioxide (22-30) mmol/L Glucose (74-99) mg/dL POC Glucose (mg/dL) 173 H 129 H (70-110) mg/dL Plasma Lactic Acid Ata 3.3 H* (0.7-2.0) mmol/L Albumin (3.5-5.0) g/dL Urine Protein (Negative) Urine Blood (Negative) Ur Leukocyte Esterase (Negative) Urine RBC (0-5) /hpf Urine WBC (0-5) /hpf Urine Bacteria (None) /hpf Hyaline Casts (0-2) /lpf Urine Mucus (None) /hpf Thrombosis Risk Factor Assmnt - Choose All That Apply Any of the Below Risk Factors Present?: Yes Each Factor Represents 1 point: Obesity (BMI >25) Other Risk Factors: Yes Each Risk Factor Represents 2 Points: Age 61-74 years Thrombosis Risk Factor Assessment Total Risk Factor Score: 3 Thrombosis Risk Factor Assessment Level: Moderate Risk
--- NOTE | 2023-12-29 23:15 | P.CONS ---
History of Present Illness - Reason for Consult Consult date: 12/29/23 Infected pressure ulcer, UTI Requesting physician: Kamaljit Saldana - Chief Complaint Worsening sacral wound x few days - History of Present Illness Patient is a 73-year-old male with a past medical history significant for diabetes mellitus hypertension hyperlipidemia osteoarthritis renal disease recent admission to the hospital with sacral pressure ulcer status post surgical debridement x 2 and also have a catheter assisted UTI patient has been brought into the hospital concerning for worsening wound to the sacral area apparently the patient daughter noticed the sacral wound becoming more blackish and there was some purulent drainage and the patient has been sent to the hospital by the home care nurse for further evaluation patient on presentation to the hospital was afebrile and a few have been called subsequently patient was not tachycardic hypotensive or hypoxic patient did have white count of 10.3 creatinine has been normal lactic acid was 3.3 liver enzymes are normal urine has been positive patient did have a chronic indwelling Davidson catheter has been changing the area patient was started on vancomycin and Zosyn patient did have abdominal pelvis CT cycle 2. Also with out evidence of organized fluid collection or osteomyelitis small moderate size right hydropneumothorax with surrounding consolidation atelectasis infectious disease was consulted for further management of antibiotic therapy Review of Systems Positive points has been mentioned in HPI complete review could not be obtained because of his underlying mental status 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 Year Discovered:: 10/28/22 MDRO Source:: Blood Past Surgical History: Heart Catheterization Additional Past Surgical History / Comment(s): bilateral great toes amputated, 2nd toe lt foot partial amputation, multiple debridements of venous ulcers, colonoscopy, surgery as a child for undescended testicle., ABOVE THE KNEE AMP UTATION RIGHT LEG (JUNE 2017-[facility]) Past Anesthesia/Blood Transfusion Reactions: No Reported Reaction Date of Last Stent Placement:: 10/17/2022 Past Psychological History: Anxiety, Depression Smoking Status: Former smoker Past Alcohol Use History: Unable to Obtain Past Drug Use History: Unable to Obtain - Past Family History Father Family Medical History: Cancer Additional Family Medical History / Comment(s): Father from brain cancer Mother Family Medical History: Eye Disorder Additional Family Medical History / Comment(s): Glaucoma. Mother is . Medications and Allergies Home Medications Medication Instructions Recorded Confirmed Type traZODone HCL 50 mg PO HS 11/09/17 12/29/23 History Tamsulosin [Flomax] 0.4 mg PO DAILY 09/29/22 12/29/23 History amLODIPine [Norvasc] 10 mg PO DAILY #30 tab 07/03/23 12/29/23 Rx Clopidogrel [Plavix] 75 mg PO DAILY 10/02/23 12/29/23 History Glycopyrrolate 1 mg PO TID PRN 10/02/23 12/29/23 History Sennosides [Senokot] 8.6 mg PO DAILY 10/02/23 12/29/23 History Atorvastatin Calcium [Lipitor] 80 mg PO HS 11/10/23 12/29/23 History Insulin Lispro [humaLOG Kwikpen] See Protocol SQ AC-TID 11/10/23 12/29/23 History HYDROcodone/APAP 7.5-325MG [[place] 1 tab PO Q6HR PRN #12 tab 12/02/23 12/29/23 Rx 7.5-325] Spironolactone [Aldactone] 25 mg PO DAILY tab 12/02/23 12/29/23 Rx Valsartan [Diovan] 320 mg PO DAILY tab 12/02/23 12/29/23 Rx Acetaminophen Tab [Tylenol Tab] 500 mg PO Q6H PRN 12/29/23 12/29/23 History Aspirin 81 mg PO DAILY 12/29/23 12/29/23 History Famotidine [Pepcid] 20 mg PO BID 12/29/23 12/29/23 History Ferrous Sulfate [Feosol] 325 mg PO DAILY 12/29/23 12/29/23 History Gabapentin [Neurontin] 300 mg PO BID 12/29/23 12/29/23 History Insulin Glargine,Hum.rec.anlog 12 units SQ HS 12/29/23 12/29/23 History [Lantus Solostar Pen] Magnesium Citrate [Citrate of 296 ml PO RING 12/29/23 12/29/23 History Magnesia] hydrALAZINE HCL 10 mg PO TID 12/29/23 12/29/23 History Allergies Allergy/AdvReac Type Severity Reaction Status Date / Time No Known Allergies Allergy Verified 12/29/23 13:51 Physical Exam Vitals: Vital Signs Temp Pulse Resp BP Pulse Ox 12/29/23 13:50 98.2 F 72 18 111/78 100 12/29/23 11:30 137/56 12/29/23 10:30 24 97/52 12/29/23 10:06 98.7 F 96 18 100/89 99 Intake and Output 12/28/23 12/29/23 12/29/23 22:59 06:59 14:59 Other: Weight 78.5 kg GENERAL DESCRIPTION: Elderly male lying in bed, no distress. No tachypnea or accessory muscle of respiration use. HEENT: Shows Pallor , no scleral icterus. Oral mucous membrane is dry. No pharyngeal erythema or thrush NECK: Trachea central, no thyromegaly. LUNGS: Unlabored breathing. Clear to auscultation anteriorly. No wheeze or crackle. HEART: S1, S2, regular rate and rhythm. No loud murmur ABDOMEN: Soft, no tenderness , guarding or rigidity, no organomegaly EXTREMITIES: Bilateral AKA stump healed with no open wound or drainage SKIN: Patient did have unstageable sacral pressure ulcer with a necrotic base but no significant purulent drainage was noticed NEUROLOGICAL: The patient is awake, alert, but pleasantly confused orientation could not be determined Results CBC & Chem 7: 12/29/23 10:24 12/29/23 10:24 Labs: Abnormal Lab Results - Last 24 Hours (Table) 12/29/23 12/29/23 12/29/23 Range/Units 10:24 10:24 10:24 RBC 3.80 L (4.30-5.90) m/uL Hgb 10.2 L (13.0-17.5) gm/dL Hct 33.4 L (39.0-53.0) % MCHC 30.5 L (31.0-37.0) g/dL RDW 17.4 H (11.5-15.5) % Plt Count 475 H (150-450) k/uL Chloride 109 H (98-107) mmol/L Carbon Dioxide 17 L (22-30) mmol/L Glucose 142 H (74-99) mg/dL Plasma Lactic Acid Ata (0.7-2.0) mmol/L Albumin 3.2 L (3.5-5.0) g/dL Urine Protein 2+ H (Negative) Urine Blood Moderate H (Negative) Ur Leukocyte Esterase Large H (Negative) Urine RBC 44 H (0-5) /hpf Urine WBC >182 H (0-5) /hpf Urine Bacteria Many H (None) /hpf Hyaline Casts 74 H (0-2) /lpf Urine Mucus Many H (None) /hpf 12/28/24 Range/Units 10:24 RBC (4.30-5.90) m/uL Hgb (13.0-17.5) gm/dL Hct (39.0-53.0) % MCHC (31.0-37.0) g/dL RDW (11.5-15.5) % Plt Count (150-450) k/uL Chloride (98-107) mmol/L Carbon Dioxide (22-30) mmol/L Glucose (74-99) mg/dL Plasma Lactic Acid Ata 3.3 H* (0.7-2.0) mmol/L Albumin (3.5-5.0) g/dL Urine Protein (Negative) Urine Blood (Negative) Ur Leukocyte Esterase (Negative) Urine RBC (0-5) /hpf Urine WBC (0-5) /hpf Urine Bacteria (None) /hpf Hyaline Casts (0-2) /lpf Urine Mucus (None) /hpf Assessment and Plan (1) Catheter-associated urinary tract infection Current Visit: No Status: Acute Code(s): T83.511A - I/I REACT D/T INDWELLING URETHRAL CATHETER, INIT; N39.0 - URINARY TRACT INFECTION, SITE NOT SPECIFIED SNOMED Code(s): 597515188 (2) Unstageable pressure ulcer of sacral region Current Visit: No Status: Acute Code(s): L89.150 - PRESSURE ULCER OF SACRAL REGION, UNSTAGEABLE SNOMED Code(s): 87238642380035767 Plan: 1patient presented to hospital with worsening sacral pressure ulcer with a necrotic base purulent drainage reported by the daughter/home care nurse plan seen on clinical examination underlying infected pressure ulcer not have excluded patient did have a CT did not show any evidence of sacral osteomyelitis 2 patient also have a significantly positive UA in this patient with the-chronic indwelling Davidson catheter with some mental status changes possible component of catheter associated UTI not entirely excluded 3we will keep the patient on vancomycin pharmacy to dose however switch Zosyn to cefepime to decrease the risk of nephrotoxicity 4-await surgical debridement and deep cultures We will follow on clinical condition and cultures to further adjust medication if needed Thank you for this consultation we will follow the patient along with you Dictation was produced using [employer] dictation software. please excuse any grammatical, word or spelling errors. Time with Patient: Greater than 30
[2023-12-30] MEDS: CEFEPIME 2 GM in SODIUM CHLORIDE 0.9% 100 ML IVPB SCH ×2 (00:41→23:43)
[2023-12-30] MEDS: VANCOMYCIN 1,000 MG in SODIUM CHLORIDE 0.9% 250 ML IVPB SCH (03:56)
[2023-12-30 06:11] LABS: ALT 11 U/L (4-49); AST 15 U/L (17-59); African American GFR (CKD) >90 (>60 ml/min/1.73 sqM); Albumin 2.4 g/dL (3.5-5.0); Albumin/Globulin Ratio 0.8; Alkaline Phosphatase 84 U/L (38-126); Anion Gap 7 mmol/L; Blood Urea Nitrogen 17 mg/dL (9-20); Calcium 8.2 mg/dL (8.4-10.2); Carbon Dioxide 17 mmol/L (22-30); Chloride 114 mmol/L (98-107); Globulin 3.1 g/dL; Glucose 66 mg/dL (74-99); Non-African American GFR(CKD) 79 (>60 ml/min/1.73 sqM); Potassium 3.9 mmol/L (3.5-5.1); Sodium 138 mmol/L (137-145); Total Bilirubin 0.3 mg/dL (0.2-1.3); Total Protein 5.5 g/dL (6.3-8.2)
[2023-12-30 07:23] LABS: Glucose,Whole Blood 72 mg/dL (70-110)
[2023-12-30] MEDS: SENNOSIDES 8.6 MG TAB PO SCH (08:19)
[2023-12-30] MEDS: ASPIRIN 81 MG PO SCH (08:20)
[2023-12-30] MEDS: VALSARTAN 160 MG TAB PO SCH (08:20)
[2023-12-30] MEDS: amLODIPine 10 MG TAB PO SCH (08:20)
[2023-12-30] MEDS: SPIRONOLACTONE 25 MG TAB PO SCH (08:20)
[2023-12-30] MEDS: FERROUS SULFATE 325 MG TAB PO SCH (08:20)
[2023-12-30] MEDS: TAMSULOSIN 0.4 MG CAP.ER.24H PO SCH (08:20)
[2023-12-30 08:47] LABS: Basophils # (A) 0.06 X 10*3/uL (0.00-0.10); Basophils % (A) 0.7 %; Eosinophils % (A) 1.2 %; HCT 28.3 % (39.6-50.0); HGB 8.3 g/dL (13.0-17.0); Lymphocytes # (A) 2.06 X 10*3/uL (0.90-5.00); Lymphocytes % (A) 25.2 %; MCHC 29.3 g/dL (32.0-37.0); MCV 88.7 FL (80.0-97.0); Mean Platelet Volume 11.4 FL (9.5-12.2); Monocytes # (A) 0.67 X 10*3/uL (0.20-1.00); Monocytes % (A) 8.2 %; NRBC Per 100 WBC 0 X 10*3/uL (0.00-0.01); Neutrophils # (A) 5.23 X 10*3/uL (1.80-7.70); Platelet Count 345 X 10*3/uL (140-440); RBC 3.19 X 10*6/uL (4.40-5.60); RDW 18.1 % (11.5-14.5); WBC 8.18 X 10*3/uL (4.50-10.00)
[2023-12-30 11:22] VITALS: BMI 34.9
[2023-12-30 12:13] LABS: Glucose,Whole Blood 101 mg/dL (70-110)
[2023-12-30] MEDS: SODIUM BICARBONATE TAB 650 MG TAB PO SCH (13:25)
--- NOTE | 2023-12-30 13:25 | P.PN ---
Subjective Progress Note Date: 12/30/23 CHIEF COMPLAINT: Sacral decubitus ulcer HISTORY OF PRESENT ILLNESS: Surgical service following regards to patient's sacral decubitus ulcer. Patient seen by pulmonary service regarding his moderate-sized right-sided hydropneumothorax and they have cleared him to proceed with surgery. Afebrile. WBC 8.18 Hgb 8.3 platelets 345 PHYSICAL EXAM: VITAL SIGNS: Reviewed. GENERAL: no acute distress. ABDOMEN: Soft. Nondistended. Nontender. ASSESSMENT: 1. Large sacral decubitus ulcer 2. Recent diverting colostomy on 11/27/2023 3. Diabetes mellitus PLAN: -Patient scheduled for debridement of the sacral decubitus ulcer tomorrow with Dr. Long Steven.p.oGibson after midnight -Preop labs ordered, PT/INR, type and screen and CBC and CMP -Continue to hold Plavix -Antibiotics per ID service -Continue local wound care Physician Tanbark Peeler note has been reviewed by physician. Signing provider agrees with the documented findings, assessment, and plan of care. Objective - Vital Signs Vital signs: Vital Signs Temp 97.7 F 12/30/23 13:03 Pulse 58 L 12/30/23 13:03 Resp 16 12/30/23 13:03 BP 125/63 12/30/23 13:03 Pulse Ox 99 12/30/23 13:03 FiO2 Intake & Output 12/29/23 12/30/23 12/30/23 18:59 06:59 18:59 Intake Total 658 720 Output Total 300 350 200 Balance 358 -350 520 Weight 78.5 kg 78.5 kg Intake: Oral 658 720 Output: Urine 300 350 200 Uretheral (Davidson) 200 - Labs CBC & Chem 7: 12/30/23 05:11 12/30/23 05:11 Labs: Abnormal Lab Results - Last 24 Hours (Table) 12/29/23 12/29/23 12/30/23 Range/Units 17:19 20:15 05:11 RBC (4.40-5.60) X 10*6/uL Hgb (13.0-17.0) g/dL Hct (39.6-50.0) % MCH (27.0-32.0) pg MCHC (32.0-37.0) g/dL RDW (11.5-14.5) % Immature Gran # (0.00-0.04) X 10*3/uL Chloride 114 H (98-107) mmol/L Carbon Dioxide 17 L (22-30) mmol/L Glucose 66 L (74-99) mg/dL POC Glucose (mg/dL) 173 H 129 H (70-110) mg/dL Calcium 8.2 L (8.4-10.2) mg/dL AST 15 L (17-59) U/L Total Protein 5.5 L (6.3-8.2) g/dL Albumin 2.4 L (3.5-5.0) g/dL 12/30/23 Range/Units 05:11 RBC 3.19 L (4.40-5.60) X 10*6/uL Hgb 8.3 L (13.0-17.0) g/dL Hct 28.3 L (39.6-50.0) % MCH 26.0 L (27.0-32.0) pg MCHC 29.3 L (32.0-37.0) g/dL RDW 18.1 H (11.5-14.5) % Immature Gran # 0.06 H (0.00-0.04) X 10*3/uL Chloride (98-107) mmol/L Carbon Dioxide (22-30) mmol/L Glucose (74-99) mg/dL POC Glucose (mg/dL) (70-110) mg/dL Calcium (8.4-10.2) mg/dL AST (17-59) U/L Total Protein (6.3-8.2) g/dL Albumin (3.5-5.0) g/dL Microbiology - Last 24 Hours (Table) 12/29/23 10:24 Gram Stain - Preliminary Back Wound Culture - Preliminary Klebsiella pneumoniae Assessment and Plan Assessment: 73 yo male s/p diverting ostomy and sacral decubitus ulcer debridment -continued progression of sacral ulcer requiring further debridement -currently taking plavix, last dose 12/27? -OR on 12/30 Time with Patient: Less than 30
[2023-12-30 15:59] LABS: INR 1.13 sec (0.93-1.11); Prothrombin Time 12.1 sec (9.9-11.9)
--- NOTE | 2023-12-30 16:13 | P.PN ---
Progress Note - Text Progress Note Date: 12/30/23 Chief Complaint: Decub ulcer Patient is a 73-year-old male with PMH of IDDM, hypertension, CKD stage II, chronic indwelling Davidson catheter, systolic CHF with ejection fraction of 40 to 45%, dementia, COPD with chronic hypoxemic respiratory failure not on home oxygen and bilateral AKA was sent to the hospital for sacral decubitus ulcers. Patient has dementia and is not able to provide any reasonable history . November 27, 2023 patient underwent loop colostomy by Dr. Maya, to prevent soiling of the decubitus ulcer. As per last admission patient is a DNR. Patient brought to the ER by the EMS as this coccygeal wound was getting black in color with green-yellow pus from the wound. Colostomy bag otherwise working well. December 29: Lying in bed. Pleasantly confused. Does not appear to be in any distress. Getting IV cefepime and vancomycin. Patient being scheduled for debridement tomorrow. Plavix held. Medically stable for anesthesia. Eating fair Active Medications Acetaminophen (Acetaminophen Tab 325 Mg Tab) 650 mg PO Q6HR PRN PRN Reason: Mild Pain or Fever > 100.5 Hydrocodone Bitart/Acetaminophen (Hydrocodone/Apap 7.5-325mg 1 Each Tab) 1 each PO Q6HR PRN PRN Reason: Pain Last Admin: 12/29/23 20:54 Dose: 1 each Amlodipine Besylate (Amlodipine 10 Mg Tab) 10 mg PO DAILY [facility] Last Admin: 12/30/23 08:20 Dose: 10 mg Aspirin (Aspirin 81 Mg) 81 mg PO DAILY [facility] Last Admin: 12/30/23 08:20 Dose: 81 mg Atorvastatin Calcium (Atorvastatin 80 Mg Tab) 80 mg PO HS [facility] Last Admin: 12/29/23 20:55 Dose: 80 mg Dextrose/Water (Dextrose 50% Syringe 50 Ml) 25 ml IVP PER PROTOCOL PRN; Protocol PRN Reason: Hypoglycemia Dextrose/Water (Dextrose 50% Syringe 50 Ml) 50 ml IVP PER PROTOCOL PRN; Protocol PRN Reason: Hypoglycemia Famotidine (Famotidine 20 Mg Tab) 20 mg PO BID [facility] Last Admin: 12/30/23 08:20 Dose: 20 mg Ferrous Sulfate (Ferrous Sulfate 325 Mg Tab) 325 mg PO DAILY [facility] Last Admin: 12/30/23 08:20 Dose: 325 mg Gabapentin (Gabapentin 300 Mg Cap) 300 mg PO BID [facility] Last Admin: 12/30/23 08:19 Dose: 300 mg Glycopyrrolate (Glycopyrrolate 1 Mg Tab) 1 mg PO TID PRN PRN Reason: drooling Heparin Sodium (Porcine) (Heparin Sodium,Porcine 5,000 Unit/Ml 1 Ml Vial) 5,000 unit SQ Q8HR [facility] Last Admin: 12/30/23 08:21 Dose: 5,000 unit Hydralazine HCl (Hydralazine Hcl 10 Mg Tab) 10 mg PO TID [facility] Last Admin: 12/30/23 08:21 Dose: 10 mg Vancomycin HCl 1,000 mg/ (Sodium Chloride) 250 mls @ 125 mls/hr IVPB Q16H [facility] Last Admin: 12/30/23 03:56 Dose: 125 mls/hr Cefepime HCl 2 gm/ Sodium (Chloride) 100 mls @ 25 mls/hr IVPB Q12HR [facility]; Protocol Insulin Aspart (Insulin Aspart (Novolog) 100 Unit/Ml Vial) 0 unit SQ ACHS [facility]; Protocol Last Admin: 12/30/23 13:24 Dose: Not Given Insulin Detemir (Insulin Detemir (Levemir) 100 Unit/Ml Syr) 12 unit SQ HS [facility] Last Admin: 12/29/23 20:55 Dose: 12 unit Magnesium Citrate (Magnesium Citrate 296 Ml Bottle) 296 ml PO RING [facility] Morphine Sulfate (Morphine Sulfate 4 Mg/Ml Syringe) 4 mg IV Q4HR PRN PRN Reason: Severe Pain (Scale 7 to 10) Naloxone HCl (Naloxone 0.4 Mg/Ml 1 Ml Vial) 0.2 mg IV Q2M PRN PRN Reason: Opioid Reversal Ondansetron HCl (Ondansetron 4 Mg/2 Ml Vial) 4 mg IVP Q8HR PRN PRN Reason: Nausea And Vomiting Senna (Sennosides 8.6 Mg Tab) 8.6 mg PO DAILY [facility] Last Admin: 12/30/23 08:19 Dose: 8.6 mg Sodium Bicarbonate (Sodium Bicarbonate Tab 650 Mg Tab) 650 mg PO TID [facility] Last Admin: 12/30/23 13:25 Dose: 650 mg Spironolactone (Spironolactone 25 Mg Tab) 25 mg PO DAILY [facility] Last Admin: 12/30/23 08:20 Dose: 25 mg Tamsulosin HCl (Tamsulosin 0.4 Mg Cap.Er.24h) 0.4 mg PO DAILY [facility] Last Admin: 12/30/23 08:20 Dose: 0.4 mg Trazodone HCl (Trazodone Hcl 50 Mg Tab) 50 mg PO HS [facility] Last Admin: 12/29/23 20:55 Dose: 50 mg Valsartan (Valsartan 160 Mg Tab) 320 mg PO DAILY [facility] Last Admin: 12/30/23 08:20 Dose: 320 mg Social history: Former smoker. At home. Cared for by his daughter. Physical examination: VITAL SIGNS: 97.7, 58, 16, 125 x 63, 99% room air GENERAL: Laying in bed. Appears comfortable EYES: [Pupils equal. Conjunctiva pale HEENT: External appearance of nose and ears normal, oral cavity less dry mucous membrane. NECK: JVD not raised; masses not palpable. HEART: First and second heart sounds are normal; no edema. LUNGS: Respiratory rate increased; decreased breath sounds. ABDOMEN: Soft, nontender, liver spleen not palpable, no masses palpable. Davidson catheter. Loop colostomy.-Soft stool PSYCH: Will occasionally speak a word MUSCULOSKELETAL:No Clubbing/cyanosis;muscles-grossly intact. Sacral decubitus wound-pictures in the chart NEUROLOGICAL: [Cranial nerves grossly intact; no facial asymmetry, bilateral above-knee amputation INVESTIGATIONS, reviewed in the clinical context: December 29: White count 8.1 hemoglobin 8.3 platelets 345 sodium 138 potassium 3.9 creatinine 0.97 December 28: White count 10.3 hemoglobin 10.2 platelets 475 sodium 137 potassium 4.8 BUN 20 creatinine 0.86 glucose [address] abdomen pelvis: Gallstones. Moderate right hydropneumothorax with surrounding consolidation atelectasis. Assessment plan: # Acute on chronic infected sacral decubitus ulcer, unstageable, now presenting with darkening in color and draining pus Has had previous debridements diverting loop colostomy-November 27, [address] Sachin Maya For debridement tomorrow by Dr. Alves IV cefepime vancomycin ID following. -Chronic right-sided hydropneumothorax. 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 after midnight for debridement. Other medication clinic antibiotics to continue. 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 Date of last positivie culture/infection: 10/28/22 MDRO Source:: Blood Past Surgical History: Heart Catheterization Additional Past Surgical History / Comment(s): bilateral great toes amputated, 2nd toe lt foot partial amputation, multiple debridements of venous ulcers, colonoscopy, surgery as a child for undescended testicle., ABOVE THE KNEE AMPUTATION RIGHT LEG (JUNE 2017-[facility]) Past Anesthesia/Blood Transfusion Reactions: No Reported Reaction Date of Last Stent Placement:: 10/17/2022 Past Psychological History: Anxiety, Depression Smoking Status: Former smoker Past Alcohol Use History: Unable to Obtain Past Drug Use History: Unable to Obtain
[2023-12-30 16:58] LABS: Glucose,Whole Blood 115 mg/dL (70-110)
--- NOTE | 2023-12-30 18:31 | P.PN ---
Subjective Progress Note Date: 12/30/23 73-year-old male patient was hospitalized for ongoing issues with an infected sacral decub ulcer. The patient is currently living at home and he has been followed up by home care. It was noted that the patient was having purulent discharge and foul smelling odor from his sacral decubitus ulceration. The ulcer was necrotic then based on that the patient was brought into the hospital. CAT scan of the abdomen pelvis was done and it showed a chronic right-sided hydropneumothorax which was noted on previous CAT scan of the chest and this is a complication of the previous thoracentesis was done in September 2023. At that time, the patient developed a loculated hydropneumothorax in the right lung base and the findings have been stable since. No intervention was done as the right lower lobe was thought to be trapped and the patient himself declined any further intervention. Fortunately, the patient has not had any major respiratory complication respiratory compromise along with his right-sided hydropneumothorax. The CAT scan of the abdomen showed a stable moderate-sized right-sided hydropneumothorax along with some atelectatic changes in the right lung base in addition to a stable left lower lobe 8 mm pulmonary nodule. There was also evidence of cholelithiasis, mild sacral decubitus ulcer without evidence of organizing fluid collection or osteomyelitis and a diverting ostomy was also noted over the anterior abdominal wall in addition to cholelithiasis. The patient accordingly was hospitalized. The patient is being seen by general surgery and the patient is going to require another surgical debridement and this is being planned to be done under general anesthesia. Based on that, a pulmonary clearance was requested. On today's evaluation, the patient is on room air oxygen. Denies having any significant respiratory distress. He is known to have multiple medical problems and comorbidities. He is known to have diabetes mellitus type 1, chronically atrophic left kidney, he is got bilateral above-knee amputations, hypertension, mild systolic heart failure with ejection fraction 40 to 45%, peripheral neuropathy, and he has a diverting loop colostomy that was created back in November 2023. 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 E. coli and Enterococcus was also cultured from his urine in addition to Enterobacter on previous evaluations. The patient currently is on room air oxygen. He is hemodynamically stable. He is afebrile. He was started on IV vancomycin and Zosyn. ID is to follow-up with the case. Surgery is also on the case for surgical debridement. On 12/30/2023, patient remains on broad-spectrum antibiotics. No significant agitation. Resting comfortably in bed. He is confused. Remains on a combination of IV cefepime and vancomycin. The patient is scheduled for surgical debridement of the sacral decub on 12/31/2023. Remains on room air oxygen with a pulse ox of 89%. Remains afebrile. No new labs are available from today. Wound culture was positive for Klebsiella pneumonia. Objective - Vital Signs Vital signs: Vital Signs Temp 97.7 F 12/30/23 13:03 Pulse 58 L 12/30/23 13:03 Resp 16 12/30/23 13:03 BP 125/63 12/30/23 13:03 Pulse Ox 99 12/30/23 13:03 FiO2 Intake & Output 12/29/23 12/30/23 12/30/23 18:59 06:59 18:59 Intake Total 658 2272 Output Total 613 140 9665 Balance 358 -350 1272 Weight 78.5 kg 78.5 kg Intake: Oral 658 2272 Output: Urine 941 699 0640 Uretheral (Davidson) 500 - Exam GENERAL EXAM: Lethargic, wakes up and answer some questions, confused and disheveled, bilateral AKA HEAD: Normocephalic and atraumatic EYES: Normal reaction of pupils, equal size. NOSE: Clear with pink turbinates. THROAT: No erythema or exudates. NECK: No masses, no JVD. No tracheal deviation. CHEST: No chest wall deformity. LUNGS: Diminished right-sided lung sounds. No wheezes, rhonchi, crackles. Hyperresonance to precussion right side. On room air. No conversational dyspnea or accessory muscle use.. CVS: S1 and S2 normal with no audible murmur, regular rhythm. No extra heart sounds ABDOMEN: No hepatosplenomegaly, active bowel sounds, no guarding or rigidity. The patient has has functional colostomy SPINE: No scoliosis or deformity SKIN: No rashes, decub ulcer CENTRAL NERVOUS SYSTEM: No focal deficits, tone is normal in all 4 extre mities.confused. EXTREMITIES: Bilateral AKA. No significant edema. - Labs CBC & Chem 7: 12/30/23 05:11 12/30/23 05:11 Labs: Abnormal Lab Results - Last 24 Hours (Table) 12/29/23 12/30/23 12/30/23 Range/Units 20:15 05:11 05:11 RBC 3.19 L (4.40-5.60) X 10*6/uL Hgb 8.3 L (13.0-17.0) g/dL Hct 28.3 L (39.6-50.0) % MCH 26.0 L (27.0-32.0) pg MCHC 29.3 L (32.0-37.0) g/dL RDW 18.1 H (11.5-14.5) % Immature Gran # 0.06 H (0.00-0.04) X 10*3/uL PT (9.9-11.9) sec INR (0.93-1.11) sec Chloride 114 H (98-107) mmol/L Carbon Dioxide 17 L (22-30) mmol/L Glucose 66 L (74-99) mg/dL POC Glucose (mg/dL) 129 H (70-110) mg/dL Calcium 8.2 L (8.4-10.2) mg/dL AST 15 L (17-59) U/L Total Protein 5.5 L (6.3-8.2) g/dL Albumin 2.4 L (3.5-5.0) g/dL 12/30/23 12/30/23 Range/Units 09:16 16:57 RBC (4.40-5.60) X 10*6/uL Hgb (13.0-17.0) g/dL Hct (39.6-50.0) % MCH (27.0-32.0) pg MCHC (32.0-37.0) g/dL RDW (11.5-14.5) % Immature Gran # (0.00-0.04) X 10*3/uL PT 12.1 H (9.9-11.9) sec INR 1.13 H (0.93-1.11) sec Chloride (98-107) mmol/L Carbon Dioxide (22-30) mmol/L Glucose (74-99) mg/dL POC Glucose (mg/dL) 115 H (70-110) mg/dL Calcium (8.4-10.2) mg/dL AST (17-59) U/L Total Protein (6.3-8.2) g/dL Albumin (3.5-5.0) g/dL Microbiology - Last 24 Hours (Table) 12/29/23 10:24 Blood Culture - Preliminary Blood 12/29/23 10:24 Gram Stain - Preliminary Back Wound Culture - Preliminary Klebsiella pneumoniae Assessment and Plan Plan: Moderate size right-sided hydropneumothorax, a chronic finding that has not changed up on follow-up CAT scan of the abdomen that was done during this current admission on 12/29/2023. Noted this patient underwent a previous right-sided thoracentesis on 10/05/2023, draining approximately 950 mL of bloody fluid. Not sent for cytology this occasion, but fluid previously cytologically unremarkable for malignant cells. Patient did develop a hydropneumothorax postoperatively. Concerns for trapped lung. Subsequent CAT scans showed stable findings and the patient remains on room air oxygen. No signs of any respiratory compromise. Infected sacral decubitus ulcer with ongoing drainage awaiting surgical debridement sacral decub back in November 2023., the patient has had VRE cultures from the Previous history of urinary tract infection, with history of chronic indwelling urinary catheter and recurrent UTIs. Most recent isolated organism from his hospitalization in September, E. coli and Enterobacter cloacae. Repeat cultures are still pending for now the patient is currently on a combination of Zosyn and vancomycin Diverting loop colostomy, performed for a sacral decub ulcer on 11/27/2023 History of constipation/fecal impaction Chronic systolic congestive heart failure, with a ejection fraction of 40 to 45% Bilateral AKA Chronic decubitus pressure ulcer History of diabetes mellitus History of hypertension History of hyperlipidemia History of coronary artery disease with multiple previous PCI/stenting History of gastroesophageal reflux disease Plan Surgical debridement is scheduled to be done on 12/31/2023 Overall pulmonary status is stable. I do not see the need for chest tube insertion or repeat drainage of the right sided hydropneumothorax. I am going to clear this patient for surgery and general anesthesia. I am going to follow-up his postoperative course closely. Repeat chest x-ray will be done following his intubation and general anesthesia to confirm the stability of this right-sided pneumothorax. Will intervene only if needed. He is currently on room air oxygen. In my opinion, right-sided hydropneumothorax is stable and warrants no immediate attention at this point in time. The pleural fluid that was cultured from the right lung was negative for infection and malignancy. Currently room air oxygen Most recent wound cultures positive for Klebsiella pneumonia and the patient remains on a combination of Zosyn and vancomycin
[2023-12-30 19:47] LABS: Glucose,Whole Blood 174 mg/dL (70-110)
[2023-12-31 06:44] LABS: Anisocytosis Slight; Basophils % (A) 1 %; Eosinophils # (A) 0.2 k/uL (0-0.7); Eosinophils % (A) 4 %; HCT 29.2 % (39.0-53.0); HGB 8.9 gm/dL (13.0-17.5); Hypochromasia Marked; Lymphocytes # (A) 1.5 k/uL (1.0-4.8); Lymphocytes % (A) 22 %; MCH 27.2 pg (25.0-35.0); MCHC 30.6 g/dL (31.0-37.0); MCV 88.8 fL (80.0-100.0); Mean Platelet Volume 8.5; Monocytes # (A) 0.4 k/uL (0-1.0); Monocytes % (A) 6 %; Neutrophils # (A) 4.3 k/uL (1.3-7.7); Neutrophils % (A) 65 %; Platelet Count 303 k/uL (150-450); RBC 3.29 m/uL (4.30-5.90); RDW 17.2 % (11.5-15.5); WBC 6.5 k/uL (3.8-10.6)
[2023-12-31 06:54] LABS: African American GFR (CKD) >90 (>60 ml/min/1.73 sqM); Anion Gap 4 mmol/L; Blood Urea Nitrogen 29 mg/dL (9-20); Calcium 8.5 mg/dL (8.4-10.2); Carbon Dioxide 17 mmol/L (22-30); Chloride 116 mmol/L (98-107); Glucose 84 mg/dL (74-99); Non-African American GFR(CKD) 84 (>60 ml/min/1.73 sqM); Potassium 4.1 mmol/L (3.5-5.1); Sodium 137 mmol/L (137-145)
[2023-12-31 06:58] LABS: Glucose,Whole Blood 92 mg/dL (70-110)
[2023-12-31] MEDS: NYSTATIN 100,000 UNIT/GM POWD 15 GM TOPICAL SCH (10:02)
[2023-12-31 12:14] LABS: Glucose,Whole Blood 101 mg/dL (70-110)
[2023-12-31] MEDS: SODIUM CHLORIDE 0.9% 1,000 ML IV ONE (13:15)
--- NOTE | 2023-12-31 13:17 | P.PN ---
Subjective Progress Note Date: 12/31/23 Principal diagnosis: Reason for follow-up is infected sacral ulcer and UTI Patient is a 73-year-old male with a past medical history significant for diabetes mellitus hypertension hyperlipidemia osteoarthritis renal disease recent admission to the hospital with sacral pressure ulcer status post surgical debridement x 2 and also have a catheter assisted UTI patient has been brought into the hospital concerning for worsening wound to the sacral area. On today's evaluation that is 12/31/2023, the patient continues to be afebrile, the patient is on room air and breathing comfortably, the Pt denies having any chest pain or cough, the patient denies having any abdominal pain no vomiting or any diarrhea has been reported by the nursing staff, patient mention he is t hirsty would like to drink currently n.p.o. for surgical debridement of the wound this afternoon. The patient white count 6.5, creatinine 0.92 culture from the back as well as urine is growing gram-negative with ID sensitivities pending Objective - Vital Signs Vital signs: Vital Signs Temp 98.6 F 12/31/23 13:04 Pulse 62 12/31/23 13:04 Resp 16 12/31/23 13:04 BP 119/68 12/31/23 13:04 Pulse Ox 98 12/31/23 13:04 FiO2 Intake & Output 12/30/23 12/31/23 12/31/23 18:59 06:59 18:59 Intake Total 2752 0 Output Total 1000 450 200 Balance 1752 -450 -200 Weight 78.5 kg Intake: IV 0 Oral 2752 Output: Urine 1000 400 200 Uretheral (Davidson) 500 200 Stool 50 Other: Voiding Method Indwelling Catheter Indwelling Catheter - Exam GENERAL DESCRIPTION: An elderly male lying in bed in no distress RESPIRATORY SYSTEM: Unlabored breathing , decreased breath sounds at bases HEART: S1 S2 regular rate and rhythm , ABDOMEN: Soft , no tenderness EXTREMITIES: Bilateral AKA stumps are currently healed - Labs CBC & Chem 7: 12/31/23 06:01 12/31/23 06:01 Labs: Abnormal Lab Results - Last 24 Hours (Table) 12/30/23 12/30/23 12/30/23 Range/Units 09:16 16:57 19:45 RBC (4.30-5.90) m/uL Hgb (13.0-17.5) gm/dL Hct (39.0-53.0) % MCHC (31.0-37.0) g/dL RDW (11.5-15.5) % PT 12.1 H (9.9-11.9) sec INR 1.13 H (0.93-1.11) sec Chloride (98-107) mmol/L Carbon Dioxide (22-30) mmol/L BUN (9-20) mg/dL POC Glucose (mg/dL) 115 H 174 H (70-110) mg/dL 12/31/23 12/31/23 Range/Units 06:01 06:01 RBC 3.29 L (4.30-5.90) m/uL Hgb 8.9 L (13.0-17.5) gm/dL Hct 29.2 L (39.0-53.0) % MCHC 30.6 L (31.0-37.0) g/dL RDW 17.2 H (11.5-15.5) % PT (9.9-11.9) sec INR (0.93-1.11) sec Chloride 116 H (98-107) mmol/L Carbon Dioxide 17 L (22-30) mmol/L BUN 29 H (9-20) mg/dL POC Glucose (mg/dL) (70-110) mg/dL Microbiology - Last 24 Hours (Table) 12/29/23 10:24 Urine Culture - Preliminary Urine,Catheterized Gram Neg Bacilli 12/29/23 10:24 Blood Culture - Preliminary Blood 12/29/23 10:24 Gram Stain - Preliminary Back Wound Culture - Preliminary Klebsiella pneumoniae Assessment and Plan (1) Catheter-associated urinary tract infection Current Visit: No Status: Acute Code(s): T83.511A - I/I REACT D/T INDWELLING URETHRAL CATHETER, INIT; N39.0 - URINARY TRACT INFECTION, SITE NOT SPECIFIED SNOMED Code(s): 834994490 (2) Unstageable pressure ulcer of sacral region Current Visit: No Status: Acute Code(s): L89.150 - PRESSURE ULCER OF SACRAL REGION, UNSTAGEABLE SNOMED Code(s): 62526490878824775 Plan: 1patient presented to hospital with worsening sacral pressure ulcer with a n ecrotic base purulent drainage reported by the daughter/home care nurse plan seen on clinical examination underlying infected pressure ulcer not have excluded patient did have a CT did not show any evidence of sacral osteomyelitis 2 patient also have a significantly positive UA in this patient with the-chronic indwelling Davidson catheter with some mental status changes possible component of catheter associated UTI not entirely excluded 3both the urine and the sacral wound culture growing gram-negative with no gram-positive we will discontinue vancomycin and cefepime start the patient on Zosyn adjust antibiotic further on the basis of culture report Dictation was produced using [employer] software. please excuse any grammatical, word or spelling errors. Time with Patient: Less than 30
--- NOTE | 2023-12-31 13:17 | P.PN ---
Subjective Progress Note Date: 12/30/23 Principal diagnosis: Reason for follow-up is infected sacral ulcer and UTI Patient is a 73-year-old male with a past medical history significant for diabetes mellitus hypertension hyperlipidemia osteoarthritis renal disease recent admission to the hospital with sacral pressure ulcer status post surgical debridement x 2 and also have a catheter assisted UTI patient has been brought into the hospital concerning for worsening wound to the sacral area. On today's evaluation that is 12/30/2023, patient has been afebrile, patient is breathing comfortably and is currently on room air, patient denies having any significant cough no chest pain, patient denies nausea vomiting or diarrhea still complaining of pain to the sacral area but no worsening. Patient white count is 8.18, creatinine 0.97 cultures currently pending Objective - Vital Signs Vital signs: Vital Signs Temp 98.3 F 12/30/23 07:03 Pulse 55 L 12/30/23 07:03 Resp 20 12/30/23 08:00 BP 118/49 12/30/23 07:03 Pulse Ox 97 12/30/23 07:03 FiO2 Intake & Output 12/29/23 12/30/23 12/30/23 18:59 06:59 18:59 Intake Total 658 240 Output Total 300 350 200 Balance 358 -350 40 Weight 78.5 kg 78.5 kg Intake: Oral 658 240 Output: Urine 300 350 200 Uretheral (Davidson) 200 - Exam GENERAL DESCRIPTION: An elderly male lying in bed in no distress RESPIRATORY SYSTEM: Unlabored breathing , decreased breath sounds at bases HEART: S1 S2 regular rate and rhythm , ABDOMEN: Soft , no tenderness EXTREMITIES: Bilateral AKA stumps are currently healed - Labs CBC & Chem 7: 12/31/23 06:01 12/31/23 06:01 Labs: Abnormal Lab Results - Last 24 Hours (Table) 12/29/23 12/29/23 12/30/23 Range/Units 17:19 20:15 05:11 RBC (4.40-5.60) X 10*6/uL Hgb (13.0-17.0) g/dL Hct (39.6-50.0) % MCH (27.0-32.0) pg MCHC (32.0-37.0) g/dL RDW (11.5-14.5) % Immature Gran # (0.00-0.04) X 10*3/uL Chloride 114 H (98-107) mmol/L Carbon Dioxide 17 L (22-30) mmol/L Glucose 66 L (74-99) mg/dL POC Glucose (mg/dL) 173 H 129 H (70-110) mg/dL Calcium 8.2 L (8.4-10.2) mg/dL AST 15 L (17-59) U/L Total Protein 5.5 L (6.3-8.2) g/dL Albumin 2.4 L (3.5-5.0) g/dL 12/30/23 Range/Units 05:11 RBC 3.19 L (4.40-5.60) X 10*6/uL Hgb 8.3 L (13.0-17.0) g/dL Hct 28.3 L (39.6-50.0) % MCH 26.0 L (27.0-32.0) pg MCHC 29.3 L (32.0-37.0) g/dL RDW 18.1 H (11.5-14.5) % Immature Gran # 0.06 H (0.00-0.04) X 10*3/uL Chloride (98-107) mmol/L Carbon Dioxide (22-30) mmol/L Glucose (74-99) mg/dL POC Glucose (mg/dL) (70-110) mg/dL Calcium (8.4-10.2) mg/dL AST (17-59) U/L Total Protein (6.3-8.2) g/dL Albumin (3.5-5.0) g/dL Microbiology - Last 24 Hours (Table) 12/29/23 10:24 Gram Stain - Preliminary Back Wound Culture - Preliminary Klebsiella pneumoniae Assessment and Plan (1) Catheter-associated urinary tract infection Current Visit: No Status: Acute Code(s): T83.511A - I/I REACT D/T INDWELLING URETHRAL CATHETER, INIT; N39.0 - URINARY TRACT INFECTION, SITE NOT SPECIFIED SNOMED Code(s): 652790103 (2) Unstageable pressure ulcer of sacral region Current Visit: No Status: Acute Code(s): L89.150 - PRESSURE ULCER OF SACRAL REGION, UNSTAGEABLE SNOMED Code(s): 40225806053297851 Plan: 1patient presented to hospital with worsening sacral pressure ulcer with a necrotic base purulent drainage reported by the daughter/home care nurse plan seen on clinical examination underlying infected pressure ulcer not have excluded patient did have a CT did not show any evidence of sacral osteomyelitis 2 patient also have a significantly positive UA in this patient with the-chronic indwelling Davidosn catheter with some mental status changes possible component of catheter associated UTI not entirely excluded 3we will keep the patient on vancomycin pharmacy to dose and cefepime while waiting for the culture to finalize Dictation was produced using [employer] dictation software. please excuse any grammatical, word or spelling errors. Time with Patient: Less than 30
[2023-12-31] MEDS ORDERED: MIDAZOLAM 2 MG/2 ML VIAL ONE (14:07)
[2023-12-31] MEDS ORDERED: LIDOCAINE 1% INJ 10MG/ML (20 ML MDV) ONE (14:07)
[2023-12-31] MEDS ORDERED: PHENYLEPHRINE 10 MG/ML VIAL ONE (14:07)
[2023-12-31] MEDS ORDERED: PROPOFOL 10 MG/ML 20 ML VIAL IV ONE (14:07)
[2023-12-31] MEDS ORDERED: GLYCOPYRROLATE 0.2 MG/ML 2 ML VIAL ONE (14:07)
[2023-12-31] MEDS ORDERED: fentaNYL (PF) 50 MCG/ML 2 ML AMP ONE (14:07)
[2023-12-31] MEDS: LIDOCAINE 1%-EPI 1:100,000 20 ML VIAL SQ ONE ×2 (14:31)
[2023-12-31 15:08] LABS: Glucose,Whole Blood 102 mg/dL (70-110)
--- NOTE | 2023-12-31 16:34 | P.OP ---
Date of Procedure: 12/31/23 Preoperative Diagnosis: Stage IV Sacral Decubitus Ulcer Postoperative Diagnosis: Stage IV Sacral Decubitus Ulcer Procedure(s) Performed: Sharp Excisional Debridement of Sacral Decubitus Ulcer Anesthesia: MAC Surgeon: Jt Alves Pathology: other (Eschar) Condition: stable Disposition: PACU Description of Procedure: The patient was brought to the operating suite. After anesthesia was given and endotracheal inbtubation was performed, the patient was placed in the prone position. A timeout was performed. A #10 blade and bovie electrocautery were used to perform a sharp excisional debridement of the eschar and devitalized unhealthy appearing tissue. This debridement was performed down to the level of the sacral bone. The approximate area was 20 square cm. Debridement was carried down until healthy appearing bleeding tissue was noted. Bovie was used to control bleeding. Once the procedure was completed, a sterile dressing was applied. The patient tolerated the procedure well and was sent to the PACU in stable condition.
[2023-12-31] MEDS: PIPERACILLIN-TAZOBACTAM 3.375 GM in SODIUM CHLORIDE 0.9% 100 ML IVPB SCH (17:02)
[2023-12-31 17:12] LABS: Glucose,Whole Blood 111 mg/dL (70-110)
--- NOTE | 2023-12-31 19:39 | P.PN ---
Subjective Progress Note Date: 12/31/23 73-year-old male patient was hospitalized for ongoing issues with an infected sacral decub ulcer. The patient is currently living at home and he has been followed up by home care. It was noted that the patient was having purulent discharge and foul smelling odor from his sacral decubitus ulceration. The ulcer was necrotic then based on that the patient was brought into the hospital. CAT scan of the abdomen pelvis was done and it showed a chronic right-sided hydropneumothorax which was noted on previous CAT scan of the chest and this is a complication of the previous thoracentesis was done in September 2023. At that time, the patient developed a loculated hydropneumothorax in the right lung base and the findings have been stable since. No intervention was done as the right lower lobe was thought to be trapped and the patient himself declined any further intervention. Fortunately, the patient has not had any major respiratory complication respiratory compromise along with his right-sided hydropneumothorax. The CAT scan of the abdomen showed a stable moderate-sized right-sided hydropneumothorax along with some atelectatic changes in the right lung base in addition to a stable left lower lobe 8 mm pulmonary nodule. There was also evidence of cholelithiasis, mild sacral decubitus ulcer without evidence of organizing fluid collection or osteomyelitis and a diverting ostomy was also noted over the anterior abdominal wall in addition to cholelithiasis. The patient accordingly was hospitalized. The patient is being seen by general surgery and the patient is going to require another surgical debridement and this is being planned to be done under general anesthesia. Based on that, a pulmonary clearance was requested. On today's evaluation, the patient is on room air oxygen. Denies having any significant respiratory distress. He is known to have multiple medical problems and comorbidities. He is known to have diabetes mellitus type 1, chronically atrophic left kidney, he is got bilateral above-knee amputations, hypertension, mild systolic heart failure with ejection fraction 40 to 45%, peripheral neuropathy, and he has a diverting loop colostomy that was created back in November 2023. 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 E. coli and Enterococcus was also cultured from his urine in addition to Enterobacter on previous evaluations. The patient currently is on room air oxygen. He is hemodynamically stable. He is afebrile. He was started on IV vancomycin and Zosyn. ID is to follow-up with the case. Surgery is also on the case for surgical debridement. On 12/30/2023, patient remains on broad-spectrum antibiotics. No significant agitation. Resting comfortably in bed. He is confused. Remains on a combination of IV cefepime and vancomycin. The patient is scheduled for surgical debridement of the sacral decub on 12/31/2023. Remains on room air oxygen with a pulse ox of 89%. Remains afebrile. No new labs are available from today. Wound culture was positive for Klebsiella pneumonia. 12/31/2023, the patient underwent excisional debridement of the sacral decub ulcer. Postop, the patient was brought back to the floor and the patient is currently on pulse ox of 98% on room air oxygen. No respiratory difficulties. Remains on the same antibiotic coverage. He is currently on IV Zosyn. Urine cultures positive for gram-negative bacillus. The patient also has anaerobes growing from the wound in addition to Klebsiella pneumonia. White cell count is 6.5, hemoglobin is 8.9. #3 3. Be asked to evaluate creatinine 0.9. Objective - Vital Signs Vital signs: Vital Signs Temp 97.6 F 12/31/23 19:04 Pulse 84 12/31/23 19:04 Resp 16 12/31/23 19:04 BP 128/55 12/31/23 19:04 Pulse Ox 98 12/31/23 19:04 FiO2 Intake & Output 12/31/23 12/31/23 01/01/24 06:59 18:59 06:59 Intake Total 1130 Output Total 450 627 Balance -450 503 Intake: IV 350 Oral 780 Output: Urine 400 625 Uretheral (Davidson) 200 Stool 50 Estimated Blood Loss 2 Other: Voiding Method Indwelling Catheter Indwelling Catheter - Exam GENERAL EXAM: Lethargic, wakes up and answer some questions, confused and disheveled, bilateral AKA HEAD: Normocephalic and atraumatic EYES: Normal reaction of pupils, equal size. NOSE: Clear with pink turbinates. THROAT: No erythema or exudates. NECK: No masses, no JVD. No tracheal deviation. CHEST: No chest wall deformity. LUNGS: Diminished right-sided lung sounds. No wheezes, rhonchi, crackles. Hyperresonance to precussion right side. On room air. No conversational dyspnea or accessory muscle use.. CVS: S1 and S2 normal with no audible murmur, regular rhythm. No extra heart sounds ABDOMEN: No hepatosplenomegaly, active bowel sounds, no guarding or rigidity. The patient has has functional colostomy SPINE: No scoliosis or deformity SKIN: No rashes, decub ulcer CENTRAL NERVOUS SYSTEM: No focal deficits, tone is normal in all 4 extremities.confused. EXTREMITIES: Bilateral AKA. No significant edema. - Labs CBC & Chem 7: 12/31/23 06:01 12/31/23 06:01 Labs: Abnormal Lab Results - Last 24 Hours (Table) 12/30/23 12/31/23 12/31/23 Range/Units 19:45 06:01 06:01 RBC 3.29 L (4.30-5.90) m/uL Hgb 8.9 L (13.0-17.5) gm/dL Hct 29.2 L (39.0-53.0) % MCHC 30.6 L (31.0-37.0) g/dL RDW 17.2 H (11.5-15.5) % Chloride 116 H (98-107) mmol/L Carbon Dioxide 17 L (22-30) mmol/L BUN 29 H (9-20) mg/dL POC Glucose (mg/dL) 174 H (70-110) mg/dL 12/31/23 Range/Units 17:11 RBC (4.30-5.90) m/uL Hgb (13.0-17.5) gm/dL Hct (39.0-53.0) % MCHC (31.0-37.0) g/dL RDW (11.5-15.5) % Chloride (98-107) mmol/L Carbon Dioxide (22-30) mmol/L BUN (9-20) mg/dL POC Glucose (mg/dL) 111 H (70-110) mg/dL Microbiology - Last 24 Hours (Table) 12/29/23 10:24 Blood Culture - Preliminary Blood 12/29/23 10:24 Anaerobic Culture - Preliminary Back Bacteroides ovatus Eggerthella species 12/29/23 10:24 Urine Culture - Preliminary Urine,Catheterized Gram Neg Bacilli Assessment and Plan Plan: Moderate size right-sided hydropneumothorax, a chronic finding that has not changed up on follow-up CAT scan of the abdomen that was done during this current admission on 12/29/2023. Noted this patient underwent a previous right-sided thoracentesis on 10/05/2023, draining approximately 950 mL of bloody fluid. Not sent for cytology this occasion, but fluid previously cytologically unremarkable for malignant cells. Patient did develop a hydropneumothorax p ostoperatively. Concerns for trapped lung. Subsequent CAT scans showed stable findings and the patient remains on room air oxygen. No signs of any respiratory compromise. Infected sacral decubitus ulcer with ongoing drainage and the patient is status post excisional debridement. Cultures are showing Klebsiella, anaerobes Previous history of urinary tract infection, with history of chronic indwelling urinary catheter and recurrent UTIs. Most recent isolated organism from his hospitalization in September, E. coli and Enterobacter cloacae. Repeat cultures are still pending for now the patient is currently on a combination of Zosyn. Urine culture is showing gram-negative bacillus Diverting loop colostomy, performed for a sacral decub ulcer on 11/27/2023 History of constipation/fecal impaction Chronic systolic congestive heart failure, with a ejection fraction of 40 to 45% Bilateral AKA Chronic decubitus pressure ulcer History of diabetes mellitus History of hypertension History of hyperlipidemia History of coronary artery disease with multiple previous PCI/stenting History of gastroesophageal reflux disease Plan Surgical debridement completed 12/31/2023 Overall pulmonary status is stable. I do not see the need for chest tube insertion or repeat drainage of the right sided hydropneumothorax. Continue IV Zosyn Monitor cultures Will intervene only if needed. He is currently on room air oxygen. In my opinion, right-sided hydropneumothorax is stable and warrants no immediate attention at this point in time. The pleural fluid that was cultured from the right lung was negative for infection and malignancy. Currently room air oxygen
[2023-12-31 20:09] LABS: Glucose,Whole Blood 177 mg/dL (70-110)
--- NOTE | 2023-12-31 21:14 | P.PN ---
Progress Note - Text Progress Note Date: 12/31/23 Chief Complaint: Decub ulcer Patient is a 73-year-old male with PMH of IDDM, hypertension, CKD stage II, chronic indwelling Davidson catheter, systolic CHF with ejection fraction of 40 to 45%, dementia, COPD with chronic hypoxemic respiratory failure not on home oxygen and bilateral AKA was sent to the hospital for sacral decubitus ulcers. Patient has dementia and is not able to provide any reasonable history . November 27, 2023 patient underwent loop colostomy by Dr. Maya, to prevent soiling of the decubitus ulcer. As per last admission patient is a DNR. Patient brought to the ER by the EMS as this coccygeal wound was getting black in color with green-yellow pus from the wound. Colostomy bag otherwise working well. December 29: Lying in bed. Pleasantly confused. Does not appear to be in any distress. Getting IV cefepime and vancomycin. Patient being scheduled for debridement tomorrow. Plavix held. Medically stable for anesthesia. Eating fair December 30: Saw the patient this morning. Pending surgery. Able to answer simple questions. Getting antibiotics. Include IV Zosyn. Later this evening patient was taken down for excisional debridement of the sacral decubitus ulcer by Dr. Edgar. Debridement was performed down to the level of the sacral bone. Approximate area of 20 cm. Down to healthy tissue. Active Medications Acetaminophen (Acetaminophen Tab 325 Mg Tab) 650 mg PO Q6HR PRN PRN Reason: Mild Pain or Fever > 100.5 Hydrocodone Bitart/Acetaminophen (Hydrocodone/Apap 7.5-325mg 1 Each Tab) 1 each PO Q6HR PRN PRN Reason: Pain Last Admin: 12/31/23 20:31 Dose: 1 each Amlodipine Besylate (Amlodipine 10 Mg Tab) 10 mg PO DAILY PENDING SALE TO [facility] Last Admin: 12/31/23 10:02 Dose: 10 mg Aspirin (Aspirin 81 Mg) 81 mg PO DAILY PENDING SALE TO [facility] Last Admin: 12/31/23 10:02 Dose: 81 mg Atorvastatin Calcium (Atorvastatin 80 Mg Tab) 80 mg PO HS PENDING SALE TO [facility] Last Admin: 12/31/23 20:28 Dose: 80 mg Dextrose/Water (Dextrose 50% Syringe 50 Ml) 25 ml IVP PER PROTOCOL PRN; Protocol PRN Reason: Hypoglycemia Dextrose/Water (Dextrose 50% Syringe 50 Ml) 50 ml IVP PER PROTOCOL PRN; Protocol PRN Reason: Hypoglycemia Famotidine (Famotidine 20 Mg Tab) 20 mg PO BID PENDING SALE TO [facility] Last Admin: 12/31/23 20:28 Dose: 20 mg Ferrous Sulfate (Ferrous Sulfate 325 Mg Tab) 325 mg PO DAILY PENDING SALE TO [facility] Last Admin: 12/31/23 10:02 Dose: 325 mg Gabapentin (Gabapentin 300 Mg Cap) 300 mg PO BID PENDING SALE TO [facility] Last Admin: 12/31/23 20:28 Dose: 300 mg Glycopyrrolate (Glycopyrrolate 1 Mg Tab) 1 mg PO TID PRN PRN Reason: drooling Heparin Sodium (Porcine) (Heparin Sodium,Porcine 5,000 Unit/Ml 1 Ml Vial) 5,000 unit SQ Q8HR PENDING SALE TO [facility] Last Admin: 12/31/23 17:01 Dose: 5,000 unit Hydralazine HCl (Hydralazine Hcl 10 Mg Tab) 10 mg PO TID PENDING SALE TO [facility] Last Admin: 12/31/23 20:28 Dose: 10 mg Piperacillin Sod/Tazobactam (Sod 3.375 gm/ Sodium Chloride) 100 mls @ 25 mls/hr IVPB Q8HR PENDING SALE TO [facility]; Protocol Last Admin: 12/31/23 17:02 Dose: 25 mls/hr Insulin Aspart (Insulin Aspart (Novolog) 100 Unit/Ml Vial) 0 unit SQ ACHS PENDING SALE TO [facility]; Protocol Last Admin: 12/31/23 20:28 Dose: 2 unit Magnesium Citrate (Magnesium Citrate 296 Ml Bottle) 296 ml PO RING PENDING SALE TO [facility] Morphine Sulfate (Morphine Sulfate 4 Mg/Ml Syringe) 4 mg IV Q4HR PRN PRN Reason: Severe Pain (Scale 7 to 10) Naloxone HCl (Naloxone 0.4 Mg/Ml 1 Ml Vial) 0.2 mg IV Q2M PRN PRN Reason: Opioid Reversal Nystatin (Nystatin 100,000 Unit/Gm Powd 15 Gm) 1 applic TOPICAL BID PENDING SALE TO [facility]; Protocol Last Admin: 12/31/23 20:28 Dose: 1 applic Ondansetron HCl (Ondansetron 4 Mg/2 Ml Vial) 4 mg IVP Q8HR PRN PRN Reason: Nausea And Vomiting Senna (Sennosides 8.6 Mg Tab) 8.6 mg PO DAILY PENDING SALE TO [facility] Last Admin: 12/31/23 10:02 Dose: 8.6 mg Sodium Bicarbonate (Sodium Bicarbonate Tab 650 Mg Tab) 650 mg PO TID PENDING SALE TO [facility] Last Admin: 12/31/23 20:27 Dose: 650 mg Spironolactone (Spironolactone 25 Mg Tab) 25 mg PO DAILY PENDING SALE TO [facility] Last Admin: 12/31/23 10:12 Dose: 25 mg Tamsulosin HCl (Tamsulosin 0.4 Mg Cap.Er.24h) 0.4 mg PO DAILY PENDING SALE TO [facility] Last Admin: 12/31/23 10:12 Dose: 0.4 mg Trazodone HCl (Trazodone Hcl 50 Mg Tab) 50 mg PO HS PENDING SALE TO [facility] Last Admin: 12/31/23 20:27 Dose: 50 mg Valsartan (Valsartan 160 Mg Tab) 320 mg PO DAILY PENDING SALE TO [facility] Last Admin: 12/31/23 10:12 Dose: 320 mg Social history: Former smoker. At home. Cared for by his daughter. Physical examination: VITAL SIGNS: 97.6, 84, 16, 128 x 55, 98% room air GENERAL: Laying in bed. Appears comfortable EYES: [Pupils equal. Conjunctiva pale HEENT: External appearance of nose and ears normal, oral cavity less dry mucous membrane. NECK: JVD not raised; masses not palpable. HEART: First and second heart sounds are normal; no edema. LUNGS: Respiratory rate increased; decreased breath sounds. ABDOMEN: Soft, nontender, liver spleen not palpable, no masses palpable. Davidson catheter. Loop colostomy.-Soft stool PSYCH: Will occasionally speak a word MUSCULOSKELETAL:No Clubbing/cyanosis;muscles-grossly intact. Sacral decubitus wound-pictures in the chart NEUROLOGICAL: [Cranial nerves grossly intact; no facial asymmetry, bilateral above-knee amputation INVESTIGATIONS, reviewed in the clinical context: December 30: White count 6.5 globin 8.9 platelets result 3 potassium 4.1 creatinine 0.92 December 29: White count 8.1 hemoglobin 8.3 platelets 345 sodium 138 potassium 3.9 creatinine 0.97 December 28: White count 10.3 hemoglobin 10.2 platelets 475 sodium 137 potassium 4.8 BUN 20 creatinine 0.86 glucose [address] abdomen pelvis: Gallstones. Moderate right hydropneumothorax with surrounding consolidation atelectasis. Assessment plan: # Acute on chronic infected sacral decubitus ulcer, unstageable, now presenting with darkening in color and draining pus Has had previous debridements diverting loop colostomy-November 27, [address] Sachin Chandler [place] debridement today-December [address] Long Reyes changed to IV Zosyn per ID -Chronic right-sided hydropneumothorax. Being followed by pulmonary -Diverting loop colostomy created November 27, 2023 #Normocytic anemia, of chronic disease Follow CBC -Diabetes mellitus type 1 with chronic pancreatic atrophy Levemir-hold for now- follow Accu-Cheks -Chronic left kidney atrophy -Chronic bilateral above-knee amputation -Primary osteoarthritis [place] as needed -Essential hypertension, Amlodipine lisinopril -Severe cognitive impairment -Chronic bladder outflow obstruction BPH, with chronic Davidson catheter Flomax -Chronic congestive heart failure from systolic dysfunction EF 40 to 45% Aldactone -Peripheral neuropathy -Moderate protein calorie malnutrition decreased oral intake Ensure -DNR, as per patient's daughter Doe and her brother Amilcar I&D done today. IV Zosyn. 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 Date of last positivie culture/infection: 10/28/22 MDRO Source:: Blood Past Surgical History: Heart Catheterization Additional Past Surgical History / Comment(s): bilateral great toes amputated, 2nd toe lt foot partial amputation, multiple debridements of venous ulcers, colonoscopy, surgery as a child for undescended testicle., ABOVE THE KNEE AMPUTATION RIGHT LEG (JUNE 2017-[facility]) Past Anesthesia/Blood Transfusion Reactions: No Reported Reaction Date of Last Stent Placement:: 10/17/2022 Past Psychological History: Anxiety, Depression Smoking Status: Former smoker Past Alcohol Use History: Unable to Obtain Past Drug Use History: Unable to Obtain
[2024-01-01] MEDS ORDERED: VANCOMYCIN TROUGH DUE 1 EACH MISC MISCELLANE ONE (03:00)
[2024-01-01 07:10] LABS: Glucose,Whole Blood 128 mg/dL (70-110)
[2024-01-01] MEDS ORDERED: HYDROmorphone 0.5 MG/0.5 ML SYRINGE IVP PRN (07:43)
[2024-01-01] MEDS: LACTATED RINGERS 1,000 ML IV SCH (08:27)
[2024-01-01 12:15] LABS: Glucose,Whole Blood 209 mg/dL (70-110)
[2024-01-01] MEDS: TIGECYCLINE 100 MG in SODIUM CHLORIDE 0.9% 100 ML IVPB ONE (14:07)
--- NOTE | 2024-01-01 14:26 | P.PN ---
Subjective Progress Note Date: 01/01/24 73-year-old male patient was hospitalized for ongoing issues with an infected sacral decub ulcer. The patient is currently living at home and he has been followed up by home care. It was noted that the patient was having purulent discharge and foul smelling odor from his sacral decubitus ulceration. The ulcer was necrotic then based on that the patient was brought into the hospital. CAT scan of the abdomen pelvis was done and it showed a chronic right-sided hydropneumothorax which was noted on previous CAT scan of the chest and this is a complication of the previous thoracentesis was done in September 2023. At that time, the patient developed a loculated hydropneumothorax in the right lung base and the findings have been stable since. No intervention was done as the right lower lobe was thought to be trapped and the patient himself declined any further intervention. Fortunately, the patient has not had any major respiratory complication respiratory compromise along with his right-sided hydropneumothorax. The CAT scan of the abdomen showed a stable moderate-sized right-sided hydropneumothorax along with some atelectatic changes in the right lung base in addition to a stable left lower lobe 8 mm pulmonary nodule. There was also evidence of cholelithiasis, mild sacral decubitus ulcer without evidence of organizing fluid collection or osteomyelitis and a diverting ostomy was also noted over the anterior abdominal wall in addition to cholelithiasis. The patient accordingly was hospitalized. The patient is being seen by general surgery and the patient is going to require another surgical debridement and this is being planned to be done under general anesthesia. Based on that, a pulmonary clearance was requested. On today's evaluation, the patient is on room air oxygen. Denies having any significant respiratory distress. He is known to have multiple medical problems and comorbidities. He is known to have diabetes mellitus type 1, chronically atrophic left kidney, he is got bilateral above-knee amputations, hypertension, mild systolic heart failure with ejection fraction 40 to 45%, peripheral neuropathy, and he has a diverting loop colostomy that was created back in November 2023. 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 E. coli and Enterococcus was also cultured from his urine in addition to Enterobacter on previous evaluations. The patient currently is on room air oxygen. He is hemodynamically stable. He is afebrile. He was started on IV vancomycin and Zosyn. ID is to follow-up with the case. Surgery is also on the case for surgical debridement. On 12/30/2023, patient remains on broad-spectrum antibiotics. No significant agitation. Resting comfortably in bed. He is confused. Remains on a combination of IV cefepime and vancomycin. The patient is scheduled for surgical debridement of the sacral decub on 12/31/2023. Remains on room air oxygen with a pulse ox of 89%. Remains afebrile. No new labs are available from today. Wound culture was positive for Klebsiella pneumonia. 12/31/2023, the patient underwent excisional debridement of the sacral decub ulcer. Postop, the patient was brought back to the floor and the patient is currently on pulse ox of 98% on room air oxygen. No respiratory difficulties. Remains on the same antibiotic coverage. He is currently on IV Zosyn. Urine cultures positive for gram-negative bacillus. The patient also has anaerobes growing from the wound in addition to Klebsiella pneumonia. White cell count is 6.5, hemoglobin is 8.9. #3 3. Be asked to evaluate creatinine 0.9. On 01/01/2024, the patient is postop day #1 following surgical debridement of the sacral decub. No new complaints. Remains on room air oxygen. No respiratory difficulties. Urine cultures positive for gram-negative bacillus. Wound culture from earlier showed Klebsiella pneumonia and anaerobes. Remains on tigecycline per IDs recommendation. Objective - Vital Signs Vital signs: Vital Signs Temp 98.7 F 01/01/24 12:15 Pulse 64 01/01/24 12:15 Resp 18 01/01/24 12:15 BP 115/65 01/01/24 12:15 Pulse Ox 99 01/01/24 12:15 FiO2 Intake & Output 12/31/23 01/01/24 01/01/24 18:59 06:59 18:59 Intake Total 1130 10 Output Total 627 900 Balance 503 -890 Intake: IV 350 10 Invasive Line 1 10 Oral 780 Output: Urine 625 900 Uretheral (Davidson) 200 Estimated Blood Loss 2 Other: Voiding Method Indwelling Catheter Indwelling Catheter Indwelling Catheter - Exam GENERAL EXAM: Lethargic, wakes up and answer some questions, confused and disheveled, bilateral AKA HEAD: Normocephalic and atraumatic EYES: Normal reaction of pupils, equal size. NOSE: Clear with pink turbinates. THROAT: No erythema or exudates. NECK: No masses, no JVD. No tracheal deviation. CHEST: No chest wall deformity. LUNGS: Diminished right-sided lung sounds. No wheezes, rhonchi, crackles. Hyperresonance to precussion right side. On room air. No conversational dyspnea or accessory muscle use.. CVS: S1 and S2 normal with no audible murmur, regular rhythm. No extra heart sounds ABDOMEN: No hepatosplenomegaly, active bowel sounds, no guarding or rigidity. The patient has has functional colostomy SPINE: No scoliosis or deformity SKIN: No rashes, decub ulcer CENTRAL NERVOUS SYSTEM: No focal deficits, tone is normal in all 4 extremities.confused. EXTREMITIES: Bilateral AKA. No significant edema. - Labs CBC & Chem 7: 12/31/23 06:01 12/31/23 06:01 Labs: Abnormal Lab Results - Last 24 Hours (Table) 12/31/23 12/31/23 01/01/24 Range/Units 17:11 20:07 07:09 POC Glucose (mg/dL) 111 H 177 H 128 H (70-110) mg/dL 01/01/24 Range/Units 12:13 POC Glucose (mg/dL) 209 H (70-110) mg/dL Microbiology - Last 24 Hours (Table) 12/29/23 10:24 Gram Stain - Preliminary Back Wound Culture - Preliminary Klebsiella pneumoniae Yeast 12/29/23 10:24 Urine Culture - Preliminary Urine,Catheterized Gram Neg Bacilli 12/29/23 10:24 Blood Culture - Preliminary Blood 12/29/23 10:24 Anaerobic Culture - Preliminary Back Bacteroides ovatus Eggerthella species Assessment and Plan Plan: Moderate size right-sided hydropneumothorax, a chronic finding that has not changed up on follow-up CAT scan of the abdomen that was done during this current admission on 12/29/2023. Noted this patient underwent a previous right-sided thoracentesis on 10/05/2023, draining approximately 950 mL of bloody fluid. Not sent for cytology this occasion, but fluid previously cytologically unremarkable for malignant cells. Patient did develop a hydropneumothorax postoperatively. Concerns for trapped lung. Subsequent CAT scans showed stable findings and the patient remains on room air oxygen. No signs of any respiratory compromise. Infected sacral decubitus ulcer with ongoing drainage and the patient is status post excisional debridement. Cultures are showing Klebsiella, anaerobes Previous history of urinary tract infection, with history of chronic indwelling urinary catheter and recurrent UTIs. Most recent isolated organism from his hospitalization in September, E. coli and Enterobacter cloacae. Repeat cultures are still pending for now the patient is currently on a combination of Zosyn. Urine culture is showing gram-negative bacillus Diverting loop colostomy, performed for a sacral decub ulcer on 11/27/2023 History of constipation/fecal impaction Chronic systolic congestive heart failure, with a ejection fraction of 40 to 45% Bilateral AKA Chronic decubitus pressure ulcer History of diabetes mellitus History of hypertension History of hyperlipidemia History of coronary artery disease with multiple previous PCI/stenting History of gastroesophageal reflux disease Plan Surgical debridement completed 12/31/2023, the patient is postop day #1 Overall pulmonary status is stable. I do not see the need for chest tube insertion or repeat drainage of the right sided hydropneumothorax. Continue IV tigecycline Monitor cultures Will intervene only if needed. He is currently on room air oxygen. In my opinion, right-sided hydropneumothorax is stable and warrants no immediate attention at this point in time. The pleural fluid that was cultured from the right lung was negative for infection and malignancy. Currently room air oxygen Pulmonary services will sign off the case and please contact me back should there be any respiratory issues on this patient.
--- NOTE | 2024-01-01 14:51 | P.PN ---
Subjective Progress Note Date: 01/01/24 CHIEF COMPLAINT: Sacral decubitus ulcer HISTORY OF PRESENT ILLNESS: Patient is postop day #1 status post sharp excisional debridement of sacral decubitus ulcer. Patient lying in bed comfortably. No new complaints. Afebrile. No new labs. Possible discharge today. PHYSICAL EXAM: VITAL SIGNS: Reviewed. GENERAL: no acute distress. ABDOMEN: Soft. Nondistended. Nontender. ASSESSMENT: 1. Large sacral decubitus ulcer 2. Recent diverting colostomy on 11/27/2023 3. Diabetes mellitus PLAN: -Patient can be discharged from surgical standpoint -Continue offloading -Antibiotics per Dr. Del Rosario -Okay to resume Plavix tomorrow Physician Associate Chemist note has been reviewed by physician. Signing provider agrees with the documented findings, assessment, and plan of care. Objective - Vital Signs Vital signs: Vital Signs Temp 98.7 F 01/01/24 12:15 Pulse 64 01/01/24 12:15 Resp 18 01/01/24 12:15 BP 115/65 01/01/24 12:15 Pulse Ox 99 01/01/24 12:15 FiO2 Intake & Output 12/31/23 01/01/24 01/01/24 18:59 06:59 18:59 Intake Total 1130 10 Output Total 627 900 Balance 503 -890 Intake: IV 350 10 Invasive Line 1 10 Oral 780 Output: Urine 625 900 Uretheral (Davidson) 200 Estimated Blood Loss 2 Other: Voiding Method Indwelling Catheter Indwelling Catheter Indwelling Catheter - Labs CBC & Chem 7: 12/31/23 06:01 12/31/23 06:01 Labs: Abnormal Lab Results - Last 24 Hours (Table) 12/31/23 12/31/23 01/01/24 Range/Units 17:11 20:07 07:09 POC Glucose (mg/dL) 111 H 177 H 128 H (70-110) mg/dL 01/01/24 Range/Units 12:13 POC Glucose (mg/dL) 209 H (70-110) mg/dL Microbiology - Last 24 Hours (Table) 12/29/23 10:24 Gram Stain - Preliminary Back Wound Culture - Preliminary Klebsiella pneumoniae Yeast 12/29/23 10:24 Urine Culture - Preliminary Urine,Catheterized Gram Neg Bacilli 12/29/23 10:24 Blood Culture - Preliminary Blood 12/29/23 10:24 Anaerobic Culture - Preliminary Back Bacteroides ovatus Eggerthella species
[2024-01-01] MEDS: COLLAGENASE 250 UNIT/GM OINTMENT 30 GM TUBE TOPICAL SCH (15:21)
--- NOTE | 2024-01-01 16:29 | XR ---
EXAMINATION TYPE: XR chest 1V DATE OF EXAM: 01/01/2024 COMPARISON: 11/26/2023, 12/29/2023 INDICATION: PICC line placement TECHNIQUE: Single frontal view of the chest is obtained. FINDINGS: The heart size is normal. The pulmonary vasculature is normal. Right lower lobe infiltrate is present. Loculated right costophrenic angle pneumothorax not excluded. The findings appear stable from 11/26/2023. PICC line enters on the right with the tip in the distal superior vena cava region. IMPRESSION: 1. Stable loculated right pneumothorax right costophrenic angle. 2. Persistent Infiltrate is in the right lower lobe. 3. PICC line tip distal right superior vena cava [facility], Workstation: [facility], 01/01/2024 4:27 PM
[2024-01-01] MEDS: metroNIDAZOLE 500 MG TAB PO SCH (17:15)
[2024-01-01 17:32] LABS: Glucose,Whole Blood 205 mg/dL (70-110)
--- NOTE | 2024-01-01 18:01 | P.PN ---
Progress Note - Text Progress Note Date: 01/01/24 Chief Complaint: Decub ulcer Patient is a 73-year-old male with PMH of IDDM, hypertension, CKD stage II, chronic indwelling Davidson catheter, systolic CHF with ejection fraction of 40 to 45%, dementia, COPD with chronic hypoxemic respiratory failure not on home oxygen and bilateral AKA was sent to the hospital for sacral decubitus ulcers. Patient has dementia and is not able to provide any reasonable history . November 27, 2023 patient underwent loop colostomy by Dr. Maya, to prevent soiling of the decubitus ulcer. As per last admission patient is a DNR. Patient brought to the ER by the EMS as this coccygeal wound was getting black in color with green-yellow pus from the wound. Colostomy bag otherwise working well. December 29: Lying in bed. Pleasantly confused. Does not appear to be in any distress. Getting IV cefepime and vancomycin. Patient being scheduled for debridement tomorrow. Plavix held. Medically stable for anesthesia. Eating fair December 30: Saw the patient this morning. Pending surgery. Able to answer simple questions. Getting antibiotics. Include IV Zosyn. Later this evening patient was taken down for excisional debridement of the sacral decubitus ulcer by Dr. Edgar. Debridement was performed down to the level of the sacral bone. Approximate area of 20 cm. Down to healthy tissue. December 31: Laying in bed. Comfortable. Spoke to Dr. Barcenas from ID. PICC line being arranged. He will also arrange for home antibiotics. Patient's plan to return home with his daughter. Active Medications Acetaminophen (Acetaminophen Tab 325 Mg Tab) 650 mg PO Q6HR PRN PRN Reason: Mild Pain or Fever > 100.5 Hydrocodone Bitart/Acetaminophen (Hydrocodone/Apap 7.5-325mg 1 Each Tab) 1 each PO Q6HR PRN PRN Reason: Pain Last Admin: 12/31/23 20:31 Dose: 1 each Amlodipine Besylate (Amlodipine 10 Mg Tab) 10 mg PO DAILY SINDHU Last Admin: 01/01/24 10:17 Dose: 10 mg Aspirin (Aspirin 81 Mg) 81 mg PO DAILY SINDHU Last Admin: 01/01/24 10:17 Dose: 81 mg Atorvastatin Calcium (Atorvastatin 80 Mg Tab) 80 mg PO HS [facility] Last Admin: 12/31/23 20:28 Dose: 80 mg Collagenase (Collagenase 250 Unit/Gm Ointment 30 Gm Tube) 1 applic TOPICAL DAILY [facility]; Protocol Last Admin: 01/01/24 15:21 Dose: 1 applic Dextrose/Water (Dextrose 50% Syringe 50 Ml) 25 ml IVP PER PROTOCOL PRN; Protocol PRN Reason: Hypoglycemia Dextrose/Water (Dextrose 50% Syringe 50 Ml) 50 ml IVP PER PROTOCOL PRN; Protocol PRN Reason: Hypoglycemia Famotidine (Famotidine 20 Mg Tab) 20 mg PO BID [facility] Last Admin: 01/01/24 10:17 Dose: 20 mg Ferrous Sulfate (Ferrous Sulfate 325 Mg Tab) 325 mg PO DAILY [facility] Last Admin: 01/01/24 10:18 Dose: 325 mg Gabapentin (Gabapentin 300 Mg Cap) 300 mg PO BID [facility] Last Admin: 01/01/24 10:18 Dose: 300 mg Glycopyrrolate (Glycopyrrolate 1 Mg Tab) 1 mg PO TID PRN PRN Reason: drooling Heparin Sodium (Porcine) (Heparin Sodium,Porcine 5,000 Unit/Ml 1 Ml Vial) 5,000 unit SQ Q8HR [facility] Last Admin: 01/01/24 17:16 Dose: 5,000 unit Hydralazine HCl (Hydralazine Hcl 10 Mg Tab) 10 mg PO TID [facility] Last Admin: 01/01/24 17:22 Dose: 10 mg Lactated Ringer's (Lactated Ringers) 1,000 mls @ 20 mls/hr IV .Q24H [facility] Last Admin: 01/01/24 08:27 Dose: Not Given Tigecycline 50 mg/ Sodium (Chloride) 100 mls @ 100 mls/hr IVPB Q12HR [facility] Insulin Aspart (Insulin Aspart (Novolog) 100 Unit/Ml Vial) 0 unit SQ ACHS [facility]; Protocol Last Admin: 01/01/24 17:52 Dose: 4 unit Magnesium Citrate (Magnesium Citrate 296 Ml Bottle) 296 ml PO RING [facility] Metronidazole (Metronidazole 500 Mg Tab) 500 mg PO TID [facility]; Protocol Last Admin: 01/01/24 17:15 Dose: 500 mg Morphine Sulfate (Morphine Sulfate 4 Mg/Ml Syringe) 4 mg IV Q4HR PRN PRN Reason: Severe Pain (Scale 7 to 10) Naloxone HCl (Naloxone 0.4 Mg/Ml 1 Ml Vial) 0.2 mg IV Q2M PRN PRN Reason: Opioid Reversal Nystatin (Nystatin 100,000 Unit/Gm Powd 15 Gm) 1 applic TOPICAL BID [facility]; Protocol Last Admin: 01/01/24 12:38 Dose: 1 applic Ondansetron HCl (Ondansetron 4 Mg/2 Ml Vial) 4 mg IVP Q8HR PRN PRN Reason: Nausea And Vomiting Senna (Sennosides 8.6 Mg Tab) 8.6 mg PO DAILY [facility] Last Admin: 01/01/24 10:18 Dose: 8.6 mg Sodium Bicarbonate (Sodium Bicarbonate Tab 650 Mg Tab) 650 mg PO TID [facility] Last Admin: 01/01/24 17:16 Dose: 650 mg Spironolactone (Spironolactone 25 Mg Tab) 25 mg PO DAILY [facility] Last Admin: 01/01/24 10:19 Dose: 25 mg Tamsulosin HCl (Tamsulosin 0.4 Mg Cap.Er.24h) 0.4 mg PO DAILY [facility] Last Admin: 01/01/24 10:19 Dose: 0.4 mg Trazodone HCl (Trazodone Hcl 50 Mg Tab) 50 mg PO HS [facility] Last Admin: 12/31/23 20:27 Dose: 50 mg Valsartan (Valsartan 160 Mg Tab) 320 mg PO DAILY [facility] Last Admin: 01/01/24 10:19 Dose: 320 mg Social history: Former smoker. At home. Cared for by his daughter. Physical examination: VITAL SIGNS: 98.7, 64, 18, 115 x 65, 99% room air GENERAL: Laying in bed. Comfortable EYES: [Pupils equal. Conjunctiva pale HEENT: External appearance of nose and ears normal, oral cavity less dry mucous membrane. NECK: JVD not raised; masses not palpable. HEART: First and second heart sounds are normal; no edema. LUNGS: Respiratory rate increased; decreased breath sounds. ABDOMEN: Soft, nontender, liver spleen not palpable, no masses palpable. Davidson catheter. Loop colostomy.-Soft stool PSYCH: Will occasionally speak a word MUSCULOSKELETAL:No Clubbing/cyanosis;muscles-grossly intact. Sacral decubitus wound-pictures in the chart NEUROLOGICAL: [Cranial nerves grossly intact; no facial asymmetry, bilateral above-knee amputation INVESTIGATIONS, reviewed in the clinical context: Wound culture: Bacteroids, acalculous species, Klebsiella pneumoniae December 30: White count 6.5 globin 8.9 platelets result 3 potassium 4.1 creatinine 0.92 December 29: White count 8.1 hemoglobin 8.3 platelets 345 sodium 138 potassium 3.9 creatinine 0.97 December 28: White count 10.3 hemoglobin 10.2 platelets 475 sodium 137 potassium 4.8 BUN 20 creatinine 0.86 glucose [address] abdomen pelvis: Gallstones. Moderate right hydropneumothorax with surrounding consolidation atelectasis. Assessment plan: # Acute on chronic infected sacral decubitus ulcer, unstageable, now presenting with darkening in color and draining pus Has had previous debridements diverting loop colostomy-November 27, [address] Sachin Maya Deep IN r debridement--December [address] Alves On IV Zosyn per ID Wound cultures growing multiple organisms. PICC line. Home antibiotics were arranged by Dr. Del Rosario -Chronic right-sided hydropneumothorax. Being followed by pulmonary -Diverting loop colostomy created November 27, 2023 #Normocytic anemia, of chronic disease Follow CBC -Diabetes mellitus type 1 with chronic pancreatic atrophy Levemir-hold for now- follow Accu-Cheks -Chronic left kidney atrophy -Chronic bilateral above-knee amputation -Primary osteoarthritis [place] as needed -Essential hypertension, Amlodipine lisinopril -Severe cognitive impairment -Chronic bladder outflow obstruction BPH, with chronic Davidson catheter Flomax -Chronic congestive heart failure from systolic dysfunction EF 40 to 45% Aldactone -Peripheral neuropathy -Moderate protein calorie malnutrition decreased oral intake Ensure -DNR, as per patient's daughter Doe and her brother Amilcar Home antibiotic screenings arranged. Other medication to continue. 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 Date of last positivie culture/infection: 10/28/22 MDRO Source:: Blood Past Surgical History: Heart Catheterization Additional Past Surgical History / Comment(s): bilateral great toes amputated, 2nd toe lt foot partial amputation, multiple debridements of venous ulcers, colonoscopy, surgery as a child for undescended testicle., ABOVE THE KNEE AMPUTATION RIGHT LEG (JUNE 2017-[facility]) Past Anesthesia/Blood Transfusion Reactions: No Reported Reaction Date of Last Stent Placement:: 10/17/2022 Past Psychological History: Anxiety, Depression Smoking Status: Former smoker Past Alcohol Use History: Unable to Obtain Past Drug Use History: Unable to Obtain
[2024-01-01 20:09] LABS: Glucose,Whole Blood 240 mg/dL (70-110)
[2024-01-02] MEDS: TIGECYCLINE 50 MG in SODIUM CHLORIDE 0.9% 100 ML IVPB SCH (00:23)
[2024-01-02 07:16] LABS: Glucose,Whole Blood 142 mg/dL (70-110)
--- NOTE | 2024-01-02 10:30 | P.OP ---
Date of Procedure: 01/02/24 Preoperative Diagnosis: Stage IV Sacral Decubitus Ulcer Postoperative Diagnosis: Stage IV Sacral Decubitus Ulcer with Abscess Procedure(s) Performed: Sharp Excisional Debridement Sacral Decubitus Ulcer Anesthesia: MAC Surgeon: Jt Alves Pathology: other (Eschar from Ulcer and Abscess Cultures) Condition: stable Disposition: PACU Description of Procedure: The patient was brought to the operating suite. After anesthesia was given and endotracheal inbtubation was performed, the patient was placed in the prone position. A timeout was performed. A #10 blade and bovie electrocautery were used to perform a sharp excisional debridement of the eschar and devitalized unhealthy appearing tissue. This debridement was performed down to the level of the sacral bone. There was an abscess located under the eschar and there was purulent fluid appreciated. Cultures were taken of the abscess. The a pproximate area was 20 square cm. Debridement was carried down until healthy appearing bleeding tissue was noted. Bovie was used to control bleeding. Wet Kerlix was used to pack the wound. Once the procedure was completed, a sterile dressing was applied. The patient tolerated the procedure well and was sent to the PACU in stable condition.
--- NOTE | 2024-01-02 10:37 | P.PN ---
Progress Note - Text Progress Note Date: 01/02/24 CHIEF COMPLAINT: Sacral decubitus ulcer HISTORY OF PRESENT ILLNESS: Patient is postop day #2 status post sharp excisional debridement of sacral decubitus ulcer. Patient lying in bed comfortably. No new complaints. Afebrile. PHYSICAL EXAM: VITAL SIGNS: Reviewed. GENERAL: no acute distress. ABDOMEN: Soft. Nondistended. Nontender. ASSESSMENT: 1. Large sacral decubitus ulcer 2. Recent diverting colostomy on 11/27/2023 3. Diabetes mellitus PLAN: -Patient can be discharged from surgical standpoint -Continue offloading -Antibiotics per Dr. Del Rosario -[place] to resume Plavix Jt Alves DO [facility] [phone]
[2024-01-02 11:55] LABS: Glucose,Whole Blood 199 mg/dL (70-110)
[2024-01-02 17:05] LABS: Glucose,Whole Blood 197 mg/dL (70-110)
--- NOTE | 2024-01-02 19:10 | P.PN ---
Progress Note - Text Progress Note Date: 01/02/24 Chief Complaint: Decub ulcer Patient is a 73-year-old male with PMH of IDDM, hypertension, CKD stage II, chronic indwelling Davidson catheter, systolic CHF with ejection fraction of 40 to 45%, dementia, COPD with chronic hypoxemic respiratory failure not on home oxygen and bilateral AKA was sent to the hospital for sacral decubitus ulcers. Patient has dementia and is not able to provide any reasonable history . November 27, 2023 patient underwent loop colostomy by Dr. Maya, to prevent soiling of the decubitus ulcer. As per last admission patient is a DNR. Patient brought to the ER by the EMS as this coccygeal wound was getting black in color with green-yellow pus from the wound. Colostomy bag otherwise working well. December 29: Lying in bed. Pleasantly confused. Does not appear to be in any distress. Getting IV cefepime and vancomycin. Patient being scheduled for debridement tomorrow. Plavix held. Medically stable for anesthesia. Eating fair December 30: Saw the patient this morning. Pending surgery. Able to answer simple questions. Getting antibiotics. Include IV Zosyn. Later this evening patient was taken down for excisional debridement of the sacral decubitus ulcer by Dr. Edgar. Debridement was performed down to the level of the sacral bone. Approximate area of 20 cm. Down to healthy tissue. December 31: Laying in bed. Comfortable. Spoke to Dr. Barcenas from [place]. PICC line being arranged. He will also arrange for home antibiotics. Patient's plan to return home with his daughter. January 01: In bed. Comfortable. Holding a simple conversation. DC antibiotics to be arranged by Dr. Del Rosario. Not eating much. Ordered to assist with each meal. Active Medications Acetaminophen (Acetaminophen Tab 325 Mg Tab) 650 mg PO Q6HR PRN PRN Reason: Mild Pain or Fever > 100.5 Hydrocodone Bitart/Acetaminophen (Hydrocodone/Apap 7.5-325mg 1 Each Tab) 1 each PO Q6HR PRN PRN Reason: Pain Last Admin: 01/02/24 14:42 Dose: 1 each Amlodipine Besylate (Amlodipine 10 Mg Tab) 10 mg PO DAILY [facility] Last Admin: 01/02/24 09:14 Dose: 10 mg Aspirin (Aspirin 81 Mg) 81 mg PO DAILY [facility] Last Admin: 01/02/24 09:14 Dose: 81 mg Atorvastatin Calcium (Atorvastatin 80 Mg Tab) 80 mg PO HS [facility] Last Admin: 01/01/24 20:24 Dose: 80 mg Collagenase (Collagenase 250 Unit/Gm Ointment 30 Gm Tube) 1 applic TOPICAL DAILY [facility]; Protocol Last Admin: 01/02/24 10:59 Dose: 1 applic Dextrose/Water (Dextrose 50% Syringe 50 Ml) 25 ml IVP PER PROTOCOL PRN; Protocol PRN Reason: Hypoglycemia Dextrose/Water (Dextrose 50% Syringe 50 Ml) 50 ml IVP PER PROTOCOL PRN; Protocol PRN Reason: Hypoglycemia Famotidine (Famotidine 20 Mg Tab) 20 mg PO BID [facility] Last Admin: 01/02/24 09:14 Dose: 20 mg Ferrous Sulfate (Ferrous Sulfate 325 Mg Tab) 325 mg PO DAILY [facility] Last Admin: 01/02/24 09:14 Dose: 325 mg Gabapentin (Gabapentin 300 Mg Cap) 300 mg PO BID [facility] Last Admin: 01/02/24 09:14 Dose: 300 mg Glycopyrrolate (Glycopyrrolate 1 Mg Tab) 1 mg PO TID PRN PRN Reason: drooling Heparin Sodium (Porcine) (Heparin Sodium,Porcine 5,000 Unit/Ml 1 Ml Vial) 5,000 unit SQ Q8HR [facility] Last Admin: 01/02/24 16:31 Dose: 5,000 unit Hydralazine HCl (Hydralazine Hcl 10 Mg Tab) 10 mg PO TID [facility] Last Admin: 01/02/24 16:21 Dose: Not Given Lactated Ringer's (Lactated Ringers) 1,000 mls @ 20 mls/hr IV .Q24H [facility] Last Admin: 01/02/24 11:00 Dose: Not Given Tigecycline 50 mg/ Sodium (Chloride) 100 mls @ 100 mls/hr IVPB Q12HR [facility] Last Admin: 01/02/24 08:16 Dose: 100 mls/hr Insulin Aspart (Insulin Aspart (Novolog) 100 Unit/Ml Vial) 0 unit SQ ACHS [facility]; Protocol Last Admin: 01/02/24 17:44 Dose: 2 unit Magnesium Citrate (Magnesium Citrate 296 Ml Bottle) 296 ml PO RING [facility] Metronidazole (Metronidazole 500 Mg Tab) 500 mg PO TID [facility]; Protocol Last Admin: 01/02/24 16:31 Dose: 500 mg Morphine Sulfate (Morphine Sulfate 4 Mg/Ml Syringe) 4 mg IV Q4HR PRN PRN Reason: Severe Pain (Scale 7 to 10) Naloxone HCl (Naloxone 0.4 Mg/Ml 1 Ml Vial) 0.2 mg IV Q2M PRN PRN Reason: Opioid Reversal Nystatin (Nystatin 100,000 Unit/Gm Powd 15 Gm) 1 applic TOPICAL BID [facility]; Protocol Last Admin: 01/02/24 09:20 Dose: 1 applic Ondansetron HCl (Ondansetron 4 Mg/2 Ml Vial) 4 mg IVP Q8HR PRN PRN Reason: Nausea And Vomiting Senna (Sennosides 8.6 Mg Tab) 8.6 mg PO DAILY [facility] Last Admin: 01/02/24 09:14 Dose: 8.6 mg Sodium Bicarbonate (Sodium Bicarbonate Tab 650 Mg Tab) 650 mg PO TID [facility] Last Admin: 01/02/24 16:31 Dose: 650 mg Spironolactone (Spironolactone 25 Mg Tab) 25 mg PO DAILY [facility] Last Admin: 01/02/24 09:14 Dose: 25 mg Tamsulosin HCl (Tamsulosin 0.4 Mg Cap.Er.24h) 0.4 mg PO DAILY [facility] Last Admin: 01/02/24 09:14 Dose: 0.4 mg Trazodone HCl (Trazodone Hcl 50 Mg Tab) 50 mg PO HS [facility] Last Admin: 01/01/24 20:24 Dose: 50 mg Valsartan (Valsartan 160 Mg Tab) 320 mg PO DAILY [facility] Last Admin: 01/02/24 09:14 Dose: 320 mg Social history: Former smoker. At home. Cared for by his daughter. Physical examination: VITAL SIGNS: 98.1, 85, 20, 119 x 66, 99% room air GENERAL: Laying in bed. Comfortable EYES: [Pupils equal. Conjunctiva pale HEENT: External appearance of nose and ears normal, oral cavity less dry mucous membrane. NECK: JVD not raised; masses not palpable. HEART: First and second heart sounds are normal; no edema. LUNGS: Respiratory rate increased; decreased breath sounds. ABDOMEN: Soft, nontender, liver spleen not palpable, no masses palpable. Davidson catheter. Loop colostomy.-Soft stool PSYCH: Speaking short sentences. MUSCULOSKELETAL:No Clubbing/cyanosis;muscles-grossly intact. Sacral decubitus wound-pictures in the chart NEUROLOGICAL: [Cranial nerves grossly intact; no facial asymmetry, bilateral above-knee amputation INVESTIGATIONS, reviewed in the clinical context: Wound culture: Bacteroids, acalculous species, Klebsiella pneumoniae December 30: White count 6.5 globin 8.9 platelets result 3 potassium 4.1 creatinine 0.92 December 29: White count 8.1 hemoglobin 8.3 platelets 345 sodium 138 potassium 3.9 creatinine 0.97 December 28: White count 10.3 hemoglobin 10.2 platelets 475 sodium 137 potassium 4.8 BUN 20 creatinine 0.86 glucose [address] abdomen pelvis: Gallstones. Moderate right hydropneumothorax with surroundi ng consolidation atelectasis. Assessment plan: # Acute on chronic infected sacral decubitus ulcer, unstageable, now presenting with darkening in color and draining pus Has had previous debridements diverting loop colostomy-November 27, [address] Sachin Maya Deep IN r debridement--December [address] Long DING Zosyn changed over to IV tigecycline Wound cultures growing multiple organisms. PICC line. Home antibiotics were arranged by Dr. Del Rosario -Chronic right-sided hydropneumothorax. 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 And PICC line. 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 Date of last positivie culture/infection: 10/28/22 MDRO Source:: Blood Past Surgical History: Heart Catheterization Additional Past Surgical History / Comment(s): bilateral great toes amputated, 2nd toe lt foot partial amputation, multiple debridements of venous ulcers, colonoscopy, surgery as a child for undescended testicle., ABOVE THE KNEE AMPUTATION RIGHT LEG (JUNE 2017-[facility]) Past Anesthesia/Blood Transfusion Reactions: No Reported Reaction Date of Last Stent Placement:: 10/17/2022 Past Psychological History: Anxiety, Depression Smoking Status: Former smoker Past Alcohol Use History: Unable to Obtain Past Drug Use History: Unable to Obtain
[2024-01-02 20:45] LABS: Glucose,Whole Blood 223 mg/dL (70-110)
--- NOTE | 2024-01-02 22:40 | P.PN ---
Subjective Progress Note Date: 01/01/24 Principal diagnosis: Reason for follow-up is infected sacral ulcer and UTI Patient is a 73-year-old male with a past medical history significant for diabetes mellitus hypertension hyperlipidemia osteoarthritis renal disease recent admission to the hospital with sacral pressure ulcer status post surgical debridement x 2 and also have a catheter assisted UTI patient has been brought into the hospital concerning for worsening wound to the sacral area. On today's evaluation that is 01/01/2024,the patient denies any fever or any chills, patient is breathing comfortably on room air, the patient denies chest pain shortness of breath and no significant cough, patient denies abdominal pain, no nausea vomiting or diarrhea.. No CBC or BMP has been done today wound culture have been finalized with CRE Klebsiella and bacteroid Objective - Vital Signs Vital signs: Vital Signs Temp 99.4 F 01/01/24 07:54 Pulse 81 01/01/24 07:54 Resp 18 01/01/24 07:54 BP 136/64 01/01/24 07:54 Pulse Ox 100 01/01/24 07:54 FiO2 Intake & Output 12/31/23 01/01/24 01/01/24 18:59 06:59 18:59 Intake Total 1130 10 Output Total 627 900 Balance 503 -890 Intake: IV 350 10 Invasive Line 1 10 Oral 780 Output: Urine 625 900 Uretheral (Davidson) 200 Estimated Blood Loss 2 Other: Voiding Method Indwelling Catheter Indwelling Catheter Indwelling Catheter - Exam GENERAL DESCRIPTION: An elderly male lying in bed in no distress RESPIRATORY SYSTEM: Unlabored breathing , decreased breath sounds at bases HEART: S1 S2 regular rate and rhythm , ABDOMEN: Soft , no tenderness EXTREMITIES: Bilateral AKA stumps are currently healed - Labs CBC & Chem 7: 12/31/23 06:01 12/31/23 06:01 Labs: Abnormal Lab Results - Last 24 Hours (Table) 12/31/23 12/31/23 01/01/24 Range/Units 17:11 20:07 07:09 POC Glucose (mg/dL) 111 H 177 H 128 H (70-110) mg/dL Microbiology - Last 24 Hours (Table) 12/29/23 10:24 Gram Stain - Preliminary Back Wound Culture - Preliminary Klebsiella pneumoniae Yeast 12/29/23 10:24 Urine Culture - Preliminary Urine,Catheterized Gram Neg Bacilli 12/29/23 10:24 Blood Culture - Preliminary Blood 12/29/23 10:24 Anaerobic Culture - Preliminary Back Bacteroides ovatus Eggerthella species Assessment and Plan (1) Catheter-associated urinary tract infection Current Visit: No Status: Acute Code(s): T83.511A - I/I REACT D/T INDWELLING URETHRAL CATHETER, INIT; N39.0 - URINARY TRACT INFECTION, SITE NOT SPECIFIED SNOMED Code(s): 314098102 (2) Unstageable pressure ulcer of sacral region Current Visit: No Status: Acute Code(s): L89.150 - PRESSURE ULCER OF SACRAL REGION, UNSTAGEABLE SNOMED Code(s): 77427520223533454 Plan: 1patient presented to hospital with worsening sacral pressure ulcer with a necrotic base purulent drainage reported by the daughter/home care nurse plan seen on clinical examination underlying infected pressure ulcer not have excluded patient did have a CT did not show any evidence of sacral osteomyelitis 2 patient also have a significantly positive UA in this patient with the-chronic indwelling Davidson catheter with some mental status changes possible component of catheter associated UTI not entirely excluded 3wound culture has been finalized with a CRE Klebsiella as well as bacteroids we will switch antibiotic therapy to Tygacil and oral Flagyl patient need PICC line for outpatient IV antibiotic therapy discussed with admitting physician Dictation was produced using [employer] dictation software. please excuse any grammatical, word or spelling errors. Time with Patient: Less than 30
--- NOTE | 2024-01-02 22:41 | P.PN ---
Subjective Progress Note Date: 01/02/24 Principal diagnosis: Reason for follow-up is infected sacral ulcer and UTI Patient is a 73-year-old male with a past medical history significant for diabetes mellitus hypertension hyperlipidemia osteoarthritis renal disease recent admission to the hospital with sacral pressure ulcer status post surgical debridement x 2 and also have a catheter assisted UTI patient has been brought into the hospital concerning for worsening wound to the sacral area. On today's evaluation that is 01/02/2024 the patient continues to be afebrile, the patient is breathing comfortably on room air patient denies having any chest pain or cough, no nausea no vomiting abdominal pain or diarrhea, still complaining of pain to the sacral wound area and wants some pain medication. No new lab has been obtained today Objective - Vital Signs Vital signs: Vital Signs Temp 98.5 F 01/02/24 19:11 Pulse 67 01/02/24 19:11 Resp 18 01/02/24 19:11 BP 138/57 01/02/24 19:11 Pulse Ox 98 01/02/24 19:11 FiO2 Intake & Output 01/02/24 01/02/24 01/03/24 06:59 18:59 06:59 Intake Total 293 Output Total 800 375 Balance -800 -82 Intake: Oral 293 Output: Urine 800 375 Other: Voiding Method Indwelling Catheter Indwelling Catheter - Exam GENERAL DESCRIPTION: An elderly male lying in bed in no distress RESPIRATORY SYSTEM: Unlabored breathing , decreased breath sounds at bases HEART: S1 S2 regular rate and rhythm , ABDOMEN: Soft , no tenderness EXTREMITIES: Bilateral AKA stumps are currently healed - Labs CBC & Chem 7: 12/31/23 06:01 12/31/23 06:01 Labs: Abnormal Lab Results - Last 24 Hours (Table) 01/02/24 01/02/24 01/02/24 Range/Units 07:14 11:54 17:04 POC Glucose (mg/dL) 142 H 199 H 197 H (70-110) mg/dL 01/02/24 Range/Units 20:43 POC Glucose (mg/dL) 223 H (70-110) mg/dL Microbiology - Last 24 Hours (Table) 12/29/23 10:24 Gram Stain - Final Back Wound Culture - Final Klebsiella pneumoniae Barbie tropicalis 12/31/23 14:35 Gram Stain - Preliminary Other - Other Tissue Culture - Preliminary Gram Neg Bacilli 12/29/23 10:24 Anaerobic Culture - Final Back Bacteroides ovatus Eggerthella species Assessment and Plan (1) Catheter-associated urinary tract infection Current Visit: No Status: Acute Code(s): T83.511A - I/I REACT D/T INDWELLING URETHRAL CATHETER, INIT; N39.0 - URINARY TRACT INFECTION, SITE NOT SPECIFIED SNOMED Code(s): 034278581 (2) Unstageable pressure ulcer of sacral region Current Visit: No Status: Acute Code(s): L89.150 - PRESSURE ULCER OF SACRAL REGION, UNSTAGEABLE SNOMED Code(s): 43442801262948304 Plan: 1patient presented to hospital with worsening sacral pressure ulcer with a necrotic base purulent drainage reported by the daughter/home care nurse plan seen on clinical examination underlying infected pressure ulcer not have excluded patient did have a CT did not show any evidence of sacral osteomyelitis 2 patient also have a significantly positive UA in this patient with the-chronic indwelling Davidson catheter with some mental status changes possible component of catheter associated UTI not entirely excluded 3wound culture has been finalized with a CRE Klebsiella as well as bacteroids for the patient is currently covered with Tygacil and oral Flagyl will need PICC line and outpatient IV antibiotic arrangement before discharge and also waiting on the OR culture that would be more suggestive of true pathogen causing this infection and abscess Dictation was produced using [email or web address] dictation software. please excuse any grammatical, word or spelling errors. Time with Patient: Less than 30
--- NOTE | 2024-01-03 04:54 | P.PN ---
Progress Note - Text Progress Note Date: 01/03/24 CHIEF COMPLAINT: Sacral decubitus ulcer HISTORY OF PRESENT ILLNESS: Patient is postop day #3 status post sharp excisional debridement of sacral decubitus ulcer. Patient lying in bed comfortably. No new complaints. Afebrile. PHYSICAL EXAM: VITAL SIGNS: Reviewed. GENERAL: no acute distress. ABDOMEN: Soft. Nondistended. Nontender. ASSESSMENT: 1. Large sacral decubitus ulcer 2. Recent diverting colostomy on 11/27/2023 3. Diabetes mellitus PLAN: -Patient can be discharged from surgical standpoint -Continue offloading -Antibiotics per Dr. Del Rosario -[place] to resume Plavix Jt Alves DO [facility] [phone]
[2024-01-03 05:28] LABS: Anisocytosis Slight; Basophils % (A) 0 %; Eosinophils # (A) 0.2 k/uL (0-0.7); Eosinophils % (A) 2 %; HCT 28.4 % (39.0-53.0); HGB 8.7 gm/dL (13.0-17.5); Hypochromasia Marked; Lymphocytes # (A) 1.5 k/uL (1.0-4.8); Lymphocytes % (A) 17 %; MCH 27.1 pg (25.0-35.0); MCHC 30.7 g/dL (31.0-37.0); MCV 88.3 fL (80.0-100.0); Mean Platelet Volume 8.7; Monocytes # (A) 0.5 k/uL (0-1.0); Monocytes % (A) 7 %; Neutrophils # (A) 5.9 k/uL (1.3-7.7); Neutrophils % (A) 71 %; Platelet Count 305 k/uL (150-450); RBC 3.22 m/uL (4.30-5.90); RDW 17.6 % (11.5-15.5); WBC 8.3 k/uL (3.8-10.6)
[2024-01-03 05:43] LABS: African American GFR (CKD) >90 (>60 ml/min/1.73 sqM); Anion Gap 6 mmol/L; Blood Urea Nitrogen 31 mg/dL (9-20); Calcium 7.7 mg/dL (8.4-10.2); Carbon Dioxide 16 mmol/L (22-30); Chloride 115 mmol/L (98-107); Glucose 111 mg/dL (74-99); Non-African American GFR(CKD) 87 (>60 ml/min/1.73 sqM); Potassium 3.6 mmol/L (3.5-5.1); Sodium 137 mmol/L (137-145)
[2024-01-03 07:26] LABS: Glucose,Whole Blood 117 mg/dL (70-110)
[2024-01-03] MEDS: MAGNESIUM CITRATE 296 ML BOTTLE PO SCH (08:47)
[2024-01-03 12:30] LABS: Glucose,Whole Blood 175 mg/dL (70-110)
--- NOTE | 2024-01-03 17:04 | P.PN ---
Progress Note - Text Progress Note Date: 01/03/24 Chief Complaint: Decub ulcer Patient is a 73-year-old male with PMH of IDDM, hypertension, CKD stage II, chronic indwelling Davidson catheter, systolic CHF with ejection fraction of 40 to 45%, dementia, COPD with chronic hypoxemic respiratory failure not on home oxygen and bilateral AKA was sent to the hospital for sacral decubitus ulcers. Patient has dementia and is not able to provide any reasonable history . November 27, 2023 patient underwent loop colostomy by Dr. Maya, to prevent soiling of the decubitus ulcer. As per last admission patient is a DNR. Patient brought to the ER by the EMS as this coccygeal wound was getting black in color with green-yellow pus from the wound. Colostomy bag otherwise working well. December 29: Lying in bed. Pleasantly confused. Does not appear to be in any distress. Getting IV cefepime and vancomycin. Patient being scheduled for debridement tomorrow. Plavix held. Medically stable for anesthesia. Eating fair December 30: Saw the patient this morning. Pending surgery. Able to answer simple questions. Getting antibiotics. Include IV Zosyn. Later this evening patient was taken down for excisional debridement of the sacral decubitus ulcer by Dr. Edgar. Debridement was performed down to the level of the sacral bone. Approximate area of 20 cm. Down to healthy tissue. December 31: Laying in bed. Comfortable. Spoke to Dr. Barcenas from ID. PICC line being arranged. He will also arrange for home antibiotics. Patient's plan to return home with his daughter. January 01: In bed. Comfortable. Holding a simple conversation. DC antibiotics to be arranged by Dr. Del Rosario. Not eating much. Ordered to assist with each meal. January 02: In bed. Comfortable. Does not like hospital food. Antibiotics for discharge per ID. Active Medications Acetaminophen (Acetaminophen Tab 325 Mg Tab) 650 mg PO Q6HR PRN PRN Reason: Mild Pain or Fever > 100.5 Hydrocodone Bitart/Acetaminophen (Hydrocodone/Apap 7.5-325mg 1 Each Tab) 1 each PO Q6HR PRN PRN Reason: Pain Last Admin: 01/03/24 10:54 Dose: 1 each Amlodipine Besylate (Amlodipine 10 Mg Tab) 10 mg PO DAILY SINDHU Last Admin: 01/03/24 08:02 Dose: 10 mg Aspirin (Aspirin 81 Mg) 81 mg PO DAILY [facility] Last Admin: 01/03/24 08:02 Dose: 81 mg Atorvastatin Calcium (Atorvastatin 80 Mg Tab) 80 mg PO HS [facility] Last Admin: 01/02/24 20:35 Dose: 80 mg Collagenase (Collagenase 250 Unit/Gm Ointment 30 Gm Tube) 1 applic TOPICAL DAILY [facility]; Protocol Last Admin: 01/03/24 08:02 Dose: 1 applic Dextrose/Water (Dextrose 50% Syringe 50 Ml) 25 ml IVP PER PROTOCOL PRN; Protocol PRN Reason: Hypoglycemia Dextrose/Water (Dextrose 50% Syringe 50 Ml) 50 ml IVP PER PROTOCOL PRN; Protocol PRN Reason: Hypoglycemia Famotidine (Famotidine 20 Mg Tab) 20 mg PO BID [facility] Last Admin: 01/03/24 08:02 Dose: 20 mg Ferrous Sulfate (Ferrous Sulfate 325 Mg Tab) 325 mg PO DAILY [facility] Last Admin: 01/03/24 08:02 Dose: 325 mg Gabapentin (Gabapentin 300 Mg Cap) 300 mg PO BID [facility] Last Admin: 01/03/24 08:03 Dose: 300 mg Glycopyrrolate (Glycopyrrolate 1 Mg Tab) 1 mg PO TID PRN PRN Reason: drooling Heparin Sodium (Porcine) (Heparin Sodium,Porcine 5,000 Unit/Ml 1 Ml Vial) 5,000 unit SQ Q8HR [facility] Last Admin: 01/03/24 15:29 Dose: 5,000 unit Hydralazine HCl (Hydralazine Hcl 10 Mg Tab) 10 mg PO TID [facility] Last Admin: 01/03/24 15:29 Dose: 10 mg Lactated Ringer's (Lactated Ringers) 1,000 mls @ 20 mls/hr IV .Q24H [facility] Last Admin: 01/03/24 08:07 Dose: 20 mls/hr Tigecycline 50 mg/ Sodium (Chloride) 100 mls @ 100 mls/hr IVPB Q12HR [facility] Last Admin: 01/03/24 08:37 Dose: 100 mls/hr Insulin Aspart (Insulin Aspart (Novolog) 100 Unit/Ml Vial) 0 unit SQ ACHS [facility]; Protocol Last Admin: 01/03/24 13:05 Dose: 2 unit Magnesium Citrate (Magnesium Citrate 296 Ml Bottle) 296 ml PO RING [facility] Last Admin: 01/03/24 08:47 Dose: 296 ml Metronidazole (Metronidazole 500 Mg Tab) 500 mg PO TID [facility]; Protocol Last Admin: 01/03/24 15:29 Dose: 500 mg Morphine Sulfate (Morphine Sulfate 4 Mg/Ml Syringe) 4 mg IV Q4HR PRN PRN Reason: Severe Pain (Scale 7 to 10) Naloxone HCl (Naloxone 0.4 Mg/Ml 1 Ml Vial) 0.2 mg IV Q2M PRN PRN Reason: Opioid Reversal Nystatin (Nystatin 100,000 Unit/Gm Powd 15 Gm) 1 applic TOPICAL BID [facility]; Protocol Last Admin: 01/03/24 08:08 Dose: 1 applic Ondansetron HCl (Ondansetron 4 Mg/2 Ml Vial) 4 mg IVP Q8HR PRN PRN Reason: Nausea And Vomiting Senna (Sennosides 8.6 Mg Tab) 8.6 mg PO DAILY [facility] Last Admin: 01/03/24 08:03 Dose: 8.6 mg Sodium Bicarbonate (Sodium Bicarbonate Tab 650 Mg Tab) 650 mg PO TID [facility] Last Admin: 01/03/24 15:29 Dose: 650 mg Spironolactone (Spironolactone 25 Mg Tab) 25 mg PO DAILY [facility] Last Admin: 01/03/24 08:02 Dose: 25 mg Tamsulosin HCl (Tamsulosin 0.4 Mg Cap.Er.24h) 0.4 mg PO DAILY [facility] Last Admin: 01/03/24 08:03 Dose: 0.4 mg Trazodone HCl (Trazodone Hcl 50 Mg Tab) 50 mg PO HS [facility] Last Admin: 01/02/24 20:35 Dose: 50 mg Valsartan (Valsartan 160 Mg Tab) 320 mg PO DAILY [facility] Last Admin: 01/03/24 08:02 Dose: 320 mg Social history: Former smoker. At home. Cared for by his daughter. Physical examination: VITAL SIGNS: 97.2, 68, 16, 108/62,, 99% room air GENERAL: Laying in bed. Comfortable EYES: [Pupils equal. Conjunctiva pale HEENT: External appearance of nose and ears normal, oral cavity less dry mucous membrane. NECK: JVD not raised; masses not palpable. HEART: First and second heart sounds are normal; no edema. LUNGS: Respiratory rate increased; decreased breath sounds. ABDOMEN: Soft, nontender, liver spleen not palpable, no masses palpable. Davidson catheter. Loop colostomy.-Soft stool PSYCH: Speaking short sentences. MUSCULOSKELETAL:No Clubbing/cyanosis;muscles-grossly intact. Sacral decubitus wound-pictures in the chart NEUROLOGICAL: [Cranial nerves grossly intact; no facial asymmetry, bilateral above-knee amputation INVESTIGATIONS, reviewed in the clinical context: January 02: White count 8.3 hemoglobin 8.7 potassium 3.6 creatinine 0.88 Wound culture: Bacteroids, acalculous species, Klebsiella pneumoniae December 30: White count 6.5 globin 8.9 platelets result 3 potassium 4.1 creatinine 0.92 December 29: White count 8.1 hemoglobin 8.3 platelets 345 sodium 138 potassium 3.9 creatinine 0.97 December 28: White count 10.3 hemoglobin 10.2 platelets 475 sodium 137 potassium 4.8 BUN 20 creatinine 0.86 glucose [address] abdomen pelvis: Gallstones. Moderate right hydropneumothorax with surrounding consolidation atelectasis. Assessment plan: # Acute on chronic infected sacral decubitus ulcer, unstageable, now presenting with darkening in color and draining pus Has had previous debridements diverting loop colostomy-November 27, [address] Sachin Maya Deep IN r debridement--December [address] Long Kingsley changed over to IV tigecycline Wound cultures growing multiple organisms. PICC line. Home antibiotics were arranged by Dr. Del Rosario -Chronic right-sided hydropneumothorax. 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 Encourage oral intake. Home antibiotics per ID. 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 Date of last positivie culture/infection: 10/28/22 MDRO Source:: Blood Past Surgical History: Heart Catheterization Additional Past Surgical History / Comment(s): bilateral great toes amputated, 2nd toe lt foot partial amputation, multiple debridements of venous ulcers, colonoscopy, surgery as a child for undescended testicle., ABOVE THE KNEE AMPUTATION RIGHT LEG (JUNE 2017-[facility]) Past Anesthesia/Blood Transfusion Reactions: No Reported Reaction Date of Last Stent Placement:: 10/17/2022 Past Psychological History: Anxiety, Depression Smoking Status: Former smoker Past Alcohol Use History: Unable to Obtain Past Drug Use History: Unable to Obtain
[2024-01-03 17:15] LABS: Glucose,Whole Blood 207 mg/dL (70-110)
[2024-01-03 19:56] LABS: Glucose,Whole Blood 248 mg/dL (70-110)
--- NOTE | 2024-01-03 22:05 | P.PN ---
Subjective Progress Note Date: 01/03/24 Principal diagnosis: Reason for follow-up is infected sacral ulcer and UTI Patient is a 73-year-old male with a past medical history significant for diabetes mellitus hypertension hyperlipidemia osteoarthritis renal disease recent admission to the hospital with sacral pressure ulcer status post surgical debridement x 2 and also have a catheter assisted UTI patient has been brought into the hospital concerning for worsening wound to the sacral area. On today's evaluation that is 01/03/2024, the patient continues to be afebrile, the patient is on room air and breathing comfortably, the Pt denies having any chest pain or cough, the patient denies having any abdominal pain no vomiting or any diarrhea has been reported by the nursing staff. Patient white count is 8.3, creatinine 0.88 OR cultures currently growing gram- negative sensitivities pending previous culture positive for Klebsiella CRE Objective - Vital Signs Vital signs: Vital Signs Temp 97.2 F L 01/03/24 12:51 Pulse 68 01/03/24 12:51 Resp 16 01/03/24 12:51 BP 108/62 01/03/24 12:51 Pulse Ox 99 01/03/24 12:51 FiO2 Intake & Output 01/02/24 01/03/24 01/03/24 18:59 06:59 18:59 Intake Total 293 1796 Output Total 375 550 700 Balance -82 -550 1096 Intake: Oral 293 1796 Output: Urine 375 500 700 Uretheral (Davidson) 700 Stool 50 Other: Voiding Method Indwelling Catheter Indwelling Catheter - Exam GENERAL DESCRIPTION: An elderly male lying in bed in no distress RESPIRATORY SYSTEM: Unlabored breathing , decreased breath sounds at bases HEART: S1 S2 regular rate and rhythm , ABDOMEN: Soft , no tenderness EXTREMITIES: Bilateral AKA stumps are currently healed - Labs CBC & Chem 7: 01/03/24 04:29 01/03/24 04:29 Labs: Abnormal Lab Results - Last 24 Hours (Table) 01/02/24 01/03/24 01/03/24 Range/Units 20:43 04:29 04:29 RBC 3.22 L (4.30-5.90) m/uL Hgb 8.7 L (13.0-17.5) gm/dL Hct 28.4 L (39.0-53.0) % MCHC 30.7 L (31.0-37.0) g/dL RDW 17.6 H (11.5-15.5) % Chloride 115 H (98-107) mmol/L Carbon Dioxide 16 L (22-30) mmol/L BUN 31 H (9-20) mg/dL Glucose 111 H (74-99) mg/dL POC Glucose (mg/dL) 223 H (70-110) mg/dL Calcium 7.7 L (8.4-10.2) mg/dL 01/03/24 01/03/24 01/03/24 Range/Units 07:24 12:28 17:14 RBC (4.30-5.90) m/uL Hgb (13.0-17.5) gm/dL Hct (39.0-53.0) % MCHC (31.0-37.0) g/dL RDW (11.5-15.5) % Chloride (98-107) mmol/L Carbon Dioxide (22-30) mmol/L BUN (9-20) mg/dL Glucose (74-99) mg/dL POC Glucose (mg/dL) 117 H 175 H 207 H (70-110) mg/dL Calcium (8.4-10.2) mg/dL Microbiology - Last 24 Hours (Table) 12/29/23 10:24 Blood Culture - Final Blood 12/29/23 10:24 Urine Culture - Final Urine,Catheterized Klebsiella pneumoniae 12/29/23 10:24 Gram Stain - Final Back Wound Culture - Final Klebsiella pneumoniae Barbie tropicalis 12/31/23 14:35 Gram Stain - Preliminary Other - Other Tissue Culture - Preliminary Gram Neg Bacilli Assessment and Plan (1) Catheter-associated urinary tract infection Current Visit: No Status: Acute Code(s): T83.511A - I/I REACT D/T INDWELLING URETHRAL CATHETER, INIT; N39.0 - URINARY TRACT INFECTION, SITE NOT SPECIFIED SNOMED Code(s): 089484010 (2) Unstageable pressure ulcer of sacral region Current Visit: No Status: Acute Code(s): L89.150 - PRESSURE ULCER OF SACRAL REGION, UNSTAGEABLE SNOMED Code(s): 15895514695039419 Plan: 1patient presented to hospital with worsening sacral pressure ulcer with a necrotic base purulent drainage reported by the daughter/home care nurse plan seen on clinical examination underlying infected pressure ulcer not have excluded patient did have a CT did not show any evidence of sacral osteomyelitis 2 patient also have a significantly positive UA in this patient with the-chronic indwelling Davidson catheter with some mental status changes possible component of catheter associated UTI not entirely excluded 3wound culture has been finalized with a CRE Klebsiella as well as bacteroids for the patient is currently covered with Tygacil and oral Flagyl, and deep OR cultures are still pending and we will wait for them to finalize but will need IV antibiotic on discharge Dictation was produced using [employer] dictation software. please excuse any grammatical, word or spelling errors. Time with Patient: Less than 30
[2024-01-04 07:27] LABS: Glucose,Whole Blood 157 mg/dL (70-110)
--- NOTE | 2024-01-04 11:50 | P.PN ---
Subjective Progress Note Date: 01/04/24 CHIEF COMPLAINT: Sacral decubitus ulcer HISTORY OF PRESENT ILLNESS: Patient is postop day #2 status post sharp excisional debridement of sacral decubitus ulcer. Patient lying in bed comfortably. No new complaints. Afebrile. Infectious disease waiting for OR cultures to finalize. OR culture preliminary reports gram-negative bacilli. Afebrile. WBC 8.3 yesterday PHYSICAL EXAM: VITAL SIGNS: Reviewed. GENERAL: no acute distress. ABDOMEN: Soft. Nondistended. Nontender. ASSESSMENT: 1. Large sacral decubitus ulcer status post debridement 2. Recent diverting colostomy on 11/27/2023 3. Diabetes mellitus PLAN: -Patient can be discharged from surgical standpoint -Continue offloading -Antibiotics per Dr. Del Rosario. They are arranging IV antibiotics outpatient -Okay to resume Plavix from surgical standpoint Physician Hot Baller note has been reviewed by physician. Signing provider agrees with the documented findings, assessment, and plan of care. Attestation Patient seen and examined at bedside. No acute events. Decubitus ulcer status postdebridement. Continue to offload. ID recommendations. No further plan for surgical intervention at this time. Leandra Lambert, Objective - Vital Signs Vital signs: Vital Signs Temp 98.5 F 01/04/24 07:17 Pulse 61 01/04/24 07:17 Resp 16 01/04/24 07:17 BP 126/57 01/04/24 07:17 Pulse Ox 99 01/04/24 07:17 FiO2 Intake & Output 01/03/24 01/04/24 01/04/24 18:59 06:59 18:59 Intake Total 6 590 Output Total 800 400 Balance 1236 190 Intake: Oral 2035 590 Output: Urine 800 400 Uretheral (Davidson) 800 Other: Voiding Method Indwelling Catheter Indwelling Catheter - Labs CBC & Chem 7: 01/03/24 04:29 01/03/24 04:29 Labs: Abnormal Lab Results - Last 24 Hours (Table) 01/03/24 01/03/24 01/03/24 Range/Units 12:28 17:14 19:55 POC Glucose (mg/dL) 175 H 207 H 248 H (70-110) mg/dL 01/04/24 Range/Units 07:25 POC Glucose (mg/dL) 157 H (70-110) mg/dL Microbiology - Last 24 Hours (Table) 12/29/23 10:24 Urine Culture - Final Urine,Catheterized Klebsiella pneumoniae 12/29/23 10:24 Blood Culture - Final Blood
[2024-01-04 12:19] LABS: Glucose,Whole Blood 166 mg/dL (70-110)
[2024-01-04 17:26] LABS: Glucose,Whole Blood 202 mg/dL (70-110)
[2024-01-04 20:32] LABS: Glucose,Whole Blood 161 mg/dL (70-110)
--- NOTE | 2024-01-04 21:26 | P.PN ---
Subjective Progress Note Date: 01/04/24 Principal diagnosis: Reason for follow-up is infected sacral ulcer and UTI Patient is a 73-year-old male with a past medical history significant for diabetes mellitus hypertension hyperlipidemia osteoarthritis renal disease recent admission to the hospital with sacral pressure ulcer status post surgical debridement x 2 and also have a catheter assisted UTI patient has been brought into the hospital concerning for worsening wound to the sacral area. On today's evaluation that is 01/04/2024, Patient is afebrile patient is currently on room air and denies having any shortness of breath, the patient denies any chest pain or cough, the patient denies any nausea vomiting did not have any abdominal pain and no diarrhea still complaining of pain to the sacral wound area asking for more pain medication. No new lab has been obtained today or cultures growing gram-negative bacilli with ID sensitivities pending Objective - Vital Signs Vital signs: Vital Signs Temp 98.8 F 01/04/24 12:17 Pulse 74 01/04/24 12:17 Resp 18 01/04/24 12:17 BP 123/70 01/04/24 12:17 Pulse Ox 100 01/04/24 12:17 FiO2 Intake & Output 01/03/24 01/04/24 01/04/24 18:59 06:59 18:59 Intake Total 2036 590 Output Total 800 400 Balance 1236 190 Intake: Oral 2035 590 Output: Urine 800 400 Uretheral (Davidson) 800 Other: Voiding Method Indwelling Catheter Indwelling Catheter - Exam Elderly male up in the chair in no distress No tachypnea or accessory muscle respiration use Unlabored breathing Bilateral AKA stumps are currently healed wound is dressed - Labs CBC & Chem 7: 01/03/24 04:29 01/03/24 04:29 Labs: Abnormal Lab Results - Last 24 Hours (Table) 01/03/24 01/03/24 01/04/24 Range/Units 17:14 19:55 07:25 POC Glucose (mg/dL) 207 H 248 H 157 H (70-110) mg/dL 01/04/24 Range/Units 12:18 POC Glucose (mg/dL) 166 H (70-110) mg/dL Microbiology - Last 24 Hours (Table) 12/29/23 10:24 Urine Culture - Final Urine,Catheterized Klebsiella pneumoniae 12/29/23 10:24 Blood Culture - Final Blood Assessment and Plan (1) Catheter-associated urinary tract infection Current Visit: No Status: Acute Code(s): T83.511A - I/I REACT D/T INDWELLING URETHRAL CATHETER, INIT; N39.0 - URINARY TRACT INFECTION, SITE NOT SPECIFIED SNOMED Code(s): 450464158 (2) Unstageable pressure ulcer of sacral region Current Visit: No Status: Acute Code(s): L89.150 - PRESSURE ULCER OF SACRAL REGION, UNSTAGEABLE SNOMED Code(s): 84285551062602339 Plan: 1patient presented to hospital with worsening sacral pressure ulcer with a necrotic base purulent drainage reported by the daughter/home care nurse plan seen on clinical examination underlying infected pressure ulcer not have excluded patient did have a CT did not show any evidence of sacral osteomyelitis 2 patient also have a significantly positive UA in this patient with the-chronic indwelling Davidson catheter with some mental status changes possible component of catheter associated UTI not entirely excluded 3supervision wound culture has been finalized with a CRE Klebsiella as well as bacteroids, who is still waiting for the deep wound culture to be finalized for now continue with Tygacil and oral Flagyl, with the discharge antibiotic on the basis of final deep culture discussed with the nursing staff Dictation was produced using [employer] dictation software. please excuse any grammatical, word or spelling errors. Time with Patient: Less than 30
--- NOTE | 2024-01-04 21:58 | P.PN ---
Progress Note - Text Progress Note Date: 01/04/24 Chief Complaint: Decub ulcer Patient is a 73-year-old male with PMH of IDDM, hypertension, CKD stage II, chronic indwelling Davidson catheter, systolic CHF with ejection fraction of 40 to 45%, dementia, COPD with chronic hypoxemic respiratory failure not on home oxygen and bilateral AKA was sent to the hospital for sacral decubitus ulcers. Patient has dementia and is not able to provide any reasonable history . November 27, 2023 patient underwent loop colostomy by Dr. Maya, to prevent soiling of the decubitus ulcer. As per last admission patient is a DNR. Patient brought to the ER by the EMS as this coccygeal wound was getting black in color with green-yellow pus from the wound. Colostomy bag otherwise working well. December 29: Lying in bed. Pleasantly confused. Does not appear to be in any distress. Getting IV cefepime and vancomycin. Patient being scheduled for debridement tomorrow. Plavix held. Medically stable for anesthesia. Eating fair December 30: Saw the patient this morning. Pending surgery. Able to answer simple questions. Getting antibiotics. Include IV Zosyn. Later this evening patient was taken down for excisional debridement of the sacral decubitus ulcer by Dr. Edgar. Debridement was performed down to the level of the sacral bone. Approximate area of 20 cm. Down to healthy tissue. December 31: Laying in bed. Comfortable. Spoke to Dr. Barcenas from ID. PICC line being arranged. He will also arrange for home antibiotics. Patient's plan to return home with his daughter. January 01: In bed. Comfortable. Holding a simple conversation. DC antibiotics to be arranged by Dr. Del Rosario. Not eating much. Ordered to assist with each meal. January 02: In bed. Comfortable. Does not like hospital food. Antibiotics for discharge per ID. January 03: Patient comfortable. Holding conversations. Eating some. ID w aiting for deep wound cultures. DC antibiotics accordingly Active Medications Acetaminophen (Acetaminophen Tab 325 Mg Tab) 650 mg PO Q6HR PRN PRN Reason: Mild Pain or Fever > 100.5 Hydrocodone Bitart/Acetaminophen (Hydrocodone/Apap 7.5-325mg 1 Each Tab) 1 each PO Q6HR PRN PRN Reason: Pain Last Admin: 01/04/24 16:09 Dose: 1 each Amlodipine Besylate (Amlodipine 10 Mg Tab) 10 mg PO DAILY [facility] Last Admin: 01/04/24 08:53 Dose: 10 mg Aspirin (Aspirin 81 Mg) 81 mg PO DAILY [facility] Last Admin: 01/04/24 08:54 Dose: 81 mg Atorvastatin Calcium (Atorvastatin 80 Mg Tab) 80 mg PO HS [facility] Last Admin: 01/04/24 20:35 Dose: 80 mg Collagenase (Collagenase 250 Unit/Gm Ointment 30 Gm Tube) 1 applic TOPICAL DAILY [facility]; Protocol Last Admin: 01/04/24 16:09 Dose: 1 applic Dextrose/Water (Dextrose 50% Syringe 50 Ml) 25 ml IVP PER PROTOCOL PRN; Protocol PRN Reason: Hypoglycemia Dextrose/Water (Dextrose 50% Syringe 50 Ml) 50 ml IVP PER PROTOCOL PRN; Protocol PRN Reason: Hypoglycemia Famotidine (Famotidine 20 Mg Tab) 20 mg PO BID [facility] Last Admin: 01/04/24 20:35 Dose: 20 mg Ferrous Sulfate (Ferrous Sulfate 325 Mg Tab) 325 mg PO DAILY [facility] Last Admin: 01/04/24 08:54 Dose: 325 mg Gabapentin (Gabapentin 300 Mg Cap) 300 mg PO BID [facility] Last Admin: 01/04/24 20:35 Dose: 300 mg Glycopyrrolate (Glycopyrrolate 1 Mg Tab) 1 mg PO TID PRN PRN Reason: drooling Heparin Sodium (Porcine) (Heparin Sodium,Porcine 5,000 Unit/Ml 1 Ml Vial) 5,000 unit SQ Q8HR [facility] Last Admin: 01/04/24 16:09 Dose: 5,000 unit Hydralazine HCl (Hydralazine Hcl 10 Mg Tab) 10 mg PO TID [facility] Last Admin: 01/04/24 20:35 Dose: 10 mg Lactated Ringer's (Lactated Ringers) 1,000 mls @ 20 mls/hr IV .Q24H [facility] Last Admin: 01/04/24 10:11 Dose: Not Given Tigecycline 50 mg/ Sodium (Chloride) 100 mls @ 100 mls/hr IVPB Q12HR [facility] Last Admin: 01/04/24 20:36 Dose: 100 mls/hr Insulin Aspart (Insulin Aspart (Novolog) 100 Unit/Ml Vial) 0 unit SQ ACHS [facility]; Protocol Last Admin: 01/04/24 20:36 Dose: 2 unit Magnesium Citrate (Magnesium Citrate 296 Ml Bottle) 296 ml PO RING [facility] Last Admin: 01/03/24 08:47 Dose: 296 ml Metronidazole (Metronidazole 500 Mg Tab) 500 mg PO TID [facility]; Protocol Last Admin: 01/04/24 20:35 Dose: 500 mg Morphine Sulfate (Morphine Sulfate 4 Mg/Ml Syringe) 4 mg IV Q4HR PRN PRN Reason: Severe Pain (Scale 7 to 10) Naloxone HCl (Naloxone 0.4 Mg/Ml 1 Ml Vial) 0.2 mg IV Q2M PRN PRN Reason: Opioid Reversal Nystatin (Nystatin 100,000 Unit/Gm Powd 15 Gm) 1 applic TOPICAL BID [facility]; Protocol Last Admin: 01/04/24 20:35 Dose: 1 applic Ondansetron HCl (Ondansetron 4 Mg/2 Ml Vial) 4 mg IVP Q8HR PRN PRN Reason: Nausea And Vomiting Senna (Sennosides 8.6 Mg Tab) 8.6 mg PO DAILY [facility] Last Admin: 01/04/24 08:53 Dose: 8.6 mg Sodium Bicarbonate (Sodium Bicarbonate Tab 650 Mg Tab) 650 mg PO TID [facility] Last Admin: 01/04/24 20:35 Dose: 650 mg Spironolactone (Spironolactone 25 Mg Tab) 25 mg PO DAILY [facility] Last Admin: 01/04/24 08:53 Dose: 25 mg Tamsulosin HCl (Tamsulosin 0.4 Mg Cap.Er.24h) 0.4 mg PO DAILY [facility] Last Admin: 01/04/24 08:54 Dose: 0.4 mg Trazodone HCl (Trazodone Hcl 50 Mg Tab) 50 mg PO HS [facility] Last Admin: 01/04/24 20:35 Dose: 50 mg Valsartan (Valsartan 160 Mg Tab) 320 mg PO DAILY [facility] Last Admin: 01/04/24 08:54 Dose: 320 mg Social history: Former smoker. At home. Cared for by his daughter. Physical examination: VITAL SIGNS: 98.8, 74, 18, 123 x 70, 100% room air GENERAL: Laying in bed. Comfortable EYES: [Pupils equal. Conjunctiva pale HEENT: External appearance of nose and ears normal, oral cavity less dry mucous membrane. NECK: JVD not raised; masses not palpable. HEART: First and second heart sounds are normal; no edema. LUNGS: Respiratory rate increased; decreased breath sounds. ABDOMEN: Soft, nontender, liver spleen not palpable, no masses palpable. Davidson catheter. Loop colostomy.-Soft stool PSYCH: Speaking simple sentences MUSCULOSKELETAL:No Clubbing/cyanosis;muscles-grossly intact. Sacral decubitus wound-pictures in the chart NEUROLOGICAL: [Cranial nerves grossly intact; no facial asymmetry, bilateral above-knee amputation INVESTIGATIONS, reviewed in the clinical context: January 02: White count 8.3 hemoglobin 8.7 potassium 3.6 creatinine 0.88 Wound culture: Bacteroids, acalculous species, Klebsiella pneumoniae December 30: White count 6.5 globin 8.9 platelets result 3 potassium 4.1 creatinine 0.92 December 29: White count 8.1 hemoglobin 8.3 platelets 345 sodium 138 potassium 3.9 creatinine 0.97 December 28: White count 10.3 hemoglobin 10.2 platelets 475 sodium 137 potassium 4.8 BUN 20 creatinine 0.86 glucose [address] abdomen pelvis: Gallstones. Moderate right hydropneumothorax with surrounding consolidation atelectasis. Assessment plan: # Acute on chronic infected sacral decubitus ulcer, unstageable, now presenting with darkening in color and draining pus Has had previous debridements diverting loop colostomy-November 27, [address] Sachin Maya Deep IN r debridement--December [address] Long Kingsley changed over to IV tigecycline Deep wound cultures pending to be finalized so Dr. Barcenas can decide about DC antibiotics PICC line. -Chronic right-sided hydropneumothorax. 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 Antibiotics will DC accordingly 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 Date of last positivie culture/infection: 10/28/22 MDRO Source:: Blood Past Surgical History: Heart Catheterization Additional Past Surgical History / Comment(s): bilateral great toes amputated, 2nd toe lt foot partial amputation, multiple debridements of venous ulcers, colonoscopy, surgery as a child for undescended testicle., ABOVE THE KNEE AMPUTATION RIGHT LEG (JUNE 2017-[facility]) Past Anesthesia/Blood Transfusion Reactions: No Reported Reaction Date of Last Stent Placement:: 10/17/2022 Past Psychological History: Anxiety, Depression Smoking Status: Former smoker Past Alcohol Use History: Unable to Obtain Past Drug Use History: Unable to Obtain
[2024-01-05 07:17] LABS: Glucose,Whole Blood 115 mg/dL (70-110)
[2024-01-05] MEDS: MORPHINE SULFATE 4 MG/ML SYRINGE IV PRN (10:18)
[2024-01-05 12:25] LABS: Glucose,Whole Blood 136 mg/dL (70-110)
--- NOTE | 2024-01-05 12:31 | P.PN ---
Subjective Progress Note Date: 01/05/24 CHIEF COMPLAINT: Sacral decubitus ulcer HISTORY OF PRESENT ILLNESS: Patient is postop day #3 status post sharp excisional debridement of sacral decubitus ulcer. Patient lying in bed comfortably. No new complaints. Afebrile. PHYSICAL EXAM: VITAL SIGNS: Reviewed. GENERAL: no acute distress. ABDOMEN: Soft. Nondistended. Nontender. Ostomy with stool present ASSESSMENT: 1. Large sacral decubitus ulcer status post debridement 2. Recent diverting colostomy on 11/27/2023 3. Diabetes mellitus PLAN: -Patient can be discharged from surgical standpoint -Continue offloading -Discharge antibiotics per infectious disease Physician Brickmason Supervisor note has been reviewed by physician. Signing provider agrees with the documented findings, assessment, and plan of care. Objective - Vital Signs Vital signs: Vital Signs Temp 97.7 F 01/05/24 08:00 Pulse 54 L 01/05/24 08:00 Resp 20 01/05/24 08:00 BP 129/58 01/05/24 08:00 Pulse Ox 100 01/05/24 08:00 FiO2 Intake & Output 01/04/24 01/05/24 01/05/24 18:59 06:59 18:59 Intake Total 480 Output Total 650 650 Balance -650 -650 480 Intake: Oral 480 Output: Urine 650 650 Other: Voiding Method Indwelling Catheter Indwelling Catheter # Voids 1 # Bowel Movements 1 - Labs CBC & Chem 7: 01/03/24 04:29 01/03/24 04:29 Labs: Abnormal Lab Results - Last 24 Hours (Table) 01/04/24 01/04/24 01/05/24 Range/Units 17:25 20:30 07:15 POC Glucose (mg/dL) 202 H 161 H 115 H (70-110) mg/dL 01/05/24 Range/Units 12:24 POC Glucose (mg/dL) 136 H (70-110) mg/dL Microbiology - Last 24 Hours (Table) 12/31/23 14:35 Gram Stain - Preliminary Other - Other Tissue Culture - Preliminary Klebsiella pneumoniae 12/31/23 14:35 Anaerobic Culture - Final Other - Other Anaerobic Gm Positive Bacill Assessment and Plan Assessment: 73 yo male w/ diverting colostomy -ostomy flush with skin -continue wound care will keep red rubber catheter in to protect from further retraction stable or discharge Time with Patient: Less than 30
[2024-01-05 13:21] VITALS: PULSE 75; RESP 16; TEMP 98.4
--- NOTE | 2024-01-05 15:41 | P.PN ---
Subjective Progress Note Date: 01/05/24 Principal diagnosis: Reason for follow-up is infected sacral ulcer and UTI Patient is a 73-year-old male with a past medical history significant for diabetes mellitus hypertension hyperlipidemia osteoarthritis renal disease recent admission to the hospital with sacral pressure ulcer status post surgical debridement x 2 and also have a catheter assisted UTI patient has been brought into the hospital concerning for worsening wound to the sacral area. On today's evaluation that is 01/05/2024, patient has been afebrile, patient is breathing comfortably and is currently on room air, patient denies having any significant cough no chest pain, patient denies nausea vomiting or diarrhea and no abdominal pain still coming up into the sacral wound but no worsening. No new lab has been obtained today OR culture done has been finalized with ESBL Klebsiella compared to previous culture that was reported as a CRE Klebsiella along with anaerobe gram-negative bacilli Objective - Vital Signs Vital signs: Vital Signs Temp 97.7 F 01/05/24 08:00 Pulse 54 L 01/05/24 08:00 Resp 20 01/05/24 08:00 BP 129/58 01/05/24 08:00 Pulse Ox 100 01/05/24 08:00 FiO2 Intake & Output 01/04/24 01/05/24 01/05/24 18:59 06:59 18:59 Intake Total 480 Output Total 650 650 Balance -650 -650 480 Intake: Oral 480 Output: Urine 650 650 Other: Voiding Method Indwelling Catheter Indwelling Catheter # Voids 1 # Bowel Movements 1 - Exam Elderly male up in the chair in no distress No tachypnea or accessory muscle respiration use Unlabored breathing Bilateral AKA stumps are currently healed wound is dressed - Labs CBC & Chem 7: 01/03/24 04:29 01/03/24 04:29 Labs: Abnormal Lab Results - Last 24 Hours (Table) 01/04/24 01/04/24 01/05/24 Range/Units 17:25 20:30 07:15 POC Glucose (mg/dL) 202 H 161 H 115 H (70-110) mg/dL 01/05/24 Range/Units 12:24 POC Glucose (mg/dL) 136 H (70-110) mg/dL Microbiology - Last 24 Hours (Table) 12/31/23 14:35 Gram Stain - Preliminary Other - Other Tissue Culture - Preliminary Klebsiella pneumoniae 12/31/23 14:35 Anaerobic Culture - Final Other - Other Anaerobic Gm Positive Bacill Assessment and Plan (1) Catheter-associated urinary tract infection Current Visit: No Status: Acute Code(s): T83.511A - I/I REACT D/T INDWELLING URETHRAL CATHETER, INIT; N39.0 - URINARY TRACT INFECTION, SITE NOT SPECIFIED SNOMED Code(s): 676341691 (2) Unstageable pressure ulcer of sacral region Current Visit: No Status: Acute Code(s): L89.150 - PRESSURE ULCER OF SACRAL REGION, UNSTAGEABLE SNOMED Code(s): 01069816630387143 Plan: 1patient presented to hospital with worsening sacral pressure ulcer with a necrotic base purulent drainage reported by the daughter/home care nurse plan seen on clinical examination underlying infected pressure ulcer not have excluded patient did have a CT did not show any evidence of sacral osteomyelitis 2 patient also have a significantly positive UA in this patient with the-chronic indwelling Davidson catheter with some mental status changes possible component of catheter associated UTI not entirely excluded 3patient OR culture have been finalized with ESBL Klebsiella rather than CRE Klebsiella that was reported previously on superficial culture on the basis of deep culture which are more likely pathogenic suggestive of his infection we will switch antibiotic to Invanz 1 g daily updated prescription has been provided to the disease case manager Dictation was produced using [employer] software. please excuse any grammatical, word or spelling errors. Time with Patient: Less than 30
[2024-01-05 15:49] VITALS: BP 110/50
[2024-01-05] MEDS: ERTAPENEM 1 GM in SODIUM CHLORIDE 0.9% 50 ML IVPB SCH (15:49)
[2024-01-05 17:03] LABS: Glucose,Whole Blood 180 mg/dL (70-110)
--- NOTE | 2024-01-05 20:34 | P.DS ---
Providers Date of admission: 12/29/23 13:23 Expected date of discharge: 01/05/24 Attending physician: Gerson Banks Consults: 12/29/23 13:21 Consult Physician Routine Consulting Provider: Sachin Maya Consult Reason/Comments: decubitis ulcer Do you want consulting provider notified?: Yes Consult Physician Routine Consulting Provider: Juan Del Rosario Consult Reason/Comments: uti, infected decubitis ulcer Do you want consulting provider notified?: Yes 12/29/23 15:22 Consult Physician Routine Consulting Provider: Aileen Ramirez Consult Reason/Comments: Mally perioperative pulmonary management Do you want consulting provider notified?: Yes Primary care physician: Kei Rene MD Hospital Course: Chief Complaint: Decub ulcer Patient is a 73-year-old male with PMH of IDDM, hypertension, CKD stage II, chronic indwelling Davidson catheter, systolic CHF with ejection fraction of 40 to 45%, dementia, COPD with chronic hypoxemic respiratory failure not on home oxygen and bilateral AKA was sent to the hospital for sacral decubitus ulcers. Patient has dementia and is not able to provide any reasonable history . November 27, 2023 patient underwent loop colostomy by Dr. Maya, to prevent soiling of the decubitus ulcer. As per last admission patient is a DNR. Patient brought to the ER by the EMS as this coccygeal wound was getting black in color with green-yellow pus from the wound. Colostomy bag otherwise working well. December 29: Lying in bed. Pleasantly confused. Does not appear to be in any distress. Getting IV cefepime and vancomycin. Patient being scheduled for debridement tomorrow. Plavix held. Medically stable for anesthesia. Eating fair December 30: Saw the patient this morning. Pending surgery. Able to answer simple questions. Getting antibiotics. Include IV Zosyn. Later this evening patient was taken down for excisional debridement of the sacral decubitus ulcer by Dr. Edgar. Debridement was performed down to the level of the sacral bone. Approximate area of 20 cm. Down to healthy tissue. December 31: Laying in bed. Comfortable. Spoke to Dr. Barcenas from ID. PICC line being arranged. He will also arrange for home antibiotics. Patient's plan to return home with his daughter. January 01: In bed. Comfortable. Holding a simple conversation. DC antibiotics to be arranged by Dr. Del Rosario. Not eating much. Ordered to assist with each meal. January 02: In bed. Comfortable. Does not like hospital food. Antibiotics for discharge per ID. January 03: Patient comfortable. Holding conversations. Eating some. ID waiting for deep wound cultures. DC antibiotics accordingly January 04: Laying in bed. Comfortable. Daughter at the bedside. Patient is able to answer questions simple. I reached out to medical billing coordinator Dr. Greco as this morning still culture results are pending. They did come back later this afternoon.Showing Klebsiella pneumoniae with ESBL. Reached out to Dr. Barcenas from ID. Patient was placed on ertapenem. And Flagyl. Communicated with the case maker. And nursing staff. Patient finally will be discharged. Did talk to the daughter about the CODE STATUS. She informed one of the home care nurses informed her that making the patient DNR will likely affect the care of the patient. I did reinforce that that should not be the case and is improper. Daughter is also try to get guardianship. Patient this point remains full code. Discussion and discharge planning more than 35 minutes Social history: Former smoker. At home. Cared for by his daughter. Physical examination: VITAL SIGNS: 98.4, 75, 16, 105 x 62, 99% room air GENERAL: Laying in bed. Comfortable EYES: [Pupils equal. Conjunctiva pale HEENT: External appearance of nose and ears normal, oral cavity less dry mucous membrane. NECK: JVD not raised; masses not palpable. HEART: First and second heart sounds are normal; no edema. LUNGS: Respiratory rate increased; decreased breath sounds. ABDOMEN: Soft, nontender, liver spleen not palpable, no masses palpable. Davidson catheter. Loop colostomy.-Soft stool PSYCH: Speaking simple sentences MUSCULOSKELETAL:No Clubbing/cyanosis;muscles-grossly intact. Sacral decubitus wound-pictures in the chart NEUROLOGICAL: [Cranial nerves grossly intact; no facial asymmetry, bilateral above-knee amputation INVESTIGATIONS, reviewed in the clinical context: January 02: White count 8.3 hemoglobin 8.7 potassium 3.6 creatinine 0.88 Wound culture: Bacteroids, acalculous species, Klebsiella pneumoniae December 30: White count 6.5 globin 8.9 platelets result 3 potassium 4.1 creatinine 0.92 December 29: White count 8.1 hemoglobin 8.3 platelets 345 sodium 138 potassium 3.9 creatinine 0.97 October 15: White count 10.3 hemoglobin 10.2 platelets 475 sodium 137 potassium 4.8 BUN 20 creatinine 0.86 glucose [address] abdomen pelvis: Gallstones. Moderate right hydropneumothorax with surrounding consolidation atelectasis. Assessment plan: # Acute on chronic infected sacral decubitus ulcer, unstageable, now presenting with darkening in color and draining pus Has had previous debridements diverting loop colostomy-November 27, [address] Sachin Maya Deep IN r debridement--December [address] Alves IV Zosyn changed over to IV tigecycline Deep wound cultures-patient to be discharged on IV Invanz 1 g every 24 hours 40 doses, Flagyl 5 mg 3 times daily for 14 days. Santyl topical daily. PICC line. -Chronic right-sided hydropneumothorax. 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 Daughter will further clarify this currently full code Disposition: Home 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 Date of last positivie culture/infection: 10/28/22 MDRO Source:: Blood Past Surgical History: Heart Catheterization Additional Past Surgical History / Comment(s): bilateral great toes amputated, 2nd toe lt foot partial amputation, multiple debridements of venous ulcers, colonoscopy, surgery as a child for undescended testicle., ABOVE THE KNEE AMPUTATION RIGHT LEG (JUNE 2017-[facility]) Past Anesthesia/Blood Transfusion Reactions: No Reported Reaction Date of Last Stent Placement:: 10/17/2022 Past Psychological History: Anxiety, Depression Smoking Status: Former smoker Past Alcohol Use History: Unable to Obtain Past Drug Use History: Unable to Obtain Plan - Discharge Summary Discharge Rx Participant: Yes New Discharge Prescriptions: New Nystatin 100,000 Unit/gm Powd [Mycostatin Powder] 1 applic TOPICAL BID each Sodium Bicarbonate Tab 650 mg PO BID #60 tab metroNIDAZOLE [Flagyl] 500 mg PO TID #120 tab Collagenase [Santyl Ointment] 1 applic TOPICAL DAILY #30 gm Ertapenem [INVanz] 1 gm IVPB Q24H #40 each Continue traZODone HCL 50 mg PO HS Sennosides [Senokot] 8.6 mg PO DAILY Insulin Lispro [humaLOG Kwikpen] See Protocol SQ AC-TID Spironolactone [Aldactone] 25 mg PO DAILY tab Ferrous Sulfate [Iron (65 MG Elemental)] 325 mg PO DAILY Gabapentin [Neurontin] 300 mg PO BID Insulin Glargine,Hum.rec.anlog [Lantus Solostar Pen] 12 units SQ HS Magnesium Citrate [Citrate of Magnesia] 296 ml PO RING Aspirin 81 mg PO DAILY hydrALAZINE HCL 10 mg PO TID Tamsulosin [Flomax] 0.4 mg PO DAILY amLODIPine [Norvasc] 10 mg PO DAILY #30 tab Glycopyrrolate 1 mg PO TID PRN PRN Reason: drooling Clopidogrel [Plavix] 75 mg PO DAILY Atorvastatin Calcium [Lipitor] 80 mg PO HS Valsartan [Diovan] 320 mg PO DAILY tab HYDROcodone/APAP 7.5-325MG [[place] 7.5-325] 1 tab PO Q6HR PRN #12 tab PRN Reason: Pain Acetaminophen Tab [Tylenol] 500 mg PO Q6H PRN PRN Reason: Pain Famotidine [Pepcid] 20 mg PO BID Discharge Medication List traZODone HCL 50 mg PO HS 11/09/17 [History] Tamsulosin [Flomax] 0.4 mg PO DAILY 09/29/22 [History] amLODIPine [Norvasc] 10 mg PO DAILY #30 tab 07/03/23 [Rx] Clopidogrel [Plavix] 75 mg PO DAILY 10/02/23 [History] Glycopyrrolate 1 mg PO TID PRN 10/02/23 [History] Sennosides [Senokot] 8.6 mg PO DAILY 10/02/23 [History] Atorvastatin Calcium [Lipitor] 80 mg PO HS 11/10/23 [History] Insulin Lispro [humaLOG Kwikpen] See Protocol SQ AC-TID 11/10/23 [History] HYDROcodone/APAP 7.5-325MG [[place] 7.5-325] 1 tab PO Q6HR PRN #12 tab 12/02/23 [Rx] Spironolactone [Aldactone] 25 mg PO DAILY tab 12/02/23 [Rx] Valsartan [Diovan] 320 mg PO DAILY tab 12/02/23 [Rx] Acetaminophen Tab [Tylenol] 500 mg PO Q6H PRN 12/29/23 [History] Aspirin 81 mg PO DAILY 12/29/23 [History] Famotidine [Pepcid] 20 mg PO BID 12/29/23 [History] Ferrous Sulfate [Iron (65 MG Elemental)] 325 mg PO DAILY 12/29/23 [History] Gabapentin [Neurontin] 300 mg PO BID 12/29/23 [History] Insulin Glargine,Hum.rec.anlog [Lantus Solostar Pen] 12 units SQ HS 12/29/23 [History] Magnesium Citrate [Citrate of Magnesia] 296 ml PO RING 12/29/23 [History] hydrALAZINE HCL 10 mg PO TID 12/29/23 [History] Nystatin 100,000 Unit/gm Powd [Mycostatin Powder] 1 applic TOPICAL BID each 01/04/24 [Rx] Sodium Bicarbonate Tab 650 mg PO BID #60 tab 01/04/24 [Rx] Collagenase [Santyl Ointment] 1 applic TOPICAL DAILY #30 gm 01/05/24 [Rx] Ertapenem [INVanz] 1 gm IVPB Q24H #40 each 01/05/24 [Rx] metroNIDAZOLE [Flagyl] 500 mg PO TID #120 tab 01/05/24 [Rx] Follow up Appointment(s)/Referral(s): Kei Rene MD [Primary Care Provider] - 1 Week [facility] [NON-STAFF] - 1 Week [facility], [REFERRING] - 1 Week Juan Del Rosario MD [STAFF PHYSICIAN] - 1 Week Patient Instructions/Handouts: Metronidazole (By mouth), Ertapenem (By inject ion), Collagenase (On the skin), Sodium Bicarbonate (By mouth), Urinary Tract Infection in Men (DC), Davidson Catheter Placement and Care (DC), CRE (Carbapenem Resistant Enterobacteriaceae) (DC) Activity/Diet/Wound Care/Special Instructions: Ostomy: 1 piece Vicky appliance #[id number] with a 2" Renaldo ring [id number]; changed every 3 to 5 days and if leaking; empty when half full. Lubricating deodorant #[id number] Barrier extenders 3 per change #[id number] Last changed: 01/05/24 Santyl ointment (Collagenase) to sacral wound daily with wet to dry dressing (changed 01/05/24 at 1:15pm) IV antibiotic - Invanz IV every 24 hours (given 01/05/24 at 3:50pm) Discharge Disposition: HOME WITH HOME HEALTH SERVICES
== END 2024-01-05 20:14 | disposition home health service (06) | DRG 981 ==
LOC: EC 10:03 → SUPCPDRO 10:03 → 5NMEDONC 13:23
PROVIDERS: ADMIT Hospitalist; ATTEND Hospitalist
PROC: 0QB10ZZ Excision of Sacrum, Open Approach (ICD-10-PCS; principal; 2023-12-31 12:05)
PROC: 02HV33Z Insertion of Infusion Device into Superior Vena Cava, Percutaneous Approach (ICD-10-PCS; 2024-01-01)
DX: I96 Gangrene, not elsewhere classified (principal); L89.154 Pressure ulcer of sacral region, stage 4; I13.0 Hypertensive heart and chronic kidney disease with heart failure and stage 1 through stage 4 chronic kidney disease, or unspecified chronic kidney disease; N39.0 Urinary tract infection, site not specified; I50.22 Chronic systolic (congestive) heart failure; J96.11 Chronic respiratory failure with hypoxia; J94.8 Other specified pleural conditions; T83.518A Infection and inflammatory reaction due to other urinary catheter, initial encounter; E78.5 Hyperlipidemia, unspecified; E11.22 Type 2 diabetes mellitus with diabetic chronic kidney disease; E11.42 Type 2 diabetes mellitus with diabetic polyneuropathy; Z66 Do not resuscitate; F32.A Depression, unspecified; I87.8 Other specified disorders of veins; M19.041 Primary osteoarthritis, right hand; M19.042 Primary osteoarthritis, left hand; Y84.6 Urinary catheterization as the cause of abnormal reaction of the patient, or of later complication, without mention of misadventure at the time of the procedure; F03.90 Unspecified dementia, unspecified severity, without behavioral disturbance, psychotic disturbance, mood disturbance, and anxiety; B96.1 Klebsiella pneumoniae [K. pneumoniae] as the cause of diseases classified elsewhere; K21.9 Gastro-esophageal reflux disease without esophagitis; R91.1 Solitary pulmonary nodule; K80.20 Calculus of gallbladder without cholecystitis without obstruction; N18.2 Chronic kidney disease, stage 2 (mild); F41.9 Anxiety disorder, unspecified; Z89.612 Acquired absence of left leg above knee; Z89.611 Acquired absence of right leg above knee; Z93.3 Colostomy status; Z87.891 Personal history of nicotine dependence; Z79.02 Long term (current) use of antithrombotics/antiplatelets; Z79.4 Long term (current) use of insulin; Z79.82 Long term (current) use of aspirin; Z79.899 Other long term (current) drug therapy
CPT/HCPCS: 36415; 36573; 51702; 71045; 74177; 80048; 80053; 81001; 83605; 85025; 85610; 85730; 86850; 86900; 86901; 87040; 87070; 87075; 87077; 87086; 87186; 87205; 96361; 96365; 96366; 96367; 96375; 99285

== ENCOUNTER 2024-01-18 16:51 | Inpatient (IN) | payer MEDICARE ==
--- NOTE | 2024-01-18 17:15 | ED ---
Weakness HPI - General Chief complaint: Weakness Stated complaint: Lethargy,Low Hemoglobin Time Seen by Provider: 01/18/24 16:55 Source: EMS Mode of arrival: EMS Limitations: altered mental status - History of Present Illness Initial comments: This patient is a 73-year-old man with history of diabetes and bilateral lower extremity amputations. Patient currently being treated for infected sacral decubitus ulcer. The patient had some lab testing as an outpatient yesterday. He was reported to have hemoglobin less than 8 and given that and the fact that he was less active and seeming what they called lethargic EMS was called. When I interviewed the patient, he is complaining of pain at the sacral decubitus ulcer. He denies dyspnea. He states that he is thirsty and requesting water. Patient does recognize she is in the hospital but disoriented to date. MD Complaint: generalized weakness, lack of energy Onset/Timin -: days(s) Location: generalized Consistency: constant Improves with: none Worsens with: none Associated Symptoms: denies other symptoms - Related Data Home Medications Medication Instructions Recorded Confirmed traZODone HCL 50 mg PO HS 11/09/17 01/19/24 Tamsulosin [Flomax] 0.4 mg PO DAILY 09/29/22 01/19/24 Clopidogrel [Plavix] 75 mg PO DAILY 10/02/23 01/19/24 Glycopyrrolate 1 mg PO TID PRN 10/02/23 01/19/24 Sennosides [Senokot] 8.6 mg PO DAILY 10/02/23 01/19/24 Atorvastatin Calcium [Lipitor] 80 mg PO HS 11/10/23 01/19/24 Insulin Lispro [humaLOG Kwikpen] See Protocol SQ AC-TID 11/10/23 01/19/24 Acetaminophen Tab [Tylenol] 500 mg PO Q6H PRN 12/29/23 01/19/24 Aspirin 81 mg PO DAILY 12/29/23 01/19/24 Famotidine [Pepcid] 20 mg PO BID 12/29/23 01/19/24 Ferrous Sulfate [Iron (65 MG 325 mg PO DAILY 12/29/23 01/19/24 Elemental)] Gabapentin [Neurontin] 300 mg PO BID 12/29/23 01/19/24 Insulin Glargine,Hum.rec.anlog 12 units SQ HS 12/29/23 01/19/24 [Lantus Solostar Pen] Magnesium Citrate [Citrate of 296 ml PO RING 12/29/23 01/19/24 Magnesia] LORazepam [Ativan] 0.5 mg PO TID PRN 01/19/24 01/19/24 Valsartan [Diovan] 320 mg PO DAILY 01/19/24 01/19/24 Previous Rx's Medication Instructions Recorded HYDROcodone/APAP 7.5-325MG [[place] 1 tab PO Q6HR PRN #12 tab 12/02/23 7.5-325] Spironolactone [Aldactone] 25 mg PO DAILY tab 12/02/23 Nystatin 100,000 Unit/gm Powd 1 applic TOPICAL BID each 01/04/24 [Mycostatin Powder] Sodium Bicarbonate Tab 650 mg PO BID #60 tab 01/04/24 Collagenase [Santyl Ointment] 1 applic TOPICAL DAILY #30 gm 01/05/24 Ertapenem [INVanz] 1 gm IVPB Q24H #40 each 01/05/24 metroNIDAZOLE [Flagyl] 500 mg PO TID #120 tab 01/05/24 amLODIPine [Norvasc] 5 mg PO BID #30 tab 01/25/24 Allergies Allergy/AdvReac Type Severity Reaction Status Date / Time No Known Allergies Allergy Verified 01/19/24 10:06 Review of Systems ROS Statement: Those systems with pertinent positive or pertinent negative responses have been documented in the HPI. ROS Other: All systems not noted in ROS Statement are negative. Limitations: ROS unobtainable due to patients medical condition Constitutional: Reports: weakness. Denies: fever, chills Eyes: Denies: vision change Respiratory: Denies: cough, dyspnea Cardiovascular: Denies: chest pain, edema, syncope Gastrointestinal: Reports: nausea. Denies: abdominal pain, vomiting, diarrhea Genitourinary: Denies: dysuria, hematuria Musculoskeletal: Denies: back pain Skin: Reports: as per HPI, other (Decubitus ulcer). 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 Date of last positivie culture/infection: 12/31/23 - ESBL; 12/29/23 - CRE, MDRO; 10/28/22 - MRSA MDRO Source:: ESBL-TISSUE; CRE/MDRO-back, urine ;MRSA-Blood Past Surgical History: Heart Catheterization Additional Past Surgical History / Comment(s): bilateral great toes amputated, 2nd toe lt foot partial amputation, multiple debridements of venous ulcers, colonoscopy, surgery as a child for undescended testicle., ABOVE THE KNEE AMPUTATION RIGHT LEG (JUNE 2017-[facility]) Past Anesthesia/Blood Transfusion Reactions: No Reported Reaction Date of Last Stent Placement:: 10/17/2022 Past Psychological History: Anxiety, Depression Smoking Status: Former smoker Past Alcohol Use History: Unable to Obtain Past Drug Use History: Unable to Obtain - Past Family History Father Family Medical History: Cancer Additional Family Medical History / Comment(s): Father from brain cancer Mother Family Medical History: Eye Disorder Additional Family Medical History / Comment(s): Glaucoma. Mother is . General Exam Limitations: altered mental status General appearance: alert, in no apparent distress Head exam: Present: atraumatic, normocephalic Eye exam: Present: normal appearance, PERRL, EOMI. Absent: scleral icterus, conjunctival injection ENT exam: Present: mucous membranes dry Neck exam: Present: normal inspection, full ROM. Absent: tenderness, meningismus Respiratory exam: Present: normal lung sounds bilaterally. Absent: respiratory distress, wheezes, rales, rhonchi, stridor, chest wall tenderness, accessory muscle use Cardiovascular Exam: Present: normal rhythm, tachycardia, normal heart sounds. Absent: systolic murmur, diastolic murmur, rubs, gallop GI/Abdominal exam: Present: soft, other (Colostomy in the left lower quadrant. The output is brown but appears firmer than usual ostomy output). Absent: distended, tenderness, guarding, rebound, rigid, mass Extremities exam: Present: full ROM, normal capillary refill, other (Bilateral above-knee amputations.). Absent: pedal edema Back exam: Present: normal inspection Neurological exam: Present: alert, CN II-XII intact. Absent: oriented X3 (Patient is oriented to person, stated that he was at [facility], could not state the date), motor sensory deficit Skin exam: Present: warm, dry, normal color, other (Moderate sacral decubitus ulcer, some serosanguineous drainage no obvious purulent drainage, there is some devitalized tissue) Course Vital Signs 01/18/24 01/18/24 01/18/24 17:05 18:00 19:00 Temperature 98.8 F Pulse Rate 110 H 93 93 Respiratory 22 22 18 Rate Blood Pressure 106/73 122/66 151/75 O2 Sat by Pulse 94 L 95 95 Oximetry 01/18/24 01/18/24 01/19/24 20:00 22:00 00:00 Temperature Pulse Rate 93 85 89 Respiratory 18 18 18 Rate Blood Pressure 117/87 118/73 136/73 O2 Sat by Pulse 100 100 98 Oximetry 01/19/24 01/19/24 01/19/24 02:00 03:25 04:32 Temperature 100 F H 99.0 F Pulse Rate 89 83 Respiratory 18 18 Rate Blood Pressure 139/79 164/98 O2 Sat by Pulse 99 98 Oximetry 01/19/24 01/19/24 01/19/24 07:40 08:37 09:47 Temperature 98.6 F Pulse Rate 57 L 88 Respiratory 16 18 Rate Blood Pressure 130/62 128/95 O2 Sat by Pulse 97 99 Oximetry 01/19/24 01/19/24 01/19/24 10:51 11:48 12:00 Temperature Pulse Rate 56 L 52 L Respiratory 18 16 Rate Blood Pressure 128/89 113/58 142/61 O2 Sat by Pulse 98 99 Oximetry 01/19/24 01/19/24 01/19/24 13:49 16:00 18:00 Temperature Pulse Rate 86 81 56 L Respiratory 18 18 16 Rate Blood Pressure 126/68 112/49 118/51 O2 Sat by Pulse 97 95 96 Oximetry 01/19/24 01/19/24 01/19/24 20:39 22:00 23:08 Temperature Pulse Rate 71 56 L 54 L Respiratory 18 18 20 Rate Blood Pressure 131/60 102/53 103/53 O2 Sat by Pulse 96 93 L 93 L Oximetry EKG Findings - EKG Results: EKG: interpreted by ERMD, sinus rhythm (Rate 94 bpm), normal axis - Blocks, [place], Hypertrophy, ST Abn: AV and intraventricular conduction: intraventricular conduction delay Repolarization changes or abnormalities: ST or T wave suggestive of ischemia (Inferior and anterolateral T inversions.) Medical Decision Making - Medical Decision Making Please note that the sepsis bolus is adjusted based on the patient having bilateral leg amputations. His ideal body weight estimated at 50 kg. The patient had chest x-ray that I interpreted as negative for acute infiltrate, pneumothorax, congestive heart failure Was pt. sent in by a medical professional or institution (, KIM, CONTINUOUS IMPROVEMENT MANAGER, urgent ca re, hospital, or senior care...) When possible be specific @ -[No] Did you speak to anyone other than the patient for history (EMS, parent, family, police, friend...)? What history was obtained from this source @ -[Some history given by EMS Did you review nursing and triage notes (agree or disagree)? Why? @ -[I reviewed and agree with nursing and triage notes] Were old charts reviewed (outside hosp., previous admission, EMS record, old EKG, old radiological studies, urgent care reports/EKG's, senior care records)? Report findings @ -[No old charts were reviewed] Differential Diagnosis (chest pain, altered mental status, abdominal pain women, abdominal pain men, vaginal bleeding, weakness, fever, dyspnea, syncope, headache, dizziness, GI bleed, back pain, seizure, CVA, palpatations, mental health, musculoskeletal)? @ -[Differential Weakness: Hypoglycemia, shock, sepsis, hyponatremia, anemia, infection, [place], ETOH, adverse medicine reaction, overdose, stroke, this is not meant to be an all-inclusive list. EKG interpreted by me (3pts min.). @ -[I interpreted as above] X-rays interpreted by me (1pt min.). @ -[I interpreted as above CT interpreted by me (1pt min.). @ -[None done] U/S interpreted by me (1pt. min.). @ -[None done] What testing was considered but not performed or refused? (CT, X-rays, U/S, labs)? Why? @ -[None] What meds were considered but not given or refused? Why? @ -[None] Did you discuss the management of the patient with other professionals (pr ofessionals i.e. , KIM, CONTINUOUS IMPROVEMENT MANAGER, lab, RT, psych nurse, social services, radio interference expert, teacher, postal sorting officer, behavioral health case manager)? Give summary @ -[Case discussed with admitting physician and treatment recommendations are incorporated Was smoking cessation discussed for >3mins.? @ -[No] Was critical care preformed (if so, how long)? @ -[Yes, 30 minutes Were there social determinants of health that impacted care today? How? (Homelessness, low income, unemployed, alcoholism, drug addiction, transportation, low edu. Level, literacy, decrease access to med. care, penitentiary, rehab)? @ -[No] Was there de-escalation of care discussed even if they declined (Discuss DNR or withdrawal of care, Hospice)? DNR status @ -[No] What co-morbidities impacted this encounter? (DM, HTN, Smoking, COPD, CAD, Cancer, CVA, ARF, Chemo, Hep., AIDS, mental health diagnosis, sleep apnea, morbid obesity)? @ -[Diabetes, hypertension, vascular disease, sacral decubitus ulcer Was patient admitted / discharged? Hospital course, mention meds given and route, prescriptions, significant lab abnormalities, going to OR and other pertinent info. @ -[Patient is 73-year-old man here with change from baseline mental status/weakness. The patient will be admitted to have possible surgical debridement of sacral decubitus ulcer. Undiagnosed new problem with uncertain prognosis? @ -[No] Drug Therapy requiring intensive monitoring for toxicity (Heparin, Nitro, Insulin, Cardizem)? @ -[No] Were any procedures done? @ -[No] Diagnosis/symptom? @ -Altered mental status Sacral decubitus ulcer Possible urinary tract infection Anemia Lactic acidosis Acute, or Chronic, or Acute on Chronic? @ -[default] Uncomplicated (without systemic symptoms) or Complicated (systemic symptoms)? @ -[Complicated by mental status change Side effects of treatment? @ -[No] Exacerbation, Progression, or Severe Exacerbation? @ -[No] Poses a threat to life or bodily function? How? (Chest pain, [place], [place], pneumonia, PE, COPD, DKA, ARF, appy, cholecystitis, CVA, Diverticulitis, Homicidal, Suicidal, threat to staff... and all critical care pts) @ -[Yes, possibility of worsening infection/sepsis/ - Lab Data Result diagrams: 01/24/24 09:02 01/18/24 17:14 Lab Results 01/18/24 01/18/24 01/18/24 Range/Units 17:14 17:14 17:14 WBC 13.5 H (3.8-10.6) k/uL RBC 3.20 L (4.30-5.90) m/uL Hgb 8.9 L (13.0-17.5) gm/dL Hct 28.2 L (39.0-53.0) % MCV 88.3 (80.0-100.0) fL MCH 27.7 (25.0-35.0) pg MCHC 31.4 (31.0-37.0) g/dL RDW 17.5 H (11.5-15.5) % Plt Count 499 H (150-450) k/uL MPV 8.3 Neutrophils % 81 % Lymphocytes % 11 % Monocytes % 5 % Eosinophils % 1 % Basophils % 0 % Neutrophils # 10.9 H (1.3-7.7) k/uL Lymphocytes # 1.5 (1.0-4.8) k/uL Monocytes # 0.7 (0-1.0) k/uL Eosinophils # 0.1 (0-0.7) k/uL Basophils # 0.0 (0-0.2) k/uL Hypochromasia Marked Anisocytosis Slight PT 12.1 (10.0-12.5) sec INR 1.1 (<1.2) APTT 27.7 (22.0-30.0) sec Sodium (137-145) mmol/L Potassium (3.5-5.1) mmol/L Chloride (98-107) mmol/L Carbon Dioxide (22-30) mmol/L Anion Gap mmol/L BUN (9-20) mg/dL Creatinine (0.66-1.25) mg/dL Est GFR (CKD-EPI)AfAm (>60 ml/min/1.73 sqM) Est GFR (CKD-EPI)NonAf (>60 ml/min/1.73 sqM) Glucose (74-99) mg/dL Lactic Ac Sepsis Rflx Plasma Lactic Acid Ata (0.7-2.0) mmol/L Calcium (8.4-10.2) mg/dL Magnesium (1.6-2.3) mg/dL Total Bilirubin (0.2-1.3) mg/dL AST (17-59) U/L ALT (4-49) U/L Alkaline Phosphatase (38-126) U/L Troponin I (0.000-0.034) ng/mL Total Protein (6.3-8.2) g/dL Albumin (3.5-5.0) g/dL Urine Color Yellow Urine Appearance Cloudy (Clear) Urine pH 5.5 (5.0-8.0) Ur Specific [place] 1.028 (1.001-1.035) Urine Protein 2+ H (Negative) Urine Glucose (UA) Negative (Negative) Urine Ketones Negative (Negative) Urine Blood Trace H (Negative) Urine Nitrite Negative (Negative) Urine Bilirubin Negative (Negative) Urine Urobilinogen 2.0 (<2.0) mg/dL Ur Leukocyte Esterase Large H (Negative) Urine RBC >182 H (0-5) /hpf Urine WBC 57 H (0-5) /hpf Ur Squamous Epith Cells 1 (0-4) /hpf Urine Bacteria Few H (None) /hpf Urine Mucus Moderate H (None) /hpf Urine Yeast (Budding) Many H (None) /hpf 01/18/24 01/18/24 01/18/24 Range/Units 17:14 17:14 17:14 WBC (3.8-10.6) k/uL RBC (4.30-5.90) m/uL Hgb (13.0-17.5) gm/dL Hct (39.0-53.0) % MCV (80.0-100.0) fL MCH (25.0-35.0) pg MCHC (31.0-37.0) g/dL RDW (11.5-15.5) % Plt Count (150-450) k/uL MPV Neutrophils % % Lymphocytes % % Monocytes % % Eosinophils % % Basophils % % Neutrophils # (1.3-7.7) k/uL Lymphocytes # (1.0-4.8) k/uL Monocytes # (0-1.0) k/uL Eosinophils # (0-0.7) k/uL Basophils # (0-0.2) k/uL Hypochromasia Anisocytosis PT (10.0-12.5) sec INR (<1.2) APTT (22.0-30.0) sec Sodium 147 H (137-145) mmol/L Potassium 3.8 (3.5-5.1) mmol/L Chloride 117 H (98-107) mmol/L Carbon Dioxide 19 L (22-30) mmol/L Anion Gap 11 mmol/L BUN 14 (9-20) mg/dL Creatinine 0.92 (0.66-1.25) mg/dL Est GFR (CKD-EPI)AfAm >90 (>60 ml/min/1.73 sqM) Est GFR (CKD-EPI)NonAf 84 (>60 ml/min/1.73 sqM) Glucose 131 H (74-99) mg/dL Lactic Ac Sepsis Rflx Plasma Lactic Acid Ata 2.6 H* (0.7-2.0) mmol/L Calcium 8.5 (8.4-10.2) mg/dL Magnesium 1.6 (1.6-2.3) mg/dL Total Bilirubin 0.4 (0.2-1.3) mg/dL AST 11 L (17-59) U/L ALT 8 (4-49) U/L Alkaline Phosphatase 134 H (38-126) U/L Troponin I 0.035 H* (0.000-0.034) ng/mL Total Protein 6.0 L (6.3-8.2) g/dL Albumin 2.6 L (3.5-5.0) g/dL Urine Color Urine Appearance (Clear) Urine pH (5.0-8.0) Ur Specific [place] (1.001-1.035) Urine Protein (Negative) Urine Glucose (UA) (Negative) Urine Ketones (Negative) Urine Blood (Negative) Urine Nitrite (Negative) Urine Bilirubin (Negative) Urine Urobilinogen (<2.0) mg/dL Ur Leukocyte Esterase (Negative) Urine RBC (0-5) /hpf Urine WBC (0-5) /hpf Ur Squamous Epith Cells (0-4) /hpf Urine Bacteria (None) /hpf Urine Mucus (None) /hpf Urine Yeast (Budding) (None) /hpf 01/18/24 01/18/24 Range/Units 17:57 22:00 WBC (3.8-10.6) k/uL RBC (4.30-5.90) m/uL Hgb (13.0-17.5) gm/dL Hct (39.0-53.0) % MCV (80.0-100.0) fL MCH (25.0-35.0) pg MCHC (31.0-37.0) g/dL RDW (11.5-15.5) % Plt Count (150-450) k/uL MPV Neutrophils % % Lymphocytes % % Monocytes % % Eosinophils % % Basophils % % Neutrophils # (1.3-7.7) k/uL Lymphocytes # (1.0-4.8) k/uL Monocytes # (0-1.0) k/uL Eosinophils # (0-0.7) k/uL Basophils # (0-0.2) k/uL Hypochromasia Anisocytosis PT (10.0-12.5) sec INR (<1.2) APTT (22.0-30.0) sec Sodium (137-145) mmol/L Potassium (3.5-5.1) mmol/L Chloride (98-107) mmol/L Carbon Dioxide (22-30) mmol/L Anion Gap mmol/L BUN (9-20) mg/dL Creatinine (0.66-1.25) mg/dL Est GFR (CKD-EPI)AfAm (>60 ml/min/1.73 sqM) Est GFR (CKD-EPI)NonAf (>60 ml/min/1.73 sqM) Glucose (74-99) mg/dL Lactic Ac Sepsis Rflx Y Plasma Lactic Acid Ata 1.4 (0.7-2.0) mmol/L Calcium (8.4-10.2) mg/dL Magnesium (1.6-2.3) mg/dL Total Bilirubin (0.2-1.3) mg/dL AST (17-59) U/L ALT (4-49) U/L Alkaline Phosphatase (38-126) U/L Troponin I (0.000-0.034) ng/mL Total Protein (6.3-8.2) g/dL Albumin (3.5-5.0) g/dL Urine Color Urine Appearance (Clear) Urine pH (5.0-8.0) Ur Specific [place] (1.001-1.035) Urine Protein (Negative) Urine Glucose (UA) (Negative) Urine Ketones (Negative) Urine Blood (Negative) Urine Nitrite (Negative) Urine Bilirubin (Negative) Urine Urobilinogen (<2.0) mg/dL Ur Leukocyte Esterase (Negative) Urine RBC (0-5) /hpf Urine WBC (0-5) /hpf Ur Squamous Epith Cells (0-4) /hpf Urine Bacteria (None) /hpf Urine Mucus (None) /hpf Urine Yeast (Budding) (None) /hpf Disposition Clinical Impression: Altered mental status, Sacral decubitus ulcer, Lactic acidosis Disposition: ADMITTED IP TO THIS HOSP Condition: Serious
[2024-01-18] MEDS: ONDANSETRON 4 MG/2 ML VIAL IVP STA (17:16)
[2024-01-18] MEDS: SODIUM CHLORIDE 0.9% 1,000 ML IV STA ×2 (17:17→19:43)
[2024-01-18 17:42] LABS: Anisocytosis Slight; Basophils % (A) 0 %; Eosinophils # (A) 0.1 k/uL (0-0.7); Eosinophils % (A) 1 %; HCT 28.2 % (39.0-53.0); HGB 8.9 gm/dL (13.0-17.5); Hypochromasia Marked; Lymphocytes # (A) 1.5 k/uL (1.0-4.8); Lymphocytes % (A) 11 %; MCH 27.7 pg (25.0-35.0); MCHC 31.4 g/dL (31.0-37.0); MCV 88.3 fL (80.0-100.0); Mean Platelet Volume 8.3; Monocytes # (A) 0.7 k/uL (0-1.0); Monocytes % (A) 5 %; Neutrophils # (A) 10.9 k/uL (1.3-7.7); Neutrophils % (A) 81 %; Platelet Count 499 k/uL (150-450); RDW 17.5 % (11.5-15.5); WBC 13.5 k/uL (3.8-10.6)
[2024-01-18 17:55] LABS: ALT 8 U/L (4-49); AST 11 U/L (17-59); African American GFR (CKD) >90 (>60 ml/min/1.73 sqM); Albumin 2.6 g/dL (3.5-5.0); Alkaline Phosphatase 134 U/L (38-126); Anion Gap 11 mmol/L; Blood Urea Nitrogen 14 mg/dL (9-20); Calcium 8.5 mg/dL (8.4-10.2); Carbon Dioxide 19 mmol/L (22-30); Chloride 117 mmol/L (98-107); Glucose 131 mg/dL (74-99); INR 1.1 (<1.2); Magnesium 1.6 mg/dL (1.6-2.3); Non-African American GFR(CKD) 84 (>60 ml/min/1.73 sqM); Partial Thromboplastin Time 27.7 sec (22.0-30.0); Potassium 3.8 mmol/L (3.5-5.1); Prothrombin Time 12.1 sec (10.0-12.5); Sodium 147 mmol/L (137-145); Total Bilirubin 0.4 mg/dL (0.2-1.3)
--- NOTE | 2024-01-18 18:14 | XR ---
EXAMINATION TYPE: XR chest 2V DATE OF EXAM: 01/18/2024 5:51 PM COMPARISON: Chest radiographs from 01/01/2024 CLINICAL INDICATION: Male, 73 years old with history of Weakness; [facility] TECHNIQUE: XR chest 2V Frontal and lateral views of the chest. FINDINGS: Lungs/Pleura: Right blunting of costophrenic angle with atelectasis changes. There is no evidence of left pleural effusion, focal consolidation, or pneumothorax. Pulmonary vascularity: Unremarkable. Heart/mediastinum: Cardiomediastinal silhouette is unremarkable. Musculoskeletal: No acute osseous pathology. IMPRESSION: Small right pleural effusion with associated atelectasis. Findings somewhat similar to prior pleural effusion has increased slightly. [facility], , 01/18/2024 6:12 PM
[2024-01-18 18:30] LABS: Appearance,Urine Cloudy (Clear); Bacteria,Urine Few /hpf; Bilirubin,Urine Negative (Negative); Blood,Urine Trace (Negative); Budding Yeast,Urine Many /hpf; Color,Urine Yellow; Glucose,Urine (UA) Negative (Negative); Ketones,Urine Negative (Negative); Leukocyte Esterase,Urine Large (Negative); Mucus,Urine Moderate /hpf; Nitrite,Urine Negative (Negative); PH, Urine 5.5 (5.0-8.0); Protein,Urine 2+ (Negative); RBC,Urine >182 /hpf (0-5); Specific Gravity,Urine 1.028 (1.001-1.035); Squamous Epithelial Cell,Urine 1 /hpf (0-4); WBC,Urine 57 /hpf (0-5)
[2024-01-18] MEDS: SODIUM CHLORIDE 0.9% 1,000 ML IV ONE (19:34)
[2024-01-19] MEDS ORDERED: NALOXONE 0.4 MG/ML 1 ML VIAL IV PRN (00:20)
[2024-01-19] MEDS ORDERED: ONDANSETRON 4 MG/2 ML VIAL IVP PRN (00:20)
[2024-01-19] MEDS: SODIUM CHLORIDE 0.9% 1,000 ML IV SCH (00:24)
[2024-01-19] MEDS: ACETAMINOPHEN TAB 325 MG TAB PO PRN (03:30)
[2024-01-19] MEDS: FAMOTIDINE 20 MG TAB PO SCH (08:36)
[2024-01-19] MEDS: HEPARIN SODIUM,PORCINE 5,000 UNIT/ML 1 ML VIAL SQ SCH (08:36)
[2024-01-19] MEDS: HYDROcodone/APAP 5-325MG 1 EACH TAB PO PRN (09:45)
[2024-01-19] MEDS ORDERED: LORazepam 0.5 MG TAB PO PRN (11:40)
[2024-01-19] MEDS: SODIUM BICARBONATE TAB 650 MG TAB PO SCH (12:28)
[2024-01-19] MEDS: amLODIPine 10 MG TAB PO SCH (12:29)
[2024-01-19] MEDS: FERROUS SULFATE 325 MG TAB PO SCH (12:29)
[2024-01-19] MEDS: ASPIRIN 81 MG PO SCH (12:29)
[2024-01-19] MEDS: SPIRONOLACTONE 25 MG TAB PO SCH (12:30)
[2024-01-19] MEDS: hydrALAZINE HCL 10 MG TAB PO SCH (12:30)
[2024-01-19] MEDS: GABAPENTIN 300 MG CAP PO SCH (12:30)
[2024-01-19] MEDS: SENNOSIDES 8.6 MG TAB PO SCH (12:31)
[2024-01-19] MEDS: TAMSULOSIN 0.4 MG CAP.ER.24H PO SCH (12:31)
[2024-01-19] MEDS: VALSARTAN 160 MG TAB PO SCH (12:31)
[2024-01-19] MEDS: NYSTATIN 100,000 UNIT/GM POWD 15 GM TOPICAL SCH (12:32)
[2024-01-19] MEDS: COLLAGENASE 250 UNIT/GM OINTMENT 30 GM TUBE TOPICAL SCH (12:47)
--- NOTE | 2024-01-19 14:01 | P.HPIM ---
History of Present Illness H&P Date: 01/19/24 Chief Complaint: Sacral decub ulcer Patient is a 73-year-old male with PMH of IDDM, hypertension, CKD stage II, chronic indwelling Davidson catheter, systolic CHF with ejection fraction of 40 to 45%, dementia, COPD , bilateral AKA was sent to the hospital for sacral decubitus ulcers. Patient has dementia and is not able to provide any reasonable history . November 27, 2023 patient underwent loop colostomy by Dr. Maya, to prevent soiling of the decubitus ulcer. December 31, 2023-wound culture.Showing Klebsiella pneumoniae with ESBL. Discharged on IV ertapenem. And Flagyl. Patient was sent in because of some drop in hemoglobin outpatient to 7.3. Patient is wound picture was sent to infectious disease Dr. Barcenas's office. Fell there was some worsening. Patient admitted for the same. Consultation to Dr. Maya's team is done for possible debridement. According to the daughter at the bedside patient's been eating well. Colostomy bag working well. Review of systems: Patient not himself able to give much of history. Rest as above by the daughter Social history: Former smoker. At home. Cared for by his daughter. Physical examination: VITAL SIGNS: 98.6, 86, 18, 126 x 68, 97% room GENERAL: Laying in bed. Tired EYES: [Pupils equal. Conjunctiva pale HEENT: External appearance of nose and ears normal, oral cavity less dry mucous membrane. NECK: JVD not raised; masses not palpable. HEART: First and second heart sounds are normal; no edema. LUNGS: Respiratory rate increased; decreased breath sounds. ABDOMEN: Soft, nontender, liver spleen not palpable, no masses palpable. Davidson catheter. Loop colostomy.-Stool present PSYCH: Speaking simple sentences MUSCULOSKELETAL:No Clubbing/cyanosis;muscles-grossly intact. Sacral decubitus wound-pictures in the chart NEUROLOGICAL: [Cranial nerves grossly intact; no facial asymmetry, bilateral above-knee amputation INVESTIGATIONS, reviewed in the clinical context: January 17: White count 13.5 hemoglobin 8.9 platelets 499 sodium 147 potassium 3.8 creatinine 0.92 lactic acid 2.6 repeat 1.4 Troponin I 0.035 EKG tracing personally reviewed by me-poor baseline. Intraventricular block. ST-T wave changes. Chest x-ray film personally reviewed by [id number] effusion Previous studies Wound culture [December 30]: Bacteroids, acalculous species, Klebsiella pneumonia e CT abdomen pelvis: Gallstones. Moderate right hydropneumothorax with surrounding consolidation atelectasis. Assessment plan: # Acute on chronic infected sacral decubitus ulcer, unstageable, present thing we are increasing drainage. Prior debridements diverting loop colostomy-November 27, [address] Sachin Maya Deep IN r debridement--December [address] Alves January 04: IV Invanz 1 g every 24 hours, Flagyl 500 mg 3 times daily-per ID Dr. Saba team consulted for debridement -Chronic right-sided hydropneumothorax. 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 Consulted ID and general surgery. Discussed with daughters at bedside. Home medication resumed. Antibiotics per Dr. Del Rosario. Past Medical History Past Medical History: Dementia, Diabetes Mellitus, Eye Disorder, GERD/Reflux, Hyperlipidemia, Hypertension, Osteoarthritis (OA), Renal Disease Additional Past Medical History / Comment(s): HX of Chronic venous stasis wound s, IDDM type II, cataracts , arthritis in hands, neuropathy, AKA B/L History of Any Multi-Drug Resistant Organisms: MRSA Date of last positivie culture/infection: 12/31/23 - ESBL; 12/29/23 - CRE, MDRO; 10/28/22 - MRSA MDRO Source:: ESBL-TISSUE; CRE/MDRO-back, urine ;MRSA-Blood Past Surgical History: Heart Catheterization Additional Past Surgical History / Comment(s): bilateral great toes amputated, 2nd toe lt foot partial amputation, multiple debridements of venous ulcers, colonoscopy, surgery as a child for undescended testicle., ABOVE THE KNEE AMPUTATION RIGHT LEG (JUNE 2017-[facility]) Past Anesthesia/Blood Transfusion Reactions: No Reported Reaction Date of Last Stent Placement:: 10/17/2022 Past Psychological History: Anxiety, Depression Smoking Status: Former smoker Past Alcohol Use History: Unable to Obtain Past Drug Use History: Unable to Obtain - Past Family History Father Family Medical History: Cancer Additional Family Medical History / Comment(s): Father from brain cancer Mother Family Medical History: Eye Disorder Additional Family Medical History / Comment(s): Glaucoma. Mother is . Medications and Allergies Home Medications Medication Instructions Recorded Confirmed Type traZODone HCL 50 mg PO HS 11/09/17 01/19/24 History Tamsulosin [Flomax] 0.4 mg PO DAILY 09/29/22 01/19/24 History amLODIPine [Norvasc] 10 mg PO DAILY #30 tab 07/03/23 01/19/24 Rx Clopidogrel [Plavix] 75 mg PO DAILY 10/02/23 01/19/24 History Glycopyrrolate 1 mg PO TID PRN 10/02/23 01/19/24 History Sennosides [Senokot] 8.6 mg PO DAILY 10/02/23 01/19/24 History Atorvastatin Calcium [Lipitor] 80 mg PO HS 11/10/23 01/19/24 History Insulin Lispro [humaLOG Kwikpen] See Protocol SQ AC-TID 11/10/23 01/19/24 History HYDROcodone/APAP 7.5-325MG [[place] 1 tab PO Q6HR PRN #12 tab 12/02/23 01/19/24 Rx 7.5-325] Spironolactone [Aldactone] 25 mg PO DAILY tab 12/02/23 01/19/24 Rx Acetaminophen Tab [Tylenol] 500 mg PO Q6H PRN 12/29/23 01/19/24 History Aspirin 81 mg PO DAILY 12/29/23 01/19/24 History Famotidine [Pepcid] 20 mg PO BID 12/29/23 01/19/24 History Ferrous Sulfate [Iron (65 MG 325 mg PO DAILY 12/29/23 01/19/24 History Elemental)] Gabapentin [Neurontin] 300 mg PO BID 12/29/23 01/19/24 History Insulin Glargine,Hum.rec.anlog 12 units SQ HS 12/29/23 01/19/24 History [Lantus Solostar Pen] Magnesium Citrate [Citrate of 296 ml PO RING 12/29/23 01/19/24 History Magnesia] hydrALAZINE HCL 10 mg PO TID 12/29/23 01/19/24 History Nystatin 100,000 Unit/gm Powd 1 applic TOPICAL BID each 01/04/24 01/19/24 Rx [Mycostatin Powder] Sodium Bicarbonate Tab 650 mg PO BID #60 tab 01/04/24 01/19/24 Rx Collagenase [Santyl Ointment] 1 applic TOPICAL DAILY #30 gm 01/05/24 01/19/24 Rx Ertapenem [INVanz] 1 gm IVPB Q24H #40 each 01/05/24 01/19/24 Rx metroNIDAZOLE [Flagyl] 500 mg PO TID #120 tab 01/05/24 01/19/24 Rx LORazepam [Ativan] 0.5 mg PO TID PRN 01/19/24 01/19/24 History Valsartan [Diovan] 320 mg PO DAILY 01/19/24 01/19/24 History Allergies Allergy/AdvReac Type Severity Reaction Status Date / Time No Known Allergies Allergy Verified 01/19/24 10:06 Physical Exam Vitals: Vital Signs Temp Pulse Resp BP Pulse Ox 01/19/24 08:37 98.6 F 01/19/24 07:40 57 L 16 130/62 97 01/19/24 04:32 99.0 F 83 18 164/98 98 01/19/24 03:25 100 F H 01/19/24 02:00 89 18 139/79 99 01/19/24 00:00 89 18 136/73 98 01/18/24 22:00 85 18 118/73 100 01/18/24 20:00 93 18 117/87 100 01/18/24 19:00 93 18 151/75 95 01/18/24 18:00 93 22 122/66 95 01/18/24 17:05 98.8 F 110 H 22 106/73 94 L Intake and Output 01/18/24 01/19/24 01/19/24 22:59 06:59 14:59 Output Total 40 Balance -40 Output: Urine 40 Uretheral (Davidson) 40 Other: Weight 86.183 kg Results CBC & Chem 7: 01/18/24 17:14 01/18/24 17:14 Labs: Abnormal Lab Results - Last 24 Hours (Table) 01/18/24 01/18/24 01/18/24 Range/Units 17:14 17:14 17:14 WBC 13.5 H (3.8-10.6) k/uL RBC 3.20 L (4.30-5.90) m/uL Hgb 8.9 L (13.0-17.5) gm/dL Hct 28.2 L (39.0-53.0) % RDW 17.5 H (11.5-15.5) % Plt Count 499 H (150-450) k/uL Neutrophils # 10.9 H (1.3-7.7) k/uL Sodium 147 H (137-145) mmol/L Chloride 117 H (98-107) mmol/L Carbon Dioxide 19 L (22-30) mmol/L Glucose 131 H (74-99) mg/dL Plasma Lactic Acid Ata (0.7-2.0) mmol/L AST 11 L (17-59) U/L Alkaline Phosphatase 134 H (38-126) U/L Troponin I (0.000-0.034) ng/mL Total Protein 6.0 L (6.3-8.2) g/dL Albumin 2.6 L (3.5-5.0) g/dL Urine Protein 2+ H (Negative) Urine Blood Trace H (Negative) Ur Leukocyte Esterase Large H (Negative) Urine RBC >182 H (0-5) /hpf Urine WBC 57 H (0-5) /hpf Urine Bacteria Few H (None) /hpf Urine Mucus Moderate H (None) /hpf Urine Yeast (Budding) Many H (None) /hpf 01/18/24 01/18/24 Range/Units 17:14 17:14 WBC (3.8-10.6) k/uL RBC (4.30-5.90) m/uL Hgb (13.0-17.5) gm/dL Hct (39.0-53.0) % RDW (11.5-15.5) % Plt Count (150-450) k/uL Neutrophils # (1.3-7.7) k/uL Sodium (137-145) mmol/L Chloride (98-107) mmol/L Carbon Dioxide (22-30) mmol/L Glucose (74-99) mg/dL Plasma Lactic Acid Ata 2.6 H* (0.7-2.0) mmol/L AST (17-59) U/L Alkaline Phosphatase (38-126) U/L Troponin I 0.035 H* (0.000-0.034) ng/mL Total Protein (6.3-8.2) g/dL Albumin (3.5-5.0) g/dL Urine Protein (Negative) Urine Blood (Negative) Ur Leukocyte Esterase (Negative) Urine RBC (0-5) /hpf Urine WBC (0-5) /hpf Urine Bacteria (None) /hpf Urine Mucus (None) /hpf Urine Yeast (Budding) (None) /hpf
[2024-01-19] MEDS: ERTAPENEM 1 GM in SODIUM CHLORIDE 0.9% 50 ML IVPB SCH (14:59)
--- NOTE | 2024-01-19 15:38 | P.GSCN ---
History of Present Illness Consult date: 01/19/24 History of present illness: CHIEF COMPLAINT: weakness, low hgb HISTORY OF PRESENT ILLNESS: This is a 73-year-old male with a known infected sacral decubitus ulcer and had been on antibiotics. He had debridement of the sacral decubitus ulcer on 01/02/2024 during his last hospitalization.. Also history of a diverting loop colostomy. Patient sent to the ER due to lethargy and hemoglobin less than 8 on outpatient labs. He also been complaining of pain in the sacral decubitus ulcer. Surgical service consulted for possible debridement. Patient did have a low-grade temp of 100 on admission and white count of 13.5. He has history of diabetes and dementia. He is bedbound with bilateral amputation of the legs. PAST MEDICAL HISTORY: See below PAST SURGICAL HISTORY: See below MEDICATIONS: See below ALLERGIES: See below SOCIAL HISTORY: No illicit drug use. REVIEW OF SYSTEMS: CONSTITUTIONAL: Denies fever or chills. HEENT: Denies blurred vision, vision changes, or eye pain. Denies hemoptysis CARDIOVASCULAR: Denies chest pain or pressure. RESPIRATORY: No shortness of breath. GASTROINTESTINAL: See HPI for pertinent findings HEMATOLOGIC: Denies bleeding disorders. GENITOURINARY: Denies any blood in urine or increased urinary frequency. SKIN: Denies pruitis. Denies rash. PHYSICAL EXAM: VITAL SIGNS: Reviewed GENERAL: no acute distress. ABDOMEN: Soft. Obese. Nondistended. Nontender. Stool in his ostomy bag NEUROLOGIC: Alert and oriented. Cranial nerves II through XII grossly intact. Skin: Large sacral decubitus ulcer. There is dark tissue and areas of sloughing. minimal drainage on dressing. LABORATORY DATA: WBC 13.5 Hgb 8.9 platelets 499 Sodium 147 potassium 3.8 creatinine 0.92 Lactic acid 2.6 down to 1.4 IMAGING: ASSESSMENT: 1. Sacral decubitus ulcer PLAN: -Patient scheduled for debridement of sacral decubitus ulcer tomorrow -N.p.o. after midnight -Antibiotics per ID service Physician Colorer Machine note has been reviewed by physician. Signing provider agrees with the documented findings, assessment, and plan of care. 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 Year Discovered:: 12/31/23 - ESBL; 12/29/23 - CRE, MDRO; 10/28/22 - MRSA MDRO Source:: ESBL-TISSUE; CRE/MDRO-back, urine ;MRSA-Blood Past Surgical History: Heart Catheterization Additional Past Surgical History / Comment(s): bilateral great toes amputated, 2nd toe lt foot partial amputation, multiple debridements of venous ulcers, colo noscopy, surgery as a child for undescended testicle., ABOVE THE KNEE AMPUTATION RIGHT LEG (JUNE 2017-[facility]) Past Anesthesia/Blood Transfusion Reactions: No Reported Reaction Date of Last Stent Placement:: 10/17/2022 Past Psychological History: Anxiety, Depression Smoking Status: Former smoker Past Alcohol Use History: Unable to Obtain Past Drug Use History: Unable to Obtain - Past Family History Father Family Medical History: Cancer Additional Family Medical History / Comment(s): Father from brain cancer Mother Family Medical History: Eye Disorder Additional Family Medical History / Comment(s): Glaucoma. Mother is . Medications and Allergies Home Medications Medication Instructions Recorded Confirmed Type traZODone HCL 50 mg PO HS 11/09/17 01/19/24 History Tamsulosin [Flomax] 0.4 mg PO DAILY 09/29/22 01/19/24 History amLODIPine [Norvasc] 10 mg PO DAILY #30 tab 07/03/23 01/19/24 Rx Clopidogrel [Plavix] 75 mg PO DAILY 10/02/23 01/19/24 History Glycopyrrolate 1 mg PO TID PRN 10/02/23 01/19/24 History Sennosides [Senokot] 8.6 mg PO DAILY 10/02/23 01/19/24 History Atorvastatin Calcium [Lipitor] 80 mg PO HS 11/10/23 01/19/24 History Insulin Lispro [humaLOG Kwikpen] See Protocol SQ AC-TID 11/10/23 01/19/24 Histo ry HYDROcodone/APAP 7.5-325MG [[place] 1 tab PO Q6HR PRN #12 tab 12/02/23 01/19/24 Rx 7.5-325] Spironolactone [Aldactone] 25 mg PO DAILY tab 12/02/23 01/19/24 Rx Acetaminophen Tab [Tylenol] 500 mg PO Q6H PRN 12/29/23 01/19/24 History Aspirin 81 mg PO DAILY 12/29/23 01/19/24 History Famotidine [Pepcid] 20 mg PO BID 12/29/23 01/19/24 History Ferrous Sulfate [Iron (65 MG 325 mg PO DAILY 12/29/23 01/19/24 History Elemental)] Gabapentin [Neurontin] 300 mg PO BID 12/29/23 01/19/24 History Insulin Glargine,Hum.rec.anlog 12 units SQ HS 12/29/23 01/19/24 History [Lantus Solostar Pen] Magnesium Citrate [Citrate of 296 ml PO RING 12/29/23 01/19/24 History Magnesia] hydrALAZINE HCL 10 mg PO TID 12/29/23 01/19/24 History Nystatin 100,000 Unit/gm Powd 1 applic TOPICAL BID each 01/04/24 01/19/24 Rx [Mycostatin Powder] Sodium Bicarbonate Tab 650 mg PO BID #60 tab 01/04/24 01/19/24 Rx Collagenase [Santyl Ointment] 1 applic TOPICAL DAILY #30 gm 01/05/24 01/19/24 Rx Ertapenem [INVanz] 1 gm IVPB Q24H #40 each 01/05/24 01/19/24 Rx metroNIDAZOLE [Flagyl] 500 mg PO TID #120 tab 01/05/24 01/19/24 Rx LORazepam [Ativan] 0.5 mg PO TID PRN 01/19/24 01/19/24 History Valsartan [Diovan] 320 mg PO DAILY 01/19/24 01/19/24 History Allergies Allergy/AdvReac Type Severity Reaction Status Date / Time No Known Allergies Allergy Verified 01/19/24 10:06 Surgical - Exam Vital Signs Temp Pulse Resp BP Pulse Ox 98.8 F 110 H 22 106/73 94 L 01/18/24 17:05 01/18/24 17:05 01/18/24 17:05 01/18/24 17:05 01/18/24 17:05 Results - Labs 01/18/24 17:14 01/18/24 17:14 Abnormal Lab Results - Last 24 Hours (Table) 01/18/24 01/18/24 01/18/24 Range/Units 17:14 17:14 17:14 WBC 13.5 H (3.8-10.6) k/uL RBC 3.20 L (4.30-5.90) m/uL Hgb 8.9 L (13.0-17.5) gm/dL Hct 28.2 L (39.0-53.0) % RDW 17.5 H (11.5-15.5) % Plt Count 499 H (150-450) k/uL Neutrophils # 10.9 H (1.3-7.7) k/uL Sodium 147 H (137-145) mmol/L Chloride 117 H (98-107) mmol/L Carbon Dioxide 19 L (22-30) mmol/L Glucose 131 H (74-99) mg/dL Plasma Lactic Acid Ata (0.7-2.0) mmol/L AST 11 L (17-59) U/L Alkaline Phosphatase 134 H (38-126) U/L Troponin I (0.000-0.034) ng/mL Total Protein 6.0 L (6.3-8.2) g/dL Albumin 2.6 L (3.5-5.0) g/dL Urine Protein 2+ H (Negative) Urine Blood Trace H (Negative) Ur Leukocyte Esterase Large H (Negative) Urine RBC >182 H (0-5) /hpf Urine WBC 57 H (0-5) /hpf Urine Bacteria Few H (None) /hpf Urine Mucus Moderate H (None) /hpf Urine Yeast (Budding) Many H (None) /hpf 01/18/24 01/18/24 Range/Units 17:14 17:14 WBC (3.8-10.6) k/uL RBC (4.30-5.90) m/uL Hgb (13.0-17.5) gm/dL Hct (39.0-53.0) % RDW (11.5-15.5) % Plt Count (150-450) k/uL Neutrophils # (1.3-7.7) k/uL Sodium (137-145) mmol/L Chloride (98-107) mmol/L Carbon Dioxide (22-30) mmol/L Glucose (74-99) mg/dL Plasma Lactic Acid Ata 2.6 H* (0.7-2.0) mmol/L AST (17-59) U/L Alkaline Phosphatase (38-126) U/L Troponin I 0.035 H* (0.000-0.034) ng/mL Total Protein (6.3-8.2) g/dL Albumin (3.5-5.0) g/dL Urine Protein (Negative) Urine Blood (Negative) Ur Leukocyte Esterase (Negative) Urine RBC (0-5) /hpf Urine WBC (0-5) /hpf Urine Bacteria (None) /hpf Urine Mucus (None) /hpf Urine Yeast (Budding) (None) /hpf Diabetes panel 01/18/24 Range/Units 17:14 Sodium 147 H (137-145) mmol/L Potassium 3.8 (3.5-5.1) mmol/L Chloride 117 H (98-107) mmol/L Carbon Dioxide 19 L (22-30) mmol/L BUN 14 (9-20) mg/dL Creatinine 0.92 (0.66-1.25) mg/dL Glucose 131 H (74-99) mg/dL Calcium 8.5 (8.4-10.2) mg/dL AST 11 L (17-59) U/L ALT 8 (4-49) U/L Alkaline Phosphatase 134 H (38-126) U/L Total Protein 6.0 L (6.3-8.2) g/dL Albumin 2.6 L (3.5-5.0) g/dL Calcium panel 01/18/24 Range/Units 17:14 Calcium 8.5 (8.4-10.2) mg/dL Albumin 2.6 L (3.5-5.0) g/dL Pituitary panel 01/18/24 Range/Units 17:14 Sodium 147 H (137-145) mmol/L Potassium 3.8 (3.5-5.1) mmol/L Chloride 117 H (98-107) mmol/L Carbon Dioxide 19 L (22-30) mmol/L BUN 14 (9-20) mg/dL Creatinine 0.92 (0.66-1.25) mg/dL Glucose 131 H (74-99) mg/dL Calcium 8.5 (8.4-10.2) mg/dL Adrenal panel 01/18/24 Range/Units 17:14 Sodium 147 H (137-145) mmol/L Potassium 3.8 (3.5-5.1) mmol/L Chloride 117 H (98-107) mmol/L Carbon Dioxide 19 L (22-30) mmol/L BUN 14 (9-20) mg/dL Creatinine 0.92 (0.66-1.25) mg/dL Glucose 131 H (74-99) mg/dL Calcium 8.5 (8.4-10.2) mg/dL Total Bilirubin 0.4 (0.2-1.3) mg/dL AST 11 L (17-59) U/L ALT 8 (4-49) U/L Alkaline Phosphatase 134 H (38-126) U/L Total Protein 6.0 L (6.3-8.2) g/dL Albumin 2.6 L (3.5-5.0) g/dL
[2024-01-19 17:13] LABS: Glucose,Whole Blood 123 mg/dL (70-110)
[2024-01-19] MEDS: INSULIN ASPART (NovoLOG) 100 UNIT/ML VIAL SQ SCH (17:14)
[2024-01-19 20:36] LABS: Glucose,Whole Blood 101 mg/dL (70-110)
[2024-01-19] MEDS: ATORVASTATIN 80 MG TAB PO SCH (20:41)
[2024-01-19] MEDS: traZODone HCL 50 MG TAB PO SCH (20:41)
[2024-01-19] MEDS: INSULIN DETEMIR (LEVEMIR) 100 UNIT/ML SYR SQ SCH (20:43)
--- NOTE | 2024-01-19 22:27 | P.CONS ---
History of Present Illness - Reason for Consult Consult date: 01/19/24 Infected wound Requesting physician: Gerson Banks - Chief Complaint Weakness pain to the sacral wound x days - History of Present Illness Patient is a 73-year-old male with a past medical history significant for diabetes mellitus hypertension hyperlipidemia osteoarthritis recently admitted to the hospital status post debridement of his sacral wound there was concern for sacral osteomyelitis with the OR culture positive for ESBL Klebsiella patient did get a PICC line and was advised a 6-week course of IV Invanz which the patient was currently receiving in the outpatient setting patient has not been brought back to the hospital however the patient was not iced to have a low hemoglobin on an outpatient blood testing at the patient noted to be more lethargic patient been complaining of pain to the sacral area but unable to quantify it any further and also noticed to have slight worsening of his sacral wound with more slough tissue prompted this consultation patient denies having any fever or any chills however he did have a low-grade fever 100 F this morning patient denies having any chest pain shortness of breath occasional cough no abdominal pain or diarrhea patient is Not hypoxic or need for supplemental oxygen. Patient did have white count 13.5 with a left shift creatinine 0.92 lactic acid was 2.6 urine has been positive patient did have a chest x-ray some mild right effusion with associated atelectasis, patient did receive a dose of Rocephin in the ER has been admitted to the hospital infectious disease was consulted for further management Review of Systems Positive point and negatives has been mentioned in the HPI, complete review of systems was performed and all other systems are negative 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 Year Discovered:: 12/31/23 - ESBL; 12/29/23 - CRE, MDRO; 10/28/22 - MRSA MDRO Source:: ESBL-TISSUE; CRE/MDRO-back, urine ;MRSA-Blood Past Surgical History: Heart Catheterization Additional Past Surgical History / Comment(s): bilateral great toes amputated, 2nd toe lt foot partial amputation, multiple debridements of venous ulcers, colonoscopy, surgery as a child for undescended testicle., ABOVE THE KNEE AMPUTATION RIGHT LEG (JUNE 2017-[facility]) Past Anesthesia/Blood Transfusion Reactions: No Reported Reaction Date of Last Stent Placement:: 10/17/2022 Past Psychological History: Anxiety, Depression Smoking Status: Former smoker Past Alcohol Use History: Unable to Obtain Past Drug Use History: Unable to Obtain - Past Family History Father Family Medical History: Cancer Additional Family Medical History / Comment(s): Father from brain cancer Mother Family Medical History: Eye Disorder Additional Family Medical History / Comment(s): Glaucoma. Mother is . Medications and Allergies Home Medications Medication Instructions Recorded Confirmed Type traZODone HCL 50 mg PO HS 11/09/17 01/19/24 History Tamsulosin [Flomax] 0.4 mg PO DAILY 09/29/22 01/19/24 History amLODIPine [Norvasc] 10 mg PO DAILY #30 tab 07/03/23 01/19/24 Rx Clopidogrel [Plavix] 75 mg PO DAILY 10/02/23 01/19/24 History Glycopyrrolate 1 mg PO TID PRN 10/02/23 01/19/24 History Sennosides [Senokot] 8.6 mg PO DAILY 10/02/23 01/19/24 History Atorvastatin Calcium [Lipitor] 80 mg PO HS 11/10/23 01/19/24 History Insulin Lispro [humaLOG Kwikpen] See Protocol SQ AC-TID 11/10/23 01/19/24 History HYDROcodone/APAP 7.5-325MG [[place] 1 tab PO Q6HR PRN #12 tab 12/02/23 01/19/24 Rx 7.5-325] Spironolactone [Aldactone] 25 mg PO DAILY tab 12/02/23 01/19/24 Rx Acetaminophen Tab [Tylenol] 500 mg PO Q6H PRN 12/29/23 01/19/24 History Aspirin 81 mg PO DAILY 12/29/23 01/19/24 History Famotidine [Pepcid] 20 mg PO BID 12/29/23 01/19/24 History Ferrous Sulfate [Iron (65 MG 325 mg PO DAILY 12/29/23 01/19/24 History Elemental)] Gabapentin [Neurontin] 300 mg PO BID 12/29/23 01/19/24 History Insulin Glargine,Hum.rec.anlog 12 units SQ HS 12/29/23 01/19/24 History [Lantus Solostar Pen] Magnesium Citrate [Citrate of 296 ml PO RING 12/29/23 01/19/24 History Magnesia] hydrALAZINE HCL 10 mg PO TID 12/29/23 01/19/24 History Nystatin 100,000 Unit/gm Powd 1 applic TOPICAL BID each 01/04/24 01/19/24 Rx [Mycostatin Powder] Sodium Bicarbonate Tab 650 mg PO BID #60 tab 01/04/24 01/19/24 Rx Collagenase [Santyl Ointment] 1 applic TOPICAL DAILY #30 gm 01/05/24 01/19/24 Rx Ertapenem [INVanz] 1 gm IVPB Q24H #40 each 01/05/24 01/19/24 Rx metroNIDAZOLE [Flagyl] 500 mg PO TID #120 tab 01/05/24 01/19/24 Rx LORazepam [Ativan] 0.5 mg PO TID PRN 01/19/24 01/19/24 History Valsartan [Diovan] 320 mg PO DAILY 01/19/24 01/19/24 History Allergies Allergy/AdvReac Type Severity Reaction Status Date / Time No Known Allergies Allergy Verified 01/19/24 10:06 Physical Exam Vitals: Vital Signs Temp Pulse Resp BP Pulse Ox 01/19/24 11:48 52 L 16 113/58 99 01/19/24 10:51 56 L 18 128/89 98 01/19/24 09:47 88 18 128/95 99 01/19/24 08:37 98.6 F 01/19/24 07:40 57 L 16 130/62 97 01/19/24 04:32 99.0 F 83 18 164/98 98 01/19/24 03:25 100 F H 01/19/24 02:00 89 18 139/79 99 01/19/24 00:00 89 18 136/73 98 01/18/24 22:00 85 18 118/73 100 01/18/24 20:00 93 18 117/87 100 01/18/24 19:00 93 18 151/75 95 01/18/24 18:00 93 22 122/66 95 01/18/24 17:05 98.8 F 110 H 22 106/73 94 L Intake and Output 01/18/24 01/19/24 01/19/24 22:59 06:59 14:59 Output Total 40 Balance -40 Output: Urine 40 Uretheral (Davidson) 40 Other: Weight 86.183 kg GENERAL DESCRIPTION: Elderly male lying in bed, no distress. No tachypnea or accessory muscle of respiration use. HEENT: Shows Pallor , no scleral icterus. Oral mucous membrane is dry. NECK: Trachea central, no thyromegaly. LUNGS: Unlabored breathing. Clear to auscultation anteriorly. No wheeze or crackle. HEART: S1, S2, regular rate and rhythm. No loud murmur ABDOMEN: Soft, no tenderness , guarding or rigidity, no organomegaly EXTREMITIES: Bilateral AKA stumps are currently healed SKIN: Patient did have sacral pressure ulcer with some slough tissue and surrounding redness NEUROLOGICAL: The patient is awake, alert, mood and affect normal. Results CBC & Chem 7: 01/18/24 17:14 01/18/24 17:14 Labs: Abnormal Lab Results - Last 24 Hours (Table) 01/18/24 01/18/24 01/18/24 Range/Units 17:14 17:14 17:14 WBC 13.5 H (3.8-10.6) k/uL RBC 3.20 L (4.30-5.90) m/uL Hgb 8.9 L (13.0-17.5) gm/dL Hct 28.2 L (39.0-53.0) % RDW 17.5 H (11.5-15.5) % Plt Count 499 H (150-450) k/uL Neutrophils # 10.9 H (1.3-7.7) k/uL Sodium 147 H (137-145) mmol/L Chloride 117 H (98-107) mmol/L Carbon Dioxide 19 L (22-30) mmol/L Glucose 131 H (74-99) mg/dL Plasma Lactic Acid Ata (0.7-2.0) mmol/L AST 11 L (17-59) U/L Alkaline Phosphatase 134 H (38-126) U/L Troponin I (0.000-0.034) ng/mL Total Protein 6.0 L (6.3-8.2) g/dL Albumin 2.6 L (3.5-5.0) g/dL Urine Protein 2+ H (Negative) Urine Blood Trace H (Negative) Ur Leukocyte Esterase Large H (Negative) Urine RBC >182 H (0-5) /hpf Urine WBC 57 H (0-5) /hpf Urine Bacteria Few H (None) /hpf Urine Mucus Moderate H (None) /hpf Urine Yeast (Budding) Many H (None) /hpf 01/18/24 01/18/24 Range/Units 17:14 17:14 WBC (3.8-10.6) k/uL RBC (4.30-5.90) m/uL Hgb (13.0-17.5) gm/dL Hct (39.0-53.0) % RDW (11.5-15.5) % Plt Count (150-450) k/uL Neutrophils # (1.3-7.7) k/uL Sodium (137-145) mmol/L Chloride (98-107) mmol/L Carbon Dioxide (22-30) mmol/L Glucose (74-99) mg/dL Plasma Lactic Acid Ata 2.6 H* (0.7-2.0) mmol/L AST (17-59) U/L Alkaline Phosphatase (38-126) U/L Troponin I 0.035 H* (0.000-0.034) ng/mL Total Protein (6.3-8.2) g/dL Albumin (3.5-5.0) g/dL Urine Protein (Negative) Urine Blood (Negative) Ur Leukocyte Esterase (Negative) Urine RBC (0-5) /hpf Urine WBC (0-5) /hpf Urine Bacteria (None) /hpf Urine Mucus (None) /hpf Urine Yeast (Budding) (None) /hpf Assessment and Plan (1) Fever Current Visit: Yes Status: Acute Code(s): R50.9 - FEVER, UNSPECIFIED SNOMED Code(s): 307004937 (2) Leukocytosis Current Visit: Yes Status: Acute Code(s): D72.829 - ELEVATED WHITE BLOOD CELL COUNT, UNSPECIFIED SNOMED Code(s): 652198747 (3) Sacral decubitus ulcer Current Visit: No Status: Acute Code(s): L89.159 - PRESSURE ULCER OF SACRAL REGION, UNSPECIFIED STAGE SNOMED Code(s): 603287349 Plan: 1patient with an infected sacral pressure ulcer concerning for sacral osteomyelitis on his last visit culture positive for ESBL Klebsiella now has been brought back to the hospital concerning for weakness did have low hemoglobin patient also noticed to have a low-grade fever elevated white count with concern for possible sacral ulcer versus urinary source 2-General Surgery has been consulted for debridement and deep culture 3-we will start the patient on Invanz 1 g daily pending workup completion Care discussed with admitting physician We will follow on clinical condition and cultures to further adjust medication if needed Thank you for this consultation we will follow the patient along with you Dictation was produced using [employer] dictation software. please excuse any grammatical, word or spelling errors. Time with Patient: Greater than 30
[2024-01-20 06:08] LABS: Glucose,Whole Blood 53 mg/dL (70-110)
[2024-01-20] MEDS: DEXTROSE 50% SYRINGE 50 ML IVP PRN ×2 (06:15→16:44)
[2024-01-20 06:29] LABS: Glucose,Whole Blood 169 mg/dL (70-110)
[2024-01-20 11:45] LABS: Glucose,Whole Blood 68 mg/dL (70-110)
--- NOTE | 2024-01-20 12:03 | P.PN ---
Subjective Progress Note Date: 01/20/24 Principal diagnosis: Reason for follow-up is infected sacral pressure ulcer Patient is a 73-year-old male with a past medical history significant for diabetes mellitus hypertension hyperlipidemia osteoarthritis recently admitted to the hospital status post debridement of his sacral wound there was concern for sacral osteomyelitis with the OR culture positive for ESBL Klebsiella patient did get a PICC line and was advised a 6-week course of IV Invanz patient has not been brought back to the hospital concerning for lethargy and apparently did have low hemoglobin outpatient setting noticed to have slight worsening of his sacral wound prompting this consultation. On today's evaluation that is 01/20/2024,the patient remains to be afebrile, patient is on room air not requiring supplemental oxygen and denies any shortness of breath no chest pain or cough.Patient denies having any nausea or vomiting, no abdominal pain and no diarrhea some pain to the sacral wound but no worsening. No new lab has been repeated today blood cultures are pending Objective - Vital Signs Vital signs: Vital Signs Temp 97.6 F 01/20/24 11:07 Pulse 65 01/20/24 11:07 Resp 18 01/20/24 11:07 BP 102/51 01/20/24 11:07 Pulse Ox 94 L 01/20/24 11:07 FiO2 Intake & Output 01/19/24 01/20/24 01/20/24 18:59 06:59 18:59 Output Total 350 150 Balance -350 -150 Weight 74 kg Output: Urine 350 150 Uretheral (Davidson) 350 Other: Voiding Method Indwelling Catheter Indwelling Catheter - Exam GENERAL DESCRIPTION: An elderly male lying in bed in no distress RESPIRATORY SYSTEM: Unlabored breathing , decreased breath sounds at bases HEART: S1 S2 regular rate and rhythm , ABDOMEN: Soft , no tenderness EXTREMITIES: Bilateral AKA stumps are currently healed - Labs CBC & Chem 7: 01/18/24 17:14 01/18/24 17:14 Labs: Abnormal Lab Results - Last 24 Hours (Table) 01/19/24 01/20/24 01/20/24 Range/Units 17:12 06:07 06:28 POC Glucose (mg/dL) 123 H 53 L 169 H (70-110) mg/dL 01/20/24 Range/Units 11:43 POC Glucose (mg/dL) 68 L (70-110) mg/dL Microbiology - Last 24 Hours (Table) 01/18/24 17:14 Blood Culture - Preliminary Blood Assessment and Plan (1) Fever Current Visit: Yes Status: Acute Code(s): R50.9 - FEVER, UNSPECIFIED SNOMED Code(s): 892688949 (2) Leukocytosis Current Visit: Yes Status: Acute Code(s): D72.829 - ELEVATED WHITE BLOOD CELL COUNT, UNSPECIFIED SNOMED Code(s): 210318934 (3) Sacral decubitus ulcer Current Visit: No Status: Acute Code(s): L89.159 - PRESSURE ULCER OF SACRAL REGION, UNSPECIFIED STAGE SNOMED Code(s): 060370097 Plan: 1patient with an infected sacral pressure ulcer concerning for sacral osteomyelitis on his last visit culture positive for ESBL Klebsiella now has been brought back to the hospital concerning for weakness did have low hemo globin patient also noticed to have a low-grade fever elevated white count with concern for possible sacral ulcer versus urinary source 2-General Surgery has been consulted and plan is for for debridement and deep culture this afternoon which will be followed 3-I will continue the patient on Invanz while waiting for the workup to be completed Dictation was produced using [employer] dictation software. please excuse any grammatical, word or spelling errors. Time with Patient: Less than 30
[2024-01-20 12:28] LABS: Glucose,Whole Blood 143 mg/dL (70-110)
--- NOTE | 2024-01-20 12:35 | P.EN ---
Patient was scheduled for operative intervention with sacral decubitus debridement and operating room. Prior to being sent to the operating room, patient is noted to be bradycardic with heart rate in the 30s and requiring sternal rub. Current plan is to cancel surgical debridement and have evaluation by cardiology prior to any surgical intervention. Further recommendations and surgical timing to be discussed based on cardiology evaluation.
[2024-01-20 16:30] LABS: Glucose,Whole Blood 65 mg/dL (70-110)
[2024-01-20] MEDS: DEXTROSE 5% IN WATER 1,000 ML IV SCH (16:48)
--- NOTE | 2024-01-20 18:11 | P.PN ---
Progress Note - Text Progress Note Date: 01/20/24 Chief Complaint: Sacral decub ulcer Patient is a 73-year-old male with PMH of IDDM, hypertension, CKD stage II, chronic indwelling Davidson catheter, systolic CHF with ejection fraction of 40 to 45%, dementia, COPD , bilateral AKA was sent to the hospital for sacral decubi tus ulcers. Patient has dementia and is not able to provide any reasonable history . November 27, 2023 patient underwent loop colostomy by Dr. Maya, to prevent soiling of the decubitus ulcer. December 31, 2023-wound culture.Showing Klebsiella pneumoniae with ESBL. Discharged on IV ertapenem. And Flagyl. Patient was sent in because of some drop in hemoglobin outpatient to 7.3. P atient is wound picture was sent to infectious disease Dr. Barcenas's office. Fell there was some worsening. Patient admitted for the same. Consultation to Dr. Maya's team is done for possible debridement. According to the daughter at the bedside patient's been eating well. Colostomy bag working well. January 19: Sleepy tired. Early was supposed to go down for I&D. Heart rate did drop down to the 40s. Probably physiological. Surgery would like to have a cardiology clearance. Consulted. Blood pressures running around 100 systolic. Will DC hydralazine. Also hypoglycemic. DC Lantus. Patient is n.p.o. this morning.. Will cut back amlodipine to 5 mg in the morning and 2.5 mg at night. Because of hypoglycemia patient is also put on D5W. Active Medications Acetaminophen (Acetaminophen Tab 325 Mg Tab) 650 mg PO Q6HR PRN PRN Reason: Mild Pain or Fever > 100.5 Last Admin: 01/19/24 03:30 Dose: 650 mg Hydrocodone Bitart/Acetaminophen (Hydrocodone/Apap 5-325mg 1 Each Tab) 1 each PO Q4HR PRN PRN Reason: Moderate Pain (Scale 4 to 6) Last Admin: 01/20/24 01:29 Dose: 1 each Amlodipine Besylate (Amlodipine 5 Mg Tab) 5 mg PO DAILY [facility] Amlodipine Besylate (Amlodipine 5 Mg Tab) 2.5 mg PO HS [facility] Aspirin (Aspirin 81 Mg) 81 mg PO DAILY [facility] Last Admin: 01/20/24 09:09 Dose: 81 mg Atorvastatin Calcium (Atorvastatin 80 Mg Tab) 80 mg PO HS [facility] Last Admin: 01/19/24 20:41 Dose: 80 mg Dextrose/Water (Dextrose 50% Syringe 50 Ml) 25 ml IVP PER PROTOCOL PRN; Protocol PRN Reason: Hypoglycemia Last Admin: 01/20/24 16:44 Dose: 25 ml Dextrose/Water (Dextrose 50% Syringe 50 Ml) 50 ml IVP PER PROTOCOL PRN; Protocol PRN Reason: Hypoglycemia Last Admin: 01/20/24 11:51 Dose: 50 ml Famotidine (Famotidine 20 Mg Tab) 20 mg PO BID [facility] Last Admin: 01/20/24 09:09 Dose: 20 mg Ferrous Sulfate (Ferrous Sulfate 325 Mg Tab) 325 mg PO DAILY [facility] Last Admin: 01/20/24 09:09 Dose: 325 mg Gabapentin (Gabapentin 300 Mg Cap) 300 mg PO BID [facility] Last Admin: 01/20/24 09:09 Dose: 300 mg Heparin Sodium (Porcine) (Heparin Sodium,Porcine 5,000 Unit/Ml 1 Ml Vial) 5,000 unit SQ Q8HR [facility] Last Admin: 01/20/24 15:12 Dose: 5,000 unit Sodium Chloride (Saline 0.9%) 1,000 mls @ 75 mls/hr IV .[id number] [facility] Last Admin: 01/20/24 16:42 Dose: Not Given Ertapenem 1 gm/ Sodium (Chloride) 50 mls @ 100 mls/hr IVPB Q24H [facility]; Protocol Last Admin: 01/20/24 15:12 Dose: 100 mls/hr Dextrose/Water (Dextrose 5%-Water Iv Soln) 1,000 mls @ 100 mls/hr IV .Q10H [facility] Last Admin: 01/20/24 16:48 Dose: 100 mls/hr Insulin Aspart (Insulin Aspart (Novolog) 100 Unit/Ml Vial) 0 unit SQ AC-TID [facility]; Protocol Last Admin: 01/20/24 16:48 Dose: Not Given Lorazepam (Lorazepam 0.5 Mg Tab) 0.5 mg PO TID PRN PRN Reason: Anxiety Magnesium Citrate (Magnesium Citrate 296 Ml Bottle) 296 ml PO Douglas@0900 SINDHU Naloxone HCl (Naloxone 0.4 Mg/Ml 1 Ml Vial) 0.2 mg IV Q2M PRN PRN Reason: Opioid Reversal Collagenase 250 Unit /Gm Ointment 30 Gm Tube 1 each TOPICAL DAILY [facility]; Protocol Last Admin: 01/20/24 08:43 Dose: Not Given Nystatin (Nystatin 100,000 Unit/Gm Powd 15 Gm) 1 applic TOPICAL BID [facility]; Protocol Last Admin: 01/20/24 09:09 Dose: 1 applic Ondansetron HCl (Ondansetron 4 Mg/2 Ml Vial) 4 mg IVP Q8HR PRN PRN Reason: Nausea And Vomiting Senna (Sennosides 8.6 Mg Tab) 8.6 mg PO DAILY [facility] Last Admin: 01/20/24 09:09 Dose: 8.6 mg Sodium Bicarbonate (Sodium Bicarbonate Tab 650 Mg Tab) 650 mg PO BID [facility] Last Admin: 01/20/24 09:09 Dose: 650 mg Spironolactone (Spironolactone 25 Mg Tab) 25 mg PO DAILY [facility] Last Admin: 01/20/24 09:09 Dose: 25 mg Tamsulosin HCl (Tamsulosin 0.4 Mg Cap.Er.24h) 0.4 mg PO DAILY [facility] Last Admin: 01/20/24 09:09 Dose: 0.4 mg Trazodone HCl (Trazodone Hcl 50 Mg Tab) 50 mg PO HS [facility] Last Admin: 01/19/24 20:41 Dose: 50 mg Valsartan (Valsartan 160 Mg Tab) 320 mg PO DAILY [facility] Last Admin: 01/20/24 11:14 Dose: Not Given Social history: Former smoker. At home. Cared for by his daughter. Physical examination: VITAL SIGNS: 99.5, 58, 20, 103 x 53, 97% room air GENERAL: Laying in bed. Sleepy. Arousable EYES: [Pupils equal. Conjunctiva pale HEENT: External appearance of nose and ears normal, oral cavity less dry mucous membrane. NECK: JVD not raised; masses not palpable. HEART: First and second heart sounds are normal; no edema. LUNGS: Respiratory rate increased; decreased breath sounds. ABDOMEN: Soft, nontender, liver spleen not palpable, no masses palpable. Davidson catheter. Loop colostomy.-Stool present PSYCH: Sleepy but arousable MUSCULOSKELETAL:No Clubbing/cyanosis;muscles-grossly intact. Sacral decubitus wound-pictures in the chart NEUROLOGICAL: [Cranial nerves grossly intact; no facial asymmetry, bilateral above-knee amputation INVESTIGATIONS, reviewed in the clinical context: January 17: White count 13.5 hemoglobin 8.9 platelets 499 sodium 147 potassium 3.8 creatinine 0.92 lactic acid 2.6 repeat 1.4 Troponin I 0.035 EKG tracing personally reviewed by me-poor baseline. Intraventricular block. ST-T wave changes. Chest x-ray film personally reviewed by [id number] effusion Previous studies Wound culture [December 30]: Bacteroids, acalculous species, Klebsiella pneumoniae CT abdomen pelvis: Gallstones. Moderate right hydropneumothorax with surrounding consolidation atelectasis. Assessment plan: # Acute on chronic infected sacral decubitus ulcer, unstageable, present thing we are increasing drainage. Prior debridements diverting loop colostomy-November 27, [address] Sachin Maya Deep IN r debridement--[address] Alves January 04: IV Invanz 1 g every 24 hours, Flagyl 500 mg 3 times daily-per ID Dr. Saba team consulted for debridement -Chronic right-sided hydropneumothorax. 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 Uncontrolled with hypoglycemia Levemir-hold - follow Accu-Cheks D5W IV fluids -Chronic left kidney atrophy -Chronic bilateral above-knee amputation -Decrease in sodium. Metabolic encephalopathy multifactorial. Including hypoglycemia. -Bradycardia. Cardiology consulted -Primary osteoarthritis Piffard as needed -Essential hypertension,, blood pressure running low Amlodipine, cut back to 5 mg in the morning and 2.5 mg at night Diovan 320 mg daily -Severe cognitive impairment -Chronic bladder outflow obstruction BPH, with chronic Davidson catheter Flomax -Chronic congestive heart failure from systolic dysfunction EF 40 to 45% Aldactone -Peripheral neuropathy -Moderate protein calorie malnutrition decreased oral intake Ensure -DNR Cardiology consulted for bradycardia. Blood pressure running on the lower side. Amlodipine cut back to 5 mg in the morning and 2.5 mg at night from 10 mg. Hydralazine discontinued. Hypoglycemia.-D5W started Levemir discontinued. Adriano valdivia with some assistance. 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 Date of last positivie culture/infection: 12/31/23 - ESBL; 12/29/23 - CRE, MDRO; 10/28/22 - MRSA MDRO Source:: ESBL-TISSUE; CRE/MDRO-back, urine ;MRSA-Blood Past Surgical History: Heart Catheterization Additional Past Surgical History / Comment(s): bilateral great toes amputated, 2nd toe lt foot partial amputation, multiple debridements of venous ulcers, colonoscopy, surgery as a child for undescended testicle., ABOVE THE KNEE AMPUTATION RIGHT LEG (JUNE 2017-[facility]) Past Anesthesia/Blood Transfusion Reactions: No Reported Reaction Date of Last Stent Placement:: 10/17/2022 Past Psychological History: Anxiety, Depression Smoking Status: Former smoker Past Alcohol Use History: Unable to Obtain Past Drug Use History: Unable to Obtain
[2024-01-20 20:03] LABS: Glucose,Whole Blood 173 mg/dL (70-110)
[2024-01-21 06:08] LABS: Glucose,Whole Blood 143 mg/dL (70-110)
[2024-01-21] MEDS: amLODIPine 5 MG TAB PO SCH (09:07)
[2024-01-21 11:32] LABS: Glucose,Whole Blood 147 mg/dL (70-110)
--- NOTE | 2024-01-21 12:09 | P.CRDCN ---
History of Present Illness Consult date: 01/21/24 Reason for Consult (text): Cardiac clearance for debridement History of present illness: This is a 73-year-old male with a past medical history significant for paroxysmal atrial fibrillation, coronary artery disease, severe peripheral vascular disease, bilateral [id number] amputations, COPD, hypertension, hyperlipidemia, diabetes, dementia. Patient follows in the office with Dr. Starks but has not been seen since 2014. We have been asked to see the patient in consultation for preop clearance for wound debridement. Patient was admitted to the hospital on 01/17 and treated for acute on chronic infected sacral decubitus ulcer with history of diverting loop colostomy recently done in November of this year. Patient was taken yesterday to the OR for debridement but was found to have bradycardia in the 30s and patient required sternal rub. Patient currently denies any chest pain or pressure. Patient is noted to be confused. He denies shortness of breath. Blood pressure 129/81, heart rate currently 69, pulse ox 94% on room air. Patient's medications have been reviewed and he has not been on a beta-dominguez nor AV lelo blocking agents. DIAGNOSTICS: EKG reveals supraventricular mechanism with left bundle branch block, no signs of acute ischemia, telemetry is atrial fibrillation in the low to mid 50s Laboratory data: WBC 13.5, hemoglobin 8.9, platelet count 499. Sodium 147, potassium 3.8, creatinine 0.92. Troponin 0.035. Alkaline phosphatase 134. Urinalysis positive for UTI. Chest x-ray revealed small right pleural effusion with associated atelectasis. Films reviewed by Dr. Silver for small to moderate right pleural effusion. Current home cardiac medications include amlodipine 10 mg daily, aspirin 81 mg daily, atorvastatin 80 mg at bedtime, Plavix 75 mg daily, hydralazine 10 mg 3 times daily, spironolactone 25 mg daily, valsartan 320 mg daily. Most recent echocardiogram obtained in November 2023 revealed EF 50 to 55%, moderate RV enlargement, mild AOV regurgitation, severe LA volume increased, small pericardial effusion revealed ejection fraction 40 to 45% Cardiac catheterization history: October 2022 with stenting of the mid LAD Review Of Systems: At the time of my exam: CONSTITUTIONAL: Denies fever or chills. HEENT: Denies blurred vision, vision changes, or eye pain. Denies hemoptysis CARDIOVASCULAR: Denies chest pain. Denies orthopnea. Denies PND. Denies palpitations RESPIRATORY: Denies shortness of breath. GASTROINTESTINAL: Denies abdominal pain. Denies nausea or vomiting. HEMATOLOGIC: Denies bleeding disorders. GENITOURINARY: Denies any blood in urine. SKIN: Denies puritis. Denies rash. Physical examination: Gen: This is a 73-year-old male in no acute distress VS: reviewed HEENT: Head is atraumatic, normocephalic. Pupils equal, round. Sclerae is anicteric. NECK: Supple. No JVD. LUNGS: Clear to auscultation. No wheezes or rhonchi. No intercostal retractions. HEART: Regular rate and rhythm. No murmur. ABDOMEN: Soft No tenderness. EXTREMITIES: Bilateral AKA. NEUROLOGICAL: Patient is awake. Assessment: Acute on chronic infected sacral decubitus ulcer unstageable Bradycardia most likely atrial fibrillation with slow ventricular response Paroxysmal atrial fibrillation Small to moderate right pleural effusion History of coronary artery disease Severe peripheral artery disease with bilateral AKA COPD Hypertension Hyperlipidemia Diabetes Dementia Plan: Continue patient's home cardiac medications No beta-dominguez due to bradycardia Start patient on Lasix 40 mg daily for right pleural effusion Patient is moderate to high risk for perioperative complication due to multiple comorbidities. There is no absolute contraindications and if needed, patient may proceed with surgery. Would recommend that patient started on Eliquis 2.5 mg twice daily following procedure. Recommend lower dose of Eliquis due to history of anemia No need to repeat echocardiogram as this was done in November Further recommendations to follow based upon clinical course Thank you kindly for this consultation. Nurse practitioner note has been reviewed, I agree with documented findings and plan of care. Patient was seen and examined. 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 Date of last positivie culture/infection: 12/31/23 - ESBL; 12/29/23 - CRE, MDRO; 10/28/22 - MRSA MDRO Source:: ESBL-TISSUE; CRE/MDRO-back, urine ;MRSA-Blood Past Surgical History: Heart Catheterization Additional Past Surgical History / Comment(s): bilateral great toes amputated, 2nd toe lt foot partial amputation, multiple debridements of venous ulcers, colonoscopy, surgery as a child for undescended testicle., ABOVE THE KNEE AMPUTATION RIGHT LEG (JUNE 2017-[facility]) Past Anesthesia/Blood Transfusion Reactions: No Reported Reaction Date of Last Stent Placement:: 10/17/2022 Past Psychological History: Anxiety, Depression Additional Psychological History / Comment(s): . Smoking Status: Former smoker Past Alcohol Use History: Unable to Obtain Additional Past Alcohol Use History / Comment(s): no alcohol currently Past Drug Use History: Unable to Obtain - Past Family History Father Family Medical History: Cancer Additional Family Medical History / Comment(s): Father from brain cancer Mother Family Medical History: Eye Disorder Additional Family Medical History / Comment(s): Glaucoma. Mother is . Medications and Allergies Home Medications Medication Instructions Recorded Confirmed Type traZODone HCL 50 mg PO HS 11/09/17 01/19/24 History Tamsulosin [Flomax] 0.4 mg PO DAILY 09/29/22 01/19/24 History amLODIPine [Norvasc] 10 mg PO DAILY #30 tab 07/03/23 01/19/24 Rx Clopidogrel [Plavix] 75 mg PO DAILY 10/02/23 01/19/24 History Glycopyrrolate 1 mg PO TID PRN 10/02/23 01/19/24 History Sennosides [Senokot] 8.6 mg PO DAILY 10/02/23 01/19/24 History Atorvastatin Calcium [Lipitor] 80 mg PO HS 11/10/23 01/19/24 History Insulin Lispro [humaLOG Kwikpen] See Protocol SQ AC-TID 11/10/23 01/19/24 History HYDROcodone/APAP 7.5-325MG [[place] 1 tab PO Q6HR PRN #12 tab 12/02/23 01/19/24 Rx 7.5-325] Spironolactone [Aldactone] 25 mg PO DAILY tab 12/02/23 01/19/24 Rx Acetaminophen Tab [Tylenol] 500 mg PO Q6H PRN 12/29/23 01/19/24 History Aspirin 81 mg PO DAILY 12/29/23 01/19/24 History Famotidine [Pepcid] 20 mg PO BID 12/29/23 01/19/24 History Ferrous Sulfate [Iron (65 MG 325 mg PO DAILY 12/29/23 01/19/24 History Elemental)] Gabapentin [Neurontin] 300 mg PO BID 12/29/23 01/19/24 History Insulin Glargine,Hum.rec.anlog 12 units SQ HS 12/29/23 01/19/24 History [Lantus Solostar Pen] Magnesium Citrate [Citrate of 296 ml PO RING 12/29/23 01/19/24 History Magnesia] hydrALAZINE HCL 10 mg PO TID 12/29/23 01/19/24 History Nystatin 100,000 Unit/gm Powd 1 applic TOPICAL BID each 01/04/24 01/19/24 Rx [Mycostatin Powder] Sodium Bicarbonate Tab 650 mg PO BID #60 tab 01/04/24 01/19/24 Rx Collagenase [Santyl Ointment] 1 applic TOPICAL DAILY #30 gm 01/05/24 01/19/24 Rx Ertapenem [INVanz] 1 gm IVPB Q24H #40 each 01/05/24 01/19/24 Rx metroNIDAZOLE [Flagyl] 500 mg PO TID #120 tab 01/05/24 01/19/24 Rx LORazepam [Ativan] 0.5 mg PO TID PRN 01/19/24 01/19/24 History Valsartan [Diovan] 320 mg PO DAILY 01/19/24 01/19/24 History Allergies Allergy/AdvReac Type Severity Reaction Status Date / Time No Known Allergies Allergy Verified 01/19/24 10:06 Physical Exam Vitals: Vital Signs Temp Pulse Resp BP Pulse Ox 01/21/24 06:51 98.3 F 56 L 16 124/62 01/21/24 04:00 97.9 F 56 L 16 139/55 97 01/21/24 02:00 54 L 20 01/21/24 00:00 97.7 F 53 L 19 128/57 94 L 01/20/24 20:00 98 F 50 L 18 109/55 01/20/24 15:17 52 L 18 111/56 94 L 01/20/24 11:07 97.6 F 65 18 102/51 94 L 01/20/24 09:31 101/40 Intake and Output 01/20/24 01/21/24 01/21/24 22:59 06:59 14:59 Intake Total 237 100 Output Total 450 Balance -213 100 Intake: Oral 237 100 Output: Urine 450 Other: Voiding Method Indwelling Catheter Indwelling Catheter Weight 75.5 kg Results 01/18/24 17:14 01/18/24 17:14 Current Medications Generic Name Dose Route Start Last Admin Trade Name Freq PRN Reason Stop Dose Admin Acetaminophen 650 mg 01/19/24 00:20 01/19/24 03:30 Acetaminophen Tab 325 Mg Tab PO 650 mg Q6HR PRN Administration Mild Pain or Fever > 100.5 Hydrocodone Bitart/Acetaminophen 1 each 01/19/24 00:20 01/20/24 01:29 Hydrocodone/Apap 5-325mg 1 Each Tab PO 1 each Q4HR PRN Administration Moderate Pain (Scale 4 to 6) Amlodipine Besylate 5 mg 01/21/24 09:00 01/21/24 09:07 Amlodipine 5 Mg Tab PO 5 mg DAILY SINDHU Administration Amlodipine Besylate 2.5 mg 01/21/24 21:00 Amlodipine 2.5 Mg Tab PO HS SINDHU Aspirin 81 mg 01/19/24 12:00 01/21/24 09:07 Aspirin 81 Mg PO 81 mg DAILY SINDHU Administration Atorvastatin Calcium 80 mg 01/19/24 21:00 01/20/24 21:01 Atorvastatin 80 Mg Tab PO Not Given HS SINDHU Dextrose/Water 25 ml 01/19/24 13:59 01/20/24 16:44 Dextrose 50% Syringe 50 Ml IVP 25 ml PER PROTOCOL PRN Administration Hypoglycemia Protocol Dextrose/Water 50 ml 01/19/24 13:59 01/20/24 11:51 Dextrose 50% Syringe 50 Ml IVP 50 ml PER PROTOCOL PRN Administration Hypoglycemia Protocol Famotidine 20 mg 01/19/24 09:00 01/21/24 09:07 Famotidine 20 Mg Tab PO 20 mg BID SINDHU Administration Ferrous Sulfate 325 mg 01/19/24 12:00 01/21/24 09:07 Ferrous Sulfate 325 Mg Tab PO 325 mg DAILY SINDHU Administration Gabapentin 300 mg 01/19/24 12:00 01/21/24 09:07 Gabapentin 300 Mg Cap PO 300 mg BID SINDHU Administration Heparin Sodium (Porcine) 5,000 unit 01/19/24 08:00 01/21/24 09:07 Heparin Sodium,Porcine 5,000 Unit/Ml 1 Ml Vial SQ 5,000 unit Q8HR [facility] Administration Ertapenem 1 gm/ Sodium 50 mls @ 100 mls/hr 01/19/24 14:30 01/20/24 15:12 Chloride IVPB 100 mls/hr Q24H [facility] Administration Protocol Dextrose/Water 1,000 mls @ 100 mls/hr 01/20/24 16:45 01/20/24 23:38 Dextrose 5%-Water Iv Soln IV 100 mls/hr .Q10H [facility] Administration Insulin Aspart 0 unit 01/19/24 17:30 01/21/24 06:42 Insulin Aspart (Novolog) 100 Unit/Ml Vial SQ Not Given AC-TID [facility] Protocol Lorazepam 0.5 mg 01/19/24 11:40 Lorazepam 0.5 Mg Tab PO TID PRN Anxiety Magnesium Citrate 296 ml 01/24/24 09:00 Magnesium Citrate 296 Ml Bottle PO Ring@0900 SINDHU Naloxone HCl 0.2 mg 01/19/24 00:20 Naloxone 0.4 Mg/Ml 1 Ml Vial IV Q2M PRN Opioid Reversal Collagenase 250 Unit 1 each 01/19/24 12:00 01/20/24 08:43 /Gm Ointment 30 Gm TOPICAL Not Given Tube DAILY [facility] Protocol Nystatin 1 applic 01/19/24 12:00 01/20/24 21:01 Nystatin 100,000 Unit/Gm Powd 15 Gm TOPICAL Not Given BID [facility] Protocol Ondansetron HCl 4 mg 01/19/24 00:20 Ondansetron 4 Mg/2 Ml Vial IVP Q8HR PRN Nausea And Vomiting Senna 8.6 mg 01/19/24 12:00 01/21/24 09:07 Sennosides 8.6 Mg Tab PO 8.6 mg DAILY [facility] Administration Sodium Bicarbonate 650 mg 01/19/24 12:00 01/21/24 09:07 Sodium Bicarbonate Tab 650 Mg Tab PO 650 mg BID [facility] Administration Spironolactone 25 mg 01/19/24 12:00 01/21/24 09:07 Spironolactone 25 Mg Tab PO 25 mg DAILY [facility] Administration Tamsulosin HCl 0.4 mg 01/19/24 12:00 01/21/24 09:07 Tamsulosin 0.4 Mg Cap.Er.24h PO 0.4 mg DAILY [facility] Administration Trazodone HCl 50 mg 01/19/24 21:00 01/20/24 20:55 Trazodone Hcl 50 Mg Tab PO Not Given HS [facility]INDHU Valsartan 320 mg 01/19/24 12:15 01/21/24 09:07 Valsartan 160 Mg Tab PO 320 mg DAILY [facility] Administration Intake and Output 01/20/24 01/21/24 01/21/24 22:59 06:59 14:59 Intake Total 237 100 Output Total 450 Balance -213 100 Intake: Oral 237 100 Output: Urine 450 Other: Voiding Method Indwelling Catheter Indwelling Catheter Weight 75.5 kg 01/18/24 17:14 01/18/24 17:14
--- NOTE | 2024-01-21 14:47 | P.PN ---
Subjective Progress Note Date: 01/21/24 SURGICAL PROGRESS NOTE CHIEF COMPLAINT: Sacral decubitus ulcer HISTORY OF PRESENT ILLNESS: Patient sitting in bed comfortably. No complaints. Patient had bradycardia yesterday and surgical debridement of the sacral ulcer was canceled. Patient evaluated by cardiology this morning. They have cleared patient for surgery but considered him a moderate to high risk. PHYSICAL EXAM: VITAL SIGNS: Reviewed. GENERAL: Well-developed in no acute distress. ABDOMEN: Soft. Nondistended. Nontender. Ostomy functioning NEUROLOGIC: Alert and oriented. Cranial nerves II through XII grossly intact. ASSESSMENT: 1. Sacral decubitus ulcer PLAN: -Continue antibiotics -Debridement of sacral decubitus ulcer to be determined Physician Boarding Mother note has been reviewed by physician. Signing provider agrees with the documented findings, assessment, and plan of care. Attestation Patient seen and examined at bedside. Initially awaited recommendations by cardiology and patient is moderate to high risk based on risk stratification. Timing of debridement of sacral decubitus ulcer to be determined. Leandra Lambert, Objective - Vital Signs Vital signs: Vital Signs Temp 97.8 F 01/21/24 11:02 Pulse 69 01/21/24 11:02 Resp 18 01/21/24 11:02 BP 129/81 01/21/24 11:02 Pulse Ox 94 L 01/21/24 11:02 FiO2 Intake & Output 01/20/24 01/21/24 01/21/24 18:59 06:59 18:59 Intake Total 337 Output Total 300 150 500 Balance -300 187 -500 Weight 75.5 kg 75.5 kg Intake: Oral 337 Output: Urine 300 150 500 Other: Voiding Method Indwelling Catheter Indwelling Catheter Indwelling Catheter # Bowel Movements 1 - Labs CBC & Chem 7: 01/18/24 17:14 01/18/24 17:14 Labs: Abnormal Lab Results - Last 24 Hours (Table) 01/20/24 01/20/24 01/21/24 Range/Units 16:28 19:59 06:06 POC Glucose (mg/dL) 65 L 173 H 143 H (70-110) mg/dL 01/21/24 Range/Units 11:30 POC Glucose (mg/dL) 147 H (70-110) mg/dL Microbiology - Last 24 Hours (Table) 01/18/24 17:14 Blood Culture - Preliminary Blood
--- NOTE | 2024-01-21 15:04 | P.PN ---
Progress Note - Text Progress Note Date: 01/21/24 Chief Complaint: Sacral decub ulcer Patient is a 73-year-old male with PMH of IDDM, hypertension, CKD stage II, chronic indwelling Davidson catheter, systolic CHF with ejection fraction of 40 to 45%, dementia, COPD , bilateral AKA was sent to the hospital for sacral decubi tus ulcers. Patient has dementia and is not able to provide any reasonable history . November 27, 2023 patient underwent loop colostomy by Dr. Maya, to prevent soiling of the decubitus ulcer. December 31, 2023-wound culture.Showing Klebsiella pneumoniae with ESBL. Discharged on IV ertapenem. And Flagyl. Patient was sent in because of some drop in hemoglobin outpatient to 7.3. P atient is wound picture was sent to infectious disease Dr. Barcenas's office. Fell there was some worsening. Patient admitted for the same. Consultation to Dr. Maya's team is done for possible debridement. According to the daughter at the bedside patient's been eating well. Colostomy bag working well. January 19: Sleepy tired. Early was supposed to go down for I&D. Heart rate did drop down to the 40s. Probably physiological. Surgery would like to have a cardiology clearance. Consulted. Blood pressures running around 100 systolic. Will DC hydralazine. Also hypoglycemic. DC Lantus. Patient is n.p.o. this morning.. Will cut back amlodipine to 5 mg in the morning and 2.5 mg at night. Because of hypoglycemia patient is also put on D5W. January 20: Blood pressure medication adjusted yesterday. Blood pressure doing much better today. Patient seen by cardiology. With clearance. Deemed high risk for perioperative care. Though this is a low risk surgery itself. Patient may occasionally answer question. Hypoglycemia improved Eating small amounts with assistance Active Medications Acetaminophen (Acetaminophen Tab 325 Mg Tab) 650 mg PO Q6HR PRN PRN Reason: Mild Pain or Fever > 100.5 Last Admin: 01/19/24 03:30 Dose: 650 mg Hydrocodone Bitart/Acetaminophen (Hydrocodone/Apap 5-325mg 1 Each Tab) 1 each PO Q4HR PRN PRN Reason: Moderate Pain (Scale 4 to 6) Last Admin: 01/20/24 01:29 Dose: 1 each Amlodipine Besylate (Amlodipine 5 Mg Tab) 5 mg PO DAILY SINDHU Last Admin: 01/21/24 09:07 Dose: 5 mg Amlodipine Besylate (Amlodipine 2.5 Mg Tab) 2.5 mg PO HS [facility] Aspirin (Aspirin 81 Mg) 81 mg PO DAILY [facility] Last Admin: 01/21/24 09:07 Dose: 81 mg Atorvastatin Calcium (Atorvastatin 80 Mg Tab) 80 mg PO HS [facility] Last Admin: 01/20/24 21:01 Dose: Not Given Dextrose/Water (Dextrose 50% Syringe 50 Ml) 25 ml IVP PER PROTOCOL PRN; Protocol PRN Reason: Hypoglycemia Last Admin: 01/20/24 16:44 Dose: 25 ml Dextrose/Water (Dextrose 50% Syringe 50 Ml) 50 ml IVP PER PROTOCOL PRN; Protocol PRN Reason: Hypoglycemia Last Admin: 01/20/24 11:51 Dose: 50 ml Famotidine (Famotidine 20 Mg Tab) 20 mg PO BID [facility] Last Admin: 01/21/24 09:07 Dose: 20 mg Ferrous Sulfate (Ferrous Sulfate 325 Mg Tab) 325 mg PO DAILY [facility] Last Admin: 01/21/24 09:07 Dose: 325 mg Furosemide (Furosemide 40 Mg Tab) 40 mg PO DAILY [facility] Gabapentin (Gabapentin 300 Mg Cap) 300 mg PO BID [facility] Last Admin: 01/21/24 09:07 Dose: 300 mg Heparin Sodium (Porcine) (Heparin Sodium,Porcine 5,000 Unit/Ml 1 Ml Vial) 5,000 unit SQ Q8HR [facility] Last Admin: 01/21/24 09:07 Dose: 5,000 unit Ertapenem 1 gm/ Sodium (Chloride) 50 mls @ 100 mls/hr IVPB Q24H [facility]; Protocol Last Admin: 01/21/24 15:00 Dose: 100 mls/hr Dextrose/Water (Dextrose 5%-Water Iv Soln) 1,000 mls @ 100 mls/hr IV .Q10H [facility] Last Admin: 01/21/24 12:12 Dose: 100 mls/hr Insulin Aspart (Insulin Aspart (Novolog) 100 Unit/Ml Vial) 0 unit SQ AC-TID [facility]; Protocol Last Admin: 01/21/24 12:06 Dose: Not Given Lorazepam (Lorazepam 0.5 Mg Tab) 0.5 mg PO TID PRN PRN Reason: Anxiety Magnesium Citrate (Magnesium Citrate 296 Ml Bottle) 296 ml PO Douglas@0900 [facility] Naloxone HCl (Naloxone 0.4 Mg/Ml 1 Ml Vial) 0.2 mg IV Q2M PRN PRN Reason: Opioid Reversal Collagenase 250 Unit /Gm Ointment 30 Gm Tube 1 each TOPICAL DAILY [facility]; Protocol Last Admin: 01/21/24 09:31 Dose: Not Given Nystatin (Nystatin 100,000 Unit/Gm Powd 15 Gm) 1 applic TOPICAL BID [facility]; Protocol Last Admin: 01/21/24 09:31 Dose: Not Given Ondansetron HCl (Ondansetron 4 Mg/2 Ml Vial) 4 mg IVP Q8HR PRN PRN Reason: Nausea And Vomiting Senna (Sennosides 8.6 Mg Tab) 8.6 mg PO DAILY [facility] Last Admin: 01/21/24 09:07 Dose: 8.6 mg Sodium Bicarbonate (Sodium Bicarbonate Tab 650 Mg Tab) 650 mg PO BID [facility] Last Admin: 01/21/24 09:07 Dose: 650 mg Spironolactone (Spironolactone 25 Mg Tab) 25 mg PO DAILY [facility] Last Admin: 01/21/24 09:07 Dose: 25 mg Tamsulosin HCl (Tamsulosin 0.4 Mg Cap.Er.24h) 0.4 mg PO DAILY [facility] Last Admin: 01/21/24 09:07 Dose: 0.4 mg Trazodone HCl (Trazodone Hcl 50 Mg Tab) 50 mg PO HS [facility] Last Admin: 01/20/24 20:55 Dose: Not Given Valsartan (Valsartan 160 Mg Tab) 320 mg PO DAILY [facility] Last Admin: 01/21/24 09:07 Dose: 320 mg Social history: Former smoker. At home. Cared for by his daughter. Physical examination: VITAL SIGNS: 97.8, 69, 18, [birth year]/13/1980, 94% room air at GENERAL: Laying in bed. Awake lethargic but arousable EYES: [Pupils equal. Conjunctiva pale HEENT: External appearance of nose and ears normal, oral cavity less dry mucous membrane. NECK: JVD not raised; masses not palpable. HEART: First and second heart sounds are normal; no edema. LUNGS: Respiratory rate increased; decreased breath sounds. ABDOMEN: Soft, nontender, liver spleen not palpable, no masses palpable. Davidson catheter. Loop colostomy.-Stool present PSYCH: Sleepy but arousable MUSCULOSKELETAL:No Clubbing/cyanosis;muscles-grossly intact. Sacral decubitus wound-pictures in the chart NEUROLOGICAL: [Cranial nerves grossly intact; no facial asymmetry, bilateral above-knee amputation INVESTIGATIONS, reviewed in the clinical context: January 17: White count 13.5 hemoglobin 8.9 platelets 499 sodium 147 potassium 3.8 creatinine 0.92 lactic acid 2.6 repeat 1.4 Troponin I 0.035 EKG tracing personally reviewed by me-poor baseline. Intraventricular block. ST-T wave changes. Chest x-ray film personally reviewed by [id number] effusion Previous studies Wound culture [December 30]: Bacteroids, acalculous species, Klebsiella pneumoniae CT abdomen pelvis: Gallstones. Moderate right hydropneumothorax with surrounding consolidation atelectasis. Assessment plan: # Acute on chronic infected sacral decubitus ulcer, unstageable, present thing we are increasing drainage. Prior debridements diverting loop colostomy-November 27, [address] Sachin Maya Deep IN r debridement--[address] Alves January 04: IV Invanz 1 g every 24 hours, Flagyl 500 mg 3 times daily-per ID For debridement hopefully tomorrow -Chronic right-sided hydropneumothorax. 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 Uncontrolled with hypoglycemia Levemir-hold - follow Accu-Cheks D5W IV fluids -Chronic left kidney atrophy -Chronic bilateral above-knee amputation -Decrease in sodium. Metabolic encephalopathy multifactorial. Including hypoglycemia. -Bradycardia. Cardiology consulted -Primary osteoarthritis [place] as needed -Essential hypertension,, blood pressure running low Amlodipine, cut back to 5 mg in the morning and 2.5 mg at night. Hydralazine discontinued Diovan 320 mg daily -Severe cognitive impairment -Chronic bladder outflow obstruction BPH, with chronic Davidson catheter Flomax -Chronic congestive heart failure from systolic dysfunction EF 40 to 45% Aldactone -Peripheral neuropathy -Moderate protein calorie malnutrition decreased oral intake Ensure -DNR, per daughter Blood pressure stabilized. Plan for debridement tomorrow. Prognosis guarded 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 Date of last positivie culture/infection: 12/31/23 - ESBL; 12/29/23 - CRE, MDRO; 10/28/22 - MRSA MDRO Source:: ESBL-TISSUE; CRE/MDRO-back, urine ;MRSA-Blood Past Surgical History: Heart Catheterization Additional Past Surgical History / Comment(s): bilateral great toes amputated, 2nd toe lt foot partial amputation, multiple debridements of venous ulcers, colonoscopy, surgery as a child for undescended testicle., ABOVE THE KNEE AMP UTATION RIGHT LEG (JUNE 2017-[facility]) Past Anesthesia/Blood Transfusion Reactions: No Reported Reaction Date of Last Stent Placement:: 10/17/2022 Past Psychological History: Anxiety, Depression Smoking Status: Former smoker Past Alcohol Use History: Unable to Obtain Past Drug Use History: Unable to Obtain
--- NOTE | 2024-01-21 15:55 | P.PN ---
Subjective Progress Note Date: 01/21/24 Principal diagnosis: Reason for follow-up is infected sacral pressure ulcer Patient is a 73-year-old male with a past medical history significant for diabetes mellitus hypertension hyperlipidemia osteoarthritis recently admitted to the hospital status post debridement of his sacral wound there was concern for sacral osteomyelitis with the OR culture positive for ESBL Klebsiella patient did get a PICC line and was advised a 6-week course of IV Invanz patient has not been brought back to the hospital concerning for lethargy and apparently did have low hemoglobin outpatient setting noticed to have slight worsening of his sacral wound prompting this consultation. On today's evaluation that is 01/21/2024, the patient continues to be afebrile, the patient is on room air and breathing comfortably, the Pt denies having any chest pain or cough, the patient denies having any abdominal pain no vomiting or any worsening pain to the sacral wound. No new lab has been repeated today Objective - Vital Signs Vital signs: Vital Signs Temp 97.8 F 01/21/24 11:02 Pulse 69 01/21/24 11:02 Resp 18 01/21/24 11:02 BP 129/81 01/21/24 11:02 Pulse Ox 94 L 01/21/24 11:02 FiO2 Intake & Output 01/20/24 01/21/24 01/21/24 18:59 06:59 18:59 Intake Total 337 Output Total 300 150 350 Balance -300 187 -350 Weight 75.5 kg 75.5 kg Intake: Oral 337 Output: Urine 300 150 350 Other: Voiding Method Indwelling Catheter Indwelling Catheter Indwelling Catheter # Bowel Movements 1 - Exam GENERAL DESCRIPTION: An elderly male lying in bed in no distress RESPIRATORY SYSTEM: Unlabored breathing , decreased breath sounds at bases HEART: S1 S2 regular rate and rhythm , ABDOMEN: Soft , no tenderness EXTREMITIES: Bilateral AKA stumps are currently healed - Labs CBC & Chem 7: 01/18/24 17:14 01/18/24 17:14 Labs: Abnormal Lab Results - Last 24 Hours (Table) 01/20/24 01/20/24 01/21/24 Range/Units 16:28 19:59 06:06 POC Glucose (mg/dL) 65 L 173 H 143 H (70-110) mg/dL 01/21/24 Range/Units 11:30 POC Glucose (mg/dL) 147 H (70-110) mg/dL Microbiology - Last 24 Hours (Table) 01/18/24 17:14 Blood Culture - Preliminary Blood Assessment and Plan (1) Fever Current Visit: Yes Status: Acute Code(s): R50.9 - FEVER, UNSPECIFIED SNOMED Code(s): 049558547 (2) Leukocytosis Current Visit: Yes Status: Acute Code(s): D72.829 - ELEVATED WHITE BLOOD CELL COUNT, UNSPECIFIED SNOMED Code(s): 322419272 (3) Sacral decubitus ulcer Current Visit: No Status: Acute Code(s): L89.159 - PRESSURE ULCER OF SACRAL REGION, UNSPECIFIED STAGE SNOMED Code(s): 051274955 Plan: 1patient with an infected sacral pressure ulcer concerning for sacral osteomyelitis on his last visit culture positive for ESBL Klebsiella now has been brought back to the hospital concerning for weakness did have low hemoglobin patient also noticed to have a low-grade fever elevated white count with concern for possible sacral ulcer versus urinary source 2-General Surgery has been consulted and plan is for for debridement and deep culture procedure was canceled yesterday because of bradycardia cardiology has been consulted 3-patient to continue with Invanz while waiting for the workup to be completed Dictation was produced using [employer] dictation software. please excuse any grammatical, word or spelling errors. Time with Patient: Less than 30
[2024-01-21 16:37] LABS: Glucose,Whole Blood 166 mg/dL (70-110)
[2024-01-21 19:55] LABS: Glucose,Whole Blood 193 mg/dL (70-110)
[2024-01-21] MEDS: amLODIPine 2.5 MG TAB PO SCH (21:34)
[2024-01-22 06:06] LABS: Glucose,Whole Blood 147 mg/dL (70-110)
[2024-01-22] MEDS: FUROSEMIDE 40 MG TAB PO SCH (08:20)
--- NOTE | 2024-01-22 09:27 | P.PN ---
Subjective Progress Note Date: 01/22/24 Reason for Consult (text): Cardiac clearance for debridement History of present illness: This is a 73-year-old male with a past medical history significant for paroxysmal atrial fibrillation, coronary artery disease, severe peripheral vascular disease, bilateral [id number]-[id number] amputations, COPD, hypertension, hyperlipidemia, diabetes, dementia. Patient follows in the office with Dr. Starks but has not been seen since 2014. We have been asked to see the patient in consultation for preop clearance for wound debridement. Patient was admitted to the hospital on 01/17 and treated for acute on chronic infected sacral decubitus ulcer with history of diverting loop colostomy recently done in November of this year. Patient was taken yesterday to the OR for debridement but was found to have bradycardia in the 30s and patient required sternal rub. Patient currently denies any chest pain or pressure. Patient is noted to be confused. He denies shortness of breath. Blood pressure 129/81, heart rate currently 69, pulse ox 94% on room air. Patient's medications have been reviewed and he has not been on a beta-dominguez nor AV lelo blocking agents. DIAGNOSTICS: EKG reveals supraventricular mechanism with left bundle branch block, no signs of acute ischemia, telemetry is atrial fibrillation in the low to mid 50s Laboratory data: WBC 13.5, hemoglobin 8.9, platelet count 499. Sodium 147, potassium 3.8, creatinine 0.92. Troponin 0.035. Alkaline phosphatase 134. Urinalysis positive for UTI. Chest x-ray revealed small right pleural effusion with associated atelectasis. Films reviewed by Dr. Silver for small to moderate right pleural effusion. Current home cardiac medications include amlodipine 10 mg daily, aspirin 81 mg daily, atorvastatin 80 mg at bedtime, Plavix 75 mg daily, hydralazine 10 mg 3 times daily, spironolactone 25 mg daily, valsartan 320 mg daily. Most recent echocardiogram obtained in November 2023 revealed EF 50 to 55%, moderate RV enlargement, mild AOV regurgitation, severe LA volume increased, small pericardial effusion revealed ejection fraction 40 to 45% Cardiac catheterization history: October 2022 with stenting of the mid LAD 01/21 Physical examination: Gen: This is a 73-year-old male in no acute distress VS: reviewed HEENT: Head is atraumatic, normocephalic. Pupils equal, round. Sclerae is anicteric. NECK: Supple. No JVD. LUNGS: Clear to auscultation. No wheezes or rhonchi. No intercostal retract ions. HEART: Regular rate and rhythm. No murmur. ABDOMEN: Soft No tenderness. EXTREMITIES: Bilateral AKA. NEUROLOGICAL: Patient is awake. Assessment: Acute on chronic infected sacral decubitus ulcer unstageable Bradycardia most likely atrial fibrillation with slow ventricular response Paroxysmal atrial fibrillation Small to moderate right pleural effusion History of coronary artery disease Severe peripheral artery disease with bilateral AKA COPD Hypertension Hyperlipidemia Diabetes Dementia Plan: Continue patient's home cardiac medications No beta-dominguez due to bradycardia Start patient on Lasix 40 mg daily for right pleural effusion Patient is moderate to high risk for perioperative complication due to multiple comorbidities. There is no absolute contraindications and if needed, patient may proceed with surgery. Would recommend that patient started on Eliquis 2.5 mg twice daily following procedure. Recommend lower dose of Eliquis due to history of anemia No need to repeat echocardiogram as this was done in November Further recommendations to follow based upon clinical course Thank you kindly for this consultation. Nurse practitioner note has been reviewed, I agree with documented findings and plan of care. Patient was seen and examined. Objective - Vital Signs Vital signs: Vital Signs Temp 98.3 F 01/22/24 07:52 Pulse 61 01/22/24 07:52 Resp 20 01/22/24 07:52 BP 145/62 01/22/24 07:52 Pulse Ox 95 01/22/24 08:22 FiO2 Intake & Output 01/21/24 01/22/24 01/22/24 18:59 06:59 18:59 Intake Total 240 Output Total 500 450 275 Balance -260 -450 -275 Weight 75.5 kg 76.5 kg Intake: Oral 240 Output: Urine 500 450 275 Other: Voiding Method Indwelling Catheter Indwelling Catheter Indwelling Catheter # Bowel Movements 1 2 - Labs CBC & Chem 7: 01/18/24 17:14 01/18/24 17:14 Labs: Abnormal Lab Results - Last 24 Hours (Table) 01/21/24 01/21/24 01/21/24 Range/Units 11:30 16:36 19:53 POC Glucose (mg/dL) 147 H 166 H 193 H (70-110) mg/dL 01/22/24 Range/Units 06:04 POC Glucose (mg/dL) 147 H (70-110) mg/dL Microbiology - Last 24 Hours (Table) 01/18/24 17:14 Blood Culture - Preliminary Blood
[2024-01-22 11:32] LABS: Glucose,Whole Blood 129 mg/dL (70-110)
--- NOTE | 2024-01-22 11:56 | P.PN ---
Subjective Progress Note Date: 01/22/24 Reason for Consult (text): Cardiac clearance for debridement History of present illness: This is a 73-year-old male with a past medical history significant for paroxysmal atrial fibrillation, coronary artery disease, severe peripheral vascular disease, bilateral ucpxz-ufk-eyho amputations, COPD, hypertension, hyperlipidemia, diabetes, dementia. Patient follows in the office with Dr. Starks but has not been seen since 2014. We have been asked to see the patient in consultation for preop clearance for wound debridement. Patient was admitted to the hospital on 01/17 and treated for acute on chronic infected sacral decubitus ulcer with history of diverting loop colostomy recently done in November of this year. Patient was taken yesterday to the OR for debridement but was found to have bradycardia in the 30s and patient required sternal rub. Patient currently denies any chest pain or pressure. Patient is noted to be confused. He denies shortness of breath. Blood pressure 129/81, heart rate currently 69, pulse ox 94% on room air. Patient's medications have been reviewed and he has not been on a beta-dominguez nor AV lelo blocking agents. DIAGNOSTICS: EKG reveals supraventricular mechanism with left bundle branch block, no signs of acute ischemia, telemetry is atrial fibrillation in the low to mid 50s Laboratory data: WBC 13.5, hemoglobin 8.9, platelet count 499. Sodium 147, potassium 3.8, creatinine 0.92. Troponin 0.035. Alkaline phosphatase 134. Urinalysis positive for UTI. Chest x-ray revealed small right pleural effusion with associated atelectasis. Films reviewed by Dr. Silver for small to moderate right pleural effusion. Current home cardiac medications include amlodipine 10 mg daily, aspirin 81 mg daily, atorvastatin 80 mg at bedtime, Plavix 75 mg daily, hydralazine 10 mg 3 times daily, spironolactone 25 mg daily, valsartan 320 mg daily. Most recent echocardiogram obtained in November 2023 revealed EF 50 to 55%, moderate RV enlargement, mild AOV regurgitation, severe LA volume increased, small pericardial effusion revealed ejection fraction 40 to 45% Cardiac catheterization history: October 2022 with stenting of the mid LAD 01/21 Patient's heart rate has been running in the 50s and 60s. Blood pressure 145/ 62, pulse ox 89% on room air. Physical examination: Gen: This is a 73-year-old male in no acute distress VS: reviewed HEENT: Head is atraumatic, normocephalic. Pupils equal, round. Sclerae is anicteric. NECK: Supple. No JVD. LUNGS: Clear to auscultation. No wheezes or rhonchi. No intercostal ret ractions. HEART: Regular rate and rhythm. No murmur. ABDOMEN: Soft No tenderness. EXTREMITIES: Bilateral AKA. NEUROLOGICAL: Patient is awake. Assessment: Acute on chronic infected sacral decubitus ulcer unstageable Bradycardia most likely atrial fibrillation with slow ventricular response Paroxysmal atrial fibrillation Small to moderate right pleural effusion History of coronary artery disease Severe peripheral artery disease with bilateral AKA COPD Hypertension Hyperlipidemia Diabetes Dementia Plan: Continue current cardiac medications: Amlodipine 5 mg in the morning 2 point 5 in the evening, aspirin 81 mg daily, atorvastatin 80 mg at bedtime, Aldactone 25 mg daily, valsartan 320 mg daily No beta-dominguez due to bradycardia Continue patient on Lasix 40 mg daily for right pleural effusion Patient is moderate to high risk for perioperative complication due to multiple comorbidities. There is no absolute contraindications and if needed, patient may proceed with surgery. Would recommend that patient started on Eliquis 2.5 mg twice daily following procedure. Recommend lower dose of Eliquis due to history of anemia No need to repeat echocardiogram as this was done in November Cardiology will sign off this case and follow on an as-needed basis. Please reconsult for any new concerns. Nurse practitioner note has been reviewed, I agree with documented findings and plan of care. Patient was seen and examined. Objective - Vital Signs Vital signs: Vital Signs Temp 98.1 F 01/22/24 10:53 Pulse 58 L 01/22/24 10:53 Resp 18 01/22/24 10:53 BP 137/85 01/22/24 10:53 Pulse Ox 91 L 01/22/24 10:53 FiO2 Intake & Output 01/21/24 01/22/24 01/22/24 18:59 06:59 18:59 Intake Total 240 Output Total 500 450 275 Balance -260 -450 -275 Weight 75.5 kg 76.5 kg Intake: Oral 240 Output: Urine 500 450 275 Other: Voiding Method Indwelling Catheter Indwelling Catheter Indwelling Catheter # Bowel Movements 1 2 - Labs CBC & Chem 7: 01/18/24 17:14 01/18/24 17:14 Labs: Abnormal Lab Results - Last 24 Hours (Table) 01/21/24 01/21/24 01/22/24 Range/Units 16:36 19:53 06:04 POC Glucose (mg/dL) 166 H 193 H 147 H (70-110) mg/dL 01/22/24 Range/Units 11:30 POC Glucose (mg/dL) 129 H (70-110) mg/dL Microbiology - Last 24 Hours (Table) 01/18/24 17:14 Blood Culture - Preliminary Blood
[2024-01-22 12:42] LABS: Anisocytosis Slight; HCT 22.5 % (39.0-53.0); Hypochromasia Moderate; MCH 27.1 pg (25.0-35.0); MCV 87.3 fL (80.0-100.0); Mean Platelet Volume 9.2; Platelet Count 283 k/uL (150-450); RBC 2.58 m/uL (4.30-5.90); RDW 16.8 % (11.5-15.5); WBC 7.5 k/uL (3.8-10.6)
--- NOTE | 2024-01-22 13:04 | P.PN ---
Subjective Progress Note Date: 01/22/24 Principal diagnosis: Reason for follow-up is infected sacral pressure ulcer Patient is a 73-year-old male with a past medical history significant for diabetes mellitus hypertension hyperlipidemia osteoarthritis recently admitted to the hospital status post debridement of his sacral wound there was concern for sacral osteomyelitis with the OR culture positive for ESBL Klebsiella patient did get a PICC line and was advised a 6-week course of IV Invanz patient has not been brought back to the hospital concerning for lethargy and apparently did have low hemoglobin outpatient setting noticed to have slight worsening of his sacral wound prompting this consultation. On today's evaluation that is 01/22/2024, Patient is afebrile patient is currently on room air and is breathing comfortably no distress the patient remained to be sleepy did not answer any question no vomiting diarrhea or any change reported by the nursing staff. The patient white count 7.5 blood culture have been negative so far Objective - Vital Signs Vital signs: Vital Signs Temp 98.1 F 01/22/24 10:53 Pulse 58 L 01/22/24 10:53 Resp 18 01/22/24 10:53 BP 137/85 01/22/24 10:53 Pulse Ox 91 L 01/22/24 10:53 FiO2 Intake & Output 01/21/24 01/22/24 01/22/24 18:59 06:59 18:59 Intake Total 240 Output Total 500 450 275 Balance -260 -450 -275 Weight 75.5 kg 76.5 kg Intake: Oral 240 Output: Urine 500 450 275 Other: Voiding Method Indwelling Catheter Indwelling Catheter Indwelling Catheter # Bowel Movements 1 2 - Exam GENERAL DESCRIPTION: An elderly male lying in bed in no distress RESPIRATORY SYSTEM: Unlabored breathing , decreased breath sounds at bases HEART: S1 S2 regular rate and rhythm , ABDOMEN: Soft , no tenderness EXTREMITIES: Bilateral AKA stumps are currently healed - Labs CBC & Chem 7: 01/22/24 12:16 01/18/24 17:14 Labs: Abnormal Lab Results - Last 24 Hours (Table) 01/21/24 01/21/24 01/22/24 Range/Units 16:36 19:53 06:04 POC Glucose (mg/dL) 166 H 193 H 147 H (70-110) mg/dL 01/22/24 Range/Units 11:30 POC Glucose (mg/dL) 129 H (70-110) mg/dL Microbiology - Last 24 Hours (Table) 01/18/24 17:14 Blood Culture - Preliminary Blood Assessment and Plan (1) Fever Current Visit: Yes Status: Acute Code(s): R50.9 - FEVER, UNSPECIFIED SNOM ED Code(s): 792173703 (2) Leukocytosis Current Visit: Yes Status: Acute Code(s): D72.829 - ELEVATED WHITE BLOOD CELL COUNT, UNSPECIFIED SNOMED Code(s): 509850160 (3) Sacral decubitus ulcer Current Visit: No Status: Acute Code(s): L89.159 - PRESSURE ULCER OF SACRAL REGION, UNSPECIFIED STAGE SNOMED Code(s): 591460982 Plan: 1patient with an infected sacral pressure ulcer concerning for sacral osteomyelitis on his last visit culture positive for ESBL Klebsiella now has been brought back to the hospital concerning for weakness did have low hemoglobin patient also noticed to have a low-grade fever elevated white count with concern for possible sacral ulcer versus urinary source 2-General Surgery has been consulted and plan is for for debridement and deep culture procedure was canceled, because of bradycardia cardiology currently evaluating the patient 3-patient to continue with Invanz while waiting for the workup to be completed and monitor clinical course closely Dictation was produced using [employer] dictation software. please excuse any grammatical, word or spelling errors. Time with Patient: Less than 30
--- NOTE | 2024-01-22 15:36 | P.PN ---
Subjective Progress Note Date: 01/22/24 SURGICAL PROGRESS NOTE CHIEF COMPLAINT: Sacral decubitus ulcer HISTORY OF PRESENT ILLNESS: Patient is resting and sleeping comfortably. He did just receive his gabapentin. Ostomy is functioning. Patient's hemoglobin is down to 7 from 8.9. PHYSICAL EXAM: VITAL SIGNS: Reviewed. GENERAL: no acute distress. Pale ABDOMEN: Soft. Nondistended. Nontender. Ostomy functioning Neuro: Lethargic ASSESSMENT: 1. Sacral decubitus ulcer 2. Anemia PLAN: -Patient scheduled for debridement of sacral decubitus ulcer tomorrow with Dr. Maya -Patient will be given 1 unit of packed red blood cells for hemoglobin of 7.0. Repeat hemoglobin after blood transfusion and a CBC ordered for a.m. -Continue antibiotics -Consult placed to rn case manager hospice for information on palliative care for the family Physician Hydrochloric Area Supervisor note has been reviewed by physician. Signing provider agrees with the documented findings, assessment, and plan of care. Objective - Vital Signs Vital signs: Vital Signs Temp 98.1 F 01/22/24 10:53 Pulse 58 L 01/22/24 10:53 Resp 18 01/22/24 14:00 BP 137/85 01/22/24 10:53 Pulse Ox 91 L 01/22/24 10:53 FiO2 Intake & Output 01/21/24 01/22/24 01/22/24 18:59 06:59 18:59 Intake Total 240 Output Total 858 791 8155 Balance -260 -450 -1225 Weight 75.5 kg 76.5 kg Intake: Oral 240 Output: Urine 099 220 3581 Other: Voiding Method Indwelling Catheter Indwelling Catheter Indwelling Catheter # Bowel Movements 1 2 - Labs CBC & Chem 7: 01/22/24 12:16 01/18/24 17:14 Labs: Abnormal Lab Results - Last 24 Hours (Table) 01/21/24 01/21/24 01/22/24 Range/Units 16:36 19:53 06:04 RBC (4.30-5.90) m/uL Hgb (13.0-17.5) gm/dL Hct (39.0-53.0) % RDW (11.5-15.5) % POC Glucose (mg/dL) 166 H 193 H 147 H (70-110) mg/dL 01/22/24 01/22/24 Range/Units 11:30 12:16 RBC 2.58 L (4.30-5.90) m/uL Hgb 7.0 L D (13.0-17.5) gm/dL Hct 22.5 L (39.0-53.0) % RDW 16.8 H (11.5-15.5) % POC Glucose (mg/dL) 129 H (70-110) mg/dL Microbiology - Last 24 Hours (Table) 01/18/24 17:14 Blood Culture - Preliminary Blood Assessment and Plan Assessment: 73 yo male w/ sacral decubitus ulcer -or tomorrow Time with Patient: Less than 30
[2024-01-22 16:27] LABS: Glucose,Whole Blood 110 mg/dL (70-110)
--- NOTE | 2024-01-22 19:04 | P.PN ---
Progress Note - Text Progress Note Date: 01/22/24 Chief Complaint: Sacral decub ulcer Patient is a 73-year-old male with PMH of IDDM, hypertension, CKD stage II, chronic indwelling Davidson catheter, systolic CHF with ejection fraction of 40 to 45%, dementia, COPD , bilateral AKA was sent to the hospital for sacral decubi tus ulcers. Patient has dementia and is not able to provide any reasonable history . November 27, 2023 patient underwent loop colostomy by Dr. Maya, to prevent soiling of the decubitus ulcer. December 31, 2023-wound culture.Showing Klebsiella pneumoniae with ESBL. Discharged on IV ertapenem. And Flagyl. Patient was sent in because of some drop in hemoglobin outpatient to 7.3. P atient is wound picture was sent to infectious disease Dr. Barcenas's office. Fell there was some worsening. Patient admitted for the same. Consultation to Dr. Maya's team is done for possible debridement. According to the daughter at the bedside patient's been eating well. Colostomy bag working well. January 19: Sleepy tired. Early was supposed to go down for I&D. Heart rate did drop down to the 40s. Probably physiological. Surgery would like to have a cardiology clearance. Consulted. Blood pressures running around 100 systolic. Will DC hydralazine. Also hypoglycemic. DC Lantus. Patient is n.p.o. this morning.. Will cut back amlodipine to 5 mg in the morning and 2.5 mg at night. Because of hypoglycemia patient is also put on D5W. January 20: Blood pressure medication adjusted yesterday. Blood pressure doing much better today. Patient seen by cardiology. With clearance. Deemed high risk for perioperative care. Though this is a low risk surgery itself. Patient may occasionally answer question. Hypoglycemia improved Eating small amounts with assistance January 21: Unit of blood was ordered for hemoglobin of 7. Plan for debridement tomorrow. Does answer simple questions Active Medications Acetaminophen (Acetaminophen Tab 325 Mg Tab) 650 mg PO Q6HR PRN PRN Reason: Mild Pain or Fever > 100.5 Last Admin: 01/19/24 03:30 Dose: 650 mg Hydrocodone Bitart/Acetaminophen (Hydrocodone/Apap 5-325mg 1 Each Tab) 1 each PO Q4HR PRN PRN Reason: Moderate Pain (Scale 4 to 6) Last Admin: 01/20/24 01:29 Dose: 1 each Amlodipine Besylate (Amlodipine 5 Mg Tab) 5 mg PO DAILY [facility] Last Admin: 01/22/24 08:20 Dose: 5 mg Amlodipine Besylate (Amlodipine 2.5 Mg Tab) 2.5 mg PO HS [facility] Last Admin: 01/21/24 21:34 Dose: 2.5 mg Aspirin (Aspirin 81 Mg) 81 mg PO DAILY [facility] Last Admin: 01/22/24 08:20 Dose: 81 mg Atorvastatin Calcium (Atorvastatin 80 Mg Tab) 80 mg PO HS [facility] Last Admin: 01/21/24 21:33 Dose: 80 mg Dextrose/Water (Dextrose 50% Syringe 50 Ml) 25 ml IVP PER PROTOCOL PRN; Protocol PRN Reason: Hypoglycemia Last Admin: 01/20/24 16:44 Dose: 25 ml Dextrose/Water (Dextrose 50% Syringe 50 Ml) 50 ml IVP PER PROTOCOL PRN; Protocol PRN Reason: Hypoglycemia Last Admin: 01/20/24 11:51 Dose: 50 ml Famotidine (Famotidine 20 Mg Tab) 20 mg PO BID [facility] Last Admin: 01/22/24 08:19 Dose: 20 mg Ferrous Sulfate (Ferrous Sulfate 325 Mg Tab) 325 mg PO DAILY [facility] Last Admin: 01/22/24 08:20 Dose: 325 mg Furosemide (Furosemide 40 Mg Tab) 40 mg PO DAILY [facility] Last Admin: 01/22/24 08:20 Dose: 40 mg Gabapentin (Gabapentin 300 Mg Cap) 300 mg PO BID [facility] Last Admin: 01/22/24 08:19 Dose: 300 mg Heparin Sodium (Porcine) (Heparin Sodium,Porcine 5,000 Unit/Ml 1 Ml Vial) 5,000 unit SQ Q8HR [facility] Last Admin: 01/22/24 17:09 Dose: 5,000 unit Ertapenem 1 gm/ Sodium (Chloride) 50 mls @ 100 mls/hr IVPB Q24H [facility]; Protocol Last Admin: 01/22/24 14:51 Dose: 100 mls/hr Dextrose/Water (Dextrose 5%-Water Iv Soln) 1,000 mls @ 100 mls/hr IV .Q10H [facility] Last Admin: 01/22/24 14:31 Dose: 100 mls/hr Insulin Aspart (Insulin Aspart (Novolog) 100 Unit/Ml Vial) 0 unit SQ AC-TID [facility]; Protocol Last Admin: 01/22/24 16:38 Dose: Not Given Lorazepam (Lorazepam 0.5 Mg Tab) 0.5 mg PO TID PRN PRN Reason: Anxiety Magnesium Citrate (Magnesium Citrate 296 Ml Bottle) 296 ml PO Douglas@0900 [facility] Naloxone HCl (Naloxone 0.4 Mg/Ml 1 Ml Vial) 0.2 mg IV Q2M PRN PRN Reason: Opioid Reversal Collagenase 250 Unit /Gm Ointment 30 Gm Tube 1 each TOPICAL DAILY [facility]; Protocol Last Admin: 01/22/24 08:32 Dose: Not Given Nystatin (Nystatin 100,000 Unit/Gm Powd 15 Gm) 1 applic TOPICAL BID [facility]; Protocol Last Admin: 01/22/24 08:33 Dose: 1 applic Ondansetron HCl (Ondansetron 4 Mg/2 Ml Vial) 4 mg IVP Q8HR PRN PRN Reason: Nausea And Vomiting Senna (Sennosides 8.6 Mg Tab) 8.6 mg PO DAILY [facility] Last Admin: 01/22/24 08:20 Dose: 8.6 mg Sodium Bicarbonate (Sodium Bicarbonate Tab 650 Mg Tab) 650 mg PO BID [facility] Last Admin: 01/22/24 08:19 Dose: 650 mg Spironolactone (Spironolactone 25 Mg Tab) 25 mg PO DAILY [facility] Last Admin: 01/22/24 08:20 Dose: 25 mg Tamsulosin HCl (Tamsulosin 0.4 Mg Cap.Er.24h) 0.4 mg PO DAILY [facility] Last Admin: 01/22/24 08:19 Dose: 0.4 mg Trazodone HCl (Trazodone Hcl 50 Mg Tab) 50 mg PO HS [facility] Last Admin: 01/21/24 21:33 Dose: 50 mg Valsartan (Valsartan 160 Mg Tab) 320 mg PO DAILY [facility] Last Admin: 01/22/24 08:19 Dose: 320 mg Social history: Former smoker. At home. Cared for by his daughter. Physical examination: VITAL SIGNS: 98.4, 57, 18, 142 x 65, 98% room air GENERAL: Laying in bed. lethargic but arousable EYES: [Pupils equal. Conjunctiva pale HEENT: External appearance of nose and ears normal, oral cavity less dry mucous membrane. NECK: JVD not raised; masses not palpable. HEART: First and second heart sounds are normal; no edema. LUNGS: Respiratory rate increased; decreased breath sounds. ABDOMEN: Soft, nontender, liver spleen not palpable, no masses palpable. Davidson catheter. Loop colostomy.-Stool present PSYCH: Sleepy but arousable MUSCULOSKELETAL:No Clubbing/cyanosis;muscles-grossly intact. Sacral decubitus wound-pictures in the chart NEUROLOGICAL: [Cranial nerves grossly intact; no facial asymmetry, bilateral above-knee amputation INVESTIGATIONS, reviewed in the clinical context: January 21: Hemoglobin 7 January 17: White count 13.5 hemoglobin 8.9 platelets 499 sodium 147 potassium 3.8 creatinine 0.92 lactic acid 2.6 repeat 1.4 Troponin I 0.035 EKG tracing personally reviewed by me-poor baseline. Intraventricular block. ST-T wave changes. Chest x-ray film personally reviewed by [id number] effusion Previous studies Wound culture [December 30]: Bacteroids, acalculous species, Klebsiella pneumo niae CT abdomen pelvis: Gallstones. Moderate right hydropneumothorax with surrounding consolidation atelectasis. Assessment plan: # Acute on chronic infected sacral decubitus ulcer, unstageable, present thing we are increasing drainage. Prior debridements diverting loop colostomy-November 27, [address] Sachin Chandler IN r debridement--December [address] Alves January 04: IV Invanz 1 g every 24 hours, Flagyl 500 mg 3 times daily-per ID For debridement tomorrow -Chronic right-sided hydropneumothorax. 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 Uncontrolled with hypoglycemia Levemir-hold - follow Accu-Cheks D5W IV fluids -Chronic left kidney atrophy -Chronic bilateral above-knee amputation -Decrease in sodium. Metabolic encephalopathy multifactorial. Including hypoglycemia. -Bradycardia. Cardiology consulted -Primary osteoarthritis [place] as needed -Essential hypertension,, blood pressure running low Amlodipine, cut back to 5 mg in the morning and 2.5 mg at night. Hydralazine discontinued Diovan 320 mg daily -Severe cognitive impairment -Chronic bladder outflow obstruction BPH, with chronic Davidson catheter Flomax -Chronic congestive heart failure from systolic dysfunction EF 40 to 45% Aldactone -Peripheral neuropathy -Moderate protein calorie malnutrition decreased oral intake Ensure -DNR, per daughter Transfuse 1 unit of blood. Plan for debridement tomorrow. Discussed with ID. Same antibiotics to continue. 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 Date of last positivie culture/infection: 12/31/23 - ESBL; 12/29/23 - CRE, MDRO; 10/28/22 - MRSA MDRO Source:: ESBL-TISSUE; CRE/MDRO-back, urine ;MRSA-Blood Past Surgical History: Heart Catheterization Additional Past Surgical History / Comment(s): bilateral great toes amputated, 2nd toe lt foot partial amputation, multiple debridements of venous ulcers, col onoscopy, surgery as a child for undescended testicle., ABOVE THE KNEE AMPUTATION RIGHT LEG (JUNE 2017-[facility]) Past Anesthesia/Blood Transfusion Reactions: No Reported Reaction Date of Last Stent Placement:: 10/17/2022 Past Psychological History: Anxiety, Depression Smoking Status: Former smoker Past Alcohol Use History: Unable to Obtain Past Drug Use History: Unable to Obtain
[2024-01-22 20:34] LABS: Glucose,Whole Blood 112 mg/dL (70-110)
[2024-01-22 23:49] LABS: Anisocytosis Slight; Basophils % (A) 0 %; Eosinophils # (A) 0.1 k/uL (0-0.7); Eosinophils % (A) 1 %; HCT 26.8 % (39.0-53.0); Hypochromasia Moderate; Lymphocytes # (A) 0.9 k/uL (1.0-4.8); Lymphocytes % (A) 12 %; MCH 28.3 pg (25.0-35.0); MCHC 31.8 g/dL (31.0-37.0); MCV 88.9 fL (80.0-100.0); Mean Platelet Volume 8.6; Monocytes # (A) 0.4 k/uL (0-1.0); Monocytes % (A) 5 %; Neutrophils % (A) 81 %; Platelet Count 290 k/uL (150-450); RBC 3.02 m/uL (4.30-5.90); RDW 16.4 % (11.5-15.5); WBC 7.4 k/uL (3.8-10.6)
[2024-01-23] LABS: HGB 8.5 gm/dL (13.0-17.5)
[2024-01-23 03:16] LABS: Glucose,Whole Blood 136 mg/dL (70-110)
[2024-01-23 06:14] LABS: Glucose,Whole Blood 129 mg/dL (70-110)
[2024-01-23 09:29] LABS: Anisocytosis Slight; HCT 26.4 % (39.0-53.0); HGB 8.3 gm/dL (13.0-17.5); Hypochromasia Moderate; MCH 28.4 pg (25.0-35.0); MCHC 31.4 g/dL (31.0-37.0); MCV 90.3 fL (80.0-100.0); Mean Platelet Volume 9.1; Platelet Count 294 k/uL (150-450); Poikilocytosis Slight; RBC 2.93 m/uL (4.30-5.90); RDW 16.4 % (11.5-15.5); WBC 6.9 k/uL (3.8-10.6)
[2024-01-23 10:10] LABS: INR 1.2 (<1.2); Prothrombin Time 12.3 sec (10.0-12.5)
--- NOTE | 2024-01-23 11:47 | P.PN ---
Progress Note - Text Progress Note Date: 01/23/24 Chief Complaint: Sacral decub ulcer Patient is a 73-year-old male with PMH of IDDM, hypertension, CKD stage II, chronic indwelling Davidson catheter, systolic CHF with ejection fraction of 40 to 45%, dementia, COPD , bilateral AKA was sent to the hospital for sacral decubi tus ulcers. Patient has dementia and is not able to provide any reasonable history . November 27, 2023 patient underwent loop colostomy by Dr. Maya, to prevent soiling of the decubitus ulcer. December 31, 2023-wound culture.Showing Klebsiella pneumoniae with ESBL. Discharged on IV ertapenem. And Flagyl. Patient was sent in because of some drop in hemoglobin outpatient to 7.3. P atient is wound picture was sent to infectious disease Dr. Barcenas's office. Fell there was some worsening. Patient admitted for the same. Consultation to Dr. Maya's team is done for possible debridement. According to the daughter at the bedside patient's been eating well. Colostomy bag working well. January 19: Sleepy tired. Early was supposed to go down for I&D. Heart rate did drop down to the 40s. Probably physiological. Surgery would like to have a cardiology clearance. Consulted. Blood pressures running around 100 systolic. Will DC hydralazine. Also hypoglycemic. DC Lantus. Patient is n.p.o. this morning.. Will cut back amlodipine to 5 mg in the morning and 2.5 mg at night. Because of hypoglycemia patient is also put on D5W. January 20: Blood pressure medication adjusted yesterday. Blood pressure doing much better today. Patient seen by cardiology. With clearance. Deemed high risk for perioperative care. Though this is a low risk surgery itself. Patient may occasionally answer question. Hypoglycemia improved Eating small amounts with assistance January 21: Unit of blood was ordered for hemoglobin of 7. Plan for debridement tomorrow. Does answer simple questions January 22: Patient pending debridement today. Getting antibiotics. Will answer occasional questions Active Medications Acetaminophen (Acetaminophen Tab 325 Mg Tab) 650 mg PO Q6HR PRN PRN Reason: Mild Pain or Fever > 100.5 Last Admin: 01/19/24 03:30 Dose: 650 mg Hydrocodone Bitart/Acetaminophen (Hydrocodone/Apap 5-325mg 1 Each Tab) 1 each PO Q4HR PRN PRN Reason: Moderate Pain (Scale 4 to 6) Last Admin: 01/20/24 01:29 Dose: 1 each Amlodipine Besylate (Amlodipine 5 Mg Tab) 5 mg PO DAILY [facility] Last Admin: 01/22/24 08:20 Dose: 5 mg Amlodipine Besylate (Amlodipine 2.5 Mg Tab) 2.5 mg PO HS [facility] Last Admin: 01/22/24 20:08 Dose: 2.5 mg Aspirin (Aspirin 81 Mg) 81 mg PO DAILY [facility] Last Admin: 01/23/24 11:20 Dose: Not Given Atorvastatin Calcium (Atorvastatin 80 Mg Tab) 80 mg PO HS [facility] Last Admin: 01/22/24 20:08 Dose: 80 mg Dextrose/Water (Dextrose 50% Syringe 50 Ml) 25 ml IVP PER PROTOCOL PRN; Protocol PRN Reason: Hypoglycemia Last Admin: 01/20/24 16:44 Dose: 25 ml Dextrose/Water (Dextrose 50% Syringe 50 Ml) 50 ml IVP PER PROTOCOL PRN; Protocol PRN Reason: Hypoglycemia Last Admin: 01/20/24 11:51 Dose: 50 ml Famotidine (Famotidine 20 Mg Tab) 20 mg PO BID [facility] Last Admin: 01/23/24 11:20 Dose: Not Given Ferrous Sulfate (Ferrous Sulfate 325 Mg Tab) 325 mg PO DAILY [facility] Last Admin: 01/23/24 11:20 Dose: Not Given Furosemide (Furosemide 40 Mg Tab) 40 mg PO DAILY [facility] Last Admin: 01/23/24 11:20 Dose: Not Given Gabapentin (Gabapentin 300 Mg Cap) 300 mg PO BID [facility] Last Admin: 01/23/24 11:20 Dose: Not Given Heparin Sodium (Porcine) (Heparin Sodium,Porcine 5,000 Unit/Ml 1 Ml Vial) 5,000 unit SQ Q8HR [facility] Last Admin: 01/23/24 09:12 Dose: Not Given Ertapenem 1 gm/ Sodium (Chloride) 50 mls @ 100 mls/hr IVPB Q24H [facility]; Protocol Last Admin: 01/22/24 14:51 Dose: 100 mls/hr Dextrose/Water (Dextrose 5%-Water Iv Soln) 1,000 mls @ 100 mls/hr IV .Q10H [facility] Last Admin: 01/23/24 04:47 Dose: Not Given Insulin Aspart (Insulin Aspart (Novolog) 100 Unit/Ml Vial) 0 unit SQ AC-TID [facility]; Protocol Last Admin: 01/23/24 06:29 Dose: Not Given Lorazepam (Lorazepam 0.5 Mg Tab) 0.5 mg PO TID PRN PRN Reason: Anxiety Magnesium Citrate (Magnesium Citrate 296 Ml Bottle) 296 ml PO Douglas@0900 [facility] Naloxone HCl (Naloxone 0.4 Mg/Ml 1 Ml Vial) 0.2 mg IV Q2M PRN PRN Reason: Opioid Reversal Collagenase 250 Unit /Gm Ointment 30 Gm Tube 1 each TOPICAL DAILY [facility]; Protocol Last Admin: 01/23/24 09:11 Dose: Not Given Nystatin (Nystatin 100,000 Unit/Gm Powd 15 Gm) 1 applic TOPICAL BID [facility]; Protocol Last Admin: 01/23/24 11:21 Dose: Not Given Ondansetron HCl (Ondansetron 4 Mg/2 Ml Vial) 4 mg IVP Q8HR PRN PRN Reason: Nausea And Vomiting Senna (Sennosides 8.6 Mg Tab) 8.6 mg PO DAILY [facility] Last Admin: 01/23/24 11:21 Dose: Not Given Sodium Bicarbonate (Sodium Bicarbonate Tab 650 Mg Tab) 650 mg PO BID [facility] Last Admin: 01/22/24 20:08 Dose: 650 mg Spironolactone (Spironolactone 25 Mg Tab) 25 mg PO DAILY [facility] Last Admin: 01/22/24 08:20 Dose: 25 mg Tamsulosin HCl (Tamsulosin 0.4 Mg Cap.Er.24h) 0.4 mg PO DAILY [facility] Last Admin: 01/22/24 08:19 Dose: 0.4 mg Trazodone HCl (Trazodone Hcl 50 Mg Tab) 50 mg PO HS [facility] Last Admin: 01/22/24 20:08 Dose: 50 mg Valsartan (Valsartan 160 Mg Tab) 320 mg PO DAILY [facility] Last Admin: 01/22/24 08:19 Dose: 320 mg Social history: Former smoker. At home. Cared for by his daughter. Physical examination: VITAL SIGNS: 97.1, 45, 16, 147 x 56, the right percent room air GENERAL: Laying in bed. lethargic but arousable EYES: [Pupils equal. Conjunctiva pale HEENT: External appearance of nose and ears normal, oral cavity less dry mucous membrane. NECK: JVD not raised; masses not palpable. HEART: First and second heart sounds are normal; no edema. LUNGS: Respiratory rate increased; decreased breath sounds. ABDOMEN: Soft, nontender, liver spleen not palpable, no masses palpable. Davidson catheter. Loop colostomy.-Stool present PSYCH: Sleepy but arousable MUSCULOSKELETAL:No Clubbing/cyanosis;muscles-grossly intact. Sacral decubitus wound-pictures in the chart NEUROLOGICAL: [Cranial nerves grossly intact; no facial asymmetry, bilateral above-knee amputation INVESTIGATIONS, reviewed in the clinical context: January 22: White count 6.9 hemoglobin 8.3 January 21: Hemoglobin 7 January 17: White count 13.5 hemoglobin 8.9 platelets 499 sodium 147 potassium 3.8 creatinine 0.92 lactic acid 2.6 repeat 1.4 Troponin I 0.035 EKG tracing personally reviewed by me-poor baseline. Intraventricular block. ST-T wave changes. Chest x-ray film personally reviewed by [id number] effusion Previous studies Wound culture [December 30]: Bacteroids, acalculous species, Klebsiella pneumoniae CT abdomen pelvis: Gallstones. Moderate right hydropneumothorax with surrounding consolidation atelectasis. Assessment plan: # Acute on chronic infected sacral decubitus ulcer, unstageable, present thing we are increasing drainage. Prior debridements diverting loop colostomy-November 27, [address] Sachin Chandler IN r debridement--December [address] Alves January 04: IV Invanz 1 g every 24 hours, Flagyl 500 mg 3 times daily-per ID For debridement today -Chronic right-sided hydropneumothorax. 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 Uncontrolled with hypoglycemia Levemir-hold - follow Accu-Cheks D5W IV fluids -Chronic left kidney atrophy -Chronic bilateral above-knee amputation -Decrease in sodium. Metabolic encephalopathy multifactorial. Including hypoglycemia. -Bradycardia. Cardiology consulted -Primary osteoarthritis [place] as needed -Essential hypertension,, blood pressure running low Amlodipine, cut back to 5 mg in the morning and 2.5 mg at night. Hydralazine discontinued Diovan 320 mg daily -Severe cognitive impairment -Chronic bladder outflow obstruction BPH, with chronic Davidson catheter Flomax -Chronic congestive heart failure from systolic dysfunction EF 40 to 45% Aldactone -Peripheral neuropathy -Moderate protein calorie malnutrition decreased oral intake Ensure -DNR, per daughter Pending debridement today. Other medication treatment to continue. 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 Date of last positivie culture/infection: 12/31/23 - ESBL; 12/29/23 - CRE, MDRO; 10/28/22 - MRSA MDRO Source:: ESBL-TISSUE; CRE/MDRO-back, urine ;MRSA-Blood Past Surgical History: Heart Catheterization Additional Past Surgical History / Comment(s): bilateral great toes amputated, 2nd toe lt foot partial amputation, multiple debridements of venous ulcers, colonoscopy, surgery as a child for undescended testicle., ABOVE THE KNEE AMPUTATION RIGHT LEG (JUNE 2017-[facility]) Past Anesthesia/Blood Transfusion Reactions: No Reported Reaction Date of Last Stent Placement:: 10/17/2022 Past Psychological History: Anxiety, Depression Smoking Status: Former smoker Past Alcohol Use History: Unable to Obtain Past Drug Use History: Unable to Obtain
[2024-01-23 12:27] LABS: Glucose,Whole Blood 120 mg/dL (70-110)
--- NOTE | 2024-01-23 13:31 | P.PN ---
Subjective patient seen and evaluated at bedside. No new complaints. No overnight events. Objective - Vital Signs Vital signs: Vital Signs Temp 97.1 F L 01/23/24 08:10 Pulse 39 L 01/23/24 13:24 Resp 18 01/23/24 13:24 BP 163/73 01/23/24 13:24 Pulse Ox 98 01/23/24 13:24 FiO2 Intake & Output 01/22/24 01/23/24 01/23/24 18:59 06:59 18:59 Intake Total 0 300 Output Total 2225 1750 800 Balance -2225 -1450 -800 Weight 70 kg Intake: Blood Product 0 300 Rc As-1 Unit 0 300 [id number] Output: Urine 2225 1600 500 Stool 150 300 Other: Voiding Method Indwelling Catheter Indwelling Catheter Indwelling Catheter - Exam Physical exam: HEENT: Normocephalic, sclerae nonicteric Chest: nonlabored breathing Heart: Regular rate and rhythm Abdomen: [Nontender, nondistended, ostomy patent producing] - Labs CBC & Chem 7: 01/23/24 08:24 01/18/24 17:14 Labs: Abnormal Lab Results - Last 24 Hours (Table) 01/22/24 01/22/24 01/22/24 Range/Units 15:16 20:30 23:38 RBC 3.02 L (4.30-5.90) m/uL Hgb 8.5 L D (13.0-17.5) gm/dL Hct 26.8 L (39.0-53.0) % RDW 16.4 H (11.5-15.5) % Lymphocytes # 0.9 L (1.0-4.8) k/uL INR (<1.2) POC Glucose (mg/dL) 112 H (70-110) mg/dL Crossmatch See Detail 01/23/24 01/23/24 01/23/24 Range/Units 03:14 06:12 08:24 RBC 2.93 L (4.30-5.90) m/uL Hgb 8.3 L (13.0-17.5) gm/dL Hct 26.4 L (39.0-53.0) % RDW 16.4 H (11.5-15.5) % Lymphocytes # (1.0-4.8) k/uL INR (<1.2) POC Glucose (mg/dL) 136 H 129 H (70-110) mg/dL Crossmatch 01/23/24 01/23/24 Range/Units 09:25 12:27 RBC (4.30-5.90) m/uL Hgb (13.0-17.5) gm/dL Hct (39.0-53.0) % RDW (11.5-15.5) % Lymphocytes # (1.0-4.8) k/uL INR 1.2 H (<1.2) POC Glucose (mg/dL) 120 H (70-110) mg/dL Crossmatch Assessment and Plan Assessment: 73-year-old male with decubitus ulcer [place] today Time with Patient: Less than 30
--- NOTE | 2024-01-23 13:51 | P.PN ---
Subjective Progress Note Date: 01/23/24 Principal diagnosis: Reason for follow-up is infected sacral pressure ulcer Patient is a 73-year-old male with a past medical history significant for diabetes mellitus hypertension hyperlipidemia osteoarthritis recently admitted to the hospital status post debridement of his sacral wound there was concern for sacral osteomyelitis with the OR culture positive for ESBL Klebsiella patient did get a PICC line and was advised a 6-week course of IV Invanz patient has not been brought back to the hospital concerning for lethargy and apparently did have low hemoglobin outpatient setting noticed to have slight worsening of his sacral wound prompting this consultation. On today's evaluation that is 01/23/2024, patient has been afebrile, patient is breathing comfortably and is currently on room air, patient denies having any significant cough no chest pain, patient denies nausea vomiting or diarrhea and no abdominal pain seems to be more awake alert today. Patient white count is 6.9 blood culture has been negative so far Objective - Vital Signs Vital signs: Vital Signs Temp 97.1 F L 01/23/24 08:10 Pulse 39 L 01/23/24 13:24 Resp 18 01/23/24 13:24 BP 163/73 01/23/24 13:24 Pulse Ox 98 01/23/24 13:24 FiO2 Intake & Output 01/22/24 01/23/24 01/23/24 18:59 06:59 18:59 Intake Total 0 300 Output Total 2225 1750 800 Balance -2225 -1450 -800 Weight 70 kg Intake: Blood Product 0 300 Rc As-1 Unit 0 300 [id number] Output: Urine 2225 1600 500 Stool 150 300 Other: Voiding Method Indwelling Catheter Indwelling Catheter Indwelling Catheter - Exam GENERAL DESCRIPTION: An elderly male lying in bed in no distress RESPIRATORY SYSTEM: Unlabored breathing , decreased breath sounds at bases HEART: S1 S2 regular rate and rhythm , ABDOMEN: Soft , no tenderness EXTREMITIES: Bilateral AKA stumps are currently healed - Labs CBC & Chem 7: 01/23/24 08:24 01/18/24 17:14 Labs: Abnormal Lab Results - Last 24 Hours (Table) 01/22/24 01/22/24 01/22/24 Range/Units 15:16 20:30 23:38 RBC 3.02 L (4.30-5.90) m/uL Hgb 8.5 L D (13.0-17.5) gm/dL Hct 26.8 L (39.0-53.0) % RDW 16.4 H (11.5-15.5) % Lymphocytes # 0.9 L (1.0-4.8) k/uL INR (<1.2) POC Glucose (mg/dL) 112 H (70-110) mg/dL Crossmatch See Detail 01/23/24 01/23/24 01/23/24 Range/Units 03:14 06:12 08:24 RBC 2.93 L (4.30-5.90) m/uL Hgb 8.3 L (13.0-17.5) gm/dL Hct 26.4 L (39.0-53.0) % RDW 16.4 H (11.5-15.5) % Lymphocytes # (1.0-4.8) k/uL INR (<1.2) POC Glucose (mg/dL) 136 H 129 H (70-110) mg/dL Crossmatch 01/23/24 01/23/24 Range/Units 09:25 12:27 RBC (4.30-5.90) m/uL Hgb (13.0-17.5) gm/dL Hct (39.0-53.0) % RDW (11.5-15.5) % Lymphocytes # (1.0-4.8) k/uL INR 1.2 H (<1.2) POC Glucose (mg/dL) 120 H (70-110) mg/dL Crossmatch Assessment and Plan (1) Fever Current Visit: Yes Status: Acute Code(s): R50.9 - FEVER, UNSPECIFIED SNOMED Code(s): 611775305 (2) Leukocytosis Current Visit: Yes Status: Acute Code(s): D72.829 - ELEVATED WHITE BLOOD CELL COUNT, UNSPECIFIED SNOMED Code(s): 022708783 (3) Sacral decubitus ulcer Current Visit: No Status: Acute Code(s): L89.159 - PRESSURE ULCER OF SACRAL REGION, UNSPECIFIED STAGE SNOMED Code(s): 443972659 Plan: 1patient with an infected sacral pressure ulcer concerning for sacral osteomyelitis on his last visit culture positive for ESBL Klebsiella now has been brought back to the hospital concerning for weakness did have low hemoglobin patient also noticed to have a low-grade fever elevated white count with concern for possible sacral ulcer versus urinary source 2-General Surgery has been consulted and plan is for for debridement and deep culture procedure was canceled, because of bradycardia cardiology currently evaluating the patient 3-patient is scheduled for surgical debridement this afternoon continue with Invanz Dictation was produced using [employer] dictation software. please excuse any g rammatical, word or spelling errors. Time with Patient: Less than 30
[2024-01-23] MEDS: IV FLUID CONTINUATION 1,000 ML IV ONE ×2 (13:53→15:26)
[2024-01-23] MEDS ORDERED: MIDAZOLAM 2 MG/2 ML VIAL ONE (14:43)
[2024-01-23] MEDS ORDERED: PROPOFOL 10 MG/ML 20 ML VIAL IV ONE (14:43)
[2024-01-23] MEDS ORDERED: fentaNYL (PF) 50 MCG/ML 2 ML AMP ONE (14:43)
[2024-01-23] MEDS ORDERED: KETAMINE HCL IN 0.9 % NACL 50 MG/5 ML SYRINGE ONE (14:43)
--- NOTE | 2024-01-23 15:47 | P.OP ---
Date of Procedure: 01/23/24 Preoperative Diagnosis: sacral decubitus ulcer Postoperative Diagnosis: unstageable decubitus ulcer Procedure(s) Performed: sharp excisional debridement Anesthesia: local Surgeon: Sachin Maya Estimated Blood Loss (ml): 5 Pathology: other (sacral decubitus ulcer) Condition: stable Disposition: floor Indications for Procedure: sacral decubitus ulcer Operative Findings: removed eschar, ulcer extends to sacrum Description of Procedure: Patient was brought to the operative suite where he was cleaned and draped and sterile fashion. A timeout was performed and everyone agreed with the information recited. Next a 15 blade scalpel was used to dissect down to the sacrum in a circumferential fashion. There was no pus or drainage. There was some bleeding around the healthy tissues which was controlled with bovie cautery. The area debrided was 5 x 7 x 1 cm down to sacrum. The patient tolerated the procedure well. Daykins soaked kerlex was placed on the wound. The patient was taken to pacu in stable condition.
[2024-01-23 16:37] LABS: Glucose,Whole Blood 117 mg/dL (70-110)
[2024-01-23] MEDS: ONDANSETRON 4 MG/2 ML VIAL IVP ONE (16:50)
[2024-01-23] MEDS: LACTATED RINGERS 1,000 ML IV SCH (16:50)
[2024-01-23] MEDS: DEXAMETHASONE SOD PHOSPHATE 4 MG/ML 1 ML VIAL IV ONE (16:50)
[2024-01-23 20:23] LABS: Glucose,Whole Blood 141 mg/dL (70-110)
[2024-01-24 06:09] LABS: Glucose,Whole Blood 107 mg/dL (70-110)
[2024-01-24] MEDS ORDERED: HYDROmorphone 0.5 MG/0.5 ML SYRINGE IVP PRN (07:00)
[2024-01-24 10:06] LABS: Anisocytosis Slight; Basophils % (A) 0 %; Eosinophils # (A) 0.2 k/uL (0-0.7); Eosinophils % (A) 3 %; HCT 27.1 % (39.0-53.0); HGB 8.8 gm/dL (13.0-17.5); Hypochromasia Slight; Lymphocytes % (A) 20 %; MCH 28.5 pg (25.0-35.0); MCHC 32.6 g/dL (31.0-37.0); MCV 87.6 fL (80.0-100.0); Mean Platelet Volume 8.4; Monocytes # (A) 0.4 k/uL (0-1.0); Monocytes % (A) 7 %; Neutrophils # (A) 3.5 k/uL (1.3-7.7); Neutrophils % (A) 68 %; Platelet Count 319 k/uL (150-450); RDW 16.6 % (11.5-15.5); WBC 5.1 k/uL (3.8-10.6)
[2024-01-24 12:08] LABS: Glucose,Whole Blood 107 mg/dL (70-110)
[2024-01-24] MEDS: MAGNESIUM CITRATE 296 ML BOTTLE PO SCH (14:13)
--- NOTE | 2024-01-24 15:16 | P.PN ---
Subjective Progress Note Date: 01/24/24 Principal diagnosis: Reason for follow-up is infected sacral pressure ulcer Patient is a 73-year-old male with a past medical history significant for diabetes mellitus hypertension hyperlipidemia osteoarthritis recently admitted to the hospital status post debridement of his sacral wound there was concern for sacral osteomyelitis with the OR culture positive for ESBL Klebsiella patient did get a PICC line and was advised a 6-week course of IV Invanz patient has not been brought back to the hospital concerning for lethargy and apparently did have low hemoglobin outpatient setting noticed to have slight worsening of his sacral wound prompting this consultation. Patient is status post sharp excisional debridement of his sacral wound done on 01/23/2024, operative report did not mention purulent drainage. On today's evaluation that is 01/24/2024, Patient is afebrile this morning patient denies having any chest pain shortness of breath or cough, the patient is currently on room air, patient denies any abdominal pain no diarrhea no nausea no vomiting patient white count is 5.1 Objective - Vital Signs Vital signs: Vital Signs Temp 97.9 F 01/24/24 08:00 Pulse 58 L 01/24/24 12:00 Resp 16 01/24/24 12:00 BP 133/63 01/24/24 12:00 Pulse Ox 93 L 01/24/24 12:00 FiO2 Intake & Output 01/23/24 01/24/24 01/24/24 18:59 06:59 18:59 Intake Total 200 Output Total 7382 792 9785 Balance -1430 -550 -3350 Weight 73.5 kg Intake: IV 200 Output: Urine 1175 3350 Stool 450 550 Estimated Blood Loss 5 Other: Voiding Method Indwelling Catheter Indwelling Catheter Indwelling Catheter - Exam GENERAL DESCRIPTION: An elderly male lying in bed in no distress RESPIRATORY SYSTEM: Unlabored breathing , decreased breath sounds at bases HEART: S1 S2 regular rate and rhythm , ABDOMEN: Soft , no tenderness EXTREMITIES: Bilateral AKA stumps are currently healed - Labs CBC & Chem 7: 01/24/24 09:02 01/18/24 17:14 Labs: Abnormal Lab Results - Last 24 Hours (Table) 01/23/24 01/23/24 01/24/24 Range/Units 16:36 20:21 09:02 RBC 3.10 L (4.30-5.90) m/uL Hgb 8.8 L (13.0-17.5) gm/dL Hct 27.1 L (39.0-53.0) % RDW 16.6 H (11.5-15.5) % POC Glucose (mg/dL) 117 H 141 H (70-110) mg/dL Microbiology - Last 24 Hours (Table) 01/23/24 15:23 Gram Stain - Preliminary Other - Other 01/18/24 17:14 Blood Culture - Final Blood Assessment and Plan (1) Fever Current Visit: Yes Status: Acute Code(s): R50.9 - FEVER, UNSPECIFIED SNO MED Code(s): 523591535 (2) Leukocytosis Current Visit: Yes Status: Acute Code(s): D72.829 - ELEVATED WHITE BLOOD CELL COUNT, UNSPECIFIED SNOMED Code(s): 451472226 (3) Sacral decubitus ulcer Current Visit: No Status: Acute Code(s): L89.159 - PRESSURE ULCER OF SACRAL REGION, UNSPECIFIED STAGE SNOMED Code(s): 633624147 Plan: 1patient with an infected sacral pressure ulcer concerning for sacral osteomyelitis on his last visit culture positive for ESBL Klebsiella now has been brought back to the hospital concerning for weakness did have low hemoglobin patient also noticed to have a low-grade fever elevated white count with concern for possible sacral ulcer versus urinary source 2-patient is status post surgical debridement of his sacral wound on 01/23/2024 operative report did not mention any purulent drainage 3-patient will continue with Invanz on discharge to finish 6-week course of therapy Dictation was produced using [employer] dictation software. please excuse any grammatical, word or spelling errors. Time with Patient: Less than 30
[2024-01-24 16:21] LABS: Glucose,Whole Blood 147 mg/dL (70-110)
--- NOTE | 2024-01-24 17:46 | P.PN ---
Progress Note - Text Progress Note Date: 01/24/24 Chief Complaint: Sacral decub ulcer Patient is a 73-year-old male with PMH of IDDM, hypertension, CKD stage II, chronic indwelling Davidson catheter, systolic CHF with ejection fraction of 40 to 45%, dementia, COPD , bilateral AKA was sent to the hospital for sacral decubi tus ulcers. Patient has dementia and is not able to provide any reasonable history . November 27, 2023 patient underwent loop colostomy by Dr. Maya, to prevent soiling of the decubitus ulcer. December 31, 2023-wound culture.Showing Klebsiella pneumoniae with ESBL. Discharged on IV ertapenem. And Flagyl. Patient was sent in because of some drop in hemoglobin outpatient to 7.3. P atient is wound picture was sent to infectious disease Dr. Barcenas's office. Fell there was some worsening. Patient admitted for the same. Consultation to Dr. Maya's team is done for possible debridement. According to the daughter at the bedside patient's been eating well. Colostomy bag working well. January 19: Sleepy tired. Early was supposed to go down for I&D. Heart rate did drop down to the 40s. Probably physiological. Surgery would like to have a cardiology clearance. Consulted. Blood pressures running around 100 systolic. Will DC hydralazine. Also hypoglycemic. DC Lantus. Patient is n.p.o. this morning.. Will cut back amlodipine to 5 mg in the morning and 2.5 mg at night. Because of hypoglycemia patient is also put on D5W. January 20: Blood pressure medication adjusted yesterday. Blood pressure doing much better today. Patient seen by cardiology. With clearance. Deemed high risk for perioperative care. Though this is a low risk surgery itself. Patient may occasionally answer question. Hypoglycemia improved Eating small amounts with assistance January 21: Unit of blood was ordered for hemoglobin of 7. Plan for debridement tomorrow. Does answer simple questions January 22: Patient pending debridement today. Getting antibiotics. Will answer occasional questions January 23: Patient underwent deep debridement with Dr. Maya yesterday. Down to the bone. Discussed with him. For Dakin's solution dressing changes. Antibiotics per ID to continue. Plan for discharge with social work being back tomorrow. Active Medications Acetaminophen (Acetaminophen Tab 325 Mg Tab) 650 mg PO Q6HR PRN PRN Reason: Mild Pain or Fever > 100.5 Last Admin: 01/19/24 03:30 Dose: 650 mg Hydrocodone Bitart/Acetaminophen (Hydrocodone/Apap 5-325mg 1 Each Tab) 1 each PO Q4HR PRN PRN Reason: Moderate Pain (Scale 4 to 6) Last Admin: 01/24/24 12:45 Dose: 1 each Amlodipine Besylate (Amlodipine 5 Mg Tab) 5 mg PO DAILY [facility] Last Admin: 01/24/24 09:28 Dose: 5 mg Amlodipine Besylate (Amlodipine 2.5 Mg Tab) 2.5 mg PO HS [facility] Last Admin: 01/23/24 20:52 Dose: 2.5 mg Aspirin (Aspirin 81 Mg) 81 mg PO DAILY [facility] Last Admin: 01/24/24 09:27 Dose: 81 mg Atorvastatin Calcium (Atorvastatin 80 Mg Tab) 80 mg PO HS [facility] Last Admin: 01/23/24 20:52 Dose: 80 mg Dextrose/Water (Dextrose 50% Syringe 50 Ml) 25 ml IVP PER PROTOCOL PRN; Protocol PRN Reason: Hypoglycemia Last Admin: 01/20/24 16:44 Dose: 25 ml Dextrose/Water (Dextrose 50% Syringe 50 Ml) 50 ml IVP PER PROTOCOL PRN; Protocol PRN Reason: Hypoglycemia Last Admin: 01/20/24 11:51 Dose: 50 ml Famotidine (Famotidine 20 Mg Tab) 20 mg PO BID [facility] Last Admin: 01/24/24 09:27 Dose: 20 mg Ferrous Sulfate (Ferrous Sulfate 325 Mg Tab) 325 mg PO DAILY [facility] Last Admin: 01/24/24 09:27 Dose: 325 mg Furosemide (Furosemide 40 Mg Tab) 40 mg PO DAILY [facility] Last Admin: 01/24/24 09:27 Dose: 40 mg Gabapentin (Gabapentin 300 Mg Cap) 300 mg PO BID [facility] Last Admin: 01/24/24 09:27 Dose: 300 mg Heparin Sodium (Porcine) (Heparin Sodium,Porcine 5,000 Unit/Ml 1 Ml Vial) 5,000 unit SQ Q8HR [facility] Last Admin: 01/24/24 16:25 Dose: 5,000 unit Hydromorphone HCl (Hydromorphone 0.5 Mg/0.5 Ml Syringe) 0.5 mg IVP Q5M PRN PRN Reason: Phase 1 or 2 - Pain Control Stop: 01/24/24 23:00 Ertapenem 1 gm/ Sodium (Chloride) 50 mls @ 100 mls/hr IVPB Q24H [facility]; Protocol Last Admin: 01/24/24 12:44 Dose: 100 mls/hr Dextrose/Water (Dextrose 5%-Water Iv Soln) 1,000 mls @ 100 mls/hr IV .Q10H [facility] Last Admin: 01/24/24 12:45 Dose: 100 mls/hr Lactated Ringer's (Lactated Ringers) 1,000 mls @ 20 mls/hr IV .Q24H [facility] Last Admin: 01/24/24 17:38 Dose: Not Given Insulin Aspart (Insulin Aspart (Novolog) 100 Unit/Ml Vial) 0 unit SQ AC-TID [facility]; Protocol Last Admin: 01/24/24 16:22 Dose: Not Given Lorazepam (Lorazepam 0.5 Mg Tab) 0.5 mg PO TID PRN PRN Reason: Anxiety Magnesium Citrate (Magnesium Citrate 296 Ml Bottle) 296 ml PO Douglas@0900 [facility] Last Admin: 01/24/24 14:13 Dose: 296 ml Naloxone HCl (Naloxone 0.4 Mg/Ml 1 Ml Vial) 0.2 mg IV Q2M PRN PRN Reason: Opioid Reversal Collagenase 250 Unit /Gm Ointment 30 Gm Tube 1 each TOPICAL DAILY [facility]; Protocol Last Admin: 01/24/24 12:36 Dose: Not Given Nystatin (Nystatin 100,000 Unit/Gm Powd 15 Gm) 1 applic TOPICAL BID [facility]; Protocol Last Admin: 01/24/24 12:51 Dose: 1 applic Ondansetron HCl (Ondansetron 4 Mg/2 Ml Vial) 4 mg IVP Q8HR PRN PRN Reason: Nausea And Vomiting Senna (Sennosides 8.6 Mg Tab) 8.6 mg PO DAILY [facility] Last Admin: 01/24/24 09:27 Dose: 8.6 mg Sodium Bicarbonate (Sodium Bicarbonate Tab 650 Mg Tab) 650 mg PO BID [facility] Last Admin: 01/24/24 09:27 Dose: 650 mg Spironolactone (Spironolactone 25 Mg Tab) 25 mg PO DAILY [facility] Last Admin: 01/24/24 09:27 Dose: 25 mg Tamsulosin HCl (Tamsulosin 0.4 Mg Cap.Er.24h) 0.4 mg PO DAILY [facility] Last Admin: 01/24/24 09:28 Dose: 0.4 mg Trazodone HCl (Trazodone Hcl 50 Mg Tab) 50 mg PO HS [facility] Last Admin: 01/23/24 20:52 Dose: 50 mg Valsartan (Valsartan 160 Mg Tab) 320 mg PO DAILY [facility] Last Admin: 01/24/24 09:27 Dose: 320 mg Social history: Former smoker. At home. Cared for by his daughter. Physical examination: VITAL SIGNS: 97.9, 58, 16, 147 x 67, 96% room air GENERAL: Laying in bed. lethargic but arousable EYES: [Pupils equal. Conjunctiva pale HEENT: External appearance of nose and ears normal, oral cavity less dry mucous membrane. NECK: JVD not raised; masses not palpable. HEART: First and second heart sounds are normal; no edema. LUNGS: Respiratory rate increased; decreased breath sounds. ABDOMEN: Soft, nontender, liver spleen not palpable, no masses palpable. Davidson catheter. Loop colostomy.-Stool present PSYCH: Will occasionally say 1 or 2 word answer e MUSCULOSKELETAL:No Clubbing/cyanosis;muscles-grossly intact. Sacral decubitus wound-pictures in the chart NEUROLOGICAL: [Cranial nerves grossly intact; no facial asymmetry, bilateral above-knee amputation INVESTIGATIONS, reviewed in the clinical context: January 24: White count 5.1 hemoglobin 8.8 platelets 319 January 22: White count 6.9 hemoglobin 8.3 January 21: Hemoglobin 7 January 17: White count 13.5 hemoglobin 8.9 platelets 499 sodium 147 potassium 3.8 creatinine 0.92 lactic acid 2.6 repeat 1.4 Troponin I 0.035 EKG tracing personally reviewed by me-poor baseline. Intraventricular block. ST-T wave changes. Chest x-ray film personally reviewed by [id number] effusion Previous studies Wound culture [December 30]: Bacteroids, acalculous species, Klebsiella pneumoniae CT abdomen pelvis: Gallstones. Moderate right hydropneumothorax with surrounding consolidation atelectasis. Assessment plan: # Acute on chronic infected sacral decubitus ulcer, unstageable, present thing we are increasing drainage. Prior debridements diverting loop colostomy-November 27, [address] Sachin Maya Deep IN r debridement--December [address] Alves January 04: IV Invanz 1 g every 24 hours, Flagyl 500 mg 3 times daily-per ID Debridement care per Dr. Maya on January 23. -Chronic right-sided hydropneumothorax. 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 Uncontrolled with hypoglycemia Levemir-hold - follow Accu-Cheks D5W IV fluids -Chronic left kidney atrophy -Chronic bilateral above-knee amputation -Decrease in sodium. Metabolic encephalopathy multifactorial. Including hypoglycemia. -Physiological bradycardia-not for any further intervention Cardiology following -Primary osteoarthritis [place] as needed - -Essential hypertension,, blood pressure running low Amlodipine, cut back to 5 mg in the morning and 2.5 mg at night. Hydralazine discontinued Diovan 320 mg daily -Severe cognitive impairment -Chronic bladder outflow obstruction BPH, with chronic Davidson catheter Flomax -Chronic congestive heart failure from systolic dysfunction EF 40 to 45% Aldactone -Peripheral neuropathy -Moderate protein calorie malnutrition decreased oral intake Ensure -DNR, per daughter Plan for discharge tomorrow. 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 Date of last positivie culture/infection: 12/31/23 - ESBL; 12/29/23 - CRE, MDRO; 10/28/22 - MRSA MDRO Source:: ESBL-TISSUE; CRE/MDRO-back, urine ;MRSA-Blood Past Surgical History: Heart Catheterization Additional Past Surgical History / Comment(s): bilateral great toes amputated, 2nd toe lt foot partial amputation, multiple debridements of venous ulcers, colonoscopy, surgery as a child for undescended testicle., ABOVE THE KNEE AMPUTATION RIGHT LEG (JUNE 2017-[facility]) Past Anesthesia/Blood Transfusion Reactions: No Reported Reaction Date of Last Stent Placement:: 10/17/2022 Past Psychological History: Anxiety, Depression Smoking Status: Former smoker Past Alcohol Use History: Unable to Obtain Past Drug Use History: Unable to Obtain
[2024-01-24 20:00] LABS: Glucose,Whole Blood 169 mg/dL (70-110)
--- NOTE | 2024-01-24 20:04 | P.PN ---
Subjective Patient seen and evaluated at bedside. Patient doing well, no complaints, minimal sacral pain. Objective - Vital Signs Vital signs: Vital Signs Temp 97.9 F 01/24/24 08:00 Pulse 58 L 01/24/24 16:00 Resp 16 01/24/24 16:00 BP 147/67 01/24/24 16:00 Pulse Ox 96 01/24/24 16:00 FiO2 Intake & Output 01/24/24 01/24/24 01/25/24 06:59 18:59 06:59 Output Total 550 3350 Balance -550 -3350 Weight 73.5 kg Output: Urine 3350 Stool 550 Other: Voiding Method Indwelling Catheter Indwelling Catheter - Exam gen: nad cv: rrr pul: non labored breathing abd: soft, non distended, non tender to palpation, no guarding or rebound tenderness sacrum: c/d/i, non malodorus - Labs CBC & Chem 7: 01/24/24 09:02 01/18/24 17:14 Labs: Abnormal Lab Results - Last 24 Hours (Table) 01/23/24 01/24/24 01/24/24 Range/Units 20:21 09:02 16:19 RBC 3.10 L (4.30-5.90) m/uL Hgb 8.8 L (13.0-17.5) gm/dL Hct 27.1 L (39.0-53.0) % RDW 16.6 H (11.5-15.5) % POC Glucose (mg/dL) 141 H 147 H (70-110) mg/dL 01/24/24 Range/Units 19:59 RBC (4.30-5.90) m/uL Hgb (13.0-17.5) gm/dL Hct (39.0-53.0) % RDW (11.5-15.5) % POC Glucose (mg/dL) 169 H (70-110) mg/dL Microbiology - Last 24 Hours (Table) 01/23/24 15:23 Gram Stain - Preliminary Other - Other Tissue Culture - Preliminary Gram Neg Bacilli Yeast 01/18/24 17:14 Blood Culture - Final Blood Assessment and Plan Assessment: 73 yo male s/p sacral debridement -continue daykins daily dressing changes -follow up with wound care for further care -stable for discharge Time with Patient: Less than 30
[2024-01-24 21:15] VITALS: TEMP 98.1
[2024-01-25 06:17] LABS: Glucose,Whole Blood 103 mg/dL (70-110)
[2024-01-25 10:41] VITALS: BP 143/63; PULSE 88; RESP 18
[2024-01-25 11:39] LABS: Glucose,Whole Blood 146 mg/dL (70-110)
--- NOTE | 2024-01-25 12:17 | P.PN ---
Subjective Progress Note Date: 01/25/24 SURGICAL PROGRESS NOTE CHIEF COMPLAINT: Sacral decubitus ulcer HISTORY OF PRESENT ILLNESS: Patient is postop day #2 status post debridement of sacral decubitus ulcer. Patient is lying in bed comfortably. Patient is scheduled to be discharged today. PHYSICAL EXAM: VITAL SIGNS: Reviewed. GENERAL: no acute distress. Pale ABDOMEN: Soft. Nondistended. Nontender. ASSESSMENT: 1. Sacral decubitus ulcer status postdebridement PLAN: -Patient can be discharged from surgical standpoint -Wound care management per wound care service and infectious disease Physician Psychological Operations Officer note has been reviewed by physician. Signing provider agrees with the documented findings, assessment, and plan of care. Objective - Vital Signs Vital signs: Vital Signs Temp 98.1 F 01/25/24 08:50 Pulse 88 01/25/24 08:50 Resp 18 01/25/24 08:50 BP 143/63 01/25/24 08:50 Pulse Ox 96 01/25/24 08:50 FiO2 Intake & Output 01/24/24 01/25/24 01/25/24 18:59 06:59 18:59 Output Total 3350 650 Balance -3350 -650 Weight 71.5 kg Output: Urine 3350 300 Stool 350 Other: Voiding Method Indwelling Catheter Indwelling Catheter Indwelling Catheter - Labs CBC & Chem 7: 01/24/24 09:02 01/18/24 17:14 Labs: Abnormal Lab Results - Last 24 Hours (Table) 01/24/24 01/24/24 01/25/24 Range/Units 16:19 19:59 11:38 POC Glucose (mg/dL) 147 H 169 H 146 H (70-110) mg/dL Microbiology - Last 24 Hours (Table) 01/23/24 15:23 Gram Stain - Preliminary Other - Other Tissue Culture - Preliminary Gram Neg Bacilli Yeast
--- NOTE | 2024-01-25 12:18 | P.PN ---
Subjective Progress Note Date: 01/25/24 Principal diagnosis: Reason for follow-up is infected sacral pressure ulcer Patient is a 73-year-old male with a past medical history significant for diabetes mellitus hypertension hyperlipidemia osteoarthritis recently admitted to the hospital status post debridement of his sacral wound there was concern for sacral osteomyelitis with the OR culture positive for ESBL Klebsiella patient did get a PICC line and was advised a 6-week course of IV Invanz patient has not been brought back to the hospital concerning for lethargy and apparently did have low hemoglobin outpatient setting noticed to have slight worsening of his sacral wound prompting this consultation. Patient is status post sharp excisional debridement of his sacral wound done on 01/23/2024, operative report did not mention purulent drainage. On today's evaluation that is 01/25/2024,the patient denies any fever or any chills, patient is breathing comfortably on room air, the patient denies chest pain shortness of breath and no significant cough, no vomiting or diarrhea has been reported by the nursing staff. No new lab has been repeated today white count was normal as of yesterday Objective - Vital Signs Vital signs: Vital Signs Temp 98.1 F 01/24/24 20:00 Pulse 59 L 01/25/24 03:54 Resp 16 01/25/24 03:54 BP 144/64 01/25/24 03:54 Pulse Ox 97 01/25/24 03:54 FiO2 Intake & Output 01/24/24 01/25/24 01/25/24 18:59 06:59 18:59 Output Total 3350 650 Balance -3350 -650 Weight 71.5 kg Output: Urine 3350 300 Stool 350 Other: Voiding Method Indwelling Catheter Indwelling Catheter - Exam GENERAL DESCRIPTION: An elderly male lying in bed in no distress RESPIRATORY SYSTEM: Unlabored breathing , decreased breath sounds at bases HEART: S1 S2 regular rate and rhythm , ABDOMEN: Soft , no tenderness Sacral pressure ulcer did have slough tissue some foul-smelling drainage - Labs CBC & Chem 7: 01/24/24 09:02 01/18/24 17:14 Labs: Abnormal Lab Results - Last 24 Hours (Table) 01/24/24 01/24/24 Range/Units 16:19 19:59 POC Glucose (mg/dL) 147 H 169 H (70-110) mg/dL Microbiology - Last 24 Hours (Table) 01/23/24 15:23 Gram Stain - Preliminary Other - Other Tissue Culture - Preliminary Gram Neg Bacilli Yeast Assessment and Plan (1) Fever Current Visit: Yes Status: Acute Code(s): R50.9 - FEVER, UNSPECIFIED SNOMED Code(s): 040839679 (2) Leukocytosis Current Visit: Yes Status: Acute Code(s): D72.829 - ELEVATED WHITE BLOOD CELL COUNT, UNSPECIFIED SNOMED Code(s): 953175937 (3) Sacral decubitus ulcer Current Visit: No Status: Acute Code(s): L89.159 - PRESSURE ULCER OF SACRAL REGION, UNSPECIFIED STAGE SNOMED Code(s): 780029887 Plan: 1patient with an infected sacral pressure ulcer concerning for sacral osteomyelitis on his last visit culture positive for ESBL Klebsiella now has been brought back to the hospital concerning for weakness did have low hemoglobin patient also noticed to have a low-grade fever elevated white count with concern for possible sacral ulcer versus urinary source 2-patient is status post surgical debridement of his sacral wound on 01/23/2024 operative report did not mention any purulent drainage 3-patient will continue with Invanz on discharge to finish 6-week course of therapy, prescription for continuation of Invanz has been provided the director case management also discussed with the patient nurse to make an appointment to see wound care in the outpatient setting as the patient will likely need weekly debridement till all the slough tissue is gone Dictation was produced using [employer] dictation software. please excuse any grammatical, word or spelling errors.
[2024-01-25] MEDS ORDERED: SODIUM HYPOCHLORITE 0.25% 480 ML BOT MISCELLANE SCH (13:15)
[2024-01-25 13:57] VITALS: BMI 21.4
--- NOTE | 2024-01-25 18:51 | P.DS ---
Providers Date of admission: 01/19/24 00:22 Expected date of discharge: 01/25/24 Attending physician: Gerson Banks Consults: 01/19/24 11:54 Consult Physician Routine Consulting Provider: Juan Del Rosario Consult Reason/Comments: infected wound Do you want consulting provider notified?: Yes 01/19/24 11:55 Consult Physician Routine Consulting Provider: Sachin Maya Consult Reason/Comments: I& D decub wound Do you want consulting provider notified?: Yes 01/20/24 12:37 Consult Physician Routine Consulting Provider: Jarett Silver Consult Reason/Comments: cardiac clearance for debridement Do you want consulting provider notified?: Yes Primary care physician: Kei Rene MD Hospital Course: Chief Complaint: Sacral decub ulcer Patient is a 73-year-old male with PMH of IDDM, hypertension, CKD stage II, chronic indwelling Davidson catheter, systolic CHF with ejection fraction of 40 to 45%, dementia, COPD , bilateral AKA was sent to the hospital for sacral decubitus ulcers. Patient has dementia and is not able to provide any reasonable history . November 27, 2023 patient underwent loop colostomy by Dr. Maya, to prevent soiling of the decubitus ulcer. December 31, 2023-wound culture.Showing Klebsiella pneumoniae with ESBL. Discharged on IV ertapenem. And Flagyl. Patient was sent in because of some drop in hemoglobin outpatient to 7.3. Patient is wound picture was sent to infectious disease Dr. Barcenas's office. Fell there was some worsening. Patient admitted for the same. Consultation to Dr. Maya's team is done for possible debridement. According to the daughter at the bedside patient's been eating well. Colostomy bag working well. January 19: Sleepy tired. Early was supposed to go down for I&D. Heart rate did drop down to the 40s. Probably physiological. Surgery would like to have a cardiology clearance. Consulted. Blood pressures running around 100 systolic. Will DC hydralazine. Also hypoglycemic. DC Lantus. Patient is n.p.o. this morning.. Will cut back amlodipine to 5 mg in the morning and 2.5 mg at night. Because of hypoglycemia patient is also put on D5W. January 20: Blood pressure medication adjusted yesterday. Blood pressure doing much better today. Patient seen by cardiology. With clearance. Deemed high risk for perioperative care. Though this is a low risk surgery itself. Patient may occasionally answer question. Hypoglycemia improved Eating small amounts with assistance January 21: Unit of blood was ordered for hemoglobin of 7. Plan for debridement tomorrow. Does answer simple questions January 22: Patient pending debridement today. Getting antibiotics. Will answer occasional questions January 23: Patient underwent deep debridement with Dr. Maya yesterday. Down to the bone. Discussed with him. For Dakin's solution dressing changes. Antibiotics per ID to continue. Plan for discharge with social work being back tomorrow. January 24: Laying in bed. Will answer occasional question. Cleared by surgery and ID for discharge. Will complete outpatient course of antibiotic. Prognosis not good Advance care planning [January 25, 2024] I spoke to patient daughter at length over the phone. That patient's quality of life is very poor. Patient only been antibiotics for a long time and still has sacral decubitus and has deteriorated. Has a colostomy. I do not see any hope of the decub ulcer improving. Patient's interaction with surrounding is poor. Daughter increased that the patient's quality is not good but she says she spoke to her brother who does not want to change the CODE STATUS but has agreed for DNR and patient going for palliative care. At this point patient remain DNR. No hospice at the present time. Time spent for this about 25 minutes Social history: Former smoker. At home. Cared for by his daughter. Physical examination: VITAL SIGNS: 98.1, 88, 18, 143 x 63, 96% room air GENERAL: Laying in bed. lethargic but arousable EYES: [Pupils equal. Conjunctiva pale HEENT: External appearance of nose and ears normal, oral cavity less dry mucous membrane. NECK: JVD not raised; masses not palpable. HEART: First and second heart sounds are normal; no edema. LUNGS: Respiratory rate increased; decreased breath sounds. ABDOMEN: Soft, nontender, liver spleen not palpable, no masses palpable. Davidson catheter. Loop colostomy.-Stool present PSYCH: Will occasionally say 1 or 2 word answer e MUSCULOSKELETAL:No Clubbing/cyanosis;muscles-grossly intact. Sacral decubitus wound-pictures in the chart NEUROLOGICAL: [Cranial nerves grossly intact; no facial asymmetry, bilateral above-knee amputation INVESTIGATIONS, reviewed in the clinical context: January 23: White count 5.1 hemoglobin 8.8 platelets 319 January 22: White count 6.9 hemoglobin 8.3 January 21: Hemoglobin 7 January 17: White count 13.5 hemoglobin 8.9 platelets 499 sodium 147 potassium 3.8 creatinine 0.92 lactic acid 2.6 repeat 1.4 Troponin I 0.035 EKG tracing personally reviewed by me-poor baseline. Intraventricular block. ST-T wave changes. Chest x-ray film personally reviewed by [id number] effusion Previous studies Wound culture [December 30]: Bacteroids, acalculous species, Klebsiella pneumoniae CT abdomen pelvis: Gallstones. Moderate right hydropneumothorax with nando rounding consolidation atelectasis. Assessment plan: # Acute on chronic infected sacral decubitus ulcer, unstageable, present thing we are increasing drainage. Prior debridements diverting loop colostomy-November 27, [address] Sachin Maya Deep IN r debridement--December [address] Alves January 04: IV Invanz 1 g every 24 hours, -per ID-to finish total outpatient 6 weeks of treatment Debridement care per Dr. Maya on January 23. -Chronic right-sided hydropneumothorax. 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 Uncontrolled with hypoglycemia Levemir-hold - follow Accu-Cheks D5W IV fluids -Chronic left kidney atrophy -Chronic bilateral above-knee amputation -Decrease in sodium. Metabolic encephalopathy multifactorial. Including hypoglycemia. -Physiological bradycardia-not for any further intervention Cardiology following -Primary osteoarthritis [place] as needed - -Essential hypertension,, blood pressure running low Amlodipine, 5 mg twice daily. Hydralazine discontinued Diovan 320 mg daily -Severe cognitive impairment -Chronic bladder outflow obstruction BPH, with chronic Davidson catheter Flomax -Chronic congestive heart failure from systolic dysfunction EF 40 to 45% Aldactone -Peripheral neuropathy -Moderate protein calorie malnutrition decreased oral intake Ensure -DNR, per daughter Disposition: Home with daughter 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 Date of last positivie culture/infection: 12/31/23 - ESBL; 12/29/23 - CRE, MDRO; 10/28/22 - MRSA MDRO Source:: ESBL-TISSUE; CRE/MDRO-back, urine ;MRSA-Blood Past Surgical History: Heart Catheterization Additional Past Surgical History / Comment(s): bilateral great toes amputated, 2nd toe lt foot partial amputation, multiple debridements of venous ulcers, colonoscopy, surgery as a child for undescended testicle., ABOVE THE KNEE AMPUTATION RIGHT LEG (JUNE 2017-[facility]) Past Anesthesia/Blood Transfusion Reactions: No Reported Reaction Date of Last Stent Placement:: 10/17/2022 Past Psychological History: Anxiety, Depression Smoking Status: Former smoker Past Alcohol Use History: Unable to Obtain Past Drug Use History: Unable to Obtain Plan - Discharge Summary Discharge Rx Participant: Yes New Discharge Prescriptions: Continue Spironolactone [Aldactone] 25 mg PO DAILY tab Ferrous Sulfate [Iron (65 MG Elemental)] 325 mg PO DAILY Nystatin 100,000 Unit/gm Powd [Mycostatin Powder] 1 applic TOPICAL BID each metroNIDAZOLE [Flagyl] 500 mg PO TID #120 tab Tamsulosin [Flomax] 0.4 mg PO DAILY Glycopyrrolate 1 mg PO TID PRN PRN Reason: drooling Clopidogrel [Plavix] 75 mg PO DAILY Atorvastatin Calcium [Lipitor] 80 mg PO HS Ertapenem [INVanz] 1 gm IVPB Q24H #40 each Valsartan [Diovan] 320 mg PO DAILY Changed amLODIPine [Norvasc] 5 mg PO BID #30 tab Discontinued hydrALAZINE HCL 10 mg PO TID No Action traZODone HCL 50 mg PO HS Sennosides [Senokot] 8.6 mg PO DAILY Insulin Lispro [humaLOG Kwikpen] See Protocol SQ AC-TID Gabapentin [Neurontin] 300 mg PO BID Insulin Glargine,Hum.rec.anlog [Lantus Solostar Pen] 12 units SQ HS Magnesium Citrate [Citrate of Magnesia] 296 ml PO RING Aspirin 81 mg PO DAILY Sodium Bicarbonate Tab 650 mg PO BID #60 tab HYDROcodone/APAP 7.5-325MG [[place] 7.5-325] 1 tab PO Q6HR PRN #12 tab PRN Reason: Pain Acetaminophen Tab [Tylenol] 500 mg PO Q6H PRN PRN Reason: Pain Famotidine [Pepcid] 20 mg PO BID Collagenase [Santyl Ointment] 1 applic TOPICAL DAILY #30 gm LORazepam [Ativan] 0.5 mg PO TID PRN PRN Reason: Anxiety Discharge Medication List traZODone HCL 50 mg PO HS 11/09/17 [History] Tamsulosin [Flomax] 0.4 mg PO DAILY 09/29/22 [History] Clopidogrel [Plavix] 75 mg PO DAILY 10/02/23 [History] Glycopyrrolate 1 mg PO TID PRN 10/02/23 [History] Sennosides [Senokot] 8.6 mg PO DAILY 10/02/23 [History] Atorvastatin Calcium [Lipitor] 80 mg PO HS 11/10/23 [History] Insulin Lispro [humaLOG Kwikpen] See Protocol SQ AC-TID 11/10/23 [History] HYDROcodone/APAP 7.5-325MG [[place] 7.5-325] 1 tab PO Q6HR PRN #12 tab 12/02/23 [Rx] Spironolactone [Aldactone] 25 mg PO DAILY tab 12/02/23 [Rx] Acetaminophen Tab [Tylenol] 500 mg PO Q6H PRN 12/29/23 [History] Aspirin 81 mg PO DAILY 12/29/23 [History] Famotidine [Pepcid] 20 mg PO BID 12/29/23 [History] Ferrous Sulfate [Iron (65 MG Elemental)] 325 mg PO DAILY 12/29/23 [History] Gabapentin [Neurontin] 300 mg PO BID 12/29/23 [History] Insulin Glargine,Hum.rec.anlog [Lantus Solostar Pen] 12 units SQ HS 12/29/23 [History] Magnesium Citrate [Citrate of Magnesia] 296 ml PO RING 12/29/23 [History] Nystatin 100,000 Unit/gm Powd [Mycostatin Powder] 1 applic TOPICAL BID each 01/04/24 [Rx] Sodium Bicarbonate Tab 650 mg PO BID #60 tab 01/04/24 [Rx] Collagenase [Santyl Ointment] 1 applic TOPICAL DAILY #30 gm 01/05/24 [Rx] Ertapenem [INVanz] 1 gm IVPB Q24H #40 each 01/05/24 [Rx] metroNIDAZOLE [Flagyl] 500 mg PO TID #120 tab 01/05/24 [Rx] LORazepam [Ativan] 0.5 mg PO TID PRN 01/19/24 [History] Valsartan [Diovan] 320 mg PO DAILY 01/19/24 [History] amLODIPine [Norvasc] 5 mg PO BID #30 tab 01/25/24 [Rx] Follow up Appointment(s)/Referral(s): Kei Rene MD [Primary Care Provider] - 1-2 days Sachin Maya DO [Doctor of Osteopathic Medicine] - 2 Weeks [facility] [NON-STAFF] - 1 Week Juan Del Rosario MD [STAFF PHYSICIAN] - 2 Weeks Patient Instructions/Handouts: Urinary Tract Infection in Older Adults (DC) Activity/Diet/Wound Care/Special Instructions: Sacral wound to be changed daily with [place] moistened gauze, cover with a dry dressing or foam. To go to the wound care clinic for weekly evaluation. Discharge Disposition: HOME SELF-CARE
--- NOTE | 2024-01-29 11:13 | CDI ---
Documentation Clarification Form Date: 01/29/2024 10:37:58 AM From: Sharon Ratliff Phone: Admit Date: 01/19/2024 12:22:00 AM Patient Name: Reid Frost Visit Number: [id number] Discharge Date: 01/25/2024 01:55:00 PM ATTENTION: The Clinical Documentation Specialists (CDI) and [facility] Coding Staff appreciate your assistance in clarifying documentation. Please respond to the clarification below the line at the bottom and electronically sign. The CDI & [facility] Coding staff will review the response and follow-up if needed. Please note: Queries are made part of the Legal Health Record. If you have any questions, please contact the author of this message via ITS. Doctor/Provider: Gerson Banks UTI is documented per Consult 01/20 and Progress Note 01/21 and patient has Davidson. Additional clarification regarding the etiology of the UTI is requested. History/Risk Factors: 73yo M, ACsacral decubitus ulcer, unstageable,colostomy, Chronic RThydropneumothorax, anemia of CD, DMI w chronicpancreatic atrophy and +/- glucose, chronicLT kidney atrophy, CKD II, Metabolic encephalopathy, OA, HTN, dementia, BPH w LUTZ/Davidson, CSHF, mod PCM, cain AKA, former smoker, bedridden Clinical Indicators: Yellow, cloudy urine, trace blood, WBC urine 57, RBC >182, Bacteria urine few, mucus moderate, budding yeast many Treatment: Patient only been antibiotics for a long time Please clarify the etiology of the UTI, if known: [ + ] Davidson catheter [ ] UTI not related to catheter/urostomy [ ] Other condition, please specify [ ] Unable to determine (Template Last Revised: May 2020) MTDD
== END 2024-01-25 13:55 | disposition home or self-care (01) | DRG 579 ==
LOC: EC 16:51 → 3SCARD 01-19 00:22
PROVIDERS: ADMIT Hospitalist; ATTEND Hospitalist
PROC: 02HV33Z Insertion of Infusion Device into Superior Vena Cava, Percutaneous Approach (ICD-10-PCS; principal; 2024-01-18)
PROC: 0KBP0ZZ Excision of Left Hip Muscle, Open Approach (ICD-10-PCS; 2024-01-23)
PROC: 0KBN0ZZ Excision of Right Hip Muscle, Open Approach (ICD-10-PCS; 2024-01-23)
DX: L89.153 Pressure ulcer of sacral region, stage 3 (principal); G93.41 Metabolic encephalopathy; T83.511A Infection and inflammatory reaction due to indwelling urethral catheter, initial encounter; E44.0 Moderate protein-calorie malnutrition; I31.39 Other pericardial effusion (noninflammatory); I50.22 Chronic systolic (congestive) heart failure; I13.0 Hypertensive heart and chronic kidney disease with heart failure and stage 1 through stage 4 chronic kidney disease, or unspecified chronic kidney disease; E87.20 Acidosis, unspecified; J94.8 Other specified pleural conditions; N13.8 Other obstructive and reflux uropathy; Z16.12 Extended spectrum beta lactamase (ESBL) resistance; N39.0 Urinary tract infection, site not specified; Z68.1 Body mass index [BMI] 19.9 or less, adult; Z66 Do not resuscitate; Z51.5 Encounter for palliative care; J44.9 Chronic obstructive pulmonary disease, unspecified; Z93.3 Colostomy status; Z89.611 Acquired absence of right leg above knee; Z89.612 Acquired absence of left leg above knee; Z79.4 Long term (current) use of insulin; I70.203 Unspecified atherosclerosis of native arteries of extremities, bilateral legs; F03.90 Unspecified dementia, unspecified severity, without behavioral disturbance, psychotic disturbance, mood disturbance, and anxiety; I48.0 Paroxysmal atrial fibrillation; E10.22 Type 1 diabetes mellitus with diabetic chronic kidney disease; Z53.8 Procedure and treatment not carried out for other reasons; E10.51 Type 1 diabetes mellitus with diabetic peripheral angiopathy without gangrene; E10.69 Type 1 diabetes mellitus with other specified complication; K86.89 Other specified diseases of pancreas; B96.1 Klebsiella pneumoniae [K. pneumoniae] as the cause of diseases classified elsewhere; D63.1 Anemia in chronic kidney disease; E78.5 Hyperlipidemia, unspecified; N18.2 Chronic kidney disease, stage 2 (mild); M19.041 Primary osteoarthritis, right hand; M19.042 Primary osteoarthritis, left hand; N26.1 Atrophy of kidney (terminal); I87.8 Other specified disorders of veins; N40.1 Benign prostatic hyperplasia with lower urinary tract symptoms; Z79.02 Long term (current) use of antithrombotics/antiplatelets; Z79.82 Long term (current) use of aspirin; I25.10 Atherosclerotic heart disease of native coronary artery without angina pectoris; R00.1 Bradycardia, unspecified; Y73.1 Therapeutic (nonsurgical) and rehabilitative gastroenterology and urology devices associated with adverse incidents; Y84.6 Urinary catheterization as the cause of abnormal reaction of the patient, or of later complication, without mention of misadventure at the time of the procedure; Z87.891 Personal history of nicotine dependence; Z79.899 Other long term (current) drug therapy; Z86.14 Personal history of Methicillin resistant Staphylococcus aureus infection; Z95.5 Presence of coronary angioplasty implant and graft; Z74.01 Bed confinement status; Z86.19 Personal history of other infectious and parasitic diseases
CPT/HCPCS: 36415; 51702; 71046; 80053; 81001; 83605; 83735; 84484; 85025; 85027; 85610; 85730; 86850; 86900; 86901; 86920; 87040; 87070; 87075; 87205; 93005; 94760; 96361; 96365; 96366; 96367; 96372; 96375; 99291

== ENCOUNTER 2024-02-15 19:53 | Emergency (ER) | payer MEDICARE ==
[2024-02-15 19:58] VITALS: PULSE 0; RESP 0; TEMP 99.3
[2024-02-15 20:01] LABS: Glucose,Whole Blood 228 mg/dL (70-110)
--- NOTE | 2024-02-15 20:21 | ED ---
General Adult HPI - General Chief complaint: Cardiac Arrest/CPR Stated complaint: Seizure Source: EMS Mode of arrival: EMS - History of Present Illness Initial comments: Dictation was produced using [employer] dictation software. please excuse any grammatical, word or spelling errors. Chief Complaint: 73-year-old male with seizure History of Present Illness: Patient 73-year-old debilitated male with multiple comorbidities presents to the emergency department for seizure. History present illness obtained from EMS. EMS states that patient had witnessed seizure at home. Upon arrival EMS was unable to get a blood pressure. He states that he was posturing. They did report that he had a pulse. Patient has history of ESRD gets dialysis. Unable to obtain ROS secondary to mental status - Related Data Home Medications Medication Instructions Recorded Confirmed traZODone HCL 50 mg PO HS 11/09/17 01/19/24 Tamsulosin [Flomax] 0.4 mg PO DAILY 09/29/22 01/19/24 Clopidogrel [Plavix] 75 mg PO DAILY 10/02/23 01/19/24 Glycopyrrolate 1 mg PO TID PRN 10/02/23 01/19/24 Sennosides [Senokot] 8.6 mg PO DAILY 10/02/23 01/19/24 Atorvastatin Calcium [Lipitor] 80 mg PO HS 11/10/23 01/19/24 Insulin Lispro [humaLOG Kwikpen] See Protocol SQ AC-TID 11/10/23 01/19/24 Acetaminophen Tab [Tylenol] 500 mg PO Q6H PRN 12/29/23 01/19/24 Aspirin 81 mg PO DAILY 12/29/23 01/19/24 Famotidine [Pepcid] 20 mg PO BID 12/29/23 01/19/24 Ferrous Sulfate [Iron (65 MG 325 mg PO DAILY 12/29/23 01/19/24 Elemental)] Gabapentin [Neurontin] 300 mg PO BID 12/29/23 01/19/24 Insulin Glargine,Hum.rec.anlog 12 units SQ HS 12/29/23 01/19/24 [Lantus Solostar Pen] Magnesium Citrate [Citrate of 296 ml PO RING 12/29/23 01/19/24 Magnesia] LORazepam [Ativan] 0.5 mg PO TID PRN 01/19/24 01/19/24 Valsartan [Diovan] 320 mg PO DAILY 01/19/24 01/19/24 Previous Rx's Medication Instructions Recorded HYDROcodone/APAP 7.5-325MG [[place] 1 tab PO Q6HR PRN #12 tab 12/02/23 7.5-325] Spironolactone [Aldactone] 25 mg PO DAILY tab 12/02/23 Nystatin 100,000 Unit/gm Powd 1 applic TOPICAL BID each 01/04/24 [Mycostatin Powder] Sodium Bicarbonate Tab 650 mg PO BID #60 tab 01/04/24 Collagenase [Santyl Ointment] 1 applic TOPICAL DAILY #30 gm 01/05/24 Ertapenem [INVanz] 1 gm IVPB Q24H #40 each 01/05/24 metroNIDAZOLE [Flagyl] 500 mg PO TID #120 tab 01/05/24 amLODIPine [Norvasc] 5 mg PO BID #30 tab 01/25/24 Allergies Allergy/AdvReac Type Severity Reaction Status Date / Time No Known Allergies Allergy Verified 01/19/24 10:06 Review of Systems ROS Statement: Those systems with pertinent positive or pertinent negative responses have been documented in the HPI. ROS Other: All systems not noted in ROS Statement are negative. 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 Date of last positivie culture/infection: 12/31/23 - ESBL; 12/29/23 - CRE, MDRO; 10/28/22 - MRSA MDRO Source:: ESBL-TISSUE; CRE/MDRO-back, urine ;MRSA-Blood Past Surgical History: Heart Catheterization Additional Past Surgical History / Comment(s): bilateral great toes amputated, 2nd toe lt foot partial amputation, multiple debridements of venous ulcers, colonoscopy, surgery as a child for undescended testicle., ABOVE THE KNEE AMPUTATION RIGHT LEG (JUNE 2017-[facility]) Past Anesthesia/Blood Transfusion Reactions: No Reported Reaction Date of Last Stent Placement:: 10/17/2022 Past Psychological History: Anxiety, Depression Smoking Status: Former smoker Past Alcohol Use History: Unable to Obtain Past Drug Use History: Unable to Obtain - Past Family History Father Family Medical History: Cancer Additional Family Medical History / Comment(s): Father from brain cancer Mother Family Medical History: Eye Disorder Additional Family Medical History / Comment(s): Glaucoma. Mother is . General Exam - General Exam Comments Initial Comments: PHYSICAL EXAM: General Impression: Obtunded, pulseless, pale HEENT: Normocephalic atraumatic, extra-ocular movements intact, pupils equal and reactive to light bilaterally, dry mucous membranes Cardiovascular: Pulseless Chest: Bilateral lung sounds with BVM Abdomen: abdomen soft, non-tender, non-distended, no organomegaly, colostomy in place Musculoskeletal: Amputated bilaterally lower extremities Motor: Flaccid Neurological: 4 mm pupils unreactive to light, no movement, no response Course Vital Signs 02/15/24 19:54 Temperature 99.3 F Pulse Rate 0 L Respiratory 0 L Rate O2 Sat by Pulse 81 L Oximetry - Reevaluation(s) Reevaluation #1: 02/15/24 20:19 Patient received in trauma bay #2. He was obtunded at the bedside found to be pulseless. CPR was started at 752. Given patient's history of ESRD there was concern of hyperkalemia. Patient was pulseless electrical activity upon initial evaluation. After several cycles of CPR including multiple rounds of epinephrine, calcium and bicarbonate he did convert into ventricular fibrillation. Defibrillation was attempted on multiple occasions. After 20 minutes of CPR with no change or return of spontaneous circulation efforts were discontinued. Cardiac arrest secondary to intractable V-fib. Ultrasound was used at the bedside showing no cardiac activity. Reevaluation #2: 02/15/24 21:28 Family was notified of patient's passing. trade mark examiner was contacted. Procedures - Intubation Laryngoscope: fiber optic video scope Size: 3 Assist Device Used: fiber optic device ET Tube Size: 7.5 ET Tube Uncuffed: No Tube Secured Depth (cm): 23 Tube Secured Location: teeth Tube Placement Confirmation: visualized tube passing through cords, equal breath sounds bilaterally, no breath sounds over epigastrium, confirmation by capnometry Patient Tolerated Procedure: well Medical Decision Making - Medical Decision Making Was pt. sent in by a medical professional or institution (, PA, COOLER TENDER, urgent care, hospital, or fci...) When possible be specific @ -No Did you speak to anyone other than the patient for history (EMS, parent, family, police, friend...)? What history was obtained from this source @ -History present illness obtained from EMS Did you review nursing and triage notes (agree or disagree)? Why? @ -I reviewed and agree with nursing and triage notes Were old charts reviewed (outside hosp., previous admission, EMS record, old E KG, old radiological studies, urgent care reports/EKG's, fci records)? Report findings @ -No old charts were reviewed Differential Diagnosis (chest pain, altered mental status, abdominal pain women, abdominal pain men, vaginal bleeding, musculoskeletal, weakness, fever, dyspnea, syncope, headache, dizziness, GI bleed, back pain, seizure, CVA, palpatations, mental health)? @ -Cardiac arrest, V-fib arrest, A-fib RVR, hypoxemia EKG interpreted by me (3pts min.). @ -None done X-rays interpreted by me (1pt min.). @ -None done CT interpreted by me (1pt min.). @ -None done U/S interpreted by me (1pt. min.). @ -None done What testing was considered but not performed or refused? (CT, X-rays, U/S, labs)? Why? @ -None What meds were considered but not given or refused? Why? @ -None Was smoking cessation discussed for >3mins.? @ -No Were there social determinants of health that impacted care today? How? (Homelessness, low income, unemployed, alcoholism, drug addiction, transpor tation, low edu. Level, literacy, decrease access to med. care, shelter, rehab)? @ -No Was there de-escalation of care discussed even if they declined (Discuss DNR or withdrawal of care, Hospice)? DNR status @ -No What co-morbidities impacted this encounter? (DM, HTN, Smoking, COPD, CAD, Cancer, CVA, ARF, Chemo, Hep., AIDS, mental health diagnosis, sleep apnea, morbid obesity)? @ -None Was patient admitted / discharged? Hospital course, mention meds given and route, prescriptions, significant lab abnormalities, going to OR and other pertinent info. @ -73-year-old male presents to the ER after cardiac arrest. Patient was pulseless. CPR was performed for approximately 20 minutes. Patient had intractable V-fib. Please see code sheet for further detail. CPR efforts were discontinued after multiple rounds of CPR, epi and defibrillation. [id number] bedside ultrasound showed no cardiac activity. Time of was pronounced at 8:12 PM Did you discuss the management of the patient with other professionals (professionals i.e. , PA, COOLER TENDER, lab, RT, psych nurse, social insurance adviser, jet man, teacher, conservation officer, social work case manager)? Give summary @ -Case discussed with medical office manager Was critical care preformed (if so, how long)? @ -Yes, 77 minutes Undiagnosed new problem with uncertain prognosis? @ -No Drug Therapy requiring intensive monitoring for toxicity (Heparin, Nitro, Insuli n, Cardizem)? @ -No Were any procedures done? @ -No Diagnosis/symptom? Acute, or Chronic, or Acute on Chronic? Uncomplicated (without systemic symptoms) or Complicated (systemic symptoms)? @ -Cardiac arrest Side effects of treatment? @ -No Exacerbation, Progression, or Severe Exacerbation? @ -No Poses a threat to life or bodily function? How? (Chest pain, [place], [place], pneumonia, PE, COPD, DKA, ARF, appy, cholecystitis, CVA, Diverticulitis, Homicidal, Suicidal, threat to staff... and all critical care pts) @ -Yes - Lab Data Lab Results 02/15/24 Range/Units 20:00 POC Glucose (mg/dL) 228 H (70-110) mg/dL POC Glu Practice Assistant ID Luis Escamilla Disposition Clinical Impression: Sudden cardiac Disposition: Referrals: Kei Rene MD [Primary Care Provider] - 1-2 days Time of Disposition: 21:32 Preliminary Cause of : cardiac arrest
== END 2024-02-15 22:30 | disposition expired ==
LOC: EC 19:53
DX: I46.9 Cardiac arrest, cause unspecified (principal); Z87.891 Personal history of nicotine dependence
CPT/HCPCS: 36415; 92950; 99285